=== PATIENT | male | born 1955 | race Caucasian/White ===

== ENCOUNTER → 2016-07-08 | Outpatient (CLI) | payer MEDICARE ==
[~2016-07-08] MED LIST: AMIO200T50 PO; AMIT25TA9 PO; ASP81TEC PO; ATRV10T PO; BUDE6HFA IH; CLPD75T PO; CRV25T PO; DIGO250T PO; DILT240C PO; DLT240CCR PO; ENLP2.5T PO; FLUT16SP22 NS; IPRA4AER INH; MAGN400C PO; MELO-198 PO; NAPR220C PO; NAPR220T76 PO; OXYGEN NSEACH; PNT40TEC PO; RT-COMBINH IH; TIOT18CA IH; TRAM50TA2 PO; WARF4TAB7 PO; WRF2.5T PO; WRF5T PO
[2016-07-08 08:59] LABS: ALANINE AMINOTRANSFERASE 25 U/L (0-55); ALBUMIN 4.2 G/DL (3.2-4.5); ANION GAP 8 MMOL/L (5-14); ASPARTATE AMINO TRANSFERASE 29 U/L (5-34); BILIRUBIN,TOTAL 0.7 MG/DL (0.1-1.0); BLOOD UREA NITROGEN 7 MG/DL (7-18); BUN/CREATININE RATIO 8; CALCIUM 9.3 MG/DL (8.5-10.1); CARBON DIOXIDE 31 MMOL/L (21-32); CHLORIDE 103 MMOL/L (98-107); CHOLESTEROL 147 MG/DL (< 200); CREATININE SERUM 0.83 MG/DL (0.60-1.30); DIRECT LDL 82 MG/DL (1-129); GFR ESTIMATED > 60; GLUCOSE 100 MG/DL (70-105); POTASSIUM 4.4 MMOL/L (3.6-5.0); SODIUM 142 MMOL/L (135-145); TOTAL PROTEIN 7.2 G/DL (6.4-8.2); TRIGLYCERIDES 84 MG/DL (<150); VLDL CHOLESTEROL 17 MG/DL (5-40)
== END ==
LOC: LAB 08:24
PROVIDERS: ATTEND Physician Assistant
DX: I25.10 Atherosclerotic heart disease of native coronary artery without angina pectoris (principal); I10 Essential (primary) hypertension; E78.2 Mixed hyperlipidemia
CPT/HCPCS: 36415; 80053; 80061

== ENCOUNTER → 2017-05-10 | Outpatient (CLI) | payer MEDICARE, MEDICAID | LOC: CARD 11:40 | PROVIDERS: ATTEND Internal Medicine Cardiovascular Disease | DX: I25.10 Atherosclerotic heart disease of native coronary artery without angina pectoris (principal); I11.0 Hypertensive heart disease with heart failure; I50.9 Heart failure, unspecified; R07.89 Other chest pain; E78.2 Mixed hyperlipidemia; R06.02 Shortness of breath; I08.1 Rheumatic disorders of both mitral and tricuspid valves | CPT/HCPCS: 93306 ==

== ENCOUNTER → 2017-09-17 | Outpatient (CLI) | payer MEDICARE, MEDICAID ==
[2017-09-17 11:44] LABS: ALANINE AMINOTRANSFERASE 42 U/L (0-55); ALBUMIN 4.3 GM/DL (3.2-4.5); ALKALINE PHOSPHATASE 68 U/L (40-136); BILIRUBIN,TOTAL 0.7 MG/DL (0.1-1.0); BUN/CREATININE RATIO 9; CALCIUM 9.7 MG/DL (8.5-10.1); CARBON DIOXIDE 27 MMOL/L (21-32); CHLORIDE 102 MMOL/L (98-107); CHOLESTEROL 152 MG/DL (< 200); CREATININE SERUM 0.78 MG/DL (0.60-1.30); GFR ESTIMATED > 60; GLUCOSE 116 MG/DL (70-105); HDL CHOLESTEROL 57 MG/DL (40-60); POTASSIUM 4.4 MMOL/L (3.6-5.0); SODIUM 138 MMOL/L (135-145); TOTAL PROTEIN 7.6 GM/DL (6.4-8.2); TRIGLYCERIDES 57 MG/DL (<150); VLDL CHOLESTEROL 11 MG/DL (5-40)
== END ==
LOC: LAB 11:07
PROVIDERS: ATTEND Physician Assistant
DX: I25.10 Atherosclerotic heart disease of native coronary artery without angina pectoris (principal); I11.0 Hypertensive heart disease with heart failure; I50.9 Heart failure, unspecified; R06.02 Shortness of breath; E78.2 Mixed hyperlipidemia
CPT/HCPCS: 36415; 80053; 80061

== ENCOUNTER → 2017-09-29 | Outpatient (CLI) | payer MEDICAID, MEDICARE ==
[~2017-09-29] VITALS: Ht 182.9 cm; Wt 79.4 kg
[~2017-09-29] MED LIST changes: +CATHETER FLUSH 10 ML SYR IV PRN; +REGADENOSON 0.4 MG/5 ML SYR (LEXISCAN) IV ONE
[2017-09-29 09:05] VITALS: BP 151/97
[2017-09-29 09:07] VITALS: BP 140/90
--- NOTE | 2017-09-29 16:20 | STRESS TEST ---
DATE OF SERVICE: 09/29/2017 LEXISCAN MYOVIEW STRESS TEST REPORT REFERRING PHYSICIAN: Dr. Jackson, [facility]. Baseline heart rate is 84, baseline blood pressure 140/96. Baseline EKG is 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 with no ischemic changes. In summary, the patient received 10.55 mCi of technetium-99 Myoview and the resting images were obtained. Then, the patient received 0.4 mg of Lexiscan followed by 29.3 mCi of technetium-99 Myoview. Throughout the test, there were no EKG changes. The resting and stress images were reviewed and compared in the short axis, horizontal long axis, and vertical long axis views. Review of the images showed good radiotracer uptake with small left ventricle. Mild decreased uptake at the apical region with no significant reversibility. SSS is 2, SDS 1, TID value is 1.11. On the gated images, the left ventricle is normal in size with normal contractility. Calculated ejection fraction 61%. CONCLUSION: 1. The patient tolerated Lexiscan well. 2. Baseline 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 persisted throughout test. 3. Mild decreased uptake at the apical region with no significant reversibility. No significant ischemia or infarction was noted. 4. Normal left ventricular size with normal contractility. Calculated ejection fraction 61%. Gated images are unreliable due to underlying 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. Job ID: [id number] DocumentID: [id number] Dictated Date: 09/29/2017 13:52:09 [employer] Date: 09/29/2017 16:19:15 Dictated By: AIDAN PASTOR MD
== END ==
LOC: CARD 07:04
PROVIDERS: ATTEND Physician Assistant
DX: I25.10 Atherosclerotic heart disease of native coronary artery without angina pectoris (principal); I11.0 Hypertensive heart disease with heart failure; I50.9 Heart failure, unspecified; E78.2 Mixed hyperlipidemia; R06.02 Shortness of breath
CPT/HCPCS: 78452; 93017

== ENCOUNTER 2018-03-30 12:54 | Emergency (ER) | payer MEDICARE ==
[~2018-03-30] VITALS: Ht 193 cm; Wt 69.9 kg
[~2018-03-30 12:54] MED LIST changes: +AMLO10TA7 PO; +ATOR10TA66 PO; +BUDE10.2 INH; +CARV12.53 PO; -CATHETER FLUSH 10 ML SYR IV PRN; +ENAL20TA PO; +FLUT9.9S NS; +LORA10TA76 PO; +NAPR220T66 PO; -REGADENOSON 0.4 MG/5 ML SYR (LEXISCAN) IV ONE; +RIVA20TA PO; +RT-ALBUINH INH; +TIOT18CA2 INH
--- NOTE | 2018-03-30 13:00 | NUR ---
PT AND REPORT PT HAD SPENT 133 AT [facility] AND WAS DISCHARGED ON FEBRUARY 21, 2018. PT REPORTS HE HAD A VATS, PEG TUBE, AND SENT HOME WITH CHEST TUBES. PT REPORTS COUGH THAT STARTED A WEEK AFTER DISCHARGE BUT STARTED COUGHING UP BLOOD THIS AM. PT ALSO REPORTS HE HAS A "SPOT" ON RIGHT LUNG DOCTORS ARE MONITORING.
--- OUTSIDE RECORDS SUMMARY | 2018-03-30 13:57 | XMS REPORT | Clinical Summary ---
Author Author [facility] Organization [facility] Address Unknown Phone Unavailable Care Team Providers Care Circular Sawyer Helper Name Role Phone SebMai Unavailable Unavailable Samir Lopez MD Unavailable Unavailable Samara Lugo RN Unavailable Unavailable Flavio Jackson MD PCP Source Comments Some departments are not documenting in the electronic medical record. If you do not see the information that you expected, contact Release of Information in the Health Information Management department at [phone] for further assistance in locating additional records.[facility] Allergies No Known Allergies Medications End Date Status Medication Sig Dispensed Refills Start Date Active acetaminophen (TYLENOL) Take two 0 500 mg tablet tablets by 9 mouth three times daily as needed. Max of 4,000 mg of acetaminophen in 24 hours. Active ondansetron (ZOFRAN) 4 mg Take one 90 tablet 1 tablet tablet by 9 mouth every 8 hours as needed for Nausea or Vomiting. Active albuterol (PROAIR HFA, Inhale two 6.7 g 0 VENTOLIN HFA, OR puffs by 9 PROVENTIL HFA) 90 mouth into mcg/actuation inhaler the lungs twice daily. Shake well before use. Active umeclidinium-vilanterol Inhale one 60 each 2 (ANORO ELLIPTA) 62.5-25 puff by mouth 9 mcg/actuation inhaler into the lungs daily. Active metoprolol tartrate Take one-half 90 tablet 0 (LOPRESSOR) 25 mg tablet tablet by 9 mouth twice daily. Active digoxin (LANOXIN) 125 mcg Take one 90 tablet 0 tablet tablet by 9 mouth daily. Active vitamin A & D oint Apply 113 g 0 topically to 9 affected area daily. Active guaiFENesin LA (MUCINEX) Take one 180 tablet 0 600 mg tablet tablet by 9 mouth twice daily. Active furosemide (LASIX) 20 mg Take one 90 tablet 1 tablet tablet by 9 mouth twice daily. Active magnesium chloride (MAG Take one 90 each 1 DELAY) 535 mg (64mg tablet by 9 elemental) tablet mouth twice daily. Active vitamins, multi Take one 30 tablet 2 w/minerals 9 mg iron-400 tablet by 9 mcg tab mouth daily. Active fluticasone (FLONASE) 50 Apply two 48 g 3 mcg/actuation nasal spray sprays to 9 each nostril as directed daily. Shake bottle gently before using. Active amoxicillin/K clavulanate Take one 28 tablet 0 (AUGMENTIN) 875/125 mg tablet by 9 tablet mouth twice daily with meals. Take with food. Active melatonin 3 mg tab Take one 0 tablet by 9 mouth at bedtime daily. Active pantoprazole DR Take one 60 tablet 0 (PROTONIX) 40 mg tablet tablet by 9 mouth twice daily. Active bacitracin 500 unit/g apply to ear 28 g 0 topical ointment wounds twice 9 per day Active potassium chloride 20 Take 15 mL by 473 mL 1 mEq/15 mL oral solution mouth daily. 9 Active isavuconazonium sulfate Take two 60 capsule 1 (CRESEMBA) 186 mg capsules by 9 capsuleIndications: mouth daily. aspergillosis 03/04/2018 Discontinued isavuconazonium sulfate Take two 14 capsule 0 (CRESEMBA) 186 mg capsule capsules by 9 mouth daily until gone. 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 Godfrey. CHF (congestive heart failure) 08/15/2012 CAD (coronary artery disease) 08/15/2012 Overview: 03/18/2012 - Cardiac Catheterization: PTCA and PCI using 3.0 x 20mm Promus to the midRCA. ([facility]). Paroxysmal 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 08/15/2012 Overview: 03/17/2012 - ECHO: LVEF ~ 25%. LA size=4.1 cm. Four chamber dilatation with diffuse LV hypokinesia more pronounced at the anterior wall, anteroseptum systolic function is reduced. Moderate MR. Moderate TR. Estimated PAP ~ 35 mmHg. (Dr. Douglass). 12/01/2012 - KHLOE + DCCV: Successful DC cardioversion of 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 to sinus rhythm. 05/04/13 - EPS + RFA: PVAI AFIB Ablation: RFA PV isolation for Paroxysmal Atrial fibrillation The left atrium was mildly enlarged. The PV anatomy was normal with 4 independent veins. . The LSPV had robust and resistant connections requiring prolonged ablation. LA mildly dilated only. Normal AV node function, no evidence of accessory pathway. AFL at 260ms was induced with burst pacing , confirmed to be typical AFL by entrainment from CTI - then CTI ablation was done. CTI ablation with bi-directional isthmus block 05/17/2013 - ECHO: LVEF ~ 50%. LA size=4.8cm. Normal LV size and function. Mild MR and TR. PAP ~ 40 mmHg. (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 Xarelto initiated LA thrombus 08/15/2012 Overview: 06/01/2012 - KHLOE: Dilated LV with EF ~ 30%. Echogenic density in the MARISELA probably representing thrombose persisted compared to the previous study. Mild MR. ([facility]) 07/27/2012 - KHLOE: Persistence of echogenic density in the MARISELA probably representing thrombus in the proximal portion of the LAAA. Dilated LV with EF ~ 25%. ([facility]). 12/01/2012 - KHLOE: Normal left ventricular systolic function with an EF of 50-55%. No regional wall motion abnormalities. Normal right ventricular size and function. Left atrial appendage was free of thrombus. No evidence of PFO. Trace MR. Trace TR. Mildly dilated aortic root measuring 4.0 cm at the Sinus of Valsalva. 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 (current) use of antibiotics 03/04/2018 Orders Only Infectious Diseases Mohan Ayala MD 03/03/2018 Hospital Radiology Encounter Mohan Ayala MD 03/03/2018 Hospital Radiology Encounter Mohan Ayala MD Empyema of right pleural space (HCC) (Primary Dx); Secondary spontaneous pneumothorax; Pneumonia of lower lobe due to infectious organism, unspecified laterality (HCC) ; Surgery follow-up; Chest tube in place 03/03/2018 Office Visit Cardiothoracic Surgery Mohan Ayala MD 03/03/2018 Hospital Radiology Encounter Dalia Ojeda RN Hydropneumothorax (Primary Dx) 02/22/2018 Orders Only Cardiothoracic Surgery Beatriz Pablo MD Critical illness myopathy 02/02/2018 Hospital Rehabilitation - Encounter 02/21/2018 Caity Britton MD 01/28/2018 Anesthesia Event Mohan Ayala MD THORACOSCOPY, DEBRIDEMENT AND DECORTICATION OF RIGHT LUNG 01/28/2018 Surgery Nettie Smith MD Zelalem, Peniel, MD Amos, Luke, MD Latham, MD Denton Fleming Matthew, MD Veeramachaneni, MD Mohan Pneumonia 01/21/2018 Hospital - Encounter 02/02/2018 Briana Alamo DO 01/05/2018 Anesthesia Rehabilitation Event Deandre Dover MD 01/05/2018 Anesthesia Event Deandre Dover MD 01/05/2018 Hospital Radiology Encounter Beatriz Pablo MD Debility 12/31/2017 Hospital Rehabilitation - Encounter 01/21/2018 Caity Laguna MD Hensley, Ramon, Kierra Kerr MD Spikes, MD Myron Howell, MD Jolene Cox, MD Edvin Simeon, MD Yousuf Zelaya, MD Mayela Hogan, MD Edgard Rizo, MD Lluvia Pollard, MD Cristian Pneumonia 11/13/2017 Hospital - Encounter 12/31/2017 from Last 3 Months Immunizations Name Dates Previously Given Next Due Flu Vaccine=>6 Months 12/28/2017 Quadrivalent PF Pneumococcal Vaccine 12/31/2017 (23-Janett Adult) Social History Date Tobacco Use Types Packs/Day Years Used Quit: 11/30/2017 Former Smoker Cigarettes 2 30 Smokeless Tobacco: Former Chew User Comments: down to 1/4 pack /day or less Alcohol Use Drinks/Week oz/Week Comments Yes 6 per week; prior reported as 6-pack per day Sex Assigned at Date Recorded Not on file Industry Job Start Date Occupation Not on file Not on file Not on file Travel End Travel History Travel Start No recent travel history available. Last Filed Vital Signs Time Taken Vital Sign Reading 03/03/2018 10:26 AM DUST COLLECTOR OPERATOR Blood Pressure 110/78 03/03/2018 10:26 AM DUST COLLECTOR OPERATOR Pulse 93 03/03/2018 10:26 AM DUST COLLECTOR OPERATOR Temperature 36.5 C (97.7 F) - Respiratory Rate - 03/03/2018 10:26 AM DUST COLLECTOR OPERATOR Oxygen Saturation 96% - Inhaled Oxygen - Concentration 03/03/2018 10:26 AM DUST COLLECTOR OPERATOR Weight 66.9 kg (147 lb 6.4 oz) 03/03/2018 10:26 AM DUST COLLECTOR OPERATOR Height 182.9 cm (6') 03/03/2018 10:26 AM DUST COLLECTOR OPERATOR Body Mass Index 19.99 Plan of Treatment Health Maintenance Due Date Last Done Comments PHYSICAL (COMPREHENSIVE) 09/08/1962 EXAM DTAP/TDAP VACCINES (1 - 09/08/1973 Tdap) COLORECTAL CANCER 09/08/2005 SCREENING SHINGLES RECOMBINANT 09/08/2005 VACCINE (1 of 2) HIV SCREENING Completed 11/27/2017, 11/16/2017 HEPATITIS C SCREENING Completed 12/27/2017, 12/21/2017, 12/21/2017 INFLUENZA VACCINE Completed 12/28/2017 Procedures Comments Procedure Name Priority Date/Time Associated Diagnosis CHEST 2 VIEWS Routine 03/03/2018 Empyema of right pleural 12:46 PM DUST COLLECTOR OPERATOR space (HCC) Secondary spontaneous pneumothorax Pneumonia of lower lobe due to infectious organism, unspecified laterality (HCC) Surgery follow-up Chest tube in place CT CHEST WO CONTRAST Routine 03/03/2018 Empyema of right pleural 11:30 AM DUST COLLECTOR OPERATOR space (HCC) Secondary spontaneous pneumothorax Pneumonia of lower lobe due to infectious organism, unspecified laterality (HCC) Surgery follow-up Chest tube in place CHEST 2 VIEWS Routine 03/03/2018 Hydropneumothorax 10:10 AM DUST COLLECTOR OPERATOR BASIC METABOLIC PANEL Routine 02/21/2018 CELLULAR THERAPEUTICS 5:55 AM DUST COLLECTOR OPERATOR CBC CELLULAR THERAPEUTICS Routine 02/21/2018 5:55 AM DUST COLLECTOR OPERATOR BASIC METABOLIC PANEL Routine 02/18/2018 CELLULAR THERAPEUTICS 7:27 AM DUST COLLECTOR OPERATOR CBC CELLULAR THERAPEUTICS Routine 02/18/2018 7:27 AM DUST COLLECTOR OPERATOR BASIC METABOLIC PANEL Routine 02/16/2018 CELLULAR THERAPEUTICS 5:57 AM DUST COLLECTOR OPERATOR CBC CELLULAR THERAPEUTICS Routine 02/16/2018 5:57 AM DUST COLLECTOR OPERATOR BASIC METABOLIC PANEL Routine 02/15/2018 6:09 AM DUST COLLECTOR OPERATOR CBC Routine 02/15/2018 6:09 AM DUST COLLECTOR OPERATOR BASIC METABOLIC PANEL Routine 02/14/2018 CELLULAR THERAPEUTICS 5:39 AM DUST COLLECTOR OPERATOR CBC CELLULAR THERAPEUTICS Routine 02/14/2018 5:39 AM DUST COLLECTOR OPERATOR CBC Routine 02/13/2018 6:09 AM DUST COLLECTOR OPERATOR BASIC METABOLIC PANEL Routine 02/13/2018 6:09 AM DUST COLLECTOR OPERATOR CBC Routine 02/12/2018 5:26 AM DUST COLLECTOR OPERATOR BASIC METABOLIC PANEL Routine 02/12/2018 5:26 AM DUST COLLECTOR OPERATOR BASIC METABOLIC PANEL Routine 02/11/2018 CELLULAR THERAPEUTICS 5:50 AM DUST COLLECTOR OPERATOR CBC CELLULAR THERAPEUTICS Routine 02/11/2018 5:50 AM DUST COLLECTOR OPERATOR COMPREHENSIVE METABOLIC Routine 02/10/2018 PANEL 3:35 PM DUST COLLECTOR OPERATOR CBC AND DIFF Routine 02/10/2018 3:35 PM DUST COLLECTOR OPERATOR TRANSFUSE RBC'S Routine 02/09/2018 NON-BLEEDING PT 6:42 PM DUST COLLECTOR OPERATOR GRAM STAIN 02/09/2018 2:30 PM DUST COLLECTOR OPERATOR CULTURE-RESP,LOWER Routine 02/09/2018 W/SENSITIVITY 2:30 PM DUST COLLECTOR OPERATOR UA REFLEX CULTURE LABEL Routine 02/09/2018 2:15 PM DUST COLLECTOR OPERATOR URINALYSIS MICROSCOPIC Routine 02/09/2018 REFLEX TO CULTURE 2:15 PM DUST COLLECTOR OPERATOR URINALYSIS DIPSTICK Routine 02/09/2018 REFLEX TO CULTURE 2:15 PM DUST COLLECTOR OPERATOR CULTURE-BLOOD Routine 02/09/2018 W/SENSITIVITY 10:30 AM DUST COLLECTOR OPERATOR TYPE & CROSSMATCH Routine 02/09/2018 10:00 AM DUST COLLECTOR OPERATOR CULTURE-BLOOD Routine 02/09/2018 W/SENSITIVITY 10:00 AM DUST COLLECTOR OPERATOR BASIC METABOLIC PANEL Routine 02/09/2018 CELLULAR THERAPEUTICS 5:40 AM DUST COLLECTOR OPERATOR CBC CELLULAR THERAPEUTICS Routine 02/09/2018 5:40 AM DUST COLLECTOR OPERATOR BASIC METABOLIC PANEL Routine 02/08/2018 11:21 AM DUST COLLECTOR OPERATOR DIGOXIN LEVEL Routine 02/07/2018 6:03 AM DUST COLLECTOR OPERATOR MAGNESIUM Routine 02/07/2018 6:03 AM DUST COLLECTOR OPERATOR BASIC METABOLIC PANEL Routine 02/07/2018 CELLULAR THERAPEUTICS 6:03 AM DUST COLLECTOR OPERATOR CBC CELLULAR THERAPEUTICS Routine 02/07/2018 6:03 AM DUST COLLECTOR OPERATOR POC GLUCOSE 02/06/2018 11:57 AM DUST COLLECTOR OPERATOR MAGNESIUM Routine 02/06/2018 6:05 AM DUST COLLECTOR OPERATOR BASIC METABOLIC PANEL Routine 02/06/2018 CELLULAR THERAPEUTICS 6:05 AM DUST COLLECTOR OPERATOR CBC CELLULAR THERAPEUTICS Routine 02/06/2018 6:05 AM DUST COLLECTOR OPERATOR BASIC METABOLIC PANEL Routine 02/05/2018 CELLULAR THERAPEUTICS 6:00 AM DUST COLLECTOR OPERATOR CBC CELLULAR THERAPEUTICS Routine 02/05/2018 6:00 AM DUST COLLECTOR OPERATOR BASIC METABOLIC PANEL Routine 02/04/2018 CELLULAR THERAPEUTICS 5:54 AM DUST COLLECTOR OPERATOR CBC CELLULAR THERAPEUTICS Routine 02/04/2018 5:54 AM DUST COLLECTOR OPERATOR ECG 12-LEAD Routine 02/03/2018 12:48 PM DUST COLLECTOR OPERATOR BASIC METABOLIC PANEL Routine 02/03/2018 CELLULAR THERAPEUTICS 5:43 AM DUST COLLECTOR OPERATOR CBC CELLULAR THERAPEUTICS Routine 02/03/2018 5:43 AM DUST COLLECTOR OPERATOR CHEST SINGLE VIEW Routine 02/02/2018 6:24 AM DUST COLLECTOR OPERATOR PHOSPHORUS Routine 02/02/2018 4:39 AM DUST COLLECTOR OPERATOR MAGNESIUM Routine 02/02/2018 4:39 AM DUST COLLECTOR OPERATOR CBC AND DIFF Routine 02/02/2018 4:39 AM DUST COLLECTOR OPERATOR BASIC METABOLIC PANEL Routine 02/02/2018 4:39 AM DUST COLLECTOR OPERATOR EXERCISE OXIMETRY-SCAN 02/02/2018 12:00 AM DUST COLLECTOR OPERATOR SLEEP STUDY-SCAN 02/02/2018 12:00 AM DUST COLLECTOR OPERATOR CHEST SINGLE VIEW Routine 02/01/2018 6:08 AM DUST COLLECTOR OPERATOR PHOSPHORUS Routine 02/01/2018 5:18 AM DUST COLLECTOR OPERATOR MAGNESIUM Routine 02/01/2018 5:18 AM DUST COLLECTOR OPERATOR COMPREHENSIVE METABOLIC Routine 02/01/2018 PANEL 5:18 AM DUST COLLECTOR OPERATOR CBC AND DIFF Routine 02/01/2018 5:18 AM DUST COLLECTOR OPERATOR CT CHEST WO CONTRAST Routine 01/31/2018 5:58 PM DUST COLLECTOR OPERATOR CHEST SINGLE VIEW Routine 01/31/2018 6:13 AM DUST COLLECTOR OPERATOR PHOSPHORUS Routine 01/31/2018 3:30 AM DUST COLLECTOR OPERATOR MAGNESIUM Routine 01/31/2018 3:30 AM DUST COLLECTOR OPERATOR CBC AND DIFF Routine 01/31/2018 3:30 AM DUST COLLECTOR OPERATOR BASIC METABOLIC PANEL Routine 01/31/2018 3:30 AM DUST COLLECTOR OPERATOR CHEST SINGLE VIEW Routine 01/30/2018 6:09 AM DUST COLLECTOR OPERATOR DIGOXIN LEVEL Routine 01/30/2018 3:00 AM DUST COLLECTOR OPERATOR PHOSPHORUS Routine 01/30/2018 3:00 AM DUST COLLECTOR OPERATOR MAGNESIUM Routine 01/30/2018 3:00 AM DUST COLLECTOR OPERATOR COMPREHENSIVE METABOLIC Routine 01/30/2018 PANEL 3:00 AM DUST COLLECTOR OPERATOR CBC AND DIFF Routine 01/30/2018 3:00 AM DUST COLLECTOR OPERATOR CBC AND DIFF STAT 01/29/2018 7:30 AM DUST COLLECTOR OPERATOR PHOSPHORUS Routine 01/29/2018 4:51 AM DUST COLLECTOR OPERATOR MAGNESIUM Routine 01/29/2018 4:51 AM DUST COLLECTOR OPERATOR BASIC METABOLIC PANEL Routine 01/29/2018 4:51 AM DUST COLLECTOR OPERATOR CHEST SINGLE VIEW Routine 01/29/2018 4:26 AM DUST COLLECTOR OPERATOR CHEST SINGLE VIEW ASHIA 01/28/2018 2:05 PM DUST COLLECTOR OPERATOR CULTURE-FUNGAL,OTHER STAT 01/28/2018 Loculated pleural 12:07 PM DUST COLLECTOR OPERATOR effusion GRAM STAIN STAT 01/28/2018 Loculated pleural 12:07 PM DUST COLLECTOR OPERATOR effusion CULTURE-TB (AFB) STAT 01/28/2018 Loculated pleural 12:07 PM DUST COLLECTOR OPERATOR effusion CULTURE-WOUND/TISSUE/FLUI STAT 01/28/2018 Loculated pleural D(AEROBIC 12:07 PM DUST COLLECTOR OPERATOR effusion ONLY)W/SENSITIVITY CULTURE-ANAEROBIC STAT 01/28/2018 Loculated pleural 12:07 PM DUST COLLECTOR OPERATOR effusion CHEST SINGLE VIEW Routine 01/28/2018 4:17 AM DUST COLLECTOR OPERATOR TYPE & CROSSMATCH Routine 01/28/2018 3:10 AM DUST COLLECTOR OPERATOR PHOSPHORUS Routine 01/28/2018 3:10 AM DUST COLLECTOR OPERATOR MAGNESIUM Routine 01/28/2018 3:10 AM DUST COLLECTOR OPERATOR COMPREHENSIVE METABOLIC Routine 01/28/2018 PANEL 3:10 AM DUST COLLECTOR OPERATOR CBC AND DIFF Routine 01/28/2018 3:10 AM DUST COLLECTOR OPERATOR DIGOXIN LEVEL Routine 01/28/2018 3:10 AM DUST COLLECTOR OPERATOR CHEST SINGLE VIEW ASHIA 01/27/2018 9:18 AM DUST COLLECTOR OPERATOR DIGOXIN LEVEL Routine 01/27/2018 3:52 AM DUST COLLECTOR OPERATOR PHOSPHORUS Routine 01/27/2018 3:52 AM DUST COLLECTOR OPERATOR MAGNESIUM Routine 01/27/2018 3:52 AM DUST COLLECTOR OPERATOR CBC AND DIFF Routine 01/27/2018 3:52 AM DUST COLLECTOR OPERATOR BASIC METABOLIC PANEL Routine 01/27/2018 3:52 AM DUST COLLECTOR OPERATOR BASIC METABOLIC PANEL Routine 01/26/2018 2:20 PM DUST COLLECTOR OPERATOR URINALYSIS, MICROSCOPIC STAT 01/26/2018 8:05 AM DUST COLLECTOR OPERATOR URINALYSIS DIPSTICK STAT 01/26/2018 8:05 AM DUST COLLECTOR OPERATOR UREA NITROGEN-URINE STAT 01/26/2018 RANDOM 8:05 AM DUST COLLECTOR OPERATOR CREATININE-URINE RANDOM STAT 01/26/2018 8:05 AM DUST COLLECTOR OPERATOR SODIUM-URINE RANDOM STAT 01/26/2018 8:05 AM DUST COLLECTOR OPERATOR EOSINOPHIL STAIN Specimen 01/26/2018 in Lab 8:05 AM DUST COLLECTOR OPERATOR PHOSPHORUS Routine 01/26/2018 4:30 AM DUST COLLECTOR OPERATOR MAGNESIUM Routine 01/26/2018 4:30 AM DUST COLLECTOR OPERATOR COMPREHENSIVE METABOLIC Routine 01/26/2018 PANEL 4:30 AM DUST COLLECTOR OPERATOR CBC AND DIFF Routine 01/26/2018 4:30 AM DUST COLLECTOR OPERATOR CHEST SINGLE VIEW Routine 01/26/2018 4:18 AM DUST COLLECTOR OPERATOR CT CHEST WO CONTRAST Routine 01/25/2018 12:18 PM DUST COLLECTOR OPERATOR CHEST SINGLE VIEW Routine 01/25/2018 6:14 AM DUST COLLECTOR OPERATOR PHOSPHORUS Routine 01/25/2018 3:38 AM DUST COLLECTOR OPERATOR MAGNESIUM Routine 01/25/2018 3:38 AM DUST COLLECTOR OPERATOR BASIC METABOLIC PANEL Routine 01/25/2018 3:38 AM DUST COLLECTOR OPERATOR CBC AND DIFF Routine 01/25/2018 3:38 AM DUST COLLECTOR OPERATOR PHOSPHORUS Routine 01/24/2018 3:15 AM DUST COLLECTOR OPERATOR MAGNESIUM Routine 01/24/2018 3:15 AM DUST COLLECTOR OPERATOR COMPREHENSIVE METABOLIC Routine 01/24/2018 PANEL 3:15 AM DUST COLLECTOR OPERATOR CBC AND DIFF Routine 01/24/2018 3:15 AM DUST COLLECTOR OPERATOR CHEST SINGLE VIEW Routine 01/24/2018 2:10 AM DUST COLLECTOR OPERATOR VANCOMYCIN TROUGH Routine 01/23/2018 9:19 PM DUST COLLECTOR OPERATOR POTASSIUM Routine 01/23/2018 6:10 PM DUST COLLECTOR OPERATOR MAGNESIUM Routine 01/23/2018 6:10 PM DUST COLLECTOR OPERATOR POTASSIUM Routine 01/23/2018 11:30 AM DUST COLLECTOR OPERATOR MAGNESIUM Routine 01/23/2018 11:30 AM DUST COLLECTOR OPERATOR ECG 12-LEAD Routine 01/23/2018 10:35 AM DUST COLLECTOR OPERATOR PHOSPHORUS Routine 01/23/2018 3:40 AM DUST COLLECTOR OPERATOR MAGNESIUM Routine 01/23/2018 3:40 AM DUST COLLECTOR OPERATOR COMPREHENSIVE METABOLIC Routine 01/23/2018 PANEL 3:40 AM DUST COLLECTOR OPERATOR CBC AND DIFF Routine 01/23/2018 3:40 AM DUST COLLECTOR OPERATOR CHEST SINGLE VIEW ASHIA 01/23/2018 12:36 AM DUST COLLECTOR OPERATOR LDH-LACTATE DEHYDROGENASE Routine 01/23/2018 12:30 AM DUST COLLECTOR OPERATOR PLEURAL FLUID Routine 01/22/2018 TRIGLYCERIDES 7:35 PM DUST COLLECTOR OPERATOR PLEURAL FLUID TOTAL Routine 01/22/2018 PROTEIN 7:35 PM DUST COLLECTOR OPERATOR PLEURAL FLUID PH Routine 01/22/2018 7:35 PM DUST COLLECTOR OPERATOR PLEURAL FLUID LIPASE Routine 01/22/2018 7:35 PM DUST COLLECTOR OPERATOR PLEURAL FLUID GLUCOSE Routine 01/22/2018 7:35 PM DUST COLLECTOR OPERATOR PLEURAL FLUID LACTATE Routine 01/22/2018 DEHYDROGENASE 7:35 PM DUST COLLECTOR OPERATOR PLEURAL FLUID CHOLESTEROL Routine 01/22/2018 7:35 PM DUST COLLECTOR OPERATOR PLEURAL FLUID TOTAL Routine 01/22/2018 BILIRUBIN 7:35 PM DUST COLLECTOR OPERATOR PLEURAL FLUID AMYLASE Routine 01/22/2018 7:35 PM DUST COLLECTOR OPERATOR PLEURAL FLUID ALBUMIN Routine 01/22/2018 7:35 PM DUST COLLECTOR OPERATOR CELL COUNT W/DIFF-FLUIDS Routine 01/22/2018 7:35 PM DUST COLLECTOR OPERATOR CULTURE-TB (AFB) Routine 01/22/2018 7:35 PM DUST COLLECTOR OPERATOR CULTURE-FUNGAL,OTHER Routine 01/22/2018 7:35 PM DUST COLLECTOR OPERATOR GRAM STAIN Routine 01/22/2018 7:35 PM DUST COLLECTOR OPERATOR CULTURE-WOUND/TISSUE/FLUI Routine 01/22/2018 D(AEROBIC 7:35 PM DUST COLLECTOR OPERATOR ONLY)W/SENSITIVITY LACTIC ACID (BG - RAPID 01/22/2018 LACTATE) 7:15 PM DUST COLLECTOR OPERATOR O2 SATURATION, CENTRAL Routine 01/22/2018 VENOUS 7:15 PM DUST COLLECTOR OPERATOR CHEST SINGLE VIEW Routine 01/22/2018 6:57 PM DUST COLLECTOR OPERATOR LINE PLCMT 1V CXR STAT 01/22/2018 6:20 PM DUST COLLECTOR OPERATOR CHEST TUBE INSERTION Routine 01/22/2018 6:14 PM DUST COLLECTOR OPERATOR CHEST SINGLE VIEW STAT 01/22/2018 5:06 PM DUST COLLECTOR OPERATOR CHEST TUBE INSERTION Routine 01/22/2018 5:02 PM DUST COLLECTOR OPERATOR GRAM STAIN 01/22/2018 9:34 AM DUST COLLECTOR OPERATOR PHOSPHORUS Routine 01/22/2018 4:56 AM DUST COLLECTOR OPERATOR MAGNESIUM Routine 01/22/2018 4:56 AM DUST COLLECTOR OPERATOR COMPREHENSIVE METABOLIC Routine 01/22/2018 PANEL 4:56 AM DUST COLLECTOR OPERATOR CBC AND DIFF Routine 01/22/2018 4:56 AM DUST COLLECTOR OPERATOR BASIC METABOLIC PANEL Routine 01/21/2018 10:56 PM DUST COLLECTOR OPERATOR CULTURE-FUNGAL,BLOOD 01/21/2018 W/SENSITIVITY 10:56 PM DUST COLLECTOR OPERATOR CULTURE-BLOOD Routine 01/21/2018 W/SENSITIVITY 10:56 PM DUST COLLECTOR OPERATOR CT CHEST WO CONTRAST Routine 01/21/2018 3:08 PM DUST COLLECTOR OPERATOR CULTURE-BLOOD Routine 01/21/2018 W/SENSITIVITY 2:01 PM DUST COLLECTOR OPERATOR BASIC METABOLIC PANEL Routine 01/21/2018 CELLULAR THERAPEUTICS 5:35 AM DUST COLLECTOR OPERATOR CBC CELLULAR THERAPEUTICS Routine 01/21/2018 5:35 AM DUST COLLECTOR OPERATOR TELEMETRY STRIPS-SCAN 01/21/2018 12:00 AM DUST COLLECTOR OPERATOR BASIC METABOLIC PANEL Routine 01/20/2018 5:08 AM DUST COLLECTOR OPERATOR CULTURE-BLOOD Routine 01/19/2018 W/SENSITIVITY 3:50 PM DUST COLLECTOR OPERATOR CULTURE-BLOOD Routine 01/19/2018 W/SENSITIVITY 3:47 PM DUST COLLECTOR OPERATOR MAGNESIUM Add on 01/19/2018 6:15 AM DUST COLLECTOR OPERATOR BASIC METABOLIC PANEL Routine 01/19/2018 CELLULAR THERAPEUTICS 6:15 AM DUST COLLECTOR OPERATOR CBC CELLULAR THERAPEUTICS Routine 01/19/2018 6:15 AM DUST COLLECTOR OPERATOR CBC Routine 01/18/2018 10:35 AM DUST COLLECTOR OPERATOR BASIC METABOLIC PANEL Routine 01/18/2018 10:35 AM DUST COLLECTOR OPERATOR BASIC METABOLIC PANEL Routine 01/17/2018 CELLULAR THERAPEUTICS 6:05 AM DUST COLLECTOR OPERATOR CBC CELLULAR THERAPEUTICS Routine 01/17/2018 6:05 AM DUST COLLECTOR OPERATOR CMV QUANT PCR-BLOOD Routine 01/17/2018 6:05 AM DUST COLLECTOR OPERATOR CULTURE-BLOOD STAT 01/16/2018 W/SENSITIVITY 3:35 PM DUST COLLECTOR OPERATOR CULTURE-BLOOD STAT 01/16/2018 W/SENSITIVITY 3:30 PM DUST COLLECTOR OPERATOR CHEST SINGLE VIEW Routine 01/16/2018 11:22 AM DUST COLLECTOR OPERATOR UA REFLEX CULTURE LABEL Routine 01/16/2018 11:00 AM DUST COLLECTOR OPERATOR URINALYSIS MICROSCOPIC Routine 01/16/2018 REFLEX TO CULTURE 11:00 AM DUST COLLECTOR OPERATOR URINALYSIS DIPSTICK Routine 01/16/2018 REFLEX TO CULTURE 11:00 AM DUST COLLECTOR OPERATOR COMPREHENSIVE METABOLIC Routine 01/16/2018 PANEL 10:51 AM DUST COLLECTOR OPERATOR CBC AND DIFF Routine 01/16/2018 10:51 AM DUST COLLECTOR OPERATOR GRAM STAIN 01/16/2018 10:33 AM DUST COLLECTOR OPERATOR CULTURE-RESP,LOWER Routine 01/16/2018 W/SENSITIVITY 10:33 AM DUST COLLECTOR OPERATOR BASIC METABOLIC PANEL Routine 01/14/2018 CELLULAR THERAPEUTICS 6:15 AM DUST COLLECTOR OPERATOR CBC CELLULAR THERAPEUTICS Routine 01/14/2018 6:15 AM DUST COLLECTOR OPERATOR BASIC METABOLIC PANEL Routine 01/12/2018 CELLULAR THERAPEUTICS 6:10 AM DUST COLLECTOR OPERATOR CBC CELLULAR THERAPEUTICS Routine 01/12/2018 6:10 AM DUST COLLECTOR OPERATOR CBC AND DIFF Routine 01/10/2018 6:05 AM DUST COLLECTOR OPERATOR COMPREHENSIVE METABOLIC Routine 01/10/2018 PANEL 6:05 AM DUST COLLECTOR OPERATOR CMV QUANT PCR-BLOOD Routine 01/10/2018 6:05 AM DUST COLLECTOR OPERATOR TELEMETRY STRIPS-SCAN 01/08/2018 1:28 PM DUST COLLECTOR OPERATOR TELEMETRY STRIPS-SCAN 01/08/2018 7:26 AM DUST COLLECTOR OPERATOR BASIC METABOLIC PANEL Routine 01/07/2018 CELLULAR THERAPEUTICS 5:50 AM DUST COLLECTOR OPERATOR CBC CELLULAR THERAPEUTICS Routine 01/07/2018 5:50 AM DUST COLLECTOR OPERATOR ANESTHESIA PERIPHERAL Routine 01/05/2018 NERVE BLOCK 12:34 PM DUST COLLECTOR OPERATOR ECG-SCAN 01/05/2018 10:10 AM DUST COLLECTOR OPERATOR BASIC METABOLIC PANEL Routine 01/05/2018 CELLULAR THERAPEUTICS 5:45 AM DUST COLLECTOR OPERATOR CBC CELLULAR THERAPEUTICS Routine 01/05/2018 5:45 AM DUST COLLECTOR OPERATOR BASIC METABOLIC PANEL Routine 01/04/2018 CELLULAR THERAPEUTICS 5:45 AM DUST COLLECTOR OPERATOR CBC CELLULAR THERAPEUTICS Routine 01/04/2018 5:45 AM DUST COLLECTOR OPERATOR COMPREHENSIVE METABOLIC Routine 01/03/2018 PANEL 6:11 AM DUST COLLECTOR OPERATOR CMV QUANT PCR-BLOOD Routine 01/03/2018 6:11 AM DUST COLLECTOR OPERATOR CBC CELLULAR THERAPEUTICS Routine 01/03/2018 6:11 AM DUST COLLECTOR OPERATOR ECG-SCAN 01/02/2018 2:34 PM DUST COLLECTOR OPERATOR BASIC METABOLIC PANEL Routine 01/02/2018 CELLULAR THERAPEUTICS 6:10 AM DUST COLLECTOR OPERATOR CBC CELLULAR THERAPEUTICS Routine 01/02/2018 6:10 AM DUST COLLECTOR OPERATOR CHEST SINGLE VIEW STAT 01/02/2018 1:15 AM DUST COLLECTOR OPERATOR POC IONIZED CALCIUM 01/02/2018 12:57 AM DUST COLLECTOR OPERATOR POC SODIUM 01/02/2018 12:57 AM DUST COLLECTOR OPERATOR POC POTASSIUM 01/02/2018 12:57 AM DUST COLLECTOR OPERATOR POC HEMATOCRIT 01/02/2018 12:57 AM DUST COLLECTOR OPERATOR POC BLOOD GAS ARTERIAL 01/02/2018 12:57 AM DUST COLLECTOR OPERATOR LACTIC ACID (BG - RAPID Routine 01/02/2018 LACTATE) 12:40 AM DUST COLLECTOR OPERATOR PHOSPHORUS Code 01/02/2018 12:40 AM DUST COLLECTOR OPERATOR MAGNESIUM Code 01/02/2018 12:40 AM DUST COLLECTOR OPERATOR TROPONIN-I Code 01/02/2018 12:40 AM DUST COLLECTOR OPERATOR COMPREHENSIVE METABOLIC Code 01/02/2018 PANEL 12:40 AM DUST COLLECTOR OPERATOR PTT (APTT) Code 01/02/2018 12:40 AM DUST COLLECTOR OPERATOR PROTIME INR (PT) Code 01/02/2018 12:40 AM DUST COLLECTOR OPERATOR CBC Code 01/02/2018 12:40 AM DUST COLLECTOR OPERATOR BASIC METABOLIC PANEL Routine 01/01/2018 CELLULAR THERAPEUTICS 6:14 AM DUST COLLECTOR OPERATOR CBC CELLULAR THERAPEUTICS Routine 01/01/2018 6:14 AM DUST COLLECTOR OPERATOR CHEST SINGLE VIEW Routine 12/31/2017 6:31 AM DUST COLLECTOR OPERATOR MAGNESIUM Routine 12/31/2017 5:00 AM DUST COLLECTOR OPERATOR COMPREHENSIVE METABOLIC Routine 12/31/2017 PANEL 5:00 AM DUST COLLECTOR OPERATOR CBC Routine 12/31/2017 5:00 AM DUST COLLECTOR OPERATOR MAGNESIUM Routine 12/30/2017 4:00 AM DUST COLLECTOR OPERATOR COMPREHENSIVE METABOLIC Routine 12/30/2017 PANEL 4:00 AM DUST COLLECTOR OPERATOR CBC Routine 12/30/2017 4:00 AM DUST COLLECTOR OPERATOR CHEST SINGLE VIEW Routine 12/29/2017 3:18 PM DUST COLLECTOR OPERATOR CHEST SINGLE VIEW Routine 12/29/2017 6:57 AM DUST COLLECTOR OPERATOR MAGNESIUM Routine 12/29/2017 3:50 AM DUST COLLECTOR OPERATOR COMPREHENSIVE METABOLIC Routine 12/29/2017 PANEL 3:50 AM DUST COLLECTOR OPERATOR CBC Routine 12/29/2017 3:50 AM DUST COLLECTOR OPERATOR CHEST SINGLE VIEW Routine 12/28/2017 6:50 AM DUST COLLECTOR OPERATOR BONE ALKALINE PHOSPHATASE Routine 12/28/2017 3:50 AM DUST COLLECTOR OPERATOR PHOSPHORUS STAT 12/28/2017 3:50 AM DUST COLLECTOR OPERATOR MAGNESIUM STAT 12/28/2017 3:50 AM DUST COLLECTOR OPERATOR COMPREHENSIVE METABOLIC STAT 12/28/2017 PANEL 3:50 AM DUST COLLECTOR OPERATOR CBC AND DIFF STAT 12/28/2017 3:50 AM DUST COLLECTOR OPERATOR from Last 3 Months Results * CHEST 2 VIEWS (03/03/2018 12:46 PM DUST COLLECTOR OPERATOR) Only the most recent of 2 results within the time period is included. Impressions Performed At 1.Removal of 2 right-sided chest tubes without significant change in small [facility] right hydropneumothorax. 2.Stable patchy consolidation in both lungs. Approved by Ramon Baird M.D. on 03/03/2018 3:08 PM By my electronic signature, I attest that I have personally reviewed the images for this examination and formulated the interpretations and opinions expressed in this report Finalized by GABRIELA WALLIS M.D. on 03/03/2018 4:26 PM. Dictated by Ramon Baird M.D. on 03/03/2018 1:03 PM. Narrative Performed At CHEST 2 VIEWS [facility] Clinical Indication: Male, 62 years old. Empyema right pleural space. Secondary spontaneous pneumothorax. Pneumonia of lower lobe due to infectious organism. Surgery follow-up. Comparison: Chest x-ray March 03, 2017 Findings: Interval removal of 2 right-sided chest tubes. The cardiomediastinal silhouette is within normal limits. No pulmonary vascular congestion. No significant change in small loculated right hydropneumothorax. No significant change in patchy consolidation in bilateral lungs, greatest in the right upper lobe. Procedure Note Interface, Radiant Results - 03/03/2018 4:29 PM DUST COLLECTOR OPERATOR CHEST 2 VIEWS Clinical Indication: Male, 62 years old. Empyema right pleural space. Secondary spontaneous pneumothorax. Pneumonia of lower lobe due to infectious organism. Surgery follow-up. Comparison: Chest x-ray March 03, 2017 Findings: Interval removal of 2 right-sided chest tubes. The cardiomediastinal silhouette is within normal limits. No pulmonary vascular congestion. No significant change in small loculated right hydropneumothorax. No significant change in patchy consolidation in bilateral lungs, greatest in the right upper lobe. IMPRESSION 1. Removal of 2 right-sided chest tubes without significant change in small right hydropneumothorax. 2. Stable patchy consolidation in both lungs. Approved by Ramon Baird M.D. on 03/03/2018 3:08 PM By my electronic signature, I attest that I have personally reviewed the images for this examination and formulated the interpretations and opinions expressed in this report Finalized by GABRIELA WALLIS M.D. on 03/03/2018 4:26 PM. Dictated by Ramon Baird M.D. on 03/03/2018 1:03 PM. Performing Organization Address City/State/Zipcode Phone Number [facility] * CT CHEST WO CONTRAST (03/03/2018 11:30 AM DUST COLLECTOR OPERATOR) Only the most recent of 4 results within the time period is included. Impressions Performed At 1. Slight decrease in size of a small, loculated right hydropneumothorax. [facility] 2. Further decrease in patchy areas of consolidation and groundglass opacity within both lungs, likely improving pneumonia. 3. Persistent small nodular areas of consolidation the left lower lobe, which is slightly decreased in size since December 2017 and are likely infectious. Follow-up CT chest within approximately 3 months is recommended for reevaluation. 4. Resolution of a left pleural effusion. 5. Marked emphysema. Finalized by GABRIELA WALLIS M.D. on 03/03/2018 12:12 PM. Dictated by GABRIELA WALLIS M.D. on 03/03/2018 11:47 AM. Narrative Performed At CT Chest [facility] . Clinical Indication:Male, 62 years old. Empyema right pleural space. Pneumonia lower lobe due to infectious organism, unspecified laterality. Technique: Multiple contiguous axial CT images were obtained through the chest without IV contrast. Post processing coronal and sagittal reconstruction images were made from the axial images. IV contrast: None. Comparison: CT chest 01/31/2018 . Findings: Evaluation of the mediastinum and linn, including the vasculature and for lymphadenopathy, is limited without the use of IV contrast. Axilla, Mediastinum and Linn: There is no axillary adenopathy. Few prominent mediastinal nodes appear unchanged and are likely reactive. Heart and Great Vessels: The heart size is within normal limits without significant pericardial effusion. At least moderate coronary artery calcification is present. A right PICC has been removed. Airway, Lungs and Pleura: There is marked emphysema. Two right thoracostomy tubes remain in place. There has been slight decrease in size of a small, complex right hydropneumothorax. There has been decrease in size of a focal area of cavitary consolidation within the right upper lobe. Additional patchy areas of consolidation and groundglass opacity within the right lung and left upper lobe have also improved. Few small areas of nodular consolidation are again seen within the left lower lobe (for example images 35 and 38 series 3), which have not significantly changed since the prior exam, however have slightly decreased in size since December 20, 2017. A left pleural effusion has resolved. Upper Abdomen: Unremarkable. Chest Wall and Osseous Structures: Healing sternal and bilateral rib fractures are again noted. . Procedure Note Interface, Radiant Results - 03/03/2018 12:15 PM DUST COLLECTOR OPERATOR CT Chest . Clinical Indication: Male, 62 years old. Empyema right pleural space. Pneumonia lower lobe due to infectious organism, unspecified laterality. Technique: Multiple contiguous axial CT images were obtained through the chest without IV contrast. Post processing coronal and sagittal reconstruction images were made from the axial images. IV contrast: None. Comparison: CT chest 01/31/2018 . Findings: Evaluation of the mediastinum and linn, including the vasculature and for lymphadenopathy, is limited without the use of IV contrast. Axilla, Mediastinum and Linn: There is no axillary adenopathy. Few prominent mediastinal nodes appear unchanged and are likely reactive. Heart and Great Vessels: The heart size is within normal limits without significant pericardial effusion. At least moderate coronary artery calcification is present. A right PICC has been removed. Airway, Lungs and Pleura: There is marked emphysema. Two right thoracostomy tubes remain in place. There has been slight decrease in size of a small, complex right hydropneumothorax. There has been decrease in size of a focal area of cavitary consolidation within the right upper lobe. Additional patchy areas of consolidation and groundglass opacity within the right lung and left upper lobe have also improved. Few small areas of nodular consolidation are again seen within the left lower lobe (for example images 35 and 38 series 3), which have not significantly changed since the prior exam, however have slightly decreased in size since December 20, 2017. A left pleural effusion has resolved. Upper Abdomen: Unremarkable. Chest Wall and Osseous Structures: Healing sternal and bilateral rib fractures are again noted. . IMPRESSION 1. Slight decrease in size of a small, loculated right hydropneumothorax. 2. Further decrease in patchy areas of consolidation and groundglass opacity within both lungs, likely improving pneumonia. 3. Persistent small nodular areas of consolidation the left lower lobe, which is slightly decreased in size since December 2017 and are likely infectious. Follow-up CT chest within approximately 3 months is recommended for reevaluation. 4. Resolution of a left pleural effusion. 5. Marked emphysema. Finalized by GABRIELA WALLIS M.D. on 03/03/2018 12:12 PM. Dictated by GABRIELA WALLIS M.D. on 03/03/2018 11:47 AM. Performing Organization Address City/[facility]/Zipcode Phone Number RAD RESULTS * BASIC METABOLIC PANEL [employer] (02/21/2018 5:55 AM DUST COLLECTOR OPERATOR) Only the most recent of 21 results within the time period is included. Sodium 137 137 - 147 MMOL/L [facility] Potassium 3.1 (L) 3.5 - 5.1 MMOL/L [facility] Chloride 104 98 - 110 MMOL/L [facility] CO2 29 21 - 30 MMOL/L [facility] Anion Gap 4 3 - 12 [facility] Glucose 94 70 - 100 MG/DL [facility] Blood Urea Nitrogen 6 (L) 7 - 25 MG/DL [facility] Creatinine 0.74 0.4 - 1.24 MG/DL [facility] Calcium 8.4 (L) 8.5 - 10.6 MG/DL [facility] eGFR Non >60 >60 mL/min [facility] Comment: The eGFR is not validated for use in drug dosing adjustments.Continue to use estimated creatinine clearance per dosing reference text.Please contact the Clinical Pharmacist for questions. eGFR >60 >60 mL/min [facility] Comment: The eGFR is not validated for use in drug dosing adjustments.Continue to use estimated creatinine clearance per dosing reference text.Please contact the Clinical Pharmacist for questions. Specimen Blood Performing Organization Address City/[facility]/Zipcode Phone Number MAIN LAB [address] [place] [address] * CBC CELLULAR THERAPEUTICS (02/21/2018 5:55 AM DUST COLLECTOR OPERATOR) Only the most recent of 22 results within the time period is included. White Blood Cells 9.1 4.5 - 11.0 K/UL [facility] RBC 2.48 (L) 4.4 - 5.5 M/UL [facility] Hemoglobin 8.0 (L) 13.5 - 16.5 GM/DL [facility] Hematocrit 24.0 (L) 40 - 50 % [facility] MCV 96.6 80 - 100 FL [facility] MCH 32.1 26 - 34 PG [facility] MCHC 33.2 32.0 - 36.0 G/DL [facility] RDW 19.8 (H) 11 - 15 % [facility] Platelet Count 398 150 - 400 K/UL [facility] MPV 6.7 (L) 7 - 11 FL [facility] Specimen Blood Performing Organization Address [facility] Phone Number [facility] [address] [place] [address] * CBC (02/15/2018 6:09 AM DUST COLLECTOR OPERATOR) Only the most recent of 8 results within the time period is included. White Blood Cells 6.9 4.5 - 11.0 K/UL [facility] RBC 2.47 (L) 4.4 - 5.5 M/UL [facility] Hemoglobin 8.0 (L) 13.5 - 16.5 GM/DL [facility] Hematocrit 24.2 (L) 40 - 50 % [facility] MCV 98.1 80 - 100 FL [facility] MCH 32.2 26 - 34 PG [facility] MCHC 32.8 32.0 - 36.0 G/DL MAIN LAB RDW 20.2 (H) 11 - 15 % [facility] Platelet Count 453 (H) 150 - 400 K/UL [facility] MPV 7.1 7 - 11 FL [facility] Specimen Blood Performing Organization Address City/[facility]/Zipcode Phone Number [facility] [address] [place] [address] * BASIC METABOLIC PANEL (02/15/2018 6:09 AM DUST COLLECTOR OPERATOR) Only the most recent of 13 results within the time period is included. Sodium 137 137 - 147 MMOL/L [facility]IN LAB Potassium 3.3 (L) 3.5 - 5.1 MMOL/L [facility] Chloride 106 98 - 110 MMOL/L [facility] CO2 27 21 - 30 MMOL/L [facility] Anion Gap 4 3 - 12 [facility] Glucose 80 70 - 100 MG/DL [facility] Blood Urea Nitrogen 8 7 - 25 MG/DL [facility] Creatinine 0.86 0.4 - 1.24 MG/DL [facility] Calcium 7.8 (L) 8.5 - 10.6 MG/DL [facility] eGFR Non >60 >60 mL/min [facility] Comment: The eGFR is not validated for use in drug dosing adjustments.Continue to use estimated creatinine clearance per dosing reference text.Please contact the Clinical Pharmacist for questions. eGFR >60 >60 mL/min [facility] Comment: The eGFR is not validated for use in drug dosing adjustments.Continue to use estimated creatinine clearance per dosing reference text.Please contact the Clinical Pharmacist for questions. Specimen Blood Performing Organization Address City/State/Zipcode Phone Number [facility] [address] [place] [address] * CBC AND DIFF (02/10/2018 3:35 PM DUST COLLECTOR OPERATOR) Only the most recent of 16 results within the time period is included. White Blood Cells 9.3 4.5 - 11.0 K/UL [facility] RBC 2.38 (L) 4.4 - 5.5 M/UL [facility] Hemoglobin 7.8 (L) 13.5 - 16.5 GM/DL [facility] Hematocrit 23.3 (L) 40 - 50 % [facility] MCV 97.9 80 - 100 FL [facility] MCH 32.7 26 - 34 PG [facility] MCHC 33.4 32.0 - 36.0 G/DL [facility] RDW 21.6 (H) 11 - 15 % [facility] Platelet Count 358 150 - 400 K/UL [facility] MPV 7.2 7 - 11 FL [facility] Neutrophils 79 (H) 41 - 77 % [facility] Lymphocytes 7 (L) 24 - 44 % [facility] Monocytes 13 (H) 4 - 12 % [facility] Eosinophils 0 0 - 5 % [facility] Basophils 1 0 - 2 % [facility] Absolute Neutrophil Count 7.30 (H) 1.8 - 7.0 K/UL [facility] Absolute Lymph Count 0.70 (L) 1.0 - 4.8 K/UL [facility] Absolute Monocyte Count 1.20 (H) 0 - 0.80 K/UL [facility] Absolute Eosinophil Count 0.00 0 - 0.45 K/UL [facility] Absolute Basophil Count 0.10 0 - 0.20 K/UL [facility] Specimen Blood Performing Organization Address City/[facility] Phone Number [facility] [address] [place] [address] * COMPREHENSIVE METABOLIC PANEL (02/10/2018 3:35 PM DUST COLLECTOR OPERATOR) Only the most recent of 16 results within the time period is included. Sodium 133 (L) 137 - 147 MMOL/L [facility] Potassium 3.6 3.5 - 5.1 MMOL/L [facility] Chloride 100 98 - 110 MMOL/L [facility] Glucose 142 (H) 70 - 100 MG/DL [facility] Blood Urea Nitrogen 10 7 - 25 MG/DL [facility] Creatinine 0.97 0.4 - 1.24 MG/DL [facility] Calcium 7.9 (L) 8.5 - 10.6 MG/DL [facility] Total Protein 6.2 6.0 - 8.0 G/DL [facility] Total Bilirubin 0.2 (L) 0.3 - 1.2 MG/DL [facility] Albumin 2.0 (L) 3.5 - 5.0 G/DL [facility] Alk Phosphatase 125 (H) 25 - 110 U/L [facility] AST (SGOT) 15 7 - 40 U/L [facility] CO2 29 21 - 30 MMOL/L [facility] ALT (SGPT) 6 (L) 7 - 56 U/L [facility] Anion Gap 4 3 - 12 [facility] eGFR Non >60 >60 mL/min [facility] Comment: The eGFR is not validated for use in drug dosing adjustments.Continue to use estimated creatinine clearance per dosing reference text.Please contact the Clinical Pharmacist for questions. eGFR >60 >60 mL/min [facility] Comment: The eGFR is not validated for use in drug dosing adjustments.Continue to use estimated creatinine clearance per dosing reference text.Please contact the Clinical Pharmacist for questions. Specimen Blood Performing Organization Address [facility] Cent[facility]ode Phone Number MAIN LAB [address] [place] [address] * TRANSFUSE RBC'S NON-BLEEDING PT (02/09/2018 6:42 PM DUST COLLECTOR OPERATOR) Only the most recent of 2 results within the time period is included. * GRAM STAIN (02/09/2018 2:30 PM DUST COLLECTOR OPERATOR) Only the most recent of 5 results within the time period is included. Battery Name GRAM STAIN [facility] Specimen Description SPUTUM MAIN LAB Special Requests NONE [facility] Gram Stain LESS THAN 10/LPF [facility] NEUTROPHILS LESS THAN 10/LPF SQUAMOUS EPITHELIAL CELLS MODERATE MIXED BACTERIA Report Status FINAL [facility]IN LAB 02/09/2018 Specimen Sputum Performing Organization Address [facility] [place] Phone Number [facility] [address] [place] [address] * CULTURE-RESP,LOWER W/SENSITIVITY (02/09/2018 2:30 PM DUST COLLECTOR OPERATOR) Only the most recent of 2 results within the time period is included. Battery Name LOWER RESP CULTURE MAIN LAB Specimen Description SPUTUM MAIN LAB Special Requests NONE MAIN LAB Direct Gram Stain LESS THAN 10/LPF MAIN LAB NEUTROPHILS LESS THAN 10/LPF SQUAMOUS EPITHELIAL CELLS MODERATE MIXED BACTERIA Culture Moderate growth MAIN LAB NORMAL OROPHARYNGEAL ALVARO Report Status FINAL [facility] 02/11/2018 Specimen Sputum Performing Organization Address [facility] [place] Phone Number [facility] LAB [address] [place] [address] * UA REFLEX CULTURE LABEL (02/09/2018 2:15 PM DUST COLLECTOR OPERATOR) Only the most recent of 2 results within the time period is included. UA Reflex Culture LAB LABEL MAIN LAB Specimen Urine Performing Organization Address [facility] [place] Phone Number [facility] [address] [place] [address] * URINALYSIS MICROSCOPIC REFLEX TO CULTURE (02/09/2018 2:15 PM DUST COLLECTOR OPERATOR) Only the most recent of 2 results within the time period is included. WBCs,UA 2-10 0 - 2 /HPF MAIN LAB RBCs,UA 0-2 0 - 3 /HPF MAIN LAB Comment,UA Urine submitted for reflex MAIN LAB culture if criteria are met:WBC>10, positive nitrite and/or >=1+ leukocyte esterase. If quantity is not sufficient, an addendum will follow. Squamous Epithelial Cells 0-2 0 - 5 MAIN LAB Specimen Urine Performing Organization Address [facility]/Zipcode Phone Number MAIN LAB [address] [place] [address] * URINALYSIS DIPSTICK REFLEX TO CULTURE (02/09/2018 2:15 PM DUST COLLECTOR OPERATOR) Only the most recent of 2 results within the time period is included. Color,UA YELLOW MAIN LAB Turbidity,UA CLEAR CLEAR-CLEAR MAIN LAB Specific [place]-Urine 1.014 1.003 - 1.035 MAIN LAB pH,UA 7.0 5.0 - 8.0 MAIN LAB Protein,UA NEG NEG-NEG MAIN LAB Glucose,UA NEG NEG-NEG MAIN LAB Ketones,UA NEG NEG-NEG MAIN LAB Bilirubin,UA NEG NEG-NEG MAIN LAB Blood,UA NEG NEG-NEG MAIN LAB Urobilinogen,UA NORMAL NORM-NORMAL MAIN LAB Nitrite,UA NEG NEG-NEG MAIN LAB Leukocytes,UA NEG NEG-NEG MAIN LAB Urine Ascorbic Acid, UA POS (A) NEG-NEG MAIN LAB Comment: Ascorbic acid is found in various food supplies and dietary supplements, and is reported to cause strong interference with Macroscopic Urinalysis testing for glucose, blood and nitrite, and can result in a false negative result. Specimen Urine Performing Organization Address [facility]/Zipcode Phone Number [facility] [address] [place] [address] * CULTURE-BLOOD W/SENSITIVITY (02/09/2018 10:30 AM DUST COLLECTOR OPERATOR) Only the most recent of 8 results within the time period is included. Battery Name BLOOD CULTURE MAIN LAB Specimen Description BLOOD MAIN LAB LEFT HAND Special Requests NONE MAIN LAB Culture NO GROWTH 5 DAYS MAIN LAB Report Status FINAL MAIN LAB 02/15/2018 Specimen Blood Performing Organization Address City/[facility]/Zipcode Phone Number MAIN LAB [address] [place] [phone] * TYPE & CROSSMATCH (02/09/2018 10:00 AM DUST COLLECTOR OPERATOR) Only the most recent of 2 results within the time period is included. Units Ordered 1 MAIN LAB Crossmatch Expires 02/12/2018 MAIN LAB Record Check FOUND [facility] ABO/RH(D) O POS MAIN LAB Antibody Screen NEG MAIN LAB Electronic Crossmatch YES MAIN LAB Unit Number [id number] [facility] Blood Component Type RBC,ADSOL,LEUKO REDUCED,1ST [facility] CONT. Unit Division 0 [facility] Status OF Unit TRANSFUSED [facility] Transfusion Status OK TO TRANSFUSE [facility] Crossmatch Result COMPATIBLE,ELECTRONIC [facility] Specimen Blood Performing Organization Address [facility] [place] Phone Number [facility] [address] [place] [address] * MAGNESIUM (02/07/2018 6:03 AM DUST COLLECTOR OPERATOR) Only the most recent of 22 results within the time period is included. Magnesium 2.0 1.6 - 2.6 mg/dL [facility] Specimen Blood Performing Organization Address [facility] Phone Number MAIN LAB [address] [place] [address] * DIGOXIN LEVEL (02/07/2018 6:03 AM DUST COLLECTOR OPERATOR) Only the most recent of 4 results within the time period is included. Digoxin 1.0 0.5 - 1.0 NG/ML [facility] Specimen Blood Performing Organization Address [facility] [place] Phone Number [facility] [address] [place] [address] * POC GLUCOSE (02/06/2018 11:57 AM DUST COLLECTOR OPERATOR) Glucose, POC 122 (H) 70 - 100 MG/DL [facility] Performing Organization Address [facility] [place] Phone Number [facility] [address] [place] [address] * CHEST SINGLE VIEW (02/02/2018 6:24 AM DUST COLLECTOR OPERATOR) Only the most recent of 20 results within the time period is included. Impressions Performed At 1. Similar diffuse right lung and patchy left lung opacities likely multifocal [facility] RES[facility] infection. 2. Stable right pleural effusion without definite pneumothorax. Previously visualized air-fluid levels not well seen. Finalized by Jony Salas M.D. on 02/02/2018 9:53 AM. Dictated by Jony Salas M.D. on 02/02/2018 9:52 AM. Narrative Performed At CHEST SINGLE VIEW [facility] RESULTS INDICATION: chest tube COMPARISON STUDY: February 01, 2018. FINDINGS: Life Support Devices: The life support devices are stable. Lungs: The lung volume is normal. Similar diffuse right lung and patchy left lung opacities. Pleura: Stable pleural spaces. Heart and Mediastinum: The cardiomediastinal silhouette and great vessels are stable. Procedure Note Interface, Radiant Results - 02/02/2018 9:57 AM DUST COLLECTOR OPERATOR CHEST SINGLE VIEW INDICATION: chest tube COMPARISON STUDY: February 01, 2018. FINDINGS: Life Support Devices: The life support devices are stable. Lungs: The lung volume is normal. Similar diffuse right lung and patchy left lung opacities. Pleura: Stable pleural spaces. Heart and Mediastinum: The cardiomediastinal silhouette and great vessels are stable. IMPRESSION 1. Similar diffuse right lung and patchy left lung opacities likely multifocal infection. 2. Stable right pleural effusion without definite pneumothorax. Previously visualized air-fluid levels not well seen. Finalized by Jony Salas M.D. on 02/02/2018 9:53 AM. Dictated by Jony Salas M.D. on 02/02/2018 9:52 AM. Performing Organization Address City/[facility]/Zipcode Phone Number RAD RESULTS * PHOSPHORUS (02/02/2018 4:39 AM DUST COLLECTOR OPERATOR) Only the most recent of 14 results within the time period is included. Phosphorus 3.9Comment: NOTE NEW REFERENCE 2.0 - 4.5 MG/DL [facility] MAIN LAB RANGES Specimen Blood Performing Organization Address [facility] Phone Number MAIN LAB [address] [place] [address] * SLEEP STUDY-SCAN (02/02/2018 12:00 AM DUST COLLECTOR OPERATOR) Narrative Performed At Ordered by an unspecified provider. * EXERCISE OXIMETRY-SCAN (02/02/2018 12:00 AM DUST COLLECTOR OPERATOR) Narrative Performed At Ordered by an unspecified provider. * CULTURE-FUNGAL,OTHER (01/28/2018 12:07 PM DUST COLLECTOR OPERATOR) Only the most recent of 2 results within the time period is included. Battery Name FUNGUS CULTURE MAIN LAB Specimen Description TISSUE MAIN LAB RIGHT LOWER LOBE PLEURAL RIND Special Requests NONE [facility] MAIN LAB Culture NO GROWTH OF FUNGUS AT 4 WEEKS [facility] MAIN LAB Report Status FINAL [facility] MAIN LAB 02/28/2018 Specimen Tissue - Tissue Performing Organization Address [facility] Phone Number MAIN LAB [address] [place] [address] * CULTURE-TB (AFB) (01/28/2018 12:07 PM DUST COLLECTOR OPERATOR) Only the most recent of 2 results within the time period is included. Battery Name AFB CULTURE MAIN LAB Specimen Description TISSUE MAIN LAB RIGHT LOWER LOBE PLEURAL RIND Special Requests NONE MAIN LAB Culture NO GROWTH OF MYCOBACTERIA AT 6 MAIN LAB WEEKS Report Status FINAL MAIN LAB 03/21/2018 Specimen Tissue - Tissue Performing Organization Address [facility] Phone Number MAIN LAB [address] [place] [address] * CULTURE-WOUND/TISSUE/FLUID(AEROBIC ONLY)W/SENSITIVITY (01/28/2018 12:07 PM DUST COLLECTOR OPERATOR ) Only the most recent of 2 results within the time period is included. Battery Name ROUTINE CULTURE MAIN LAB Specimen Description TISSUE MAIN LAB RIGHT LOWER LOBE PLEURAL RIND Special Requests NONE MAIN LAB Direct Gram Stain FEW MAIN LAB NEUTROPHILS NO ORGANISMS SEEN Culture NO GROWTH 5 DAYS MAIN LAB Report Status FINAL MAIN LAB 02/02/2018 Specimen Tissue - Tissue Performing Organization Address [facility] [place] Phone Number MAIN LAB [address] [place] [address] * CULTURE-ANAEROBIC (01/28/2018 12:07 PM DUST COLLECTOR OPERATOR) Battery Name ANAEROBE CULTURE MAIN LAB Specimen Description TISSUE MAIN LAB RIGHT LOWER LOBE PLEURAL RIND Special Requests NONE MAIN LAB Culture NO ANAEROBES ISOLATED MAIN LAB Report Status FINAL MAIN LAB 02/02/2018 Specimen Tissue - Tissue Performing Organization Address [facility] [place] Phone Number MAIN LAB [address] [place] [address] * URINALYSIS, MICROSCOPIC (01/26/2018 8:05 AM DUST COLLECTOR OPERATOR) WBCs,UA 0-2 0 - 2 /HPF MAIN LAB RBCs,UA 0-2 0 - 3 /HPF MAIN LAB Specimen Urine - Urine Performing Organization Address [facility] [place] Phone [place] MAIN LAB [address] [place] [address] * URINALYSIS DIPSTICK (01/26/2018 8:05 AM DUST COLLECTOR OPERATOR) Color,UA YELLOW [facility] MAIN LAB Turbidity,UA CLEAR CLEAR-CLEAR [facility] MAIN LAB Specific [place]-Urine 1.011 1.003 - 1.035 MAIN LAB pH,UA 5.0 5.0 - 8.0 [facility] MAIN LAB Protein,UA 1+ (A) NEG-NEG MAIN LAB Glucose,UA NEG NEG-NEG [facility] MAIN LAB Ketones,UA NEG NEG-NEG [facility] MAIN LAB Bilirubin,UA NEG NEG-NEG [facility] MAIN LAB Blood,UA NEG NEG-NEG MAIN LAB Urobilinogen,UA NORMAL NORM-NORMAL MAIN LAB Nitrite,UA NEG NEG-NEG MAIN LAB Leukocytes,UA NEG NEG-NEG [facility] MAIN LAB Urine Ascorbic Acid, UA NEG NEG-NEG [facility] MAIN LAB Specimen Urine - Urine Performing Organization Address [facility] Phone Number MAIN LAB [address] [place] [address] * UREA NITROGEN-URINE RANDOM (01/26/2018 8:05 AM DUST COLLECTOR OPERATOR) Urea Nitrogen 155 MG/DL MAIN LAB Specimen Urine - Urine Performing Organization Address [facility] [place] Phone Number MAIN LAB [address] [place] [address] * SODIUM-URINE RANDOM (01/26/2018 8:05 AM DUST COLLECTOR OPERATOR) Sodium, Random 31 MMOL/L MAIN LAB Specimen Urine - Urine Performing Organization Address [facility] [place] Phone Number MAIN LAB [address] [place] [address] * CREATININE-URINE RANDOM (01/26/2018 8:05 AM DUST COLLECTOR OPERATOR) Creatinine, Random 32 MG/DL MAIN LAB Specimen Urine - Urine Performing Organization Address [facility] [place] Phone Number MAIN LAB [address] [place] [address] * EOSINOPHIL STAIN (01/26/2018 8:05 AM DUST COLLECTOR OPERATOR) Battery Name EOSINOPHIL STAIN MAIN LAB Specimen Description URINE MAIN LAB Special Requests NONE MAIN LAB Morrison's Stain NO EOSINOPHILS SEEN [facility] MAIN LAB Report Status FINAL MAIN LAB 01/26/2018 Specimen Urine Performing Organization Address [facility] [place] Phone Number MAIN LAB [address] [place] [address] * VANCOMYCIN TROUGH (01/23/2018 9:19 PM DUST COLLECTOR OPERATOR) Vancomycin Trough 16.2 10.0 - 20.0 MCG/ML MAIN LAB Specimen Blood, venous - Blood Performing Organization Address [facility] [place] Phone Number MAIN LAB [address] [place] [address] * POTASSIUM (01/23/2018 6:10 PM DUST COLLECTOR OPERATOR) Only the most recent of 2 results within the time period is included. Potassium 4.2 3.5 - 5.1 MMOL/L [facility] MAIN LAB Specimen Blood Performing Organization Address City/[facility] Phone Number [facility] MAIN LAB [address] [place] [address] * LDH-LACTATE DEHYDROGENASE (01/23/2018 12:30 AM DUST COLLECTOR OPERATOR) Lactate Dehydrogenase 168 100 - 210 U/L [facility] MAIN LAB Specimen Blood Performing Organization Address [facility] Phone Number [facility] MAIN LAB [address] [place] [address] * PLEURAL FLUID LIPASE (01/22/2018 7:35 PM DUST COLLECTOR OPERATOR) Pleural Fluid Lipase <3 U/L [facility] MAIN LAB Comment: Ascites due to pancreatitis is associated with lipase >3 times higher than plasma. Specimen Pleural Fluid Performing Organization Address [facility] [place] Phone Number [facility] MAIN [facility] [address] [place] [address] * PLEURAL FLUID TRIGLYCERIDES (01/22/2018 7:35 PM DUST COLLECTOR OPERATOR) Pleural Fluid 42 mg/dL [facility] MAIN LAB Triglycerides Comment: Triglycerides >110 mg/dL is suggestive of a chylothorax.Triglycerides <50 mg/dL is suggestive of pseudochylothorax. Specimen Pleural Fluid Performing Organization Address [facility] Phone Number [facility] MAIN LAB [address] [place] [address] * PLEURAL FLUID TOTAL PROTEIN (01/22/2018 7:35 PM DUST COLLECTOR OPERATOR) Pleural Fluid Total 4.0 (H)Comment: Serum to <1.1 g/dL [facility] MAIN LAB Protein pleural fluid protein gradient >3.1 g/dL is suggestive of an exudate Specimen Pleural Fluid Performing Organization Address [facility] Phone Number [facility] MAIN LAB [address] [place] [address] * PLEURAL FLUID PH (01/22/2018 7:35 PM DUST COLLECTOR OPERATOR) Pleural Fluid Ph 7.64 7.60 - 7.66 [facility] MAIN LAB Specimen Pleural Fluid Performing Organization Address [facility] Phone Number [facility] MAIN LAB [address] [place] [address] * PLEURAL FLUID LACTATE DEHYDROGENASE (01/22/2018 7:35 PM DUST COLLECTOR OPERATOR) Pleural Fluid Lactate 2,376 (H)Comment: Higher 67 - 140 U/L [facility] MAIN LAB Dehydrogenase levels suggestive of exudate Specimen Pleural Fluid Performing Organization Address [facility] [place] Phone Number [facility] MAIN LAB [address] [place] [address] * PLEURAL FLUID GLUCOSE (01/22/2018 7:35 PM DUST COLLECTOR OPERATOR) Pleural Fluid Glucose <10 (L) 70 - 100 mg/dL [facility] MAIN LAB Comment: Glucose <60 mg/dL associated withparapneumonic effusion, tuberculosis, malignancy, empyema, and rheumatoid disease Specimen Pleural Fluid Performing Organization Address [facility] [place] Phone Number [facility]IN [facility] [address] [place] [address] * PLEURAL FLUID CHOLESTEROL (01/22/2018 7:35 PM DUST COLLECTOR OPERATOR) Pleural Fluid Cholesterol 62 (H) <45 mg/dL [facility] MAIN LAB Comment: Pleural fluid cholesterol reference range is <45 mg/dL. Elevated level is suggestive of an exudate Specimen Pleural Fluid Performing Organization [facility] [place] Phone Number [facility] MAIN LAB [address] [place] [address] * PLEURAL FLUID TOTAL BILIRUBIN (01/22/2018 7:35 PM DUST COLLECTOR OPERATOR) Pleural Fluid Total 0.4 mg/dL [facility] MAIN LAB Bilirubin Comment: Pleural fluid to serum bilirubin ratio of 0.6 suggests the presence of an exudate Specimen Pleural Fluid Performing Organization Address [facility] [place] Phone Number [facility]IN [facility] [address] [place] [address] * PLEURAL FLUID AMYLASE (01/22/2018 7:35 PM DUST COLLECTOR OPERATOR) Pleural Fluid Amylase 15 U/L [facility] MAIN LAB Comment: Elevated pleural fluid value is a level higher than the upper limit of normal for plasma. Specimen Pleural Fluid Performing Organization Address [facility] [place] Phone Number [facility] MAIN [facility] [address] [place] [address] * PLEURAL FLUID ALBUMIN (01/22/2018 7:35 PM DUST COLLECTOR OPERATOR) Pleural Fluid Albumin 1.6Comment: Pleural fluid g/dL [facility] MAIN LAB albumin gradient >1.2 g/dL is suggestive of an exudate Specimen Pleural Fluid Performing Organization Address [facility] Phone Number [facility] [address] [place] [address] * CELL COUNT W/DIFF-FLUIDS (01/22/2018 7:35 PM DUST COLLECTOR OPERATOR) White Blood Cells,Fluid 12,995 /UL [facility] Red Blood Cells,Fluid 8,265 /UL [facility] Segmented Neutrophils, 91 % [facility] Fluid Lymphocytes,Fluid 2 % [facility] Monocyte/Histo,Fluid 7 % [facility] Fluid Source PLEURAL FLUID [facility] MAIN LAB Pathology ACUTE INFLAMMATION MAIN LAB Interpretation,Fluid HEMORRHAGIC FLUID Pathologist Signature INTERPRETED BY MANDA BLACK M.D. [facility] By the PATH SIGNATURE ABOVE, I attest that I have personally formulated the final interpretation expressed in this report and that the above diagnosis is based upon my examination of the slides and/or other material indicated in this report. Specimen Fluid - Pleural Fluid Performing Organization Address [facility] Phone Number [facility] [address] [place] [address] * O2 SATURATION, CENTRAL VENOUS (01/22/2018 7:15 PM DUST COLLECTOR OPERATOR) O2 Sat, Central Venous 55.5 % [facility] Specimen Blood Performing Organization Address [facility] Phone Number [facility] [address] [place] [address] * LACTIC ACID (BG - RAPID LACTATE) (01/22/2018 7:15 PM DUST COLLECTOR OPERATOR) Only the most recent of 2 results within the time period is included. Lactic Acid,BG 1.1 0.5 - 2.0 MMOL/L [facility] Performing Organization Address [facility] Phone Number [facility] [address] [place] [address] * LINE PLCMT 1V CXR (01/22/2018 6:20 PM DUST COLLECTOR OPERATOR) Impressions Performed At Placement of an additional right pleural drain with decrease in fluid component [facility] RAD RESULTS of the loculated right hydropneumothorax. Approved by Osvaldo Pineda M.D. on 01/23/2018 10:24 AM By my electronic signature, I attest that I have personally reviewed the images for this examination and formulated the interpretations and opinions expressed in this report Finalized by Manjinder Porras M.D. on 01/23/2018 12:52 PM. Dictated by Osvaldo Pineda M.D. on 01/23/2018 9:18 AM. Narrative Performed At [facility] 1V CXR [facility] RAD RESULTS Clinical Indication: Male, 62 years old. Thoracostomy tube placement Comparison: Chest radiograph from earlier the same day Findings: Right PICC and pigtail pleural drainage catheter in similar position. Placement of an additional right-sided pleural drain. Decrease in fluid component of the loculated hydropneumothorax. Persistent mixed opacities throughout the right lung and left lung emphysema and scarring. Cardiac silhouette is within normal limits. No pulmonary vascular congestion. Procedure Note Interface, Radiant Results - 01/23/2018 12:55 PM DUST COLLECTOR OPERATOR [facility] 1V CXR Clinical Indication: Male, 62 years old. Thoracostomy tube placement Comparison: Chest radiograph from earlier the same day Findings: Right PICC and pigtail pleural drainage catheter in similar position. Placement of an additional right-sided pleural drain. Decrease in fluid component of the loculated hydropneumothorax. Persistent mixed opacities throughout the right lung and left lung emphysema and scarring. Cardiac silhouette is within normal limits. No pulmonary vascular congestion. IMPRESSION Placement of an additional right pleural drain with decrease in fluid component of the loculated right hydropneumothorax. Approved by Osvaldo Pineda M.D. on 01/23/2018 10:24 AM By my electronic signature, I attest that I have personally reviewed the images for this examination and formulated the interpretations and opinions expressed in this report Finalized by Manjinder Porras M.D. on 01/23/2018 12:52 PM. Dictated by Osvaldo Pineda M.D. on 01/23/2018 9:18 AM. Performing Organization Address City/State/Zipcode Phone Number [facility] RAD RESULTS * CHEST TUBE INSERTION (01/22/2018 6:14 PM DUST COLLECTOR OPERATOR) Only the most recent of 2 results within the time period is included. Narrative Performed At Cici Jenkins 01/22/20186:28 PM Chest Tube Date/Time: 01/22/2018 6:14 PM Performed by: Cici Jenkins Authorized by: Henry Flores MD Consent: Verbal consent obtained. Written consent obtained. Risks and benefits: risks, benefits and alternatives were discussed Consent given by: patient and spouse Patient understanding: patient states understanding of the procedure being performed Patient consent: the patient's understanding of the procedure matches consent given Procedure consent: procedure consent matches procedure scheduled Relevant documents: relevant documents present and verified Site marked: the operative site was marked Imaging studies: imaging studies available Patient identity confirmed: verbally with patient, arm band, provided demographic data and hospital-assigned identification number Time out: Immediately prior to procedure a "time out" was called to verify the correct patient, procedure, equipment, physician support coordinator and site/side marked as required. Indications: pleural effusion Indications comments: hydropneumothorax Sedation: Patient sedated: no Anesthesia: local infiltration Anesthesia: Local Anesthetic: lidocaine 1% with epinephrine Preparation: skin prepped with Chloraprep Placement location: right lateral Scalpel size: 10 Tube size: 8 Indonesian Ultrasound guidance: yes Tension pneumothorax heard: no Tube connected to: suction Drainage characteristics: cloudy and serosanguinous Suture material: 2-0 silk Dressinx4 sterile gauze and Xeroform gauze Post-insertion x-ray findings: tube in good position Patient tolerance: Patient tolerated the procedure well with no immediate complications * CULTURE-FUNGAL,BLOOD W/SENSITIVITY (01/21/2018 10:56 PM DUST COLLECTOR OPERATOR) Battery Name FUNGUS BLOOD CULTURE MAIN LAB Specimen Description BLOOD MAIN LAB RIGHT PICC LINE RED LUMEN Special Requests NONE MAIN LAB Culture NO GROWTH OF FUNGUS AT 4 WEEKS MAIN LAB Report Status FINAL MAIN LAB 02/21/2018 Specimen Blood Performing Organization Address City/State/Zipcode Phone Number [facility] [address] [place] [address] * TELEMETRY STRIPS-SCAN (01/21/2018 12:00 AM DUST COLLECTOR OPERATOR) Narrative Performed At Ordered by an unspecified provider. * CMV QUANT PCR-BLOOD (01/17/2018 6:05 AM DUST COLLECTOR OPERATOR) Only the most recent of 3 results within the time period is included. IU/mL CMV Blood <50 IU/mL [facility] The test method detects and quantitates CMV DNA using the Rogers RealTime assay, and is approved by the FDA for monitoring hematopoietic stem cell transplant patients who are undergoing anti-CMV therapy.Please correlate results with the clinical status of the patient. LOG10 CMV <1.7 MAIN LAB CMV DNA Quant PCR CMV DNA NOT DETECTED CMVND-CMV DNA NOT [facility] DETECTED [IU]/mL Specimen Blood Performing Organization Address City/State/Zipcode Phone Number MAIN LAB [address] [place] [address] * TELEMETRY STRIPS-SCAN (01/08/2018 1:28 PM DUST COLLECTOR OPERATOR) Narrative Performed At Ordered by an unspecified provider. * TELEMETRY STRIPS-SCAN (01/08/2018 7:26 AM DUST COLLECTOR OPERATOR) Narrative Performed At Ordered by an unspecified provider. * ANESTHESIA PERIPHERAL NERVE BLOCK (01/05/2018 12:34 PM DUST COLLECTOR OPERATOR) Narrative Performed At Briana Alamo DO 01/05/2018 12:35 PM Anesthesia Procedure: Peripheral Nerve Block PERIPHERAL NERVE BLOCK Date/Time: 01/05/2018 12:25 PM Patient location: pre-op Reason for block: procedure for pain Preprocedure checklist performed: 2 patient identifiers, risks & benefits discussed, patient evaluated, timeout performed, consent obtained, patient being monitored and sterile drape Sterile technique: - Proper hand washing - Cap, mask - Sterile gloves - Skin prep for antisepsis Peripheral Nerve Block Procedure Patient position: supine Prep: ChloraPrep Monitoring: BP, EKG and continuous pulse ox Anesthesia block type: Pecs 1 and anterior scalene. Laterality: bilateral Injection technique: single-shot Procedures: ultrasound guided Ultrasound image captured Local infiltration: lidocaine Needle/cathether: Needle type: Tuohy Needle gauge: 18 G; Needle length: 4 in Needle location: anatomical landmarks and ultrasound guidance Procedure Outcome Injection assessment: negative aspiration for heme, no paresthesia on injection, incremental injection and local visualized surrounding nerve on ultrasound Observations: adequate block, patient sedated but conversant throughout block, patient tolerated the procedure well with no immediate complications and comfortable throughout block Refer to nursing documentation for vitals and monitoring data during procedure. Performed by: BRIANA ALAMO Authorized by: DEANDRE DOVER * ECG-SCAN (01/05/2018 10:10 AM DUST COLLECTOR OPERATOR) Narrative Performed At Ordered by an unspecified provider. * ECG-SCAN (01/02/2018 2:34 PM DUST COLLECTOR OPERATOR) Narrative Performed At Ordered by an unspecified provider. * POC BLOOD GAS ARTERIAL (01/02/2018 12:57 AM DUST COLLECTOR OPERATOR) PH-ART-POC 7.50 (H) 7.35 - 7.45 [facility] MAIN LAB [id number] 48 (H) 35 - 45 MMHG [facility] MAIN LAB PO2-ART-POC 69 (L) 80 - 100 MMHG [facility] MAIN LAB Base Ex-ART-POC 14.0 MMOL/L [facility] MAIN LAB O2 Sat-ART-POC 95.0 95 - 99 % [facility] MAIN LAB [id number] 36.8 (H) 21 - 28 MMOL/L [facility] MAIN LAB Performing Organization Address City/[facility] Phone Number MAIN LAB [address] [place] [phone] * POC SODIUM (01/02/2018 12:57 AM DUST COLLECTOR OPERATOR) Sodium-POC 137 137 - 147 MMOL/L [facility] MAIN LAB Performing Organization Address City/[facility] Phone Number MAIN LAB [address] [place] [phone] * POC POTASSIUM (01/02/2018 12:57 AM DUST COLLECTOR OPERATOR) Potassium-POC 3.6 3.5 - 5.1 MMOL/L [facility] MAIN LAB Performing Organization Address City/[facility] Phone Number MAIN LAB [address] [place] [phone] * POC IONIZED CALCIUM (01/02/2018 12:57 AM DUST COLLECTOR OPERATOR) Ionized Calcium-POC 1.18 1.0 - 1.3 MMOL/L [facility] MAIN LAB Performing Organization Address City/[facility] Phone Number MAIN LAB [address] [place] [address] * POC HEMATOCRIT (01/02/2018 12:57 AM DUST COLLECTOR OPERATOR) Hemoglobin POC 12.6 (L) 13.5 - 16.5 GM/DL [facility] MAIN LAB Hematocrit POC 37.0 (L) 40 - 50 % [facility] MAIN LAB Performing Organization Address City/[facility] Phone Number MAIN LAB [address] [place] [phone] * TROPONIN-I (01/02/2018 12:40 AM DUST COLLECTOR OPERATOR) Troponin-I 0.02 0.0 - 0.05 NG/ML MAIN LAB Specimen Blood Performing Organization Address City/[facility] Phone Number MAIN LAB [address] [place] [phone] * PTT (APTT) (01/02/2018 12:40 AM DUST COLLECTOR OPERATOR) APTT 34.7Comment: NOTE NEW 20.0 - 36.0 SEC [facility] MAIN LAB REFERENCE RANGES Specimen Blood Performing Organization Address City/[facility] Phone Number MAIN LAB [address] [place] [address] * PROTIME INR (PT) (01/02/2018 12:40 AM DUST COLLECTOR OPERATOR) INR 1.3 (H) 0.8 - 1.2 [facility] MAIN LAB Specimen Blood Performing Organization Address [facility] Phone Number MAIN LAB [address] [place] [address] * BONE ALKALINE PHOSPHATASE (12/28/2017 3:50 AM DUST COLLECTOR OPERATOR) Bone Specific AlkPhos 171 (H) REFERENCE LAB Comment: Reference range: 0 to 20 Unit: mcg/L [facility], [address] [place] [address] Specimen Blood Performing Organization Address [facility] Phone Number REFERENCE LAB REFERENCE LAB See results for address. from Last 3 Months Insurance Payer Benefit Subscriber ID Type Phone Address Plan / Group MEDICARE MEDICARE xxxxxxxxxxx Medicare PART A AND B Advance Directives Patient has advance care planning documents, and code status on file. For more information, please contact: [facility] [address] [facility] [address] [place] [address] Date Inactivated Comments Code Status Date Activated 02/21/2018 1:41 PM Full Code 02/02/2018 4:58 PM Provider has discussed Code Status Yes w/Patient or Family? 02/02/2018 4:43 PM Full Code 01/24/2018 11:58 AM Provider has discussed Code Status Yes w/Patient or Family? 01/24/2018 11:58 AM Full Code 01/22/2018 5:13 PM Provider has discussed Code Status No, more discussion w/Patient or Family? needed 01/22/2018 5:13 PM DNAR-Full 01/22/2018 9:06 AM Intervention Provider has discussed Code Status No, more discussion w/Patient or Family? needed Does the patient want any intervention Yes for a pre-arrest emergency which would necessitate transfer to an ICU setting? Respiratory emergency: does the patient Yes want to have intubation with mechanical ventilation? Symptomatic/hypotensive dysrhythmia with No a pulse: does the patient want cardioversion? Hypotension: does the patient want the No use of vasopressors if needed for blood pressure? Respiratory emergency: does the patient Yes want to have a trial of non-invasive positive pressure ventilation (NIPPV/BiPAP)? 01/22/2018 9:06 AM Full Code 01/21/2018 7:32 PM Provider has discussed Code Status No, more discussion w/Patient or Family? needed
--- OUTSIDE RECORDS SUMMARY | 2018-03-30 13:58 | XMS REPORT | Encounter Summary ---
Author Author [facility] Address Unknown Phone Unavailable Care Team Providers Care Brand Sales Consultant Name Role Phone Seb Mai Unavailable Unavailable Samir Lopez MD Unavailable Unavailable Samara Lugo RN Unavailable Unavailable Flavio Jackson MD PCP Reason for Referral * Radiology Services (Routine) Referred By Contact Referred To Contact Status Reason Specialty Diagnoses / Procedures Mohan Ayala MD [address] [place] [address] [facility] OFF[facility] [place] [phone] No Auth Needed Radiology Diagnoses Empyema of right pleural space (HCC) Secondary spontaneous pneumothorax Pneumonia of lower lobe due to infectious organism, unspecified laterality (HCC) Surgery follow-up Chest tube in place P rocedures CT CHEST WO CONTRAST * Radiology Services (Routine) Referred By Contact Referred To Contact Status Reason Specialty Diagnoses / Procedures Mohan Ayala MD [address] [place] [phone] [facility] [address] [address] No Auth Needed Radiology Diagnoses Empyema of right pleural space (HCC) Secondary spontaneous pneumothorax Pneumonia of lower lobe due to infectious organism, unspecified laterality (HCC) Surgery follow-up Chest tube in place P rocedures CT CHEST WO CONTRAST Reason for Visit * Radiology Services (Routine) Referred By Contact Referred To Contact Status Reason Specialty Diagnoses / Procedures Mohan Ayala MD [address] [facility] [address] [place] [address] [place] [facility] OFF[facility] [address] [place] [address] No Auth Needed Radiology Diagnoses Empyema of right pleural space (HCC) Secondary spontaneous pneumothorax Pneumonia of lower lobe due to infectious organism, unspecified laterality (HCC) Surgery follow-up Chest tube in place P rocedures CT CHEST WO CONTRAST Encounter Details Care Team Description Date Type Department Mohan Ayala MD [address] [facility] [address] [place] [address] [phone] 03/03/2018 Hospital [facility] Radiology Main Hospital 2nd ia [address] [place] [address] Social History Date Tobacco Use Types Packs/Day [...] Travel Start No recent travel history available. as of this encounter Functional Status Date of Assessment Functional Status Response 02/03/2018 Does the patient have a hearing impairment: No 01/21/2018 Does the patient have a visual impairment: Yes 01/21/2018 Does the patient have impaired ambulation: Yes 01/21/2018 Does the patient have an activity of daily living Yes (ADL) impairment: 01/21/2018 Does the patient have an instrumental activity of No daily living (IADL) impairment: Date of Assessment Cognitive Status Response 01/21/2018 Does the patient have a cognitive impairment: No as of this encounter Medications at Time of Discharge Start Date End Date Medication Sig Dispensed Refills 02/21/2018 acetaminophen (TYLENOL) Take two 0 500 mg tablet tablets by mouth three times daily as needed. Max of 4,000 mg of acetaminophen in 24 hours. 02/21/2018 albuterol (PROAIR HFA, Inhale two 6.7 g 0 VENTOLIN HFA, OR puffs by PROVENTIL HFA) 90 mouth into mcg/actuation inhaler the lungs twice daily. Shake well before use. 02/21/2018 amoxicillin/K clavulanate Take one 28 tablet 0 (AUGMENTIN) 875/125 mg tablet by tablet mouth twice daily with meals. Take with food. 02/21/2018 bacitracin 500 unit/g apply to ear 28 g 0 topical ointment wounds twice per day 02/21/2018 digoxin (LANOXIN) 125 mcg Take one 90 tablet 0 tablet tablet by mouth daily. 02/21/2018 fluticasone (FLONASE) 50 Apply two 48 g 3 mcg/actuation nasal spray sprays to each nostril as directed daily. Shake bottle gently before using. 02/21/2018 furosemide (LASIX) 20 mg Take one 90 tablet 1 tablet tablet by mouth twice daily. 02/21/2018 guaiFENesin LA (MUCINEX) Take one 180 tablet 0 600 mg tablet tablet by mouth twice daily. 02/21/2018 magnesium chloride (MAG Take one 90 each 1 DELAY) 535 mg (64mg tablet by elemental) tablet mouth twice daily. 02/21/2018 melatonin 3 mg tab Take one 0 tablet by mouth at bedtime daily. 02/21/2018 metoprolol tartrate Take one-half 90 tablet 0 (LOPRESSOR) 25 mg tablet tablet by mouth twice daily. 02/21/2018 ondansetron (ZOFRAN) 4 mg Take one 90 tablet 1 tablet tablet by mouth every 8 hours as needed for Nausea or Vomiting. 02/21/[address] Take one 60 tablet 0 (PROTONIX) 40 mg tablet tablet by mouth twice daily. 02/21/2018 potassium chloride 20 Take 15 mL by 473 mL 1 mEq/15 mL oral solution mouth daily. 02/21/2018 umeclidinium-vilanterol Inhale one 60 each 2 (ANORO ELLIPTA) 62.5-25 puff by mouth mcg/actuation inhaler into the lungs daily. 02/21/2018 vitamin A & D oint Apply 113 g 0 topically to affected area daily. 02/21/2018 vitamins, multi Take one 30 tablet 2 w/minerals 9 mg iron-400 tablet by mcg tab mouth daily. 02/21/2018 03/04/2018 isavuconazonium sulfate Take two 14 capsule 0 (CRESEMBA) 186 mg capsule capsules by mouth daily until gone. as of this encounter Plan of Treatment Not on fileas of this encounter Procedures Comments Procedure Name Priority Date/Time Associated Diagnosis CT CHEST WO CONTRAST Routine 03/03/2018 Empyema of right pleural 11:30 AM DIRECTOR PEOPLESOFT space (HCC) Secondary spontaneous pneumothorax Pneumonia of lower lobe due to infectious organism, unspecified laterality (HCC) Surgery follow-up Chest tube in place in this encounter Results * CT CHEST WO CONTRAST (03/03/2018 11:30 AM DIRECTOR PEOPLESOFT) Impressions Performed At 1. Slight decrease in [...] . Findings: Evaluation of the mediastinum and gloria, including the vasculature and for lymphadenopathy, is limited without the use of IV contrast. Axilla, Mediastinum and Gloria: There is no axillary adenopathy. Few prominent [...] Interface, Radiant Results - 03/03/2018 12:[address] Chest . Clinical Indication: Male, 62 years old. Empyema right pleural space. Pneumonia lower lobe due to infectious organism, unspecified laterality. Technique: Multiple contiguous axial CT images were obtained through the chest without IV contrast. Post processing coronal and sagittal reconstruction images were made from the axial images. IV contrast: None. Comparison: CT chest 01/31/2018 . Findings: Evaluation of the mediastinum and gloria, including the vasculature and for lymphadenopathy, is limited without the use of IV contrast. Axilla, Mediastinum and Gloria: There is no axillary adenopathy. Few prominent [...] on 03/03/2018 11:47 AM. Performing Organization Address City/State/Zipcode Phone Number [facility] RESULTS in this encounter Visit Diagnoses Diagnosis Empyema of right pleural space (HCC) Empyema without mention of fistula Secondary spontaneous pneumothorax Pneumonia of lower lobe due to infectious organism, unspecified laterality ( HCC) Surgery follow-up Follow-up examination, following unspecified surgery Chest tube in place in this encounter
--- OUTSIDE RECORDS SUMMARY | 2018-03-30 13:58 | XMS REPORT | Encounter Summary ---
Author Author [facility] Organization [facility] Address Unknown Phone Unavailable Care Team Providers Care Ticket Collector Name Role Phone SebMai Unavailable Unavailable Samir Lopez MD Unavailable Unavailable Samara Lugo RN Unavailable Unavailable Flavio Jackson MD PCP Encounter Details Care Team Description Date Type Department Mohan Ayala MD [address] [facility] [address] [place] [address] 03/03/2018 Hospital [facility] Radiology Main Hospital 2nd fl [address] [place], [place] [id number] Social History Date Tobacco Use Types Packs/Day [...] 03/03/2018 Empyema of right pleural 12:46 PM FRUIT 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
--- OUTSIDE RECORDS SUMMARY | 2018-03-30 13:58 | XMS REPORT | Encounter Summary ---
Author Author [facility] Organization [facility] Address Unknown Phone Unavailable Care Team Providers Care Aeronautical Drafter Name Role Phone SebMai Unavailable Unavailable Samir Lopez MD Unavailable Unavailable Samara Lugo RN Unavailable Unavailable Flavio Jackson MD PCP Reason for Visit * Reason Comments Outpatient Antibiotic Therapy (Opat) Encounter Details Care Team Description Date Type Department Fco Messina MD [address] [facility] [address] [place] [address] Outpatient Antibiotic Therapy (Opat) 03/11/2018 Telephone [facility] - Internal Medicine [address] [facility] [place] [address] Social History Date Tobacco Use Types Packs/Day [...] cognitive impairment: No as of this encounter Miscellaneous Notes * Telephone Encounter - Lisa Valdes RN - 03/11/2018 1:10 PM SEARCH MARKETING COORDINATOR Pt scheduled for CT 04/19/18 at 9:30am, Dr. Messina will see him after ~11AM. Pt needs monthly labs starting early March. Discussed with patient and his , both agreeable. Pt requested lab orders to be sent to [facility]. Orders faxed. CH MARKETING COORDINATOR in this encounter Plan of Treatment Not on fileas of this encounter Visit Diagnoses Not on filein this encounter
--- OUTSIDE RECORDS SUMMARY | 2018-03-30 13:58 | XMS REPORT | Encounter Summary ---
Author Author [facility] Organization [facility] Address Unknown Phone Unavailable Care Team Providers Care Pharmaceutical Representative Name Role Phone Seb Mai Unavailable Unavailable Samir Lopez MD Unavailable Unavailable Samara Lugo RN Unavailable Unavailable Flavio Jackson MD PCP Reason for Referral * Radiology Services (Routine) Referred By Contact Referred To Contact Status Reason Specialty Diagnoses / Procedures Fco Messina MD [address] [facility] [address] [place] [address] [employer] 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 Will arrange ID f/u with Dr. Messina. Will discuss blood draw with patient to send orders to his preferred lab. ORATE RELATIONS MANAGER * Fco Messina MD - 03/04/2018 12:40 PM CORPORATE RELATIONS MANAGER I discussed the CT scan with Mohan Oneal Reviewed CT, still has significant cavity, nodular infiltrate upper lobe Discussed with patient, will restart cresemba for at least another 6-8 weeks, will get blood work monthly cbc, cmp, will get a CT and schedule followup in about 6-8 weeks, called patient, he is agreeable. ORATE RELATIONS MANAGER in this encounter Miscellaneous Notes * Addendum Note - Lisa Kothari RN - 03/04/2018 12:40 PM CORPORATE RELATIONS MANAGER Addended by: LISA KOTHARI on: 03/04/2018 04:50 PM Modules accepted: Orders ORATE RELATIONS MANAGER in this encounter Plan of Treatment Order Schedule Name Priority Associated Diagnoses Expected: 04/19/2018 (Approximate), Expires: 03/04/2019 CT CHEST WO CONTRAST Routine Pulmonary aspergillosis invasive type (HCC) half-way (current) use of antibiotics Expected: 04/04/2018 (Approximate), Expires: 07/02/2018 COMPREHENSIVE METABOLIC PANEL Routine Pulmonary aspergillosis invasive type (HCC) half-way (current) use of antibiotics Expected: 04/04/2018 (Approximate), Expires: 07/02/2018 CBC AND DIFF Routine Pulmonary aspergillosis invasive 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
--- OUTSIDE RECORDS SUMMARY | 2018-03-30 13:59 | XMS REPORT | Encounter Summary ---
Author Author [facility] Organization [facility] Address Unknown Phone Unavailable Care Team Providers Care Gas Distribution And Emergency Clerk Name Role Phone SebMai Unavailable Unavailable Samir Lopez MD Unavailable Unavailable Samara Lugo RN Unavailable Unavailable Flavio Jackson MD PCP Encounter Details Care Team Description Date Type Department Mohan Ayala MD [address] [facility] [address] [place] [address] 03/03/2018 Hospital [facility] Radiology Main Hospital 2nd fl [address] [place], [place] [id number] Social History Date Tobacco Use Types Packs/Day [...] Associated Diagnosis CHEST 2 VIEWS Routine 03/03/2018 Hydropneumothorax 10:10 AM 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 Slight inferior migration of lateral right basal chest tube. [facility] RESULTS 2. Improved multifocal right greater than left lung consolidation suggesting improving infection. Given persistent right upper lobe nodularity and left midlung zone nodule, advise continued radiographic follow-up to complete resolution. 3. Tiny locule of air at the right lung apex compatible with pneumothorax. Finalized by Jony Salas M.D. on 03/03/2018 11:56 AM. Dictated by Jony Salas M.D. on 03/03/2018 11:52 AM. Narrative Performed At CHEST 2 VIEWS [facility] INDICATION: hydropneumothorax COMPARISON STUDY: February 02, 2018 FINDINGS: Life support devices: Slight retraction inferiorly of the more lateral right-sided chest tube. Other right-sided chest tube is stable. Removal of right PICC. Lungs: Improving multifocal right greater than left lung consolidation with persistent nodular opacities in the right upper lobe. Left midlung zone nodule. Pleura: Small right apical loculated pneumothorax. Heart and Mediastinum: Decreased cardiac silhouette size. Improved mediastinal widening. Bones: Stable regional skeleton. Procedure Note Interface, Radiant Results - 03/03/2018 12:00 PM AIRPLANE GAS TANK LINER ASSEMBLER CHEST 2 VIEWS INDICATION: hydropneumothorax COMPARISON STUDY: February 02, 2018 FINDINGS: Life support devices: Slight retraction inferiorly of the more lateral right- sided chest tube. Other right-sided chest tube is stable. Removal of right PICC. Lungs: Improving multifocal right greater than left lung consolidation with persistent nodular opacities in the right upper lobe. Left midlung zone nodule. Pleura: Small right apical loculated pneumothorax. Heart and Mediastinum: Decreased cardiac silhouette size. Improved mediastinal widening. Bones: Stable regional skeleton. IMPRESSION 1. Slight inferior migration of lateral right basal chest tube. 2. Improved multifocal right greater than left lung consolidation suggesting improving infection. Given persistent right upper lobe nodularity and left midlung zone nodule, advise continued radiographic follow-up to complete resolution. 3. Tiny locule of air at the right lung apex compatible with pneumothorax. Finalized by Jony Salas M.D. on 03/03/2018 11:56 AM. Dictated by Jony Salas M.D. on 03/03/2018 11:52 AM. Performing Organization Address City/State/Zipcode Phone Number [facility] RESULTS in this encounter Visit Diagnoses Diagnosis Hydropneumothorax Other specified forms of effusion, except tuberculous in this encounter
--- OUTSIDE RECORDS SUMMARY | 2018-03-30 13:59 | XMS REPORT | Encounter Summary ---
Author Author [facility] Organization [facility] Address Unknown Phone Unavailable Care Team Providers Care Lpn Per Diem Name Role Phone SebMai Unavailable Unavailable Samir Lopez MD Unavailable Unavailable Samara Lugo RN Unavailable Unavailable Flavio Jackson MD PCP Encounter Details Care Team Description Date Type Department Dalia Ojeda RN Hydropneumothorax (Primary Dx) 02/22/2018 Orders Only [facility] [place] [address] [address] [place] [address] Social History Date Tobacco Use Types Packs/Day [...] cognitive impairment: No as of this encounter Plan of Treatment Not on fileas of this encounter Results * CHEST 2 VIEWS (03/03/2018 10:10 AM SUPERVISOR SHIP MAINTENANCE SERVICES) Impressions Performed At 1. Slight inferior migration [...] Interface, Radiant Results - 03/03/2018 12:00 PM SUPERVISOR SHIP MAINTENANCE SERVICES CHEST 2 VIEWS INDICATION: hydropneumothorax COMPARISON STUDY: [...] in this encounter Visit Diagnoses Diagnosis Hydropneumothorax - Primary Other specified forms of effusion, except tuberculous in this encounter
--- OUTSIDE RECORDS SUMMARY | 2018-03-30 13:59 | XMS REPORT | Encounter Summary ---
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 Name Role Phone Seb Mai Unavailable Unavailable Samir Lopez MD Unavailable Unavailable Samara Lugo RN Unavailable Unavailable Flavio Jackson MD PCP Reason for Referral * Radiology Services (Routine) Referred By Contact Referred To Contact Status Reason Specialty Diagnoses / Procedures Mohan Ayala MD [address] [facility] MED OFFICE [address] [place] [address] No Auth Needed Radiology Diagnoses Empyema of right pleural space (HCC) Secondary spontaneous pneumothorax Pneumonia of lower lobe due to infectious organism, unspecified laterality (HCC) Surgery follow-up Chest tube in place P rocedures CT CHEST WO CONTRAST Reason for Visit * Reason Comments Post Operative Visit Post Op - Chest Tube Encounter Details Care Team Description Date Type Department Mohan Ayala MD [address] [facility] [address] [place] [address] [phone] Empyema of right pleural space (HCC) (Primary Dx); Secondary spontaneous pneumothorax; Pneumonia of lower lobe due to infectious organism, unspecified laterality (HCC) ; Surgery follow-up; Chest tube in place 03/03/2018 [facility] [place] [address] [address] [place], [place] [id number] Social History Date Tobacco Use Types Packs/Day [...] travel history available. as of this encounter Last Filed Vital Signs Time Taken Vital Sign Reading 03/03/2018 10:26 AM DAIRY GRAZER Blood Pressure 110/78 03/03/2018 10:26 AM DAIRY GRAZER Pulse 93 03/03/2018 10:26 AM DAIRY GRAZER Temperature 36.5 C (97.7 F) - Respiratory Rate - 03/03/2018 10:26 AM DAIRY GRAZER Oxygen Saturation 96% - Inhaled Oxygen - Concentration 03/03/2018 10:26 AM DAIRY GRAZER Weight 66.9 kg (147 lb 6.4 oz) 03/03/2018 10:26 AM DAIRY GRAZER Height 182.9 cm (6') 03/03/2018 10:26 AM DAIRY GRAZER Body Mass Index 19.99 in this encounter Functional Status Date of Assessment [...] as of this encounter Progress Notes * Mohan Ayala MD - 03/03/2018 10:45 AM DAIRY GRAZER Date of Service: 03/03/2018 Subjective: Darrius Salas is a 62 y.o. male. History of Present IllnessDarrius Salas, a 62 y.o. was admitted 01/21/2018 from inpatient rehab facility for loculated pneumothorax, in the setting of pneumonia and empyema. 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 On 01/28/2018 the patient went for staged surgery for right lung decortication with Dr. Ayala for partially loculated right hydropneumothorax and extensive right lung consolidation. Two separate chest tubes were placed and the patient was sent to the ICU in stable condition. Postop CT on 01/31/2018 showed a significant decrease in size of a now small, loculated right hydropneumothorax and marked emphysema. The chest tubes continued to drain minimal amounts of serous drainage , so the tubes were Y'd together to a Mini [facility] on 02/01/2018 with the plan to keep the tubes at discharge. Daily chest xrays showed slow improvements with diffuse right lung and patchy left lung opacities likely multifocal infection and stable right pleural effusion. He was discharged back to inpatient rehab 02/02/2018 and will be followed up with in rehab by infectious disease and in the thoracic surgery clinic after discharged from rehab to address the chest tube duration. He was discharged from rehab on room air and po Augmentin and Cresemba. CXR today demonstrates: 1. Slight inferior migration of lateral right basal chest tube. 2. Improved multifocal right greater than left lung consolidation suggesting improving infection. Given persistent right upper lobe nodularity and left midlung zone nodule, advise continued radiographic follow-up to complete resolution. 3. Tiny locule of air at the right lung apex compatible with pneumothorax. CT chest today: 1. Slight decrease in size of a [...] a left pleural effusion. 5. Marked emphysema. Today he states that he is doing much better. He has been released from rehab and currently staying at home. Using a cane to get around He reports about 30 cc of output from Chest tube every 2 days. He denies increased cough, hemoptysis , increased shortness of air, chest pain, dysphagia, dyspepsia, abdominal pain, change in bowel habits, fevers, chills, night sweats, unintentional weight loss , new headaches, and bone pain. ROS Constitution: Positive for weakness, malaise/fatigue and weight loss. HENT: Positive for congestion. Eyes: Negative. Cardiovascular: Positive for chest pain and dyspnea on exertion. Respiratory: Positive for cough, shortness of breath, sputum production and wheezing. Endocrine: Negative. Hematologic/Lymphatic: Negative. Skin: Negative. Musculoskeletal: Positive for muscle weakness. Gastrointestinal: Negative. Genitourinary: Negative. Psychiatric/Behavioral: Positive for depression. The patient has insomnia. Objective: acetaminophen (TYLENOL) 500 mg tablet Take two tablets by mouth three times daily as needed. Max of 4,000 mg of acetaminophen in 24 hours. albuterol (PROAIR HFA, VENTOLIN HFA, OR PROVENTIL HFA) 90 mcg/actuation inhaler Inhale two puffs by mouth into the lungs twice daily. Shake well before use. amoxicillin/K clavulanate (AUGMENTIN) 875/125 mg tablet Take one tablet by mouth twice daily with meals. Take with food. bacitracin 500 unit/g topical ointment apply to ear wounds twice per day digoxin (LANOXIN) 125 mcg tablet Take one tablet by mouth daily. fluticasone (FLONASE) 50 mcg/actuation nasal spray Apply two sprays to each nostril as directed daily. Shake bottle gently before using. furosemide (LASIX) 20 mg tablet Take one tablet by mouth twice daily. guaiFENesin LA (MUCINEX) 600 mg tablet Take one tablet by mouth twice daily. isavuconazonium sulfate (CRESEMBA) 186 mg capsule Take two capsules by mouth daily until gone. magnesium chloride (MAG DELAY) 535 mg (64mg elemental) tablet Take one tablet by mouth twice daily. melatonin 3 mg tab Take one tablet by mouth at bedtime daily. metoprolol tartrate (LOPRESSOR) 25 mg tablet Take one-half tablet by mouth twice daily. ondansetron (ZOFRAN) 4 mg tablet Take one tablet by mouth every 8 hours as needed for Nausea or Vomiting. pantoprazole DR (PROTONIX) 40 mg tablet Take one tablet by mouth twice daily. potassium chloride 20 mEq/15 mL oral solution Take 15 mL by mouth daily. umeclidinium-vilanterol (ANORO ELLIPTA) 62.5-25 mcg/actuation inhaler Inhale one puff by mouth into the lungs daily. vitamin A & D oint Apply topically to affected area daily. vitamins, multi w/minerals 9 mg iron-400 mcg tab Take one tablet by mouth daily. Vitals: 03/03/18 1026 BP: 110/78 Pulse: 93 Temp: 36.5 C (97.7 F) SpO2: 96% Weight: 66.9 kg (147 lb 6.4 oz) Height: 1.829 m (6') Body mass index is 19.99 kg/m. Physical Exam Constitutional: He is oriented to person, place, and time. He appears well- developed and well-nourished. HENT: Head: Normocephalic and atraumatic. Eyes: EOM are normal. Pupils are equal, round, and reactive to light. Neck: Neck supple. No JVD present. Cardiovascular: Normal rate and regular rhythm. Pulmonary/Chest: Effort normal and breath sounds normal. No stridor. Abdominal: Soft. Bowel sounds are normal. Musculoskeletal: Normal range of motion. He exhibits no edema. Neurological: He is alert and oriented to person, place, and time. Skin: Skin is warm. No rash noted. Psychiatric: He has a normal mood and affect. His behavior is normal. Assessment and Plan: 1. Empyema of right pleural space (HCC) 2. Secondary spontaneous pneumothorax 3. Pneumonia of lower lobe due to infectious organism, unspecified laterality ( HCC) 4. Surgery follow-up 5. Chest tube in place Overall, we are very pleased with Darrius Salas postoperative progress. See plan detailed below. 1. CT scan reviewed. Decrease in loculated hydropneumothorax. Chest tubes output has been minimal, without airleak. Both chest tubes were removed. Post removal CXR pending 2. Silk stay sutures will need to be removed in 14 days. Advised patient to follow up with his PCP for suture removal 3- Continue to follow up with ID. Please do not hesitate to contact us with any questions or concerns. 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 He is currently in a rehab facility. He has 2 chest tubes connected to a mini 500. CT scan of the chest was obtained today which demonstrates marked improvement in the lung parenchyma as well as pleura. 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 The patient's chest drains were removed in clinic today after physical examination concluded there was no air leak. A post chest drain removal x-ray is pending. Will coordinate care with his other physicians regarding long-term infectious disease follow-up. I spoke with Dr. Messina who will f/u with patient in the next 1-2 months. Mohan Ayala MD Thoracic Surgery [facility] G[facility]ER in this encounter Plan of Treatment Not on fileas of this encounter Results * CHEST 2 VIEWS (03/03/2018 12:46 PM DAIRY GRAZER) Impressions Performed At 1.Removal of 2 right-sided [...] Interface, Radiant Results - 03/03/2018 4:29 PM DAIRY GRAZER CHEST 2 VIEWS Clinical Indication: Male, 62 [...] CT CHEST WO CONTRAST (03/03/2018 11:30 AM DAIRY GRAZER) Impressions Performed At 1. Slight decrease in [...] Interface, Radiant Results - 03/03/2018 12:[address] Chest . Clinical Indication: Male, 62 [...] pleural effusion. 5. Marked emphysema. Finalized by GABREILA WALLIS M.D. on 03/03/2018 12:12 PM. Dictated by GABRIELA WALLIS M.D. on 03/03/2018 11:47 AM. Performing Organization Address City/State/Zipcode Phone Number [facility] RESULTS in this encounter Visit Diagnoses Diagnosis Empyema of right pleural space (HCC) - Primary Empyema without mention of fistula Secondary spontaneous pneumothorax Pneumonia of lower lobe due to infectious organism, unspecified laterality ( HCC) Surgery follow-up Follow-up examination, following unspecified surgery Chest tube in place in this encounter
--- OUTSIDE RECORDS SUMMARY | 2018-03-30 14:02 | XMS REPORT | Encounter Summary ---
Author Author [facility] Organization [facility] Address Unknown Phone Unavailable Care Team Providers Care Solid Waste Engineer Name Role Phone SebMai Unavailable Unavailable Samir Lopez MD Unavailable Unavailable Samara Lugo RN Unavailable Unavailable Flavio Jackson MD PCP Reason for Visit * Auth/Cert Referred By Contact Referred To Contact Status Reason Specialty Diagnoses / Procedures Diagnoses Critical illness myopathy DEBILITY Encounter Details Care Team Description Date Type Department Beatriz Ortiz MD [address] [facility] [address] [place] [address] Critical illness myopathy 02/02/2018 Hospital R ACUTE REHAB UNIT - Encounter [id number] [facility] 02/21/2018 [place] [address] Social History Date Tobacco Use Types Packs/Day [...] Vital Signs Time Taken Vital Sign Reading 02/21/2018 8:06 AM AIR PRESS OPERATOR Blood Pressure 132/85 02/21/2018 8:06 AM AIR PRESS OPERATOR Pulse 104 02/21/2018 8:06 AM AIR PRESS OPERATOR Temperature 36.7 C (98 F) - Respiratory Rate - 02/21/2018 8:06 AM AIR PRESS OPERATOR Oxygen Saturation 96% - Inhaled Oxygen - Concentration 02/21/2018 4:30 AM AIR PRESS OPERATOR Weight 67.6 kg (149 lb) 02/02/2018 4:48 PM AIR PRESS OPERATOR Height 182.9 cm (6') 02/21/2018 4:30 AM AIR PRESS OPERATOR Body Mass Index 20.21 in this encounter Functional Status Date of [...] cognitive impairment: No as of this encounter Discharge Summaries * Beatriz Ortiz MD - 02/21/2018 11:30 AM AIR PRESS OPERATOR ATTESTATION: I have reviewed the discharge summary and agree with the resident's documentation. The patient was seen today and remained stable for discharge. The patient discharged home with assistance from family. Follow up instructions including appointments were provided and prescriptions were provided. Patient understands signs to look out for that would require to call a doctor(s) and/or call 911. Critical Illness Myopathy, Acute on chronic hypoxic respiratory failure, Legionella pneumonia (PNA), invasive necrotizing aspergillosis PNA, HSV & CMV PNA, Proteus Mirabilis PNA with residual Decreased pulmonary reserve, Generalized weakness, Decreased endurance resulting in impaired mobility/ADLs, gait abnormality and cognition/communication deficit. Patient met overall goal of mod I with 4 wheeled walker, TB, commode at household level by time of rehab discharge. Discharge home today with HH PT/OT/RN. Patient knows to follow up with PCP, CTS (not scheduled, but given clinic info). Patient knows not to return to work or driving until cleared by outpatient physicians. Family training was completed for mobility, ADLs. Staff name: Beatriz Ortiz MD Physician Discharge Summary Name: Darrius Salas Date Of : 1955 Age: 62 years Admit date: 02/02/2018 Discharge date: 02/21/2018 Attending Physician: Dr. 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 Godfrey. Allergies: Patient has no known allergies. Admission Physical Exam notable for: Gen: Alert & Oriented X 3, No Acute Distress HEENT: NCAT, PERRL, EOMI, MMM Neck: Supple, no elevated JVP Heart: Regular Rate & Rhythm, no m/g/r Lungs: Clear to auscultation bilaterally, upper airway sounds, right chest tube in place, serous drainage, on 2L NC Abdomen: Soft, non-tender, non-distended, +BS Skin: Bruising in multiple stages of healing throughout Ext: 1+ pitting edema in b/l LE MS: Root Right Left Shoulder Abduction C5 4 4 Elbow Flexion C5 4 4 Elbow Extension C7 4 4 Wrist Extension C6 5 5 Finger Flexion C8 5 5 Finger Abduction T1 5 5 Hip Flexion L2 3 3 Knee Flexion L5/S1 4 4 Knee Extension L3 4 4 Dorsiflexion L4 4 4 Plantarflexion S1 4 4 EHL Extension L5 4 4 Neuro: Cranial Nerves Cranial Nerves 2-12 are grossly intact DTR's No hyperreflexia noted Rapid Alternating Movements Normal Upper Extremity Tone Normal Lower Extremity Tone Normal Upper Extremity Sensation Intact to light touch bilaterally Lower Extremity Sensation Intact to light touch bilaterally Clonus Negative Bilaterally Proprioception Intact Bilaterally Memory/Cognition/Speech Memory intact, speech fluent, non-apshasic Admission Lab/Radiology studies notable for: Cr 1.4, WBC 11.1, Hgb 7.7, MCV 102.5 Brief Hospital Course: The patient was admitted and the following issues were addressed during this hospitalization: (with pertinent details). Mr. Salas is a 62-year-old male with a past medical history of COPD, tobacco use, A. fib on Xarelto, CAD status post PCI who was originally admitted to the hospital with multi-organism pneumonia after multiple intubations and PEA arrest. He was discharged from rehab back to the acute hospital for worsening respiratory failure and found to have a loculated hydropneumothorax. He was readmitted to rehab after chest tube placement and decortication improved his respiratory status. 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 Infectious disease was on board throughout his rehab stay and he was discharged on January and p.o. Augmentin for 1 week in 2 weeks respectively. He was discharged with mini atrium chest tube in place. He will follow-up with cardiothoracic surgery as an outpatient for removal. Oxygen studies were done prior to discharge and the patient was discharged without any oxygen needs. Rehab stay was complicated by intermittent hematochezia which improved with PPI twice daily. Patient will follow up with his PCP for this. For his A. fib, the patient was discharged on metoprolol and digoxin. Patient met his goal of modified with 4 old walker, TV , commode at household level by the time of rehab discharge. He was discharged home with home health PT/OT/RN. Evaluation FIMS Current FIMS Eating FIM: 6 - Modified independence - Extra Time (3 times normal) Grooming FIM: 4 - Contact guard assistance Bathing FIM: 3 - Moderate assistance, patient performs 50-74% or more of grooming/bathing/dressing/toileting tasks Dressing - Upper Body FIM: 5 - Set up Dressing - Lower Body FIM: 3 - Moderate assistance, patient performs 50-74% or more of grooming/bathing/dressing/toileting tasks Toileting FIM: 4 - Minimal contact assistance, patient performs 75% or more of grooming/bathing/dressing/toileting tasks Bladder FIM: 5 - Emptying device by staff Bowel FIM: 7 - No bowel movement, no medication Transfers FIM: 3 - Moderate assistance, patient performs 50-74% of transferring tasks (lifting required) Toilet Transfers FIM: 3 - Moderate assistance, patient performs 50-74% of transferring tasks (lifting required) Shower Transfers FIM: 3 - Moderate assistance, patient performs 50-74% of transferring tasks (lifting required) Gait: 1 - Toal assistance, two or more people, < 50 feet Stairs FIM: 0 - Activity did not occur - Unable due to motor control Comprehension FIM: 7 - Complete independence Expression FIM: 7 - Complete independence - Able to express complex/abstract ideas clearly and fluently Social Interaction FIM: 6 - Modified independence - Able to interact in most situations and no prompting required Problem Solving FIM: 6 - Modified independence - Able to recognize problems with only mild difficulty, makes appropriate decisions, initiates and carries out a sequence of steps to solve complex problems, no prompting Memory FIM: 7 - Complete independence - Recognizes people frequently encountered , remembers daily routines, executes requests of other without need for repetition Eating FIM: 7 - Complete independence Grooming FIM: 6 - Modified independence - Safety Concern Bathing FIM: 6 - Modified independence - Safety Concern Dressing - Upper Body FIM: 6 - Modified independence - Extra Time (3 times normal) Dressing - Lower Body FIM: 6 - Modified independence - Safety Concern Toileting FIM: 5 - Set up Bladder FIM: 5 - Emptying device by staff Bowel FIM: 6 - No bowel movement, medication Transfers FIM: 5 - Cues Toilet Transfers FIM: 6 - Modified independence - Safety Shower Transfers FIM: 0 - Activity did not occur - Other (comments)(sponge bath) Gait: 2 - Maximal assistance, patient expends 25-49% effort, requires one person assist, greater than or equal to 50-149 feet Stairs FIM: 2 - Maximal assistance, patient expends 25-49% effort, greater than or equal to 4-6 stairs Comprehension FIM: 5 - Standby prompting. Understands abstract and/or basic information greater than 90% of the time, prompting less than 10% Expression FIM: 5 - Standy prompting - Able to express abstract and/or basic information >90% of the time, prompting <10% Social Interaction FIM: 6 - Modified independence - Able to interact and may require medication for control Problem Solving FIM: 4 - Minimal prompting - Able to solve routine problems 75- 90% Memory FIM: 3 - Moderate promting - Able to recognize people frequently encountered, remembers daily routines, responds to requests of others 50-74% of the time, needs prompting less than half of the time Physical Therapy Current Recommendations/Plan/Goals Plan Comments: increase ambulation distance and endurance; increase upright tolerance ; nustep; step/stair training when tolerated Recommendations PT Discharge Recommendations: Home with Assistance, Home Health Setting Equipment Recommendations: Walker - Roller(4-wheeled walker) Expected Discharge Date: 02/21/18 Weekly Goals Weekly Bed Mobility Goals: Patient will perform sit to supine with, Patient will perform supine to sit with Patient will perform sit to supine with: Modified independent, Achieved Patient will perform supine to sit with: Modified independent, Achieved Weekly Transfer Goals: Patient will complete sit to stand transfer with, Patient will complete stand to sit transfer with, Patient will complete stand pivot transfer with Patient will complete sit to stand transfer with: Modified independent, Adequate for discharge Patient will complete stand to sit transfer with: Modified independent, Adequate for discharge Patient will complete stand pivot transfer with: Modified independent, Adequate for discharge Weekly Ambulation/Stairs Goals: Patient will ambulate, Patient will ascend/ descend Patient will ambulate: 50 feet, Minimum assistance, Achieved Patient will ascend/descend: 2 stairs, Minimum assistance, Progressing, Achieved Goal(s) for the Stay Patient will perform: at ambulation level, household mobility, Least assistive device, Modified independent, Adequate for discharge Occupational Therapy Current Recommendations/Plan/Goals Recommendations OT Discharge Recommendations: Home with Home Health, Home with family assist, Available help at home OT Equipment Recommendations: Bath tub bench, Grab bar(s), Shower hose Additional Information: Pt reports he will have consistent support/supervision upon d/c to home. Expected Discharge Date: 02/21/18 Recommendations OT Discharge Recommendations: Home with Home Health, Home with family assist, Available help at home OT Equipment Recommendations: Bath tub bench, Grab bar(s), Shower hose Additional Information: Pt reports he will have consistent support/supervision upon d/c to home. Expected Discharge Date: 02/21/18 Goals for the stay Pt will perform basic care and transfer with: Supervision, Roller walker level( support for higher level homemaking tasks.) Condition at Discharge: Stable Discharge Diagnoses: Hospital Problems Active Problems * (Principal) Critical illness myopathy CHF (congestive heart failure) ([facility]) CAD (coronary artery disease) Paroxysmal 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 ([facility]) longterm current use of anticoagulant COPD (chronic obstructive pulmonary disease) ([facility]) HTN (hypertension) HLD (hyperlipidemia) S/P ablation of 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 Pneumonia Cytomegalovirus (CMV) viremia ([facility]) Impaired mobility and activities of daily living Loculated pleural effusion Acute on chronic respiratory failure with hypoxia and hypercapnia ([facility]) 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 Moving around can help prevent blood clots, lung infection (pneumonia ) and other problems. Gradually increasing the number of times you are up moving around will help you return to your normal activity level more quickly. Continue to increase the number of times you are up to the chair and walking daily to return to your normal activity level. Begin to work toward your normal activity level at discharge Report These Signs and Symptoms Please contact your doctor if you have any of the following symptoms: temperature higher than 100 degrees F, uncontrolled pain, persistent nausea and/ or vomiting, difficulty breathing, chest pain, severe abdominal pain, headache, unable to urinate, unable to have bowel movement or drainage with a foul odor Questions About Your Stay For questions or concerns regarding your hospital stay. Call [phone] Esquivel to schedule a follow-up appointment to get chest tube removed. His office can be contacted at [phone], ask to make an outpatient appointment with the cardiothoracic surgery team, and they should transfer you to the correct team. Discharging attending physician: BEATRIZ ORTIZ [[id number]] Regular Diet You have no dietary restriction. Please continue with a healthy balanced diet. Wound Care Grdinovac, gauze 4x4, primapore cover dressing every other day around chest tube site. Criticaid barrier cream to wound on buttocks twice per day. Ears (daily) - Contact RT for foam offloading devices for oxygen tubing. - Assess fit of tubing and adjust accordingly to prevent tension on ears. - Bacitracin ointment to wound BID. This will require order from primary team. Current Discharge Medication List START taking these medications Details amoxicillin/K clavulanate (AUGMENTIN) 875/125 mg tablet Take one tablet by mouth twice daily with meals. Take with food. Qty: 28 tablet, Refills: 0 PRESCRIPTION TYPE: Normal bacitracin 500 unit/g topical ointment apply to ear wounds twice per day Qty: 28 g, Refills: 0 PRESCRIPTION TYPE: Normal magnesium chloride (MAG DELAY) 535 mg (64mg elemental) tablet Take one tablet by mouth twice daily. Qty: 90 each, Refills: 1 PRESCRIPTION TYPE: Normal potassium chloride 20 mEq/15 mL oral solution Take 15 mL by mouth daily. Qty: 473 mL, Refills: 1 PRESCRIPTION TYPE: Normal CONTINUE these medications which have been CHANGED or REFILLED Details acetaminophen (TYLENOL) 500 mg tablet Take two tablets by mouth three times daily as needed. Max of 4,000 mg of acetaminophen in 24 hours. Refills: 0 PRESCRIPTION TYPE: OTC albuterol (PROAIR HFA, VENTOLIN HFA, OR PROVENTIL HFA) 90 mcg/actuation inhaler Inhale two puffs by mouth into the lungs twice daily. Shake well before use. Qty: 6.7 g, Refills: 0 PRESCRIPTION TYPE: Normal digoxin (LANOXIN) 125 mcg tablet Take one tablet by mouth daily. Qty: 90 tablet, Refills: 0 PRESCRIPTION TYPE: Normal fluticasone (FLONASE) 50 mcg/actuation nasal spray Apply two sprays to each nostril as directed daily. Shake bottle gently before using. Qty: 48 g, Refills: 3 PRESCRIPTION TYPE: Normal furosemide (LASIX) 20 mg tablet Take one tablet by mouth twice daily. Qty: 90 tablet, Refills: 1 PRESCRIPTION TYPE: Normal guaiFENesin LA (MUCINEX) 600 mg tablet Take one tablet by mouth twice daily. Qty: 180 tablet, Refills: 0 PRESCRIPTION TYPE: Normal isavuconazonium sulfate (CRESEMBA) 186 mg capsule Take two capsules by mouth daily until gone. Qty: 14 capsule, Refills: 0 PRESCRIPTION TYPE: Normal melatonin 3 mg tab Take one tablet by mouth at bedtime daily. PRESCRIPTION TYPE: OTC metoprolol tartrate (LOPRESSOR) 25 mg tablet Take one-half tablet by mouth twice daily. Qty: 90 tablet, Refills: 0 PRESCRIPTION TYPE: Normal ondansetron (ZOFRAN) 4 mg tablet Take one tablet by mouth every 8 hours as needed for Nausea or Vomiting. Qty: 90 tablet, Refills: 1 PRESCRIPTION TYPE: Normal pantoprazole DR (PROTONIX) 40 mg tablet Take one tablet by mouth twice daily. Qty: 60 tablet, Refills: 0 PRESCRIPTION TYPE: Normal umeclidinium-vilanterol (ANORO ELLIPTA) 62.5-25 mcg/actuation inhaler Inhale one puff by mouth into the lungs daily. Qty: 60 each, Refills: 2 PRESCRIPTION TYPE: Normal vitamin A & D oint Apply topically to affected area daily. Qty: 113 g, Refills: 0 PRESCRIPTION TYPE: Normal vitamins, multi w/minerals 9 mg iron-400 mcg tab Take one tablet by mouth daily. Qty: 30 tablet, Refills: 2 PRESCRIPTION TYPE: Normal The following medications were removed from your list. This list includes medications discontinued this stay and those removed from your prior med list in our system acetylcysteine (MUCOMYST) 200 mg/mL (20 %) solution ascorbic acid (VITAMIN C) 500 mg tablet cholecalciferol (VITAMIN D-3) 400 unit tab tablet dextran 70/hypromellose (GENTEAL TEARS; BION TEARS) 0.1/0.3 % dpet ophthalmic solution enoxaparin (LOVENOX) 40 mg injection syringe lidocaine (LIDODERM) 5 % topical patch magnesium oxide (MAG-OX) 400 mg (241.3 mg magnesium) tablet oxyCODONE (ROXICODONE, OXY-IR) 5 mg tablet phenol (CLORASEPTIC; PHENASEPTIC) 1.4 % spra piperacillin/tazobactam (ZOSYN) 3.375 g/15 mL 3.375 g in sodium chloride 0.9% ( NS) 0.9 % 100 mL IVPB (MB+) senna (SENOKOT) 8.6 mg tablet thiamine mononitrate 100 mg tablet Scheduled appointments: Mar 10, 2018 9:00 AM AIR PRESS OPERATOR Return Patient with Melinda Escobar MD [facility] ([facility]) [facility] [address] [facility] [id number] Pending items needing follow up: - f/u /CTS after discharge for chest tube - will put his number in discharge instructions - PCP: f/u hematochezia and titrate off PPI as appropriate Signed: Michael Vegas MD 02/21/2018 cc: Primary Care Physician: Flavio Jackson Referring physicians: Flavio Jackson MD Additional provider(s): PRESS OPERATOR in this encounter Discharge Instructions * Discharge Instr - Diet* Patrica Zapien - 02/17/2018 4:33 PM AIR PRESS OPERATOR Dietitian Discharge Recommendations: 1) As your intake improves, increase prebiotics and probiotics into your diet. Long-term use of antibiotics can deplete the good bacteria in your gi ( gastrointestinal tract). Pre and pro-biotics are good for managing good balance in your gi, keeping you healthier. 2) If unable to meet needs through diet, ask your doctor about a probiotic supplement. 3) Continue use of protein supplements as needed until intake has resumed to normal. a. Any protein supplement will do; choose what you like. b. Note, there are many options on the market. A plus version will provide you with more of a meal replacement. Anything under 200 calories with little carbohydrates, is considered a snack. A complete meal has a good carb to protein ratio (i.e. Boost Plus contains 45g carbs:14g protein). About 20-30g protein per meal is adequate for you. c. You can always try a smoothie: serving of protein powder or Malaysian Yogurt, 1 cup frozen fruit, some frozen spinach, milk to preferred consistency, added flavor such as cocoa or honey 4) Choose adequate protein sources per meal a. Animal protein provides the best sources: dairy, meat, fish, eggs. b. Vegetable sources require larger servings to meet same protein goals, but are encouraged: beans, nuts, seeds, legumes, quinoa, soy/tempeh 5) As able, resume a balanced, healthy diet full of all food groups (fruits, vegetables, lean dairy and meat, whole grains, nuts, seeds, legumes, healthy fats -olive and canola oil, avocado, nuts/seeds) a. It is okay if comfort foods are best tolerated at first; calories and protein are 1st priority while getting back to your baseline appetite. 6) Would continue multi-vitamin until intake has resumed to normal Good sources of Prebiotics (fruits, vegetables, whole grains): Bananas Asparagus Onion, garlic, leeks Artichokes Good sources of Probiotics (foods with live cultures): Yogurt (suggest Malaysian Yogurt for increased protein needed for recent weight loss and loss of muscle mass) Kefir Aleksandra Stallworth Patrica Zapien, CRISTINO, LD [facility] Dietitian * [phone] Prebiotics and Probiotics: Creating a Healthier You Reviewed by Radha Noonan, MS, RDN, LDN Published April 13, 2017 [email or web address] You've probably heard of prebiotics and probiotics, but do you know what they are? Nutrition research has pinpointed specific functional components of foods that may improve health, and prebiotics and probiotics are two such substances. Although they are available as dietary supplements, it is not necessary to use special pills, potions, cleanses or other concoctions to incorporate prebiotics and probiotics into your diet. These "nutrition boosters" are natural ingredients in everyday food While research continues in this area of nutrition investigating how effective and safe these substances are and how much we need to obtain health benefits here's what we know now. What Are Prebiotics and What Do They Do? Prebiotics are natural, non-digestible food components that are linked to promoting the growth of helpful bacteria in your gut. Simply said, they're "good " bacteria promoters. That's right, not all bacteria are bad! Prebiotics may improve gastrointestinal health as well as potentially enhance calcium absorption. Prebiotics in Your Diet Prebiotics include fructooligosaccharides, such as inulin and galactooligosaccharides. But rather than focusing on these lengthy words, include more prebiotics in your diet by eating more fruits, vegetables and whole grains such as bananas, onions, garlic, leeks, asparagus, artichokes, soybeans and whole-wheat foods. What Are Probiotics and What Do They Do? Probiotics are the "good" bacteria or live cultures just like those naturally found in your gut. These active cultures help change or repopulate intestinal bacteria to balance gut alvaro. This functional component may boost immunity and overall health, especially GI health. For instance, probiotics have been used for management of irritable bowel syndrome symptoms. Probiotics in Your Diet To obtain more probiotics, look to fermented dairy foods including yogurt, kefir products and aged cheeses, which contain live cultures (for example, bifidobacteria and lactobacilli). Be sure include plenty of non-dairy foods which also have beneficial cultures, including kimchi, sauerkraut, miso, tempeh and cultured non-dairy yogurts. What Makes Prebiotics and Probiotics the "Dynamic Duo?" Ultimately, prebiotics, or "good" bacteria promoters, and probiotics, or "good" bacteria, work together synergistically. In other words, prebiotics are breakfast, lunch and dinner for probiotics, which restores and can improve GI health. Products that combine these together are called synbiotics. On the menu , that means enjoying bananas atop yogurt or stir-frying asparagus with tempeh is a win-win. The bottom line: At a minimum, prebiotics and probiotics are keys for good gut health, which affects many other areas of the body. Incorporating health-promoting functional foods, such as foods containing prebiotics and probiotics, into the diet aids in creating a healthier you. For specific advice on obtaining prebiotics and probiotics for your own specific health needs, especially if you have GI issues or a weakened immune system, contact a registered dietitian vegetable washer. PRESS OPERATOR * Rehab Team Physician* Nela Santoro MD - 02/08/2018 5:36 PM AIR PRESS OPERATOR Patient remains on IV zosyn at this time per ID. He has had some bloody BM this week, but vitals and hemoglobin stable. May require transfer to acute care if worsens. However, oxygen requirement continues to improve. No other changes. PRESS OPERATOR * Rehab Team PT Barriers and Concerns* Ld Cunningham OT - 02/07/2018 1:18 PM AIR PRESS OPERATOR Ongoing nausea around pills/meals impacting participation Weakness and fatigue fatigues quickly with ADLs Slow progress due to limited participation in therapy Stomach/GI impacting progress. (every time IV antibiotics run) 3 lpm with activity. PRESS OPERATOR * Rehab Team PT Progression* Ld Cunningham OT - 02/07/2018 1:19 PM AIR PRESS OPERATOR Improved sit to stands; minimal assist from higher surfaces Contact guard assist with 4-wheel walker when ambulating Stand by assist with most ADls in seated position PRESS OPERATOR * Rehab Team DC Planning* Ld Cunningham OT - 02/07/2018 1:20 PM AIR PRESS OPERATOR Plan Home with Home health PT/OT DME Tub transfer bench; 4-wheel walker PRESS OPERATOR * Rehab Team Weekly Goals* Ld Cunningham OT - 02/07/2018 1:20 PM AIR PRESS OPERATOR Up to chair 3 hours/day Ambulate to bathroom with staff Meals/snack before medication PRESS OPERATOR in this encounter Medications at Time of Discharge [...] daily until gone. as of this encounter Progress Notes * Osvaldo Lim RN - 02/21/2018 11:13 AM AIR PRESS OPERATOR Darrius Salas discharged on 02/21/2018.Pt was given discharge instructions and follow up appointments, pt verbalized understanding. PICC line was discontinued. Son went to RX and picked up one medication. . Discharge instructions reviewed with patient. Valuables returned: Personal Items / Valuables: Cell Phone, Clothing, Eyeglasses/Contacts. Home medications: . Functional assessment at discharge complete: Yes . PRESS OPERATOR * Beatriz Ortiz MD - 02/21/2018 10:31 AM AIR PRESS OPERATOR ATTESTATION I personally performed the gaytan portions of the E/M visit, discussed case with resident and concur with resident documentation of history, physical exam, assessment, and treatment plan unless otherwise noted. Pt feels ready for home. Labs and VS reviewed and replace K+ today, will start daily KCl for home. O2 studies reviewed and patient now on room air. CTS aware of d/c date and will give pt clinic number to schedule f/u. The patient was seen today and remained stable for discharge. The patient discharged home with assistance from family. Follow up instructions including appointments were provided and prescriptions were provided. Patient understands signs to look out for that would require to call a doctor(s) and/or call 911. Critical Illness Myopathy, Acute on chronic hypoxic respiratory failure, Legionella pneumonia (PNA), invasive necrotizing aspergillosis PNA, HSV & CMV PNA, Proteus Mirabilis PNA with residual Decreased pulmonary reserve, Generalized weakness, Decreased endurance resulting in impaired mobility/ADLs, gait abnormality and cognition/communication deficit. Patient met overall goal of mod I with 4 wheeled walker, TB, commode at household level by time of rehab discharge. Discharge home today with HH PT/OT/RN. Patient knows to follow up with PCP, CTS (not scheduled, but given clinic info). Patient knows not to return to work or driving until cleared by outpatient physicians. Family training was completed for mobility, ADLs. Staff name: Beatriz Ortiz MD Date: 02/21/2018 Physical Medicine & Rehabilitation Progress Note Today's Date: 02/21/2018 Admission Date: 02/02/2018 LOS: 19 days Insurance: Medicare Principal Problem: Critical illness myopathy Active Problems: CHF (congestive heart failure) (HCC) CAD (coronary artery disease) Paroxysmal 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 (HCC) longterm current use of anticoagulant COPD (chronic obstructive pulmonary disease) (HCC) HTN (hypertension) HLD (hyperlipidemia) S/P ablation of 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 Pneumonia Cytomegalovirus (CMV) viremia (HCC) Impaired mobility and activities of daily living Loculated pleural effusion Acute on chronic respiratory failure with hypoxia and hypercapnia (HCC) Pulmonary aspergillosis invasive type (HCC) COPD, severe (HCC) Secondary spontaneous pneumothorax Legionella pneumonia (HCC) Atrial fibrillation with RVR (HCC) Empyema of right pleural space (HCC) Moderate malnutrition (HCC) Assessment/Plan: Mr. Darrius Salas is a 62 yo M with PMH of COPD on 2-3L QHS, tobacco use, Afib on Xarelto, CAD s/p PCI (2012) who was originally admitted to rehab with multi- organism PNA after multiple intubations and PEA arrest. He was re-admitted to [facility] for loculated hydropneumothorax and is now s/p chest tube placement and decortication. Patient presents to IRF with critical illness myopathy, generalized weakness, decreased endurance, and impaired mobility and ADLs warranting PT/OT therapies. Rehabilitation Plan Rehabilitation: Patient will continue with comprehensive therapies including physical therapy, occupational therapy, speech & language pathology, specialized rehab nursing, neuropsychology and physiatry oversight. Goals: Mod I to SBA Tentative discharge date: 02/21/18 Recommended therapy after discharge: Home health with PT/OT Recommended equipment: Tub transfer bench; 4-wheel walker; elevated toilet seat/ commode over the toilet Daily Functional Update: Transfers Device Sit to Stand Transfer: Assistive Device: 4-Wheeled Walker (02/20/2018 1:00 PM) No Data Recorded Gait Device Assist Required Distance Gait: Assistive Device: 4-Wheeled Walker (02/20/2018 1:00 PM) No Data Recorded Gait Distance: 150 feet (75 feet x2) (02/18/2018 3:00 PM) Toileting Assist Required Equipment Toilet Transfer Toileting Assist: Modified Independent (02/20/2018 10:00 AM) Toileting Equipment: Grab bar - left (02/20/2018 10:00 AM) No Data Recorded Dressing Lower Body LE Dressing Assist: Modified Independent (02/20/2018 10:00 AM) Critical Illness Myopathy Acute on chronic hypoxic respiratory failure Legionella pneumonia (PNA), invasive necrotizing aspergillosis PNA, HSV & CMV PNA, Proteus Mirabilis PNA Decreased pulmonary reserve Generalized weakness Decreased endurance Impaired mobility and ADLs - s/p x3 intubation/extubations - s/p PEA arrest (extubated 11/24) - s/p treatment with vancomyin, linezolid, zosyn, valacyclovir, micafungin , valcyte - blood culture NGTD, UA neg, sputum culture normal alvaro >ID following, continue antibiotics Cresemba 372mg QD. Zosyn switched to PO augmentin, likely with only 2 weeks more after discharge >Continue aggressive pulmonary hygiene with Aerobika and IS >Consult PT/OT Right sided pleural effusion and empyema Loculated hydropneumothorax s/p chest tube x 2 01/22, positive for empyema S/p decortication of pleural effusion 01/[address] Xiao COPD, emphysema Acute on chronic hypoxic respiratory failure - on 2-3L QHS at baseline, currently requiring 1L at rest and 2-3L with exercise - chest tube changed by CTS CUSTOMER SALES SERVICE MANAGER on 02/16 - empty mini atrium PRN, no showering while chest tubes in place, call CTS CUSTOMER SALES SERVICE MANAGER/ PA if issues > Continue albuterol nebs BID and PRN >Continue SENIOR NET SOFTWARE ENGINEER Symbicort BID, flonase BID, and anoro ellipta 1 puff QD > Continue guaifenesin LA 600mg BID > f/u Dr. Altamirano/CTS after discharge for chest tube - will put his number in discharge instructions > no O2 needed per oxygen studies over the weekend Intermittent Hematochezia - resolved - No external hemorrhoids identified on rectal exam, trace blood (bilious) with ROYER on 02/13 - Hgb stable, VS stable - started on pantoprazole BID > Continue to monitor, If becomes unstable transfer for further workup Paroxysmal Atrial Fibrillation with RVR CAD s/p PCI 03/2012 Chronic HFpEF HTN HLD - s/p ablation 2013 - Failed cardioversion at OSH - Previously on amiodarone, d/c'd due to LFTs - 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 xarelto due to chest tube > Continue metoprolol 12.5mg BID > Continue decreased lasix dose today, 20mg BID, titrate up PRN >On digoxin 125mcg daily (level therapeutic), 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 Vasotect, Lipitor >Continue daily weights, CTM Adjustment disorder with depressed and anxious mood: neuropsych following Nausea/vomiting: zofran scheduled with meals, EKG ok, compazine PRN --> nausea improved with switching off zosyn Risk of opioid induced constipation: continue docusate and senna prn Macrocytic anemia, stable, CTM with CBC, transfusion 1U pRBCs 02/09 GERD: PPI Hypomagnesia: continue magnesium replacement Hypokalemia: continue K replacement - will put on scheduled 20mg daily on discharge Malnutrition: continue boost supplements, vit c, vit D, thiamine Pain Management: tylenol 1G TID prn, lidoderm patches Pressure injury left ear stage 3, present on admission: Foam offloading device, assess fit of tubing and adjust accordingly to prevent tension on ears. Apply Bacitracin ointment to wound BID. Pressure injury coccyx/buttocks, stage 1, present on admission: - Apply Criticaid barrier cream BID and PRN to protect skin from moisture related to urine/stool. Bowel: continent of bowel Bladder: continent of bladder, BVIs x3 neg Nutrition: Current diet: regular with boost plus TID Mental Health: consult neuropsychology to provide support / counseling DVT Prophylaxis: Uyen Vegas M.D. Physical Medicine and Rehabilitation, PGY-3 Subjective NEON. Patient resting comfortably in bed this morning. No acute complaints. Feels he's ready for discharge. Objective Vital Signs: Last Filed Vital Signs: 24 Hour Range BP: 132/85 (02/21 805) Temp: 36.7 C (98 F) (02/21 805) Pulse: 104 (02/21 805) Respirations: 18 PER MINUTE (02/21 805) SpO2: 96 % (02/21 805) O2 Delivery: None (Room Air) (02/21 805) BP: (103-132)/(69-85) Temp: [36.5 C (97.7 F)-36.7 C (98.1 F)] Pulse: [65-110] Respirations: [17 PER MINUTE-20 PER MINUTE] SpO2: [91 %-97 %] O2 Delivery: None (Room Air) Vitals: 02/19/18 0600 02/20/18 0455 02/21/18 0430 Weight: 69.4 kg (153 lb 1.6 oz) 68.5 kg (151 lb 0.2 oz) 67.6 kg (149 lb) Intake/Output Summary: (Last 24 hours) Intake/Output Summary (Last 24 hours) at 02/21/2018 1031 Last data filed at 02/21/2018 1000 Gross per 24 hour Intake 240 ml Output 480 ml Net -240 ml Stool Occurrence: 1 Oral Diet Order: Regular Last Bowel Movement Date: 02/20/17 Lab: Results for orders placed or performed during the hospital encounter of (from the past 24 hour(s)) CBC CELLULAR THERAPEUTICS Collection Time: 02/21/18 5:55 AM # # Low-High White Blood Cells 9.1 4.5 - 11.0 K/UL RBC 2.48 (L) 4.4 - 5.5 M/UL Hemoglobin 8.0 (L) 13.5 - 16.5 GM/DL Hematocrit 24.0 (L) 40 - 50 % MCV 96.6 80 - 100 FL MCH 32.1 26 - 34 PG MCHC 33.2 32.0 - 36.0 G/DL RDW 19.8 (H) 11 - 15 % Platelet Count 398 150 - 400 K/UL MPV 6.7 (L) 7 - 11 FL BASIC METABOLIC PANEL CELLULAR THERAPEUTICS Collection Time: 02/21/18 5:55 AM # # Low-High Sodium 137 137 - 147 MMOL/L Potassium 3.1 (L) 3.5 - 5.1 MMOL/L Chloride 104 98 - 110 MMOL/L CO2 29 21 - 30 MMOL/L Anion Gap 4 3 - 12 Glucose 94 70 - 100 MG/DL Blood Urea Nitrogen 6 (L) 7 - 25 MG/DL Creatinine 0.74 0.4 - 1.24 MG/DL Calcium 8.4 (L) 8.5 - 10.6 MG/DL eGFR Non >60 >60 mL/min eGFR >60 >60 mL/min Physical Exam VS: BP 132/85 (BP Source: Arm, Left Upper) | Pulse 104 | Temp 36.7 C (98 F ) | Ht 182.9 cm (72") | Wt 67.6 kg (149 lb) | SpO2 96% | BMI 20.21 kg/m gen - awake, alert, nad heent - nc/at cv - rrr, no murmur pulm - ctab, no w/r, no O2 needed abd - nt, nd, +BS ext - no c/e skin - warm, dry neuro - oriented, speech fluent and clear, appropriate responses to questions, strength 4+/5 BLE Therapy Notes & Labs Reviewed. Michael Vegas M.D. Physical Medicine and Rehabilitation, PGY-3 PRESS OPERATOR * Lamar Rodríguez - 02/21/2018 6:13 AM AIR PRESS OPERATOR Heart Failure Nursing Progress Note Admission Date: 02/02/2018 LOS: 19 days Admission Weight: 75.7 kg (166 lb 12.8 oz) Most recent weights (inpatient): Vitals: 02/19/18 0600 02/20/18 0455 02/21/18 0430 Weight: 69.4 kg (153 lb 1.6 oz) 68.5 kg (151 lb 0.2 oz) 67.6 kg (149 lb) Weight change from previous day: -0.9 kg Fluid restriction ordered: none Intake/Output Summary: (Last 24 hours) Intake/Output Summary (Last 24 hours) at 02/21/2018 0613 Last data filed at 02/20/2018 2101 Gross per 24 hour Intake 240 ml Output 820 ml Net -580 ml Is patient incontinent No Anticipated discharge date: 02-21-18 Discharge goals: ambulate safely Daily Assessment of Patient Stated Goals: Short Term Goal Identified by patient (Short Term=during hospitalization): Complete ADL's independently PRESS OPERATOR * Katheryn Keene RN - 02/20/2018 6:04 PM AIR PRESS OPERATOR Heart Failure Nursing Progress Note Admission Date: 02/02/2018 LOS: 18 days Admission Weight: 75.7 kg (166 lb 12.8 oz) Most recent weights (inpatient): Vitals: 02/18/18 0640 02/19/18 0600 02/20/18 0455 Weight: 67.7 kg (149 lb 3.2 oz) 69.4 kg (153 lb 1.6 oz) 68.5 kg (151 lb 0.2 oz) Weight change from previous day:-0.9 kg Fluid restriction ordered: No Intake/Output Summary: (Last 24 hours) Intake/Output Summary (Last 24 hours) at 02/20/2018 1804 Last data filed at 02/20/2018 1612 Gross per 24 hour Intake 290 ml Output 1530 ml Net -1240 ml Is patient incontinent No Anticipated discharge date: 02/21/2018 Discharge goals: strength Daily Assessment of Patient Stated Goals: Short Term Goal Identified by patient (Short Term=during hospitalization): strength PRESS OPERATOR * Nupur Retana RT - 02/20/2018 1:10 PM AIR PRESS OPERATOR RT Exercise Oximetry Note NAME:Darrius Salas :1955 AGE: 62 y.o. ADMISSION DATE: 02/02/2018 DAYS ADMITTED: LOS: 18 days Date performed: 02/20/2018 Time performed: 1300 Time walked: 6 minutes At Rest While Awake Results Room air at rest while awake: SpO2=96% Room air SpO2 with exercise, if needed: 95% Therapist: RT Paulo PRESS OPERATOR * Merari Fowler MD - 02/20/2018 7:52 AM AIR PRESS OPERATOR Physical Medicine & Rehabilitation Progress Note Today's Date: 02/20/2018 Admission Date: 02/02/2018 LOS: 18 days Insurance: Medicare Principal Problem: Critical illness myopathy Active Problems: CHF (congestive heart failure) (HCC) CAD (coronary artery disease) Paroxysmal 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 (HCC) longterm current use of anticoagulant COPD (chronic obstructive pulmonary disease) (HCC) HTN (hypertension) HLD (hyperlipidemia) S/P ablation of 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 Pneumonia Cytomegalovirus (CMV) viremia (HCC) Impaired mobility and activities of daily living Loculated pleural effusion Acute on chronic respiratory failure with hypoxia and hypercapnia (HCC) Pulmonary aspergillosis invasive type (HCC) COPD, severe (HCC) Secondary spontaneous pneumothorax Legionella pneumonia (HCC) Atrial fibrillation with RVR (HCC) Empyema of right pleural space (HCC) Moderate malnutrition (HCC) Assessment/Plan: Mr. Darrius Salas is a 62 yo M with PMH of COPD on 2-3L QHS, tobacco use, Afib on Xarelto, CAD s/p PCI (2012) who was originally admitted to rehab with multi- organism PNA after multiple intubations and PEA arrest. He was re-admitted to [facility] for loculated hydropneumothorax and is now s/p chest tube placement and decortication. Patient presents to IRF with critical illness myopathy, generalized weakness, decreased endurance, and impaired mobility and ADLs warranting PT/OT therapies. Rehabilitation Plan Rehabilitation: Patient will continue with comprehensive therapies including physical therapy, occupational therapy, speech & language pathology, specialized rehab nursing, neuropsychology and physiatry oversight. Goals: Mod I to SBA Tentative discharge date: 02/21/18 Recommended therapy after discharge: Home health with PT/OT Recommended equipment: Tub transfer bench; 4-wheel walker; elevated toilet seat/ commode over the toilet Daily Functional Update: Transfers Device Sit to Stand Transfer: Assistive Device: 4-Wheeled Walker;None (02/18/2018 3:00 PM) No Data Recorded Gait Device Assist Required Distance Gait: Assistive Device: 4-Wheeled Walker (02/18/2018 3:00 PM) No Data Recorded Gait Distance: 150 feet (75 feet x2) (02/18/2018 3:00 PM) Toileting Assist Required Equipment Toilet Transfer Toileting Assist: Stand By Assist (02/18/2018 9:30 AM) Toileting Equipment: Commode - 3 in 1 padded (02/18/2018 9:30 AM) No Data Recorded Dressing Lower Body LE Dressing Assist: Stand By Assist (02/18/2018 9:30 AM) Critical Illness Myopathy Acute on chronic hypoxic respiratory failure Legionella pneumonia (PNA), invasive necrotizing aspergillosis PNA, HSV & CMV PNA, Proteus Mirabilis PNA Decreased pulmonary reserve Generalized weakness Decreased endurance Impaired mobility and ADLs - s/p x3 intubation/extubations - s/p PEA arrest (extubated 11/24) - s/p treatment with vancomyin, linezolid, zosyn, valacyclovir, micafungin , valcyte - blood culture NGTD, UA neg, sputum culture normal alvaro >ID following, continue antibiotics Cresemba 372mg QD. Zosyn switched to PO augmentin, likely with only 2 weeks more after discharge >Continue aggressive pulmonary hygiene with Aerobika and IS >Consult PT/OT Right sided pleural effusion and empyema Loculated hydropneumothorax s/p chest tube x 2 01/22, positive for empyema S/p decortication of pleural effusion 01/[address] Xiao COPD, emphysema Acute on chronic hypoxic respiratory failure - on 2-3L QHS at baseline, currently requiring 1L at rest and 2-3L with exercise - chest tube changed by CTS CUSTOMER SALES SERVICE MANAGER on 02/16 - empty mini atrium PRN, no showering while chest tubes in place, call CTS CUSTOMER SALES SERVICE MANAGER/ PA if issues > Continue albuterol nebs BID and PRN >Continue SENIOR NET SOFTWARE ENGINEER Symbicort BID, flonase BID, and anoro ellipta 1 puff QD > Continue guaifenesin LA 600mg BID >Patient will need exercise ox and overnight ox prior to discharge if still requiring o2 (Wednesday night, Wednesday during the day (ordered) > f/u Dr. 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 > Continue metoprolol 12.5mg BID > Continue decreased lasix dose today, 20mg BID, titrate up PRN >On digoxin 125mcg daily (level therapeutic), 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 Vasotect, Lipitor >Continue daily weights, CTM Adjustment disorder with depressed and anxious mood: neuropsych following Nausea/vomiting: zofran scheduled with meals, EKG ok, compazine PRN --> nausea improved with switching off zosyn Risk of opioid induced constipation: continue docusate and senna prn Macrocytic anemia, stable, CTM with CBC, transfusion 1U pRBCs 02/09 GERD: PPI Hypomagnesia: continue magnesium replacement Hypokalemia: continue K replacement Malnutrition: continue boost supplements, vit c, vit D, thiamine Pain Management: tylenol 1G TID prn, lidoderm patches Pressure injury left ear stage 3, present on admission: Foam offloading device, assess fit of tubing and adjust accordingly to prevent tension on ears. Apply Bacitracin ointment to wound BID. Pressure injury coccyx/buttocks, stage 1, present on admission: - Apply Criticaid barrier cream BID and PRN to protect skin from moisture related to urine/stool. Bowel: continent of bowel Bladder: continent of bladder, BVIs x3 neg Nutrition: Current diet: regular with boost plus TID Mental Health: consult neuropsychology to provide support / counseling DVT Prophylaxis: Lovenox Wednesday: no changes Wednesday: no changes Subjective Patient seen lying in bed. Denies SOB. Reports loose stools and nausea. He was able to eat breakfast this morning. RT is here for exercise pulse oximetry. No acute overnight events. Objective Vital Signs: Last Filed Vital Signs: 24 Hour Range BP: 116/82 (02/20 435) Temp: 36.6 C (97.8 F) (02/20 435) Pulse: 95 (02/20 435) Respirations: 15 PER MINUTE (02/20 435) SpO2: 97 % (02/20 435) O2 Delivery: None (Room Air) (02/20 435) BP: (112-127)/(72-82) Temp: [36.3 C (97.3 F)-36.9 C (98.5 F)] Pulse: [90-100] Respirations: [14 PER MINUTE-18 PER MINUTE] SpO2: [92 %-100 %] O2 Delivery: None (Room Air) Vitals: 02/18/18 0640 02/19/18 0600 02/20/18 0455 Weight: 67.7 kg (149 lb 3.2 oz) 69.4 kg (153 lb 1.6 oz) 68.5 kg (151 lb 0.2 oz) Intake/Output Summary: (Last 24 hours) Intake/Output Summary (Last 24 hours) at 02/20/2018 0752 Last data filed at 02/20/2018 0700 Gross per 24 hour Intake 690 ml Output 1475 ml Net -785 ml Stool Occurrence: 1 Oral Diet Order: Regular Last Bowel Movement Date: 02/19/18 Lab: No results found for this visit on 02/02/18 (from the past 24 hour(s)). Physical Exam VS: BP 116/82 (BP Source: Arm, Left Upper) | Pulse 95 | Temp 36.6 C (97.8 F) | Ht 182.9 cm (72") | Wt 68.5 kg (151 lb 0.2 oz) | SpO2 97% | BMI 20.48 kg/m gen - awake, alert, nad heent - nc/at cv - extremities well perfused pulm - no increased work of breathing. abd - nt, nd, ext - no peripheral edema. skin - warm, dry neuro - oriented, speech fluent and clear, appropriate responses to questions Therapy Notes & Labs Reviewed. PRESS OPERATOR Associated attestation - Sonido Tong MD - 02/20/2018 1:28 PM AIR PRESS OPERATOR ATTESTATION I personally observed the resident performing the E/M, discussed case with resident, and concur with resident documentation of history, physical assessment and treatment plan unless otherwise noted. Staff name: Sonido Tong MD Date: 02/20/2018 * Dianne Merlos RN - 02/20/2018 7:15 AM AIR PRESS OPERATOR Heart Failure Nursing Progress Note Admission Date: 02/02/2018 LOS: 18 days Admission Weight: 75.7 kg (166 lb 12.8 oz) Most recent weights (inpatient): Vitals: 02/18/18 0640 02/19/18 0600 02/20/18 0455 Weight: 67.7 kg (149 lb 3.2 oz) 69.4 kg (153 lb 1.6 oz) 68.5 kg (151 lb 0.2 oz) Weight change from previous day:- 0.9 Kg Fluid restriction ordered: No Intake/Output Summary: (Last 24 hours) Intake/Output Summary (Last 24 hours) at 02/20/2018 0716 Last data filed at 02/20/2018 0436 Gross per 24 hour Intake 690 ml Output 1395 ml Net -705 ml Is patient incontinent: No Anticipated discharge date: 02/21/18 Discharge goals: Regain Strenght Daily Assessment of Patient Stated Goals: Short Term Goal Identified by patient:ADL's independently. PRESS OPERATOR * Isidro Villafana RT - 02/20/2018 5:53 AM AIR PRESS OPERATOR Patient Name: Darrius Salas Date of : 1955 Overnight Oximetry Note Date test was started: 02/19/18 Time test was started: 2134 Date test was completed: 02/20/18 Time test was completed: 05:22 Comments: No oxygen was used and patient remained on room air for the duration of the test PRESS OPERATOR * Isidro Villafana RT - 02/19/2018 9:37 PM AIR PRESS OPERATOR PULSE OXIMETRY OVERNIGHT Pt started@ 2134 on RA SpO2 93% HR 100 PRESS OPERATOR * Katheryn Keene RN - 02/19/2018 6:00 PM AIR PRESS OPERATOR Heart Failure Nursing Progress Note Admission Date: 02/02/2018 LOS: 18 days Admission Weight: 75.7 kg (166 lb 12.8 oz) Most recent weights (inpatient): Vitals: 02/18/18 0640 02/19/18 0600 02/20/18 0455 Weight: 67.7 kg (149 lb 3.2 oz) 69.4 kg (153 lb 1.6 oz) 68.5 kg (151 lb 0.2 oz) Weight change from previous day:=1.7 kg Fluid restriction ordered:No Intake/Output Summary: (Last 24 hours) Intake/Output Summary (Last 24 hours) at 02/20/2018 1104 Last data filed at 02/20/2018 0959 Gross per 24 hour Intake 440 ml Output 1335 ml Net -895 ml Is patient incontinent No Anticipated discharge date: 02/21/2018 Discharge goals: strength Daily Assessment of Patient Stated Goals: Short Term Goal Identified by patient (Short Term=during hospitalization): strength PRESS OPERATOR * Fco Messina MD - 02/19/2018 12:11 PM AIR PRESS OPERATOR Infectious disease Progress note Admission Date: 02/02/2018 LOS: 17 days Reason for Consult: Invasive aspergillosis Consult type: Opinion with orders Active Hospital Problems Diagnosis Critical illness myopathy Moderate malnutrition (HCC) Continued PO intake inadequate not meeting needs, resulting in new wt loss Atrial fibrillation with RVR (HCC) Empyema of right pleural space (HCC) Acute on chronic respiratory failure with hypoxia and hypercapnia (HCC) Pulmonary aspergillosis invasive type (HCC) COPD, severe (HCC) Secondary spontaneous pneumothorax Legionella pneumonia (HCC) Loculated pleural effusion Cytomegalovirus (CMV) viremia (HCC) Impaired mobility and activities of daily living Pneumonia S/P ablation of 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 05/04/13 A fib ablation by Dr. Godfrey. CHF (congestive heart failure) (HCC) CAD (coronary artery disease) 03/18/2012 - Cardiac Catheterization: PTCA and PCI using 3.0 x 20mm Promus to the midRCA. ([facility]). Paroxysmal 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 (HCC) 03/17/2012 - ECHO: LVEF ~ 25%. LA [...] MR and TR. PAP ~ 40 mmHg. 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 Persistent extensive right lung consolidation compatible with pneumonia.Slight improvement in mild patchy and nodular left lung opacities compatible with resolving pneumonia and scarring. Left pleural effusion has resolved. A follow-up chest CT in 6 months is recommended to assess for stability or improvement of nodular components. Marked emphysema - S/P chest tube x 2 on 01/22/2018, fluid analysis consistent wit empyema - CT chest 01/25/2018: Significant overall improvement in the moderate loculated hydropneumothorax after placement of 2 pleural drains. Persistent extensive right lung consolidation compatible with pneumonia and/or atelectasis. - S/P thoracoscopy and I&D 01/28/2018, cultures negative, mucopurulent fluid drained Legionella pneumonia, also possible aspiration - At OSH started on Zosyn 10/31, escalated to vancomycin, anidulafungin ( unsure what dates added); zosyn switched to meropenem , vanc stopped at some point - negative blood cultures; bronch with MARIALUISA BAL on 11/08 with negative bacterial culture, unsure of fungal culture result -positive legionella urine antigen at CT 11/14: Multifocal right upper lobe consolidation with several air-fluid levels within bullae suggestive of multifocal necrotizing pneumonia. Air-fluid levels may represent infected or hemorrhagic bullae which often requires prolonged antibiotic therapy, similar to treating a pulmonary abscess. - Fungitell 38, Galactomannan 0.052. - [facility] (11/04)- peripheral blood cultures -no growth, Sputum/ endotracheal- mixed bacterial alvaro, few yeast (11/08) BAL/left upper lobe >1, 000 CFU/ML- C. 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 Not detected on first BAL, virus detected on 12/21/17 BAL. Treated. Significant debility P. mirabilispneumonia 01/16/18 DEONTE 01/26 REC: He is tolerating the oral Augmentin well. Recommend continuing the Augmentin for another 2 weeks from this coming Wednesday Continue Cresemba until february then stop Patient will follow with CT surgery, no need for a scheduled ID follow-up. I discussed my recommendations with the rehab team Abx Zosyn 02/09 to 02/16 Augmentin 02/16 History of Present Illness: Darrius Salas is a 62 y.o. male Mostly off O2 some time he is on 1 L Cough is minimal, this is better Loose stools improved but this morning he did have one loose stool Nausea and upset stomach is better after switching the Zosyn to Augmentin No rash still with chest tube No rash no abd pain no dysuria labs wbc normal Creat stable Abx Augmentin Scheduled Meds: albuterol (PROAIR HFA, VENTOLIN HFA, or PROVENTIL HFA) inhaler 2 puff 2 puff Inhalation BID & PRN amoxicillin/K clavulanate (AUGMENTIN) tablet 875 mg 875 mg Oral BID w/meals bacitracin topical ointment Topical BID digoxin (LANOXIN) tablet 125 mcg 125 mcg Oral QDAY enoxaparin (LOVENOX) syringe 40 mg 40 mg Subcutaneous QDAY fluticasone (FLONASE) nasal spray 2 spray 2 spray Each Nostril QDAY furosemide (LASIX) tablet 20 mg 20 mg Oral BID(9-17) guaiFENesin LA (MUCINEX) tablet 600 mg 600 mg Oral BID isavuconazonium sulfate (CRESEMBA) capsule 372 mg 372 mg Oral QDAY(21) lidocaine (LIDODERM) 5 % topical patch 1-2 patch 1-2 patch Topical QDAY magnesium chloride (MAG DELAY) tablet 535 mg 535 mg Oral BID melatonin tablet 3 mg 3 mg Oral QHS metoprolol tartrate (LOPRESSOR) tablet 12.5 mg 12.5 mg Oral BID ondansetron (ZOFRAN) tablet 4 mg 4 mg Oral TID w/ meals pantoprazole DR (PROTONIX) tablet 40 mg 40 mg Oral BID(-) sodium chloride PF 0.9% flush 30 mL 30 mL Intravenous FLUSH TID umeclidinium-vilanterol (ANORO ELLIPTA) 62.5-25 mcg/actuation inhaler 1 puff 1 puff Inhalation QDAY vitamin A & D topical ointment Topical QDAY vitamins, multi w/minerals tablet 1 tablet 1 tablet Oral QDAY Continuous Infusions: PRN and Respiratory Meds:acetaminophen TID PRN, alteplase BID PRN, aluminum/ magnesium hydroxide Q4H PRN, bisacodyl QDAY PRN, docusate BID PRN, milk of magnesia (CONC) Q4H PRN, prochlorperazine Q6H PRN, senna QHS PRN Review of Systems: +SOB, nausea, cough. No f/c/ns, FERGUSON, abd pain, myalgias, arthralgias. +weakness. Rest of 14-point ROS negative. Vital Signs: Last Filed in 24 hours Vital Signs: 24 hour Range BP: 126/78 (02/20 828) Temp: 36.4 C (97.6 F) (02/19 799) Pulse: 9 (02/20 828) Respirations: 18 PER MINUTE (02/19 799) SpO2: 93 % (02/19 799) O2 Delivery: Nasal Cannula (02/19 799) BP: (114-129)/(66-80) Temp: [36.4 C (97.5 F)-37.1 C (98.7 F)] Pulse: [9-98] Respirations: [18 PER MINUTE] SpO2: [93 %-100 %] O2 Delivery: Nasal Cannula Physical Exam: General: Alert, cooperative, no distress, 1 L of oxygen Head: Normocephalic, without obvious abnormality, atraumatic Throat: Lips, mucosa and tongue normal. No thrush Lungs: Poor air exchange bilaterally , improving Heart: Regular rate and rhythm Abdomen: Soft, nontender. Bowel sounds normal. Extremities: Extremities normal, atraumatic, no cyanosis or edema Lab/Radiology/Other Diagnostic Tests: Full labs and radiology viewed and reports reviewed. Reviewed Microbiology data from past and present. PRESS OPERATOR * Claudia De La Paz, RT - 02/19/2018 10:01 AM AIR PRESS OPERATOR RT Adult Assessment Note NAME:Darrius Salas :1955 AGE: 62 y.o. ADMISSION DATE: 02/02/2018 DAYS ADMITTED: LOS: 17 days RT Treatment Plan: Protocol Plan: Medications Albuterol: MDI BID;MDI PRN Protocol Plan: Procedures Vibrating PEP Therapy: Discontinued(performs on own) NTS: Discontinued Oxygen/Humidity: O2 to keep SpO2 > 92% Monitoring: Pulse oximetry BID & PRN Additional Comments: Impressions of the patient: Intervention(s)/outcome(s): Patient education that was completed: Recommendations to the care team: Vital Signs: Pulse: 94 RR: SpO2: O2 Device: $$ O2 Device: Cannula Liter Flow: O2 Liter Flow: 1 lpm O2%: Breath Sounds: Respiratory Effort: PRESS OPERATOR * Merari Fowler MD - 02/19/2018 8:31 AM AIR PRESS OPERATOR Physical Medicine & Rehabilitation Progress Note Today's Date: 02/19/2018 Admission Date: 02/02/2018 LOS: 17 days Insurance: Medicare Principal Problem: Critical illness myopathy Active Problems: CHF (congestive heart failure) (HCC) CAD (coronary artery disease) Paroxysmal 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 (HCC) 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 Darrius Salas is a 62 yo M with PMH of COPD on 2-3L QHS, tobacco use, Afib on Xarelto, CAD s/p PCI (2012) who was originally admitted to rehab with multi- organism PNA after multiple intubations and PEA arrest. He was re-admitted to [facility] for loculated hydropneumothorax and is now s/p chest tube placement and decortication. Patient presents to IRF with critical illness myopathy, generalized weakness, decreased endurance, and impaired mobility and ADLs warranting PT/OT therapies. Rehabilitation Plan Rehabilitation: Patient will continue with comprehensive therapies including physical therapy, occupational therapy, speech & language pathology, specialized rehab nursing, neuropsychology and physiatry oversight. Goals: Mod I to SBA Tentative discharge date: 02/21/18 Recommended therapy after discharge: Home health with PT/OT Recommended equipment: Tub transfer bench; 4-wheel walker; elevated toilet seat/ commode over the toilet Daily Functional Update: Transfers Device Sit to Stand Transfer: Assistive Device: 4-Wheeled Walker;None (02/18/2018 3:00 PM) No Data Recorded Gait Device Assist Required Distance Gait: Assistive Device: 4-Wheeled Walker (02/18/2018 3:00 PM) No Data Recorded Gait Distance: 150 feet (75 feet x2) (02/18/2018 3:00 PM) Toileting Assist Required Equipment Toilet Transfer Toileting Assist: Stand By Assist (02/18/2018 9:30 AM) Toileting Equipment: Commode - 3 in 1 padded (02/18/2018 9:30 AM) No Data Recorded Dressing Lower Body LE Dressing Assist: Stand By Assist (02/18/2018 9:30 AM) Critical Illness Myopathy Acute on chronic hypoxic respiratory failure Legionella pneumonia (PNA), invasive necrotizing aspergillosis PNA, HSV & CMV PNA, Proteus Mirabilis PNA Decreased pulmonary reserve Generalized weakness Decreased endurance Impaired mobility and ADLs - s/p x3 intubation/extubations - s/p PEA arrest (extubated 11/24) - s/p treatment with vancomyin, linezolid, zosyn, valacyclovir, micafungin , valcyte - blood culture NGTD, UA neg, sputum culture normal alvaro >ID following, continue antibiotics Cresemba 372mg QD. Zosyn switched to PO augmentin, likely with only 2 weeks more after discharge >Continue aggressive pulmonary hygiene with Aerobika and IS >Consult PT/OT Right sided pleural effusion and empyema Loculated hydropneumothorax s/p chest tube x 2 01/22, positive for empyema S/p decortication of pleural effusion 01/[address] Xiao COPD, emphysema Acute on chronic hypoxic respiratory failure - on 2-3L QHS at baseline, currently requiring 1L at rest and 2-3L with exercise - chest tube changed by CTS CUSTOMER SALES SERVICE MANAGER on 02/16 - empty mini atrium PRN, no showering while chest tubes in place, call CTS CUSTOMER SALES SERVICE MANAGER/ PA if issues > Continue albuterol nebs BID and PRN >Continue SENIOR NET SOFTWARE ENGINEER Symbicort BID, flonase BID, and anoro ellipta 1 puff QD > Continue guaifenesin LA 600mg BID >Patient will need exercise ox and overnight ox prior to discharge if still requiring o2 (Wednesday night, Wednesday during the day (ordered) > f/u Dr. 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 > Continue metoprolol 12.5mg BID > Continue decreased lasix dose today, 20mg BID, titrate up PRN >On digoxin 125mcg daily (level therapeutic), 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 Vasotect, Lipitor >Continue daily weights, CTM Adjustment disorder with depressed and anxious mood: neuropsych following Nausea/vomiting: zofran scheduled with meals, EKG ok, compazine PRN --> nausea improved with switching off zosyn Risk of opioid induced constipation: continue docusate and senna prn Macrocytic anemia, stable, CTM with CBC, transfusion 1U pRBCs 02/09 GERD: PPI Hypomagnesia: continue magnesium replacement Hypokalemia: continue K replacement Malnutrition: continue boost supplements, vit c, vit D, thiamine Pain Management: tylenol 1G TID prn, lidoderm patches Pressure injury left ear stage 3, present on admission: Foam offloading device, assess fit of tubing and adjust accordingly to prevent tension on ears. Apply Bacitracin ointment to wound BID. Pressure injury coccyx/buttocks, stage 1, present on admission: - Apply Criticaid barrier cream BID and PRN to protect skin from moisture related to urine/stool. Bowel: continent of bowel Bladder: continent of bladder, BVIs x3 neg Nutrition: Current diet: regular with boost plus TID Mental Health: consult neuropsychology to provide support / counseling DVT Prophylaxis: Lovenox Wednesday: no changes Subjective Patient seen lying in bed. Denies nausea, SOB, or constipation. Had one loose stool this morning. No peripheral edema No acute overnight events. Plans to rest today since he doesn't have therapy. Objective Vital Signs: Last Filed Vital Signs: 24 Hour Range BP: 126/78 (02/20 828) Temp: 36.4 C (97.6 F) (02/19 0800) Pulse: 9 (02/20 828) Respirations: 18 PER MINUTE (02/19 799) SpO2: 93 % (02/19 799) O2 Delivery: Nasal Cannula (02/19 799) BP: (104-129)/(66-80) Temp: [36.2 C (97.2 F)-37.1 C (98.7 F)] Pulse: [9-98] Respirations: [18 PER MINUTE-20 PER MINUTE] SpO2: [93 %-100 %] O2 Delivery: Nasal Cannula Vitals: 02/17/18 0558 02/18/18 0640 02/19/18 0600 Weight: 68.5 kg (151 lb 1.6 oz) 67.7 kg (149 lb 3.2 oz) 69.4 kg (153 lb 1.6 oz) Intake/Output Summary: (Last 24 hours) Intake/Output Summary (Last 24 hours) at 02/19/2018 0831 Last data filed at 02/19/2018 0800 Gross per 24 hour Intake 490 ml Output 1260 ml Net -770 ml Stool Occurrence: 1 Oral Diet Order: Regular Last Bowel Movement Date: 02/19/18 Lab: No results found for this visit on 02/02/18 (from the past 24 hour(s)). Physical Exam VS: BP 126/78 | Pulse (!) 9 | Temp 36.4 C (97.6 F) | Ht 182.9 cm (72") | Wt 69.4 kg (153 lb 1.6 oz) | SpO2 93% | BMI 20.76 kg/m gen - awake, alert, nad heent - nc/at cv - extremities well perfused pulm - no increased work of breathing. abd - nt, nd, ext - no peripheral edema. skin - warm, dry neuro - oriented, speech fluent and clear, appropriate responses to questions Therapy Notes & Labs Reviewed. PRESS OPERATOR Associated attestation - Sonido Tong MD - 02/19/2018 1:30 PM AIR PRESS OPERATOR ATTESTATION I personally observed the resident performing the E/M, discussed case with resident, and concur with resident documentation of history, physical assessment and treatment plan unless otherwise noted. Staff name: Sonido Tong MD Date: 02/19/2018 * Lamar Rodríguez - 02/19/2018 6:21 AM AIR PRESS OPERATOR Heart Failure Nursing Progress Note Admission Date: 02/02/2018 LOS: 17 days Admission Weight: 75.7 kg (166 lb 12.8 oz) Most recent weights (inpatient): Vitals: 02/17/18 0558 02/18/18 0640 02/19/18 0600 Weight: 68.5 kg (151 lb 1.6 oz) 67.7 kg (149 lb 3.2 oz) 69.4 kg (153 lb 1.6 oz) Weight change from previous day: +1.7kg Fluid restriction ordered: no Intake/Output Summary: (Last 24 hours) Intake/Output Summary (Last 24 hours) at 02/19/2018 0621 Last data filed at 02/19/2018 0430 Gross per 24 hour Intake 240 ml Output 1250 ml Net -1010 ml Is patient incontinent No Anticipated discharge date: 02-21-18 Discharge goals: ambulate independently Daily Assessment of Patient Stated Goals: Short Term Goal Identified by patient (Short Term=during hospitalization): Get stronger PRESS OPERATOR * Patrica Zapien - 02/18/2018 2:21 PM AIR PRESS OPERATOR CLINICAL NUTRITION Clinical Nutrition Education Summary NAME:Darrius Salas :1955 AGE: 62 y.o. ADMISSION DATE: 02/02/2018 DAYS ADMITTED: LOS: 16 days Nutrition Assessment of Patient: BMI Categories Adult: Acceptable: 18.5-24.9 Unintentional Weight Loss: > 5% in 1 month (severe)(6%) Malnutrition Assessment: Malnutrition present Current Oral Intake: Marginally Adequate, Improving Estimated Calorie Needs: 3816-9838(25-30kcal/kg of 74kg ) Estimated Protein Needs: 89-104(1.2-1.4g/kg of 74kg) Oral Diet Order: Regular Oral Supplement: Boost Plus, TID ICD-10 code E44: Acute illness/Moderate non-severe malnutrition Energy Intake: < 75% of est. energy requirement for > 7days, Weight loss: 5% x 1 month, Mild loss of body fat, Mild loss of muscle mass Loss of Subcutaneous Fat: Yes Mild Triceps Muscle Wasting: Yes Mild(to moderate) Deltoid, Interosseous, Christian, Calf, Quadriceps Edema: Yes Mild(1+) Lower Extremeties(1+) Malnutrition Interventions: Continued encouragement of PO intake, adequate protein Comments: Pt re-admitted to rehab 02/02 following acute admit for loculated hydropneumothorax s/p chest tube and decortication 01/28. PMH of COPD, HTN, HLD , CAF, CHF and afib. Met with pt today to drop off handouts on pre- and pro- biotics per discussion on 02/17. Pt with halfway use of abx and prolonged poor appetite with nausea, maintaining marginal nutrition status with use of protein drinks/shakes. Malnutrition was diagnosed due to wt loss and muscle wasting noted. Encouraged pt to continue kcal/protein efforts with no diet restrictions at this time, to allow for return of adequate PO intake. Encouraged intake of yogurt several days/week if not daily. Pt reported never really caring for yogurt. Offered recommendation to add whole grain cereal and fresh fruit to make a parfait. Pt was receptive to idea and already ordered yogurt and Raisin Bran today. Provided typed handout on foods with prebiotics and probiotics; resources placed in dc orders. Pt was receptive. RD contact info provided. Pt not appropriate for further heart healthy/CHF diet education until PO intake and malnutrition are resolved. Recommendation: Continue current diet order with protein drinks PRN. Pt would benefit from outpatient RD diet education when PO intake resumes to normal. Intervention / Plan: Provided handouts on pre/pro-biotics f/u handout on probiotics Patrica Zapien RD, LD *[id number] PRESS OPERATOR * Beatriz Ortiz MD - 02/18/2018 8:03 AM AIR PRESS OPERATOR ATTESTATION I personally performed the gaytan portions of the E/M visit, discussed case with resident and concur with resident documentation of history, physical exam, assessment, and treatment plan unless otherwise noted. Doing well, pain controlled, no further blood BMs, last BM yesterday. Labs and VS reviewed and stable. Hgb stable/improved. Exam stable, breathing well on 1L NC O2. Chest tubes with clear drainage. D/w patient rehab progress to date, plan for home 02/21 if remains stable. O2 studies this weeknd. Needs CTS f/u. F/u ID final abx plan. D/c PICC prior to discharge. Patient remains medically stable to participate in IRF program. Staff name: Beatriz Ortiz MD Date: 02/18/2018 Physical Medicine & Rehabilitation Progress Note Today's Date: 02/18/2018 Admission Date: 02/02/2018 LOS: 16 days Insurance: Medicare Principal Problem: Critical illness myopathy Active Problems: CHF (congestive heart failure) (HCC) CAD (coronary artery disease) Paroxysmal 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 (HCC) longterm current use of anticoagulant COPD (chronic obstructive pulmonary disease) (HCC) HTN (hypertension) HLD (hyperlipidemia) S/P ablation of 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 Pneumonia Cytomegalovirus (CMV) viremia (HCC) Impaired mobility and activities of daily living Loculated pleural effusion Acute on chronic respiratory failure with hypoxia and hypercapnia (HCC) Pulmonary aspergillosis invasive type (HCC) COPD, severe (HCC) Secondary spontaneous pneumothorax Legionella pneumonia (HCC) Atrial fibrillation with RVR (HCC) Empyema of right pleural space (HCC) Moderate malnutrition (HCC) Assessment/Plan: Mr. Darrius Salas is a 62 yo M with PMH of COPD on 2-3L QHS, tobacco use, Afib on Xarelto, CAD s/p PCI (2012) who was originally admitted to rehab with multi- organism PNA after multiple intubations and PEA arrest. He was re-admitted to [facility] for loculated hydropneumothorax and is now s/p chest tube placement and decortication. Patient presents to IRF with critical illness myopathy, generalized weakness, decreased endurance, and impaired mobility and ADLs warranting PT/OT therapies. Rehabilitation Plan Rehabilitation: Patient will continue with comprehensive therapies including physical therapy, occupational therapy, speech & language pathology, specialized rehab nursing, neuropsychology and physiatry oversight. Goals: Mod I to SBA Tentative discharge date: 02/21/18 Recommended therapy after discharge: Home health with PT/OT Recommended equipment: Tub transfer bench; 4-wheel walker; elevated toilet seat/ commode over the toilet Daily Functional Update: Transfers Device Sit to Stand Transfer: Assistive Device: 4-Wheeled Walker (02/17/2018 3:00 PM) No Data Recorded Gait Device Assist Required Distance Gait: Assistive Device: 4-Wheeled Walker (02/17/2018 3:00 PM) No Data Recorded Gait Distance: 50 feet (02/17/2018 3:00 PM) Toileting Assist Required Equipment Toilet Transfer Toileting Assist: Stand By Assist (02/17/2018 9:00 AM) Toileting Equipment: Commode - 3 in 1 padded (02/17/2018 9:00 AM) No Data Recorded Dressing Lower Body LE Dressing Assist: Minimal Assist (02/17/2018 9:00 AM) Critical Illness Myopathy Acute on chronic hypoxic respiratory failure Legionella pneumonia (PNA), invasive necrotizing aspergillosis PNA, HSV & CMV PNA, Proteus Mirabilis PNA Decreased pulmonary reserve Generalized weakness Decreased endurance Impaired mobility and ADLs - s/p x3 intubation/extubations - s/p PEA arrest (extubated 11/24) - s/p treatment with vancomyin, linezolid, zosyn, valacyclovir, micafungin , valcyte - blood culture NGTD, UA neg, sputum culture normal avlaro >ID following, continue antibiotics Cresemba 372mg QD. Zosyn switched to PO augmentin, likely with only 2 weeks more after discharge >Continue aggressive pulmonary hygiene with Aerobika and IS >Consult PT/OT Right sided pleural effusion and empyema Loculated hydropneumothorax s/p chest tube x 2 01/22, positive for empyema S/p decortication of pleural effusion 01/[address] Xiao COPD, emphysema Acute on chronic hypoxic respiratory failure - on 2-3L QHS at baseline, currently requiring 1L at rest and 2-3L with exercise - chest tube changed by CTS CUSTOMER SALES SERVICE MANAGER on 02/16 - empty mini atrium PRN, no showering while chest tubes in place, call CTS CUSTOMER SALES SERVICE MANAGER/ PA if issues > Continue albuterol nebs BID and PRN >Continue SENIOR NET SOFTWARE ENGINEER Symbicort BID, flonase BID, and anoro ellipta 1 puff QD > Continue guaifenesin LA 600mg BID >Patient will need exercise ox and overnight ox prior to discharge if still requiring o2 (Wednesday night, Wednesday during the day (ordered) > f/u Dr. 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 > Continue metoprolol 12.5mg BID > Continue decreased lasix dose today, 20mg BID, titrate up PRN >On digoxin 125mcg daily (level therapeutic), 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 Vasotect, Lipitor >Continue daily weights, CTM Adjustment disorder with depressed and anxious mood: neuropsych following Nausea/vomiting: zofran scheduled with meals, EKG ok, compazine PRN --> nausea improved with switching off zosyn Risk of opioid induced constipation: continue docusate and senna prn Macrocytic anemia, stable, CTM with CBC, transfusion 1U pRBCs 02/09 GERD: PPI Hypomagnesia: continue magnesium replacement Hypokalemia: continue K replacement Malnutrition: continue boost supplements, vit c, vit D, thiamine Pain Management: tylenol 1G TID prn, lidoderm patches Pressure injury left ear stage 3, present on admission: Foam offloading device, assess fit of tubing and adjust accordingly to prevent tension on ears. Apply Bacitracin ointment to wound BID. Pressure injury coccyx/buttocks, stage 1, present on admission: - Apply Criticaid barrier cream BID and PRN to protect skin from moisture related to urine/stool. Bowel: continent of bowel Bladder: continent of bladder, BVIs x3 neg Nutrition: Current diet: regular with boost plus TID Mental Health: consult neuropsychology to provide support / counseling DVT Prophylaxis: Uyen Vegas M.D. Physical Medicine and Rehabilitation, PGY-3 Subjective NEON. Pt resting comfortably in bed. He feels he is continuing to improve and is hopeful he will be ready to leave next week. His pain is improved and he is ok with switching tylenol to PRN. No other acute complaints. Objective Vital Signs: Last Filed Vital Signs: 24 Hour Range BP: 133/84 (02/18 743) Temp: 36.4 C (97.6 F) (02/18 743) Pulse: 88 (02/18 743) Respirations: 19 PER MINUTE (02/18 743) SpO2: 98 % (02/18 743) O2 Delivery: Nasal Cannula (02/18 743) BP: (87-133)/(58-84) Temp: [36.3 C (97.3 F)-36.6 C (97.9 F)] Pulse: [85-120] Respirations: [18 PER MINUTE-21 PER MINUTE] SpO2: [95 %-100 %] O2 Delivery: Nasal Cannula Vitals: 02/16/18 0600 02/17/18 0558 02/18/18 0640 Weight: 68.3 kg (150 lb 9.6 oz) 68.5 kg (151 lb 1.6 oz) 67.7 kg (149 lb 3.2 oz) Intake/Output Summary: (Last 24 hours) Intake/Output Summary (Last 24 hours) at 02/18/2018 0803 Last data filed at 02/18/2018 0700 Gross per 24 hour Intake 910 ml Output 500 ml Net 410 ml Stool Occurrence: 1 Oral Diet Order: Regular Last Bowel Movement Date: 02/17/18 Lab: Results for orders placed or performed during the hospital encounter of (from the past 24 hour(s)) CBC CELLULAR THERAPEUTICS Collection Time: 02/18/18 7:27 AM # # Low-High White Blood Cells 7.2 4.5 - 11.0 K/UL RBC 2.61 (L) 4.4 - 5.5 M/UL Hemoglobin 8.4 (L) 13.5 - 16.5 GM/DL Hematocrit 25.6 (L) 40 - 50 % MCV 97.9 80 - 100 FL MCH 32.2 26 - 34 PG MCHC 32.9 32.0 - 36.0 G/DL RDW 20.2 (H) 11 - 15 % Platelet Count 520 (H) 150 - 400 K/UL MPV 6.8 (L) 7 - 11 FL BASIC METABOLIC PANEL CELLULAR THERAPEUTICS Collection Time: 02/18/18 7:27 AM # # Low-High Sodium 133 (L) 137 - 147 MMOL/L Potassium 3.7 3.5 - 5.1 MMOL/L Chloride 104 98 - 110 MMOL/L CO2 25 21 - 30 MMOL/L Anion Gap 4 3 - 12 Glucose 112 (H) 70 - 100 MG/DL Blood Urea Nitrogen 8 7 - 25 MG/DL Creatinine 0.79 0.4 - 1.24 MG/DL Calcium 8.2 (L) 8.5 - 10.6 MG/DL eGFR Non >60 >60 mL/min eGFR >60 >60 mL/min Physical Exam VS: BP 133/84 (BP Source: Arm, Left Upper) | Pulse 88 | Temp 36.4 C (97.6 F) | Ht 182.9 cm (72") | Wt 67.7 kg (149 lb 3.2 oz) | SpO2 98% | BMI 20.24 kg/m gen - awake, alert, nad heent - nc/at cv - rrr, no murmur pulm - no w/r, on 1L NC abd - nt, nd, +BS ext - no c/e skin - warm, dry neuro - oriented, speech fluent and clear, appropriate responses to questions Therapy Notes & Labs Reviewed. Michael Vegas M.D. Physical Medicine and Rehabilitation, PGY-3 PRESS OPERATOR * Jovanna Bedolla, CONSTANTIN - 02/18/2018 7:10 AM AIR PRESS OPERATOR Heart Failure Nursing Progress Note Admission Date: 02/02/2018 LOS: 16 days Admission Weight: 75.7 kg (166 lb 12.8 oz) Most recent weights (inpatient): Vitals: 02/16/18 0600 02/17/18 0558 02/18/18 0640 Weight: 68.3 kg (150 lb 9.6 oz) 68.5 kg (151 lb 1.6 oz) 67.7 kg (149 lb 3.2 oz) Weight change from previous day:loss of 1.2kg Fluid restriction ordered: 2L Intake/Output Summary: (Last 24 hours) Intake/Output Summary (Last 24 hours) at 02/18/2018 0710 Last data filed at 02/17/2018 2200 Gross per 24 hour Intake 910 ml Output 490 ml Net 420 ml Is patient incontinent No Anticipated discharge date: 02/21/18 Discharge goals: Be independent Daily Assessment of Patient Stated Goals: Short Term Goal Identified by patient (Short Term=during hospitalization): Gain strength PRESS OPERATOR * Osvaldo Lim RN - 02/17/2018 5:11 PM AIR PRESS OPERATOR Heart Failure Nursing Progress Note Admission Date: 02/02/2018 LOS: 15 days Admission Weight: 75.7 kg (166 lb 12.8 oz) Most recent weights (inpatient): Vitals: 02/15/18 0600 02/16/18 0600 02/17/18 0558 Weight: 68.9 kg (152 lb) 68.3 kg (150 lb 9.6 oz) 68.5 kg (151 lb 1.6 oz) Weight change from previous day:+0.2KG Fluid restriction ordered: 2L Intake/Output Summary: (Last 24 hours) Intake/Output Summary (Last 24 hours) at 02/17/2018 1711 Last data filed at 02/17/2018 0900 Gross per 24 hour Intake 790 ml Output 1275 ml Net -485 ml Is patient incontinent No Anticipated discharge date: 02/21 Discharge goals: Be Independent Daily Assessment of Patient Stated Goals: Short Term Goal Identified by patient (Short Term=during hospitalization): PRESS OPERATOR * Patrica Zapien - 02/17/2018 3:16 PM AIR PRESS OPERATOR CLINICAL NUTRITION Clinical Nutrition Follow-Up Summary NAME:Darrius Salas :1955 AGE: 62 y.o. ADMISSION DATE: 02/02/2018 DAYS ADMITTED: LOS: 15 days Nutrition Assessment of Patient: Malnutrition Assessment: Malnutrition present Current Oral Intake: Marginally Adequate, Improving Estimated Calorie Needs: 9269-0626(25-30kcal/kg of 74kg ) Estimated Protein Needs: 89-104(1.2-1.4g/kg of 74kg) Oral Diet Order: Regular Oral Supplement: Boost Plus, TID ICD-10 code E44: Acute illness/Moderate non-severe malnutrition Energy Intake: < 75% of est. energy requirement for > 7days, Weight loss: 5% x 1 month, Mild loss of body fat, Mild loss of muscle mass Loss of Subcutaneous Fat: Yes Mild Triceps Muscle Wasting: Yes Mild(to moderate) Deltoid, Interosseous, Christian, Calf, Quadriceps Edema: Yes Mild(1+) Lower Extremeties(1+) Malnutrition Interventions: Continued encouragement of PO intake, adequate protein Comments: Pt re-admitted to rehab 02/02 following acute admit for loculated hydropneumothorax s/p chest tube and decortication 01/28. PMH of COPD, HTN, HLD , CAF, CHF and afib. Pt has had difficulties with nausea, poor appetite, and altered taste which have impacted his oral intake. Many vit/min were removed recently to alleviate nausea. Today, pt reports improvement in symptoms. Antibiotics were changed today in an effort to help with nausea. Marginal intakes noted x last 2 meals, still inadequate overall. Pt continues to supplement Boost products, changing it up today with Boost Breeze. He is skipping lunch due to being asleep when delivered and upcoming rehab therapy. Pt would like to wait until after therapy is complete due to risk of nausea. He agreed to drink a Boost during visit. Pt is excited to go home 02/21. Abx discussed in team conference as possibly needed rodent exterminator. Pt with new development of bloody diarrhea in recent days. BM x 2 on 02/16 more formed, and again more formed today. Scheduled bowel meds on baord. zofran continues. PPI increased. Weight is stable at 151# x 12 days. Pitting 1+ edema noted is unchanged; lasix continues. Multiple stage 1 pressure injuries; on MVI. Encouraged pt to eat yogurt regularly as a good source of probiotic. Explained affect of rodent exterminator abx on gi, reviewing good sources of probiotics. Encouraged gradual increase in intake as PO intake improves, with continued use of protein shakes. Encouraged all around healthy diet as pt returns home and intakes resume as normal. Pt requested handout on items discussed today; will write up and drop off tomorrow. Pt is improving. Recommendation: Continue current diet order. Offer protein supplements per pt preference. As PO intake improves, encourage yogurt for good probiotic source. Pt would benefit from probiotic given rodent exterminator abx need. Continue MVI on discharge. Intervention / Plan: Monitor PO intake, wt, labs, skin, gi, meds, fluids f/u handout on probiotics Nutrition Diagnosis: Inadequate oral intake Etiology: nausea, altered taste Signs & Symptoms: pt report of meds affecting his intake. Goals: Patient to consume >75% of meals Time Frame: Within 72 Hours Status: Partially met;Ongoing Patrica Zapien, RD, LD *[id number] PRESS OPERATOR * Beatriz Ortiz MD - 02/17/2018 1:03 PM AIR PRESS OPERATOR ATTESTATION I personally performed the gaytan portions of the E/M visit, discussed case with resident and concur with resident documentation of history, physical exam, assessment, and treatment plan unless otherwise noted. Pt feeling better today, only 1 BM today and no blood. Labs and VS reviewed and stable. On exam, lungs stable. Chest tubes with clear drainage today. RUE PICC in place. 1L O2 documented consistently, will repeat O2 studies prior to discharge. If does well on PO abx can remove PICC prior to discharge. F/u Hgb tomorrow, monitor BMs. Cont PPI. Pain much better controlled, can likely reduce the tylenol. Functionally, he is min A LE dressing, SBA toileting, min A toilet transfers. D/w patient progress to date, on track for potential discharge home 02/21/18 but given previous h/o decompensation and medical complexity we are cautiously optimistic about this date. Patient remains medically stable to participate in IRF program. 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 Darrius Salas is a 62 yo M with PMH of COPD on 2-3L QHS, tobacco use, Afib on Xarelto, CAD s/p PCI (2012) who was originally admitted to rehab with multi- organism PNA after multiple intubations and PEA arrest. He was re-admitted to [facility] for loculated hydropneumothorax and is now s/p chest tube placement and decortication. Patient presents to IRF with critical illness myopathy, generalized weakness, decreased endurance, and impaired mobility and ADLs warranting PT/OT therapies. Rehabilitation Plan Rehabilitation: Patient will continue with comprehensive therapies including physical therapy, occupational therapy, speech & language pathology, specialized rehab nursing, neuropsychology and physiatry oversight. Goals: Mod I to SBA Tentative discharge date: 02/21/18 Recommended therapy after discharge: Home health with PT/OT Recommended equipment: Tub transfer bench; 4-wheel walker; elevated toilet seat/ commode over the toilet Daily Functional Update: Transfers Device Sit to Stand Transfer: Assistive Device: 4-Wheeled Walker (02/17/2018 9:00 AM) No Data Recorded Gait Device Assist Required Distance Gait: Assistive Device: 4-Wheeled Walker (02/16/2018 4:00 PM) No Data Recorded Gait Distance: 175 feet (150 ' x2 bouts) (02/16/2018 4:00 PM) Toileting Assist Required Equipment Toilet Transfer Toileting Assist: Stand By Assist (02/17/2018 9:00 AM) Toileting Equipment: Commode - 3 in 1 padded (02/17/2018 9:00 AM) No Data Recorded Dressing Lower Body LE Dressing Assist: Minimal Assist (02/17/2018 9:00 AM) Critical Illness Myopathy Acute on chronic hypoxic respiratory failure Legionella pneumonia (PNA), invasive necrotizing aspergillosis PNA, HSV & CMV PNA, Proteus Mirabilis PNA Decreased pulmonary reserve Generalized weakness Decreased endurance Impaired mobility and ADLs - s/p x3 intubation/extubations - s/p PEA arrest (extubated 11/24) - s/p treatment with vancomyin, linezolid, zosyn, valacyclovir, micafungin , valcyte - blood culture NGTD, UA neg, sputum culture normal alvaro >ID following, continue antibiotics Cresemba 372mg QD. Zosyn switched to PO augmentin, likely with only 2 weeks more after discharge >Continue aggressive pulmonary hygiene with Aerobika and IS >Consult PT/OT Right sided pleural effusion and empyema Loculated hydropneumothorax s/p chest tube x 2 01/22, positive for empyema S/p decortication of pleural effusion 01/[address] Xiao COPD, emphysema Acute on chronic hypoxic respiratory failure - on 2-3L QHS at baseline, currently requiring 1L at rest and 2-3L with exercise - chest tube changed by CTS CUSTOMER SALES SERVICE MANAGER on 02/16 - empty mini atrium PRN, no showering while chest tubes in place, call CTS CUSTOMER SALES SERVICE MANAGER/ PA if issues > Continue albuterol nebs BID and PRN >Continue SENIOR NET SOFTWARE ENGINEER Symbicort BID, flonase BID, and anoro ellipta 1 puff QD > Continue guaifenesin LA 600mg BID >Patient will need exercise ox and overnight ox prior to discharge if still requiring o2 (Wednesday night, Wednesday during the day (not ordered yet) > f/u Dr. 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 xarelto due to chest tube > Continue metoprolol 12.5mg BID > Continue decreased lasix dose today, 20mg BID, titrate up PRN >On digoxin 125mcg daily (level therapeutic), 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 Vasotect, Lipitor >Continue daily weights, CTM Adjustment disorder with depressed and anxious mood: neuropsych following Nausea/vomiting: zofran scheduled with meals, EKG ok, compazine PRN --> nausea improved with switching off zosyn Risk of opioid induced constipation: continue docusate and senna prn Macrocytic anemia, stable, CTM with CBC, transfusion 1U pRBCs 02/09 GERD: PPI Hypomagnesia: continue magnesium replacement Hypokalemia: continue K replacement Malnutrition: continue boost supplements, vit c, vit D, thiamine Pain Management: oxycodone 5mg Q6H PRN (not taking) and tylenol 1G TID, lidoderm patches Pressure injury left ear stage 3, present on admission: Foam offloading device, assess fit of tubing and adjust accordingly to prevent tension on ears. Apply Bacitracin ointment to wound BID. Pressure injury coccyx/buttocks, stage 1, present on admission: - Apply Criticaid barrier cream BID and PRN to protect skin from moisture related to urine/stool. Bowel: continent of bowel Bladder: continent of bladder, BVIs x3 until <125ml and ISC for >300ml Nutrition: Current diet: regular with boost plus TID Mental Health: consult neuropsychology to provide support / counseling DVT Prophylaxis: Uyen Vegas M.D. Physical Medicine and Rehabilitation, PGY-3 Subjective NEON. Pt resting comfortably in bed this morning. Reports no more bloody bowel movements yesterday evening or this morning. No other acute complaints. Objective Vital Signs: Last Filed Vital Signs: 24 Hour Range BP: 121/73 (02/17 1154) Temp: 36.5 C (97.7 F) (02/17 1154) Pulse: 85 (02/17 1154) Respirations: 19 PER MINUTE (02/17 1154) SpO2: 99 % (02/17 1155) O2 Delivery: Nasal Cannula (02/17 1155) BP: (121-129)/(73-78) Temp: [36.5 C (97.7 F)-36.7 C (98 F)] Pulse: [80-98] Respirations: [16 PER MINUTE-20 PER MINUTE] SpO2: [92 %-100 %] O2 Delivery: Nasal Cannula Intensity Pain Scale (Self Report): Asleep (02/17/18 0400) Vitals: 02/15/18 0600 02/16/18 0600 02/17/18 0558 Weight: 68.9 kg (152 lb) 68.3 kg (150 lb 9.6 oz) 68.5 kg (151 lb 1.6 oz) Intake/Output Summary: (Last 24 hours) Intake/Output Summary (Last 24 hours) at 02/17/2018 1306 Last data filed at 02/17/2018 0900 Gross per 24 hour Intake 790 ml Output 1275 ml Net -485 ml Stool Occurrence: 1 Oral Diet Order: Regular Last Bowel Movement Date: 02/17/18 Lab: No results found for this visit on 02/02/18 (from the past 24 hour(s)). Physical Exam VS: BP 121/73 (BP Source: Arm, Left Upper) | Pulse 85 | Temp 36.5 C (97.7 F) | Ht 182.9 cm (72") | Wt 68.5 kg (151 lb 1.6 oz) | SpO2 99% | BMI 20.49 kg/m gen - awake, alert, nad heent - nc/at cv - well perfused pulm - good inspiratory effort, on 1L abd - nt, nd, +BS ext - no c/e skin - warm, dry neuro - oriented, speech fluent and clear, appropriate responses to questions Therapy Notes & Labs Reviewed. Michael Vegas M.D. Physical Medicine and Rehabilitation, PGY-3 PRESS OPERATOR * Jovanna Bedolla RN - 02/17/2018 5:58 AM AIR PRESS OPERATOR Heart Failure Nursing Progress Note Admission Date: 02/02/2018 LOS: 15 days Admission Weight: 75.7 kg (166 lb 12.8 oz) Most recent weights (inpatient): Vitals: 02/15/18 0600 02/16/18 0600 02/17/18 0558 Weight: 68.9 kg (152 lb) 68.3 kg (150 lb 9.6 oz) 68.5 kg (151 lb 1.6 oz) Weight change from previous day: gain of 0.2kg Fluid restriction ordered: 2L Intake/Output Summary: (Last 24 hours) Intake/Output Summary (Last 24 hours) at 02/17/2018 0558 Last data filed at 02/17/2018 0520 Gross per 24 hour Intake 1670 ml Output 1205 ml Net 465 ml Is patient incontinent No Anticipated discharge date: 02-21-17 Discharge goals: Be independent Daily Assessment of Patient Stated Goals: Short Term Goal Identified by patient (Short Term=during hospitalization): Gain Strength PRESS OPERATOR * Osvadlo Lim RN - 02/16/2018 6:14 PM AIR PRESS OPERATOR Heart Failure Nursing Progress Note Admission Date: 02/02/2018 LOS: 14 days Admission Weight: 75.7 kg (166 lb 12.8 oz) Most recent weights (inpatient): Vitals: 02/14/18 0600 02/15/18 0600 02/16/18 0600 Weight: 68.7 kg (151 lb 6.4 oz) 68.9 kg (152 lb) 68.3 kg (150 lb 9.6 oz) Weight change from previous day:-0.6KG Fluid restriction ordered: 2L Intake/Output Summary: (Last 24 hours) Intake/Output Summary (Last 24 hours) at 02/16/2018 1814 Last data filed at 02/16/2018 1000 Gross per 24 hour Intake 2475 ml Output 1205 ml Net 1270 ml Is patient incontinent No Anticipated discharge date: 02/18 Discharge goals: Be be Independant Daily Assessment of Patient Stated Goals: Short Term Goal Identified by patient (Short Term=during hospitalization): Gain strength PRESS OPERATOR * Fco Messina MD - 02/16/2018 12:48 PM AIR PRESS OPERATOR Infectious disease Progress note Admission Date: 02/02/2018 LOS: 14 days Reason for Consult: Invasive aspergillosis Consult type: Opinion with orders Active Hospital Problems Diagnosis Critical illness myopathy Moderate malnutrition (HCC) Continued PO intake inadequate not meeting needs, resulting in new wt loss Atrial fibrillation with RVR (HCC) Empyema of right pleural space (HCC) Acute on chronic respiratory failure with hypoxia and hypercapnia (HCC) Pulmonary aspergillosis invasive type (HCC) COPD, severe (HCC) Secondary spontaneous pneumothorax Legionella pneumonia (HCC) Loculated pleural effusion Cytomegalovirus (CMV) viremia (HCC) Impaired mobility and activities of daily living Pneumonia S/P ablation of 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 3/20/[address] ablation [address]. Godfrey. CHF (congestive heart failure) ([facility]) CAD (coronary artery disease) 03/18/2012 - Cardiac Catheterization: PTCA and PCI using 3.0 x 20mm Promus to the midRCA. ([facility]). Paroxysmal 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 ([facility]) 03/17/2012 - ECHO: LVEF ~ 25%. LA [...] MR and TR. PAP ~ 40 mmHg. 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 Xarelto initiated COPD (chronic obstructive pulmonary disease) ([facility]) HTN (hypertension) HLD (hyperlipidemia) IMP: Invasive pulmonary aspergillosis in COPD patient with right-sided extensive disease s/p right decoritcation 01/29/18 -Ct chest 01/21/2018: Development of a moderate loculated right pneumothorax with anterior and apical components. Persistent extensive right lung consolidation compatible with pneumonia.Slight improvement in mild patchy and nodular left lung opacities compatible with resolving pneumonia and scarring. Left pleural effusion has resolved. A follow-up chest CT in 6 months is recommended to assess for stability or improvement of nodular components. Marked emphysema - S/P chest tube x 2 on 01/22/2018, fluid analysis consistent wit empyema - CT chest 01/25/2018: Significant overall improvement in the moderate loculated hydropneumothorax after placement of 2 pleural drains. Persistent extensive right lung consolidation compatible with pneumonia and/or atelectasis. - S/P thoracoscopy and I&D 01/28/2018, cultures negative, mucopurulent fluid drained Legionella pneumonia, also possible aspiration - At OSH started on Zosyn 10/31, escalated to vancomycin, anidulafungin ( unsure what dates added); zosyn switched to meropenem , vanc stopped at some point - negative blood cultures; bronch with MARIALUISA BAL on 11/08 with negative bacterial culture, unsure of fungal culture result -positive legionella urine antigen at CT 11/14: Multifocal right upper lobe consolidation with several air-fluid levels within bullae suggestive of multifocal necrotizing pneumonia. Air-fluid levels may represent infected or hemorrhagic bullae which often requires prolonged antibiotic therapy, similar to treating a pulmonary abscess. - Fungitell 38, Galactomannan 0.052. - [facility] (11/04)- peripheral blood cultures -no growth, Sputum/ endotracheal- mixed bacterial alvaro, few yeast (11/08) BAL/left upper lobe >1, 000 CFU/ML- C. 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 Not detected on first BAL, virus detected on 12/21/17 BAL. Treated. Significant debility P. mirabilispneumonia 01/16/18 DEONTE 01/26 REC: Having loose stools and upset stomach, will switch the Zosyn to po Augmentin, noted plan to discharge possibly Wednesday, If discharge on Wednesday amd tolerating Augmentin then would do augmentin for 2 more weeks from Wednesday and stop Continue Cresemba until february then stop If diarrhea is worse check c diff Monitor labs for toxicity Will follow. Mr. Salas has complex disease requiring complex medical decision making for pneumonia, aspergillosis, therapeutic drug monitoring, resp failure. I reviewed the chart and interviewed and examined the patient and formulated the plan as above.new leukocytosis Discussed with rehab resident I think he can follow with CT surgery after discharge, no need for a scheduled ID followup, will follow as needed Abx Zosyn 02/09 to 02/16 Augmentin 02/16 History of Present Illness: Darrius Salas is a 62 y.o. male Mostly off O2 Cough mild with sputum, cloudy Had loose stool X 4 yesterday and twice today, a bit better today Has nausea ++, appetite is poor, food tastes bad, nothing tastes good to him No rash still with chest tube No rash no abd pain no dysuria labs wbc 15 Creat stable Sputum with 10-25 PMN Abx Zosyn 02/09 Scheduled Meds: acetaminophen (TYLENOL) tablet 1,000 mg 1,000 mg Oral TID albuterol (PROAIR HFA, VENTOLIN HFA, or PROVENTIL HFA) inhaler 2 puff 2 puff Inhalation BID & PRN bacitracin topical ointment Topical BID digoxin (LANOXIN) tablet 125 mcg 125 mcg Oral QDAY enoxaparin (LOVENOX) syringe 40 mg 40 mg Subcutaneous QDAY fluticasone (FLONASE) nasal spray 2 spray 2 spray Each Nostril QDAY furosemide (LASIX) tablet 20 mg 20 mg Oral BID(-17) guaiFENesin LA (MUCINEX) tablet 600 mg 600 mg Oral BID isavuconazonium sulfate (CRESEMBA) capsule 372 mg 372 mg Oral QDAY(21) lidocaine (LIDODERM) 5 % topical patch 1-2 patch 1-2 patch Topical QDAY magnesium chloride (MAG DELAY) tablet 535 mg 535 mg Oral BID metoprolol tartrate (LOPRESSOR) tablet 12.5 mg 12.5 mg Oral BID ondansetron (ZOFRAN) tablet 4 mg 4 mg Oral TID w/ meals pantoprazole DR (PROTONIX) tablet 40 mg 40 mg Oral BID(-21) piperacillin/tazobactam (ZOSYN) 3.375 g in sodium chloride 0.9% (NS) 100 mL IVPB (MB+) 3.375 g Intravenous Q6H* polyethylene glycol 3350 (MIRALAX) packet 17 g 1 packet Oral BID sodium chloride PF 0.9% flush 30 mL 30 mL Intravenous FLUSH TID umeclidinium-vilanterol (ANORO ELLIPTA) 62.5-25 mcg/actuation inhaler 1 puff 1 puff Inhalation QDAY valGANciclovir (VALCYTE) tablet 900 mg 900 mg Oral BID w/meals vitamin A & D topical ointment Topical QDAY vitamins, multi w/minerals tablet 1 tablet 1 tablet Oral QDAY Continuous Infusions: PRN and Respiratory Meds:alteplase BID PRN, aluminum/magnesium hydroxide Q4H PRN , bisacodyl QDAY PRN, docusate BID PRN, milk of magnesia (CONC) Q4H PRN, oxyCODONE Q6H PRN, potassium chloride SR PRN OR potassium chloride PRN, prochlorperazine Q6H PRN, senna QHS PRN Review of Systems: +SOB, nausea, cough. No f/c/ns, FERGUSON, abd pain, myalgias, arthralgias. +weakness. Rest of 14-point ROS negative. Vital Signs: Last Filed in 24 hours Vital Signs: 24 hour Range BP: 111/83 (02/16 1236) Temp: 36.3 C (97.4 F) (02/16 1236) Pulse: 70 (02/16 1236) Respirations: 16 PER MINUTE (02/16 1236) SpO2: 99 % (02/16 1236) O2 Delivery: Nasal Cannula (02/16 123) BP: (111-141)/(64-90) Temp: [36.3 C (97.4 F)-36.6 C (97.9 F)] Pulse: [70-107] Respirations: [16 PER MINUTE-19 PER MINUTE] SpO2: [99 %-100 %] O2 Delivery: Nasal Cannula Physical Exam: General: Alert, cooperative, no distress, Head: Normocephalic, without obvious abnormality, atraumatic Throat: Lips, mucosa and tongue normal. No thrush Lungs: Poor air exchange bilaterally , improved Heart: Regular rate and rhythm Abdomen: Soft, mild epigastric ttp. Bowel sounds normal. Extremities: Extremities normal, atraumatic, no cyanosis or edema Lab/Radiology/Other Diagnostic Tests: Full labs and radiology viewed and reports reviewed. Reviewed Microbiology data from past and present. PRESS OPERATOR * Beatriz Ortiz MD - 02/16/2018 12:33 PM AIR PRESS OPERATOR ATTESTATION I personally performed the gaytan portions of the E/M visit, discussed case with resident and concur with resident documentation of history, physical exam, assessment, and treatment plan unless otherwise noted. Pt reports nausea a little better this week. C/o diarrhea, some red streaks again. Labs and VS reviewed and stable. Hgb has been stable, VSS without new tachycardia or tachynpnea. Last 2 BMs documented as formed/soft and loose, but with some blood. Will increase PPI BID, monitor VS and Hgb closely for possible GIB. Low threshold to transfer and GI consult if decompensates. Per ID, can change to Augmentin from Zosyn. No true diarrhea to check for c.diff at this time. Appreciate CTS CUSTOMER SALES SERVICE MANAGER f/u today for chest tubes, will have f/u in CTS clinic after discharge. Weaning O2 to 1/2 L at rest, 2-3L with activity, 1l overnight. Repeat O2 studies prior to discharge. Per d/w rehab team at conference, patient making progress towards goal of mod I with 4 wheeled walker, tub bench, commode. Tentative discharge date 02/21/18 pending medical stability, but may need to extend course. Progress this week, CGA gait, tolerating 1 hour in the chair at a time. Recommending HH therapies at time of discharge from rehab. Time spent with patient, majority spent on counseling patient/family and rest on coordination of rehab plan of care: 25 minutes Time spent coordination care/discharge in team huddle/conference: 10 minutes Total time: 35 minutes Staff name: Beatriz Ortiz MD Date: 02/16/2018 Physical Medicine & Rehabilitation Progress Note Today's Date: 02/16/2018 Admission Date: 02/02/2018 LOS: 14 days Insurance: Medicare Principal Problem: Critical illness myopathy Active Problems: CHF (congestive heart failure) (HCC) CAD (coronary artery disease) Paroxysmal 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 (HCC) longterm current use of anticoagulant COPD (chronic obstructive pulmonary disease) (HCC) HTN (hypertension) HLD (hyperlipidemia) S/P ablation of 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 Pneumonia Cytomegalovirus (CMV) viremia (HCC) Impaired mobility and activities of daily living Loculated pleural effusion Acute on chronic respiratory failure with hypoxia and hypercapnia (HCC) Pulmonary aspergillosis invasive type (HCC) COPD, severe (HCC) Secondary spontaneous pneumothorax Legionella pneumonia (HCC) Atrial fibrillation with RVR (HCC) Empyema of right pleural space (HCC) Moderate malnutrition (HCC) Assessment/Plan: Mr. Darrius Salas is a 62 yo M with PMH of COPD on 2-3L QHS, tobacco use, Afib on Xarelto, CAD s/p PCI (2012) who was originally admitted to rehab with multi- organism PNA after multiple intubations and PEA arrest. He was re-admitted to [facility] for loculated hydropneumothorax and is now s/p chest tube placement and decortication. Patient presents to IRF with critical illness myopathy, generalized weakness, decreased endurance, and impaired mobility and ADLs warranting PT/OT therapies. Rehabilitation Plan Rehabilitation: Patient will continue with comprehensive therapies including physical therapy, occupational therapy, speech & language pathology, specialized rehab nursing, neuropsychology and physiatry oversight. Goals: Mod I to SBA Tentative discharge date: 02/21/18 Recommended therapy after discharge: Home health with PT/OT Recommended equipment: Tub transfer bench; 4-wheel walker; elevated toilet seat/ commode over the toilet Daily Functional Update: Transfers Device Sit to Stand Transfer: Assistive Device: 4-Wheeled Walker (02/15/2018 1:00 PM) No Data Recorded Gait Device Assist Required Distance Gait: Assistive Device: 4-Wheeled Walker (02/15/2018 12:47 PM) No Data Recorded Gait Distance: 96 feet (175, 25, 120) (02/15/2018 12:47 PM) Standing Balance Static Dynamic No Data Recorded No Data Recorded Toileting Assist Required Equipment Toilet Transfer Toileting Assist: Stand By Assist (02/15/2018 1:00 PM) Toileting Equipment: Commode - 3 in 1 (02/15/2018 1:00 PM) No Data Recorded Dressing Lower Body LE Dressing Assist: Stand By Assist (02/15/2018 8:30 AM) Critical Illness Myopathy Acute on chronic hypoxic respiratory failure Legionella pneumonia (PNA), invasive necrotizing aspergillosis PNA, HSV & CMV PNA, Proteus Mirabilis PNA Decreased pulmonary reserve Generalized weakness Decreased endurance Impaired mobility and ADLs - Baseline O2 2-3 L QHS, currently tolerating 2L NC - s/p x3 intubation/extubations - s/p PEA arrest (extubated 11/24) - s/p treatment with vancomyin, linezolid, zosyn, valacyclovir, micafungin , valcyte - Stopped zosyn 02/04 and re-started 02/09 - blood culture NGTD, UA neg, sputum culture normal alvaro >ID following, continue antibiotics Cresemba 372mg QD and Zosyn >Continue aggressive pulmonary hygiene with Aerobika and IS >Consult PT/OT Right sided pleural effusion and empyema Loculated hydropneumothorax s/p chest tube x 2 01/22, positive for empyema S/p decortication of pleural effusion 01/[address] Xiao COPD, emphysema Acute on chronic hypoxic respiratory failure - on 2-3L QHS at baseline, currently requiring 1L at rest and 2-3L with exercise - chest tube changed by CTS CUSTOMER SALES SERVICE MANAGER on 02/16 - empty mini atrium PRN, no showering while chest tubes in place, call CTS CUSTOMER SALES SERVICE MANAGER/ PA if issues > Continue albuterol nebs BID and PRN >Continue SENIOR NET SOFTWARE ENGINEER Symbicort BID, flonase BID, and anoro ellipta 1 puff QD > Continue guaifenesin LA 600mg BID >Patient will need exercise ox and overnight ox prior to discharge if still requiring o2 (Wednesday night, Wednesday during the day (not ordered yet) > f/u Dr. Altamirano/CTS after discharge for chest tube Intermittent Hematochezia - No external hemorrhoids identified on rectal exam, trace blood (bilious) with ROYER on 02/13 - Hgb stable, VS stable - started on pantoprazole > Continue to monitor, If becomes unstable transfer for further workup Paroxysmal Atrial Fibrillation with RVR CAD s/p PCI 03/2012 Chronic HFpEF HTN HLD - s/p ablation 2013 - Failed cardioversion at OSH - Previously on amiodarone, d/c'd due to LFTs - 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 xarelto due to chest tube > Continue metoprolol 12.5mg BID > Continue decreased lasix dose today, 20mg BID, titrate up PRN >On digoxin 125mcg daily (level therapeutic), 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 Vasotect, Lipitor >Continue daily weights, CTM Adjustment disorder with depressed and anxious mood: neuropsych following Nausea/vomiting: zofran scheduled with meals, EKG ok, compazine PRN Risk of opioid induced constipation: continue docusate and senna prn Macrocytic anemia, stable, CTM with CBC, transfusion 1U pRBCs 02/09 GERD: PPI Hypomagnesia: continue magnesium replacement Hypokalemia: continue K replacement Malnutrition: continue boost supplements, vit c, vit D, thiamine Pain Management: oxycodone 5mg Q6H PRN and tylenol 1G TID, lidoderm patches Pressure injury left ear stage 3, present on admission: Foam offloading device, assess fit of tubing and adjust accordingly to prevent tension on ears. Apply Bacitracin ointment to wound BID. Pressure injury coccyx/buttocks, stage 1, present on admission: - Apply Criticaid barrier cream BID and PRN to protect skin from moisture related to urine/stool. - Avoid briefs if possible and use only one disposable pad at at time underneath pt to prevent heat and moisture trapping against skin. - Implement q2 hr turning schedule using foam wedge for support. Encourage and assist pt to shift weight on hips q15-30 minutes when out of bed to chair. - HOB less than or equal to 30 degrees, unless contraindicated, to prevent shearing at coccyx/sacrum. Assess Stage 1 pressure injuries for intact skin and blanchable redness. This would indicate damage has resolved and wound can be completed. Bowel: continent of bowel Bladder: continent of bladder, BVIs x3 until <125ml and ISC for >300ml Nutrition: Current diet: regular with boost plus TID Mental Health: consult neuropsychology to provide support / counseling DVT Prophylaxis: Uyen Vegas M.D. Physical Medicine and Rehabilitation, PGY-3 Subjective Patient seen working with OT at sink today without any signs of acute distress. No significant events noted overnight by nursing staff. Patient denies any acute complaints today. Objective Vital Signs: Last Filed Vital Signs: 24 Hour Range BP: 118/90 (02/16 922) Temp: 36.3 C (97.4 F) (02/17 748) Pulse: 107 (02/16 922) Respirations: 18 PER MINUTE (02/17 748) SpO2: 99 % (02/17 748) O2 Delivery: Nasal Cannula (02/17 748) BP: (114-141)/(64-90) Temp: [36.3 C (97.4 F)-36.6 C (97.9 F)] Pulse: [79-107] Respirations: [18 PER MINUTE-19 PER MINUTE] SpO2: [99 %-100 %] O2 Delivery: Nasal Cannula Vitals: 02/14/18 0600 02/15/18 0600 02/16/18 0600 Weight: 68.7 kg (151 lb 6.4 oz) 68.9 kg (152 lb) 68.3 kg (150 lb 9.6 oz) Intake/Output Summary: (Last 24 hours) Intake/Output Summary (Last 24 hours) at 02/16/2018 1233 Last data filed at 02/16/2018 1000 Gross per 24 hour Intake 2955 ml Output 1025 ml Net 1930 ml Stool Occurrence: 1 Oral Diet Order: Regular Last Bowel Movement Date: 02/16/18 Lab: Results for orders placed or performed during the hospital encounter of (from the past 24 hour(s)) CBC CELLULAR THERAPEUTICS Collection Time: 02/16/18 5:57 AM # # Low-High White Blood Cells 7.2 4.5 - 11.0 K/UL RBC 2.46 (L) 4.4 - 5.5 M/UL Hemoglobin 7.9 (L) 13.5 - 16.5 GM/DL Hematocrit 24.3 (L) 40 - 50 % MCV 98.4 80 - 100 FL MCH 32.3 26 - 34 PG MCHC 32.8 32.0 - 36.0 G/DL RDW 20.0 (H) 11 - 15 % Platelet Count 526 (H) 150 - 400 K/UL MPV 7.1 7 - 11 FL BASIC METABOLIC PANEL CELLULAR THERAPEUTICS Collection Time: 02/16/18 5:57 AM # # Low-High Sodium 138 137 - 147 MMOL/L Potassium 3.8 3.5 - 5.1 MMOL/L Chloride 108 98 - 110 MMOL/L CO2 25 21 - 30 MMOL/L Anion Gap 5 3 - 12 Glucose 77 70 - 100 MG/DL Blood Urea Nitrogen 9 7 - 25 MG/DL Creatinine 0.75 0.4 - 1.24 MG/DL Calcium 8.1 (L) 8.5 - 10.6 MG/DL eGFR Non >60 >60 mL/min eGFR >60 >60 mL/min Physical Exam VS: BP 118/90 | Pulse 107 | Temp 36.3 C (97.4 F) | Ht 182.9 cm (72") | Wt 68.3 kg (150 lb 9.6 oz) | SpO2 99% | BMI 20.43 kg/m Gen: Alert & Conversant, No Acute Distress, laying in bed HEENT: Normocephalic, atraumatic, sclera anicteric, conjunctiva not injected Neck: Supple, no elevated JVP Heart: Regular Rate & Rhythm, No Murmur Lungs: Good inspiratory effort , right chest tube in place Abdomen: Soft, non-distended, chest tube site c/d/i Skin: Warm, dry Psych: Pleasant mood Therapy Notes & Labs Reviewed. Michael Vegas M.D. Physical Medicine and Rehabilitation, PGY-3 PRESS OPERATOR * Shelly Corea, RT - 02/16/2018 10:43 AM AIR PRESS OPERATOR RT Adult Assessment Note NAME:Darrius Salas :1955 AGE: 62 y.o. ADMISSION DATE: 02/02/2018 DAYS ADMITTED: LOS: 14 days RT Treatment Plan: Protocol Plan: Medications Albuterol: MDI BID;MDI PRN Protocol Plan: Procedures Vibrating PEP Therapy: BID PAP: Place a nursing order for "IS Q1h While Awake" for any of Lung Expansion indicators Oxygen/Humidity: O2 to keep SpO2 > 92% Monitoring: Pulse oximetry BID & PRN Comment: Home O2 Additional Comments: Impressions of the patient: alert Intervention(s)/outcome(s): pt very compliant with medications and breathing exercises Patient education that was completed: none Recommendations to the care team: none Vital Signs: Pulse: Pulse: 107 O2 Device: $$ O2 Device: Standby Breath Sounds: All Breath Sounds: Clear (implies normal);Decreased(lungs cleared after coughing ) Respiratory Effort: nonlabored PRESS OPERATOR * Blanca Light APRN-NP - 02/16/2018 10:27 AM AIR PRESS OPERATOR Visited patient per concerns from nursing about chest tube drainage. Chest tube appeared to have some buildup of mucus, the tube was stripped, and a new Mini 500 Atrium was attached. The tube appears to be draining appropriately now. Patient was pleasant, and reported he is planning to be discharged February 21. Due to the amount of drainage seen today (100 mL thin serous) it would be appropriate to drain the atrium every other day and/or as needed. I did speak with the nurse on duty today of the above changes. I will report to the CTS office staff of the patient's discharge plan so they can facilitate appropriate follow up. Thank you, CHATO Rios *[id number] 10: 27 AM AIR PRESS OPERATOR * Garo Dumont RN - 02/16/2018 7:27 AM AIR PRESS OPERATOR Heart Failure Nursing Progress Note Admission Date: 02/02/2018 LOS: 14 days Admission Weight: 75.7 kg (166 lb 12.8 oz) Most recent weights (inpatient): Vitals: 02/14/18 0600 02/15/18 0600 02/16/18 0600 Weight: 68.7 kg (151 lb 6.4 oz) 68.9 kg (152 lb) 68.3 kg (150 lb 9.6 oz) Weight change from previous day:-0.6kg Fluid restriction ordered: n/a Intake/Output Summary: (Last 24 hours) Intake/Output Summary (Last 24 hours) at 02/16/2018 0701 Last data filed at 02/16/2018 0558 Gross per 24 hour Intake 2385 ml Output 1025 ml Net 1360 ml Is patient incontinent No Anticipated discharge date: 02/21/18 Discharge goals: gain strength Daily Assessment of Patient Stated Goals: Short Term Goal Identified by patient (Short Term=during hospitalization): No nausea/upset stomach PRESS OPERATOR * Tim Joiner MD - 02/15/2018 9:27 AM AIR PRESS OPERATOR Physical Medicine & Rehabilitation Progress Note Today's Date: 02/15/2018 Admission Date: 02/02/2018 LOS: 13 days Insurance: Medicare Principal Problem: Critical illness myopathy Active Problems: CHF (congestive heart failure) (HCC) CAD (coronary artery disease) Paroxysmal 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 (HCC) longterm current use of anticoagulant COPD (chronic obstructive pulmonary disease) (HCC) HTN (hypertension) HLD (hyperlipidemia) S/P ablation of 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 Pneumonia Cytomegalovirus (CMV) viremia (HCC) Impaired mobility and activities of daily living Loculated pleural effusion Acute on chronic respiratory failure with hypoxia and hypercapnia (HCC) Pulmonary aspergillosis invasive type (HCC) COPD, severe (HCC) Secondary spontaneous pneumothorax Legionella pneumonia (HCC) Atrial fibrillation with RVR (HCC) Empyema of right pleural space (HCC) Moderate malnutrition (HCC) Assessment/Plan: Mr. Darrius Salas is a 62 yo M with PMH of COPD on 2-3L QHS, tobacco use, Afib on Xarelto, CAD s/p PCI (2012) who was originally admitted to rehab with multi- organism PNA after multiple intubations and PEA arrest. He was re-admitted to [facility] for loculated hydropneumothorax and is now s/p chest tube placement and decortication. Patient presents to IRF with critical illness myopathy, generalized weakness, decreased endurance, and impaired mobility and ADLs warranting PT/OT therapies. Rehabilitation Plan Rehabilitation: Patient will continue with comprehensive therapies including physical therapy, occupational therapy, speech & language pathology, specialized rehab nursing, neuropsychology and physiatry oversight. Goals: Mod I to SBA Tentative discharge date: 02/21/18 Recommended therapy after discharge: Home health with PT/OT Recommended equipment: Tub transfer bench, 4 wheel RW Daily Functional Update: Transfers Device Sit to Stand Transfer: Assistive Device: 4-Wheeled Walker (02/14/2018 3:00 PM) No Data Recorded Gait Device Assist Required Distance Gait: Assistive Device: 4-Wheeled Walker (02/14/2018 3:00 PM) No Data Recorded Gait Distance: 30 feet (02/14/2018 3:00 PM) Standing Balance Static Dynamic No Data Recorded No Data Recorded Toileting Assist Required Equipment Toilet Transfer Toileting Assist: Stand By Assist (02/14/2018 9:00 AM) Toileting Equipment: Commode - 3 in 1 (02/10/2018 10:30 AM) No Data Recorded Dressing Lower Body LE Dressing Assist: Stand By Assist (02/14/2018 9:00 AM) Critical Illness Myopathy Acute on chronic hypoxic respiratory failure Legionella pneumonia (PNA), invasive necrotizing aspergillosis PNA, HSV & CMV PNA, Proteus Mirabilis PNA Decreased pulmonary reserve Generalized weakness Decreased endurance Impaired mobility and ADLs - Baseline O2 2-3 L QHS, currently tolerating 2L NC - s/p x3 intubation/extubations - s/p PEA arrest (extubated 11/24) - s/p treatment with vancomyin, linezolid, zosyn, valacyclovir, micafungin , valcyte - Stopped zosyn 02/04 and re-started 02/09 - blood culture NGTD, UA neg, sputum culture normal alvaro >ID following, continue antibiotics Cresemba 372mg QD and Zosyn >Continue aggressive pulmonary hygiene with Aerobika and IS >Consult PT/OT Right sided pleural effusion and empyema Loculated hydropneumothorax s/p chest tube x 2 01/22, positive for empyema S/p decortication of pleural effusion 01/[address] Xiao COPD, emphysema Acute on chronic hypoxic respiratory failure - on 2-3L QHS at baseline, currently requiring 2L > Continue maintenance of mini atrium, empty PRN, no showering while chest tubes in place, call CTS CUSTOMER SALES SERVICE MANAGER/PA if issues > Continue albuterol nebs BID and PRN >Continue SENIOR NET SOFTWARE ENGINEER Symbicort BID, flonase BID, and anoro ellipta 1 puff QD > Continue guaifenesin LA 600mg BID >Patient will need exercise ox and overnight ox prior to discharge if still requiring o2 > f/u Dr. Altamirano/CTS after discharge for chest tubes Intermittent Hematochezia: - No external hemorrhoids identified on rectal exam, trace blood (bilious) with ROYER on 02/13 - Hgb stable, VS stable > Continue to monitor, If becomes unstable transfer for further workup 02/15/2018: Denies recent bloody BMs, reports nausea has improved, Hb stable, will continue to monitor. Paroxysmal Atrial Fibrillation with RVR CAD s/p PCI 03/2012 Chronic HFpEF HTN HLD - s/p ablation 2013 - Failed cardioversion at OSH - Previously on amiodarone, d/c'd due to LFTs - 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 xarelto due to chest tube > Continue metoprolol 12.5mg BID > Continue decreased lasix dose today, 20mg BID, titrate up PRN >On digoxin 125mcg daily (level therapeutic), 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 Vasotect, Lipitor >Continue daily weights, CTM Adjustment disorder with depressed and anxious mood: neuropsych following Nausea/vomiting: zofran scheduled with meals, EKG ok, compazine PRN Risk of opioid induced constipation: continue docusate 100mg BID, senna 2 tab QHS Macrocytic anemia, stable, CTM with CBC, transfusion 1U pRBCs 02/09 GERD: PPI Hypomagnesia: continue magnesium replacement Hypokalemia: continue K replacement Malnutrition: continue boost supplements, vit c, vit D, thiamine Pain Management: oxycodone 5mg Q6H PRN and tylenol 1G TID, lidoderm patches Pressure injury left ear stage 3, present on admission: Foam offloading device, assess fit of tubing and adjust accordingly to prevent tension on ears. Apply Bacitracin ointment to wound BID. Pressure injury coccyx/buttocks, stage 1, present on admission: - Apply Criticaid barrier cream BID and PRN to protect skin from moisture related to urine/stool. - Avoid briefs if possible and use only one disposable pad at at time underneath pt to prevent heat and moisture trapping against skin. - Implement q2 hr turning schedule using foam wedge for support. Encourage and assist pt to shift weight on hips q15-30 minutes when out of bed to chair. - HOB less than or equal to 30 degrees, unless contraindicated, to prevent shearing at coccyx/sacrum. Assess Stage 1 pressure injuries for intact skin and blanchable redness. This would indicate damage has resolved and wound can be completed. Bowel: continent of bowel Bladder: continent of bladder, BVIs x3 until <125ml and ISC for >300ml Nutrition: Current diet: regular with boost plus TID Mental Health: consult neuropsychology to provide support / counseling DVT Prophylaxis: Lovenox} Subjective Darrius Salas is a 62 y.o. seen in his room this morning in bedside chair. He denies any new bloody BM and reports his Nausea has improved. He denies SOB, abd pain, N&V, CP. Objective Vital Signs: Last Filed Vital Signs: 24 Hour Range BP: 125/81 (02/15 831) Temp: 36.4 C (97.6 F) (02/15 831) Pulse: 107 (02/15 831) Respirations: 19 PER MINUTE (02/15 831) SpO2: 98 % (02/15 831) O2 Delivery: Nasal Cannula (02/15 831) BP: (117-129)/(62-83) Temp: [36.4 C (97.5 F)-37.3 C (99.2 F)] Pulse: [87-107] Respirations: [18 PER MINUTE-19 PER MINUTE] SpO2: [96 %-100 %] O2 Delivery: Nasal Cannula Intensity Pain Scale (Self Report): 4 (02/14/18 210) Vitals: 02/13/18 0640 02/14/18 0600 02/15/18 0600 Weight: 68.7 kg (151 lb 6.4 oz) 68.7 kg (151 lb 6.4 oz) 68.9 kg (152 lb) Intake/Output Summary: (Last 24 hours) Intake/Output Summary (Last 24 hours) at 02/15/2018 09 Last data filed at 02/15/2018 0424 Gross per 24 hour Intake 222 ml Output 1400 ml Net -1178 ml Stool Occurrence: 1 Oral Diet Order: Regular Last Bowel Movement Date: 02/15/18 Lab: Results for orders placed or performed during the hospital encounter of (from the past 24 hour(s)) CBC Collection Time: 02/15/18 6:09 AM # # Low-High White Blood Cells 6.9 4.5 - 11.0 K/UL RBC 2.47 (L) 4.4 - 5.5 M/UL Hemoglobin 8.0 (L) 13.5 - 16.5 GM/DL Hematocrit 24.2 (L) 40 - 50 % MCV 98.1 80 - 100 FL MCH 32.2 26 - 34 PG MCHC 32.8 32.0 - 36.0 G/DL RDW 20.2 (H) 11 - 15 % Platelet Count 453 (H) 150 - 400 K/UL MPV 7.1 7 - 11 FL BASIC METABOLIC PANEL Collection Time: 02/15/18 6:09 AM # # Low-High Sodium 137 137 - 147 MMOL/L Potassium 3.3 (L) 3.5 - 5.1 MMOL/L Chloride 106 98 - 110 MMOL/L CO2 27 21 - 30 MMOL/L Anion Gap 4 3 - 12 Glucose 80 70 - 100 MG/DL Blood Urea Nitrogen 8 7 - 25 MG/DL Creatinine 0.86 0.4 - 1.24 MG/DL Calcium 7.8 (L) 8.5 - 10.6 MG/DL eGFR Non >60 >60 mL/min eGFR >60 >60 mL/min Physical Exam VS: BP 125/81 (BP Source: Arm, Left Upper) | Pulse 107 | Temp 36.4 C (97.6 F) | Ht 182.9 cm (72") | Wt 68.9 kg (152 lb) | SpO2 98% | BMI 20.61 kg/m Gen: Alert & Conversant, No Acute Distress, laying in bed HEENT: Normocephalic, atraumatic, sclera anicteric, conjunctiva not injected Neck: Supple, no elevated JVP Heart: Regular Rate & Rhythm, No Murmur Lungs: Good inspiratory effort , CTAB, right chest tube in place, Mild Rt sided crackles on auscultation lung base Abdomen: Soft, non-distended, chest tube site c/d/i Skin: Warm, dry Psych: Pleasant mood Therapy Notes & Labs Reviewed. PRESS OPERATOR * Garo Dumont RN - 02/15/2018 6:57 AM AIR PRESS OPERATOR Heart Failure Nursing Progress Note Admission Date: 02/02/2018 LOS: 13 days Admission Weight: 75.7 kg (166 lb 12.8 oz) Most recent weights (inpatient): Vitals: 02/13/18 0640 02/14/18 0600 02/15/18 0600 Weight: 68.7 kg (151 lb 6.4 oz) 68.7 kg (151 lb 6.4 oz) 68.9 kg (152 lb) Weight change from previous day: +0.2kg Fluid restriction ordered: n/a Intake/Output Summary: (Last 24 hours) Intake/Output Summary (Last 24 hours) at 02/15/2018 0657 Last data filed at 02/15/2018 0424 Gross per 24 hour Intake 222 ml Output 1545 ml Net -1323 ml Is patient incontinent No Anticipated discharge date: 02/21/18 Discharge goals: gain strength; no nausea/upset stomach Daily Assessment of Patient Stated Goals: Short Term Goal Identified by patient (Short Term=during hospitalization): Tolerate several hours a day up in the chair PRESS OPERATOR * Nela Santoro MD - 02/14/2018 10:08 AM AIR PRESS OPERATOR Physical Medicine & Rehabilitation Progress Note Today's Date: 02/14/2018 Admission Date: 02/02/2018 LOS: 12 days Insurance: Medicare Principal Problem: Critical illness myopathy Active Problems: CHF (congestive heart failure) (HCC) CAD (coronary artery disease) Paroxysmal 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 (HCC) [employer]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 Darrius Salas is a 62 yo M with PMH of COPD on 2-3L QHS, tobacco use, Afib on Xarelto, CAD s/p PCI (2012) who was originally admitted to rehab with multi- organism PNA after multiple intubations and PEA arrest. He was re-admitted to [facility] for loculated hydropneumothorax and is now s/p chest tube placement and decortication. Patient presents to IRF with critical illness myopathy, generalized weakness, decreased endurance, and impaired mobility and ADLs warranting PT/OT therapies. Rehabilitation Plan Rehabilitation: Patient will continue with comprehensive therapies including physical therapy, occupational therapy, speech & language pathology, specialized rehab nursing, neuropsychology and physiatry oversight. Goals: Mod I to SBA Tentative discharge date: 02/21/18 Recommended therapy after discharge: Home health with PT/OT Recommended equipment: Tub transfer bench, 4 wheel RW Daily Functional Update: Transfers Device Sit to Stand Transfer: Assistive Device: 4-Wheeled Walker (02/12/2018 4:00 PM) No Data Recorded Gait Device Assist Required Distance Gait: Assistive Device: 4-Wheeled Walker (02/12/2018 4:00 PM) No Data Recorded Gait Distance: 90 feet (+20) (02/12/2018 4:00 PM) Standing Balance Static Dynamic No Data Recorded No Data Recorded Toileting Assist Required Equipment Toilet Transfer Toileting Assist: Stand By Assist (02/14/2018 9:00 AM) Toileting Equipment: Commode - 3 in 1 (02/10/2018 10:30 AM) No Data Recorded Dressing Lower Body LE Dressing Assist: Minimal Assist (02/05/2018 8:30 AM) Critical Illness Myopathy Acute on chronic hypoxic respiratory failure Legionella pneumonia (PNA), invasive necrotizing aspergillosis PNA, HSV & CMV PNA, Proteus Mirabilis PNA Decreased pulmonary reserve Generalized weakness Decreased endurance Impaired mobility and ADLs - Baseline O2 2-3 L QHS, currently tolerating 2L NC - s/p x3 intubation/extubations - s/p PEA arrest (extubated 11/24) - s/p treatment with vancomyin, linezolid, zosyn, valacyclovir, micafungin , valcyte - Stopped zosyn 02/04 and re-started 02/09 - blood culture NGTD, UA neg, sputum culture normal alvaro >ID following, continue antibiotics Cresemba 372mg QD and Zosyn >Continue aggressive pulmonary hygiene with Aerobika and IS >Consult PT/OT Right sided pleural effusion and empyema Loculated hydropneumothorax s/p chest tube x 2 01/22, positive for empyema S/p decortication of pleural effusion 01/[address] Xiao COPD, emphysema Acute on chronic hypoxic respiratory failure - on 2-3L QHS at baseline, currently requiring 2L > Continue maintenance of mini atrium, empty PRN, no showering while chest tubes in place, call CTS CUSTOMER SALES SERVICE MANAGER/PA if issues > Continue albuterol nebs BID and PRN >Continue SENIOR NET SOFTWARE ENGINEER Symbicort BID, flonase BID, and anoro ellipta 1 puff QD > Continue guaifenesin LA 600mg BID >Patient will need exercise ox and overnight ox prior to discharge if still requiring o2 > f/u Dr. Altmairano/CTS after discharge for chest tubes Intermittent Hematochezia: - No external hemorrhoids identified on rectal exam, trace blood (bilious) with ROYER on 02/13 - Hgb stable, VS stable > Continue to monitor, If becomes unstable transfer for further workup Paroxysmal Atrial Fibrillation with RVR CAD s/p PCI 03/2012 Chronic HFpEF HTN HLD - s/p ablation 2013 - Failed cardioversion at OSH - Previously on amiodarone, d/c'd due to LFTs - 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 xarelto due to chest tube > Continue metoprolol 12.5mg BID > Continue decreased lasix dose today, 20mg BID, titrate up PRN >On digoxin 125mcg daily (level therapeutic), 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 Vasotect, Lipitor >Continue daily weights, CTM Adjustment disorder with depressed and anxious mood: neuropsych following Nausea/vomiting: zofran scheduled with meals, EKG ok, compazine PRN Risk of opioid induced constipation: continue docusate 100mg BID, senna 2 tab QHS Macrocytic anemia, stable, CTM with CBC, transfusion 1U pRBCs 02/09 GERD: PPI Hypomagnesia: continue magnesium replacement Hypokalemia: continue K replacement Malnutrition: continue boost supplements, vit c, vit D, thiamine Pain Management: oxycodone 5mg Q6H PRN and tylenol 1G TID, lidoderm patches Pressure injury left ear stage 3, present on admission: Foam offloading device, assess fit of tubing and adjust accordingly to prevent tension on ears. Apply Bacitracin ointment to wound BID. Pressure injury coccyx/buttocks, stage 1, present on admission: - Apply Criticaid barrier cream BID and PRN to protect skin from moisture related to urine/stool. - Avoid briefs if possible and use only one disposable pad at at time underneath pt to prevent heat and moisture trapping against skin. - Implement q2 hr turning schedule using foam wedge for support. Encourage and assist pt to shift weight on hips q15-30 minutes when out of bed to chair. - HOB less than or equal to 30 degrees, unless contraindicated, to prevent shearing at coccyx/sacrum. Assess Stage 1 pressure injuries for intact skin and blanchable redness. This would indicate damage has resolved and wound can be completed. Bowel: continent of bowel Bladder: continent of bladder, BVIs x3 until <125ml and ISC for >300ml Nutrition: Current diet: regular with boost plus TID Mental Health: consult neuropsychology to provide support / counseling DVT Prophylaxis: Lovenox} Nela Santoro D.O., M.B.A. Physical Medicine and Rehabilitation, PGY-2 Pager [phone] Subjective Darrius Salas is a 62 y.o. seen in his room this morning in bed. Reports some blood in his BM today. Reports this has been going on at home on and off as well. He denies any abdominal pain. Reports he feels ok today. VS and Hgb stable. Will CTM. Objective Vital Signs: Last Filed Vital Signs: 24 Hour Range BP: 144/86 (02/14 0910) Temp: 36.7 C (98.1 F) (02/14 0910) Pulse: 97 (02/14 0950) Respirations: 18 PER MINUTE (02/14 0950) SpO2: 98 % (02/14 0950) O2 Delivery: Nasal Cannula (02/14 0910) BP: (118-144)/(69-86) Temp: [36.6 C (97.8 F)-36.8 C (98.2 F)] Pulse: [83-98] Respirations: [17 PER MINUTE-19 PER MINUTE] SpO2: [97 %-100 %] O2 Delivery: Nasal Cannula Vitals: 02/12/18 0644 02/13/18 0640 02/14/18 0600 Weight: 70.2 kg (154 lb 12.8 oz) 68.7 kg (151 lb 6.4 oz) 68.7 kg (151 lb 6.4 oz ) Intake/Output Summary: (Last 24 hours) Intake/Output Summary (Last 24 hours) at 02/14/2018 1008 Last data filed at 02/14/2018 0700 Gross per 24 hour Intake 640 ml Output 1165 ml Net -525 ml Stool Occurrence: 1 Oral Diet Order: Regular Last Bowel Movement Date: 02/14/18 Lab: Results for orders placed or performed during the hospital encounter of (from the past 24 hour(s)) CBC CELLULAR THERAPEUTICS Collection Time: 02/14/18 5:39 AM # # Low-High White Blood Cells 7.1 4.5 - 11.0 K/UL RBC 2.46 (L) 4.4 - 5.5 M/UL Hemoglobin 8.0 (L) 13.5 - 16.5 GM/DL Hematocrit 24.0 (L) 40 - 50 % MCV 97.8 80 - 100 FL MCH 32.5 26 - 34 PG MCHC 33.3 32.0 - 36.0 G/DL RDW 20.6 (H) 11 - 15 % Platelet Count 536 (H) 150 - 400 K/UL MPV 6.9 (L) 7 - 11 FL BASIC METABOLIC PANEL CELLULAR THERAPEUTICS Collection Time: 02/14/18 5:39 AM # # Low-High Sodium 139 137 - 147 MMOL/L Potassium 3.3 (L) 3.5 - 5.1 MMOL/L Chloride 106 98 - 110 MMOL/L CO2 29 21 - 30 MMOL/L Anion Gap 4 3 - 12 Glucose 79 70 - 100 MG/DL Blood Urea Nitrogen 10 7 - 25 MG/DL Creatinine 0.81 0.4 - 1.24 MG/DL Calcium 8.0 (L) 8.5 - 10.6 MG/DL eGFR Non >60 >60 mL/min eGFR >60 >60 mL/min Physical Exam VS: BP 144/86 (BP Source: Arm, Left Upper) | Pulse 97 | Temp 36.7 C (98.1 F) | Ht 182.9 cm (72") | Wt 68.7 kg (151 lb 6.4 oz) | SpO2 98% | BMI 20.53 kg/m Gen: Alert & Conversant, No Acute Distress, laying in bed HEENT: Normocephalic, atraumatic, sclera anicteric, conjunctiva not injected Neck: Supple, no elevated JVP Heart: Regular Rate & Rhythm, No Murmur Lungs: Good inspiratory effort , CTAB, right chest tube in place, draining serous fluid well, 1 L o2 Abdomen: Soft, non-distended, chest tube site c/d/i Skin: Warm, dry Therapy Notes & Labs Reviewed. PRESS OPERATOR Associated attestation - Tim Joiner MD - 02/14/2018 10:24 AM AIR PRESS OPERATOR Rehabilitation Medicine Attending Physician Attestation: I personally performed gaytan portions of the history and exam. I discussed the case with the resident and agree with the resident's documentation of history, physical assessment and treatment plan unless otherwise noted. Thank you for allowing us to participate in the care of this patient. Tim Joiner MD 02/14/2018 10:24 AM Attending physician * Kaylen Lynch, CONSTANTIN - 02/14/2018 9:40 AM AIR PRESS OPERATOR 0910 Loose brown stool no blood PRESS OPERATOR * Kacie Evans - 02/14/2018 7:44 AM AIR PRESS OPERATOR On 02/13 at 2140 pt had a loose brown bowel movement. At 0649 pt had a loose medium bright red stool. Vital signs remained within defined limits on this shift. Pt resting comfortably in bed. MD notified of red stool. PRESS OPERATOR * Kacie Evans - 02/14/2018 6:54 AM AIR PRESS OPERATOR Heart Failure Nursing Progress Note Admission Date: 02/02/2018 LOS: 12 days Admission Weight: 75.7 kg (166 lb 12.8 oz) Most recent weights (inpatient): Vitals: 02/12/18 0644 02/13/18 0640 02/14/18 0600 Weight: 70.2 kg (154 lb 12.8 oz) 68.7 kg (151 lb 6.4 oz) 68.7 kg (151 lb 6.4 oz ) Weight change from previous day:0 Fluid restriction ordered: none Intake/Output Summary: (Last 24 hours) Intake/Output Summary (Last 24 hours) at 02/14/2018 0654 Last data filed at 02/14/2018 0418 Gross per 24 hour Intake 1190 ml Output 1185 ml Net 5 ml Is patient incontinent No Anticipated discharge date: TBD Discharge goals: To feel strong again Daily Assessment of Patient Stated Goals: Short Term Goal Identified by patient (Short Term=during hospitalization): To "have stomach settled" PRESS OPERATOR * Katheryn Keene RN - 02/13/2018 7:08 PM AIR PRESS OPERATOR Heart Failure Nursing Progress Note Admission Date: 02/02/2018 LOS: 11 days Admission Weight: 75.7 kg (166 lb 12.8 oz) Most recent weights (inpatient): Vitals: 02/11/18 0616 02/12/18 0644 02/13/18 0640 Weight: 70.4 kg (155 lb 3.2 oz) 70.2 kg (154 lb 12.8 oz) 68.7 kg (151 lb 6.4 oz ) Weight change from previous day:-1.542 kg Fluid restriction ordered: No Intake/Output Summary: (Last 24 hours) Intake/Output Summary (Last 24 hours) at 02/13/2018 1908 Last data filed at 02/13/2018 1733 Gross per 24 hour Intake 1190 ml Output 1670 ml Net -480 ml Is patient incontinent No Anticipated discharge date: 02/21/2018 Discharge goals: strength Daily Assessment of Patient Stated Goals: Short Term Goal Identified by patient (Short Term=during hospitalization): strength PRESS OPERATOR * Beatriz Henderson - 02/13/2018 6:59 PM AIR PRESS OPERATOR ACTIVITY THERAPY PROGRESS NOTE Therapist and patient completed a 1:1 wellness session for in-room resources. PRESS OPERATOR * Ramon Martinez MD - 02/13/2018 11:40 AM AIR PRESS OPERATOR Examined patient after rounds to discuss potential transfer back to acute care for further work up of GI bleed given his bright red blood per rectum. Patient notes last BM did not have blood in it and he is overall feeling somewhat better than when we first saw him on rounds. Discussed with GI who recommended transfer for workup if bleeding persists. For now, it seems reasonable for watchful waiting with strict q4 vitals to monitor for volume status changes given that overall he seems to be improving and Hemoglobin is stable if not slightly improving. Discussed with staff. Ramon Martinez MD 02/13/2018 11:46 AM PRESS OPERATOR * Gene Wang RT - 02/13/2018 11:05 AM AIR PRESS OPERATOR RT Adult Assessment Note NAME:Darrius Salas :1955 AGE: 62 y.o. ADMISSION DATE: 02/02/2018 DAYS ADMITTED: LOS: 11 days RT Treatment Plan: Protocol Plan: Medications Albuterol: MDI BID Tiotropium: MDI Q Day Protocol Plan: Procedures Vibrating PEP Therapy: BID PAP: Place a nursing order for "IS Q1h While Awake" for any of Lung Expansion indicators Oxygen/Humidity: O2 to keep SpO2 > 92% Monitoring: Pulse oximetry BID & PRN Additional Comments: Impressions of the patient: pt is lying in bed, he says he isn't feeling the best. He has some Ronchi, but is able to clear them with a cough Intervention(s)/outcome(s): Re evaluated no changes Patient education that was completed: None Recommendations to the care team: Continue treatments as planned. Vital Signs: Pulse: Pulse: 102 RR: 16 SpO2: 97 O2 Device: Nasal Cannula Liter Flow: O2%: 97 Breath Sounds: All Breath Sounds: Decreased;Rhonchi(Ronchi upper lobes and decreased bilaterally in lower lobes) Respiratory Effort: Unlabored PRESS OPERATOR * Tim Joiner MD - 02/13/2018 8:36 AM AIR PRESS OPERATOR Physical Medicine & Rehabilitation Progress Note Today's Date: 02/13/2018 Admission Date: 02/02/2018 LOS: 11 days Insurance: Medicare Principal Problem: Critical illness myopathy Active Problems: CHF (congestive heart failure) (HCC) CAD (coronary artery disease) Paroxysmal 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 (HCC) 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 Darrius Salas is a 62 yo M with PMH of COPD on 2-3L QHS, tobacco use, Afib on Xarelto, CAD s/p PCI (2012) who was originally admitted to rehab with multi- organism PNA after multiple intubations and PEA arrest. He was re-admitted to [facility] for loculated hydropneumothorax and is now s/p chest tube placement and decortication. Patient presents to IRF with critical illness myopathy, generalized weakness, decreased endurance, and impaired mobility and ADLs warranting PT/OT therapies. Rehabilitation Plan Rehabilitation: Patient will continue with comprehensive therapies including physical therapy, occupational therapy, speech & language pathology, specialized rehab nursing, neuropsychology and physiatry oversight. Goals: Mod I to SBA Tentative discharge date: 02/21/18 Recommended therapy after discharge: Home health with PT/OT Recommended equipment: Tub transfer bench, 4 wheel RW Daily Functional Update: Transfers Device Sit to Stand Transfer: Assistive Device: 4-Wheeled Walker (02/12/2018 4:00 PM) No Data Recorded Gait Device Assist Required Distance Gait: Assistive Device: 4-Wheeled Walker (02/12/2018 4:00 PM) No Data Recorded Gait Distance: 90 feet (+20) (02/12/2018 4:00 PM) Standing Balance Static Dynamic No Data Recorded No Data Recorded Toileting Assist Required Equipment Toilet Transfer Toileting Assist: Stand By Assist (02/10/2018 10:30 AM) Toileting Equipment: Commode - 3 in 1 (02/10/2018 10:30 AM) No Data Recorded Dressing Lower Body LE Dressing Assist: Minimal Assist (02/05/2018 8:30 AM) Critical Illness Myopathy Acute on chronic hypoxic respiratory failure Legionella pneumonia (PNA), invasive necrotizing aspergillosis PNA, HSV & CMV PNA, Proteus Mirabilis PNA Decreased pulmonary reserve Generalized weakness Decreased endurance Impaired mobility and ADLs - Baseline O2 2-3 L QHS, currently tolerating 2L NC - s/p x3 intubation/extubations - s/p PEA arrest (extubated 11/24) - s/p treatment with vancomyin, linezolid, zosyn, valacyclovir, micafungin , valcyte - Stopped zosyn 02/04 and re-started 02/09 >ID following, blood culture NGTD, UA neg, sputum culture pending, continue zosyn for now >Continue antibiotics Cresemba 372mg QD and Zosyn; per ID note >Continue aggressive pulmonary hygiene with Aerobika and IS >Consult PT/OT Right sided pleural effusion and empyema Loculated hydropneumothorax s/p chest tube x 2 01/22, positive for empyema S/p decortication of pleural effusion 01/[address] Xiao COPD, emphysema Acute on chronic hypoxic respiratory failure - on 2-3L QHS at baseline, currently requiring 2L > Continue maintenance of mini atrium, empty PRN, no showering while chest tubes in place, call CTS CUSTOMER SALES SERVICE MANAGER/PA if issues > Continue albuterol nebs BID and PRN >Continue SENIOR NET SOFTWARE ENGINEER Symbicort BID, flonase BID, and anoro ellipta 1 puff QD > Continue guaifenesin LA 600mg BID >Patient will need exercise ox and overnight ox prior to discharge if still requiring o2 > f/u Dr. 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 tube > Continue metoprolol 12.5mg BID > restart lasix at lower dose today, 20mg BID >On digoxin 125mcg daily (level therapeutic), 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 Vasotect, Lipitor >Continue daily weights, CTM Adjustment disorder with depressed and anxious mood: neuropsych following Nausea/vomiting: zofran scheduled with meals, EKG ok Risk of opioid induced constipation: continue docusate 100mg BID, senna 2 tab QHS Macrocytic anemia, stable, CTM with CBC, transfusion 1U pRBCs 02/09 GERD: PPI Hypomagnesia: continue magnesium replacement Hypokalemia: continue K replacement Malnutrition: continue boost supplements, vit c, vit D, thiamine Pain Management: oxycodone 5mg Q3H PRN and tylenol 1G TID, lidoderm patches Pressure injury left ear stage 3, present on admission: Foam offloading device, assess fit of tubing and adjust accordingly to prevent tension on ears. Apply Bacitracin ointment to wound BID. Pressure injury coccyx/buttocks, stage 1, present on admission: - Apply Criticaid barrier cream BID and PRN to protect skin from moisture related to urine/stool. - Avoid briefs if possible and use only one disposable pad at at time underneath pt to prevent heat and moisture trapping against skin. - Implement q2 hr turning schedule using foam wedge for support. Encourage and assist pt to shift weight on hips q15-30 minutes when out of bed to chair. - HOB less than or equal to 30 degrees, unless contraindicated, to prevent shearing at coccyx/sacrum. Assess Stage 1 pressure injuries for intact skin and blanchable redness. This would indicate damage has resolved and wound can be completed. Bowel: continent of bowel 02/13: RN reports blood in his stool last night ands this AM (Hb stable this AM) . He reports diarrhrea this AM as well. Will consult GI for new bleed with associated decreased appetite. Bladder: continent of bladder, BVIs x3 until <125ml and ISC for >300ml Nutrition: Current diet: regular with boost plus TID Mental Health: consult neuropsychology to provide support / counseling DVT Prophylaxis: Lovenox} Subjective Darrius Salas is a 62 y.o. seen in his room this morning in bed. He reports diarrhea this AM with blood in it. He reports decreased appetite as well. He denies abd pain, acid reflux, N&V, CP, SOB. Objective Vital Signs: Last Filed Vital Signs: 24 Hour Range BP: 134/74 (02/14 640) Temp: 36.6 C (97.9 F) (02/14 640) Pulse: 101 (02/14 640) Respirations: 22 PER MINUTE (02/14 640) SpO2: 95 % (02/14 640) O2 Delivery: Nasal Cannula (02/14 640) BP: (118-134)/(64-79) Temp: [36.5 C (97.7 F)-36.6 C (97.9 F)] Pulse: [92-104] Respirations: [18 PER MINUTE-22 PER MINUTE] SpO2: [95 %-100 %] O2 Delivery: Nasal Cannula Intensity Pain Scale (Self Report): 5 (02/12/182122) Vitals: 02/11/18 0616 02/12/18 0644 12/30/18 0640 Weight: 70.4 kg (155 lb 3.2 oz) 70.2 kg (154 lb 12.8 oz) 68.7 kg (151 lb 6.4 oz ) Intake/Output Summary: (Last 24 hours) Intake/Output Summary (Last 24 hours) at 02/13/2018 0836 Last data filed at 02/13/2018 0720 Gross per 24 hour Intake 280 ml Output 1600 ml Net -1320 ml Stool Occurrence: 1 Oral Diet Order: Regular Last Bowel Movement Date: 02/13/18 Lab: Results for orders placed or performed during the hospital encounter of (from the past 24 hour(s)) BASIC METABOLIC PANEL Collection Time: 02/13/18 6:09 AM # # Low-High Sodium 139 137 - 147 MMOL/L Potassium 3.3 (L) 3.5 - 5.1 MMOL/L Chloride 106 98 - 110 MMOL/L CO2 29 21 - 30 MMOL/L Anion Gap 4 3 - 12 Glucose 89 70 - 100 MG/DL Blood Urea Nitrogen 11 7 - 25 MG/DL Creatinine 0.80 0.4 - 1.24 MG/DL Calcium 8.0 (L) 8.5 - 10.6 MG/DL eGFR Non >60 >60 mL/min eGFR >60 >60 mL/min CBC Collection Time: 02/13/18 6:09 AM # # Low-High White Blood Cells 7.4 4.5 - 11.0 K/UL RBC 2.44 (L) 4.4 - 5.5 M/UL Hemoglobin 7.9 (L) 13.5 - 16.5 GM/DL Hematocrit 24.0 (L) 40 - 50 % MCV 98.3 80 - 100 FL MCH 32.5 26 - 34 PG MCHC 33.1 32.0 - 36.0 G/DL RDW 20.4 (H) 11 - 15 % Platelet Count 408 (H) 150 - 400 K/UL MPV 7.1 7 - 11 FL Physical Exam VS: BP 134/74 (BP Source: Arm, Left Upper) | Pulse 101 | Temp 36.6 C (97.9 F) | Ht 182.9 cm (72") | Wt 68.7 kg (151 lb 6.4 oz) | SpO2 95% | BMI 20.53 kg/m Gen: Alert & Conversant, No Acute Distress, sitting up on edge of bed HEENT: Normocephalic, atraumatic, sclera anicteric, conjunctiva not injected Neck: Supple, no elevated JVP Heart: Regular Rate & Rhythm, No Murmur Lungs: Good inspiratory effort , CTAB, right chest tube in place, draining serous fluid well, 3 L o2 (No change from prev eval) Abdomen: Soft, non-tender, non-distended, chest tube site c/d/i, +BS Skin: Warm, dry GI: No external hemorrhoids identified on rectal exam, trace blood (bilious) with ROYER. Therapy Notes & Labs Reviewed. PRESS OPERATOR * Garo Dumont RN - 02/13/2018 7:30 AM AIR PRESS OPERATOR Heart Failure Nursing Progress Note Admission Date: 02/02/2018 LOS: 11 days Admission Weight: 75.7 kg (166 lb 12.8 oz) Most recent weights (inpatient): Vitals: 02/11/18 0616 02/12/18 0644 02/13/18 0640 Weight: 70.4 kg (155 lb 3.2 oz) 70.2 kg (154 lb 12.8 oz) 68.7 kg (151 lb 6.4 oz ) Weight change from previous day: -1.5kg Fluid restriction ordered: n/a Intake/Output Summary: (Last 24 hours) Intake/Output Summary (Last 24 hours) at 02/13/2018 0730 Last data filed at 02/13/2018 0720 Gross per 24 hour Intake 830 ml Output 2000 ml Net -1170 ml Is patient incontinent No Anticipated discharge date: 02/21/18 Discharge goals: mod I and gain independence w/ ADLs Daily Assessment of Patient Stated Goals: Short Term Goal Identified by patient (Short Term=during hospitalization): Tolerate several hours a day up in the chair PRESS OPERATOR * Garo Dumont RN - 02/13/2018 1:40 AM AIR PRESS OPERATOR Pt noted to have blood in stool (seen both in brief and in toilet). VSS. Pt denies hx of hemorrhoids or having had blood in stool before. manager call center physician aware. No new orders. Will CTM. PRESS OPERATOR * Beatriz Henderson - 02/12/2018 6:38 PM AIR PRESS OPERATOR ACTIVITY THERAPY PROGRESS NOTE Patient attended a musical performance provided by members of the [employer] between 1500 and 1600. PRESS OPERATOR * Katheryn Keene RN - 02/12/2018 6:33 PM AIR PRESS OPERATOR Heart Failure Nursing Progress Note Admission Date: 02/02/2018 LOS: 10 days Admission Weight: 75.7 kg (166 lb 12.8 oz) Most recent weights (inpatient): Vitals: 02/10/18 0649 02/11/18 0616 02/12/18 0644 Weight: 69.7 kg (153 lb 9.6 oz) 70.4 kg (155 lb 3.2 oz) 70.2 kg (154 lb 12.8 oz ) Weight change from previous day:0.181 kg Fluid restriction ordered: No Intake/Output Summary: (Last 24 hours) Intake/Output Summary (Last 24 hours) at 02/12/2018 1834 Last data filed at 02/12/2018 1637 Gross per 24 hour Intake 1220 ml Output 1900 ml Net -680 ml Is patient incontinent No Anticipated discharge date: 02-21-2018 Discharge goals: strength Daily Assessment of Patient Stated Goals: Short Term Goal Identified by patient (Short Term=during hospitalization): strength PRESS OPERATOR * Tim Joiner MD - 02/12/2018 8:36 AM AIR PRESS OPERATOR Physical Medicine & Rehabilitation Progress Note Today's Date: 02/12/2018 Admission Date: 02/02/2018 LOS: 10 days Insurance: Medicare Principal Problem: Critical illness myopathy Active Problems: CHF (congestive heart failure) (HCC) CAD (coronary artery disease) Paroxysmal 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 (HCC) longterm current use of anticoagulant COPD (chronic obstructive pulmonary disease) (HCC) HTN (hypertension) HLD (hyperlipidemia) S/P ablation of 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 Pneumonia Cytomegalovirus (CMV) viremia ([facility]) Impaired mobility and activities of daily living Loculated pleural effusion Acute on chronic respiratory failure with hypoxia and hypercapnia (HCC) Pulmonary aspergillosis invasive type (HCC) COPD, severe (HCC) Secondary spontaneous pneumothorax Legionella pneumonia (HCC) Atrial fibrillation with RVR (HCC) Empyema of right pleural space (HCC) Moderate malnutrition (HCC) Assessment/Plan: Mr. Darrius Salas is a 62 yo M with PMH of COPD on 2-3L QHS, tobacco use, Afib on Xarelto, CAD s/p PCI (2012) who was originally admitted to rehab with multi- organism PNA after multiple intubations and PEA arrest. He was re-admitted to [facility] for loculated hydropneumothorax and is now s/p chest tube placement and decortication. Patient presents to IRF with critical illness myopathy, generalized weakness, decreased endurance, and impaired mobility and ADLs warranting PT/OT therapies. Rehabilitation Plan Rehabilitation: Patient will continue with comprehensive therapies including physical therapy, occupational therapy, speech & language pathology, specialized rehab nursing, neuropsychology and physiatry oversight. Goals: Mod I to SBA Tentative discharge date: 02/21/18 Recommended therapy after discharge: Home health with PT/OT Recommended equipment: Tub transfer bench, 4 wheel RW Daily Functional Update: Transfers Device Sit to Stand Transfer: Assistive Device: 4-Wheeled Walker (02/11/2018 3:00 PM) No Data Recorded Gait Device Assist Required Distance Gait: Assistive Device: 4-Wheeled Walker (02/11/2018 3:00 PM) No Data Recorded Gait Distance: 30 feet (02/11/2018 3:00 PM) Standing Balance Static Dynamic No Data Recorded No Data Recorded Toileting Assist Required Equipment Toilet Transfer Toileting Assist: Stand By Assist (02/10/2018 10:30 AM) Toileting Equipment: Commode - 3 in 1 (02/10/2018 10:30 AM) No Data Recorded Dressing Lower Body LE Dressing Assist: Minimal Assist (02/05/2018 8:30 AM) Critical Illness Myopathy Acute on chronic hypoxic respiratory failure Legionella pneumonia (PNA), invasive necrotizing aspergillosis PNA, HSV & CMV PNA, Proteus Mirabilis PNA Decreased pulmonary reserve Generalized weakness Decreased endurance Impaired mobility and ADLs - Baseline O2 2-3 L QHS, currently tolerating 2L NC - s/p x3 intubation/extubations - s/p PEA arrest (extubated 11/24) - s/p treatment with vancomyin, linezolid, zosyn, valacyclovir, micafungin , valcyte - Stopped zosyn 02/04 and re-started 02/09 >ID following, blood culture NGTD, UA neg, sputum culture pending, continue zosyn for now >Continue antibiotics Cresemba 372mg QD and Zosyn; per ID note >Continue aggressive pulmonary hygiene with Aerobika and IS >Consult PT/OT Right sided pleural effusion and empyema Loculated hydropneumothorax s/p chest tube x 2 01/22, positive for empyema S/p decortication of pleural effusion 01/[address] Xiao COPD, emphysema Acute on chronic hypoxic respiratory failure - on 2-3L QHS at baseline, currently requiring 2L > Continue maintenance of mini atrium, empty PRN, no showering while chest tubes in place, call CTS CUSTOMER SALES SERVICE MANAGER/PA if issues > Continue albuterol nebs BID and PRN >Continue SENIOR NET SOFTWARE ENGINEER Symbicort BID, flonase BID, and anoro ellipta 1 puff QD > Continue guaifenesin LA 600mg BID >Patient will need exercise ox and overnight ox prior to discharge if still requiring o2 > f/u Dr. 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 tube > Continue metoprolol 12.5mg BID > restart lasix at lower dose today, 20mg BID >On digoxin 125mcg daily (level therapeutic), 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 Vasotect, Lipitor >Continue daily weights, CTM Adjustment disorder with depressed and anxious mood: neuropsych following Nausea/vomiting: zofran scheduled with meals, EKG ok Risk of opioid induced constipation: continue docusate 100mg BID, senna 2 tab QHS Macrocytic anemia, stable, CTM with CBC, transfusion 1U pRBCs 02/09 GERD: PPI Hypomagnesia: continue magnesium replacement Hypokalemia: continue K replacement Malnutrition: continue boost supplements, vit c, vit D, thiamine Pain Management: oxycodone 5mg Q3H PRN and tylenol 1G TID, lidoderm patches Pressure injury left ear stage 3, present on admission: Foam offloading device, assess fit of tubing and adjust accordingly to prevent tension on ears. Apply Bacitracin ointment to wound BID. Pressure injury coccyx/buttocks, stage 1, present on admission: - Apply Criticaid barrier cream BID and PRN to protect skin from moisture related to urine/stool. - Avoid briefs if possible and use only one disposable pad at at time underneath pt to prevent heat and moisture trapping against skin. - Implement q2 hr turning schedule using foam wedge for support. Encourage and assist pt to shift weight on hips q15-30 minutes when out of bed to chair. - HOB less than or equal to 30 degrees, unless contraindicated, to prevent shearing at coccyx/sacrum. Assess Stage 1 pressure injuries for intact skin and blanchable redness. This would indicate damage has resolved and wound can be completed. Bowel: continent of bowel Bladder: continent of bladder, BVIs x3 until <125ml and ISC for >300ml Nutrition: Current diet: regular with boost plus TID Mental Health: consult neuropsychology to provide support / counseling DVT Prophylaxis: Lovenox} Nela Santoro D.O.,M.B.A. Physical Medicine and Rehabilitation, PGY-2 Pager [phone] Subjective Darrius Salas is a 62 y.o. seen in his room this morning in bed. He is sleeping well and denies N&V, CP, SOB. Objective Vital Signs: Last Filed Vital Signs: 24 Hour Range BP: 130/77 (02/12 451) Temp: 36.4 C (97.5 F) (02/12 451) Pulse: 98 (02/12 451) Respirations: 18 PER MINUTE (02/12 451) SpO2: 98 % (02/12 451) O2 Delivery: Nasal Cannula (02/12 451) BP: (104-130)/(67-77) Temp: [36.3 C (97.3 F)-36.7 C (98.1 F)] Pulse: [87-98] Respirations: [18 PER MINUTE] SpO2: [98 %-100 %] O2 Delivery: Nasal Cannula Intensity Pain Scale (Self Report): 4 (02/11/18 0844) Vitals: 02/10/18 0649 02/11/18 0616 02/12/18 0644 Weight: 69.7 kg (153 lb 9.6 oz) 70.4 kg (155 lb 3.2 oz) 70.2 kg (154 lb 12.8 oz ) Intake/Output Summary: (Last 24 hours) Intake/Output Summary (Last 24 hours) at 02/12/2018 0836 Last data filed at 02/12/2018 0730 Gross per 24 hour Intake 870 ml Output 1085 ml Net -215 ml Stool Occurrence: 1 Oral Diet Order: Regular Last Bowel Movement Date: 02/12/18 Lab: Results for orders placed or performed during the hospital encounter of (from the past 24 hour(s)) BASIC METABOLIC PANEL Collection Time: 02/12/18 5:26 AM # # Low-High Sodium 138 137 - 147 MMOL/L Potassium 3.7 3.5 - 5.1 MMOL/L Chloride 105 98 - 110 MMOL/L CO2 30 21 - 30 MMOL/L Anion Gap 3 3 - 12 Glucose 98 70 - 100 MG/DL Blood Urea Nitrogen 10 7 - 25 MG/DL Creatinine 0.88 0.4 - 1.24 MG/DL Calcium 7.8 (L) 8.5 - 10.6 MG/DL eGFR Non >60 >60 mL/min eGFR >60 >60 mL/min CBC Collection Time: 02/12/18 5:26 AM # # Low-High White Blood Cells 8.0 4.5 - 11.0 K/UL RBC 2.34 (L) 4.4 - 5.5 M/UL Hemoglobin 7.6 (L) 13.5 - 16.5 GM/DL Hematocrit 23.3 (L) 40 - 50 % MCV 99.6 80 - 100 FL MCH 32.5 26 - 34 PG MCHC 32.6 32.0 - 36.0 G/DL RDW 20.9 (H) 11 - 15 % Platelet Count 419 (H) 150 - 400 K/UL MPV 7.3 7 - 11 FL Physical Exam VS: BP 130/77 (BP Source: Arm, Left Upper) | Pulse 98 | Temp 36.4 C (97.5 F) | Ht 182.9 cm (72") | Wt 70.2 kg (154 lb 12.8 oz) | SpO2 98% | BMI 20.99 kg/m Gen: Alert & Conversant, No Acute Distress, sitting up on edge of bed HEENT: Normocephalic, atraumatic, sclera anicteric, conjunctiva not injected Neck: Supple, no elevated JVP Heart: Regular Rate & Rhythm, No Murmur Lungs: Good inspiratory effort , CTAB, right chest tube in place, draining serous fluid well, 3 L o2 (No change from prev eval) Abdomen: Soft, non-tender, non-distended, chest tube site c/d/i, +BS Skin: Warm, dry Psych: Pleasant mood Therapy Notes & Labs Reviewed. PRESS OPERATOR * Garo Dumont RN - 02/12/2018 6:45 AM AIR PRESS OPERATOR Heart Failure Nursing Progress Note Admission Date: 02/02/2018 LOS: 10 days Admission Weight: 75.7 kg (166 lb 12.8 oz) Most recent weights (inpatient): Vitals: 02/10/18 0649 02/11/18 0616 02/12/18 0644 Weight: 69.7 kg (153 lb 9.6 oz) 70.4 kg (155 lb 3.2 oz) 70.2 kg (154 lb 12.8 oz ) Weight change from previous day: -0.2kg Fluid restriction ordered: n/a Intake/Output Summary: (Last 24 hours) Intake/Output Summary (Last 24 hours) at 02/12/2018 0645 Last data filed at 02/12/2018 0502 Gross per 24 hour Intake 870 ml Output 1045 ml Net -175 ml Is patient incontinent No Anticipated discharge date: 02/21/18 Discharge goals: mod I and gain independence w/ ADLs Daily Assessment of Patient Stated Goals: Short Term Goal Identified by patient (Short Term=during hospitalization): Tolerate several hours a day up in the chair PRESS OPERATOR * Beatriz Henderson - 02/11/2018 7:36 PM AIR PRESS OPERATOR ACTIVITY THERAPY PROGRESS NOTE Therapist provided patient with headphone to use with iPad, and assisted him with navigating to YouTube. PRESS OPERATOR * Patrica Zapien - 02/11/2018 4:49 PM AIR PRESS OPERATOR CLINICAL NUTRITION Clinical Nutrition Follow-Up Summary NAME:Darrius Salas :1955 AGE: 62 y.o. ADMISSION DATE: 02/02/2018 DAYS ADMITTED: LOS: 9 days Nutrition Assessment of Patient: Malnutrition Assessment: Malnutrition present Current Oral Intake: Inadequate Estimated Calorie Needs: 5471-3298(25-30kcal/kg of 74kg ) Estimated Protein Needs: 89-104(1.2-1.4g/kg of 74kg) Oral Diet Order: Regular Oral Supplement: Boost Plus, TID ICD-10 code E44: Acute illness/Moderate non-severe malnutrition Energy Intake: < 75% of est. energy requirement for > 7days, Weight loss: 5% x 1 month, Mild loss of body fat, Mild loss of muscle mass Loss of Subcutaneous Fat: Yes Mild Triceps Muscle Wasting: Yes Mild Deltoid, Interosseous, Christian, calf, quad Edema: Yes Mild Lower Extremeties(1+) Malnutrition Interventions: Encouraged continued use of shakes Comments: Pt readmitted to rehab 02/02 following acute admit for loculated hydropneumothorax s/p chest tube and decortication 01/28. PMH of COPD, HTN, HLD , CAF, CHF and afib. Pt has had difficulties with nausea, poor appetite, and altered taste which have impacted his oral intake. Many vit/min were removed recently to alleviate nausea. Pt continues to have same issue, but remains motivated to continue protein drinks when unable to eat meal intake adequately. Weight had been stable from recent admit to current, until noted drop on 02/06 of 10#. New weights solidify current wt of 155# to be accurate. Previously, noted to have wasting and now with 6% wt loss x 1 month based on recent admit, pt meets malnutrition criteria. Intakes are not meeting needs. Pt with chest tube likely impairing taste and impacting stomach. Pressure injury to ear resolved. Remaining stage 1's to L/R buttocks and coccyx. Pitting 1+ edema noted. Anti-emetics on board. Last BM 02/11; on bowel program. Pt remains positive to meet goals. Continued encouragement. Recommendation: continue current diet order. Offer protein drink or smoothie 3-4 per day. Intervention / Plan: Monitor PO intake, wt, labs, skin, gi, meds, fluids Nutrition Diagnosis: Inadequate oral intake Etiology: nausea, altered taste Signs & Symptoms: pt report of meds affecting his intake. Goals: Patient to consume >75% of meals Time Frame: Within 72 Hours Status: Partially met;Ongoing Patrica Zapien, RD, LD *[id number] PRESS OPERATOR * Beatriz Ortiz MD - 02/11/2018 10:24 AM AIR PRESS OPERATOR ATTESTATION I personally performed the gaytan portions of the E/M visit, discussed case with resident and concur with resident documentation of history, physical exam, assessment, and treatment plan unless otherwise noted. Pt c/o nausea today, frustrated. Labs and VS reviewed and stable. Cultures from 02/09 NGTD. Wt stable, trace edema BLE returned. Back down to 2L NC O2, cough stable. Will resume low dose Lasix and monitor volume. Can use compazine prn nausea, already on schedule zofran before meals. Cont Zosyn per ID, clinically improving. Working with OT on bed bath today, patient remains motivated to improve. Patient remains medically stable to participate in IRF program. Staff name: Beatriz Ortiz MD Date: 02/11/2018 Physical Medicine & Rehabilitation Progress Note Today's Date: 02/11/2018 Admission Date: 02/02/2018 LOS: 9 days Insurance: Medicare Principal Problem: Critical illness myopathy Active Problems: CHF (congestive heart failure) (HCC) CAD (coronary artery disease) Paroxysmal 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 (HCC) longterm current use of anticoagulant COPD (chronic obstructive pulmonary disease) (HCC) HTN (hypertension) HLD (hyperlipidemia) S/P ablation of 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 Pneumonia Cytomegalovirus (CMV) viremia (HCC) Impaired mobility and activities of daily living Loculated pleural effusion Acute on chronic respiratory failure with hypoxia and hypercapnia (HCC) Pulmonary aspergillosis invasive type (HCC) COPD, severe (HCC) Secondary spontaneous pneumothorax Legionella pneumonia (HCC) Atrial fibrillation with RVR (HCC) Empyema of right pleural space (HCC) Assessment/Plan: Mr. Darrius Salas is a 62 yo M with PMH of COPD on 2-3L QHS, tobacco use, Afib on Xarelto, CAD s/p PCI (2012) who was originally admitted to rehab with multi- organism PNA after multiple intubations and PEA arrest. He was re-admitted to [facility] for loculated hydropneumothorax and is now s/p chest tube placement and decortication. Patient presents to IRF with critical illness myopathy, generalized weakness, decreased endurance, and impaired mobility and ADLs warranting PT/OT therapies. Rehabilitation Plan Rehabilitation: Patient will continue with comprehensive therapies including physical therapy, occupational therapy, speech & language pathology, specialized rehab nursing, neuropsychology and physiatry oversight. Goals: Mod I to SBA Tentative discharge date: 02/21/18 Recommended therapy after discharge: Home health with PT/OT Recommended equipment: Tub transfer bench, 4 wheel RW Daily Functional Update: Transfers Device Sit to Stand Transfer: Assistive Device: 4-Wheeled Walker (02/10/2018 11:00 AM) No Data Recorded Gait Device Assist Required Distance Gait: Assistive Device: 4-Wheeled Walker (02/10/2018 11:00 AM) No Data Recorded Gait Distance: 150 feet (x2; to/from gym/room) (02/10/2018 11:00 AM) Standing Balance Static Dynamic No Data Recorded No Data Recorded Toileting Assist Required Equipment Toilet Transfer Toileting Assist: Stand By Assist (02/10/2018 10:30 AM) Toileting Equipment: Commode - 3 in 1 (02/10/2018 10:30 AM) No Data Recorded Dressing Lower Body LE Dressing Assist: Minimal Assist (02/05/2018 8:30 AM) Critical Illness Myopathy Acute on chronic hypoxic respiratory failure Legionella pneumonia (PNA), invasive necrotizing aspergillosis PNA, HSV & CMV PNA, Proteus Mirabilis PNA Decreased pulmonary reserve Generalized weakness Decreased endurance Impaired mobility and ADLs - Baseline O2 2-3 L QHS, currently tolerating 2L NC - s/p x3 intubation/extubations - s/p PEA arrest (extubated 11/24) - s/p treatment with vancomyin, linezolid, zosyn, valacyclovir, micafungin , valcyte - Stopped zosyn 02/04 and re-started 02/09 >ID following, blood culture NGTD, UA neg, sputum culture pending, continue zosyn for now >Continue antibiotics Cresemba 372mg QD and Zosyn; per ID note >Continue aggressive pulmonary hygiene with Aerobika and IS >Consult PT/OT Right sided pleural effusion and empyema Loculated hydropneumothorax s/p chest tube x 2 01/22, positive for empyema S/p decortication of pleural effusion 01/[address] Xiao COPD, emphysema Acute on chronic hypoxic respiratory failure - on 2-3L QHS at baseline, currently requiring 2L > Continue maintenance of mini atrium, empty PRN, no showering while chest tubes in place, call CTS CUSTOMER SALES SERVICE MANAGER/PA if issues > Continue albuterol nebs BID and PRN >Continue SENIOR NET SOFTWARE ENGINEER Symbicort BID, flonase BID, and anoro ellipta 1 puff QD > Continue guaifenesin LA 600mg BID >Patient will need exercise ox and overnight ox prior to discharge if still requiring o2 > f/u Dr. 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 tube > Continue metoprolol 12.5mg BID > restart lasix at lower dose today, 20mg BID >On digoxin 125mcg daily (level therapeutic), 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 Vasotect, Lipitor >Continue daily weights, CTM Adjustment disorder with depressed and anxious mood: neuropsych following Nausea/vomiting: zofran scheduled with meals, EKG ok Risk of opioid induced constipation: continue docusate 100mg BID, senna 2 tab QHS Macrocytic anemia, stable, CTM with CBC, transfusion 1U pRBCs 02/09 GERD: PPI Hypomagnesia: continue magnesium replacement Hypokalemia: continue K replacement Malnutrition: continue boost supplements, vit c, vit D, thiamine Pain Management: oxycodone 5mg Q3H PRN and tylenol 1G TID, lidoderm patches Pressure injury left ear stage 3, present on admission: Foam offloading device, assess fit of tubing and adjust accordingly to prevent tension on ears. Apply Bacitracin ointment to wound BID. Pressure injury coccyx/buttocks, stage 1, present on admission: - Apply Criticaid barrier cream BID and PRN to protect skin from moisture related to urine/stool. - Avoid briefs if possible and use only one disposable pad at at time underneath pt to prevent heat and moisture trapping against skin. - Implement q2 hr turning schedule using foam wedge for support. Encourage and assist pt to shift weight on hips q15-30 minutes when out of bed to chair. - HOB less than or equal to 30 degrees, unless contraindicated, to prevent shearing at coccyx/sacrum. Assess Stage 1 pressure injuries for intact skin and blanchable redness. This would indicate damage has resolved and wound can be completed. Bowel: continent of bowel Bladder: continent of bladder, BVIs x3 until <125ml and ISC for >300ml Nutrition: Current diet: regular with boost plus TID Mental Health: consult neuropsychology to provide support / counseling DVT Prophylaxis: Lovenox} Nela Santoro D.O.,M.B.A. Physical Medicine and Rehabilitation, PGY-2 Pager [phone] Subjective Darrius Montero Josue is a 62 y.o. seen in his room this morning. He reports that he feels much better today. F/u labs are pending. Denies SOB or nausea so far. No other changes today. Continue IV zosyn. Objective Vital Signs: Last Filed Vital Signs: 24 Hour Range BP: 107/81 (02/11 821) Temp: 36.6 C (97.8 F) (02/11 0800) Pulse: 95 (02/12 800) Respirations: 19 PER MINUTE (02/11 0403) SpO2: 99 % (02/12 800) O2 Delivery: Nasal Cannula (02/12 800) BP: (107-139)/(56-81) Temp: [36.2 C (97.2 F)-36.6 C (97.8 F)] Pulse: [91-96] Respirations: [19 PER MINUTE-20 PER MINUTE] SpO2: [97 %-99 %] O2 Delivery: Nasal Cannula Intensity Pain Scale (Self Report): 4 (02/11/18 0844) Vitals: 02/09/18 0545 02/10/18 0649 02/11/18 0616 Weight: 71.2 kg (157 lb) 69.7 kg (153 lb 9.6 oz) 70.4 kg (155 lb 3.2 oz) Intake/Output Summary: (Last 24 hours) Intake/Output Summary (Last 24 hours) at 02/11/2018 1024 Last data filed at 02/11/2018 0900 Gross per 24 hour Intake 720 ml Output 950 ml Net -230 ml Stool Occurrence: 1 Oral Diet Order: Regular Last Bowel Movement Date: 02/11/18 Lab: Results for orders placed or performed during the hospital encounter of (from the past 24 hour(s)) CBC AND DIFF Collection Time: 02/10/18 3:35 PM # # Low-High White Blood Cells 9.3 4.5 - 11.0 K/UL RBC 2.38 (L) 4.4 - 5.5 M/UL Hemoglobin 7.8 (L) 13.5 - 16.5 GM/DL Hematocrit 23.3 (L) 40 - 50 % MCV 97.9 80 - 100 FL MCH 32.7 26 - 34 PG MCHC 33.4 32.0 - 36.0 G/DL RDW 21.6 (H) 11 - 15 % Platelet Count 358 150 - 400 K/UL MPV 7.2 7 - 11 FL Neutrophils 79 (H) 41 - 77 % Lymphocytes 7 (L) 24 - 44 % Monocytes 13 (H) 4 - 12 % Eosinophils 0 0 - 5 % Basophils 1 0 - 2 % Absolute Neutrophil Count 7.30 (H) 1.8 - 7.0 K/UL Absolute Lymph Count 0.70 (L) 1.0 - 4.8 K/UL Absolute Monocyte Count 1.20 (H) 0 - 0.80 K/UL Absolute Eosinophil Count 0.00 0 - 0.45 K/UL Absolute Basophil Count 0.10 0 - 0.20 K/UL COMPREHENSIVE METABOLIC PANEL Collection Time: 02/10/18 3:35 PM # # Low-High Sodium 133 (L) 137 - 147 MMOL/L Potassium 3.6 3.5 - 5.1 MMOL/L Chloride 100 98 - 110 MMOL/L Glucose 142 (H) 70 - 100 MG/DL Blood Urea Nitrogen 10 7 - 25 MG/DL Creatinine 0.97 0.4 - 1.24 MG/DL Calcium 7.9 (L) 8.5 - 10.6 MG/DL Total Protein 6.2 6.0 - 8.0 G/DL Total Bilirubin 0.2 (L) 0.3 - 1.2 MG/DL Albumin 2.0 (L) 3.5 - 5.0 G/DL Alk Phosphatase 125 (H) 25 - 110 U/L AST (SGOT) 15 7 - 40 U/L CO2 29 21 - 30 MMOL/L ALT (SGPT) 6 (L) 7 - 56 U/L Anion Gap 4 3 - 12 eGFR Non >60 >60 mL/min eGFR >60 >60 mL/min CBC CELLULAR THERAPEUTICS Collection Time: 02/11/18 5:50 AM # # Low-High White Blood Cells 8.4 4.5 - 11.0 K/UL RBC 2.35 (L) 4.4 - 5.5 M/UL Hemoglobin 7.8 (L) 13.5 - 16.5 GM/DL Hematocrit 23.2 (L) 40 - 50 % MCV 98.7 80 - 100 FL MCH 33.0 26 - 34 PG MCHC 33.4 32.0 - 36.0 G/DL RDW 21.4 (H) 11 - 15 % Platelet Count 329 150 - 400 K/UL MPV 8.0 7 - 11 FL BASIC METABOLIC PANEL CELLULAR THERAPEUTICS Collection Time: 02/11/18 5:50 AM # # Low-High Sodium 137 137 - 147 MMOL/L Potassium 3.8 3.5 - 5.1 MMOL/L Chloride 104 98 - 110 MMOL/L CO2 30 21 - 30 MMOL/L Anion Gap 3 3 - 12 Glucose 76 70 - 100 MG/DL Blood Urea Nitrogen 10 7 - 25 MG/DL Creatinine 0.88 0.4 - 1.24 MG/DL Calcium 7.9 (L) 8.5 - 10.6 MG/DL eGFR Non >60 >60 mL/min eGFR >60 >60 mL/min Physical Exam VS: BP 107/81 (BP Source: Arm, Left Upper) | Pulse 95 | Temp 36.6 C (97.8 F) | Ht 182.9 cm (72") | Wt 70.4 kg (155 lb 3.2 oz) | SpO2 99% | BMI 21.05 kg/m Gen: Alert & Conversant, No Acute Distress, sitting up on edge of bed HEENT: Normocephalic, atraumatic, sclera anicteric, conjunctiva not injected Neck: Supple, no elevated JVP Heart: Regular Rate & Rhythm, No Murmur Lungs: Good inspiratory effort , CTAB, right chest tube in place, draining serous fluid well, 3 L o2 Abdomen: Soft, non-tender, non-distended, chest tube site c/d/i, +BS Skin: Warm, dry Ext: Minimal edema noted in b/l lower limbs MS: Moves b/l upper and lower extremities against gravity spontaneously Therapy Notes & Labs Reviewed. PRESS OPERATOR * Lamar Rodríguez - 02/11/2018 6:30 AM AIR PRESS OPERATOR Heart Failure Nursing Progress Note Admission Date: 02/02/2018 LOS: 9 days Admission Weight: 75.7 kg (166 lb 12.8 oz) Most recent weights (inpatient): Vitals: 02/09/18 0545 02/10/18 0649 02/11/18 0616 Weight: 71.2 kg (157 lb) 69.7 kg (153 lb 9.6 oz) 70.4 kg (155 lb 3.2 oz) Weight change from previous day: +0.7kg Fluid restriction ordered: none Intake/Output Summary: (Last 24 hours) Intake/Output Summary (Last 24 hours) at 02/11/2018 0631 Last data filed at 02/11/2018 0510 Gross per 24 hour Intake 480 ml Output 950 ml Net -470 ml Is patient incontinent Yes. Is brief scale being used? Yes Anticipated discharge date: 02-21-17 Discharge goals: up to chair three hours a day Daily Assessment of Patient Stated Goals: Short Term Goal Identified by patient (Short Term=during hospitalization): Ambulate to bathroom with staff PRESS OPERATOR * Beatriz Henderson - 02/10/2018 7:36 PM AIR PRESS OPERATOR ACTIVITY THERAPY EVALUATION NOTE Therapist reviewed pts chart for demographics, current care, discharge plan, social and medical history, and any other relevant notes. Then met with pt to discuss leisure and community resource interests. Patient does want to get his rest before going home, but said if he is awake he would like to participate in groups. As patient's schedule allows this therapist will meet with him for music therapy to help process emotions associated with stress and pain. During previous rehab stay patient started making up lyrics to a song about staying in the hospital. He would like to continue this as scheduling and fatigue levels permit. PRESS OPERATOR * Estephanie Tapia MD - 02/10/2018 1:35 PM AIR PRESS OPERATOR ATTESTATION I personally performed the gaytan portions of the E/M visit, discussed case with resident and concur with resident documentation of history, physical exam, assessment, and treatment plan unless otherwise noted. Vitals reviewed and stable. Labs pending - will follow-up. BCx no growth x 1 day. UA unremarkable. Patient reports feeling much better today after transfusion and re-start anti- biotics yesterday. Better able to participate in endurance activities with therapy today Appreciate ongoing ID follow-up, recs reviewed, continuing Zosyn and Cresemba Chest tube in place, O2 needs stable Normovolemic on exam and weight stable. Continue to hold Lasix at this time. Follow-up creatinine. 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 Darrius Salas is a 62 yo M with PMH of COPD on 2-3L QHS, tobacco use, Afib on Xarelto, CAD s/p PCI (2012) who was originally admitted to rehab with multi- organism PNA after multiple intubations and PEA arrest. He was re-admitted to [facility] for loculated hydropneumothorax and is now s/p chest tube placement and decortication. Patient presents to IRF with critical illness myopathy, generalized weakness, decreased endurance, and impaired mobility and ADLs warranting PT/OT therapies. Rehabilitation Plan Rehabilitation: Patient will continue with comprehensive therapies including physical therapy, occupational therapy, speech & language pathology, specialized rehab nursing, neuropsychology and physiatry oversight. Goals: Mod I to SBA Tentative discharge date: 02/21/18 Recommended therapy after discharge: Home health with PT/OT Recommended equipment: Tub transfer bench, 4 wheel RW Daily Functional Update: Transfers Device Sit to Stand Transfer: Assistive Device: 4-Wheeled Walker (02/10/2018 11:00 AM) No Data Recorded Gait Device Assist Required Distance Gait: Assistive Device: 4-Wheeled Walker (02/10/2018 11:00 AM) No Data Recorded Gait Distance: 150 feet (x2) (02/10/2018 11:00 AM) Standing Balance Static Dynamic No Data Recorded No Data Recorded Toileting Assist Required Equipment Toilet Transfer Toileting Assist: Stand By Assist (02/10/2018 10:30 AM) Toileting Equipment: Commode - 3 in 1 (02/10/2018 10:30 AM) No Data Recorded Dressing Lower Body LE Dressing Assist: Minimal Assist (02/05/2018 8:30 AM) Critical Illness Myopathy Acute on chronic hypoxic respiratory failure Legionella pneumonia (PNA), invasive necrotizing aspergillosis PNA, HSV & CMV PNA, Proteus Mirabilis PNA Decreased pulmonary reserve Generalized weakness Decreased endurance Impaired mobility and ADLs - Baseline O2 2-3 L QHS, currently tolerating 2L NC - s/p x3 intubation/extubations - s/p PEA arrest (extubated 11/24) - s/p treatment with vancomyin, linezolid, zosyn, valacyclovir, micafungin , valcyte - Stopped zosyn 02/04 and re-started 02/09 >ID following, blood culture NGTD, UA neg, sputum culture pending, continue zosyn for now >Continue antibiotics Cresemba 372mg QD and Zosyn; per ID note >Continue aggressive pulmonary hygiene with Aerobika and IS >Consult PT/OT Right sided pleural effusion and empyema Loculated hydropneumothorax s/p chest tube x 2 01/22, positive for empyema S/p decortication of pleural effusion 01/[address] Xiao COPD, emphysema Acute on chronic hypoxic respiratory failure - on 2-3L QHS at baseline, currently requiring 3L > Continue maintenance of mini atrium, empty PRN, no showering while chest tubes in place, call CTS CUSTOMER SALES SERVICE MANAGER/PA if issues > Continue albuterol nebs BID and PRN >Continue SENIOR NET SOFTWARE ENGINEER Symbicort BID, flonase BID, and anoro ellipta 1 puff QD > Continue guaifenesin LA 600mg BID >Patient will need exercise ox and overnight ox prior to discharge if still requiring o2 > f/u Dr. 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 tube > Continue metoprolol 12.5mg BID > Continue lasix at 60mg BID, held 02/07 due to low BP, s/p IVF 500cc, hold another day and re-evaluate tomorrow >On digoxin 125mcg daily (level therapeutic), 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 Vasotect, Lipitor >Continue daily weights, CTM Adjustment disorder with depressed and anxious mood: neuropsych following Nausea/vomiting: zofran scheduled with meals, EKG ok Risk of opioid induced constipation: continue docusate 100mg BID, senna 2 tab QHS Macrocytic anemia, stable, CTM with CBC, transfusion 1U pRBCs 02/09 GERD: PPI Hypomagnesia: continue magnesium replacement Hypokalemia: continue K replacement Malnutrition: continue boost supplements, vit c, vit D, thiamine Pain Management: oxycodone 5mg Q3H PRN and tylenol 1G TID, lidoderm patches Pressure injury left ear stage 3, present on admission: Foam offloading device, assess fit of tubing and adjust accordingly to prevent tension on ears. Apply Bacitracin ointment to wound BID. Pressure injury coccyx/buttocks, stage 1, present on admission: - Apply Criticaid barrier cream BID and PRN to protect skin from moisture related to urine/stool. - Avoid briefs if possible and use only one disposable pad at at time underneath pt to prevent heat and moisture trapping against skin. - Implement q2 hr turning schedule using foam wedge for support. Encourage and assist pt to shift weight on hips q15-30 minutes when out of bed to chair. - HOB less than or equal to 30 degrees, unless contraindicated, to prevent shearing at coccyx/sacrum. Assess Stage 1 pressure injuries for intact skin and blanchable redness. This would indicate damage has resolved and wound can be completed. Bowel: continent of bowel Bladder: continent of bladder, BVIs x3 until <125ml and ISC for >300ml Nutrition: Current diet: regular with boost plus TID Mental Health: consult neuropsychology to provide support / counseling DVT Prophylaxis: Lovenox} Nela Santoro D.O.,M.B.A. Physical Medicine and Rehabilitation, PGY-2 Pager [phone] Subjective Darrius Salas is a 62 y.o. seen in his room this morning. He reports that he feels much better today. F/u labs are pending. Denies SOB or nausea so far. No other changes today. Continue IV zosyn. Objective Vital Signs: Last Filed Vital Signs: 24 Hour Range BP: 127/67 (02/10 0806) Temp: 36.3 C (97.4 F) (02/10 0356) Pulse: 80 (02/10 0953) Respirations: 20 PER MINUTE (02/10 0953) SpO2: 98 % (02/10 0953) O2 Delivery: Nasal Cannula (02/10 035) BP: (97-127)/(58-76) Temp: [36.3 C (97.4 F)-37.1 C (98.7 F)] Pulse: [80-97] Respirations: [20 PER MINUTE-22 PER MINUTE] SpO2: [95 %-98 %] O2 Delivery: Nasal Cannula Intensity Pain Scale (Self Report): 4 (02/10/18 1245) Vitals: 02/08/18 0648 02/09/18 0545 02/10/18 0649 Weight: 69.4 kg (153 lb) 71.2 kg (157 lb) 69.7 kg (153 lb 9.6 oz) Intake/Output Summary: (Last 24 hours) Intake/Output Summary (Last 24 hours) at 02/10/2018 1335 Last data filed at 02/10/2018 1300 Gross per 24 hour Intake 2793 ml Output 1618 ml Net 1175 ml Stool Occurrence: 1 Oral Diet Order: Regular Last Bowel Movement Date: 02/10/18 Lab: Results for orders placed or performed during the hospital encounter of (from the past 24 hour(s)) URINALYSIS DIPSTICK REFLEX TO CULTURE Collection Time: 02/09/18 2:15 PM # # Low-High Color,UA YELLOW Turbidity,UA CLEAR CLEAR-CLEAR Specific [place]-Urine 1.014 1.003 - 1.035 pH,UA 7.0 5.0 - 8.0 Protein,UA NEG NEG-NEG Glucose,UA NEG NEG-NEG Ketones,UA NEG NEG-NEG Bilirubin,UA NEG NEG-NEG Blood,UA NEG NEG-NEG Urobilinogen,UA NORMAL NORM-NORMAL Nitrite,UA NEG NEG-NEG Leukocytes,UA NEG NEG-NEG Urine Ascorbic Acid, UA POS (A) NEG-NEG URINALYSIS MICROSCOPIC REFLEX TO CULTURE Collection Time: 02/09/18 2:15 PM # # Low-High WBCs,UA 2-10 0 - 2 /HPF RBCs,UA 0-2 0 - 3 /HPF Comment,UA Urine submitted for reflex culture if criteria are met:WBC>10, positive nitrite and/or >=1+ leukocyte esterase. If quantity is not sufficient, an addendum will follow. Squamous Epithelial Cells 0-2 0 - 5 CULTURE-RESP,LOWER W/SENSITIVITY Collection Time: 02/09/18 2:30 PM # # Low-High Battery Name LOWER RESP CULTURE Specimen Description SPUTUM Special Requests NONE Direct Gram Stain LESS THAN 10/LPF NEUTROPHILS LESS THAN 10/LPF SQUAMOUS EPITHELIAL CELLS MODERATE MIXED BACTERIA Culture Culture in progress Report Status GRAM STAIN Collection Time: 02/09/18 2:30 PM # # Low-High Battery Name GRAM STAIN Specimen Description SPUTUM Special Requests NONE Gram Stain LESS THAN 10/LPF NEUTROPHILS LESS THAN 10/LPF SQUAMOUS EPITHELIAL CELLS MODERATE MIXED BACTERIA Report Status FINAL 02/09/2018 Physical Exam VS: BP 127/67 | Pulse 80 | Temp 36.3 C (97.4 F) | Ht 182.9 cm (72") | Wt 69.7 kg (153 lb 9.6 oz) | SpO2 98% | BMI 20.83 kg/m Gen: Alert & Conversant, No Acute Distress, sitting up on edge of bed HEENT: Normocephalic, atraumatic, sclera anicteric, conjunctiva not injected Neck: Supple, no elevated JVP Heart: Regular Rate & Rhythm, No Murmur Lungs: Good inspiratory effort , CTAB, right chest tube in place, draining serous fluid well, 3 L o2 Abdomen: Soft, non-tender, non-distended, chest tube site c/d/i, +BS Skin: Warm, dry Ext: Minimal edema noted in b/l lower limbs MS: Moves b/l upper and lower extremities against gravity spontaneously Therapy Notes & Labs Reviewed. PRESS OPERATOR * Beck Ervin - 02/10/2018 12:59 PM AIR PRESS OPERATOR Neurorehabilitation Psychology [phone] Pt was seen for follow-up with with no family or significant others present. Pt was alert, oriented, and open/responsive to inquiry. The utility of testing was discussed and pt agreed to participate. Pt was cooperative and appeared to put forth adequate effort. Speech was soft, and thought processes were connected and logical to content of conversation. Eye contact was within social norms and non-verbal behaviors were within social norms. Mood and affect were congruent and euthymic. Pt reported mood as "good." Pt reported that he has been troubled by his stomach issues and there have been days where he was having difficulty with staying positive. However, he reported that he looks forward to recovery and being discharged from hospital. Supportive and processing therapy was provided. Pt's coping strategies were reinforced and reviewed and I encouraged pt to practice coping skills such as relaxed breathing as needed and to engage in pleasant, relaxing activities as able. Pts progress, utilization of coping skills, and goals for rehab therapies were supported. Will continue to follow and assess cognition, mood, pain management, and coping. Diagnosis: F43.23 Adjustment disorder with depressed and anxious mood Recommendations: Pt may benefit from reminders or cues to utilize coping strategies such as relaxed breathing, watching television, spending time with social support. Beck Gutierrez Psy.D. Neurorehabilitation Psychology Postdoctoral Fellow Pager #: [phone] PRESS OPERATOR * Fco Messina MD - 02/10/2018 12:34 PM AIR PRESS OPERATOR Infectious disease Progress note Admission Date: 02/02/2018 LOS: 8 days Reason for Consult: Invasive aspergillosis Consult type: Opinion with orders Active Hospital Problems Diagnosis Critical illness myopathy Atrial fibrillation with RVR (HCC) Empyema of right pleural space (HCC) Acute on chronic respiratory failure with hypoxia and hypercapnia (HCC) Pulmonary aspergillosis invasive type (HCC) COPD, severe (HCC) Secondary spontaneous pneumothorax Legionella pneumonia (HCC) Loculated pleural effusion Cytomegalovirus (CMV) viremia (HCC) Impaired mobility and activities of daily living Pneumonia S/P ablation of 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 05/04/[address] ablation [address] Dr. Godfrey. CHF (congestive heart failure) ([facility]) CAD (coronary artery disease) 03/18/2012 - Cardiac Catheterization: PTCA and PCI using 3.0 x 20mm Promus to the midRCA. ([facility]). Paroxysmal 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 ([facility]) 03/17/2012 - ECHO: LVEF ~ 25%. LA [...] MR and TR. PAP ~ 40 mmHg. 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 Persistent extensive right lung consolidation compatible with pneumonia.Slight improvement in mild patchy and nodular left lung opacities compatible with resolving pneumonia and scarring. Left pleural effusion has resolved. A follow-up chest CT in 6 months is recommended to assess for stability or improvement of nodular components. Marked emphysema - S/P chest tube x 2 on 01/22/2018, fluid analysis consistent wit empyema - CT chest 01/25/2018: Significant overall improvement in the moderate loculated hydropneumothorax after placement of 2 pleural drains. Persistent extensive right lung consolidation compatible with pneumonia and/or atelectasis. - S/P thoracoscopy and I&D 01/28/2018, cultures negative, mucopurulent fluid drained Legionella pneumonia, also possible aspiration - At OSH started on Zosyn 10/31, escalated to vancomycin, anidulafungin ( unsure what dates added); zosyn switched to meropenem , vanc stopped at some point - negative blood cultures; bronch with MARIALUISA BAL on 11/08 with negative bacterial culture, unsure of fungal culture result -positive legionella urine antigen at CT 11/14: Multifocal right upper lobe consolidation with several air-fluid levels within bullae suggestive of multifocal necrotizing pneumonia. Air-fluid levels may represent infected or hemorrhagic bullae which often requires prolonged antibiotic therapy, similar to treating a pulmonary abscess. - Fungitell 38, Galactomannan 0.052. - [facility] (11/04)- peripheral blood cultures -no growth, Sputum/ endotracheal- mixed bacterial alvaro, few yeast (11/08) BAL/left upper lobe >1, 000 CFU/ML- C. 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 Not detected on first BAL, virus detected on 12/21/17 BAL. Treated. Significant debility P. mirabilispneumonia 01/16/18 DEONTE 01/26 REC: Continue Zosyn, duration unknown at this point, follow repeat cultures Continue Cresemba, likely at least until mid February Monitor labs for toxicity Will follow. Mr. Salas has complex disease requiring complex medical decision making for pneumonia, aspergillosis, therapeutic drug monitoring, resp failure. I reviewed the chart and interviewed and examined the patient and formulated the plan as above.new leukocytosis Discussed with rehab resident History of Present Illness: Darrius Salas is a 62 y.o. male resp status about the same on 3 L of O2 Cough moderate with sputum, cloudy Had loose stool x 1 today has nausea ++, appetite is poor, food tastes bad, nothing tastes good to him No rash still with chest tube Feels a bit better today No rash no abd pain no dysuria labs wbc 15 Creat stable Sputum with 10-25 PMN Abx Zosyn 02/09 Scheduled Meds: acetaminophen (TYLENOL) tablet 1,000 mg 1,000 mg Oral TID albuterol (PROAIR HFA, VENTOLIN HFA, or PROVENTIL HFA) inhaler 2 puff 2 puff Inhalation BID & PRN bacitracin topical ointment Topical BID digoxin (LANOXIN) tablet 125 mcg 125 mcg Oral QDAY docusate (COLACE) capsule 100 mg 100 mg Oral BID enoxaparin (LOVENOX) syringe 40 mg 40 mg Subcutaneous QDAY fluticasone (FLONASE) nasal spray 2 spray 2 spray Each Nostril QDAY guaiFENesin LA (MUCINEX) tablet 600 mg 600 mg Oral BID isavuconazonium sulfate (CRESEMBA) capsule 372 mg 372 mg Oral QDAY(21) lidocaine (LIDODERM) 5 % topical patch 1-2 patch 1-2 patch Topical QDAY magnesium oxide (MAG-OX) tablet 400 mg 400 mg Oral BID metoprolol tartrate (LOPRESSOR) tablet 12.5 mg 12.5 mg Oral BID ondansetron (ZOFRAN) tablet 4 mg 4 mg Oral TID w/ meals pantoprazole DR (PROTONIX) tablet 40 mg 40 mg Oral QDAY(21) piperacillin/tazobactam (ZOSYN) 3.375 g in sodium chloride 0.9% (NS) 100 mL IVPB (MB+) 3.375 g Intravenous Q6H* polyethylene glycol 3350 (MIRALAX) packet 17 g 1 packet Oral BID senna (SENOKOT) tablet 2 tablet 2 tablet Oral QHS sodium chloride PF 0.9% flush 30 mL 30 mL Intravenous FLUSH TID umeclidinium-vilanterol (ANORO ELLIPTA) 62.5-25 mcg/actuation inhaler 1 puff 1 puff Inhalation QDAY vitamin A & D topical ointment Topical QDAY vitamins, multi w/minerals tablet 1 tablet 1 tablet Oral QDAY Continuous Infusions: PRN and Respiratory Meds:alteplase BID PRN, aluminum/magnesium hydroxide Q4H PRN , bisacodyl QDAY PRN, milk of magnesia (CONC) Q4H PRN, ondansetron Q6H PRN, oxyCODONE Q3H PRN Review of Systems: +SOB, nausea, cough. No f/c/ns, FERGUSON, abd pain, myalgias, arthralgias. +weakness. Rest of 14-point ROS negative. Vital Signs: Last Filed in 24 hours Vital Signs: 24 hour Range BP: 127/67 (02/10 0806) Temp: 36.3 C (97.4 F) (02/10 035) Pulse: 80 (02/10 0953) Respirations: 20 PER MINUTE (02/10 0953) SpO2: 98 % (02/10 0953) O2 Delivery: Nasal Cannula (02/11 356) BP: (97-127)/(58-76) Temp: [36.1 C (97 F)-37.1 C (98.7 F)] Pulse: [80-97] Respirations: [20 PER MINUTE-22 PER MINUTE] SpO2: [94 %-98 %] O2 Delivery: Nasal Cannula Physical Exam: General: Alert, cooperative, no distress, chronically ill appearing Head: Normocephalic, without obvious abnormality, atraumatic Throat: Lips, mucosa and tongue normal. No thrush Lungs: Poor air exchange bilaterally R>L Heart: Regular rate and rhythm Abdomen: Soft, mild epigastric ttp. Bowel sounds normal. Extremities: Extremities normal, atraumatic, no cyanosis or edema No change on exam today Lab/Radiology/Other Diagnostic Tests: Full labs and radiology viewed and reports reviewed. Reviewed Microbiology data from past and present. PRESS OPERATOR * Minna Harris RN - 02/10/2018 7:03 AM AIR PRESS OPERATOR Heart Failure Nursing Progress Note Admission Date: 02/02/2018 LOS: 8 days Admission Weight: 75.7 kg (166 lb 12.8 oz) Most recent weights (inpatient): Vitals: 02/08/18 0648 02/09/18 0545 02/10/18 0649 Weight: 69.4 kg (153 lb) 71.2 kg (157 lb) 69.7 kg (153 lb 9.6 oz) Weight change from previous day:-1.5kg Fluid restriction ordered: NA Intake/Output Summary: (Last 24 hours) Intake/Output Summary (Last 24 hours) at 02/10/2018 0703 Last data filed at 02/10/2018 0400 Gross per 24 hour Intake 2673 ml Output 1518 ml Net 1155 ml Is patient incontinent No Anticipated discharge date: 02/21/2017 Discharge goals: Gain independence w/ADLs Daily Assessment of Patient Stated Goals: Short Term Goal Identified by patient (Short Term=during hospitalization): Tolerate getting OOB PRESS OPERATOR * Brianda Choudhury RN - 02/09/2018 2:59 PM AIR PRESS OPERATOR Blood started per PICC line. Pt's vital signs stable. Pt did walk to the bathroom with min assist plus one to take the oxygen tank. Pt on 3 L per NC. Pt c/o upset stomach. PRESS OPERATOR * Brianda Choudhury RN - 02/09/2018 2:56 PM AIR PRESS OPERATOR Heart Failure Nursing Progress Note Admission Date: 02/02/2018 LOS: 7 days Admission Weight: 75.7 kg (166 lb 12.8 oz) Most recent weights (inpatient): Vitals: 02/07/18 0500 02/08/18 0648 02/09/18 0545 Weight: 70.4 kg (155 lb 1.6 oz) 69.4 kg (153 lb) 71.2 kg (157 lb) Weight change from previous day:+1.8 kg Fluid restriction ordered: no Intake/Output Summary: (Last 24 hours) Intake/Output Summary (Last 24 hours) at 02/09/2018 1456 Last data filed at 02/09/2018 0920 Gross per 24 hour Intake 880 ml Output 270 ml Net 610 ml Is patient incontinent no Anticipated discharge date: 02/21/17 Discharge goals: mod I Daily Assessment of Patient Stated Goals: Short Term Goal Identified by patient (Short Term=during hospitalization): Tolerate up in the chair most the day PRESS OPERATOR * Fco Messina MD - 02/09/2018 12:48 PM AIR PRESS OPERATOR Infectious disease Progress note Admission Date: 02/02/2018 LOS: 7 days Reason for Consult: Invasive aspergillosis Consult type: Opinion with orders Active Hospital Problems Diagnosis Critical illness myopathy Atrial fibrillation with RVR (HCC) Empyema of right pleural space (HCC) Acute on chronic respiratory failure with hypoxia and hypercapnia (HCC) Pulmonary aspergillosis invasive type (HCC) COPD, severe (HCC) Secondary spontaneous pneumothorax Legionella pneumonia (HCC) Loculated pleural effusion Cytomegalovirus (CMV) viremia ([facility]) Impaired mobility and activities of daily living Pneumonia S/P ablation of 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 05/04/[address] A fib ablation by Dr. Godfrey. CHF (congestive heart failure) (HCC) CAD (coronary artery disease) 03/18/2012 - Cardiac Catheterization: PTCA and PCI using 3.0 x 20mm Promus to the midRCA. ([facility]). Paroxysmal 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 (HCC) 03/17/2012 - ECHO: LVEF ~ 25%. LA [...] MR and TR. PAP ~ 40 mmHg. 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 Persistent extensive right lung consolidation compatible with pneumonia.Slight improvement in mild patchy and nodular left lung opacities compatible with resolving pneumonia and scarring. Left pleural effusion has resolved. A follow-up chest CT in 6 months is recommended to assess for stability or improvement of nodular components. Marked emphysema - S/P chest tube x 2 on 01/22/2018, fluid analysis consistent wit empyema - CT chest 01/25/2018: Significant overall improvement in the moderate loculated hydropneumothorax after placement of 2 pleural drains. Persistent extensive right lung consolidation compatible with pneumonia and/or atelectasis. - S/P thoracoscopy and I&D 01/28/2018, cultures negative, mucopurulent fluid drained Legionella pneumonia, also possible aspiration - At OSH started on Zosyn 10/31, escalated to vancomycin, anidulafungin ( unsure what dates added); zosyn switched to meropenem , vanc stopped at some point - negative blood cultures; bronch with MARIALUISA BAL on 11/08 with negative bacterial culture, unsure of fungal culture result -positive legionella urine antigen at CT 11/14: Multifocal right upper lobe consolidation with several air-fluid levels within bullae suggestive of multifocal necrotizing pneumonia. Air-fluid levels may represent infected or hemorrhagic bullae which often requires prolonged antibiotic therapy, similar to treating a pulmonary abscess. - Fungitell 38, Galactomannan 0.052. - [facility] (11/04)- peripheral blood cultures -no growth, Sputum/ endotracheal- mixed bacterial alvaro, few yeast (11/08) BAL/left upper lobe >1, 000 CFU/ML- C. 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 Not detected on first BAL, virus detected on 12/21/17 BAL. Treated. Significant debility P. mirabilispneumonia 01/16/18 DEONTE 01/26 REC: Patient with fluctuating leukocytosis and tenuous resp status Discussed with rehab resident Would restart Zosyn, duration unknown at this point, follow repeat cultures Continue Cresemba, likely at least until mid February Monitor labs for toxicity Will follow. Mr. Salas has complex disease requiring complex medical decision making for pneumonia, aspergillosis, therapeutic drug monitoring, resp failure. I reviewed the chart and interviewed and examined the patient and formulated the plan as above.new leukocytosis Discussed with rehab resident History of Present Illness: Darrius Salas is a 62 y.o. male resp status about the same Cough moderate with sputum, cloudy No diarrhea has nausea ++, appetite is poor, food tastes bad, nothing tastes good to him No rash still with chest tube 70 cc output No rash no abd pain no dysuria labs wbc 15 Creat stable Abx Zosyn 02/09 Scheduled Meds: acetaminophen (TYLENOL) tablet 1,000 mg 1,000 mg Oral TID albuterol (PROAIR HFA, VENTOLIN HFA, or PROVENTIL HFA) inhaler 2 puff 2 puff Inhalation BID & PRN bacitracin topical ointment Topical BID digoxin (LANOXIN) tablet 125 mcg 125 mcg Oral QDAY docusate (COLACE) capsule 100 mg 100 mg Oral BID enoxaparin (LOVENOX) syringe 40 mg 40 mg Subcutaneous QDAY fluticasone (FLONASE) nasal spray 2 spray 2 spray Each Nostril QDAY guaiFENesin LA (MUCINEX) tablet 600 mg 600 mg Oral BID isavuconazonium sulfate (CRESEMBA) capsule 372 mg 372 mg Oral QDAY(21) lidocaine (LIDODERM) 5 % topical patch 1-2 patch 1-2 patch Topical QDAY magnesium oxide (MAG-OX) tablet 400 mg 400 mg Oral BID metoprolol tartrate (LOPRESSOR) tablet 12.5 mg 12.5 mg Oral BID ondansetron (ZOFRAN) tablet 4 mg 4 mg Oral TID w/ meals pantoprazole DR (PROTONIX) tablet 40 mg 40 mg Oral QDAY(21) piperacillin/tazobactam (ZOSYN) 3.375 g in sodium chloride 0.9% (NS) 100 mL IVPB (MB+) 3.375 g Intravenous Q6H* polyethylene glycol 3350 (MIRALAX) packet 17 g 1 packet Oral BID potassium chloride SR (K-DUR) tablet 40 mEq 40 mEq Oral ONCE senna (SENOKOT) tablet 2 tablet 2 tablet Oral QHS sodium chloride PF 0.9% flush 30 mL 30 mL Intravenous FLUSH TID umeclidinium-vilanterol (ANORO ELLIPTA) 62.5-25 mcg/actuation inhaler 1 puff 1 puff Inhalation QDAY vitamin A & D topical ointment Topical QDAY vitamins, multi w/minerals tablet 1 tablet 1 tablet Oral QDAY Continuous Infusions: PRN and Respiratory Meds:alteplase BID PRN, aluminum/magnesium hydroxide Q4H PRN , bisacodyl QDAY PRN, milk of magnesia (CONC) Q4H PRN, ondansetron Q6H PRN, oxyCODONE Q3H PRN Review of Systems: +SOB, nausea, cough. No f/c/ns, FERGUSON, abd pain, myalgias, arthralgias. +weakness. Rest of 14-point ROS negative. Vital Signs: Last Filed in 24 hours Vital Signs: 24 hour Range BP: 108/74 (02/09 0920) Temp: 36.4 C (97.5 F) (02/09 05) Pulse: 93 (02/09 1036) Respirations: 16 PER MINUTE (02/09 543) SpO2: 98 % (02/09 543) O2 Delivery: Nasal Cannula (02/09 543) BP: (97-127)/(63-102) Temp: [36.4 C (97.5 F)-36.8 C (98.3 F)] Pulse: [85-109] Respirations: [16 PER MINUTE-18 PER MINUTE] SpO2: [95 %-98 %] O2 Delivery: Nasal Cannula Physical Exam: General: Alert, cooperative, no distress, chronically ill appearing Head: Normocephalic, without obvious abnormality, atraumatic Throat: Lips, mucosa and tongue normal. No thrush Lungs: Poor air exchange bilaterally R>L Heart: Regular rate and rhythm Abdomen: Soft, mild epigastric ttp. Bowel sounds normal. Extremities: Extremities normal, atraumatic, no cyanosis or edema Lab/Radiology/Other Diagnostic Tests: Full labs and radiology viewed and reports reviewed. Reviewed Microbiology data from past and present. PRESS OPERATOR * Estephanie Tapia MD - 02/09/2018 6:48 AM AIR PRESS OPERATOR ATTESTATION I personally observed the resident performing the E/M, discussed case with resident, and concur with resident documentation of history, physical assessment and treatment plan unless otherwise noted. Labs and vitals reviewed. O2 requirements stable. Hgb <7, will transfuse PRBCs Leukocytosis, ID re-consulted; re-start anti-biotics (zosyn) Recheck UA, BCx, SputumCx Replace potassium DEONTE resolved with IVF, holding Lasix Re-evaluate volume status tomorrow Total time spent on inpatient clinical care 35 minutes. Estimated patient counseling and coordination of care time is 20 minutes including leading a multi -disciplinary discussion of care (team conference/ huddle) with SW, CM, therapy , nursing, neuropsychology, pharmacy, and dietary (approximately 10 minutes) and counseling patient (approximately 10 min). 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 Darrius Salas is a 62 yo M with PMH of COPD on 2-3L QHS, tobacco use, Afib on Xarelto, CAD s/p PCI (2012) who was originally admitted to rehab with multi- organism PNA after multiple intubations and PEA arrest. He was re-admitted to [facility] for loculated hydropneumothorax and is now s/p chest tube placement and decortication. Patient presents to IRF with critical illness myopathy, generalized weakness, decreased endurance, and impaired mobility and ADLs warranting PT/OT therapies. Rehabilitation Plan Rehabilitation: Patient will continue with comprehensive therapies including physical therapy, occupational therapy, speech & language pathology, specialized rehab nursing, neuropsychology and physiatry oversight. Goals: Mod I to SBA Tentative discharge date: 02/21/18 Recommended therapy after discharge: Home health with PT/OT Recommended equipment: Tub transfer bench, 4 wheel RW Daily Functional Update: Transfers Device Sit to Stand Transfer: Assistive Device: 4-Wheeled Walker (02/07/2018 1:00 PM) No Data Recorded Gait Device Assist Required Distance Gait: Assistive Device: 4-Wheeled Walker (02/07/2018 1:00 PM) No Data Recorded Gait Distance: 20 feet (02/07/2018 1:00 PM) Standing Balance Static Dynamic No Data Recorded No Data Recorded Toileting Assist Required Equipment Toilet Transfer Toileting Assist: Stand By Assist (02/05/2018 1:30 PM) Toileting Equipment: Commode - 3 in 1 padded (02/05/2018 1:30 PM) No Data Recorded Dressing Lower Body LE Dressing Assist: Minimal Assist (02/05/2018 8:30 AM) Critical Illness Myopathy Acute on chronic hypoxic respiratory failure Legionella pneumonia (PNA), invasive necrotizing aspergillosis PNA, HSV & CMV PNA, Proteus Mirabilis PNA Decreased pulmonary reserve Generalized weakness Decreased endurance Impaired mobility and ADLs - Baseline O2 2-3 L QHS, currently tolerating 2L NC - s/p x3 intubation/extubations - s/p PEA arrest (extubated 11/24) - s/p treatment with vancomyin, linezolid, zosyn, valacyclovir, micafungin , valcyte - Stopped zosyn 02/04, IM signed off >Consult ID for continuation of care, WBC up today (blood culture, UA, sputum culture, restart zosyn) >Continue antibiotics Cresemba 372mg QD; per ID note >Continue aggressive pulmonary hygiene with Aerobika and IS >Consult PT/OT Right sided pleural effusion and empyema Loculated hydropneumothorax s/p chest tube x 2 01/22, positive for empyema S/p decortication of pleural effusion 01/[address] Xiao COPD, emphysema Acute on chronic hypoxic respiratory failure - on 2-3L QHS at baseline, currently requiring 3L > Continue maintenance of mini atrium, empty PRN, no showering while chest tubes in place, call CTS CUSTOMER SALES SERVICE MANAGER/PA if issues > Continue albuterol nebs BID and PRN >Continue S[employer]IOR [employer] SOFTWARE ENGINEER Symbicort BID, flonase BID, and anoro ellipta 1 puff QD > Continue guaifenesin LA 600mg BID >Patient will need exercise ox and overnight ox prior to discharge if still requiring o2 > f/u Dr. 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 tube > Continue metoprolol 12.5mg BID > Continue lasix at 60mg BID, held 02/07 due to low BP, s/p IVF 500cc, hold another day and re-evaluate tomorrow >On digoxin 125mcg daily (level therapeutic), 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 Vasotect, Lipitor >Continue daily weights, CTM Adjustment disorder with depressed and anxious mood: neuropsych following Nausea/vomiting: zofran scheduled with meals, EKG ok Risk of opioid induced constipation: continue docusate 100mg BID, senna 2 tab QHS Macrocytic anemia, stable, CTM with CBC, transfusion 1U pRBCs 02/09 GERD: PPI Hypomagnesia: continue magnesium replacement Hypokalemia: continue K replacement Malnutrition: continue boost supplements, vit c, vit D, thiamine Pain Management: oxycodone 5mg Q3H PRN and tylenol 1G TID, lidoderm patches Pressure injury left ear stage 3, present on admission: Foam offloading device, assess fit of tubing and adjust accordingly to prevent tension on ears. Apply Bacitracin ointment to wound BID. Pressure injury coccyx/buttocks, stage 1, present on admission: - Apply [employer] barrier cream BID and PRN to protect skin from moisture related to urine/stool. - Avoid briefs if possible and use only one disposable pad at at time underneath pt to prevent heat and moisture trapping against skin. - Implement q2 hr turning schedule using foam wedge for support. Encourage and assist pt to shift weight on hips q15-30 minutes when out of bed to chair. - HOB less than or equal to 30 degrees, unless contraindicated, to prevent shearing at coccyx/sacrum. Assess Stage 1 pressure injuries for intact skin and blanchable redness. This would indicate damage has resolved and wound can be completed. Bowel: continent of bowel Bladder: continent of bladder, BVIs x3 until <125ml and ISC for >300ml Nutrition: Current diet: regular with boost plus TID Mental Health: consult neuropsychology to provide support / counseling DVT Prophylaxis: Lovenox} Nela Santoro D.O.,M.B.A. Physical Medicine and Rehabilitation, PGY-2 Pager [phone] Subjective Darrius Salas is a 62 y.o. seen in his room this morning. No acute events overnight. Patient reports trouble sleeping overnight. Denies SOB or pain. However, on re-visiting room to review lab work, patient significantly SOB and nauseas while up in therapy. ID to see patient today. Restart zosyn. Culture sputum, blood, urine. Objective Vital Signs: Last Filed Vital Signs: 24 Hour Range BP: 123/74 (02/09 543) Temp: 36.4 C (97.5 F) (02/09 543) Pulse: 85 (02/09 543) Respirations: 16 PER MINUTE (02/09 543) SpO2: 98 % (02/09 543) O2 Delivery: Nasal Cannula (02/09 543) BP: (103-127)/(63-77) Temp: [36.4 C (97.5 F)-36.8 C (98.3 F)] Pulse: [85-109] Respirations: [16 PER MINUTE-18 PER MINUTE] SpO2: [95 %-98 %] O2 Delivery: Nasal Cannula Intensity Pain Scale (Self Report): 3 (02/08/18 2030) Vitals: 02/07/18 0500 02/08/18 0648 02/09/18 0545 Weight: 70.4 kg (155 lb 1.6 oz) 69.4 kg (153 lb) 71.2 kg (157 lb) Intake/Output Summary: (Last 24 hours) Intake/Output Summary (Last 24 hours) at 02/09/2018 0648 Last data filed at 02/09/2018 0600 Gross per 24 hour Intake 1070 ml Output 470 ml Net 600 ml Stool Occurrence: 1 Oral Diet Order: Regular Last Bowel Movement Date: 02/08/18 Lab: Results for orders placed or performed during the hospital encounter of (from the past 24 hour(s)) BASIC METABOLIC PANEL Collection Time: 02/08/18 11:21 AM # # Low-High Sodium 133 (L) 137 - 147 MMOL/L Potassium 3.8 3.5 - 5.1 MMOL/L Chloride 95 (L) 98 - 110 MMOL/L CO2 34 (H) 21 - 30 MMOL/L Anion Gap 4 3 - 12 Glucose 87 70 - 100 MG/DL Blood Urea Nitrogen 10 7 - 25 MG/DL Creatinine 1.00 0.4 - 1.24 MG/DL Calcium 8.4 (L) 8.5 - 10.6 MG/DL eGFR Non >60 >60 mL/min eGFR >60 >60 mL/min Physical Exam VS: BP 123/74 (BP Source: Arm, Left Upper) | Pulse 85 | Temp 36.4 C (97.5 F) | Ht 182.9 cm (72") | Wt 71.2 kg (157 lb) | SpO2 98% | BMI 21.29 kg/m Gen: Alert & Conversant, No Acute Distress, laying in bed HEENT: Normocephalic, atraumatic, sclera anicteric, conjunctiva not injected Neck: Supple, no elevated JVP Heart: Regular Rate & Rhythm, No Murmur Lungs: Good inspiratory effort , CTAB, right chest tube in place, draining serous fluid well, 3 L o2 Abdomen: Soft, non-tender, non-distended, chest tube site c/d/i, +BS Skin: Warm, dry Ext: Minimal edema noted in b/l lower limbs MS: Moves b/l upper and lower extremities against gravity spontaneously Therapy Notes & Labs Reviewed. PRESS OPERATOR * Kacie Evans - 02/09/2018 6:12 AM AIR PRESS OPERATOR Heart Failure Nursing Progress Note Admission Date: 02/02/2018 LOS: 7 days Admission Weight: 75.7 kg (166 lb 12.8 oz) Most recent weights (inpatient): Vitals: 02/07/18 0500 02/08/18 0648 02/09/18 0545 Weight: 70.4 kg (155 lb 1.6 oz) 69.4 kg (153 lb) 71.2 kg (157 lb) Weight change from previous day: +1.8kg Fluid restriction ordered: none Intake/Output Summary: (Last 24 hours) Intake/Output Summary (Last 24 hours) at 02/09/2018 0612 Last data filed at 02/09/2018 0600 Gross per 24 hour Intake 1250 ml Output 470 ml Net 780 ml Is patient incontinent No Anticipated discharge date: TBD Discharge goals: Gain independence Daily Assessment of Patient Stated Goals: Short Term Goal Identified by patient (Short Term=during hospitalization): To feel better PRESS OPERATOR * Zelda Almanza RN - 02/08/2018 6:38 PM AIR PRESS OPERATOR Heart Failure Nursing Progress Note Admission Date: 02/02/2018 LOS: 6 days Admission Weight: 75.7 kg (166 lb 12.8 oz) Most recent weights (inpatient): Vitals: 02/06/18 0555 02/07/18 0500 02/08/18 0648 Weight: 70.6 kg (155 lb 9.6 oz) 70.4 kg (155 lb 1.6 oz) 69.4 kg (153 lb) Weight change from previous day: -1kg Fluid restriction ordered: no Intake/Output Summary: (Last 24 hours) Intake/Output Summary (Last 24 hours) at 02/08/2018 1839 Last data filed at 02/08/2018 1800 Gross per 24 hour Intake 970 ml Output 905 ml Net 65 ml Is patient incontinent No Anticipated discharge date: TBD Discharge goals: More independance Daily Assessment of Patient Stated Goals: Short Term Goal Identified by patient (Short Term=during hospitalization): Feel stronger PRESS OPERATOR * Kacie Evans - 02/08/2018 6:49 AM AIR PRESS OPERATOR Heart Failure Nursing Progress Note Admission Date: 02/02/2018 LOS: 6 days Admission Weight: 75.7 kg (166 lb 12.8 oz) Most recent weights (inpatient): Vitals: 02/06/18 0555 02/07/18 0500 02/08/18 0648 Weight: 70.6 kg (155 lb 9.6 oz) 70.4 kg (155 lb 1.6 oz) 69.4 kg (153 lb) Weight change from previous day: - 1kg Fluid restriction ordered: no Intake/Output Summary: (Last 24 hours) Intake/Output Summary (Last 24 hours) at 02/08/2018 0649 Last data filed at 02/08/2018 0648 Gross per 24 hour Intake 900 ml Output 1195 ml Net -295 ml Is patient incontinent No Anticipated discharge date: TBD Discharge goals: To be more independent Daily Assessment of Patient Stated Goals: Short Term Goal Identified by patient (Short Term=during hospitalization): To feel stronger PRESS OPERATOR * Nela Santoro MD - 02/08/2018 6:34 AM AIR PRESS OPERATOR Physical Medicine & Rehabilitation Progress Note Today's Date: 02/08/2018 Admission Date: 02/02/2018 LOS: 6 days Insurance: Medicare Principal Problem: Critical illness myopathy Active Problems: CHF (congestive heart failure) (HCC) CAD (coronary artery disease) Paroxysmal 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 (HCC) [employer]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 Darrius Salas is a 62 yo M with PMH of COPD on 2-3L QHS, tobacco use, Afib on Xarelto, CAD s/p PCI (2012) who was originally admitted to rehab with multi- organism PNA after multiple intubations and PEA arrest. He was re-admitted to [facility] for loculated hydropneumothorax and is now s/p chest tube placement and decortication. Patient presents to IRF with critical illness myopathy, generalized weakness, decreased endurance, and impaired mobility and ADLs warranting PT/OT therapies. Rehabilitation Plan Rehabilitation: Patient will continue with comprehensive therapies including physical therapy, occupational therapy, speech & language pathology, specialized rehab nursing, neuropsychology and physiatry oversight. Goals: Mod I to SBA Tentative discharge date: 02/19/18 Recommended therapy after discharge: TBD Recommended equipment: TBD Daily Functional Update: Transfers Device Sit to Stand Transfer: Assistive Device: 4-Wheeled Walker (02/07/2018 1:00 PM) No Data Recorded Gait Device Assist Required Distance Gait: Assistive Device: 4-Wheeled Walker (02/07/2018 1:00 PM) No Data Recorded Gait Distance: 20 feet (02/07/2018 1:00 PM) Standing Balance Static Dynamic No Data Recorded No Data Recorded Toileting Assist Required Equipment Toilet Transfer Toileting Assist: Stand By Assist (02/05/2018 1:30 PM) Toileting Equipment: Commode - 3 in 1 padded (02/05/2018 1:30 PM) No Data Recorded Dressing Lower Body LE Dressing Assist: Minimal Assist (02/05/2018 8:30 AM) Critical Illness Myopathy Acute on chronic hypoxic respiratory failure Legionella pneumonia (PNA), invasive necrotizing aspergillosis PNA, HSV & CMV PNA, Proteus Mirabilis PNA Decreased pulmonary reserve Generalized weakness Decreased endurance Impaired mobility and ADLs - Baseline O2 2-3 L QHS, currently tolerating 2L NC - s/p x3 intubation/extubations - s/p PEA arrest (extubated 11/24) - s/p treatment with vancomyin, linezolid, zosyn, valacyclovir, micafungin , valcyte - Stopped zosyn 02/04, IM signed off >Consult ID for continuation of care >Continue antibiotics Cresemba 372mg QD; per ID note >Continue aggressive pulmonary hygiene with Aerobika and IS >Consult PT/OT Right sided pleural effusion and empyema Loculated hydropneumothorax s/p chest tube x 2 01/22, positive for empyema S/p decortication of pleural effusion 01/[address] Xiao COPD, emphysema Acute on chronic hypoxic respiratory failure - on 2-3L QHS at baseline, currently requiring 3L > Continue maintenance of mini atrium, empty PRN, no showering while chest tubes in place, call CTS CUSTOMER SALES SERVICE MANAGER/PA if issues > Continue albuterol nebs BID and PRN >Continue SENIOR NET SOFTWARE ENGINEER Symbicort BID, flonase BID, and anoro ellipta 1 puff QD > Continue guaifenesin LA 600mg BID >Patient will need exercise ox and overnight ox prior to discharge if still requiring o2 > f/u Dr. 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 tube > Continue metoprolol 12.5mg BID > Continue lasix at 60mg BID, held 02/07 due to low BP, s/p IVF 500cc, hold another day and re-evaluate tomorrow >On digoxin 125mcg daily (level therapeutic), 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 Vasotect, Lipitor >Continue daily weights, CTM Adjustment disorder with depressed and anxious mood: neuropsych following Nausea/vomiting: zofran scheduled with meals, EKG ok DEONTE: continue to encourage oral intake, monitor Cr Risk of opioid induced constipation: continue docusate 100mg BID, senna 2 tab QHS Macrocytic anemia, stable, CTM with CBC GERD: PPI Hypomagnesia: continue magnesium replacement Malnutrition: continue boost supplements, vit c, vit D, thiamine Pain Management: oxycodone 5mg Q3H PRN and tylenol 1G TID, lidoderm patches Pressure injury left ear stage 3, present on admission: Foam offloading device, assess fit of tubing and adjust accordingly to prevent tension on ears. Apply Bacitracin ointment to wound BID. Pressure injury coccyx/buttocks, stage 1, present on admission: - Apply Criticaid barrier cream BID and PRN to protect skin from moisture related to urine/stool. - Avoid briefs if possible and use only one disposable pad at at time underneath pt to prevent heat and moisture trapping against skin. - Implement q2 hr turning schedule using foam wedge for support. Encourage and assist pt to shift weight on hips q15-30 minutes when out of bed to chair. - HOB less than or equal to 30 degrees, unless contraindicated, to prevent shearing at coccyx/sacrum. Assess Stage 1 pressure injuries for intact skin and blanchable redness. This would indicate damage has resolved and wound can be completed. Bowel: continent of bowel Bladder: continent of bladder, BVIs x3 until <125ml and ISC for >300ml Nutrition: Current diet: regular with boost plus TID Mental Health: consult neuropsychology to provide support / counseling DVT Prophylaxis: Lovenox} Nela Santoro D.O.,M.B.A. Physical Medicine and Rehabilitation, PGY-2 Pager [phone] Subjective Darrius Winston Salas is a 62 y.o. seen in his room this morning. Held lasix last night and completed 500 cc bolus. BP improved this morning. Denies SOB. Will continue to hold lasix one more day and re-evaluate tomorrow. Improved nausea with d/c of inhaler. Appetite not improved yet. Monitor for improvement. will come by with home food. Objective Vital Signs: Last Filed Vital Signs: 24 Hour Range BP: 122/74 (02/08 549) Temp: 36.6 C (97.8 F) (02/08 549) Pulse: 92 (02/08 549) Respirations: 18 PER MINUTE (02/08 549) SpO2: 98 % (02/08 549) O2 Delivery: Nasal Cannula (02/08 549) BP: (85-132)/(64-80) Temp: [36.3 C (97.4 F)-36.6 C (97.8 F)] Pulse: [90-98] Respirations: [16 PER MINUTE-18 PER MINUTE] SpO2: [96 %-98 %] O2 Delivery: Nasal Cannula Intensity Pain Scale (Self Report): 4 (02/07/18 2110) Vitals: 02/05/18 0615 02/06/18 0555 02/07/18 0500 Weight: 75.9 kg (167 lb 5.3 oz) 70.6 kg (155 lb 9.6 oz) 70.4 kg (155 lb 1.6 oz) Intake/Output Summary: (Last 24 hours) Intake/Output Summary (Last 24 hours) at 02/08/2018 0634 Last data filed at 02/08/2018 0600 Gross per 24 hour Intake 720 ml Output 1195 ml Net -475 ml Stool Occurrence: 1 Oral Diet Order: Regular Last Bowel Movement Date: 02/05/18 Lab: No results found for this visit on 02/02/18 (from the past 24 hour(s)). Physical Exam VS: BP 122/74 (BP Source: Arm, Left Upper) | Pulse 92 | Temp 36.6 C (97.8 F) | Ht 182.9 cm (72") | Wt 70.4 kg (155 lb 1.6 oz) | SpO2 98% | BMI 21.04 kg/m Gen: Alert & Conversant, No Acute Distress, laying in bed HEENT: Normocephalic, atraumatic, sclera anicteric, conjunctiva not injected Neck: Supple, no elevated JVP Heart: Regular Rate & Rhythm, No Murmur Lungs: Good inspiratory effort , CTAB, right chest tube in place, draining well , 3 L o2 Abdomen: Soft, non-tender, non-distended, chest tube site c/d/i, +BS Skin: Warm, dry Ext: Minimal edema noted in b/l lower limbs MS: Moves b/l upper and lower extremities against gravity spontaneously Therapy Notes & Labs Reviewed. PRESS OPERATOR Associated attestation - Estephanie Tapia MD - 02/08/2018 10:40 AM AIR PRESS OPERATOR ATTESTATION I personally performed the gaytan portions of the E/M visit, discussed case with resident and concur with resident documentation of history, physical exam, assessment, and treatment plan unless otherwise noted. Patient is much happier now that his nebulizers do not smell/ taste as bad since adjustments to his regimen. This has helped his nausea. He is hopeful for a return in his appetite with some [place] food his will be bringing later. He reports stable respiratory status. -Exam: resting comfortably in bed, O2 3L via nasal cannula, breath sounds symmetric, chest tube site stable, no LE edema at present. -Vitals reviewed and stable. BP improved with IVF yesterday. Repeat BMP from today pending - will follow-up -Encourage PO intake -Continue to hold Lasix given DEONTE, follow-up BMP today for creatinine and potassium -Patient remains medically and functionally stable for continued rehabilitation participation. Staff name: Estephanie Tapia MD Date: 02/08/2018 * Kaitlin Resendiz - 02/07/2018 7:32 PM AIR PRESS OPERATOR Facility Environmental Technician Note: Admit Date: 02/02/2018 Patient states he is feeling sick tonight. He had wanted to come to the [facility] service. We talked about fred and the importance of resting when he felt ill. He is invited to next sundays service and was glad to see the hydraulic blocker tonight. Kimberley brought him a present and we chatted briefly about his gratefulness to know the meaning of [place]. Patient was smiling when I left the room. Date/Time: User: Pager: 02/07/2018 7:32 PM Kaitlin Resendiz PCU 2 PCU PRESS OPERATOR * Reina Saxena - 02/07/2018 5:15 PM AIR PRESS OPERATOR Heart Failure Nursing Progress Note Admission Date: 02/02/2018 LOS: 5 days Admission Weight: 75.7 kg (166 lb 12.8 oz) Most recent weights (inpatient): Vitals: 02/05/18 0615 02/06/18 0555 02/07/18 0500 Weight: 75.9 kg (167 lb 5.3 oz) 70.6 kg (155 lb 9.6 oz) 70.4 kg (155 lb 1.6 oz) Weight change from previous day:-0.2kg Fluid restriction ordered: no Intake/Output Summary: (Last 24 hours) Intake/Output Summary (Last 24 hours) at 02/07/2018 1715 Last data filed at 02/07/2018 1500 Gross per 24 hour Intake 1217 ml Output 1635 ml Net -418 ml Is patient incontinent No Anticipated discharge date: TBD Discharge goals: be more independent Daily Assessment of Patient Stated Goals: Short Term Goal Identified by patient (Short Term=during hospitalization): Get stronger PRESS OPERATOR * Debbie Seo RD - 02/07/2018 10:40 AM AIR PRESS OPERATOR CLINICAL NUTRITION Clinical Nutrition Follow-Up Summary NAME:Darrius Salas :1955 AGE: 62 y.o. ADMISSION DATE: 02/02/2018 DAYS ADMITTED: LOS: 5 days Nutrition Assessment of Patient: Malnutrition Assessment: Does not meet criteria Current Oral Intake: Inadequate Estimated Calorie Needs: 8664-4451(25-30kcal/kg of 74kg ) Estimated Protein Needs: 89-104(1.2-1.4g/kg of 74kg) Oral Diet Order: Regular Oral Supplement: Boost Plus, BID Comments: Pt readmitted to rehab 02/02 following acute admit for loculated hydropneumothorax s/p chest tube and decortication 01/28. PMH of COPD, HTN, HLD , CAF, CHF and afib. Pt has had difficulties with nausea, poor appetite, and altered taste which have impacted his oral intake. Today, pt states he has started to eat better lately, but he then developed acute nausea this am. Pt mostly complains of the large number of pills he takes each morning, including several vitamins. He also states one of his inhalers tastes like rotten eggs and often makes him feel sick to his stomach for extended periods of time. Pt is having difficulties balancing the therapy schedule with his RT meds and meds given in am which make him feel sick. He's worried these difficulties are delaying his discharge plans. Recommendation: Continue to encourage po intake on Regular diet. Offer protein sources with all meals. Per discussion with Dr. Santoro, REC discontinue the individual Vitamin C, Zinc, thiamine, and Vitamin D, and continue the daily multivitamin +minerals. Vit C: pt received 11 day course on acute side, plus 4 additional days on Rehab. Thiamine: the MV+minerals is adequate to provide the Daily Recommended Intake for this vitamin. Vitamin D: the MV+minerals provides the prescribed 400 IU of Vitamin D. Zinc: is added to aid in wound healing, but benefits do not currently outweigh the side-effects with pt's nausea. Intervention / Plan: RD spoke with primary team re: vitamins to consolidate COntinue to encourage po intake at meals Monitor weight trends with current bedscale/fluid status Nutrition Diagnosis: Inadequate oral intake Etiology: nausea, altered taste Signs & Symptoms: pt report of meds affecting his intake. Goals: Patient to consume >75% of meals Time Frame: Within 72 Hours Debbie Seo MS, RD, [facility] *[id number] PRESS OPERATOR * Estephanie Tapia MD - 02/07/2018 10:07 AM AIR PRESS OPERATOR ATTESTATION I personally observed the resident performing the E/M, discussed case with resident, and concur with resident documentation of history, physical assessment and treatment plan unless otherwise noted. Labs and vitals reviewed. Hypotensive today with new DEONTE. Will give 500 mL NS bolus (EF 70%) and HOLD Lasix for now. Re-eval volume status in the a.m. Encourage PO intake. Replace K orally. Changing inhalers with pulmonology assistance to help with nausea from acetylcysteine. O2 needs and chest tube output stable. 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 Darrius Salas is a 62 yo M with PMH of COPD on 2-3L QHS, tobacco use, Afib on Xarelto, CAD s/p PCI (2012) who was originally admitted to rehab with multi- organism PNA after multiple intubations and PEA arrest. He was re-admitted to [facility] for loculated hydropneumothorax and is now s/p chest tube placement and decortication. Patient presents to IRF with critical illness myopathy, generalized weakness, decreased endurance, and impaired mobility and ADLs warranting PT/OT therapies. Rehabilitation Plan Rehabilitation: Patient will continue with comprehensive therapies including physical therapy, occupational therapy, speech & language pathology, specialized rehab nursing, neuropsychology and physiatry oversight. Goals: Mod I to SBA Tentative discharge date: 02/19/18 Recommended therapy after discharge: TBD Recommended equipment: TBD Daily Functional Update: Transfers Device Sit to Stand Transfer: Assistive Device: 4-Wheeled Walker (02/06/2018 7:00 PM) No Data Recorded Gait Device Assist Required Distance Gait: Assistive Device: 4-Wheeled Walker (02/06/2018 7:00 PM) No Data Recorded Gait Distance: 100 feet (+20) (02/06/2018 7:00 PM) Standing Balance Static Dynamic No Data Recorded No Data Recorded Toileting Assist Required Equipment Toilet Transfer Toileting Assist: Stand By Assist (02/05/2018 1:30 PM) Toileting Equipment: Commode - 3 in 1 padded (02/05/2018 1:30 PM) No Data Recorded Dressing Lower Body LE Dressing Assist: Minimal Assist (02/05/2018 8:30 AM) Critical Illness Myopathy Acute on chronic hypoxic respiratory failure Legionella pneumonia (PNA), invasive necrotizing aspergillosis PNA, HSV & CMV PNA, Proteus Mirabilis PNA Decreased pulmonary reserve Generalized weakness Decreased endurance Impaired mobility and ADLs - Baseline O2 2-3 L QHS, currently tolerating 2L NC - s/p x3 intubation/extubations - s/p PEA arrest (extubated 11/24) - s/p treatment with vancomyin, linezolid, zosyn, valacyclovir, micafungin , valcyte - Stopped zosyn 02/04, IM signed off >Consult ID for continuation of care >Continue antibiotics Cresemba 372mg QD; per ID note >Continue aggressive pulmonary hygiene with Aerobika and IS >Consult PT/OT Right sided pleural effusion and empyema Loculated hydropneumothorax s/p chest tube x 2 01/22, positive for empyema S/p decortication of pleural effusion 01/[address] Xiao COPD, emphysema Acute on chronic hypoxic respiratory failure - on 2-3L QHS at baseline, currently requiring 3L > Continue maintenance of mini atrium, empty PRN, no showering while chest tubes in place, call CTS CUSTOMER SALES SERVICE MANAGER/PA if issues > Discontinue Mucomyst nebulizes Q12H as patient having nausea from it > Continue albuterol nebs BID and PRN >Continue SENIOR NET SOFTWARE ENGINEER Symbicort BID, flonase BID, and anoro ellipta 1 puff QD > Continue guaifenesin LA 600mg BID >Patient will need exercise ox and overnight ox prior to discharge if still requiring o2 > f/u Dr. 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 tube > Continue metoprolol 12.5mg BID > Continue lasix at 60mg BID >On digoxin 125mcg daily (level therapeutic), 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 Vasotect, Lipitor >Continue daily weights, CTM Adjustment disorder with depressed and anxious mood: neuropsych following Nausea/vomiting: zofran scheduled with meals, EKG ok DEONTE: continue to encourage oral intake, monitor Cr Risk of opioid induced constipation: continue docusate 100mg BID, senna 2 tab QHS Macrocytic anemia, stable, CTM with CBC GERD: PPI Hypomagnesia: continue magnesium replacement Malnutrition: continue boost supplements, vit c, vit D, thiamine Pain Management: oxycodone 5mg Q3H PRN and tylenol 1G TID, lidoderm patches Pressure injury left ear stage 3, present on admission: Foam offloading device, assess fit of tubing and adjust accordingly to prevent tension on ears. Apply Bacitracin ointment to wound BID. Pressure injury coccyx/buttocks, stage 1, present on admission: - Apply Criticaid barrier cream BID and PRN to protect skin from moisture related to urine/stool. - Avoid briefs if possible and use only one disposable pad at at time underneath pt to prevent heat and moisture trapping against skin. - Implement q2 hr turning schedule using foam wedge for support. Encourage and assist pt to shift weight on hips q15-30 minutes when out of bed to chair. - HOB less than or equal to 30 degrees, unless contraindicated, to prevent shearing at coccyx/sacrum. Assess Stage 1 pressure injuries for intact skin and blanchable redness. This would indicate damage has resolved and wound can be completed. Bowel: continent of bowel Bladder: continent of bladder, BVIs x3 until <125ml and ISC for >300ml Nutrition: Current diet: regular with boost plus TID Mental Health: consult neuropsychology to provide support / counseling DVT Prophylaxis: Lovenox} Nela Santoro D.O.,M.B.A. Physical Medicine and Rehabilitation, PGY-2 Pager [phone] Subjective Darrius Winston Salas is a 62 y.o. seen in his room this morning. No acute events overnight. Patient reports ongoing nausea from inhaler. Discussed with pulmonary and she will get back to team regarding alternatives. No other issues today. Still on 3L. LE edema improved. Objective Vital Signs: Last Filed Vital Signs: 24 Hour Range BP: 132/80 (02/07 0851) Temp: 36.2 C (97.2 F) (02/07 0500) Pulse: 95 (02/07 0850) Respirations: 18 PER MINUTE (02/07 0500) SpO2: 99 % (02/07 0500) O2 Delivery: Nasal Cannula (02/07 500) BP: (114-132)/(64-80) Temp: [36.2 C (97.2 F)-36.6 C (97.8 F)] Pulse: [91-95] Respirations: [17 PER MINUTE-18 PER MINUTE] SpO2: [97 %-99 %] O2 Delivery: Nasal Cannula Intensity Pain Scale (Self Report): 6 (02/07/18 0554) Vitals: 02/05/18 0615 02/06/18 0555 02/07/18 0500 Weight: 75.9 kg (167 lb 5.3 oz) 70.6 kg (155 lb 9.6 oz) 70.4 kg (155 lb 1.6 oz) Intake/Output Summary: (Last 24 hours) Intake/Output Summary (Last 24 hours) at 02/07/2018 1007 Last data filed at 02/07/2018 0900 Gross per 24 hour Intake 977 ml Output 1145 ml Net -168 ml Stool Occurrence: 1 Oral Diet Order: Regular Last Bowel Movement Date: 02/05/18 Lab: Results for orders placed or performed during the hospital encounter of (from the past 24 hour(s)) POC GLUCOSE Collection Time: 02/06/18 11:57 AM # # Low-High Glucose, POC 122 (H) 70 - 100 MG/DL CBC CELLULAR THERAPEUTICS Collection Time: 02/07/18 6:03 AM # # Low-High White Blood Cells 10.8 4.5 - 11.0 K/UL RBC 2.30 (L) 4.4 - 5.5 M/UL Hemoglobin 7.8 (L) 13.5 - 16.5 GM/DL Hematocrit 23.8 (L) 40 - 50 % MCV 103.6 (H) 80 - 100 FL MCH 33.8 26 - 34 PG MCHC 32.7 32.0 - 36.0 G/DL RDW 17.6 (H) 11 - 15 % Platelet Count 256 150 - 400 K/UL MPV 7.6 7 - 11 FL BASIC METABOLIC PANEL CELLULAR THERAPEUTICS Collection Time: 02/07/18 6:03 AM # # Low-High Sodium 137 137 - 147 MMOL/L Potassium 3.4 (L) 3.5 - 5.1 MMOL/L Chloride 95 (L) 98 - 110 MMOL/L CO2 39 (H) 21 - 30 MMOL/L Anion Gap 3 3 - 12 Glucose 99 70 - 100 MG/DL Blood Urea Nitrogen 9 7 - 25 MG/DL Creatinine 1.29 (H) 0.4 - 1.24 MG/DL Calcium 8.3 (L) 8.5 - 10.6 MG/DL eGFR Non 56 (L) >60 mL/min eGFR >60 >60 mL/min MAGNESIUM Collection Time: 02/07/18 6:03 AM # # Low-High Magnesium 2.0 1.6 - 2.6 mg/dL DIGOXIN LEVEL Collection Time: 02/07/18 6:03 AM # # Low-High Digoxin 1.0 0.5 - 1.0 NG/ML Physical Exam VS: BP 132/80 | Pulse 95 | Temp 36.2 C (97.2 F) | Ht 182.9 cm (72") | Wt 70.4 kg (155 lb 1.6 oz) | SpO2 99% | BMI 21.04 kg/m Gen: Alert & Conversant, No Acute Distress, laying in bed HEENT: Normocephalic, atraumatic, sclera anicteric, conjunctiva not injected Neck: Supple, no elevated JVP Heart: Regular Rate & Rhythm, No Murmur Lungs: Good inspiratory effort , CTAB, right chest tube in place, draining well , 3 L o2 Abdomen: Soft, non-tender, non-distended, chest tube site c/d/i Skin: Warm, dry Ext: Minimal edema noted in b/l lower limbs, much improved MS: Moves b/l upper and lower extremities against gravity spontaneously Therapy Notes & Labs Reviewed. PRESS OPERATOR * Dianne Merlos RN - 02/07/2018 6:24 AM AIR PRESS OPERATOR Heart Failure Nursing Progress Note Admission Date: 02/02/2018 LOS: 5 days Admission Weight: 75.7 kg (166 lb 12.8 oz) Most recent weights (inpatient): Vitals: 02/05/18 0615 02/06/18 0555 02/07/18 0500 Weight: 75.9 kg (167 lb 5.3 oz) 70.6 kg (155 lb 9.6 oz) 70.4 kg (155 lb 1.6 oz) Weight change from previous day:-0.2 kg Fluid restriction ordered: No Intake/Output Summary: (Last 24 hours) Intake/Output Summary (Last 24 hours) at 02/07/2018 0625 Last data filed at 02/07/2018 0619 Gross per 24 hour Intake 377 ml Output 1145 ml Net -768 ml Is patient incontinent: No Anticipated discharge date: TBD Discharge goals: Regain Strenght Daily Assessment of Patient Stated Goals: Short Term Goal Identified by patient: Perform ADL's independently PRESS OPERATOR * Kaitlin Resendiz - 02/06/2018 4:09 PM AIR PRESS OPERATOR Facility Environmental Technician Note: Admit Date: 02/02/2018 Patient says he is feeling nauseous today. He explained his medical journey. Patient says he has coded a couple of times and saw a "great, bright light." Patients is at bedside. We talked about her journey here as well. Patient requested prayer so we prayed together. I had to leave for service at . Patient states he wants to attend [facility] service on Wednesday. Date/Time: User: Pager 02/06/2018 4:09 PM Kaitlin Resendiz PCU 3 PCU The spiritual care team is available as needed, 07/09, through the [place] switchboard ([phone]). For immediate response, please page [phone]. For a response within 24 hours, please submit an order in O2 for a hydraulic blocker consult or call the administrative voicemail at [phone]. PRESS OPERATOR * Ailyn Felder RT - 02/06/2018 10:56 AM AIR PRESS OPERATOR RT Adult Assessment Note NAME:Darrius Salas :1955 AGE: 62 y.o. ADMISSION DATE: 02/02/2018 DAYS ADMITTED: LOS: 4 days RT Treatment Plan: Protocol Plan: Medications Albuterol: Neb BID Acetylcysteine: Neb BID Protocol Plan: Procedures Vibrating PEP Therapy: BID(pt using on own) Oxygen/Humidity: O2 to keep SpO2 > 92% Monitoring: Pulse oximetry BID & PRN Vital Signs: Pulse: RR: SpO2: O2 Device: $$ O2 Device: Cannula Liter Flow: O2 Liter Flow: 3 lpm O2%: Breath Sounds: Respiratory Effort: PRESS OPERATOR * Gabriella Stevenson RN - 02/06/2018 6:42 AM AIR PRESS OPERATOR Heart Failure Nursing Progress Note Admission Date: 02/02/2018 LOS: 4 days Admission Weight: 75.7 kg (166 lb 12.8 oz) Most recent weights (inpatient): Vitals: 02/04/18 0732 02/05/18 0615 02/06/18 0555 Weight: 78.3 kg (172 lb 9.9 oz) 75.9 kg (167 lb 5.3 oz) 70.6 kg (155 lb 9.6 oz) Weight change from previous day:unknown d/t patient used standing scale this AM and states prior bed scale Fluid restriction ordered: N/A Intake/Output Summary: (Last 24 hours) Intake/Output Summary (Last 24 hours) at 02/06/2018 0642 Last data filed at 02/06/2018 0400 Gross per 24 hour Intake 240 ml Output 1345 ml Net -1105 ml Is patient incontinent: No Anticipated discharge date: 02/19/18 per doctor notes Discharge goals: to gain more strength Daily Assessment of Patient Stated Goals: Short Term Goal Identified by patient (Short Term=during hospitalization): To gain more strength PRESS OPERATOR * Nela Santoro MD - 02/06/2018 6:37 AM AIR PRESS OPERATOR Physical Medicine & Rehabilitation Progress Note Today's Date: 02/06/2018 Admission Date: 02/02/2018 LOS: 4 days Insurance: Medicare Principal Problem: Critical illness myopathy Active Problems: CHF (congestive heart failure) (HCC) CAD (coronary artery disease) Paroxysmal 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 (HCC) longterm current use of anticoagulant COPD (chronic obstructive pulmonary disease) (HCC) HTN (hypertension) HLD (hyperlipidemia) S/P ablation of 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 Pneumonia Cytomegalovirus (CMV) viremia (HCC) Impaired mobility and activities of daily living Loculated pleural effusion Acute on chronic respiratory failure with hypoxia and hypercapnia (HCC) Pulmonary aspergillosis invasive type (HCC) COPD, severe (HCC) Secondary spontaneous pneumothorax Legionella pneumonia (HCC) Atrial fibrillation with RVR (HCC) Empyema of right pleural space (HCC) Assessment/Plan: Mr. Darrius Salas is a 62 yo M with PMH of COPD on 2-3L QHS, tobacco use, Afib on Xarelto, CAD s/p PCI (2012) who was originally admitted to rehab with multi- organism PNA after multiple intubations and PEA arrest. He was re-admitted to [facility] for loculated hydropneumothorax and is now s/p chest tube placement and decortication. Patient presents to IRF with critical illness myopathy, generalized weakness, decreased endurance, and impaired mobility and ADLs warranting PT/OT therapies. Rehabilitation Plan Rehabilitation: Patient will continue with comprehensive therapies including physical therapy, occupational therapy, speech & language pathology, specialized rehab nursing, neuropsychology and physiatry oversight. Goals: Mod I to SBA Tentative discharge date: 02/19/18 Recommended therapy after discharge: TBD Recommended equipment: TBD Daily Functional Update: Transfers Device Sit to Stand Transfer: Assistive Device: 4-Wheeled Walker (02/05/2018 12:43 PM) No Data Recorded Gait Device Assist Required Distance Gait: Assistive Device: 4-Wheeled Walker (02/05/2018 12:43 PM) No Data Recorded Gait Distance: 100 feet (with multiple standing rest breaks; 61 feet, 30 feet) ( 02/05/2018 12:43 PM) Standing Balance Static Dynamic No Data Recorded No Data Recorded Toileting Assist Required Equipment Toilet Transfer Toileting Assist: Stand By Assist (02/05/2018 1:30 PM) Toileting Equipment: Commode - 3 in 1 padded (02/05/2018 1:30 PM) No Data Recorded Dressing Lower Body LE Dressing Assist: Minimal Assist (02/05/2018 8:30 AM) Critical Illness Myopathy Acute on chronic hypoxic respiratory failure Legionella pneumonia (PNA), invasive necrotizing aspergillosis PNA, HSV & CMV PNA, Proteus Mirabilis PNA Decreased pulmonary reserve Generalized weakness Decreased endurance Impaired mobility and ADLs - Baseline O2 2-3 L QHS, currently tolerating 2L NC - s/p x3 intubation/extubations - s/p PEA arrest (extubated 11/24) - s/p treatment with vancomyin, linezolid, zosyn, valacyclovir, micafungin , valcyte - Stopped zosyn 02/04, IM signed off >Consult ID for continuation of care >Continue antibiotics Cresemba 372mg QD; per ID note >Continue aggressive pulmonary hygiene with Aerobika and IS >Consult PT/OT Right sided pleural effusion and empyema Loculated hydropneumothorax s/p chest tube x 2 01/22, positive for empyema S/p decortication of pleural effusion 01/[address] Xiao COPD, emphysema Acute on chronic hypoxic respiratory failure - on 2-3L QHS at baseline, currently requiring 3L > Continue maintenance of mini atrium, empty PRN, no showering while chest tubes in place, call CTS CUSTOMER SALES SERVICE MANAGER/PA if issues > Continue Mucomyst nebulizes Q12H, albuterol nebs BID and PRN >Continue SENIOR NET SOFTWARE ENGINEER Symbicort BID, flonase BID, and anoro ellipta 1 puff QD > Continue guaifenesin LA 600mg BID >Patient will need exercise ox and overnight ox prior to discharge if still requiring o2 > f/u Dr. 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 tube > Continue metoprolol 12.5mg BID > Increased lasix at 60mg BID- Weights improved and o2 improved >On digoxin 125mcg daily (level 02/04 therapeutic), 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 Vasotect, Lipitor >Continue daily weights, CTM Adjustment disorder with depressed and anxious mood: neuropsych following Nausea/vomiting: zofran scheduled with meals, EKG ok DEONTE: continue to encourage oral intake, monitor Cr Risk of opioid induced constipation: continue docusate 100mg BID, senna 2 tab QHS Macrocytic anemia, stable, CTM with CBC GERD: PPI Hypomagnesia: continue magnesium replacement Malnutrition: continue boost supplements, vit c, vit D, thiamine Pain Management: oxycodone 5mg Q3H PRN and tylenol 1G TID, lidoderm patches Pressure injury left ear stage 3, present on admission: Foam offloading device, assess fit of tubing and adjust accordingly to prevent tension on ears. Apply Bacitracin ointment to wound BID. Pressure injury coccyx/buttocks, stage 1, present on admission: - Apply Criticaid barrier cream BID and PRN to protect skin from moisture related to urine/stool. - Avoid briefs if possible and use only one disposable pad at at time underneath pt to prevent heat and moisture trapping against skin. - Implement q2 hr turning schedule using foam wedge for support. Encourage and assist pt to shift weight on hips q15-30 minutes when out of bed to chair. - HOB less than or equal to 30 degrees, unless contraindicated, to prevent shearing at coccyx/sacrum. Assess Stage 1 pressure injuries for intact skin and blanchable redness. This would indicate damage has resolved and wound can be completed. Bowel: continent of bowel Bladder: continent of bladder, BVIs x3 until <125ml and ISC for >300ml Nutrition: Current diet: regular with boost plus TID Mental Health: consult neuropsychology to provide support / counseling DVT Prophylaxis: Lovenox} Nela Santoro D.O.,M.B.A. Physical Medicine and Rehabilitation, PGY-2 Pager [phone] Subjective Darrius Salas is a 62 y.o. seen in his room this morning. No acute events overnight. On 3L 02 this morning, improved. Reports SOB with exertion. Pain is slightly better today than yesterday. Appetite remains a challenge. Encourage protein shakes. No other complaints at this time. Objective Vital Signs: Last Filed Vital Signs: 24 Hour Range BP: 131/76 (02/06 555) Temp: 36.9 C (98.4 F) (02/06 555) Pulse: 95 (02/06 555) Respirations: 18 PER MINUTE (02/06 555) SpO2: 97 % (02/06 555) O2 Delivery: Nasal Cannula (02/06 555) BP: (109-131)/(62-76) Temp: [36.5 C (97.7 F)-36.9 C (98.4 F)] Pulse: [95-100] Respirations: [16 PER MINUTE-18 PER MINUTE] SpO2: [97 %-98 %] O2 Delivery: Nasal Cannula Intensity Pain Scale (Self Report): 3 (02/05/18 2137) Vitals: 02/04/18 0732 02/05/18 0615 02/06/18 0555 Weight: 78.3 kg (172 lb 9.9 oz) 75.9 kg (167 lb 5.3 oz) 70.6 kg (155 lb 9.6 oz) Intake/Output Summary: (Last 24 hours) Intake/Output Summary (Last 24 hours) at 02/06/2018 0637 Last data filed at 02/06/2018 0400 Gross per 24 hour Intake 240 ml Output 1345 ml Net -1105 ml Stool Occurrence: 1 Oral Diet Order: Regular Last Bowel Movement Date: 02/05/18 Lab: No results found for this visit on 02/02/18 (from the past 24 hour(s)). Physical Exam VS: BP 131/76 (BP Source: Arm, Left Upper) | Pulse 95 | Temp 36.9 C (98.4 F) | Ht 182.9 cm (72") | Wt 70.6 kg (155 lb 9.6 oz) | SpO2 97% | BMI 21.10 kg/m Gen: Alert & Conversant, No Acute Distress, laying in bed HEENT: Normocephalic, atraumatic, sclera anicteric, conjunctiva not injected Neck: Supple, no elevated JVP Heart: Regular Rate & Rhythm, No Murmur Lungs: Good inspiratory effort , CTAB, right chest tube in place, draining well , 3 L o2 Abdomen: Soft, non-tender, non-distended, chest tube site c/d/i Skin: Warm, dry Ext: 1+ edema noted in b/l lower limbs, much improved MS: Moves b/l upper and lower extremities against gravity spontaneously Therapy Notes & Labs Reviewed. PRESS OPERATOR Associated attestation - Estephanie Tapia MD - 02/06/2018 8:59 PM AIR PRESS OPERATOR ATTESTATION I personally performed the gaytan portions of the E/M visit, discussed case with resident and concur with resident documentation of history, physical exam, assessment, and treatment plan unless otherwise noted. Some mild improvement in pain around left chest tube site after application of lidocaine patches. Shortness of breath persistent but improving. -Exam: breath sounds symmetric without wheezes, moves all limbs symmetrically -Lab and vitals reviewed and stable. O2 requirements improving. Afebrile. -Hypokalemia, will replace -Leukocytosis stable. -Patient remains medically and functionally stable for continued rehabilitation participation. Staff name: Estephanie Tapia MD Date: 02/06/2018 * Kaylen Lynch RN - 02/05/2018 6:14 PM AIR PRESS OPERATOR Heart Failure Nursing Progress Note Admission Date: 02/02/2018 LOS: 3 days Admission Weight: 75.7 kg (166 lb 12.8 oz) Most recent weights (inpatient): Vitals: 02/03/18 0453 02/04/18 0732 02/05/1815 Weight: 77.6 kg (171 lb 1.6 oz) 78.3 kg (172 lb 9.9 oz) 75.9 kg (167 lb 5.3 oz) Weight change from previous day:2.4 Kg Fluid restriction ordered: No Intake/Output Summary: (Last 24 hours) Intake/Output Summary (Last 24 hours) at 02/05/2018 1815 Last data filed at 02/05/2018 1720 Gross per 24 hour Intake 240 ml Output 2985 ml Net -2745 ml Is patient incontinent : No Anticipated discharge date: TBA Discharge goals: To gain strength Daily Assessment of Patient Stated Goals: Short Term Goal Identified by patient (Short Term=during hospitalization): PRESS OPERATOR * Minna Harris RN - 02/05/2018 6:41 AM AIR PRESS OPERATOR Heart Failure Nursing Progress Note Admission Date: 02/02/2018 LOS: 3 days Admission Weight: 75.7 kg (166 lb 12.8 oz) Most recent weights (inpatient): Vitals: 02/03/18 0453 02/04/18 0732 02/05/1815 Weight: 77.6 kg (171 lb 1.6 oz) 78.3 kg (172 lb 9.9 oz) 75.9 kg (167 lb 5.3 oz) Weight change from previous day:-2.4kg Fluid restriction ordered: NA Intake/Output Summary: (Last 24 hours) Intake/Output Summary (Last 24 hours) at 02/05/2018 0641 Last data filed at 02/05/2018 0615 Gross per 24 hour Intake Output 2640 ml Net -2640 ml Is patient incontinent No Anticipated discharge date: TBD Discharge goals: Regain strength Daily Assessment of Patient Stated Goals: Short Term Goal Identified by patient (Short Term=during hospitalization): Get ADL's done with more independence. PRESS OPERATOR * Estephanie Tapia MD - 02/05/2018 6:34 AM AIR PRESS OPERATOR ATTESTATION I personally performed the gaytan portions of the E/M visit, discussed case with resident and concur with resident documentation of history, physical exam, assessment, and treatment plan unless otherwise noted. Patient reports some pain around his chest tube site. Breathing/ shortness of breath/ O2 requirements all stable. -Exam: chest tube in place, dressing C/D/I, BLE pitting edema noted, heart rate irregularly irregular -Lab and vitals reviewed. O2 requirements 3-4 L. -Mild leukocytosis stable. Anemia stable. -Increase Lasix dosing -Continue lidocaine patches for chest tube site pain -Patient remains medically and functionally stable for continued rehabilitation participation. Staff name: Estephanie Tapia MD Date: 02/05/2018 Physical Medicine & Rehabilitation Progress Note Today's Date: 02/05/2018 Admission Date: 02/02/2018 LOS: 3 days Insurance: Medicare Principal Problem: Critical illness myopathy Active Problems: CHF (congestive heart failure) ([facility]) CAD (coronary artery disease) Paroxysmal 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 (HCC) longterm current use of anticoagulant COPD (chronic obstructive pulmonary disease) ([facility]) HTN (hypertension) HLD (hyperlipidemia) S/P ablation of 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 Pneumonia Cytomegalovirus (CMV) viremia ([facility]) Impaired mobility and activities of daily living Loculated pleural effusion Acute on chronic respiratory failure with hypoxia and hypercapnia ([facility]) Pulmonary aspergillosis invasive type (HCC) COPD, severe (HCC) Secondary spontaneous pneumothorax Legionella pneumonia (HCC) Atrial fibrillation with RVR (HCC) Empyema of right pleural space (HCC) Assessment/Plan: Mr. Darrius Salas is a 62 yo M with PMH of COPD on 2-3L QHS, tobacco use, Afib on Xarelto, CAD s/p PCI (2012) who was originally admitted to rehab with multi- organism PNA after multiple intubations and PEA arrest. He was re-admitted to [facility] for loculated hydropneumothorax and is now s/p chest tube placement and decortication. Patient presents to IRF with critical illness myopathy, generalized weakness, decreased endurance, and impaired mobility and ADLs warranting PT/OT therapies. Rehabilitation Plan Rehabilitation: Patient will continue with comprehensive therapies including physical therapy, occupational therapy, speech & language pathology, specialized rehab nursing, neuropsychology and physiatry oversight. Goals: Mod I to SBA Tentative discharge date: 02/19/18 Recommended therapy after discharge: TBD Recommended equipment: TBD Daily Functional Update: Transfers Device Sit to Stand Transfer: Assistive Device: 4-Wheeled Walker (02/04/2018 3:00 PM) No Data Recorded Gait Device Assist Required Distance Gait: Assistive Device: 4-Wheeled Walker (02/04/2018 3:00 PM) No Data Recorded Gait Distance: 50 feet (02/04/2018 3:00 PM) Standing Balance Static Dynamic No Data Recorded No Data Recorded Toileting Assist Required Equipment Toilet Transfer Toileting Assist: Moderate Assist (02/03/2018 8:00 AM) Toileting Equipment: Commode - 3 in 1 (02/03/2018 8:00 AM) No Data Recorded Dressing Lower Body LE Dressing Assist: Maximum Assist (02/04/2018 8:48 AM) Critical Illness Myopathy Acute on chronic hypoxic respiratory failure Legionella pneumonia (PNA), invasive necrotizing aspergillosis PNA, HSV & CMV PNA, Proteus Mirabilis PNA Decreased pulmonary reserve Generalized weakness Decreased endurance Impaired mobility and ADLs - Baseline O2 2-3 L QHS, currently tolerating 2L NC - s/p x3 intubation/extubations - s/p PEA arrest (extubated 11/24) - s/p treatment with vancomyin, linezolid, zosyn, valacyclovir, micafungin , valcyte - Stopped zosyn 02/04, IM signed off >Consult ID for continuation of care >Continue antibiotics Cresemba 372mg QD; per ID note >Continue aggressive pulmonary hygiene with Aerobika and IS >Consult PT/OT Right sided pleural effusion and empyema Loculated hydropneumothorax s/p chest tube x 2 01/22, positive for empyema S/p decortication of pleural effusion 01/[address] Xiao COPD, emphysema Acute on chronic hypoxic respiratory failure - on 2-3L QHS at baseline, currently requiring 2L > Continue maintenance of mini atrium, empty PRN, no showering while chest tubes in place, call CTS CUSTOMER SALES SERVICE MANAGER/PA if issues > Continue Mucomyst nebulizes Q12H, albuterol nebs BID and PRN >Continue SENIOR NET SOFTWARE ENGINEER Symbicort BID, flonase BID, and anoro ellipta 1 puff QD > Continue guaifenesin LA 600mg BID >Patient will need exercise ox and overnight ox prior to discharge if still requiring o2 > f/u Dr. 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 tube > Continue metoprolol 12.5mg BID > Restart lasix at 40mg BID today, will likely titrate to 60mg BID if needed - monitor volume status and daily wts, up since rehab admission >On digoxin 125mcg daily (level 02/04 therapeutic), 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 Vasotect, Lipitor >Continue daily weights, CTM Adjustment disorder with depressed and anxious mood: neuropsych following Nausea/vomiting: zofran scheduled with meals, EKG ok DEONTE: continue to encourage oral intake, monitor Cr Risk of opioid induced constipation: continue docusate 100mg BID, senna 2 tab QHS Macrocytic anemia, stable, CTM with CBC GERD: PPI Hypomagnesia: continue magnesium replacement Malnutrition: continue boost supplements, vit c, vit D, thiamine Pain Management: oxycodone 5mg Q3H PRN and tylenol 1G TID, lidoderm patches Pressure injury left ear stage 3, present on admission: Foam offloading device, assess fit of tubing and adjust accordingly to prevent tension on ears. Apply Bacitracin ointment to wound BID. Pressure injury coccyx/buttocks, stage 1, present on admission: - Apply Criticaid barrier cream BID and PRN to protect skin from moisture related to urine/stool. - Avoid briefs if possible and use only one disposable pad at at time underneath pt to prevent heat and moisture trapping against skin. - Implement q2 hr turning schedule using foam wedge for support. Encourage and assist pt to shift weight on hips q15-30 minutes when out of bed to chair. - HOB less than or equal to 30 degrees, unless contraindicated, to prevent shearing at coccyx/sacrum. Assess Stage 1 pressure injuries for intact skin and blanchable redness. This would indicate damage has resolved and wound can be completed. Bowel: continent of bowel Bladder: continent of bladder, BVIs x3 until <125ml and ISC for >300ml Nutrition: Current diet: regular with boost plus TID Mental Health: consult neuropsychology to provide support / counseling DVT Prophylaxis: Lovenox} Nela Santoro D.O.,M.B.A. Physical Medicine and Rehabilitation, PGY-2 Pager [phone] Subjective Darrius Salas is a 62 y.o. seen in his room this morning. No acute events overnight. Patient doing well this morning. He was not able to eat much this morning. Reports pain around chest tube , some relief provided by lidoderm patches. Denies SOB/CP, N/V. Denies pain. No other complaints at this time. Objective Vital Signs: Last Filed Vital Signs: 24 Hour Range BP: 125/74 (02/05 615) Temp: 36.6 C (97.9 F) (02/05 615) Pulse: 71 (02/05 615) Respirations: 18 PER MINUTE (02/05 615) SpO2: 99 % (02/05 615) O2 Delivery: Nasal Cannula (02/05 615) BP: (125-142)/(68-80) Temp: [36.5 C (97.7 F)-36.6 C (97.9 F)] Pulse: [71-98] Respirations: [18 PER MINUTE] SpO2: [94 %-100 %] O2 Delivery: Nasal Cannula Intensity Pain Scale (Self Report): 6 (12/21/18 2153) Vitals: 02/03/18 0453 02/04/18 0732 02/05/18 0615 Weight: 77.6 kg (171 lb 1.6 oz) 78.3 kg (172 lb 9.9 oz) 75.9 kg (167 lb 5.3 oz) Intake/Output Summary: (Last 24 hours) Intake/Output Summary (Last 24 hours) at 02/05/2018 0634 Last data filed at 02/05/2018 0600 Gross per 24 hour Intake Output 1865 ml Net -1865 ml Stool Occurrence: 1 Oral Diet Order: Regular Last Bowel Movement Date: 02/03/18 Lab: No results found for this visit on 02/02/18 (from the past 24 hour(s)). Physical Exam VS: BP 125/74 (BP Source: Arm, Left Upper) | Pulse 71 | Temp 36.6 C (97.9 F) | Ht 182.9 cm (72") | Wt 75.9 kg (167 lb 5.3 oz) | SpO2 99% | BMI 22.69 kg/m Gen: Alert & Conversant, No Acute Distress, laying in bed HEENT: Normocephalic, atraumatic, sclera anicteric, conjunctiva not injected Neck: Supple, no elevated JVP Heart: Regular Rate & Rhythm, No Murmur Lungs: Good inspiratory effort , CTAB, right chest tube in place, draining well , 4 L o2 Abdomen: Soft, non-tender, non-distended, chest tube site c/d/i Skin: Warm, dry Ext: 1+ edema noted in b/l lower limbs MS: Moves b/l upper and lower extremities against gravity spontaneously Therapy Notes & Labs Reviewed. PRESS OPERATOR * Beatriz Ortiz MD - 02/04/2018 11:36 AM AIR PRESS OPERATOR ATTESTATION I personally performed the gaytan portions of the E/M visit, discussed case with resident and concur with resident documentation of history, physical exam, assessment, and treatment plan unless otherwise noted. Nausea improved this morning, c/o pain at chest tube sites. Labs and VS reviewed and wts up since rehab admission, o/w stable. Digoxin level therapeutic today. On exam, 4L NC O2. 2+ pitting edema to thighs. Resume Lasix 40mg BID today, may increase to 60mg BID pending volume status. Continue current dose digoxin. Holding vasotec and lipitor for now. Reviewed MAR, patient not taking Tylenol or Lidoderm patch. Changed orders to schedule these. Cont scheduled Zofran with meals, improved nausea today. Encourage diet supplements. Monitor chest tube output, stable. Patient remains medically stable to participate in IRF program. Additions/addendums to resident's note highlighted in blue. Staff name: Beatriz Ortiz MD Date: 02/04/2018 Physical Medicine & Rehabilitation Progress Note Today's Date: 02/04/2018 Admission Date: 02/02/2018 LOS: 2 days Insurance: Medicare Principal Problem: Critical illness myopathy Active Problems: CHF (congestive heart failure) (HCC) CAD (coronary artery disease) Paroxysmal 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 (HCC) longterm current use of anticoagulant COPD (chronic obstructive pulmonary disease) (HCC) HTN (hypertension) HLD (hyperlipidemia) S/P ablation of 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 Pneumonia Cytomegalovirus (CMV) viremia (HCC) Impaired mobility and activities of daily living Loculated pleural effusion Acute on chronic respiratory failure with hypoxia and hypercapnia ([facility]) Pulmonary aspergillosis invasive type (HCC) COPD, severe (HCC) Secondary spontaneous pneumothorax Legionella pneumonia ([facility]) Atrial fibrillation with RVR ([facility]) Empyema of right pleural space ([facility]) Assessment/Plan: Mr. Darrius Salas is a 62 yo M with PMH of COPD on 2-3L QHS, tobacco use, Afib on Xarelto, CAD s/p PCI (2012) who was originally admitted to rehab with multi- organism PNA after multiple intubations and PEA arrest. He was re-admitted to [facility] for loculated hydropneumothorax and is now s/p chest tube placement and decortication. Patient presents to IRF with critical illness myopathy, generalized weakness, decreased endurance, and impaired mobility and ADLs warranting PT/OT therapies. Rehabilitation Plan Rehabilitation: Patient will continue with comprehensive therapies including physical therapy, occupational therapy, speech & language pathology, specialized rehab nursing, neuropsychology and physiatry oversight. Goals: Mod I to SBA Tentative discharge date: TBD Recommended therapy after discharge: TBD Recommended equipment: TBD Daily Functional Update: Transfers Device Sit to Stand Transfer: Assistive Device: 4-Wheeled Walker (02/04/2018 8:48 AM) No Data Recorded Gait Device Assist Required Distance Gait: Assistive Device: 4-Wheeled Walker (02/03/2018 2:00 PM) No Data Recorded Gait Distance: 40 feet (total) (02/03/2018 2:00 PM) Standing Balance Static Dynamic No Data Recorded No Data Recorded Toileting Assist Required Equipment Toilet Transfer Toileting Assist: Moderate Assist (02/03/2018 8:00 AM) Toileting Equipment: Commode - 3 in 1 (02/03/2018 8:00 AM) No Data Recorded Dressing Lower Body LE Dressing Assist: Maximum Assist (02/04/2018 8:48 AM) Critical Illness Myopathy Acute on chronic hypoxic respiratory failure Legionella pneumonia (PNA), invasive necrotizing aspergillosis PNA, HSV & CMV PNA, Proteus Mirabilis PNA Decreased pulmonary reserve Generalized weakness Decreased endurance Impaired mobility and ADLs - Baseline O2 2-3 L QHS, currently tolerating 2L NC - s/p x3 intubation/extubations - s/p PEA arrest (extubated 11/24) - s/p treatment with vancomyin, linezolid, zosyn, valacyclovir, micafungin , valcyte >Consult ID for continuation of care, also consult internal medicine for multisystem disease >Continue antibiotics including IV zosyn, Cresemba 372mg QD; per ID note stopped zosyn >Continue aggressive pulmonary hygiene with Aerobika and IS >Consult PT/OT Right sided pleural effusion and empyema Loculated hydropneumothorax s/p chest tube x 2 01/22, positive for empyema S/p decortication of pleural effusion 01/[address] Xiao COPD, emphysema Acute on chronic hypoxic respiratory failure - on 2-3L QHS at baseline, currently requiring 2L > Continue maintenance of mini atrium, empty PRN, no showering while chest tubes in place, call CTS CUSTOMER SALES SERVICE MANAGER/PA if issues > Continue Mucomyst nebulizes Q12H, albuterol nebs BID and PRN >Continue SENIOR NET SOFTWARE ENGINEER Symbicort BID, flonase BID, and anoro ellipta 1 puff QD > Continue guaifenesin LA 600mg BID >Patient will need exercise ox and overnight ox prior to discharge if still requiring o2 > f/u Dr. 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 tube > Continue metoprolol 12.5mg BID > Restart lasix at 40mg BID today, titrate to 60mg BID if needed - monitor volume status and daily wts, up since rehab admission >On digoxin 125mcg daily (level 02/04 therapeutic), 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 Vasotect, Lipitor >Continue daily weights, CTM Adjustment disorder with depressed and anxious mood: neuropsych following Nausea/vomiting: zofran scheduled with meals, EKG ok DEONTE: continue to encourage oral intake, monitor Cr Risk of opioid induced constipation: continue docusate 100mg BID, senna 2 tab QHS Macrocytic anemia, stable, CTM with CBC GERD: PPI Hypomagnesia: continue magnesium replacement Malnutrition: continue boost supplements, vit c, vit D, thiamine Pain Management: oxycodone 5mg Q3H PRN and tylenol 1G TID, lidoderm patches Pressure injury left ear stage 3, present on admission: Foam offloading device, assess fit of tubing and adjust accordingly to prevent tension on ears. Apply Bacitracin ointment to wound BID. Pressure injury coccyx/buttocks, stage 1, present on admission: - Apply Criticaid barrier cream BID and PRN to protect skin from moisture related to urine/stool. - Avoid briefs if possible and use only one disposable pad at at time underneath pt to prevent heat and moisture trapping against skin. - Implement q2 hr turning schedule using foam wedge for support. Encourage and assist pt to shift weight on hips q15-30 minutes when out of bed to chair. - HOB less than or equal to 30 degrees, unless contraindicated, to prevent shearing at coccyx/sacrum. Assess Stage 1 pressure injuries for intact skin and blanchable redness. This would indicate damage has resolved and wound can be completed. Bowel: continent of bowel Bladder: continent of bladder, BVIs x3 until <125ml and ISC for >300ml Nutrition: Current diet: regular with boost plus TID Mental Health: consult neuropsychology to provide support / counseling DVT Prophylaxis: Lovenox} Nela Santoro D.O.,M.B.A. Physical Medicine and Rehabilitation, PGY-2 Pager [phone] Subjective Darrius Salas is a 62 y.o. seen in his room this morning. He reports increase in pain today, will adjust tylenol to scheduled. Encouraged lidoderm patches around tube site. Otherwise, patient still has edema in LE. Will add lasix today with room to increase. He was able to eat his breakfast with the scheduled zofran today. Will continue for now. Objective Vital Signs: Last Filed Vital Signs: 24 Hour Range BP: 153/87 (02/05 356) Temp: 36.3 C (97.4 F) (02/05 356) Pulse: 93 (02/05 356) Respirations: 18 PER MINUTE (02/05 356) SpO2: 99 % (02/05 356) O2 Delivery: Nasal Cannula (02/05 356) BP: (118-153)/(70-87) Temp: [36.3 C (97.4 F)-37 C (98.6 F)] Pulse: [88-102] Respirations: [17 PER MINUTE-18 PER MINUTE] SpO2: [92 %-99 %] O2 Delivery: Nasal Cannula Intensity Pain Scale (Self Report): 4 (02/04/18 0945) Vitals: 02/02/18 1648 02/03/18 0453 02/04/18 0732 Weight: 75.7 kg (166 lb 12.8 oz) 77.6 kg (171 lb 1.6 oz) 78.3 kg (172 lb 9.9 oz ) Intake/Output Summary: (Last 24 hours) Intake/Output Summary (Last 24 hours) at 02/04/2018 1136 Last data filed at 02/04/2018 0624 Gross per 24 hour Intake Output 985 ml Net -985 ml Stool Occurrence: 1 Oral Diet Order: Regular Last Bowel Movement Date: 02/03/18 Lab: Results for orders placed or performed during the hospital encounter of (from the past 24 hour(s)) CBC CELLULAR THERAPEUTICS Collection Time: 02/04/18 5:54 AM # # Low-High White Blood Cells 12.3 (H) 4.5 - 11.0 K/UL RBC 2.36 (L) 4.4 - 5.5 M/UL Hemoglobin 8.0 (L) 13.5 - 16.5 GM/DL Hematocrit 24.3 (L) 40 - 50 % MCV 103.0 (H) 80 - 100 FL MCH 33.8 26 - 34 PG MCHC 32.8 32.0 - 36.0 G/DL RDW 17.9 (H) 11 - 15 % Platelet Count 221 150 - 400 K/UL MPV 7.5 7 - 11 FL BASIC METABOLIC PANEL CELLULAR THERAPEUTICS Collection Time: 02/04/18 5:54 AM # # Low-High Sodium 139 137 - 147 MMOL/L Potassium 3.6 3.5 - 5.1 MMOL/L Chloride 105 98 - 110 MMOL/L CO2 31 (H) 21 - 30 MMOL/L Anion Gap 3 3 - 12 Glucose 112 (H) 70 - 100 MG/DL Blood Urea Nitrogen 5 (L) 7 - 25 MG/DL Creatinine 1.35 (H) 0.4 - 1.24 MG/DL Calcium 8.4 (L) 8.5 - 10.6 MG/DL eGFR Non 54 (L) >60 mL/min eGFR >60 >60 mL/min DIGOXIN LEVEL Collection Time: 02/04/18 5:54 AM # # Low-High Digoxin 1.0 0.5 - 1.0 NG/ML Physical Exam VS: BP 153/87 (BP Source: Arm, Left Upper) | Pulse 93 | Temp 36.3 C (97.4 F) | Ht 182.9 cm (72") | Wt 78.3 kg (172 lb 9.9 oz) | SpO2 99% | BMI 23.41 kg/m Gen: Alert & Conversant, No Acute Distress, laying in bed HEENT: Normocephalic, atraumatic, sclera anicteric, conjunctiva not injected Neck: Supple, no elevated JVP Heart: Regular Rate & Rhythm, No Murmur Lungs: Good inspiratory effort , CTAB, right chest tube in place, 4 L o2 Abdomen: Soft, non-tender, non-distended Skin: Warm, dry Ext: 1+ edema noted in b/l lower limbs MS: Moves b/l upper extremities against gravity spontaneously Therapy Notes & Labs Reviewed. Nela Santoro D.O.,M.B.A. 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 COPD (chronic obstructive pulmonary disease) (HCC) HTN (hypertension) HLD (hyperlipidemia) S/P ablation of 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 Pneumonia Cytomegalovirus (CMV) viremia (HCC) Impaired mobility and activities of daily living Loculated pleural effusion Acute on chronic respiratory failure with hypoxia and hypercapnia (HCC) Pulmonary aspergillosis invasive type (HCC) COPD, severe (HCC) Secondary spontaneous pneumothorax Legionella pneumonia (HCC) Atrial fibrillation with RVR (HCC) Empyema of right pleural space (HCC) Reason for consult: Medical management of multisystem disease 62-year-old with complicated past medical history of 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 fib on Xarelto, CAD status post PCI in 2012, congestive heart failure. Initially admitted to as a transfer from outside hospital for Legionella and aspergillosis pneumonia 11/13/2017. Hospital stay complicated by PEA 10/4 due to mucous plugging. Discharged to rehab on 12/31. Readmitted to for recurrent fevers, dypsnea, and oxygen desaturations. Found to have loculated hydropneumothorax now status post repeat chest tube placement and decortication. 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 mirabilispneumonia 01/16/18 #PEA 10/4 due to mucus plugging #Loculated hydropneumothorax -BAL at the time positive for Tamar Glabrata, HSV and CMV. -CT chest was preformed that showed multifocal PNA with air-fluid levels, fungitell 38, features concerning for necrotizing aspergillosis PNA.Bronch preformed 11/19 later confirmed this suspected diagnosis. -Currently on Zosyn and Cresemba 372 daily -Chest tube in place, thoracic surgery will follow up in clinic after discharge from rehab facility to address chest tube duration -ID following COPD Chronic respiratory failure Baseline oxygen 2-3 L at night Follows with pulmonology in [place] [employer] NET SOFTWARE ENGINEER Mucomyst BID, albuterol twice daily as needed, Flonase daily, Mucinex 600 mg twice daily, and Anoro Ellipta daily DEONTE (improving) Baseline cr normal ~0.6, reached max of 2.36 this admission, now down-trending Likely due to cardiogenic shock CAD A. Fib with RVR, now in sinus tachycardia [employer] SOFTWARE ENG[employer] Xarelto Digoxin started this admission for Afib with RVR Status post PCI in 2012 [employer]IOR NET SOFTWARE ENGINEER Lopressor 12.5 twice daily Patient reports he was previously on Lasix at home for lower extremity edema Echo 11/22/2017 with EF 70% EKG 02/03 with sinus rhythm Recommendations -Can consider adding second antiemetic agent to control nausea like compazine, no QTc prolongation on EKG 02/03 -Digoxin level normal at 1.0, okay to continue current dose for rhythm control -Agree with high protein shakes given hypoalbuminemia. Encourage increased oral intake -Defer antibiotic management to ID -Defer chest tube management to CTS -Continue current [employer] SOFTWARE ENG[employer]ER inhaler regimen for COPD, not in acute exacerbation Thank you for the consult, we will sign off. Please page the consult team pager [phone] for any questions or concerns Patient seen and discussed with Dr. Aly Rashid MD PGY1 Team pager [phone] Subjective Darrius Salas is a 62 y.o. male. Patient doing better today. Up in chair. States nausea is improving. Diarrhea unchanged. Denies fevers, chills, emesis, left sided chest pain, difficulty breathing, pain with breathing, abdominal pain. Medications Scheduled Meds: acetaminophen (TYLENOL) tablet 1,000 mg 1,000 mg Oral TID acetylcysteine (MUCOMYST) 200 mg/mL (20 %) nebulizer solution 3 mL 3 mL Inhalation Q12H albuterol 0.5% (PROVENTIL; VENTOLIN) nebulizer solution 2.5 mg 2.5 mg Inhalation BID & PRN ascorbic acid (VITAMIN C) tablet 500 mg 500 mg Oral QDAY bacitracin topical ointment Topical BID cholecalciferol (VITAMIN D-3) tablet 400 Units 400 Units Oral QDAY digoxin (LANOXIN) tablet 125 mcg 125 mcg Oral QDAY docusate (COLACE) capsule 100 mg 100 mg Oral BID enoxaparin (LOVENOX) syringe 40 mg 40 mg Subcutaneous QDAY fluticasone (FLONASE) nasal spray 2 spray 2 spray Each Nostril QDAY furosemide (LASIX) tablet 40 mg 40 mg Oral BID(9-17) guaiFENesin LA (MUCINEX) tablet 600 mg 600 mg Oral BID isavuconazonium sulfate (CRESEMBA) capsule 372 mg 372 mg Oral QDAY(21) lidocaine (LIDODERM) 5 % topical patch 1-2 patch 1-2 patch Topical QDAY magnesium oxide (MAG-OX) tablet 400 mg 400 mg Oral BID metoprolol tartrate (LOPRESSOR) tablet 12.5 mg 12.5 mg Oral BID ondansetron (ZOFRAN) tablet 4 mg 4 mg Oral TID w/ meals pantoprazole DR (PROTONIX) tablet 40 mg 40 mg Oral QDAY(21) polyethylene glycol 3350 (MIRALAX) packet 17 g 1 packet Oral BID senna (SENOKOT) tablet 2 tablet 2 tablet Oral QHS sodium chloride PF 0.9% flush 30 mL 30 mL Intravenous FLUSH TID thiamine mononitrate tablet 100 mg 100 mg Oral QDAY umeclidinium-vilanterol (ANORO ELLIPTA) 62.5-25 mcg/actuation inhaler 1 puff 1 puff Inhalation QDAY vitamin A & D topical ointment Topical QDAY vitamins, multi w/minerals tablet 1 tablet 1 tablet Oral QDAY zinc sulfate capsule 220 mg 220 mg Oral QDAY Continuous Infusions: PRN and Respiratory Meds:alteplase BID PRN, aluminum/magnesium hydroxide Q4H PRN , bisacodyl QDAY PRN, milk of magnesia (CONC) Q4H PRN, ondansetron Q6H PRN, oxyCODONE Q3H PRN Review of Systems: All other systems reviewed and are negative. Objective: Vital Signs: Last Filed Vital Signs: 24 Hour Range BP: 153/87 (02/05 356) Temp: 36.3 C (97.4 F) (02/05 356) Pulse: 93 (02/05 356) Respirations: 18 PER MINUTE (02/05 356) SpO2: 99 % (02/05 356) O2 Delivery: Nasal Cannula (02/05 356) BP: (118-153)/(66-87) Temp: [36.3 C (97.4 F)-37 C (98.6 F)] Pulse: [88-102] Respirations: [17 PER MINUTE-18 PER MINUTE] SpO2: [92 %-99 %] O2 Delivery: Nasal Cannula Intensity Pain Scale (Self Report): 5 (02/04/18 0542) Verbal Pain Description: No Pain (02/03/18 1315) Vitals: 02/02/18 1648 02/03/18 0453 02/04/18 0732 Weight: 75.7 kg (166 lb 12.8 oz) 77.6 kg (171 lb 1.6 oz) 78.3 kg (172 lb 9.9 oz ) Intake/Output Summary: (Last 24 hours) Intake/Output Summary (Last 24 hours) at 02/04/2018 0934 Last data filed at 02/04/2018 0624 Gross per 24 hour Intake 100 ml Output 1265 ml Net -1165 ml Stool Occurrence: 1 Physical Exam General: Alert, cooperative, no distress, appears stated age Head: Normocephalic, without obvious abnormality, atraumatic Eyes: Conjunctivae/corneas clear. PERRL, EOMs intact. Neck: Supple, symmetrical, trachea midline, no carotid bruit and no JVD Lungs: Bilateral wheezes, crackles in lung bases bilaterally. Chest tube in place Heart: Tachycardic, regular rhythm, S1, S2 normal, no murmur, click rub or gallop Abdomen: Soft, non-tender. Bowel sounds normal. No masses. No organomegaly. Extremities: Extremities normal, atraumatic, no cyanosis. 3+ pitting edema to mid calf bilaterally Peripheral pulses: 2+ and symmetric, all extremities Skin: Skin color, texture, turgor normal. No rashes or lesions Lab Review 24-hour labs: Results for orders placed or performed during the hospital encounter of (from the past 24 hour(s)) CBC CELLULAR THERAPEUTICS Collection Time: 02/04/18 5:54 AM Result Value Ref Range White Blood Cells 12.3 (H) 4.5 - 11.0 K/UL RBC 2.36 (L) 4.4 - 5.5 M/UL Hemoglobin 8.0 (L) 13.5 - 16.5 GM/DL Hematocrit 24.3 (L) 40 - 50 % MCV 103.0 (H) 80 - 100 FL MCH 33.8 26 - 34 PG MCHC 32.8 32.0 - 36.0 G/DL RDW 17.9 (H) 11 - 15 % Platelet Count 221 150 - 400 K/UL MPV 7.5 7 - 11 FL BASIC METABOLIC PANEL CELLULAR THERAPEUTICS Collection Time: 02/04/18 5:54 AM Result Value Ref Range Sodium 139 137 - 147 MMOL/L Potassium 3.6 3.5 - 5.1 MMOL/L Chloride 105 98 - 110 MMOL/L CO2 31 (H) 21 - 30 MMOL/L Anion Gap 3 3 - 12 Glucose 112 (H) 70 - 100 MG/DL Blood Urea Nitrogen 5 (L) 7 - 25 MG/DL Creatinine 1.35 (H) 0.4 - 1.24 MG/DL Calcium 8.4 (L) 8.5 - 10.6 MG/DL eGFR Non 54 (L) >60 mL/min eGFR >60 >60 mL/min DIGOXIN LEVEL Collection Time: 02/04/18 5:54 AM Result Value Ref Range Digoxin 1.0 0.5 - 1.0 NG/ML Point of Care Testing (Last 24 hours) Glucose: (!) 112 (02/04/18 0554) Radiology and other Diagnostics Review: Pertinent radiology reviewed. Ortiz Rashid MD PRESS OPERATOR Associated attestation - Prashanth Lu DO - 02/04/2018 5:13 PM AIR PRESS OPERATOR ATTESTATION I personally performed the gaytan portions of the E/M visit, discussed case with resident and concur with resident documentation of history, physical exam, assessment, and treatment plan unless otherwise noted. Staff name: Prashanth Lu DO Date: 02/04/2018 * Dianne Merlos, CONSTANTIN - 02/04/2018 7:33 AM AIR PRESS OPERATOR Heart Failure Nursing Progress Note Admission Date: 02/02/2018 LOS: 2 days Admission Weight: 75.7 kg (166 lb 12.8 oz) Most recent weights (inpatient): Vitals: 02/02/18 1648 02/03/18 0453 02/04/18 0732 Weight: 75.7 kg (166 lb 12.8 oz) 77.6 kg (171 lb 1.6 oz) 78.3 kg (172 lb 9.9 oz ) Weight change from previous day:+ 0.7 kg Fluid restriction ordered: No Intake/Output Summary: (Last 24 hours) Intake/Output Summary (Last 24 hours) at 02/04/2018 0733 Last data filed at 02/04/2018 0624 Gross per 24 hour Intake 100 ml Output 1265 ml Net -1165 ml Is patient incontinent: No Anticipated discharge date: TBD Discharge goals: Regain strength Daily Assessment of Patient Stated Goals: Short Term Goal Identified by patient: Perform ADL's with less assistance. PRESS OPERATOR * Deepti Camp RN - 02/03/2018 6:45 PM AIR PRESS OPERATOR Heart Failure Nursing Progress Note Admission Date: 02/02/2018 LOS: 1 day Admission Weight: 75.7 kg (166 lb 12.8 oz) Most recent weights (inpatient): Vitals: 02/02/18 1648 02/03/18 0453 Weight: 75.7 kg (166 lb 12.8 oz) 77.6 kg (171 lb 1.6 oz) Weight change from previous day: -1.9 kg Fluid restriction ordered: NA Intake/Output Summary: (Last 24 hours) Intake/Output Summary (Last 24 hours) at 02/03/2018 1846 Last data filed at 02/03/2018 1600 Gross per 24 hour Intake 220 ml Output 1800 ml Net -1580 ml Is patient incontinent: No Anticipated discharge date: TBD Discharge goals: Get stronger Daily Assessment of Patient Stated Goals: Short Term Goal Identified by patient (Short Term=during hospitalization): Get stronger; breathe better. PRESS OPERATOR * Beatriz Ortiz MD - 02/03/2018 12:44 PM AIR PRESS OPERATOR ATTESTATION I personally performed the gaytan portions of the E/M visit, discussed case with resident and concur with resident documentation of history, physical exam, assessment, and treatment plan unless otherwise noted. Please see my H&P for details. Additions/addendums to resident's note highlighted in blue. 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 Darrius Salas is a 62 yo M with PMH of COPD on 2-3L QHS, tobacco use, Afib on Xarelto, CAD s/p PCI (2012) who was originally admitted to rehab with multi- organism PNA after multiple intubations and PEA arrest. He was re-admitted to [facility] for loculated hydropneumothorax and is now s/p chest tube placement and decortication. Patient presents to IRF with critical illness myopathy, generalized weakness, decreased endurance, and impaired mobility and ADLs warranting PT/OT therapies. Rehabilitation Plan Rehabilitation: Patient will continue with comprehensive therapies including physical therapy, occupational therapy, speech & language pathology, specialized rehab nursing, neuropsychology and physiatry oversight. Goals: Mod I to SBA Tentative discharge date: TBD Recommended therapy after discharge: TBD Recommended equipment: TBD Daily Functional Update: Transfers Device Sit to Stand Transfer: Assistive Device: 4-Wheeled Walker (02/03/2018 8:00 AM) No Data Recorded Gait Device Assist Required Distance Gait: Assistive Device: Roller Walker (02/02/2018 11:00 AM) No Data Recorded Gait Distance: 25 feet (+40) (02/02/2018 11:00 AM) Standing Balance Static Dynamic No Data Recorded No Data Recorded Toileting Assist Required Equipment Toilet Transfer Toileting Assist: Moderate Assist (02/03/2018 8:00 AM) Toileting Equipment: Commode - 3 in 1 (02/03/2018 8:00 AM) No Data Recorded Dressing Lower Body LE Dressing Assist: Moderate Assist (02/03/2018 8:00 AM) Critical Illness Myopathy Acute on chronic hypoxic respiratory failure Legionella pneumonia (PNA), invasive necrotizing aspergillosis PNA, HSV & CMV PNA, Proteus Mirabilis PNA Decreased pulmonary reserve Generalized weakness Decreased endurance Impaired mobility and ADLs - Baseline O2 2-3 L QHS, currently tolerating 2L NC - s/p x3 intubation/extubations - s/p PEA arrest (extubated 11/24) - s/p treatment with vancomyin, linezolid, zosyn, valacyclovir, micafungin , valcyte >Consult ID for continuation of care, also consult internal medicine for multisystem disease >Continue antibiotics including IV zosyn, Cresemba 372mg QD; per ID note, will likely be on zosyn for short period of time >Continue aggressive pulmonary hygiene with Aerobika and IS, cough assist >Consult PT/OT Right sided pleural effusion and empyema Loculated hydropneumothorax s/p chest tube x 2 01/22, positive for empyema S/p decortication of pleural effusion 01/[address] Xiao COPD, emphysema Acute on chronic hypoxic respiratory failure - on 2-3L QHS at baseline, currently requiring 2L > Continue maintenance of mini atrium , empty PRN, , no showering while chest tubes in place, call CTS CUSTOMER SALES SERVICE MANAGER/PA if issues > Continue Mucomyst nebulizes Q12H, albuterol nebs BID and PRN >Continue [employer] SOFTWARE ENGINEER Symbicort BID, flonase BID, and anoro ellipta 1 puff QD > Continue guaifenesin LA 600mg BID >Patient will need exercise ox and overnight ox prior to discharge if still requiring o2 > f/u Dr. 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 lasix 60mg BID, digoxin 250mcg QD, Vasotect, Lipitor, will clarify with CTS reasoning) >Continue daily weights, CTM Nausea/vomiting: zofran scheduled with meals, check EKG DEONTE: continue to encourage oral intake, monitor Cr Risk of opioid induced constipation: continue docusate 100mg BID, senna 2 tab QHS Macrocytic anemia, stable, CTM with CBC GERD: PPI Hypomagnesia: continue magnesium replacement Malnutrition: continue boost supplements, vit c, vit D, thiamine Pain Management: oxycodone 5mg Q3H PRN and tylenol 650mg Q4H PRN, can add lidoderm patches Skin: There are no pressure sores currently. Bowel: continent of bowel Bladder: continent of bladder, BVIs x3 until <125ml and ISC for >300ml Nutrition: Current diet: regular with boost plus TID Mental Health: consult neuropsychology to provide support / counseling DVT Prophylaxis: Lovenox} Nela Santoro D.O.,M.B.A. Physical Medicine and Rehabilitation, PGY-2 Pager [phone] Subjective Darrius Salas is a 62 y.o. seen in his room this afternoon. He denies any complaints other than some nausea with eating. Will start scheduling his zofran with meals and monitor for improvement. No other changes today. Tolerating therapy well. Objective Vital Signs: Last Filed Vital Signs: 24 Hour Range BP: 118/70 (02/03 1224) Temp: 36.8 C (98.3 F) (02/03 122) Pulse: 88 (02/03 1224) Respirations: 17 PER MINUTE (02/03 122) SpO2: 95 % (02/03 122) O2 Delivery: Nasal Cannula (02/03 122) Height: 182.9 cm (72") (02/02 1648) BP: (110-142)/(63-83) Temp: [36.7 C (98 F)-37.2 C (98.9 F)] Pulse: [88-112] Respirations: [17 PER MINUTE-18 PER MINUTE] SpO2: [85 %-100 %] O2 Delivery: Nasal Cannula Intensity Pain Scale (Self Report): 5 (02/03/18 8163) Vitals: 02/02/18 1648 02/03/18 0453 Weight: 75.7 kg (166 lb 12.8 oz) 77.6 kg (171 lb 1.6 oz) Intake/Output Summary: (Last 24 hours) Intake/Output Summary (Last 24 hours) at 02/03/2018 1245 Last data filed at 02/03/2018 1023 Gross per 24 hour Intake 220 ml Output 1400 ml Net -1180 ml Stool Occurrence: 1 Last Bowel Movement Date: 02/01/18 Lab: Results for orders placed or performed during the hospital encounter of (from the past 24 hour(s)) CBC CELLULAR THERAPEUTICS Collection Time: 02/03/18 5:43 AM # # Low-High White Blood Cells 10.0 4.5 - 11.0 K/UL RBC 2.16 (L) 4.4 - 5.5 M/UL Hemoglobin 7.3 (L) 13.5 - 16.5 GM/DL Hematocrit 22.2 (L) 40 - 50 % MCV 102.6 (H) 80 - 100 FL MCH 34.0 26 - 34 PG MCHC 33.1 32.0 - 36.0 G/DL RDW 17.4 (H) 11 - 15 % Platelet Count 204 150 - 400 K/UL MPV 7.3 7 - 11 FL BASIC METABOLIC PANEL CELLULAR THERAPEUTICS Collection Time: 02/03/18 5:43 AM # # Low-High Sodium 138 137 - 147 MMOL/L Potassium 3.4 (L) 3.5 - 5.1 MMOL/L Chloride 103 98 - 110 MMOL/L CO2 31 (H) 21 - 30 MMOL/L Anion Gap 4 3 - 12 Glucose 94 70 - 100 MG/DL Blood Urea Nitrogen 6 (L) 7 - 25 MG/DL Creatinine 1.41 (H) 0.4 - 1.24 MG/DL Calcium 8.0 (L) 8.5 - 10.6 MG/DL eGFR Non 51 (L) >60 mL/min eGFR >60 >60 mL/min Physical Exam VS: BP 118/70 (BP Source: Arm, Left Upper) | Pulse 88 | Temp 36.8 C (98.3 F) | Ht 182.9 cm (72") | Wt 77.6 kg (171 lb 1.6 oz) | SpO2 95% | BMI 23.21 kg/m Gen: Alert & Conversant, No Acute Distress, sitting up in chair HEENT: Normocephalic, atraumatic, sclera anicteric, conjunctiva not injected Neck: Supple, no elevated JVP Heart: Regular Rate & Rhythm, No Murmur Lungs: Good inspiratory effort , CTAB, right chest tube in place, 2 L o2 Abdomen: Soft, non-tender, non-distended Skin: Warm, dry Ext: No edema or erythema noted in b/l lower limbs MS: Moves b/l upper extremities against gravity spontaneously Therapy Notes & Labs Reviewed. Nela Santoro D.O.,M.B.A. Physical Medicine and Rehabilitation, PGY-2 Pager [phone] PRESS OPERATOR * Dianne Merlos RN - 02/03/2018 6:17 AM AIR PRESS OPERATOR Heart Failure Nursing Progress Note Admission Date: 02/02/2018 LOS: 1 day Admission Weight: 75.7 kg (166 lb 12.8 oz) Most recent weights (inpatient): Vitals: 02/02/18 1648 02/03/18 0453 Weight: 75.7 kg (166 lb 12.8 oz) 77.6 kg (171 lb 1.6 oz) Weight change from previous day: - 1.9 Kg Fluid restriction ordered: No Intake/Output Summary: (Last 24 hours) Intake/Output Summary (Last 24 hours) at 02/03/2018 0618 Last data filed at 02/03/2018 0549 Gross per 24 hour Intake 120 ml Output 1400 ml Net -1280 ml Is patient incontinent; No Anticipated discharge date: TBD Discharge goals: regain strength Daily Assessment of Patient Stated Goals: Short Term Goal Identified by patient: Perform ADL's independently. PRESS OPERATOR * Flavio Lutz, RT - 02/02/2018 10:01 PM AIR PRESS OPERATOR RT Adult Assessment Note NAME:Darrius Salas :1955 AGE: 62 y.o. ADMISSION DATE: 02/02/2018 DAYS ADMITTED: LOS: 0 days RT Treatment Plan: Protocol Plan: Medications Albuterol: Neb BID Acetylcysteine: Neb BID Protocol Plan: Procedures Vibrating PEP Therapy: BID Oxygen/Humidity: O2 to keep SpO2 > 92% Monitoring: Pulse oximetry BID & PRN Additional Comments: Impressions of the patient: non labored but productive cough Intervention(s)/outcome(s): Patient education that was completed: Recommendations to the care team: monitory secretions consistently Vital Signs: Pulse: Pulse: 112 RR: SpO2: O2 Device: $$ O2 Device: Cannula Liter Flow: O2 Liter Flow: 3 lpm O2%: Breath Sounds: Respiratory Effort: Respiratory Effort: Non-Labored PRESS OPERATOR * Rafa Higgins RN - 02/02/2018 5:42 PM AIR PRESS OPERATOR Patient arrived to room # (6511) via cart accompanied by transport. Patient transferred to the bed with assistance. Bedside safety checks completed. Initial patient assessment completed, refer to flowsheet for details. Admission skin assessment completed by: CONSTANTIN Craig & CONSTANTIN Huang Pressure Injury Present on Hospital Admission (within 24 hours): Yes 1. Occiput: No 2. Ear: Yes; Left; present on admission 3. Scapula: No 4. Spinous Process: No 5. Shoulder: No 6. Elbow: No 7. Iliac Crest: No 8. Sacrum/Coccyx: Yes; present on admission 9. Ischial Tuberosity: No 10. Trochanter: No 11. Knee: No 12. Malleolus: No 13. Heel: No 14. Toes: No 15. Assessed for device associated injury Yes 16. Nursing Nutrition Assessment Completed Yes See Doc Flowsheet for additional wound details. INTERVENTIONS: Ear foam piece placed on nasal cannula to prevent further breakdown of stage II on Left ear. Consult placed for wound team. Pressure relief and criticaid to bottom. PRESS OPERATOR in this encounter H&P Notes * Beatriz Ortiz MD - 02/02/2018 4:30 PM AIR PRESS OPERATOR Physical Medicine & Rehabilitation Post-Admission Physician Evaluation Date of Service: 02/03/2018 Darrius Salas is a 62 y.o. male. : 1955 Insurance: Medicare Date of Admission: 02/02/2018 Rehabilitation Medicine Attending Physician Attestation: I personally performed gaytan portions of the history and exam. I discussed the case with the resident and concur with the resident's documentation of history, physical assessment and treatment plan unless otherwise noted. Additions/ addendums to resident's note highlighted in blue. Current Level of Function: The most recent therapy notes dated 02/02/18 are outlined in the residents H& P. Per rehab nursing, the patient required moderate assist to transfer into bed upon arrival to the rehabilitation unit. Upon my exam, the patient required moderate assist for bed mobility, communication was intact, and ability to follow commands was intact, patient is on 3L NC O2 with audible wheeze, strong cough, chest tubes in place, 2+ pitting edema BLE. Neurologic exam is notable for the following: diffusely weak but more notable proximally, CN intact, sensation intact light touch. Relevant change since pre-admission screening: I have compared this to the Pre-admission Screen, and a summary of my additional findings is above. 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 The patient can participate in and can fully benefit from the services offered in the inpatient rehabilitation facility setting including 24 hour rehabilitation nursing, daily oversight from the Threading Machine Tender, and complex interdisciplinary rehab as noted below. This patients acute medical issues including the following list of active comorbidities and risk of medical complications put them at higher risk for recurrence or hospital readmission without daily physician medical management, which requires an IRF level of care and cannot be met at a lower level of care. Active Comorbidities/Risk of Medical Complications: 1. Acute on Chronic Respiratory Failure: Patient has required a new onset use of oxygen supplementation secondary to acute illness. Patient is at risk for acute respiratory failure, intubation, hypoxemia, and need for supplemental oxygen at home. Continue to monitor and manage. Patient encouraged to ambulate frequently and utilize incentive spirometer every hour while awake. 2. Legionella Pneumonia: Will have infectious Disease continue to manage while on rehab unit. 3. Anemia: Will need to monitor and manage, as this may negatively impact patient's endurance with therapy. 4. Leukocytosis: Patient is at risk for SIRS, sepsis and needs daily physician monitoring and management of acute illness. Will continue to monitor and manage. 5. Pain: There is a risk of uncontrolled pain, risk of failure to participate in therapies, and risk of sedation due to pain medications. This will require daily medication adjustments to find the balance between meaningful participation in therapies and pain control, avoid the potential for addiction, while facilitating the rehabilitation for their condition. Will continue to monitor and adjust medication regimen in order to maximize pain relief. 6. CKD: Patient is at risk for worsening of renal disease, acute renal failure, electrolyte and metabolic derangement, and needs daily physician monitoring of labs and volume status. Will continue to monitor and manage, as this may affect patient's ability to tolerate therapies. 7. Atrial fibrillation: Patient is at risk for recurrent 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 with RVR, other tachyarrhythmias, embolism, and stroke. Will continue to monitor and manage. 8. CHF: Patient is at risk for volume overload, acute respiratory failure, over diuresis, and other cardiac events. Ongoing assessment of patient's respiratory and volume status, especially during therapies. Check daily weights while in rehab. 9. COPD: Patient is at risk for dyspnea, increased work of breathing, increased oxygen needs, and acute respiratory failure. Ongoing assessment of patient's respiratory status, especially during therapies and use supplemental O2 as needed. Continue inhalers/nebulizer treatments per RT. 10. Hypertension: Patient is at risk for hyper/hypotension during aggressive mobilization program with therapies, and requires daily physician monitoring and adjustment of medications. Will continue to monitor and manage for optimal blood pressure control and resume home medications as able. 11. Hyperlipidemia: Will continue to monitor and manage, and adjust medications as needed. Please see resident's note below for detailed management of medical comorbidities. Prior Level of Function Self-Care/ADLs:Independent with homemaking w/ ambulation;Independent with ADLs and functional transfers Mobility: Independent Mobility in Community without Device Work/Personal Responsibilities/Hobbies: On disability Home Environment: Home Situation: Lives with Family (12/30/2017 10:00 AM) Patient Owned Equipment: None (12/30/2017 10:00 AM) Type of Home: House (12/30/2017 10:00 AM) Entry Stairs: 3-5 Stairs;Rail on 1 Side (12/30/2017 10:00 AM) In-Home Stairs: Able to Live on One Level (12/30/2017 10:00 AM) Comments: Family is planning to build a bathroom on main level of home. (2017 10:00 AM) Support System: Spouse, Rachel (retired); sons and [id number] Other DME: CPAP Rehabilitation Plan Patient will receive Physical therapy and Occupational therapy each 90 minutes a day , 5 days a week for a total of 3 hours daily (minimum) for the duration of the rehabilitation stay within an interdisciplinary rehabilitation program with case consultant/pediatric social worker, senior sales operations manager, neuropsychologist, rehab nursing and PM&R oversight. Rehabilitation Prognosis: Fair to Good Medical Prognosis: The patient is deemed medically stable to tolerate, benefit from, and participate in [facility] level services. Tolerance for three hours of therapy a day: Good Patient has participated well with therapies which started on 01/26/2018 in the acute care setting and is anticipated to tolerate 3 hours of therapy per day, as required. Goals/Barriers/Facilitators Family / Patient Goals: return home with family assistance Mobility Goals: Overall goal is Modified independent and Physical Therapy will evaluate and treat ambulation/wheelchair use and bed transfers Activities of Daily Living (ADLs) Goals: Overall goal is Stand by assistance to Modified Independent and Occupational therapy will evaluate and treat basic Activities of Daily Living Cognition / Communication Goals: Cognition grossly intact and Speech intact Barriers &Interventions: Caregiver Apprehension: Arrange caregiver support and discuss barriers and patient progress with caregivers when appropriate. Functioning at Wheelchair Level: Adaptive equipment, create wide,/clear paths, home modifications, alternative transportation arrangements, vehicle modifications, pursue home ramp access, and remove home obstacles. [place] of Care: Initiate interdisciplinary rehabilitation to improve functional independence and reduce burden of care. Home Accessibility: Work with family to obtain home measurements of doorways, bathroom access, and stair set-up to plan for appropriate adaptive equipment and home modifications as necessary. Inaccessible Transportation: Alternative transportation arrangements and/or vehicle modifications. MedicationEducation: Pharmacist and nursing staff to provide education to patient and family regarding medication side effects, special precautions, and safe administration. Poor Strength / Endurance: Patient will continue to work with intense physical and occupational therapy to gain strength and endurance for a safe discharge to home. Facilitators: good family / social support, patient motivation and improving medical condition Discharge Planning Expected Length of Stay:14-21days, longer anticipate length of stay based on severe weakness, reduce pulmonary reserve, reduced endurance, prolonged and complicated hospitalization Expected Discharge Disposition:Home Expected Discharge Needs:PT and OT at the outpatient level of care. Patient will likely benefit from a shower chair/tub transfer bench, handheld shower head to improve patient safety and decrease risk for falls. Patient will be evaluated by physical and occupational therapy for most appropriate equipment recommendations. The patient should reach their current goals by projected discharge date. Additional therapeutic disciplines may be included during this stay if indicated during interdisciplinary communication and will be noted in the daily progress notes when relevant. Social Work will address discharge planning needs. The patient was seen within 24 hours of admission to the inpatient rehabilitation unit. The patient was seen on 02/03/2018 at 10:00 AM/PM. Beatriz Ortiz MD Physical Medicine & Rehabilitation History & Physical Note Date of Service: 02/02/2018 Darrius Salas is a 62 y.o. male. : 1955 Primary Insurance: MEDICARE Secondary Insurance: [place] Tertiary Insurance: Financial Class: Medicare Date of Admission: 02/02/2018 Precautions: Fall, . Weight bearing Precautions: None Active Problems Principal Problem: Critical illness myopathy Active Problems: CHF (congestive heart failure) ([facility]) CAD (coronary artery disease) Paroxysmal 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 ([facility]) longterm current use of anticoagulant COPD (chronic obstructive pulmonary disease) ([facility]) HTN (hypertension) HLD (hyperlipidemia) S/P ablation of 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 Pneumonia Cytomegalovirus (CMV) viremia ([facility]) Impaired mobility and activities of daily living Loculated pleural effusion Acute on chronic respiratory failure with hypoxia and hypercapnia ([facility]) 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 male admitted to [facility] on 02/02/2018 with the following issues: Critical Illness Myopathy Impairments: pain, poor activity tolerance and weakness Activity Limitations: bathing, dressing - upper, dressing - lower, transfers, ambulation and stairs Participation Restrictions: unable to return home safely Rehabilitation Plan Patient will be admitted to inpatient rehabilitation for comprehensive therapies to include Physical therapy and Occupational therapy Rehabilitation Prognosis: Good . Tolerance for three hours of therapy a day: Good Goals/Barriers/Facilitators Family / Patient Goals: return home with family assistance Mobility Goals: Overall goal is Stand by assistance and Physical Therapy will evaluate and treat ambulation/wheelchair use and bed transfers Activities of Daily Living (ADLs) Goals: Overall goal is Stand by assistance and Occupational therapy will evaluate and treat basic Activities of Daily Living Cognition / Communication Goals: Cognition grossly intact and Speech intact Barriers & Interventions: [place] of Care: Initiate interdisciplinary rehabilitation to improve functional independence and reduce burden of care. Poor Strength / Endurance: Patient will continue to work with intense physical and occupational therapy to gain strength and endurance for a safe discharge to home. Facilitators: good family / social support, patient motivation, improving strength / endurance and improving medical condition Current Medical Problems/Risks of Medical Complications/Management Hospital problems and plan: Mr. Darrius Salas is a 62 yo M with PMH of COPD on 2-3L QHS, tobacco use, Afib on Xarelto, CAD s/p PCI (2012) who was originally admitted to rehab with multi- organism PNA after multiple intubations and PEA arrest. He was re-admitted to [facility] for loculated hydropneumothorax and is now s/p chest tube placement and decortication. Patient presents to IRF with critical illness myopathy, generalized weakness, decreased endurance, and impaired mobility and ADLs warranting PT/OT therapies. Critical Illness Myopathy Acute on chronic hypoxic respiratory failure Legionella pneumonia (PNA), invasive necrotizing aspergillosis PNA, HSV & CMV PNA, Proteus Mirabilis PNA Decreased pulmonary reserve Generalized weakness Decreased endurance Impaired mobility and ADLs - Baseline O2 2-3 L QHS, currently tolerating 2L NC - s/p x3 intubation/extubations - s/p PEA arrest (extubated 11/24) - s/p treatment with vancomyin, linezolid, zosyn, valacyclovir, micafungin , valcyte >Consult ID for continuation of care, also consult internal medicine for multisystem disease >Continue antibiotics including IV zosyn, Cresemba 372mg QD; per ID note, will likely be on zosyn for short period of time >Continue aggressive pulmonary hygiene with Aerobika and IS, cough assist >Consult PT/OT Right sided pleural effusion and empyema Loculated hydropneumothorax s/p chest tube x 2 01/22, positive for empyema S/p decortication of pleural effusion 01/[address] Xiao COPD, emphysema Acute on chronic hypoxic respiratory failure - on 2-3L QHS at baseline, currently requiring 2L > Continue maintenance of mini atrium , empty PRN, no showering while chest tubes in place, call CTS CUSTOMER SALES SERVICE MANAGER/PA if issues > Continue Mucomyst nebulizes Q12H, albuterol nebs BID and PRN > Continue SENIOR NET SOFTWARE ENGINEER Symbicort BID, flonase BID, and anoro ellipta 1 puff QD > Continue guaifenesin LA 600mg BID >Patient will need exercise ox and overnight ox prior to discharge if still requiring o2 > f/u Dr. 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 tube > Continue metoprolol 12.5mg BID > 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 lasix 60mg BID, digoxin 250mcg QD, Vasotect, Lipitor, (will clarify with CTS reasoning) >Continue daily weights, CTM Nausea/vomiting: zofran PRN for now, may schedule with meals if no better DEONTE: continue to encourage oral intake, monitor Cr Risk of opioid induced constipation: continue docusate 100mg BID, senna 2 tab QHS Macrocytic anemia, stable, CTM with CBC GERD: PPI Hypomagnesia: continue magnesium replacement Malnutrition: continue boost supplements, vit c, vit D, thiamine Pain Management: oxycodone 5mg Q3H PRN and tylenol 650mg Q4H PRN, can add lidoderm patches Skin: There are no pressure sores currently. Bladder: continent of bladder, BVIs x3 until <125ml and ISC for >300ml Nutrition: Current diet: regular with boost plus TID Mental Health: consult neuropsychology to provide support / counseling DVT Prophylaxis: Uyen Santoro D.O., M.B.A. Physical Medicine and Rehabilitation, PGY-2 Pager [phone] History of Present Illness Hospital Course: Mr. Darrius Salas is a 62 yo M with PMH COPD on 2-3L QHS, tobacco use, afib on xarelto, CAD s/p PCI (2012) who presented from OSH 11/13/17 in acute on chronic respiratory failure 2/2 legionella PNA with inability to wean off vent. OSH course complicated by septic shock, acute on chronic respiratory failure requiring intubation x2, afib with RVR s/p failed cardioversion. While at , with assistance from ID and pulmonary teams, patient was treated for Legionella , Tamar Glabrata, necrotizing aspergillosis PNA. His hospital course was complicated by PEA arrest with resulting broken sternum, repeated intubation, volume overload, dysphagia requiring PEG placement, thoracentesis s/p chest tube placement. He presented to rehab 12/31-01/21 but was discharged back to hospital for decompensating condition and new findings on CT. At that time, patient wastransferred to the MICU with 3/4 SIRs criteria. CTS consulted for CT placement in setting of Rt loculated pneumothorax with effusion at base and Lt sided emphysema w/ bullae on CT chest. ID continued to follow with abx therapy management. Rt CT X2 placed on 01/22. On 01/28, the patient underwent a decortication of the right lung in the setting of loculated pleural effusion ( persistent). He now has an atrium express mini 500 which is arightpleural drain to water seal. His hospital course was complicated by pain, anemia, impaired mobility and activities of daily living. Today patient feels much better, still has pain with coughing but improved. He denies F/C. Reports exertional CP. Also reports ongoing nausea without diarrhea or constipation. Food just does not taste good and once he eats he immediately feels sick. Discussed ongoing treatment of this when comes to rehabilitation. Continent of urine and bowel. He is very motivated to be back at rehab and is looking forward to gaining back his strength. Past Medical History Past Medical History: Diagnosis Date AF (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) ([facility]) 08/15/2012 CAD (coronary artery disease) 08/15/2012 CHF (congestive heart failure) ([facility]) 08/15/2012 COPD (chronic obstructive pulmonary disease) ([facility]) 08/15/2012 HLD (hyperlipidemia) 08/15/2012 HTN (hypertension) 08/15/2012 LA thrombus 08/15/2012 intermodal customer service current use of anticoagulant 08/15/2012 S/P ablation of 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 05/04/2013 05/04/13 A fib ablation by Dr. Godfrey. Past Surgical History Past Surgical History: Procedure Laterality Date CARDIOVERSION CORONARY STENT PLACEMENT Family\\Social History Social History Socioeconomic History Marital status: Spouse name: Not on file Number of children: Not on file Years of education: Not on file Highest education level: Not on file Occupational History Not on file Tobacco Use Smoking status: Former Smoker Packs/day: 2.00 Years: 30.00 Pack years: 60.00 Types: Cigarettes Last attempt to quit: 11/30/2017 Years since quittin.1 Smokeless tobacco: Former User Types: Chew Tobacco comment: down to 1/4 pack /day or less Substance and Sexual Activity Alcohol use: Yes Comment: 6 per week; prior reported as 6-pack per day Drug use: No Sexual activity: Not on file Other Topics Concern Not on file Social History Narrative Not on file Family history reviewed; non-contributory Medications: Current Facility-Administered Medications: acetaminophen (TYLENOL) tablet 650 mg, 650 mg, Oral, Q4H PRN, Nela Santoro MD acetylcysteine (MUCOMYST) 200 mg/mL (20 %) nebulizer solution 3 mL, 3 mL, Inhalation, Q12H, Nela Santoro MD albuterol 0.5% (PROVENTIL; VENTOLIN) nebulizer solution 2.5 mg, 2.5 mg, Inhalation, BID & PRN, Nela Santoro MD alteplase (CATHFLO ACTIVASE) injection 2 mg, 2 mg, Intra-catheter, BID PRN , Nela Santoro MD aluminum/magnesium hydroxide (MAALOX) oral suspension 30 mL, 30 mL, Oral, Q4H PRN, Nela Santoro MD [START ON 02/03/2018] ascorbic acid (VITAMIN C) tablet 500 mg, 500 mg, Oral , QDAY, Nela Santoro MD bisacodyl (DULCOLAX) rectal suppository 10 mg, 10 mg, Rectal, QDAY PRN, Nela Santoro MD [START ON 02/03/2018] cholecalciferol (VITAMIN D-3) tablet 400 Units, 400 Units, Oral, QDAY, Nela Santoro MD [START ON 02/03/2018] digoxin (LANOXIN) tablet 125 mcg, 125 mcg, Oral, QDAY , Nela Santoro MD docusate (COLACE) capsule 100 mg, 100 mg, Oral, BID, Nela Santoro MD [START ON 02/03/2018] enoxaparin (LOVENOX) syringe 40 mg, 40 mg, Subcutaneous, QDAY, Nela Santoro MD [START ON 02/03/2018] fluticasone (FLONASE) nasal spray 2 spray, 2 spray, Each Nostril, QDAY, Nela Santoro MD guaiFENesin LA (MUCINEX) tablet 600 mg, 600 mg, Oral, BID, Nela Santoro MD isavuconazonium sulfate (CRESEMBA) capsule 372 mg, 372 mg, Oral, QDAY(21), Nela Santoro MD [START ON 02/03/2018] lidocaine (LIDODERM) 5 % topical patch 1-2 patch, 1- 2 patch, Topical, QDAY, Nela Santoro MD magnesium oxide (MAG-OX) tablet 400 mg, 400 mg, Oral, BID, Nela Santoro MD metoprolol tartrate (LOPRESSOR) tablet 12.5 mg, 12.5 mg, Oral, BID, Nela Santoro MD milk of magnesia (CONC) oral suspension 10 mL, 10 mL, Oral, Q4H PRN, Nela Santoro MD ondansetron (ZOFRAN) tablet 4 mg, 4 mg, Oral, Q6H PRN, Nela Santoro MD oxyCODONE (ROXICODONE, OXY-IR) tablet 5 mg, 5 mg, Oral, Q3H PRN, Nela Santoro MD [START ON 02/03/2018] pantoprazole DR (PROTONIX) tablet 40 mg, 40 mg, Oral , QDAY(21), Nela Santoro MD piperacillin/tazobactam (ZOSYN) 3.375 g in sodium chloride 0.9% (NS) 100 mL IVPB (MB+), 3.375 g, Intravenous, Q6H*, Nela Santoro MD polyethylene glycol 3350 (MIRALAX) packet 17 g, 1 packet, Oral, BID, Nela Santoro MD senna (SENOKOT) tablet 2 tablet, 2 tablet, Oral, QHS, Nela Santoro MD [START ON 02/03/2018] sodium chloride PF 0.9% flush 30 mL, 30 mL, Intravenous, FLUSH TID, Nela Santoro MD [START ON 02/03/2018] thiamine mononitrate tablet 100 mg, 100 mg, Oral, QDAY, Nela Santoro MD umeclidinium-vilanterol (ANORO ELLIPTA) 62.5-25 mcg/actuation inhaler 1 puff, 1 puff, Inhalation, Maude JEREZ Lauren, MD [START ON 02/03/2018] vitamin A & D topical ointment, , Topical, Maude JEREZ Lauren, MD [START ON 02/03/2018] vitamins, multi w/minerals tablet 1 tablet, 1 tablet , Oral, JOLLYAYMaude Lauren, MD Allergies: No Known Allergies Prior Level of Function Self-Care/ADLs: Independent at home and independent with ADLs Mobility: Independent w/o device Work/Personal Responsibilities/Hobbies: On disability Home Environment Home Situation: Lives with Family (01/27/2018 10:00 AM) Patient Owned Equipment: None (12/30/2017 10:00 AM) Type of Home: House (02/02/2018 3:00 PM) Entry Stairs: 3-5 Stairs (5, family arranging for handrail to be added this week ) (01/27/2018 10:00 AM) In-Home Stairs: Able to Live on One Level (family arranging for addition of shower to main level bathro) (01/27/2018 10:00 AM) Comments: Patient reports he was able to ambulate from his room on rehab to the gym with 4 wheeled walker. He reports he was also working on stairs. (2017 1:00 PM) No Data Recorded Other DME: CPAP at home Support System: Spouse Jojo is retired, sons and daughter in laws Current Level of Function Physical Therapy: 02/02/18 "Bed Mobility/Transfers Bed Mobility: Supine to Sit: Standby Assist;Use of Rail;Requires Extra Time; Safety Considerations Transfer Type: Sit to/from Stand Transfer: Assistance Level: From;Bed;To;Bed Side Chair;Minimal Assist Transfer: Assistive Device: Roller Walker Transfers: Type Of Assistance: Elevated Bed;For Strength Deficit;For Safety Considerations Other Transfer Type: Sit to/from Stand Other Transfer: Assistance Level: Moderate Assist(to/from low couch) Other Transfer: Assistive Device: Roller Walker Other Transfer: Type Of Assistance: For Strength Deficit;For Safety Considerations End Of Activity Status: Up in Chair;Instructed Patient to Request Assist with Mobility Gait Gait Distance: 25 feet(+40) Gait: Assistance Level: Minimal Assist;Management of Lines;Safety Considerations Gait: Assistive Device: Roller Walker Gait: Descriptors: Pace: Slow;Decreased step length Activity Limited By: Complaint of Fatigue;Weakness" Occupational Therapy: 02/02/18 "ADL's Where Assessed: Edge of Bed;Chair LE Dressing Assist: Stand By Assist LE Dressing Deficits: Don/Doff R Sock;Don/Doff L Sock;Increased Time To Complete (crossover technique in chair) Functional Transfer Assist: Moderate Assist(sit <> stands, contact guard with roller walker) Functional Transfer Deficits: Steadying;Verbal Cueing;Supervision/Safety; Increased Time to Complete Activity Tolerance Endurance: 3/5 Tolerates 25-30 Minutes Exercise w/Multiple Rests Sitting Balance: 4/5 Moves/Returns Trunkal Midpoint 1-2 Inches in Multiple Planes Cognition Overall Cognitive Status: WFL to Adequately Complete Self Care Tasks Safely" Speech Therapy: n/a Review of Systems A 14 point review of systems was negative except for: pertinent positives listed in HPI Physical Exam BP: 142/83 (02/03 1648) Temp: 36.7 C (98 F) (02/03 1648) Pulse: 102 (02/03 1648) Respirations: 18 PER MINUTE (02/03 1648) SpO2: 93 % (02/03 1648) O2 Delivery: Nasal Cannula (02/03 1648) Height: 182.9 cm (72") (02/03 1648) Body mass index is 22.62 kg/m. Gen: Alert & Oriented X 3, No Acute Distress HEENT: NCAT, PERRL, EOMI, MMM Neck: Supple, no elevated JVP Heart: Regular Rate & Rhythm, no m/g/r Lungs: Clear to auscultation bilaterally, upper airway sounds, right chest tube in place, serous drainage, on 2L NC Abdomen: Soft, non-tender, non-distended, +BS Skin: Bruising in multiple stages of healing throughout Ext: 1+ pitting edema in b/l LE MS: Root Right Left Shoulder Abduction C5 4 4 Elbow Flexion C5 4 4 Elbow Extension C7 4 4 Wrist Extension C6 5 5 Finger Flexion C8 5 5 Finger Abduction T1 5 5 Hip Flexion L2 3 3 Knee Flexion L5/S1 4 4 Knee Extension L3 4 4 Dorsiflexion L4 4 4 Plantarflexion S1 4 4 EHL Extension L5 4 4 Neuro: Cranial Nerves Cranial Nerves 2-12 are grossly intact DTR's No hyperreflexia noted Rapid Alternating Movements Normal Upper Extremity Tone Normal Lower Extremity Tone Normal Upper Extremity Sensation Intact to light touch bilaterally Lower Extremity Sensation Intact to light touch bilaterally Clonus Negative Bilaterally Proprioception Intact Bilaterally Memory/Cognition/Speech Memory intact, speech fluent, non-apshasic Intake/Output Summary: No intake or output data in the 24 hours ending 02/02/18 1720 Stool Occurrence: 1 (02/01/2018 12:00 PM) Last Bowel Movement Date: 02/01/18 (02/02/2018 8:00 AM) Bladder Scan (mL): 245 milliliters (11/22/2017 4:30 PM) No Data Recorded No Data Recorded No Data Recorded Oral Diet Order: Regular (02/02/2018 2:00 PM) Basic Metabolic Profile Lab Results Component Value Date/Time NA 140 02/02/2018 04:39 AM K 3.9 02/02/2018 04:39 AM CA 8.2 (L) 02/02/2018 04:39 AM CL 108 02/02/2018 04:39 AM CO2 28 02/02/2018 04:39 AM Lab Results Component Value Date/Time BUN 7 02/02/2018 04:39 AM CR 1.40 (H) 02/02/2018 04:39 AM GLU 103 (H) 02/02/2018 04:39 AM CBC w diff Lab Results Component Value Date/Time WBC 11.1 (H) 02/02/2018 04:39 AM RBC 2.26 (L) 02/02/2018 04:39 AM HGB 7.7 (L) 02/02/2018 04:39 AM HCT 23.2 (L) 02/02/2018 04:39 AM MCV 102.5 (H) 02/02/2018 04:39 AM MCH 33.9 02/02/2018 04:39 AM RDW 18.0 (H) 02/02/2018 04:39 AM PLTCT 218 02/02/2018 04:39 AM MPV 7.4 02/02/2018 04:39 AM Lab Results Component Value Date/Time NEUT 87 (H) 02/02/2018 04:39 AM ANC 9.70 (H) 02/02/2018 04:39 AM LYMA 9 (L) 02/02/2018 04:39 AM ALC 1.00 02/02/2018 04:39 AM YOGI 3 (L) 02/02/2018 04:39 AM AMC 0.30 02/02/2018 04:39 AM EOSA 0 02/02/2018 04:39 AM AEC 0.00 02/02/2018 04:39 AM BASA 1 02/02/2018 04:39 AM ABC 0.10 02/02/2018 04:39 AM Radiology: - CT chest 01/25/2018: Significant overall improvement in the moderate loculated hydropneumothorax after placement of 2 pleural drains. Persistent extensive right lung consolidation compatible with pneumonia and/or atelectasis. - 02/02/18 CXR: 1. Similar diffuse right lung and patchy left lung opacities likely multifocal infection. 2. Stable right pleural effusion without definite pneumothorax. Previously visualized air-fluid levels not well seen. PRESS OPERATOR in this encounter Consult Notes * India Santillan, PhD - 02/03/2018 8:12 PM AIR PRESS OPERATOR Associated Order(s): CONSULT NEUROREHABILITATION PSYCHOLOGY Neurorehabilitation Psychology [id number] Pt was seen b/s for initial eval with no family or significant others present. 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 Diagnosis: F43.23 Adjustment disorder with depressed and anxious mood Requesting Physician: Ginger Reason for Request: Coping with 90 days in hospital Relevant History: The following history was taken from available medical records unless otherwise indicated. Pt is a 62 y.o., , male, RH transferred from OSH 11/13/17 in acute on chronic respiratory failure 2/2 legionella PNA with inability to wean off vent. OSH course complicated by septic shock, acute on chronic respiratory failure requiring intubation x2, afib with RVR s/p failed cardioversion. While at , with assistance from ID and pulmonary teams, patient was treated for Legionella, Tamar Glabrata, necrotizing aspergillosis PNA. His hospital course was complicated by PEA arrest with resulting broken sternum, repeated intubation, volume overload, dysphagia requiring PEG placement, thoracentesis s/p chest tube placement. He presented to IR[facility] 12/31/17-01/21/18 but was discharged back to hospital for decompensating condition and new findings on CT. At that time, patient was transferred to the MICU with 3/4 SIRs criteria. CTS consulted for CT placement in setting of Rt loculated pneumothorax with effusion at base and L sided emphysema w/ bullae on CT chest. ID continued to follow with abx therapy management. Rt CT X2 placed on 01/22/18. On 01/28/18, the patient underwent a decortication of the right lung in the setting of loculated pleural effusion ( persistent). He now has an atrium express mini 500 which is arightpleural drain to water seal. His hospital course was complicated by pain, anemia, impaired mobility and activities of daily living. On 02/02/2018, pt was transferred to inpatient rehab for continued acute medical management, nursing cares, and comprehensive therapies. Medical/Surgical History/Family History/Social/Vocational History: Please refer to prior report dated 01/03/18. Findings: Pt was alert, oriented, and open/responsive to inquiry. Pt appeared to appropriately provide details regarding personal history, and no significant others were present to provide collateral information. Pt appeared to put forth adequate effort and was cooperative. Speech was soft, and thought processes were connected and logical to content of conversation. Eye contact was within social norms and non-verbal behaviors were appropriate to context. Mood and affect were congruent and euthymic. Pts reported mood was okay and pt did not endorse pervasive negative mood, suicidal ideation, or thoughts of harm toward self or others. Sleep was rated as fair with no reported history of sleep difficulty. Appetite was rated as fair and pt did not report nausea or vomiting, although he reported significant stomach pain. Pt did not report changes in cognition since the last admission. Pt reported using naps as coping or relaxation strategies and has hobbies of golfing and reading. Pt cited goals of wanting to be discharged. Screening for anxiety symptomology was mild (MIRANDA-7=5), and pt endorsed symptoms over the last 2 weeks including difficulty relaxing, restlessness, and irritability or becoming easily annoyed for several days or nearly every day. Compared to 01/03/18, pts endorsement of anxiety symptoms has increased (MIRANDA- 7=2). Mood screening for depressive symptomology was mild (PHQ-9=5) with pt endorsing symptoms over the last 2 weeks including of fatigue, poor appetite, and feelings of low self worth for several days or nearly every day. Compared to , pts endorsement of depressive symptoms has increased (PHQ-9=3). He attributed the increase in symptoms on both screens to be due to his hospitalization for the past 95 days. Pt was provided with eval results and psychoeducation regarding cognition, pain , stress management, the cognitive-behavioral model, mood, and coping; and he was open/receptive to feedback. Supportive and processing therapy was provided. Pt's coping skills, personal strengths, and goals/motivators were reviewed and reinforced. Coping/relaxation skills of relaxed breathing were introduced and practiced with the pt. Pt was encouraged to use these as needed, as well as to engage in pleasant and relaxing activities as able for stress management. Pt acknowledged information and willingness to try skills as needed or as prompted by staff. The intent and utility of testing was relayed, and pt agreed to participate as needed. The purpose and method of the neurorehabilitation psychology service, as well as the limits of confidentiality, were described to the pt. The pt verbalized understanding and agreement to participate in the evaluation. Rehabilitation Recommendations: 1. Pt's cognition, mood, coping, and pain management will be monitored with treatment initiated as indicated. 2. Pt and family will be provided with feedback and education as appropriate. 3. Pt may benefit from reminders or cues to use coping strategies such as relaxed breathing or visualization. Expected Outcomes: 1. Pt will participate appropriately in rehabilitation therapy services. 2. Pt will likely require assistance at home to be provided by family. Thank you for asking our advice and opinion regarding the care of this pleasant pt. Beck Gutierrez Psy.D.. Neurorehabilitation Psychology Postdoctoral Fellow Pager #: [phone] ATTESTATION: I discussed this session and pt's care with the fellow and agree with his report and POC as amended (in blue) above. Thank you for asking our assistance. We will continue to follow. Winston Santillan, PhD, ABPP PRESS OPERATOR * Patrica Zapien - 02/03/2018 3:29 PM AIR PRESS OPERATOR Associated Order(s): CONSULT DIETITIAN CLINICAL NUTRITION Clinical Nutrition Assessment Summary NAME:Darrius Salas :1955 AGE: 62 y.o. ADMISSION DATE: 02/02/2018 DAYS ADMITTED: LOS: 1 day Nutrition Assessment of Patient: BMI Categories Adult: Acceptable: 18.5-24.9 Malnutrition Assessment: Does not meet criteria(at risk for if intakes remain poor) Current Oral Intake: Inadequate Estimated Calorie Needs: 5855-0224(25-30kcal/kg of 74kg ) Estimated Protein Needs: 89-104(1.2-1.4g/kg of 74kg) Oral Diet Order: Regular Oral Supplement: Boost Plus, TID, With Meals Comments: Pt readmitted to rehab following acute admit for loculated hydropneumothorax s/ p chest tube and decortication 01/28. PMH of COPD, HTN, HLD, CAF, CHF and afib. Pt reports continued nausea over the past 4-5 days, continued altered taste, and poor appetite; zofran with meals. Pt is only eating 20-25% of meals, but is supplementing with Boost drinks and other liquids (jello, austrian ice). He has been able to maintain his weight x 1 month (mid-160s). Current wt of 171# and noted pitting 2+ edema. Original report in December of UBW of 175#. New stage 3 pressure injury to ear. Additional stage 1 pressure injuries to coccyx and BLT buttocks; MVI, Vit C ordered. Last BM 02/03; bowel meds noted. Revisited smoothie options in rehab. Pt would like to continue only liquids for awhile until nausea settles down and is interested in smoothies. He remains motivated to eat something and is always receptive to recommendations. Encouraged continued use of other liquids as needed (i.e. Cartons of Boost, jello, austrian ice). Recommendation: Continue current diet order. Offer protein smoothies for meals, additional supplements PRN. RD ordered Zn x 14 days for wound healing. Intervention / Plan: Discussed supplement options; modified order Monitor PO intake, wt, labs, skin, gi, meds, fluids Nutrition Diagnosis: Inadequate oral intake Etiology: nausea, poor appetite, altered taste Signs & Symptoms: pt report, food recall Goals: Patient to consume >50% of meals/supplements Time Frame: Within [address], LD *[id number] PRESS OPERATOR * Mallory Diane RN - 02/03/2018 12:45 PM AIR PRESS OPERATOR Associated Order(s): CONSULT WOUND/OSTOMY TEAM NURSE Wound Ostomy Nursing Consult Service NAME:Darrius Salas :1955 AGE: 62 y.o. 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 COPD (chronic obstructive pulmonary disease) ([facility]) HTN (hypertension) HLD (hyperlipidemia) S/P ablation of 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 Pneumonia Cytomegalovirus (CMV) viremia ([facility]) Impaired mobility and activities of daily living Loculated pleural effusion Acute on chronic respiratory failure with hypoxia and hypercapnia ([facility]) Pulmonary aspergillosis invasive type (HCC) COPD, severe (HCC) Secondary spontaneous pneumothorax Legionella pneumonia (HCC) Atrial fibrillation with RVR ([facility]) Empyema of right pleural space ([facility]) Pressure Injury 02/02/18 173 Yes Left Ear Stage 3 (Active) 02/02/18 173 Pressure Injury Present On Inpatient Admission: Y Pressure Injury Orientation: Left Wound Location: Ear Pressure Injury Stages: Stage 3 If this pressure injury is suspected to be device related, please select the device:: Wound Dressing Status None 02/03/2018 12:45 PM Wound Dressing and / or Treatment See Recs Below 02/03/2018 12:45 PM Wound Drainage Description Serous 02/02/2018 5:34 PM Wound Drainage Amount None 02/03/2018 12:45 PM Wound Base Assessment Moist;Pale;[place] 02/03/2018 12:45 PM Surrounding Skin Assessment Dry;Intact;Red 02/03/2018 12:45 PM Wound Status (Wound Team Only) Being Treated 02/03/2018 12:45 PM Wound Length (cm) 0.4 cm 02/03/2018 12:45 PM Wound Width (cm) 0.3 cm 02/03/2018 12:45 PM Wound Depth (cm) 0.1 cm 02/03/2018 12:45 PM Wound Surface Area (cm^2) 0.12 cm^2 02/03/2018 12:45 PM Wound Volume (cm^3) 0.01 cm^3 02/03/2018 12:45 PM Pt with Stage 3 pressure injury on left ear r/t oxygen tubing. Pt reports burning pain at site. Skin around wound is intact and blanchable. RECOMMEND: Ears - - Contact RT for foam offloading devices for oxygen tubing. - Assess fit of tubing and adjust accordingly to prevent tension on ears. - Consider application of Bacitracin ointment to wound BID. This will require order from primary team. Coccyx/Buttocks - Our consult service addresses Stage 2 and greater pressure injuries as this indicates tissue loss and/or tissue has occurred. These pressure injuries were not assessed at this time. Please implement recommendations listed below and place new consult if pressure injury progresses to Stage 2 or greater despite consistent implementation of recs. - Apply [employer] barrier cream BID and PRN to protect skin from moisture related to urine/stool. - Avoid briefs if possible and use only one disposable pad at at time underneath pt to prevent heat and moisture trapping against skin. - Implement q2 hr turning schedule using foam wedge for support. Encourage and assist pt to shift weight on hips q15-30 minutes when out of bed to chair. - HOB less than or equal to 30 degrees, unless contraindicated, to prevent shearing at coccyx/sacrum. Assess Stage 1 pressure injuries for intact skin and blanchable redness. This would indicate damage has resolved and wound can be completed. Our service will sign off at this time. Thank you. Mallory Diane RN, BSN, [facility] Wound/Ostomy Nursing Consult Service Office: [phone] Pager: [phone] Wound/Ostomy Team Pager (After Hours/Weekends): [phone] PRESS OPERATOR * Caryn Farah MD - 02/03/2018 11:15 AM AIR PRESS OPERATOR Associated Order(s): CONSULT INFECTIOUS DISEASES PHYSICIAN Infectious disease initial consult Note Admission Date: 02/02/2018 LOS: 1 day Reason for Consult: Invasive aspergillosis Consult type: Opinion with orders Active Hospital Problems Diagnosis Critical illness myopathy Atrial fibrillation with RVR (HCC) Empyema of right pleural space (HCC) Acute on chronic respiratory failure with hypoxia and hypercapnia (HCC) Pulmonary aspergillosis invasive type (HCC) COPD, severe (HCC) Secondary spontaneous pneumothorax Legionella pneumonia (HCC) Loculated pleural effusion Cytomegalovirus (CMV) viremia (HCC) Impaired mobility and activities of daily living Pneumonia S/P ablation of 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 05/04/[address] ablation [address] Godfrey. CHF (congestive heart failure) (HCC) CAD (coronary artery disease) 03/18/2012 - Cardiac Catheterization: PTCA and PCI using 3.0 x 20mm Promus to the midRCA. ([facility]). Paroxysmal 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 (HCC) 03/17/2012 - ECHO: LVEF ~ 25%. LA [...] MR and TR. PAP ~ 40 mmHg. 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 This was discussed with Dr. Santoro by telephone at 4:14 PM on 01/21/2018. Persistent extensive right lung consolidation compatible with pneumonia. Slight improvement in mild patchy and nodular left lung opacities compatible with resolving pneumonia and scarring. Left pleural effusion has resolved. A follow-up chest CT in 6 months is recommended to assess for stability or improvement of nodular components. Marked emphysema - S/P chest tube x 2 on 01/22/2018, fluid analysis consistent wit empyema - CT chest 01/25/2018: Significant overall improvement in the moderate loculated hydropneumothorax after placement of 2 pleural drains. Persistent extensive right lung consolidation compatible with pneumonia and/or atelectasis. Legionella pneumonia, also possible aspiration - At OSH started on Zosyn 10/31, escalated to vancomycin, anidulafungin ( unsure what dates added); zosyn switched to meropenem , vanc stopped at some point - negative blood cultures; bronch with MARIALUISA BAL on 11/08 with negative bacterial culture, unsure of fungal culture result -positive legionella urine antigen at CT 11/14: Multifocal right upper lobe consolidation with several air-fluid levels within bullae suggestive of multifocal necrotizing pneumonia. Air-fluid levels may represent infected or hemorrhagic bullae which often requires prolonged antibiotic therapy, similar to treating a pulmonary abscess. - Fungitell 38, Galactomannan 0.052. - [facility] (11/04)- peripheral blood cultures -no growth, Sputum/ endotracheal- mixed bacterial alvaro, few yeast (11/08) BAL/left upper lobe >1, 000 CFU/ML- C. 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 Not detected on first BAL, virus detected on 12/21/17 BAL. Treated. Significant debility P. mirabilispneumonia 01/16/18 DEONTE 01/26 REC: 1. He has had nearly 3 weeks of proteus treatment, nearly 1 week post-op and operative cultures are negative. His nausea started prior to zosyn, but it may be contributing now. Will stop zosyn and monitor off. 2. Continue cresemba 3. Monitor labs for toxicity 4. Will follow. Mr. Salas has complex disease requiring complex medical decision making for pneumonia, aspergillosis, therapeutic drug monitoring, resp failure. I reviewed the chart and interviewed and examined the patient and formulated the plan as above. Discussed with Dr. Altamirano. History of Present Illness: Darrius Salas is a 62 y.o. male With significant right lung pathology and invasive aspergillosis readmitted to rehab hospital. Darrius is well-known to me. He has Invasive aspergillosis and significant right lung pathology s/p decortication 01/29/18. He was admitted to acute hospital 11/13-12/31/17 for pneumonia with legionella, CMV, aspergillus. He went to rehab hospital 12/31-01/21/18, but was transferred back to acute hospital 01/21 -02/02/18 for sepsis and worsening right-sided effusion,empyema and respiratory status. He underwnet decortication on the right on 01/29/18. Cultures were negative. He continues to have 1 chest tube. He completed treatment for CMV pneumonitis. He remians on antibacterial and antifungal treatment and has now been transferred back to rehab hospital. ID has been consulted for assistance in management. He feels good. He has been working with therapy He remains on 2-4L NC. His main complaint besides weakness is significant nausea which started at rehab hospital last time. Past Medical History: Diagnosis Date AF (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) ([facility]) 08/15/2012 CAD (coronary artery disease) 08/15/2012 CHF (congestive heart failure) ([facility]) 08/15/2012 COPD (chronic obstructive pulmonary disease) ([facility]) 08/15/2012 HLD (hyperlipidemia) 08/15/2012 HTN (hypertension) 08/15/2012 LA thrombus 08/15/2012 longterm current use of anticoagulant 08/15/2012 S/P ablation of 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 05/04/2013 05/04/[address] ablation [address] Dr[address] Godfrey. Past Surgical History: Procedure Laterality Date CARDIOVERSION CORONARY STENT PLACEMENT Social History Tobacco Use Smoking status: Former Smoker Packs/day: 2.00 Years: 30.00 Pack years: 60.00 Types: Cigarettes Last attempt to quit: 11/30/2017 Years since quittin.1 Smokeless tobacco: Former User Types: Chew Tobacco comment: down to 1/4 pack /day or less Substance Use Topics Alcohol use: Yes Comment: 6 per week; prior reported as 6-pack per day Drug use: No No family history on file. Allergies: Patient has no known allergies. Scheduled Meds: acetylcysteine (MUCOMYST) 200 mg/mL (20 %) nebulizer solution 3 mL 3 mL Inhalation Q12H albuterol 0.5% (PROVENTIL; VENTOLIN) nebulizer solution 2.5 mg 2.5 mg Inhalation BID & PRN ascorbic acid (VITAMIN C) tablet 500 mg 500 mg Oral QDAY cholecalciferol (VITAMIN D-3) tablet 400 Units 400 Units Oral QDAY digoxin (LANOXIN) tablet 125 mcg 125 mcg Oral QDAY docusate (COLACE) capsule 100 mg 100 mg Oral BID enoxaparin (LOVENOX) syringe 40 mg 40 mg Subcutaneous QDAY fluticasone (FLONASE) nasal spray 2 spray 2 spray Each Nostril QDAY guaiFENesin LA (MUCINEX) tablet 600 mg 600 mg Oral BID isavuconazonium sulfate (CRESEMBA) capsule 372 mg 372 mg Oral QDAY(21) lidocaine (LIDODERM) 5 % topical patch 1-2 patch 1-2 patch Topical QDAY magnesium oxide (MAG-OX) tablet 400 mg 400 mg Oral BID metoprolol tartrate (LOPRESSOR) tablet 12.5 mg 12.5 mg Oral BID pantoprazole DR (PROTONIX) tablet 40 mg 40 mg Oral QDAY(21) piperacillin/tazobactam (ZOSYN) 3.375 g in sodium chloride 0.9% (NS) 100 mL IVPB (MB+) 3.375 g Intravenous Q6H* polyethylene glycol 3350 (MIRALAX) packet 17 g 1 packet Oral BID senna (SENOKOT) tablet 2 tablet 2 tablet Oral QHS sodium chloride PF 0.9% flush 30 mL 30 mL Intravenous FLUSH TID thiamine mononitrate tablet 100 mg 100 mg Oral QDAY umeclidinium-vilanterol (ANORO ELLIPTA) 62.5-25 mcg/actuation inhaler 1 puff 1 puff Inhalation QDAY vitamin A & D topical ointment Topical QDAY vitamins, multi w/minerals tablet 1 tablet 1 tablet Oral QDAY Continuous Infusions: PRN and Respiratory Meds:acetaminophen Q4H PRN, alteplase BID PRN, aluminum/ magnesium hydroxide Q4H PRN, bisacodyl QDAY PRN, milk of magnesia (CONC) Q4H PRN , ondansetron Q6H PRN, oxyCODONE Q3H PRN Review of Systems: +SOB, nausea, cough. No f/c/ns, FERGUSON, abd pain, myalgias, arthralgias. +weakness. Rest of 14-point ROS negative. Vital Signs: Last Filed in 24 hours Vital Signs: 24 hour Range BP: 124/66 (02/03 1019) Temp: 36.9 C (98.4 F) (02/03 045) Pulse: 98 (02/03 1019) Respirations: 18 PER MINUTE (02/03 0753) SpO2: 95 % (02/03 0907) O2 Delivery: Nasal Cannula (02/03 453) Height: 182.9 cm (72") (02/02 1648) BP: (110-142)/(63-83) Temp: [36.4 C (97.5 F)-37.2 C (98.9 F)] Pulse: [92-112] Respirations: [17 PER MINUTE-18 PER MINUTE] SpO2: [85 %-100 %] O2 Delivery: Nasal Cannula Physical Exam: General: Alert, cooperative, no distress Head: Normocephalic, without obvious abnormality, atraumatic Eyes: Conjunctivae/corneas clear. PERRL, EOMs intact. No subconjuntival hemorrhages. Throat: Lips, mucosa and tongue normal. Neck: Supple, symmetrical, trachea midline, no rigidity Lungs: Poor air exchange bilaterally R>L Chest wall: No tenderness or deformity. Heart: Regular rate and rhythm Abdomen: Soft, mild epigastric ttp. Bowel sounds normal. Extremities: Extremities normal, atraumatic, no cyanosis or edema Skin: Skin color, texture, turgor normal. No rashes or lesions Lymph nodes: Cervical, supraclavicular and axillary nodes normal Neurologic: CNII - XII intact. No focal deficits Spine: No ttp throughout spine Lab/Radiology/Other Diagnostic Tests: Full labs and radiology viewed and reports reviewed. Reviewed Microbiology data from past and present. Caryn Farah MD Infectious Diseases faculty Pager: [phone] PRESS OPERATOR * Ortiz Rashid MD - 02/03/2018 10:00 AM AIR PRESS OPERATOR Associated Order(s): CONSULT INTERNAL MEDICINE PHYSICIAN Name: Darrius Salas Admission Date: 02/02/2018 Assessment/Plan: Principal Problem: Critical illness myopathy Active Problems: CHF (congestive heart failure) (HCC) CAD (coronary artery disease) Paroxysmal 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 (HCC) longterm current use of anticoagulant COPD (chronic obstructive pulmonary disease) (HCC) HTN (hypertension) HLD (hyperlipidemia) S/P ablation of 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 Pneumonia Cytomegalovirus (CMV) viremia ([facility]) Impaired mobility and activities of daily living Loculated pleural effusion Acute on chronic respiratory failure with hypoxia and hypercapnia (HCC) Pulmonary aspergillosis invasive type (HCC) COPD, severe (HCC) Secondary spontaneous pneumothorax Legionella pneumonia (HCC) Atrial fibrillation with RVR ([facility]) Empyema of right pleural space ([facility]) Reason for consult: Medical management of multisystem disease 62-year-old with complicated past medical history of 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 fib on Xarelto, CAD status post PCI in 2012, congestive heart failure. Initially admitted to as a transfer from outside hospital for Legionella and aspergillosis pneumonia 11/13/2017. Hospital stay complicated by PEA 11/18 due to mucous plugging. Discharged to rehab on 12/31. Readmitted to for recurrent fevers, dypsnea, and oxygen desaturations. Found to have loculated hydropneumothorax now status post repeat chest tube placement and decortication. 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 mirabilispneumonia 01/16/18 #PEA 10/ due to mucus plugging #Loculated hydropneumothorax -BAL at the time positive for Tamar Glabrata, HSV and CMV. -CT chest was preformed that showed multifocal PNA with air-fluid levels, fungitell 38, features concerning for necrotizing aspergillosis PNA.Bronch preformed 11/19 later confirmed this suspected diagnosis. -Currently on Zosyn and Cresemba 372 daily -Chest tube in place, thoracic surgery will follow up in clinic after discharge from rehab facility to address chest tube duration -ID following COPD Chronic respiratory failure Baseline oxygen 2-3 L at night Follows with pulmonology in [place] SENIOR NET SOFTWARE ENGINEER Mucomyst BID, albuterol twice daily as needed, Flonase daily, Mucinex 600 mg twice daily, and Anoro Ellipta daily DEONTE (improving) Baseline cr normal ~0.6, reached max of 2.36 this admission, now generally down- trending Likely due to cardiogenic shock CAD A. Fib with RVR SENIOR NET SOFTWARE ENGINEER Xarelto Digoxin started this admission for Afib with RVR Status post PCI in 2012 SENIOR NET SOFTWARE ENGINEER Lopressor 12.5 twice daily Patient reports he was previously on Lasix at home Echo 11/22/2017 with EF 70% EKG 02/03 with sinus rhythm Recommendations -Can consider adding second antiemetic agent to control nausea like compazine -Please obtain AM digoxin level tomorrow to check for digoxin toxicity given nausea, diarrhea and recent high levels -Agree with high protein shakes given hypoalbuminemia. Encourage increased oral intake -Defer antibiotic management to ID -Defer chest tube management to CTS Thank you for the consult, we will follow Patient seen and discussed with Dr. Aly Rashid MD PGY1 Team pager [phone] __ Primary Care Physician: Flavio Jackson Chief Complaint: Medical management of multisystem disease History of Present Illness: Darrius Salas is a 62 y.o. male With complicated PMH and hospital course as noted above. Patient is doing okay this morning. He continues to have pain at the site of chest tube insertion. He denies left sided anginal pain. He complains of loose stools x4 daily. He states he does not have much of an apatite, and cannot eat because of the nausea. Zofran helps a little but still unable to eat much due to loss of apetite. Trying to drink more shakes to regain strength. He feels extreme fatigue and becomes breathless after taking just a few steps. He admits to having orthopnea and states his breathing is worse with laying flat. He complains of leg swelling but states this has been a chronic issue for him. Patient states he feels really unwell and has never in his life felt this way before all of this happened. For this reason he has not been able to participate fully in therapy because he becomes tired easily. He has not had a cigarette since he was initially admitted to the hospital. He lives in [facility] where he regularly follows with PCP, senior technical project manager for his COPD and editorial clerk who manages his heart problems. 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 Godfrey. Past Surgical History: Procedure Laterality Date CARDIOVERSION CORONARY STENT PLACEMENT No family history on file. Social History Socioeconomic History Marital status: Spouse name: Not on file Number of children: Not on file Years of education: Not on file Highest education level: Not on file Social Needs Financial resource strain: Not on file Food insecurity - worry: Not on file Food insecurity - inability: Not on file Transportation needs - medical: Not on file Transportation needs - non-medical: Not on file Occupational History Not on file Tobacco Use Smoking status: Former Smoker Packs/day: 2.00 Years: 30.00 Pack years: 60.00 Types: Cigarettes Last attempt to quit: 11/30/2017 Years since quittin.1 Smokeless tobacco: Former User Types: Chew Tobacco comment: down to 1/4 pack /day or less Substance and Sexual Activity Alcohol use: Yes Comment: 6 per week; prior reported as 6-pack per day Drug use: No Sexual activity: Not on file Other Topics Concern Not on file Social History Narrative Not on file Immunizations (includes history and patient reported): Immunization History Administered Date(s) Administered Flu Vaccine=>6 Months Quadrivalent PF 12/28/2017 Pneumococcal Vaccine (23-Janett Adult) 12/31/2017 Allergies: Patient has no known allergies. Medications: Medications Prior to Admission Medication Sig acetaminophen (TYLENOL) 500 mg tablet Take two tablets by mouth every 6 hours as needed. Max of 4,000 mg of acetaminophen in 24 hours. acetylcysteine (MUCOMYST) 200 mg/mL (20 %) solution Inhale 3 mL by mouth into the lungs every 12 hours. albuterol (PROAIR HFA, VENTOLIN HFA, OR PROVENTIL HFA) 90 mcg/actuation inhaler Inhale two puffs by mouth into the lungs four times daily as needed for Wheezing or Shortness of Breath. Shake well before use. ascorbic acid (VITAMIN C) 500 mg tablet one tablet by Per NG tube route daily. cholecalciferol (VITAMIN D-3) 400 unit tab tablet Take one tablet by mouth daily. dextran 70/hypromellose (GENTEAL TEARS; BION TEARS) 0.1/0.3 % dpet ophthalmic solution Apply one drop to both eyes every 6 hours as needed for Dry Eyes. digoxin (LANOXIN) 125 mcg tablet Take one tablet by mouth daily. enoxaparin (LOVENOX) 40 mg injection syringe Inject 0.4 mL under the skin daily. fluticasone (FLONASE) 50 mcg/actuation nasal spray Apply two sprays to each nostril as directed daily. Shake bottle gently before using. furosemide (LASIX) 20 mg tablet Take three tablets by mouth twice daily. guaiFENesin LA (MUCINEX) 600 mg tablet Take one tablet by mouth twice daily. isavuconazonium sulfate (CRESEMBA) 186 mg capsule Take two capsules by mouth daily. For at least 3 months lidocaine (LIDODERM) 5 % topical patch Apply one patch to two patches topically to affected area every 24 hours. Apply patch for 12 hours, then remove for 12 hours before repeating. magnesium oxide (MAG-OX) 400 mg (241.3 mg magnesium) tablet Take one tablet by mouth twice daily. melatonin 5 mg tab one tablet by Per NG tube route at bedtime as needed. metoprolol tartrate (LOPRESSOR) 25 mg tablet Take one-half tablet by mouth twice daily. ondansetron (ZOFRAN) 4 mg tablet Take one tablet by mouth three times daily with meals. oxyCODONE (ROXICODONE, OXY-IR) 5 mg tablet Take one tablet to two tablets by mouth every 3 hours as needed Earliest Fill Date: 02/02/[address] (PROTONIX) 40 mg tablet Take one tablet by mouth daily. phenol (CLORASEPTIC; PHENASEPTIC) 1.4 % spra Take two sprays by mouth or throat as directed as Needed. piperacillin/tazobactam (ZOSYN) 3.375 g/15 mL 3.375 g in sodium chloride 0.9 % (NS) 0.9 % 100 mL IVPB (MB+) Administer 3.375 g through vein every 6 hours. senna (SENOKOT) 8.6 mg tablet Take two tablets by mouth twice daily. thiamine mononitrate 100 mg tablet one tablet by Per NG tube route daily. umeclidinium-vilanterol (ANORO ELLIPTA) 62.5-25 mcg/actuation inhaler Inhale one puff by mouth into the lungs daily. vitamin A & D oint Apply topically to affected area daily. Apply A&D ointment to wounds and cover with a Biatain foam. Dressing changes daily and PRN for soiling. vitamins, multi w/minerals 9 mg iron-400 mcg tab Take one tablet by mouth daily. Review of Systems: All other systems reviewed and are negative. Physical Exam: Vital Signs: Last Filed In 24 Hours Vital Signs: 24 Hour Range BP: 121/71 (02/03 453) Temp: 36.9 C (98.4 F) (02/03 453) Pulse: 101 (02/03 0753) Respirations: 18 PER MINUTE (02/03 075) SpO2: 95 % (02/03 0907) O2 Delivery: Nasal Cannula (02/03 453) Height: 182.9 cm (72") (02/02 1648) BP: (110-142)/(63-83) Temp: [36.4 C (97.5 F)-37.2 C (98.9 F)] Pulse: [92-112] Respirations: [17 PER MINUTE-18 PER MINUTE] SpO2: [85 %-100 %] O2 Delivery: Nasal Cannula Intensity Pain Scale (Self Report): 5 (02/02/182020) General: Alert, cooperative, no distress, appears stated age Head: Normocephalic, without obvious abnormality, atraumatic Eyes: Conjunctivae/corneas clear. PERRL, EOMs intact. Neck: Supple, symmetrical, trachea midline, no carotid bruit and no JVD Lungs: Bilateral wheezes, crackles in lung bases bilaterally. Chest tube in place Heart: Tachycardic, regular rhythm, S1, S2 normal, no murmur, click rub or gallop Abdomen: Soft, non-tender. Bowel sounds normal. No masses. No organomegaly. Extremities: Extremities normal, atraumatic, no cyanosis. 3+ pitting edema to mid calf bilaterally Peripheral pulses: 2+ and symmetric, all extremities Skin: Skin color, texture, turgor normal. No rashes or lesions Lab/Radiology/Other Diagnostic Tests: 24-hour labs: Results for orders placed or performed during the hospital encounter of (from the past 24 hour(s)) CBC CELLULAR THERAPEUTICS Collection Time: 02/03/18 5:43 AM Result Value Ref Range White Blood Cells 10.0 4.5 - 11.0 K/UL RBC 2.16 (L) 4.4 - 5.5 M/UL Hemoglobin 7.3 (L) 13.5 - 16.5 GM/DL Hematocrit 22.2 (L) 40 - 50 % MCV 102.6 (H) 80 - 100 FL MCH 34.0 26 - 34 PG MCHC 33.1 32.0 - 36.0 G/DL RDW 17.4 (H) 11 - 15 % Platelet Count 204 150 - 400 K/UL MPV 7.3 7 - 11 FL BASIC METABOLIC PANEL CELLULAR THERAPEUTICS Collection Time: 02/03/18 5:43 AM Result Value Ref Range Sodium 138 137 - 147 MMOL/L Potassium 3.4 (L) 3.5 - 5.1 MMOL/L Chloride 103 98 - 110 MMOL/L CO2 31 (H) 21 - 30 MMOL/L Anion Gap 4 3 - 12 Glucose 94 70 - 100 MG/DL Blood Urea Nitrogen 6 (L) 7 - 25 MG/DL Creatinine 1.41 (H) 0.4 - 1.24 MG/DL Calcium 8.0 (L) 8.5 - 10.6 MG/DL eGFR Non 51 (L) >60 mL/min eGFR >60 >60 mL/min Glucose: 94 (02/03/18 0543) Pertinent radiology reviewed. Ortiz Rashid MD PRESS OPERATOR Associated attestation - Prashanth Lu DO - 02/03/2018 5:04 PM AIR PRESS OPERATOR ATTESTATION I personally performed the gaytan portions of the E/M visit, discussed case with resident and concur with resident documentation of history, physical exam, assessment, and treatment plan unless otherwise noted. Staff name: Prashanth Lu DO Date: 02/03/2018 in this encounter Miscellaneous Notes * Case Mgmt DC Plan - NhungAdair obrien - 02/21/2018 11:30 AM AIR PRESS OPERATOR Social Work Note- SW notified by pt's Rachel that they had filled a Lovenox prescription, which was not a prescription rehab physician had sent. RANDY clarified with rehab pharmacist, that pt's prescriptions when he discharged from acute to rehab had been sent to the home pharmacy, which the family filled in addition to the correct prescriptions. RANDY reviewed the correct medications with Rachel, who was going to contact the home pharmacy. dAair Coburn LMSW Phone: [phone] Pager: [phone] PRESS OPERATOR * Case Mgmt DC Plan - Adair Coburn - 02/21/2018 11:30 AM AIR PRESS OPERATOR Case Management Progress NoteNAME:Darrius Salas :1955 AGE: 62 y.o. ADMISSION DATE: 02/02/2018 DAYS ADMITTED: LOS: 19 days Todays Date: 02/21/2018 Plan Pt to d/c today 02/21/[address] [facility]. Pt's son Kalyan to transport around noon. Interventions ? Support Support: Pt/Family Updates re:POC or DC Plan RANDY met with pt and pt's son Kalyan to review DCP. Pt understanding of [facility] and [facility] Pt providing his oxygen and rollator. Therapy staff was present and reviewed recommendations for tub bench when pt is able to bath and bed rail. Pt also understanding of medications and filling Cresemba at [facility] and other scripts at home pharmacy. ? Info or Referral Information or Referral to Community Resources: No Needs Identified ? Discharge Planning Discharge Planning: Durable Medical Equipment and Supplies, Home Infusion- Enteral-TPN, Home Health RANDY faxed HH orders and AVS to [facility] via [facility] [employer]. RANDY faxed updated rollator form to [facility] Pt at fax: [phone]. RANDY spoke with Liz at [facility] and she confirmed they would deliver pt's rollator and new oxygen tubing to the home today. They will also coordinate servicing pt's home oxygen equipment. ? Medication Needs Medication Needs: Co-Pay Check ? Financial Financial: No Needs Identified ? Legal Legal: No Needs Identified ? Other Other/None: No needs identified Disposition ? Expected Discharge Date Expected Discharge Date: 02/21/18 ? Transportation Does the patient need discharge transport arranged?: No Transportation Name, Phone and Availability #1: Pt's Rachel [phone] Transportation Name, Phone and Availability #2: Son Jeovany [phone] Does the patient use Medicaid Transportation?: No ? Next Level of Care (Acute Psych discharges only) ? Discharge Disposition Durable Medical Equipment No service has been selected for the patient. [facility] No service has been selected for the patient. Home Care - Selection Complete Service Provider Request Status Selected Services Address Phone Number Fax Number [facility] Selected Home Health Services [address] [facility] [address] [facility] [id number] [phone] Dialysis/Infusion No service has been selected for the patient. Adair Coburn LMSW Phone: [phone] Pager: [phone] PRESS OPERATOR * Case Mgmt DC Plan - Adair Coburn - 02/18/2018 10:49 AM AIR PRESS OPERATOR Case Management Progress NoteNAME:Darrius Salas :1955 AGE: 62 y.o. ADMISSION DATE: 02/02/2018 DAYS ADMITTED: LOS: 16 days Todays Date: 02/18/2018 Plan Anticipate d/c 02/21 to home with , pending pt stability. Interventions ? Support Support: Pt/Family Updates re:POC or DC Plan RANDY reviewed DCP with pt and pt's Rachel, including d/c on 02/21 with [facility] . Pt's son Kalyan to arrive on Wednesday for nursing training and therapy training on Wednesday, with d/c Wednesday afternoon. RANDY reviewed oxygen studies planned for this weekend and hat [facility] Patient will deliver rollator and osygen to pt's home on Wednesday. RANDY also reviewed recommendations for tub bench and bed rail with Rachel, who will purchase. RANDY reviewed that pt's Cresemba will cost about $360, but RANDY is working on finding an assistance program. Pt hopeful for assistance, as he does not feel he could pay that. ? Info or Referral Information or Referral to Community Resources: No Needs Identified ? Discharge Planning Discharge Planning: Durable Medical Equipment and Supplies, Home Infusion- Enteral-TPN, Home Health RANDY spoke with Greg with [facility] , who reports they can accept and start care on Wednesday 02/22. They understand that pt has a chest tube. [phone] RANDY spoke with Emily with [facility]. They will provide pt's roller walker and updated oxygen. They can deliver to pt's home on Wednesday. They will also replace all tubing. [phone] ? Medication Needs Medication Needs: Co-Pay Check SW contacted pt's [employer] prescription insurance plan to inquire about copay or prior auth for Renetta. Prior auth approved, but pt has a co pay of $366 for 8 day supply. RANDY spoke with Angy with prescription assistance and she may have a co pay card option, but needs the prescription to be sent to the pharmacy today. SW requested physician send script, appreciate assistance! ? Financial Financial: No Needs Identified ? Legal Legal: No Needs Identified ? Other Other/None: No needs identified Disposition ? Expected Discharge Date Expected Discharge Date: 02/21/18 ? Transportation Does the patient need discharge transport arranged?: No Transportation Name, Phone and Availability #1: Pt's Rachel [phone] Transportation Name, Phone and Availability #2: Son Jeovany [phone] Does the patient use Medicaid Transportation?: No ? Next Level of Care (Acute Psych discharges only) ? Discharge Disposition Durable Medical Equipment No service has been selected for the patient. [facility] No service has been selected for the patient. Home Care No service has been selected for the patient. Dialysis/Infusion No service has been selected for the patient. Adair Coburn LMSW Phone: [phone] Pager: [phone] PRESS OPERATOR * Case Mgmt DC Plan - Adair Coburn - 02/17/2018 3:59 PM AIR PRESS OPERATOR Case Management Progress NoteNAME:Darrius Salas :1955 AGE: 62 y.o. ADMISSION DATE: 02/02/2018 DAYS ADMITTED: LOS: 15 days Todays Date: 02/17/2018 Plan Anticipate d/c 02/21 to home with HH, pending medical stability. Interventions ? Support Support: Pt/Family Updates re:POC or DC Plan RANDY attempted to meet with pt to provide update, but he was sleeping and requested to meet later. RANDY contacted pt's Rachel to discuss DCP. RANDY advised that d/c is tentatively set for 02/21, but cautioned it depends on medical stability. RANDY reviewed that HH is still recommended and Rachel reports they prefer [facility]. RANDY reviewed that rollator and oxygen will be ordered from [facility]. Rachel reports that family is working to install a hand rail at the home entry. Rachel wondering about what type of tub bench she should purchase. RANDY discussed need for family training and Rachel reports that pt's son Kalyan will likely be up on Wednesday for training with nursing and can assist with d/c on Wednesday. SW advised that if pt is stable for d/c on Wednesday, it would likely be later in the day. Rachel agreeable to plan. ? Info or Referral Information or Referral to Community Resources: No Needs Identified ? Discharge Planning Discharge Planning: Durable Medical Equipment and Supplies, Home Infusion- Enteral-TPN, Home Health SW sent referral to [facility] via [facility] [employer]. ? Medication Needs Medication Needs: Co-Pay Check ? Financial Financial: No Needs Identified RANDY spoke with [employer] who reports pt does have active Medicaid, but it does not cover prescriptions. RANDY spoke with Angy with Prescription Assistance and she confirmed pt has [employer] prescription coverage. ? Legal Legal: No Needs Identified ? Other Other/None: No needs identified Disposition ? Expected Discharge Date Expected Discharge Date: 02/21/18 ? Transportation Does the patient need discharge transport arranged?: No Transportation Name, Phone and Availability #1: Pt's Rachel [phone] Transportation Name, Phone and Availability #2: Son Jeovany [phone] Does the patient use Medicaid Transportation?: No ? Next Level of Care (Acute Psych discharges only) ? Discharge Disposition Durable Medical Equipment No service has been selected for the patient. [facility] No service has been selected for the patient. [facility] No service has been selected for the patient. [facility] No service has been selected for the patient. Adair Coburn LMSW Phone: [phone] Pager: *[phone] PRESS OPERATOR * Rehab Team Conference - Honey Whitehead RN - 02/16/2018 10:44 AM AIR PRESS OPERATOR Team Conference Note Date of Admission: 02/02/2018 Date of Team Conference: 02/16/2018 Darrius Salas is a 62 y.o. male. : 1955 Team Conference Attendees: Beatriz Ortiz MD, Attending Physician; Michael Vegas MD, Resident Physician; Adair Coburn SUPERVISORY IT SPECIALIST, Social Work; Marcelino Fam PharmD, Pharmacy; India Santillan PhD, ABPP, Neuropsychology; Sabina Siddiqi PsyD, Neuropsychology Fellow; Kierra Higgins DPT, Physical Therapy; Ld Cunningham OTR, Occupational Therapy; Nela Barragan RADAR TESTER, Speech Therapy; Honey Whitehead RN, Environmental Sciences Professor; Patrica Zapien RD LD, Clinical Nutrition; Katheryn Keene RN, Nursing Medical Update: Patient remains on IV zosyn at this time per ID. He has had some bloody BM this week, but vitals and hemoglobin stable. May require transfer to acute care if worsens. However, oxygen requirement continues to improve. No other changes. Team Goal: Patient will perform: at ambulation level, household mobility, Least assistive device, Modified independent, Progressing Pt will perform basic care and transfer with: Modified independence, Roller walker level Discharge Planning Discharge Date: 02/21/18 Self-Care/ADLs:Independent with homemaking w/ ambulation;Independent with ADLs and functional transfers Mobility: Independent Mobility in Community without Device Work/Personal Responsibilities/Hobbies: On disability Home Environment: Home Situation: Lives with Family Patient Owned Equipment: None Type of Home: House Entry Stairs: 3-5 Stairs;Rail on 1 Side In-Home Stairs: Able to Live on One Level Comments: Family is planning to build a bathroom on main level of home. Support System: Spouse, Rachel (retired); sons and [id number] Other DME: CPAP Plan Home with Home health PT/OT/RN DME Tub transfer bench; 4-wheel walker; elevated toilet seat/commode over the toilet Rehabilitation Plan Progress Improved sit to stands; minimal assist from higher surfaces Contact guard assist with 4-wheel walker when ambulating Stand by assist with most ADls in seated position Barriers/Concerns Ongoing nausea around pills/meals impacting participation Weakness and fatigue fatigues quickly with ADLs Slow progress due to limited participation in therapy Stomach/GI impacting progress. (every time IV antibiotics run) 3 lpm with activity. shortness of breath with exertion at times, however pt having fewer oxygen demands and has been weaned to 1L O2 NC. occasional blood in stool noted since this past weekend. pt with consistent loose stools and intermittent nausea. pt still with chest tube in place, small amt of drainage. Plan increase ambulation distance and endurance; increase upright tolerance; nustep; step/stair training when tolerated pt has occasional aching pain in chest that is resolved with scheduled tylenol. healing pressure ulcer on L ear, bacitracin to site, skin pink. criticaid to coccyx, skin red/pink. dressing change q48h to chest tube exit site. pt turns self in bed with staff prompting. Likely IV abx at discharge Repeat oxygenation studies prior to discharge Up to chair 3 hours/day Ambulate to bathroom with staff Meals/snack before giving medications Teach patient to empty the chest tube Encourage Boost shakes Relaxation strategies Performance Day Monday 02/20 Goals Weekly Goals Weekly Bed Mobility Goals: Patient will perform sit to supine with, Patient will perform supine to sit with Patient will perform sit to supine with: Modified independent, Progressing Patient will perform supine to sit with: Modified independent, Progressing Weekly Transfer Goals: Patient will complete sit to stand transfer with, Patient will complete stand to sit transfer with, Patient will complete stand pivot transfer with Patient will complete sit to stand transfer with: Minimum assistance, Achieved( new goal; mod I) Patient will complete stand to sit transfer with: Minimum assistance, Achieved( new goal; mod I) Patient will complete stand pivot transfer with: Minimum assistance, Achieved( new goal; mod I) Weekly Ambulation/Stairs Goals: Patient will ambulate, Patient will ascend/ descend Patient will ambulate: 50 feet, Minimum assistance, Progressing Patient will ascend/descend: 2 stairs, Minimum assistance, Progressing Weekly Goals Patient Will Perform Bathing: w/ Minimum Assist Patient Will Perform UE Dressing: Modified Independent Patient Will Perform LE Dressing: w/ Minimum Assist Patient Will Perform Grooming: w/ Minimum Assist Patient Will Perform Toileting: w/Setup Pt Will Perform All Functional Transfers: Minimum Assist Nursing Short Term Goals Bladder Management: Yes Patient / Caregiver will verbalize signs & symptoms of urinary tract infection and what action to do with: Minimum verbal cues, Progressing Bowel Management: Yes Will be able to verbalize dietary regimen that will regulate bowel function with : Minimum verbal cues, Progressing Will verbalize need to have a bowel movement daily/every other day (for constipation) with: No verbal cues, Progressing Patient / Caregiver will verbalize knowledge of activity in relation to constipation with: No verbal cues, Progressing Medication Management: Yes Will verbalize reason for medication with: Minimum verbal / written cues, Progressing Will verbalize dose and time for medication with: Minimum verbal / written cues , Progressing Will verbalize side effects of medication with: Minimum verbal / written cues, Progressing Skin Integrity: Yes Will be free of Stage 1 Pressure Ulcers by performing positioning techniques with: Minimum verbal cues, Progressing Will verbalize optimal skin care routine with: Minimum verbal cues, Progressing Will verbalize 2-3 risk factors for pressure ulcers with: Minimum verbal / written cues, Progressing Pain Management: Yes Will verbalize pain level at or between ____ at rest: Progressing Will verbalize pain level at or between ____ with activity: Progressing Safety: Yes Will verbalize 2-3 Fall risk factors with: Minimum verbal cues, Progressing Will demonstrate understanding of mobility precautions with: No verbal cues, Progressing Will demonstrate understanding of own limitations with: Minimum verbal cues, Progressing Will verbalize the importance of using call light with: Achieved Disease Knowledge: Yes Will verbalize risk factors of disease process with: Minimum verbal cues, Progressing Will verbalize secondary prevention modifiers related to disease with: Minimum verbal cues, Progressing Patient will be able to verbalize decrease in fatigue by: Progressing Nutrition: Yes Will demonstrate appropriate nutritional intake with: Minimum verbal cues, Progressing Patient / Caregiver will be able to verbalize knowledge of proper nutrition to prevent fluid overload with: Minimum verbal cues, Progressing Will verbalize knowledge of signs / symptoms of aspiration with: Achieved Will be able to verbalize swallowing precautions / techniques with: Achieved Functional Lawson Measures Eating FIM: 7 - Complete independence Grooming FIM: 4 - Contact guard assistance Bathing FIM: 3 - Moderate assistance, patient performs 50-74% or more of grooming/bathing/dressing/toileting tasks Dressing - Upper Body FIM: 5 - Set up Dressing - Lower Body FIM: 3 - Moderate assistance, patient performs 50-74% or more of grooming/bathing/dressing/toileting tasks Toileting FIM: 6 - Modified independence - Safety Concern Bladder FIM: 5 - Emptying device by staff Bowel FIM: 1 - Total assistance, patient expends less than 25% effort (complete % of assist, if change diapers, total assist) Transfers FIM: 5 - Set up, positioning of assistive device-i.e. slide board, moving leg rests etc Toilet Transfers FIM: 3 - Moderate assistance, patient performs 50-74% of transferring tasks (lifting required) Shower Transfers FIM: 3 - Moderate assistance, patient performs 50-74% of transferring tasks (lifting required) Gait: 2 - Maximal assistance, patient expends 25-49% effort, requires one person assist, greater than or equal to 50-149 feet Stairs FIM: 0 - Activity did not occur - Safety Comprehension FIM: 7 - Complete independence Expression FIM: 7 - Complete independence - Able to express complex/abstract ideas clearly and fluently Social Interaction FIM: 6 - Modified independence - Able to interact in most situations and no prompting required Problem Solving FIM: 6 - Modified independence - Able to recognize problems with only mild difficulty, makes appropriate decisions, initiates and carries out a sequence of steps to solve complex problems, no prompting Memory FIM: 7 - Complete independence - Recognizes people frequently encountered , remembers daily routines, executes requests of other without need for repetition PRESS OPERATOR Associated attestation - Beatriz Ortiz MD - 02/16/2018 2:19 PM AIR PRESS OPERATOR I personally led the interdisciplinary team meeting and concur with all decisions made by the interdisciplinary team. Beatriz Ortiz MD * Case Mgmt DC Plan - Adair Coburn - 02/10/2018 4:58 PM AIR PRESS OPERATOR Case Management Progress NoteNAME:Darrius Salas :1955 AGE: 62 y.o. ADMISSION DATE: 02/02/2018 DAYS ADMITTED: LOS: 8 days Todays Date: 02/10/2018 Plan Anticipate d/c 02/21 to home with HH, pending pt stability. Interventions ? Support Support: Pt/Family Updates re:POC or DC Plan RANDY reviewed EMR and obtained updates from rehab team conference. RANDY met with pt to provide update on DCP, including tentative d/c date of 02/21 with recommendations for HH. Pt is pleased with this plan and hopeful he will stay on track. Pt reports feeling much better today. SW explained need for HH, especially if pt d/c's with chest tube and IV antibiotics. Pt agreeable to reviewing HH list. Pt inquired about DME and home oxygen. SW reviewed current recommendations for rollator and tub bench. SW also explained oxygen studies and how this will indicate what pt's home oxygen needs with be. Pt understanding. SW contacted pt's Rachel and provided same update. Rachel agreeable to plan, but had further medical questions. Rehab resident agreeable to contacting with medical update. ? Info or Referral Information or Referral to Community Resources: No Needs Identified ? Discharge Planning Discharge Planning: Durable Medical Equipment and Supplies, Home Infusion- Enteral-TPN, Home Health ? Medication Needs Medication Needs: Co-Pay Check ? Financial Financial: No Needs Identified ? Legal Legal: No Needs Identified ? Other Other/None: No needs identified Disposition ? Expected Discharge Date Expected Discharge Date: 02/21/18 ? Transportation Does the patient need discharge transport arranged?: No Transportation Name, Phone and Availability #1: Pt's Rachel [phone] Transportation Name, Phone and Availability #2: Son Jeovany [phone] Does the patient use Medicaid Transportation?: No ? Next Level of Care (Acute Psych discharges only) ? Discharge Disposition Durable Medical Equipment No service has been selected for the patient. [facility] Destination No service has been selected for the patient. Home Care No service has been selected for the patient. [facility] Dialysis/Infusion No service has been selected for the patient. Adair Coburn LMSW Phone: [phone] Pager: [phone] PRESS OPERATOR * Rehab Team Conference - Beatriz Elias - 02/09/2018 10:35 AM AIR PRESS OPERATOR Team Conference Note Date of Admission: 02/02/2018 Date of Team Conference: 02/09/2018 Darrius Salas is a 62 y.o. male. : 1955 Team Conference Attendees:Estephanie Tapia MD, Attending Physician; Nela Santoro MD, Resident Physician; Adair Coburn LMSW, Social Work; Delta Gutierrez PhD; Nueropsychology Fellow;Patrica MAYORGA, Clinical Nutrition; Beatriz SILVERIO, Potline Monitor; Nela Barragan RADAR TESTER, Speech Therapy; Ld Cunningham, OTR Occupational Therapy; BART RobinsT Physical Therapy; Zelda Almanza RN, Nrusing Medical Update: 62 yo M with PMH of COPD on 2-3L QHS, tobacco use, Afib on Xarelto, CAD s/p PCI (2012) who was originally admitted to rehab with multi- organism PNA after multiple intubations and PEA arrest. He was re-admitted to [facility] for loculated hydropneumothorax and is now s/p chest tube placement and decortication. Presents with critical Illness myopathy. ID is following, continue cresemba 372mg QD for PNA. Monitoring respiratory status with frequent inhalers and pulmonary hygiene. Mini atrium continues to drain well, empty as needed. His volume status was up on admission, increased lasix to 60mg BID. Next day patient had DEONTE, resolved with small fluid resuscitation and holding of lasix. WBC count today with low hgb, giving blood and ID to see patient. Start IV zosyn pending cultures. Team Goal: Patient will perform: at ambulation level, household mobility, Least assistive device, Modified independent, Progressing Pt will perform basic care and transfer with: Modified independence Discharge Planning Discharge Date: 02/21/18 Prior Level of Function Self-Care/ADLs:Independent with homemaking w/ ambulation;Independent with ADLs and functional transfers Mobility: Independent Mobility in Community without Device Work/Personal Responsibilities/Hobbies: On disability Home Environment: Home Situation: Lives with Family Patient Owned Equipment: None Type of Home: House Entry Stairs: 3-5 Stairs;Rail on 1 Side In-Home Stairs: Able to Live on One Level Comments: Family is planning to build a bathroom on main level of home. Support System: Spouse, Rachel (retired); sons and [id number] Other DME: CPAP Plan Home with Home health PT/OT vs. Outpatient DME Tub transfer bench; 4-wheel walker Rehabilitation Plan Progress Improved activity tolerance and time out of bed Improved sit to stands; minimal assist from higher surfaces Minimal assist with 4-wheel walker when ambulating Barriers/Concerns Nausea and low BP impacting participation in therapy Significant weakness and decreased endurance impacting safety with ADLs and mobility Moderate lift assist from lower surfaces Moderate assist with bathing and LB dressing Easily fatigued, lacks motivation for some cares due to exhaustion. Occasional depressed mood related to extended hospital stay. Plan increase ambulation distance and endurance; increase upright tolerance; nustep; step/stair training when tolerated Has occasional pain and aches in chest- oxy prn avalible but reccently pain resovled with Tylenol. RUE Triple lumen PICC with dressing intact. CRight sided chest tube in tact and draining. Pt uses call light apropriately. Mod assist w/ walker with 2 person assist. at night and driller's offsider- very weak. Up to chair 3 hours/day Ambulate to bathroom with staff Encourage relaxation techniques Goals Weekly Goals Weekly Bed Mobility Goals: Patient will perform sit to supine with, Patient will perform supine to sit with Patient will perform sit to supine with: Minimum assistance, Achieved(new goal; mod I) Patient will perform supine to sit with: Minimum assistance, Achieved(new goal; mod I) Weekly Transfer Goals: Patient will complete sit to stand transfer with, Patient will complete stand to sit transfer with, Patient will complete stand pivot transfer with Patient will complete sit to stand transfer with: Minimum assistance, Progressing Patient will complete stand to sit transfer with: Minimum assistance, Progressing Patient will complete stand pivot transfer with: Minimum assistance, Progressing Weekly Ambulation/Stairs Goals: Patient will ambulate, Patient will ascend/ descend Patient will ambulate: 50 feet, Minimum assistance, Least assistive device, Progressing Patient will ascend/descend: 2 stairs, Minimum assistance, Progressing Weekly Goals Patient Will Perform Bathing: w/ Minimum Assist Patient Will Perform UE Dressing: Modified Independent Patient Will Perform LE Dressing: w/ Minimum Assist Patient Will Perform Grooming: w/ Minimum Assist Patient Will Perform Toileting: w/Setup Pt Will Perform All Functional Transfers: Minimum Assist Nursing Short Term Goals Bladder Management: Yes Patient / Caregiver will verbalize signs & symptoms of urinary tract infection and what action to do with: Progressing Bowel Management: Yes Will be able to verbalize dietary regimen that will regulate bowel function with : Progressing Will verbalize need to have a bowel movement daily/every other day (for constipation) with: Progressing Patient / Caregiver will verbalize knowledge of activity in relation to constipation with: Progressing Medication Management: No Will verbalize reason for medication with: Progressing Will verbalize dose and time for medication with: Progressing Will verbalize side effects of medication with: Progressing Skin Integrity: Yes Will be free of Stage 1 Pressure Ulcers by performing positioning techniques with: Progressing Will verbalize optimal skin care routine with: Progressing Will verbalize 2-3 risk factors for pressure ulcers with: Progressing Pain Management: Yes Will verbalize pain level at or between ____ at rest: Progressing Will verbalize pain level at or between ____ with activity: Progressing Safety: Yes Will verbalize 2-3 Fall risk factors with: Progressing Will demonstrate understanding of mobility precautions with: Progressing Will demonstrate understanding of own limitations with: Progressing Will verbalize the importance of using call light with: Progressing Disease Knowledge: Yes Will verbalize risk factors of disease process with: Minimum verbal cues Will verbalize secondary prevention modifiers related to disease with: Minimum verbal cues Patient will be able to verbalize decrease in fatigue by: Progressing Nutrition: Yes Will demonstrate appropriate nutritional intake with: Minimum verbal cues Patient / Caregiver will be able to verbalize knowledge of proper nutrition to prevent fluid overload with: Minimum verbal cues Will verbalize knowledge of signs / symptoms of aspiration with: Minimum verbal cues Will be able to verbalize swallowing precautions / techniques with: Progressing Functional Lawson Measures Eating FIM: 7 - Complete independence Grooming FIM: 4 - Contact guard assistance Bathing FIM: 3 - Moderate assistance, patient performs 50-74% or more of grooming/bathing/dressing/toileting tasks Dressing - Upper Body FIM: 5 - Set up Dressing - Lower Body FIM: 3 - Moderate assistance, patient performs 50-74% or more of grooming/bathing/dressing/toileting tasks Toileting FIM: 5 - Set up Bladder FIM: 5 - Emptying device by staff Bowel FIM: 7 - No bowel movement, no medication Transfers FIM: 4 - Minimal assistance, patient performs 75% or more of transferring tasks Toilet Transfers FIM: 3 - Moderate assistance, patient performs 50-74% of transferring tasks (lifting required) Shower Transfers FIM: 3 - Moderate assistance, patient performs 50-74% of transferring tasks (lifting required) Gait: 1 - Total assistance, patient expends less than 25% effort (comment % of effort), <50 feet Stairs FIM: 0 - Activity did not occur - Other (comment) Comprehension FIM: 7 - Complete independence Expression FIM: 7 - Complete independence - Able to express complex/abstract ideas clearly and fluently Social Interaction FIM: 6 - Modified independence - Able to interact in most situations and no prompting required Problem Solving FIM: 6 - Modified independence - Able to recognize problems with only mild difficulty, makes appropriate decisions, initiates and carries out a sequence of steps to solve complex problems, no prompting Memory FIM: 7 - Complete independence - Recognizes people frequently encountered , remembers daily routines, executes requests of other without need for repetition PRESS OPERATOR Associated attestation - Estephanie Tapia MD - 02/09/2018 10:39 AM AIR PRESS OPERATOR I personally led the interdisciplinary team meeting and concur with all decisions made by the interdisciplinary team. Estephanie Tapia MD * Rehab Care Plan - Beatriz Ortiz MD - 02/04/2018 12:32 PM AIR PRESS OPERATOR Physical Medicine & Rehabilitation Individualized Overall Plan of Care Date of Service: 02/04/2018 Darrius Salas is a 62 y.o. male. : 1955 Insurance: Medicare Date of Admission: 02/02/2018 Hospital Course: Mr. Darrius Salas is a 62-year-old male who transferred to [facility] on 11/13/2017 after initially presenting to an outside hospital on 10/31/2017 for pneumonia. Patient's hospital course was complicated by septic shock, acute on chronic hypoxic respiratory failure requiring intubation twice and 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 with RVR s/p failed cardioversion. Patient was transferred to [facility] as the patient was failing at the outside hospital despite aggressive treatment. Patient was initially intubated on 11/06/2017, extubated on 11/10/2017 and then re-intubated on 11/13/2017 as he went into respiratory failure again. He was then extubated on 11/14/2017 Patient underwent a bronchoscopy with bronchoalveolar lavage on 11/08/2017 which was negative for bacterial growth. He did have a positive fungal blood culture and was placed on anidulafungin in addition to broad spectrum antibiotics. Patient did show positive legionella urine antigen and started on levofloxacin. Chest x-ray on 11/16/2017 revealed stable appearance of the chest with marked right upper lobe consolidation with several air-fluid levels within bullae suggestive of multifocal necrotizing pneumonia, patchy GGO in Left upper lobe, right lower lobe and right middle lobe likely multifocal infection. Also of note found to havebibasilar atelectasis, small effusions and marked emphysema. On 11/17/2017 patient had a corpak placed for supplemental PO intake. Due to worsening respiratory status, patient was once again intubated on 11/18/2017. Later that same day (11/18/2017) patient was rapid responded for 02 sats in the 60s and HR in the 40s. Chest x- ray performed that day which showed progression of the right upper lung consolidation and persistent bibasilar opacities, compatible with progressing pneumonia. Persistent bilateral pleural effusions. On 11/19/2017 patient had a bronchoscopy with findings of excessive mucropurulent secretions and started on solumedrol taper. Patient was successfully extubated on 11/24/2017. PEA required chest compressions and CT on 12/06/2017 revealed multiple nondisplaced and mildly displaced bilateral anterior rib fractures.PEG tube was placed in IR on 12/15/2017. On 12/16/2017 was rapid responded for increased oxygen requirements and was then transferred to the medical ICU. He then had a thoracentesis with 1800cc exudative fluid. Gastroenterology consulted for elevated alkaline phosphatase and an abdominal ultrasound was performed with noted right upper quadrant mass. 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 Patient required CT placement from 12/22/2017-12/29/2017. Patient was admitted to the inpatient rehab unit on 12/31/2017 and was making functional progress towards goal of discharge to home; however discharged back to acute care on 01/21/2018 due to recurrent fevers, dypsnea, and oxygen desaturations. Patient was transferred to the MICU with 3/4 SIRs criteria. CTS consulted for CT placement in setting of Rt loculated pneumothorax with effusion at base and Lt sided emphysema w/ bullae on CT chest. ID continued to follow with abx therapy management. Rt CT X2 placed on 01/22. On 01/28, the patient underwent a decortication of the right lung in the setting of loculated pleural effusion ( persistent). he is currently with a right pleural drain to water seal and tolerating 2L NC. Patient's hospital course has been complicated by pain, anemia , impaired mobility and activities of daily living. Patient has been working with physical and occupational therapy since rehab admission and has been making functional progress. Patient is anticipated to return to home at the standby to modified independent level of care. Rehab Diagnosis: debility due to respiratory failure Pain and Weakness Medical Course since IRF Admission: The patients clinical course since admission has been complicated. The patient has been able to participate fully in the rehabilitation program due to stable medical condition, but very medically complex due to complex pulmonary disease and we have addressed in the following ways: Nausea improved this morning, c/o pain at chest tube sites. Labs and VS reviewed and wts up since rehab admission, o/w stable. Digoxin level therapeutic today. On exam, 4L NC O2. 2+ pitting edema to thighs. Resume Lasix 40mg BID today, may increase to 60mg BID pending volume status. Continue current dose digoxin. Holding vasotec and lipitor for now. Reviewed MAR, patient not taking Tylenol or Lidoderm patch. Changed orders to schedule these. Cont scheduled Zofran with meals, improved nausea today. Encourage diet supplements. Monitor chest tube output, stable. Patient remains medically stable to participate in IRF program. Medical Prognosis: Fair The patient has a reasonable likelihood of fully participating in and completing the IRF stay based on ability to manage medical issues including critical illness myopathy, acute on chronic respiratory failure, complicated PNA , hydropneumothorax s/p chest tube in place, afib, CAD, CHF, HTN, HLD. There is a reasonable expectation of several years of productive life in a community setting in which they will benefit from this stay. This patient meets medical necessity requiring the intensity of therapy available at the [facility]. The patient can participate in and can fully benefit from the services offered in the IRF setting including 24 hour rehabilitation nursing, daily oversight from the Threading Machine Tender, and complex interdisciplinary rehab as noted below. Functional Lawson Measures (FIMS) Current Level of Function Evaluation FIMS Current FIMS Eating FIM: 6 - Modified independence - Extra Time (3 times normal) Grooming FIM: 4 - Contact guard assistance Bathing FIM: 3 - Moderate assistance, patient performs 50-74% or more of grooming/bathing/dressing/toileting tasks Dressing - Upper Body FIM: 5 - Set up Dressing - Lower Body FIM: 3 - Moderate assistance, patient performs 50-74% or more of grooming/bathing/dressing/toileting tasks Toileting FIM: 4 - Minimal contact assistance, patient performs 75% or more of grooming/bathing/dressing/toileting tasks Bladder FIM: 5 - Emptying device by staff Bowel FIM: 7 - No bowel movement, no medication Transfers FIM: 3 - Moderate assistance, patient performs 50-74% of transferring tasks (lifting required) Toilet Transfers FIM: 3 - Moderate assistance, patient performs 50-74% of transferring tasks (lifting required) Shower Transfers FIM: 3 - Moderate assistance, patient performs 50-74% of transferring tasks (lifting required) Gait: 1 - Toal assistance, two or more people, < 50 feet Stairs FIM: 0 - Activity did not occur - Unable due to motor control Comprehension FIM: 7 - Complete independence Expression FIM: 7 - Complete independence - Able to express complex/abstract ideas clearly and fluently Social Interaction FIM: 6 - Modified independence - Able to interact in most situations and no prompting required Problem Solving FIM: 6 - Modified independence - Able to recognize problems with only mild difficulty, makes appropriate decisions, initiates and carries out a sequence of steps to solve complex problems, no prompting Memory FIM: 7 - Complete independence - Recognizes people frequently encountered , remembers daily routines, executes requests of other without need for repetition Eating FIM: 7 - Complete independence Grooming FIM: 4 - Contact guard assistance Bathing FIM: 3 - Moderate assistance, patient performs 50-74% or more of grooming/bathing/dressing/toileting tasks Dressing - Upper Body FIM: 5 - Set up Dressing - Lower Body FIM: 3 - Moderate assistance, patient performs 50-74% or more of grooming/bathing/dressing/toileting tasks Toileting FIM: 3 - Moderate assistance, patient performs 50-74% or more of grooming/bathing/dressing/toileting tasks Bladder FIM: 5 - Emptying device by staff Bowel FIM: 6 - No bowel movement, medication Transfers FIM: 3 - Moderate assistance, patient performs 50-74% of transferring tasks (lifting required) Toilet Transfers FIM: 3 - Moderate assistance, patient performs 50-74% of transferring tasks (lifting required) Shower Transfers FIM: 3 - Moderate assistance, patient performs 50-74% of transferring tasks (lifting required) Gait: 1 - Toal assistance, two or more people, < 50 feet Stairs FIM: 0 - Activity did not occur - Unable due to motor control Comprehension FIM: 7 - Complete independence Expression FIM: 7 - Complete independence - Able to express complex/abstract ideas clearly and fluently Social Interaction FIM: 6 - Modified independence - Able to interact in most situations and no prompting required Problem Solving FIM: 6 - Modified independence - Able to recognize problems with only mild difficulty, makes appropriate decisions, initiates and carries out a sequence of steps to solve complex problems, no prompting Memory FIM: 7 - Complete independence - Recognizes people frequently encountered , remembers daily routines, executes requests of other without need for repetition Physical Therapy Goals Patient will perform: at ambulation level, household mobility, Least assistive device, Modified independent Occupational Therapy Goals Pt will perform basic care and transfer with: Modified independence(least assistive device) Speech Therapy Goals NA Nursing Goals Patient / Caregiver will verbalize signs & symptoms of urinary tract infection and what action to do with: Progressing Bowel Management: Yes Will be able to verbalize dietary regimen that will regulate bowel function with : Progressing Will verbalize need to have a bowel movement daily/every other day (for constipation) with: Progressing Patient / Caregiver will verbalize knowledge of activity in relation to constipation with: Progressing Medication Management: Yes Will verbalize reason for medication with: Progressing Will verbalize dose and time for medication with: Progressing Will verbalize side effects of medication with: Progressing Skin Integrity: Yes Will be free of Stage 1 Pressure Ulcers by performing positioning techniques with: Progressing Will verbalize optimal skin care routine with: Progressing Will verbalize 2-3 risk factors for pressure ulcers with: Progressing Pain Management: Yes Will verbalize pain level at or between ____ at rest: Progressing Will verbalize pain level at or between ____ with activity: Progressing Safety: Yes Will verbalize 2-3 Fall risk factors with: Progressing Will demonstrate understanding of mobility precautions with: Progressing Will demonstrate understanding of own limitations with: Progressing Will verbalize the importance of using call light with: Progressing Disease Knowledge: Yes Will verbalize risk factors of disease process with: Progressing Will verbalize secondary prevention modifiers related to disease with: Progressing Patient will be able to verbalize decrease in fatigue by: Progressing Nutrition: Yes Will demonstrate appropriate nutritional intake with: Progressing Patient / Caregiver will be able to verbalize knowledge of proper nutrition to prevent fluid overload with: Progressing Will verbalize knowledge of signs / symptoms of aspiration with: Progressing Will be able to verbalize swallowing precautions / techniques with: Progressing Additional therapeutic disciplines may be included during this stay if indicated during interdisciplinary communication and will be noted in the daily progress notes when relevant. Social Work will address discharge planning needs. Rehabilitation Plan Patient will receive Physical therapy and Occupational therapy each 90 minutes a day , 5 days a week for a total of 3 hours daily (minimum) for the duration of the rehabilitation stay within an interdisciplinary rehabilitation program with case consultant/pediatric social worker, senior sales operations manager, neuropsychologist, rehab nursing and PM&R oversight. Rehabilitation Prognosis: Good, anticipate steady functional gains with PT, OT, and RADAR TESTER to return home with family support. Tolerance for three hours of therapy a day: Good, patient is tolerating 3 hours of therapy per day, as required. Goals/Barriers/Facilitators Family / Patient Goals: Patient would like to regain strength and endurance to safely return home. Mobility Goals: Updated per therapy evaluation as above Activities of Daily Living (ADLs) Goals: Updated per therapy evaluation as above. Cognition / Communication Goals: Updated per therapy evaluation as above. Barriers &Interventions: Caregiver Apprehension: Arrange caregiver support and discuss barriers and patient progress with caregivers when appropriate. Functioning at Wheelchair Level: Adaptive equipment, create wide,/clear paths, home modifications, alternative transportation arrangements, vehicle modifications, pursue home ramp access, and remove home obstacles. High [place] of Care: Initiate interdisciplinary rehabilitation to improve functional independence and reduce burden of care. Home Accessibility: Work with family to obtain home measurements of doorways, bathroom access, and stair set-up to plan for appropriate adaptive equipment and home modifications as necessary. Inaccessible Transportation: Alternative transportation arrangements and/or vehicle modifications. MedicationEducation: Pharmacist and nursing staff to provide education to patient and family regarding medication side effects, special precautions, and safe administration. Poor Strength / Endurance: Patient will continue to work with intense physical and occupational therapy to gain strength and endurance for a safe discharge to home. Facilitators: good family / social support, patient motivation and improving medical condition Discharge Planning Expected Length of Stay:14-21days, longer than anticipated in [facility] due to severity of medical condition, reduced cardiopulmonary reserve and endurance, severe weakness from prolonged medical illness Expected Discharge Disposition:Home Expected Discharge Needs:PT and OT at the outpatient level of care. Patient will likely benefit from a shower chair/tub transfer bench, handheld shower head to improve patient safety and decrease risk for falls. Patient will be evaluated by physical and occupational therapy for most appropriate equipment recommendations. The patient should reach their current goals by noted projected discharge date. This plan of care was formulated based upon a review of the progress this patient made with therapies during the acute hospital stay, the goals set by the inpatient rehabilitation therapists at the time of their initial assessment , and my expertise in caring for patients with this rehabilitation diagnosis and accompanying comorbidities. Beatriz Ortiz MD 02/04/18 12:32 PM PRESS OPERATOR * Case Mgmt DC Plan - Adair Coburn - 02/04/2018 8:51 AM AIR PRESS OPERATOR Case Management Admission AssessmentNAME:Darrius Salas :1955 AGE: 62 y.o. ADMISSION DATE: 02/02/2018 DAYS ADMITTED: LOS: 2 days Todays Date: 02/04/2018 Source of Information: Pt and previous assessment from 01/04/18 Plan Plan: Psychosocial Assessment, Assist PRN with /NCM Services, Discharge Planning for Home Anticipated Patient Address/Phone [address] [place] [phone] (home) Emergency Contact Extended Emergency Contact Information Primary Emergency Contact: Rachel Salas [facility] Mobile Relation: Spouse Secondary Emergency Contact: Jeovany Salas [facility] Mobile Relation: Son Healthcare Directive Healthcare Directive: No, patient does not have a healthcare directive Would patient like to fill out a (a new) Healthcare Directive?: No, patient declined Psych Advance Directive (Psych unit only): No, patient does not have a Psych Advance Directive Transportation Does the patient need discharge transport arranged?: No Transportation Name, Phone and Availability #1: Pt's Rachel [phone] Transportation Name, Phone and Availability #2: Son Jeovany [phone] Does the patient use Medicaid Transportation?: No Expected Discharge Date Expected Discharge Date: 02/19/18 Living Situation Prior to Admission ? Living Arrangements Type of Residence: Home, independent Living Arrangements: Spouse/significant other Bathroom Shower / Tub: Tub Only How many levels in the residence?: 1 Can patient live on one level if needed?: Yes Does residence have entry and/or side stairs?: Yes(5 entry steps with hand rail) Assistance needed prior to admit or anticipated on discharge: No Who provides assistance or could if needed?: Pt's Rachel, adult children Kalyan Thayer, Viridiana. Are they in good health?: Yes Can support system provide 24/7 care if needed?: Maybe Pt lives with his Rachel in a single level home with a basement, with 5 entry steps with a hand rail. Pt's bathroom is accessible by walker, with tub only, but pt reports his family is likely going to remodel to build a walk in shower. Pt does have a "make shift" walk in shower in the basement. Pt was independent with ADL's, including driving, without device, prior to admission. Pt reports he managed all self care, but struggled with housework due to COPD. Pt's Rachel is his main support and she cares for her grandchildren treating machine operator during the day. Rachel may start providing daycare at her and pt's home, so that she is able to assist pt as needed. Pt's adult children Jeovany, Kalyan, and Viridiana all live in [place] (about 2 hours from pt) and work treating machine operator, but pt's son's have flexible schedules and can assist intermittently. Pt also has two sisters in [place], Irlanda and Michelle, who can assist intermittently. Pt feels his family can provide consistent and physical assistance, as needed. Pt was on 2-3 liters of nocturnal oxygen prior to admission, provided by [facility]. Pt also owns a standard walker. ? Level of Function Prior level of function: Independent ? Cognitive Abilities Cognitive Abilities: Alert and Oriented Financial Resources ? Coverage Primary Insurance: Medicare Secondary Insurance: Medicaid Additional Coverage: RX ? Source of Income Source Of Income: SSDI ? Financial Assistance Needed? None Psychosocial Needs ? Mental Health Mental Health History: No ? Substance Use History Substance Use History Screen: No ? Other None Current/Previous Services ? PCP Flavio Jackson, , Pt reports seeing his PCP about 9 months ago. PCP is at [facility] in [place]. Pt also follows with [facility] Jacinto for Cardiology: Dr. Nolen, and pulmonary: Dr. Gunter. ? Pharmacy [place], [place] - [address] [facility] [address] ? Durable Medical Equipment Durable Medical Equipment at home: Oxygen, Walker ? Home Health Receiving home health: No ? Hemodialysis or Peritoneal Dialysis Undergoing hemodialysis or peritoneal dialysis: No ? Tube/Enteral Feeds Receive tube/enteral feeds: No ? Infusion Receive infusions: No ? Private Duty Private duty help used: No ? Home and Community Based Services Home and community based services: No ? Elmer White Elmer White: No ? Hospice Hospice: No ? Outpatient Therapy PT: In the past Name of rehab location/group: [facility] Would patient return for future services?: Yes OT: No RADAR TESTER: No ? Prison Facility/Halfway SNF: No NH: No ? Inpatient Rehab IPR: No ? [facility] LTACH: No ? Acute Hospital Stay Adair oCburn LMSW Phone: [phone] Pager: [phone] PRESS OPERATOR * Rehab Pre-Admission Screening - Tim Joiner MD - 02/02/2018 4:15 PM AIR PRESS OPERATOR Physical Medicine & Rehabilitation Pre-Admission Screening Darrius Salas is a 62 y.o. male. : 1955 Primary Insurance: MEDICARE Secondary Insurance: [place] Financial Class: Medicare Date of Hospital Admission: 01/21/2018 Date of Expected Rehab Admission: 02/02/2018 Precautions: Fall Weight bearing Precautions: No Restrictions Medical Course Hospital Course: Mr. Darrius Salas is a 62-year-old male who transferred to [facility] on 11/13/2017 after initially presenting to an outside hospital on 10/31/2017 for pneumonia. Patient's hospital course was complicated by septic shock, acute on chronic hypoxic respiratory failure requiring intubation twice and 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 with RVR s/p failed cardioversion. Patient was transferred to [facility] as the patient was failing at the outside hospital despite aggressive treatment. Patient was initially intubated on 11/06/2017, extubated on 11/10/2017 and then re-intubated on 11/13/2017 as he went into respiratory failure again. He was then extubated on 11/14/2017 Patient underwent a bronchoscopy with bronchoalveolar lavage on 11/08/2017 which was negative for bacterial growth. He did have a positive fungal blood culture and was placed on anidulafungin in addition to broad spectrum antibiotics. Patient did show positive legionella urine antigen and started on levofloxacin. Chest x-ray on 11/16/2017 revealed stable appearance of the chest with marked right upper lobe consolidation with several air-fluid levels within bullae suggestive of multifocal necrotizing pneumonia, patchy GGO in Left upper lobe, right lower lobe and right middle lobe likely multifocal infection. Also of note found to havebibasilar atelectasis, small effusions and marked emphysema. On 11/17/2017 patient had a corpak placed for supplemental PO intake. Due to worsening respiratory status, patient was once again intubated on 11/18/2017. Later that same day (11/18/2017) patient was rapid responded for 02 sats in the 60s and HR in the 40s. Chest x- ray performed that day which showed progression of the right upper lung consolidation and persistent bibasilar opacities, compatible with progressing pneumonia. Persistent bilateral pleural effusions. On 11/19/2017 patient had a bronchoscopy with findings of excessive mucropurulent secretions and started on solumedrol taper. Patient was successfully extubated on 11/24/2017. PEA required chest compressions and CT on 12/06/2017 revealed multiple nondisplaced and mildly displaced bilateral anterior rib fractures.PEG tube was placed in IR on 12/15/2017. On 12/16/2017 was rapid responded for increased oxygen requirements and was then transferred to the medical ICU. He then had a thoracentesis with 1800cc exudative fluid. Gastroenterology consulted for elevated alkaline phosphatase and an abdominal ultrasound was performed with noted right upper quadrant mass. 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 Patient required CT placement from 12/22/2017-12/29/2017. Patient was admitted to the inpatient rehab unit on 12/31/2017 and was making functional progress towards goal of discharge to home; however discharged back to acute care on 01/21/2018 due to recurrent fevers, dypsnea, and oxygen desaturations. Patient was transferred to the MICU with 3/4 SIRs criteria. CTS consulted for CT placement in setting of Rt loculated pneumothorax with effusion at base and Lt sided emphysema w/ bullae on CT chest. ID continued to follow with abx therapy management. Rt CT X2 placed on 01/22. On 01/28, the patient underwent a decortication of the right lung in the setting of loculated pleural effusion ( persistent). he is currently with a right pleural drain to water seal and tolerating 2L NC. Patient's hospital course has been complicated by pain, anemia , impaired mobility and activities of daily living. Patient has been working with physical and occupational therapy since 2017 and has been making functional progress . Patient is anticipated to return to home at the [facility] to modified independent level of care. Prior Level of Function Self-Care/ADLs:Independent with homemaking w/ ambulation;Independent with ADLs and functional transfers Mobility: Independent Mobility in Community without Device Work/Personal Responsibilities/Hobbies: On disability Home Environment: Home Situation: Lives with Family (12/30/2017 10:00 AM) Patient Owned Equipment: None (12/30/2017 10:00 AM) Type of Home: House (12/30/2017 10:00 AM) Entry Stairs: 3-5 Stairs;Rail on 1 Side (12/30/2017 10:00 AM) In-Home Stairs: Able to Live on One Level (12/30/2017 10:00 AM) Comments: Family is planning to build a bathroom on main level of home. (2017 10:00 AM) Support System: Spouse, Rachel (retired); sons and [id number] Other DME: CPAP Current Level of Function Physical Therapy: (02/02/2018) Bed Mobility/Transfers Bed Mobility: Supine to Sit: Standby Assist;Use of Rail;Requires Extra Time; Safety Considerations Transfer Type: Sit to/from Stand Transfer: Assistance Level: From;Bed;To;Bed Side Chair;Minimal Assist Transfer: Assistive Device: Roller Walker Transfers: Type Of Assistance: Elevated Bed;For Strength Deficit;For Safety Considerations Other Transfer Type: Sit to/from Stand Other Transfer: Assistance Level: Moderate Assist(to/from low couch) Other Transfer: Assistive Device: Roller Walker Other Transfer: Type Of Assistance: For Strength Deficit;For Safety Considerations End Of Activity Status: Up in Chair;Instructed Patient to Request Assist with Mobility Gait Gait Distance: 25 feet(+40) Gait: Assistance Level: Minimal Assist;Management of Lines;Safety Considerations Gait: Assistive Device: Roller Walker Gait: Descriptors: Pace: Slow;Decreased step length Activity Limited By: Complaint of Fatigue;Weakness Occupational Therapy: (02/01/2018) ADL's Where Assessed: In Bathroom Eating Assist: Independent Eating Deficits: No Assist Needed Toileting Assist: Moderate Assist Toileting Deficits: Steadying;Perineal Hygiene Functional Transfer Assist: Moderate Assist(sit <> stands; Minimal assist ( Contact Guard) with walker) Functional Transfer Deficits: Steadying;Verbal Cueing;Supervision/Safety; Increased Time to Complete Comment: ADLs per above. Moderate assist for functional sit to stands from low recliner and low toilet seat. Minimal assist for controlled descent onto toilet. Pt SOA during toileting; O2 titrated to 3L for remainder of OOB activity. Pt required assist for posterior suzie care while he maintained balance with walker in standing. Stand by assist for sit to supine. Activity Tolerance Endurance: 3/5 Tolerates 25-30 Minutes Exercise w/Multiple Rests Sitting Balance: 4/5 Moves/Returns Trunkal Midpoint 1-2 Inches in Multiple Planes Cognition Overall Cognitive Status: WFL to Adequately Complete Self Care Tasks Safely Rehabilitation Plan Rehab Diagnosis and conditions that require Rehabilitation: debility due to respiratory failure Pain and Weakness Active Comorbidities/Risk of Medical Complications: 1. Acute on Chronic Respiratory Failure: Patient has required a new onset use of oxygen supplementation secondary to acute illness. Patient is at risk for acute respiratory failure, intubation, hypoxemia, and need for supplemental oxygen at home. Continue to monitor and manage. Patient encouraged to ambulate frequently and utilize incentive spirometer every hour while awake. 2. Legionella Pneumonia: Will have infectious Disease continue to manage while on rehab unit. 3. Anemia: Will need to monitor and manage, as this may negatively impact patient's endurance with therapy. 4. Leukocytosis: Patient is at risk for SIRS, sepsis and needs daily physician monitoring and management of acute illness. Will continue to monitor and manage. 5. Pain: There is a risk of uncontrolled pain, risk of failure to participate in therapies, and risk of sedation due to pain medications. This will require daily medication adjustments to find the balance between meaningful participation in therapies and pain control, avoid the potential for addiction, while facilitating the rehabilitation for their condition. Will continue to monitor and adjust medication regimen in order to maximize pain relief. 6. CKD: Patient is at risk for worsening of renal disease, acute renal failure, electrolyte and metabolic derangement, and needs daily physician monitoring of labs and volume status. Will continue to monitor and manage, as this may affect patient's ability to tolerate therapies. 7. Atrial fibrillation: Patient is at risk for recurrent 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 with RVR, other tachyarrhythmias, embolism, and stroke. Will continue to monitor and manage. 8. CHF: Patient is at risk for volume overload, acute respiratory failure, over diuresis, and other cardiac events. Ongoing assessment of patient's respiratory and volume status, especially during therapies. Check daily weights while in rehab. 9. COPD: Patient is at risk for dyspnea, increased work of breathing, increased oxygen needs, and acute respiratory failure. Ongoing assessment of patient's respiratory status, especially during therapies and use supplemental O2 as needed. Continue inhalers/nebulizer treatments per RT. 10. Hypertension: Patient is at risk for hyper/hypotension during aggressive mobilization program with therapies, and requires daily physician monitoring and adjustment of medications. Will continue to monitor and manage for optimal blood pressure control and resume home medications as able. 11. Hyperlipidemia: Will continue to monitor and manage, and adjust medications as needed. Patient will receive Physical therapy and Occupational therapy each 90 minutes a day , 5 days a week for a total of 3 hours daily (minimum) for the duration of the rehabilitation stay within an interdisciplinary rehabilitation program with case consultant/pediatric social worker, senior sales operations manager, neuropsychologist, rehab nursing and PM&R oversight. Rehabilitation Prognosis: Fair to Good Medical Prognosis: The patient is deemed medically stable to tolerate, benefit from, and participate in [facility] level services. Tolerance for three hours of therapy a day: Good Patient has participated well with therapies which started on 01/26/2018 in the acute care setting and is anticipated to tolerate 3 hours of therapy per day, as required. Goals/Barriers/Facilitators Family / Patient Goals: return home with family assistance Mobility Goals: Overall goal is Modified independent and Physical Therapy will evaluate and treat ambulation/wheelchair use and bed transfers Activities of Daily Living (ADLs) Goals: Overall goal is Stand by assistance to Modified Independent and Occupational therapy will evaluate and treat basic Activities of Daily Living Cognition / Communication Goals: Cognition grossly intact and Speech intact Barriers &Interventions: Caregiver Apprehension: Arrange caregiver support and discuss barriers and patient progress with caregivers when appropriate. Functioning at Wheelchair Level: Adaptive equipment, create wide,/clear paths, home modifications, alternative transportation arrangements, vehicle modifications, pursue home ramp access, and remove home obstacles. High [place] of Care: Initiate interdisciplinary rehabilitation to improve functional independence and reduce burden of care. Home Accessibility: Work with family to obtain home measurements of doorways, bathroom access, and stair set-up to plan for appropriate adaptive equipment and home modifications as necessary. Inaccessible Transportation: Alternative transportation arrangements and/or vehicle modifications. MedicationEducation: Pharmacist and nursing staff to provide education to patient and family regarding medication side effects, special precautions, and safe administration. Poor Strength / Endurance: Patient will continue to work with intense physical and occupational therapy to gain strength and endurance for a safe discharge to home. Facilitators: good family / social support, patient motivation and improving medical condition Discharge Planning Expected Length of Stay:10days Expected Discharge Disposition:Home Expected Discharge Needs:PT and OT at the outpatient level of care. Patient will likely benefit from a shower chair/tub transfer bench, handheld shower head to improve patient safety and decrease risk for falls. Patient will be evaluated by physical and occupational therapy for most appropriate equipment recommendations. LIANET Acevedo RN I have reviewed this pre-admission screen and approve the recommendations and plans for admission. Darrius Salas is a 62 y.o. 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 Additionally, the patient will likely benefit from aggressive clinical education including management of respiratory hygiene, post operative wound care, pain mangement, to improve compliance and reduce likelihood of complication or readmission to acute care. All of these clinical issues require daily physician oversight to reach target clinical and functional goals prior to discharge home. The patient is clinically/medically stable for admission to acute inpatient rehabilitation at this time. Treatment Plan (including disciplines, frequency and duration) We will initiate a comprehensive rehab program working on strengthening, endurance and safety with regard to transfer training, ambulation, dressing, bathing and grooming. Rehab nursing will be involved to monitor bowel and bladder function, skin integrity, administration of medications and family and patient education and therapy carryover. The patient will have intensive therapies with physical therapy 1.5 hour(s), occupational therapy 1.5 hour(s), for a minimum of 3 hours a day 5 days a week for the duration of the acute inpatient rehabilitation stay. Tim Joiner MD PRESS OPERATOR in this encounter Plan of Treatment Not on fileas of this encounter Procedures Comments Procedure Name Priority Date/Time Associated Diagnosis BASIC METABOLIC PANEL Routine 02/21/2018 CELLULAR THERAPEUTICS 5:55 AM AIR PRESS OPERATOR CBC CELLULAR THERAPEUTICS Routine 02/21/2018 5:55 AM AIR PRESS OPERATOR BASIC METABOLIC PANEL Routine 02/18/2018 CELLULAR THERAPEUTICS 7:27 AM AIR PRESS OPERATOR CBC CELLULAR THERAPEUTICS Routine 02/18/2018 7:27 AM AIR PRESS OPERATOR BASIC METABOLIC PANEL Routine 02/16/2018 CELLULAR THERAPEUTICS 5:57 AM AIR PRESS OPERATOR CBC CELLULAR THERAPEUTICS Routine 02/16/2018 5:57 AM AIR PRESS OPERATOR CBC Routine 02/15/2018 6:09 AM AIR PRESS OPERATOR BASIC METABOLIC PANEL Routine 02/15/2018 6:09 AM AIR PRESS OPERATOR BASIC METABOLIC PANEL Routine 02/14/2018 CELLULAR THERAPEUTICS 5:39 AM AIR PRESS OPERATOR CBC CELLULAR THERAPEUTICS Routine 02/14/2018 5:39 AM AIR PRESS OPERATOR CBC Routine 02/13/2018 6:09 AM AIR PRESS OPERATOR BASIC METABOLIC PANEL Routine 02/13/2018 6:09 AM AIR PRESS OPERATOR CBC Routine 02/12/2018 5:26 AM AIR PRESS OPERATOR BASIC METABOLIC PANEL Routine 02/12/2018 5:26 AM AIR PRESS OPERATOR BASIC METABOLIC PANEL Routine 02/11/2018 CELLULAR THERAPEUTICS 5:50 AM AIR PRESS OPERATOR CBC CELLULAR THERAPEUTICS Routine 02/11/2018 5:50 AM AIR PRESS OPERATOR CBC AND DIFF Routine 02/10/2018 3:35 PM AIR PRESS OPERATOR COMPREHENSIVE METABOLIC Routine 02/10/2018 PANEL 3:35 PM AIR PRESS OPERATOR TRANSFUSE RBC'S Routine 02/09/2018 NON-BLEEDING PT 6:42 PM AIR PRESS OPERATOR GRAM STAIN 02/09/2018 2:30 PM AIR PRESS OPERATOR CULTURE-RESP,LOWER Routine 02/09/2018 W/SENSITIVITY 2:30 PM AIR PRESS OPERATOR UA REFLEX CULTURE LABEL Routine 02/09/2018 2:15 PM AIR PRESS OPERATOR URINALYSIS MICROSCOPIC Routine 02/09/2018 REFLEX TO CULTURE 2:15 PM AIR PRESS OPERATOR URINALYSIS DIPSTICK Routine 02/09/2018 REFLEX TO CULTURE 2:15 PM AIR PRESS OPERATOR CULTURE-BLOOD Routine 02/09/2018 W/SENSITIVITY 10:30 AM AIR PRESS OPERATOR CULTURE-BLOOD Routine 02/09/2018 W/SENSITIVITY 10:00 AM AIR PRESS OPERATOR TYPE & CROSSMATCH Routine 02/09/2018 10:00 AM AIR PRESS OPERATOR BASIC METABOLIC PANEL Routine 02/09/2018 CELLULAR THERAPEUTICS 5:40 AM AIR PRESS OPERATOR CBC CELLULAR THERAPEUTICS Routine 02/09/2018 5:40 AM AIR PRESS OPERATOR BASIC METABOLIC PANEL Routine 02/08/2018 11:21 AM AIR PRESS OPERATOR BASIC METABOLIC PANEL Routine 02/07/2018 CELLULAR THERAPEUTICS 6:03 AM AIR PRESS OPERATOR CBC CELLULAR THERAPEUTICS Routine 02/07/2018 6:03 AM AIR PRESS OPERATOR MAGNESIUM Routine 02/07/2018 6:03 AM AIR PRESS OPERATOR DIGOXIN LEVEL Routine 02/07/2018 6:03 AM AIR PRESS OPERATOR POC GLUCOSE 02/06/2018 11:57 AM AIR PRESS OPERATOR BASIC METABOLIC PANEL Routine 02/06/2018 CELLULAR THERAPEUTICS 6:05 AM AIR PRESS OPERATOR CBC CELLULAR THERAPEUTICS Routine 02/06/2018 6:05 AM AIR PRESS OPERATOR MAGNESIUM Routine 02/06/2018 6:05 AM AIR PRESS OPERATOR BASIC METABOLIC PANEL Routine 02/05/2018 CELLULAR THERAPEUTICS 6:00 AM AIR PRESS OPERATOR CBC CELLULAR THERAPEUTICS Routine 02/05/2018 6:00 AM AIR PRESS OPERATOR BASIC METABOLIC PANEL Routine 02/04/2018 CELLULAR THERAPEUTICS 5:54 AM AIR PRESS OPERATOR CBC CELLULAR THERAPEUTICS Routine 02/04/2018 5:54 AM AIR PRESS OPERATOR ECG 12-LEAD Routine 02/03/2018 12:48 PM AIR PRESS OPERATOR BASIC METABOLIC PANEL Routine 02/03/2018 CELLULAR THERAPEUTICS 5:43 AM AIR PRESS OPERATOR CBC CELLULAR THERAPEUTICS Routine 02/03/2018 5:43 AM AIR PRESS OPERATOR SLEEP STUDY-SCAN 02/02/2018 12:00 AM AIR PRESS OPERATOR EXERCISE OXIMETRY-SCAN 02/02/2018 12:00 AM AIR PRESS OPERATOR in this encounter Results * BASIC METABOLIC PANEL CELLULAR THERAPEUTICS (02/21/2018 5:55 AM AIR PRESS OPERATOR) Sodium 137 137 - 147 MMOL/L [facility] [...] for questions. Specimen Blood Performing Organization Address City/[facility]/Zipcode Phone Number MAIN LAB [address] [place] [address] * CBC CELLULAR THERAPEUTICS (02/21/2018 5:55 AM AIR PRESS OPERATOR) White Blood Cells 9.1 4.5 - 11.0 [...] MAIN LAB Specimen Blood Performing Organization Address City/[facility] Number [facility] [address] [place] [address] * BASIC METABOLIC PANEL CELLULAR THERAPEUTICS (02/18/2018 7:27 AM AIR PRESS OPERATOR) Sodium 133 (L) 137 - 147 MMOL/L [facility] Potassium 3.7 3.5 - 5.1 MMOL/L [facility] Chloride 104 98 - 110 MMOL/L [facility] CO2 25 21 - 30 MMOL/L [facility] Anion Gap 4 3 - 12 [facility] Glucose 112 (H) 70 - 100 MG/DL [facility] Blood Urea Nitrogen 8 7 - 25 MG/DL [facility] Creatinine 0.79 0.4 - 1.24 MG/DL [facility] Calcium 8.2 (L) 8.5 - 10.6 MG/DL [facility] MAIN [...] for questions. Specimen Blood Performing Organization Address City/[facility]/Zipcode Phone Number MAIN LAB [address] [place] [address] * CBC CELLULAR THERAPEUTICS (02/18/2018 7:27 AM AIR PRESS OPERATOR) White Blood Cells 7.2 4.5 - 11.0 K/UL [facility] RBC 2.61 (L) 4.4 - 5.5 M/UL [facility] Hemoglobin 8.4 (L) 13.5 - 16.5 GM/DL [facility] Hematocrit 25.6 (L) 40 - 50 % [facility] MCV 97.9 80 - 100 FL [facility]IN [facility] MCH 32.2 26 - 34 PG [facility] MAIN [facility] MCHC 32.9 32.0 - 36.0 G/DL [facility] RDW 20.2 (H) 11 - 15 % [facility] Platelet Count 520 (H) 150 - 400 K/UL [facility] MPV 6.8 (L) 7 - 11 FL [facility]IN [facility] Specimen Blood Performing Organization Address City/[facility]/Zipcode Phone Number MAIN LAB [address] [place] [address] * BASIC METABOLIC PANEL CELLULAR THERAPEUTICS (02/16/2018 5:57 AM AIR PRESS OPERATOR) Sodium 138 137 - 147 MMOL/L [facility] Potassium 3.8 3.5 - 5.1 MMOL/L [facility] Chloride 108 98 - 110 MMOL/L [facility] CO2 25 21 - 30 MMOL/L [facility] Anion Gap 5 3 - 12 [facility] Glucose 77 70 - 100 MG/DL [facility] Blood Urea Nitrogen 9 7 - 25 MG/DL [facility] Creatinine 0.75 0.4 - 1.24 MG/DL [facility] Calcium 8.1 (L) 8.5 - 10.6 MG/DL [facility] MAIN [...] for questions. Specimen Blood Performing Organization Address City/[facility]/Zipcode Phone Number MAIN LAB [address] [place] [phone] * CBC CELLULAR THERAPEUTICS (02/16/2018 5:57 AM AIR PRESS OPERATOR) White Blood Cells 7.2 4.5 - 11.0 K/UL [facility]IN [facility] RBC 2.46 (L) 4.4 - 5.5 M/UL [facility]IN [facility] Hemoglobin 7.9 (L) 13.5 - 16.5 GM/DL [facility] MAIN [facility] Hematocrit 24.3 (L) 40 - 50 % [facility]IN [facility] MCV 98.4 80 - 100 FL [facility] MAIN [facility] MCH 32.3 26 - 34 PG [facility] MAIN [facility] MCHC 32.8 32.0 - 36.0 G/DL [facility]IN [facility] RDW 20.0 (H) 11 - 15 % [facility]IN [facility] Platelet Count 526 (H) 150 - 400 K/UL [facility] MPV 7.1 7 - 11 FL [facility] MAIN [facility] Specimen Blood Performing Organization Address City/[facility]/Zipcode Phone Number MAIN LAB [address] [place] [phone] * BASIC METABOLIC PANEL (02/15/2018 6:09 AM AIR PRESS OPERATOR) Sodium 137 137 - 147 MMOL/L [facility] MAIN [facility] Potassium 3.3 (L) 3.5 - [...] for questions. Specimen Blood Performing Organization Address City/[facility]/Zipcode Phone Number MAIN LAB [address] [place] [address] * CBC (02/15/2018 6:09 AM AIR PRESS OPERATOR) White Blood Cells 6.9 4.5 - 11.0 [...] LAB MCHC 32.8 32.0 - 36.0 G/DL [facility] MAIN [facility] RDW 20.2 (H) 11 - 15 % [facility] MAIN [facility] Platelet Count 453 (H) 150 - 400 K/UL [facility]IN [facility] MPV 7.1 7 - 11 FL [facility] MAIN [facility] Specimen Blood Performing Organization Address City/[facility]/Zipcode Phone Number [facility]IN [facility] [address] [place] [address] * BASIC METABOLIC PANEL CELLULAR THERAPEUTICS (02/14/2018 5:39 AM AIR PRESS OPERATOR) Sodium 139 137 - 147 MMOL/L [facility]IN [facility] Potassium 3.3 (L) 3.5 - 5.1 MMOL/L [facility] Chloride 106 98 - 110 MMOL/L [facility] CO2 29 21 - 30 MMOL/L [facility]IN [facility] Anion Gap 4 3 - 12 [facility]IN [facility] Glucose 79 70 - 100 MG/DL [facility]IN [facility] Blood Urea Nitrogen 10 7 - 25 MG/DL [facility]IN [facility] Creatinine 0.81 0.4 - 1.24 MG/DL [facility]IN [facility] Calcium 8.0 (L) 8.5 - 10.6 MG/DL [facility] MAIN [...] Blood Performing Organization Address City/State/Zipcode Phone Number [facility] [address] [place] [address] * CBC CELLULAR THERAPEUTICS (02/14/2018 5:39 AM AIR PRESS OPERATOR) White Blood Cells 7.1 4.5 - 11.0 K/UL [facility] RBC 2.46 (L) 4.4 - 5.5 M/UL [facility] Hemoglobin 8.0 (L) 13.5 - 16.5 GM/DL [facility] MAIN [facility] Hematocrit 24.0 (L) 40 - 50 % [facility]IN [facility] MCV 97.8 80 - 100 FL [facility]IN [facility] MCH 32.5 26 - 34 PG [facility] MCHC 33.3 32.0 - 36.0 G/DL [facility]IN [facility] RDW 20.6 (H) 11 - 15 % [facility] Platelet Count 536 (H) 150 - 400 K/UL [facility] MPV 6.9 (L) 7 - 11 FL [facility] MAIN [facility] Specimen Blood Performing Organization Address City/[facility]/Zipcode Phone Number [facility]IN [facility] [address] [place] [address] * CBC (02/13/2018 6:09 AM AIR PRESS OPERATOR) White Blood Cells 7.4 4.5 - 11.0 K/UL [facility]IN [facility] RBC 2.44 (L) 4.4 - 5.5 M/UL [facility] Hemoglobin 7.9 (L) 13.5 - 16.5 GM/DL [facility] MAIN [facility] Hematocrit 24.0 (L) 40 - 50 % [facility]IN [facility] MCV 98.3 80 - 100 FL [facility]IN [facility] MCH 32.5 26 - 34 PG [facility] MCHC 33.1 32.0 - 36.0 G/DL [facility]IN [facility] RDW 20.4 (H) 11 - 15 % [facility]IN [facility] Platelet Count 408 (H) 150 - 400 K/UL [facility] MPV 7.1 7 - 11 FL [facility] MAIN [facility] Specimen Blood Performing Organization Address City/[facility]/Zipcode Phone Number [facility] MAIN [facility] [address] [place] [address] * BASIC METABOLIC PANEL (02/13/2018 6:09 AM AIR PRESS OPERATOR) Sodium 139 137 - 147 MMOL/L MAIN LAB Potassium 3.3 (L) 3.5 - 5.1 MMOL/L MAIN LAB Chloride 106 98 - 110 MMOL/L MAIN LAB CO2 29 21 - 30 MMOL/L MAIN LAB Anion Gap 4 3 - 12 [facility] MAIN [facility] Glucose 89 70 - 100 MG/DL MAIN LAB Blood Urea Nitrogen 11 7 - 25 MG/DL MAIN LAB Creatinine 0.80 0.4 - 1.24 MG/DL [facility] Calcium 8.0 (L) 8.5 - 10.6 MG/DL MAIN LAB eGFR Non >60 >60 mL/min MAIN LAB Comment: The eGFR is not validated for use in drug dosing adjustments.Continue to use estimated creatinine clearance per dosing reference text.Please contact the Clinical Pharmacist for questions. eGFR >60 >60 mL/min [facility] Comment: The eGFR is not validated for use in drug dosing adjustments.Continue to use estimated creatinine clearance per dosing reference text.Please contact the Clinical Pharmacist for questions. Specimen Blood Performing Organization Address City/[facility]/Zipcode Phone Number [facility] [address] [place] [address] * CBC (02/12/2018 5:26 AM AIR PRESS OPERATOR) White Blood Cells 8.0 4.5 - 11.0 K/UL [facility] RBC 2.34 (L) 4.4 - 5.5 M/UL [facility] Hemoglobin 7.6 (L) 13.5 - 16.5 GM/DL [facility] Hematocrit 23.3 (L) 40 - 50 % [facility] MCV 99.6 80 - 100 FL [facility] MCH 32.5 26 - 34 PG [facility] MCHC 32.6 32.0 - 36.0 G/DL [facility] RDW 20.9 (H) 11 - 15 % [facility] Platelet Count 419 (H) 150 - 400 K/UL [facility] MPV 7.3 7 - 11 FL [facility] Specimen Blood Performing Organization Address City/[facility]/Zipcode Phone Number [facility] [address] [place] [address] * BASIC METABOLIC PANEL (02/12/2018 5:26 AM AIR PRESS OPERATOR) Sodium 138 137 - 147 MMOL/L [facility] Potassium 3.7 3.5 - 5.1 MMOL/L [facility] MAIN [facility] Chloride 105 98 - 110 MMOL/L [facility]IN [facility] CO2 30 21 - 30 MMOL/L [facility]IN [facility] Anion Gap 3 3 - 12 [facility]IN [facility] Glucose 98 70 - 100 MG/DL [facility] Blood Urea Nitrogen 10 7 - 25 MG/DL [facility] Creatinine 0.88 0.4 - 1.24 MG/DL [facility] MAIN LAB [...] for questions. Specimen Blood Performing Organization Address City/[facility] Phone Number MAIN LAB [address] [place] [address] * BASIC METABOLIC PANEL [email or web address] (02/11/2018 5:50 AM AIR PRESS OPERATOR) Sodium 137 137 - 147 MMOL/L [facility]IN [facility] Potassium 3.8 3.5 - 5.1 MMOL/L [facility] Chloride 104 98 - 110 MMOL/L [facility] CO2 30 21 - 30 MMOL/L [facility] Anion Gap 3 3 - 12 [facility] Glucose 76 70 - 100 MG/DL [facility] Blood Urea Nitrogen 10 7 - 25 MG/DL [facility] Creatinine 0.88 0.4 - 1.24 MG/DL [facility]IN [facility] [...] for questions. Specimen Blood Performing Organization Address City/[facility]/Zipcode Phone Number MAIN LAB [address] [place] [address] * CBC CELLULAR THERAPEUTICS (02/11/2018 5:50 AM AIR PRESS OPERATOR) White Blood Cells 8.4 4.5 - 11.0 K/UL [facility] RBC 2.35 (L) 4.4 - 5.5 M/UL [facility] Hemoglobin 7.8 (L) 13.5 - 16.5 GM/DL [facility]IN [facility] Hematocrit 23.2 (L) 40 - 50 % [facility] MCV 98.7 80 - 100 FL [facility] MCH 33.0 26 - 34 PG [facility] MCHC 33.4 32.0 - 36.0 G/DL [facility] RDW 21.4 (H) 11 - 15 % [facility] Platelet Count 329 150 - 400 K/UL [facility] MPV 8.0 7 - 11 FL [facility] Specimen Blood Performing Organization Address City/State/Zipcode Phone Number MAIN LAB [address] [place] [address] * COMPREHENSIVE METABOLIC PANEL (02/10/2018 3:35 PM AIR PRESS OPERATOR) Sodium 133 (L) 137 - 147 MMOL/L [...] for questions. Specimen Blood Performing Organization Address City/[facility]/Zipcode Phone Number [facility] [address] [place] [address] * CBC AND DIFF (02/10/2018 3:35 PM AIR PRESS OPERATOR) White Blood Cells 9.3 4.5 - 11.0 [...] MAIN LAB Specimen Blood Performing Organization Address City/[facility]/Zipcode Phone Number [facility] [address] [place] [address] * TRANSFUSE RBC'S NON-BLEEDING PT (02/09/2018 6:42 PM AIR PRESS OPERATOR) * TRANSFUSE RBC'S NON-BLEEDING PT (02/09/2018 6:42 PM AIR PRESS OPERATOR) * GRAM STAIN (02/09/2018 2:30 PM AIR PRESS OPERATOR) Battery Name GRAM STAIN [facility] MAIN [facility] Specimen Description SPUTUM MAIN LAB Special Requests NONE [facility] MAIN LAB Gram Stain LESS THAN 10/LPF [facility] MAIN LAB NEUTROPHILS LESS THAN 10/LPF SQUAMOUS EPITHELIAL CELLS MODERATE MIXED BACTERIA Report Status FINAL [facility]IN [facility] 02/09/2018 Specimen Sputum Performing Organization Address [facility]ode Phone Number [facility] [address] [place] [address] * CULTURE-RESP,LOWER W/SENSITIVITY (02/09/2018 2:30 PM AIR PRESS OPERATOR) Battery Name LOWER RESP CULTURE MAIN LAB Specimen Description SPUTUM [facility] MAIN LAB Special Requests NONE MAIN LAB Direct Gram Stain LESS THAN 10/LPF MAIN LAB NEUTROPHILS LESS THAN 10/LPF SQUAMOUS EPITHELIAL CELLS MODERATE MIXED BACTERIA Culture Moderate growth MAIN LAB NORMAL OROPHARYNGEAL ALVARO Report Status FINAL MAIN LAB 02/11/2018 Specimen Sputum Performing Organization Address [facility] Cent[facility]ode Phone Number MAIN LAB [address] [place] [address] * UA REFLEX CULTURE LABEL (02/09/2018 2:15 PM AIR PRESS OPERATOR) UA Reflex Culture LAB LABEL [facility] MAIN [facility] Specimen Urine Performing Organization Address [facility] Phone Number MAIN LAB [address] [place] [address] * URINALYSIS MICROSCOPIC REFLEX TO CULTURE (02/09/2018 2:15 PM AIR PRESS OPERATOR) WBCs,UA 2-10 0 - 2 /HPF [facility] MAIN [facility] RBCs,UA 0-2 0 - 3 /HPF [facility]IN [facility] Comment,UA Urine submitted for reflex [facility] MAIN LAB culture if criteria are met:WBC>10, positive nitrite and/or >=1+ leukocyte esterase. If quantity is not sufficient, an addendum will follow. Squamous Epithelial Cells 0-2 0 - 5 MAIN LAB Specimen Urine Performing Organization Address [facility]ode Phone Number MAIN LAB [address] [place] [address] * URINALYSIS DIPSTICK REFLEX TO CULTURE (02/09/2018 2:15 PM AIR PRESS OPERATOR) Color,UA YELLOW [facility] MAIN [facility] Turbidity,UA CLEAR CLEAR-CLEAR [facility]IN [facility] Specific [place]-Urine 1.014 1.003 - 1.035 [facility] MAIN [facility] pH,UA 7.0 5.0 - 8.0 [facility]IN [facility] Protein,UA NEG NEG-NEG [facility] Glucose,UA NEG NEG-NEG MAIN LAB [...] negative result. Specimen Urine Performing Organization Address City/[facility]/Zipcode Phone Number MAIN LAB [address] [place] [address] * CULTURE-BLOOD W/SENSITIVITY (02/09/2018 10:30 AM AIR PRESS OPERATOR) Battery Name BLOOD CULTURE MAIN LAB Specimen Description BLOOD MAIN LAB LEFT HAND Special Requests NONE MAIN LAB Culture NO GROWTH 5 DAYS MAIN LAB Report Status FINAL MAIN LAB 02/15/2018 Specimen Blood Performing Organization Address City/[facility] Phone Number MAIN LAB [address] [place] [address] * CULTURE-BLOOD W/SENSITIVITY (02/09/2018 10:00 AM AIR PRESS OPERATOR) Battery Name BLOOD CULTURE MAIN LAB Specimen Description BLOOD MAIN LAB PICC LINE RIGHT ANTECUBITAL Special Requests NONE MAIN LAB Culture NO GROWTH 5 DAYS MAIN LAB Report Status FINAL MAIN LAB 02/15/2018 Specimen Blood Performing Organization Address [facility]ode Phone Number MAIN LAB [address] [place] [address] * TYPE & CROSSMATCH (02/09/2018 10:00 AM AIR PRESS OPERATOR) Units Ordered 1 MAIN LAB Crossmatch Expires 02/12/2018 MAIN LAB Record Check FOUND MAIN LAB ABO/RH(D) O POS [facility] MAIN [facility] Antibody Screen NEG MAIN LAB Electronic Crossmatch YES [facility]IN [facility] Unit Number [id number] [facility] Blood Component Type RBC,ADSOL,LEUKO REDUCED,1ST [facility] MAIN [facility] CONT. Unit Division 0 [facility] MAIN LAB Status OF Unit TRANSFUSED MAIN LAB Transfusion Status OK TO TRANSFUSE MAIN LAB Crossmatch Result COMPATIBLE,ELECTRONIC MAIN LAB Specimen Blood Performing Organization Address City/[facility]/Zipcode Phone Number [facility] [address] [place] [address] * BASIC METABOLIC PANEL CELLULAR THERAPEUTICS (02/09/2018 5:40 AM AIR PRESS OPERATOR) Sodium 133 (L) 137 - 147 MMOL/L [facility] Potassium 3.4 (L) 3.5 - 5.1 MMOL/L [facility] Chloride 96 (L) 98 - 110 MMOL/L [facility] CO2 35 (H) 21 - 30 MMOL/L [facility] Anion Gap 2 (L) 3 - 12 [facility] Glucose 91 70 - 100 MG/DL [facility] Blood Urea Nitrogen 9 7 - 25 MG/DL [facility] Creatinine 0.90 0.4 - 1.24 MG/DL [facility] Calcium 8.2 (L) 8.5 - 10.6 MG/DL [facility] MAIN [...] for questions. Specimen Blood Performing Organization Address City/[facility]/Zipcode Phone Number [facility] [address] [place] [address] * CBC CELLULAR THERAPEUTICS (02/09/2018 5:40 AM AIR PRESS OPERATOR) White Blood Cells 15.7 (H) 4.5 - 11.0 K/UL [facility] RBC 1.96 (L) 4.4 - 5.5 M/UL [facility] Hemoglobin 6.7 (L) 13.5 - 16.5 GM/DL [facility] Hematocrit 19.8 (L) 40 - 50 % [facility] MCV 101.2 (H) 80 - 100 FL [facility] MCH 34.3 (H) 26 - 34 PG [facility] MCHC 33.8 32.0 - 36.0 G/DL [facility] RDW 18.1 (H) 11 - 15 % [facility] Platelet Count 337 150 - 400 K/UL [facility] MPV 7.5 7 - 11 FL [facility] Specimen Blood Performing Organization Address City/[facility]ode Phone Number MA[facility] LAB [address] [place] [address] * BASIC METABOLIC PANEL (02/08/2018 11:21 AM AIR PRESS OPERATOR) Sodium 133 (L) 137 - 147 MMOL/L [facility] Potassium 3.8 3.5 - 5.1 MMOL/L [facility] Chloride 95 (L) 98 - 110 MMOL/L [facility] CO2 34 (H) 21 - 30 MMOL/L [facility] Anion Gap 4 3 - 12 [facility] Glucose 87 70 - 100 MG/DL [facility] Blood Urea Nitrogen 10 7 - 25 MG/DL [facility] Creatinine 1.00 0.4 - 1.24 MG/DL MAIN LAB Calcium 8.4 (L) 8.5 - 10.6 MG/DL MAIN LAB eGFR Non >60 >60 mL/min [facility] Comment: The eGFR is not validated for use in drug dosing adjustments.Continue to use estimated creatinine clearance per dosing reference text.Please contact the Clinical Pharmacist for questions. eGFR >60 >60 mL/min MAIN LAB Comment: The eGFR is not validated for use in drug dosing adjustments.Continue to use estimated creatinine clearance per dosing reference text.Please contact the Clinical Pharmacist for questions. Specimen Blood Performing Organization Address City/[facility]/Zipcode Phone Number MAIN LAB [address] [place] [address] * DIGOXIN LEVEL (02/07/2018 6:03 AM AIR PRESS OPERATOR) Digoxin 1.0 0.5 - 1.0 NG/ML MAIN LAB Specimen Blood Performing Organization Address City/[facility]/Zipcode Phone Number MAIN LAB [address] [place] [address] * MAGNESIUM (02/07/2018 6:03 AM AIR PRESS OPERATOR) Magnesium 2.0 1.6 - 2.6 mg/dL MAIN LAB Specimen Blood Performing Organization Address City/[facility]/Zipcode Phone Number MAIN LAB [address] [place] [address] * BASIC METABOLIC PANEL CELLULAR THERAPEUTICS (02/07/2018 6:03 AM AIR PRESS OPERATOR) Sodium 137 137 - 147 MMOL/L MAIN LAB Potassium 3.4 (L) 3.5 - 5.1 MMOL/L MAIN LAB Chloride 95 (L) 98 - 110 MMOL/L [facility] CO2 39 (H) 21 - 30 MMOL/L [facility] Anion Gap 3 3 - 12 [facility] Glucose 99 70 - 100 MG/DL [facility] Blood Urea Nitrogen 9 7 - 25 MG/DL [facility] Creatinine 1.29 (H) 0.4 - 1.24 MG/DL [facility] Calcium 8.3 (L) 8.5 - 10.6 MG/DL [facility] eGFR Non 56 (L) >60 mL/min [facility] Comment: The eGFR is not validated for use in drug dosing adjustments.Continue to use estimated creatinine clearance per dosing reference text.Please contact the Clinical Pharmacist for questions. eGFR >60 >60 mL/min [facility]IN [facility] Comment: The eGFR is not validated for use in drug dosing adjustments.Continue to use estimated creatinine clearance per dosing reference text.Please contact the Clinical Pharmacist for questions. Specimen Blood Performing Organization Address City/[facility] Phone Number [facility] [address] [place] [address] * CBC CELLULAR THERAPEUTICS (02/07/2018 6:03 AM AIR PRESS OPERATOR) White Blood Cells 10.8 4.5 - 11.0 K/UL [facility] RBC 2.30 (L) 4.4 - 5.5 M/UL [facility] Hemoglobin 7.8 (L) 13.5 - 16.5 GM/DL [facility] Hematocrit 23.8 (L) 40 - 50 % MAIN LAB MCV 103.6 (H) 80 - 100 FL [facility]IN [facility] MCH 33.8 26 - 34 PG [facility] MCHC 32.7 32.0 - 36.0 G/DL [facility] RDW 17.6 (H) 11 - 15 % MAIN LAB Platelet Count 256 150 - 400 K/UL [facility] MPV 7.6 7 - 11 FL [facility] Specimen Blood Performing Organization Address City/[facility]/Zipcode Phone Number [facility] [address] [place] [address] * POC GLUCOSE (02/06/2018 11:57 AM AIR PRESS OPERATOR) Glucose, POC 122 (H) 70 - 100 MG/DL MAIN LAB Performing Organization Address City/[facility]ode Phone Number [facility] [address] [place] [address] * MAGNESIUM (02/06/2018 6:05 AM AIR PRESS OPERATOR) Magnesium 1.4 (L) 1.6 - 2.6 mg/dL [facility] Specimen Blood Performing Organization Address City/[facility] Phone Number [facility] [address] [place] [address] * BASIC METABOLIC PANEL CELLULAR THERAPEUTICS (02/06/2018 6:05 AM AIR PRESS OPERATOR) Sodium 137 137 - 147 MMOL/L [facility] Potassium 3.1 (L) 3.5 - 5.1 MMOL/L [facility] Chloride 95 (L) 98 - 110 MMOL/L [facility] CO2 37 (H) 21 - 30 MMOL/L [facility] Anion Gap 5 3 - 12 [facility] Glucose 92 70 - 100 MG/DL [facility] Blood Urea Nitrogen 8 7 - 25 MG/DL [facility] Creatinine 1.12 0.4 - 1.24 MG/DL [facility] Calcium 8.3 (L) 8.5 - 10.6 MG/DL [facility] [...] for questions. Specimen Blood Performing Organization Address City/[facility]/Zipcode Phone Number [facility] [address] [place] [address] * CBC CELLULAR THERAPEUTICS (02/06/2018 6:05 AM AIR PRESS OPERATOR) White Blood Cells 11.9 (H) 4.5 - 11.0 K/UL [facility] RBC 2.34 (L) 4.4 - 5.5 M/UL [facility] Hemoglobin 7.9 (L) 13.5 - 16.5 GM/DL [facility] Hematocrit 23.8 (L) 40 - 50 % [facility] MCV 101.7 (H) 80 - 100 FL [facility] MCH 34.0 26 - 34 PG [facility] MCHC 33.4 32.0 - 36.0 G/DL [facility] RDW 18.2 (H) 11 - 15 % [facility] Platelet Count 259 150 - 400 K/UL [facility] MPV 7.6 7 - 11 FL [facility] Specimen Blood Performing Organization Address City/[facility]/Zipcode Phone Number [facility] [address] [place] [address] * BASIC METABOLIC PANEL CELLULAR THERAPEUTICS (02/05/2018 6:00 AM AIR PRESS OPERATOR) Sodium 139 137 - 147 MMOL/L [facility] Potassium 3.5 3.5 - 5.1 MMOL/L [facility] Chloride 101 98 - 110 MMOL/L [facility] CO2 33 (H) 21 - 30 MMOL/L [facility] Anion Gap 5 3 - 12 [facility] Glucose 88 70 - 100 MG/DL [facility] Blood Urea Nitrogen 8 7 - 25 MG/DL [facility] Creatinine 1.10 0.4 - 1.24 MG/DL [facility] Calcium 8.3 (L) 8.5 - 10.6 MG/DL [facility] [...] for questions. Specimen Blood Performing Organization Address City/[facility]/Zipcode Phone Number [facility] [address] [place] [address] * CBC CELLULAR THERAPEUTICS (02/05/2018 6:00 AM AIR PRESS OPERATOR) White Blood Cells 12.1 (H) 4.5 - 11.0 K/UL [facility] RBC 2.27 (L) 4.4 - 5.5 M/UL [facility] Hemoglobin 7.8 (L) 13.5 - 16.5 GM/DL [facility] Hematocrit 23.1 (L) 40 - 50 % [facility] MCV 102.0 (H) 80 - 100 FL [facility] MCH 34.4 (H) 26 - 34 PG [facility] MCHC 33.7 32.0 - 36.0 G/DL [facility] RDW 17.8 (H) 11 - 15 % [facility] Platelet Count 217 150 - 400 K/UL [facility] MPV 7.4 7 - 11 FL [facility] Specimen Blood Performing Organization Address City/[facility]/Zipcode Phone Number [facility] [address] [place] [address] * BASIC METABOLIC PANEL CELLULAR THERAPEUTICS (02/04/2018 5:54 AM AIR PRESS OPERATOR) Sodium 139 137 - 147 MMOL/L [facility] Potassium 3.6 3.5 - 5.1 MMOL/L [facility] Chloride 105 98 - 110 MMOL/L [facility] CO2 31 (H) 21 - 30 MMOL/L [facility] Anion Gap 3 3 - 12 [facility] Glucose 112 (H) 70 - 100 MG/DL [facility] Blood Urea Nitrogen 5 (L) 7 - 25 MG/DL [facility] Creatinine 1.35 (H) 0.4 - 1.24 MG/DL [facility] Calcium 8.4 (L) 8.5 - 10.6 MG/DL [facility] eGFR Non 54 (L) >60 mL/min [facility] Comment: The [...] for questions. Specimen Blood Performing Organization Address City/[facility]/Zipcode Phone Number MA[facility] [address] [place] [address] * CBC CELLULAR THERAPEUTICS (02/04/2018 5:54 AM AIR PRESS OPERATOR) White Blood Cells 12.3 (H) 4.5 - 11.0 K/UL [facility] RBC 2.36 (L) 4.4 - 5.5 M/UL [facility] Hemoglobin 8.0 (L) 13.5 - 16.5 GM/DL [facility] Hematocrit 24.3 (L) 40 - 50 % [facility] MCV 103.0 (H) 80 - 100 FL [facility] MCH 33.8 26 - 34 PG [facility] MCHC 32.8 32.0 - 36.0 G/DL [facility] RDW 17.9 (H) 11 - 15 % [facility] Platelet Count 221 150 - 400 K/UL [facility] MPV 7.5 7 - 11 FL [facility] Specimen Blood Narrative Performed At Performing Organization Address City/[facility]/Zipcode Phone Number [facility] [address] [place] [phone] * BASIC METABOLIC PANEL CELLULAR THERAPEUTICS (02/03/2018 5:43 AM AIR PRESS OPERATOR) Sodium 138 137 - 147 MMOL/L [facility] Potassium 3.4 (L) 3.5 - 5.1 MMOL/L [facility] Chloride 103 98 - 110 MMOL/L [facility] CO2 31 (H) 21 - 30 MMOL/L [facility] Anion Gap 4 3 - 12 [facility] Glucose 94 70 - 100 MG/DL [facility] Blood Urea Nitrogen 6 (L) 7 - 25 MG/DL [facility] Creatinine 1.41 (H) 0.4 - 1.24 MG/DL [facility] Calcium 8.0 (L) 8.5 - 10.6 MG/DL [facility] eGFR Non 51 (L) >60 mL/min [facility] Comment: The [...] for questions. Specimen Blood Performing Organization Address City/[facility]/Zipcode Phone Number [facility] [address] [place] [address] * CBC CELLULAR THERAPEUTICS (02/03/2018 5:43 AM AIR PRESS OPERATOR) White Blood Cells 10.0 4.5 - 11.0 K/UL [facility] RBC 2.16 (L) 4.4 - 5.5 M/UL [facility] Hemoglobin 7.3 (L) 13.5 - 16.5 GM/DL [facility] Hematocrit 22.2 (L) 40 - 50 % [facility] MCV 102.6 (H) 80 - 100 FL [facility] MCH 34.0 26 - 34 PG [facility] MCHC 33.1 32.0 - 36.0 G/DL [facility] RDW 17.4 (H) 11 - 15 % [facility] Platelet Count 204 150 - 400 K/UL [facility] MPV 7.3 7 - 11 FL [facility] Specimen Blood Performing Organization Address City/State/Zipcode Phone Number [facility] [address] [place] [address] * EXERCISE OXIMETRY-SCAN (02/02/2018 12:00 AM AIR PRESS OPERATOR) Narrative Performed At Ordered by an unspecified provider. * SLEEP STUDY-SCAN (02/02/2018 12:00 AM AIR PRESS OPERATOR) Narrative Performed At Ordered by an unspecified provider. in this encounter Visit Diagnoses Diagnosis Critical illness myopathy - Primary CHF (congestive heart failure) (HCC) Congestive heart failure, unspecified CAD (coronary artery disease) Coronary atherosclerosis of unspecified type of vessel, [place] or graft Paroxysmal 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 (HCC) Atrial fibrillation longterm current use of anticoagulant Long-term (current) use of anticoagulants COPD (chronic obstructive pulmonary disease) (HCC) Chronic airway obstruction, not elsewhere classified HTN (hypertension) Unspecified essential hypertension HLD (hyperlipidemia) Other and unspecified hyperlipidemia S/P ablation of 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 Other postprocedural status Pneumonia Pneumonia, organism unspecified Cytomegalovirus (CMV) viremia (HCC) Cytomegaloviral disease Impaired mobility and activities of daily living Mechanical problems with limbs Loculated pleural effusion Unspecified pleural effusion Acute on chronic respiratory failure with hypoxia and hypercapnia (HCC) 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 COPD, severe (HCC) Chronic airway obstruction, not elsewhere classified Secondary spontaneous pneumothorax Legionella pneumonia (HCC) Legionnaires' disease Atrial fibrillation with RVR (HCC) Atrial fibrillation Empyema of right pleural space (HCC) Empyema without mention of fistula Moderate malnutrition (HCC) Malnutrition of moderate degree in this encounter Admitting Diagnoses Diagnosis Critical illness myopathy in this encounter Administered Medications Action Date Dose Rate Site Medication Order MAR Action 02/18/2018 8:04 AM AIR PRESS OPERATOR 1,000 mg acetaminophen (TYLENOL) tablet 1,000 mg Given 1,000 mg, Oral, THREE TIMES DAILY, First dose on Wed02/04/18 at 0900, Until Discontinued, TOTAL ACETAMINOPHEN DOSE NOT TO EXCEED 4GM DAILY, Rehab Admission 1,000 mg Given 02/17/2018 8:45 PM AIR PRESS OPERATOR 1,000 mg Given 02/17/2018 4:38 PM AIR PRESS OPERATOR acetaminophen (TYLENOL) tablet 1,000 mg 1,000 mg, Oral, THREE TIMES DAILY PRN, Starting Wed02/18/18 at 1145, Until Wed02/21/18 at 1341, Pain non-opioid: may be used alone or in combination with opioid analgesia, TOTAL ACETAMINOPHEN DOSE NOT TO EXCEED 4GM DAILY, Rehab Admission 02/04/2018 5:42 AM AIR PRESS OPERATOR 650 mg acetaminophen (TYLENOL) tablet 650 mg Given 650 mg, Oral, EVERY 4 HOURS PRN, Starting Wed02/02/18 at 1658, Until Wed02/04/18 at 0848, Pain non-opioid: may be used alone or in combination with opioid analgesia, Temp > 38.5 C, TOTAL ACETAMINOPHEN DOSE NOT TO EXCEED 4GM DAILY, Rehab Admission 650 mg Given 02/02/2018 6:18 PM AIR PRESS OPERATOR 02/06/2018 9:37 PM AIR PRESS OPERATOR 3 mL acetylcysteine (MUCOMYST) 200 mg/mL (20 Given %) nebulizer solution 3 mL 3 mL, Inhalation, RT EVERY 12 HOURS, First dose on Wed02/02/18 at 1800, Until Discontinued, When administered by RT, will be per RT policy. Jblt=625fs/ml, 3 mL Given 02/06/2018 9:20 AM AIR PRESS OPERATOR 3 mL Given 02/05/2018 8:35 PM AIR PRESS OPERATOR 02/08/2018 10:19 AM AIR PRESS OPERATOR 2 puffs albuterol (PROAIR HFA, VENTOLIN HFA, or Given PROVENTIL HFA) inhaler 2 puff 2 puff, Inhalation, RT EVERY 4 HOURS PRN, Starting Wed02/08/18 at 1014, Until Wed02/08/18 at 1024, RT PROTOCOL, When administered by RT, will be per RT policy., 02/20/2018 9:28 PM AIR PRESS OPERATOR 2 puffs albuterol (PROAIR HFA, VENTOLIN HFA, or Given PROVENTIL HFA) inhaler 2 puff 2 puff, Inhalation, RT TWICE DAILY AND PRN, First dose on Wed02/08/18 at 1800, Until Discontinued, When administered by RT, will be per RT policy., 2 puffs Given 02/20/2018 9:30 AM AIR PRESS OPERATOR 2 puffs Given 02/19/2018 9:34 PM AIR PRESS OPERATOR 02/07/2018 9:18 PM AIR PRESS OPERATOR 2.5 mg albuterol 0.5% (PROVENTIL; VENTOLIN) Given nebulizer solution 2.5 mg 2.5 mg, Inhalation, RT TWICE DAILY AND PRN, First dose on Wed02/02/18 at 1800, Until Discontinued, When administered by RT, will be per RT policy., 2.5 mg Given 02/07/2018 9:50 AM AIR PRESS OPERATOR 2.5 mg Given 02/06/2018 9:37 PM AIR PRESS OPERATOR ALBUTEROL SULFATE 90 MCG/ACTUATION IN HFAA (Cabinet Override) NOW, 1 dose, Wed02/08/18 at 1030, Created by cabinet override, Created by cabinet override, 02/21/2018 8:35 AM AIR PRESS OPERATOR 875 mg amoxicillin/K clavulanate (AUGMENTIN) Given tablet 875 mg 875 mg, Oral, TWICE DAILY WITH MEALS, First dose on Wed02/16/18 at 1700, Until Discontinued, NURSING: Please educate patient and document: Give with food., 875 mg Given 02/20/2018 4:56 PM AIR PRESS OPERATOR 875 mg Given 02/20/2018 9:35 AM AIR PRESS OPERATOR 02/07/2018 8:51 AM AIR PRESS OPERATOR 500 mg ascorbic acid (VITAMIN C) tablet 500 mg Given 500 mg, Oral, DAILY, First dose on Wed02/03/18 at 0900, Until Discontinued 500 mg Given 02/06/2018 8:20 AM AIR PRESS OPERATOR 500 mg Given 02/05/2018 9:15 AM AIR PRESS OPERATOR 02/20/2018 9:38 AM AIR PRESS OPERATOR 1 g bacitracin topical ointment Given Topical, TWICE DAILY, First dose on Wed02/03/18 at 2100, Until Discontinued, Apply to ears, Given 02/19/2018 9:22 PM AIR PRESS OPERATOR Given 02/19/2018 8:26 AM AIR PRESS OPERATOR 02/07/2018 8:51 AM AIR PRESS OPERATOR 400 Units cholecalciferol (VITAMIN D-3) tablet 400 Given Units 400 Units, Oral, DAILY, First dose on Wed02/03/18 at 0900, Until Discontinued 400 Units Given 02/06/2018 8:19 AM AIR PRESS OPERATOR 400 Units Given 02/05/2018 9:11 AM AIR PRESS OPERATOR 02/21/2018 8:35 AM AIR PRESS OPERATOR 125 mcg digoxin (LANOXIN) tablet 125 mcg Given 125 mcg, Oral, DAILY, First dose on Brenda 02/03/18 at 0900, Until Discontinued, Hold for heart rate < 60 bpm. NOTE: PHARMACOKINETIC MONITORING, 125 mcg Given 02/20/2018 9:38 AM AIR PRESS OPERATOR 125 mcg Given 02/19/2018 8:27 AM AIR PRESS OPERATOR 02/05/2018 9:40 PM AIR PRESS OPERATOR 100 mg docusate (COLACE) capsule 100 mg Given 100 mg, Oral, TWICE DAILY, First dose on Wed02/02/18 at 2100, Until Discontinued, Hold for loose stools, Rehab Admission 100 mg Given 02/02/2018 8:20 PM AIR PRESS OPERATOR docusate (COLACE) capsule 100 mg 100 mg, Oral, TWICE DAILY PRN, Starting Wed02/16/18 at 1230, Until Wed02/21/18 at 1341, Constipation PO, Hold for loose stools, Rehab Admission 02/21/2018 8:37 AM AIR PRESS OPERATOR 40 mg Abdominal Tissue enoxaparin (LOVENOX) syringe 40 mg Given 40 mg, Subcutaneous, DAILY, First dose on Brenda 02/03/18 at 0900, Until Discontinued, For patients undergoing surgery: Consult physician in advance -- enoxaparin is an anticoagulant and may need to be held for 12hr prior to surgery or invasive procedures. NOTE: This is a HIGH ALERT Medication., 40 mg Abdomen:LLQ Given 02/20/2018 9:33 AM AIR PRESS OPERATOR 40 mg Abdomen:LLQ Given 02/19/2018 8:27 AM AIR PRESS OPERATOR 02/13/2018 8:47 PM AIR PRESS OPERATOR 20 mg famotidine (PEPCID) oral suspension 20 Given mg 20 mg, Oral, TWICE DAILY, First dose on Wed02/13/18 at 1245, Until Discontinued 20 mg Given 02/13/2018 1:14 PM AIR PRESS OPERATOR 02/16/2018 9:20 AM AIR PRESS OPERATOR 20 mg famotidine (PEPCID) tablet 20 mg Given 20 mg, Oral, TWICE DAILY, First dose on Wed02/14/18 at 2100, Until Discontinued 20 mg Given 02/15/2018 8:12 PM AIR PRESS OPERATOR 20 mg Given 02/15/2018 8:42 AM AIR PRESS OPERATOR 02/18/2018 8:09 AM AIR PRESS OPERATOR 2 sprays fluticasone (FLONASE) nasal spray 2 Given spray 2 spray, Each Nostril, DAILY, First dose on Brenda 02/03/18 at 0900, Until Discontinued 2 sprays Given 02/17/2018 8:47 AM AIR PRESS OPERATOR 2 sprays Given 02/09/2018 10:38 AM AIR PRESS OPERATOR 02/21/2018 8:36 AM AIR PRESS OPERATOR 20 mg furosemide (LASIX) tablet 20 mg Given 20 mg, Oral, TWICE DAILY, First dose on Wed02/11/18 at 1215, Until Discontinued 20 mg Given 02/20/2018 4:56 PM AIR PRESS OPERATOR 20 mg Given 02/20/2018 9:37 AM AIR PRESS OPERATOR 02/04/2018 5:15 PM AIR PRESS OPERATOR 40 mg furosemide (LASIX) tablet 40 mg Given 40 mg, Oral, TWICE DAILY, First dose on Wed02/04/18 at 0915, Until Discontinued 40 mg Given 02/04/2018 9:59 AM AIR PRESS OPERATOR 02/07/2018 8:51 AM AIR PRESS OPERATOR 60 mg furosemide (LASIX) tablet 60 mg Given 60 mg, Oral, TWICE DAILY, First dose on Wed02/05/18 at 0900, Until Discontinued 60 mg Given 02/06/2018 5:23 PM AIR PRESS OPERATOR 60 mg Given 02/06/2018 8:19 AM AIR PRESS OPERATOR 02/21/2018 8:36 AM AIR PRESS OPERATOR 600 mg guaiFENesin LA (MUCINEX) tablet 600 mg Given 600 mg, Oral, TWICE DAILY, First dose on Wed02/02/18 at 2100, Until Discontinued 600 mg Given 02/20/2018 8:57 PM AIR PRESS OPERATOR 600 mg Given 02/20/2018 9:37 AM AIR PRESS OPERATOR 02/21/2018 5:45 AM AIR PRESS OPERATOR 372 mg isavuconazonium sulfate (CRESEMBA) Given capsule 372 mg 372 mg, Oral, DAILY, First dose on Wed02/03/18 at 0500, Until Discontinued 372 mg Given 02/20/2018 4:51 AM AIR PRESS OPERATOR 372 mg Given 02/19/2018 4:30 AM AIR PRESS OPERATOR 02/20/2018 9:39 AM AIR PRESS OPERATOR 1 patch Neck lidocaine (LIDODERM) 5 % topical patch Patch/Topica 1-2 patch l Applied 1-2 patch, Topical, Administer over 12 Hours, DAILY, First dose on Wed02/03/18 at 0900, Until Discontinued, NURSING PLEASE NOTE: Apply patch ONCE DAILY to chest and REMOVE after designated duration. Apply only to intact skin. Patch may be cut to fit affected area., 1 patch Abdominal Tissue Patch/Topical Applied 02/08/2018 9:01 AM AIR PRESS OPERATOR 2 patches Chest, Left Patch/Topical Applied 02/07/2018 9:00 AM AIR PRESS OPERATOR 02/14/2018 12:31 PM AIR PRESS OPERATOR 0.5 mg LORazepam (ATIVAN) tablet 0.5 mg Given 0.5 mg, Oral, ONCE, 1 dose, 02/14/18 at 1230 02/21/2018 8:38 AM AIR PRESS OPERATOR 535 mg magnesium chloride (MAG DELAY) tablet Given 535 mg 535 mg, Oral, TWICE DAILY, First dose on Wed02/16/18 at 2100, Until Discontinued, Each 535mg delivers 64mg elemental magnesium., 535 mg Given 02/20/2018 9:00 PM AIR PRESS OPERATOR 535 mg Given 02/20/2018 9:34 AM AIR PRESS OPERATOR 02/16/2018 9:22 AM AIR PRESS OPERATOR 400 mg magnesium oxide (MAG-OX) tablet 400 mg Given 400 mg, Oral, TWICE DAILY, First dose on Wed02/02/18 at 2100, Until Discontinued, Delivers 241.3mg elemental magnesium per tab, 400 mg Given 02/15/2018 8:12 PM AIR PRESS OPERATOR 400 mg Given 02/15/2018 8:42 AM AIR PRESS OPERATOR 02/06/2018 5:07 PM AIR PRESS OPERATOR 4 g magnesium sulfate 4 g/50 mL IVPB Given - New 4 g, Intravenous, 50 mL, Administer over Bag 4 Hours, ONCE, 1 dose, Liscomb 02/06/18 at 1600, Each 1gm delivers 8.1 mEq Magnesium, 02/20/2018 8:57 PM AIR PRESS OPERATOR 3 mg melatonin tablet 3 mg Given 3 mg, Oral, AT BEDTIME DAILY, First dose on Wed02/17/18 at 2100, Until Discontinued 3 mg Given 02/19/2018 9:21 PM AIR PRESS OPERATOR 3 mg Given 02/18/2018 8:37 PM AIR PRESS OPERATOR 02/21/2018 8:36 AM AIR PRESS OPERATOR 12.5 mg metoprolol tartrate (LOPRESSOR) tablet Given 12.5 mg 12.5 mg, Oral, TWICE DAILY, First dose on Wed02/02/18 at 2100, Until Discontinued, Hold for heart rate < 60 bpm or systolic BP < 100, 12.5 mg Given 02/20/2018 8:57 PM AIR PRESS OPERATOR 12.5 mg Given 02/20/2018 9:36 AM AIR PRESS OPERATOR 02/21/2018 8:35 AM AIR PRESS OPERATOR 4 mg ondansetron (ZOFRAN) tablet 4 mg Given 4 mg, Oral, THREE TIMES DAILY WITH MEALS, First dose on Brenda 02/03/18 at 1400, Until Discontinued 4 mg Given 02/20/2018 6:15 PM AIR PRESS OPERATOR 4 mg Given 02/20/2018 12:02 PM AIR PRESS OPERATOR 02/11/2018 9:11 AM AIR PRESS OPERATOR 5 mg oxyCODONE (ROXICODONE, OXY-IR) tablet 5 Given mg 5 mg, Oral, EVERY 3 HOURS PRN, Starting Wed02/02/18 at 1658, Until Wed02/14/18 at 1010, Pain PO 5 mg Given 02/10/2018 12:45 PM AIR PRESS OPERATOR 5 mg Given 02/10/2018 5:20 AM AIR PRESS OPERATOR 02/13/2018 9:57 AM AIR PRESS OPERATOR [address] (PROTONIX) tablet 40 mg Given 40 mg, Oral, DAILY, First dose on Wed02/03/18 at 0900, Until Discontinued, Do not crush or chew tablet., 40 mg Given 02/12/2018 10:01 AM AIR PRESS OPERATOR 40 mg Given 02/11/2018 8:44 AM AIR PRESS OPERATOR 02/20/2018 8:58 PM AIR PRESS OPERATOR [address] (PROTONIX) tablet 40 mg Given 40 mg, Oral, TWICE DAILY, First dose on Wed02/16/18 at 1345, Until Discontinued, Do not crush or chew tablet., 40 mg Given 02/20/2018 12:02 PM AIR PRESS OPERATOR 40 mg Given 02/19/2018 9:21 PM AIR PRESS OPERATOR 02/03/2018 10:23 AM AIR PRESS OPERATOR 3.375 g 200 mL/hr piperacillin/tazobactam (ZOSYN) 3.375 g Given in sodium chloride 0.9% (NS) 100 mL IVPB (MB+) 3.375 g, Intravenous, at 200 mL/hr, EVERY 6 HOURS, First dose on Wed02/02/18 at 2030, Until Discontinued 3.375 g 200 mL/hr Given 02/03/2018 2:23 AM AIR PRESS OPERATOR 3.375 g 200 mL/hr Given 02/02/2018 9:07 PM AIR PRESS OPERATOR 02/16/2018 12:40 PM AIR PRESS OPERATOR 3.375 g 200 mL/hr piperacillin/tazobactam (ZOSYN) 3.375 g Given in sodium chloride 0.9% (NS) 100 mL IVPB (MB+) 3.375 g, Intravenous, at 200 mL/hr, EVERY 6 HOURS, First dose on Wed02/09/18 at 1030, Until Discontinued 3.375 g 200 mL/hr Given 02/16/2018 6:14 AM AIR PRESS OPERATOR 3.375 g 200 mL/hr Given 02/16/2018 12:13 AM AIR PRESS OPERATOR 02/03/2018 10:23 AM AIR PRESS OPERATOR 17 g polyethylene glycol 3350 (MIRALAX) Given packet 17 g 17 g (1 packet), Oral, TWICE DAILY, First dose on Wed02/02/18 at 2100, Until Discontinued, 8.5 GRAMS=0.5 PACKET 17 GRAMS=1 PACKET 34 GRAMS=2 PACKETS, 02/07/2018 1:02 PM AIR PRESS OPERATOR 40 mEq potassium chloride oral solution 40 mEq Given 40 mEq, Oral, ONCE, 1 dose, Wed02/07/18 at 1230 02/09/2018 5:49 PM AIR PRESS OPERATOR 40 mEq potassium chloride oral solution 40 mEq Given 40 mEq, Oral, ONCE, 1 dose, Wed02/09/18 at 1330 02/15/2018 8:39 PM AIR PRESS OPERATOR 40 mEq potassium chloride oral solution 40-60 Given mEq 40-60 mEq, Per NG tube, NEEDED, Starting Wed02/15/18 at 2106, Until Wed02/18/18 at 1313, Other..., For potassium replacement, See admin instructions, If urine output < 30 mL/hr or SCr >2 mg/dL, check with physician prior to giving K+ replacement. - K 3-4 mmol/L, administer KCl 40 mEq PO/NG x1 dose - K 2.5-2.9 mmol/L, administer KCl 60 mEq PO/NG x1 dose AND notify physician for additional dosing - K < 2.5 mmol/L notify physician for dosing Recheck serum potassium two hours after completion of appropriate replacement dose for K<3. Repeat this standing order x 2. Notify physician if serum potassium < 3.3 mmol/L after three replacements. Do NOT break or crush tablet, 02/03/2018 2:40 PM AIR PRESS OPERATOR 60 mEq potassium chloride oral solution 60 mEq Given 60 mEq, Oral, ONCE, 1 dose, Brenda 02/03/18 at 1315 02/21/2018 11:07 AM AIR PRESS OPERATOR 60 mEq potassium chloride oral solution 60 mEq Given 60 mEq, Oral, ONCE, 1 dose, 02/21/18 at 1115 02/06/2018 10:03 AM AIR PRESS OPERATOR 40 mEq potassium chloride SR (K-DUR) tablet 40 Given mEq 40 mEq, Oral, ONCE, 1 dose, 02/06/18 at 0830, - Tablet may be dispersed in water. Place tab in 30 mL of water for 40-60 seconds. - Gently swirl until fully dispersed. If particles remain after admin, add small amount of water and admin remaining content. - DO NOT CRUSH. Tablet may be split in half. , 02/06/2018 5:23 PM AIR PRESS OPERATOR 40 mEq potassium chloride SR (K-DUR) tablet 40 Given mEq 40 mEq, Oral, ONCE, 1 dose, Liscomb 02/06/18 at 1700, - Tablet may be dispersed in water. Place tab in 30 mL of water for 40-60 seconds. - Gently swirl until fully dispersed. If particles remain after admin, add small amount of water and admin remaining content. - DO NOT CRUSH. Tablet may be split in half. , 02/14/2018 8:07 AM AIR PRESS OPERATOR 40 mEq potassium chloride SR (K-DUR) tablet 40 Given mEq 40 mEq, Oral, ONCE, 1 dose, 02/14/18 at 0800, - Tablet may be dispersed in water. Place tab in 30 mL of water for 40-60 seconds. - Gently swirl until fully dispersed. If particles remain after admin, add small amount of water and admin remaining content. - DO NOT CRUSH. Tablet may be split in half. , 02/20/2018 2:45 PM AIR PRESS OPERATOR 10 mg prochlorperazine maleate (COMPAZINE) Given tablet 10 mg 10 mg, Oral, EVERY 6 HOURS PRN, Starting Wed02/11/18 at 0836, Until Wed02/21/18 at 1341, Nausea/Vomiting PO 10 mg Given 02/14/2018 8:18 AM AIR PRESS OPERATOR 10 mg Given 02/12/2018 9:29 PM AIR PRESS OPERATOR 02/05/2018 9:40 PM AIR PRESS OPERATOR 2 tablets senna (SENOKOT) tablet 2 tablet Given 2 tablet, Oral, AT BEDTIME DAILY, First dose on Wed02/02/18 at 2100, Until Discontinued, Hold for loose stools, Rehab Admission 2 tablets Given 02/02/2018 8:20 PM AIR PRESS OPERATOR senna (SENOKOT) tablet 2 tablet 2 tablet, Oral, AT BEDTIME PRN, Starting Wed02/16/18 at 1230, Until Wed02/21/18 at 1341, Constipation PO, Hold for loose stools, Rehab Admission 02/07/2018 3:00 PM AIR PRESS OPERATOR 500 mL 125 mL/hr sodium chloride 0.9 % infusion Given - New 500 mL, 500 mL, Intravenous, at 125 Bag mL/hr, CONTINUOUS, Starting Wed02/07/18 at 1445, Until Wed02/07/18 at 2001 02/02/2018 9:08 PM AIR PRESS OPERATOR 250 mL SODIUM CHLORIDE 0.9 % IV SOLP (Cabinet Given - New Override) Bag NOW, 1 dose, Wed02/02/18 at 2030, Created by cabinet override, Created by cabinet override, 02/03/2018 10:25 AM AIR PRESS OPERATOR 250 mL SODIUM CHLORIDE 0.9 % IV SOLP (Cabinet Given - New Override) Bag NOW, 1 dose, Wed02/03/18 at 1015, Created by cabinet override, Created by cabinet override, 02/09/2018 10:36 PM AIR PRESS OPERATOR 100 mL SODIUM CHLORIDE 0.9 % IV SOLP (Cabinet Given - New Override) Bag NOW, 1 dose, Wed02/09/18 at 2230, Minna Harris.: ralphinet burke, Minna Harris.: ralphinet override, 02/10/2018 4:30 AM AIR PRESS OPERATOR 100 mL SODIUM CHLORIDE 0.9 % IV SOLP (Cabinet Given - New Override) Bag NOW, 1 dose, Brenda 02/10/18 at 0430, Minna Harris.: ralphinet burke, Minna Harris: cabinet override, 02/21/2018 8:38 AM AIR PRESS OPERATOR 30 mL sodium chloride PF 0.9% flush 30 mL Given 30 mL, Intravenous, FLUSH THREE TIMES DAILY, First dose on Brenda 02/03/18 at 0000, Until Discontinued, Flush central, Midline or PICC line, with 5-10 mL every 8 hours using the push-pause (turbulent) method. Flush all lumens that do not have a continuous infusion. After obtaining blood specimen, flush catheter with 20 mL., 30 mL Given 02/20/2018 8:58 PM AIR PRESS OPERATOR 30 mL Given 02/20/2018 4:57 PM AIR PRESS OPERATOR 02/07/2018 8:51 AM AIR PRESS OPERATOR 100 mg thiamine mononitrate tablet 100 mg Given 100 mg, Oral, DAILY, First dose on Brenda 02/03/18 at 0900, Until Discontinued 100 mg Given 02/06/2018 8:19 AM AIR PRESS OPERATOR 100 mg Given 02/05/2018 9:15 AM AIR PRESS OPERATOR 02/19/2018 9:23 AM AIR PRESS OPERATOR 1 puff umeclidinium-vilanterol (ANORO ELLIPTA) Given 62.5-25 mcg/actuation inhaler 1 puff 1 puff, Inhalation, RT DAILY, First dose on Brenda 02/03/18 at 0600, Until Discontinued, When administered by RT, will be per RT policy., 1 puff Given 02/18/2018 9:34 AM AIR PRESS OPERATOR 1 puff Given 02/16/2018 10:31 AM AIR PRESS OPERATOR 02/18/2018 8:04 AM AIR PRESS OPERATOR 900 mg valGANciclovir (VALCYTE) tablet 900 mg Given 900 mg, Oral, TWICE DAILY WITH MEALS, First dose on 02/12/18 at 1700, Until Discontinued, NURSING: Please educate patient and document: Give with food. Do NOT break or crush tablets (order suspension to give via tube) NOTE: If or wanting to become , do not touch broken tablets without gloves due to risk of defects., 900 mg Given 02/17/2018 4:38 PM AIR PRESS OPERATOR 900 mg Given 02/17/2018 8:45 AM AIR PRESS OPERATOR 02/20/2018 9:40 AM AIR PRESS OPERATOR vitamin A & D topical ointment Given Topical, DAILY, First dose on Brenda 02/03/18 at 0900, Until Discontinued, Apply A&D ointment to wounds and cover with a Biatain foam. 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
--- OUTSIDE RECORDS SUMMARY | 2018-03-30 14:06 | XMS REPORT | Encounter Summary ---
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 Name Role Phone SebMai Unavailable Unavailable Samir Lopez MD Unavailable Unavailable Samara Lugo RN Unavailable Unavailable Flavio Jackson MD PCP Reason for Visit * Auth/Cert Referred By Contact Referred To Contact Status Reason Specialty Diagnoses / Procedures Diagnoses Pneumonia Loculated pleural effusion PNEUMONIA Encounter Details Care Team Description Date Type Department Nettie Smith MD [address] [place] [address] [phone] Shirin Wallace MD [address] [place] [address] David River MD [address] [place] [address] [phone] Henry Flores MD [address] [place] [address] [phone] Prashanth Chawla MD [address] [place] [address] [phone] Mohan Johnson MD [address] [facility] [address] [place] [address] [phone] Pneumonia 01/21/2018 [facility] Cardiothor Prgrsv cr - Encounter [address] 02/02/2018 [place] [address] Social History Date Tobacco Use Types Packs/Day [...] Vital Signs Time Taken Vital Sign Reading 02/02/2018 11:30 AM BUSINESS TRANSFORMATION CONSULTANT Blood Pressure 122/74 02/02/2018 11:30 AM BUSINESS TRANSFORMATION CONSULTANT Pulse 94 02/02/2018 11:30 AM BUSINESS TRANSFORMATION CONSULTANT Temperature 36.4 C (97.5 F) - Respiratory Rate - 02/02/2018 11:30 AM BUSINESS TRANSFORMATION CONSULTANT Oxygen Saturation 97% - Inhaled Oxygen - Concentration 02/01/2018 7:00 AM BUSINESS TRANSFORMATION CONSULTANT Weight 74.5 kg (164 lb 3.2 oz) 02/01/2018 7:00 AM BUSINESS TRANSFORMATION CONSULTANT Height 182.9 cm (6' 0.01") 02/01/2018 7:00 AM BUSINESS TRANSFORMATION CONSULTANT Body Mass Index 22.26 in this encounter Functional Status Date of Assessment Functional Status Response 01/25/2018 Does the patient have a hearing impairment: No as of this encounter Discharge Summaries * Blanca Light APRN-NP - 02/02/2018 12:35 PM BUSINESS TRANSFORMATION CONSULTANT Physician Discharge Summary Name: Nancy Trujillo Date Of : 1955 Age: 62 years Admit date: 01/21/2018 Discharge date: 02/02/2018 Attending Physician: Mohan Johnson Service: Cardiothor Surg Physician Summary completed by: AKHIL Marmolejo Reason for hospitalization: right hydropneumothorax Significant PMH: Past Medical History: Diagnosis Date AF (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) ([facility]) 08/15/2012 CAD (coronary artery disease) 08/15/2012 CHF (congestive heart failure) ([facility]) 08/15/2012 COPD (chronic obstructive pulmonary disease) ([facility]) 08/15/2012 HLD (hyperlipidemia) 08/15/2012 HTN (hypertension) 08/15/2012 LA thrombus 08/15/2012 care home current use of anticoagulant 08/15/2012 S/P ablation of 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 05/04/2013 05/04/13 A fib ablation by Dr. Godfrey. Allergies: Patient has no known allergies. Admission Physical Exam notable for: See admission notes Admission Lab/Radiology studies notable for: See admission notes Brief Hospital Course: Nancy Trujillo, a 62 y.o. was admitted 01/21/2018 to [facility] from the inpatient rehab facility for tachycardia, leukocytosis, fever and loculated pneumothorax and was placed into the ICU for chest tube placement and increased oxygen requirements. Infectious disease was consulted to evaluate current treatment for aspergillus pneumonia and the patient was put on a broadened treatment of antibiotics. A CT scan of the chest on 01/25/[address] Johnson with thoracic surgery and due to the patient's frail state, he determined a thoracoscopic approach with debridement and placement of long-term chest tubes was warranted. On 01/28/2018 the patient went for staged surgery for right lung decortication with Dr. Johnson on due to diagnosis of partially loculated right hydropneumothorax and extensive right lung consolidation. Two separate chest tubes were placed and the patient was sent to the ICU in stable condition. A non-contrast CT of the chest was completed on 01/31/2018 that showed a significant decrease in size of a now small, loculated right hydropneumothorax and marked emphysema. The chest tube continued to drain minimal amounts of serous drainage, so the tubes were Y'd together and put to a Mini [address] on 02/01/2018 with the plan to keep the tubes at discharge. Daily chest xray's showed slow improvements with diffuse right lung and patchy left lung opacities likely multifocal infection and stable right pleural effusion. The patient participated in PT/OT, respiratory treatment protocols, was advanced to a regular diet and had normal bowel and bladder function. The patient was discharged to inpatient rehab 02/02/2018 and will be followed up with in rehab by infectious disease and in the thoracic surgery clinic after discharged from rehab facility to address the chest tube duration. Condition at Discharge: Stable Discharge Diagnoses: Hospital Problems Active Problems CAD (coronary artery disease) Paroxysmal 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 (HCC) S/P ablation of 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 Pneumonia Cytomegalovirus (CMV) viremia (HCC) Loculated pleural effusion Acute on chronic respiratory failure with hypoxia and hypercapnia (HCC) Sepsis (HCC) Pulmonary aspergillosis invasive type (HCC) COPD, severe (HCC) Secondary spontaneous pneumothorax Legionella pneumonia (HCC) Shock (HCC) Atrial fibrillation with RVR (HCC) Empyema of right pleural space (HCC) Surgical Procedures: 01/28/2018 - Left thoracoscopic decortication of the lung. Significant Diagnostic Studies and Procedures: noted in brief hospital course Consults: Anesthesiology and ID Patient Disposition: Inpatient Rehabilitation Patient instructions/medications: DIGOXIN LEVEL Standing Status: Future Standing Exp. Date: 02/02/19 Other Activity Restrictions -You should and need to walk daily. Your goal is to walk 30 minutes at at time without stopping for breaks. This is a daily exercise routine that you should start as soon as you arrive home. Your basic daily activities do not count toward your 30 minute minimum, e.g. housework, toileting, fixing meals. Do not exercise outside in extremely hot or cold temperatures. -Bathing: No showering while chest tubes are in place. You may sponge bathe and work around the chest tube sites, do not soak the tubes. -Driving: NO driving for 2 weeks or while taking narcotics -Lifting: NO lifting more than 10 pounds (gallon of milk) for 6 weeks from the date of your surgery. Activity as Tolerated It is important to [...] to return to your normal activity level. You should resume your normal activity in 6 week(s). Bathing Restrictions NO tub baths, hot tubs, or swimming for 6 weeks. No showers while chest tubes in place. Report These Signs and Symptoms temperature higher than 100 degrees F, uncontrolled pain, difficulty breathing , chest pain or drainage with a foul odor, if your chest tube come detached or the drainage from tube becomes foul odor, bright red, or changes in consistency. Questions About Your Stay For questions or concerns regarding your hospital stay. Call [phone] Discharging attending physician: MOHAN JOHNSON [[id number]] Cardiac Diet Limiting unhealthy fats and cholesterol is the most important step you can take in reducing your risk for cardiovascular disease. Unhealthy fats include saturated and trans fats. Monitor your sodium and cholesterol intake. Restrict your sodium to 2g (grams) or 2000mg (milligrams) daily, and your cholesterol to 200mg daily. If you have questions regarding your diet at home, you may contact a dietitian at . PICC Line Residential Care Instructions: *Catheter must be covered with plastic wrap before showering. Never submerge the catheter in a bathtub, hot tub, or swimming pool. *The dressing and biopatch must be changed every 7 days or as needed if it becomes wet or soiled. The injection caps should be changed every 7 days. Please refer to your physician, clinic, or home health nurse for dressing or cap change instructions. Chest Tube Residential care instructions: FOR ELECTRON BEAM OPERATOR ONLY: *If you have a chest tube, do not change the tube, or change the drainage canister in any way. You should have a medical professional or trained person change your chest tube dressing daily with vaseline gauze, dry gauze and tape. *The tube must be attached to drainage system at all times. Empty drainage container as instructed by healthcare staff. *If you start to have trouble breathing, report to your local emergency department as this could be a serious medical problem. *If chest tube is pulled out, DO NOT PUSH BACK IN. Go to the nearest emergency room. You will follow up with Dr. Johnson regarding your chest tube and when it will be discontinued. Return Appointment Their office will contact you for follow up while you are in the rehab facility. Provider MOHAN JOHNSON [[id number]] Location [facility] [place] Clinic Return Appointment Infectious disease will be following up with you while you are in inpatient rehab regarding your antibiotic treatment. Provider RAH CAMPUZANO [[id number]] Current Discharge Medication List START taking these medications Details acetaminophen (TYLENOL) 500 mg tablet Take two tablets by mouth every 6 hours as needed. Max of 4,000 mg of acetaminophen in 24 hours. Refills: 0 PRESCRIPTION TYPE: OTC acetylcysteine (MUCOMYST) 200 mg/mL (20 %) solution Inhale 3 mL by mouth into the lungs every 12 hours. Qty: 30 mL, Refills: 12 PRESCRIPTION TYPE: Fax This prescription was faxed to the pharmacy Pharmacy: [address] (Ph #: [phone]) enoxaparin (LOVENOX) 40 mg injection syringe Inject 0.4 mL under the skin daily. Qty: 10 Syringe, Refills: 3 PRESCRIPTION TYPE: Fax This prescription was faxed to the pharmacy Pharmacy: [address] (Ph #: [phone]) guaiFENesin LA (MUCINEX) 600 mg tablet Take one tablet by mouth twice daily. Qty: 180 tablet, Refills: 0 PRESCRIPTION TYPE: Fax This prescription was faxed to the pharmacy Pharmacy: [address] (Ph #: [phone]) ondansetron (ZOFRAN) 4 mg tablet Take one tablet by mouth three times daily with meals. Qty: 60 tablet, Refills: 0 PRESCRIPTION TYPE: Fax This prescription was faxed to the pharmacy Pharmacy: [address] (Ph #: [phone]) oxyCODONE (ROXICODONE, OXY-IR) 5 mg tablet Take one tablet to two tablets by mouth every 3 hours as needed Earliest Fill Date: 02/02/18 Qty: 60 tablet, Refills: 0 PRESCRIPTION TYPE: Print piperacillin/tazobactam (ZOSYN) 3.375 g/15 mL 3.375 g in sodium chloride 0.9% ( NS) 0.9 % 100 mL IVPB (MB+) Administer 3.375 g through vein every 6 hours. Qty: 7 ampule, Refills: 1 PRESCRIPTION TYPE: Fax This prescription was faxed to the pharmacy Pharmacy: [address] (Ph #: [phone]) senna (SENOKOT) 8.6 mg tablet Take two tablets by mouth twice daily. Qty: 90 tablet, Refills: 3 PRESCRIPTION TYPE: Fax This prescription was faxed to the pharmacy Pharmacy: [facility] (Ph #: [phone]) umeclidinium-vilanterol (ANORO ELLIPTA) 62.5-25 mcg/actuation inhaler Inhale one puff by mouth into the lungs daily. Qty: 60 each, Refills: 11 PRESCRIPTION TYPE: Fax This prescription was faxed to the pharmacy Pharmacy: [address] (Ph #: [phone]) CONTINUE these medications which have been CHANGED or REFILLED Details digoxin (LANOXIN) 125 mcg tablet Take one tablet by mouth daily. Qty: 90 tablet, Refills: 3 PRESCRIPTION TYPE: Fax This prescription was faxed to the pharmacy Pharmacy: [address] (Ph #: [phone]) CONTINUE these medications which have NOT CHANGED Details albuterol (PROAIR HFA, VENTOLIN HFA, OR PROVENTIL HFA) 90 mcg/actuation inhaler Inhale two puffs by mouth into the lungs four times daily as needed for Wheezing or Shortness of Breath. Shake well before use. PRESCRIPTION TYPE: No Print ascorbic acid (VITAMIN C) 500 mg tablet one tablet by Per NG tube route daily. Qty: 90 tablet, Refills: 3 PRESCRIPTION TYPE: No Print cholecalciferol (VITAMIN D-3) 400 unit tab tablet Take one tablet by mouth daily. PRESCRIPTION TYPE: No Print dextran 70/hypromellose (GENTEAL TEARS; BION TEARS) 0.1/0.3 % dpet ophthalmic solution Apply one drop to both eyes every 6 hours as needed for Dry Eyes. PRESCRIPTION TYPE: No Print fluticasone (FLONASE) 50 mcg/actuation nasal spray Apply two sprays to each nostril as directed daily. Shake bottle gently before using. Qty: 48 g, Refills: 3 PRESCRIPTION TYPE: Normal furosemide (LASIX) 20 mg tablet Take three tablets by mouth twice daily. Qty: 90 tablet, Refills: 3 PRESCRIPTION TYPE: No Print isavuconazonium sulfate (CRESEMBA) 186 mg capsule Take two capsules by mouth daily. For at least 3 months PRESCRIPTION TYPE: No Print lidocaine (LIDODERM) 5 % topical patch Apply one patch to two patches topically to affected area every 24 hours. Apply patch for 12 hours, then remove for 12 hours before repeating. Qty: 30 patch PRESCRIPTION TYPE: No Print magnesium oxide (MAG-OX) 400 mg (241.3 mg magnesium) tablet Take one tablet by mouth twice daily. Qty: 180 tablet, Refills: 3 PRESCRIPTION TYPE: Normal melatonin 5 mg tab one tablet by Per NG tube route at bedtime as needed. PRESCRIPTION TYPE: No Print metoprolol tartrate (LOPRESSOR) 25 mg tablet Take one-half tablet by mouth twice daily. Qty: 180 tablet, Refills: 3 PRESCRIPTION TYPE: Normal pantoprazole DR (PROTONIX) 40 mg tablet Take one tablet by mouth daily. Qty: 90 tablet, Refills: 3 PRESCRIPTION TYPE: No Print phenol (CLORASEPTIC; PHENASEPTIC) 1.4 % spra Take two sprays by mouth or throat as directed as Needed. Refills: 0 PRESCRIPTION TYPE: No Print thiamine mononitrate 100 mg tablet one tablet by Per NG tube route daily. PRESCRIPTION TYPE: No Print vitamin A & D oint Apply topically to affected area daily. Apply A&D ointment to wounds and cover with a Biatain foam. Dressing changes daily and PRN for soiling. PRESCRIPTION TYPE: No Print vitamins, multi w/minerals 9 mg iron-400 mcg tab Take one tablet by mouth daily. PRESCRIPTION TYPE: No Print The following medications were removed from your list. This list includes medications discontinued this stay and those removed from your prior med list in our system acetaminophen (TYLENOL) 160 mg/5 mL oral solution budesonide/formoterol (SYMBICORT) 160/4.5 mcg HFAA inhalation cefepime (MAXIPIME) 1 g/10 mL 1 g in dextrose 5% (D5W) 5 % 100 mL IVPB (MB+) guaiFENesin (ROBITUSSIN) 100 mg/5 mL oral solution HYDROcodone/acetaminophen (NORCO) 5/325 mg tablet micafungin (MYCAMINE) 100 mg/5 mL 100 mg, micafungin (MYCAMINE) 50 mg/5 mL 50 mg in sodium chloride 0.9% (NS) 0.9 % 110 mL IVPB rivaroxaban (XARELTO) 20 mg tab tablet tiotropium (SPIRIVA) 18 mcg capsule for inhaler valGANciclovir (VALCYTE) 450 mg tablet vitamins, multi w/iron (CERTAVITE) oral solution Scheduled appointments: Mar 10, 2018 9:00 AM BUSINESS TRANSFORMATION CONSULTANT Return Patient with Melinda Escobar MD [facility] ([facility]) [facility] Level [address] [facility] [phone] Pending items needing follow up: Chest tubes Signed: AKHIL Marmolejo-C 02/02/2018 cc: Primary Care Physician: Flavio Jackson Verified Referring physicians: Shirin Walalce MD Additional provider(s): 12: 35 PM BUSINESS TRANSFORMATION CONSULTANT in this encounter Medications at Time of [...] iron-400 tablet by mcg tab mouth daily. 02/02/2018 02/21/2018 acetaminophen (TYLENOL) Take two 0 500 mg tablet tablets by mouth every 6 hours as needed. Max of 4,000 mg of acetaminophen in 24 hours. 02/02/2018 02/21/2018 acetylcysteine (MUCOMYST) Inhale 3 mL 30 mL 12 200 mg/mL (20 %) solution by mouth into the lungs every 12 hours. 01/21/2018 02/21/2018 albuterol (PROAIR HFA, Inhale two 0 VENTOLIN HFA, OR puffs by PROVENTIL HFA) 90 mouth into mcg/actuation inhaler the lungs four times daily as needed for Wheezing or Shortness of Breath. Shake well before use. 01/01/2018 02/21/2018 ascorbic acid (VITAMIN C) one tablet by 90 tablet 3 500 mg tablet Per NG tube route daily. 01/01/2018 02/21/2018 cholecalciferol (VITAMIN Take one 0 D-3) 400 unit tab tablet tablet by mouth daily. 01/21/2018 02/21/2018 dextran 70/hypromellose Apply one 0 (GENTEAL TEARS; BION drop to both TEARS) 0.1/0.3 % dpet eyes every 6 ophthalmic solution hours as needed for Dry Eyes. 02/02/2018 02/21/2018 digoxin (LANOXIN) 125 mcg Take one 90 tablet 3 tablet tablet by mouth daily. 02/03/2018 02/21/2018 enoxaparin (LOVENOX) 40 Inject 0.4 mL 10 Syringe 3 mg injection syringe under the skin daily. 01/22/2018 02/21/2018 fluticasone (FLONASE) 50 Apply two 48 g 3 mcg/actuation nasal spray sprays to each nostril as directed daily. Shake bottle gently before using. 12/31/2017 02/21/2018 furosemide (LASIX) 20 mg Take three 90 tablet 3 tablet tablets by mouth twice daily. 02/02/2018 02/21/2018 guaiFENesin LA (MUCINEX) Take one 180 tablet 0 600 mg tablet tablet by mouth twice daily. 02/21/2018 03/04/2018 isavuconazonium sulfate Take two 14 capsule 0 (CRESEMBA) 186 mg capsule capsules by mouth daily until gone. 12/31/2017 02/21/2018 isavuconazonium sulfate Take two 0 (CRESEMBA) 186 mg capsule capsules by mouth daily. For at least 3 months 01/01/2018 02/21/2018 lidocaine (LIDODERM) 5 % Apply one 30 patch 0 topical patch patch to two patches topically to affected area every 24 hours. Apply patch for 12 hours, then remove for 12 hours before repeating. 01/21/2018 02/21/2018 magnesium oxide (MAG-OX) Take one 180 tablet 3 400 mg (241.3 mg tablet by magnesium) tablet mouth twice daily. 12/31/2017 02/21/2018 melatonin 5 mg tab one tablet by 0 Per NG tube route at bedtime as needed. 01/21/2018 02/21/2018 metoprolol tartrate Take one-half 180 tablet 3 (LOPRESSOR) 25 mg tablet tablet by mouth twice daily. 02/02/2018 02/21/2018 ondansetron (ZOFRAN) 4 mg Take one 60 tablet 0 tablet tablet by mouth three times daily with meals. 02/02/2018 02/21/2018 oxyCODONE (ROXICODONE, Take one 60 tablet 0 OXY-IR) 5 mg tablet tablet to two tablets by mouth every 3 hours as needed Earliest Fill Date: 02/02/18 01/21/2018 02/21/[address] Take one 90 tablet 3 (PROTONIX) 40 mg tablet tablet by mouth daily. 12/31/2017 02/21/2018 phenol (CLORASEPTIC; Take two 0 PHENASEPTIC) 1.4 % spra sprays by mouth or throat as directed as Needed. 02/02/2018 02/21/2018 piperacillin/tazobactam Administer 7 ampule 1 (ZOSYN) 3.375 g/15 mL 3.375 g 3.375 g in sodium through vein chloride 0.9% (NS) 0.9 % every 6 100 mL IVPB (MB+) hours. 02/21/2018 02/21/2018 potassium chloride SR Take one 30 tablet 2 (K-DUR) 20 mEq tablet tablet by mouth daily. Take with a meal and a full glass of water. 02/02/2018 02/21/2018 senna (SENOKOT) 8.6 mg Take two 90 tablet 3 tablet tablets by mouth twice daily. 01/01/2018 02/21/2018 thiamine mononitrate 100 one tablet by 0 mg tablet Per NG tube route daily. 02/02/2018 02/21/2018 umeclidinium-vilanterol Inhale one 60 each 11 (ANORO ELLIPTA) 62.5-25 puff by mouth mcg/actuation inhaler into the lungs daily. 01/01/2018 02/21/2018 vitamin A & D oint Apply 0 topically to affected area daily. Apply A&D ointment to wounds and cover with a Biatain foam. Dressing changes daily and PRN for soiling. 01/22/2018 02/21/2018 vitamins, multi Take one 0 w/minerals 9 mg iron-400 tablet by mcg tab mouth daily. as of this encounter Progress Notes * Yanira Gutierrez RN - 02/02/2018 4:15 PM BUSINESS TRANSFORMATION CONSULTANT Assumed pt care at 0700. VSS per trend, A&Ox4, tolerating 2L NC, SR c PVCs, PACs on tele. Pain well controlled with current regimen. Denies n/v, SOA. CT to water seal with mini atrium, with serous output. UOP adequate. No BM during shift. High fall risk bundle in place, call light within reach, will cont to monitor. 1630-Pt transported off unit via EMS to [facility]. Report given to RN. NESS TRANSFORMATION CONSULTANT * Mallory Pimentel RN - 02/02/2018 3:49 PM BUSINESS TRANSFORMATION CONSULTANT 1545 - AVS printed out and given to pt - pt does not want to review at this time - pt going to [facility]. PICC line left in place. Tele dc'd. Interfacility transfer packet not needed at this time - Ticket to Ride printed and outside of room. Pt scheduled to be transported to facility at 1645. Pt's RNYanira, updated. NESS TRANSFORMATION CONSULTANT * Nela Shields - 02/02/2018 3:06 PM BUSINESS TRANSFORMATION CONSULTANT OCCUPATIONAL THERAPY PROGRESS NOTE Patient Name: Nancy Trujillo Room/Bed: [place] [address] Admitting Diagnosis: PNEUMONIA Mobility Progressive Mobility Level: Walk in room Distance Walked (feet): 25 ft Level of Assistance: Assist X1 Assistive Device: Walker Time Tolerated: 11-30 minutes Activity Limited By: Fatigue;Weakness Subjective Pertinent Dx per Physician: Nancy Trujillo is a 62 y.o. Male with history of COPD, HTN, HLD, CAF, CHF and afib who presented from rehab with leukocytosis with CT scan showing worsening empyema now s/p chest tube placement now s/p decortication of pleural effusion on 01/28. Precautions: Falls;O2 Requirement(2-3L O2 NC) Pain / Complaints: Patient agrees to participate in therapy Pain Location: (chest tube site) Objective Psychosocial Status: Willing and Cooperative to Participate Home Living Type of Home: House Home Layout: One Level(Unfinished basement with makeshift shower) Bathroom Shower / Tub: Tub Only(Pt reports he currently has a tub only, but family may remodel to add a walk in shower) Bathroom Toilet: Standard Bathroom Accessibility: Accessible via Walker(and believes via wheelchair but "may be close") Comment: Denies fall history. Although as interview proceeded, patient admits to L leg intermittently giving way at baseline, resulting in "falling into" people and needing help to recover balance. (Information per EMR. Prior Function Level Of [facility]: Independent with homemaking w/ ambulation;Independent with ADLs and functional transfers Lives With: Significant Other Receives Help From: None Needed Vocational: On Disability Other Function Comments: Rachel will be available to assist patient at discharge with intermittent bouts of being home alone. Goals: "getting up and walking" and "being able to go to the bathroom at home." (Information per EMR. ADL's Where Assessed: Edge of Bed;Chair LE Dressing [...] to Adequately Complete Self Care Tasks Safely Assessment Assessment: Decreased ADL Status;Decreased UE Strength;Decreased Endurance; Decreased Self-Care Trans;Decreased High-Level ADLs Prognosis: Good;w/Cont OT s/p Acute Discharge Goal Formulation: Patient Plan OT Frequency: 5x/week OT Plan for Next Visit: Lower body dressing; Grooming at sink for increased standing tolerance with self-initiated rest breaks Functional Transfer Goals Pt Will Perform All Functional Transfers: w/ Stand By Assist OT Discharge Recommendations OT Discharge Recommendations: Inpatient Rehab Equipment Recommendations: Too early to be determined Recommend ongoing assistance for: Transfers, Bed mobility, Ambulation, Stairs Therapist: LUIS CARLOS [place] [id number] Date: 02/02/2018 NESS TRANSFORMATION CONSULTANT * Marva Lu - 02/02/2018 2:58 PM BUSINESS TRANSFORMATION CONSULTANT CLINICAL NUTRITION Clinical Nutrition Assessment Summary NAME:Nancy Trujillo :1955 AGE: 62 y.o. ADMISSION DATE: 01/21/2018 DAYS ADMITTED: LOS: 12 days Nutrition Assessment of Patient: BMI Categories Adult: Acceptable: 18.5-24.9 Malnutrition Assessment: Does not meet criteria Current Oral Intake: Inadequate Oral Diet Order: Regular Comments: Nancy Trujillo is a 62 y.o. Male with history of COPD, HTN, HLD, CAF, CHF and afib who presented from rehab with leukocytosis with CT scan showing worsening empyema now s/p chest tube placement now s/p decortication of pleural effusion on 01/28. Patient reports continued nausea over past 3-4 days. Possibly medication related, zosyn onboard. Eating 20-25% meals. Reports he is tolerating Boost supplements and other liquids better than solids. Notes he will order foods that sound appetizing but will get nauseated after tasting one bite. Encouraged boost TID and ordering of all meals. Soft stools, last 02/01. Potential d/c to rehab soon. Recommendation: Regular diet + Boost Plus TID Encourage adequate PO intake efforts. Intervention / Plan: Boost supplements TID Monitor weight trends, labs, meds, GI function Monitor PO intake tolerance, adequacy Nutrition Diagnosis: Inadequate oral intake Etiology: nausea, poor appetite Signs & Symptoms: patient report Goals: Patient to consume >50% of meals/supplements Time Frame: Within [address], LD Pager: [phone] NESS TRANSFORMATION CONSULTANT * Rah Campzuano MD - 02/02/2018 12:57 PM BUSINESS TRANSFORMATION CONSULTANT Infectious Diseases Progress note Today's Date: 02/02/2018 Admission Date: 01/21/2018 Reason for this consultation: I was asked to provide my opinion and recommendations regarding this 62-year-old man with worsening vascular status extensive emphysema and new pneumothorax on the right side I reviewed the patient record there were extensive and summarized them, I personally viewed the CT scan of the chest from 01/21/2018 showed extensive infiltrate in the right lung and loculated pneumothorax possible necrosis of the lung. 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 Not detected on first BAL, virus detected on 12/21/17 BAL. Treated. Significant debility P. mirabilis pneumonia 01/16/18 DEONTE 01/26 Recommendations: 1. Continue Zosyn. He has been on proteus treatment since 01/16/18. No growth from recent surgical cultures. Continue for a short period of time more. 2. Continue cresemba 3. Monitor labs for toxicity 4. Will follow. Mr. Trujillo has complex disease requiring complex medical decision making for pneumonia, aspergillosis, therapeutic drug monitoring, resp failure. I reviewed the chart and interviewed and examined the patient and formulated the plan as above. Discussed with Dr. Altamirano. History of Present Illness Nancy Trujillo is a 62 y.o. Man Afebrile. Hypertensive. On 2L NC. WBC, Cr increased slightly. Up in chair. Still cough. No f/c/ns, abd pain, FERGUSON, neck pain. Still with significant nausea. Ambulates in room. Abx Zosyn 01/22/18 cresemba Extensive history vanc 01/22 to 05/01 micafungin stopped 01/23 valcyte stopped 01/26 Estimated Creatinine Clearance: 57.6 mL/min (A) (based on SCr of 1.4 mg/dL (H)). Medications Scheduled Meds: acetylcysteine (MUCOMYST) 200 mg/mL (20 %) nebulizer solution 3 mL 3 mL Inhalation Q12H albuterol 0.5% (PROVENTIL; VENTOLIN) nebulizer solution 2.5 mg 2.5 mg Inhalation BID & PRN ascorbic acid (VITAMIN C) tablet 500 mg 500 mg Oral QDAY cholecalciferol (VITAMIN D-3) tablet 400 Units 400 Units Oral QDAY docusate (COLACE) capsule 200 mg 200 mg Oral BID enoxaparin (LOVENOX) syringe 40 [...] (SENOKOT) tablet 2 tablet 2 tablet Oral BID sodium chloride PF 0.9% flush 30 mL 30 mL Intravenous FLUSH TID thiamine mononitrate tablet 100 mg 100 mg Oral QDAY umeclidinium-vilanterol (ANORO ELLIPTA) 62.5-25 mcg/actuation inhaler 1 puff 1 puff Inhalation QDAY vitamin A & D topical ointment Topical QDAY vitamins, multi w/minerals tablet 1 tablet 1 tablet Oral QDAY Continuous Infusions: PRN and Respiratory Meds:acetaminophen Q6H PRN, alteplase BID PRN, magnesium sulfate PRN AND [] Magnesium PRN AND Notify Physician Ongoing, naloxone PRN, oxyCODONE Q3H PRN, potassium chloride SR PRN OR potassium chloride PRN Physical Examination Vital Signs: Last Vital Signs: 24 Hour Range BP: 122/74 (02/02 1130) Temp: 36.4 C (97.5 F) (02/02 113) Pulse: 94 (02/020) Respirations: 18 PER MINUTE (02/02 1130) SpO2: 97 % (02/020) O2 Delivery: Nasal Cannula (02/02 1130) BP: (110-147)/(71-82) Temp: [36.3 C (97.3 F)-36.9 C (98.4 F)] Pulse: [79-101] Respirations: [16 PER MINUTE-18 PER MINUTE] SpO2: [92 %-97 %] O2 Delivery: Nasal Cannula General: Alert, cooperative, in mild distress Head: Normocephalic, without obvious abnormality, atraumatic Throat: Lips, mucosa and tongue normal. no thrush Lungs: improved BS on R, extensive ronchi, chest tube with cloudy fluid, decrease output Heart: Regular rate and rhythm Abdomen: Soft, slightly tender in the right upper quadrant Extremities: Extremities normal, atraumatic, no rash, no erythema, there is a minimal superficial ulcer on the medial left thigh, not infected some bruises Skin: Skin color, texture, turgor normal. Neurologic: Diffuse weakness Lab Review Hematology Recent Labs 01/31/18 0330 02/01/18 0518 02/02/18 0439 WBC 9.7 10.1 11.1* HGB 8.2* 8.3* 7.7* HCT 25.1* 24.5* 23.2* PLTCT 308 255 218 Chemistry Recent Labs 01/31/18 0330 02/01/18 0518 02/02/18 0439 NA 135* 138 140 K 3.8 3.9 3.9 CL 104 106 108 CO2 27 29 28 BUN 13 9 7 CR 1.36* 1.30* 1.40* GFR 53* 56* 51* GLU 111* 116* 103* CA 8.0* 8.2* 8.2* PO4 4.2 4.1 3.9 ALBUMIN -- 1.9* -- ALKPHOS -- 89 -- AST -- 14 -- ALT -- 8 -- TOTBILI -- 0.3 -- Microbiology, Radiology and other Diagnostics Review Microbiology data reviewed. Pertinent radiology images viewed. Impression: 02/02/18 CXR: IMPRESSION 1. Similar diffuse right lung and patchy left lung opacities likely multifocal infection. 2. Stable right pleural effusion without definite pneumothorax. Previously visualized air-fluid levels not well seen. Rah Campuzano MD Pager [phone] Infectious Diseases Faculty NESS TRANSFORMATION CONSULTANT * Osei Mccord, PT - 02/02/2018 9:38 AM BUSINESS TRANSFORMATION CONSULTANT PHYSICAL THERAPY PROGRESS NOTE MOBILITY: Mobility Progressive Mobility Level: Walk in room Distance Walked (feet): 65 ft Level of Assistance: Assist X1 Assistive Device: Walker Time Tolerated: 11-30 minutes Activity Limited By: Fatigue;Weakness SUBJECTIVE: Subjective Significant hospital events: Nancy Trujillo is a 62 y.o. Male with history of COPD, HTN, HLD, CAF, CHF and afib who presented from rehab with leukocytosis with CT scan showing worsening empyema now s/p chest tube placement now s/p decortication of pleural effusion on 01/28. Mental / Cognitive Status: Alert;Cooperative;Follows Commands Pain: Patient has no complaint of pain Comments: CTX1, 2LO2NC Comments: Pt reports his told him his walker was located. BED MOBILITY/TRANSFERS: Bed Mobility/Transfers Bed Mobility: Supine to Sit: [...] Chair;Instructed Patient to Request Assist with Mobility GAIT: Gait Gait Distance: 25 feet(+40) Gait: Assistance Level: Minimal Assist;Management of Lines;Safety Considerations Gait: Assistive Device: Roller Walker Gait: Descriptors: Pace: Slow;Decreased step length Activity Limited By: Complaint of Fatigue;Weakness EDUCATION: Education Persons Educated: Patient Patient Barriers To Learning: None Noted Teaching Methods: Verbal Instruction Patient Response: Verbalized Understanding Topics: Plan/Goals of PT Interventions ASSESSMENT/PROGRESS: Assessment/Progress Impaired Mobility Due To: Decreased Strength;Decreased Activity Tolerance; Deconditioning Assessment/Progress: Should Improve w/ Continued PT AM-PAC 6 Clicks Basic Mobility Inpatient Turning from your back to your side while in a flat bed without using bed rails : None Moving from lying on your back to sitting on the side of a flatbed without using bedrails : A Little Moving to and from a bed to a chair (including a wheelchair): A Little Standing up from a chair using your arms (e.g. wheelchair, or bedside chair): A Little To walk in hospital room: A Little Climbing 3-5 steps with a railing: A Lot Raw Score: 18 Standardized (T-scale) Score: 41.05 Basic Mobility CMS 0-100%: 40.47 CMS G Code Modifier for Basic Mobility: CK GOALS: Goals Goal Formulation: With Patient Time For Goal Achievement: 7 days Pt Will Go Supine To/From Sit: w/ Stand By Assist Pt Will Transfer Bed/Chair: w/ Stand By Assist Pt Will Transfer Sit to Stand: w/ Stand By Assist Pt Will Ambulate: 31-50 Feet, w/ Walker, w/ Stand By Assist Pt Will Go Up / Down Stairs: (will establish at later date as appropriate) PLAN: Plan Treatment Interventions: Mobility Training;Strengthening;Balance Activities; Endurance Training Plan Frequency: 5-7 Days per Week PT Plan for Next Visit: increase ambulation, transfers at various heights, standing endurance RECOMMENDATIONS: PT Discharge Recommendations PT Discharge Recommendations: Inpatient Setting;Recommend Physical Medicine and Rehabilitation Consult to address most appropriate level of rehabilitation placement Therapist: Osei Mccord, PT Date: 02/02/2018 NESS TRANSFORMATION CONSULTANT * Blanca Light, FIELD RADIO TECHNICIAN-TOOTH CUTTER SPUR - 02/02/2018 7:59 AM BUSINESS TRANSFORMATION CONSULTANT CARDIOTHORACIC SURGERY DAILY PROGRESS NOTE PROCEDURE: 10/29/2017- left thoracoscopic decortication of the right lung POD #: 5 LOS: 11 SUBJECTIVE: Overnight events: None. ASSESSMENT: Nancy Trujillo is a 62 y.o. Male with history of COPD, HTN, HLD, CAF, CHF and afib who presented from rehab with leukocytosis with CT scan showing worsening empyema now s/p chest tube placement now s/p decortication of pleural effusion on 01/28. Active Problems: CAD (coronary artery disease) Paroxysmal 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 (HCC) S/P ablation of 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 Pneumonia Cytomegalovirus (CMV) viremia (HCC) Loculated pleural effusion Acute on chronic respiratory failure with hypoxia and hypercapnia (HCC) Sepsis (HCC) Pulmonary aspergillosis invasive type (HCC) COPD, severe (HCC) Secondary spontaneous pneumothorax Legionella pneumonia (HCC) Shock (HCC) Atrial fibrillation with RVR (HCC) Empyema of right pleural space (HCC) PLAN: Neuro: A/Ox4. Pain controlled with PO pain medication oxycodone and tylenol. 1. CV - Sinus Rhythm/Sinus Tach 80-100. SBP 120-140's, stable. Hx of CAD, PAF - on BB metoprolol. Pt was on Xarelto, being held while chest tubes in place, on Lovenox 40mg and remains in NSR. 2. Resp - CXR reviewed, persistent right loculated hydropneumothorax and thoracostomy tubes x2 visualized, today radiology official read pending. Cont IS , wean O2, aggressive pulm toilet. y'd chest tubes to mini 500 [facility] chest tube 70ml serous drainage. 3. Renal - 1.40 creatinine. UOP 2.85L/24hours, adequate. 4. GI - + BM 01/31, cont bowel regimen especially while on opioids. PRN zofran for nausea. Boost TID with meals to supplement. 5. ID - WBC 10.1-->11.1, ID following. Afebrile. On zosyn through PICC and PO isavuconazonium sulfate managed by ID, recommends to continue no end date documented. 6. Endo - serum glucose 103 stable, no hx of DM or thyroid disease. 7. Activity - Ambulate TID and up to chair for meals. Pt participating in PT. Encourage to continue ambulating. 8. Disposition - D/c patient to [facility] when accepted. Continue two chest tubes connected to mini 500 [facility] at discharge with follow up to see Dr. Johnson in clinic outpatient. Patient seen and discussed with Dr. Johnson. OBJECTIVE: Vitals: 02/01/18 2044 02/02/18 0000 02/02/18 0400 02/02/18 0543 BP: 139/74 147/82 128/74 Pulse: 101 100 79 Temp: 36.3 C (97.4 F) 36.9 C (98.4 F) 36.7 C (98.1 F) SpO2: 95% 94% 92% 93% Weight: Height: Physical Exam: General: A&O x 3 Cardiovascular: RRR no rub or murmur Respiratory: bilateral lung sounds diminished, O2 RA-2L per nasal canula, CT's to -20 suction and +air leak on #2. GI: soft, NT, +BS Extremities: No Edema. Incisions: right chest tube dressings clean/dry/intact. Prophylaxis Review: Lines: No Antibiotic Usage: Yes; Infection present or suspected: Lung; Other lung infection VTE: Pharmacological prophylaxis; Enoxaparin and Mechanical prophylaxis; Sequential compression device Urinary Catheter: No Chest Tubes OUTPUT/24 HOURSAIR LEAK PRESENT Mini [id number] no LABS: Lab Results Component Value Date/Time WBC 11.1 (H) 02/02/2018 04:39 AM HGB 7.7 (L) 02/02/2018 04:39 AM HCT 23.2 (L) 02/02/2018 04:39 AM PLTCT 218 02/02/2018 04:39 AM Lab Results Component Value Date/Time NA 140 02/02/2018 04:39 AM K 3.9 02/02/2018 04:39 AM CL 108 02/02/2018 04:39 AM CO2 28 02/02/2018 04:39 AM BUN 7 02/02/2018 04:39 AM CR 1.40 (H) 02/02/2018 04:39 AM GLU 103 (H) 02/02/2018 04:39 AM Lab Results Component Value Date MG 1.7 02/02/2018 Lab Results Component Value Date PO4 3.9 02/02/2018 Lab Results Component Value Date GLUPOC 141 (H) 12/17/2017 GLUPOC 76 12/16/2017 GLUPOC 116 (H) 11/23/2017 GLUPOC 109 (H) 11/22/2017 GLUPOC 134 (H) 11/22/2017 GLUPOC 112 (H) 11/22/2017 GLUPOC 134 (H) 11/22/2017 GLUPOC 137 (H) 11/21/2017 Blanca Light APRN-NPC [id number] 7: 59 AM BUSINESS TRANSFORMATION CONSULTANT * Bertha Mcclure RN - 02/02/2018 4:57 AM BUSINESS TRANSFORMATION CONSULTANT VSS, SR/ST on tele. C/o pain at CT, oxycodone given for pain control. CT to mini atrium, small amt of serous drainage present. Adequate UOP. Will continue to monitor. NESS TRANSFORMATION CONSULTANT * Armando Guaman RN - 02/01/2018 5:23 PM BUSINESS TRANSFORMATION CONSULTANT Assessments complete and documented per flowsheet, no acute changes noted. A/Ox4. VSS. Tolerating 2L. SR/ST on tele. Moderate pain adequately managed with PRN oxycodone, VISUAL EFFECTS ARTIST d/c'd. Surgical incisions C/D/I. Chest tubes y'd together into mini 500 [facility]. 20 mL output since. Ambulating with PT/OT and to bathroom/chair. UOA, BM 02/01 Call light within reach, will continue to monitor until transferring care to shift superintendent caustic cresylate RN. NESS TRANSFORMATION CONSULTANT * Nela Shields - 02/01/2018 2:32 PM BUSINESS TRANSFORMATION CONSULTANT OCCUPATIONAL THERAPY PROGRESS NOTE Patient Name: Nancy Trujillo Room/Bed: 408/ Admitting Diagnosis: PNEUMONIA Mobility Progressive Mobility Level: Walk in room Distance Walked (feet): 30 ft Level of Assistance: Assist X1 Assistive Device: Walker Time Tolerated: 11-30 minutes Activity Limited By: Shortness of air;Fatigue Subjective Pertinent Dx per Physician: Nancy Trujillo is a 62 y.o. Male with history of COPD, HTN, HLD, CAF, CHF and afib who presented from rehab with leukocytosis with CT scan showing worsening empyema now s/p chest tube placement now s/p decortication of pleural effusion on 01/28. Precautions: Falls;O2 Requirement(2-3L O2 NC) Pain / Complaints: Patient agrees to participate in therapy Pain Location: (chest tube site) Comments: Pt in recliner upon therapist arrival and positioned for comfort in bed with needs met and precautions in place upon OT exit. Objective Psychosocial Status: Willing and Cooperative to Participate Home Living Type of Home: House Home Layout: One Level(Unfinished basement with makeshift shower) Bathroom Shower / Tub: Tub Only(Pt reports he currently has a tub only, but family may remodel to add a walk in shower) Bathroom Toilet: Standard Bathroom Accessibility: Accessible via Walker(and believes via wheelchair but "may be close") Comment: Denies fall history. Although as interview proceeded, patient admits to L leg intermittently giving way at baseline, resulting in "falling into" people and needing help to recover balance. (Information per EMR. Prior Function Level Of [facility]: Independent with homemaking w/ ambulation;Independent with ADLs and functional transfers Lives With: Significant Other Receives Help From: None Needed Vocational: On Disability Other Function Comments: Rachel will be available to assist patient at discharge with intermittent bouts of being home alone. Goals: "getting up and walking" and "being able to go to the bathroom at home." (Information per EMR. ADL's Where Assessed: In Bathroom Eating Assist: [...] to Adequately Complete Self Care Tasks Safely Assessment Assessment: Decreased ADL Status;Decreased UE Strength;Decreased Endurance; Decreased Self-Care Trans;Decreased High-Level ADLs Prognosis: Good;w/Cont OT s/p Acute Discharge Goal Formulation: Patient AM-PAC 6 Clicks Daily Activity Inpatient Putting on and taking off regular lower body clothes?: A Little Bathing (Including washing, rinsing, drying): A Lot Toileting, which includes using toilet, bedpan, or urinal: A Lot Putting on and taking off regular upper body clothing: A Little Taking care of personal grooming such as brushing teeth: None Eating meals?: None Daily Activity Raw Score: 18 Standardized (t-scale) score: 38.66 CMS 0-100% Score: 46.65 CMS G Code Modifier: CK Plan OT Frequency: 5x/week OT Plan for Next Visit: Lower body dressing; Grooming at sink for increased standing tolerance with self-initiated rest breaks Functional Transfer Goals Pt Will Perform All Functional Transfers: w/ Stand By Assist OT Discharge Recommendations OT Discharge Recommendations: Inpatient Setting(IPR) Equipment Recommendations: Too early to be determined Recommend ongoing assistance for: Transfers, Bed mobility, Ambulation, Stairs Therapist: GULSHAN Guadarrama/oJyce [id number] Date: 02/01/2018 NESS TRANSFORMATION CONSULTANT * Blanca Light APRN-NP - 02/01/2018 11:07 AM BUSINESS TRANSFORMATION CONSULTANT Patient's chest tubes Y'd together and placed to Mini 500 [facility]. Pt tolerated it well. He will go to rehab with the atrium. Currently sitting in chair. 11: 07 AM BUSINESS TRANSFORMATION CONSULTANT * Rah Campuzano MD - 02/01/2018 10:36 AM BUSINESS TRANSFORMATION CONSULTANT Infectious Diseases Progress note Today's Date: 02/01/2018 Admission Date: 01/21/2018 Reason for this consultation: I was asked to provide my opinion and recommendations regarding this 62-year-old man with worsening vascular status extensive emphysema and new pneumothorax on the right side I reviewed the patient record there were extensive and summarized them, I personally viewed the CT scan of the chest from 01/21/2018 showed extensive infiltrate in the right lung and loculated pneumothorax possible necrosis of the lung. 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 Not detected on first BAL, virus detected on 12/21/17 BAL. Treated. Significant debility P. mirabilis pneumonia 01/16/18 DEONTE 01/26 Recommendations: 1. Continue Zosyn. He has been on proteus treatment since 01/16/18. No growth from recent surgical cultures. Continue for a short period of time more. 2. Continue cresemba 3. Monitor labs for toxicity 4. Will follow. Mr. Trujillo has complex disease requiring complex medical decision making for pneumonia, aspergillosis, therapeutic drug monitoring, resp failure. I reviewed the chart and interviewed and examined the patient and formulated the plan as above. Discussed with Dr. Altamirano. History of Present Illness Nancy Trujillo is a 62 y.o. Man Afebrile. Hypertensive. On 2L NC. WBC remains normalized. Cr improving. Up in chair. 1 chest tube removed. Still cough. No f/c/ns, abd pain, FERGUSON, neck pain. Still with significant nausea. Abx Zosyn 01/22/18 cresemba Extensive history vanc 01/22 to 05/01 micafungin stopped 01/23 valcyte stopped 01/26 Estimated Creatinine Clearance: 62.1 mL/min (A) (based on SCr of 1.3 mg/dL (H)). Medications Scheduled Meds: acetylcysteine (MUCOMYST) 200 mg/mL (20 %) nebulizer solution 3 mL 3 mL Inhalation Q12H albuterol 0.5% (PROVENTIL; VENTOLIN) nebulizer solution 2.5 mg 2.5 mg Inhalation BID & PRN ascorbic acid (VITAMIN C) tablet 500 mg 500 mg Oral QDAY cholecalciferol (VITAMIN D-3) tablet 400 Units 400 Units Oral QDAY docusate (COLACE) capsule 200 mg 200 mg Oral BID enoxaparin (LOVENOX) syringe 40 [...] (SENOKOT) tablet 2 tablet 2 tablet Oral BID sodium chloride PF 0.9% flush 30 mL 30 mL Intravenous FLUSH TID thiamine mononitrate tablet 100 mg 100 mg Oral QDAY umeclidinium-vilanterol (ANORO ELLIPTA) 62.5-25 mcg/actuation inhaler 1 puff 1 puff Inhalation QDAY vitamin A & D topical ointment Topical QDAY vitamins, multi w/minerals tablet 1 tablet 1 tablet Oral QDAY Continuous Infusions: PRN and Respiratory Meds:acetaminophen Q6H PRN, alteplase BID PRN, magnesium sulfate PRN AND [] Magnesium PRN AND Notify Physician Ongoing, naloxone PRN, oxyCODONE Q3H PRN, potassium chloride SR PRN OR potassium chloride PRN Physical Examination Vital Signs: Last Vital Signs: 24 Hour Range BP: 122/69 (02/01 735) Temp: 36.8 C (98.2 F) (02/01 735) Pulse: 113 (02/01 735) Respirations: 18 PER MINUTE (02/01 735) SpO2: 96 % (02/01 735) O2 Delivery: Nasal Cannula (02/01 735) BP: (122-148)/(69-94) Temp: [36.4 C (97.5 F)-36.9 C (98.4 F)] Pulse: [73-113] Respirations: [16 PER MINUTE-20 PER MINUTE] SpO2: [95 %-99 %] O2 Delivery: Nasal Cannula General: Alert, cooperative, in mild distress Head: Normocephalic, without obvious abnormality, atraumatic Throat: Lips, mucosa and tongue normal. no thrush Lungs: improved BS on R, extensive ronchi, chest tube with cloudy fluid, decrease output Heart: Regular rate and rhythm Abdomen: Soft, slightly tender in the right upper quadrant Extremities: Extremities normal, atraumatic, no rash, no erythema, there is a minimal superficial ulcer on the medial left thigh, not infected some bruises Skin: Skin color, texture, turgor normal. Neurologic: Diffuse weakness Lab Review Hematology Recent Labs 01/30/18 0300 01/31/18 0330 02/01/18 0518 WBC 12.8* 9.7 10.1 HGB 9.6* 8.2* 8.3* HCT 29.2* 25.1* 24.5* PLTCT 404* 308 255 Chemistry Recent Labs 01/30/18 0300 01/31/18 0330 02/01/18 0518 NA 138 135* 138 K 3.6 3.8 3.9 CL 105 104 106 CO2 26 27 29 BUN 16 13 9 CR 1.61* 1.36* 1.30* GFR 44* 53* 56* GLU 94 111* 116* CA 8.2* 8.0* 8.2* PO4 3.8 4.2 4.1 ALBUMIN 2.1* -- 1.9* ALKPHOS 95 -- 89 AST 17 -- 14 ALT 8 -- 8 TOTBILI 0.2* -- 0.3 Microbiology, Radiology and other Diagnostics Review Microbiology data reviewed. Pertinent radiology images viewed. Impression: 01/31/18 CT: IMPRESSION 1. Significant decrease in size of a now small, loculated right hydropneumothorax, with [address] 2. Improved aeration of the right lung, with persistent patchy areas of consolidation, greatest in the right upper lobe, compatible with pneumonia. 3. Increase in size of a small left pleural effusion, with persistent patchy areas of nodularity, which are nonspecific though also likely infectious. Follow-up CT chest in approximately 3 months is recommended for reevaluation. 4. Marked emphysema. 5. At least moderate coronary artery calcification. Rah Campuzano MD Pager [phone] Infectious Diseases Faculty NESS TRANSFORMATION CONSULTANT * Osei Mccodr, PT - 02/01/2018 9:46 AM BUSINESS TRANSFORMATION CONSULTANT PHYSICAL THERAPY RE-ASSESSMENT MOBILITY: Mobility Progressive Mobility Level: Active transfer to chair Distance Walked (feet): 7 ft Level of Assistance: Assist X1 Assistive Device: Walker Time Tolerated: 0-10 minutes Activity Limited By: Lines / Medical Devices;Fatigue SUBJECTIVE: Subjective Significant hospital events: Nancy Trujillo is a 62 y.o. Male with history of COPD, HTN, HLD, CAF, CHF and afib who presented from rehab with leukocytosis with CT scan showing worsening empyema now s/p chest tube placement now s/p decortication of pleural effusion on 01/28. Mental / Cognitive Status: Alert;Cooperative;Follows Commands Persons Present: Nursing Staff Pain: Patient has no complaint of pain Comments: 2LO2NC, CTx2 to cont. suction ROM: ROM LE ROM WFL: Yes STRENGTH: Strength Overall Strength: Generalized Weakness Gross Strength Grade: 3+/5 Strength Comment: weakness greatest proximally at hips and core BED MOBILITY/TRANSFERS: Bed Mobility/Transfers Bed Mobility: Rolling: Standby Assist;Verbal Cues;Use of Rail Bed Mobility: Supine to Sit: Minimal Assist;Head of Bed Elevated;Use of Rail; Requires Extra Time(requires multiple attempts) Transfer Type: Sit to Stand Transfer: Assistance Level: From;Bed;Minimal Assist Transfer: Assistive Device: Roller Walker Transfers: Type Of Assistance: Elevated Bed;For Strength Deficit;For Safety Considerations Other Transfer Type: Stand to Sit Other Transfer: Assistance Level: To;Bed Side Chair;Minimal Assist Other Transfer: Assistive Device: Roller Walker Other Transfer: Type Of Assistance: For Safety Considerations End Of Activity Status: Up in Chair;Nursing Notified;Instructed Patient to Request Assist with Mobility;Instructed Patient to Use Call Light GAIT: Gait Gait Distance: 7 feet Gait: Assistance Level: Minimal Assist;Management of Lines;Safety Considerations Gait: Assistive Device: Roller Walker Gait: Descriptors: Pace: Slow Activity Limited By: Lines/Leads;Complaint of Fatigue Comments: After setting up to ambulate, portable suction unit battery so returned to wall suction. Ambulated within confines of lines. Pt did report fatigue with short distance ambulation at bedside. ACTIVITY/EXERCISE: Activity / Exercise Sit Edge Of Bed: 7 minutes Sit Edge Of Bed Assist: Stand By Assist EDUCATION: Education Persons Educated: Patient Patient Barriers To Learning: None Noted Teaching Methods: Verbal Instruction Patient Response: Verbalized Understanding Topics: Plan/Goals of PT Interventions ASSESSMENT/PROGRESS: Assessment/Progress Impaired Mobility Due To: Decreased Strength;Decreased Activity Tolerance; Deconditioning Assessment/Progress: Should Improve w/ Continued PT AM-PAC 6 Clicks Basic Mobility Inpatient Turning from your back to your side while in a flat bed without using bed rails : None Moving from lying on your back to sitting on the side of a flatbed without using bedrails : A Little Moving to and from a bed to a chair (including a wheelchair): A Little Standing up from a chair using your arms (e.g. wheelchair, or bedside chair): A Little To walk in hospital room: A Little Climbing 3-5 steps with a railing: A Lot Raw Score: 18 Standardized (T-scale) Score: 41.05 Basic Mobility CMS 0-100%: 40.47 CMS G Code Modifier for Basic Mobility: CK G-Codes: Mobility G8978 Current Status: 60-79% Impairment G8979 Goal Status: 20-39% Impairment Based on above evaluation and clinical judgment. GOALS: Goals Goal Formulation: With Patient Time For Goal Achievement: 7 days Pt Will Go Supine To/From Sit: w/ Stand By Assist Pt Will Transfer Bed/Chair: w/ Stand By Assist Pt Will Transfer Sit to Stand: w/ Stand By Assist Pt Will Ambulate: 31-50 Feet, w/ Walker, w/ Stand By Assist Pt Will Go Up / Down Stairs: (will establish at later date as appropriate) PLAN: Plan Treatment Interventions: Mobility Training;Strengthening;Balance Activities; Endurance Training Plan Frequency: 5-7 Days per Week PT Plan for Next Visit: increase ambulation, transfers at various heights, standing endurance RECOMMENDATIONS: PT Discharge Recommendations PT Discharge Recommendations: Inpatient Setting;Recommend Physical Medicine and Rehabilitation Consult to address most appropriate level of rehabilitation placement Therapist: Osei Mccord, PT Date: 02/01/2018 NESS TRANSFORMATION CONSULTANT * Mohan Johnson MD - 02/01/2018 8:34 AM BUSINESS TRANSFORMATION CONSULTANT Doing well this am cavitary lesion in RLL persists. Overall the CT scan is vastly improved. plan to keep the chest tubes in place for the prolonged period. ID following. Hopefully the RLL issue will resolve. transfer to rehab when available. NESS TRANSFORMATION CONSULTANT * Blanca Light, MICHELINE-TOOTH CUTTER SPUR - 02/01/2018 8:22 AM BUSINESS TRANSFORMATION CONSULTANT CARDIOTHORACIC SURGERY DAILY PROGRESS NOTE PROCEDURE: 10/29/2017- left thoracoscopic decortication of the right lung POD #: 4 LOS: 10 SUBJECTIVE: Overnight events: None. Rested well. ASSESSMENT: Nancy Trujillo is a 62 y.o. Male with history of COPD, HTN, HLD, CAF, CHF and afib who presented from rehab with leukocytosis with CT scan showing worsening empyema now s/p chest tube placement now s/p decortication of pleural effusion on 01/28. Active Problems: CAD (coronary artery disease) Paroxysmal 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 (HCC) S/P ablation of 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 Pneumonia Cytomegalovirus (CMV) viremia (HCC) Loculated pleural effusion Acute on chronic respiratory failure with hypoxia and hypercapnia (HCC) Sepsis (HCC) Pulmonary aspergillosis invasive type (HCC) COPD, severe (HCC) Secondary spontaneous pneumothorax Legionella pneumonia ([facility]) Shock ([facility]) Atrial fibrillation with RVR ([facility]) Empyema of right pleural space ([facility]) PLAN: 1. CV - Episode of bradycardia 30's 01/30 resolved, lytes replaced. Currently rhythm sinus 70-80s. SBP 140's, stable. Hx of CAD, PAF - on BB metoprolol. Pt was on Xarelto, being held while chest tubes in place, on Lovenox 40mg and remains in NSR. Continue to monitor closely on tele for further episodes of bradycardia or any rhythm changes. 2. Resp - CXR reviewed, continued improvement of pleural effusion with thoracostomy tubes x2 visualized, radiology read pending. Cont IS, wean O2, aggressive pulm toilet. Chest tubes with 50 an 90 ml out . Continue chest tubes until no further drainage, will Y tubes and switch to Mini 500 today to prepare for rehab transition. 3. Renal - 1.30 creatinine. UOP 3.9L/24hours, adequate. 4. GI - + BM 01/31, cont bowel regimen especially while on opioids. PRN zofran for nausea. Boost TID with meals to supplement. 5. ID - WBC 10.1, stable. Afebrile. On zosyn through PICC and PO isavuconazonium sulfate (per ID), recommend to continue no end date documented. 6. Endo - serum glucose 116 stable, no hx of DM or thyroid disease. 7. Activity - Ambulate TID and up to chair for meals. Strongly advised patient to work with PT/OT so he can go to rehab. 8. Disposition - Work on getting patient placed at [facility]. Place tubes to mini atrium. Continue aggressive pulm toilet, and wean O2 as able. OBJECTIVE: Vitals: 02/01/18 0400 02/01/18 0533 02/01/18 0700 02/01/18 0735 BP: 133/84 122/69 Pulse: 102 102 113 Temp: 36.9 C (98.4 F) 36.8 C (98.2 F) SpO2: 98% 96% Weight: 74.5 kg (164 lb 3.2 oz) Height: Physical Exam: General: A&O x 3 Cardiovascular: RRR no rub or murmur Respiratory: bilateral lung sounds diminished, O2 RA-2L per nasal canula, CT's to -20 suction and +air leak on #2. GI: soft, NT, +BS Extremities: No Edema Incisions: right chest tube dressings clean/dry/intact. Prophylaxis Review: Lines: No Antibiotic Usage: Yes; Infection present or suspected: Lung; Other lung infection VTE: Pharmacological prophylaxis; Enoxaparin and Mechanical prophylaxis; Sequential compression device Urinary Catheter: No Chest Tubes OUTPUT/24 HOURSAIR LEAK PRESENT Pleural #1 50 no Pleural # 2 90 Yes LABS: Lab Results Component Value Date/Time WBC 10.1 02/01/2018 05:18 AM HGB 8.3 (L) 02/01/2018 05:18 AM HCT 24.5 (L) 02/01/2018 05:18 AM PLTCT 255 02/01/2018 05:18 AM Lab Results Component Value Date/Time NA 138 02/01/2018 05:18 AM K 3.9 02/01/2018 05:18 AM CL 106 02/01/2018 05:18 AM CO2 29 02/01/2018 05:18 AM BUN 9 02/01/2018 05:18 AM CR 1.30 (H) 02/01/2018 05:18 AM GLU 116 (H) 02/01/2018 05:18 AM Lab Results Component Value Date MG 1.9 02/01/2018 Lab Results Component Value Date PO4 4.1 02/01/2018 Lab Results Component Value Date GLUPOC 141 (H) 12/17/2017 GLUPOC 76 12/16/2017 GLUPOC 116 (H) 11/23/2017 GLUPOC 109 (H) 11/22/2017 GLUPOC 134 (H) 11/22/2017 GLUPOC 112 (H) 11/22/2017 GLUPOC 134 (H) 11/22/2017 GLUPOC 137 (H) 11/21/2017 QUE Marmolejo [id number] 8: 22 AM BUSINESS TRANSFORMATION CONSULTANT * Bertha Mcclure RN - 02/01/2018 6:21 AM BUSINESS TRANSFORMATION CONSULTANT VSS, SR/ST on tele. C/o pain, VISUAL EFFECTS ARTIST and prn oxycodone given for pain control. CT 1 with [address]ml out overnight. CT 2 with 20ml out overnight. Adequate UOP. Will continue to monitor. NESS TRANSFORMATION CONSULTANT * Ayo Eisenberg, RT - 02/01/2018 5:46 AM BUSINESS TRANSFORMATION CONSULTANT RT Adult Assessment Note NAME:Nancy Trujillo :1955 AGE: 62 y.o. ADMISSION DATE: 01/21/2018 DAYS ADMITTED: LOS: 11 days RT Treatment Plan: Protocol Plan: Medications Albuterol: Neb BID Acetylcysteine: Neb BID Protocol Plan: Procedures Vibrating PEP Therapy: BID IPPB: Place a nursing order for "IS Q1h While Awake" for any of Lung Expansion indicators Oxygen/Humidity: O2 to keep SpO2 > 92% Monitoring: Pulse oximetry BID & PRN Additional Comments: Impressions of the patient: no distress. Intervention(s)/outcome(s): Cont on current regs. Alb&Mm BID. Anoro Qday. Vib PEP therapy for airway clearance BID. IS with RN. Patient education that was completed: none Recommendations to the care team: none Vital Signs: Pulse: Pulse: 102 RR: Respirations: 18 PER MINUTE SpO2: SpO2: 98 % O2 Device: $$ O2 Device: Cannula Liter Flow: O2 Liter Flow: 2.5 lpm(SpO2 90% on 1L) O2%: Breath Sounds: All Breath Sounds: Rhonchi;Coarse crackles Respiratory Effort: Respiratory Effort: Non-Labored NESS TRANSFORMATION CONSULTANT * Armando Guaman RN - 01/31/2018 5:18 PM BUSINESS TRANSFORMATION CONSULTANT Assessments complete and documented per flowsheet, no acute changes noted. A/Ox4. VSS. Tolerating 2L. SR on tele. Moderate pain adequately managed with fentanyl VISUAL EFFECTS ARTIST and PRN oxycodone. Surgical incisions C/D/I. Pt nauseous this afternoon, did not want to ambulate, up to bathroom and chair with 2, fall bundle in place. UOA, BM 01/31 CT x2 to -20 suction, 0 mL and 70 mL output. Call light within reach, will continue to monitor until transferring care to shift superintendent caustic cresylate RN. NESS TRANSFORMATION CONSULTANT * Mohan Johnson MD - 01/31/2018 4:00 PM BUSINESS TRANSFORMATION CONSULTANT The patient is doing remarkably well. He has decreasing drainage out of both chest tubes. We will obtain his repeat CT scan of the chest to evaluate his current anatomy. Hopefully we will be able to remove 1 of the 2 chest tubes. My plan is to send the patient home with a Heimlich valve in place. NESS TRANSFORMATION CONSULTANT * Nela Shields - 01/31/2018 2:28 PM BUSINESS TRANSFORMATION CONSULTANT OCCUPATIONAL THERAPY NOTE Attempted to see patient for skilled OT tx session at this time. Pt c/o nausea with gagging during bedside visit; RN notified. Assisted pt to boost up in bed and positioned for comfort in chair mode. Pt verbalized motivation to progress mobility with therapies as nausea is controlled, but he declined attempt to mobilize further at this time as he was not feeling well. RN aware. Will continue to follow and provide intervention as able and indicated. Therapist: GULSHAN Guadarrama/Joyce [id number] Date: 01/31/2018 NESS TRANSFORMATION CONSULTANT * Rah Campuzano MD - 01/31/2018 1:49 PM BUSINESS TRANSFORMATION CONSULTANT Infectious Diseases Progress note Today's Date: 01/31/2018 Admission Date: 01/21/2018 Reason for this consultation: I was asked to provide my opinion and recommendations regarding this 62-year-old man with worsening vascular status extensive emphysema and new pneumothorax on the right side I reviewed the patient record there were extensive and summarized them, I personally viewed the CT scan of the chest from 01/21/2018 showed extensive infiltrate in the right lung and loculated pneumothorax possible necrosis of the lung. Assessment: Invasive pulmonary aspergillosis in COPD patient with right-sided extensive disease s/p right decoritcation 01/29/18 -Worsening resp failure -Fever/leukocytosis 01/21 -Ct chest 01/21/2018: Development of a moderate [...] - Fungitell 38, Galactomannan 0.052. 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 Not detected on first BAL, virus detected on 12/21/17 BAL. Treated. Significant debility P. mirabilis pneumonia 01/16/18 DEONTE 01/26 Recommendations: 1. Continue Zosyn, 2. Continue cresemba 3. Follow on CT surgery recs , noted plan for thoracoscopy and debridement today 4. Monitor labs for toxicity 5. Will follow. Mr. Trujillo has complex disease requiring complex medical decision making for pneumonia, aspergillosis, therapeutic drug monitoring, resp failure. I reviewed the chart and interviewed and examined the patient and formulated the plan as above. History of Present Illness Nancy Trujillo is a 62 y.o. Man Afebrile. On 2L NC. WBC normalized. Cr improved. Had bradycardic episode recently. Up in bed. Still cough. No f/c/ns, abd pain, FERGUSON, neck pain. Still with nausea. Abx Zosyn 01/22/18 cresemba Extensive history vanc 01/22 to 05/01 micafungin stopped 01/23 valcyte stopped 01/26 Estimated Creatinine Clearance: 60.2 mL/min (A) (based on SCr of 1.36 mg/dL (H)) . Medications Scheduled Meds: acetylcysteine (MUCOMYST) 200 mg/mL (20 %) nebulizer solution 3 mL 3 mL Inhalation Q12H albuterol 0.5% (PROVENTIL; VENTOLIN) nebulizer solution 2.5 mg 2.5 mg Inhalation BID & PRN ascorbic acid (VITAMIN C) tablet 500 mg 500 mg Oral QDAY cholecalciferol (VITAMIN D-3) tablet 400 Units 400 Units Oral QDAY docusate (COLACE) capsule 200 mg 200 mg Oral BID enoxaparin (LOVENOX) syringe 40 [...] (SENOKOT) tablet 2 tablet 2 tablet Oral BID SODIUM CHLORIDE 0.9 % IV SOLP (Cabinet Override) NOW sodium chloride PF 0.9% flush 30 mL 30 mL Intravenous FLUSH TID thiamine mononitrate tablet 100 mg 100 mg Oral QDAY umeclidinium-vilanterol (ANORO ELLIPTA) 62.5-25 mcg/actuation inhaler 1 puff 1 puff Inhalation QDAY vitamin A & D topical ointment Topical QDAY vitamins, multi w/minerals tablet 1 tablet 1 tablet Oral QDAY Continuous Infusions: fentaNYL (SUBLIMAZE) VISUAL EFFECTS ARTIST 550 mcg/ NS 55 mL infusion syr (std conc)(premade ) PRN and Respiratory Meds:acetaminophen Q4H PRN, alteplase BID PRN, HYDROcodone/ acetaminophen Q6H PRN, magnesium sulfate PRN AND [] Magnesium PRN AND Notify Physician Ongoing, naloxone PRN, oxyCODONE Q3H PRN, potassium chloride SR PRN OR potassium chloride PRN Physical Examination Vital Signs: Last Vital Signs: 24 Hour Range BP: 148/94 (01/31 1200) Temp: 36.7 C (98 F) (12/17 1200) Pulse: 86 (01/31 1200) Respirations: 18 PER MINUTE (02/01 1200) SpO2: 96 % (01/31 1200) O2 Delivery: Nasal Cannula (02/01 1200) BP: (135-148)/(78-97) Temp: [36.4 C (97.6 F)-36.7 C (98 F)] Pulse: [79-97] Respirations: [16 PER MINUTE-18 PER MINUTE] SpO2: [93 %-100 %] O2 Delivery: Nasal Cannula General: Alert, cooperative, in mild distress Head: Normocephalic, without obvious abnormality, atraumatic Throat: Lips, mucosa and tongue normal. no thrush Lungs: improved BS on R, extensive ronchi, chest tube with cloudy fluid, decrease output Heart: Regular rate and rhythm Abdomen: Soft, slightly tender in the right upper quadrant Extremities: Extremities normal, atraumatic, no rash, no erythema, there is a minimal superficial ulcer on the medial left thigh, not infected some bruises Skin: Skin color, texture, turgor normal. Neurologic: Diffuse weakness Lab Review Hematology Recent Labs 01/29/18 0730 01/30/18 0300 01/31/18 0330 WBC 13.4* 12.8* 9.7 HGB 8.6* 9.6* 8.2* HCT 26.8* 29.2* 25.1* PLTCT 338 404* 308 Chemistry Recent Labs 01/29/18 0451 01/30/18 0300 01/31/18 0330 NA 139 138 135* K 3.4* 3.6 3.8 CL 107 105 104 CO2 26 26 27 BUN 21 16 13 CR 1.78* 1.61* 1.36* GFR 39* 44* 53* GLU 117* 94 111* CA 7.5* 8.2* 8.0* PO4 4.5 3.8 4.2 ALBUMIN -- 2.1* -- ALKPHOS -- 95 -- AST -- 17 -- ALT -- 8 -- TOTBILI -- 0.2* -- Microbiology, Radiology and other Diagnostics Review Microbiology data reviewed. Pertinent radiology images viewed. Impression: 01/31/18 CXR: IMPRESSION 1. Two right chest tubes remain in place with persistent small right pleural effusion. No pneumothorax identified. 2. Marked emphysematous changes. 3. Persistent patchy mixed bilateral opacities, greatest within the right lung base. Rah Campuzano MD Pager [phone] Infectious Diseases Faculty NESS TRANSFORMATION CONSULTANT * JonnyHamiltonAshely, Blanca Evans, FIELD RADIO TECHNICIAN-TOOTH CUTTER SPUR - 01/31/2018 10:15 AM BUSINESS TRANSFORMATION CONSULTANT CARDIOTHORACIC SURGERY DAILY PROGRESS NOTE PROCEDURE: 10/29/2017- left thoracoscopic decortication of the right lung POD #: 3 LOS: 9 SUBJECTIVE: Overnight events: Pt had episode of bradycardia over the weekend, lytes replaced , no events since. Reporting occasional nausea, no vomiting. Pain controlled with fentanyl VISUAL EFFECTS ARTIST. ASSESSMENT: Nancy Trujillo is a 62 y.o. Male with history of COPD, HTN, HLD, CAF, CHF and afib who presented from rehab with leukocytosis with CT scan showing worsening empyema now s/p chest tube placement now s/p decortication of pleural effusion on 01/28. Active Problems: CAD (coronary artery disease) Paroxysmal 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 (HCC) S/P ablation of 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 Pneumonia Cytomegalovirus (CMV) viremia (HCC) Loculated pleural effusion Acute on chronic respiratory failure with hypoxia and hypercapnia (HCC) Sepsis ([facility]) Pulmonary aspergillosis invasive type (HCC) COPD, severe (HCC) Secondary spontaneous pneumothorax Legionella pneumonia ([facility]) Shock ([facility]) Atrial fibrillation with RVR ([facility]) Empyema of right pleural space ([facility]) PLAN: 1. CV - Episode of bradycardia 30's 01/30 resolved, lytes replaced. Currently rhythm sinus 70-80s. SBP 140's, stable. Hx of CAD, PAF - on BB metoprolol. Pt was on Xarelto, being held while chest tubes in place, on Lovenox 40mg and remains in NSR. Continue to monitor closely on tele for further episodes of bradycardia or any rhythm changes. 2. Resp - CXR reviewed, slight improvement of right pleural effusion with thoracostomy tubes x2 visualized, radiology read pending. Cont IS, wean O2, aggressive pulm toilet. RT #1 chest tube w/o air leak, RT #2 with small air leak on continuous suction. 10ml/24 hours total. Continue chest tubes x2 days and will more than likely need home O2. 3. Renal - 1.36 creatinine. UOP 1550/24hours, adequate. 4. GI - + BM 01/29, cont bowel regimen especially while on opioids. Pt reports daily BM's, however documentation not reflective of this. Nausea reported yesterday with bradycardia episode. Zofran PRN, shopping inspector reviewing patient at bedside appreciate rec's. Will start boost TID with meals to supplement. 5. ID - WBC 9.7, stable. Afebrile. On zosyn through PICC and PO isavuconazonium sulfate (per ID). 6. Endo - serum glucose 111 stable, no hx of DM or thyroid disease. 7. Activity - Ambulate TID and up to chair for meals. 8. Disposition - Anticipate continuing inpatient stay x2 more days, then transition to [facility], will continue chest tubes to wall suction, aggressive pulm toilet, and wean O2 as able. OBJECTIVE: Vitals: 01/30/18 2245 01/31/18 0326 01/31/18 0543 01/31/18 0724 BP: (!) 145/93 (!) 142/93 143/78 Pulse: 84 83 79 82 Temp: 36.5 C (97.7 F) 36.7 C (98 F) 36.4 C (97.6 F) SpO2: 95% 93% 97% 100% Weight: Height: Physical Exam: General: A&O x 3 Cardiovascular: RRR no rub or murmur Respiratory: bilateral lung sounds diminished, O2 RA-2L per nasal canula, CT's to -20 suction and +air leak on #2. GI: soft, NT, +BS Extremities: No Edema Incisions: right chest tube dressings damp, skin surrounding dressing without redness and intact Prophylaxis Review: Lines: No Antibiotic Usage: Yes; Infection present or suspected: Lung; Other lung infection VTE: Pharmacological prophylaxis; Enoxaparin and Mechanical prophylaxis; Sequential compression device Urinary Catheter: No Chest Tubes OUTPUT/24 HOURSAIR LEAK PRESENT Pleural #1 0 no Pleural # 2 10 Yes LABS: Lab Results Component Value Date/Time WBC 9.7 01/31/2018 03:30 AM HGB 8.2 (L) 01/31/2018 03:30 AM HCT 25.1 (L) 01/31/2018 03:30 AM PLTCT 308 01/31/2018 03:30 AM Lab Results Component Value Date/Time NA 135 (L) 01/31/2018 03:30 AM K 3.8 01/31/2018 03:30 AM CL 104 01/31/2018 03:30 AM CO2 27 01/31/2018 03:30 AM BUN 13 01/31/2018 03:30 AM CR 1.36 (H) 01/31/2018 03:30 AM GLU 111 (H) 01/31/2018 03:30 AM Lab Results Component Value Date MG 2.2 01/31/2018 Lab Results Component Value Date PO4 4.2 01/31/2018 Lab Results Component Value Date GLUPOC 141 (H) 12/17/2017 GLUPOC 76 12/16/2017 GLUPOC 116 (H) 11/23/2017 GLUPOC 109 (H) 11/22/2017 GLUPOC 134 (H) 11/22/2017 GLUPOC 112 (H) 11/22/2017 GLUPOC 134 (H) 11/22/2017 GLUPOC 137 (H) 11/21/2017 Blanca Light APRN-NPC [id number] 10: 15 AM BUSINESS TRANSFORMATION CONSULTANT * Bertha Mcclure RN - 01/31/2018 5:22 AM BUSINESS TRANSFORMATION CONSULTANT No acute changes overnight. VSS, SR on tele. C/o pain on right side of chest, VISUAL EFFECTS ARTIST and prn oxycodone given for pain control. CT's remain to suction with 30ml output from CT [address] 2. Adequate UOP. Will continue to monitor. NESS TRANSFORMATION CONSULTANT * Zunilda Ortiz RN - 01/30/2018 5:31 PM BUSINESS TRANSFORMATION CONSULTANT Pt had quite a bit of pain this morning, but after adding 5mg oxy PRN, it is much improved, and he is able to cough up large amounts of thick sputum. He has been out of bed to the chair, and will need PT/OT if not already ordered. CTs to suctions with minimal output this shift. Urine output adequate/+BM this shift. Buttocks slightly reddened, but skin still blanchable. Appetite poor, but good liquid intake. Pt had a quick drop in HR down to the 30s for a couple of beats, but went right back up to the 80s. Mag and potassium both replaced today. PA notified, and atropine placed outside the room. Will cont to monitor closely NESS TRANSFORMATION CONSULTANT * Osvaldo Richardson PA-C - 01/30/2018 12:00 PM BUSINESS TRANSFORMATION CONSULTANT Thoracic Surgery Progress Note 01/30/2018 Patient: Nancy Trujillo Admission date 01/21/2018, LOS: 9 days ASSESSMENT: Nancy Trujillo is a 62 y.o. Male with history of COPD, HTN, HLD, CAF, CHF and afib who presented from rehab with leukocytosis with CT scan showing worsening empyema now s/p chest tube placement now s/p decortication of pleural effusion on 01/28. Pneumonia [J18.9] Loculated pleural effusion [J90] Active Problems: CAD (coronary artery disease) Paroxysmal 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 (HCC) S/P ablation of 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 Pneumonia Cytomegalovirus (CMV) viremia (HCC) Loculated pleural effusion Acute on chronic respiratory failure with hypoxia and hypercapnia (HCC) Sepsis (HCC) Pulmonary aspergillosis invasive type (HCC) COPD, severe (HCC) Secondary spontaneous pneumothorax Legionella pneumonia (HCC) Shock (HCC) Atrial fibrillation with RVR (HCC) Empyema of right pleural space (HCC) PLAN: - Maintain CT to wall suction, will continue to monitor output 420ml/24hrs - Regular diet - ID following: continue zosyn, cresemba - Encourage ambulation - Aggressive RT treatments Patient seen and discussed with Dr. Sweeney, who directed the plan of care SUBJECTIVE: No acute events overnight. Afebrile. Leukocytosis and Cr continue downtrending. Denies shortness of breath. Comfortable. OBJECTIVE: Vital Signs: Last Filed Vital Signs: 24 Hour Range BP: 121/83 (01/30 726) Temp: 36.7 C (98 F) (01/30 726) Pulse: 89 (01/30 0833) Respirations: 18 PER MINUTE (01/30 726) SpO2: 95 % (01/30 822) O2 Delivery: None (Room Air) (01/30 726) Weight: 75.6 kg (166 lb 10.7 oz) (01/30 040) BP: (97-137)/(71-93) Temp: [36.7 C (98 F)-36.8 C (98.3 F)] Pulse: [84-100] Respirations: [18 PER MINUTE-24 PER MINUTE] SpO2: [90 %-97 %] O2 Delivery: None (Room Air) Intensity Pain Scale (Self Report): (not recorded) Constitutional: A&O, NAD Pulm: Diminished breath sounds bilaterally, unlabored on RA-1L NC. CT to wall suction, airleak, serous drainage Cardio: RRR Abdomen: Soft, not tender, not distended Extremities: No C/C/E Recent Labs 01/28/18 0310 01/29/18 0451 01/29/18 0730 01/30/18 0300 HGB 8.9* -- 8.6* 9.6* HCT 26.7* -- 26.8* 29.2* WBC 15.7* -- 13.4* 12.8* PLTCT 395 -- 338 404* NA 137 139 -- 138 K 4.2 3.4* -- 3.6 CL 106 107 -- 105 CO2 26 26 -- 26 BUN 22 21 -- 16 CR 2.36* 1.78* -- 1.61* GLU 100 117* -- 94 CA 8.2* 7.5* -- 8.2* MG 2.3 2.1 -- 1.9 PO4 5.4* 4.5 -- 3.8 ALBUMIN 2.0* -- -- 2.1* TOTPROT 5.5* -- -- 6.0 TOTBILI 0.3 -- -- 0.2* AST 16 -- -- 17 ALT 12 -- -- 8 ALKPHOS 94 -- -- 95 Glucose: 94 (01/30/18 0300) Intake/Output Summary (Last 24 hours) at 01/30/2018 1200 Last data filed at 01/30/2018 1200 Gross per 24 hour Intake 767 ml Output 1780 ml Net -1013 ml Stool Occurrence: 1 NESS TRANSFORMATION CONSULTANT * Prashant Joseph, RN - 01/30/2018 5:18 AM BUSINESS TRANSFORMATION CONSULTANT VISUAL EFFECTS ARTIST infusing per orders, covering pain well; CT dressing c/d/i; CT output ~100ml out first CT, nothing out of second CT; slept well most of night otherwise; NESS TRANSFORMATION CONSULTANT * Ben Greene, RT - 01/29/2018 4:58 PM BUSINESS TRANSFORMATION CONSULTANT RT Adult Assessment Note NAME:Nancy Trujillo :1955 AGE: 62 y.o. ADMISSION DATE: 01/21/2018 DAYS ADMITTED: LOS: 8 days RT Treatment Plan: Protocol Plan: Medications Albuterol: Neb BID Acetylcysteine: Neb BID Protocol Plan: Procedures Vibrating PEP Therapy: Q4h While Awake PAP: Place a nursing order for "IS Q1h While Awake" for any of Lung Expansion indicators Oxygen/Humidity: O2 to keep SpO2 > 92% Monitoring: Pulse oximetry BID & PRN Additional Comments: Impressions of the patient:good spirits Intervention(s)/outcome(s): cont with current txs Patient education that was completed: Recommendations to the care team: Vital Signs: Pulse: Pulse: 91 RR: SpO2: SpO2: 95 % O2 Device: $$ O2 Device: Cannula Liter Flow: O2 Liter Flow: 1 lpm O2%: Breath Sounds: Respiratory Effort: NESS TRANSFORMATION CONSULTANT * Maria Draper RN - 01/29/2018 4:00 PM BUSINESS TRANSFORMATION CONSULTANT Patient arrived on unit via bed accompanied by Unit 61 staff. Patient transferred to the new bed with assistance. Assessment completed, refer to flowsheet for details. Orders released, reviewed, and implemented as appropriate. Oriented to surroundings, call light within reach. Plan of care reviewed. Will continue to monitor and assess. Vitals obtained and tele placed. Pt alert and oriented. Pt on room air. Pt with productive cough. CT x2 in place to CO wall suction. RN changed dressing. + bowel sounds BM 01/29. Pt voiding. PICC line in place. VISUAL EFFECTS ARTIST available for pain, RN reviewed settings with pt. Pt verbalized understanding and states VISUAL EFFECTS ARTIST assisting with pain. HFR in place. Will monitor. NESS TRANSFORMATION CONSULTANT * Nilsa Mallory RN ([place]) - 01/29/2018 3:30 PM BUSINESS TRANSFORMATION CONSULTANT [facility]. Pt tolerated move well. HC4 RN at bedside, safety check done, Fentanyl VISUAL EFFECTS ARTIST verified. NESS TRANSFORMATION CONSULTANT * Yuli Rankin MD - 01/29/2018 9:46 AM BUSINESS TRANSFORMATION CONSULTANT Thoracic Surgery Progress Note 01/29/2018 Patient: Nancy Trujillo Admission date 01/21/2018, LOS: 8 days ASSESSMENT: Nancy Trujillo is a 62 y.o. Male with history of COPD, HTN, HLD, CAF, CHF and afib who presented from rehab with leukocytosis with CT scan showing worsening empyema now s/p chest tube placement now s/p decortication of pleural effusion on 01/28. Pneumonia [J18.9] Loculated pleural effusion [J90] Active Problems: CAD (coronary artery disease) Paroxysmal 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 (HCC) S/P ablation of 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 Pneumonia Cytomegalovirus (CMV) viremia (HCC) Loculated pleural effusion Acute on chronic respiratory failure with hypoxia and hypercapnia (HCC) Sepsis (HCC) Pulmonary aspergillosis invasive type (HCC) COPD, severe (HCC) Secondary spontaneous pneumothorax Legionella pneumonia (HCC) Shock (HCC) Atrial fibrillation with RVR (HCC) Empyema of right pleural space (HCC) PLAN: - Transfer to thoracic service and HC4 - Maintain CT to wall suction, will continue to monitor output - Regular diet - ID following: continue zosyn, cresemba - Encourage ambulation - Aggressive RT treatments Patient seen and discussed with Dr. Sweeney, who directed the plan of care SUBJECTIVE: No acute events overnight. Afebrile. Leukocytosis downtrending. Denies shortness of breath. Comfortable. OBJECTIVE: Vital Signs: Last Filed Vital Signs: 24 Hour Range BP: 124/89 (01/30 800) Temp: 36.7 C (98.1 F) (01/30 800) Pulse: 87 (01/30 800) Respirations: 23 PER MINUTE (01/30 800) SpO2: 100 % (01/30 800) O2 Delivery: High Flow Nasal Cannula (01/30 800) Weight: 76.6 kg (168 lb 14 oz) (01/29 600) BP: (104-141)/(66-95) Temp: [36.5 C (97.7 F)-36.9 C (98.5 F)] Pulse: [87-99] Respirations: [13 PER MINUTE-26 PER MINUTE] SpO2: [95 %-100 %] O2 Delivery: High Flow Nasal Cannula Intensity Pain Scale (Self Report): 3 (01/29/18 08) Constitutional: A&O, NAD Pulm: Diminished breath sounds bilaterally, unlabored on 2L NC. CT to wall suction, on airleak, serous drainage Cardio: RRR Abdomen: Soft, not tender, not distended Extremities: No C/C/E Recent Labs 01/26/18 1420 01/27/18 0352 01/28/18 0310 01/29/18 0451 01/29/18 0730 HGB -- 8.8* 8.9* -- 8.6* HCT -- 27.0* 26.7* -- 26.8* WBC -- 16.6* 15.7* -- 13.4* PLTCT -- 408* 395 -- 338 NA 136* 138 137 139 -- K 4.8 4.5 4.2 3.4* -- CL 104 106 106 107 -- CO2 24 25 26 26 -- BUN 18 20 22 21 -- CR 2.08* 2.10* 2.36* 1.78* -- GLU 100 89 100 117* -- CA 8.0* 8.0* 8.2* 7.5* -- MG -- 2.3 2.3 2.1 -- PO4 -- 5.1* 5.4* 4.5 -- ALBUMIN -- -- 2.0* -- -- TOTPROT -- -- 5.5* -- -- TOTBILI -- -- 0.3 -- -- AST -- -- 16 -- -- ALT -- -- 12 -- -- ALKPHOS -- -- 94 -- -- Glucose: (!) 117 (01/29/18 0451) Intake/Output Summary (Last 24 hours) at 01/29/2018 0946 Last data filed at 01/29/2018 0900 Gross per 24 hour Intake 1900 ml Output 2120 ml Net -220 ml Stool Occurrence: 1 Yuli Rankin MD [id number] NESS TRANSFORMATION CONSULTANT * Prashanth Chawla MD - 01/29/2018 7:16 AM BUSINESS TRANSFORMATION CONSULTANT Nancy Trujillo Today's Date: 01/29/2018 Admission Date: 01/21/2018 LOS: 8 days Assessment/Plan: Active Problems: CAD (coronary artery disease) Paroxysmal 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 (HCC) S/P ablation of 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 Pneumonia Cytomegalovirus (CMV) viremia (HCC) Loculated pleural effusion Acute on chronic respiratory failure with hypoxia and hypercapnia (HCC) Sepsis (HCC) Pulmonary aspergillosis invasive type (HCC) COPD, severe (HCC) Secondary spontaneous pneumothorax Legionella pneumonia (HCC) Shock (HCC) Atrial fibrillation with RVR (HCC) Empyema of right pleural space (HCC) Hospital course: Nancy Trujillo is a 62 y/o male w/ PMH significant forHTN, HLD, CADs/p PCI 2012, CHF,tobacco use,COPD on 2-3 L/NC Q HS, afibw/ recent prolonged hospitalization for legionella &aspergillosis pneumonia as well as +CMV/HSV in BAL c/b inability to wean from the vent requiring trach/PEG (both tubes now removed) &R chest tube placement&PEA arrest from mucus plug. He was discharged to rehab 12/31. Admitted to the floor from rehab on 12/ 7w/worsening tachycardia, leukocytosis &fever. CT chest showed new loculated R hydropneumothorax &consolidation.Transferred to ICU for chest tube placement &increasing O2 requirements.Underwent pigtail placement x 2 to R anterior space &R posterior space, started TPA/dornase.Repeat CT chest 01/25 showedresolution of the anterior hydropneumothorax. There has been improvement in the posterior lateral pleural effusion but despite TPA and dornase the complex pleural space persists. Removed anterior CT 01/25.CTS following, to OR 01/28 for VATS, decortication.IDfollowing; abxw/ zosyn, cresemba. Stable for floor, will transfer to CTS service. NEURO - Alert and oriented PULM COPD Acute on Chronic Hypoxic Respiratory Failure InvasivePulmonaryAspergillosis LegionellaPneumonia P.MirabilisPneumonia R LoculatedHydropneumothorax - Baseline O2 2-3 L/NC Q HS - Had prolongedrecenthospitalization for legionella pneumonia, mirabilis pneumonia &necrotizing aspergillosis; also possible aspiration pneumonia -Had MAC in sputum cx + CMV & HSV in BAL -S/p chest tube 12/16 -12/29; fluid exudative, cultures negative - Had finished treatment w/zosyn,linezolid & micafungin; was receiving micafungin, cresemba,&valganciclovir -Developedfever&leukocytosis 01/21 - CT chest 01/21:development of moderate loculated right pneumothorax w/ anterior &apical component, persistent extensive right lung consolidation c/w pneumonia, slight improvement in mild patchy &nodular left lung opacities - Tx to ICU01/22for chest tube placement & increasing O2 requirements on the floor - PlacedR sided chest tube x 2 to anterior space & posterior space & started TPA/dornaseto posterior tube - Pleural fluid cell counts: WBC 12,995; neutrophil predominate, exudative fluid , cx NGTD - CT chest 01/25: significant overall improvement in the moderate loculated hydropneumothorax after placement of 2 pleural drains; persistent extensive right lung consolidation compatible with pneumonia and/or atelectasis; stable patchy and nodular left lung opacities with a small left pleural effusion - Anterior CT dc'd 01/25 - Posterior CT -- completed TPA/dornase on 01/25;640 mL output PLAN -Addedanoro,acapella, mucomyst nebs &albuterol prior to mucomyst -CTS following -->surgery 01/28 - continue CT x 2 to wall suction (one with intermittent air leak present since 01/28) -Continue zosyn, cresemba -Dc'd spiriva/symbicort w/ recurrent respiratory infections; continue mucinex , flonaseAKI CV Hx Paroxysmal Afib Shock(resolved) - S/p ablation 2013 - Had RVR103/25-01/23w/ associated hypotension --> started amiodarone gtt & phenyl gtt - Shock likely /2 RVR- phenyl weaned off 01/23 afternoon - Lactate negative - Dig level 1.0 (12/21) --> 2.1 (01/27) -> 1.6 (01/28) - HR 90s PLAN -ContinuePTA metoprolol 12.5 mg BID - Hold digoxin; repeat dig level Wednesday -Continue to hold xarelto w/ CT in place & possible procedures in near future , resumed ppx lovenox today CAD s/p PCIto RCA 2012 HTN/HLD - Echo 11/22: LVEF 70%, trace TR, RV normal, trace effusion - 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,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 PLAN -Continue qvwrgbwigr34.5 mg BID - HoldingPTAlasix (60 mg BID) AAA -CT abd/tyuhyo52/5/18: fusiform infrarenal abdominal aortic aneurysm measuring up to 4.9 cm in maximum diameter -Will need monitoringoutpatient GI - Regular diet - Colace/senna/miralax GERD -Continueprotonix - Zofran w/ meals RENAL DEONTE - Cr 0.41 on 01/25 --> 1.77 on 01/26 --> 2.36 01/28 AM -> 1.8 today - K+ 4.2, CO2 26, BUN 22 - FENa 1.27%, FEUrea 57.2% - Eosinophil stain negative - I/O:1.7/2.2 PLAN - Continue to monitor - Avoid nephrotoxins -- vancomycin dc'd 01/25, toradol and valganciclovir dc'd 01/26 ID InvasivePulmonaryAspergillosis LegionellaPneumonia Possible Aspiration Pneumonia P.MirabilisPneumonia CMV Viremia - Recent prolonged hospitalization for legionella & aspergillosis pneumonia as well as +CMV/HSV in BAL - Also w/ MAC in sputum 12/20/17& proteus in sputum 01/16/18 - WBC15.7,afebrile - CT chest as above w/ pneumonia - Blood cx 01/21: no growth - Fungal blood cx 01/21:NGTD - Sputum cx 01/22:contamination - does not meet criteria for culture - Pleural fluid 01/22: WBC 12,995 neutrophil predominate, cx no growth - Pleural fluidfungal cxNGTD, AFB pending PLAN -Continue zosyn and cresemba - ID following - follow cultures to final HEME Thrombocytosis - May be reactive 2/2 infection - Hgb8.6, [id number] - resume PPx lovenox Code Status: Full Dispo: transfer to floor, CTS service Jovanna Desouza APRN Pulmonary Critical Care Pager: [phone] M3 team pager [phone] ATTESTATION I personally interviewed and examined the patient. I have reviewed the history , physical, impression and plan outlined by the Nurse Practitioner. The patient presents with acute respiratory failure from necrotizing pneumonia of the right lung. Taken to OR yesterday for VATS decortication. Pt doing well post-operatively. Anterior chest tubes in place and functional. On examination pt is lying in bed alert and oriented in NAD. Right lung with chest tubes in place. Course breath sounds. CV regular without murmur. Abdomen soft/BS+. Extremities without cl/cy or edema. Neurologically intact. Reviewed labs and images with TOOTH CUTTER SPUR. My impression is improving necrotizing pneumonia s/p VATS decortication. My plan is to continue antibiotics with Zosyn and cresemba. Pt to transfer to CTS service on floor status. Staff name: Prashanth Chawla MD Date: 01/29/2018 Subjective: Nancy Trujillo is a 62 y.o. who is resting in bed this AM. He is feeling better. Pain is controlled well with VISUAL EFFECTS ARTIST and has only required intermittent doses through the night. He is breathing OK. ROS: Constitutional: negative for fevers Eyes: negative for visual disturbance Ears, nose, mouth, throat, and face: negative for nasal congestion and hoarseness Respiratory:+ for cough, R sided pain Cardiovascular: negative for chest pain, palpitations Gastrointestinal: negative for nausea, vomiting Genitourinary:negative for dysuria Hematologic/lymphatic: negative for bleeding Neurological: negative for headaches and dizziness Objective: Medications: Scheduled Meds: acetylcysteine (MUCOMYST) 200 mg/mL (20 %) nebulizer solution 3 mL 3 mL Inhalation Q12H albuterol 0.5% (PROVENTIL; VENTOLIN) nebulizer solution 2.5 mg 2.5 mg Inhalation BID & PRN ascorbic acid (VITAMIN C) tablet 500 mg 500 mg Oral QDAY cholecalciferol (VITAMIN D-3) tablet 400 Units 400 Units Oral QDAY docusate (COLACE) capsule 200 mg 200 mg Oral BID enoxaparin (LOVENOX) syringe 40 [...] (SENOKOT) tablet 2 tablet 2 tablet Oral BID sodium chloride PF 0.9% flush 30 mL 30 mL Intravenous FLUSH TID thiamine mononitrate tablet 100 mg 100 mg Oral QDAY umeclidinium-vilanterol (ANORO ELLIPTA) 62.5-25 mcg/actuation inhaler 1 puff 1 puff Inhalation QDAY vitamin A & D topical ointment Topical QDAY vitamins, multi w/minerals tablet 1 tablet 1 tablet Oral QDAY Continuous Infusions: fentaNYL (SUBLIMAZE) VISUAL EFFECTS ARTIST 550 mcg/ NS 55 mL infusion syr (std conc)(premade ) PRN and Respiratory Meds:acetaminophen Q4H PRN, alteplase BID PRN, HYDROcodone/ acetaminophen Q6H PRN, magnesium sulfate PRN AND [] Magnesium PRN AND Notify Physician Ongoing, naloxone PRN, potassium chloride SR PRN OR potassium chloride PRN Vital Signs: Last Filed Vital Signs: 24 Hour Range BP: 124/102 (01/29 1000) Temp: 36.7 C (98.1 F) (01/29 0800) Pulse: 88 (01/29 1000) Respirations: 24 PER MINUTE (01/29 1000) SpO2: 98 % (01/29 1000) O2 Delivery: High Flow Nasal Cannula (01/29 1000) SpO2 Pulse: 88 (01/29 1000) BP: (104-141)/(67-102) Temp: [36.5 C (97.7 F)-36.9 C (98.5 F)] Pulse: [87-99] Respirations: [13 PER MINUTE-26 PER MINUTE] SpO2: [95 %-100 %] O2 Delivery: High Flow Nasal Cannula Intensity Pain Scale (Self Report): 3 (01/29/18 0800) Vitals: 01/27/18 0700 01/28/18 0400 01/29/18 0600 Weight: 76.4 kg (168 lb 6.9 oz) 74.6 kg (164 lb 7.4 oz) 76.6 kg (168 lb 14 oz) Intake/Output Summary: (Last 24 hours) Intake/Output Summary (Last 24 hours) at 01/29/2018 1209 Last data filed at 01/29/2018 1000 Gross per 24 hour Intake 1700 ml Output 2270 ml Net -570 ml Physical Exam: Physical Exam General appearance: alert, no acute distress Head: Normocephalic, without obvious abnormality Eyes: conjunctivae/corneas clear. PERRL Mouth/throat: Moist mucous membranes, Neck: supple, symmetrical, trachea midline Lungs: clear to auscultation, diminished RL, non labored on 2L NC. R sided chest tube x [address], both with serous/serosang drainage in the chamber. One with intermittent air leak which has been present and stable since immediately post op Heart: regular rate and rhythm, S1, S2 normal Abdomen: soft, non-tender. Bowel sounds normal. Extremities: extremities normal, atraumatic Neurologic: Grossly normal Peripheral pulses: 2+ and symmetric Cap Refill: <3 sec Skin: Skin color, texture, turgor normal. No rashes or lesions LABS: Recent Labs 01/26/18 1420 01/27/18 0352 01/28/18 0310 01/29/18 0451 NA 136* 138 137 139 K 4.8 4.5 4.2 3.4* CL 104 106 106 107 CO2 24 25 26 26 GAP 8 7 5 6 BUN 18 20 22 21 CR 2.08* 2.10* 2.36* 1.78* GLU 100 89 100 117* CA 8.0* 8.0* 8.2* 7.5* ALBUMIN -- -- 2.0* -- MG -- 2.3 2.3 2.1 PO4 -- 5.1* 5.4* 4.5 Recent Labs 01/27/18 0352 01/28/18 0310 01/29/18 0730 WBC 16.6* 15.7* 13.4* HGB 8.8* 8.9* 8.6* HCT 27.0* 26.7* 26.8* PLTCT 408* 395 338 AST -- 16 -- ALT -- 12 -- ALKPHOS -- 94 -- Estimated Creatinine Clearance: 46.6 mL/min (A) (based on SCr of 1.78 mg/dL (H)) . Vitals: 01/27/18 0700 01/28/18 0400 01/29/18 0600 Weight: 76.4 kg (168 lb 6.9 oz) 74.6 kg (164 lb 7.4 oz) 76.6 kg (168 lb 14 oz) No results for input(s): PHART, PO2ART in the last 72 hours. Invalid input(s): PC02A 01/21 blood cx NGTD Radiology and Other Diagnostic Procedures Review: Reviewed NESS TRANSFORMATION CONSULTANT * India Johnson, OT - 01/28/2018 11:10 AM BUSINESS TRANSFORMATION CONSULTANT OCCUPATIONAL THERAPY NO TREATMENT NOTE The patient was not seen due to: Pt off unit to OR at this time. OT to follow up as able for therapy. Therapist: India Johnson OTR/L Date: 01/28/2018 NESS TRANSFORMATION CONSULTANT * Haeth Meadows, PT - 01/28/2018 10:00 AM BUSINESS TRANSFORMATION CONSULTANT PHYSICAL THERAPY NOTE Patient was unavailable for physical therapy. Patient off unit to OR with CTS. Physical therapy will continue to follow and provide intervention as indicated. Therapist: Heath Meadows PT Date: 01/28/2018 NESS TRANSFORMATION CONSULTANT * Fco Messina MD - 01/28/2018 8:18 AM BUSINESS TRANSFORMATION CONSULTANT Infectious Diseases Progress note Today's Date: 01/28/2018 Admission Date: 01/21/2018 Reason for this consultation: I was asked to provide my opinion and recommendations regarding this 62-year-old man with worsening vascular status extensive emphysema and new pneumothorax on the right side I reviewed the patient record there were extensive and summarized them, I personally viewed the CT scan of the chest from 01/21/2018 showed extensive infiltrate in the right lung and loculated pneumothorax possible necrosis of the lung. Assessment: Invasive pulmonary aspergillosis in COPD patient with right-sided extensive disease -Worsening resp failure -Fever/leukocytosis 01/21 -Ct chest 01/21/2018: Development of a moderate [...] - Fungitell 38, Galactomannan 0.052. 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 Not detected on first BAL, virus detected on 12/21/17 BAL. Significant debility P. mirabilis pneumonia 01/16/18 DEONTE 01/26 Recommendations: Continue Zosyn, Continue cresemba Monitor leukocytosis, creat, slightly up Follow on CT surgery recs , noted plan for thoracoscopy and debridement today Monitor labs for toxicity Patient is severely ill with resp failure, severe pneumonia, empyema Needing ICU monitoring Personally viewed CXR 01/28 about the same extensive infiltrates on R, prognosis remains very poor History of Present Illness Nancy Trujillo is a 62 y.o. Man Breathing is better 3 L of O2 Chest pain on R is fairly controlled with pain meds No diarrhea, no new rash Mild nausea intermittent, none today, ate ok yesterday cough about the same, slightly productive Abx Extensive history vanc 01/22 to 05/01 Zosyn 01/22 cresemba micafungin stop 01/23 valcyte stop 01/26 Estimated Creatinine Clearance: 34.2 mL/min (A) (based on SCr of 2.36 mg/dL (H)) . Medications Scheduled Meds: acetylcysteine (MUCOMYST) 200 mg/mL (20 %) nebulizer solution 3 mL 3 mL Inhalation Q12H albuterol 0.5% (PROVENTIL; VENTOLIN) nebulizer solution 2.5 mg 2.5 mg Inhalation BID & PRN ascorbic acid (VITAMIN C) tablet 500 mg 500 mg Oral QDAY cholecalciferol (VITAMIN D-3) tablet 400 Units 400 Units Oral QDAY docusate (COLACE) capsule 200 mg 200 mg Oral BID fluticasone (FLONASE) nasal spray 2 spray 2 [...] (SENOKOT) tablet 2 tablet 2 tablet Oral BID sodium chloride PF 0.9% flush [...] Respiratory Meds:acetaminophen Q4H PRN, alteplase BID PRN, HYDROcodone/ acetaminophen Q6H PRN, magnesium sulfate PRN AND [] Magnesium PRN AND Notify Physician Ongoing, potassium chloride SR PRN OR potassium chloride PRN Physical Examination Vital Signs: Last Vital Signs: 24 Hour Range BP: 113/64 (01/28 700) Temp: 36.9 C (98.5 F) (01/28 0400) Pulse: 94 (01/28 700) Respirations: 25 PER MINUTE (01/28 700) SpO2: 98 % (01/28 700) O2 Delivery: High Flow Nasal Cannula (01/28 700) SpO2 Pulse: 95 (01/28 700) BP: (107-139)/(64-109) Temp: [36.7 C (98 F)-36.9 C (98.5 F)] Pulse: [84-101] Respirations: [17 PER MINUTE-28 PER MINUTE] SpO2: [95 %-99 %] O2 Delivery: High Flow Nasal Cannula General: Alert, cooperative, in mild distress Head: Normocephalic, without obvious abnormality, atraumatic Throat: Lips, mucosa and tongue normal. no thrush Lungs: improved BS on R, extensive ronchi, chest tube with cloudy fluid, decrease output Heart: Regular rate and rhythm Abdomen: Soft, slightly tender in the right upper quadrant Extremities: Extremities normal, atraumatic, no rash, no erythema, there is a minimal superficial ulcer on the medial left thigh, not infected some bruises Skin: Skin color, texture, turgor normal. Neurologic: Diffuse weakness Lab Review Hematology Recent Labs 01/26/18 0430 01/27/18 0352 01/28/18 0310 WBC 17.0* 16.6* 15.7* HGB 9.4* 8.8* 8.9* HCT 29.2* 27.0* 26.7* PLTCT 422* 408* 395 Chemistry Recent Labs 01/26/18 0430 01/26/18 1420 01/27/18 0352 01/28/18 0310 NA 135* 136* 138 137 K 4.8 4.8 4.5 4.2 CL 103 104 106 106 CO2 26 24 25 26 BUN 15 18 20 22 CR 1.77* 2.08* 2.10* 2.36* GFR 39* 33* 32* 28* GLU 104* 100 89 100 CA 8.0* 8.0* 8.0* 8.2* PO4 4.2 -- 5.1* 5.4* ALBUMIN 2.1* -- -- 2.0* ALKPHOS 96 -- -- 94 AST 33 -- -- 16 ALT 22 -- -- 12 TOTBILI 0.2* -- -- 0.3 Microbiology, Radiology and other Diagnostics Review Microbiology data reviewed. Pertinent radiology images viewed. Impression: Fco Messina MD Pager [phone] Infectious Diseases Faculty NESS TRANSFORMATION CONSULTANT * Bee Nascimento RN - 01/28/2018 7:55 AM BUSINESS TRANSFORMATION CONSULTANT . Heart Failure Nursing Progress Note Admission Date: 01/21/2018 LOS: 7 days Admission Weight: 73.7 kg (162 lb 7.7 oz) Most recent weights (inpatient): Vitals: 01/26/18 0400 01/27/18 0700 01/28/18 0400 Weight: 75 kg (165 lb 5.5 oz) 76.4 kg (168 lb 6.9 oz) 74.6 kg (164 lb 7.4 oz) Weight change from previous day: -4 lbs Fluid restriction ordered: 1L Intake/Output Summary: (Last 24 hours) Intake/Output Summary (Last 24 hours) at 01/28/2018 0755 Last data filed at 01/28/2018 0600 Gross per 24 hour Intake 1391 ml Output 2075 ml Net -684 ml Is patient incontinent No Anticipated discharge date: [facility] Discharge goals: D/C on RA. Daily Assessment of Patient Stated Goals: Short Term Goal Identified by patient (Short Term=during hospitalization): No surgical complications today. NESS TRANSFORMATION CONSULTANT * Bee Nascimento RN - 01/28/2018 7:47 AM BUSINESS TRANSFORMATION CONSULTANT 0730: Assumed care of patient at this time, bedside safety check completed, pt A &O x4. 0800: Assessment completed per ICU flowsheet, VSS per pt trend, pt A&O x4, reporting pain at chest tube site. No gtts infusing. Pt updated on plan of care for this shift, no questions or concerns noted at this time. 0900: Pt to OR with AUTOMOTIVE BUYER x2 and attached to portable suction at -20. 1315: Pt returned from OR on 2L NC, VSS per pt trend, assessment completed per ICU Flowsheet, MD notified of pain. 1600: Assessment completed per ICU Flowsheet, VSS per pt trend, A&O x4, pt on VISUAL EFFECTS ARTIST for pain, no other gtts infusing. NESS TRANSFORMATION CONSULTANT * Henry Flores MD - 01/28/2018 6:51 AM BUSINESS TRANSFORMATION CONSULTANT Nancy Trujillo Today's Date: 01/28/2018 Admission Date: 01/21/2018 LOS: 7 days Assessment/Plan: Active Problems: CAD (coronary artery disease) Paroxysmal 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 (HCC) S/P ablation of 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 Pneumonia Cytomegalovirus (CMV) viremia (HCC) Loculated pleural effusion Acute on chronic respiratory failure with hypoxia and hypercapnia (HCC) Sepsis (HCC) Pulmonary aspergillosis invasive type (HCC) COPD, severe (HCC) Secondary spontaneous pneumothorax Legionella pneumonia (HCC) Shock (HCC) Atrial fibrillation with RVR (HCC) Empyema of right pleural space (HCC) Hospital course: Nancy Trujillo is a 62 y/o male w/ PMH significant forHTN, HLD, CADs/p PCI 2012, CHF,tobacco use,COPD on 2-3 L/NC Q HS, afibw/ recent prolonged hospitalization for legionella &aspergillosis pneumonia as well as +CMV/HSV in BAL c/b inability to wean from the vent requiring trach/PEG (both tubes now removed) &R chest tube placement&PEA arrest from mucus plug. He was discharged to rehab 12/31. Admitted to the floor from rehab on 01/21w/worsening tachycardia, leukocytosis &fever. CT chest showed new loculated R hydropneumothorax &consolidation.Transferred to ICU for chest tube placement &increasing O2 requirements.Underwent pigtail placement x 2 to R anterior space &R posterior space, started TPA/dornase.Repeat CT chest 01/25 showedresolution of the anterior hydropneumothorax. There has been improvement in the posterior lateral pleural effusion but despite TPA and dornase the complex pleural space persists. Removed anterior CT 01/25.CTS following, to OR 01/28 for VATS, decortication.IDfollowing; abxw/ zosyn, cresemba. NEURO - Alert and oriented PULM COPD Acute on Chronic Hypoxic Respiratory Failure InvasivePulmonaryAspergillosis LegionellaPneumonia P.MirabilisPneumonia R LoculatedHydropneumothorax - Baseline O2 2-3 L/NC Q HS - Had prolongedrecenthospitalization for legionella pneumonia, mirabilis pneumonia &necrotizing aspergillosis; also possible aspiration pneumonia -Had MAC in sputum cx + CMV & HSV in BAL -S/p chest tube 12/16 -12/29; fluid exudative, cultures negative - Had finished treatment w/zosyn,linezolid & micafungin; was receiving micafungin, cresemba,&valganciclovir -Developedfever&leukocytosis 01/21 - CT chest 01/21:development of moderate loculated right pneumothorax w/ anterior &apical component, persistent extensive right lung consolidation c/w pneumonia, slight improvement in mild patchy &nodular left lung opacities - Tx to ICU01/22for chest tube placement & increasing O2 requirements on the floor - PlacedR sided chest tube x 2 to anterior space & posterior space & started TPA/dornaseto posterior tube - Pleural fluid cell counts: WBC 12,995; neutrophil predominate, exudative fluid , cx NGTD - CT chest 01/25: significant overall improvement in the moderate loculated hydropneumothorax after placement of 2 pleural drains; persistent extensive right lung consolidation compatible with pneumonia and/or atelectasis; stable patchy and nodular left lung opacities with a small left pleural effusion - Anterior CT dc'd 01/25 - Posterior CT -- completed TPA/dornase on 01/25;640 mL output - Currently tolerating HFNC w/ SpO2 90s PLAN -Addedanoro,acapella, mucomyst nebs &albuterol prior to mucomyst -CTS following -->surgery 01/28; -Continue zosyn, cresemba -Dc'd spiriva/symbicort w/ recurrent respiratory infections; continue mucinex , flonase - Pain control r/t chest tubes w/ norco; toradol dc'd w/ new DEONTE CV Hx Paroxysmal Afib Shock(resolved) - S/p ablation 2013 - Had RVR103/25-01/23w/ associated hypotension --> started amiodarone gtt & phenyl gtt - Shock likely 2/2 RVR- phenyl weaned off 01/23 afternoon - Lactate negative - Dig level 1.0 (12/21) --> 2.1 (01/27) -> 1.6 (01/28) - HR 90s PLAN -ContinuePTA metoprolol 12.5 mg BID - Hold digoxin; repeat dig level Wednesday -Continue to hold xarelto w/ CT in place & possible procedures in near future CAD s/p PCIto RCA 2012 HTN/HLD - Echo 11/22: LVEF 70%, trace TR, RV normal, trace effusion - 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,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 PLAN -Continue .5 mg BID - HoldingPTAlasix (60 mg BID) AAA -CT abd/hicjcv55/5/18: fusiform infrarenal abdominal aortic aneurysm measuring up to 4.9 cm in maximum diameter -Will need monitoringoutpatient GI - BM 01/27 - Regular diet - Colace/senna/miralax GERD -Continueprotonix - Zofran w/ meals RENAL DEONTE - Cr 0.41 on 01/25 --> 1.77 on 01/26 --> 2.36 this AM - K+ 4.2, CO2 26, BUN 22 - FENa 1.27%, FEUrea 57.2% - Eosinophil stain negative - I/O:1.4/2.1 PLAN - Continue to monitor - Avoid nephrotoxins -- vancomycin dc'd 01/25, toradol and valganciclovir dc'd 01/26 ID InvasivePulmonaryAspergillosis LegionellaPneumonia Possible Aspiration Pneumonia P.MirabilisPneumonia CMV Viremia - Recent prolonged hospitalization for legionella & aspergillosis pneumonia as well as +CMV/HSV in BAL - Also w/ MAC in sputum 12/20/17& proteus in sputum 01/16/18 - WBC15.7,afebrile - CT chest as above w/ pneumonia - Blood cx 01/21: no growth - Fungal blood cx 01/21:NGTD - Sputum cx 01/22:contamination - does not meet criteria for culture - Pleural fluid 01/22: WBC 12,995 neutrophil predominate, cx no growth - Pleural fluidfungal cxNGTD, AFB pending PLAN -Continue zosyn and cresemba - ID following - follow cultures form OR today HEME Thrombocytosis - May be reactive 2/2 infection - Hgb8.9, [id number] - resume PPx lovenox Code Status: Full Dispo: Continue ICU care, monitor post OR Jovanna Emilijesse TOBIAS Pulmonary Critical Care Pager: [phone] team pager [phone] ATTESTATION I personally interviewed and examined the patient. I have reviewed the history , physical, impression and plan outlined by the Nurse Practitioner. The patient is resting in bed after he is thoracic surgery. Does have some postsurgical pain. Otherwise alert and oriented. Continue with cough productive of sputum but this is improving. No fevers or chills. On examination: Vitals and I/O's reviewed Neuro-alert and oriented Chest-bilateral breath sounds with 2 chest tubes on the right. CV-regular rhythm and rate Abd-flat soft nontender Ext- no cyanosis or clubbing Skin- no rashes I personally reviewed pertinent labs and images My impression/plan: 1Acute on chronic hypoxemic respiratory failure secondary to empyema on the right as well as hydropneumothorax anteriorly.Completed 6 doses of TPA and dornase. Repeat CT scan of the chest reveals resolution of the anterior hydropneumothorax. Continue posterior chest tube to drainage and discontinued anterior chest tube. Status post thoracic surgery and decortication today. Postop film reveals lung has reexpanded. Continue chest tubes to suction and will follow instructions from thoracic surgery. 2. Severe sepsis secondary to complicated right lower lobe pneumonia likely bacterial on fungal with empyema.Continue Zosyn and cresemba. 3. Severe obstructive lung disease with emphysema.Continue Anoro. Patient off inhaled corticosteroid so as not to complicate her increased risk of pneumonia. 4. A-fib with RVRcontinue beta-manjit, held dig with renal dysfunction 5. Acute renal insufficiency most likely ATN with minimal elevation in creatinine today versus yesterday. Avoid nephrotoxins. Staff name: Henry Flores MD Date: 01/28/2018 Subjective: Nancy Trujillo is a 62 y.o. who is resting in bed this AM. Talking about last [employer] game. No other specific complaints today. Is looking forward to OR today. ROS: Constitutional: negative for fevers Eyes: negative for visual disturbance Ears, nose, mouth, throat, and face: negative for nasal congestion and hoarseness Respiratory:+ for cough, R sided pleuritic pain Cardiovascular: negative for chest pain, palpitations Gastrointestinal: negative for nausea, vomiting Genitourinary:negative for dysuria Hematologic/lymphatic: negative for bleeding Neurological: negative for headaches and dizziness Objective: Medications: Scheduled Meds: acetylcysteine (MUCOMYST) 200 mg/mL (20 %) nebulizer solution 3 mL 3 mL Inhalation Q12H albuterol 0.5% (PROVENTIL; VENTOLIN) nebulizer solution 2.5 mg 2.5 mg Inhalation BID & PRN ascorbic acid (VITAMIN C) tablet 500 mg 500 mg Oral QDAY cholecalciferol (VITAMIN D-3) tablet 400 Units 400 Units Oral QDAY docusate (COLACE) capsule 200 mg 200 mg Oral BID fluticasone (FLONASE) nasal spray 2 spray 2 [...] (SENOKOT) tablet 2 tablet 2 tablet Oral BID sodium chloride PF 0.9% flush [...] Respiratory Meds:acetaminophen Q4H PRN, alteplase BID PRN, HYDROcodone/ acetaminophen Q6H PRN, magnesium sulfate PRN AND Magnesium PRN AND Notify Physician Ongoing, potassium chloride SR PRN OR potassium chloride PRN Vital Signs: Last Filed Vital Signs: 24 Hour Range BP: 107/65 (01/28 0500) Temp: 36.9 C (98.5 F) (01/28 0400) Pulse: 96 (01/28 0500) Respirations: 26 PER MINUTE (01/28 050) SpO2: 98 % (01/28 050) O2 Delivery: High Flow Nasal Cannula (01/28 050) SpO2 Pulse: 96 (01/28 0500) BP: (107-139)/(65-109) Temp: [36.7 C (98 F)-36.9 C (98.5 F)] Pulse: [84-101] Respirations: [17 PER MINUTE-28 PER MINUTE] SpO2: [95 %-99 %] O2 Delivery: High Flow Nasal Cannula Intensity Pain Scale (Self Report): 2 (01/27/181999) Vitals: 01/26/18 0400 01/27/18 0700 01/28/18 0400 Weight: 75 kg (165 lb 5.5 oz) 76.4 kg (168 lb 6.9 oz) 74.6 kg (164 lb 7.4 oz) Intake/Output Summary: (Last 24 hours) Intake/Output Summary (Last 24 hours) at 01/28/2018 0651 Last data filed at 01/28/2018 0400 Gross per 24 hour Intake 1391 ml Output 1775 ml Net -384 ml Physical Exam: Physical Exam General appearance: alert, no acute distress Head: Normocephalic, without obvious abnormality Eyes: conjunctivae/corneas clear. PERRL Mouth/throat: Moist mucous membranes, Neck: supple, symmetrical, trachea midline Lungs: clear to auscultation, diminished RL, non labored on 2L NC. R sided chest tube in place Heart: regular rate and rhythm, S1, S2 normal Abdomen: soft, non-tender. Bowel sounds normal. Extremities: extremities normal, atraumatic Neurologic: Grossly normal Peripheral pulses: 2+ and symmetric Cap Refill: <3 sec Skin: Skin color, texture, turgor normal. No rashes or lesions LABS: Recent Labs 01/26/18 0430 01/26/18 1420 01/27/18 0352 01/28/18 0310 NA 135* 136* 138 137 K 4.8 4.8 4.5 4.2 CL 103 104 106 106 CO2 26 24 25 26 GAP 6 8 7 5 BUN 15 18 20 22 CR 1.77* 2.08* 2.10* 2.36* GLU 104* 100 89 100 CA 8.0* 8.0* 8.0* 8.2* ALBUMIN 2.1* -- -- 2.0* MG 2.4 -- 2.3 2.3 PO4 4.2 -- 5.1* 5.4* Recent Labs 01/26/18 0430 01/27/18 0352 01/28/18 0310 WBC 17.0* 16.6* 15.7* HGB 9.4* 8.8* 8.9* HCT 29.2* 27.0* 26.7* PLTCT 422* 408* 395 AST 33 -- 16 ALT 22 -- 12 ALKPHOS 96 -- 94 Estimated Creatinine Clearance: 34.2 mL/min (A) (based on SCr of 2.36 mg/dL (H)) . Vitals: 01/26/18 0400 01/27/18 0700 01/28/18 0400 Weight: 75 kg (165 lb 5.5 oz) 76.4 kg (168 lb 6.9 oz) 74.6 kg (164 lb 7.4 oz) No results for input(s): PHART, PO2ART in the last 72 hours. Invalid input(s): PC02A 01/21 blood cx NGTD Radiology and Other Diagnostic Procedures Review: Reviewed NESS TRANSFORMATION CONSULTANT * Sandra Frances RN - 01/28/2018 5:59 AM BUSINESS TRANSFORMATION CONSULTANT Heart Failure Nursing Progress Note Admission Date: 01/21/2018 LOS: 7 days Admission Weight: 73.7 kg (162 lb 7.7 oz) Most recent weights (inpatient): Vitals: 01/26/18 0400 01/27/18 0700 01/28/18 0400 Weight: 75 kg (165 lb 5.5 oz) 76.4 kg (168 lb 6.9 oz) 74.6 kg (164 lb 7.4 oz) Weight change from previous day:-1.8kg Fluid restriction ordered: 1L Intake/Output Summary: (Last 24 hours) Intake/Output Summary (Last 24 hours) at 01/28/2018 0600 Last data filed at 01/28/2018 0400 Gross per 24 hour Intake 1391 ml Output 1775 ml Net -384 ml Is patient incontinent No Anticipated discharge date: TBD Discharge goals: Improved respiratory status, able to care for chest tube, WBC returns to normal limits. Daily Assessment of Patient Stated Goals: Short Term Goal Identified by patient (Short Term=during hospitalization): Go to OR for debridement and CT placement. NESS TRANSFORMATION CONSULTANT * Sandra Frances RN - 01/28/2018 12:30 AM BUSINESS TRANSFORMATION CONSULTANT 1930 - Assumed care. VSS per pt trends. Complains of pain at chest tube site, does not any pain medication at this time. Family at bedside. Call light within reach. NESS TRANSFORMATION CONSULTANT * Nghia Porras RN - 01/27/2018 6:26 PM BUSINESS TRANSFORMATION CONSULTANT 1530 - Assumed pt. care at this time, bedside safety check performed, and plan of care reviewed. 1600 - Assessment complete, see ICU flowsheet for details. VS per pt. trends. Will continue to monitor. NESS TRANSFORMATION CONSULTANT * Ismael Mendez MD - 01/27/2018 3:40 PM BUSINESS TRANSFORMATION CONSULTANT CARDIOTHORACIC SURGERY DAILY PROGRESS NOTE SUBJECTIVE: Overnight events: no major events. Ready for surgery tomorrow. On 3L NC. ASSESSMENT: Active Problems: CAD (coronary artery disease) Paroxysmal 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 (HCC) S/P ablation of 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 Pneumonia Cytomegalovirus (CMV) viremia (HCC) Loculated pleural effusion Acute on chronic respiratory failure with hypoxia and hypercapnia (HCC) Sepsis (HCC) Pulmonary aspergillosis invasive type (HCC) COPD, severe (HCC) Secondary spontaneous pneumothorax Legionella pneumonia (HCC) Shock (HCC) Atrial fibrillation with RVR (HCC) Empyema of right pleural space (HCC) PLAN: -NPO at midnight -plan for R thoracoscopic surgery with debridement tomorrow -risks, benefits and alteratives were discussed with the patient and he agreed to proceed. Ismael Mendez MD [id number] OBJECTIVE: Vitals: 01/27/18 1200 01/27/18 1300 01/27/18 1400 01/27/18 1500 BP: 117/74 129/83 130/69 139/85 Pulse: 87 84 90 88 Temp: SpO2: 97% 98% 98% 97% Weight: Height: Physical Exam: General: A&O x 3 Cardiovascular: RRR no rub or murmur Respiratory: LS CTA jv GI: soft, NT, +BS Extremities: No Edema Incisions: clean, dry, intact Chest Tubes OUTPUT/24 HOURSAIR LEAK PRESENT Chest [id number] no LABS: Lab Results Component Value Date/Time WBC 16.6 (H) 01/27/2018 03:52 AM HGB 8.8 (L) 01/27/2018 03:52 AM HCT 27.0 (L) 01/27/2018 03:52 AM PLTCT 408 (H) 01/27/2018 03:52 AM Lab Results Component Value Date/Time NA 138 01/27/2018 03:52 AM K 4.5 01/27/2018 03:52 AM CL 106 01/27/2018 03:52 AM CO2 25 01/27/2018 03:52 AM BUN 20 01/27/2018 03:52 AM CR 2.10 (H) 01/27/2018 03:52 AM GLU 89 01/27/2018 03:52 AM Lab Results Component Value Date MG 2.3 01/27/2018 Lab Results Component Value Date PO4 5.1 (H) 01/27/2018 Lab Results Component Value Date GLUPOC 141 (H) 12/17/2017 GLUPOC 76 12/16/2017 GLUPOC 116 (H) 11/23/2017 GLUPOC 109 (H) 11/22/2017 GLUPOC 134 (H) 11/22/2017 GLUPOC 112 (H) 11/22/2017 GLUPOC 134 (H) 11/22/2017 GLUPOC 137 (H) 11/21/2017 Ismael Mendez MD [id number] NESS TRANSFORMATION CONSULTANT * Magalie Andino PHARMD - 01/27/2018 2:40 PM BUSINESS TRANSFORMATION CONSULTANT Nancy Trujillo's inpatient medication orders were reviewed on 01/27/2018 prior to his CTS procedure scheduled for 01/28/18. Medications that should not be given on the morning of surgery have been documented as "planned hold" on the APR. All other medications should be given prior to surgery as scheduled. Magalie Andino PHARMD NESS TRANSFORMATION CONSULTANT * Fco Messina MD - 01/27/2018 10:10 AM BUSINESS TRANSFORMATION CONSULTANT Infectious Diseases Progress note Today's Date: 01/27/2018 Admission Date: 01/21/2018 Reason for this consultation: I was asked to provide my opinion and recommendations regarding this 62-year-old man with worsening vascular status extensive emphysema and new pneumothorax on the right side I reviewed the patient record there were extensive and summarized them, I personally viewed the CT scan of the chest from 01/21/2018 showed extensive infiltrate in the right lung and loculated pneumothorax possible necrosis of the lung. Assessment: Invasive pulmonary aspergillosis in COPD patient with right-sided extensive disease -Worsening resp failure -Fever/leukocytosis 01/21 -Ct chest 01/21/2018: Development of a moderate [...] - Fungitell 38, Galactomannan 0.052. 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 Not detected on first BAL, virus detected on 12/21/17 BAL. Significant debility P. mirabilis pneumonia 01/16/18 DEONTE 01/26 Recommendations: Continue Zosyn, Continue cresemba Monitor leukocytosis, creat Follow on CT surgery recs , noted their plan Monitor labs for toxicity Patient is severely ill with resp failure, severe pneumonia, empyema Needing ICU monitoring Personally viewed CXR 01/27 about the same extensive infiltrates on R, prognosis remains very poor History of Present Illness Nancy Trujillo is a 62 y.o. Nancy Trujillo is a 62 y.o. male Breathing is better 3 L of O2 Chest pain on R is fairly controlled No diarrhea, no new rash Mild nausea intermittent cough about the same, slightly productive Abx Extensive history vanc 01/22 to 05/01 Zosyn 01/22 cresemba micafungin stop 01/23 valcyte stop 01/26 Estimated Creatinine Clearance: 39.4 mL/min (A) (based on SCr of 2.1 mg/dL (H)). Medications Scheduled Meds: acetylcysteine (MUCOMYST) 200 mg/mL (20 %) nebulizer solution 3 mL 3 mL Inhalation Q12H albuterol 0.5% (PROVENTIL; VENTOLIN) nebulizer solution 2.5 mg 2.5 mg Inhalation BID & PRN ascorbic acid (VITAMIN C) tablet 500 mg 500 mg Oral QDAY cholecalciferol (VITAMIN D-3) tablet 400 Units 400 Units Oral QDAY docusate (COLACE) capsule 200 mg 200 mg Oral BID fluticasone (FLONASE) nasal spray 2 spray 2 [...] (SENOKOT) tablet 2 tablet 2 tablet Oral BID sodium chloride PF 0.9% flush [...] Respiratory Meds:acetaminophen Q4H PRN, alteplase BID PRN, HYDROcodone/ acetaminophen Q6H PRN, magnesium sulfate PRN AND Magnesium PRN AND Notify Physician Ongoing, potassium chloride SR PRN OR potassium chloride PRN Physical Examination Vital Signs: Last Vital Signs: 24 Hour Range BP: 133/88 (01/27 0800) Temp: 36.7 C (98 F) (01/27 0800) Pulse: 90 (01/27 0000) Respirations: 18 PER MINUTE (01/26 2137) SpO2: 96 % (01/27 0800) O2 Delivery: High Flow Nasal Cannula (01/27 0400) SpO2 Pulse: 91 (01/27 08) BP: (112-133)/(80-88) Temp: [36.4 C (97.5 F)-36.7 C (98 F)] Pulse: [85-92] Respirations: [18 PER MINUTE-22 PER MINUTE] SpO2: [96 %-97 %] O2 Delivery: High Flow Nasal Cannula General: Alert, cooperative, in mild distress Head: Normocephalic, without obvious abnormality, atraumatic Throat: Lips, mucosa and tongue normal. no thrush Lungs: improved BS on R, chest tube with cloudy fluid, decrease output Heart: Regular rate and rhythm Abdomen: Soft, slightly tender in the right upper quadrant Extremities: Extremities normal, atraumatic, no rash, no erythema, there is a minimal superficial ulcer on the medial left thigh, not infected some bruises Skin: Skin color, texture, turgor normal. Neurologic: Diffuse weakness Lab Review Hematology Recent Labs 01/25/188 01/26/18 0430 01/27/18 0352 WBC 12.9* 17.0* 16.6* HGB 8.9* 9.4* 8.8* HCT 28.1* 29.2* 27.0* PLTCT 428* 422* 408* Chemistry Recent Labs 01/25/18 0338 01/26/18 0430 01/26/18 1420 01/27/18 0352 NA 134* 135* 136* 138 K 4.5 4.8 4.8 4.5 CL 103 103 104 106 CO2 29 26 24 25 BUN 6* 15 18 20 CR 0.41 1.77* 2.08* 2.10* GFR >60 39* 33* 32* GLU 106* 104* 100 89 CA 8.0* 8.0* 8.0* 8.0* PO4 3.2 4.2 -- 5.1* ALBUMIN -- 2.1* -- -- ALKPHOS -- 96 -- -- AST -- 33 -- -- ALT -- 22 -- -- TOTBILI -- 0.2* -- -- Microbiology, Radiology and other Diagnostics Review Microbiology data reviewed. Pertinent radiology images viewed. Impression: Fco Messina MD Pager [phone] Infectious Diseases Faculty NESS TRANSFORMATION CONSULTANT * Heath Meadows, PT - 01/27/2018 10:00 AM BUSINESS TRANSFORMATION CONSULTANT PHYSICAL THERAPY PROGRESS NOTE MOBILITY: Mobility Progressive Mobility Level: Walk in room Distance Walked (feet): 12 ft Level of Assistance: Assist X1 Assistive Device: Walker Time Tolerated: 0-10 minutes Activity Limited By: Shortness of air SUBJECTIVE: Subjective Significant hospital events: PMHx includes: HTN, HLD, CAD s/p PCI 2012, CHF, tobacco use, COPD on 2-3L qHS, Afib w/ recent prolonged hospitalization for legionella & aspergillosis pneumonia as well as +CMV/HSV in BAL c/b inability to wean from the vent requiring trach/PEG (both tubes now removed) & R chest tube placement & PEA arrest from mucus plug. Discharged to rehab 12/31. Admitted to the floor from rehab on 01/21 w/ worsening tachycardia, leukocytosis & fever. CT chest showed new loculated R hydropneumothorax & consolidation. Transferred to ICU for chest tube placement & increasing O2 requirements. Underwent pigtail placement x2 to R anterior space & R posterior space, started TPA/dornase. Anterior chest tube discontinued 01/25, posterior chest tube remains in place, CTS following. Mental / Cognitive Status: Alert;Oriented;Cooperative Persons Present: Son Pain: Patient complains of pain;Patient does not rate pain Pain Location: Right(posterior chest tube site) Pain Interventions: Patient agrees to participate in therapy Comments: 3L 02 NC at rest Ambulation Assist: Independent Mobility in Community without Device(prior to hospital admisison this fall, since required assist) Patient Owned Equipment: (will need to confirm has his own 4 wheeled walker) Home Situation: Lives with Family Type of Home: House Entry Stairs: 3-5 Stairs(5, family arranging for handrail to be added this week) In-Home Stairs: Able to Live on One Level(family arranging for addition of shower to main level bathroom) Patient states he feels more fatigued today. BED MOBILITY/TRANSFERS: Bed Mobility/Transfers Bed Mobility: Supine to Sit: Minimal Assist;Assist with Trunk;Head of Bed Elevated Transfer Type: Sit to Stand Transfer: Assistance Level: From;Bed;Minimal Assist Transfer: Assistive Device: Roller Walker Transfers: Type Of Assistance: Requires Extra Time End Of Activity Status: Up in Chair;Nursing Notified;Instructed Patient to Request Assist with Mobility;Instructed Patient to Use Call Light GAIT: Gait Gait Distance: 12 feet Gait: Assistance Level: Minimal Assist;Management of Lines Gait: Assistive Device: Roller Walker Gait: Descriptors: Pace: Slow Activity Limited By: Complaint of Fatigue;SOA;Lines/Leads ASSESSMENT/PROGRESS: Assessment/Progress Impaired Mobility Due To: Decreased Strength;Impaired Balance;Decreased Activity Tolerance;Deconditioning;Medical Status Limitation Assessment/Progress: Should Improve w/ Continued PT AM-PAC 6 Clicks Basic Mobility Inpatient Turning from your back to your side while in a flat bed without using bed rails : None Moving from lying on your back to sitting on the side of a flatbed without using bedrails : A Little Moving to and from a bed to a chair (including a wheelchair): A Little Standing up from a chair using your arms (e.g. wheelchair, or bedside chair): A Little To walk in hospital room: A Little Climbing 3-5 steps with a railing: A Lot Raw Score: 18 Standardized (T-scale) Score: 41.05 Basic Mobility CMS 0-100%: 40.47 CMS G Code Modifier for Basic Mobility: CK GOALS: Goals Goal Formulation: With Patient Pt Will Go Supine To/From Sit: w/ Stand By Assist Pt Will Transfer Sit to Stand: w/ Stand By Assist Pt Will Ambulate: 31-50 Feet, w/ Walker, w/ Minimal Assist Pt Will Go Up / Down Stairs: (will establish at later date as appropriate) PLAN: Plan Treatment Interventions: Mobility Training;Strengthening;Balance Activities; Endurance Training Plan Frequency: 5 Days per Week PT Plan for Next Visit: increase standing balance/strength exercises, progress gait as appropriate RECOMMENDATIONS: PT Discharge Recommendations PT Discharge Recommendations: Inpatient Setting(possible return to rehab) Recommend ongoing assistance for: Transfers;Bed mobility;Ambulation;Stairs Therapist: Heath Meadows, PT Date: 01/27/2018 NESS TRANSFORMATION CONSULTANT * Nataly Jordan RN - 01/27/2018 7:21 AM BUSINESS TRANSFORMATION CONSULTANT Heart Failure Nursing Progress Note Admission Date: 01/21/2018 LOS: 6 days Admission Weight: 73.7 kg (162 lb 7.7 oz) Most recent weights (inpatient): Vitals: 01/25/18 0600 01/26/18 0400 01/27/18 0700 Weight: 74.3 kg (163 lb 12.8 oz) 75 kg (165 lb 5.5 oz) 76.4 kg (168 lb 6.9 oz) Weight change from previous day: +1.4 kg Fluid restriction ordered: 1L Intake/Output Summary: (Last 24 hours) Intake/Output Summary (Last 24 hours) at 01/27/2018 0724 Last data filed at 01/27/2018 0500 Gross per 24 hour Intake 1616.67 ml Output 1985 ml Net -368.33 ml Is patient incontinent No Anticipated discharge date: TBD Discharge goals: Manage pain Daily Assessment of Patient Stated Goals: Short Term Goal Identified by patient (Short Term=during hospitalization): Get some sleep NESS TRANSFORMATION CONSULTANT * Henry Flores MD - 01/27/2018 6:06 AM BUSINESS TRANSFORMATION CONSULTANT Pulmonary / Critical Care Progress Note Nancy Trujillo Today's Date: 01/27/2018 Admission Date: 01/21/2018 LOS: 6 days Active Problems: CAD (coronary artery disease) Paroxysmal 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 (HCC) S/P ablation of 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 Pneumonia Cytomegalovirus (CMV) viremia (HCC) Loculated pleural effusion Acute on chronic respiratory failure with hypoxia and hypercapnia (HCC) Sepsis (HCC) Pulmonary aspergillosis invasive type (HCC) COPD, severe (HCC) Secondary spontaneous pneumothorax Legionella pneumonia (HCC) Shock (HCC) Atrial fibrillation with RVR (HCC) Empyema of right pleural space (HCC) Brief Hospital Course: Nancy Trujillo is a 62 y/o male w/ PMH significant forHTN, HLD, CADs/p PCI 2012, CHF,tobacco use,COPD on 2-3 L/NC Q HS, afibw/ recent prolonged hospitalization for legionella & aspergillosis pneumonia as well as +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 He was discharged to rehab 12/31. Admitted to the floor from rehab on 01/21w/ worsening tachycardia, leukocytosis &fever. CT chest showed new loculated R hydropneumothorax & consolidation.Transferred to ICU for chest tube placement &increasing O2 requirements.Underwent pigtail placement x 2 to R anterior space & R posterior space, started TPA/dornase.Repeat CT chest 01/25 showed resolution of the anterior hydropneumothorax. There has been improvement in the posterior lateral pleural effusion but despite TPA and dornase the complex pleural space persists. Removed anterior CT 01/25. CTS following, plan for OR . Currently tolerating3 L HFNC w/[id number].IDfollowing; abxw/ zosyn , cresemba. Assessment/Plan: NEURO - Alert and oriented PULM COPD Acute on Chronic Hypoxic Respiratory Failure InvasivePulmonaryAspergillosis LegionellaPneumonia P.MirabilisPneumonia R LoculatedHydropneumothorax - Baseline O2 2-3 L/NC Q HS - Had prolongedrecenthospitalization for legionella pneumonia, mirabilis pneumonia &necrotizing aspergillosis; also possible aspiration pneumonia -Had MAC in sputum cx + CMV & HSV in BAL -S/p chest tube 12/16 -12/29; fluid exudative, cultures negative - Had finished treatment w/zosyn,linezolid & micafungin; was receiving antibiotics micafungin, cresemba,&valganciclovir -Developedfever&leukocytosis 01/21 - CT chest 01/21:development of moderate loculated right pneumothorax w/ anterior &apical component, persistent extensive right lung consolidation c/w pneumonia, slight improvement in mild patchy &nodular left lung opacities - Tx to ICU01/22for chest tube placement & increasing O2 requirements on the floor - PlacedR sided chest tube x 2 to anterior space & posterior space & started TPA/dornase to posterior tube - Pleural fluid cell counts: WBC 12,995; neutrophil predominate, exudative fluid , cx NGTD - CT chest 01/25: significant overall improvement in the moderate loculated hydropneumothorax after placement of 2 pleural drains; persistent extensive right lung consolidation compatible with pneumonia and/or atelectasis; stable patchy and nodular left lung opacities with a small left pleural effusion - Anterior CT dc'd 01/25 - Posterior CT -- completed TPA/dornase on 01/25;640 mL output - Currently tolerating3 L HFNC w/ SpO2 90s PLAN -Added anoro, acapella, mucomyst nebs &albuterol prior to mucomyst -CTS following -->plan for surgery 01/28; thoracoscopic approach with debridement and placement of long-term chest tubes; once the pleural space has had an opportunity to form adhesions, CTS will address any remaining pleural spaces -Continue zosyn, cresemba - Dc'd spiriva/symbicort w/ recurrent respiratory infections; continue mucinex, flonase - Pain control r/t chest tubes w/ norco; toradol dc'd w/ new DEONTE CV Hx Paroxysmal Afib Shock(resolved) - S/p ablation 2013 - Had RVR103/25-01/23w/ associated hypotension --> started amiodarone gtt & phenyl gtt - Shock likely 2/2 RVR- phenyl weaned off 01/23 afternoon - Lactate negative - Dig level 1.0 (12/21) --> 2.1 (01/27) - HR 90s PLAN - 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 12.5 mg BID - Hold digoxin; repeat dig level on 01/28 -Continue to hold xarelto w/ CT in place & possible procedures in near future CAD s/p PCIto RCA 2012 HTN/HLD - Echo 11/22: LVEF 70%, trace TR, RV normal, trace effusion - 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,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 - SBP 110s-120s PLAN -Continue lnbrhscafb71.5 mg BID - Hold 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 lasix (60 mg BID) AAA -CT abd//5/18: fusiform infrarenal abdominal aortic aneurysm measuring up to 4.9 cm in maximum diameter -Will need monitoringoutpatient GI - BM 01/27 - Regular diet - Colace/senna/miralax GERD -Continueprotonix - Zofran w/ meals RENAL DEONTE - Cr 0.41 on 01/25 --> 1.77 on 01/26 --> 2.10 this AM - K+ 4.5, CO2 25, BUN 20, anion gap 7 - FENa 1.27%, FEUrea 57.2% - Eosinophil stain negative - UOP 1.2 L last 24 hrs - I/O:net - 570 mL last 24 hrs (net + 1.8 L for admit) - Gave 1 L IVF on 01/26 --> Cr did not improve, but UOP did PLAN - Continue to monitor - Avoid nephrotoxins -- vancomycin dc'd 01/25, toradol and valganciclovir dc'd 01/26 ID InvasivePulmonaryAspergillosis LegionellaPneumonia Possible Aspiration Pneumonia P.MirabilisPneumonia CMV Viremia - Recent prolonged hospitalization for legionella & aspergillosis pneumonia as well as +CMV/HSV in BAL - Also w/ MAC in sputum 12/20/17& proteus in sputum 01/16/18 - WBC16.6,afebrile - CT chest as above w/ pneumonia - Blood cx 01/21: no growth - Fungal blood cx 01/21: NGTD - Sputum cx 01/22:contamination - does not meet criteria for culture - Pleural fluid 01/22: WBC 12,995 neutrophil predominate, cx no growth - Pleural fluidfungal cx NGTD, AFB pending PLAN -Continue zosyn and cresemba - ID following HEME Thrombocytosis - May be reactive 2/2 infection - Hgb8.8, [id number] FEN - Regular diet; NPO at midnight tonight - IVF: none - review electrolytes and replace as needed PPX: Lines: R PICC Drains/Tubes: R Posterior chest tube Indwelling Urinary Catheter: No DVT: Lovenox (dc'd w/ plan for OR 01/28) GI: Protonix PT/OT: Yes Insulin: No Reviewed Quality Checklist with RN: Yes Code Status: Full Code Disposition/Family: Will keep in ICU with plan for OR tomorrow. Lisa Box APRN Pulm/Critical Care Pager [phone] (2nd call/night) Pager [phone] 01/27/2018 1123 ATTESTATION I personally interviewed and examined the patient. I have reviewed the history , physical, impression and plan outlined by the Nurse Practitioner. The patient resting comfortably. Had a good night. No fevers or chills. Pain is controlled the chest tube site. Appetite slowly improving. On examination: Vitals and I/O's reviewed Neuro-alert and oriented Chest-decreased breath sounds on right with pigtail in place CV-regular rhythm and rate Abd-flat soft nontender Ext- no cyanosis or clubbing Skin- no rashes I personally reviewed pertinent labs and images My impression/plan: 1Acute on chronic hypoxemic respiratory failure secondary to empyema on the right as well as hydropneumothorax anteriorly.Completed 6 doses of TPA and dornase. Repeat CT scan of the chest reveals resolution of the anterior hydropneumothorax. Continue posterior chest tube to drainage and discontinued anterior chest tube. Thoracic surgery plans for OR tomorrow. Held prophylactic anticoagulation. 2. Severe sepsis secondary to complicated right lower lobe pneumonia likely bacterial on fungal with empyema.Continue Zosyn and cresemba. 3. Severe obstructive lung disease with emphysema.Continue Anoro. Patient off inhaled corticosteroid so as not to complicate her increased risk of pneumonia. 4. A-fib with RVRcontinue beta-manjit, held dig with renal dysfunction 5. Acute renal insufficiency most likely ATN with minimal elevation in creatinine today versus yesterday. Avoid nephrotoxins. Staff name: Henry Folres MD Date: 01/27/2018 __ Subjective: Nancy Trujillo is a 62 y.o. male who is awake and alert, resting in bed. Coughing up good amount of sputum. Minimal SOB, and mild discomfort from R pleural chest tube. ROS: Denies FERGUSON, chest pain/pressure, abdominal pain, N/V/D/C, or rash. Objective: Medications: Scheduled Meds: acetylcysteine (MUCOMYST) 200 mg/mL (20 %) nebulizer solution 3 mL 3 mL Inhalation Q12H albuterol 0.5% (PROVENTIL; VENTOLIN) nebulizer solution 2.5 mg 2.5 mg Inhalation BID & PRN ascorbic acid (VITAMIN C) tablet 500 mg 500 mg Oral QDAY cholecalciferol (VITAMIN D-3) tablet 400 Units 400 Units Oral QDAY docusate (COLACE) capsule 200 mg 200 mg Oral BID enoxaparin (LOVENOX) syringe 40 mg 40 mg Subcutaneous QDAY(21) fluticasone (FLONASE) nasal spray 2 spray 2 [...] (SENOKOT) tablet 2 tablet 2 tablet Oral BID sodium chloride PF 0.9% flush [...] Respiratory Meds:acetaminophen Q4H PRN, alteplase BID PRN, HYDROcodone/ acetaminophen Q6H PRN, magnesium sulfate PRN AND Magnesium PRN AND Notify Physician Ongoing, potassium chloride SR PRN OR potassium chloride PRN Vital Signs: Last Filed Vital Signs: 24 Hour Range BP: 122/80 (01/27) Temp: 36.6 C (97.8 F) (01/27 2000) Pulse: 90 (01/27) Respirations: 18 PER MINUTE (01/26 2137) SpO2: 96 % (01/27) O2 Delivery: High Flow Nasal Cannula (01/27) SpO2 Pulse: 93 (01/27) BP: (122-128)/(80-82) Temp: [36.4 C (97.5 F)-36.6 C (97.8 F)] Pulse: [85-100] Respirations: [18 PER MINUTE-22 PER MINUTE] SpO2: [96 %-97 %] O2 Delivery: High Flow Nasal Cannula Intensity Pain Scale (Self Report): 5 (01/26/181999) Vitals: 01/24/18 0500 01/25/18 0600 01/26/18 0400 Weight: 74.9 kg (165 lb 2 oz) 74.3 kg (163 lb 12.8 oz) 75 kg (165 lb 5.5 oz) Intake/Output Summary: (Last 24 hours) Intake/Output Summary (Last 24 hours) at 01/27/2018 0606 Last data filed at 01/27/2018 0500 Gross per 24 hour Intake 1416.67 ml Output 1985 ml Net -568.33 ml Physical Exam: General: alert, cooperative, no distress Head: normocephalic, without obvious abnormality, atraumatic Eyes: conjunctivae/corneas clear, PERRL Lungs: quiet breath sounds in R lung, clear breath sounds in L lung, no wheezing ; R chest tube w/ no air leak, serosanguenous fluid Heart: regular rate and rhythm, no murmur appreciated Abdomen: soft, non-tender; bowel sounds active Extremities: normal, atraumatic, no cyanosis; trace LE edema Peripheral pulses: 2+ and symmetric, all extremities Skin: no rashes or lesions Neurologic: grossly normal Artificial airway: None Ventilator/ Respiratory Therapy: No Vent weaning trial: Not applicable Laboratory: LABS: Recent Labs 01/25/18 0338 01/26/18 0430 01/26/18 1420 01/27/18 0352 NA 134* 135* 136* 138 K 4.5 4.8 4.8 4.5 CL 103 103 104 106 CO2 29 26 24 25 GAP 2* 6 8 7 BUN 6* 15 18 20 CR 0.41 1.77* 2.08* 2.10* GLU 106* 104* 100 89 CA 8.0* 8.0* 8.0* 8.0* ALBUMIN -- 2.1* -- -- MG 2.2 2.4 -- 2.3 PO4 3.2 4.2 -- 5.1* Recent Labs 01/25/18 0338 01/26/18 0430 01/27/18 0352 WBC 12.9* 17.0* 16.6* HGB 8.9* 9.4* 8.8* HCT 28.1* 29.2* 27.0* PLTCT 428* 422* 408* AST -- 33 -- ALT -- 22 -- ALKPHOS -- 96 -- Estimated Creatinine Clearance: 38.7 mL/min (A) (based on SCr of 2.1 mg/dL (H)). Vitals: 01/24/18 0500 01/25/18 0600 01/26/18 0400 Weight: 74.9 kg (165 lb 2 oz) 74.3 kg (163 lb 12.8 oz) 75 kg (165 lb 5.5 oz) No results for input(s): PHART, PO2ART in the last 72 hours. Invalid input(s): PC02A 01/21 blood cx NGTD Radiology and Other Diagnostic Procedures Review: Reviewed pertinent studies. NESS TRANSFORMATION CONSULTANT * Beatriz Fonseca RN - 01/26/2018 7:18 PM BUSINESS TRANSFORMATION CONSULTANT Heart Failure Nursing Progress Note Admission Date: 01/21/2018 LOS: 5 days Admission Weight: 73.7 kg (162 lb 7.7 oz) Most recent weights (inpatient): Vitals: 01/24/18 0500 01/25/18 0600 01/26/18 0400 Weight: 74.9 kg (165 lb 2 oz) 74.3 kg (163 lb 12.8 oz) 75 kg (165 lb 5.5 oz) Weight change from previous day: +0.6kg Fluid restriction ordered: no Intake/Output Summary: (Last 24 hours) Intake/Output Summary (Last 24 hours) at 01/26/20181917 Last data filed at 01/26/2018 1752 Gross per 24 hour Intake 1738.67 ml Output 1390 ml Net 348.67 ml Is patient incontinent No Anticipated discharge date: n/a Discharge goals: Go home! Daily Assessment of Patient Stated Goals: Short Term Goal Identified by patient (Short Term=during hospitalization): Up to chair twice a day. NESS TRANSFORMATION CONSULTANT * Paola Mcgill, RT - 01/26/2018 6:45 PM BUSINESS TRANSFORMATION CONSULTANT RT Adult Assessment Note NAME:Nancy Trujillo :1955 AGE: 62 y.o. ADMISSION DATE: 01/21/2018 DAYS ADMITTED: LOS: 5 days RT Treatment Plan: Protocol Plan: Medications Albuterol: Neb BID Tiotropium: Discontinued Acetylcysteine: Neb BID Protocol Plan: Procedures Vibrating PEP Therapy: Q4h While Awake NTS: PRN PAP: Q4h PAP While Awake Oxygen/Humidity: O2 to keep SpO2 > 92% Monitoring: Pulse oximetry Q6h & PRN Comment: . Additional Comments: Impressions of the patient: alert Vital Signs: Pulse: RR: SpO2: O2 Device: $$ O2 Device: High Flow Nasal Cannula Liter Flow: O2 Liter Flow: 3 lpm O2%: Breath Sounds: All Breath Sounds: Rhonchi Respiratory Effort: NESS TRANSFORMATION CONSULTANT * Mohan Johnson MD - 01/26/2018 4:31 PM BUSINESS TRANSFORMATION CONSULTANT I reviewed the patient's most recent CT scan and examined the patient. The patient has marked improvement in his CT scan after placement of a drain however he has significant pleural contamination with entrapment of portions of his lung. Given the frail nature of his underlying lung, I would not offer the patient a major surgical resection or attempted decortication. Instead, I would offer the patient a thoracoscopic approach with debridement and placement of long-term chest tubes. Once the pleural space has had an opportunity to form adhesions, we will address any remaining pleural spaces. This is essentially a modification of the Eloesser technique used for tuberculous empyema in the 1920s. We will plan on doing this as a staged operation given his overall frail status. I outlined a plan for an operation on Wednesday with the patient. His other family members are expected to be present for continued discussion tomorrow. NESS TRANSFORMATION CONSULTANT * Beatriz Baker - 01/26/2018 1:46 PM BUSINESS TRANSFORMATION CONSULTANT OCCUPATIONAL THERAPY ASSESSMENT NOTE Patient Name: Nancy Trujillo Room/Bed: KG6581/ Admitting Diagnosis: PNEUMONIA Mobility Progressive Mobility Level: Stand(steps to HOB) Level of Assistance: Assist X1 Assistive Device: Hand Held Time Tolerated: 11-30 minutes Activity Limited By: Fatigue;Nausea;Shortness of air;Weakness Subjective Pertinent Dx per Physician: [facility] CAD s/p PCI 2012, CHF, COPD on 2-3L, Afib. 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 Discharged to rehab 12/31. Admitted to the floor from rehab on 01/21 w/ worsening tachycardia, leukocytosis & fever. Found new loculated R hydropneumothorax & consolidation. Transferred to ICU for chest tube placement x2 & increasing O2 requirements. Anterior chest tube discontinued 01/25, posterior chest tube remains in place. Precautions: Falls;O2 Requirement(3lpm via nasal canula) Pain / Complaints: Patient agrees to participate in therapy Pain Location: chest tube site Pain Level Current: Did not rate. Objective Psychosocial Status: Willing and Cooperative to Participate Persons Present: Son Home Living Type of Home: House Home Layout: One Level(Unfinished basement with makeshift shower) Bathroom Shower / Tub: Tub Only(Pt reports he currently has a tub only, but family may remodel to add a walk in shower) Bathroom Toilet: Standard Bathroom Accessibility: Accessible via Walker(and believes via wheelchair but "may be close") Comment: Denies fall history. Although as interview proceeded, patient admits to L leg intermittently giving way at baseline, resulting in "falling into" people and needing help to recover balance. (Information per EMR.) Prior Function Level Of [place]: Independent with homemaking w/ ambulation;Independent with ADLs and functional transfers Lives With: Significant Other Receives Help From: None Needed Vocational: On Disability Other Function Comments: Rachel will be available to assist patient at discharge with intermittent bouts of being home alone. Goals: "getting up and walking" and "being able to go to the bathroom at home." (Information per EMR.) ADL's Where Assessed: Edge of Bed LE Dressing Assist: Stand By Assist LE Dressing Deficits: Increased Time To Complete;Verbal Cueing;Setup Functional Transfer Assist: Moderate Assist Functional Transfer Deficits: Steadying;Verbal Cueing;Supervision/Safety; Increased Time to Complete Comment: Bed mobility supine <> EOB with SBA and extra time. Pt sits EOB independently for sitting balance. He required a rest break upon sitting EOB due to fatigue and nausea. He completed LB dressing, stood and took a few steps towards HOB, then returned to supine. Cognition Overall Cognitive Status: WFL to Adequately Complete Self Care Tasks Safely Education Persons Educated: Patient/Family Barriers To Learning: None Noted Teaching Methods: Verbal Instruction Patient Response: Verbalized Understanding Topics: Role of OT, Goals for Therapy;ADL Compensatory Techniques Goal Formulation: With Patient Assessment Assessment: Decreased ADL Status;Decreased UE Strength;Decreased Endurance; Decreased Self-Care Trans;Decreased High-Level ADLs Prognosis: Good;w/Cont OT s/p Acute Discharge AM-PAC 6 Clicks Daily Activity Inpatient Putting on and taking off regular lower body clothes?: A Lot Bathing (Including washing, rinsing, drying): A Lot Toileting, which includes using toilet, bedpan, or urinal: A Lot Putting on and taking off regular upper body clothing: A Little Taking care of personal grooming such as brushing teeth: None Eating meals?: None Daily Activity Raw Score: 17 Standardized (t-scale) score: 37.26 CMS 0-100% Score: 50.11 CMS G Code Modifier: CK Plan OT Frequency: 5x/week OT Plan for Next Visit: grooming at the sink ADL Goals Patient Will Perform Grooming: Standing at Sink;w/ Stand By Assist Patient Will Perform LE Dressing: w/ Stand By Assist Patient Will Perform Toileting: w/ Stand By Assist Functional Transfer Goals Pt Will Perform All Functional Transfers: w/ Stand By Assist OT Discharge Recommendations OT Discharge Recommendations: Inpatient Setting(return to [facility]) Equipment Recommendations: Too early to be determined G-Codes: Self-care G8987 Current Status: 40-59% Impairment G8988 Goal Status: 1-19% Impairment Based on above evaluation and clinical judgment. 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 Discharged to rehab 12/31. Admitted to the floor from rehab on 01/21 w/ worsening tachycardia, leukocytosis & fever. CT chest showed new loculated R hydropneumothorax & consolidation. Transferred to ICU for chest tube placement & increasing O2 requirements. Underwent pigtail placement x2 to R anterior space & R posterior space, started TPA/dornase. Anterior chest tube discontinued 01/25, posterior chest tube remains in place, CTS following. Mental / Cognitive Status: Alert;Oriented;Cooperative Persons Present: RehabTechnician;Son Pain: Patient complains of pain;Patient does not rate pain Pain Location: Right(posterior chest tube site) Pain Interventions: Patient agrees to participate in therapy Comments: 4L O2 NC at rest, did require brief titration to 6L O2 NC for ambulation only, returned to 4L O2 NC at end of session, discussed with RN Ambulation Assist: Independent Mobility in Community without Device(prior to hospital admission this fall, since required assist) Patient Owned Equipment: (will need to confirm has his own 4 wheeled walker) Home Situation: Lives with Family Type of Home: House Entry Stairs: 3-5 Stairs(5, family arranging for handrail to be added this week) In-Home Stairs: Able to Live on One Level(family arranging for addition of shower to main level bathroom) Comments: Patient reports he was able to ambulate from his room on rehab to the gym with 4 wheeled walker. He reports he was also working on stairs. BED MOBILITY/TRANSFERS: Bed Mobility/Transfers Bed Mobility: Supine to Sit: Minimal Assist;Head of Bed Elevated Transfer Type: Stand Pivot Transfer: Assistance Level: To;Bed Side Chair;Minimal Assist;x2 People Transfer: Assistive Device: Hand Hold Assist Transfers: Type Of Assistance: Requires Extra Time;Knees(s) Blocked Other Transfer Type: Sit to/from Stand Other Transfer: Assistance Level: To/From;Bed Side Chair;Minimal Assist;x2 People Other Transfer: Assistive Device: Hand Hold Assist End Of Activity Status: Up in Chair;Nursing Notified;Instructed Patient to Request Assist with Mobility;Instructed Patient to Use Call Light(alarm activated) Comments: VS stable with activity with O2 titration. SpO2 did drop to low 80s once up but improved >90% with increased O2. GAIT: Gait Gait Distance: 12 feet Gait: Assistance Level: Minimal Assist;x2 People Gait: Assistive Device: Hand Hold Assist Gait: Descriptors: Pace: Slow Comments: Knee blocked at all times. Activity Limited By: Complaint of Fatigue;SOA EDUCATION: Education Persons Educated: Patient Teaching Methods: Verbal Instruction;Demonstration Patient Response: Verbalized Understanding;Return Demonstration;More Instruction Required Topics: Plan/Goals of PT Interventions;Use of Assistive Device/Orthosis; Mobility Progression;Safety Awareness;Up with Assist Only;Importance of Increasing Activity ASSESSMENT/PROGRESS: Assessment/Progress Impaired Mobility Due To: Decreased Strength;Impaired Balance;Decreased Activity Tolerance;Deconditioning;Medical Status Limitation Assessment/Progress: Should Improve w/ Continued PT AM-PAC 6 Clicks Basic Mobility Inpatient Turning from your back to your side while in a flat bed without using bed rails : None Moving from lying on your back to sitting on the side of a flatbed without using bedrails : A Little Moving to and from a bed to a chair (including a wheelchair): A Little Standing up from a chair using your arms (e.g. wheelchair, or bedside chair): A Little To walk in hospital room: A Little Climbing 3-5 steps with a railing: A Lot Raw Score: 18 Standardized (T-scale) Score: 41.05 Basic Mobility CMS 0-100%: 40.47 CMS G Code Modifier for Basic Mobility: CK GOALS: Goals Goal Formulation: With Patient Pt Will Go Supine To/From Sit: w/ Stand By Assist Pt Will Transfer Sit to Stand: w/ Stand By Assist Pt Will Ambulate: 31-50 Feet, w/ Walker, w/ Minimal Assist Pt Will Go Up / Down Stairs: (will establish at later date as appropriate) PLAN: Plan Treatment Interventions: Mobility Training;Strengthening;Balance Activities; Endurance Training Plan Frequency: 5 Days per Week PT Plan for Next Visit: increase standing balance/strength exercises, progress gait as appropriate RECOMMENDATIONS: PT Discharge Recommendations PT Discharge Recommendations: Inpatient Setting (possible return to rehab) Recommend ongoing assistance for: Transfers;Bed mobility;Ambulation;Stairs Therapist: Abimbola Welsh, PT, DPT Date: 01/26/2018 NESS TRANSFORMATION CONSULTANT * Fco Messina MD - 01/26/2018 11:05 AM BUSINESS TRANSFORMATION CONSULTANT Infectious Diseases Progress note Today's Date: 01/26/2018 Admission Date: 01/21/2018 Reason for this consultation: I was asked to provide my opinion and recommendations regarding this 62-year-old man with worsening vascular status extensive emphysema and new pneumothorax on the right side I reviewed the patient record there were extensive and summarized them, I personally viewed the CT scan of the chest from 01/21/2018 showed extensive infiltrate in the right lung and loculated pneumothorax possible necrosis of the lung. Assessment: Invasive pulmonary aspergillosis in COPD patient with right-sided extensive disease -Worsening resp failure -Fever/leukocytosis 01/21 -Ct chest 01/21/2018: Development of a moderate [...] - Fungitell 38, Galactomannan 0.052. 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 Not detected on first BAL, virus detected on 12/21/17 BAL. Significant debility P. mirabilis pneumonia 01/16/18 DEONTE 01/26 Recommendations: Continue Zosyn, adjust abx with renal failure Continue cresemba Noted DEONTE I doubt active CMV disease, recommend stopping valcyte Monitor leukocytosis Follow on CT surgery recs Monitor labs for toxicity Patient is severely ill with resp failure, severe pneumonia, empyema Needing ICU monitoring Personally viewed CT chest on PACS 01/25 as above, overall improved, prognosis remains very poor History of Present Illness Nancy Trujillo is a 62 y.o. Nancy Trujillo is a 62 y.o. male Breathing is better Still on 4 L of O2 Chest pain on R is fairly controlled No diarrhea no N/V no new rash cough about the same, slightly productive Abx Extensive history vanc 01/22 to 05/01 Zosyn 01/22 cresemba micafungin valcyte Estimated Creatinine Clearance: 45.9 mL/min (A) (based on SCr of 1.77 mg/dL (H)) . Medications Scheduled Meds: acetylcysteine (MUCOMYST) 200 mg/mL (20 %) nebulizer solution 3 mL 3 mL Inhalation Q12H albuterol 0.083% (PROVENTIL; VENTOLIN) nebulizer solution 2.5 mg 2.5 mg Inhalation Q12H ascorbic acid (VITAMIN C) tablet 500 mg 500 mg Oral QDAY cholecalciferol (VITAMIN D-3) tablet 400 Units 400 Units Oral QDAY docusate (COLACE) capsule 200 mg 200 mg Oral BID enoxaparin (LOVENOX) syringe 40 mg 40 mg Subcutaneous QDAY(21) fluticasone (FLONASE) nasal spray 2 spray 2 [...] (SENOKOT) tablet 2 tablet 2 tablet Oral BID sodium chloride PF 0.9% flush 30 mL 30 mL Intravenous FLUSH TID thiamine mononitrate tablet 100 mg 100 mg Oral QDAY umeclidinium-vilanterol (ANORO ELLIPTA) 62.5-25 mcg/actuation inhaler 1 puff 1 puff Inhalation QDAY valGANciclovir (VALCYTE) tablet 450 mg 450 mg Oral BID w/meals vitamin A & D topical ointment Topical QDAY vitamins, multi w/minerals tablet 1 tablet 1 tablet Oral QDAY Continuous Infusions: PRN and Respiratory Meds:acetaminophen Q4H PRN, alteplase BID PRN, HYDROcodone/ acetaminophen Q6H PRN, magnesium sulfate PRN AND Magnesium PRN AND Notify Physician Ongoing, potassium chloride SR PRN OR potassium chloride PRN Physical Examination Vital Signs: Last Vital Signs: 24 Hour Range BP: 111/76 (01/27 400) Temp: 36.5 C (97.7 F) (01/27 800) Pulse: 100 (01/27 800) Respirations: 22 PER MINUTE (01/27 800) SpO2: 96 % (01/26 842) O2 Delivery: High Flow Nasal Cannula (01/27 800) SpO2 Pulse: 91 (01/27 400) BP: (103-125)/(60-88) Temp: [35.9 C (96.6 F)-36.9 C (98.4 F)] Pulse: [93-100] Respirations: [12 PER MINUTE-32 PER MINUTE] SpO2: [95 %-100 %] O2 Delivery: High Flow Nasal Cannula General: Alert, cooperative, in mild distress Head: Normocephalic, without obvious abnormality, atraumatic Throat: Lips, mucosa and tongue normal. no thrush Lungs: improved BS on R, chest tube with cloudy fluid, decrease output Heart: Regular rate and rhythm Abdomen: Soft, slightly tender in the right upper quadrant Extremities: Extremities normal, atraumatic, no rash, no erythema, there is a minimal superficial ulcer on the medial left thigh, not infected some bruises Skin: Skin color, texture, turgor normal. Neurologic: Diffuse weakness Lab Review Hematology Recent Labs 01/24/1831401/25/1833701/26/18 0430 WBC 14.4* 12.9* 17.0* HGB 9.3* 8.9* 9.4* HCT 28.9* 28.1* 29.2* PLTCT 403* 428* 422* Chemistry Recent Labs 01/24/1831401/25/1833701/26/18 0430 NA 133* 134* 135* K 4.4 4.5 4.8 CL 102 103 103 CO2 28 29 26 BUN 9 6* 15 CR 0.56 0.41 1.77* GFR >60 >60 39* GLU 121* 106* 104* CA 8.0* 8.0* 8.0* PO4 2.8 3.2 4.2 ALBUMIN 2.1* -- 2.1* ALKPHOS 93 -- 96 AST 31 -- 33 ALT 20 -- 22 TOTBILI 0.2* -- 0.2* Microbiology, Radiology and other Diagnostics Review Microbiology data reviewed. Pertinent radiology images viewed. Impression: Fco Messina MD Pager [phone] Infectious Diseases Faculty NESS TRANSFORMATION CONSULTANT * Henry Flores MD - 01/26/2018 6:13 AM BUSINESS TRANSFORMATION CONSULTANT Pulmonary / Critical Care Progress Note Nancy Trujillo Today's Date: 01/26/2018 Admission Date: 01/21/2018 LOS: 5 days Active Problems: CAD (coronary artery disease) Paroxysmal 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 (HCC) S/P ablation of 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 Pneumonia Cytomegalovirus (CMV) viremia (HCC) Loculated pleural effusion Acute on chronic respiratory failure with hypoxia and hypercapnia (HCC) Sepsis (HCC) Pulmonary aspergillosis invasive type (HCC) COPD, severe (HCC) Secondary spontaneous pneumothorax Legionella pneumonia (HCC) Shock (HCC) Atrial fibrillation with RVR (HCC) Empyema of right pleural space (HCC) Brief Hospital Course: Nancy Trujillo is a 62 y/o male w/ PMH significant forHTN, HLD, CADs/p PCI 2012, CHF,tobacco use,COPD on 2-3 L/NC Q HS, afibw/ recent prolonged hospitalization for legionella & aspergillosis pneumonia as well as +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 He was discharged to rehab 12/31. Admitted to the floor from rehab on 01/21w/ worsening tachycardia, leukocytosis &fever. CT chest showed new loculated R hydropneumothorax & consolidation.Transferred to ICU for chest tube placement &increasing O2 requirements.Underwent pigtail placement x 2 to R anterior space & R posterior space, started TPA/dornase.Repeat CT chest 01/25 showed resolution of the anterior hydropneumothorax. There has been improvement in the posterior lateral pleural effusion but despite TPA and dornase the complex pleural space persists. CTS following. Removed anterior CT 01/25. Currently tolerating4 L HFNC w/[id number].IDfollowing; abxw/ zosyn, cresemba. Will dc valgancyclovir. Assessment/Plan: NEURO - Alert and oriented PULM COPD Acute on Chronic Hypoxic Respiratory Failure InvasivePulmonaryAspergillosis LegionellaPneumonia P.MirabilisPneumonia R LoculatedHydropneumothorax - Baseline O2 2-3 L/NC Q HS - Had prolongedrecenthospitalization for legionella pneumonia, mirabilis pneumonia &necrotizing aspergillosis; also possible aspiration pneumonia -Had MAC in sputum cx + CMV & HSV in BAL -S/p chest tube 12/16 -12/29; fluid exudative, cultures negative - Had finished treatment w/zosyn,linezolid & micafungin; was receiving antibiotics micafungin, cresemba,&valganciclovir -Developedfever&leukocytosis 01/21 - CT chest 01/21:development of moderate loculated right pneumothorax w/ anterior &apical component, persistent extensive right lung consolidation c/w pneumonia, slight improvement in mild patchy &nodular left lung opacities - Tx to ICU01/22for chest tube placement & increasing O2 requirements on the floor - PlacedR sided chest tube x 2 to anterior space & posterior space & started TPA/dornase to posterior tube - Pleural fluid cell counts: WBC 12,995; neutrophil predominate, exudative fluid , cx NGTD - CT chest 01/25: significant overall improvement in the moderate loculated hydropneumothorax after placement of 2 pleural drains; persistent extensive right lung consolidation compatible with pneumonia and/or atelectasis; stable patchy and nodular left lung opacities with a small left pleural effusion - Anterior CT dc'd 01/25 - Posterior CT -- completed TPA/dornase on 01/25;425 mL output - Currently tolerating4 L HFNC w/ SpO2 90s PLAN -Added anoro, acapella, mucomyst nebs &albuterol prior to mucomyst -CTS following -->no acute surgical intervention indicated at this time given low volume of healthy lung visible on the right side; recommend IR drainage of inferior fluid collection to follow remaining healthy lung to expand ; will continue to follow along as patient will likely need a staged surgery -Continue zosyn, valganciclovir, cresemba - Dc'd spiriva/symbicort w/ recurrent respiratory infections; continue mucinex, flonase - Pain control r/t chest tubes w/ norco; toradol dc'd w/ new DEONTE CV Hx Paroxysmal Afib Shock(resolved) - S/p ablation 2013 - Had RVR103/25-01/23w/ associated hypotension --> started amiodarone gtt & phenyl gtt - Shock likely 2/2 RVR- phenyl weaned off 01/23 afternoon - Lactate negative - Given IVF - Last dig level 1.0 (12/21) - HR 90s PLAN - 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 12.5 mg BID - Hold digoxin; check dig level 01/27 -Continue to hold xarelto w/ CT in place & possible procedures in near future CAD s/p PCIto RCA 2012 HTN/HLD - Echo 11/22: LVEF 70%, trace TR, RV normal, trace effusion - 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,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 - SBP 100s-120s PLAN -Continue telxehlyxo42.5 mg BID, hold 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 lasix (60 mg BID) AAA -CT abd//5/18: fusiform infrarenal abdominal aortic aneurysm measuring up to 4.9 cm in maximum diameter -Will need monitoringoutpatient GI - Last BM 01/26 - Regular diet - Colace/senna/miralax GERD -Continueprotonix - Zofran w/ meals RENAL DEONTE - Cr 0.41 on 01/25 --> 1.77 this AM - K+ 4.8, CO2 26, BUN 15, anion gap 6 - UOP 330 mL last 24 hrs - I/O:net - 275 mL last 24 hrs (net + 2.4 L for admit) PLAN - Bladder scan now -- will straight cath if volume > 250 mL - Send UA and urine lytes - Send eosinophil stain - Give 1 L IVF at 125 mL/hr, then repeat labs this afternoon ID InvasivePulmonaryAspergillosis LegionellaPneumonia Possible Aspiration Pneumonia P.MirabilisPneumonia CMV Viremia - Recent prolonged hospitalization for legionella & aspergillosis pneumonia as well as +CMV/HSV in BAL - Also w/ MAC in sputum 12/20/17& proteus in sputum 01/16/18 - WBC17.0,afebrile - CT chest as above w/ pneumonia - Blood cx 01/21: NGTD - Fungal blood cx 01/21: NGTD - Sputum cx 01/22:contamination - does not meet criteria for culture - Pleural fluid 01/22: WBC 12,995 neutrophil predominate, cx NGTD - Pleural fluidfungal cx NGTD, AFB pending PLAN -Continue zosyn and cresemba - DC valgancyclovir - ID following HEME Thrombocytosis - May be reactive 2/2 infection - Hgb9.4, [id number] FEN - Regular diet - IVF: none - review electrolytes and replace as needed PPX: Lines: R PICC Drains/Tubes: R Posterior chest tube Indwelling Urinary Catheter: No DVT: Lovenox GI: Protonix PT/OT: Yes Insulin: No Reviewed Quality Checklist with RN: Yes Code Status: Full Code Disposition/Family: Remains stable for transfer to floor. Lisa Box APRN Pulm/Critical Care Pager [phone] (2nd call/night) Pager [phone] 01/26/2018 1140 ATTESTATION I personally interviewed and examined the patient. I have reviewed the history , physical, impression and plan outlined by the Nurse Practitioner. The patient is resting in bed. No fevers or chills. Cough is more productive and easy to expectorate sputum on Mucomyst and flutter valve. Pain is better controlled now that anterior chest tube is removed. On examination: Vitals and I/O's reviewed Neuro-alert and oriented Chest-decreased breath sounds on right with pigtail in place CV-regular rhythm and rate Abd-flat soft nontender Ext- no cyanosis or clubbing Skin- no rashes I personally reviewed pertinent labs and images My impression/plan: 1Acute on chronic hypoxemic respiratory failure secondary to empyema on the right as well as hydropneumothorax anteriorly. Completed 6 doses of TPA and dornase. Repeat CT scan of the chest reveals resolution of the anterior hydropneumothorax. Continue posterior chest tube to drainage and discontinue anterior chest tube. Awaiting recommendations from thoracic surgery 2. Severe sepsis secondary to complicated right lower lobe pneumonia likely bacterial on fungal with empyema. Continue Zosyn and cresemba. 3. Severe obstructive lung disease with emphysema. Continue Anoro. Patient off inhaled corticosteroid so as not to complicate her increased risk of pneumonia. 4. A-fib with RVR continue beta-manjit 5. Acute renal insufficiency most likely ATN related to NSAIDs may be complicated by volume. Will give IV fluids. Discontinue renal toxic meds. No evidence of urine eos on evaluation. Staff name: Henry Flores MD Date: 01/26/2018 __ Subjective: Nancy Trujillo is a 62 y.o. male who is awake and alert, resting in bed. Coughing up good amount of sputum this AM. Minimal SOB, and mild discomfort from R pleural chest tube. ROS: Denies FERGUSON, chest pain/pressure, abdominal pain, N/V/D/C, or rash. Objective: Medications: Scheduled Meds: acetylcysteine (MUCOMYST) 200 mg/mL (20 %) nebulizer solution 3 mL 3 mL Inhalation Q12H albuterol 0.083% (PROVENTIL; VENTOLIN) nebulizer solution 2.5 mg 2.5 mg Inhalation Q12H ascorbic acid (VITAMIN C) tablet 500 mg 500 mg Oral QDAY cholecalciferol (VITAMIN D-3) tablet 400 Units 400 Units Oral QDAY digoxin (LANOXIN) tablet 250 mcg 250 mcg Oral QDAY docusate (COLACE) capsule 200 mg 200 mg Oral BID enoxaparin (LOVENOX) syringe 40 mg 40 mg Subcutaneous QDAY(21) fluticasone (FLONASE) nasal spray 2 spray 2 [...] mg 40 mg Oral QDAY(21) piperacillin/tazobactam (ZOSYN) 4.5 g in sodium chloride 0.9% (NS) 100 mL IVPB ( MB+) 4.5 g Intravenous Q6H* polyethylene glycol 3350 (MIRALAX) packet 17 g 1 packet Oral BID senna (SENOKOT) tablet 2 tablet 2 tablet Oral BID sodium chloride PF 0.9% flush [...] Respiratory Meds:acetaminophen Q4H PRN, alteplase BID PRN, HYDROcodone/ acetaminophen Q6H PRN, ketorolac (TORADOL) 15-30 mg injection Q6H PRN, magnesium sulfate PRN AND Magnesium PRN AND Notify Physician Ongoing, potassium chloride SR PRN OR potassium chloride PRN Vital Signs: Last Filed Vital Signs: 24 Hour Range BP: 111/76 (01/27 400) Temp: 36.5 C (97.7 F) (01/27 400) Pulse: 93 (01/27 400) Respirations: 20 PER MINUTE (01/27 400) SpO2: 95 % (01/27 400) O2 Delivery: High Flow Nasal Cannula (01/27 400) SpO2 Pulse: 91 (01/27 400) BP: (97-151)/(60-140) Temp: [35.9 C (96.6 F)-36.9 C (98.4 F)] Pulse: [92-115] Respirations: [12 PER MINUTE-37 PER MINUTE] SpO2: [95 %-100 %] O2 Delivery: High Flow Nasal Cannula Intensity Pain Scale (Self Report): 4 (01/26/18 0100) Vitals: 01/24/18 0500 01/25/18 0600 01/26/18 0400 Weight: 74.9 kg (165 lb 2 oz) 74.3 kg (163 lb 12.8 oz) 75 kg (165 lb 5.5 oz) Intake/Output Summary: (Last 24 hours) Intake/Output Summary (Last 24 hours) at 01/26/2018 0613 Last data filed at 01/26/2018 0400 Gross per 24 hour Intake 482 ml Output 755 ml Net -273 ml Physical Exam: General: alert, cooperative, no distress Head: normocephalic, without obvious abnormality, atraumatic Eyes: conjunctivae/corneas clear, PERRL Lungs: quiet breath sounds in R lung, clear breath sounds in L lung, no wheezing ; R chest tube w/ no air leak, serous-serosanguenous fluid Heart: regular rate and rhythm, no murmur appreciated Abdomen: soft, non-tender; bowel sounds active Extremities: normal, atraumatic, no cyanosis; trace LE edema Peripheral pulses: 2+ and symmetric, all extremities Skin: no rashes or lesions Neurologic: grossly normal Artificial airway: None Ventilator/ Respiratory Therapy: No Vent weaning trial: Not applicable Laboratory: LABS: Recent Labs 01/23/18 1130 01/23/18 1810 01/24/1831401/25/1833701/26/18 0430 NA -- -- 133* 134* 135* K 3.1* 4.2 4.4 4.5 4.8 CL -- -- 102 103 103 CO2 -- -- 28 29 26 GAP -- -- 3 2* 6 BUN -- -- 9 6* 15 CR -- -- 0.56 0.41 1.77* GLU -- -- 121* 106* 104* CA -- -- 8.0* 8.0* 8.0* ALBUMIN -- -- 2.1* -- 2.1* MG 1.7 2.7* 2.4 2.2 2.4 PO4 -- -- 2.8 3.2 4.2 Recent Labs 01/24/18 03101/25/18 0338 01/26/18 0430 WBC 14.4* 12.9* 17.0* HGB 9.3* 8.9* 9.4* HCT 28.9* 28.1* 29.2* PLTCT 403* 428* 422* AST 31 -- 33 ALT 20 -- 22 ALKPHOS 93 -- 96 Estimated Creatinine Clearance: 45.9 mL/min (A) (based on SCr of 1.77 mg/dL (H)) . Vitals: 01/24/18 0500 01/25/18 0600 01/26/18 0400 Weight: 74.9 kg (165 lb 2 oz) 74.3 kg (163 lb 12.8 oz) 75 kg (165 lb 5.5 oz) No results for input(s): PHART, PO2ART in the last 72 hours. Invalid input(s): PC02A 01/21 blood cx NGTD Radiology and Other Diagnostic Procedures Review: Reviewed pertinent studies. NESS TRANSFORMATION CONSULTANT * Magalie Villagomez RN - 01/26/2018 5:03 AM BUSINESS TRANSFORMATION CONSULTANT Heart Failure Nursing Progress Note Admission Date: 01/21/2018 LOS: 5 days Admission Weight: 73.7 kg (162 lb 7.7 oz) Most recent weights (inpatient): Vitals: 01/24/18 0500 01/25/18 0600 01/26/18 0400 Weight: 74.9 kg (165 lb 2 oz) 74.3 kg (163 lb 12.8 oz) 75 kg (165 lb 5.5 oz) Weight change from previous day: -0.7 kg Fluid restriction ordered: N/A Intake/Output Summary: (Last 24 hours) Intake/Output Summary (Last 24 hours) at 01/26/2018 0504 Last data filed at 01/26/2018 0400 Gross per 24 hour Intake 482 ml Output 1030 ml Net -548 ml Is patient incontinent No Anticipated discharge date: TBD Discharge goals: TBD Daily Assessment of Patient Stated Goals: Short Term Goal Identified by patient (Short Term=during hospitalization): increase activity and improve respiratory status NESS TRANSFORMATION CONSULTANT * Laquita Head OT - 01/25/2018 2:00 PM BUSINESS TRANSFORMATION CONSULTANT OCCUPATIONAL THERAPY OT attempted to see pt x2 today. This am pt working with PT and up to chair eating when OT arrived. Attempted again this pm although pt in and talking with MD at bedside. OT will f/u on 01/26 and complete evaluation as available. Laquita Head OTR/L [id number] NESS TRANSFORMATION CONSULTANT * Fco Messina MD - 01/25/2018 11:49 AM BUSINESS TRANSFORMATION CONSULTANT Infectious Diseases Progress note Today's Date: 01/25/2018 Admission Date: 01/21/2018 Reason for this consultation: I was asked to provide my opinion and recommendations regarding this 62-year-old man with worsening vascular status extensive emphysema and new pneumothorax on the right side I reviewed the patient record there were extensive and summarized them, I personally viewed the CT scan of the chest from 01/21/2018 showed extensive infiltrate in the right lung and loculated pneumothorax possible necrosis of the lung. 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 Not detected on first BAL, virus detected on 12/21/17 BAL. Significant debility P. mirabilis pneumonia 01/16/18 Recommendations: Continue Zosyn , can DC vanc, follow on cultures Continue cresemba Continue valcyte for now Follow on CT surgery recs and repeat CT Monitor labs for toxicity Patient is critically ill with resp failure, severe pneumonia, empyema Needing ICU monitoring Reviewed CXR improved aeration R lung History of Present Illness Nancy Trujillo is a 62 y.o. Nancy Trujillo is a 62 y.o. male Breathing is better Chest pain on R is fairly controlled No diarrhea no N/V no new rash cough about the same, slightly productive Abx Extensive history vanc 01/22 Zosyn 01/22 cresemba micafungin valcyte Estimated Creatinine Clearance: 115 mL/min (based on SCr of 0.41 mg/dL). Medications Scheduled Meds: acetylcysteine (MUCOMYST) 200 mg/mL (20 %) nebulizer solution 3 mL 3 mL Inhalation Q12H albuterol 0.083% (PROVENTIL; VENTOLIN) nebulizer solution 2.5 mg 2.5 mg Inhalation Q12H ascorbic acid (VITAMIN C) tablet 500 mg 500 mg Oral QDAY cholecalciferol (VITAMIN D-3) tablet 400 Units 400 Units Oral QDAY digoxin (LANOXIN) tablet 250 mcg 250 mcg Oral QDAY docusate (COLACE) capsule 200 mg 200 mg Oral BID dornase merlyn (PULMOZYME) 5 mg in water (sterile) for injection 30 mL intrapleural syringe 5 mg Intrapleural BID fluticasone (FLONASE) nasal spray 2 spray 2 [...] mg 40 mg Oral QDAY(21) piperacillin/tazobactam (ZOSYN) 4.5 g in sodium chloride 0.9% (NS) 100 mL IVPB ( MB+) 4.5 g Intravenous Q6H* polyethylene glycol 3350 (MIRALAX) packet 17 g 1 packet Oral BID senna (SENOKOT) tablet 2 tablet 2 tablet Oral BID sodium chloride PF 0.9% flush 30 mL 30 mL Intravenous FLUSH TID thiamine mononitrate tablet 100 mg 100 mg Oral QDAY umeclidinium-vilanterol (ANORO ELLIPTA) 62.5-25 mcg/actuation inhaler 1 puff 1 puff Inhalation QDAY valGANciclovir (VALCYTE) tablet 900 mg 900 mg Oral BID w/meals vancomycin (VANCOCIN) 1,250 mg in dextrose 5% (D5W) IVPB 1,250 mg Intravenous Q12H* vitamin A & D topical ointment Topical QDAY vitamins, multi w/minerals tablet 1 tablet 1 tablet Oral QDAY Continuous Infusions: PRN and Respiratory Meds:acetaminophen Q4H PRN, alteplase BID PRN, HYDROcodone/ acetaminophen Q6H PRN, ketorolac (TORADOL) 15-30 mg injection Q6H PRN, magnesium sulfate PRN AND Magnesium PRN AND Notify Physician Ongoing, potassium chloride SR PRN OR potassium chloride PRN, vancomycin, pharmacy to manage Per Pharmacy Physical Examination Vital Signs: Last Vital Signs: 24 Hour Range BP: 97/69 (01/25 1100) Temp: 36.6 C (97.9 F) (01/25 0800) Pulse: 93 (01/25 1100) Respirations: 27 PER MINUTE (01/25 1100) SpO2: 100 % (01/25 1100) O2 Delivery: High Flow Nasal Cannula (01/25 1100) SpO2 Pulse: 55 (01/25 1100) BP: (91-151)/(58-140) Temp: [36.3 C (97.4 F)-36.6 C (97.9 F)] Pulse: [84-115] Respirations: [16 PER MINUTE-37 PER MINUTE] SpO2: [91 %-100 %] O2 Delivery: High Flow Nasal Cannula General: Alert, cooperative, in mild distress Head: Normocephalic, without obvious abnormality, atraumatic Throat: Lips, mucosa and tongue normal. no thrush Lungs: minimal BS on R, 2 chest tubes with cloudy fluid Heart: Regular rate and rhythm Abdomen: Soft, slightly tender in the right upper quadrant Extremities: Extremities normal, atraumatic, no rash, no erythema, there is a minimal superficial ulcer on the medial left thigh, not infected some bruises Skin: Skin color, texture, turgor normal. Neurologic: Diffuse weakness Lab Review Hematology Recent Labs 01/23/1833901/24/1831401/25/18 0338 WBC 28.8* 14.4* 12.9* HGB 10.1* 9.3* 8.9* HCT 31.5* 28.9* 28.1* PLTCT 572* 403* 428* Chemistry Recent Labs 01/23/18 0340 01/23/18 1810 01/24/18 0315 01/25/18 0338 NA 134* -- -- 133* 134* K 3.3* < > 4.2 4.4 4.5 CL 99 -- -- 102 103 CO2 27 -- -- 28 29 BUN 11 -- -- 9 6* CR 0.64 -- -- 0.56 0.41 GFR >60 -- -- >60 >60 GLU 152* -- -- 121* 106* CA 8.1* -- -- 8.0* 8.0* PO4 3.1 -- -- 2.8 3.2 ALBUMIN 2.2* -- -- 2.1* -- ALKPHOS 120* -- -- 93 -- AST 16 -- -- 31 -- ALT 17 -- -- 20 -- TOTBILI 0.3 -- -- 0.2* -- < >=values in this interval not displayed. Microbiology, Radiology and other Diagnostics Review Microbiology data reviewed. Pertinent radiology images viewed. Impression: Fco Messina MD Pager [phone] Infectious Diseases Faculty NESS TRANSFORMATION CONSULTANT * Abimbola Welsh, PT - 01/25/2018 9:31 AM BUSINESS TRANSFORMATION CONSULTANT PHYSICAL THERAPY PROGRESS NOTE SUBJECTIVE: Subjective Significant hospital events: PMHx includes: HTN, HLD, CAD s/p PCI 2012, CHF, tobacco use, COPD on 2-3L qHS, Afib w/ recent prolonged hospitalization for legionella & aspergillosis pneumonia as well as +CMV/HSV in BAL c/b inability to wean from the vent requiring trach/PEG (both tubes now removed) & R chest tube placement & PEA arrest from mucus plug. Discharged to rehab 12/31. Admitted to the floor from rehab on 01/21 w/ worsening tachycardia, leukocytosis & fever. CT chest showed new loculated R hydropneumothorax & consolidation. Transferred to ICU for chest tube placement & increasing O2 requirements. Underwent pigtail placement x2 to R anterior space & R posterior space, started TPA/dornase. Mental / Cognitive Status: Alert;Cooperative Persons Present: RehabTechnician(RN) Pain: Patient complains of pain;Patient does not rate pain Pain Location: Right;Chest(chest tube sites) Pain Interventions: Patient agrees to participate in therapy Comments: 3L O2 NC at rest, required titration to 4.5L O2 NC with activity and remained on this at end of session, RN at bedside Comments: RN reports patient was very fatigued yesterday after time up in chair , slept much of the day. Ambulation Assist: Independent Mobility in Community without Device(prior to hospital admission this fall, since required assist) Patient Owned Equipment: (will need to confirm has his own 4 wheeled walker) Home Situation: Lives with Family Type of Home: House Entry Stairs: 3-5 Stairs(5, family arranging for handrail to be added this week) In-Home Stairs: Able to Live on One Level(family arranging for addition of shower to main level bathroom) Comments: Patient reports he was able to ambulate from his room on rehab to the gym with 4 wheeled walker. He reports he was also working on stairs. BED MOBILITY/TRANSFERS: Bed Mobility/Transfers Bed Mobility: Supine to Sit: Minimal Assist;Head of Bed Elevated(HOB appx. 20 degrees, only CGA as a precaution) Transfer Type: Stand Pivot Transfer: Assistance Level: To;Bed Side Chair;Minimal Assist Transfer: Assistive Device: Hand Hold Assist Transfers: Type Of Assistance: Requires Extra Time Other Transfer Type: Sit to/from Stand Other Transfer: Assistance Level: To/From;Bed Side Chair;Minimal Assist;x2 People(likely could have been 1 but prep assist x2 for gait) Other Transfer: Assistive Device: Hand Hold Assist End Of Activity Status: Up in Chair;Nursing Notified;Instructed Patient to Request Assist with Mobility;Instructed Patient to Use Call Light(alarm activated) Comments: VS stable with activity GAIT: Gait Gait Distance: 7 feet Gait: Assistance Level: Minimal Assist;x2 People;Management of Lines Gait: Assistive Device: Hand Hold Assist Gait: Descriptors: Pace: Slow Comments: Patient reports feeling weak. EDUCATION: Education Persons Educated: Patient Teaching Methods: Verbal Instruction;Demonstration Patient Response: Verbalized Understanding;Return Demonstration;More Instruction Required Topics: Plan/Goals of PT Interventions;Use of Assistive Device/Orthosis; Mobility Progression;Safety Awareness;Up with Assist Only;Importance of Increasing Activity ASSESSMENT/PROGRESS: Assessment/Progress Impaired Mobility Due To: Decreased Strength;Impaired Balance;Decreased Activity Tolerance;Deconditioning;Medical Status Limitation Assessment/Progress: Should Improve w/ Continued PT Patient continues to demonstrate proximal weakness during functional activities but overall strength improved from previous ICU admission. AM-PAC 6 Clicks Basic Mobility Inpatient Turning from your back to your side while in a flat bed without using bed rails : None Moving from lying on your back to sitting on the side of a flatbed without using bedrails : A Little Moving to and from a bed to a chair (including a wheelchair): A Little Standing up from a chair using your arms (e.g. wheelchair, or bedside chair): A Little To walk in hospital room: A Little Climbing 3-5 steps with a railing: A Lot Raw Score: 18 Standardized (T-scale) Score: 41.05 Basic Mobility CMS 0-100%: 40.47 CMS G Code Modifier for Basic Mobility: CK GOALS: Goals Goal Formulation: With Patient Pt Will Go Supine To/From Sit: w/ Stand By Assist Pt Will Transfer Sit to Stand: w/ Stand By Assist Pt Will Ambulate: 31-50 Feet, w/ Walker, w/ Minimal Assist Pt Will Go Up / Down Stairs: (will establish at later date as appropriate) PLAN: Plan Treatment Interventions: Mobility Training;Strengthening;Balance Activities; Endurance Training Plan Frequency: 5 Days per Week PT Plan for Next Visit: increase standing balance/strength exercises, progress gait as appropriate RECOMMENDATIONS: PT Discharge Recommendations PT Discharge Recommendations: Inpatient Setting (possible return to rehab?) Recommend ongoing assistance for: Transfers;Bed mobility;Ambulation;Stairs Therapist: Abimbola Welsh, PT, DPT Date: 01/25/2018 NESS TRANSFORMATION CONSULTANT * Yuli Rankin MD - 01/25/2018 9:04 AM BUSINESS TRANSFORMATION CONSULTANT Thoracic Surgery Progress Note 01/25/2018 Patient: Nancy Trujillo Admission date 01/21/2018, LOS: 4 days ASSESSMENT: Nancy Trujillo is a 62 y.o. Male with history of COPD, HTN, HLD, CAF, CHF and afib who presented from rehab with leukocytosis with CT scan showing worsening empyema now s/p chest tube placement Active Problems: CAD (coronary artery disease) Paroxysmal 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 (HCC) S/P ablation of 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 Pneumonia Cytomegalovirus (CMV) viremia (HCC) Loculated pleural effusion Acute on chronic respiratory failure with hypoxia and hypercapnia (HCC) Sepsis (HCC) Pulmonary aspergillosis invasive type (HCC) COPD, severe (HCC) Secondary spontaneous pneumothorax Legionella pneumonia (HCC) Shock (HCC) Atrial fibrillation with RVR (HCC) Empyema of right pleural space (HCC) PLAN: - CXR this morning appears improved from yesterday. - Agree with plan to continue TPA/Donase via chest tube and repeat CT after treatments - Abx per ID recommendations - Rest of care per primary team - Will continue to follow Patient seen and discussed with Dr. Sweeney, who directed the plan of care SUBJECTIVE: No acute events overnight. CXR this morning appears improved. Afebrile overnight. Weaning oxygen requirements. OBJECTIVE: Vital Signs: Last Filed Vital Signs: 24 Hour Range BP: 146/81 (01/25 700) Temp: 36.5 C (97.7 F) (01/25 0400) Pulse: 97 (01/26 816) Respirations: 22 PER MINUTE (01/26 816) SpO2: 97 % (01/25 700) O2 Delivery: High Flow Nasal Cannula (01/25 700) Weight: 74.3 kg (163 lb 12.8 oz) (01/25 600) BP: (91-146)/(58-109) Temp: [36.3 C (97.4 F)-36.6 C (97.8 F)] Pulse: [84-109] Respirations: [16 PER MINUTE-30 PER MINUTE] SpO2: [91 %-100 %] O2 Delivery: High Flow Nasal Cannula Intensity Pain Scale (Self Report): (not recorded) Constitutional: A&O, NAD Pulm: CTAB, unlabored, NC in place. CT posterior with thin serous output. Anterior CT with no output. Cardio: RRR Abdomen: Soft, not tender, not distended Extremities: No C/C/E Recent Labs 01/23/18 0340 01/23/18 1130 01/23/18 1810 01/24/18 0315 01/25/18 0338 HGB 10.1* -- -- 9.3* 8.9* HCT 31.5* -- -- 28.9* 28.1* WBC 28.8* -- -- 14.4* 12.9* PLTCT 572* -- -- 403* 428* NA 134* -- -- 133* 134* K 3.3* 3.1* 4.2 4.4 4.5 CL 99 -- -- 102 103 CO2 27 -- -- 28 29 BUN 11 -- -- 9 6* CR 0.64 -- -- 0.56 0.41 GLU 152* -- -- 121* 106* CA 8.1* -- -- 8.0* 8.0* MG 1.8 1.7 2.7* 2.4 2.2 PO4 3.1 -- -- 2.8 3.2 ALBUMIN 2.2* -- -- 2.1* -- TOTPROT 5.7* -- -- 5.4* -- TOTBILI 0.3 -- -- 0.2* -- AST 16 -- -- 31 -- ALT 17 -- -- 20 -- ALKPHOS 120* -- -- 93 -- Glucose: (!) 106 (01/25/18 033) Intake/Output Summary (Last 24 hours) at 01/25/2018 0905 Last data filed at 01/25/2018 0600 Gross per 24 hour Intake 2213.83 ml Output 1105 ml Net 1108.83 ml Stool Occurrence: 1 Yuli Rankin MD [id number] NESS TRANSFORMATION CONSULTANT * Amy Romero, PHARMD - 01/25/2018 8:30 AM BUSINESS TRANSFORMATION CONSULTANT Pharmacy Vancomycin Note Subjective: Nancy Trujillo is a 62 y.o. male being treated for pneumonia. Objective: Current Vancomycin Orders Medication Dose Route Frequency vancomycin (VANCOCIN) 1,250 mg in dextrose 5% (D5W) IVPB 1,250 mg Intravenous Q12H* vancomycin, pharmacy to manage 1 each Service Per Pharmacy Start Date of Vancomycin therapy: 01/22/2018 Cultures: 01/21 blood cx NGTD, , , White Blood Cells Date/Time Value Ref Range Status 01/25/2018337 12.9 (H) 4.5 - 11.0 K/UL Final 01/24/2018314 14.4 (H) 4.5 - 11.0 K/UL Final 01/23/2018 0340 28.8 (H) 4.5 - 11.0 K/UL Final Creatinine Date/Time Value Ref Range Status 01/25/2018337 0.41 0.4 - 1.24 MG/DL Final 01/24/2018 0315 0.56 0.4 - 1.24 MG/DL Final 01/23/2018 0340 0.64 0.4 - 1.24 MG/DL Final Blood Urea Nitrogen Date/Time Value Ref Range Status 01/25/2018 0338 6 (L) 7 - 25 MG/DL Final Estimated CrCl: 115 Intake/Output Summary (Last 24 hours) at 01/25/2018 0830 Last data filed at 01/25/2018 0600 Gross per 24 hour Intake 2230.83 ml Output 1105 ml Net 1125.83 ml UOP: 975 ml since admission Actual Weight: 74.3 kg (163 lb 12.8 oz) Dosing BW: 71 kg Drug Levels: Vancomycin Trough Date/Time Value Ref Range Status 01/23/20189 16.2 10.0 - 20.0 MCG/ML Final Assessment: Target levels for this patient: 12-17 per ID recs. Plan: 1. Continue vancomycin 1250 mg IV q12h 2. Next scheduled level(s): To be determined 3. Pharmacy will continue to monitor and adjust therapy as needed. Amy Romero PHARMMelony 01/25/2018 NESS TRANSFORMATION CONSULTANT * Magalie Villagomez RN - 01/25/2018 6:39 AM BUSINESS TRANSFORMATION CONSULTANT I have reviewed the notes, assessment, and/or procedures performed by Kierra Montalvo RN and concur with her documentation unless otherwise noted. NESS TRANSFORMATION CONSULTANT * Kierra Montalvo RN - 01/25/2018 6:25 AM BUSINESS TRANSFORMATION CONSULTANT Heart Failure Nursing Progress Note Admission Date: 01/21/2018 LOS: 4 days Admission Weight: 73.7 kg (162 lb 7.7 oz) Most recent weights (inpatient): Vitals: 01/23/18 0600 01/24/18 0500 01/25/18 0600 Weight: 77.7 kg (171 lb 4.8 oz) 74.9 kg (165 lb 2 oz) 74.3 kg (163 lb 12.8 oz) Weight change from previous day: 0.6 kg Fluid restriction ordered: n/a Intake/Output Summary: (Last 24 hours) Intake/Output Summary (Last 24 hours) at 01/25/2018 0625 Last data filed at 01/25/2018 0600 Gross per 24 hour Intake 2264.83 ml Output 1675 ml Net 589.83 ml Is patient incontinent No Anticipated discharge date: TBD Discharge goals: Improve respiratory status. Daily Assessment of Patient Stated Goals: Short Term Goal Identified by patient (Short Term=during hospitalization): Wean O2 NESS TRANSFORMATION CONSULTANT * Henry Flores MD - 01/25/2018 5:58 AM BUSINESS TRANSFORMATION CONSULTANT Pulmonary / Critical Care Progress Note Nancy Trujillo Today's Date: 01/25/2018 Admission Date: 01/21/2018 LOS: 4 days Assessment/Plan: Active Problems: CAD (coronary artery disease) Paroxysmal 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 (HCC) S/P ablation of 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 Pneumonia Cytomegalovirus (CMV) viremia (HCC) Loculated pleural effusion Acute on chronic respiratory failure with hypoxia and hypercapnia (HCC) Sepsis (HCC) Pulmonary aspergillosis invasive type (HCC) COPD, severe (HCC) Secondary spontaneous pneumothorax Legionella pneumonia (HCC) Shock (HCC) Atrial fibrillation with RVR (HCC) Empyema of right pleural space (HCC) Hospital Course 62 y/o M w/ PMHHTN, HLD, CADs/p PCI 2012, CHF,tobacco use,COPD on 2-3L qHS, Afibw/ recent prolonged hospitalization for legionella & aspergillosis pneumonia as well as +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 He was discharged to rehab 12/31. Admitted to the floor from rehab on 01/21w/worsening tachycardia, leukocytosis &fever. CT chest showed new loculated R hydropneumothorax & consolidation.Transferred to ICU for chest tube placement &increasing O2 requirements.Underwent pigtail placement x2 to R anterior space & R posterior space, started TPA/dornase. Repeat CT chest today. Currently tolerating 3L HFNC w/ SpO2 90s. IDfollowing- ABx w/ vanc, zosyn + cresemba, valcyte. NEURO - No acute issues, a&o PULM COPD Acute on Chronic Hypoxic Respiratory Failure InvasivePulmonaryAspergillosis LegionellaPneumonia P.MirabilisPneumonia R sided LoculatedHydropneumothorax - Baseline O2 2-3L qHS - Had prolongedrecenthospitalization for legionella pneumonia, mirabilis pneumonia &necrotizing aspergillosis. Also possible aspiration pneumonia -Had MAC in sputum cx + CMV & HSV in BAL -S/p chest tube 12/16 -12/29. Fluid exudative. Cultures negative. - Had finished treatment w/zosyn,linezolid & micafungin.Was receiving antibiotics micafungin cresemba&valganciclovir -DevelopedFever&leukocytosis 01/21 - CT chest 01/21:development of moderate loculated right pneumothorax w/ anterior &apical component, persistent extensive right lung consolidation c/w pneumonia, slight improvement in mild patchy &nodular left lung opacities - Tx to ICU01/22for chest tube placement & increasing O2 requirements on the floor - PlacedR sided chest tube x2 to anterior space & posterior space & started TPA/dornase to posterior tube - Pleural fluid cell counts: WBC 12,995 neutrophil predominate, exudative fluid , cx ngtd - Anterior CT: 0ml; Posterior CT 480mL - Anterior CT to water seal; posterior tube to suction - Currently tolerating 4L HFNC w/ SpO2 90s Plan - Added anoro, acapella, mucomyst nebs & albuterol prior to mucomyst - CTS following -->no acute surgical intervention indicated at this time given low volume of healthy lung visible on the right side.Recommend IR drainage of inferior fluid collection to follow remaining healthy lung to expand.Will continue to follow along as patient will likely need a staged surgery. Will evaluate CT from today - TPA/dornase through today to posterior CT - repeat CT chest today - Vanc, zosyn, valganciclovir, cresemba - Dcd spiriva/symbicort w/ recurrent respiratory infections; continue mucinex, flonase - Pain control r/t chest tubes w/ toradol & norco CV Hx Paroxysmal Afib Shock (resolved) - S/p ablation 2013 - Had RVR 01/22-01/23 w/ associated hypotension -->started amio gtt & phenyl gtt - Shock likely 2/2 RVR - phenyl weaned off 01/23 afternoon - Lactate negative - Given IVF - Last dig level 1.0 (12/21) Plan - 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 12.5mg BID, digoxin 250mcg daily -Continue to hold xarelto w/ CT in place & possible procedures in near future CAD s/p PCIto RCA 2012 HTN/HLD - ECHO 11/22: LVEF 70%, trace TR, RV normal, trace effusion - 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,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 -Continue ikbmntmntq12.5mg BID, hold 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 lasix (60mg BID) for today AAA -CT a/p102/19/17 showingfusiform infrarenal abdominal aortic aneurysm measuring up to 4.9 cm in maximum diameter. -Will need monitoringoutpatient GI - Last BM 01/24 - Regular diet - Colace/senna/miralax GERD -Continueprotonix - Zofran w/ meals RENAL - No acute issues - Cr 0.41 - UOP: 550ml - I/O: +864mL/24h; +2.9L for admit - Supportive care ENDO - BG WNL ID InvasivePulmonaryAspergillosis LegionellaPneumonia Possible Aspiration Pneumonia P.MirabilisPneumonia CMV Viremia - Recent prolonged hospitalization for legionella & aspergillosis pneumonia as well as +CMV/HSV in BAL - Also w/ MAC in sputum 12/20/17& proteus in sputum 01/16/18 - WBC 12.9, afebrile - CT chest as above w/ pneumonia - Blood cx 01/21: ngtd - Fungal blood cx 01/21: ngtd - Sputum cx 01/21:contamination - does not meet criteria for culture - Pleural fluid 01/22: WBC 12,995 neutrophil predominate, cx ngtd - Pleural fluid fungal cx ngtd, AFB pending Plan - Vanc, zosyn, valganciclovir, cresemba - ID following HEME Thrombocytosis - May be reactive 2/2 infection - Hgb8.9, qic507 FEN -No IVF -Replace lytes PRN -Regular diet Prophylaxis Review: Lines:PICC (11/20) Tubes/Drains:R chest tube x2 VTE PPX:HoldPTA xarelto, SCDs GI ppx:Protonix Insulin:None PT/OT:Yes Code status:Full Code Dispo:ICU - maybe floor orders later today pending CT findings & CTS plan 55731 x 1 - pt critically ill withshock, empyema in addition to above diagnoses. I [id number] providing critical care services including: performing a physical examination serially reviewing laboratory, telemetry, hemodynamic, oximetry, and respiratory data reviewing radiographic images reviewing medications managing fluids/electrolytes, antibiotics, ICU prophylaxis, andoxygenation developing the overall plan of care. Pt seen & discussed w/ Dr.Latham Chen Kelly [facility] Pulmonary Critical Care Pager [phone] pager [phone] ATTESTATION I personally interviewed and examined the patient. I have reviewed the history , physical, impression and plan outlined by the Nurse Practitioner. The patient resting in bed. Continues to feel better. Pain is better controlled at chest tube sites. No fevers or chills. No nausea or vomiting. On examination: Vitals and I/O's reviewed Neuro-alert and oriented HEENT: OP clear and dry Neck: No lymphadenopathy Chest-clear on left, decreased throughout on right but does have breath sounds today with anterior and posterior CT in place CV-RRR Abd-flat, soft and non-tender Ext- no cyanosis or clubbing Skin- no rashes I personally reviewed pertinent labs and images My impression/plan: 1 Acute on chronic hypoxemic respiratory failure secondary to empyema on the right as well as hydropneumothorax anteriorly. Completed 6 doses of TPA and dornase. Repeat CT scan of the chest today reveals resolution of the anterior hydropneumothorax. There is been improvement in the posterior O lateral pleural effusion but despite TPA and dornase the complex pleural space persists. Called and discussed with thoracic surgery which they will review images further. Is certainly a complex case. Continue posterior chest tube to drainage and discontinue anterior chest tube. 2. Severe sepsis secondary to complicated right lower lobe pneumonia likely bacterial on fungal with empyema. Continue Zosyn and caspofungin. We will discontinue vancomycin and continue to follow cultures. 3. Severe obstructive lung disease with emphysema. Continue Anoro. Patient off inhaled corticosteroid so as not to complicate her increased risk of pneumonia. 4. A-fib with RVR continue beta-manjit Staff name: Henry Flores MD Date: 01/25/2018 Subjective: Pt feeling better this morning, up to a chair. No other subjective complaints. ROS: Minimal SOB, chest discomfort to R chest from tubes, no abdominal pain or nausea Objective: Medications: Scheduled Meds: acetylcysteine (MUCOMYST) 200 mg/mL (20 %) nebulizer solution 3 mL 3 mL Inhalation Q12H alteplase (ACTIVASE) 10 mg in sodium chloride 0.9% (NS) 30 mL intrapleural syringe 10 mg Intrapleural BID And dornase merlyn (PULMOZYME) 5 mg in water (sterile) for injection 30 mL intrapleural syringe 5 mg Intrapleural BID ascorbic acid (VITAMIN C) tablet 500 mg 500 mg Oral QDAY cholecalciferol (VITAMIN D-3) tablet 400 Units 400 Units Oral QDAY digoxin (LANOXIN) tablet 250 mcg 250 mcg Oral QDAY docusate (COLACE) capsule 200 mg 200 mg Oral BID fluticasone (FLONASE) nasal spray 2 spray 2 [...] mg 40 mg Oral QDAY(21) piperacillin/tazobactam (ZOSYN) 4.5 g in sodium chloride 0.9% (NS) 100 mL IVPB ( MB+) 4.5 g Intravenous Q6H* polyethylene glycol 3350 (MIRALAX) packet 17 g 1 packet Oral BID senna (SENOKOT) tablet 2 tablet 2 tablet Oral BID sodium chloride PF 0.9% flush 30 mL 30 mL Intravenous FLUSH TID thiamine mononitrate tablet 100 mg 100 mg Oral QDAY umeclidinium-vilanterol (ANORO ELLIPTA) 62.5-25 mcg/actuation inhaler 1 puff 1 puff Inhalation QDAY valGANciclovir (VALCYTE) tablet 900 mg 900 mg Oral BID w/meals vancomycin (VANCOCIN) 1,250 mg in dextrose 5% (D5W) IVPB 1,250 mg Intravenous Q12H* vitamin A & D topical ointment Topical QDAY vitamins, multi w/minerals tablet 1 tablet 1 tablet Oral QDAY Continuous Infusions: PRN and Respiratory Meds:acetaminophen Q4H PRN, albuterol 0.5% Q4H PRN, alteplase BID PRN, HYDROcodone/acetaminophen Q6H PRN, ketorolac (TORADOL) 15- 30 mg injection Q6H PRN, magnesium sulfate PRN AND Magnesium PRN AND Notify Physician Ongoing, potassium chloride SR PRN OR potassium chloride PRN, vancomycin, pharmacy to manage Per Pharmacy Vital Signs: Last Filed Vital Signs: 24 Hour Range BP: 130/81 (01/25 500) Temp: 36.5 C (97.7 F) (01/26 400) Pulse: 88 (01/25 500) Respirations: 23 PER MINUTE (01/25 500) SpO2: 91 % (01/25 500) O2 Delivery: High Flow Nasal Cannula (01/25 500) SpO2 Pulse: 88 (01/25 500) BP: (91-131)/(58-109) Temp: [36.3 C (97.4 F)-36.7 C (98 F)] Pulse: [84-109] Respirations: [15 PER MINUTE-30 PER MINUTE] SpO2: [91 %-100 %] O2 Delivery: High Flow Nasal Cannula Intensity Pain Scale (Self Report): 3 (01/25/18 040) Vitals: 01/22/18 1247 01/23/18 0600 01/24/18 0500 Weight: 73.7 kg (162 lb 7.7 oz) 77.7 kg (171 lb 4.8 oz) 74.9 kg (165 lb 2 oz) Intake/Output Summary: (Last 24 hours) Intake/Output Summary (Last 24 hours) at 01/25/2018 0558 Last data filed at 01/25/2018 0400 Gross per 24 hour Intake 2281.83 ml Output 1400 ml Net 881.83 ml Physical Exam: General Appearance: No apparent distress, sitting upright in bed Skin: no rashes HEENT:PERRL, MMM Chest and Lungs:Quiet breath sounds in R lung, clear breath sounds in L lung, no wheezing. R chest tubes no air leak, posterior tube w/ serous-serosanguenous fluid drainage Heart:RRR Abdomen:soft, non tender to palpation, +BS Genitourinary:voiding Extremities:warm, trace LEdema, palpable pulses Neurologic:alert &oriented x3, follows commands, able to move all extremities, non-focal LABS: Recent Labs 01/23/18 0340 01/23/18 1130 01/23/18 1810 01/24/18 0315 01/25/18 0338 NA 134* -- -- 133* 134* K 3.3* 3.1* 4.2 4.4 4.5 CL 99 -- -- 102 103 CO2 27 -- -- 28 29 GAP 8 -- -- 3 2* BUN 11 -- -- 9 6* CR 0.64 -- -- 0.56 0.41 GLU 152* -- -- 121* 106* CA 8.1* -- -- 8.0* 8.0* ALBUMIN 2.2* -- -- 2.1* -- MG 1.8 1.7 2.7* 2.4 2.2 PO4 3.1 -- -- 2.8 3.2 Recent Labs 01/23/18 0340 01/24/18 0315 01/25/18 0338 WBC 28.8* 14.4* 12.9* HGB 10.1* 9.3* 8.9* HCT 31.5* 28.9* 28.1* PLTCT 572* 403* 428* AST 16 31 -- ALT 17 20 -- ALKPHOS 120* 93 -- Estimated Creatinine Clearance: 115.9 mL/min (based on SCr of 0.41 mg/dL). Vitals: 01/22/18 1247 01/23/18 0600 01/24/18 0500 Weight: 73.7 kg (162 lb 7.7 oz) 77.7 kg (171 lb 4.8 oz) 74.9 kg (165 lb 2 oz) No results for input(s): PHART, PO2ART in the last 72 hours. Invalid input(s): PC02A 01/21 blood cx NGTD Radiology and Other Diagnostic Procedures Review: Reviewed pertinent studies. NESS TRANSFORMATION CONSULTANT * Beatriz Fonseca RN - 01/24/2018 5:42 PM BUSINESS TRANSFORMATION CONSULTANT Heart Failure Nursing Progress Note Admission Date: 01/21/2018 LOS: 3 days Admission Weight: 73.7 kg (162 lb 7.7 oz) Most recent weights (inpatient): Vitals: 01/22/18 1247 01/23/18 0600 01/24/18 0500 Weight: 73.7 kg (162 lb 7.7 oz) 77.7 kg (171 lb 4.8 oz) 74.9 kg (165 lb 2 oz) Weight change from previous day:-2.8kg Fluid restriction ordered: N Intake/Output Summary: (Last 24 hours) Intake/Output Summary (Last 24 hours) at 01/24/2018 1743 Last data filed at 01/24/2018 1700 Gross per 24 hour Intake 2565.83 ml Output 1465 ml Net 1100.83 ml Is patient incontinent No Anticipated discharge date: unknown Discharge goals: Get stronger, go home by gabe Daily Assessment of Patient Stated Goals: Short Term Goal Identified by patient (Short Term=during hospitalization): Get up to the chair TID NESS TRANSFORMATION CONSULTANT * Henry Flores MD - 01/24/2018 2:22 PM BUSINESS TRANSFORMATION CONSULTANT MICU Critical Care Progress Note Nancy Montero Josue Admission Date: 01/21/2018 LOS: 3 days Assessment/Plan: Active Problems: CAD (coronary artery disease) Paroxysmal 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 (HCC) S/P ablation of 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 Pneumonia Cytomegalovirus (CMV) viremia (HCC) Loculated pleural effusion Acute on chronic respiratory failure with hypoxia and hypercapnia (HCC) Sepsis (HCC) Pulmonary aspergillosis invasive type (HCC) COPD, severe (HCC) Secondary spontaneous pneumothorax Legionella pneumonia (HCC) Shock (HCC) Atrial fibrillation with RVR (HCC) Empyema of right pleural space (HCC) Patient is critically ill secondary to the above diagnoses, but primarily concerned for the followin Acute on chronic hypoxemic respiratory failure secondary to empyema on the right as well as hydropneumothorax anteriorly. 2. Severe sepsis secondary to complicated right lower lobe pneumonia likely bacterial on fungal with empyema. 3. Severe obstructive lung disease with emphysema 4. A-fib with RVR Exam: Vitals and I/O's reviewed Neuro-alert and oriented HEENT: OP clear and dry Neck: No lymphadenopathy Chest-clear on left, decreased throughout on right but does have breath sounds today with anterior and posterior CT in place CV-RRR Abd-flat, soft and non-tender Ext- no cyanosis or clubbing Skin- no rashes I spent 45 minutes evaluating the patient including personally reviewing images , labs, progress and consult notes, discussing with nursing, and examining patient. Plan of care includes the following: -titrate off amiodarone gtt and start beta manjit -holding anticoagulation in setting of TPA/dornase and possible additional procedures. -continue posterior chest tube to drainage with TPA dornase in posterior tube bid x 3 days. Will repeat imaging after completion -anterior chest tube to water seal. -continue broad antimicrobial and antifungal coverage. Will D/c micafungin per ID -appreciate CTS following. -atelectasis on CXR today of RUL. Increase pulm hygiene with flutter valve and mucomyst neb -d/c ICS in setting of recurrent and polymicrobial infection. Start anoro for COPD maintenance. -follow cultures. Henry Flores MD NESS TRANSFORMATION CONSULTANT * Fco Messina MD - 01/24/2018 11:13 AM BUSINESS TRANSFORMATION CONSULTANT Infectious Diseases Progress note Today's Date: 01/24/2018 Admission Date: 01/21/2018 Reason for this consultation: I was asked to provide my opinion and recommendations regarding this 62-year-old man with worsening vascular status extensive emphysema and new pneumothorax on the right side I reviewed the patient record there were extensive and summarized them, I personally viewed the CT scan of the chest from 01/21/2018 showed extensive infiltrate in the right lung and loculated pneumothorax possible necrosis of the lung. 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 Not detected on first BAL, virus detected on 12/21/17 BAL. Significant debility P. mirabilis pneumonia 01/16/18 Recommendations: Continue vanc/Zosyn, follow on pleural culture and sputum culture I think we can stop micafungin and continue cresemba Continue valcyte for now Follow on CT surgery recs Monitor labs for toxicity Patient is critically ill with resp failure, severe pneumonia, empyema Needing ICU monitoring I spent 35 Minutes On this case Providing and personally directing critical care services with diagnostic and antibiotics management. History of Present Illness Nancy Trujillo is a 62 y.o. Nancy Trujillo is a 62 y.o. male Breathing is better after placing chest tubes Chest pain on R is fairly controlled No diarrhea no N/V no new rash cough about the same, slightly productive Abx Extensive history vanc 01/22 Zosyn 12/8 cresemba micafungin valcyte Estimated Creatinine Clearance: 115.9 mL/min (based on SCr of 0.56 mg/dL). Medications Scheduled Meds: acetylcysteine (MUCOMYST) 200 mg/mL (20 %) nebulizer solution 3 mL 3 mL Inhalation Q12H albuterol 0.083% (PROVENTIL; VENTOLIN) nebulizer solution 2.5 mg 2.5 mg Inhalation Q12H alteplase (ACTIVASE) 10 mg in sodium chloride 0.9% (NS) 30 mL intrapleural syringe 10 mg Intrapleural BID And dornase merlyn (PULMOZYME) 5 mg in water (sterile) for injection 30 mL intrapleural syringe 5 mg Intrapleural BID ascorbic acid (VITAMIN C) tablet 500 mg 500 mg Oral QDAY cholecalciferol (VITAMIN D-3) tablet 400 Units 400 Units Oral QDAY digoxin (LANOXIN) tablet 250 mcg 250 mcg Oral QDAY docusate (COLACE) capsule 200 mg 200 mg Oral BID fluticasone (FLONASE) nasal spray 2 spray 2 spray Each Nostril QDAY guaiFENesin LA (MUCINEX) tablet 600 mg 600 mg Oral BID isavuconazonium sulfate (CRESEMBA) capsule 372 mg 372 mg Oral QDAY(21) lidocaine (LIDODERM) 5 % topical patch 1-2 patch 1-2 patch Topical QDAY magnesium oxide (MAG-OX) tablet 400 mg 400 mg Oral BID metoprolol tartrate (LOPRESSOR) tablet 12.5 mg 12.5 mg Oral BID micafungin (MYCAMINE) 150 mg in sodium chloride 0.9% (NS) 110 mL IVPB 150 mg Intravenous Q24H* ondansetron (ZOFRAN) tablet 4 mg 4 mg Oral TID w/ meals pantoprazole DR (PROTONIX) tablet 40 mg 40 mg Oral QDAY(21) piperacillin/tazobactam (ZOSYN) 4.5 g in sodium chloride 0.9% (NS) 100 mL IVPB ( MB+) 4.5 g Intravenous Q6H* polyethylene glycol 3350 (MIRALAX) packet 17 g 1 packet Oral BID senna (SENOKOT) tablet 2 tablet 2 tablet Oral BID sodium chloride PF 0.9% flush 30 mL 30 mL Intravenous FLUSH TID thiamine mononitrate tablet 100 mg 100 mg Oral QDAY [START ON 01/25/2018] umeclidinium-vilanterol (ANORO ELLIPTA) 62.5-25 mcg/ actuation inhaler 1 puff 1 puff Inhalation QDAY valGANciclovir (VALCYTE) tablet 900 mg 900 mg Oral BID w/meals vitamin A & D topical ointment Topical QDAY vitamins, multi w/minerals tablet 1 tablet 1 tablet Oral QDAY Continuous Infusions: PRN and Respiratory Meds:acetaminophen Q4H PRN, alteplase BID PRN, HYDROcodone/ acetaminophen Q6H PRN, ketorolac (TORADOL) 15-30 mg injection Q6H PRN, magnesium sulfate PRN AND Magnesium PRN AND Notify Physician Ongoing, potassium chloride SR PRN OR potassium chloride PRN Physical Examination Vital Signs: Last Vital Signs: 24 Hour Range BP: 108/71 (01/24 0500) Temp: 36.6 C (97.8 F) (01/24 0400) Pulse: 94 (01/24 0809) Respirations: 15 PER MINUTE (01/24 08) SpO2: 99 % (01/24 08) O2 Delivery: High Flow Nasal Cannula (01/24 050) SpO2 Pulse: 94 (01/24 0500) BP: (100-122)/(64-92) Temp: [36.5 C (97.7 F)-36.8 C (98.2 F)] Pulse: [85-107] Respirations: [15 PER MINUTE-33 PER MINUTE] SpO2: [88 %-100 %] O2 Delivery: High Flow Nasal Cannula General: Alert, cooperative, in mild distress from SOB Head: Normocephalic, without obvious abnormality, atraumatic Eyes: Conjunctivae/corneas clear. PERRL, EOMs intact. No subconjuntival hemorrhages. Throat: Lips, mucosa and tongue normal. no thrush Neck: Supple, symmetrical, trachea midline, no rigidity Lungs: minimal BS on R, 2 chest tubes with serosanguinolant fluid Heart: Regular rate and rhythm Abdomen: Soft, slightly tender in the right upper quadrant Extremities: Extremities normal, atraumatic, no rash, no erythema, there is a minimal superficial ulcer on the medial left thigh, not infected some bruises Skin: Skin color, texture, turgor normal. Lymph nodes: Cervical, supraclavicular and axillary nodes normal Neurologic: Diffuse weakness Lab Review Hematology Recent Labs 01/22/186 01/23/18 0340 01/24/18 0315 WBC 24.4* 28.8* 14.4* HGB 9.7* 10.1* 9.3* HCT 29.9* 31.5* 28.9* PLTCT 423* 572* 403* Chemistry Recent Labs 01/22/18 0456 01/23/18 0340 01/23/18 1130 01/23/18 1810 01/24/18 0315 NA 132* 134* -- -- 133* K 3.5 3.3* 3.1* 4.2 4.4 CL 95* 99 -- -- 102 CO2 31* 27 -- -- 28 BUN 8 11 -- -- 9 CR 0.47 0.64 -- -- 0.56 GFR >60 >60 -- -- >60 GLU 82 152* -- -- 121* CA 8.7 8.1* -- -- 8.0* PO4 3.4 3.1 -- -- 2.8 ALBUMIN 2.5* 2.2* -- -- 2.1* ALKPHOS 115* 120* -- -- 93 AST 16 16 -- -- 31 ALT 28 17 -- -- 20 TOTBILI 0.4 0.3 -- -- 0.2* Microbiology, Radiology and other Diagnostics Review Microbiology data reviewed. Pertinent radiology images viewed. Impression: Fco Messina MD Pager [phone] Infectious Diseases Faculty NESS TRANSFORMATION CONSULTANT * Abimbola Welsh, PT - 01/24/2018 11:10 AM BUSINESS TRANSFORMATION CONSULTANT PHYSICAL THERAPY ASSESSMENT SUBJECTIVE: Subjective Significant hospital events: PMHx includes: HTN, HLD, CAD s/p PCI 2012, CHF, tobacco use, COPD on 2-3L qHS, Afib w/ recent prolonged hospitalization for legionella & aspergillosis pneumonia as well as +CMV/HSV in BAL c/b inability to wean from the vent requiring trach/PEG (both tubes now removed) & R chest tube placement & PEA arrest from mucus plug. Discharged to rehab 12/31. Admitted to the floor from rehab on 01/21 w/ worsening tachycardia, leukocytosis & fever. CT chest showed new loculated R hydropneumothorax & consolidation. Transferred to ICU for chest tube placement & increasing O2 requirements. Underwent pigtail placement x2 to R anterior space & R posterior space, started TPA/dornase. Mental / Cognitive Status: Alert;Oriented;Cooperative Persons Present: (RN at end of session) Pain: Patient complains of pain;Patient does not rate pain Pain Location: Right;Ribs(during bed mobility moving from supine>sit) Pain Interventions: Patient agrees to participate in therapy with modifications to session Comments: 8L O2 HFNC Ambulation Assist: Independent Mobility in Community without Device(prior to hospital admission this fall) since has required assist for all ADLs and mobility Patient Owned Equipment: (will need to confirm has his own 4 wheeled walker) Home Situation: Lives with Family Type of Home: House Entry Stairs: 3-5 Stairs(5) family arranging for handrail to be added this week In-Home Stairs: Able to Live on One Level (family arranging for addition of shower to main level bathroom) Comments: Patient reports he was able to ambulate from his room on rehab to the gym with 4 wheeled walker. He reports he was also working on stairs. ROM: ROM ROM Position Assessed: Supine;Seated ROM Method: Active LE ROM: Bilateral;WFL STRENGTH: Strength Overall Strength: Generalized Weakness(for formal assessment of strength this visit) BED MOBILITY/TRANSFERS: Bed Mobility/Transfers Bed Mobility: Supine to Sit: Minimal Assist;Head of Bed Elevated(up to right side) Transfer Type: Stand Pivot Transfer: Assistance Level: To;Bed Side Chair;Minimal Assist Transfer: Assistive Device: Hand Hold Assist Transfers: Type Of Assistance: Requires Extra Time End Of Activity Status: Up in Chair;Nursing Notified;Instructed Patient to Request Assist with Mobility;Instructed Patient to Use Call Light(alarm activated) Comments: Patient agreeable to goal of remaining up in chair for 1 hour and to get up again later today with assist from nursing staff. ACTIVITY/EXERCISE: Activity / Exercise Sit Edge Of Bed: 8 minutes(approximate) Sit Edge Of Bed Assist: Stand By Assist Stand At Bedside : (30 seconds) Stand At Bedside Assist: Minimal Assist Comments: VS stable with activity. Patient did report some nausea initially upon sitting up, resolved with time prior to standing. EDUCATION: Education Persons Educated: Patient Teaching Methods: Verbal Instruction;Demonstration Patient Response: Verbalized Understanding;Return Demonstration;More Instruction Required Topics: Plan/Goals of PT Interventions;Use of Assistive Device/Orthosis; Mobility Progression;Safety Awareness;Up with Assist Only;Importance of Increasing Activity Comments: Patient agreeable to goal for gait assessment next visit. ASSESSMENT/PROGRESS: Assessment/Progress Impaired Mobility Due To: Decreased Strength;Impaired Balance;Decreased Activity Tolerance;Deconditioning;Medical Status Limitation Assessment/Progress: Should Improve w/ Continued PT AM-PAC 6 Clicks Basic Mobility Inpatient Turning from your back to your side while in a flat bed without using bed rails : None Moving from lying on your back to sitting on the side of a flatbed without using bedrails : A Little Moving to and from a bed to a chair (including a wheelchair): A Little Standing up from a chair using your arms (e.g. wheelchair, or bedside chair): A Little To walk in hospital room: A Little Climbing 3-5 steps with a railing: A Lot Raw Score: 18 Standardized (T-scale) Score: 41.05 Basic Mobility CMS 0-100%: 40.47 CMS G Code Modifier for Basic Mobility: CK GOALS: Goals Goal Formulation: With Patient Pt Will Go Supine To/From Sit: w/ Stand By Assist Pt Will Transfer Sit to Stand: w/ Stand By Assist Pt Will Ambulate: 31-50 Feet, w/ Walker, w/ Minimal Assist Pt Will Go Up / Down Stairs: (will establish at later date as appropriate) PLAN: Plan Treatment Interventions: Mobility Training;Strengthening;Balance Activities; Endurance Training Plan Frequency: 5 Days per Week PT Plan for Next Visit: Assess gait if appropriate, standing balance/strength exercises RECOMMENDATIONS: PT Discharge Recommendations PT Discharge Recommendations: Inpatient Setting (possible return to rehab?) Recommend ongoing assistance for: Transfers;Bed mobility;Ambulation;Stairs G-Codes: Mobility G8978 Current Status: 40-59% Impairment G8979 Goal Status: 20-39% Impairment Based on above evaluation and clinical judgment. Therapist: Abimbola Welsh PT, DPT Date: 01/24/2018 NESS TRANSFORMATION CONSULTANT * Samara Kelly APRN - 01/24/2018 10:57 AM BUSINESS TRANSFORMATION CONSULTANT Pulmonary / Critical Care Progress Note Nancy Trujillo Today's Date: 01/24/2018 Admission Date: 01/21/2018 LOS: 3 days Assessment/Plan: Active Problems: CAD (coronary artery disease) Paroxysmal 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 (HCC) S/P ablation of 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 Pneumonia Cytomegalovirus (CMV) viremia (HCC) Loculated pleural effusion Acute on chronic respiratory failure with hypoxia and hypercapnia (HCC) Sepsis (HCC) Pulmonary aspergillosis invasive type (HCC) COPD, severe (HCC) Secondary spontaneous pneumothorax Legionella pneumonia (HCC) Shock (HCC) Atrial fibrillation with RVR (HCC) Empyema of right pleural space (HCC) Hospital Course 62 y/o M w/ PMHHTN, HLD, CADs/p PCI 2012, CHF,tobacco use,COPD on 2-3L qHS, Afibw/ recent prolonged hospitalization for legionella & aspergillosis pneumonia as well as +CMV/HSV in BAL c/b inability to wean from the vent requiring trach/PEG (both tubes now removed) & R chest tube placement & PEA arrest from mucus plug. He was discharged to rehab 12/31. Admitted to the floor from rehab on 01/21w/worsening tachycardia, leukocytosis & fever. CT chest showed new loculated R hydropneumothorax & consolidation. Transferred to ICU for chest tube placement &increasing O2 requirements. Underwent pigtail placement x2 to R anterior space & R posterior space, started TPA/dornase. Plan to repeat CT chest tomorrow. Currently tolerating 6-9L HFNC w/ SpO2 90s. ID following - ABx broadened to zosyn + cresemba, micafungin, valcyte. NEURO - No acute issues, a&o PULM COPD Acute on Chronic Hypoxic Respiratory Failure InvasivePulmonaryAspergillosis LegionellaPneumonia P.MirabilisPneumonia R sided Loculated Hydropneumothorax - Baseline O2 2-3L qHS - Had prolongedrecenthospitalization for legionella pneumonia, mirabilis pneumonia &necrotizing aspergillosis. Also possible aspiration pneumonia -Had MAC in sputum cx + CMV & HSV in BAL -S/p chest tube 12/16 -12/29. Fluid exudative. Cultures negative. - Had finished treatment w/zosyn,linezolid & micafungin.Was receiving antibiotics micafungin cresemba&valganciclovir -DevelopedFever&leukocytosis 01/21 - CT chest 01/21:development of moderate loculated right pneumothorax w/ anterior &apical component, persistent extensive right lung consolidation c/w pneumonia, slight improvement in mild patchy &nodular left lung opacities - Tx to ICU 01/22 for chest tube placement & increasing O2 requirements on the floor - Placed R sided chest tube x2 to anterior space & posterior space & started TPA /dornase - Pleural fluid cell counts: WBC 12,995 neutrophil predominate, exudative fluid , cx ngtd - Anterior CT: 0ml; Posterior CT 590mL - Currently tolerating 9L HFNC w/ SpO2 90s Plan - CXR appears worse today ->added acapella, mucomyst nebs & albuterol prior to mucomyst - Added anoro - CTS following --> no acute surgical intervention indicated at this time given low volume of healthy lung visible on the right side.Recommend IR drainage of inferior fluid collection to follow remaining healthy lung to expand.Will continue to follow along as patient will likely need a staged surgery - Posterior tube to wall suction, anterior tube to water seal - TPA/dornase through Wednesday then will repeat CT tomorrow - Zosyn, valganciclovir, micafungin, cresemba - Repeat CXR in AM - Continue spiriva, mucinex, flonase, symbicort CV Hx Paroxysmal Afib Shock (resolved) - S/p ablation 2013 - Had RVR 01/22-01/23 w/ associated hypotension -->started amio gtt & phenyl gtt - Shock likely 2/2 RVR - phenyl weaned off 01/23 afternoon - Lactate negative - Given 1L IVF - Last dig level 1.0 (12/21) Plan - 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 -Will need monitoringoutpatient GI - Last BM 01/24 - Regular diet - Colace/senna/miralax (has been refusing miralax) GERD -Continueprotonix - Zofran w/ meals RENAL - No acute issues - Cr 0.56 - UOP: 575ml - I/O: +3.3L/24h; +2L for admit - Supportive care ENDO - BG WNL ID InvasivePulmonaryAspergillosis LegionellaPneumonia Possible Aspiration Pneumonia P.MirabilisPneumonia CMV Viremia - Recent prolonged hospitalization for legionella & aspergillosis pneumonia as well as +CMV/HSV in BAL - Also w/ MAC in sputum 12/20/17 & proteus in sputum 01/16/18 - WBC 14.4, afebrile - CT chest as above w/ pneumonia - Blood cx 01/21: ngtd - Fungal blood cx 01/21: pending - Sputum cx 01/21: contamination - does not meet criteria for culture - Pleural fluid 01/22: WBC 12,995 neutrophil predominate, cx ngtd - Pleural fluid fungal cx, AFB pending Plan - Zosyn, valganciclovir, micafungin, cresemba - ID following HEME Thrombocytosis - May be reactive 2/2 infection - Hgb 9.3, plt 403 FEN -No IVF -Replace lytes PRN -Regular diet Prophylaxis Review: Lines:PICC (11/20) Tubes/Drains:R chest tube x2 VTE PPX:Hold 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 I spent 40 minutes providing critical care services including: performing a physical examination serially reviewing laboratory, telemetry, hemodynamic, oximetry, and respiratory data reviewing radiographic images reviewing medications managing fluids/electrolytes, antibiotics, ICU prophylaxis, and oxygenation developing the overall plan of care. Pt seen & discussed w/ Dr. Mark Kelly [facility] Pulmonary Critical Care Pager [phone] pager [phone] Subjective: Pt doing well this morning, no overnight events. Has some pain to his R chest that improves w/ pain medication. ROS: minimal SOB, R chest discomfort r/t tube, no abdominal pain/nausea, tolerating diet, wants to get up to a chair today Objective: Medications: Scheduled Meds: alteplase (ACTIVASE) 10 mg in sodium chloride 0.9% (NS) 30 mL intrapleural syringe 10 mg Intrapleural BID And dornase merlyn (PULMOZYME) 5 mg in water (sterile) for injection 30 mL intrapleural syringe 5 mg Intrapleural BID ascorbic acid (VITAMIN C) tablet 500 mg 500 mg Oral QDAY budesonide/formoterol (SYMBICORT HFA) 160/4.5 mcg inhalation 2 puff 2 puff Inhalation BID cholecalciferol (VITAMIN D-3) tablet 400 Units 400 Units Oral QDAY digoxin (LANOXIN) tablet 250 mcg 250 mcg Oral QDAY docusate (COLACE) capsule 200 mg 200 mg Oral BID fluticasone (FLONASE) nasal spray 2 spray 2 spray Each Nostril QDAY guaiFENesin LA (MUCINEX) tablet 600 mg 600 mg Oral BID isavuconazonium sulfate (CRESEMBA) capsule 372 mg 372 mg Oral QDAY(21) lidocaine (LIDODERM) 5 % topical patch 1-2 patch 1-2 patch Topical QDAY magnesium oxide (MAG-OX) tablet 400 mg 400 mg Oral BID micafungin (MYCAMINE) 150 mg in sodium chloride 0.9% (NS) 110 mL IVPB 150 mg Intravenous Q24H* ondansetron (ZOFRAN) tablet 4 mg 4 mg Oral TID w/ meals pantoprazole DR (PROTONIX) tablet 40 mg 40 mg Oral QDAY(21) piperacillin/tazobactam (ZOSYN) 4.5 g in sodium chloride 0.9% (NS) 100 mL IVPB ( MB+) 4.5 g Intravenous Q6H* polyethylene glycol 3350 (MIRALAX) packet 17 g 1 packet Oral BID senna (SENOKOT) tablet 2 tablet 2 tablet Oral BID sodium chloride PF 0.9% flush 30 mL 30 mL Intravenous FLUSH TID thiamine mononitrate tablet 100 mg 100 mg Oral QDAY tiotropium (SPIRIVA) capsule for inhaler 1 capsule 1 capsule Inhalation QDAY valGANciclovir (VALCYTE) tablet 900 mg 900 mg Oral BID w/meals vancomycin (VANCOCIN) 1,250 mg in dextrose 5% (D5W) IVPB 1,250 mg Intravenous Q12H* vitamin A & D topical ointment Topical QDAY vitamins, multi w/minerals tablet 1 tablet 1 tablet Oral QDAY Continuous Infusions: amiodarone (CORDARONE) 360 mg in dextrose, iso-osm 200 mL infusion 0.5 mg/ min (01/23/18 1940) phenylephrine (BAKARI-SYNEPHRINE) 10 mg in sodium chloride 0.9% (NS) 250 mL IV drip (std conc) Stopped (01/23/18 1251) PRN and Respiratory Meds:acetaminophen Q4H PRN, albuterol Q4H PRN, alteplase BID PRN, aluminum/magnesium hydroxide Q4H PRN, HYDROcodone/acetaminophen Q6H PRN , HYDROmorphone (DILAUDID) injection Q4H PRN, ketorolac (TORADOL) 15-30 mg injection Q6H PRN, magnesium sulfate PRN AND Magnesium PRN AND Notify Physician Ongoing, melatonin QHS PRN, potassium chloride SR PRN OR potassium chloride PRN, [DISCONTINUED] vancomycin IVPB Q12H* AND vancomycin, pharmacy to manage Per Pharmacy Vital Signs: Last Filed Vital Signs: 24 Hour Range BP: 108/71 (01/24 500) Temp: 36.6 C (97.8 F) (01/24 0400) Pulse: 93 (01/24 0500) Respirations: 18 PER MINUTE (01/24 0500) SpO2: 93 % (01/24 500) O2 Delivery: High Flow Nasal Cannula (01/24 500) SpO2 Pulse: 94 (01/24 050) BP: (91-122)/(64-92) Temp: [36.5 C (97.7 F)-36.8 C (98.2 F)] Pulse: [79-107] Respirations: [18 PER MINUTE-33 PER MINUTE] SpO2: [88 %-100 %] O2 Delivery: High Flow Nasal Cannula Intensity Pain Scale (Self Report): 5 (01/24/18 0400) Vitals: 01/22/18 1247 01/23/18 0600 01/24/18 0500 Weight: 73.7 kg (162 lb 7.7 oz) 77.7 kg (171 lb 4.8 oz) 74.9 kg (165 lb 2 oz) Intake/Output Summary: (Last 24 hours) Intake/Output Summary (Last 24 hours) at 01/24/2018 0600 Last data filed at 01/24/2018 0500 Gross per 24 hour Intake 4554.35 ml Output 1165 ml Net 3389.35 ml Physical Exam: General Appearance: No apparent distress, laying in bed resting Skin: no rashes HEENT:PERRL, MMM Chest and Lungs:Quiet breath sounds in R lung, clear breath sounds in L lung, no wheezing. R chest tubes no air leak w/ serous-serosanguenous fluid drainage Heart:RRR Abdomen:soft, non tender to palpation, +BS Genitourinary:voiding Extremities:warm, trace LE jacqueline, palpable pulses Neurologic:alert &oriented x3, follows commands, able to move all extremities, non-focal LABS: Recent Labs 01/21/18 2256 01/22/18 0456 01/23/18 0340 01/23/18 1130 01/23/18 1810 01/24/18 0315 NA 130* 132* 134* -- -- 133* K 3.5 3.5 3.3* 3.1* 4.2 4.4 CL 94* 95* 99 -- -- 102 CO2 30 31* 27 -- -- 28 GAP 6 6 8 -- -- 3 BUN 7 8 11 -- -- 9 CR 0.49 0.47 0.64 -- -- 0.56 GLU 103* 82 152* -- -- 121* CA 8.5 8.7 8.1* -- -- 8.0* ALBUMIN -- 2.5* 2.2* -- -- 2.1* MG -- 1.7 1.8 1.7 2.7* 2.4 PO4 -- 3.4 3.1 -- -- 2.8 Recent Labs 01/22/18 0456 01/23/18 0340 01/24/18 0315 WBC 24.4* 28.8* 14.4* HGB 9.7* 10.1* 9.3* HCT 29.9* 31.5* 28.9* PLTCT 423* 572* 403* AST 16 16 31 ALT 28 17 20 ALKPHOS 115* 120* 93 Estimated Creatinine Clearance: 115.9 mL/min (based on SCr of 0.56 mg/dL). Vitals: 01/22/18 1247 01/23/18 0600 01/24/18 0500 Weight: 73.7 kg (162 lb 7.7 oz) 77.7 kg (171 lb 4.8 oz) 74.9 kg (165 lb 2 oz) No results for input(s): PHART, PO2ART in the last 72 hours. Invalid input(s): PC02A 01/21 blood cx NGTD Radiology and Other Diagnostic Procedures Review: Reviewed pertinent studies. NESS TRANSFORMATION CONSULTANT * Kierra Delvalle RN - 01/24/2018 7:31 AM BUSINESS TRANSFORMATION CONSULTANT I have reviewed the notes, assessment, and/or procedures performed by Kierra Montalvo and concur with her/his documentation unless otherwise noted. NESS TRANSFORMATION CONSULTANT * Kierra Montalvo RN - 01/24/2018 6:30 AM BUSINESS TRANSFORMATION CONSULTANT Heart Failure Nursing Progress Note Admission Date: 01/21/2018 LOS: 3 days Admission Weight: 73.7 kg (162 lb 7.7 oz) Most recent weights (inpatient): 74.9 kg Vitals: 01/22/18 1247 01/23/18 0600 01/24/18 0500 Weight: 73.7 kg (162 lb 7.7 oz) 77.7 kg (171 lb 4.8 oz) 74.9 kg (165 lb 2 oz) Weight change from previous day: 2.8 kg Fluid restriction ordered: n/a Intake/Output Summary: (Last 24 hours) Intake/Output Summary (Last 24 hours) at 01/24/2018 0631 Last data filed at 01/24/2018 0500 Gross per 24 hour Intake 4554.35 ml Output 1165 ml Net 3389.35 ml Is patient incontinent No Anticipated discharge date: TBD Discharge goals: improvement in respiratory status Daily Assessment of Patient Stated Goals: Short Term Goal Identified by patient (Short Term=during hospitalization): Get out of bed. Move around more. NESS TRANSFORMATION CONSULTANT * Henry Mendoza RN - 01/23/2018 6:40 PM BUSINESS TRANSFORMATION CONSULTANT Heart Failure Nursing Progress Note Admission Date: 01/21/2018 LOS: 2 days Admission Weight: 73.7 kg (162 lb 7.7 oz) Most recent weights (inpatient): Vitals: 01/22/18 1247 01/23/18 0600 Weight: 73.7 kg (162 lb 7.7 oz) 77.7 kg (171 lb 4.8 oz) Weight change from previous day:+4 Fluid restriction ordered: NA Intake/Output Summary: (Last 24 hours) Intake/Output Summary (Last 24 hours) at 01/23/2018 1840 Last data filed at 01/23/2018 1700 Gross per 24 hour Intake 5640.31 ml Output 3310 ml Net 2330.31 ml Is patient incontinent No Anticipated discharge date: TBD Discharge goals: monitor chest tube drainage, control pneumothorax Daily Assessment of Patient Stated Goals: Short Term Goal Identified by patient (Short Term=during hospitalization): Keep strength, increase nutrition, control pain NESS TRANSFORMATION CONSULTANT * Henry Mendoza RN - 01/23/2018 4:09 PM BUSINESS TRANSFORMATION CONSULTANT 0730 Assumed pt care at this time. Bedside safety check performed, plan of care reviewed. Physical assessment complete, please see ICU flowsheet for details. VSS. Will continue to monitor. 1200 Assessment complete per ICU flowsheet. VSS. No other changes from initial assessment. Will continue to monitor. 1251 Phenyl turned off. 1530 Pt wasn't ready to walk in room, but did perform some range of motion/ resistance with lower extremities. Pt desatted to the 70s with moderate effort and required 12L HFNC to recover. 1600 Assessment complete per ICU flowsheet. VSS. No other changes from initial assessment. Will continue to monitor. NESS TRANSFORMATION CONSULTANT * Henry Flores MD - 01/23/2018 11:52 AM BUSINESS TRANSFORMATION CONSULTANT MICU Critical Care Progress Note Nancy Trujillo Admission Date: 01/21/2018 LOS: 2 days Assessment/Plan: Active Problems: CAD (coronary artery disease) Paroxysmal 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 (HCC) S/P ablation of 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 Pneumonia Cytomegalovirus (CMV) viremia (HCC) Loculated pleural effusion Acute on chronic respiratory failure with hypoxia and hypercapnia (HCC) Sepsis (HCC) Pulmonary aspergillosis invasive type (HCC) COPD, severe (HCC) Secondary spontaneous pneumothorax Legionella pneumonia (HCC) Shock (HCC) Atrial fibrillation with RVR (HCC) Empyema of right pleural space (HCC) Patient is critically ill secondary to the above diagnoses, but primarily concerned for the followin acute on chronic hypoxemic respiratory failure secondary to empyema on the right as well as hydropneumothorax anteriorly. 2. Severe sepsis secondary to complicated right lower lobe pneumonia likely bacterial on fungal with empyema. 3. Severe obstructive lung disease with emphysema 4. A-fib with RVR Exam: Vitals and I/O's reviewed Neuro-alert and oriented HEENT: OP clear and dry Neck: No lymphadenopathy Chest-clear on left, decreased throughout on right but does have breath sounds today with anterior and posterior CT in place CV-RRR Abd-flat, soft and non-tender Ext- no cyanosis or clubbing Skin- no rashes I spent 45 minutes evaluating the patient including personally reviewing images , labs, progress and consult notes, discussing with nursing, and examining patient. Plan of care includes the following: -continue amiodarone gtt for rate control for 24 hours. -holding anticoagulation in setting of TPA/dornase and possible additional procedures. -continue chest tubes to drainage with TPA dornase in posterior tube bid x 3 days. Will repeat imaging after completion -continue broad antimicrobial and antifungal coverage. -appreciate CTS following. -volume resuscitated by NICOM -hold diuretics. -wean pressors as tolerated -follow cultures. Henry Flores MD NESS TRANSFORMATION CONSULTANT * Samara Kelly APRN - 01/23/2018 10:44 AM BUSINESS TRANSFORMATION CONSULTANT Pulmonary / Critical Care Progress Note Nancy Montero Josue Today's Date: 01/23/2018 Admission Date: 01/21/2018 LOS: 2 days Assessment/Plan: Active Problems: CAD (coronary artery disease) Paroxysmal 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 (HCC) S/P ablation of 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 Pneumonia Cytomegalovirus (CMV) viremia (HCC) Loculated pleural effusion Acute on chronic respiratory failure with hypoxia and hypercapnia (HCC) Sepsis (HCC) Pulmonary aspergillosis invasive type (HCC) COPD, severe (HCC) Secondary spontaneous pneumothorax Legionella pneumonia (HCC) Shock (HCC) Atrial fibrillation with RVR (HCC) Empyema of right pleural space (HCC) Hospital Course 62 y/o M w/ PMHHTN, HLD, CADs/p PCI 2012, CHF,tobacco use,COPD on 2-3L qHS, Afibw/ recent prolonged hospitalization for legionella & aspergillosis pneumonia as well as +CMV/HSV in BAL c/b inability to wean from the vent requiring trach/PEG (both tubes now removed) & R chest tube placement & PEA arrest from mucus plug. He was discharged to rehab 12/31. Admitted to the floor from rehab on 01/21w/worsening tachycardia, leukocytosis & fever. CT chest showed new loculated R hydropneumothorax & consolidation. Transferred to ICU for chest tube placement & increasing O2 requirements. Underwent pigtail placement x2 to R anterior space & R posterior space, started TPA/dornase. Currently tolerating 6L HFNC w/ Spo2 low 90s. ID following - ABx broadened to vanc/zosyn + cresemba, micafungin, valcyte. NEURO - No acute issues, a&o PULM COPD Acute on Chronic Hypoxic Respiratory Failure InvasivePulmonaryAspergillosis LegionellaPneumonia P.MirabilisPneumonia R sided Loculated Hydropneumothorax - Baseline O2 2-3L qHS - Had prolongedrecenthospitalization for legionella pneumonia, mirabilis pneumonia &necrotizing aspergillosis. Also possible aspiration pneumonia -Had MAC in sputum cx + CMV & HSV in BAL -S/p chest tube 12/16 -12/29. Fluid exudative. Cultures negative. - Had finished treatment w/zosyn,linezolid & micafungin.Was receiving antibiotics micafungin cresemba&valganciclovir -DevelopedFever&leukocytosis 01/21 - CT chest 01/21:development of moderate loculated right pneumothorax w/ anterior &apical component, persistent extensive right lung consolidation c/w pneumonia, slight improvement in mild patchy &nodular left lung opacities - Tx to ICU 01/22 for chest tube placement & increasing O2 requirements on the floor - Placed R sided chest tube x2 to anterior space & posterior space & started TPA /dornase - Pleural fluid cell counts: WBC 12,995 neutrophil predominate, exudative fluid - Anterior CT: 300ml; Posterior CT 1.9L - Currently tolerating 6L HFNC w/ Spo2 low 90s Plan - CTS following --> no acute surgical intervention indicated at this time given low volume of healthy lung visible on the right side.Recommend IR drainage of inferior fluid collection to follow remaining healthy lung to expand.Will continue to follow along as patient will likely need a staged surgery - TPA/dornase through Wednesday then will repeat CT - Vanc, zosyn, valganciclovir, micafungin, cresemba - Repeat CXR in AM - Continue spiriva, mucinex, flonase, symbicort CV Hx Paroxysmal Afib Shock - S/p ablation 2013 - Had RVR overnight w/ associated hypotension -->started amio gtt & phenyl gtt - Shock likely 2/2 RVR - Lactate negative - Given 1L IVF Plan - 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 -Will need monitoring outpatient GI - Last BM 01/21 - Regular diet - Colace/senna GERD -Continueprotonix - Zofran w/ meals RENAL - No acute issues - Cr 0.64 - UOP: 700ml - I/O: -273ml/24h; -1.2L for admit - Supportive care ENDO - BG WNL ID InvasivePulmonaryAspergillosis LegionellaPneumonia Possible Aspiration Pneumonia P.MirabilisPneumonia CMV Viremia - Recent prolonged hospitalization for legionella & aspergillosis pneumonia as well as +CMV/HSV in BAL - Also w/ MAC in sputum 12/20/17 & proteus in sputum 01/16/18 - WBC 28.8, fever in rehab - none here - CT chest as above w/ pneumonia - Blood cx 01/21: ngtd - Fungal blood cx 01/21: pending - Sputum cx 01/21: contamination - does not meet criteria for culture - Pleural fluid 01/22: cell count, cx, fungal cx, AFB pending Plan - Vanc, zosyn, valganciclovir, micafungin, cresemba - ID following HEME Thrombocytosis - May be reactive 2/2 infection - Hgb 10.1, plt 572 FEN -No IVF -Replace lytes PRN -Regular diet Prophylaxis Review: Lines:PICC (11/20) Tubes/Drains:R chest tube x2 VTE PPX:Hold 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 I spent 40 minutes providing critical care services including: performing a physical examination serially reviewing laboratory, telemetry, hemodynamic, oximetry, and respiratory data reviewing radiographic images reviewing medications managing fluids/electrolytes, antibiotics, ICU prophylaxis, and oxygenation developing the overall plan of care. Pt seen & discussed w/ Dr. Mark Kelly [facility] Pulmonary Critical Care Pager [phone] pager [phone] Subjective: Pt doing fairly well today, biggest complaint is he didn't sleep last night d/t pain & procedure. ROS: SOB is minimal, has R sided chest pain d/t tubes & broken ribs, no significant nausea, tolerating a diet, minimal cough Objective: Medications: Scheduled Meds: alteplase (ACTIVASE) 10 mg in sodium chloride 0.9% (NS) 30 mL intrapleural syringe 10 mg Intrapleural BID And dornase merlyn (PULMOZYME) 5 mg in water (sterile) for injection 30 mL intrapleural syringe 5 mg Intrapleural BID ascorbic acid (VITAMIN C) tablet 500 mg 500 mg Oral QDAY budesonide/formoterol (SYMBICORT HFA) 160/4.5 mcg inhalation 2 puff 2 puff Inhalation BID cholecalciferol (VITAMIN D-3) tablet 400 Units 400 Units Oral QDAY digoxin (LANOXIN) tablet 250 mcg 250 mcg Oral QDAY docusate (COLACE) capsule 200 mg 200 mg Oral BID fluticasone (FLONASE) nasal spray 2 spray 2 spray Each Nostril QDAY guaiFENesin LA (MUCINEX) tablet 600 mg 600 mg Oral BID isavuconazonium sulfate (CRESEMBA) capsule 372 mg 372 mg Oral QDAY(21) lidocaine (LIDODERM) 5 % topical patch 1-2 patch 1-2 patch Topical QDAY magnesium oxide (MAG-OX) tablet 400 mg 400 mg Oral BID micafungin (MYCAMINE) 150 mg in sodium chloride 0.9% (NS) 110 mL IVPB 150 mg Intravenous Q24H* ondansetron (ZOFRAN) tablet 4 mg 4 mg Oral TID w/ meals pantoprazole DR (PROTONIX) tablet 40 mg 40 mg Oral QDAY(21) piperacillin/tazobactam (ZOSYN) 4.5 g in sodium chloride 0.9% (NS) 100 mL IVPB ( MB+) 4.5 g Intravenous Q6H* polyethylene glycol 3350 (MIRALAX) packet 17 g 1 packet Oral BID senna (SENOKOT) tablet 2 tablet 2 tablet Oral BID sodium chloride PF 0.9% flush 30 mL 30 mL Intravenous FLUSH TID thiamine mononitrate tablet 100 mg 100 mg Oral QDAY tiotropium (SPIRIVA) capsule for inhaler 1 capsule 1 capsule Inhalation QDAY valGANciclovir (VALCYTE) tablet 900 mg 900 mg Oral BID w/meals vancomycin (VANCOCIN) 1,250 mg in dextrose 5% (D5W) IVPB 1,250 mg Intravenous Q12H* vitamin A & D topical ointment Topical QDAY vitamins, multi w/minerals tablet 1 tablet 1 tablet Oral QDAY Continuous Infusions: amiodarone (CORDARONE) 360 mg in dextrose, iso-osm 200 mL infusion 0.5 mg/ min (01/23/18900) phenylephrine (BAKARI-SYNEPHRINE) 10 mg in sodium chloride 0.9% (NS) 250 mL IV drip (std conc) 0.9 mcg/kg/min (01/23/18953) PRN and Respiratory Meds:acetaminophen Q4H PRN, albuterol Q4H PRN, alteplase BID PRN, aluminum/magnesium hydroxide Q4H PRN, HYDROcodone/acetaminophen Q6H PRN , HYDROmorphone (DILAUDID) injection Q4H PRN, ketorolac (TORADOL) 15-30 mg injection Q6H PRN, magnesium sulfate PRN AND Magnesium PRN AND Notify Physician Ongoing, melatonin QHS PRN, potassium chloride SR PRN OR potassium chloride PRN, [DISCONTINUED] vancomycin IVPB Q12H* AND vancomycin, pharmacy to manage Per Pharmacy Vital Signs: Last Filed Vital Signs: 24 Hour Range BP: 91/66 (01/23 900) Temp: 36.4 C (97.6 F) (01/23 0400) Pulse: 95 (01/23 900) Respirations: 20 PER MINUTE (01/23 900) SpO2: 92 % (01/23 950) O2 Delivery: High Flow Nasal Cannula (01/23 900) SpO2 Pulse: 93 (01/23 900) Height: 182.9 cm (72") (01/22 124) BP: (85-137)/(57-99) Temp: [36.4 C (97.6 F)-36.9 C (98.5 F)] Pulse: [79-142] Respirations: [16 PER MINUTE-33 PER MINUTE] SpO2: [87 %-100 %] O2 Delivery: High Flow Nasal Cannula Intensity Pain Scale (Self Report): 8 (01/23/1800) Vitals: 01/22/18 1247 01/23/18 0600 Weight: 73.7 kg (162 lb 7.7 oz) 77.7 kg (171 lb 4.8 oz) Intake/Output Summary: (Last 24 hours) Intake/Output Summary (Last 24 hours) at 01/23/2018 1046 Last data filed at 01/23/2018 0600 Gross per 24 hour Intake 2696.96 ml Output 3070 ml Net -373.04 ml Physical Exam: Physical Exam General Appearance: No apparent distress, sitting upright in bed interactive Skin: no rashes HEENT:PERRL, MMM Chest and Lungs:Quiet breath sounds in R lung, clear breath sounds in L lung, no wheezing Heart:afib rate controlled Abdomen:soft, non tender to palpation, +BS Genitourinary:voiding Extremities:warm, trace LE jacqueline, palpable pulses Neurologic:alert &oriented x3, follows commands, able to move all extremities, non-focal LABS: Recent Labs 01/21/18 0535 01/21/18 2256 01/22/18 0456 01/23/18 0340 NA 133* 130* 132* 134* K 3.2* 3.5 3.5 3.3* CL 96* 94* 95* 99 CO2 32* 30 31* 27 GAP 5 6 6 8 BUN 5* 7 8 11 CR 0.43 0.49 0.47 0.64 GLU 84 103* 82 152* CA 8.5 8.5 8.7 8.1* ALBUMIN -- -- 2.5* 2.2* MG -- -- 1.7 1.8 PO4 -- -- 3.4 3.1 Recent Labs 01/21/18 0535 01/22/18 0456 01/23/18 0340 WBC 19.4* 24.4* 28.8* HGB 10.2* 9.7* 10.1* HCT 31.0* 29.9* 31.5* PLTCT 412* 423* 572* AST -- 16 16 ALT -- 28 17 ALKPHOS -- 115* 120* Estimated Creatinine Clearance: 120.3 mL/min (based on SCr of 0.64 mg/dL). Vitals: 01/22/18 1247 01/23/18 0600 Weight: 73.7 kg (162 lb 7.7 oz) 77.7 kg (171 lb 4.8 oz) No results for input(s): PHART, PO2ART in the last 72 hours. Invalid input(s): PC02A 01/21 blood cx NGTD Radiology and Other Diagnostic Procedures Review: Reviewed pertinent studies. NESS TRANSFORMATION CONSULTANT * Mohan Johnson MD - 01/23/2018 8:05 AM BUSINESS TRANSFORMATION CONSULTANT The patient has significant purulent drainage from the right side. His overall hemodynamically stable. I spoke with the patient and his spouse today. Continue chest tube to suction and repeat TPA dornase is tolerated. Plan for repeat CT scan in the next several days to evaluate progress. NESS TRANSFORMATION CONSULTANT * Hany Mireles RN - 01/23/2018 1:45 AM BUSINESS TRANSFORMATION CONSULTANT @0100: pt hypotensive, notified Dr. Jenkins, phenyl started, NICOM showed delta SVI of 31% after 1st 500ml and after 500ml pt was no longer fluid responsive. Pt normotensive after bolus. NESS TRANSFORMATION CONSULTANT * Claudia De La Paz RT - 01/22/2018 11:06 AM BUSINESS TRANSFORMATION CONSULTANT RT Adult Assessment Note NAME:Nancy Trujillo :1955 AGE: 62 y.o. ADMISSION DATE: 01/21/2018 DAYS ADMITTED: LOS: 1 day RT Treatment Plan: Protocol Plan: Medications Albuterol: MDI PRN Tiotropium: MDI Q Day Protocol Plan: Procedures Cough Assist: Q4h While Awake PAP: Q4h PAP While Awake Oxygen/Humidity: O2 to keep SpO2 > 92% Monitoring: Pulse oximetry BID & PRN Additional Comments: Impressions of the patient: Intervention(s)/outcome(s): Patient education that was completed: Recommendations to the care team: Vital Signs: Pulse: Pulse: 120 RR: Respirations: 18 PER MINUTE SpO2: SpO2: 100 % O2 Device: $$ O2 Device: Cannula Liter Flow: O2 Liter Flow: (S) 3 lpm O2%: Breath Sounds: Respiratory Effort: NESS TRANSFORMATION CONSULTANT * David River MD - 01/22/2018 8:57 AM BUSINESS TRANSFORMATION CONSULTANT General Progress Note Name: Nancy Trujillo Today's Date: 01/22/2018 Admission Date: 01/21/2018 LOS: 1 day Assessment/Plan: Active Problems: CAD (coronary artery disease) Paroxysmal 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 (HCC) S/P ablation of 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 Pneumonia Cytomegalovirus (CMV) viremia (HCC) Loculated pleural effusion Acute on chronic respiratory failure with hypoxia and hypercapnia (HCC) Sepsis (HCC) Pulmonary aspergillosis invasive type (HCC) COPD, severe (HCC) Secondary spontaneous pneumothorax Legionella pneumonia (HCC) 62yoM w/ PMH of severe COPD, chronic hypoxia (2-3 L baseline), CAD s/p PCI, parox A fib previously on Xarelto recent prolonged hospitalization for Legionella and invasive Aspergillus pneumonia, CMV viremia, PEA arrest on 11/18, multiple intubation and extubation was transferred to inpt rehab on 12/31, re -admitted on 01/21 due to ongoing tachycardia, worsening leukocytosis, and recurrent pneumothorax Changes made to today's assessment and plan are indicated in bold. Pneumothorax, presumed loculated effusion - has grown MAC, legionella, and aspergillus from pulmonary sources - CT chest shows modecate loculated R pneumothorax, R lung consulted c/w pneumonia - there seems to be an effusion on the R base as well, but no in the radiology report; marked L sided emphysema w/ bullae - ID and pulmonary consulted - 04/18 SIRS w/ tachycardia, tachypnea, leukocytosis - cont on isavuconazonium, braden, vanc, zosyn - blood cx from 01/21 are NGTD - discussed w/ Dr. Flores, CTS consulted, will plan for chest tube placement, but will transfer to MICU given his current instability and high likelihood for decompensation - cont IS, acapella Parox A fib - s/p PEA arrest on 11/18, thought to be secondary to mucous plugging - cont on digoxin - not currently on AC in anticipation of chest tube - cont metoprolol CMV viremia - cont valcyte - most recent CMV level was undetectable on 01/17 Chronic HFpEF - most recnet Echo w/ EF of 70%, hyperdynamic LVH - cont on lasix Broken ribs - from CPR - cont lidocaine patches FEN: no IVF, replace lytes PRN, regular diet Ppx: lovenox Code: DNAR-FI, this will need further discussion as he remains unclear about this, declined palliative care consult today. Dispo: cont inpt admit, discussed w/ Dr. Flores and the Pulm/CC team, will transfer to MICU for chest tube placement. Discussed w/ Dr. Messina cont current abx, anti-fungal, anti-virals. Subjective Nancy Trujillo is a 62 y.o. male. Patient w/ ongoing dyspnea. He feels he is having much hard time breathing today than normal. Has some chest discomfort from deep breathing, but overall this is getting better since CPR was done on 11/18. He is admittedly anxious about what else we have to offer him as he has been hospitalized somewhere near 80 days now. We discussed code status, but this seems to make him more anxious. ROS: neg for fevers, chills, palpitations; + for dyspnea, chest pain Medications Scheduled Meds: ascorbic acid (VITAMIN C) tablet 500 mg 500 mg Oral QDAY budesonide/formoterol (SYMBICORT HFA) 160/4.5 mcg inhalation 2 puff 2 puff Inhalation BID cholecalciferol (VITAMIN D-3) tablet 400 Units 400 Units Oral QDAY digoxin (LANOXIN) tablet 250 mcg 250 mcg Oral QDAY docusate (COLACE) capsule 200 mg 200 mg Oral BID fluticasone (FLONASE) nasal spray 2 spray 2 spray Each Nostril QDAY furosemide (LASIX) tablet 60 mg 60 mg Oral BID(9-17) guaiFENesin LA (MUCINEX) tablet 600 mg 600 mg Oral BID INHALATIONAL SPACING DEVICE MISC SPCR (Cabinet Override) NOW isavuconazonium sulfate (CRESEMBA) capsule 372 mg 372 mg Oral QDAY(21) lidocaine (LIDODERM) 5 % topical patch 1-2 patch 1-2 patch Topical QDAY magnesium oxide (MAG-OX) tablet 400 mg 400 mg Oral BID metoprolol tartrate (LOPRESSOR) tablet 12.5 mg 12.5 mg Oral BID micafungin (MYCAMINE) 150 mg in sodium chloride 0.9% (NS) 110 mL IVPB 150 mg Intravenous Q24H* ondansetron (ZOFRAN) tablet 4 mg 4 mg Oral TID w/ meals pantoprazole DR (PROTONIX) tablet 40 mg 40 mg Oral QDAY(21) piperacillin/tazobactam (ZOSYN) 4.5 g in sodium chloride 0.9% (NS) 100 mL IVPB ( MB+) 4.5 g Intravenous Q6H* polyethylene glycol 3350 (MIRALAX) packet 17 g 1 packet Oral BID senna (SENOKOT) tablet 2 tablet 2 tablet Oral BID sodium chloride PF 0.9% flush 30 mL 30 mL Intravenous FLUSH TID thiamine mononitrate tablet 100 mg 100 mg Oral QDAY tiotropium (SPIRIVA) capsule for inhaler 1 capsule 1 capsule Inhalation QDAY valGANciclovir (VALCYTE) tablet 900 mg 900 mg Oral BID w/meals vancomycin (VANCOCIN) 1,250 mg in dextrose 5% (D5W) IVPB 1,250 mg Intravenous Q12H* vitamin A & D topical ointment Topical QDAY vitamins, multi w/minerals tablet 1 tablet 1 tablet Oral QDAY Continuous Infusions: PRN and Respiratory Meds:acetaminophen Q4H PRN, albuterol Q4H PRN, alteplase BID PRN, aluminum/magnesium hydroxide Q4H PRN, HYDROcodone/acetaminophen Q6H PRN , melatonin QHS PRN, [DISCONTINUED] vancomycin IVPB Q12H* AND vancomycin, pharmacy to manage Per Pharmacy Objective Vital Signs: Last Filed Vital Signs: 24 Hour Range BP: 118/77 (01/23 424) Temp: 36.5 C (97.7 F) (01/23 424) Pulse: 108 (01/23 424) Respirations: 18 PER MINUTE (01/22 531) SpO2: 100 % (01/22 531) O2 Delivery: Nasal Cannula (01/23 424) BP: (94-118)/(53-77) Temp: [36.5 C (97.7 F)-37 C (98.6 F)] Pulse: [60-124] Respirations: [17 PER MINUTE-18 PER MINUTE] SpO2: [90 %-100 %] O2 Delivery: Nasal Cannula Intensity Pain Scale (Self Report): 6 (01/21/18 6046) There were no vitals filed for this visit. Intake/Output Summary: (Last 24 hours) Intake/Output Summary (Last 24 hours) at 01/22/2018 0857 Last data filed at 01/22/2018 0425 Gross per 24 hour Intake 0 ml Output 975 ml Net -975 ml Stool Occurrence: 1 Physical Exam General: Alert, cooperative, in mild resp distress, but able to speak in full sentences. Anxious and chronically ill appearing. Head: Normocephalic, without obvious abnormality, atraumatic. Eyes: Conjunctivae/corneas clear. PERRL. Lungs: There are no breath sounds appreciated on the R, L is distorted by rhonci - does not clear w/ cough Heart: Tachy, regrhythm, no MRG. Abdomen: Soft, non-tender. Bowel sounds normal. Extremities: No cyanosis, clubbing, nor edema. Pulses: 2+ radial pulses b/l Skin: Skin color, texture, turgor normal. No rashes or lesions. Lab Review Hematology: Lab Results Component Value Date HGB 9.7 01/22/2018 HCT 29.9 01/22/2018 PLTCT 423 01/22/2018 WBC 24.4 01/22/2018 NEUT 93 01/22/2018 ANC 22.60 01/22/2018 LYMPH 3 12/19/2017 ALC 0.60 01/22/2018 YOGI 4 01/22/2018 AMC 1.00 01/22/2018 ABC 0.10 01/22/2018 MCV 104.9 01/22/2018 MCHC 32.6 01/22/2018 MPV 7.5 01/22/2018 RDW 18.0 01/22/2018 , Coagulation: Lab Results Component Value Date PTT 34.7 01/02/2018 INR 1.3 01/02/2018 , General Chemistry: Lab Results Component Value Date NA 132 01/22/2018 K 3.5 01/22/2018 CL 95 01/22/2018 GAP 6 01/22/2018 BUN 8 01/22/2018 CR 0.47 01/22/2018 GLU 82 01/22/2018 CA 8.7 01/22/2018 ALBUMIN 2.5 01/22/2018 OBSCA 1.00 12/02/2017 MG 1.7 01/22/2018 TOTBILI 0.4 01/22/2018 and Enzymes: Lab Results Component Value Date AST 16 01/22/2018 ALT 28 01/22/2018 ALKPHOS 115 01/22/2018 Point of Care Testing (Last 24 hours) Glucose: 82 (01/22/18 0456) Radiology and other Diagnostics Review: Pertinent radiology reviewed. David River MD Pager [phone] NESS TRANSFORMATION CONSULTANT * Kristy Stephenson PHARMD - 01/22/2018 8:38 AM BUSINESS TRANSFORMATION CONSULTANT Pharmacy to Manage Antibiotic Initiation Note Nancy Trujillo is a 62 y.o. male being started on Vancomycin for treatment of pneumonia. Creatinine Date/Time Value Ref Range Status 01/22/2018 0456 0.47 0.4 - 1.24 MG/DL Final Estimated CrCl: >100 ml/min Actual Weight: 71 kg (156 lb 8 oz) Plan: Start vancomycin 1250mg IV Q12 hours based on previous dosing regimens Goal trough 12-17 per ID recs, will be ordered with 4th or 5th dose Pharmacy will continue to monitor and adjust therapy as needed. Thank you, Kristy Stephenson, PHARMD, BCPS 01/22/2018 NESS TRANSFORMATION CONSULTANT * Althea Nielsen RN - 01/22/2018 3:32 AM BUSINESS TRANSFORMATION CONSULTANT Patient arrived to room # [facility] via cart accompanied by EMS. Patient transferred to the bed with assistance. Bedside safety checks completed. Initial patient assessment completed, refer to flowsheet for details. Admission skin assessment completed by: Pressure Injury Present on Hospital Admission (within 24 hours): No 1. Occiput: No 2. Ear: No 3. Scapula: No 4. Spinous Process: No 5. Shoulder: No 6. Elbow: No 7. Iliac Crest: No 8. Sacrum/Coccyx: No large blanchable purple area 9. Ischial Tuberosity: No 10. Trochanter: No 11. Knee: No 12. Malleolus: No 13. Heel: No 14. Toes: No 15. Assessed for device associated injury Yes 16. Nursing Nutrition Assessment Completed Yes See Doc Flowsheet for additional wound details. INTERVENTIONS: NESS TRANSFORMATION CONSULTANT * Chaparro Camacho RT - 01/21/2018 10:58 PM BUSINESS TRANSFORMATION CONSULTANT RT Adult Assessment Note NAME:Nancy Trujillo :1955 AGE: 62 y.o. ADMISSION DATE: 01/21/2018 DAYS ADMITTED: LOS: 0 days RT Treatment Plan: Protocol Plan: Medications Albuterol: MDI PRN Tiotropium: MDI Q Day Protocol Plan: Procedures Vibrating PEP Therapy: Discontinued(Pt can preform therapy PRN) IPPB: Place a nursing order for "IS Q1h While Awake" for any of Lung Expansion indicators Oxygen/Humidity: O2 to keep SpO2 > 92% Monitoring: Pulse oximetry BID & PRN Comment: Symbicort BID PAP Q4h while awake & PRN Additional Comments: Impressions of the patient: Pt awake and alert, experiencing dyspnea / SOA while ambulatory Intervention(s)/outcome(s): Patient education that was completed: Recommendations to the care team: Vital Signs: Pulse: Pulse: 120 RR: Respirations: 18 PER MINUTE SpO2: SpO2: 100 % O2 Device: $$ O2 Device: Cannula Liter Flow: O2 Liter Flow: 3 lpm O2%: Breath Sounds: Respiratory Effort: Respiratory Effort: Dyspnea NESS TRANSFORMATION CONSULTANT * Lavonne Ryan RN - 01/21/2018 6:43 PM BUSINESS TRANSFORMATION CONSULTANT Patient arrived on unit via cart accompanied by EMS. Patient transferred to the bed with assistance. Assessment to be completed, refer to flowsheet for details. Med team notified - to come to bedside and see patient. Oriented to surroundings, call light within reach. Plan of care reviewed. Will continue to monitor and assess. NESS TRANSFORMATION CONSULTANT in this encounter H&P Notes * Cheryl Patrick APRN - 01/28/2018 9:19 AM BUSINESS TRANSFORMATION CONSULTANT History and Physical Update Note Name: Nancy Trujillo Allergies: Patient has no known allergies. Primary Care Physician: Flavio aJckson Verified Lab/Radiology/Other Diagnostic Tests: 24-hour labs: Results for orders placed or performed during the hospital encounter of (from the past 24 hour(s)) DIGOXIN LEVEL Collection Time: 01/28/18 3:10 AM Result Value Ref Range Digoxin 1.6 (HH) 0.5 - 1.0 NG/ML CBC AND DIFF Collection Time: 01/28/18 3:10 AM Result Value Ref Range White Blood Cells 15.7 (H) 4.5 - 11.0 K/UL RBC 2.58 (L) 4.4 - 5.5 M/UL Hemoglobin 8.9 (L) 13.5 - 16.5 GM/DL Hematocrit 26.7 (L) 40 - 50 % MCV 103.7 (H) 80 - 100 FL MCH 34.4 (H) 26 - 34 PG MCHC 33.2 32.0 - 36.0 G/DL RDW 18.9 (H) 11 - 15 % Platelet Count 395 150 - 400 K/UL MPV 6.6 (L) 7 - 11 FL Neutrophils 87 (H) 41 - 77 % Lymphocytes 5 (L) 24 - 44 % Monocytes 5 4 - 12 % Eosinophils 0 0 - 5 % Basophils 3 (H) 0 - 2 % Absolute Neutrophil Count 13.70 (H) 1.8 - 7.0 K/UL Absolute Lymph Count 0.70 (L) 1.0 - 4.8 K/UL Absolute Monocyte Count 0.70 0 - 0.80 K/UL Absolute Eosinophil Count 0.10 0 - 0.45 K/UL Absolute Basophil Count 0.50 (H) 0 - 0.20 K/UL COMPREHENSIVE METABOLIC PANEL Collection Time: 01/28/18 3:10 AM Result Value Ref Range Sodium 137 137 - 147 MMOL/L Potassium 4.2 3.5 - 5.1 MMOL/L Chloride 106 98 - 110 MMOL/L Glucose 100 70 - 100 MG/DL Blood Urea Nitrogen 22 7 - 25 MG/DL Creatinine 2.36 (H) 0.4 - 1.24 MG/DL Calcium 8.2 (L) 8.5 - 10.6 MG/DL Total Protein 5.5 (L) 6.0 - 8.0 G/DL Total Bilirubin 0.3 0.3 - 1.2 MG/DL Albumin 2.0 (L) 3.5 - 5.0 G/DL Alk Phosphatase 94 25 - 110 U/L AST (SGOT) 16 7 - 40 U/L CO2 26 21 - 30 MMOL/L ALT (SGPT) 12 7 - 56 U/L Anion Gap 5 3 - 12 eGFR Non 28 (L) >60 mL/min eGFR 34 (L) >60 mL/min MAGNESIUM Collection Time: 01/28/18 3:10 AM Result Value Ref Range Magnesium 2.3 1.6 - 2.6 mg/dL PHOSPHORUS Collection Time: 01/28/18 3:10 AM Result Value Ref Range Phosphorus 5.4 (H) 2.0 - 4.5 MG/DL TYPE & CROSSMATCH Collection Time: 01/28/18 3:10 AM Result Value Ref Range Units Ordered 0 Crossmatch Expires 01/31/2018 Record Check FOUND ABO/RH(D) O POS Antibody Screen NEG Electronic Crossmatch YES 01/28/2018 CHEST SINGLE VIEW IMPRESSION: Stable appearance of the chest, with a partially loculated right hydropneumothorax and extensive right lung consolidation. 01/25/2018 CT CHEST WITHOUT CONTRAST IMPRESSION 1. Significant overall improvement in the moderate loculated hydropneumothorax after placement of 2 pleural drains. 2. Persistent extensive right lung consolidation compatible with pneumonia and/or atelectasis. 3. Stable patchy and nodular left lung opacities with a small left pleural effusion. Follow-up chest CT in 6 months is again recommended to assess for stability or improvement of nodular components. 4. Marked emphysema. 5. At least moderate coronary artery calcification. 6. Healing bilateral anterior rib and sternal fractures. Vitals: 01/28/18 0700 01/28/18 0800 01/28/18 0915 01/28/18 0920 BP: 113/64 114/67 120/79 120/79 Pulse: 94 93 96 93 Temp: 36.7 C (98 F) 36.8 C (98.2 F) SpO2: 98% 98% 97% Weight: Height: Last Dose Beta Blockers/Anticoagulants: Last dose of Beta Manjit: Date 01/28/2018 and Time 0811 Metoprolol 12.5 mg po Point of Care Testing: (Last 24 hours): Glucose: 100 (01/28/18 0310) Patients consent signed, the operative site marked, patient is NPO, and post operative plan of care discussed. Dr. Johnson has reviewed all of the patient's preop testing. He agrees that surgical intervention is the most appropriate course of action. The entire procedure, risks, benefits, alternatives, and complications have been discussed. Potential risks include but are not limited to infection, arrhythmias , bleeding requiring re-operation, prolonged intubation, ARF requiring hemodialysis, CVA, [place], and possibly even . The patient understands, accepts , and wishes to proceed. I have examined the patient, and the following changes are noted from the previous H&P performed on 01/22/2018. Partially loculated right hydropneumothorax and extensive right lung consolidation. Cheryl Patrick APRN-C Pager [phone] NESS TRANSFORMATION CONSULTANT * Henry Flores MD - 01/22/2018 1:32 PM BUSINESS TRANSFORMATION CONSULTANT Critical Care Admission History and Physical Assessment Name: Nancy Trujillo Admission Date: 01/21/2018 Active Problems: CAD (coronary artery disease) Paroxysmal 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 (HCC) S/P ablation of 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 Pneumonia Cytomegalovirus (CMV) viremia (HCC) Loculated pleural effusion Acute on chronic respiratory failure with hypoxia and hypercapnia (HCC) Sepsis (HCC) Pulmonary aspergillosis invasive type (HCC) COPD, severe (HCC) Secondary spontaneous pneumothorax Legionella pneumonia (HCC) Assessment and Plan 62 y/o M w/ PMH HTN, HLD, CAD s/p PCI 2012, CHF, tobacco use, COPD on 2-3L qHS, Afib w/ recent prolonged hospitalization for legionella & aspergillosis pneumonia as well as +CMV/HSV in BAL c/b inability to wean from the vent requiring trach/PEG (both tubes now removed) & R chest tube placement, PEA arrest from mucus plug. He was discharged to rehab 12/31. Admitted to the floor from rehab on 01/21 w/ worsening tachycardia, leukocytosi, fever & loculated pneumothorax. Transferred to ICU for chest tube placement & increasing O2 requirements. ID consulted - do not think presentation is c/w worsening aspergillus pneumonia. ABx broadened to vanc/zosyn + cresemba, micafungin, valcyte. NEURO - No acute issues, a&o PULM COPD Acute on Chronic Hypoxic Respiratory Failure Invasive Pulmonary Aspergillosis Legionella Pneumonia P. Mirabilis Pneumonia R sided Loculated Pneumothorax - Baseline O2 2-3L qHS - Had prolonged recent hospitalization for legionella pneumonia, mirabilis pneumonia & necrotizing aspergillosis. Also possible aspiration pneumonia - Had MAC in sputum cx + CMV & HSV in BAL - S/p chest tube 12/16 -12/29. Fluid exudative. Cultures negative. - Had finished treatment w/ zosyn, linezolid & micafungin. Was receiving antibiotics micafungin cresemba & valganciclovir - Developed Fever & leukocytosis 01/21 - CT chest 01/21: development of moderate loculated right pneumothorax w/ anterior & apical component, persistent extensive right lung consolidation c/w pneumonia, slight improvement in mild patchy & nodular left lung opacities - Has had increasing O2 requirements 3-->6L - Tx to ICU for chest tube placement Plan - Place R sided chest tube + TPA/dornase - CTS following --> no acute surgical intervention indicated at this time given low volume of healthy lung visible on the right side. Recommend IR drainage of inferior fluid collection to follow remaining healthy lung to expand. Will continue to follow along as patient will likely need a staged surgery - Vanc, zosyn, valganciclovir, micafungin, cresemba - Continue spiriva, mucinex, flonase, symbicort CV Hx Paroxysmal Afib - S/p ablation 2013 - 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 12.5mg BID, digoxin 250mcg daily - 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 xarelto held for chest tube placement - Last dig level 1.0 (12/21) CAD s/p PCI HTN/HLD - ECHO 11/22: LVEF 70%, trace TR, RV normal, trace effusion - 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, cardizem & lipitor being held at rehab - Continue lasix, metoprolol AAA - CT a/p 12/20/17 showing fusiform infrarenal abdominal aortic aneurysm measuring up to 4.9 cm in maximum diameter. - Will need monitoring outpatient GI - Last BM 01/21 - Regular diet - Colace/senna GERD - Continue protonix - Zofran w/ meals RENAL - No acute issues - Cr 0.47 - Voiding ENDO - BG WNL ID Invasive Pulmonary Aspergillosis Legionella Pneumonia P. Mirabilis Pneumonia CMV Viremia - Sputum BAL cxs previous w/ MAC/CMV/HSV - WBC 24.4, fever in rehab - none here - CT chest as above w/ pneumonia - Blood cx 01/21: ngtd - Fungal blood cx 01/21: pending - Sputum cx 01/21: pending Plan - Vanc, zosyn, valganciclovir, micafungin, cresemba - ID following HEME Thrombocytosis - May be reactive 2/2 infection - Hgb 9.7, plt 423 FEN - No IVF - Replace lytes PRN - Regular diet Prophylaxis Review: Lines: PICC (11/20) Tubes/Drains: None VTE PPX: 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 xarelto held for chest tube placement GI ppx: Protonix Insulin: None PT/OT: Yes Code status: DNAR-FI, lengthy discussion ongoing with patient, see advanced planning note for further details. Dispo: ICU Patient discussed with Dr. Mark Vanegas DO PGY-3 Internal Medicine M3 pager [phone] ATTESTATION I have seen, personally fully evaluated, and discussed patient with resident team. I agree with the physical exam findings and agree with the plan of care as documented by the resident with the exceptions noted. I have reviewed all pertinent labs, images, and diagnostic studies outlined above. The patient is critically ill with the followin acute on chronic hypoxemic respiratory failure secondary to progressive presumed empyema on the right as well as hydropneumothorax anteriorly. 2. Severe sepsis secondary to complicated right lower lobe pneumonia likely bacterial on fungal with probable empyema. 3. Severe obstructive lung disease with emphysema I spent 80 minutes (excluding time spent performing or supervising any procedures) providing and personally directing critical care services including directing the formulation of the plan outlined above. Transfer to ICU given severe sepsis and high risk of progressive decompensation. Discussed with hospitalist. Discussed and reviewed images with Dr. Johnson of thoracic surgery given very complicated pleural space. Given extensive pneumonia and necrosis no surgical intervention at this time. Multiple assessments with bedside ultrasound to assess right pleural space including anterior space which no lung sliding was noted in the third to fifth intercostal space. Able to identify safe access point in the right posterior lateral pleural space multiple loculations were noted on ultrasound. Transition to broaden antibiotic coverage with Zosyn and Vanco. Continue on Cresemba and micafungin. ID following and reviewed their recommendations. Will volume resuscitate guided by NICOM. Start TPA and dornase and right pleural space to help with complex effusion/ empyema Reviewed CODE STATUS with patient and and he is a full code for now. Transition from nasal cannula to comfort flow for hypoxemia. Staff name: Henry Flores MD Date: 01/22/2018 Primary Care Physician: Flavio Jackson CHIEF COMPLAINT: Admitted from rehab w/ worsening tachycardia, leukocytosis & loculated pneumothorax. SOURCE: EMR, patient RELIABILITY: Good HISTORY OF PRESENT ILLNESS: Nancy Trujillo is a 62 y.o. male w/ PMH HTN, HLD, CAD s/p PCI 2012, CHF, tobacco use, COPD on 2-3L qHS, Afib w/ recent prolonged hospitalization for legionella & aspergillosis pneumonia as well as +CMV/HSV in BAL c/b inability to wean from the vent requiring trach/PEG (both tubes now removed) & R chest tube placement, PEA arrest from mucus plug. He was discharged to rehab 12/31. Admitted to the floor from rehab on 01/21 w/ worsening tachycardia, leukocytosis, fever & loculated pneumothorax. Transferred to ICU for chest tube placement & increasing O2 requirements. ID consulted - do not think presentation is c/w worsening aspergillus pneumonia. ABx broadened to vanc/zosyn + cresemba, micafungin, valcyte. 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 Godfrey. PSH: Past Surgical History: Procedure Laterality Date CARDIOVERSION CORONARY STENT PLACEMENT SOCIAL HISTORY: Social History Socioeconomic History Marital status: Spouse [...] Activity Alcohol use: Yes Comment: 6 per week Drug use: No Sexual activity: Not on file Other Topics Concern Not on file Social History Narrative Not on file FAMILY HISTORY: No family history on file. IMMUNIZATIONS: Immunization History Administered Date(s) Administered Flu Vaccine=>6 Months Quadrivalent PF 12/28/2017 Pneumococcal Vaccine (23-Janett Adult) 12/31/2017 ALLERGIES: Patient has no known allergies. HOME MEDICATIONS: Medications Prior to Admission Medication Sig acetaminophen (TYLENOL) 160 mg/5 mL oral solution 20.3 mL by Per NG tube route every 4 hours as needed. Max of 4,000 mg of acetaminophen in 24 hours. albuterol (PROAIR HFA, VENTOLIN HFA, OR PROVENTIL HFA) 90 mcg/actuation inhaler Inhale two puffs by mouth into the lungs four times daily as needed for Wheezing or Shortness of Breath. Shake well before use. ascorbic acid (VITAMIN C) 500 mg tablet one tablet by Per NG tube route daily. budesonide/formoterol (SYMBICORT) 160/4.5 mcg HFAA inhalation Inhale 2 Puffs by mouth twice daily. cefepime (MAXIPIME) 1 g/10 mL 1 g in dextrose 5% (D5W) 5 % 100 mL IVPB (MB+ ) Administer one g through vein every 8 hours. cholecalciferol (VITAMIN D-3) 400 unit tab tablet Take one tablet by mouth daily. dextran 70/hypromellose (GENTEAL TEARS; BION TEARS) 0.1/0.3 % dpet ophthalmic solution Apply one drop to both eyes every 6 hours as needed for Dry Eyes. digoxin (LANOXIN) 250 mcg tablet one tablet by Per NG tube route daily. fluticasone (FLONASE) 50 mcg/actuation nasal spray Apply two sprays to each nostril as directed daily. Shake bottle gently before using. furosemide (LASIX) 20 mg tablet Take three tablets by mouth twice daily. guaiFENesin (ROBITUSSIN) 100 mg/5 mL oral solution 10 mL by Per NG tube route every 4 hours. HYDROcodone/acetaminophen (NORCO) 5/325 mg tablet Take one tablet by mouth every 6 hours as needed isavuconazonium sulfate (CRESEMBA) 186 mg capsule Take [...] Take one-half tablet by mouth twice daily. micafungin (MYCAMINE) 100 mg/5 mL 100 mg, micafungin (MYCAMINE) 50 mg/5 mL 50 mg in sodium chloride 0.9% (NS) 0.9 % 110 mL IVPB Administer 150 mg through vein every [address] (PROTONIX) 40 mg tablet Take one tablet by mouth daily. phenol (CLORASEPTIC; PHENASEPTIC) 1.4 % spra Take two sprays by mouth or throat as directed as Needed. rivaroxaban (XARELTO) 20 mg tab tablet Take 20 mg by mouth daily with dinner. thiamine mononitrate 100 mg tablet one tablet by Per NG tube route daily. tiotropium (SPIRIVA) 18 mcg capsule for inhaler Inhale 18 mcg by mouth daily. valGANciclovir (VALCYTE) 450 mg tablet Take two tablets by mouth twice daily with meals. For 4-6 more weeks. vitamin A & D oint Apply topically to affected area daily. Apply A&D ointment to wounds and cover with a Biatain foam. Dressing changes daily and PRN for soiling. vitamins, multi w/iron (CERTAVITE) oral solution 15 mL by Per NG tube route daily. vitamins, multi w/minerals 9 mg iron-400 mcg tab Take one tablet by mouth daily. Review of Systems General: +fevers, chills, weight changes, no change in appetite, +fatigue Skin: no rashes HEENT: no headache Respiratory: +shortness of breath, +wheeze, +cough, +sputum production Cardiac: no chest pain, dyspnea on exertion Gastrointestinal: no n/v, diarrhea, constipation, abdominal pain Urinary: no dysuria Musculoskeletal: no myalgias or arthralgias Extremities: no edema Neurologic: no weakness or numbness, dizziness Hematologic: no bleeding Physical Exam General Appearance: No apparent distress, sitting upright in bed interactive Skin: no rashes HEENT: PERRL, MMM Chest and Lungs: Absent breath sounds R lateral/inferior lung, slight wheezes R parasternal, diffuse wheezes L lung Heart: afib Abdomen: soft, nondistended, non tender to palpation, +BS Genitourinary: voiding Extremities: warm, no peripheral edema, palpable pulses Neurologic: alert & oriented x3, follows commands, able to move all extremities , non-focal Laboratory: Recent Labs 01/20/18 0508 01/21/18 0535 01/21/18 2256 01/22/18 0456 NA 134* 133* 130* 132* K 3.0* 3.2* 3.5 3.5 CL 97* 96* 94* 95* CO2 31* 32* 30 31* GAP 6 5 6 6 BUN 5* 5* 7 8 CR 0.47 0.43 0.49 0.47 GLU 100 84 103* 82 CA 8.3* 8.5 8.5 8.7 ALBUMIN -- -- -- 2.5* MG -- -- -- 1.7 PO4 -- -- -- 3.4 Recent Labs 01/21/18 0535 01/22/18 0456 WBC 19.4* 24.4* HGB 10.2* 9.7* HCT 31.0* 29.9* PLTCT 412* 423* AST -- 16 ALT -- 28 ALKPHOS -- 115* Estimated Creatinine Clearance: 114.1 mL/min (based on SCr of 0.47 mg/dL). Vitals: 01/22/18 1247 Weight: 73.7 kg (162 lb 7.7 oz) No results for input(s): PHART, PO2ART in the last 72 hours. Invalid input(s): PC02A Vital Signs: Last Filed Vital Signs: 24 Hour Range BP: 105/72 (01/22 1300) Temp: 36.6 C (97.9 F) (01/23 1248) Pulse: 115 (01/22 1300) Respirations: 24 PER MINUTE (01/22 1300) SpO2: 92 % (01/22 1300) O2 Delivery: Nasal Cannula (01/22 1300) SpO2 Pulse: 119 (01/22 1300) Height: 182.9 cm (72") (01/22 1247) BP: (94-137)/(53-79) Temp: [36.5 C (97.7 F)-37 C (98.6 F)] Pulse: [103-124] Respirations: [17 PER MINUTE-30 PER MINUTE] SpO2: [90 %-100 %] O2 Delivery: Nasal Cannula Intensity Pain Scale (Self Report): (P) 4 (01/22/181247) Vitals: 01/22/187 Weight: 73.7 kg (162 lb 7.7 oz) Radiology and Other Diagnostic Procedures Review: Reviewed NESS TRANSFORMATION CONSULTANT * Shirin Wallace MD - 01/21/2018 6:51 PM BUSINESS TRANSFORMATION CONSULTANT Admission History and Physical Examination Name: Nancy Trujillo Admission Date: 01/21/2018 Assessment/Plan: Active Problems: Pneumonia Loculated pleural effusion Nancy Trujillo is a 62 y.o. male with history of HTN, HLD, CAD, CHF, COPD on 2 -3L qhs, Afib, who is being admitted from rehab with worsening tachycardia, leukocytosis and loculated pneumothorax. Loculated pneumothorax Multifocal pneumonia - prolonged hospitalization for treatment of legionella pneumonia, mirabilis pneumonia, and necrotizing aspergillosis. Also possible aspiration pneumonia - had MAC in sputum culture as well - s/p chest tube 12/16 -12/29. Fluid exudative. Cultures negative. - Had finished treatment with zosyn and linezolid. was receiving antibiotics micafungin, cresemba and valganciclovir. - Fever and leukocytosis 01/21. - blood cultures collected at rehab 01/21 - CT chest 01/21 showing development of moderate loculated right pneumothorax with anterior and apical component, persistent extensive right lung consolidation compatible with pneumonia, slight improvement in mild patchy and nodular left lung opacities. - Cefepime was added per ID. - Continue cefepime, micafungin IV, Cresemba 372mg QD, valganciclovir 900mg BID - Per rehab discussion with pulmonary, hold on chest tube at the time. They plan to evaluate in am - pulmonary and ID consult CMV viremia - on valganciclovir 900mg BID Bilateral rib fractures - / cpr - continue pain medication. COPD - 2-3L oxygen requirement baseline - currently on 3L - continue 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 inhalers Paroxysmal Atrial Fibrillation - currently on digoxin, metoprolol and xarelto - hold xarelto in anticipation for pulm procedure CAD s/p PCI HTN/HLD - 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, Cardizem and Lipitor being held at rehab. Continue to hold and monitor hemodynamics - continue lasix, metoprolol AAA - 12/20/17 showing fusiform infrarenal abdominal aortic aneurysm measuring up to 4.9 cm in maximum diameter. - will need monitoring GERD - continue PPI Code status: Patient was previously DNAR-FI at rehab. Discussed code status. He states that he was only saying that because of what he went through last time and that he wants to leave. He will like all attempt at resuscitation. Disposition: Admit to medicine __ Primary Care Physician: Flavio Jackson Chief Complaint: History of Present Illness: Nancy Trujillo is a 62 y.o. male with history of HTN, HLD, CAD, CHF, COPD on 2-3L qhs, Afib, who is being admitted from rehab with worsening fever, tachycardia, leukocytosis and loculated hydropneumothorax. Patient had a prolonged hospital course after initial admission with legionella pneumonia complicated by septic shock and respiratory failure. He was being treated for multi focal pneumonia Hospital stay was also complicated by PEA arrest requiring reintubation. He had PEG and chest tube placement which have been since removed. He was transferred to rehab after prolonged hospitalization. Patient was doing well at rehab over the past week. Few days ago, he noticed nausea towards the end of his PT sessions. He also has noticed worsening shortness of breath. His breathing is ok at rest. He denies any chest pain. He had fever and chills this morning. He otherwise denies other concern or complaint. 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 Medications: Medications Prior to Admission Medication Sig acetaminophen (TYLENOL) 160 mg/5 mL oral solution 20.3 mL by Per NG tube route every 4 hours as needed. Max of 4,000 mg of acetaminophen in 24 hours. albuterol (PROAIR HFA, VENTOLIN HFA, OR PROVENTIL HFA) 90 mcg/actuation inhaler Inhale two puffs by mouth into the lungs four times daily as needed for Wheezing or Shortness of Breath. Shake well before use. ascorbic acid (VITAMIN C) 500 mg tablet one tablet by Per NG tube route daily. budesonide/formoterol (SYMBICORT) 160/4.5 mcg HFAA inhalation Inhale 2 Puffs by mouth twice daily. cefepime (MAXIPIME) 1 g/10 mL 1 g in dextrose 5% (D5W) 5 % 100 mL IVPB (MB+ ) Administer one g through vein every 8 hours. cholecalciferol (VITAMIN D-3) 400 unit tab tablet Take one tablet by mouth daily. dextran 70/hypromellose (GENTEAL TEARS; BION TEARS) 0.1/0.3 % dpet ophthalmic solution Apply one drop to both eyes every 6 hours as needed for Dry Eyes. digoxin (LANOXIN) 250 mcg tablet one tablet by Per NG tube route daily. [START ON 01/22/2018] fluticasone (FLONASE) 50 mcg/actuation nasal spray Apply two sprays to each nostril as directed daily. Shake bottle gently before using. furosemide (LASIX) 20 mg tablet Take three tablets by mouth twice daily. guaiFENesin (ROBITUSSIN) 100 mg/5 mL oral solution 10 mL by Per NG tube route every 4 hours. HYDROcodone/acetaminophen (NORCO) 5/325 mg tablet Take one tablet by mouth every 6 hours as needed isavuconazonium sulfate (CRESEMBA) 186 mg capsule Take [...] Take one-half tablet by mouth twice daily. [START ON 01/22/2018] micafungin (MYCAMINE) 100 mg/5 mL 100 mg, micafungin ( MYCAMINE) 50 mg/5 mL 50 mg in sodium chloride 0.9% (NS) 0.9 % 110 mL IVPB Administer 150 mg through vein every [address] (PROTONIX) 40 mg tablet Take one tablet by mouth daily. phenol (CLORASEPTIC; PHENASEPTIC) 1.4 % spra Take two sprays by mouth or throat as directed as Needed. rivaroxaban (XARELTO) 20 mg tab tablet Take 20 mg by mouth daily with dinner. thiamine mononitrate 100 mg tablet one tablet by Per NG tube route daily. tiotropium (SPIRIVA) 18 mcg capsule for inhaler Inhale 18 mcg by mouth daily. valGANciclovir (VALCYTE) 450 mg tablet Take two tablets by mouth twice daily with meals. For 4-6 more weeks. vitamin A & D oint Apply topically to affected area daily. Apply A&D ointment to wounds and cover with a Biatain foam. Dressing changes daily and PRN for soiling. vitamins, multi w/iron (CERTAVITE) oral solution 15 mL by Per NG tube route daily. [START ON 01/22/2018] vitamins, multi w/minerals 9 mg iron-400 mcg tab Take one tablet by mouth daily. Current Facility-Administered Medications Medication acetaminophen (TYLENOL) tablet 650 mg albuterol (PROAIR HFA, VENTOLIN HFA, or PROVENTIL HFA) inhaler 2 puff aluminum/magnesium hydroxide (MAALOX) oral suspension 30 mL [START ON 01/22/2018] ascorbic acid (VITAMIN C) tablet 500 mg budesonide/formoterol (SYMBICORT HFA) 160/4.5 mcg inhalation 2 puff cefepime (MAXIPIME) 1 g/50 ml iso-osmotic IVPB [START ON 01/22/2018] cholecalciferol (VITAMIN D-3) tablet 400 Units [START ON 01/22/2018] digoxin (LANOXIN) tablet 250 mcg docusate (COLACE) capsule 200 mg [START ON 01/22/2018] fluticasone (FLONASE) nasal spray 2 spray [START ON 01/22/2018] furosemide (LASIX) tablet 60 mg guaiFENesin LA (MUCINEX) tablet 600 mg HYDROcodone/acetaminophen (NORCO) 5/325 mg tablet 1 tablet isavuconazonium sulfate (CRESEMBA) capsule 372 mg lidocaine (LIDODERM) 5 % topical patch 1-2 patch magnesium oxide (MAG-OX) tablet 400 mg melatonin tablet 5 mg metoprolol tartrate (LOPRESSOR) tablet 12.5 mg [START ON 01/22/2018] micafungin (MYCAMINE) 150 mg in sodium chloride 0.9% ( NS) 110 mL IVPB [START ON 01/22/2018] ondansetron (ZOFRAN) tablet [address] (PROTONIX) tablet 40 mg polyethylene glycol 3350 (MIRALAX) packet 17 g senna (SENOKOT) tablet 2 tablet [START ON 01/22/2018] sodium chloride PF 0.9% flush 30 mL [START ON 01/22/2018] thiamine mononitrate tablet 100 mg [START ON 01/22/2018] tiotropium (SPIRIVA) capsule for inhaler 1 capsule [START ON 01/22/2018] valGANciclovir (VALCYTE) tablet 900 mg [START ON 01/22/2018] vitamin A & D topical ointment [START ON 01/22/2018] vitamins, multi w/minerals tablet 1 tablet Review of Systems: Constitutional: + fever, + chills, denies night sweats, weight loss Eyes: denies double vision, sudden vision loss ENT & mouth:denies ringing in the ears, sudden hearing loss Cardiovascular: denies chest pain, palpitations Respiratory:denies cough, + shortness of breath GI: + nausea, denies vomiting, diarrhea, constipation : denies increased urinary frequency, dysuria Musculoskeletal: denies joint pain, weakness Skin: denies new skin rash or skin lesions Neurological:denies dizziness, loss of consciousness Psychiatric: denies depression, suicidal ideation Endocrine: denies heat or cold intolerance Hematology/lymphatic: denies abnormal bleeding, bruising, new lymph nodes Physical Exam: Vital Signs: Last Filed In 24 Hours Vital Signs: 24 Hour Range BP: 107/67 (01/21 1846) Temp: 36.6 C (97.9 F) (01/21 1846) Pulse: 110 (01/21 1846) Respirations: 18 PER MINUTE (01/21 1846) SpO2: 92 % (01/21 1846) O2 Delivery: Nasal Cannula (01/21 1846) BP: (94-150)/(57-74) Temp: [36.3 C (97.4 F)-38.3 C (100.9 F)] Pulse: [59-129] Respirations: [18 PER MINUTE-22 PER MINUTE] SpO2: [83 %-99 %] O2 Delivery: Nasal Cannula Physical Exam : General: Alert & cooperative, NAD Head: Normocephalic, atraumatic Eyes: Conjunctiva clear. PERRL, EOMI. Neck: Supple, symmetrical, no adenopathy, no JVD Lungs: Clear to auscultation with coarse breath sound in right lung filed Heart: Tachycardic, irregular rhythm, no murmur, rub, click, or gallop Abdomen: Soft, non-tender. Bowel sounds normal. Old peg site Clean and dry. No masses. No organomegaly. Extremities: Extremities normal, atraumatic, no cyanosis, trace edema Pulses: 2+ and symmetric, all extremities Neuro: No focal deficits. Lab/Radiology/Other Diagnostic Tests: 24-hour labs: Labs from this morning reviewed Pertinent radiology reviewed. IMPRESSION 1. Development of a moderate loculated right pneumothorax with anterior and apical components. This was discussed with Dr. Santoro by telephone at 4:14 PM on 01/21/2018. 2. Persistent extensive right lung consolidation compatible with pneumonia. 3. Slight improvement in mild patchy and nodular left lung opacities compatible with resolving pneumonia and scarring. Left pleural effusion has resolved. A follow-up chest CT in 6 months is recommended to assess for stability or improvement of nodular components. 4. Marked emphysema. 5. At least moderate coronary artery calcification. 6. Healing bilateral anterior rib fractures. Shirin Wallace MD Pager [phone] NESS TRANSFORMATION CONSULTANT in this encounter Consult Notes * Tim Joiner MD - 02/02/2018 1:26 PM BUSINESS TRANSFORMATION CONSULTANT Associated Order(s): CONSULT REHABILITATION MEDICINE PHYSICIAN Physical Medicine & Rehabilitation Consult Note Date of Service: 02/02/2018 Nancy Trujillo is a 62 y.o. male. 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 male admitted to [facility] on 01/21/2018 with the following issues: Likely critical illness myopathy in setting of significant medical complications Impairments: weakness Activity Limitations: bathing, dressing - upper, dressing - lower, transfers and ambulation Participation Restrictions: unable to return home safely Post-acute care rehabilitation needs: acute inpatient rehabilitation Given the patient's high medical complexity and co morbidities including, but not limited to acute on chronic respiratory failure with underlying necrotizing PNA, complicating loculated pleural effusions requiring surgical clearance and drainage, likely critical illness myopathy, post operative pain requiring opiate medication management, increased caloric needs for healing, and in conjunction with significant functional goals with PT and OT, the patient will require daily physician oversight and intensive rehab therapies at an acute inpatient rehabilitation after acute inpatient hospitalization. Our service will continue to monitor functional progress with current barriers to acute inpatient rehab listed below. 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 Please call our consult pager with questions or concerns. Tim Joiner MD Rehab Consult Pager: [phone] History of Present Illness Hospital Course: Mr Trujillo is a 62 y/o M Pt is working with PT and OT to address functional and mobility deficits, rehab is now consulted for post-acute rehab/placement recommendations. Mr. Nancy Trujillo is a 62 yo M with PMH [...] PEG placement, thoracentesis s/p chest tube placement. Patient with multi-organism pneumoniaon IV cefepime, managed by ID,necrotizing aspergillosis. He was re-admitted on 01/21 due to ongoing tachycardia, worsening leukocytosis, and recurrent pneumothorax and transferred to the MICU with 3/4 SIRs [...] in the setting of loculated pleural effusion (persistent). he is currently with a Rt pleural drain to water seal and tolerating 2L NC. No fever recorded since readmission. He is working with rehab therapies, currently min assist for gait w/ RW (25ft) with PT, transferring form bed to chair w/ min assist and RW. 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 Godfrey. Past Surgical History: Procedure Laterality Date CARDIOVERSION CORONARY STENT PLACEMENT Social History Socioeconomic History Marital status: Spouse [...] file Social History Narrative Not on file History reviewed. No pertinent family history. Scheduled Meds: acetylcysteine (MUCOMYST) 200 mg/mL (20 %) nebulizer solution 3 mL 3 mL Inhalation Q12H albuterol 0.5% (PROVENTIL; VENTOLIN) nebulizer solution 2.5 mg 2.5 mg Inhalation BID & PRN ascorbic acid (VITAMIN C) tablet 500 mg 500 mg Oral QDAY cholecalciferol (VITAMIN D-3) tablet 400 Units 400 Units Oral QDAY docusate (COLACE) capsule 200 mg 200 mg Oral BID enoxaparin (LOVENOX) syringe 40 [...] (SENOKOT) tablet 2 tablet 2 tablet Oral BID sodium chloride PF 0.9% flush 30 mL 30 mL Intravenous FLUSH TID thiamine mononitrate tablet 100 mg 100 mg Oral QDAY umeclidinium-vilanterol (ANORO ELLIPTA) 62.5-25 mcg/actuation inhaler 1 puff 1 puff Inhalation QDAY vitamin A & D topical ointment Topical QDAY vitamins, multi w/minerals tablet 1 tablet 1 tablet Oral QDAY Continuous Infusions: PRN and Respiratory Meds:acetaminophen Q6H PRN, alteplase BID PRN, magnesium sulfate PRN AND [] Magnesium PRN AND Notify Physician Ongoing, naloxone PRN, oxyCODONE Q3H PRN, potassium chloride SR PRN OR potassium chloride PRN No Known Allergies Prior Level of Function Self-Care/ADLs: Independent Mobility: independent at community level w/o assistive device Home Environment: Home Situation: Lives with Family (01/27/2018 10:00 AM) Patient Owned Equipment: None (12/30/2017 10:00 AM) Type of Home: House (02/01/2018 2:00 PM) Entry Stairs: 3-5 Stairs (5, family [...] stairs. (2017 1:00 PM) No Data Recorded @ADDRESSFULL@ Current Level Of Function: PT Gait:Gait Distance: 25 feet(+40) Gait: Assistance Level: Minimal Assist, Management of Lines, Safety Considerations Gait: Assistive Device: Roller Walker Bed Mobility/Transfers Bed Mobility: Rolling: Standby Assist, Verbal Cues, Use of Rail Bed Mobility: Supine to Sit: Standby Assist, Use of Rail, Requires Extra Time, Safety Considerations Transfer Type: Sit to/from Stand Transfer: Assistance Level: From, Bed, To, Bed Side Chair, Minimal Assist Transfer: Assistive Device: Roller Walker Transfers: Type Of Assistance: Elevated Bed, For Strength Deficit, For Safety Considerations Other Transfer Type: Sit to/from Stand Other Transfer: Assistance Level: Moderate Assist(to/from low couch) Other Transfer: Assistive Device: Roller Walker Other Transfer: Type Of Assistance: For Strength Deficit, For Safety Considerations End Of Activity Status: Up in Chair, Instructed Patient to Request Assist with Mobility Comments: Vitals WNL with short distance transfer/steps OT ADL's Where Assessed: In Bathroom Eating Assist: Independent Eating Deficits: No Assist Needed LE Dressing Assist: Stand By Assist LE Dressing Deficits: Increased Time To Complete, Verbal Cueing, Setup Toileting Assist: Moderate Assist Toileting Deficits: Steadying, Perineal Hygiene Functional Transfer Assist: Moderate Assist(sit <> stands; Minimal assist ( Contact Guard) with walker) Functional Transfer Deficits: Steadying, Verbal Cueing, Supervision/Safety, Increased Time to Complete Comment: ADLs per [...] Stand by assist for sit to supine. 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 Gen: awake, alert, NAD HEENT: NCAT, EOMI, MMM Neck: Supple and symmetric Heart: Extremities are well perfused Lungs: respirations even and non-labored, Rt CT to water seal Abdomen: Soft, non-distended Psych: pleasant mood/appropriate affect Ext: No c/c/e MS: Root Right Left Elbow Flexion C5 5 5 Wrist Extension C6 5 5 Elbow Extension C7 4 4 Finger Flexion C8 5 5 Finger Abduction T1 5 5 Hip Flexion L2 3 3 Knee Extension L3 4 4 Dorsiflexion L4 4 4 EHL Extension L5 4 4 Plantarflexion S1 4 4 Neuro: Cranial Nerves Cranial Nerves 2-12 are grossly intact DTR's no hyperreflexia Upper Extremity Sensation Intact to light touch bilaterally Lower Extremity Sensation Intact to light touch bilaterally Clonus Negative Bilaterally Memory/Concentration grossly intact Intake/Output Summary (Last 24 hours) at 02/02/2018 1404 Last data filed at 02/02/2018 1200 Gross per 24 hour Intake 1425 ml Output 2850 ml Net -1425 ml Hematology: Lab Results Component Value Date HGB 7.7 02/02/2018 HCT 23.2 02/02/2018 PLTCT 218 02/02/2018 WBC 11.1 02/02/2018 NEUT 87 02/02/2018 ANC 9.70 02/02/2018 LYMPH 3 12/19/2017 ALC 1.00 02/02/2018 YOGI 3 02/02/2018 AMC 0.30 02/02/2018 ABC 0.10 02/02/2018 MCV 102.5 02/02/2018 MCHC 33.1 02/02/2018 MPV 7.4 02/02/2018 RDW 18.0 02/02/2018 , Coagulation: Lab Results Component Value Date PTT 34.7 01/02/2018 INR 1.3 01/02/2018 and General Chemistry: Lab Results Component Value Date NA 140 02/02/2018 K 3.9 02/02/2018 CL 108 02/02/2018 GAP 4 02/02/2018 BUN 7 02/02/2018 CR 1.40 02/02/2018 GLU 103 02/02/2018 CA 8.2 02/02/2018 ALBUMIN 1.9 02/01/2018 OBSCA 1.00 12/02/2017 MG 1.7 02/02/2018 TOTBILI 0.3 02/01/2018 Tim Joiner MD NESS TRANSFORMATION CONSULTANT * Cici Jenkins - 01/22/2018 5:07 PM BUSINESS TRANSFORMATION CONSULTANT Associated Order(s): CONSULT PULMONARY/CRITICAL CARE PHYSICIAN Pulmonary and Critical Care Medicine Consult Admission Date: 01/21/2018 LOS: 1 day Reason for Pulmonary Consult: "loculated pneumothorax" Active Problems: CAD (coronary artery disease) Paroxysmal 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 (HCC) S/P ablation of 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 Pneumonia Cytomegalovirus (CMV) viremia (HCC) Loculated pleural effusion Acute on chronic respiratory failure with hypoxia and hypercapnia (HCC) Sepsis (HCC) Pulmonary aspergillosis invasive type (HCC) COPD, severe (HCC) Secondary spontaneous pneumothorax Legionella pneumonia (HCC) Impression: Nancy Trujillo is a 62 y.o. male w/ h/o CAD s/p PCI in 2012, afib, HTN, COPD on 2-3L at baseline, HLD and recent prolonged hospitalization for respiratory infections c/b PEA arrest and multiple intubations and pulmonary procedures. He is now transferred back to [facility] from rehab for fevers, leukocytosis, shortness of breath, and tachycardia. CT chest shows new loculated R hydropneumothorax w/ minimal preserved lung parenchyma, most of which appears consolidated. During his previous admission, culture data and additional studies were positive for Legionella and Tamar glabrata, as well as Aspergillus. Later, BAL studies were also positive for HSV/CMV (reactivation?) and DAVID. More recently at rehab, his sputum culture from 01/16 grew Proteus. He was on cresemba , braden and valcyte at rehab w/ cefepime added 01/16. Today, his bacterial coverage was broadened to vanc/zosyn. # R hydropneumothorax # Sepsis secondary to pulmonary source # COPD Recommendation: - He clearly has had progression of infection in his R pleural space w/ development of an impressive hydropneumothorax. We will place chest tube and plan to start TPA/dornase tonight. - Continue NPO status and hold xarelto (last dose 12/7 a.m.). - Given his tenuous clinical status (already tachypneic to 30s and tachycardic in afib to 120s) and potential for SIRS response to chest tube placement, will move to MICU for closer monitoring. Discussed w/ primary team. Patient was seen and discussed w/ Dr. Flores. Please see his attestation for updates to recommendations. Cici Jenkins MD PGY-4, Pulmonary Disease & Critical Care Medicine Pager [phone] History of Present Illness: Nancy Trujillo is a 62 y.o. male with h/o CAD s/p PCI in 2012, afib, HTN, COPD on 2-3L at baseline, HLD and recent prolonged hospitalization for respiratory infections who is now transferred back to [facility] from rehab for fevers , leukocytosis, shortness of breath, and tachycardia. CT chest shows loculated R hydropneumothorax w/ minimal consolidated lung parenchyma visible. Patient reports that he was doing well at rehab until about two weeks ago when he had an episode of nausea and vomiting. About one week later, he had a similar episode, which is unusual for him. Over the past week, he has had fevers , chills, and has felt increasingly fatigued and weak. Then, for the past two days, he has had increased work of breathing and shortness of breath w/ some productive cough (clear phleghm). Regarding his recent prolonged hospitalization, please see discharge summary for details. Briefly, he was admitted to OSH 10/31 w/ septic shock from Legionella pneumonia. BAL also grew Tamar glabrata. He required intubation/ extubation x 3. He was then transferred to [facility] where he again tested positive for Legionella. He had a PEA arrest on 11/18 secondary to mucus plugging, resulting in broken ribs and sternum. Bronchoscopy w/ BAL on 11/19 revealed necrotizing Aspergillus w/ fungitell of 38. He continued to have intermittent episodes of worsening hypoxia requiring comfort flow or intubation. Thoracentesis from 12/16 was exudative. BAL from 12/20 grew DAVID (AFB from 12/21 is NGTD). BAL from 12/21 was positive for CMV and HSV, though cultures remained negative. A chest tube was in place from 12/22 to 12/29. He was finally stable enough for transfer to rehab on 12/31 on cresemba, micafungin, and valcyte. Unfortunately, he was febrile 01/16, so cefepime was added per ID. BCx from 01/16 are NGTD w/ sputum cx positive for mcintyre-sensitive Proteus. He was febrile again on 01/19, and BCx remain NG. Review of Systems: Constitutional: + fever or chills, + weight loss. HEENT: No sinus tenderness or drainage. No headaches. CV: No chest pain, palpitations, or LE swelling. RESP: As per HPI. ABD: No diarrhea, constipation or pain. + intermittent N/V. Skin: No rash or wounds. MSK: No joint arthralgias or joint swelling. Heme: No bleeding or unilateral leg or arm swelling. : No dysuria or hematuria. Neuro: No focal deficits, headache, or change in vision. + dizziness w/ standing on occasion. Lymph: No lymphadenopathy. Psych: Mood is stable. Past Medical History: Past Medical History: Diagnosis Date AF (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) ([facility]) 08/15/2012 CAD (coronary artery disease) 08/15/2012 CHF (congestive heart failure) ([facility]) 08/15/2012 COPD (chronic obstructive pulmonary disease) ([facility]) 08/15/2012 HLD (hyperlipidemia) 08/15/2012 HTN (hypertension) 08/15/2012 LA thrombus 08/15/2012 care home current use of anticoagulant 08/15/2012 S/P ablation of 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 05/04/2013 05/04/13 A fib ablation by Dr. Godfrey. Past Surgical History: Past Surgical History: Procedure Laterality Date CARDIOVERSION CORONARY STENT PLACEMENT Social History: Social History Socioeconomic History Marital status: Spouse [...] Activity Alcohol use: Yes Comment: 6 per week Drug use: No Sexual activity: Not on file Other Topics Concern Not on file Social History Narrative Not on file Family History: No family history on file. Allergies: Patient has no known allergies. Medications Prior to Admission Medication Sig Dispense Refill Last Dose acetaminophen (TYLENOL) 160 mg/5 mL oral solution 20.3 mL by Per NG tube route every 4 hours as needed. Max of 4,000 mg of acetaminophen in 24 hours. 240 mL 0 albuterol (PROAIR HFA, VENTOLIN HFA, OR PROVENTIL HFA) 90 mcg/actuation inhaler Inhale two puffs by mouth into the lungs four times daily as needed for Wheezing or Shortness of Breath. Shake well before use. ascorbic acid (VITAMIN C) 500 mg tablet one tablet by Per NG tube route daily. 90 tablet 3 budesonide/formoterol (SYMBICORT) 160/4.5 mcg HFAA inhalation Inhale 2 Puffs by mouth twice daily. Taking cefepime (MAXIPIME) 1 g/10 mL 1 g in dextrose 5% (D5W) 5 % 100 mL IVPB (MB+ ) Administer one g through vein every 8 hours. cholecalciferol (VITAMIN D-3) 400 unit tab tablet Take one tablet by mouth daily. dextran 70/hypromellose (GENTEAL TEARS; BION TEARS) 0.1/0.3 % dpet ophthalmic solution Apply one drop to both eyes every 6 hours as needed for Dry Eyes. digoxin (LANOXIN) 250 mcg tablet one tablet by Per NG tube route daily. 90 tablet 3 fluticasone (FLONASE) 50 mcg/actuation nasal spray Apply two sprays to each nostril as directed daily. Shake bottle gently before using. 48 g 3 furosemide (LASIX) 20 mg tablet Take three tablets by mouth twice daily. 90 tablet 3 guaiFENesin (ROBITUSSIN) 100 mg/5 mL oral solution 10 mL by Per NG tube route every 4 hours. 0 HYDROcodone/acetaminophen (NORCO) 5/325 mg tablet Take one tablet by mouth every 6 hours as needed 0 isavuconazonium sulfate (CRESEMBA) 186 mg capsule Take two capsules by mouth daily. For at least 3 months lidocaine (LIDODERM) 5 % topical patch Apply one patch to two patches topically to affected area every 24 hours. Apply patch for 12 hours, then remove for 12 hours before repeating. 30 patch magnesium oxide (MAG-OX) 400 mg (241.3 mg magnesium) tablet Take one tablet by mouth twice daily. 180 tablet 3 melatonin 5 mg tab one tablet by Per NG tube route at bedtime as needed. metoprolol tartrate (LOPRESSOR) 25 mg tablet Take one-half tablet by mouth twice daily. 180 tablet 3 micafungin (MYCAMINE) 100 mg/5 mL 100 mg, micafungin (MYCAMINE) 50 mg/5 mL 50 mg in sodium chloride 0.9% (NS) 0.9 % 110 mL IVPB Administer 150 mg through vein every [address] (PROTONIX) 40 mg tablet Take one tablet by mouth daily. 90 tablet 3 phenol (CLORASEPTIC; PHENASEPTIC) 1.4 % spra Take two sprays by mouth or throat as directed as Needed. 0 rivaroxaban (XARELTO) 20 mg tab tablet Take 20 mg by mouth daily with dinner. Taking thiamine mononitrate 100 mg tablet one tablet by Per NG tube route daily. tiotropium (SPIRIVA) 18 mcg capsule for inhaler Inhale 18 mcg by mouth daily. Taking valGANciclovir (VALCYTE) 450 mg tablet Take two tablets by mouth twice daily with meals. For 4-6 more weeks. 30 tablet 1 vitamin A & D oint Apply topically to affected area daily. Apply A&D ointment to wounds and cover with a Biatain foam. Dressing changes daily and PRN for soiling. vitamins, multi w/iron (CERTAVITE) oral solution 15 mL by Per NG tube route daily. 12 vitamins, multi w/minerals 9 mg iron-400 mcg tab Take one tablet by mouth daily. Medications: Scheduled Meds: ascorbic acid (VITAMIN C) tablet 500 mg 500 mg Oral QDAY budesonide/formoterol (SYMBICORT HFA) 160/4.5 mcg inhalation 2 puff 2 puff Inhalation BID cholecalciferol (VITAMIN D-3) tablet 400 Units 400 Units Oral QDAY digoxin (LANOXIN) tablet 250 mcg 250 mcg Oral QDAY docusate (COLACE) capsule 200 mg 200 mg Oral BID fluticasone (FLONASE) nasal spray 2 spray 2 spray Each Nostril QDAY furosemide (LASIX) tablet 60 mg 60 mg Oral BID(9-17) guaiFENesin LA (MUCINEX) tablet 600 mg 600 mg Oral BID isavuconazonium sulfate (CRESEMBA) capsule 372 mg 372 mg Oral QDAY(21) lidocaine (LIDODERM) 5 % topical patch 1-2 patch 1-2 patch Topical QDAY LIDOCAINE (PF) 10 MG/ML (1 %) IJ SOLN (Cabinet Override) NOW LIDOCAINE (PF) 10 MG/ML (1 %) IJ SOLN (Cabinet Override) NOW magnesium oxide (MAG-OX) tablet 400 mg 400 mg Oral BID metoprolol tartrate (LOPRESSOR) tablet 12.5 mg 12.5 mg Oral BID micafungin (MYCAMINE) 150 mg in sodium chloride 0.9% (NS) 110 mL IVPB 150 mg Intravenous Q24H* ondansetron (ZOFRAN) tablet 4 mg 4 mg Oral TID w/ meals pantoprazole DR (PROTONIX) tablet 40 mg 40 mg Oral QDAY(21) piperacillin/tazobactam (ZOSYN) 4.5 g in sodium chloride 0.9% (NS) 100 mL IVPB ( MB+) 4.5 g Intravenous Q6H* polyethylene glycol 3350 (MIRALAX) packet 17 g 1 packet Oral BID senna (SENOKOT) tablet 2 tablet 2 tablet Oral BID sodium chloride PF 0.9% flush 30 mL 30 mL Intravenous FLUSH TID thiamine mononitrate tablet 100 mg 100 mg Oral QDAY tiotropium (SPIRIVA) capsule for inhaler 1 capsule 1 capsule Inhalation QDAY valGANciclovir (VALCYTE) tablet 900 mg 900 mg Oral BID w/meals vancomycin (VANCOCIN) 1,250 mg in dextrose 5% (D5W) IVPB 1,250 mg Intravenous Q12H* vitamin A & D topical ointment Topical QDAY vitamins, multi w/minerals tablet 1 tablet 1 tablet Oral QDAY Continuous Infusions: PRN and Respiratory Meds:acetaminophen Q4H PRN, albuterol Q4H PRN, alteplase BID PRN, aluminum/magnesium hydroxide Q4H PRN, HYDROcodone/acetaminophen Q6H PRN , melatonin QHS PRN, [DISCONTINUED] vancomycin IVPB Q12H* AND vancomycin, pharmacy to manage Per Pharmacy Vital Signs: Last Filed in 24 hours Vital Signs: 24 hour Range BP: 114/84 (01/23 1600) Temp: 36.6 C (97.9 F) (01/22 1248) Pulse: 131 (01/22 1610) Respirations: 27 PER MINUTE (01/22 1610) SpO2: 94 % (01/22 1610) O2 Delivery: High Flow Nasal Cannula (01/23 1600) SpO2 Pulse: 134 (01/22 1600) Height: 182.9 cm (72") (01/22 124) BP: (96-137)/(53-84) Temp: [36.5 C (97.7 F)-36.9 C (98.5 F)] Pulse: [103-142] Respirations: [17 PER MINUTE-32 PER MINUTE] SpO2: [87 %-100 %] O2 Delivery: High Flow Nasal Cannula Physical Exam: Gen: AOx3, tachypneic, tachycardic, appears uncomfortable HEENT: Normocephalic, atraumatic. EOMI, PERRL, no oral lesions, MM dry. RESP: decreased breath sounds through R lung huang w/ few crackles, + accessory muscle use, increased WOB w/ paradoxical sternal motion. CVS: tachycardic, irregularly irregular rhythm, no murmurs, rubs or gallops. No JVD. ABD: Soft, non-tender, non-distended, BS+, no hepatosplenomegaly. Ext: No rashes, no edema, no joint swelling. Neuro: No gross deficits, strength 5/5, non-focal. Psych: Mood stable. Skin: No rashes on exposed skin. Warm and dry. Lab: Recent Labs 01/20/18 0508 01/21/18 0535 01/21/18 2256 01/22/18 0456 NA 134* 133* 130* 132* K 3.0* 3.2* 3.5 3.5 CL 97* 96* 94* 95* CO2 31* 32* 30 31* BUN 5* 5* 7 8 CR 0.47 0.43 0.49 0.47 GLU 100 84 103* 82 GAP 6 5 6 6 GFR >60 >60 >60 >60 MG -- -- -- 1.7 CA 8.3* 8.5 8.5 8.7 PO4 -- -- -- 3.4 Recent Labs 01/22/18 0456 ALKPHOS 115* AST 16 ALT 28 TOTPROT 6.2 TOTBILI 0.4 ALBUMIN 2.5* Recent Labs 01/21/18 0535 01/22/18 0456 HGB 10.2* 9.7* HCT 31.0* 29.9* WBC 19.4* 24.4* PLTCT 412* 423* No results for input(s): PHART, PCO2A, PO2ART, HCO3A, Z5VQFZCGB in the last 72 hours. Radiology and other diagnostic tests: I have personally reviewed all imaging and diagnostic tests. Cici Jenkins Pager [phone] NESS TRANSFORMATION CONSULTANT * Yuli Rankin MD - 01/22/2018 11:58 AM BUSINESS TRANSFORMATION CONSULTANT Thoracic Surgery Consult 01/22/2018 Patient: Nancy Trujillo Admission Date: 01/21/2018, LOS: 1 day Admission Diagnosis: Pneumonia [J18.9] Loculated pleural effusion [J90] Date of Service: January 22, 2018 Reason for Consult: empyema Referring Provider: David River MD Attending Surgeon: Dr. Mohan Do Consult Performed by: Yuli Rankin MD ASSESSMENT: 62 y.o. male with history of COPD, HTN, HLD, CAF, CHF and afib who presented from rehab with leukocytosis with CT scan showing worsening empyema. OR date: Active Problems: CAD (coronary artery disease) Paroxysmal 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 (HCC) S/P ablation of 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 Pneumonia Cytomegalovirus (CMV) viremia (HCC) Loculated pleural effusion Acute on chronic respiratory failure with hypoxia and hypercapnia (HCC) Sepsis (HCC) Pulmonary aspergillosis invasive type (HCC) COPD, severe (HCC) Secondary spontaneous pneumothorax Legionella pneumonia (HCC) PLAN: - No acute surgical intervention indicated at this time given low volume of healthy lung visible on the right side - Recommend IR drainage of inferior fluid collection to follow remaining healthy lung to expand - Continue abx therapy - Will continue to follow along as patient will likely need a staged surgery - Rest of care per primary team Discussed plan of care with staff surgeon, Dr. Johnson, who directed plan of care __ HPI: Nancy Trujillo is a 62 y.o. male with history of COPD, HTN, HLD, CAF, CHD and afib who was readmitted from rehab due to tachycardia, leukocytosis and fevers. CT scan was obtained which showed significant extensive right lung consolidation with bilateral effusions as well as significant emphysema throughout. Patient was initially admitted on 11/13 with respiratory failure and found to have legionella infection and invasive pulmonary aspergillosis. His hospitalization was complicated by septic shock, respiratory failure requiring multiple intubations and afib. He also went into PEA arrest. He was treated with an antibiotic course as well as a chest tube and discharged to rehab on 12/21. While at rehab, he was treated for proteus pneumonia starting in January and over the last couple days, his leukocytosis and fever have been worsening. He also started to experience frequent nausea and shortness of breath. CT scan was obtained with results summarized below. He has been afebrile since admission. He has required 3-5L NC. CT Chest: A right PICC remains in place. Axilla, Mediastinum and Linn: There is no axillary lymphadenopathy. A few mildly prominent mediastinal lymph nodes persist which are most likely reactive. No hilar lymphadenopathy is appreciated, no evaluation of the linn is limited without IV contrast. Heart and Great Vessels: The heart size is normal. There is a trace pericardial effusion. There is at least moderate coronary artery calcification. Lungs and Pleura: Moderate to severe emphysema is again seen throughout both lungs. Extensive right lung consolidation is again noted. A small loculated pneumothorax has developed anteriorly on the right with a small apical component. Patchy nodular opacities in the left lung have slightly improved. A moderate right pleural effusion has increased. Left pleural effusion has resolved.. Chest Wall and Osseous Structures: Bilateral healing anterior rib fractures are noted. Healing mid body sternal fracture is noted. Visualized Upper Abdomen: No significant upper abdominal abnormalities are identified. IMPRESSION 1. Development of a moderate loculated right pneumothorax with anterior and apical components. 2. Persistent extensive right lung consolidation compatible with pneumonia. 3. Slight improvement in mild patchy and nodular left lung opacities compatible with resolving pneumonia and scarring. Left pleural effusion has resolved. 4. Marked emphysema. 5. At least moderate coronary artery calcification. 6. Healing bilateral anterior rib fractures. Past Medical History: Diagnosis Date AF (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) ([facility]) 08/15/2012 CAD (coronary artery disease) 08/15/2012 CHF (congestive heart failure) ([facility]) 08/15/2012 COPD (chronic obstructive pulmonary disease) ([facility]) 08/15/2012 HLD (hyperlipidemia) 08/15/2012 HTN (hypertension) 08/15/2012 LA thrombus 08/15/2012 care home current use of anticoagulant 08/15/2012 S/P ablation of 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 05/04/2013 05/04/13 A fib ablation by Dr. Godfrey. No current facility-administered medications on file prior to encounter. Current Outpatient Medications on File Prior to Encounter Medication Sig Dispense Refill acetaminophen (TYLENOL) 160 mg/5 mL oral solution 20.3 mL by Per NG tube route every 4 hours as needed. Max of 4,000 mg of acetaminophen in 24 hours. 240 mL 0 albuterol (PROAIR HFA, VENTOLIN HFA, OR PROVENTIL HFA) 90 mcg/actuation inhaler Inhale two puffs by mouth into the lungs four times daily as needed for Wheezing or Shortness of Breath. Shake well before use. ascorbic acid (VITAMIN C) 500 mg tablet one tablet by Per NG tube route daily. 90 tablet 3 budesonide/formoterol (SYMBICORT) 160/4.5 mcg HFAA inhalation Inhale 2 Puffs by mouth twice daily. cefepime (MAXIPIME) 1 g/10 mL 1 g in dextrose 5% (D5W) 5 % 100 mL IVPB (MB+ ) Administer one g through vein every 8 hours. cholecalciferol (VITAMIN D-3) 400 unit tab tablet Take one tablet by mouth daily. dextran 70/hypromellose (GENTEAL TEARS; BION TEARS) 0.1/0.3 % dpet ophthalmic solution Apply one drop to both eyes every 6 hours as needed for Dry Eyes. digoxin (LANOXIN) 250 mcg tablet one tablet by Per NG tube route daily. 90 tablet 3 fluticasone (FLONASE) 50 mcg/actuation nasal spray Apply two sprays to each nostril as directed daily. Shake bottle gently before using. 48 g 3 furosemide (LASIX) 20 mg tablet Take three tablets by mouth twice daily. 90 tablet 3 guaiFENesin (ROBITUSSIN) 100 mg/5 mL oral solution 10 mL by Per NG tube route every 4 hours. 0 HYDROcodone/acetaminophen (NORCO) 5/325 mg tablet Take one tablet by mouth every 6 hours as needed 0 isavuconazonium sulfate (CRESEMBA) 186 mg capsule Take two capsules by mouth daily. For at least 3 months lidocaine (LIDODERM) 5 % topical patch Apply one patch to two patches topically to affected area every 24 hours. Apply patch for 12 hours, then remove for 12 hours before repeating. 30 patch magnesium oxide (MAG-OX) 400 mg (241.3 mg magnesium) tablet Take one tablet by mouth twice daily. 180 tablet 3 melatonin 5 mg tab one tablet by Per NG tube route at bedtime as needed. metoprolol tartrate (LOPRESSOR) 25 mg tablet Take one-half tablet by mouth twice daily. 180 tablet 3 micafungin (MYCAMINE) 100 mg/5 mL 100 mg, micafungin (MYCAMINE) 50 mg/5 mL 50 mg in sodium chloride 0.9% (NS) 0.9 % 110 mL IVPB Administer 150 mg through vein every [address] (PROTONIX) 40 mg tablet Take one tablet by mouth daily. 90 tablet 3 phenol (CLORASEPTIC; PHENASEPTIC) 1.4 % spra Take two sprays by mouth or throat as directed as Needed. 0 rivaroxaban (XARELTO) 20 mg tab tablet Take 20 mg by mouth daily with dinner. thiamine mononitrate 100 mg tablet one tablet by Per NG tube route daily. tiotropium (SPIRIVA) 18 mcg capsule for inhaler Inhale 18 mcg by mouth daily. valGANciclovir (VALCYTE) 450 mg tablet Take two tablets by mouth twice daily with meals. For 4-6 more weeks. 30 tablet 1 vitamin A & D oint Apply topically to affected area daily. Apply A&D ointment to wounds and cover with a Biatain foam. Dressing changes daily and PRN for soiling. vitamins, multi w/iron (CERTAVITE) oral solution 15 mL by Per NG tube route daily. 12 vitamins, multi w/minerals 9 mg iron-400 mcg tab Take one tablet by mouth daily. Past Surgical History: Procedure Laterality Date CARDIOVERSION [...] Activity Alcohol use: Yes Comment: 6 per week Drug use: No Sexual activity: Not on file Other Topics Concern Not on file Social History Narrative Not on file ROS: Review of Systems Constitutional: Positive for chills and malaise/fatigue. HENT: Negative. Eyes: Negative. Respiratory: Positive for cough and shortness of breath. Negative for hemoptysis. Cardiovascular: Negative for chest pain and leg swelling. Gastrointestinal: Positive for nausea. Negative for abdominal pain and vomiting. Genitourinary: Negative. Musculoskeletal: Negative. Skin: Negative. Neurological: Positive for weakness. Endo/Heme/Allergies: Negative. Psychiatric/Behavioral: Negative. Vitals: BP: (94-118)/(53-79) Temp: [36.5 C (97.7 F)-37 C (98.6 F)] Pulse: [103-124] Respirations: [17 PER MINUTE-18 PER MINUTE] SpO2: [91 %-100 %] O2 Delivery: Nasal Cannula Physical Exam: Physical Exam Constitutional: He is oriented to person, place, and time. He appears well- developed. No distress. HENT: Head: Normocephalic and atraumatic. Eyes: EOM are normal. Neck: Normal range of motion. Cardiovascular: Intact distal pulses. tachycardic Pulmonary/Chest: Effort normal. No respiratory distress. He exhibits no tenderness. Abdominal: Soft. He exhibits no distension. There is no tenderness. Musculoskeletal: Normal range of motion. Neurological: He is alert and oriented to person, place, and time. Skin: Skin is warm and dry. He is not diaphoretic. Psychiatric: He has a normal mood and affect. Nursing note and vitals reviewed. Lab/Radiology/Other Diagnostic Tests: Lab Results Component Value Date/Time HGB 9.7 (L) 01/22/2018455 WBC 24.4 (H) 01/22/2018455 Lab Results Component Value Date/Time NA 132 (L) 01/22/20186 K 3.5 01/22/20186 CL 95 (L) 01/22/20186 CO2 31 (H) 01/22/20186 BUN 8 01/22/20186 CR 0.47 01/22/2018 0456 Yuli Rankin MD Personal Pager: # [phone] NESS TRANSFORMATION CONSULTANT Associated attestation - Mohan Johnson MD - 01/22/2018 10:53 PM BUSINESS TRANSFORMATION CONSULTANT I personally performed the gaytan portions of the E/M visit, and the physical exam discussed case with the resident and concur with documentation of history, physical exam, assessment, and treatment plan unless otherwise noted. I reviewed the films, discussed the case with Dr. Flores, and counseled the patient at length. Given his underlying emphysema, and degree of destruction of the right lung, I recommended CT guided drainage as the first step. More complex open surgery will likely be required. * Fco Messina MD - 01/22/2018 8:07 AM BUSINESS TRANSFORMATION CONSULTANT Associated Order(s): CONSULT INFECTIOUS DISEASES PHYSICIAN Infectious Diseases Initial Consult Today's Date: 01/22/2018 Admission Date: 01/21/2018 Reason for this consultation: I was asked to provide my opinion and recommendations regarding this 62-year-old man with worsening vascular status extensive emphysema and new pneumothorax on the right side I reviewed the patient record there were extensive and summarized them, I personally viewed the CT scan of the chest from 01/21/2018 showed extensive infiltrate in the right lung and loculated pneumothorax possible necrosis of the lung. Assessment: Invasive pulmonary aspergillosis in COPD patient with right-sided extensive disease -Worsening resp failure -Fever/leukocytosis 01/21 -Ct chest 01/21/2018: Development of a moderate [...] or improvement of nodular components. Marked emphysema Legionella pneumonia, also possible aspiration - At [...] - Fungitell 38, Galactomannan 0.052. 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 Not detected on first BAL, virus detected on 12/21/17 BAL. Significant debility P. mirabilis pneumonia 01/16/18 Recommendations: I did review the CT scan of the chest essentially does not have any normal lung tissue on the right side. I am not sure if he has pleural effusion, will get pulmonary opinion about that he also has a new loculated pneumothorax. He has extensive emphysema. His prognosis is very guarded. I do not think this is worsening Aspergillus pneumonia we will broaden his antibiotic with vancomycin and Zosyn. Follow blood culture will get sputum culture. For this time continue Valcyte and micafungin and Cresemba Monitor labs for toxicity History of Present Illness Nancy Trujillo is a 62 y.o. Nancy Trujillo is a 62 y.o. male With invasive aspergillosis, respiratory failure,CMV/HSV pneumonia, trasferred to inpatient for fever/leukocytosis and worsening O2 need 01/21/2018 Nancy is well known to ID from an extend acute hospital stay 11/13-12/31/17. He had significant problems with respiratory failure. He had legionella infection and was then diagnosed with invasive pulmonary aspergillosis and was started on treatment on 11/23/17. He continued on that, however was changed to salvage regimen with cresemba+micafungin on 12/22/17. Due to worsening respiratory status. He is now on cresemba +micafungin still. In addition he had CMV viremia. His initial BAL was negative for CMV PCR, however a BAL CMV PCR on 12/21/17. He was started on ganciclovir. Upon transfer to rehab he was switched to PO valgancyclovir. His respiratory status has remained tenuous and he has changing O2 needs. He has severe debility. He has been evaluated by CTS for possible surgery, but none planned at this point. He remains on antifungal and antiviral treatment. He was recently treated for Proteus pneumonia on 01/2018 with cefepime and then switched to ceftriaxone around 01/20/2018 then switched back to cefepime on 2017 for worsening leukocytosis and fever His white count went up again on 7017 his oxygen need increased to 4 L. He has been feeling nauseated over the last several days and he vomited a few days ago but this morning he does not feel nauseated. He had some loose stools but not this morning. He continued to cough some sputum not bloody. He denies sore throat. He has not been eating well lately. He denies abdominal pain may be a little bit of right upper quadrant pain. Yesterday because of the worsening respiratory status and the leukocytosis he had a repeat CT scan of the chest and the CT scan showed moderate loculated pneumothorax on the right side. And essentially no functional lung on the right side and extensive emphysema so he was transferred back to inpatient. He denies major chest pain he has minimal chest pain on the right side with cough but this is not new. Pain is mild.He denies any headache. He denies any decub ulcer. Minimal ulcer on the left thigh which is healing He denies dysuria. He has a PICC line in the right upper extremity this is old. His white count is up to 24,000 today. His creatinine remained okay recent blood cultures negative Abx Extensive history vanc 01/22 Zosyn 01/22 cresemba micafungin valcyte Estimated Creatinine Clearance: 109.9 mL/min (based on SCr of 0.47 mg/dL). 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 Godfrey. Past Surgical History Past Surgical History: Procedure Laterality Date CARDIOVERSION CORONARY STENT PLACEMENT Social History Social History Tobacco Use Smoking status: Former Smoker Packs/day: 2.00 Years: 30.00 Pack years: 60.00 Types: Cigarettes Last attempt to quit: 11/30/2017 Years since quittin.1 Smokeless tobacco: Former User Types: Chew Tobacco comment: down to 1/4 pack /day or less Substance Use Topics Alcohol use: Yes Comment: 6 per week Family History No h/o recurrent infections Allergies No Known Allergies Review of Systems A comprehensive 14-point review of systems was negative with exception of: Nausea Decreased appetite Cough shortness of breath and chest pain Debility and severe weakness and muscle atrophy Loose stools and right upper quadrant pain Ulcer on the left thigh No sore throat or headache or new vision issue No dysuria No joint swelling Weight loss the last few months Medications Scheduled Meds: ascorbic acid (VITAMIN C) tablet 500 mg 500 mg Oral QDAY budesonide/formoterol (SYMBICORT HFA) 160/4.5 mcg inhalation 2 puff 2 puff Inhalation BID cholecalciferol (VITAMIN D-3) tablet 400 Units 400 Units Oral QDAY digoxin (LANOXIN) tablet 250 mcg 250 mcg Oral QDAY docusate (COLACE) capsule 200 mg 200 mg Oral BID fluticasone (FLONASE) nasal spray 2 spray 2 spray Each Nostril QDAY furosemide (LASIX) tablet 60 mg 60 mg Oral BID(9-17) guaiFENesin LA (MUCINEX) tablet 600 mg 600 mg Oral BID INHALATIONAL SPACING DEVICE [facility] (Cabinet Override) NOW isavuconazonium sulfate (CRESEMBA) capsule 372 mg 372 mg Oral QDAY(21) lidocaine (LIDODERM) 5 % topical patch 1-2 patch 1-2 patch Topical QDAY magnesium oxide (MAG-OX) tablet 400 mg 400 mg Oral BID metoprolol tartrate (LOPRESSOR) tablet 12.5 mg 12.5 mg Oral BID micafungin (MYCAMINE) 150 mg in sodium chloride 0.9% (NS) 110 mL IVPB 150 mg Intravenous Q24H* ondansetron (ZOFRAN) tablet 4 mg 4 mg Oral TID w/ meals pantoprazole DR (PROTONIX) tablet 40 mg 40 mg Oral QDAY(21) piperacillin/tazobactam (ZOSYN) 4.5 g in sodium chloride 0.9% (NS) 100 mL IVPB ( MB+) 4.5 g Intravenous Q6H* polyethylene glycol 3350 (MIRALAX) packet 17 g 1 packet Oral BID senna (SENOKOT) tablet 2 tablet 2 tablet Oral BID sodium chloride PF 0.9% flush 30 mL 30 mL Intravenous FLUSH TID thiamine mononitrate tablet 100 mg 100 mg Oral QDAY tiotropium (SPIRIVA) capsule for inhaler 1 capsule 1 capsule Inhalation QDAY valGANciclovir (VALCYTE) tablet 900 mg 900 mg Oral BID w/meals vitamin A & D topical ointment Topical QDAY vitamins, multi w/minerals tablet 1 tablet 1 tablet Oral QDAY Continuous Infusions: PRN and Respiratory Meds:acetaminophen Q4H PRN, albuterol Q4H PRN, alteplase BID PRN, aluminum/magnesium hydroxide Q4H PRN, HYDROcodone/acetaminophen Q6H PRN , melatonin QHS PRN Physical Examination Vital Signs: Last Vital Signs: 24 Hour Range BP: 118/77 (01/23 424) Temp: 36.5 C (97.7 F) (01/23 424) Pulse: 108 (01/23 424) Respirations: 18 PER MINUTE (01/22 531) SpO2: 100 % (01/22 531) O2 Delivery: Nasal Cannula (01/23 424) BP: (94-118)/(53-77) Temp: [36.3 C (97.4 F)-37 C (98.6 F)] Pulse: [60-124] Respirations: [17 PER MINUTE-18 PER MINUTE] SpO2: [83 %-100 %] O2 Delivery: Nasal Cannula General: Alert, cooperative, in mild distress from SOB Head: Normocephalic, without obvious abnormality, atraumatic Eyes: Conjunctivae/corneas clear. PERRL, EOMs intact. No subconjuntival hemorrhages. Throat: Lips, mucosa and tongue normal. no thrush Neck: Supple, symmetrical, trachea midline, no rigidity Lungs: Does have some rhonchi on the left side but he has essentially minimal or no breath sounds on the right side, +flail chest Heart: Regular rate and rhythm Abdomen: Soft, slightly tender in the right upper quadrant Extremities: Extremities normal, atraumatic, no rash, no erythema, there is a minimal superficial ulcer on the medial left thigh, not infected some bruises Skin: Skin color, texture, turgor normal. Lymph nodes: Cervical, supraclavicular and axillary nodes normal Neurologic: Diffuse weakness Lab Review Hematology Recent Labs 01/21/18 0535 01/22/18 0456 WBC 19.4* 24.4* HGB 10.2* 9.7* HCT 31.0* 29.9* PLTCT 412* 423* Chemistry Recent Labs 01/21/18 0535 01/21/18 2256 01/22/18 0456 NA 133* 130* 132* K 3.2* 3.5 3.5 CL 96* 94* 95* CO2 32* 30 31* BUN 5* 7 8 CR 0.43 0.49 0.47 GFR >60 >60 >60 GLU 84 103* 82 CA 8.5 8.5 8.7 PO4 -- -- 3.4 ALBUMIN -- -- 2.5* ALKPHOS -- -- 115* AST -- -- 16 ALT -- -- 28 TOTBILI -- -- 0.4 Microbiology, Radiology and other Diagnostics Review Microbiology data reviewed. Pertinent radiology images viewed. Impression: Fco Messina MD Pager [phone] Infectious Diseases Faculty NESS TRANSFORMATION CONSULTANT in this encounter Miscellaneous Notes * Care Plan - Yanira Gutierrez RN - 02/02/2018 12:10 PM BUSINESS TRANSFORMATION CONSULTANT Problem: Discharge Planning Goal: Participation in plan of care Outcome: Goal Ongoing Pt is an active participant in plan of care. Goal: Knowledge regarding plan of care Outcome: Goal Ongoing Pt verbalizes understanding in plan of care. Goal: Prepared for discharge Outcome: Goal Ongoing DC plan ongoing. Problem: Infection, Risk of, Central Venous Catheter-Associated Bloodstream Infection Goal: Absence of CVC Associated Bloodstream infection Outcome: Goal Ongoing Alcohol swabs to all ports and connectors and CHG bathing. Problem: Falls, High Risk of Goal: Absence of falls-Adult Patient Outcome: Goal Ongoing High fall risk bundle in place. Problem: Pain Goal: Management of pain Outcome: Goal Ongoing Pain well controlled with current pain regimen. Problem: Respiratory Impairment (Non-Ventilated Patient) Goal: Effective gas exchange Outcome: Goal Ongoing Tolerating 2L NC. Problem: Skin Integrity Goal: Healing of skin (Wound & Incision) Outcome: Goal Ongoing Incisions/dressings C/D/I. Problem: Mobility/Activity Intolerance Goal: Maximize functional ADL's and mobility outcomes Outcome: Goal Ongoing PT following. Problem: Self-Care Deficit Goal: Maximize ADL functioning Outcome: Goal Ongoing OT following. NESS TRANSFORMATION CONSULTANT * Case Mgmt DC Plan - Kristy Linder - 02/02/2018 11:35 AM BUSINESS TRANSFORMATION CONSULTANT Case Management Progress NoteNAME:Nancy Trujillo :1955 AGE: 62 y.o. ADMISSION DATE: 01/21/2018 DAYS ADMITTED: LOS: 12 days Todays Date: 02/02/2018 Plan Pt to dc today at 1645 to [facility] via facility arranged stretcher van to next level of care. [facility] following for admit. However, they cannot accept pt with mini 500 atrium and are requesting for pt to be switched to heimlich valve. SW also sent referral to [facility] in [place] for further review in the event [facility] cannot accept. Per CTS team huddle this am, pt is medically stable for dc today. Interventions ? Support Support: Pt/Family Updates re:POC or DC Plan, Patient Education RANDY contacted pt's to notify her of the barrier to dc as well as update her on the rachaeler walker situation. SW notified that [facility] cannot accept pt for admit today d/t his mini atrium. SW asked if she would be agreeable to pt possibly going to a rehab facility closer to their home. was agreeable to trying [facility] in [place]. SW told her the same barrier may occur but that it was worth trying in case [facility] cannot accept. RANDY also notified her that the RW that was taken from pt's room when he was in room 6114 was in fact [facility]'s RW and not theirs. SW assured her that once pt dc's from [facility] setting, he will receive a RW from his insurance. thanked RANDY for same. Update 3pm SW left a vm for pt's notifying her that pt has been accepted to [facility] and they will plan to transfer patient at 4:45pm. ? Info or Referral Information or Referral to Community Resources: No Needs Identified ? Discharge Planning Discharge Planning: Inpatient Rehabilitation RANDY contacted Ansley at [facility] this am to notify them of pt being ready for dc today. Ansley to review pt and then f/u with RANDY when she is able. Update 10:30am RANDY received f/u call from Ansley and she notified SW their team cannot accept patient with a mini 500 atrium d/t lack of competency. Ansley notified RANDY the team will need to switch pt to a heimlich valve in order to be admitted. Ansley also told RANDY she had notified [employer] C[employer]TER SPUR Jonny Lund of same. RANDY paged Rehab team pager to verify if pt would be seen today and Dr. Thao with Rehab assured SW pt would be seen. RANDY faxed referral to [facility] via [employer] fax and also called their admissions to notify them of incoming referral. Update 3pm SW notified by Ansley with [facility] they are willing to accept pt with mini 500 atrium and can do a 4:45pm p/u via stretcher van. RANDY notified team and bedside RN of timeline. ? Medication Needs Medication Needs: No Needs Identified ? Financial Financial: No Needs Identified ? Legal Legal: No Needs Identified ? Other Other/None: No needs identified Disposition ? Expected Discharge Date Expected Discharge Date: 02/02/18(Simultaneous filing. User may not have seen previous data.) ? Transportation ? Next Level of Care (Acute Psych discharges only) ? Discharge Disposition Durable Medical Equipment No service has been selected for the patient. Destination - Selection Complete Service Provider Request Status Selected Services Address Phone Number Fax Number [facility] Selected Inpatient Rehabilitation [address] [facility] [address] Home Care No service has been selected for the patient. Dialysis/Infusion No service has been selected for the patient. Kristy Linder LMSW Surgery - Cardiothoracic/Vascular Golf Course Keeper *[id number] NESS TRANSFORMATION CONSULTANT * Case Mgmt DC Plan - Casandra Roque, CONSTANTIN - 02/02/2018 9:31 AM BUSINESS TRANSFORMATION CONSULTANT Per Danya Fairbanks (RANDY), patient is medically ready for dc today. Per chart review, Hgb at 7.7 GN/DL, WBC up at 11.1 K/UL, patient with CT to water seal still in place of which would need to be removed prior to rehab admission or changed to a one way valve (hemlic) for admission to 's IP Rehab unit. 5640 - Per further discussion between [facility] surgeon, Rehab Copying Machine Repairer, and Rehab Nurse Baseball Player, patient has been okayed for rehab admission with mini atrium CT in place. 1455 - Notified Danya RUBIO) that rehab able to admit today. Transportation will be scheduled for 1644 via w/c van with [facility]. Danya to notify patient's primary RN of discharge time, rehab bed assignment of 2216 and unit phone# for report (). Please leave in any functioning IV access for transition to 's IP rehab unit. Laila, Inpatient Admissions Nurse/Rehab. (office# [phone] or voalte# [phone]). NESS TRANSFORMATION CONSULTANT * Case Mgmt DC Plan - Kristy Linder - 02/01/2018 11:46 AM BUSINESS TRANSFORMATION CONSULTANT Case Management Progress NoteNAME:Nancy Trujillo :1955 AGE: 62 y.o. ADMISSION DATE: 01/21/2018 DAYS ADMITTED: LOS: 11 days Todays Date: 02/01/2018 Plan Planning for pt to dc to [facility] when stable for same. Team stating pt will potentially be ready for dc on Wednesday. Per CTS team huddle this am, pt to have CT's placed to mini 500 atrium. Pt tolerated it well. Pt will go to rehab with the atrium. Interventions ? Support Support: Pt/Family Updates re:POC or DC Plan, Patient Education RANDY contacted pt's this am to further discuss pt's missing RW. She told SW she was unaware it was missing but was disappointed to hear this. She told SW on the day of his readmit, she drove up from [place] and went directly to [facility] to obtain pt's RW and then brought it directly to his bedside on room 6114. SW apologized to that the RW has been lost and she told her she would contact patient relations to request their assistance in finding it. thanked SW for same. ? Info or Referral Information or Referral to Community Resources: No Needs Identified ? Discharge Planning Discharge Planning: Inpatient Rehabilitation SW to continue to watch for PMR recommendations and assist with transfer to [facility] when appropriate. SW also contacted patient relations to notify them of pt's missing RW. SW was notified by PT of pt verbalizing he has lost his RW. SW requesting assistance with locating RW since pt will not be allowed to obtain an additional RW for up to 5 years per insurance guidelines. RANDY contacted the aquatics coordinator on unit 6114 where pt was originally placed to verify if they had seen the RW. The aquatics coordinator denied same. ? Medication Needs Medication Needs: No Needs Identified ? Financial Financial: No Needs Identified ? Legal Legal: No Needs Identified ? Other Other/None: No needs identified Disposition ? Expected Discharge Date Expected Discharge Date: 02/02/18 ? Transportation ? Next Level of Care (Acute Psych discharges only) ? Discharge Disposition Durable Medical Equipment No service has been selected for the patient. Destination No service has been selected for the patient. Home Care No service has been selected for the patient. Dialysis/Infusion No service has been selected for the patient. Kristy Linder LMSW Surgery - Cardiothoracic/Vascular Golf Course Keeper *[id number] NESS TRANSFORMATION CONSULTANT * Case Mgmt DC Plan - Kristy Linder - 01/31/2018 3:34 PM BUSINESS TRANSFORMATION CONSULTANT Case Management Progress NoteNAME:Nancy Trujillo :1955 AGE: 62 y.o. ADMISSION DATE: 01/21/2018 DAYS ADMITTED: LOS: 10 days Todays Date: 01/31/2018 Plan Pt to likely return to [facility] for next level of care when stable for same. Team reporting possible for Wednesday dc if pt remains stable. Per CTS team huddle this am, pt is LOS 9 and s/p 3 from decortication of pleural effusion. Pt with some episodes of bradycardia over the weekend, lytes replaced, no events since. Pt reporting occasional nausea. Currently requiring fentanyl VISUAL EFFECTS ARTIST. Interventions ? Support Support: Pt/Family Updates re:POC or DC Plan, Patient Education ? Info or Referral Information or Referral to Community Resources: No Needs Identified ? Discharge Planning Discharge Planning: Inpatient Rehabilitation SW contacted [facility] this afternoon to notify them of pt likely being ready for dc on Wednesday of this week. RANDY also notified them that pt will need updated PT/OT notes since they have been unable to work with pt since last week. [facility] to f/u with SW once they are able to review pt. ? Medication Needs Medication Needs: No Needs Identified ? Financial Financial: No Needs Identified ? Legal Legal: No Needs Identified ? Other Other/None: No needs identified Disposition ? Expected Discharge Date Expected Discharge Date: 02/02/18 ? Transportation ? Next Level of Care (Acute Psych discharges only) ? Discharge Disposition Durable Medical Equipment No service has been selected for the patient. Destination No service has been selected for the patient. Home Care No service has been selected for the patient. Dialysis/Infusion No service has been selected for the patient. Kristy Linder LMSW Surgery - Cardiothoracic/Vascular Golf Course Keeper *[id number] NESS TRANSFORMATION CONSULTANT * Case Mgmt DC Plan - Kierra Quintanilla - 01/31/2018 12:01 PM BUSINESS TRANSFORMATION CONSULTANT Case Management Progress NoteNAME:Nancy Trujillo :1955 AGE: 62 y.o. ADMISSION DATE: 01/21/2018 DAYS ADMITTED: LOS: 10 days Todays Date: 01/31/2018 Plan Continue inpt care-Anticipate continuing inpatient stay x2 more days, then transition to [facility], will continue chest tubes to wall suction, aggressive pulm toilet, and wean O2 as able. Interventions ? Support ? Info or Referral ? Discharge Planning EMR and POC reviewed Per [facility] CUTTER SPUR note, anticipate pt will dc back to [facility] on dc. NCM spoke with pt and spouse and confirmed they are agreeable to going back to [facility]. NCM confirmed that pt was on [employer] pilot boat captain CM team to continue to follow for dc planning. ? Medication Needs ? Financial ? Legal ? Other Disposition ? Expected Discharge Date Expected Discharge Date: 02/01/18 ? Transportation Rehab to provide ? Discharge Disposition DC back to [facility] Kierra MARTINI, internal communications intern Nurse Spiral Gear Generator Inpatient Cardiothoracic Surgery M-F [id number] O: [phone] NESS TRANSFORMATION CONSULTANT * Anesthesia Post Op Day 1 - Sonia Mcdermott SRNA - 01/29/2018 11:53 AM BUSINESS TRANSFORMATION CONSULTANT Anesthesia Follow-Up Evaluation: Post-Procedure Day One Name: Nancy Trujillo : 1955 Age: 62 y.o. Sex: male Procedure Date: 01/28/2018 Procedure: Procedure(s): THORACOSCOPY, DEBRIDEMENT AND DECORTICATION OF RIGHT LUNG Physical Assessment Height: 182.9 cm (72") Weight: 76.6 kg (168 lb 14 oz) Vital Signs (Last Filed in 24 hours) BP: 124/102 (01/29 1000) Temp: 36.7 C (98.1 F) (01/29 0800) Pulse: 88 (01/29 1000) Respirations: 24 PER MINUTE (01/29 1000) SpO2: 98 % (01/29 1000) O2 Delivery: High Flow Nasal Cannula (01/29 1000) SpO2 Pulse: 88 (01/29 1000) Patient History Allergies No Known Allergies Medications Scheduled Meds: acetylcysteine (MUCOMYST) 200 mg/mL (20 %) nebulizer solution 3 mL 3 mL Inhalation Q12H albuterol 0.5% (PROVENTIL; VENTOLIN) nebulizer solution 2.5 mg 2.5 mg Inhalation BID & PRN ascorbic acid (VITAMIN C) tablet 500 mg 500 mg Oral QDAY cholecalciferol (VITAMIN D-3) tablet 400 Units 400 Units Oral QDAY docusate (COLACE) capsule 200 mg 200 mg Oral BID enoxaparin (LOVENOX) syringe 40 [...] (SENOKOT) tablet 2 tablet 2 tablet Oral BID sodium chloride PF 0.9% flush 30 mL 30 mL Intravenous FLUSH TID thiamine mononitrate tablet 100 mg 100 mg Oral QDAY umeclidinium-vilanterol (ANORO ELLIPTA) 62.5-25 mcg/actuation inhaler 1 puff 1 puff Inhalation QDAY vitamin A & D topical ointment Topical QDAY vitamins, multi w/minerals tablet 1 tablet 1 tablet Oral QDAY Continuous Infusions: fentaNYL (SUBLIMAZE) VISUAL EFFECTS ARTIST 550 mcg/ NS 55 mL infusion syr (std conc)(premade ) PRN and Respiratory Meds:acetaminophen Q4H PRN, alteplase BID PRN, HYDROcodone/ acetaminophen Q6H PRN, magnesium sulfate PRN AND [] Magnesium PRN AND Notify Physician Ongoing, naloxone PRN, potassium chloride SR PRN OR potassium chloride PRN Diagnostic Tests Hematology: Lab Results Component Value Date HGB 8.6 01/29/2018 HCT 26.8 01/29/2018 PLTCT 338 01/29/2018 WBC 13.4 01/29/2018 NEUT 91 01/29/2018 ANC 12.20 01/29/2018 LYMPH 3 12/19/2017 ALC 0.80 01/29/2018 YOGI 3 01/29/2018 AMC 0.40 01/29/2018 EOSA 0 01/29/2018 ABC 0.00 01/29/2018 MCV 104.8 01/29/2018 MCH 33.7 01/29/2018 MCHC 32.1 01/29/2018 MPV 6.9 01/29/2018 RDW 18.7 01/29/2018 General Chemistry: Lab Results Component Value Date NA 139 01/29/2018 K 3.4 01/29/2018 CL 107 01/29/2018 CO2 26 01/29/2018 GAP 6 01/29/2018 BUN 21 01/29/2018 CR 1.78 01/29/2018 GLU 117 01/29/2018 CA 7.5 01/29/2018 ALBUMIN 2.0 01/28/2018 OBSCA 1.00 12/02/2017 MG 2.1 01/29/2018 TOTBILI 0.3 01/28/2018 PO4 4.5 01/29/2018 Coagulation: Lab Results Component Value Date PTT 34.7 01/02/2018 INR 1.3 01/02/2018 Follow-Up Assessment Patient location during evaluation: floor Anesthetic Complications: Anesthetic complications: The patient did not experience any anesthestic complications. Pain: Management:adequate Level of Consciousness: awake and alert Hydration:acceptable Airway Patency: patent Respiratory Status: nasal cannula (1L O2 via NC ) Cardiovascular Status:acceptable and stable Regional/Neuroaxial: Comments: Fentanyl VISUAL EFFECTS ARTIST in place w/ EtCO2 monitoring NESS TRANSFORMATION CONSULTANT * Operative Report (DICTATED ONLY) - Mohan Johnson MD - 01/29/2018 11: 17 AM BUSINESS TRANSFORMATION CONSULTANT [address] [address] PATIENT NAME: NANCY TRUJILLO MR#/PT#: [id number] OPERATIVE REPORT : 1955 DATE OF OPERATION: 01/28/2018 ROOM #: HC408 OPERATIVE REPORT SURGEON: Mohan Johnson MD PREOPERATIVE DIAGNOSIS: Empyema. POSTOPERATIVE DIAGNOSIS: Empyema. OPERATIVE PROCEDURE: Left thoracoscopic decortication of the lung. ANESTHESIA: general INDICATIONS FOR OPERATIVE PROCEDURE: This is a debilitated 62-year-old with multiple comorbidities. We have been managing the patient with a pigtail catheter and intrapleural lytic therapy. The patient now presents for decortication. DESCRIPTION AND FINDINGS OF OPERATIVE PROCEDURE: After informed consent was obtained, the patient was brought to the operating room. He underwent general endotracheal anesthesia by our anesthesia colleagues. He received a dose of preoperative antibiotics as well as 5000 units of subcutaneous heparin prior to induction of anesthesia. He was positioned in the lateral decubitus position with the right side up. He was prepped and draped in usual standard manner. I made a small incision in the 6th interspace between the anterior and mid-axillary line. Using this single incision, we explored the patient's right chest. There was significant mucopurulent material along the pleural lining. This was mechanically debrided at length, and the entire lung was decorticated. A portion of the middle and upper lobe had extensive adhesions to the chest wall, which were left in place. After thoroughly cleaning out the pleural space, 2 separate chest tubes were placed, 1 through our single incision and the other more anteriorly. Liposomal bupivacaine was infiltrated into the chest wall to create an intercostal block. The patient tolerated the procedure well. He was taken back to the ICU in stable condition. ESTIMATED BLOOD LOSS: Negligible. I was present for the entirety of this case. SPONGE/INSTRUMENT COUNTS: Correct. Mohan Johnson MD [place]/MedQ Mohan Johnson MD / [place] [id number]//[id number] P cc: - Mohan Johnson MD NESS TRANSFORMATION CONSULTANT * Procedures (Immed Post or Bedside) - Mohan Johnson MD - 01/28/2018 12:02 PM BUSINESS TRANSFORMATION CONSULTANT Brief Operative Note Name: Nacny Trujillo is a 62 y.o. male : 1955 DATE OF OPERATION: 01/28/2018 Date: 01/28/2018 Preoperative Dx: Loculated pleural effusion [J90] Post-op Diagnosis * Loculated pleural effusion [J90] procedure: decortication of the right lung Anesthesia Type: Defer to Anesthesia Surgeon(s) and Role: * Mohan Johnson MD - Primary * Ismael Mendez MD - Fellow Findings: pleural peel; we were able to decorticate the majority of the lung Estimated Blood Loss: No blood loss documented. Specimen(s) Removed/Disposition: ID Type Source Tests Collected by Time Destination A : Right Lower Lobe Pleural Rind; Culture Tissue Pleural,Right CULTURE- ANAEROBIC, CULTURE-WOUND/TISSUE/FLUID(AEROBIC ONLY)W/SENSITIVITY, CULTURE-TB ( AFB), GRAM STAIN, CULTURE-FUNGAL,OTHER Mohan Johnson MD 01/28/2018 1153 Complications: None Implants: None Drains: None; two 24 fr drains into the chest. Disposition: ICU - stable MOHAN JOHNSON MD Pager NESS TRANSFORMATION CONSULTANT * Critical Results - Sandra Frances RN - 01/28/2018 4:58 AM BUSINESS TRANSFORMATION CONSULTANT Critical result or procedure called (document test and value, and read back): Digoxin 1.6 Time MD/TOOTH CUTTER SPUR Notified: 0410 MD/TOOTH CUTTER SPUR Name: Dakota SANDRA/TOOTH CUTTER SPUR Response/Orders Given: No additional orders at this time. NESS TRANSFORMATION CONSULTANT * Critical Results - Ioana Moreno - 01/27/2018 5:52 AM BUSINESS TRANSFORMATION CONSULTANT Critical result or procedure called (document test and value, and read back): Digoxin Time MD/TOOTH CUTTER SPUR Notified: 0352 MD/TOOTH CUTTER SPUR Name: Heaven SANDRA/TOOTH CUTTER SPUR Response/Orders Given: No new orders at this time NESS TRANSFORMATION CONSULTANT * Case Mgmt DC Plan - Geronimo Waters - 01/26/2018 3:53 PM BUSINESS TRANSFORMATION CONSULTANT Case Management Progress NoteNAME:Nancy Trujillo :1955 AGE: 62 y.o. ADMISSION DATE: 01/21/2018 DAYS ADMITTED: LOS: 5 days Todays Date: 01/26/2018 Plan Discharge planning ongoing Transfer to floor ID and CTS following PT/OT/ [facility] following Patient readmitted from [facility]. Patient and are hopeful he can return, if needed, at discharge. -patient cannot discharge with chest tube in place per ICU team. Interventions ? Support ? Info or Referral ? Discharge Planning SW reviewed progress notes and discussed patient with ICU Team and RNCM. Transfer to floor. Patient will be inpatient until chest tube is removed. Anticipate need for CTS involvement. PT/OT following. SW and RNCM following. ? Medication Needs ? Financial Medicare and Medicaid ? Legal ? Other Patient lives with spouse, Rachel, in [place], [place]. Disposition ? Expected Discharge Date Expected Discharge Date: 02/01/18? Transportation ? Next Level of Care (Acute Psych discharges only) ? Discharge Disposition Geronimo Waters LMSW [phone] (phone) [phone] (pager) NESS TRANSFORMATION CONSULTANT * Transfer - Samara Kelly APRN - 01/25/2018 4:44 PM BUSINESS TRANSFORMATION CONSULTANT In-Hospital Transfer Note Admission Diagnosis: Empyema Admission Date: 01/21/2018 Active Hospital Problem List: Active Problems: CAD (coronary artery disease) Paroxysmal 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 (HCC) S/P ablation of 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 Pneumonia Cytomegalovirus (CMV) viremia (HCC) Loculated pleural effusion Acute on chronic respiratory failure with hypoxia and hypercapnia (HCC) Sepsis (HCC) Pulmonary aspergillosis invasive type (HCC) COPD, severe (HCC) Secondary spontaneous pneumothorax Legionella pneumonia (HCC) Shock (HCC) Atrial fibrillation with RVR (HCC) Empyema of right pleural space (HCC) Hospital Course: 62 y/o M w/ PMHHTN, HLD, CADs/p PCI 2012, CHF,tobacco use,COPD on 2-3L qHS, Afibw/ recent prolonged hospitalization for legionella & aspergillosis pneumonia as well as +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 He was discharged to rehab 12/31. Admitted to the floor from rehab on 01/21w/worsening tachycardia, leukocytosis &fever. CT chest showed new loculated R hydropneumothorax & consolidation.Transferred to ICU for chest tube placement &increasing O2 requirements.Underwent pigtail placement x2 to R anterior space & R posterior space, started TPA/dornase. Repeat chest CT today showed resolution of the anterior hydropneumothorax. There is been improvement in the posterior lateral pleural effusion but despite TPA and dornase the complex pleural space persists. CTS following. Removed anterior CT today. Currently tolerating 3L HFNC w/[id number].IDfollowing - ABx w/ zosyn + cresemba, valcyte. Significant Medication Information: - zosyn, cresemba, valcyte - holding xarelto while CT is in place - started ppx lovenox Procedures With Dates: - Chest tube x2 01/22, 1 chest tube removed 01/25 Consults: - ID, CTS Follow-Up Items: - CTS plan regarding pleural space - Micro data Activity/Weight bearing status: - No restrictions, up to a chair Nutrition: - Regular diet Discharge Plan: - Unsure at this time, came from rehab [facility]LEX[facility] Pulmonary Critical Care Pager [phone] pager [phone] NESS TRANSFORMATION CONSULTANT * Case Mgmt DC Plan - Geronimo Waters - 01/24/2018 10:53 AM BUSINESS TRANSFORMATION CONSULTANT Case Management Progress NoteNAME:Nancy Trujillo :1955 AGE: 62 y.o. ADMISSION DATE: 01/21/2018 DAYS ADMITTED: LOS: 3 days Todays Date: 01/24/2018 Plan Discharge planning ongoing Continue ICU Care CTS following Aggressive Pulmonary Hygiene PT/OT/ST [facility] following Patient readmitted from [facility]. Patient and are hopeful he can return, if needed, at discharge. Interventions ? Support ? Info or Referral ? Discharge Planning SW reviewed progress notes and discussed patient with ICU Team and RNCM. Continue ICU Care. Patient transferred back to ICU from [facility] due to pneumonia. CTS following. Patient with Legionella Pneumonia and Invasive Pulmonary Aspergillosis. Patient remains medically tenuous and needs to continue aggressive pulmonary hygiene. PT/OT/ST following closely. SW met with patient and spoke with -Rachel by phone. SW reintroduced self and role. SW provided contact information and encouraged patient/family to call with questions or concerns. reports patient received his walker for home use (rollator with four wheels). SW and RNCM following. ? Medication Needs ? Financial Medicare and Medicaid [employer] for prescription coverage ? Legal ? Other Patient lives with spouse, Rachel, in [facility]. He has good support from DILs and sons. Disposition ? Expected Discharge Date Expected Discharge Date: 01/28/18? Transportation ? Next Level of Care (Acute Psych discharges only) ? Discharge Disposition Geronimo Waters LMSW [phone] (phone) [phone] (pager) NESS TRANSFORMATION CONSULTANT * Procedures (Immed Post or Bedside) - Cici Jenkins - 01/22/2018 6:14 PM BUSINESS TRANSFORMATION CONSULTANT Associated Order(s): Chest Tube Procedure Note Nancy Trujillo is a 62 y.o. male. Chest Tube Date/Time: 01/22/2018 6:14 PM Performed [...] to verify the correct patient, procedure, equipment, manager sales support and site/side marked as required. Indications: pleural effusion Indications comments: hydropneumothorax Sedation: Patient sedated: no Anesthesia: local infiltration Anesthesia: Local Anesthetic: lidocaine 1% with epinephrine Preparation: skin prepped with Chloraprep Placement location: right lateral Scalpel size: 10 Tube size: 8 [place] Ultrasound guidance: yes Tension pneumothorax heard: no Tube connected to: suction Drainage characteristics: cloudy and serosanguinous Suture material: 2-0 silk Dressinx4 sterile gauze and Xeroform gauze Post-insertion x-ray findings: tube in good position Patient tolerance: Patient tolerated the procedure well with no immediate complications Cici Jenkins MD PGY-4, Pulmonary Disease & Critical Care Medicine Pager [phone] NESS TRANSFORMATION CONSULTANT Associated attestation - Henry Flores MD - 01/22/2018 8:32 PM BUSINESS TRANSFORMATION CONSULTANT ATTESTATION I was present during the entire procedure performed by a fellow. Staff name: Henry Flores MD Date: 01/22/2018 * Advanced Care Planning/Resuscitation Status - Cici Jenkins - 01/22/2018 5: 13 PM BUSINESS TRANSFORMATION CONSULTANT Advance Care Planning/Resuscitation Status Conversation Individuals present for advance care planning conversation: resident/fellow physician and attending physician Pertinent details of conversation (including direct quotes from patient or surrogate): After much discussion w/ resident and family members, patient indicated that he does want to be full code for time being. However, recommend that further discussion be had going forward. Outcome of conversation: Full Code Documents completed as a result of this conversation: None Other documents present, which outline patient/surrogate wishes: None NESS TRANSFORMATION CONSULTANT * Procedures (Immed Post or Bedside) - Henry Flores MD - 01/22/2018 5:02 PM BUSINESS TRANSFORMATION CONSULTANT Associated Order(s): Chest Tube Procedure Note Nancy Trujillo is a 62 y.o. male. Chest Tube Date/Time: 01/22/2018 5:02 PM Performed by: Cici Jenkins Authorized by: Henry Flores MD Consent: The procedure was performed in an emergent situation. Patient identity confirmed: verbally with patient, arm band, provided demographic data and hospital-assigned identification number Time out: Immediately prior to procedure a "time out" was called to verify the correct patient, procedure, equipment, manager sales support and site/side marked as required. Indications: pneumothorax Sedation: Patient sedated: no Anesthesia: local infiltration Anesthesia: Local Anesthetic: lidocaine 1% with epinephrine Preparation: skin prepped with Chloraprep Placement location: right anterior Scalpel size: 10 Tube size: 8 [place] Ultrasound guidance: yes Tension pneumothorax heard: no Tube connected to: suction Suture material: 2-0 silk Dressinx4 sterile gauze and Xeroform gauze Patient tolerance: Patient tolerated the procedure well with no immediate complications CXR pending. Cici Jenkins MD PGY-4, Pulmonary Disease & Critical Care Medicine Pager [phone] ATTESTATION I was present during the entire procedure performed by a fellow. Staff name: Henry Flores MD Date: 01/22/2018 NESS TRANSFORMATION CONSULTANT * Advanced Care Planning/Resuscitation Status - Artem Vanegas DO - 2017 1:37 PM BUSINESS TRANSFORMATION CONSULTANT Advance Care Planning/Resuscitation Status Conversation Individuals present for advance care planning conversation: resident/fellow physician, patient and patient surrogate decision maker Pertinent details of conversation (including direct quotes from patient or surrogate): Lengthy discussion with patient and spouse. Reiterated previous decision against coding, then changed mind several times. After further discussion patient and expressed confusion about code status and prognosis if he were to be coded again. Patient called and spoke with children, who said that they want him to keep fighting. Patient states that "If I can't get better I just want to go home and be comfortable before I ". Patient stated he was okay with being coded but did not want to be on a breathing machine. Explained to patient that were he to be resuscitated he would require at least short term mechanical ventillation. Patient amenable to DNAR-FI, However after phonecall with children who wanted him to "fight more" patient states "I guess do everything to me for now." Outcome of conversation: Full Code Documents completed as a result of this conversation: None Other documents present, which outline patient/surrogate wishes: None NESS TRANSFORMATION CONSULTANT * Response Teams - Tala Schmidt RN - 01/22/2018 12:40 PM BUSINESS TRANSFORMATION CONSULTANT Rapid Response Team Progress Note Date: 01/22/2018 Time: 1240 Patient: Nancy Trujillo Attending: Henry Flores MD Service: [facility] [id number] Admission Date: 01/21/2018 LOS: 1 day A Code/Rapid Response Timeline Event Report has been created for this patient on 01/22/2018 at 1227. PUBLIC SAFETY DISPATCHER called for stable transfer to ICU. VSS and consistent with patient trends. Patient transferred to [facility] via bed, escorted by PUBLIC SAFETY DISPATCHER RN x2 on portable hospital monitor, no complications during transfer. Tala Schmidt RN NESS TRANSFORMATION CONSULTANT * Advanced Care Planning/Resuscitation Status - David River MD - 01/22/2018 8: 58 AM BUSINESS TRANSFORMATION CONSULTANT Advance Care Planning/Resuscitation Status Conversation Individuals present for advance care planning conversation: attending physician and patient Pertinent details of conversation (including direct quotes from patient or surrogate): I discussed Mr. Trujillo's code status as he informed Dr. Wallace on admit that he would like to be full code, yet he still has a purple striped band on indicating DNAR-FI. He doesn't recall any prior discussions that led to the bad being placed. I informed him that his and sister had discussed w/ Dr. Walsh on 11/18 when he had a PEA arrest that they would continue current measures, but would not want further shocks, compressions or vasopressors. He agrees that this seems like a good course. He is unsure on whether he would want intubation again, he does not recall being placed on the ventilator previously. I discussed the option of a palliative care consult, but he reports that previously they made him "flustered" and caused him to go in to A fib w/ RVR. He wants to wait and discuss intubation with his when she visits later today. He does report "if you can't fix med medically I want to go home to ". I assured him that we still needed to get the impression from the pulmonary team before any further decisions will need to be considered. Outcome of conversation: DNAR - Full Intervention Documents completed as a result of this conversation: None Other documents present, which outline patient/surrogate wishes: None 17 minutes spent in advanced care planning today. NESS TRANSFORMATION CONSULTANT * Care Plan - Althea Nielsen RN - 01/22/2018 3:28 AM BUSINESS TRANSFORMATION CONSULTANT Problem: Falls, High Risk of Goal: Absence of falls-Adult Patient Outcome: Goal Ongoing All elements of the High Fall Bundle in place and patient educated to call for assistance prior to getting up. NESS TRANSFORMATION CONSULTANT in this encounter Plan of Treatment Order Schedule Name Priority Associated Diagnoses Expected: 02/09/2018 (Approximate), Expires: 02/02/2019 DIGOXIN LEVEL Routine Empyema of right pleural space (HCC) Loculated pleural effusion Pulmonary aspergillosis invasive type (HCC) as of this encounter Procedures Comments Procedure Name Priority Date/Time Associated Diagnosis CHEST SINGLE VIEW Routine 02/02/2018 6:24 AM BUSINESS TRANSFORMATION CONSULTANT CBC AND DIFF Routine 02/02/2018 4:39 AM BUSINESS TRANSFORMATION CONSULTANT PHOSPHORUS Routine 02/02/2018 4:39 AM BUSINESS TRANSFORMATION CONSULTANT MAGNESIUM Routine 02/02/2018 4:39 AM BUSINESS TRANSFORMATION CONSULTANT BASIC METABOLIC PANEL Routine 02/02/2018 4:39 AM BUSINESS TRANSFORMATION CONSULTANT CHEST SINGLE VIEW Routine 02/01/2018 6:08 AM BUSINESS TRANSFORMATION CONSULTANT CBC AND DIFF Routine 02/01/2018 5:18 AM BUSINESS TRANSFORMATION CONSULTANT PHOSPHORUS Routine 02/01/2018 5:18 AM BUSINESS TRANSFORMATION CONSULTANT MAGNESIUM Routine 02/01/2018 5:18 AM BUSINESS TRANSFORMATION CONSULTANT COMPREHENSIVE METABOLIC Routine 02/01/2018 PANEL 5:18 AM [address]FORMATION CON[address]ANT [address] CHEST WO CONTRAST Routine 01/31/2018 5:58 PM BUSINESS TRANSFORMATION CONSULTANT CHEST SINGLE VIEW Routine 01/31/2018 6:13 AM BUSINESS TRANSFORMATION CONSULTANT CBC AND DIFF Routine 01/31/2018 3:30 AM BUSINESS TRANSFORMATION CONSULTANT PHOSPHORUS Routine 01/31/2018 3:30 AM BUSINESS TRANSFORMATION CONSULTANT MAGNESIUM Routine 01/31/2018 3:30 AM BUSINESS TRANSFORMATION CONSULTANT BASIC METABOLIC PANEL Routine 01/31/2018 3:30 AM BUSINESS TRANSFORMATION CONSULTANT CHEST SINGLE VIEW Routine 01/30/2018 6:09 AM BUSINESS TRANSFORMATION CONSULTANT CBC AND DIFF Routine 01/30/2018 3:00 AM BUSINESS TRANSFORMATION CONSULTANT PHOSPHORUS Routine 01/30/2018 3:00 AM BUSINESS TRANSFORMATION CONSULTANT MAGNESIUM Routine 01/30/2018 3:00 AM BUSINESS TRANSFORMATION CONSULTANT DIGOXIN LEVEL Routine 01/30/2018 3:00 AM BUSINESS TRANSFORMATION CONSULTANT COMPREHENSIVE METABOLIC Routine 01/30/2018 PANEL 3:00 AM BUSINESS TRANSFORMATION CONSULTANT CBC AND DIFF STAT 01/29/2018 7:30 AM BUSINESS TRANSFORMATION CONSULTANT PHOSPHORUS Routine 01/29/2018 4:51 AM BUSINESS TRANSFORMATION CONSULTANT MAGNESIUM Routine 01/29/2018 4:51 AM BUSINESS TRANSFORMATION CONSULTANT BASIC METABOLIC PANEL Routine 01/29/2018 4:51 AM BUSINESS TRANSFORMATION CONSULTANT CHEST SINGLE VIEW Routine 01/29/2018 4:26 AM BUSINESS TRANSFORMATION CONSULTANT CHEST SINGLE VIEW ASHIA 01/28/2018 2:05 PM BUSINESS TRANSFORMATION CONSULTANT CULTURE-FUNGAL,OTHER STAT 01/28/2018 Loculated pleural 12:07 PM BUSINESS TRANSFORMATION CONSULTANT effusion GRAM STAIN STAT 01/28/2018 Loculated pleural 12:07 PM BUSINESS TRANSFORMATION CONSULTANT effusion CULTURE-TB (AFB) STAT 01/28/2018 Loculated pleural 12:07 PM BUSINESS TRANSFORMATION CONSULTANT effusion CULTURE-WOUND/TISSUE/FLUI STAT 01/28/2018 Loculated pleural D(AEROBIC 12:07 PM BUSINESS TRANSFORMATION CONSULTANT effusion ONLY)W/SENSITIVITY CULTURE-ANAEROBIC STAT 01/28/2018 Loculated pleural 12:07 PM BUSINESS TRANSFORMATION CONSULTANT effusion CHEST SINGLE VIEW Routine 01/28/2018 4:17 AM BUSINESS TRANSFORMATION CONSULTANT CBC AND DIFF Routine 01/28/2018 3:10 AM BUSINESS TRANSFORMATION CONSULTANT TYPE & CROSSMATCH Routine 01/28/2018 3:10 AM BUSINESS TRANSFORMATION CONSULTANT PHOSPHORUS Routine 01/28/2018 3:10 AM BUSINESS TRANSFORMATION CONSULTANT MAGNESIUM Routine 01/28/2018 3:10 AM BUSINESS TRANSFORMATION CONSULTANT DIGOXIN LEVEL Routine 01/28/2018 3:10 AM BUSINESS TRANSFORMATION CONSULTANT COMPREHENSIVE METABOLIC Routine 01/28/2018 PANEL 3:10 AM BUSINESS TRANSFORMATION CONSULTANT CHEST SINGLE VIEW ASHIA 01/27/2018 9:18 AM BUSINESS TRANSFORMATION CONSULTANT CBC AND DIFF Routine 01/27/2018 3:52 AM BUSINESS TRANSFORMATION CONSULTANT PHOSPHORUS Routine 01/27/2018 3:52 AM BUSINESS TRANSFORMATION CONSULTANT MAGNESIUM Routine 01/27/2018 3:52 AM BUSINESS TRANSFORMATION CONSULTANT DIGOXIN LEVEL Routine 01/27/2018 3:52 AM BUSINESS TRANSFORMATION CONSULTANT BASIC METABOLIC PANEL Routine 01/27/2018 3:52 AM BUSINESS TRANSFORMATION CONSULTANT BASIC METABOLIC PANEL Routine 01/26/2018 2:20 PM BUSINESS TRANSFORMATION CONSULTANT URINALYSIS, MICROSCOPIC STAT 01/26/2018 8:05 AM BUSINESS TRANSFORMATION CONSULTANT URINALYSIS DIPSTICK STAT 01/26/2018 8:05 AM BUSINESS TRANSFORMATION CONSULTANT UREA NITROGEN-URINE STAT 01/26/2018 RANDOM 8:05 AM BUSINESS TRANSFORMATION CONSULTANT SODIUM-URINE RANDOM STAT 01/26/2018 8:05 AM BUSINESS TRANSFORMATION CONSULTANT CREATININE-URINE RANDOM STAT 01/26/2018 8:05 AM BUSINESS TRANSFORMATION CONSULTANT EOSINOPHIL STAIN Specimen 01/26/2018 in Lab 8:05 AM BUSINESS TRANSFORMATION CONSULTANT CBC AND DIFF Routine 01/26/2018 4:30 AM BUSINESS TRANSFORMATION CONSULTANT PHOSPHORUS Routine 01/26/2018 4:30 AM BUSINESS TRANSFORMATION CONSULTANT MAGNESIUM Routine 01/26/2018 4:30 AM BUSINESS TRANSFORMATION CONSULTANT COMPREHENSIVE METABOLIC Routine 01/26/2018 PANEL 4:30 AM BUSINESS TRANSFORMATION CONSULTANT CHEST SINGLE VIEW Routine 01/26/2018 4:18 [address] CHEST WO CONTRAST Routine 01/25/2018 12:18 PM BUSINESS TRANSFORMATION CONSULTANT CHEST SINGLE VIEW Routine 01/25/2018 6:14 AM BUSINESS TRANSFORMATION CONSULTANT CBC AND DIFF Routine 01/25/2018 3:38 AM BUSINESS TRANSFORMATION CONSULTANT PHOSPHORUS Routine 01/25/2018 3:38 AM BUSINESS TRANSFORMATION CONSULTANT MAGNESIUM Routine 01/25/2018 3:38 AM BUSINESS TRANSFORMATION CONSULTANT BASIC METABOLIC PANEL Routine 01/25/2018 3:38 AM BUSINESS TRANSFORMATION CONSULTANT CBC AND DIFF Routine 01/24/2018 3:15 AM BUSINESS TRANSFORMATION CONSULTANT PHOSPHORUS Routine 01/24/2018 3:15 AM BUSINESS TRANSFORMATION CONSULTANT MAGNESIUM Routine 01/24/2018 3:15 AM BUSINESS TRANSFORMATION CONSULTANT COMPREHENSIVE METABOLIC Routine 01/24/2018 PANEL 3:15 AM BUSINESS TRANSFORMATION CONSULTANT CHEST SINGLE VIEW Routine 01/24/2018 2:10 AM BUSINESS TRANSFORMATION CONSULTANT VANCOMYCIN TROUGH Routine 01/23/2018 9:19 PM BUSINESS TRANSFORMATION CONSULTANT POTASSIUM Routine 01/23/2018 6:10 PM BUSINESS TRANSFORMATION CONSULTANT MAGNESIUM Routine 01/23/2018 6:10 PM BUSINESS TRANSFORMATION CONSULTANT POTASSIUM Routine 01/23/2018 11:30 AM BUSINESS TRANSFORMATION CONSULTANT MAGNESIUM Routine 01/23/2018 11:30 AM BUSINESS TRANSFORMATION CONSULTANT ECG 12-LEAD Routine 01/23/2018 10:35 AM BUSINESS TRANSFORMATION CONSULTANT CBC AND DIFF Routine 01/23/2018 3:40 AM BUSINESS TRANSFORMATION CONSULTANT PHOSPHORUS Routine 01/23/2018 3:40 AM BUSINESS TRANSFORMATION CONSULTANT MAGNESIUM Routine 01/23/2018 3:40 AM BUSINESS TRANSFORMATION CONSULTANT COMPREHENSIVE METABOLIC Routine 01/23/2018 PANEL 3:40 AM BUSINESS TRANSFORMATION CONSULTANT CHEST SINGLE VIEW ASHIA 01/23/2018 12:36 AM BUSINESS TRANSFORMATION CONSULTANT LDH-LACTATE DEHYDROGENASE Routine 01/23/2018 12:30 AM BUSINESS TRANSFORMATION CONSULTANT PLEURAL FLUID LIPASE Routine 01/22/2018 7:35 PM BUSINESS TRANSFORMATION CONSULTANT PLEURAL FLUID Routine 01/22/2018 TRIGLYCERIDES 7:35 PM BUSINESS TRANSFORMATION CONSULTANT PLEURAL FLUID TOTAL Routine 01/22/2018 PROTEIN 7:35 PM BUSINESS TRANSFORMATION CONSULTANT PLEURAL FLUID PH Routine 01/22/2018 7:35 PM BUSINESS TRANSFORMATION CONSULTANT PLEURAL FLUID LACTATE Routine 01/22/2018 DEHYDROGENASE 7:35 PM BUSINESS TRANSFORMATION CONSULTANT PLEURAL FLUID GLUCOSE Routine 01/22/2018 7:35 PM BUSINESS TRANSFORMATION CONSULTANT PLEURAL FLUID CHOLESTEROL Routine 01/22/2018 7:35 PM BUSINESS TRANSFORMATION CONSULTANT PLEURAL FLUID TOTAL Routine 01/22/2018 BILIRUBIN 7:35 PM BUSINESS TRANSFORMATION CONSULTANT PLEURAL FLUID AMYLASE Routine 01/22/2018 7:35 PM BUSINESS TRANSFORMATION CONSULTANT PLEURAL FLUID ALBUMIN Routine 01/22/2018 7:35 PM BUSINESS TRANSFORMATION CONSULTANT CULTURE-FUNGAL,OTHER Routine 01/22/2018 7:35 PM BUSINESS TRANSFORMATION CONSULTANT GRAM STAIN Routine 01/22/2018 7:35 PM BUSINESS TRANSFORMATION CONSULTANT CULTURE-TB (AFB) Routine 01/22/2018 7:35 PM BUSINESS TRANSFORMATION CONSULTANT CULTURE-WOUND/TISSUE/FLUI Routine 01/22/2018 D(AEROBIC 7:35 PM BUSINESS TRANSFORMATION CONSULTANT ONLY)W/SENSITIVITY CELL COUNT W/DIFF-FLUIDS Routine 01/22/2018 7:35 PM BUSINESS TRANSFORMATION CONSULTANT O2 SATURATION, CENTRAL Routine 01/22/2018 VENOUS 7:15 PM BUSINESS TRANSFORMATION CONSULTANT LACTIC ACID (BG - RAPID 01/22/2018 LACTATE) 7:15 PM BUSINESS TRANSFORMATION CONSULTANT CHEST SINGLE VIEW Routine 01/22/2018 6:57 PM BUSINESS TRANSFORMATION CONSULTANT LINE PLCMT 1V CXR STAT 01/22/2018 6:20 PM BUSINESS TRANSFORMATION CONSULTANT CHEST TUBE INSERTION Routine 01/22/2018 6:14 PM BUSINESS TRANSFORMATION CONSULTANT CHEST SINGLE VIEW STAT 01/22/2018 5:06 PM BUSINESS TRANSFORMATION CONSULTANT CHEST TUBE INSERTION Routine 01/22/2018 5:02 PM BUSINESS TRANSFORMATION CONSULTANT GRAM STAIN 01/22/2018 9:34 AM BUSINESS TRANSFORMATION CONSULTANT CBC AND DIFF Routine 01/22/2018 4:56 AM BUSINESS TRANSFORMATION CONSULTANT PHOSPHORUS Routine 01/22/2018 4:56 AM BUSINESS TRANSFORMATION CONSULTANT MAGNESIUM Routine 01/22/2018 4:56 AM BUSINESS TRANSFORMATION CONSULTANT COMPREHENSIVE METABOLIC Routine 01/22/2018 PANEL 4:56 AM BUSINESS TRANSFORMATION CONSULTANT BASIC METABOLIC PANEL Routine 01/21/2018 10:56 PM BUSINESS TRANSFORMATION CONSULTANT TELEMETRY STRIPS-SCAN 01/21/2018 12:00 AM BUSINESS TRANSFORMATION CONSULTANT in this encounter Results * CHEST SINGLE VIEW (02/02/2018 6:24 AM BUSINESS TRANSFORMATION CONSULTANT) Impressions Performed At 1. Similar diffuse right lung and patchy left lung opacities likely multifocal [facility] infection. 2. Stable right pleural effusion without definite pneumothorax. Previously visualized air-fluid levels not well seen. Finalized by Jony Trujillo M.D. on 02/02/2018 9:53 AM. Dictated by Jony Trujillo M.D. on 02/02/2018 9:52 AM. Narrative Performed [...] Interface, Radiant Results - 02/02/2018 9:57 AM BUSINESS TRANSFORMATION CONSULTANT CHEST SINGLE VIEW INDICATION: chest tube COMPARISON [...] levels not well seen. Finalized by Jony Trujillo M.D. on 02/02/2018 9:53 AM. Dictated by Jony Trujillo M.D. on 02/02/2018 9:52 AM. Performing Organization Address City/State/Zipcode Phone Number [facility] * PHOSPHORUS (02/02/2018 4:39 AM BUSINESS TRANSFORMATION CONSULTANT) Phosphorus 3.9Comment: NOTE NEW REFERENCE 2.0 - 4.5 MG/DL [facility] Specimen Blood Performing Organization Address City/State/Zipcode Phone Number [facility] [address] [place] [address] * MAGNESIUM (02/02/2018 4:39 AM BUSINESS TRANSFORMATION CONSULTANT) Magnesium 1.7 1.6 - 2.6 mg/dL [facility] Specimen Blood Performing Organization Address City/[facility] Phone Number [facility] [address] [place] [address] * CBC AND DIFF (02/02/2018 4:39 AM BUSINESS TRANSFORMATION CONSULTANT) White Blood Cells 11.1 (H) 4.5 - 11.0 K/UL [facility] RBC 2.26 (L) 4.4 - 5.5 M/UL [facility] Hemoglobin 7.7 (L) 13.5 - 16.5 GM/DL [facility] Hematocrit 23.2 (L) 40 - 50 % [facility] MCV 102.5 (H) 80 - 100 FL [facility] MCH 33.9 26 - 34 PG [facility] MCHC 33.1 32.0 - 36.0 G/DL [facility] RDW 18.0 (H) 11 - 15 % [facility] Platelet Count 218 150 - 400 K/UL [facility] MPV 7.4 7 - 11 FL [facility] Neutrophils 87 (H) 41 - 77 % [facility] Lymphocytes 9 (L) 24 - 44 % [facility] Monocytes 3 (L) 4 - 12 % [facility] Eosinophils 0 0 - 5 % [facility] Basophils 1 0 - 2 % [facility] Absolute Neutrophil Count 9.70 (H) 1.8 - 7.0 K/UL [facility] Absolute Lymph Count 1.00 1.0 - 4.8 K/UL [facility] Absolute Monocyte Count 0.30 0 - 0.80 K/UL [facility] Absolute Eosinophil Count 0.00 0 - 0.45 K/UL [facility] Absolute Basophil Count 0.10 0 - 0.20 K/UL [facility] Specimen Blood Performing Organization Address City/[facility]/Zipcode Phone Number [facility] [address] [place] [address] * BASIC METABOLIC PANEL (02/02/2018 4:39 AM BUSINESS TRANSFORMATION CONSULTANT) Sodium 140 137 - 147 MMOL/L [facility] Potassium 3.9 3.5 - 5.1 MMOL/L [facility] Chloride 108 98 - 110 MMOL/L [facility] CO2 28 21 - 30 MMOL/L [facility] Anion Gap 4 3 - 12 [facility] Glucose 103 (H) 70 - 100 MG/DL [facility] Blood Urea Nitrogen 7 7 - 25 MG/DL [facility] Creatinine 1.40 (H) 0.4 - 1.24 MG/DL [facility] [...] Address City/State/Zipcode Phone Number [facility] [address] [place] [address] * CHEST SINGLE VIEW (02/01/2018 6:08 AM BUSINESS TRANSFORMATION CONSULTANT) Impressions Performed At 1. Persistent small partially loculated right hydropneumothorax with stable [facility] RAD RESULTS position of 2 right-sided chest tubes. 2. No significant change in patchy opacities throughout both lungs, greater on the right. 3. Marked emphysema with scattered areas of scarring. Approved by David Alva M.D. on 02/01/2018 2:26 PM By my electronic signature, I attest that I have personally reviewed the images for this examination and formulated the interpretations and opinions expressed in this report Finalized by GABRIELA WALLIS M.D. on 02/01/2018 5:30 PM. Dictated by David Alva M.D. on 02/01/2018 11:01 AM. Narrative Performed At CHEST SINGLE VIEW [facility] RESULTS Clinical history: Chest tube Comparison: CT chest January 31, 2018 Findings: The 2 right chest tubes remain in place. Right upper extremity PICC line in stable position. The heart is upper limits of normal in size. Pulmonary vasculature is within normal limits. Redemonstration of marked emphysema with scattered areas of scarring. Persistent small partially loculated right hydropneumothorax. There are persistent patchy opacities scattered throughout both lungs, greater on the right. Trace left pleural effusion. Procedure Note Interface, Radiant Results - 02/01/2018 5:33 PM BUSINESS TRANSFORMATION CONSULTANT CHEST SINGLE VIEW Clinical history: Chest tube Comparison: CT chest January 31, 2018 Findings: The 2 right chest tubes remain in place. Right upper extremity PICC line in stable position. The heart is upper limits of normal in size. Pulmonary vasculature is within normal limits. Redemonstration of marked emphysema with scattered areas of scarring. Persistent small partially loculated right hydropneumothorax. There are persistent patchy opacities scattered throughout both lungs, greater on the right. Trace left pleural effusion. IMPRESSION 1. Persistent small partially loculated right hydropneumothorax with stable position of 2 right-sided chest tubes. 2. No significant change in patchy opacities throughout both lungs, greater on the right. 3. Marked emphysema with scattered areas of scarring. Approved by David Alva M.D. on 02/01/2018 2:26 PM By my electronic signature, I attest that I have personally reviewed the images for this examination and formulated the interpretations and opinions expressed in this report Finalized by GABRIELA WALLIS M.D. on 02/01/2018 5:30 PM. Dictated by David Alva M.D. on 02/01/2018 11:01 AM. Performing Organization Address [facility] Phone Number RAD RESULTS * PHOSPHORUS (02/01/2018 5:18 AM BUSINESS TRANSFORMATION CONSULTANT) Phosphorus 4.1Comment: NOTE NEW REFERENCE 2.0 - 4.5 MG/DL [facility] RANGES Specimen Blood Performing Organization Address [facility] Phone Number MA[facility] LAB [address] [place] [address] * MAGNESIUM (02/01/2018 5:18 AM BUSINESS TRANSFORMATION CONSULTANT) Magnesium 1.9 1.6 - 2.6 mg/dL [facility] Specimen Blood Performing Organization Address [facility] Phone Number MA[facility] LAB [address] [place] [address] * COMPREHENSIVE METABOLIC PANEL (02/01/2018 5:18 AM BUSINESS TRANSFORMATION CONSULTANT) Sodium 138 137 - 147 MMOL/L [facility] Potassium 3.9 3.5 - 5.1 MMOL/L [facility] Chloride 106 98 - 110 MMOL/L [facility] Glucose 116 (H) 70 - 100 MG/DL [facility] Blood Urea Nitrogen 9 7 - 25 MG/DL [facility] Creatinine 1.30 (H) 0.4 - 1.24 MG/DL [facility] Calcium 8.2 (L) 8.5 - 10.6 MG/DL [facility] Total Protein 5.5 (L) 6.0 - 8.0 G/DL [facility] Total Bilirubin 0.3 0.3 - 1.2 MG/DL [facility] Albumin 1.9 (L) 3.5 - 5.0 G/DL [facility] Alk Phosphatase 89 25 - 110 U/L [facility] AST (SGOT) 14 7 - 40 U/L [facility] CO2 29 21 - 30 MMOL/L [facility] ALT (SGPT) 8 7 - 56 U/L [facility] Anion Gap 3 3 - 12 [facility] eGFR Non 56 (L) >60 mL/min [facility] Comment: [...] Blood Performing Organization Address City/State/Zipcode Phone Number [facility] [address] [place] [address] * CBC AND DIFF (02/01/2018 5:18 AM BUSINESS TRANSFORMATION CONSULTANT) White Blood Cells 10.1 4.5 - 11.0 K/UL [facility] RBC 2.40 (L) 4.4 - 5.5 M/UL [facility] Hemoglobin 8.3 (L) 13.5 - 16.5 GM/DL [facility] Hematocrit 24.5 (L) 40 - 50 % [facility] MCV 102.0 (H) 80 - 100 FL [facility] MCH 34.6 (H) 26 - 34 PG [facility] MCHC 33.9 32.0 - 36.0 G/DL [facility] RDW 17.9 (H) 11 - 15 % [facility] Platelet Count 255 150 - 400 K/UL [facility] MPV 6.7 (L) 7 - 11 FL [facility] Neutrophils 87 (H) 41 - 77 % [facility] Lymphocytes 9 (L) 24 - 44 % [facility] Monocytes 3 (L) 4 - 12 % [facility] Eosinophils 0 0 - 5 % [facility] Basophils 1 0 - 2 % [facility] Absolute Neutrophil Count 8.70 (H) 1.8 - 7.0 K/UL [facility] Absolute Lymph Count 0.90 (L) 1.0 - 4.8 K/UL [facility] Absolute Monocyte Count 0.30 0 - 0.80 K/UL [facility] Absolute Eosinophil Count 0.00 0 - 0.45 K/UL [facility] Absolute Basophil Count 0.10 0 - 0.20 K/UL [facility] Specimen Blood Performing Organization Address City/State/Zipcode Phone Number [facility] [address] [place] [address] * CT CHEST WO CONTRAST (01/31/2018 5:58 PM BUSINESS TRANSFORMATION CONSULTANT) Impressions Performed At 1. Significant decrease in size of a now small, loculated right [facility] RESULTS hydropneumothorax, with [address]. 2. Improved aeration of the right lung, with persistent patchy areas of consolidation, greatest in the right upper lobe, compatible with pneumonia. 3. Increase in size of a small left pleural effusion, with persistent patchy areas of nodularity, which are nonspecific though also likely infectious. Follow-up CT chest in approximately 3 months is recommended for reevaluation. 4. Marked emphysema. 5. At least moderate coronary artery calcification. Finalized by GABRIELA WALLIS M.D. on 02/01/2018 8:15 AM. Dictated by GABRIELA WALLIS M.D. on 02/01/2018 8:01 AM. Narrative Performed At CT Chest [facility] RESULTS . Clinical Indication:Male, 62 years old. Pleural effusion. Technique: Multiple contiguous axial CT images were obtained through the chest without IV contrast. Post processing coronal and sagittal reconstruction images were made from the axial images. IV contrast: None. Comparison: Chest radiograph of the same day and CT chest 01/25/2018 . Findings: Evaluation of the mediastinum and linn, including the vasculature and for lymphadenopathy, is limited without the use of IV contrast. Axilla, Mediastinum and Linn: There is no axillary adenopathy. Few prominent mediastinal nodes are again seen, which are likely reactive. Heart and Great Vessels: The heart size is within normal limits with trace pericardial effusion. At least moderate coronary artery calcification is present. A right PICC remains in place. Airway, Lungs and Pleura: There is marked emphysema with scattered areas of scarring. Two right thoracostomy tubes are in place, which are new since the prior CT chest. Previously seen right pleural drains have been removed since the prior CT. There has been significant decrease in size of a now small loculated right pleural fluid and gas collection, the largest component of which is now in the right apex. Patchy consolidation is again seen throughout the right lung, with a large area of cavitary consolidation within the right upper lobe. There has been increase in size of a small left pleural effusion. Patchy irregular nodular opacities within the left lung have not significantly changed. Upper Abdomen: The stomach is distended with fluid and gas. Chest Wall and Osseous Structures: Healing sternal and bilateral rib fractures are again noted. . Procedure Note Interface, Radiant Results - 02/01/2018 8:18 AM BUSINESS TRANSFORMATION CONSULTANT CT Chest . Clinical Indication: Male, 62 years old. Pleural effusion. Technique: Multiple contiguous axial CT images were obtained through the chest without IV contrast. Post processing coronal and sagittal reconstruction images were made from the axial images. IV contrast: None. Comparison: Chest radiograph of the same day and CT chest 01/25/2018 . Findings: Evaluation of the mediastinum and linn, including the vasculature and for lymphadenopathy, is limited without the use of IV contrast. Axilla, Mediastinum and Linn: There is no axillary adenopathy. Few prominent mediastinal nodes are again seen, which are likely reactive. Heart and Great Vessels: The heart size is within normal limits with trace pericardial effusion. At least moderate coronary artery calcification is present. A right PICC remains in place. Airway, Lungs and Pleura: There is marked emphysema with scattered areas of scarring. Two right thoracostomy tubes are in place, which are new since the prior CT chest. Previously seen right pleural drains have been removed since the prior CT. There has been significant decrease in size of a now small loculated right pleural fluid and gas collection, the largest component of which is now in the right apex. Patchy consolidation is again seen throughout the right lung, with a large area of cavitary consolidation within the right upper lobe. There has been increase in size of a small left pleural effusion. Patchy irregular nodular opacities within the left lung have not significantly changed. Upper Abdomen: The stomach is distended with fluid and gas. Chest Wall and Osseous Structures: Healing sternal and bilateral rib fractures are again noted. . IMPRESSION 1. Significant decrease in size of a now small, loculated right hydropneumothorax, with [address] 2. Improved aeration of the right lung, with persistent patchy areas of consolidation, greatest in the right upper lobe, compatible with pneumonia. 3. Increase in size of a small left pleural effusion, with persistent patchy areas of nodularity, which are nonspecific though also likely infectious. Follow -up CT chest in approximately 3 months is recommended for reevaluation. 4. Marked emphysema. 5. At least moderate coronary artery calcification. Finalized by GABRIELA WALLIS M.D. on 02/01/2018 8:15 AM. Dictated by GABRIELA WALLIS M.D. on 02/01/2018 8:01 AM. Performing Organization Address City/State/Zipcode Phone Number [facility] RAD RESULTS * CHEST SINGLE VIEW (01/31/2018 6:13 AM BUSINESS TRANSFORMATION CONSULTANT) Impressions Performed At 1.Two right chest tubes remain in place with persistent small right pleural [facility] RESULTS effusion. No pneumothorax identified. 2.Marked emphysematous changes. 3.Persistent patchy mixed bilateral opacities, greatest within the right lung base. Approved by Miguel Angel Camp M.D. on 01/31/2018 11:09 AM By my electronic signature, I attest that I have personally reviewed the images for this examination and formulated the interpretations and opinions expressed in this report Finalized by Amish Will M.D. on 01/31/2018 11:15 AM. Dictated by Miguel Angel Camp M.D. on 01/31/2018 9:31 AM. Narrative Performed At Procedure: CHEST SINGLE VIEW [facility] RAD RESULTS Clinical Indication: Chest tube. Comparison: Chest radiograph from one day prior. Findings: Right PICC and two right thoracostomy tubes remain in place. The heart remains upper limits of normal in size. No pneumothorax identified. Marked emphysema with scattered areas of scarring throughout both lungs. There is a small right pleural effusion. Persistent patchy mixed bilateral opacities, greatest within the right lung base. Procedure Note Interface, Radiant Results - 01/31/2018 11:18 AM BUSINESS TRANSFORMATION CONSULTANT Procedure: CHEST SINGLE VIEW Clinical Indication: Chest tube. Comparison: Chest radiograph from one day prior. Findings: Right PICC and two right thoracostomy tubes remain in place. The heart remains upper limits of normal in size. No pneumothorax identified. Marked emphysema with scattered areas of scarring throughout both lungs. There is a small right pleural effusion. Persistent patchy mixed bilateral opacities, greatest within the right lung base. IMPRESSION 1. Two right chest tubes remain in place with persistent small right pleural effusion. No pneumothorax identified. 2. Marked emphysematous changes. 3. Persistent patchy mixed bilateral opacities, greatest within the right lung base. Approved by Miguel Angel Camp M.D. on 01/31/2018 11:09 AM By my electronic signature, I attest that I have personally reviewed the images for this examination and formulated the interpretations and opinions expressed in this report Finalized by Amish Will M.D. on 01/31/2018 11:15 AM. Dictated by Miguel Angel Camp M.D. on 01/31/2018 9:31 AM. Performing Organization Address City/[facility] Phone Number RAD RESULTS * PHOSPHORUS (01/31/2018 3:30 AM BUSINESS TRANSFORMATION CONSULTANT) Phosphorus 4.2Comment: NOTE NEW REFERENCE 2.0 - 4.5 MG/DL [facility] RANGES Specimen Blood Performing Organization Address [facility] Phone Number MAIN LAB [address] [phone] * MAGNESIUM (01/31/2018 3:30 AM BUSINESS TRANSFORMATION CONSULTANT) Magnesium 2.2 1.6 - 2.6 mg/dL [facility] Specimen Blood Performing Organization Address [facility] Phone Number [facility] [address] [phone] * CBC AND DIFF (01/31/2018 3:30 AM BUSINESS TRANSFORMATION CONSULTANT) White Blood Cells 9.7 4.5 - 11.0 K/UL [facility] RBC 2.43 (L) 4.4 - 5.5 M/UL [facility] Hemoglobin 8.2 (L) 13.5 - 16.5 GM/DL [facility] Hematocrit 25.1 (L) 40 - 50 % [facility] MCV 103.3 (H) 80 - 100 FL [facility] MCH 33.6 26 - 34 PG [facility] MCHC 32.5 32.0 - 36.0 G/DL [facility] RDW 18.2 (H) 11 - 15 % [facility] Platelet Count 308 150 - 400 K/UL [facility] MPV 6.6 (L) 7 - 11 FL [facility] Neutrophils 88 (H) 41 - 77 % [facility] Lymphocytes 10 (L) 24 - 44 % [facility] Monocytes 2 (L) 4 - 12 % [facility] Eosinophils 0 0 - 5 % [facility] Basophils 0 0 - 2 % [facility] Absolute Neutrophil Count 8.40 (H) 1.8 - 7.0 K/UL [facility] Absolute Lymph Count 1.00 1.0 - 4.8 K/UL [facility] Absolute Monocyte Count 0.20 0 - 0.80 K/UL [facility] Absolute Eosinophil Count 0.00 0 - 0.45 K/UL [facility] Absolute Basophil Count 0.00 0 - 0.20 K/UL [facility] Specimen Blood Performing Organization Address City/[facility] Phone Number [facility] [address] [place] [address] * BASIC METABOLIC PANEL (01/31/2018 3:30 AM BUSINESS TRANSFORMATION CONSULTANT) Sodium 135 (L) 137 - 147 MMOL/L [facility] Potassium 3.8 3.5 - 5.1 MMOL/L [facility] Chloride 104 98 - 110 MMOL/L [facility] CO2 27 21 - 30 MMOL/L [facility] Anion Gap 4 3 - 12 [facility] Glucose 111 (H) 70 - 100 MG/DL [facility] Blood Urea Nitrogen 13 7 - 25 MG/DL [facility] Creatinine 1.36 (H) 0.4 - 1.24 MG/DL [facility] Calcium 8.0 (L) 8.5 - 10.6 MG/DL [facility] eGFR Non 53 (L) >60 mL/min [facility] Comment: [...] for questions. Specimen Blood Performing Organization Address City/[facility] Phone Number [facility] [address] [place] [address] * CHEST SINGLE VIEW (01/30/2018 6:09 AM BUSINESS TRANSFORMATION CONSULTANT) Impressions Performed At Worsening pulmonary space opacities in the right lower lung, which may represent [facility] RESULTS asymmetric pulmonary edema. By my electronic signature, I attest that I have personally reviewed the images for this examination and formulated the interpretations and opinions expressed in this report Finalized by Tim Samaniego M.D. on 01/30/2018 8:30 AM. Dictated by Ben Christie M.D. on 01/30/2018 7:41 AM. Narrative Performed At Procedure: CHEST SINGLE VIEW [facility] RAD RESULTS Clinical Indication:Chest tube in place. Comparison:Chest radiograph one day prior. Findings: Right PICC and 2 right thoracostomy tubes remain in place. The heart remains upper limits of normal in size without bony venous congestion. The right costophrenic angle is not included on the [id number]. No pneumothorax. Marked emphysema and scattered areas of scarring. Worsening of pulmonary airspace opacities in the right lower lung. Procedure Note Interface, Radiant Results - 01/30/2018 8:33 AM BUSINESS TRANSFORMATION CONSULTANT Procedure: CHEST SINGLE VIEW Clinical Indication: Chest tube in place. Comparison: Chest radiograph one day prior. Findings: Right PICC and 2 right thoracostomy tubes remain in place. The heart remains upper limits of normal in size without bony venous congestion. The right costophrenic angle is not included on the [id number]. No pneumothorax. Marked emphysema and scattered areas of scarring. Worsening of pulmonary airspace opacities in the right lower lung. IMPRESSION Worsening pulmonary space opacities in the right lower lung, which may represent asymmetric pulmonary edema. By my electronic signature, I attest that I have personally reviewed the images for this examination and formulated the interpretations and opinions expressed in this report Finalized by Tim Samaniego M.D. on 01/30/2018 8:30 AM. Dictated by Ben Christie M.D. on 01/30/2018 7:41 AM. Performing Organization Address City/State/Zipcode Phone Number [facility] RAD RESULTS * PHOSPHORUS (01/30/2018 3:00 AM BUSINESS TRANSFORMATION CONSULTANT) Phosphorus 3.8Comment: NOTE NEW REFERENCE 2.0 - 4.5 MG/DL [facility] RANGES Specimen Blood Performing Organization Address City/[facility]/Zipcode Phone Number [facility] [address] [place] [address] * MAGNESIUM (01/30/2018 3:00 AM BUSINESS TRANSFORMATION CONSULTANT) Magnesium 1.9 1.6 - 2.6 mg/dL [facility] Specimen Blood Performing Organization Address City/State/Zipcode Phone Number MAIN LAB [address] [place] [address] * COMPREHENSIVE METABOLIC PANEL (01/30/2018 3:00 AM BUSINESS TRANSFORMATION CONSULTANT) Sodium 138 137 - 147 MMOL/L [facility] Potassium 3.6 3.5 - 5.1 MMOL/L [facility] Chloride 105 98 - 110 MMOL/L [facility] Glucose 94 70 - 100 MG/DL [facility] Blood Urea Nitrogen 16 7 - 25 MG/DL [facility] Creatinine 1.61 (H) 0.4 - 1.24 MG/DL [facility] Calcium 8.2 (L) 8.5 - 10.6 MG/DL [facility] Total Protein 6.0 6.0 - 8.0 G/DL [facility] Total Bilirubin 0.2 (L) 0.3 - 1.2 MG/DL [facility] Albumin 2.1 (L) 3.5 - 5.0 G/DL [facility] Alk Phosphatase 95 25 - 110 U/L [facility] AST (SGOT) 17 7 - 40 U/L [facility] CO2 26 21 - 30 MMOL/L [facility] ALT (SGPT) 8 7 - 56 U/L [facility] Anion Gap 7 3 - 12 [facility] eGFR Non 44 (L) >60 mL/min [facility] Comment: The eGFR is not validated for use in drug dosing adjustments.Continue to use estimated creatinine clearance per dosing reference text.Please contact the Clinical Pharmacist for questions. eGFR 53 (L) >60 mL/min [facility] Comment: The eGFR is not validated for use in drug dosing adjustments.Continue to use estimated creatinine clearance per dosing reference text.Please contact the Clinical Pharmacist for questions. Specimen Blood Performing Organization Address City/State/Zipcode Phone Number MAIN LAB [address] [place] [address] * CBC AND DIFF (01/30/2018 3:00 AM BUSINESS TRANSFORMATION CONSULTANT) White Blood Cells 12.8 (H) 4.5 - 11.0 K/UL [facility] RBC 2.82 (L) 4.4 - 5.5 M/UL [facility] Hemoglobin 9.6 (L) 13.5 - 16.5 GM/DL [facility] Hematocrit 29.2 (L) 40 - 50 % [facility] MCV 103.6 (H) 80 - 100 FL [facility] MCH 34.0 26 - 34 PG [facility] MCHC 32.8 32.0 - 36.0 G/DL [facility] RDW 18.1 (H) 11 - 15 % [facility] Platelet Count 404 (H) 150 - 400 K/UL [facility] MPV 7.0 7 - 11 FL [facility] Neutrophils 90 (H) 41 - 77 % [facility] Lymphocytes 8 (L) 24 - 44 % [facility] Monocytes 1 (L) 4 - 12 % [facility] Eosinophils 0 0 - 5 % [facility] Basophils 1 0 - 2 % [facility] Absolute Neutrophil Count 11.60 (H) 1.8 - 7.0 K/UL [facility] Absolute Lymph Count 1.00 1.0 - 4.8 K/UL [facility] Absolute Monocyte Count 0.10 0 - 0.80 K/UL [facility] Absolute Eosinophil Count 0.00 0 - 0.45 K/UL [facility] Absolute Basophil Count 0.10 0 - 0.20 K/UL [facility] Specimen Blood Performing Organization Address [facility] Phone Number MAIN LAB [address] [place] [address] * DIGOXIN LEVEL (01/30/2018 3:00 AM BUSINESS TRANSFORMATION CONSULTANT) Digoxin 0.9 0.5 - 1.0 NG/ML MAIN LAB Specimen Blood Performing Organization Address [facility]/Zipcode Phone Number [facility] [address] [place] [address] * CBC AND DIFF (01/29/2018 7:30 AM BUSINESS TRANSFORMATION CONSULTANT) White Blood Cells 13.4 (H) 4.5 - 11.0 K/UL MAIN LAB RBC 2.55 (L) 4.4 - 5.5 M/UL MAIN LAB Hemoglobin 8.6 (L) 13.5 - 16.5 GM/DL [facility] Hematocrit 26.8 (L) 40 - 50 % [facility] MCV 104.8 (H) 80 - 100 FL [facility] MCH 33.7 26 - 34 PG MAIN LAB MCHC 32.1 32.0 - 36.0 G/DL MAIN LAB RDW 18.7 (H) 11 - 15 % [facility] Platelet Count 338 150 - 400 K/UL [facility] MPV 6.9 (L) 7 - 11 FL [facility] Neutrophils 91 (H) 41 - 77 % [facility] Lymphocytes 6 (L) 24 - 44 % [facility] Monocytes 3 (L) 4 - 12 % [facility] Eosinophils 0 0 - 5 % [facility] Basophils 0 0 - 2 % [facility] Absolute Neutrophil Count 12.20 (H) 1.8 - 7.0 K/UL [facility] Absolute Lymph Count 0.80 (L) 1.0 - 4.8 K/UL [facility] Absolute Monocyte Count 0.40 0 - 0.80 K/UL [facility] Absolute Eosinophil Count 0.00 0 - 0.45 K/UL [facility] Absolute Basophil Count 0.00 0 - 0.20 K/UL [facility] Specimen Blood Performing Organization Address City/[facility] Phone Number [facility] [address] [place] [address] * PHOSPHORUS (01/29/2018 4:51 AM BUSINESS TRANSFORMATION CONSULTANT) Phosphorus 4.5Comment: NOTE NEW REFERENCE 2.0 - 4.5 MG/DL [facility] RANGES Specimen Blood Performing Organization Address City/[facility] Phone Number MA[facility] [address] [place] [address] * MAGNESIUM (01/29/2018 4:51 AM BUSINESS TRANSFORMATION CONSULTANT) Magnesium 2.1 1.6 - 2.6 mg/dL [facility] Specimen Blood Performing Organization Address City/[facility] Phone Number MA[facility] [address] [phone] * BASIC METABOLIC PANEL (01/29/2018 4:51 AM BUSINESS TRANSFORMATION CONSULTANT) Sodium 139 137 - 147 MMOL/L [facility] Potassium 3.4 (L) 3.5 - 5.1 MMOL/L [facility] Chloride 107 98 - 110 MMOL/L [facility] CO2 26 21 - 30 MMOL/L [facility] Anion Gap 6 3 - 12 [facility] Glucose 117 (H) 70 - 100 MG/DL [facility] Blood Urea Nitrogen 21 7 - 25 MG/DL [facility] Creatinine 1.78 (H) 0.4 - 1.24 MG/DL [facility] Calcium 7.5 (L) 8.5 - 10.6 MG/DL [facility] eGFR Non 39 (L) >60 mL/min [facility] Comment: The eGFR is not validated for use in drug dosing adjustments.Continue to use estimated creatinine clearance per dosing reference text.Please contact the Clinical Pharmacist for questions. eGFR 47 (L) >60 mL/min [facility] Comment: The eGFR is not validated for use in drug dosing adjustments.Continue to use estimated creatinine clearance per dosing reference text.Please contact the Clinical Pharmacist for questions. Specimen Blood Performing Organization Address City/State/Zipcode Phone Number [facility] [address] [place] [address] * CHEST SINGLE VIEW (01/29/2018 4:26 AM BUSINESS TRANSFORMATION CONSULTANT) Impressions Performed At 1.Persistent trace right pneumothorax with two right chest tubes in place. [facility] RAD RESULTS 2.Marked emphysematous changes throughout both lungs. 3.No significant change in the mid/upper right lung infiltrate. 4.Persistent trace right pleural effusion. Approved by Miguel Angel Camp M.D. on 01/31/2018 2:23 PM By my electronic signature, I attest that I have personally reviewed the images for this examination and formulated the interpretations and opinions expressed in this report Finalized by Hi Morgan M.D. on 01/31/2018 2:58 PM. Dictated by Miguel Angel Camp M.D. on 01/31/2018 1:06 PM. Narrative Performed At Procedure: CHEST SINGLE VIEW [facility] RAD RESULTS Clinical Indication: Chest tube placement. Comparison: Chest radiograph from one day prior. Findings: Right PICC remains in similar position. Two thoracostomy tubes remain in place. The heart size is upper limits of normal without pulmonary vascular congestion. There is a persistent trace right apical pneumothorax. There is marked diffuse edema scattered areas of scarring. Right mid and upper lung infiltrate persists. Procedure Note Interface, Radiant Results - 01/31/2018 3:01 PM BUSINESS TRANSFORMATION CONSULTANT Procedure: CHEST SINGLE VIEW Clinical Indication: Chest tube placement. Comparison: Chest radiograph from one day prior. Findings: Right PICC remains in similar position. Two thoracostomy tubes remain in place. The heart size is upper limits of normal without pulmonary vascular congestion. There is a persistent trace right apical pneumothorax. There is marked diffuse edema scattered areas of scarring. Right mid and upper lung infiltrate persists. IMPRESSION 1. Persistent trace right pneumothorax with two right chest tubes in place. 2. Marked emphysematous changes throughout both lungs. 3. No significant change in the mid/upper right lung infiltrate. 4. Persistent trace right pleural effusion. Approved by Miguel Angel Camp M.D. on 01/31/2018 2:23 PM By my electronic signature, I attest that I have personally reviewed the images for this examination and formulated the interpretations and opinions expressed in this report Finalized by Hi Morgan M.D. on 01/31/2018 2:58 PM. Dictated by Miguel Angel Camp M.D. on 01/31/2018 1:06 PM. Performing Organization Address City/State/Zipcode Phone Number [facility] RAD RESULTS * CHEST SINGLE VIEW (01/28/2018 2:05 PM BUSINESS TRANSFORMATION CONSULTANT) Impressions Performed At Interval removal of right pleural drain and placement of 2 right chest tubes [facility] RAD RESULTS with significant improvement in now tiny right apical pneumothorax and trace right pleural effusion. Marked emphysema. Finalized by Hi Morgan M.D. on 01/28/2018 2:30 PM. Dictated by Hi Morgan M.D. on 01/28/2018 2:28 PM. Narrative Performed At Single view of the chest [facility] RAD RESULTS Clinical history: Pleural effusion. Findings: Comparison chest film: 10 hours earlier. Right pleural drain has been removed. Right PICC remains in place. There has been placement of 2 right thoracostomy tubes. The heart remains upper limits of normal for size without pulmonary vascular congestion. There has been significant improvement in now tiny right apical pneumothorax and trace right pleural effusion. Marked emphysema and scattered areas of scarring are again seen in both lungs. Procedure Note Interface, Radiant Results - 01/28/2018 2:37 PM BUSINESS TRANSFORMATION CONSULTANT Single view of the chest Clinical history: Pleural effusion. Findings: Comparison chest film: 10 hours earlier. Right pleural drain has been removed. Right PICC remains in place. There has been placement of 2 right thoracostomy tubes. The heart remains upper limits of normal for size without pulmonary vascular congestion. There has been significant improvement in now tiny right apical pneumothorax and trace right pleural effusion. Marked emphysema and scattered areas of scarring are again seen in both lungs. IMPRESSION Interval removal of right pleural drain and placement of 2 right chest tubes with significant improvement in now tiny right apical pneumothorax and trace right pleural effusion. Marked emphysema. Finalized by Hi Morgan M.D. on 01/28/2018 2:30 PM. Dictated by Hi Morgan M.D. on 01/28/2018 2:28 PM. Performing Organization Address City/[facility] Phone Number RAD RESULTS * CULTURE-FUNGAL,OTHER (01/28/2018 12:07 PM BUSINESS TRANSFORMATION CONSULTANT) Battery Name FUNGUS CULTURE MAIN LAB Specimen Description TISSUE MAIN LAB RIGHT LOWER LOBE PLEURAL RIND Special Requests NONE MAIN LAB Culture NO GROWTH OF FUNGUS AT 4 WEEKS MAIN LAB Report Status FINAL MAIN LAB 02/28/2018 Specimen Tissue - Tissue Performing Organization Address [facility] Phone Number MAIN LAB [address] [place] [address] * GRAM STAIN (01/28/2018 12:07 PM BUSINESS TRANSFORMATION CONSULTANT) Battery Name GRAM STAIN MAIN LAB Specimen Description TISSUE MAIN LAB RIGHT LOWER LOBE PLEURAL RIND Special Requests NONE MAIN LAB Gram Stain FEW MAIN LAB NEUTROPHILS NO ORGANISMS SEEN Report Status FINAL MAIN LAB 01/28/2018 Specimen Tissue - Tissue Performing Organization Address [facility] Phone Number MAIN LAB [address] [place] [address] * CULTURE-TB (AFB) (01/28/2018 12:07 PM BUSINESS TRANSFORMATION CONSULTANT) Battery Name AFB CULTURE MAIN LAB Specimen Description TISSUE MAIN LAB RIGHT LOWER LOBE PLEURAL RIND Special Requests NONE MAIN LAB Culture NO GROWTH OF MYCOBACTERIA AT 6 MAIN LAB WEEKS Report Status FINAL MAIN LAB 03/21/2018 Specimen Tissue - Tissue Performing Organization Address [facility] Phone Number MAIN LAB [address] [place] [address] * CULTURE-WOUND/TISSUE/FLUID(AEROBIC ONLY)W/SENSITIVITY (01/28/2018 12:07 PM BUSINESS TRANSFORMATION CONSULTANT ) Battery Name ROUTINE CULTURE MAIN LAB Specimen Description TISSUE MAIN LAB RIGHT LOWER LOBE PLEURAL RIND Special Requests NONE MAIN LAB Direct Gram Stain FEW MAIN LAB NEUTROPHILS NO ORGANISMS SEEN Culture NO GROWTH 5 DAYS MAIN LAB Report Status FINAL MAIN LAB 02/02/2018 Specimen Tissue - Tissue Performing Organization Address [facility] Phone Number MAIN LAB [address] [place] [address] * CULTURE-ANAEROBIC (01/28/2018 12:07 PM BUSINESS TRANSFORMATION CONSULTANT) Battery Name ANAEROBE CULTURE [facility] MAIN LAB Specimen Description TISSUE [facility] MAIN LAB RIGHT LOWER LOBE PLEURAL RIND Special Requests NONE [facility] MAIN LAB Culture NO ANAEROBES ISOLATED [facility] MAIN LAB Report Status FINAL MAIN LAB 02/02/2018 Specimen Tissue - Tissue Performing Organization Address City/State/Zipcode Phone Number MAIN LAB [address] [place] [address] * CHEST SINGLE VIEW (01/28/2018 4:17 AM BUSINESS TRANSFORMATION CONSULTANT) Impressions Performed At Stable appearance of the chest, with a partially loculated right [facility] RAD RESULTS hydropneumothorax and extensive right lung consolidation. Finalized by GABRIELA WALLIS M.D. on 01/28/2018 8:37 AM. Dictated by GABRIELA WALLIS M.D. on 01/28/2018 8:34 AM. Narrative Performed At CHEST SINGLE VIEW [facility] RAD RESULTS Clinical history: chest tube. Comparison: Chest radiograph of one day earlier Findings: The heart size and pulmonary vascularity are within normal limits. A right PICC and right thoracostomy tube remain in place. A partially loculated right hydropneumothorax has not significantly changed. Extensive consolidation throughout the right lung also appears stable. There is a small left pleural effusion. The lungs are emphysematous. Procedure Note Interface, Radiant Results - 01/28/2018 8:40 AM BUSINESS TRANSFORMATION CONSULTANT CHEST SINGLE VIEW Clinical history: chest tube. Comparison: Chest radiograph of one day earlier Findings: The heart size and pulmonary vascularity are within normal limits. A right PICC and right thoracostomy tube remain in place. A partially loculated right hydropneumothorax has not significantly changed. Extensive consolidation throughout the right lung also appears stable. There is a small left pleural effusion. The lungs are emphysematous. IMPRESSION Stable appearance of the chest, with a partially loculated right hydropneumothorax and extensive right lung consolidation. Finalized by GABRIELA WALLIS M.D. on 01/28/2018 8:37 AM. Dictated by GABRIELA WALLIS M.D. on 01/28/2018 8:34 AM. Performing Organization Address City/State/Zipcode Phone Number [facility] RAD RESULTS * PHOSPHORUS (01/28/2018 3:10 AM BUSINESS TRANSFORMATION CONSULTANT) Phosphorus 5.4 (H)Comment: NOTE NEW 2.0 - 4.5 MG/DL [facility] MAIN LAB REFERENCE RANGES Specimen Blood Performing Organization Address [facility] Phone Number [facility] MAIN LAB [address] [place] [address] * MAGNESIUM (01/28/2018 3:10 AM BUSINESS TRANSFORMATION CONSULTANT) Magnesium 2.3 1.6 - 2.6 mg/dL [facility] MAIN LAB Specimen Blood Performing Organization Address [facility] Phone Number [facility] MAIN LAB [address] [place] [address] * COMPREHENSIVE METABOLIC PANEL (01/28/2018 3:10 AM BUSINESS TRANSFORMATION CONSULTANT) Sodium 137 137 - 147 MMOL/L [facility] MAIN LAB Potassium 4.2 3.5 - 5.1 MMOL/L [facility] MAIN LAB Chloride 106 98 - 110 MMOL/L [facility] MAIN LAB Glucose 100 70 - 100 MG/DL [facility] MAIN LAB Blood Urea Nitrogen 22 7 - 25 MG/DL [facility] MAIN LAB Creatinine 2.36 (H) 0.4 - 1.24 MG/DL [facility] MAIN LAB Calcium 8.2 (L) 8.5 - 10.6 MG/DL [facility] MAIN LAB Total Protein 5.5 (L) 6.0 - 8.0 G/DL [facility] MAIN LAB Total Bilirubin 0.3 0.3 - 1.2 MG/DL [facility] MAIN LAB Albumin 2.0 (L) 3.5 - 5.0 G/DL [facility] MAIN LAB Alk Phosphatase 94 25 - 110 U/L [facility] MAIN LAB AST (SGOT) 16 7 - 40 U/L [facility] MAIN LAB CO2 26 21 - 30 MMOL/L [facility] MAIN LAB ALT (SGPT) 12 7 - 56 U/L [facility] MAIN LAB Anion Gap 5 3 - 12 [facility] MAIN LAB eGFR Non 28 (L) >60 mL/min [facility] MAIN LAB Comment: The eGFR is not validated for use in drug dosing adjustments.Continue to use estimated creatinine clearance per dosing reference text.Please contact the Clinical Pharmacist for questions. eGFR 34 (L) >60 mL/min [facility] MAIN LAB Comment: The eGFR is not validated for use in drug dosing adjustments.Continue to use estimated creatinine clearance per dosing reference text.Please contact the Clinical Pharmacist for questions. Specimen Blood Performing Organization Address [facility] Phone Number [facility] MAIN LAB [address] [place] [address] * CBC AND DIFF (01/28/2018 3:10 AM BUSINESS TRANSFORMATION CONSULTANT) White Blood Cells 15.7 (H) 4.5 - 11.0 K/UL MAIN LAB RBC 2.58 (L) 4.4 - 5.5 M/UL MAIN LAB Hemoglobin 8.9 (L) 13.5 - 16.5 GM/DL MAIN LAB Hematocrit 26.7 (L) 40 - 50 % MAIN LAB MCV 103.7 (H) 80 - 100 FL MAIN LAB MCH 34.4 (H) 26 - 34 PG MAIN LAB MCHC 33.2 32.0 - 36.0 G/DL MAIN LAB RDW 18.9 (H) 11 - 15 % [facility] MAIN LAB Platelet Count 395 150 - 400 K/UL MAIN LAB MPV 6.6 (L) 7 - 11 FL MAIN LAB Neutrophils 87 (H) 41 - 77 % MAIN LAB Lymphocytes 5 (L) 24 - 44 % MAIN LAB Monocytes 5 4 - 12 % MAIN LAB Eosinophils 0 0 - 5 % [facility] Basophils 3 (H) 0 - 2 % [facility] Absolute Neutrophil Count 13.70 (H) 1.8 - 7.0 K/UL MAIN LAB Absolute Lymph Count 0.70 (L) 1.0 - 4.8 K/UL [facility] LAB Absolute Monocyte Count 0.70 0 - 0.80 K/UL [facility] Absolute Eosinophil Count 0.10 0 - 0.45 K/UL [facility] Absolute Basophil Count 0.50 (H) 0 - 0.20 K/UL MAIN LAB Specimen Blood Performing Organization Address City/[facility] Phone Number MAIN LAB [address] [place] [address] * TYPE & CROSSMATCH (01/28/2018 3:10 AM BUSINESS TRANSFORMATION CONSULTANT) Units Ordered 0 MAIN LAB Crossmatch Expires 01/31/2018 MAIN LAB Record Check FOUND MAIN LAB ABO/RH(D) O POS MAIN LAB Antibody Screen NEG MAIN LAB Electronic Crossmatch YES MAIN LAB Specimen Blood Performing Organization Address City/[facility] Phone [facility] MAIN LAB [address] [place] [address] * DIGOXIN LEVEL (01/28/2018 3:10 AM BUSINESS TRANSFORMATION CONSULTANT) Digoxin 1.6 (HH)Comment: Critical 0.5 - 1.0 NG/ML [facility] MAIN LAB Value DIG: Called To: IFTIKHAR Ty at: 03:58:23 by: KRYSTLE Read back by: IFTIKHAR Ty Specimen Blood Performing Organization Address City/State/Zipcode Phone Number MAIN LAB [address] [place] [address] * CHEST SINGLE VIEW (01/27/2018 9:18 AM BUSINESS TRANSFORMATION CONSULTANT) Narrative Performed At CHEST SINGLE VIEW [facility] RAD RESULTS Clinical Indication: Male, 62 years old. Chest tube Comparison: Chest x-ray 01/26/2018 Findings: A right PICC and right thoracostomy tube remain in similar positions. The cardiac silhouette is within normal limits. Stable appearance of the right loculated hydropneumothorax. There is slightly improved aeration throughout the right lung. Persistent emphysematous changes throughout both lungs. IMPRESSION 1. Stable appearance of the right loculated hydropneumothorax. 2. Slight decrease in the extensive consolidation in the right lung Approved by Samuel Worthington M.D. on 01/27/2018 10:46 AM By my electronic signature, I attest that I have personally reviewed the images for this examination and formulated the interpretations and opinions expressed in this report Finalized by Ancelmo Sheriff M.D. on 01/27/2018 4:34 PM. Dictated by Samuel Worthington M.D. on 01/27/2018 10:23 AM. Procedure Note Interface, Radiant Results - 01/27/2018 4:37 PM BUSINESS TRANSFORMATION CONSULTANT CHEST SINGLE VIEW Clinical Indication: Male, 62 years old. Chest tube Comparison: Chest x-ray 01/26/2018 Findings: A right PICC and right thoracostomy tube remain in similar positions. The cardiac silhouette is within normal limits. Stable appearance of the right loculated hydropneumothorax. There is slightly improved aeration throughout the right lung. Persistent emphysematous changes throughout both lungs. IMPRESSION 1. Stable appearance of the right loculated hydropneumothorax. 2. Slight decrease in the extensive consolidation in the right lung Approved by Samuel Worthington M.D. on 01/27/2018 10:46 AM By my electronic signature, I attest that I have personally reviewed the images for this examination and formulated the interpretations and opinions expressed in this report Finalized by Ancelmo Sheriff M.D. on 01/27/2018 4:34 PM. Dictated by Samuel Worthington M.D. on 01/27/2018 10:23 AM. Performing Organization Address City/[facility]/Zipcode Phone Number [facility] RAD RESULTS * PHOSPHORUS (01/27/2018 3:52 AM BUSINESS TRANSFORMATION CONSULTANT) Phosphorus 5.1 (H)Comment: NOTE NEW 2.0 - 4.5 MG/DL [facility] MAIN LAB REFERENCE RANGES Specimen Blood Performing Organization Address [facility] Phone Number MAIN LAB [address] [place] [address] * MAGNESIUM (01/27/2018 3:52 AM BUSINESS TRANSFORMATION CONSULTANT) Magnesium 2.3 1.6 - 2.6 mg/dL MAIN LAB Specimen Blood Performing Organization Address [facility] Phone Number MAIN LAB [address] [place] [address] * CBC AND DIFF (01/27/2018 3:52 AM BUSINESS TRANSFORMATION CONSULTANT) White Blood Cells 16.6 (H) 4.5 - 11.0 K/UL MAIN LAB RBC 2.58 (L) 4.4 - 5.5 M/UL [facility] Hemoglobin 8.8 (L) 13.5 - 16.5 GM/DL MAIN LAB Hematocrit 27.0 (L) 40 - 50 % MAIN LAB MCV 104.7 (H) 80 - 100 FL [facility] LAB MCH 34.1 (H) 26 - 34 PG MAIN LAB MCHC 32.6 32.0 - 36.0 G/DL [facility] RDW 18.7 (H) 11 - 15 % [facility] MAIN LAB Platelet Count 408 (H) 150 - 400 K/UL MAIN LAB MPV 6.6 (L) 7 - 11 FL MAIN LAB Neutrophils 86 (H) 41 - 77 % [facility] MAIN LAB Lymphocytes 5 (L) 24 - 44 % [facility] MAIN LAB Monocytes 7 4 - 12 % [facility] MAIN LAB Eosinophils 0 0 - 5 % [facility] MAIN LAB Basophils 2 0 - 2 % [facility] MAIN LAB Absolute Neutrophil Count 14.50 (H) 1.8 - 7.0 K/UL [facility] MAIN LAB Absolute Lymph Count 0.80 (L) 1.0 - 4.8 K/UL [facility] MAIN LAB Absolute Monocyte Count 1.10 (H) 0 - 0.80 K/UL [facility] MAIN LAB Absolute Eosinophil Count 0.00 0 - 0.45 K/UL [facility] MAIN LAB Absolute Basophil Count 0.30 (H) 0 - 0.20 K/UL MAIN LAB Specimen Blood Performing Organization Address City/[facility]/Zipcode Phone Number MAIN LAB [address] [place] [address] * BASIC METABOLIC PANEL (01/27/2018 3:52 AM BUSINESS TRANSFORMATION CONSULTANT) Sodium 138 137 - 147 MMOL/L [facility] MAIN LAB Potassium 4.5 3.5 - 5.1 MMOL/L [facility] MAIN LAB Chloride 106 98 - 110 MMOL/L [facility] MAIN LAB CO2 25 21 - 30 MMOL/L [facility] MAIN LAB Anion Gap 7 3 - 12 [facility] MAIN LAB Glucose 89 70 - 100 MG/DL [facility] MAIN LAB Blood Urea Nitrogen 20 7 - 25 MG/DL [facility] MAIN LAB Creatinine 2.10 (H) 0.4 - 1.24 MG/DL [facility] MAIN LAB Calcium 8.0 (L) 8.5 - 10.6 MG/DL [facility] MAIN LAB eGFR Non 32 (L) >60 mL/min [facility] MAIN LAB Comment: The eGFR is not validated for use in drug dosing adjustments.Continue to use estimated creatinine clearance per dosing reference text.Please contact the Clinical Pharmacist for questions. eGFR 39 (L) >60 mL/min [facility] MAIN LAB Comment: The eGFR is not validated for use in drug dosing adjustments.Continue to use estimated creatinine clearance per dosing reference text.Please contact the Clinical Pharmacist for questions. Specimen Blood Performing Organization Address City/[facility]/Zipcode Phone Number [facility] [address] [place] [address] * DIGOXIN LEVEL (01/27/2018 3:52 AM BUSINESS TRANSFORMATION CONSULTANT) Digoxin 2.1 (HH) 0.5 - 1.0 NG/ML [facility] Comment: Critical Value DIG: Called To: ANGUS Flores at: 04:52:37 by: GREG Read back by: ANGUS Flores Specimen Blood Performing Organization Address City/[facility]/Zipcode Phone Number [facility] [address] [place] [address] * BASIC METABOLIC PANEL (01/26/2018 2:20 PM BUSINESS TRANSFORMATION CONSULTANT) Sodium 136 (L) 137 - 147 MMOL/L [facility] MAIN LAB Potassium 4.8 3.5 - 5.1 MMOL/L [facility] MAIN LAB Chloride 104 98 - 110 MMOL/L MAIN LAB CO2 24 21 - 30 MMOL/L [facility] MAIN LAB Anion Gap 8 3 - 12 MAIN LAB Glucose 100 70 - 100 MG/DL MAIN LAB Blood Urea Nitrogen 18 7 - 25 MG/DL [facility] MAIN LAB Creatinine 2.08 (H) 0.4 - 1.24 MG/DL MAIN LAB Calcium 8.0 (L) 8.5 - 10.6 MG/DL [facility] MAIN LAB eGFR Non 33 (L) >60 mL/min [facility] MAIN LAB Comment: The eGFR is not validated for use in drug dosing adjustments.Continue to use estimated creatinine clearance per dosing reference text.Please contact the Clinical Pharmacist for questions. eGFR 39 (L) >60 mL/min [facility] MAIN LAB Comment: The eGFR is not validated for use in drug dosing adjustments.Continue to use estimated creatinine clearance per dosing reference text.Please contact the Clinical Pharmacist for questions. Specimen Blood Performing Organization Address City/[facility]/Zipcode Phone Number [facility] [address] [place] [address] * EOSINOPHIL STAIN (01/26/2018 8:05 AM BUSINESS TRANSFORMATION CONSULTANT) Battery Name EOSINOPHIL STAIN MAIN LAB Specimen Description URINE MAIN LAB Special Requests NONE MAIN LAB Morrison's Stain NO EOSINOPHILS SEEN MAIN LAB Report Status FINAL [facility] 01/26/2018 Specimen Urine Performing Organization Address City/[facility]/Zipcode Phone Number [facility] [address] [place] [address] * URINALYSIS, MICROSCOPIC (01/26/2018 8:05 AM BUSINESS TRANSFORMATION CONSULTANT) WBCs,UA 0-2 0 - 2 /HPF MAIN LAB RBCs,UA 0-2 0 - 3 /HPF MAIN LAB Specimen Urine - Urine Performing Organization Address City/[facility]/Zipcode Phone Number [facility] [address] [place] [address] * URINALYSIS DIPSTICK (01/26/2018 8:05 AM BUSINESS TRANSFORMATION CONSULTANT) Color,UA YELLOW MAIN LAB Turbidity,UA CLEAR CLEAR-CLEAR MAIN LAB Specific [place]-Urine 1.011 1.003 - 1.035 MAIN LAB pH,UA 5.0 5.0 - 8.0 MAIN LAB Protein,UA 1+ (A) NEG-NEG MAIN LAB Glucose,UA NEG NEG-NEG MAIN LAB Ketones,UA NEG NEG-NEG MAIN LAB Bilirubin,UA NEG NEG-NEG MAIN LAB Blood,UA NEG NEG-NEG [facility] MAIN LAB Urobilinogen,UA NORMAL NORM-NORMAL [facility] MAIN LAB Nitrite,UA NEG NEG-NEG [facility] MAIN LAB Leukocytes,UA NEG NEG-NEG [facility] MAIN LAB Urine Ascorbic Acid, UA NEG NEG-NEG [facility] MAIN LAB Specimen Urine - Urine Performing Organization Address [facility] Phone Number [facility] MAIN LAB [address] [place] [address] * UREA NITROGEN-URINE RANDOM (01/26/2018 8:05 AM BUSINESS TRANSFORMATION CONSULTANT) Urea Nitrogen 155 MG/DL [facility] MAIN LAB Specimen Urine - Urine Performing Organization Address [facility] [place] Phone Number [facility] MAIN LAB [address] [place] [address] * CREATININE-URINE RANDOM (01/26/2018 8:05 AM BUSINESS TRANSFORMATION CONSULTANT) Creatinine, Random 32 MG/DL MAIN LAB Specimen Urine - Urine Performing Organization Address [facility] [place] Phone Number MAIN LAB [address] [place] [address] * SODIUM-URINE RANDOM (01/26/2018 8:05 AM BUSINESS TRANSFORMATION CONSULTANT) Sodium, Random 31 MMOL/L MAIN LAB Specimen Urine - Urine Performing Organization Address [facility] [place] Phone Number MAIN LAB [address] [place] [address] * PHOSPHORUS (01/26/2018 4:30 AM BUSINESS TRANSFORMATION CONSULTANT) Phosphorus 4.2Comment: NOTE NEW REFERENCE 2.0 - 4.5 MG/DL [facility] MAIN LAB RANGES Specimen Blood Performing Organization Address [facility] [place] Phone Number [facility] MAIN LAB [address] [place] [address] * MAGNESIUM (01/26/2018 4:30 AM BUSINESS TRANSFORMATION CONSULTANT) Magnesium 2.4 1.6 - 2.6 mg/dL MAIN LAB Specimen Blood Performing Organization Address [facility] [place] Phone Number MAIN LAB [address] [place] [address] * COMPREHENSIVE METABOLIC PANEL (01/26/2018 4:30 AM BUSINESS TRANSFORMATION CONSULTANT) Sodium 135 (L) 137 - 147 MMOL/L [facility] MAIN LAB Potassium 4.8 3.5 - 5.1 MMOL/L [facility] MAIN LAB Chloride 103 98 - 110 MMOL/L [facility] MAIN LAB Glucose 104 (H) 70 - 100 MG/DL [facility] MAIN LAB Blood Urea Nitrogen 15 7 - 25 MG/DL [facility] MAIN LAB Creatinine 1.77 (H) 0.4 - 1.24 MG/DL [facility] MAIN LAB Calcium 8.0 (L) 8.5 - 10.6 MG/DL [facility] MAIN LAB Total Protein 5.5 (L) 6.0 - 8.0 G/DL [facility] MAIN LAB Total Bilirubin 0.2 (L) 0.3 - 1.2 MG/DL [facility] MAIN LAB Albumin 2.1 (L) 3.5 - 5.0 G/DL [facility] MAIN LAB Alk Phosphatase 96 25 - 110 U/L [facility] MAIN LAB AST (SGOT) 33 7 - 40 U/L [facility] MAIN LAB CO2 26 21 - 30 MMOL/L [facility] MAIN LAB ALT (SGPT) 22 7 - 56 U/L [facility] MAIN LAB Anion Gap 6 3 - 12 [facility] MAIN LAB eGFR Non 39 (L) >60 mL/min [facility] MAIN LAB Comment: The eGFR is not validated for use in drug dosing adjustments.Continue to use estimated creatinine clearance per dosing reference text.Please contact the Clinical Pharmacist for questions. eGFR 47 (L) >60 mL/min [facility] MAIN LAB Comment: The eGFR is not validated for use in drug dosing adjustments.Continue to use estimated creatinine clearance per dosing reference text.Please contact the Clinical Pharmacist for questions. Specimen Blood Performing Organization Address City/State/Zipcode Phone Number [facility] [address] [place] [address] * CBC AND DIFF (01/26/2018 4:30 AM BUSINESS TRANSFORMATION CONSULTANT) White Blood Cells 17.0 (H) 4.5 - 11.0 K/UL [facility] MAIN LAB RBC 2.78 (L) 4.4 - 5.5 M/UL [facility] MAIN LAB Hemoglobin 9.4 (L) 13.5 - 16.5 GM/DL [facility] MAIN LAB Hematocrit 29.2 (L) 40 - 50 % [facility] MAIN LAB MCV 105.1 (H) 80 - 100 FL [facility] MAIN LAB MCH 33.9 26 - 34 PG [facility] MAIN LAB MCHC 32.2 32.0 - 36.0 G/DL [facility] MAIN LAB RDW 18.8 (H) 11 - 15 % [facility] MAIN LAB Platelet Count 422 (H) 150 - 400 K/UL [facility] MAIN LAB MPV 6.5 (L) 7 - 11 FL [facility] MAIN LAB Neutrophils 86 (H) 41 - 77 % [facility] MAIN LAB Lymphocytes 5 (L) 24 - 44 % [facility] MAIN LAB Monocytes 8 4 - 12 % [facility] MAIN LAB Eosinophils 0 0 - 5 % [facility] MAIN LAB Basophils 1 0 - 2 % [facility] MAIN LAB Absolute Neutrophil Count 14.20 (H) 1.8 - 7.0 K/UL [facility] MAIN LAB Absolute Lymph Count 0.80 (L) 1.0 - 4.8 K/UL [facility] MAIN LAB Absolute Monocyte Count 1.40 (H) 0 - 0.80 K/UL [facility] MAIN LAB Absolute Eosinophil Count 0.00 0 - 0.45 K/UL [facility] MAIN LAB Absolute Basophil Count 0.10 0 - 0.20 K/UL [facility] MAIN LAB Specimen Blood Performing Organization Address City/State/Zipcode Phone Number [facility] MAIN LAB [address] [place] [address] * CHEST SINGLE VIEW (01/26/2018 4:18 AM BUSINESS TRANSFORMATION CONSULTANT) Impressions Performed At 1.Slight increase in the subpulmonic component of the loculated [facility] RAD RESULTS hydropneumothorax. 2.No significant change in the extensive consolidation in the right lung. Approved by Samuel Worthington M.D. on 01/26/2018 10:52 AM By my electronic signature, I attest that I have personally reviewed the images for this examination and formulated the interpretations and opinions expressed in this report Finalized by Amish Will M.D. on 01/26/2018 12:08 PM. Dictated by Samuel Worthington M.D. on 01/26/2018 8:37 AM. Narrative Performed At CHEST SINGLE VIEW [facility] RESULTS Clinical Indication: Male, 62 years old. Right lung consolidation, right chest tube Comparison: Chest x-ray 01/25/2018, CT chest 01/25/2018 Findings: A right PICC and right thoracostomy tube remain in similar positions. The cardiac silhouette is within normal limits. Slight increase in the subpulmonic component of the loculated hydropneumothorax. No significant change in the extensive consolidation throughout the right lung. Persistent emphysematous changes throughout both lungs. Procedure Note Interface, Radiant Results - 01/26/2018 12:11 PM BUSINESS TRANSFORMATION CONSULTANT CHEST SINGLE VIEW Clinical Indication: Male, 62 years old. Right lung consolidation, right chest tube Comparison: Chest x-ray 01/25/2018, CT chest 01/25/2018 Findings: A right PICC and right thoracostomy tube remain in similar positions. The cardiac silhouette is within normal limits. Slight increase in the subpulmonic component of the loculated hydropneumothorax. No significant change in the extensive consolidation throughout the right lung. Persistent emphysematous changes throughout both lungs. IMPRESSION 1. Slight increase in the subpulmonic component of the loculated hydropneumothorax. 2. No significant change in the extensive consolidation in the right lung. Approved by Samuel Worthington M.D. on 01/26/2018 10:52 AM By my electronic signature, I attest that I have personally reviewed the images for this examination and formulated the interpretations and opinions expressed in this report Finalized by Amish Will M.D. on 01/26/2018 12:08 PM. Dictated by Samuel Worthington M.D. on 01/26/2018 8:37 AM. Performing Organization Address City/State/Zipcode Phone Number [facility] RESULTS * CT CHEST WO CONTRAST (01/25/2018 12:18 PM BUSINESS TRANSFORMATION CONSULTANT) Impressions Performed At 1. Significant overall improvement in the moderate loculated hydropneumothorax [facility] RESULTS after placement of 2 pleural drains. 2. Persistent extensive right lung consolidation compatible with pneumonia and/or atelectasis. 3. Stable patchy and nodular left lung opacities with a small left pleural effusion. Follow-up chest CT in 6 months is again recommended to assess for stability or improvement of nodular components. 4. Marked emphysema. 5. At least moderate coronary artery calcification. 6. Healing bilateral anterior rib and sternal fractures. Approved by Samuel Worthington M.D. on 01/25/2018 2:15 PM By my electronic signature, I attest that I have personally reviewed the images for this examination and formulated the interpretations and opinions expressed in this report Finalized by Hi Morgan M.D. on 01/25/2018 2:19 PM. Dictated by Samuel Worthington M.D. on 01/25/2018 1:43 PM. Narrative Performed At CT Chest [facility] Clinical Indication: Right empyema Technique: Multiple contiguous axial CT images were obtained through the chest without IV contrast.Post processing coronal and sagittal reconstruction images were made from the axial images. Comparison: CT chest 01/21/2018 Findings: A right PICC remains in place. Axilla, Mediastinum and Linn: No axillary or hilar lymphadenopathy. Stable size of mildly prominent mediastinal lymph nodes which are likely reactive. Heart and Great Vessels: The heart size is normal. There is trace pericardial effusion. There is at least moderate coronary artery calcification. Lungs and Pleura: Marked emphysema bilaterally. Stable appearance of the extensive right lung consolidation. Resolution of the anterior component of the loculated pneumothorax after placement of an anterior pleural drain. There is been placement of a lower posterior right pleural drain with slight improvement in the lateral and lower loculated hydropneumothorax components. Stable appearance of the patchy nodular opacities in the left lung. Development of a small left pleural effusion with adjacent atelectasis. Chest Wall and Osseous Structures: Bilateral healing anterior rib fractures and healing sternal fracture again noted. Visualized Upper Abdomen: No significant upper abdominal abnormalities are identified. Procedure Note Interface, Radiant Results - 01/25/2018 2:22 PM BUSINESS TRANSFORMATION CONSULTANT CT Chest Clinical Indication: Right empyema Technique: Multiple contiguous axial CT images were obtained through the chest without IV contrast. Post processing coronal and sagittal reconstruction images were made from the axial images. Comparison: CT chest 01/21/2018 Findings: A right PICC remains in place. Axilla, Mediastinum and [place]: No axillary or hilar lymphadenopathy. Stable size of mildly prominent mediastinal lymph nodes which are likely reactive. Heart and Great Vessels: The heart size is normal. There is trace pericardial effusion. There is at least moderate coronary artery calcification. Lungs and Pleura: Marked emphysema bilaterally. Stable appearance of the extensive right lung consolidation. Resolution of the anterior component of the loculated pneumothorax after placement of an anterior pleural drain. There is been placement of a lower posterior right pleural drain with slight improvement in the lateral and lower loculated hydropneumothorax components. Stable appearance of the patchy nodular opacities in the left lung. Development of a small left pleural effusion with adjacent atelectasis. Chest Wall and Osseous Structures: Bilateral healing anterior rib fractures and healing sternal fracture again noted. Visualized Upper Abdomen: No significant upper abdominal abnormalities are identified. IMPRESSION 1. Significant overall improvement in the moderate loculated hydropneumothorax after placement of 2 pleural drains. 2. Persistent extensive right lung consolidation compatible with pneumonia and/ or atelectasis. 3. Stable patchy and nodular left lung opacities with a small left pleural effusion. Follow-up chest CT in 6 months is again recommended to assess for stability or improvement of nodular components. 4. Marked emphysema. 5. At least moderate coronary artery calcification. 6. Healing bilateral anterior rib and sternal fractures. Approved by Samuel Worthington M.D. on 01/25/2018 2:15 PM By my electronic signature, I attest that I have personally reviewed the images for this examination and formulated the interpretations and opinions expressed in this report Finalized by Hi Morgan M.D. on 01/25/2018 2:19 PM. Dictated by Samuel Worthington M.D. on 01/25/2018 1:43 PM. Performing Organization Address City/State/Zipcode Phone Number [facility] RESULTS * CHEST SINGLE VIEW (01/25/2018 6:14 AM BUSINESS TRANSFORMATION CONSULTANT) Impressions Performed At 1.Interval improvement in the partially loculated right hydropneumothorax [facility]ULTS with improved aeration of the right lung. 2.Stable appearance of bilateral emphysematous changes and spiculated opacity overlying the left lung. Approved by Samuel Worthington M.D. on 01/25/2018 10:36 AM By my electronic signature, I attest that I have personally reviewed the images for this examination and formulated the interpretations and opinions expressed in this report Finalized by Ancelmo Sheriff M.D. on 01/25/2018 10:54 AM. Dictated by Samuel Worthington M.D. on 01/25/2018 9:37 AM. Narrative Performed At CHEST SINGLE VIEW [facility] Clinical Indication: Male, 62 years old. Evaluating right lung, chest tubes Comparison: Chest x-ray 01/24/2018 Findings: A right PICC remains in place. The right-sided chest tubes remain in similar positions. The cardiac silhouette is within normal limits. Interval improvement in the partially loculated right hydropneumothorax with improved aeration of the right lung. Persistent changes of emphysema and parenchymal scarring throughout the lungs bilaterally. Stable appearance of a spiculated opacity of the left lung. Procedure Note Interface, Radiant Results - 01/25/2018 10:57 AM BUSINESS TRANSFORMATION CONSULTANT CHEST SINGLE VIEW Clinical Indication: Male, 62 years old. Evaluating right lung, chest tubes Comparison: Chest x-ray 01/24/2018 Findings: A right PICC remains in place. The right-sided chest tubes remain in similar positions. The cardiac silhouette is within normal limits. Interval improvement in the partially loculated right hydropneumothorax with improved aeration of the right lung. Persistent changes of emphysema and parenchymal scarring throughout the lungs bilaterally. Stable appearance of a spiculated opacity of the left lung. IMPRESSION 1. Interval improvement in the partially loculated right hydropneumothorax with improved aeration of the right lung. 2. Stable appearance of bilateral emphysematous changes and spiculated opacity overlying the left lung. Approved by Samuel Worthington M.D. on 01/25/2018 10:36 AM By my electronic signature, I attest that I have personally reviewed the images for this examination and formulated the interpretations and opinions expressed in this report Finalized by Ancelmo Sheriff M.D. on 01/25/2018 10:54 AM. Dictated by Samuel Worthington M.D. on 01/25/2018 9:37 AM. Performing Organization Address [facility] Phone Number [facility] RESULTS * PHOSPHORUS (01/25/2018 3:38 AM BUSINESS TRANSFORMATION CONSULTANT) Phosphorus 3.2Comment: NOTE NEW REFERENCE 2.0 - 4.5 MG/DL MAIN LAB RANGES Specimen Blood Performing Organization Address [facility] [place] Phone Number [facility] [address] [place] [address] * MAGNESIUM (01/25/2018 3:38 AM BUSINESS TRANSFORMATION CONSULTANT) Magnesium 2.2 1.6 - 2.6 mg/dL [facility] MAIN [facility] Specimen Blood Performing Organization Address [facility] [place] Phone Number MAIN LAB [address] [place] [address] * BASIC METABOLIC PANEL (01/25/2018 3:38 AM BUSINESS TRANSFORMATION CONSULTANT) Sodium 134 (L) 137 - 147 MMOL/L [facility] Potassium 4.5 3.5 - 5.1 MMOL/L [facility] Chloride 103 98 - 110 MMOL/L [facility] CO2 29 21 - 30 MMOL/L [facility] Anion Gap 2 (L) 3 - 12 [facility] Glucose 106 (H) 70 - 100 MG/DL [facility] Blood Urea Nitrogen 6 (L) 7 - 25 MG/DL [facility] Creatinine 0.41 0.4 - 1.24 MG/DL [facility] MAIN LAB [...] Address City/State/Zipcode Phone Number [facility] [address] [place] [address] * CBC AND DIFF (01/25/2018 3:38 AM BUSINESS TRANSFORMATION CONSULTANT) White Blood Cells 12.9 (H) 4.5 - 11.0 K/UL [facility] MAIN [facility] RBC 2.67 (L) 4.4 - 5.5 M/UL [facility] Hemoglobin 8.9 (L) 13.5 - 16.5 GM/DL [facility] MAIN LAB Hematocrit 28.1 (L) 40 - 50 % [facility] MCV 105.3 (H) 80 - 100 FL [facility]IN [facility] MCH 33.4 26 - 34 PG [facility] MCHC 31.7 (L) 32.0 - 36.0 G/DL [facility]IN [facility] RDW 18.6 (H) 11 - 15 % [facility] Platelet Count 428 (H) 150 - 400 K/UL [facility] MPV 6.4 (L) 7 - 11 FL [facility] MAIN [facility] Neutrophils 86 (H) 41 - 77 % [facility] Lymphocytes 7 (L) 24 - 44 % [facility] Monocytes 5 4 - 12 % [facility] Eosinophils 0 0 - 5 % [facility] Basophils 2 0 - 2 % [facility] Absolute Neutrophil Count 11.20 (H) 1.8 - 7.0 K/UL [facility] Absolute Lymph Count 0.90 (L) 1.0 - 4.8 K/UL [facility] Absolute Monocyte Count 0.60 0 - 0.80 K/UL [facility] Absolute Eosinophil Count 0.00 0 - 0.45 K/UL [facility] Absolute Basophil Count 0.20 0 - 0.20 K/UL [facility] Specimen Blood Performing Organization Address City/State/Zipcode Phone Number [facility] [address] [place] [address] * PHOSPHORUS (01/24/2018 3:15 AM BUSINESS TRANSFORMATION CONSULTANT) Phosphorus 2.8Comment: NOTE NEW REFERENCE 2.0 - 4.5 MG/DL [facility] MAIN LAB RANGES Specimen Blood Performing Organization Address [facility] Phone Number MAIN LAB [address] [place] [address] * MAGNESIUM (01/24/2018 3:15 AM BUSINESS TRANSFORMATION CONSULTANT) Magnesium 2.4 1.6 - 2.6 mg/dL [facility] MAIN [facility] Specimen Blood Performing Organization Address [facility] Phone Number MA[facility] LAB [address] [place] [address] * COMPREHENSIVE METABOLIC PANEL (01/24/2018 3:15 AM BUSINESS TRANSFORMATION CONSULTANT) Sodium 133 (L) 137 - 147 MMOL/L [facility] MAIN [facility] Potassium 4.4 3.5 - 5.1 MMOL/L [facility] Chloride 102 98 - 110 MMOL/L [facility] Glucose 121 (H) 70 - 100 MG/DL [facility] Blood Urea Nitrogen 9 7 - 25 MG/DL [facility] Creatinine 0.56 0.4 - 1.24 MG/DL [facility] Calcium 8.0 (L) 8.5 - 10.6 MG/DL [facility] Total Protein 5.4 (L) 6.0 - 8.0 G/DL [facility] Total Bilirubin 0.2 (L) 0.3 - 1.2 MG/DL [facility] Albumin 2.1 (L) 3.5 - 5.0 G/DL [facility] MAIN [facility] Alk Phosphatase 93 25 - 110 U/L [facility] MA[facility] AST (SGOT) 31 7 - 40 U/L [facility] CO2 28 21 - 30 MMOL/L [facility] ALT (SGPT) 20 7 - 56 U/L [facility] Anion Gap 3 3 - 12 [facility] MAIN LAB eGFR [...] for questions. Specimen Blood Performing Organization Address [facility] Phone Number MA[facility] LAB [address] [place] [address] * CBC AND DIFF (01/24/2018 3:15 AM BUSINESS TRANSFORMATION CONSULTANT) White Blood Cells 14.4 (H) 4.5 - 11.0 K/UL [facility] MAIN [facility] RBC 2.76 (L) 4.4 - 5.5 M/UL [facility] Hemoglobin 9.3 (L) 13.5 - 16.5 GM/DL [facility] MAIN LAB Hematocrit 28.9 (L) 40 - 50 % [facility] MCV 104.6 (H) 80 - 100 FL [facility]IN [facility] MCH 33.6 26 - 34 PG [facility] MCHC 32.1 32.0 - 36.0 G/DL [facility] RDW 18.4 (H) 11 - 15 % [facility] Platelet Count 403 (H) 150 - 400 K/UL [facility] MPV 7.0 7 - 11 FL [facility] Neutrophils 89 (H) 41 - 77 % [facility] Lymphocytes 5 (L) 24 - 44 % [facility] Monocytes 6 4 - 12 % [facility] Eosinophils 0 0 - 5 % [facility] Basophils 0 0 - 2 % [facility] Absolute Neutrophil Count 12.70 (H) 1.8 - 7.0 K/UL [facility] Absolute Lymph Count 0.80 (L) 1.0 - 4.8 K/UL [facility]IN [facility] Absolute Monocyte Count 0.90 (H) 0 - 0.80 K/UL [facility] Absolute Eosinophil Count 0.00 0 - 0.45 K/UL [facility] MAIN [facility] Absolute Basophil Count 0.00 0 - 0.20 K/UL [facility] MAIN LAB Specimen Blood Performing Organization Address [facility]/Zipcode Phone Number [facility] [address] [place] [address] * CHEST SINGLE VIEW (01/24/2018 2:10 AM BUSINESS TRANSFORMATION CONSULTANT) Impressions Performed At 1. Persistent loculated right hydropneumothorax with increased opacity [facility] RESULTS throughout the right hemithorax which may reflect increased consolidation or pleural fluid component. 2. Emphysema and scattered parenchymal scarring with spiculated opacity projecting over the left upper lung better evaluated on prior CT. Approved by Anup Henry M.D. on 01/24/2018 9:30 AM By my electronic signature, I attest that I have personally reviewed the images for this examination and formulated the interpretations and opinions expressed in this report Finalized by Amish Will M.D. on 01/24/2018 9:37 AM. Dictated by Anup Henry M.D. on 01/24/2018 7:43 AM. Narrative Performed At CHEST SINGLE VIEW [facility] RESULTS Indication: Male, 62 years old, R sided empyema s/p 2 chest tubes Comparison: January 23, 2018 FINDINGS: Right PICC and 2 right chest tubes remain in similar position. Normal size heart without pulmonary venous congestion.Increased opacity throughout the right hemithorax with persistent loculated right hydropneumothorax. Emphysema and parenchymal scarring redemonstrated throughout the left lung. Spiculated opacity projecting over the left upper lung, better evaluated on prior CT. Procedure Note Interface, Radiant Results - 01/24/2018 9:40 AM BUSINESS TRANSFORMATION CONSULTANT CHEST SINGLE VIEW Indication: Male, 62 years old, R sided empyema s/p 2 chest tubes Comparison: January 23, 2018 FINDINGS: Right PICC and 2 right chest tubes remain in similar position. Normal size heart without pulmonary venous congestion. Increased opacity throughout the right hemithorax with persistent loculated right hydropneumothorax. Emphysema and parenchymal scarring redemonstrated throughout the left lung. Spiculated opacity projecting over the left upper lung, better evaluated on prior CT. IMPRESSION 1. Persistent loculated right hydropneumothorax with increased opacity throughout the right hemithorax which may reflect increased consolidation or pleural fluid component. 2. Emphysema and scattered parenchymal scarring with spiculated opacity projecting over the left upper lung better evaluated on prior CT. Approved by Anup Henry M.D. on 01/24/2018 9:30 AM By my electronic signature, I attest that I have personally reviewed the images for this examination and formulated the interpretations and opinions expressed in this report Finalized by Amish iWll M.D. on 01/24/2018 9:37 AM. Dictated by Anup Henry M.D. on 01/24/2018 7:43 AM. Performing Organization Address City/State/Zipcode Phone Number [facility] RESULTS * VANCOMYCIN TROUGH (01/23/2018 9:19 PM BUSINESS TRANSFORMATION CONSULTANT) Vancomycin Trough 16.2 10.0 - 20.0 MCG/ML MAIN LAB Specimen Blood, venous - Blood Performing Organization Address [facility] [place] Phone Number MAIN LAB [address] [place] [address] * POTASSIUM (01/23/2018 6:10 PM BUSINESS TRANSFORMATION CONSULTANT) Potassium 4.2 3.5 - 5.1 MMOL/L MAIN LAB Specimen Blood Performing Organization Address [facility] Phone Number MA[facility] LAB [address] [place] [address] * MAGNESIUM (01/23/2018 6:10 PM BUSINESS TRANSFORMATION CONSULTANT) Magnesium 2.7 (H) 1.6 - 2.6 mg/dL MAIN LAB Specimen Blood Performing Organization Address [facility] [place] Phone Number MAIN LAB [address] [place] [address] * POTASSIUM (01/23/2018 11:30 AM BUSINESS TRANSFORMATION CONSULTANT) Potassium 3.1 (L) 3.5 - 5.1 MMOL/L MAIN LAB Specimen Blood Performing Organization Address [facility] Phone Number [facility] LAB [address] [place] [address] * MAGNESIUM (01/23/2018 11:30 AM BUSINESS TRANSFORMATION CONSULTANT) Magnesium 1.7 1.6 - 2.6 mg/dL MAIN LAB Specimen Blood Performing Organization Address [facility] Phone Number MA[facility] LAB [address] [place] [address] * PHOSPHORUS (01/23/2018 3:40 AM BUSINESS TRANSFORMATION CONSULTANT) Phosphorus 3.1Comment: NOTE NEW REFERENCE 2.0 - 4.5 MG/DL MAIN LAB RANGES Specimen Blood Performing Organization Address [facility] Phone Number MA[facility] LAB [address] [place] [address] * MAGNESIUM (01/23/2018 3:40 AM BUSINESS TRANSFORMATION CONSULTANT) Magnesium 1.8 1.6 - 2.6 mg/dL MAIN LAB Specimen Blood Performing Organization Address [facility] Phone Number MA[facility] LAB [address] [place] [address] * COMPREHENSIVE METABOLIC PANEL (01/23/2018 3:40 AM BUSINESS TRANSFORMATION CONSULTANT) Sodium 134 (L) 137 - 147 MMOL/L [facility] MAIN [facility] Potassium 3.3 (L) 3.5 - 5.1 MMOL/L [facility] MAIN [facility] Chloride 99 98 - 110 MMOL/L [facility] Glucose 152 (H) 70 - 100 MG/DL [facility]IN [facility] Blood Urea Nitrogen 11 7 - 25 MG/DL [facility] Creatinine 0.64 0.4 - 1.24 MG/DL [facility] Calcium 8.1 (L) 8.5 - 10.6 MG/DL [facility] Total Protein 5.7 (L) 6.0 - 8.0 G/DL [facility] Total Bilirubin 0.3 0.3 - 1.2 MG/DL [facility] MA[facility] Albumin 2.2 (L) 3.5 - 5.0 G/DL [facility] MAIN [facility] Alk Phosphatase 120 (H) 25 - 110 U/L [facility] MAIN [facility] AST (SGOT) 16 7 - 40 U/L [facility] MA[facility] CO2 27 21 - 30 MMOL/L [facility] ALT (SGPT) 17 7 - 56 U/L [facility] Anion Gap 8 3 - 12 [facility] MAIN [facility] eGFR [...] Organization Address City/State/Zipcode Phone Number MAIN LAB [address] [place] [address] * CBC AND DIFF (01/23/2018 3:40 AM BUSINESS TRANSFORMATION CONSULTANT) White Blood Cells 28.8 (H) 4.5 - 11.0 K/UL [facility] MAIN [facility] RBC 2.99 (L) 4.4 - 5.5 M/UL [facility] MAIN [facility] Hemoglobin 10.1 (L) 13.5 - 16.5 GM/DL [facility] MAIN [facility] Hematocrit 31.5 (L) 40 - 50 % [facility] MCV 105.2 (H) 80 - 100 FL [facility] MAIN [facility] MCH 33.8 26 - 34 PG [facility] MCHC 32.1 32.0 - 36.0 G/DL [facility]IN [facility] RDW 19.0 (H) 11 - 15 % [facility] Platelet Count 572 (H) 150 - 400 K/UL [facility] MPV 6.7 (L) 7 - 11 FL [facility] Neutrophils 91 (H) 41 - 77 % [facility] Lymphocytes 4 (L) 24 - 44 % [facility] Monocytes 2 (L) 4 - 12 % [facility] Eosinophils 0 0 - 5 % [facility] Basophils 3 (H) 0 - 2 % [facility] Absolute Neutrophil Count 26.20 (H) 1.8 - 7.0 K/UL [facility] Absolute Lymph Count 1.10 1.0 - 4.8 K/UL [facility] Absolute Monocyte Count 0.70 0 - 0.80 K/UL [facility] Absolute Eosinophil Count 0.00 0 - 0.45 K/UL [facility] Absolute Basophil Count 0.90 (H) 0 - 0.20 K/UL [facility] MAIN [facility] Specimen Blood Performing Organization Address City/State/Zipcode Phone Number [facility] [address] [place] [address] * CHEST SINGLE VIEW (01/23/2018 12:36 AM BUSINESS TRANSFORMATION CONSULTANT) Impressions Performed At 1.No significant change in right parenchymal opacities. No discretely [facility] RAD RESULTS visualized right pneumothorax. Decrease in right pleural fluid. Approved by Osvaldo Pineda M.D. on 01/23/2018 11:57 AM By my electronic signature, I attest that I have personally reviewed the images for this examination and formulated the interpretations and opinions expressed in this report Finalized by Manjinder Porras M.D. on 01/23/2018 1:05 PM. Dictated by Osvaldo Pineda M.D. on 01/23/2018 10:33 AM. Narrative Performed At CHEST SINGLE VIEW [facility] RAD RESULTS Clinical Indication: Male, 62 years old. Chest tube Comparison: Chest radiograph from previous day Findings: Right PICC in similar position. 2 chest tubes project over the right hemithorax. No significant change in right parenchymal opacities and pleural fluid. No discrete right pneumothorax is identified. Persistent mixed opacities throughout the right lung and emphysema in pleural-parenchymal scarring throughout the left lung. Procedure Note Interface, Radiant Results - 01/23/2018 1:08 PM BUSINESS TRANSFORMATION CONSULTANT CHEST SINGLE VIEW Clinical Indication: Male, 62 years old. Chest tube Comparison: Chest radiograph from previous day Findings: Right PICC in similar position. 2 chest tubes project over the right hemithorax. No significant change in right parenchymal opacities and pleural fluid. No discrete right pneumothorax is identified. Persistent mixed opacities throughout the right lung and emphysema in pleural-parenchymal scarring throughout the left lung. IMPRESSION 1. No significant change in right parenchymal opacities. No discretely visualized right pneumothorax. Decrease in right pleural fluid. Approved by Osvaldo Pineda M.D. on 01/23/2018 11:57 AM By my electronic signature, I attest that I have personally reviewed the images for this examination and formulated the interpretations and opinions expressed in this report Finalized by Manjinder Porras M.D. on 01/23/2018 1:05 PM. Dictated by Osvaldo Pineda M.D. on 01/23/2018 10:33 AM. Performing Organization Address [facility] [place] Phone Number RAD RESULTS * LDH-LACTATE DEHYDROGENASE (01/23/2018 12:30 AM BUSINESS TRANSFORMATION CONSULTANT) Lactate Dehydrogenase 168 100 - 210 U/L MAIN LAB Specimen Blood Performing Organization Address [facility] [place] Phone Number MAIN LAB [address] [place] [address] * CULTURE-TB (AFB) (01/22/2018 7:35 PM BUSINESS TRANSFORMATION CONSULTANT) Battery Name AFB CULTURE MAIN LAB Specimen Description PLEURAL FLUID MAIN LAB R hydropneumothorax tube 2 Special Requests NONE MAIN LAB Culture NO GROWTH OF MYCOBACTERIA AT 6 MAIN LAB WEEKS Report Status FINAL MAIN LAB 03/14/2018 Specimen Pleural Fluid Performing Organization Address [facility] [place] Phone Number MAIN LAB [address] [place] [address] * CULTURE-FUNGAL,OTHER (01/22/2018 7:35 PM BUSINESS TRANSFORMATION CONSULTANT) Battery Name FUNGUS CULTURE MAIN LAB Specimen Description PLEURAL FLUID MAIN LAB R hydropneumothorax tube 2 Special Requests NONE MAIN LAB Culture NO GROWTH OF FUNGUS AT 4 WEEKS MAIN LAB Report Status FINAL MAIN LAB 02/21/2018 Specimen Pleural Fluid Performing Organization Address [facility] [place] Phone Number MAIN LAB [address] [place] [address] * GRAM STAIN (01/22/2018 7:35 PM BUSINESS TRANSFORMATION CONSULTANT) Battery Name GRAM STAIN [facility] MAIN LAB Specimen Description PLEURAL FLUID [facility] MAIN LAB R hydropneumothorax tube 2 Special Requests NONE [facility] MAIN LAB Gram Stain MANY [facility] MAIN LAB NEUTROPHILS NO ORGANISMS SEEN Report Status FINAL [facility] MAIN LAB 01/23/2018 Specimen Pleural Fluid Performing Organization Address [facility] Phone Number [facility] [address] [place] [address] * CULTURE-WOUND/TISSUE/FLUID(AEROBIC ONLY)W/SENSITIVITY (01/22/2018 7:35 PM BUSINESS TRANSFORMATION CONSULTANT ) Battery Name ROUTINE CULTURE [facility] MAIN LAB Specimen Description PLEURAL FLUID [facility] MAIN LAB R hydropneumothorax tube 2 Special Requests NONE MAIN LAB Direct Gram Stain MANY MAIN LAB NEUTROPHILS NO ORGANISMS SEEN Culture NO GROWTH 5 DAYS KU MAIN LAB Report Status FINAL [facility] MAIN LAB 01/27/2018 Specimen Pleural Fluid Performing Organization Address [facility] Phone Number [facility] MAIN LAB [address] [place] [address] * PLEURAL FLUID TRIGLYCERIDES (01/22/2018 7:35 PM BUSINESS TRANSFORMATION CONSULTANT) Pleural Fluid 42 mg/dL [facility] MAIN LAB Triglycerides Comment: Triglycerides >110 mg/dL is suggestive of a chylothorax.Triglycerides <50 mg/dL is suggestive of pseudochylothorax. Specimen Pleural Fluid Performing Organization Address [facility] Phone Number MAIN LAB [address] [place] [address] * PLEURAL FLUID TOTAL PROTEIN (01/22/2018 7:35 PM BUSINESS TRANSFORMATION CONSULTANT) Pleural Fluid Total 4.0 (H)Comment: Serum to <1.1 g/dL [facility] MAIN LAB Protein pleural fluid protein gradient >3.1 g/dL is suggestive of an exudate Specimen Pleural Fluid Performing Organization Address [facility] Phone Number [facility] MA[facility] [address] [place] [address] * PLEURAL FLUID PH (01/22/2018 7:35 PM BUSINESS TRANSFORMATION CONSULTANT) Pleural Fluid Ph 7.64 7.60 - 7.66 [facility] MAIN LAB Specimen Pleural Fluid Performing Organization Address [facility] Phone Number [facility] MA[facility] [address] [place] [address] * PLEURAL FLUID LIPASE (01/22/2018 7:35 PM BUSINESS TRANSFORMATION CONSULTANT) Pleural Fluid Lipase <3 U/L [facility] MAIN LAB Comment: Ascites due to pancreatitis is associated with lipase >3 times higher than plasma. Specimen Pleural Fluid Performing Organization Address [facility] Phone Number [facility] MA[facility] [address] [place] [address] * PLEURAL FLUID GLUCOSE (01/22/2018 7:35 PM BUSINESS TRANSFORMATION CONSULTANT) Pleural Fluid Glucose <10 (L) 70 - 100 mg/dL [facility] MAIN LAB Comment: Glucose <60 mg/dL associated withparapneumonic effusion, tuberculosis, malignancy, empyema, and rheumatoid disease Specimen Pleural Fluid Performing Organization Address [facility] Phone Number [facility] MAIN [facility] [address] [place] [address] * PLEURAL FLUID LACTATE DEHYDROGENASE (01/22/2018 7:35 PM BUSINESS TRANSFORMATION CONSULTANT) Pleural Fluid Lactate 2,376 (H)Comment: Higher 67 - 140 U/L [facility] MAIN LAB Dehydrogenase levels suggestive of exudate Specimen Pleural Fluid Performing Organization [facility] [place] Phone Number [facility] MAIN LAB [address] [place] [address] * PLEURAL FLUID CHOLESTEROL (01/22/2018 7:35 PM BUSINESS TRANSFORMATION CONSULTANT) Pleural Fluid Cholesterol 62 (H) <45 mg/dL [facility] MAIN LAB Comment: Pleural fluid cholesterol reference range is <45 mg/dL. Elevated level is suggestive of an exudate Specimen Pleural Fluid Performing Organization Address [facility] [place] Phone Number [facility] MAIN LAB [address] [place] [address] * PLEURAL FLUID TOTAL BILIRUBIN (01/22/2018 7:35 PM BUSINESS TRANSFORMATION CONSULTANT) Pleural Fluid Total 0.4 mg/dL [facility] MAIN LAB Bilirubin Comment: Pleural fluid to serum bilirubin ratio of 0.6 suggests the presence of an exudate Specimen Pleural Fluid Performing Organization Address [facility] [place] Phone Number [facility] MAIN LAB [address] [place] [address] * PLEURAL FLUID AMYLASE (01/22/2018 7:35 PM BUSINESS TRANSFORMATION CONSULTANT) Pleural Fluid Amylase 15 U/L [facility] MAIN LAB Comment: Elevated pleural fluid value is a level higher than the upper limit of normal for plasma. Specimen Pleural Fluid Performing Organization Address [facility] [place] Phone Number [facility] MAIN LAB [address] [place] [address] * PLEURAL FLUID ALBUMIN (01/22/2018 7:35 PM BUSINESS TRANSFORMATION CONSULTANT) Pleural Fluid Albumin 1.6Comment: Pleural fluid g/dL MAIN LAB albumin gradient >1.2 g/dL is suggestive of an exudate Specimen Pleural Fluid Performing Organization Address [facility] Phone Number MAIN LAB [address] [place] [address] * CELL COUNT W/DIFF-FLUIDS (01/22/2018 7:35 PM BUSINESS TRANSFORMATION CONSULTANT) White Blood Cells,Fluid 12,995 /UL MAIN LAB Red Blood Cells,Fluid 8,265 /UL [facility] MAIN LAB Segmented Neutrophils, 91 % [facility] MAIN LAB Fluid Lymphocytes,Fluid 2 % [facility] MAIN LAB Monocyte/Histo,Fluid 7 % [facility] MAIN LAB Fluid Source PLEURAL FLUID [facility] MAIN LAB Pathology ACUTE INFLAMMATION MAIN LAB Interpretation,Fluid HEMORRHAGIC FLUID Pathologist Signature INTERPRETED BY MANDA BLACK M.D. [facility] By the PATH SIGNATURE ABOVE, I attest that I have personally formulated the final interpretation expressed in this report and that the above diagnosis is based upon my examination of the slides and/or other material indicated in this report. Specimen Fluid - Pleural Fluid Performing Organization Address [facility] Phone Number MAIN LAB [address] [place] [address] * LACTIC ACID (BG - RAPID LACTATE) (01/22/2018 7:15 PM BUSINESS TRANSFORMATION CONSULTANT) Lactic Acid,BG 1.1 0.5 - 2.0 MMOL/L MAIN LAB Performing Organization Address [facility] Phone Number [facility] [address] [place] [address] * O2 SATURATION, CENTRAL VENOUS (01/22/2018 7:15 PM BUSINESS TRANSFORMATION CONSULTANT) O2 Sat, Central Venous 55.5 % [facility] Specimen Blood Performing Organization Address [facility] Phone Number [facility] [address] [place] [address] * CHEST SINGLE VIEW (01/22/2018 6:57 PM BUSINESS TRANSFORMATION CONSULTANT) Impressions Performed At Slight improvement in fluid component of the loculated right hydropneumothorax [facility] with chest tubes in place. Approved by Osvaldo Pineda M.D. on 01/23/2018 10:16 AM By my electronic signature, I attest that I have personally reviewed the images for this examination and formulated the interpretations and opinions expressed in this report Finalized by Manjinder Porras M.D. on 01/23/2018 12:50 PM. Dictated by Osvaldo Pineda M.D. on 01/23/2018 9:12 AM. Narrative Performed At CHEST SINGLE VIEW [facility] Clinical Indication: Male, 62 years old. Status post chest tube Comparison: Chest radiograph from 01/22/2018, CT chest from 01/21/2018 Findings: Right PICC and right pleural drain in similar position. Placement of an additional pleural drain which projects over the lower right hemithorax. Slight improvement in opacification of the low right lung. No significant change in extensive mixed opacities throughout the right upper lung. Emphysema and pleural parenchymal scarring in the left lung are unchanged. Loculated right hydropneumothorax is similar in appearance. Cardiomediastinal configuration is unchanged. Procedure Note Interface, Radiant Results - 01/23/2018 12:53 PM BUSINESS TRANSFORMATION CONSULTANT CHEST SINGLE VIEW Clinical Indication: Male, 62 years old. Status post chest tube Comparison: Chest radiograph from 01/22/2018, CT chest from 01/21/2018 Findings: Right PICC and right pleural drain in similar position. Placement of an additional pleural drain which projects over the lower right hemithorax. Slight improvement in opacification of the low right lung. No significant change in extensive mixed opacities throughout the right upper lung. Emphysema and pleural parenchymal scarring in the left lung are unchanged. Loculated right hydropneumothorax is similar in appearance. Cardiomediastinal configuration is unchanged. IMPRESSION Slight improvement in fluid component of the loculated right hydropneumothorax with chest tubes in place. Approved by Osvaldo Pineda M.D. on 01/23/2018 10:16 AM By my electronic signature, I attest that I have personally reviewed the images for this examination and formulated the interpretations and opinions expressed in this report Finalized by Manjinder Porras M.D. on 01/23/2018 12:50 PM. Dictated by Osvaldo Pineda M.D. on 01/23/2018 9:12 AM. Performing Organization Address City/State/Zipcode Phone Number [facility] RAD RESULTS * LINE [facility]T 1V CXR (01/22/2018 6:20 PM BUSINESS TRANSFORMATION CONSULTANT) Impressions Performed At Placement of an additional [...] 01/23/2018 9:18 AM. Narrative Performed At LINE [facility] 1 CXR [facility] RAD RESULTS Clinical Indication: Male, [...] Interface, Radiant Results - 01/23/2018 12:55 PM BUSINESS TRANSFORMATION CONSULTANT [facility] 1V CXR Clinical Indication: Male, 62 years [...] * CHEST TUBE INSERTION (01/22/2018 6:14 PM BUSINESS TRANSFORMATION CONSULTANT) Narrative Performed At Cici Jenkins 01/22/20186:28 PM [...] to verify the correct patient, procedure, equipment, manager sales support and site/side marked as required. Indications: pleural effusion Indications comments: hydropneumothorax Sedation: Patient sedated: no Anesthesia: local infiltration Anesthesia: Local Anesthetic: lidocaine 1% with epinephrine Preparation: skin prepped with Chloraprep Placement location: right lateral Scalpel size: 10 Tube size: 8 [place] Ultrasound guidance: yes Tension pneumothorax heard: no Tube connected to: suction Drainage characteristics: cloudy and serosanguinous Suture material: 2-0 silk Dressinx4 sterile gauze and Xeroform gauze Post-insertion x-ray findings: tube in good position Patient tolerance: Patient tolerated the procedure well with no immediate complications * CHEST SINGLE VIEW (01/22/2018 5:06 PM BUSINESS TRANSFORMATION CONSULTANT) Impressions Performed At 1. Right PICC line is unchanged. The inferior right thoracostomy tube has been [facility] removed. The more superior thoracostomy tube is unchanged. Loculated right hydropneumothorax is unchanged from prior study. 2. Extensive severe mixed patchy opacities in the right lung is again noted similar to the previous exam. Emphysema and pleural parenchymal scarring left lung again noted. Finalized by Manjinder Porras M.D. on 01/23/2018 12:35 PM. Dictated by Manjinder Porras M.D. on 01/23/2018 12:29 PM. Narrative Performed At Chest single view [facility] RES[facility] INDICATION: 62-year-old male, status post chest tube COMPARISON: January 16, 2018 Procedure Note Interface, Radiant Results - 01/23/2018 12:38 PM BUSINESS TRANSFORMATION CONSULTANT Chest single view INDICATION: 62-year-old male, status post chest tube COMPARISON: January 16, 2018 IMPRESSION 1. Right PICC line is unchanged. The inferior right thoracostomy tube has been removed. The more superior thoracostomy tube is unchanged. Loculated right hydropneumothorax is unchanged from prior study. 2. Extensive severe mixed patchy opacities in the right lung is again noted similar to the previous exam. Emphysema and pleural parenchymal scarring left lung again noted. Finalized by Manjinder Porras M.D. on 01/23/2018 12:35 PM. Dictated by Manjinder Porras M.D. on 01/23/2018 12:29 PM. Performing Organization Address [facility] Phone Number RAD RESULTS * CHEST TUBE INSERTION (01/22/2018 5:02 PM BUSINESS TRANSFORMATION CONSULTANT) Narrative Performed At Henry Flores MD 01/22/20188:34 PM Chest Tube Date/Time: 01/22/2018 5:02 PM Performed by: Cici Jenkins Authorized by: Henry Flores MD Consent: The procedure was performed in an emergent situation. Patient identity confirmed: verbally with patient, arm band, provided demographic data and hospital-assigned identification number Time out: Immediately prior to procedure a "time out" was called to verify the correct patient, procedure, equipment, manager sales support and site/side marked as required. Indications: pneumothorax Sedation: Patient sedated: no Anesthesia: local infiltration Anesthesia: Local Anesthetic: lidocaine 1% with epinephrine Preparation: skin prepped with Chloraprep Placement location: right anterior Scalpel size: 10 Tube size: 8 [place] Ultrasound guidance: yes Tension pneumothorax heard: no Tube connected to: suction Suture material: 2-0 silk Dressinx4 sterile gauze and Xeroform gauze Patient tolerance: Patient tolerated the procedure well with no immediate complications * GRAM STAIN (01/22/2018 9:34 AM BUSINESS TRANSFORMATION CONSULTANT) Battery Name GRAM STAIN [facility]U MAIN LAB Specimen Description SPUTUM [facility] MAIN LAB Special Requests NONE [facility]U MAIN LAB Gram Stain SPECIMEN CONTAINS >25 SQUAMOUS [facility]U MAIN LAB EPITHELIAL CELLS INDICATING CONTAMINATION WITH SALIVA. GROWTH WILL REPRESENT NORMAL MOUTH ALVARO. SPECIMEN DOES NOT MEET CRITERIA FOR CULTURE. Notified Angus 12.8 at 1440 by nr Report Status FINAL MAIN LAB 01/22/2018 Specimen Sputum Performing Organization Address City/[facility]/Zipcode Phone Number MAIN LAB [address] [place] [address] * PHOSPHORUS (01/22/2018 4:56 AM BUSINESS TRANSFORMATION CONSULTANT) Phosphorus 3.4Comment: NOTE NEW REFERENCE 2.0 - 4.5 MG/DL KU MAIN LAB RANGES Specimen Blood Performing Organization Address [facility]/Zipcode Phone Number MAIN LAB [address] [place] [address] * MAGNESIUM (01/22/2018 4:56 AM BUSINESS TRANSFORMATION CONSULTANT) Magnesium 1.7 1.6 - 2.6 mg/dL [facility] MAIN LAB Specimen Blood Performing Organization Address [facility] Phone Number [facility] MAIN [facility] [address] [place] [address] * COMPREHENSIVE METABOLIC PANEL (01/22/2018 4:56 AM BUSINESS TRANSFORMATION CONSULTANT) Sodium 132 (L) 137 - 147 MMOL/L [facility] MAIN LAB Potassium 3.5 3.5 - 5.1 MMOL/L [facility] MAIN LAB Chloride 95 (L) 98 - 110 MMOL/L [facility] MAIN LAB Glucose 82 70 - 100 MG/DL [facility] MAIN LAB Blood Urea Nitrogen 8 7 - 25 MG/DL [facility] MAIN LAB Creatinine 0.47 0.4 - 1.24 MG/DL [facility] MAIN LAB Calcium 8.7 8.5 - 10.6 MG/DL [facility] MAIN LAB Total Protein 6.2 6.0 - 8.0 G/DL [facility] MAIN LAB Total Bilirubin 0.4 0.3 - 1.2 MG/DL [facility] MAIN LAB Albumin 2.5 (L) 3.5 - 5.0 G/DL [facility] MAIN LAB Alk Phosphatase 115 (H) 25 - 110 U/L [facility] MAIN LAB AST (SGOT) 16 7 - 40 U/L [facility] MAIN LAB CO2 31 (H) 21 - 30 MMOL/L [facility] MAIN LAB ALT (SGPT) 28 7 - 56 U/L [facility] MAIN LAB Anion Gap 6 3 - 12 [facility] MAIN LAB eGFR [...] for questions. Specimen Blood Performing Organization Address [facility]/Zipcode Phone Number MAIN LAB [address] [place] [address] * CBC AND DIFF (01/22/2018 4:56 AM BUSINESS TRANSFORMATION CONSULTANT) White Blood Cells 24.4 (H) 4.5 - 11.0 K/UL [facility] MAIN LAB RBC 2.85 (L) 4.4 - 5.5 M/UL [facility] MAIN LAB Hemoglobin 9.7 (L) 13.5 - 16.5 GM/DL [facility] MAIN LAB Hematocrit 29.9 (L) 40 - 50 % [facility] MAIN LAB MCV 104.9 (H) 80 - 100 FL [facility] MAIN LAB MCH 34.2 (H) 26 - 34 PG [facility] MAIN LAB MCHC 32.6 32.0 - 36.0 G/DL [facility] MAIN LAB RDW 18.0 (H) 11 - 15 % [facility] MAIN LAB Platelet Count 423 (H) 150 - 400 K/UL [facility] MAIN LAB MPV 7.5 7 - 11 FL [facility] MAIN LAB Neutrophils 93 (H) 41 - 77 % [facility] MAIN LAB Lymphocytes 3 (L) 24 - 44 % [facility] MAIN LAB Monocytes 4 4 - 12 % [facility] MAIN LAB Eosinophils 0 0 - 5 % [facility] MAIN LAB Basophils 0 0 - 2 % [facility] MAIN LAB Absolute Neutrophil Count 22.60 (H) 1.8 - 7.0 K/UL [facility] MAIN LAB Absolute Lymph Count 0.60 (L) 1.0 - 4.8 K/UL [facility] MAIN LAB Absolute Monocyte Count 1.00 (H) 0 - 0.80 K/UL [facility] MAIN LAB Absolute Eosinophil Count 0.00 0 - 0.45 K/UL [facility] MAIN LAB Absolute Basophil Count 0.10 0 - 0.20 K/UL [facility] MAIN LAB Specimen Blood Performing Organization Address City/State/Zipcode Phone Number [facility] MAIN LAB [address] [place] [address] * BASIC METABOLIC PANEL (01/21/2018 10:56 PM BUSINESS TRANSFORMATION CONSULTANT) Sodium 130 (L) 137 - 147 MMOL/L [facility] MAIN LAB Potassium 3.5 3.5 - 5.1 MMOL/L [facility] MAIN LAB Chloride 94 (L) 98 - 110 MMOL/L [facility] MAIN LAB CO2 30 21 - 30 MMOL/L [facility] MAIN LAB Anion Gap 6 3 - 12 [facility] MAIN LAB Glucose 103 (H) 70 - 100 MG/DL [facility] MAIN LAB Blood Urea Nitrogen 7 7 - 25 MG/DL [facility] MAIN LAB Creatinine 0.49 0.4 - 1.24 MG/DL [facility] MAIN LAB Calcium 8.5 8.5 - 10.6 MG/DL [facility] MAIN LAB [...] Address City/State/Zipcode Phone Number [facility] MAIN LAB [address] [place] [address] * TELEMETRY STRIPS-SCAN (01/21/2018 12:00 AM BUSINESS TRANSFORMATION CONSULTANT) Narrative Performed At Ordered by an unspecified provider. 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 Pneumonia Pneumonia, organism unspecified Paroxysmal 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 (HCC) Atrial fibrillation CAD (coronary artery disease) Coronary atherosclerosis of unspecified type of vessel, [place] or graft Cytomegalovirus (CMV) viremia (HCC) Cytomegaloviral disease S/P ablation of 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 Other postprocedural status Sepsis (HCC) Unspecified septicemia Secondary spontaneous pneumothorax Legionella pneumonia (HCC) Legionnaires' disease Shock (HCC) Shock, unspecified HTN (hypertension) Unspecified essential hypertension HLD (hyperlipidemia) Other and unspecified hyperlipidemia in this encounter Admitting Diagnoses Diagnosis Loculated pleural effusion Unspecified pleural effusion in this encounter Administered Medications Action Date Dose Rate Site Medication Order MAR Action acetaminophen (TYLENOL) tablet 1,000 mg 1,000 mg, Oral, EVERY 6 HOURS PRN, Starting Wed02/01/18 at 0845, Until Wed02/02/18 at 1643, Pain non-opioid: may be used alone or in combination with opioid analgesia, Temp > 38.5 C, TOTAL ACETAMINOPHEN DOSE NOT TO EXCEED 4GM DAILY, 01/26/2018 8:06 PM BUSINESS TRANSFORMATION CONSULTANT 650 mg acetaminophen (TYLENOL) tablet 650 mg Given 650 mg, Oral, EVERY 4 HOURS PRN, Starting Wed01/21/18 at 1932, Until Wed02/01/18 at 0835, Pain non-opioid: may be used alone or in combination with opioid analgesia, Temp > 38.5 C, TOTAL ACETAMINOPHEN DOSE NOT TO EXCEED 4GM DAILY, 650 mg Given 01/22/2018 6:59 PM BUSINESS TRANSFORMATION CONSULTANT 02/02/2018 5:41 AM BUSINESS TRANSFORMATION CONSULTANT 3 mL acetylcysteine (MUCOMYST) 200 mg/mL (20 Given %) nebulizer solution 3 mL 3 mL, Inhalation, RT EVERY 12 HOURS, First dose on Wed01/24/18 at 1200, Until Discontinued, When administered by RT, will be per RT policy. Vmil=[id number]/ml, 3 mL Given 02/01/2018 5:30 PM BUSINESS TRANSFORMATION CONSULTANT 3 mL Given 02/01/2018 5:33 AM BUSINESS TRANSFORMATION CONSULTANT 01/24/2018 12:50 PM BUSINESS TRANSFORMATION CONSULTANT 2.5 mg albuterol 0.083% (PROVENTIL; VENTOLIN) Given nebulizer solution 2.5 mg 2.5 mg, Inhalation, RT EVERY 12 HOURS, First dose on Wed01/24/18 at 1200, Until Discontinued, Administer 10-15 minutes prior to mucomyst inhalation When administered by RT, will be per RT policy., 01/26/2018 8:42 AM BUSINESS TRANSFORMATION CONSULTANT 2.5 mg albuterol 0.083% (PROVENTIL; VENTOLIN) Given nebulizer solution 2.5 mg 2.5 mg, Inhalation, RT EVERY 12 HOURS, First dose on Wed01/25/18 at 1950, Until Discontinued, Administer 10-15 minutes prior to mucomyst inhalation, 2.5 mg Given 01/25/2018 9:58 PM BUSINESS TRANSFORMATION CONSULTANT 01/24/2018 10:11 PM BUSINESS TRANSFORMATION CONSULTANT 2.5 mg albuterol 0.5% (PROVENTIL; VENTOLIN) Given nebulizer solution 2.5 mg 2.5 mg, Inhalation, RT EVERY 4 HOURS PRN, Starting Wed01/24/18 at 2210, Until Wed01/25/18 at 0831, RT PROTOCOL, When administered by RT, will be per RT policy., 02/02/2018 5:40 AM BUSINESS TRANSFORMATION CONSULTANT 2.5 mg albuterol 0.5% (PROVENTIL; VENTOLIN) Given nebulizer solution 2.5 mg 2.5 mg, Inhalation, RT TWICE DAILY AND PRN, First dose on Wed01/26/18 at 2245, Until Discontinued, When administered by RT, will be per RT policy., 2.5 mg Given 02/01/2018 5:29 PM BUSINESS TRANSFORMATION CONSULTANT 2.5 mg Given 02/01/2018 5:32 AM BUSINESS TRANSFORMATION CONSULTANT ALBUTEROL SULFATE 2.5 MG/0.5 ML IN NEBU (Cabinet Override) NOW, 1 dose, Wed01/26/18 at 2000, Created by cabinet override, Created by cabinet override, 01/25/2018 8:39 AM BUSINESS TRANSFORMATION CONSULTANT 10 mg alteplase (ACTIVASE) 10 mg in sodium Given chloride 0.9% (NS) 30 mL intrapleural syringe 10 mg, 30 mL, Intrapleural, TWICE DAILY, 6 doses, First dose on 01/22/18 at 2100, Last dose on Wed01/25/18 at 0900, Instill in posterior chest tube, , Cardiology specific: administration must be performed by authorized TOOTH C[employer]TER SPUR, fellow or attending, Pulmonary specific: administration must be performed by the ordering LIP or competency validated registered nurse (contact unit 61 charge nurse), Alteplase: Administer through pleural catheter and clamp x1 hour after administration then unclamp., Dornase: To be administered after Alteplase. Administer through pleural catheter and clamp x1 hour after administration then unclamp., Do not recommend administering both medications at the same time. , RN to send inbasket when ready for administration, --FOR INTRAPLEURAL ADMINISTRATION ONLY, 10 mg Given 01/24/2018 9:47 PM BUSINESS TRANSFORMATION CONSULTANT 10 mg Given 01/24/2018 10:30 AM BUSINESS TRANSFORMATION CONSULTANT 01/24/2018 11:49 AM BUSINESS TRANSFORMATION CONSULTANT 2 mg alteplase (CATHFLO ACTIVASE) injection 2 Given mg 2 mg, Intra-catheter, TWICE DAILY PRN, Starting 01/22/18 at 0326, Until Wed02/02/18 at 1643, Clotted vascular access 2 mg Given 01/22/2018 4:10 AM BUSINESS TRANSFORMATION CONSULTANT 2 mg Given 01/22/2018 4:09 AM BUSINESS TRANSFORMATION CONSULTANT 01/29/2018 6:12 PM BUSINESS TRANSFORMATION CONSULTANT 2 mg alteplase (CATHFLO ACTIVASE) injection 2 Given mg 2 mg, Injection, ONCE, 1 dose, 01/29/18 at 1800 01/23/2018 2:05 AM BUSINESS TRANSFORMATION CONSULTANT 150 mg 600 mL/hr amiodarone (CORDARONE) 150 mg in Given dextrose 5% (D5W) 100 mL IVPB (load) 150 mg, Intravenous, 100 mL, Administer over 10 Minutes, ONCE, 1 dose, [place] 01/23/18 at 0115, SPECIAL TUBING REQUIRED Bolus Dose, 01/24/2018 7:26 AM BUSINESS TRANSFORMATION CONSULTANT 0.5 mg/min 17 mL/hr amiodarone (CORDARONE) 360 mg in Given - New dextrose, iso-osm 200 mL infusion Bag 0.5-1 mg/min (16.6667-33.3333 mL/hr, rounded to 17-33 mL/hr) 200 mL, at 17-33 mL/hr, Intravenous, TITRATE DIRECTED , Starting [place] 01/23/18 at 0115, Until Wed01/24/18 at 1048, SPECIAL TUBING REQUIRED Std conc=1.8mg/mL. Initiate infusion at 1mg/min for the first 6 hours, followed by 0.5mg/min maint rate., 0.5 mg/min 17 mL/hr Given - New Bag 01/23/2018 7:40 PM BUSINESS TRANSFORMATION CONSULTANT 0.5 mg/min 17 mL/hr Given - New Bag 01/23/2018 9:01 AM BUSINESS TRANSFORMATION CONSULTANT 02/02/2018 8:29 AM BUSINESS TRANSFORMATION CONSULTANT 500 mg ascorbic acid (VITAMIN C) tablet 500 mg Given 500 mg, Oral, DAILY, First dose on Wed01/22/18 at 0900, Until Discontinued 500 mg Given 02/01/2018 8:51 AM BUSINESS TRANSFORMATION CONSULTANT 500 mg Given 01/31/2018 8:04 AM BUSINESS TRANSFORMATION CONSULTANT 01/24/2018 8:07 AM BUSINESS TRANSFORMATION CONSULTANT 2 puffs budesonide/formoterol (SYMBICORT HFA) Given 160/4.5 mcg inhalation 2 puff 2 puff, Inhalation, RT TWICE DAILY, First dose on Wed01/21/18 at 2030, Until Discontinued, When administered by RT, will be per RT policy., 2 puffs Given 01/23/2018 8:40 PM BUSINESS TRANSFORMATION CONSULTANT 2 puffs Given 01/23/2018 9:58 AM BUSINESS TRANSFORMATION CONSULTANT 01/28/2018 12:12 PM BUSINESS TRANSFORMATION CONSULTANT 266 mg Chest, Right bupivacaine liposome (PF) (EXPAREL) 266 Given mg/20 mL (13.3 mg/mL) injection 20 mL 20 mL (266 mg), SEE ADMIN INSTRUCTIONS, ONCE IN HEART OR, 1 dose, Wed01/28/18 at 1145, Inject slowly into tissues with trained technique. Note: Bupivacaine, ropivacaine, and lidocaine contraindicated within 96 hours of administration of this drug. Apply Exparel wristband to patient wrist with date and time of Exparel administration. DO NOT remove wristband for 96 hours from date and time administered. >>>>>>>>>>>>>>>EXPAREL WRISTBAND REQUIRED<<<<<<<<<<<<<<< NOTE: This is a HIGH ALERT Medication., 01/22/2018 5:52 AM BUSINESS TRANSFORMATION CONSULTANT 1 g 100 mL/hr cefepime (MAXIPIME) 1 g/50 ml Given iso-osmotic IVPB 1 g, Intravenous, 50 mL, Administer over 30 Minutes, EVERY 8 HOURS, First dose on Wed01/21/18 at 2030, Until Discontinued 1 g 100 mL/hr Given 01/21/2018 10:35 PM BUSINESS TRANSFORMATION CONSULTANT 02/02/2018 8:29 AM BUSINESS TRANSFORMATION CONSULTANT 400 Units cholecalciferol (VITAMIN D-3) tablet 400 Given Units 400 Units, Oral, DAILY, First dose on Wed01/22/18 at 0900, Until Discontinued 400 Units Given 02/01/2018 9:10 AM BUSINESS TRANSFORMATION CONSULTANT 400 Units Given 01/31/2018 9:20 AM BUSINESS TRANSFORMATION CONSULTANT 02/02/2018 3:52 PM BUSINESS TRANSFORMATION CONSULTANT 125 mcg digoxin (LANOXIN) tablet 125 mcg Given 125 mcg, Oral, DAILY, First dose on Wed02/02/18 at 1600, Until Discontinued, Hold for heart rate < 60 bpm. NOTE: PHARMACOKINETIC MONITORING, 01/26/2018 8:25 AM BUSINESS TRANSFORMATION CONSULTANT 250 mcg digoxin (LANOXIN) tablet 250 mcg Given 250 mcg, Oral, DAILY, First dose on Wed01/22/18 at 0900, Until Discontinued, Hold for heart rate < 60 bpm NOTE: PHARMACOKINETIC MONITORING, 250 mcg Given 01/25/2018 9:04 AM BUSINESS TRANSFORMATION CONSULTANT 250 mcg Given 01/24/2018 9:10 AM BUSINESS TRANSFORMATION CONSULTANT 01/23/2018 8:56 PM BUSINESS TRANSFORMATION CONSULTANT 200 mg docusate (COLACE) capsule 200 mg Given 200 mg, Oral, TWICE DAILY, First dose on Wed01/21/18 at 2100, Until Discontinued, Hold for loose stools, 200 mg Given 01/23/2018 8:59 AM BUSINESS TRANSFORMATION CONSULTANT 01/25/2018 9:51 AM BUSINESS TRANSFORMATION CONSULTANT 5 mg dornase merlyn (PULMOZYME) 5 mg in water Given (sterile) for injection 30 mL intrapleural syringe 5 mg, 30 mL, Intrapleural, TWICE DAILY, 6 doses, First dose on Wed01/22/18 at 2100, Last dose on Wed01/25/18 at 0900, Instill in posterior chest tube, , Cardiology specific: administration must be performed by authorized TOOTH CUTTER SPUR, fellow or attending, Pulmonary specific: administration must be performed by the ordering LIP or competency validated registered nurse (contact unit 61 charge nurse), Alteplase: Administer through pleural catheter and clamp x1 hour after administration then unclamp., Dornase: To be administered after Alteplase. Administer through pleural catheter and clamp x1 hour after administration then unclamp., Do not recommend administering both medications at the same time. , RN to send inbasket when ready for administration, --FOR INTRAPLEURAL ADMINISTRATION ONLY--, 5 mg Given 01/24/2018 10:53 PM BUSINESS TRANSFORMATION CONSULTANT 5 mg Given 01/24/2018 11:42 AM BUSINESS TRANSFORMATION CONSULTANT 01/26/2018 8:07 PM BUSINESS TRANSFORMATION CONSULTANT 40 mg Abdomen:RLQ enoxaparin (LOVENOX) syringe 40 mg Given 40 mg, Subcutaneous, DAILY, First dose on Wed01/25/18 at 2100, Until Discontinued, For patients undergoing surgery: Consult physician in advance -- enoxaparin is an anticoagulant and may need to be held for 12hr prior to surgery or invasive procedures. NOTE: This is a HIGH ALERT Medication., 40 mg Abdominal Tissue Given 01/25/2018 8:24 PM BUSINESS TRANSFORMATION CONSULTANT 02/02/2018 8:29 AM BUSINESS TRANSFORMATION CONSULTANT 40 mg Abdominal Tissue enoxaparin (LOVENOX) syringe 40 mg Given 40 mg, Subcutaneous, DAILY, First dose on Wed01/29/18 at 0900, Until Discontinued, For patients undergoing surgery: Consult physician in advance -- enoxaparin is an anticoagulant and may need to be held for 12hr prior to surgery or invasive procedures. NOTE: This is a HIGH ALERT Medication., 40 mg Abdominal Tissue Given 02/01/2018 8:50 AM BUSINESS TRANSFORMATION CONSULTANT 40 mg Abdominal Tissue Given 01/31/2018 8:03 AM BUSINESS TRANSFORMATION CONSULTANT 01/31/2018 12:51 PM BUSINESS TRANSFORMATION CONSULTANT fentaNYL (SUBLIMAZE) VISUAL EFFECTS ARTIST 550 mcg/ NS Given - New 55 mL infusion syr (std conc)(premade) Bag Intravenous, VISUAL EFFECTS ARTIST, Starting Wed01/28/18 at 1445, Until Wed02/01/18 at 0835, VISUAL EFFECTS ARTIST Additional Bolus (Pain >5): 25 mcg, Re-assess in 15 minutes, may repeat bolus ONE time if pain not adequately controlled (MAXIMUM of 2 bolus doses only). Check pump to ensure proper function and appropriate patient utilization. If pain is still not adequately controlled, contact physician. Stop VISUAL EFFECTS ARTIST if patient difficult to arouse, or systolic BP drops more than 20 mmHg from baseline. fentaNYL VISUAL EFFECTS ARTIST Conc=10 mcg/mL Administer only with VISUAL EFFECTS ARTIST Pump -- Only Patient may push VISUAL EFFECTS ARTIST button. NOTE: This is a HIGH ALERT Medication. MEDICATION DOUBLE CHECK Policy applies., Dose/Rate Verify 01/31/2018 7:30 AM BUSINESS TRANSFORMATION CONSULTANT Dose/Rate Verify 01/30/2018 7:17 PM BUSINESS TRANSFORMATION CONSULTANT 01/23/2018 12:11 AM BUSINESS TRANSFORMATION CONSULTANT 25 mcg fentaNYL citrate PF (SUBLIMAZE) Given injection 25 mcg 25 mcg, Intravenous, ONCE, 1 dose, 01/23/18 at 0000 01/28/2018 1:53 PM BUSINESS TRANSFORMATION CONSULTANT 50 mcg fentaNYL citrate PF (SUBLIMAZE) Given injection 25-100 mcg 25-100 mcg, Intravenous, ONCE, 1 dose, Wed01/28/18 at 1400 01/28/2018 8:12 AM BUSINESS TRANSFORMATION CONSULTANT 2 sprays fluticasone (FLONASE) nasal spray 2 Given spray 2 spray, Each Nostril, DAILY, First dose on Wed01/22/18 at 0900, Until Discontinued 2 sprays Given 01/27/2018 9:10 AM BUSINESS TRANSFORMATION CONSULTANT 2 sprays Given 01/26/2018 8:44 AM BUSINESS TRANSFORMATION CONSULTANT 01/22/2018 6:23 PM BUSINESS TRANSFORMATION CONSULTANT 60 mg furosemide (LASIX) tablet 60 mg Given 60 mg, Oral, TWICE DAILY, First dose on Wed01/22/18 at 0900, Until Discontinued 60 mg Given 01/22/2018 9:20 AM BUSINESS TRANSFORMATION CONSULTANT 02/02/2018 8:29 AM BUSINESS TRANSFORMATION CONSULTANT 600 mg guaiFENesin LA (MUCINEX) tablet 600 mg Given 600 mg, Oral, TWICE DAILY, First dose on Wed01/21/18 at 2100, Until Discontinued 600 mg Given 02/01/2018 8:32 PM BUSINESS TRANSFORMATION CONSULTANT 600 mg Given 02/01/2018 8:51 AM BUSINESS TRANSFORMATION CONSULTANT 01/28/2018 4:23 AM BUSINESS TRANSFORMATION CONSULTANT 1 tablet HYDROcodone/acetaminophen (NORCO) 5/325 Given mg tablet 1 tablet 1 tablet, Oral, EVERY 6 HOURS PRN, Starting Wed01/21/18 at 1932, Until Wed02/01/18 at 0835, Pain PO, TOTAL ACETAMINOPHEN DOSE NOT TO EXCEED 4GM DAILY NOTE: This is a HIGH ALERT Medication., 1 tablet Given 01/27/2018 3:40 PM BUSINESS TRANSFORMATION CONSULTANT 1 tablet Given 01/27/2018 5:43 AM BUSINESS TRANSFORMATION CONSULTANT 01/24/2018 3:16 AM BUSINESS TRANSFORMATION CONSULTANT 1 mg HYDROmorphone injection (DILAUDID) Given injection 1-2 mg 1-2 mg, Intravenous, EVERY 4 HOURS PRN, Starting 01/23/18 at 0006, Until Wed01/24/18 at 0939, Pain Injectable 1 mg Given 01/23/2018 8:52 PM BUSINESS TRANSFORMATION CONSULTANT 2 mg Given 01/23/2018 3:12 PM BUSINESS TRANSFORMATION CONSULTANT 02/02/2018 5:53 AM BUSINESS TRANSFORMATION CONSULTANT 372 mg isavuconazonium sulfate (CRESEMBA) Given capsule 372 mg 372 mg, Oral, DAILY, First dose on Wed01/21/18 at 2100, Until Discontinued 372 mg Given 02/01/2018 5:14 AM BUSINESS TRANSFORMATION CONSULTANT 372 mg Given 01/31/2018 5:59 AM BUSINESS TRANSFORMATION CONSULTANT 01/26/2018 1:46 AM BUSINESS TRANSFORMATION CONSULTANT 30 mg ketorolac (TORADOL) injection 30 mg Given 30 mg, Intravenous, EVERY 6 HOURS PRN, Starting Wed01/23/18 at 0005, Until Wed01/26/18 at 0648, Pain non-opioid: may be used alone or in combination with opioid analgesia, Please note: this medication will be automatically discontinued 5 days after ordered per hospital policy. Please obtain a new order if the medication needs to be continued., 30 mg Given 01/25/2018 4:15 PM BUSINESS TRANSFORMATION CONSULTANT 30 mg Given 01/25/2018 8:44 AM BUSINESS TRANSFORMATION CONSULTANT 01/22/2018 7:28 PM BUSINESS TRANSFORMATION CONSULTANT 500 mL lactated ringers infusion Given - New 1,000 mL, 500 mL, Intravenous, BOLUS, 1 Bag dose, 01/22/18 at 1845, With NICOM, 01/26/2018 8:04 AM BUSINESS TRANSFORMATION CONSULTANT 1,000 mL 125 mL/hr lactated ringers infusion Given - New 1,000 mL, 1,000 mL, Intravenous, at 125 Bag mL/hr, ONCE, 1 dose, 01/26/18 at 0730 01/27/2018 9:10 AM BUSINESS TRANSFORMATION CONSULTANT 1 patch Back, Lower Right lidocaine (LIDODERM) 5 % topical patch Patch/Topica 1-2 patch l Applied 1-2 patch, Topical, Administer over 12 Hours, DAILY, First dose on Wed01/21/18 at 1945, Until Discontinued, NURSING PLEASE NOTE: Apply patch ONCE DAILY to chest and REMOVE after designated duration. Apply only to intact skin. Patch may be cut to fit affected area., 2 patches Chest, Right Patch/Topical Applied 01/26/2018 8:43 AM BUSINESS TRANSFORMATION CONSULTANT 2 patches Chest, Right Patch/Topical Applied 01/25/2018 8:44 AM BUSINESS TRANSFORMATION CONSULTANT 02/02/2018 8:29 AM BUSINESS TRANSFORMATION CONSULTANT 400 mg magnesium oxide (MAG-OX) tablet 400 mg Given 400 mg, Oral, TWICE DAILY, First dose on Wed01/21/18 at 2100, Until Discontinued, Delivers 241.3mg elemental magnesium per tab, 400 mg Given 02/01/2018 8:32 PM BUSINESS TRANSFORMATION CONSULTANT 400 mg Given 02/01/2018 8:51 AM BUSINESS TRANSFORMATION CONSULTANT 02/02/2018 11:46 AM BUSINESS TRANSFORMATION CONSULTANT 1 g 100 mL/hr magnesium sulfate 1 g/D5W 100 mL IVPB Given - New 1 g, Intravenous, 100 mL, Administer Bag over 1 Hours, NEEDED, Starting 01/23/18 at 0752, Until Wed02/02/18 at 1643, Other..., magnesium replacement (see Admin Instructions), If urine output < 30 mL/hr or SCr >2 mg/dL, check with physician prior to giving magnesium replacement. - For Serum Magnesium > 2.1 mg/dL, No replacement necessary. - For Serum Magnesium 1.8 - 2.0 mg/dL, give Magnesium Sulfate 2 grams IV over 2 hours. - For Serum Magnesium 1.6 - 1.7 mg/dL, give Magnesium Sulfate 3 grams IV over 3 hours. - For Serum Magnesium 1.3 - 1.5 mg/dL, give Magnesium Sulfate 4 grams IV over 4 hours. - For Serum Magnesium <=1.2 mg/dL, give Magnesium Sulfate 6 grams IV over 6 hours AND notify physician. Recheck serum magnesium level 2 hours after completion of appropriate replacement dose. Repeat this standing order x 1. Notify physician if serum magnesium < 2.1 mg/dL after two replacements. Infuse each 1gm Magnesium sulfate over 1 hour. Each 1 gm delivers 8.1 mEq Magnesium., 1 g 100 mL/hr Given - New Bag 02/02/2018 9:40 AM BUSINESS TRANSFORMATION CONSULTANT 1 g 100 mL/hr Given - New Bag 02/02/2018 8:37 AM BUSINESS TRANSFORMATION CONSULTANT 01/22/2018 8:03 PM BUSINESS TRANSFORMATION CONSULTANT 12.5 mg metoprolol tartrate (LOPRESSOR) tablet Given 12.5 mg 12.5 mg, Oral, TWICE DAILY, First dose on Wed01/21/18 at 2100, Until Discontinued, Hold for heart rate < 60 bpm or systolic BP < 90, 12.5 mg Given 01/22/2018 9:21 AM BUSINESS TRANSFORMATION CONSULTANT 12.5 mg Given 01/21/2018 9:25 PM BUSINESS TRANSFORMATION CONSULTANT 02/02/2018 8:30 AM BUSINESS TRANSFORMATION CONSULTANT 12.5 mg metoprolol tartrate (LOPRESSOR) tablet Given 12.5 mg 12.5 mg, Oral, TWICE DAILY, First dose on Wed01/24/18 at 0900, Until Discontinued, Hold for heart rate < 60 bpm or systolic BP < 100, 12.5 mg Given 02/01/2018 8:32 PM BUSINESS TRANSFORMATION CONSULTANT 12.5 mg Given 02/01/2018 8:52 AM BUSINESS TRANSFORMATION CONSULTANT 01/23/2018 5:32 PM BUSINESS TRANSFORMATION CONSULTANT 150 mg 110 mL/hr micafungin (MYCAMINE) 150 mg in sodium Given - New chloride 0.9% (NS) 110 mL IVPB Bag 150 mg, Intravenous, 110 mL, Administer over 60 Minutes, at 110 mL/hr, EVERY 24 HOURS, First dose on 01/22/18 at 1630, Until Discontinued, PROTECT FROM LIGHT, 150 mg 110 mL/hr Given - New Bag 01/22/2018 6:23 PM BUSINESS TRANSFORMATION CONSULTANT naloxone (NARCAN) injection 0.08 mg 0.08 mg, Intravenous, NEEDED, Starting Wed01/28/18 at 1443, Until Wed02/02/18 at 1643, Respiratory Depression, -FOR RESPIRATORY RATE <7/MIN: Dilute one ampule naloxone 0.4 mg in 9 mL NS for injection (for a total of 10 mL of dilution). Inject 2 mL of diluted naloxone q 2 minutes until respiratory rate improves (RR >7/min) and/or drowsiness abates. Call physician. -IF PATIENT IS APNEIC: Give naloxone 0.4 mg q 2 minutes until respiratory rate improves (RR >7/min) and call Rapid Response Team. , PROTECT FROM LIGHT, 01/22/2018 5:00 PM BUSINESS TRANSFORMATION CONSULTANT 4 mg ondansetron (ZOFRAN) injection 4 mg Given 4 mg, Intravenous, ONCE, 1 dose, 01/22/18 at 1700 02/02/2018 12:00 PM BUSINESS TRANSFORMATION CONSULTANT 4 mg ondansetron (ZOFRAN) tablet 4 mg Given 4 mg, Oral, THREE TIMES DAILY WITH MEALS, First dose on Wed01/22/18 at 0800, Until Discontinued 4 mg Given 02/02/2018 8:29 AM BUSINESS TRANSFORMATION CONSULTANT 4 mg Given 02/01/2018 5:53 PM BUSINESS TRANSFORMATION CONSULTANT ONDANSETRON HCL (PF) 4 MG/2 ML IJ SOLN (Cabinet Override) NOW, 1 dose, 01/22/18 at 1700, Created by cabinet override, Created by cabinet override, 02/01/2018 5:14 AM BUSINESS TRANSFORMATION CONSULTANT 5 mg oxyCODONE (ROXICODONE, OXY-IR) tablet 5 Given mg 5 mg, Oral, EVERY 3 HOURS PRN, Starting Wed01/30/18 at 0948, Until Wed02/01/18 at 0835, Pain PO 5 mg Given 01/31/2018 6:13 PM BUSINESS TRANSFORMATION CONSULTANT 5 mg Given 01/31/2018 3:37 PM BUSINESS TRANSFORMATION CONSULTANT 02/02/2018 3:52 PM BUSINESS TRANSFORMATION CONSULTANT 5 mg oxyCODONE (ROXICODONE, OXY-IR) tablet Given 5-10 mg 5-10 mg, Oral, EVERY 3 HOURS PRN, Starting Wed02/01/18 at 0834, Until Wed02/02/18 at 1643, Pain PO 5 mg Given 02/02/2018 2:17 PM BUSINESS TRANSFORMATION CONSULTANT 5 mg Given 02/02/2018 12:00 PM BUSINESS TRANSFORMATION CONSULTANT 02/02/2018 8:28 AM BUSINESS TRANSFORMATION CONSULTANT [address] (PROTONIX) tablet 40 mg Given 40 mg, Oral, DAILY, First dose on Wed01/21/18 at 1945, Until Discontinued, Do not crush or chew tablet., 40 mg Given 02/01/2018 8:51 AM BUSINESS TRANSFORMATION CONSULTANT 40 mg Given 01/31/2018 8:05 AM BUSINESS TRANSFORMATION CONSULTANT 01/23/2018 12:16 PM BUSINESS TRANSFORMATION CONSULTANT 0.5 mcg/kg/min 55.3 mL/hr phenylephrine (BAKARI-SYNEPHRINE) 10 mg in Dose/Rate sodium chloride 0.9% (NS) 250 mL IV drip Change (std conc) 0.5-3 mcg/kg/min 73.7 kg (55.275-331.65 mL/hr, rounded to 55.3-331.7 mL/hr) 250 mL, at 55.3-331.7 mL/hr, Intravenous, TITRATE DIRECTED , Starting Wed01/23/18 at 0300, Until Wed01/24/18 at 0617, Initiate at 0.5 mcg/kg/min Titrate to keep: SBP > 90mmHg Std Conc=40 mcg/ml NOTE: For weight-based dosing, use patient dosing weight., 0.7 mcg/kg/min 77.4 mL/hr Dose/Rate Change 01/23/2018 12:03 PM BUSINESS TRANSFORMATION CONSULTANT 0.9 mcg/kg/min 99.5 mL/hr Given - New Bag 01/23/2018 9:54 AM BUSINESS TRANSFORMATION CONSULTANT 02/02/2018 2:11 PM BUSINESS TRANSFORMATION CONSULTANT 3.375 g 200 mL/hr piperacillin/tazobactam (ZOSYN) 3.375 g Given in sodium chloride 0.9% (NS) 100 mL IVPB (MB+) 3.375 g, Intravenous, at 200 mL/hr, EVERY 6 HOURS, First dose on Wed01/26/18 at 1400, Until Discontinued 3.375 g 200 mL/hr Given 02/02/2018 8:28 AM BUSINESS TRANSFORMATION CONSULTANT 3.375 g 200 mL/hr Given 02/02/2018 2:01 AM BUSINESS TRANSFORMATION CONSULTANT 01/26/2018 8:12 AM BUSINESS TRANSFORMATION CONSULTANT 4.5 g 200 mL/hr piperacillin/tazobactam (ZOSYN) 4.5 g in Given sodium chloride 0.9% (NS) 100 mL IVPB (MB+) 4.5 g, Intravenous, at 200 mL/hr, EVERY 6 HOURS, First dose on Wed01/22/18 at 1200, Until Discontinued 4.5 g 200 mL/hr Given 01/26/2018 1:40 AM BUSINESS TRANSFORMATION CONSULTANT 4.5 g 200 mL/hr Given 01/25/2018 8:19 PM BUSINESS TRANSFORMATION CONSULTANT 01/30/2018 7:23 AM BUSINESS TRANSFORMATION CONSULTANT 40 mEq potassium chloride oral solution 40-60 Given mEq 40-60 mEq, Per NG tube, NEEDED, Starting Wed01/23/18 at 0752, Until Wed02/02/18 at 1643, Other..., For potassium replacement, See admin instructions, [...] two hours after completion of appropriate replacement dose. Repeat this standing order x 2. Notify physician if serum potassium < 3.3 mmol/L after three replacements. Do NOT break or crush tablet, 40 mEq Given 01/23/2018 1:12 PM BUSINESS TRANSFORMATION CONSULTANT 01/22/2018 10:38 AM BUSINESS TRANSFORMATION CONSULTANT 40 mEq potassium chloride SR (K-DUR) tablet 40 Given mEq 40 mEq, Oral, ONCE, 1 dose, 01/22/18 at 0915, Do NOT break or crush tablet , 01/23/2018 7:29 AM BUSINESS TRANSFORMATION CONSULTANT 40 mEq potassium chloride SR (K-DUR) tablet 40 Given mEq 40 mEq, Oral, ONCE, 1 dose, 01/23/18 at 0645, Do NOT break or crush tablet , 02/01/2018 8:51 AM BUSINESS TRANSFORMATION CONSULTANT 40 mEq potassium chloride SR (K-DUR) tablet Given 40-60 mEq 40-60 mEq, Oral, NEEDED, Starting 01/23/18 at 0752, Until 02/02/18 at 1643, Other..., For potassium replacement, See admin instructions, [...] two hours after completion of appropriate replacement dose. Repeat this standing order x 2. Notify physician if serum potassium < 3.3 mmol/L after three replacements. Do NOT break or crush tablet, 40 mEq Given 01/31/2018 8:04 AM BUSINESS TRANSFORMATION CONSULTANT 40 mEq Given 01/29/2018 6:01 AM BUSINESS TRANSFORMATION CONSULTANT 01/23/2018 8:58 PM BUSINESS TRANSFORMATION CONSULTANT 2 tablets senna (SENOKOT) tablet 2 tablet Given 2 tablet, Oral, TWICE DAILY, First dose on Wed01/21/18 at 2100, Until Discontinued, Hold for loose stools, 2 tablets Given 01/23/2018 8:59 AM BUSINESS TRANSFORMATION CONSULTANT 2 tablets Given 01/22/2018 9:22 AM BUSINESS TRANSFORMATION CONSULTANT 01/23/2018 4:57 AM BUSINESS TRANSFORMATION CONSULTANT 500 mL 999 mL/hr sodium chloride 0.9 % infusion Given - New 500 mL, 500 mL, Intravenous, at 999 Bag mL/hr, BOLUS, 1 dose, 01/23/18 at 0415 01/28/2018 9:30 AM BUSINESS TRANSFORMATION CONSULTANT 20 mL/hr sodium chloride 0.9 % infusion Given - New 1,000 mL, Intravenous, at 20 mL/hr, Bag CONTINUOUS, Starting Wed01/28/18 at 0945, Until Wed01/28/18 at 1349, Pre-Op 01/26/2018 8:10 AM BUSINESS TRANSFORMATION CONSULTANT 1,000 mL SODIUM CHLORIDE 0.9 % IV SOLP (Cabinet Given - New Override) Bag NOW, 1 dose, 01/26/18 at 0800, Created by cabinet override, Created by cabinet override, 02/02/2018 3:54 PM BUSINESS TRANSFORMATION CONSULTANT 30 mL sodium chloride PF 0.9% flush 30 mL Given 30 mL, Intravenous, FLUSH THREE TIMES DAILY, First dose on 01/22/18 at 0000, Until Discontinued, Flush central, Midline or PICC line, with 5-10 mL every 8 hours using the push-pause (turbulent) method. Flush all lumens that do not have a continuous infusion. After obtaining blood specimen, flush catheter with 20 mL., 30 mL Given 02/02/2018 8:37 AM BUSINESS TRANSFORMATION CONSULTANT 30 mL Given 02/02/2018 12:41 AM BUSINESS TRANSFORMATION CONSULTANT 02/02/2018 8:29 AM BUSINESS TRANSFORMATION CONSULTANT 100 mg thiamine mononitrate tablet 100 mg Given 100 mg, Oral, DAILY, First dose on 01/22/18 at 0900, Until Discontinued 100 mg Given 02/01/2018 8:51 AM BUSINESS TRANSFORMATION CONSULTANT 100 mg Given 01/31/2018 8:05 AM BUSINESS TRANSFORMATION CONSULTANT 01/24/2018 8:09 AM BUSINESS TRANSFORMATION CONSULTANT 1 capsule tiotropium (SPIRIVA) capsule for inhaler Given 1 capsule 1 capsule, Inhalation, RT DAILY, First dose on 01/22/18 at 0600, Until Discontinued, When administered by RT, will be per RT policy. NOTES: Administer immediately after opening blister foil pouch. Each capsule is meant to deliver 2 inhalations (1 cap=2 inhalations)., 1 capsule Given 01/23/2018 9:58 AM BUSINESS TRANSFORMATION CONSULTANT 1 capsule Given 01/22/2018 5:33 AM BUSINESS TRANSFORMATION CONSULTANT 02/02/2018 5:44 AM BUSINESS TRANSFORMATION CONSULTANT 1 puff umeclidinium-vilanterol (ANORO ELLIPTA) Given 62.5-25 mcg/actuation inhaler 1 puff 1 puff, Inhalation, RT DAILY, First dose on Wed01/25/18 at 0600, Until Discontinued, When administered by RT, will be per RT policy., 1 puff Given 01/31/2018 5:43 AM BUSINESS TRANSFORMATION CONSULTANT 1 puff Given 01/30/2018 8:33 AM BUSINESS TRANSFORMATION CONSULTANT 01/26/2018 8:56 AM BUSINESS TRANSFORMATION CONSULTANT 900 mg valGANciclovir (VALCYTE) tablet 900 mg Given 900 mg, Oral, TWICE DAILY WITH MEALS, First dose on 01/22/18 at 0800, Until Discontinued, NURSING: Please educate patient and document: Give with food. Do NOT break or crush tablets (order suspension to give via tube) NOTE: If or wanting to become , do not touch broken tablets without gloves due to risk of defects., 900 mg Given 01/25/2018 4:15 PM BUSINESS TRANSFORMATION CONSULTANT 900 mg Given 01/25/2018 9:04 AM BUSINESS TRANSFORMATION CONSULTANT 01/23/2018 10:39 PM BUSINESS TRANSFORMATION CONSULTANT 1,250 mg 275 mL/hr vancomycin (VANCOCIN) 1,250 mg in Given - New dextrose 5% (D5W) IVPB Bag 1,250 mg, Intravenous, 275 mL, Administer over 60 Minutes, EVERY 12 HOURS, First dose on 01/22/18 at 0945, Until Discontinued, Note Pharmacokinetic Monitoring: Please record infusion start time (Action=Given) and stop time (Action=Completed) of dose when blood levels are drawn., 1,250 mg 275 mL/hr Given - New Bag 01/23/2018 10:15 AM BUSINESS TRANSFORMATION CONSULTANT 1,250 mg 275 mL/hr Given - New Bag 01/22/2018 9:45 PM BUSINESS TRANSFORMATION CONSULTANT 01/25/2018 3:28 AM BUSINESS TRANSFORMATION CONSULTANT 1,250 mg 275 mL/hr vancomycin (VANCOCIN) 1,250 mg in Given - New dextrose 5% (D5W) IVPB Bag 1,250 mg, Intravenous, 275 mL, Administer over 60 Minutes, EVERY 12 HOURS, First dose on Wed01/24/18 at 1600, Until Discontinued, Note Pharmacokinetic Monitoring: Please record infusion start time (Action=Given) and stop time (Action=Completed) of dose when blood levels are drawn., 1,250 mg 275 mL/hr Given - New Bag 01/24/2018 4:05 PM BUSINESS TRANSFORMATION CONSULTANT 02/02/2018 9:42 AM BUSINESS TRANSFORMATION CONSULTANT vitamin A & D topical ointment Given Topical, DAILY, First dose on 01/22/18 at 0900, Until Discontinued, Apply A&D ointment to wounds and cover with a Biatain foam. Dressing changes daily and PRN soiling per floor RN., Given 02/01/2018 8:55 AM BUSINESS TRANSFORMATION CONSULTANT Given 01/31/2018 8:22 AM BUSINESS TRANSFORMATION CONSULTANT 02/02/2018 8:29 AM BUSINESS TRANSFORMATION CONSULTANT 1 tablet vitamins, multi w/minerals tablet 1 Given tablet 1 tablet, Oral, DAILY, First dose on 01/22/18 at 0900, Until Discontinued 1 tablet Given 02/01/2018 8:51 AM BUSINESS TRANSFORMATION CONSULTANT 1 tablet Given 01/31/2018 8:05 AM BUSINESS TRANSFORMATION CONSULTANT in this encounter
--- NOTE | 2018-03-30 14:09 | ED Respiratory ---
General Chief Complaint: Coughing up blood Stated Complaint: COUGHING BLOOD Nursing Triage Note: pt reports coughing up blood this am. pt was released from med on feb 21 2018 Source: patient, family Exam Limitations: no limitations (MURIEL KELLEY STUDENT) History of Present Illness Date Seen by Provider: Mar 30, 2018 Time Seen by Provider: 13:43 Initial Comments 62 y/o M presented with his for evaluation due to coughing up blood that started this morning at about 8:30 and has continued when he has had deep coughs throughout the day today. He was recently discharged from following a 4 months stay for loculated emphyema. While there, he went into cardiac arrest twice and was placed on a ventilator. He was discharged on 02/21/18 and had his chest tube out on 03/03/18. He has had a persistent cough since getting his chest tube removed. He currently is taking cresemba for the fungal lung infection; is still watching a single spot on his right lung. His cough is worse upon waking in the mornings and is productive of green mucus. He stated that he thought he had a cold but was concerned since he coughed up blood today. This is the first time that he has coughed up blood. He restarted xarelto on Wednesday following about a month off of blood thinners. He also noted having a bloody nose this past weekend. He denies fever, chills, and sweats. He does have some nasal congestion, which is normal for him. Timing/Duration: this morning Severity: mild Prior Episodes/Possible Cause: no prior episodes Modifying Factors: Worse With Coughing Associated Symptoms: cough; No dizziness, No earache, No fever/chills, No lightheadedness, No muscle aches; nasal congestion, nasal drainage; No shortness of breath, No sinus infection, No sore throat, No wheezing; other ( hemoptysis) (MURIEL KELLEY STUDENT) Timing/Duration: this morning, intermittent Severity: mild Prior Episodes/Possible Cause: no prior episodes Modifying Factors: Worse With Coughing; Improves With Rest Associated Symptoms: cough, nasal congestion, nasal drainage; No shortness of breath (NANCY OLIVA MD) Allergies and Home Medications Allergies Coded Allergies: No Known Drug Allergies (Unverified , 03/17/12) Home Medications Albuterol Sulfate 1 Puff Puff, 2 PUFF INH Q4H PRN for SHORTNESS OF BREATH, ( Reported) Atorvastatin Calcium 10 Mg Tablet, 10 MG PO HS, (Reported) Budesonide/Formoterol Fumarate 10.2 Gm Hfa.aer.ad, 2 PUFF INH BID, (Reported) Carvedilol 12.5 Mg Tablet, 12.5 MG PO BID, (Reported) Diltiazem HCl 240 Mg Cap.er.24h, 240 MG PO DAILY, (Reported) Enalapril Maleate 20 Mg Tablet, 20 MG PO DAILY, (Reported) Fluticasone Propionate 9.9 Ml [place]el.susp, 2 SPRAY NS DAILY PRN for ALLERGIES, ( Reported) Loratadine 10 Mg Tablet, 10 MG PO DAILY PRN for ALLERGIES, (Reported) Naproxen Sodium 220 Mg Tablet, 220 MG PO Q8H PRN for PAIN-MILD, (Reported) Rivaroxaban 20 Mg Tablet, 20 MG PO HS, (Reported) Tiotropium Dickens 1 Inh Aerp, 1 CAP INH DAILY, (Reported) Patient Home Medication List Home Medication List Reviewed: Yes (MURIEL KELLEY STUDENT) Home Medication List Reviewed: Yes (NANCY OLIVA MD) Review of Systems Review of Systems Constitutional: No chills, No dizziness, No fever, No weakness EENTM: epistaxis (over the weekend), nose congestion; No ear pain, No hoarseness, No throat swelling Respiratory: cough (productive); No dyspnea on exertion; hemoptysis (small amounts with deep coughs since about 8:30 this morning); No orthopnea, No short of breath, No wheezing Cardiovascular: No chest pain, No edema, No palpitations Gastrointestinal: No abdominal pain, No constipation, No diarrhea, No melena, No nausea, No vomiting Genitourinary: No decreased output, No frequency, No incontinence Musculoskeletal: No joint pain, No muscle stiffness, No muscle weakness Skin: No change in color, No rash Psychiatric/Neurological: Denies Headache, Denies Weakness Hematologic/Lymphatic: Anemia (received transfusion when at [facility]) (MURIEL KELLEY STUDENT) All Other Systems Reviewed Negative Unless Noted: Yes (NANCY OLIVA MD) Past Ebzqyzv-Dxxyjr-Vjhmyz Hx Past Med/Social Hx: Reviewed Nursing Past Med/Soc Hx (NANCY OLIVA MD) Patient Social History Alcohol Use: Denies Use Recreational Drug Use: No Smoking Status: Former Smoker Type Used: Cigarettes Former Smoker, Quit: Nov 17, 2017 Recent Foreign Travel: No Contact w/Someone Who Travel: No Recent Infectious Disease Expo: No Recent Hopitalizations: Yes (D/[facility] from on 02/21/18) Physical Abuse: No Sexual Abuse: No (MURIEL KELLEY STUDENT) Immunizations Up To Date Tetanus Booster (TDap): Unknown PED Vaccines UTD: Yes Date of Pneumonia Vaccine: Oct 20, 2011 Date of Influenza Vaccine: Mar 20, 2012 (MURIEL KELLEY) Seasonal Allergies Seasonal Allergies: No (MURIEL KELLEY) Past Medical History Surgeries: Yes Lobectomy Respiratory: Yes (Tobaccoism) Pneumonia, COPD Cardiac: Yes (cardiac mass versus thrombus. STENTS, ABLATION) Atrial Fibrillation, Coronary Artery Disease, High Cholesterol, Hypertension Neurological: No Reproductive Disorders: No Genitourinary: No Gastrointestinal: No Musculoskeletal: Yes Arthritis Endocrine: No HEENT: No Cancer: No Psychosocial: No Integumentary: No Blood Disorders: No (MURIEL KELLEY STUDENT) Family Medical History Reviewed Nursing Family Hx (MURIEL KELLEY) Reviewed Nursing Family Hx (NANCY OLIVA MD) Asthma 19 MOTHER Cancer of extrahepatic bile ducts 19 FATHER Diabetes mellitus G8 SISTER FH: COPD (chronic obstructive pulmonary disease) 19 MOTHER Heart Disease, Cancer (MURIEL KELLEY) Physical Exam Vital Signs - First Documented 03/30/18 13:00 Temp 97.0 Pulse 99 Resp 20 B/P (MAP) 136/88 (104) Pulse Ox 96 (NANCY OLIVA MD) Capillary Refill : Less Than 3 Seconds (MURIEL KELLEY STUDENT) Height: 6'4.00" Weight: 154lbs. 2.0oz. 69.769941yh; 23.9 BMI Method:Stated General Appearance: WD/WN, no apparent distress Eyes: Bilateral Eye Normal Inspection, Bilateral Eye PERRL, Bilateral Eye EOMI HEENT: PERRL/EOMI, TMs normal, pharynx normal, other (dried blood in bilateral nares) Neck: non-tender, full range of motion, supple, normal inspection Respiratory: chest non-tender, lungs clear, normal breath sounds, no respiratory distress, no accessory muscle use Cardiovascular: regular rate, rhythm, no edema, no murmur Gastrointestinal: normal bowel sounds, non tender, soft Extremities: normal range of motion, non-tender, normal inspection, no pedal edema, no calf tenderness Neurologic/Psychiatric: no motor/sensory deficits, alert, normal mood/affect, oriented x 3 Skin: normal color, warm/dry (MURIEL KELLEY STUDENT) General Appearance: WD/WN, no apparent distress HEENT: PERRL/EOMI, pharynx normal, other (dried blood in bilateral nares with right greater than left) Neck: full range of motion, supple Respiratory: lungs clear, normal breath sounds Cardiovascular: regular rate, rhythm, no edema, no murmur Gastrointestinal: non tender, soft Extremities: non-tender, normal inspection, no pedal edema Neurologic/Psychiatric: no motor/sensory deficits, alert, normal mood/affect, oriented x 3 Skin: normal color, warm/dry (NANCY OLIVA MD) Procedures/Interventions Date of ETT Placement: Nov 13, 2017 Time of ETT Placement: 0810 (MURIEL KELLEY STUDENT) Progress/Results/Core Measures Suspected Sepsis Recent Fever Within 48 Hours: No Infection Criteria Present: None New/Unexplained Altered Menta: No Sepsis Screen: No Definite Risk SIRS Temperature:97.0 Pulse: 99 Respiratory Rate: 20 Laboratory Tests 03/30/18 13:27: White Blood Count 13.5H Blood Pressure 136 /88 Mean: 104 Laboratory Tests 03/30/18 13:27: Creatinine 0.49L, INR Comment 1.6H, Platelet Count 411H, Total Bilirubin 0.2 (MURIEL KELLEY STUDENT) Results/Orders Lab Results Laboratory Tests Test 03/30/18 13:27 03/30/18 16:01 Range/Units White Blood Count 13.5 H 4.3-11.0 10^3/uL Red Blood Count 3.28 L 4.35-5.85 10^6/uL Hemoglobin 10.6 L 13.3-17.7 G/DL Hematocrit 34 L 40-54 % Mean Corpuscular Volume 104 H 80-99 FL Mean Corpuscular Hemoglobin 32 25-34 PG Mean Corpuscular Hemoglobin Concent 31 L 32-36 G/DL Red Cell Distribution Width 18.2 H 10.0-14.5 % Platelet Count 411 H 130-400 10^3/uL Mean Platelet Volume 9.6 7.4-10.4 FL Neutrophils (%) (Auto) 80 H 42-75 % Lymphocytes (%) (Auto) 11 L 12-44 % Monocytes (%) (Auto) 8 0-12 % Eosinophils (%) (Auto) 1 0-10 % Basophils (%) (Auto) 0 0-10 % Neutrophils # (Auto) 10.9 H 1.8-7.8 X 10^3 Lymphocytes # (Auto) 1.5 1.0-4.0 X 10^3 Monocytes # (Auto) 1.0 0.0-1.0 X 10^3 Eosinophils # (Auto) 0.1 0.0-0.3 10^3/uL Basophils # (Auto) 0.0 0.0-0.1 10^3/uL Prothrombin Time 19.3 H 12.2-14.7 SEC INR Comment 1.6 H 0.8-1.4 Activated Partial Thromboplast Time 41 H 24-35 SEC Sodium Level 142 135-145 MMOL/L Potassium Level 2.7 L 3.6-5.0 MMOL/L Chloride Level 119 H 98-107 MMOL/L Carbon Dioxide Level 15 L 21-32 MMOL/L Anion Gap 8 5-14 MMOL/L Blood Urea Nitrogen 6 L 7-18 MG/DL Creatinine 0.49 L 0.60-1.30 MG/DL Estimat Glomerular Filtration Rate > 60 BUN/Creatinine Ratio 12 Glucose Level 64 L 70-105 MG/DL Calcium Level 5.9 *L 8.5-10.1 MG/DL Corrected Calcium 7.6 L 8.5-10.1 MG/DL Total Bilirubin 0.2 0.1-1.0 MG/DL Aspartate Amino Transf (AST/SGOT) 19 5-34 U/L Alanine Aminotransferase (ALT/SGPT) 7 0-55 U/L Alkaline Phosphatase 77 40-136 U/L C-Reactive Protein High Sensitivity 1.56 H 0.00-0.50 MG/DL Total Protein 4.5 L 6.4-8.2 GM/DL Albumin 1.9 L 3.2-4.5 GM/DL Digoxin Level 0.41 L 0.80-2.00 NG/ML (NANCY OLIAV MD) My Orders Orders - NANCY OLIVA MD Cbc With Automated Diff (03/30/18 14:01) Comprehensive Metabolic Panel (03/30/18 14:01) Hs C Reactive Protein (03/30/18 14:01) Protime With Inr (03/30/18 14:01) Partial Thromboplastin Time (03/30/18 14:01) Chest Pa/Lat (2 View) (03/30/18 14:01) Saline Lock/Iv-Start (03/30/18 14:01) Ekg Tracing (03/30/18 14:47) Calcium Gluconate 10% Inj (Calcium Glu (03/30/18 15:00) Potassium Chloride (Tablet) (Klor Con Ta (03/30/18 15:00) Para Thryoid Hormone Intact (03/30/18 15:36) Ionized Calcium (03/30/18 15:36) Digoxin (03/30/18 15:36) Calcium Gluconate 10% Inj (Calcium Glu (03/30/18 15:45) Calcium Gluconate 10% Inj (Calcium Glu (03/30/18 16:00) (NANCY OLIVA MD) Medications Given in ED Current Medications Medications Dose Ordered Sig/Lorna Route Start Time Stop Time Status Last Admin Dose Admin Calcium Gluconate 4.65 meq/Sodium Chloride 60 ml @ 240 mls/hr ONCE ONCE IV 03/30/18 15:00 03/30/18 15:58 DC 03/30/18 15:02 240 MLS/HR Calcium Gluconate 4.65 meq/Sodium Chloride 60 ml @ 240 mls/hr ONCE ONCE IV 03/30/18 16:00 03/30/18 16:14 DC 03/30/18 16:11 240 MLS/HR Potassium Chloride 40 meq ONCE ONCE PO 03/30/18 15:00 03/30/18 15:01 DC 03/30/18 15:02 40 MEQ (NANCY OLIVA MD) Vital Signs/I&O 03/30/18 13:00 Temp 97.0 Pulse 99 Resp 20 B/P (MAP) 136/88 (104) Pulse Ox 96 (NANCY OLIVA MD) Vital Signs/I&O Capillary Refill : Less Than 3 Seconds (MURIEL KELLEY STUDENT) Blood Pressure Mean: 104 Progress Note : Time: 13:45 Progress Note CBC, CMP, CXR. Monitor patient. 14:50 Labs revealed hypokalemia and hypocalcemia. EKG obtained showing sinus rhythm. (MURIEL KELLEY STUDENT) Progress Note : Progress Note I have seen and evaluated the patient and agree with above except as indicated. I have directed the plan of care. Patient is here with coughing up blood this morning. Apparently this happened twice. Small amount but mixed with mucus. Does admit to the nose bleeds recently and has started recently on Xarelto. Also has recent upper respiratory symptoms including sinus congestion and cough. Did have prolonged stay here and at [facility] for pneumonia and what sounds to be empyema. Recently had a chest tube removed. He is on antifungal for continued lung infection. 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 And his evaluation he was found to be hypokalemic and hypocalcemic. These were replaced. I discussed the case with Dr. Gunter. He recommends additional nutrition supplements which the patient is on but will continue. We did send parathyroid hormone labs as well as ionized calcium which Dr. Gunter will follow. Patient did have 40 Levaquin once of potassium given as well as 2 amp of calcium gluconate. Dr. Gunter will see him tomorrow at 10 a.m. Patient really wants to go home and does not want to stay at [facility] after his protracted previous hospitalizations. He agrees to see Dr. Gunter. Discharged home with return precautions. Patient verbalize understanding instructions and agreement with plan. (NANCY OLIVA MD) ECG Initial ECG Impression Date: Mar 30, 2018 Initial ECG Impression Time: 14:51 Initial ECG Rate: 94 Initial ECG Rhythm: Normal Sinus Initial ECG Intervals: Normal Comment Normal sinus rhythm. Normal axis. No evidence of STEMI. Comparable study to 02/2013. Interpreted by Dr. Oliva. (MURIEL KELLEY STUDENT) Diagnostic Imaging Diagonstic Imaging: Xray Plain Films/CT/US/NM/MRI: chest Comments [facility] [place] [place] NAME: NANCY TRUJILLO [facility] REC#: [id number] PT STATUS: REG ER : 1955 PHYSICIAN: NANCY OLIVA MD ADMIT DATE: 03/30/18/ER Draft Date of Exam:03/30/18 CHEST PA/LAT (2 VIEW) INDICATION: Coughing up blood. TIME OF EXAM: 2:23 PM CORRELATION is made with prior chest radiograph from 11/13/2017. FINDINGS: There continues to be some parenchymal airspace consolidation in the right upper lobe. The degree of involvement in the right upper lobe appears to be improved however when compared with prior exam. Lungs are hyperinflated consistent with COPD. No effusion is identified. There is no pneumothorax. There is minimal density in the left upper lobe indeterminate and followup would be recommended. IMPRESSION: Right upper lobe airspace consolidation shows mild improvement when compared with prior chest radiograph from 11/13/2017. Dictated on workstation # [id number] Dict: 03/30/18 1432 Trans: 03/30/18 1442 [facility] [id number] Interpreted by: DEMSOND ROBLES MD Electronically signed by: Time of Consult: 14:23 (MURIEL KELLEY STUDENT) Reviewed: Reviewed by Me (NANCY OLIVA MD) Departure Impression Primary Impression: Pneumonia of right lung due to infectious organism Qualified Codes: J18.1 - Lobar pneumonia, unspecified organism Additional Impressions: Hypocalcemia Hypokalemia Hemoptysis Disposition: 01 HOME, SELF-CARE Condition: Stable Departure-Patient Inst. Decision time for Depature: 16:30 (NANCY OLIVA MD) Referrals: OTHER,UNLISTED (PCP) Primary Care Physician FREDRICK GUNTER DO Patient Instructions: Hypocalcemia (DC), Hypokalemia (DC), Pneumonia, Adult (DC ) Add. Discharge Instructions: All discharge instructions reviewed with patient and/or family. Voiced understanding. You should humidify the air in your room especially at night to help prevent nosebleed. Return for increased coughing up blood or persistent bloody cough. Follow-up with Dr. Gunter tomorrow at 10 a.m. on the second floor of the hospital in the pulmonology clinic. Continue your potassium supplements as previously ordered. You should continue the protein supplements and consider supplement with calcium with vitamin D. Return for worse pain, fever, vomiting , weakness, breathing problems or other concerns as needed. MURIEL KELLEY Mar 30, 2018 14:09 NANCY OLIVA MD Mar 30, 2018 16:28
--- OUTSIDE RECORDS SUMMARY | 2018-03-30 14:10 | XMS REPORT | Encounter Summary ---
Author Author [facility] Organization [facility] Address Unknown Phone Unavailable Care Team Providers Care Sales Administration Manager Name Role Phone SebMai Unavailable Unavailable Samir Lopez MD Unavailable Unavailable Samara Lugo RN Unavailable Unavailable Flavio Jackson MD PCP Reason for Visit * Auth/Cert Referred By Contact Referred To Contact Status Reason Specialty Diagnoses / Procedures Diagnoses Pneumonia Loculated pleural effusion PNEUMONIA Encounter Details Care Team Description Date Type Department Mohan Ayala MD [address] [facility] [address] [place] [address] THORACOSCOPY, DEBRIDEMENT AND DECORTICATION OF RIGHT LUNG 01/28/2018 Surgery Cardiovascular Operating Room [address] [place] [id number] Social History Date Tobacco Use Types [...] Taken Vital Sign Reading 02/02/2018 11:30 AM NETWORK SECURITY ENGINEER Blood Pressure 122/74 02/02/2018 11:30 AM NETWORK SECURITY ENGINEER Pulse 94 02/02/2018 11:30 AM NETWORK SECURITY ENGINEER Temperature 36.4 C (97.5 F) - Respiratory Rate - 02/02/2018 11:30 AM NETWORK SECURITY ENGINEER Oxygen Saturation 97% - Inhaled Oxygen - Concentration 02/01/2018 7:00 AM NETWORK SECURITY ENGINEER Weight 74.5 kg (164 lb 3.2 oz) 02/01/2018 7:00 AM NETWORK SECURITY ENGINEER Height 182.9 cm (6' 0.01") 02/01/2018 7:00 AM NETWORK SECURITY ENGINEER Body Mass Index 22.26 in this encounter [...] tab mouth daily. 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 Procedures Comments Procedure Name Priority Date/Time Associated Diagnosis CHEST SINGLE VIEW Routine 02/02/2018 6:24 AM NETWORK SECURITY ENGINEER CBC AND DIFF Routine 02/02/2018 4:39 AM NETWORK SECURITY ENGINEER PHOSPHORUS Routine 02/02/2018 4:39 AM NETWORK SECURITY ENGINEER MAGNESIUM Routine 02/02/2018 4:39 AM NETWORK SECURITY ENGINEER BASIC METABOLIC PANEL Routine 02/02/2018 4:39 AM NETWORK SECURITY ENGINEER CHEST SINGLE VIEW Routine 02/01/2018 6:08 AM NETWORK SECURITY ENGINEER CBC AND DIFF Routine 02/01/2018 5:18 AM NETWORK SECURITY ENGINEER PHOSPHORUS Routine 02/01/2018 5:18 AM NETWORK SECURITY ENGINEER MAGNESIUM Routine 02/01/2018 5:18 AM NETWORK SECURITY ENGINEER COMPREHENSIVE METABOLIC Routine 02/01/2018 PANEL 5:18 AM NETWORK SECURITY ENGINEER CT CHEST WO CONTRAST Routine 01/31/2018 5:58 PM NETWORK SECURITY ENGINEER CHEST SINGLE VIEW Routine 01/31/2018 6:13 AM NETWORK SECURITY ENGINEER CBC AND DIFF Routine 01/31/2018 3:30 AM NETWORK SECURITY ENGINEER PHOSPHORUS Routine 01/31/2018 3:30 AM NETWORK SECURITY ENGINEER MAGNESIUM Routine 01/31/2018 3:30 AM NETWORK SECURITY ENGINEER BASIC METABOLIC PANEL Routine 01/31/2018 3:30 AM NETWORK SECURITY ENGINEER CHEST SINGLE VIEW Routine 01/30/2018 6:09 AM NETWORK SECURITY ENGINEER CBC AND DIFF Routine 01/30/2018 3:00 AM NETWORK SECURITY ENGINEER PHOSPHORUS Routine 01/30/2018 3:00 AM NETWORK SECURITY ENGINEER MAGNESIUM Routine 01/30/2018 3:00 AM NETWORK SECURITY ENGINEER DIGOXIN LEVEL Routine 01/30/2018 3:00 AM NETWORK SECURITY ENGINEER COMPREHENSIVE METABOLIC Routine 01/30/2018 PANEL 3:00 AM NETWORK SECURITY ENGINEER CBC AND DIFF STAT 01/29/2018 7:30 AM NETWORK SECURITY ENGINEER PHOSPHORUS Routine 01/29/2018 4:51 AM NETWORK SECURITY ENGINEER MAGNESIUM Routine 01/29/2018 4:51 AM NETWORK SECURITY ENGINEER BASIC METABOLIC PANEL Routine 01/29/2018 4:51 AM NETWORK SECURITY ENGINEER CHEST SINGLE VIEW Routine 01/29/2018 4:26 AM NETWORK SECURITY ENGINEER CHEST SINGLE VIEW ASHIA 01/28/2018 2:05 PM NETWORK SECURITY ENGINEER CULTURE-FUNGAL,OTHER STAT 01/28/2018 Loculated pleural 12:07 PM NETWORK SECURITY ENGINEER effusion GRAM STAIN STAT 01/28/2018 Loculated pleural 12:07 PM NETWORK SECURITY ENGINEER effusion CULTURE-TB (AFB) STAT 01/28/2018 Loculated pleural 12:07 PM NETWORK SECURITY ENGINEER effusion CULTURE-WOUND/TISSUE/FLUI STAT 01/28/2018 Loculated pleural D(AEROBIC 12:07 PM NETWORK SECURITY ENGINEER effusion ONLY)W/SENSITIVITY CULTURE-ANAEROBIC STAT 01/28/2018 Loculated pleural 12:07 PM NETWORK SECURITY ENGINEER effusion CHEST SINGLE VIEW Routine 01/28/2018 4:17 AM NETWORK SECURITY ENGINEER CBC AND DIFF Routine 01/28/2018 3:10 AM NETWORK SECURITY ENGINEER TYPE & CROSSMATCH Routine 01/28/2018 3:10 AM NETWORK SECURITY ENGINEER PHOSPHORUS Routine 01/28/2018 3:10 AM NETWORK SECURITY ENGINEER MAGNESIUM Routine 01/28/2018 3:10 AM NETWORK SECURITY ENGINEER DIGOXIN LEVEL Routine 01/28/2018 3:10 AM NETWORK SECURITY ENGINEER COMPREHENSIVE METABOLIC Routine 01/28/2018 PANEL 3:10 AM NETWORK SECURITY ENGINEER CHEST SINGLE VIEW ASHIA 01/27/2018 9:18 AM NETWORK SECURITY ENGINEER CBC AND DIFF Routine 01/27/2018 3:52 AM NETWORK SECURITY ENGINEER PHOSPHORUS Routine 01/27/2018 3:52 AM NETWORK SECURITY ENGINEER MAGNESIUM Routine 01/27/2018 3:52 AM NETWORK SECURITY ENGINEER DIGOXIN LEVEL Routine 01/27/2018 3:52 AM NETWORK SECURITY ENGINEER BASIC METABOLIC PANEL Routine 01/27/2018 3:52 AM NETWORK SECURITY ENGINEER BASIC METABOLIC PANEL Routine 01/26/2018 2:20 PM NETWORK SECURITY ENGINEER URINALYSIS, MICROSCOPIC STAT 01/26/2018 8:05 AM NETWORK SECURITY ENGINEER URINALYSIS DIPSTICK STAT 01/26/2018 8:05 AM NETWORK SECURITY ENGINEER UREA NITROGEN-URINE STAT 01/26/2018 RANDOM 8:05 AM NETWORK SECURITY ENGINEER SODIUM-URINE RANDOM STAT 01/26/2018 8:05 AM NETWORK SECURITY ENGINEER CREATININE-URINE RANDOM STAT 01/26/2018 8:05 AM NETWORK SECURITY ENGINEER EOSINOPHIL STAIN Specimen 01/26/2018 in Lab 8:05 AM NETWORK SECURITY ENGINEER CBC AND DIFF Routine 01/26/2018 4:30 AM NETWORK SECURITY ENGINEER PHOSPHORUS Routine 01/26/2018 4:30 AM NETWORK SECURITY ENGINEER MAGNESIUM Routine 01/26/2018 4:30 AM NETWORK SECURITY ENGINEER COMPREHENSIVE METABOLIC Routine 01/26/2018 PANEL 4:30 AM NETWORK SECURITY ENGINEER CHEST SINGLE VIEW Routine 01/26/2018 4:18 AM NETWORK SECURITY ENGINEER CT CHEST WO CONTRAST Routine 01/25/2018 12:18 PM NETWORK SECURITY ENGINEER CHEST SINGLE VIEW Routine 01/25/2018 6:14 AM NETWORK SECURITY ENGINEER CBC AND DIFF Routine 01/25/2018 3:38 AM NETWORK SECURITY ENGINEER PHOSPHORUS Routine 01/25/2018 3:38 AM NETWORK SECURITY ENGINEER MAGNESIUM Routine 01/25/2018 3:38 AM NETWORK SECURITY ENGINEER BASIC METABOLIC PANEL Routine 01/25/2018 3:38 AM NETWORK SECURITY ENGINEER CBC AND DIFF Routine 01/24/2018 3:15 AM NETWORK SECURITY ENGINEER PHOSPHORUS Routine 01/24/2018 3:15 AM NETWORK SECURITY ENGINEER MAGNESIUM Routine 01/24/2018 3:15 AM NETWORK SECURITY ENGINEER COMPREHENSIVE METABOLIC Routine 01/24/2018 PANEL 3:15 AM NETWORK SECURITY ENGINEER CHEST SINGLE VIEW Routine 01/24/2018 2:10 AM NETWORK SECURITY ENGINEER VANCOMYCIN TROUGH Routine 01/23/2018 9:19 PM NETWORK SECURITY ENGINEER POTASSIUM Routine 01/23/2018 6:10 PM NETWORK SECURITY ENGINEER MAGNESIUM Routine 01/23/2018 6:10 PM NETWORK SECURITY ENGINEER POTASSIUM Routine 01/23/2018 11:30 AM NETWORK SECURITY ENGINEER MAGNESIUM Routine 01/23/2018 11:30 AM NETWORK SECURITY ENGINEER ECG 12-LEAD Routine 01/23/2018 10:35 AM NETWORK SECURITY ENGINEER CBC AND DIFF Routine 01/23/2018 3:40 AM NETWORK SECURITY ENGINEER PHOSPHORUS Routine 01/23/2018 3:40 AM NETWORK SECURITY ENGINEER MAGNESIUM Routine 01/23/2018 3:40 AM NETWORK SECURITY ENGINEER COMPREHENSIVE METABOLIC Routine 01/23/2018 PANEL 3:40 AM NETWORK SECURITY ENGINEER CHEST SINGLE VIEW ASHIA 01/23/2018 12:36 AM NETWORK SECURITY ENGINEER LDH-LACTATE DEHYDROGENASE Routine 01/23/2018 12:30 AM NETWORK SECURITY ENGINEER PLEURAL FLUID LIPASE Routine 01/22/2018 7:35 PM NETWORK SECURITY ENGINEER PLEURAL FLUID Routine 01/22/2018 TRIGLYCERIDES 7:35 PM NETWORK SECURITY ENGINEER PLEURAL FLUID TOTAL Routine 01/22/2018 PROTEIN 7:35 PM NETWORK SECURITY ENGINEER PLEURAL FLUID PH Routine 01/22/2018 7:35 PM NETWORK SECURITY ENGINEER PLEURAL FLUID LACTATE Routine 01/22/2018 DEHYDROGENASE 7:35 PM NETWORK SECURITY ENGINEER PLEURAL FLUID GLUCOSE Routine 01/22/2018 7:35 PM NETWORK SECURITY ENGINEER PLEURAL FLUID CHOLESTEROL Routine 01/22/2018 7:35 PM NETWORK SECURITY ENGINEER PLEURAL FLUID TOTAL Routine 01/22/2018 BILIRUBIN 7:35 PM NETWORK SECURITY ENGINEER PLEURAL FLUID AMYLASE Routine 01/22/2018 7:35 PM NETWORK SECURITY ENGINEER PLEURAL FLUID ALBUMIN Routine 01/22/2018 7:35 PM NETWORK SECURITY ENGINEER CULTURE-FUNGAL,OTHER Routine 01/22/2018 7:35 PM NETWORK SECURITY ENGINEER GRAM STAIN Routine 01/22/2018 7:35 PM NETWORK SECURITY ENGINEER CULTURE-TB (AFB) Routine 01/22/2018 7:35 PM NETWORK SECURITY ENGINEER CULTURE-WOUND/TISSUE/FLUI Routine 01/22/2018 D(AEROBIC 7:35 PM NETWORK SECURITY ENGINEER ONLY)W/SENSITIVITY CELL COUNT W/DIFF-FLUIDS Routine 01/22/2018 7:35 PM NETWORK SECURITY ENGINEER O2 SATURATION, CENTRAL Routine 01/22/2018 VENOUS 7:15 PM NETWORK SECURITY ENGINEER LACTIC ACID (BG - RAPID 01/22/2018 LACTATE) 7:15 PM NETWORK SECURITY ENGINEER CHEST SINGLE VIEW Routine 01/22/2018 6:57 PM NETWORK SECURITY ENGINEER LINE PLCMT 1V CXR STAT 01/22/2018 6:20 PM NETWORK SECURITY ENGINEER CHEST TUBE INSERTION Routine 01/22/2018 6:14 PM NETWORK SECURITY ENGINEER CHEST SINGLE VIEW STAT 01/22/2018 5:06 PM NETWORK SECURITY ENGINEER CHEST TUBE INSERTION Routine 01/22/2018 5:02 PM NETWORK SECURITY ENGINEER GRAM STAIN 01/22/2018 9:34 AM NETWORK SECURITY ENGINEER CBC AND DIFF Routine 01/22/2018 4:56 AM NETWORK SECURITY ENGINEER PHOSPHORUS Routine 01/22/2018 4:56 AM NETWORK SECURITY ENGINEER MAGNESIUM Routine 01/22/2018 4:56 AM NETWORK SECURITY ENGINEER COMPREHENSIVE METABOLIC Routine 01/22/2018 PANEL 4:56 AM NETWORK SECURITY ENGINEER BASIC METABOLIC PANEL Routine 01/21/2018 10:56 PM NETWORK SECURITY ENGINEER TELEMETRY STRIPS-SCAN 01/21/2018 12:00 AM NETWORK SECURITY ENGINEER in this encounter Results * CHEST SINGLE VIEW (02/02/2018 6:24 AM NETWORK SECURITY ENGINEER) Impressions Performed At 1. Similar diffuse right [...] Interface, Radiant Results - 02/02/2018 9:57 AM NETWORK SECURITY ENGINEER CHEST SINGLE VIEW INDICATION: chest tube COMPARISON [...] RAD RESULTS * PHOSPHORUS (02/02/2018 4:39 AM NETWORK SECURITY ENGINEER) Phosphorus 3.9Comment: NOTE NEW REFERENCE 2.0 - 4.5 MG/DL [facility] RANGES Specimen Blood Performing Organization Address [facility] Phone Number [facility] [address] [place] [address] * MAGNESIUM (02/02/2018 4:39 AM NETWORK SECURITY ENGINEER) Magnesium 1.7 1.6 - 2.6 mg/dL [facility] Specimen Blood Performing Organization Address [facility] Phone Number [facility] [address] [place] [address] * CBC AND DIFF (02/02/2018 4:39 AM NETWORK SECURITY ENGINEER) White Blood Cells 11.1 (H) 4.5 - [...] MAIN LAB Specimen Blood Performing Organization Address [facility] Phone Number [facility] [address] [place] [address] * BASIC METABOLIC PANEL (02/02/2018 4:39 AM NETWORK SECURITY ENGINEER) Sodium 140 137 - 147 MMOL/L [facility] [...] Blood Performing Organization Address City/State/Zipcode Phone Number [facility] [address] [place] [address] * CHEST SINGLE VIEW (02/01/2018 6:08 AM NETWORK SECURITY ENGINEER) Impressions Performed At 1. Persistent small partially [...] Interface, Radiant Results - 02/01/2018 5:33 PM NETWORK SECURITY ENGINEER CHEST SINGLE VIEW Clinical history: Chest tube [...] on 02/01/2018 11:01 AM. Performing Organization Address [facility] Phone Number [facility] RESULTS * PHOSPHORUS (02/01/2018 5:18 AM NETWORK SECURITY ENGINEER) Phosphorus 4.1Comment: NOTE NEW REFERENCE 2.0 - 4.5 MG/DL MAIN LAB RANGES Specimen Blood Performing Organization Address [facility] Phone Number [facility] [address] [place] [address] * MAGNESIUM (02/01/2018 5:18 AM NETWORK SECURITY ENGINEER) Magnesium 1.9 1.6 - 2.6 mg/dL [facility] MAIN [facility] Specimen Blood Performing Organization Address [facility] Phone Number [facility] [address] [place] [address] * COMPREHENSIVE METABOLIC PANEL (02/01/2018 5:18 AM NETWORK SECURITY ENGINEER) Sodium 138 137 - 147 MMOL/L [facility] [...] Organization Address City/State/Zipcode Phone Number MAIN LAB [address] [address] * CBC AND DIFF (02/01/2018 5:18 AM NETWORK SECURITY ENGINEER) White Blood Cells 10.1 4.5 - 11.0 [...] City/State/Zipcode Phone Number [facility] [address] [place] [address] * CT CHEST WO CONTRAST (01/31/2018 5:58 PM NETWORK SECURITY ENGINEER) Impressions Performed At 1. Significant decrease in [...] Interface, Radiant Results - 02/01/2018 8:18 AM NETWORK SECURITY ENGINEER CT Chest . Clinical Indication: Male, 62 [...] * CHEST SINGLE VIEW (01/31/2018 6:13 AM NETWORK SECURITY ENGINEER) Impressions Performed At 1.Two right chest tubes [...] Interface, Radiant Results - 01/31/2018 11:18 AM NETWORK SECURITY ENGINEER Procedure: CHEST SINGLE VIEW Clinical Indication: Chest [...] on 01/31/2018 9:31 AM. Performing Organization Address [facility] Phone Number RAD RESULTS * PHOSPHORUS (01/31/2018 3:30 AM NETWORK SECURITY ENGINEER) Phosphorus 4.2Comment: NOTE NEW REFERENCE 2.0 - 4.5 MG/DL [facility] RANGES Specimen Blood Performing Organization Address [facility] Phone Number [facility] [address] [place] [address] * MAGNESIUM (01/31/2018 3:30 AM NETWORK SECURITY ENGINEER) Magnesium 2.2 1.6 - 2.6 mg/dL MAIN LAB Specimen Blood Performing Organization Address [facility] Phone Number [facility] [address] [place] [address] * CBC AND DIFF (01/31/2018 3:30 AM NETWORK SECURITY ENGINEER) White Blood Cells 9.7 4.5 - 11.0 K/UL MAIN LAB RBC 2.43 (L) 4.4 - 5.5 M/UL MAIN LAB Hemoglobin 8.2 (L) 13.5 - 16.5 GM/DL [facility] Hematocrit 25.1 (L) 40 - 50 % [facility] MCV 103.3 (H) 80 - 100 FL [facility] MCH 33.6 26 - 34 PG MAIN LAB MCHC 32.5 32.0 - 36.0 G/DL MAIN LAB RDW 18.2 (H) 11 - [...] Basophil Count 0.00 0 - 0.20 K/UL MAIN LAB Specimen Blood Performing Organization Address [facility]ode Phone Number [facility] [address] [place] [address] * BASIC METABOLIC PANEL (01/31/2018 3:30 AM NETWORK SECURITY ENGINEER) Sodium 135 (L) 137 - 147 MMOL/L [facility] Potassium 3.8 3.5 - 5.1 MMOL/L [facility] Chloride 104 98 - 110 MMOL/L MAIN LAB CO2 27 21 - 30 MMOL/L [facility] Anion Gap 4 3 - 12 [facility] Glucose 111 (H) 70 - 100 MG/DL [facility] Blood Urea Nitrogen 13 7 - 25 MG/DL MAIN LAB Creatinine 1.36 (H) 0.4 - 1.24 MG/DL [facility] Calcium 8.0 (L) 8.5 - 10.6 MG/DL MAIN LAB eGFR Non 53 (L) >60 mL/min MAIN LAB Comment: The eGFR is not validated for use in drug dosing adjustments.Continue to use estimated creatinine clearance per dosing reference text.Please contact the Clinical Pharmacist for questions. eGFR >60 >60 mL/min [facility] Comment: The eGFR is not validated for use in drug dosing adjustments.Continue to use estimated creatinine clearance per dosing reference text.Please contact the Clinical Pharmacist for questions. Specimen Blood Performing Organization Address [facility]t Phone Number [facility] [address] [place] [address] * CHEST SINGLE VIEW (01/30/2018 6:09 AM NETWORK SECURITY ENGINEER) Impressions Performed At Worsening pulmonary space opacities [...] costophrenic angle is not included on the [id number]. No pneumothorax. Marked emphysema and scattered areas of scarring. Worsening of pulmonary airspace opacities in the right lower lung. Procedure Note Interface, Radiant Results - 01/30/2018 8:33 AM NETWORK SECURITY ENGINEER Procedure: CHEST SINGLE VIEW Clinical Indication: Chest tube in place. Comparison: Chest radiograph one day prior. Findings: Right PICC and 2 right thoracostomy tubes remain in place. The heart remains upper limits of normal in size without bony venous congestion. The right costophrenic angle is not included on the [id number]. No pneumothorax. Marked emphysema and scattered areas [...] RAD RESULTS * PHOSPHORUS (01/30/2018 3:00 AM NETWORK SECURITY ENGINEER) Phosphorus 3.8Comment: NOTE NEW REFERENCE 2.0 - 4.5 MG/DL [facility] RANGES Specimen Blood Performing Organization Address City/State/Zipcode Phone Number [facility] [address] [place] [address] * MAGNESIUM (01/30/2018 3:00 AM NETWORK SECURITY ENGINEER) Magnesium 1.9 1.6 - 2.6 mg/dL [facility] Specimen Blood Performing Organization Address [facility]/Zipcode Phone Number MAIN LAB [address] [place] [address] * COMPREHENSIVE METABOLIC PANEL (01/30/2018 3:00 AM NETWORK SECURITY ENGINEER) Sodium 138 137 - 147 MMOL/L [facility] [...] for questions. Specimen Blood Performing Organization Address City/[facility]/Zipcode Phone Number MAIN LAB [address] [place] [address] * CBC AND DIFF (01/30/2018 3:00 AM NETWORK SECURITY ENGINEER) White Blood Cells 12.8 (H) 4.5 - 11.0 K/UL [facility] RBC 2.82 (L) 4.4 - 5.5 M/UL [facility] Hemoglobin 9.6 (L) 13.5 - 16.5 GM/DL [facility] Hematocrit 29.2 (L) 40 - 50 % [facility] MCV 103.6 (H) 80 - 100 FL [facility] MCH 34.0 26 - 34 PG [facility] MCHC 32.8 32.0 - 36.0 G/DL [facility] RDW 18.1 (H) 11 - 15 % MAIN LAB Platelet Count 404 (H) 150 - 400 K/UL [facility] MPV 7.0 7 - 11 FL [facility] Neutrophils 90 (H) 41 - 77 % MAIN LAB Lymphocytes 8 (L) 24 - 44 % [facility] Monocytes 1 (L) 4 - 12 % [facility] Eosinophils 0 0 - 5 % [facility] Basophils 1 0 - 2 % [facility] Absolute Neutrophil Count 11.60 (H) 1.8 - 7.0 K/UL [facility] Absolute Lymph Count 1.00 1.0 - 4.8 K/UL [facility] Absolute Monocyte Count 0.10 0 - 0.80 K/UL [facility] Absolute Eosinophil Count 0.00 0 - 0.45 K/UL [facility] Absolute Basophil Count 0.10 0 - 0.20 K/UL [facility] Specimen Blood Performing Organization Address [facility] Phone Number [facility] [address] [place] [address] * DIGOXIN LEVEL (01/30/2018 3:00 AM NETWORK SECURITY ENGINEER) Digoxin 0.9 0.5 - 1.0 NG/ML [facility] Specimen Blood Performing Organization Address [facility] Phone Number [facility] [address] [place] [address] * CBC AND DIFF (01/29/2018 7:30 AM NETWORK SECURITY ENGINEER) White Blood Cells 13.4 (H) 4.5 - 11.0 K/UL [facility] RBC 2.55 (L) 4.4 - 5.5 M/UL [facility] Hemoglobin 8.6 (L) 13.5 - 16.5 GM/DL [facility] Hematocrit 26.8 (L) 40 - 50 % [facility] MCV 104.8 (H) 80 - 100 FL [facility] MCH 33.7 26 - 34 PG [facility] MCHC 32.1 32.0 - 36.0 G/DL [facility] RDW 18.7 (H) 11 - [...] MAIN LAB Specimen Blood Performing Organization Address [facility] Phone Number MAIN LAB [address] [place] [address] * PHOSPHORUS (01/29/2018 4:51 AM NETWORK SECURITY ENGINEER) Phosphorus 4.5Comment: NOTE NEW REFERENCE 2.0 - 4.5 MG/DL [facility]IN [facility] RANGES Specimen Blood Performing Organization Address [facility] Phone Number MAIN LAB [address] [place] [address] * MAGNESIUM (01/29/2018 4:51 AM NETWORK SECURITY ENGINEER) Magnesium 2.1 1.6 - 2.6 mg/dL MAIN LAB Specimen Blood Performing Organization Address [facility] Phone Number MAIN LAB [address] [place] [address] * BASIC METABOLIC PANEL (01/29/2018 4:51 AM NETWORK SECURITY ENGINEER) Sodium 139 137 - 147 MMOL/L [facility] [...] Address City/State/Zipcode Phone Number [facility] [address] [place] [address] * CHEST SINGLE VIEW (01/29/2018 4:26 AM NETWORK SECURITY ENGINEER) Impressions Performed At 1.Persistent trace right pneumothorax [...] Interface, Radiant Results - 01/31/2018 3:01 PM NETWORK SECURITY ENGINEER Procedure: CHEST SINGLE VIEW Clinical Indication: Chest [...] * CHEST SINGLE VIEW (01/28/2018 2:05 PM NETWORK SECURITY ENGINEER) Impressions Performed At Interval removal of right [...] Interface, Radiant Results - 01/28/2018 2:37 PM NETWORK SECURITY ENGINEER Single view of the chest Clinical history: [...] on 01/28/2018 2:28 PM. Performing Organization Address [facility] Phone Number RAD RESULTS * CULTURE-FUNGAL,OTHER (01/28/2018 12:07 PM NETWORK SECURITY ENGINEER) Battery Name FUNGUS CULTURE MAIN LAB Specimen Description TISSUE MAIN LAB RIGHT LOWER LOBE PLEURAL RIND Special Requests NONE MAIN LAB Culture NO GROWTH OF FUNGUS AT 4 WEEKS MAIN LAB Report Status FINAL MAIN LAB 02/28/2018 Specimen Tissue - Tissue Performing Organization Address [facility] Phone Number MA[facility] [address] [place] [address] * GRAM STAIN (01/28/2018 12:07 PM NETWORK SECURITY ENGINEER) Battery Name GRAM STAIN MAIN LAB Specimen Description TISSUE MAIN LAB RIGHT LOWER LOBE PLEURAL RIND Special Requests NONE MAIN LAB Gram Stain FEW MAIN LAB NEUTROPHILS NO ORGANISMS SEEN Report Status FINAL MAIN LAB 01/28/2018 Specimen Tissue - Tissue Performing Organization Address [facility] Phone Number MA[facility] [address] [place] [address] * CULTURE-TB (AFB) (01/28/2018 12:07 PM NETWORK SECURITY ENGINEER) Battery Name AFB CULTURE MAIN LAB Specimen Description TISSUE MAIN LAB RIGHT LOWER LOBE PLEURAL RIND Special Requests NONE MAIN LAB Culture NO GROWTH OF MYCOBACTERIA AT 6 MAIN LAB WEEKS Report Status FINAL MAIN LAB 03/21/2018 Specimen Tissue - Tissue Performing Organization Address [facility] Phone Number MAIN LAB [address] [place] [address] * CULTURE-WOUND/TISSUE/FLUID(AEROBIC ONLY)W/SENSITIVITY (01/28/2018 12:07 PM NETWORK SECURITY ENGINEER ) Battery Name ROUTINE CULTURE MAIN LAB Specimen Description TISSUE MAIN LAB RIGHT LOWER LOBE PLEURAL RIND Special Requests NONE MAIN LAB Direct Gram Stain FEW MAIN LAB NEUTROPHILS NO ORGANISMS SEEN Culture NO GROWTH 5 DAYS [facility]IN [facility] Report Status FINAL MAIN LAB 02/02/2018 Specimen Tissue - Tissue Performing Organization Address [facility] Phone Number MAIN LAB [address] [place] [address] * CULTURE-ANAEROBIC (01/28/2018 12:07 PM NETWORK SECURITY ENGINEER) Battery Name ANAEROBE CULTURE MAIN LAB Specimen Description TISSUE MAIN LAB RIGHT LOWER LOBE PLEURAL RIND Special Requests NONE [facility] MAIN [facility] Culture NO ANAEROBES ISOLATED MAIN LAB Report Status FINAL MAIN LAB 02/02/2018 Specimen Tissue - Tissue Performing Organization Address [facility] Phone Number MAIN LAB [address] [place] [address] * CHEST SINGLE VIEW (01/28/2018 4:17 AM NETWORK SECURITY ENGINEER) Impressions Performed At Stable appearance of the [...] Interface, Radiant Results - 01/28/2018 8:40 AM NETWORK SECURITY ENGINEER CHEST SINGLE VIEW Clinical history: chest tube. [...] on 01/28/2018 8:34 AM. Performing Organization Address [facility] Phone Number [facility] RAD RESULTS * PHOSPHORUS (01/28/2018 3:10 AM NETWORK SECURITY ENGINEER) Phosphorus 5.4 (H)Comment: NOTE NEW 2.0 - 4.5 MG/DL [facility] REFERENCE RANGES Specimen Blood Performing Organization Address [facility] Phone Number MAIN LAB [address] [place] [address] * MAGNESIUM (01/28/2018 3:10 AM NETWORK SECURITY ENGINEER) Magnesium 2.3 1.6 - 2.6 mg/dL [facility] Specimen Blood Performing Organization Address [facility] Phone Number MAIN LAB [address] [place] [address] * COMPREHENSIVE METABOLIC PANEL (01/28/2018 3:10 AM NETWORK SECURITY ENGINEER) Sodium 137 137 - 147 MMOL/L KU [...] for questions. Specimen Blood Performing Organization Address [facility] Cent[facility]ode Phone Number [facility] MAIN [facility] [address] [place] [address] * CBC AND DIFF (01/28/2018 3:10 AM NETWORK SECURITY ENGINEER) White Blood Cells 15.7 (H) 4.5 - 11.0 K/UL [facility] RBC 2.58 (L) 4.4 - 5.5 M/UL [facility] Hemoglobin 8.9 (L) 13.5 - 16.5 GM/DL [facility] Hematocrit 26.7 (L) 40 - 50 % [facility] MCV 103.7 (H) 80 - 100 FL [facility] MCH 34.4 (H) 26 - 34 PG [facility] MCHC 33.2 32.0 - 36.0 G/DL [facility] RDW 18.9 (H) 11 - 15 % [facility] Platelet Count 395 150 - 400 K/UL [facility] MPV 6.6 (L) 7 - 11 FL [facility] Neutrophils 87 (H) 41 - 77 % [facility] Lymphocytes 5 (L) 24 - 44 % [facility] Monocytes 5 4 - 12 % [facility] Eosinophils 0 0 - 5 % [facility] Basophils 3 (H) 0 - 2 % [facility] Absolute Neutrophil Count 13.70 (H) 1.8 - 7.0 K/UL [facility] Absolute Lymph Count 0.70 (L) 1.0 - 4.8 K/UL [facility] Absolute Monocyte Count 0.70 0 - 0.80 K/UL [facility] Absolute Eosinophil Count 0.10 0 - 0.45 K/UL [facility] Absolute Basophil Count 0.50 (H) 0 - 0.20 K/UL [facility] Specimen Blood Performing Organization Address City/[facility] Centercode Phone Number [facility] [address] [place] [address] * TYPE & CROSSMATCH (01/28/2018 3:10 AM NETWORK SECURITY ENGINEER) Units Ordered 0 [facility] Crossmatch Expires 01/31/2018 MAIN LAB Record Check FOUND MAIN LAB ABO/RH(D) O POS MAIN LAB Antibody Screen NEG [facility] Electronic Crossmatch YES [facility] Specimen Blood Performing Organization Address City/[facility]/Zipcode Phone Number [facility] [address] [place] [address] * DIGOXIN LEVEL (01/28/2018 3:10 AM NETWORK SECURITY ENGINEER) Digoxin 1.6 (HH)Comment: Critical 0.5 - 1.0 NG/ML MAIN LAB Value DIG: Called To: IFTIKHAR Ty at: 03:58:23 by: KRYSTLE Read back by: IFTIKHAR Ty Specimen Blood Performing Organization Address City/State/Zipcode Phone Number MAIN LAB [address] [place] [address] * CHEST SINGLE VIEW (01/27/2018 9:18 AM NETWORK SECURITY ENGINEER) Narrative Performed At CHEST SINGLE VIEW KU [...] Interface, Radiant Results - 01/27/2018 4:37 PM NETWORK SECURITY ENGINEER CHEST SINGLE VIEW Clinical Indication: Male, 62 [...] on 01/27/2018 10:23 AM. Performing Organization Address City/[facility] Centercode Phone Number [facility] RAD RESULTS * PHOSPHORUS (01/27/2018 3:52 AM NETWORK SECURITY ENGINEER) Phosphorus 5.1 (H)Comment: NOTE NEW 2.0 - 4.5 MG/DL [facility] MAIN [facility] REFERENCE RANGES Specimen Blood Performing Organization Address [facility] Centercomt Phone Number MAIN LAB [address] [place] [address] * MAGNESIUM (01/27/2018 3:52 AM NETWORK SECURITY ENGINEER) Magnesium 2.3 1.6 - 2.6 mg/dL MAIN LAB Specimen Blood Performing Organization Address [facility] Phone Number MAIN [facility] [address] [place] [address] * CBC AND DIFF (01/27/2018 3:52 AM NETWORK SECURITY ENGINEER) White Blood Cells 16.6 (H) 4.5 - 11.0 K/UL MAIN LAB RBC 2.58 (L) 4.4 - 5.5 M/UL [facility] Hemoglobin 8.8 (L) 13.5 - 16.5 GM/DL [facility] Hematocrit 27.0 (L) 40 - 50 % [facility] MCV 104.7 (H) 80 - 100 FL [facility] MCH 34.1 (H) 26 - 34 PG MAIN LAB MCHC 32.6 32.0 - 36.0 G/DL MAIN LAB RDW [...] MAIN LAB Specimen Blood Performing Organization Address City/[facility]/Zipcode Phone Number MAIN LAB [address] [place] [address] * BASIC METABOLIC PANEL (01/27/2018 3:52 AM NETWORK SECURITY ENGINEER) Sodium 138 137 - 147 MMOL/L KU [...] - 10.6 MG/DL MAIN LAB eGFR Non 32 (L) >60 mL/min MAIN LAB Comment: The [...] for questions. Specimen Blood Performing Organization Address [facility] Centercode Phone Number [facility] [address] [place] [address] * DIGOXIN LEVEL (01/27/2018 3:52 AM NETWORK SECURITY ENGINEER) Digoxin 2.1 (HH) 0.5 - 1.0 NG/ML MAIN LAB Comment: Critical Value DIG: Called To: NELA Flores at: 04:52:37 by: GREG Read back by: NELA Flores Specimen Blood Performing Organization Address City/[facility]/Zipcode Phone Number [facility] [address] [place] [address] * BASIC METABOLIC PANEL (01/26/2018 2:20 PM NETWORK SECURITY ENGINEER) Sodium 136 (L) 137 - 147 MMOL/L MAIN LAB Potassium 4.8 3.5 - 5.1 MMOL/L MAIN LAB Chloride 104 98 - 110 MMOL/L [facility] MA[facility] CO2 24 21 - 30 MMOL/L MAIN LAB Anion Gap 8 3 - 12 MAIN LAB Glucose 100 70 - 100 MG/DL MAIN LAB Blood Urea Nitrogen 18 7 - 25 MG/DL MAIN LAB Creatinine 2.08 (H) 0.4 - 1.24 MG/DL MAIN LAB Calcium 8.0 (L) 8.5 - 10.6 MG/DL MAIN LAB eGFR Non 33 (L) >60 mL/min MAIN LAB Comment: The eGFR is not validated for use in drug dosing adjustments.Continue to use estimated creatinine clearance per dosing reference text.Please contact the Clinical Pharmacist for questions. eGFR 39 (L) >60 mL/min MAIN LAB Comment: The eGFR is not validated for use in drug dosing adjustments.Continue to use estimated creatinine clearance per dosing reference text.Please contact the Clinical Pharmacist for questions. Specimen Blood Performing Organization Address City/[facility]/Zipcode Phone Number [facility] [address] [place] [address] * EOSINOPHIL STAIN (01/26/2018 8:05 AM NETWORK SECURITY ENGINEER) Battery Name EOSINOPHIL STAIN MAIN LAB Specimen Description URINE MAIN LAB Special Requests NONE MAIN LAB Morrison's Stain NO EOSINOPHILS SEEN MAIN LAB Report Status FINAL [facility] 01/26/2018 Specimen Urine Performing Organization Address [facility]/Zipcode Phone Number [facility] [address] [place] [address] * URINALYSIS, MICROSCOPIC (01/26/2018 8:05 AM NETWORK SECURITY ENGINEER) WBCs,UA 0-2 0 - 2 /HPF MAIN LAB RBCs,UA 0-2 0 - 3 /HPF MAIN LAB Specimen Urine - Urine Performing Organization Address City/[facility]/Zipcode Phone Number MAIN LAB [address] [place] [address] * URINALYSIS DIPSTICK (01/26/2018 8:05 AM NETWORK SECURITY ENGINEER) Color,UA YELLOW MAIN LAB Turbidity,UA CLEAR CLEAR-CLEAR MAIN LAB Specific [place]-Urine 1.011 1.003 - 1.035 MAIN LAB pH,UA 5.0 5.0 - 8.0 MAIN LAB Protein,UA 1+ (A) NEG-NEG [facility] MAIN [facility] Glucose,UA NEG NEG-NEG [facility] MAIN [facility] Ketones,UA NEG NEG-NEG [facility] MAIN [facility] Bilirubin,UA NEG NEG-NEG [facility] MAIN [facility] Blood,UA NEG NEG-NEG [facility] MAIN LAB Urobilinogen,UA NORMAL NORM-NORMAL [facility] MAIN LAB Nitrite,UA NEG NEG-NEG [facility] MAIN LAB Leukocytes,UA NEG NEG-NEG [facility] MAIN [facility] Urine Ascorbic Acid, UA NEG NEG-NEG [facility] MAIN [facility] Specimen Urine - Urine Performing Organization Address [facility] Phone Number MAIN LAB [address] [place] [address] * UREA NITROGEN-URINE RANDOM (01/26/2018 8:05 AM NETWORK SECURITY ENGINEER) Urea Nitrogen 155 MG/DL MAIN LAB Specimen Urine - Urine Performing Organization Address [facility] Phone Number MAIN LAB [address] [place] [address] * CREATININE-URINE RANDOM (01/26/2018 8:05 AM NETWORK SECURITY ENGINEER) Creatinine, Random 32 MG/DL MAIN LAB Specimen Urine - Urine Performing Organization Address [facility] Phone Number MAIN LAB [address] [place] [address] * SODIUM-URINE RANDOM (01/26/2018 8:05 AM NETWORK SECURITY ENGINEER) Sodium, Random 31 MMOL/L MAIN LAB Specimen Urine - Urine Performing Organization Address [facility] Phone Number MAIN LAB [address] [place] [address] * PHOSPHORUS (01/26/2018 4:30 AM NETWORK SECURITY ENGINEER) Phosphorus 4.2Comment: NOTE NEW REFERENCE 2.0 - 4.5 MG/DL MAIN LAB RANGES Specimen Blood Performing Organization Address [facility] Centercomt Phone Number MAIN LAB [address] [place] [address] * MAGNESIUM (01/26/2018 4:30 AM NETWORK SECURITY ENGINEER) Magnesium 2.4 1.6 - 2.6 mg/dL MAIN LAB Specimen Blood Performing Organization Address [facility]comt Phone Number MAIN LAB [address] [place] [address] * COMPREHENSIVE METABOLIC PANEL (01/26/2018 4:30 AM NETWORK SECURITY ENGINEER) Sodium 135 (L) 137 - 147 MMOL/L [...] Organization Address City/State/Zipcode Phone Number MAIN LAB [address] [place] [address] * CBC AND DIFF (01/26/2018 4:30 AM NETWORK SECURITY ENGINEER) White Blood Cells 17.0 (H) 4.5 - [...] City/State/Zipcode Phone Number [facility] [address] [place] [address] * CHEST SINGLE VIEW (01/26/2018 4:18 AM NETWORK SECURITY ENGINEER) Impressions Performed At 1.Slight increase in the [...] Interface, Radiant Results - 01/26/2018 12:11 PM NETWORK SECURITY ENGINEER CHEST SINGLE VIEW Clinical Indication: Male, 62 [...] CT CHEST WO CONTRAST (01/25/2018 12:18 PM NETWORK SECURITY ENGINEER) Impressions Performed At 1. Significant overall improvement [...] Interface, Radiant Results - 01/25/2018 2:22 PM NETWORK SECURITY ENGINEER CT Chest Clinical Indication: Right empyema Technique: [...] * CHEST SINGLE VIEW (01/25/2018 6:14 AM NETWORK SECURITY ENGINEER) Impressions Performed At 1.Interval improvement in the [...] Interface, Radiant Results - 01/25/2018 10:57 AM NETWORK SECURITY ENGINEER CHEST SINGLE VIEW Clinical Indication: Male, 62 [...] on 01/25/2018 9:37 AM. Performing Organization Address [facility]comt Phone Number RAD RESULTS * PHOSPHORUS (01/25/2018 3:38 AM NETWORK SECURITY ENGINEER) Phosphorus 3.2Comment: NOTE NEW REFERENCE 2.0 - 4.5 MG/DL [facility] MAIN [facility] RANGES Specimen Blood Performing Organization Address [facility] Phone Number MAIN LAB [address] [place] [address] * MAGNESIUM (01/25/2018 3:38 AM NETWORK SECURITY ENGINEER) Magnesium 2.2 1.6 - 2.6 mg/dL [facility] MAIN [facility] Specimen Blood Performing Organization Address [facility]t Phone Number MAIN LAB [address] [place] [address] * BASIC METABOLIC PANEL (01/25/2018 3:38 AM NETWORK SECURITY ENGINEER) Sodium 134 (L) 137 - 147 MMOL/L [...] Organization Address City/State/Zipcode Phone Number MAIN LAB [address] [address] * CBC AND DIFF (01/25/2018 3:38 AM NETWORK SECURITY ENGINEER) White Blood Cells 12.9 (H) 4.5 - [...] MAIN LAB Specimen Blood Performing Organization Address City/[facility]/Zipcode Phone Number [facility] [address] [place] [address] * PHOSPHORUS (01/24/2018 3:15 AM NETWORK SECURITY ENGINEER) Phosphorus 2.8Comment: NOTE NEW REFERENCE 2.0 - 4.5 MG/DL [facility] MAIN LAB RANGES Specimen Blood Performing Organization Address City/[facility] Cent[facility]ode Phone Number [facility] MA[facility] [address] [place] [address] * MAGNESIUM (01/24/2018 3:15 AM NETWORK SECURITY ENGINEER) Magnesium 2.4 1.6 - 2.6 mg/dL [facility] MAIN [facility] Specimen Blood Performing Organization Address [facility]comt Phone Number [facility] [address] [place] [address] * COMPREHENSIVE METABOLIC PANEL (01/24/2018 3:15 AM NETWORK SECURITY ENGINEER) Sodium 133 (L) 137 - 147 MMOL/L [...] for questions. Specimen Blood Performing Organization Address City/[facility]/Zipcode Phone Number MAIN LAB [address] [place] [address] * CBC AND DIFF (01/24/2018 3:15 AM NETWORK SECURITY ENGINEER) White Blood Cells 14.4 (H) 4.5 - [...] MAIN LAB Specimen Blood Performing Organization Address City/[facility]/Zipcode Phone Number [facility]IN [facility] [address] [place] [address] * CHEST SINGLE VIEW (01/24/2018 2:10 AM NETWORK SECURITY ENGINEER) Impressions Performed At 1. Persistent loculated right [...] Interface, Radiant Results - 01/24/2018 9:40 AM NETWORK SECURITY ENGINEER CHEST SINGLE VIEW Indication: Male, 62 years [...] on 01/24/2018 7:43 AM. Performing Organization Address City/[facility] Centercode Phone Number RAD RESULTS * VANCOMYCIN TROUGH (01/23/2018 9:19 PM NETWORK SECURITY ENGINEER) Vancomycin Trough 16.2 10.0 - 20.0 MCG/ML MAIN LAB Specimen Blood, venous - Blood Performing Organization Address [facility]t Phone Number MAIN LAB [address] [place] [address] * POTASSIUM (01/23/2018 6:10 PM NETWORK SECURITY ENGINEER) Potassium 4.2 3.5 - 5.1 MMOL/L MAIN LAB Specimen Blood Performing Organization Address [facility] Cent[facility]ode Phone Number MAIN LAB [address] [place] [address] * MAGNESIUM (01/23/2018 6:10 PM NETWORK SECURITY ENGINEER) Magnesium 2.7 (H) 1.6 - 2.6 mg/dL MAIN LAB Specimen Blood Performing Organization Address [facility] Phone Number MAIN LAB [address] [place] [address] * POTASSIUM (01/23/2018 11:30 AM NETWORK SECURITY ENGINEER) Potassium 3.1 (L) 3.5 - 5.1 MMOL/L MAIN LAB Specimen Blood Performing Organization Address [facility] Phone Number MAIN LAB [address] [place] [address] * MAGNESIUM (01/23/2018 11:30 AM NETWORK SECURITY ENGINEER) Magnesium 1.7 1.6 - 2.6 mg/dL MAIN LAB Specimen Blood Performing Organization Address [facility] Phone Number MAIN LAB [address] [place] [address] * PHOSPHORUS (01/23/2018 3:40 AM NETWORK SECURITY ENGINEER) Phosphorus 3.1Comment: NOTE NEW REFERENCE 2.0 - 4.5 MG/DL MAIN LAB RANGES Specimen Blood Performing Organization Address [facility] Phone Number MAIN LAB [address] [place] [address] * MAGNESIUM (01/23/2018 3:40 AM NETWORK SECURITY ENGINEER) Magnesium 1.8 1.6 - 2.6 mg/dL MAIN LAB Specimen Blood Performing Organization Address City/[facility]/Zipcode Phone Number MAIN LAB [address] [place] [address] * COMPREHENSIVE METABOLIC PANEL (01/23/2018 3:40 AM NETWORK SECURITY ENGINEER) Sodium 134 (L) 137 - 147 MMOL/L [...] for questions. Specimen Blood Performing Organization Address [facility]/State/Zipcode Phone Number MAIN LAB [address] [place] [address] * CBC AND DIFF (01/23/2018 3:40 AM NETWORK SECURITY ENGINEER) White Blood Cells 28.8 (H) 4.5 - [...] City/State/Zipcode Phone Number [facility] MAIN [facility] [address] [place] [address] * CHEST SINGLE VIEW (01/23/2018 12:36 AM NETWORK SECURITY ENGINEER) Impressions Performed At 1.No significant change in [...] Interface, Radiant Results - 01/23/2018 1:08 PM NETWORK SECURITY ENGINEER CHEST SINGLE VIEW Clinical Indication: Male, 62 [...] on 01/23/2018 10:33 AM. Performing Organization Address [facility]t Phone Number RAD RESULTS * LDH-LACTATE DEHYDROGENASE (01/23/2018 12:30 AM NETWORK SECURITY ENGINEER) Lactate Dehydrogenase 168 100 - 210 U/L MAIN LAB Specimen Blood Performing Organization Address [facility] Phone Number MAIN LAB [address] [place] [address] * CULTURE-TB (AFB) (01/22/2018 7:35 PM NETWORK SECURITY ENGINEER) Battery Name AFB CULTURE MAIN LAB Specimen Description PLEURAL FLUID MAIN LAB R hydropneumothorax tube 2 Special Requests NONE MAIN LAB Culture NO GROWTH OF MYCOBACTERIA AT 6 MAIN LAB WEEKS Report Status FINAL MAIN LAB 03/14/2018 Specimen Pleural Fluid Performing Organization Address [facility] Phone Number MAIN LAB [address] [place] [address] * CULTURE-FUNGAL,OTHER (01/22/2018 7:35 PM NETWORK SECURITY ENGINEER) Battery Name FUNGUS CULTURE MAIN LAB Specimen Description PLEURAL FLUID MAIN LAB R hydropneumothorax tube 2 Special Requests NONE MAIN LAB Culture NO GROWTH OF FUNGUS AT 4 WEEKS KU MAIN LAB Report Status FINAL MAIN LAB 02/21/2018 Specimen Pleural Fluid Performing Organization Address [facility] Phone Number MAIN LAB [address] [place] [address] * GRAM STAIN (01/22/2018 7:35 PM NETWORK SECURITY ENGINEER) Battery Name GRAM STAIN [facility] MAIN LAB Specimen Description PLEURAL FLUID KU MAIN LAB R hydropneumothorax tube 2 Special Requests NONE KU MAIN LAB Gram Stain MANY KU MAIN LAB NEUTROPHILS NO ORGANISMS SEEN Report Status FINAL [facility] MAIN LAB 01/23/2018 Specimen Pleural Fluid Performing Organization Address City/[facility] Centercode Phone Number [facility] MAIN [facility] [address] [place] [address] * CULTURE-WOUND/TISSUE/FLUID(AEROBIC ONLY)W/SENSITIVITY (01/22/2018 7:35 PM NETWORK SECURITY ENGINEER ) Battery Name ROUTINE CULTURE [facility] MAIN LAB Specimen Description PLEURAL FLUID [facility] MAIN LAB R hydropneumothorax tube 2 Special Requests NONE MAIN LAB Direct Gram Stain MANY [facility]U MAIN LAB NEUTROPHILS NO ORGANISMS SEEN Culture NO GROWTH 5 DAYS KU MAIN LAB Report Status FINAL [facility] MAIN LAB 01/27/2018 Specimen Pleural Fluid Performing Organization Address [facility]ode Phone Number [facility] MAIN [facility] [address] [place] [address] * PLEURAL FLUID TRIGLYCERIDES (01/22/2018 7:35 PM NETWORK SECURITY ENGINEER) Pleural Fluid 42 mg/dL K[facility] MAIN LAB Triglycerides Comment: Triglycerides >110 mg/dL is suggestive of a chylothorax.Triglycerides <50 mg/dL is suggestive of pseudochylothorax. Specimen Pleural Fluid Performing Organization Address [facility] Centercode Phone Number [facility] MAIN [facility] [address] [place] [address] * PLEURAL FLUID TOTAL PROTEIN (01/22/2018 7:35 PM NETWORK SECURITY ENGINEER) Pleural Fluid Total 4.0 (H)Comment: Serum to <1.1 g/dL [facility] MAIN LAB Protein pleural fluid protein gradient >3.1 g/dL is suggestive of an exudate Specimen Pleural Fluid Performing Organization Address City/[facility] Centercode Phone Number [facility] MAIN [facility] [address] [place] [address] * PLEURAL FLUID PH (01/22/2018 7:35 PM NETWORK SECURITY ENGINEER) Pleural Fluid Ph 7.64 7.60 - 7.66 [facility] MAIN LAB Specimen Pleural Fluid Performing Organization Address City/[facility]ode Phone Number [facility] MAIN [facility] [address] [place] [address] * PLEURAL FLUID LIPASE (01/22/2018 7:35 PM NETWORK SECURITY ENGINEER) Pleural Fluid Lipase <3 U/L [facility] MAIN LAB Comment: Ascites due to pancreatitis is associated with lipase >3 times higher than plasma. Specimen Pleural Fluid Performing Organization Address [facility] Phone Number [facility] [address] [place] [address] * PLEURAL FLUID GLUCOSE (01/22/2018 7:35 PM NETWORK SECURITY ENGINEER) Pleural Fluid Glucose <10 (L) 70 - 100 mg/dL [facility] MAIN LAB Comment: Glucose <60 mg/dL associated withparapneumonic effusion, tuberculosis, malignancy, empyema, and rheumatoid disease Specimen Pleural Fluid Performing Organization [facility]t Phone Number [facility] MAIN [facility] [address] [place] [address] * PLEURAL FLUID LACTATE DEHYDROGENASE (01/22/2018 7:35 PM NETWORK SECURITY ENGINEER) Pleural Fluid Lactate 2,376 (H)Comment: Higher 67 - 140 U/L [facility] MAIN LAB Dehydrogenase levels suggestive of exudate Specimen Pleural Fluid Performing Organization [facility] Phone Number [facility] [address] [place] [address] * PLEURAL FLUID CHOLESTEROL (01/22/2018 7:35 PM NETWORK SECURITY ENGINEER) Pleural Fluid Cholesterol 62 (H) <45 mg/dL [facility] MAIN LAB Comment: Pleural fluid cholesterol reference range is <45 mg/dL. Elevated level is suggestive of an exudate Specimen Pleural Fluid Performing Organization [facility] Phone Number [facility] [address] [place] [address] * PLEURAL FLUID TOTAL BILIRUBIN (01/22/2018 7:35 PM NETWORK SECURITY ENGINEER) Pleural Fluid Total 0.4 mg/dL [facility] MAIN LAB Bilirubin Comment: Pleural fluid to serum bilirubin ratio of 0.6 suggests the presence of an exudate Specimen Pleural Fluid Performing Organization [facility] Phone Number [facility] [address] [place] [address] * PLEURAL FLUID AMYLASE (01/22/2018 7:35 PM NETWORK SECURITY ENGINEER) Pleural Fluid Amylase 15 U/L [facility] MAIN LAB Comment: Elevated pleural fluid value is a level higher than the upper limit of normal for plasma. Specimen Pleural Fluid Performing Organization [facility]ode Phone Number MAIN LAB [address] [place] [address] * PLEURAL FLUID ALBUMIN (01/22/2018 7:35 PM NETWORK SECURITY ENGINEER) Pleural Fluid Albumin 1.6Comment: Pleural fluid g/dL [facility] MAIN LAB albumin gradient >1.2 g/dL is suggestive of an exudate Specimen Pleural Fluid Performing Organization Address [facility] Phone Number MAIN LAB [address] [place] [address] * CELL COUNT W/DIFF-FLUIDS (01/22/2018 7:35 PM NETWORK SECURITY ENGINEER) White Blood Cells,Fluid 12,995 /UL MAIN LAB Red Blood Cells,Fluid 8,265 /UL [facility] MAIN LAB Segmented Neutrophils, 91 % [facility] MAIN LAB Fluid Lymphocytes,Fluid 2 % [facility] MAIN LAB Monocyte/Histo,Fluid 7 % [facility] MAIN LAB Fluid Source PLEURAL FLUID [facility] MAIN LAB Pathology ACUTE INFLAMMATION [facility] MAIN LAB Interpretation,Fluid HEMORRHAGIC FLUID Pathologist Signature INTERPRETED BY MANDA BLACK M.D. [facility] By the PATH SIGNATURE ABOVE, I attest that I have personally formulated the final interpretation expressed in this report and that the above diagnosis is based upon my examination of the slides and/or other material indicated in this report. Specimen Fluid - Pleural Fluid Performing Organization Address [facility]ode Phone Number MAIN LAB [address] [place] [address] * LACTIC ACID (BG - RAPID LACTATE) (01/22/2018 7:15 PM NETWORK SECURITY ENGINEER) Lactic Acid,BG 1.1 0.5 - 2.0 MMOL/L [facility] MAIN LAB Performing Organization Address [facility] Phone Number MAIN LAB [address] [place] [address] * O2 SATURATION, CENTRAL VENOUS (01/22/2018 7:15 PM NETWORK SECURITY ENGINEER) O2 Sat, Central Venous 55.5 % MAIN LAB Specimen Blood Performing Organization Address [facility] Phone Number MAIN LAB [address] [place] [address] * CHEST SINGLE VIEW (01/22/2018 6:57 PM NETWORK SECURITY ENGINEER) Impressions Performed At Slight improvement in fluid [...] Interface, Radiant Results - 01/23/2018 12:53 PM NETWORK SECURITY ENGINEER CHEST SINGLE VIEW Clinical Indication: Male, 62 [...] LINE PLCMT 1V CXR (01/22/2018 6:20 PM NETWORK SECURITY ENGINEER) Impressions Performed At Placement of an additional [...] on 01/23/2018 9:18 AM. Narrative Performed At [facility] 1 CXR KU RAD RESULTS Clinical [...] Interface, Radiant Results - 01/23/2018 12:55 PM NETWORK SECURITY ENGINEER LINE [facility] 1V CXR Clinical Indication: Male, 62 [...] * CHEST TUBE INSERTION (01/22/2018 6:14 PM NETWORK SECURITY ENGINEER) Narrative Performed At Cici Jenkins 01/22/20186:28 PM [...] to verify the correct patient, procedure, equipment, network support technician and site/side marked as required. Indications: pleural effusion Indications comments: hydropneumothorax Sedation: Patient sedated: no Anesthesia: local infiltration Anesthesia: Local Anesthetic: lidocaine 1% with epinephrine Preparation: skin prepped with Chloraprep Placement location: right lateral Scalpel size: 10 Tube size: 8 Estonian Ultrasound guidance: yes Tension pneumothorax heard: no Tube connected to: suction Drainage characteristics: cloudy and serosanguinous Suture material: 2-0 silk Dressinx4 sterile gauze and Xeroform gauze Post-insertion x-ray findings: tube in good position Patient tolerance: Patient tolerated the procedure well with no immediate complications * CHEST SINGLE VIEW (01/22/2018 5:06 PM NETWORK SECURITY ENGINEER) Impressions Performed At 1. Right PICC line [...] Interface, Radiant Results - 01/23/2018 12:38 PM NETWORK SECURITY ENGINEER Chest single view INDICATION: 62-year-old male, status [...] on 01/23/2018 12:29 PM. Performing Organization Address [facility] [place] Number RAD RESULTS * CHEST TUBE INSERTION (01/22/2018 5:02 PM NETWORK SECURITY ENGINEER) Narrative Performed At Henry Flores MD 01/22/20188:34 [...] to verify the correct patient, procedure, equipment, network support technician and site/side marked as required. Indications: pneumothorax Sedation: Patient sedated: no Anesthesia: local infiltration Anesthesia: Local Anesthetic: lidocaine 1% with epinephrine Preparation: skin prepped with Chloraprep Placement location: right anterior Scalpel size: 10 Tube size: 8 Estonian Ultrasound guidance: yes Tension pneumothorax heard: no Tube connected to: suction Suture material: 2-0 silk Dressinx4 sterile gauze and Xeroform gauze Patient tolerance: Patient tolerated the procedure well with no immediate complications * GRAM STAIN (01/22/2018 9:34 AM NETWORK SECURITY ENGINEER) Battery Name GRAM STAIN [facility] Specimen Description SPUTUM [facility] Special Requests NONE [facility] Gram Stain SPECIMEN CONTAINS >25 SQUAMOUS [facility] EPITHELIAL CELLS INDICATING CONTAMINATION WITH SALIVA. GROWTH WILL REPRESENT NORMAL MOUTH ALVARO. SPECIMEN DOES NOT MEET CRITERIA FOR CULTURE. Notified Nela 12.8 at 1440 by nr Report Status FINAL [facility] 01/22/2018 Specimen Sputum Performing Organization Address [facility] [address] [place] [address] * PHOSPHORUS (01/22/2018 4:56 AM NETWORK SECURITY ENGINEER) Phosphorus 3.4Comment: NOTE NEW REFERENCE 2.0 - 4.5 MG/DL [facility] RANGES Specimen Blood Performing Organization Address [facility] Phone Number [facility] [address] [place] [address] * MAGNESIUM (01/22/2018 4:56 AM NETWORK SECURITY ENGINEER) Magnesium 1.7 1.6 - 2.6 mg/dL [facility] Specimen Blood Performing Organization Address [facility] Phone Number [facility] [address] [place] [phone] * COMPREHENSIVE METABOLIC PANEL (01/22/2018 4:56 AM NETWORK SECURITY ENGINEER) Sodium 132 (L) 137 - 147 MMOL/L [...] for questions. Specimen Blood Performing Organization Address [facility] Phone Number MA[facility] LAB [address] [place] [phone] * CBC AND DIFF (01/22/2018 4:56 AM NETWORK SECURITY ENGINEER) White Blood Cells 24.4 (H) 4.5 - [...] MAIN LAB Specimen Blood Performing Organization Address [facility] Phone Number MAIN LAB [address] [place] [address] * BASIC METABOLIC PANEL (01/21/2018 10:56 PM NETWORK SECURITY ENGINEER) Sodium 130 (L) 137 - 147 MMOL/L [...] Organization Address City/State/Zipcode Phone Number MAIN LAB [address] [place] [address] * TELEMETRY STRIPS-SCAN (01/21/2018 12:00 AM NETWORK SECURITY ENGINEER) Narrative Performed At Ordered by an unspecified provider. in this encounter Visit Diagnoses Diagnosis Loculated pleural effusion Unspecified pleural effusion in this encounter Admitting Diagnoses Diagnosis Loculated [...] ACETAMINOPHEN DOSE NOT TO EXCEED 4GM DAILY, 02/02/2018 5:41 AM NETWORK SECURITY ENGINEER 3 mL acetylcysteine (MUCOMYST) 200 mg/mL (20 Given %) nebulizer solution 3 mL 3 mL, Inhalation, RT EVERY 12 HOURS, First dose on Wed01/24/18 at 1200, Until Discontinued, When administered by RT, will be per RT policy. [id number]/ml, 3 mL Given 02/01/2018 5:30 PM NETWORK SECURITY ENGINEER 3 mL Given 02/01/2018 5:33 AM NETWORK SECURITY ENGINEER 02/02/2018 5:40 AM NETWORK SECURITY ENGINEER 2.5 mg albuterol 0.5% (PROVENTIL; VENTOLIN) Given nebulizer solution 2.5 mg 2.5 mg, Inhalation, RT TWICE DAILY AND PRN, First dose on Wed01/26/18 at 2245, Until Discontinued, When administered by RT, will be per RT policy., 2.5 mg Given 02/01/2018 5:29 PM NETWORK SECURITY ENGINEER 2.5 mg Given 02/01/2018 5:32 AM NETWORK SECURITY ENGINEER 01/24/2018 11:49 AM NETWORK SECURITY ENGINEER 2 mg alteplase (CATHFLO ACTIVASE) injection 2 Given mg 2 mg, Intra-catheter, TWICE DAILY PRN, Starting Wed01/22/18 at 0326, Until Wed02/02/18 at 1643, Clotted vascular access 2 mg Given 01/22/2018 4:10 AM NETWORK SECURITY ENGINEER 2 mg Given 01/22/2018 4:09 AM NETWORK SECURITY ENGINEER 02/02/2018 8:29 AM NETWORK SECURITY ENGINEER 500 mg ascorbic acid (VITAMIN C) tablet 500 mg Given 500 mg, Oral, DAILY, First dose on Wed01/22/18 at 0900, Until Discontinued 500 mg Given 02/01/2018 8:51 AM NETWORK SECURITY ENGINEER 500 mg Given 01/31/2018 8:04 AM NETWORK SECURITY ENGINEER 02/02/2018 8:29 AM NETWORK SECURITY ENGINEER 400 Units cholecalciferol (VITAMIN D-3) tablet 400 Given Units 400 Units, Oral, DAILY, First dose on 01/22/18 at 0900, Until Discontinued 400 Units Given 02/01/2018 9:10 AM NETWORK SECURITY ENGINEER 400 Units Given 01/31/2018 9:20 AM NETWORK SECURITY ENGINEER 02/02/2018 3:52 PM NETWORK SECURITY ENGINEER 125 mcg digoxin (LANOXIN) tablet 125 mcg Given 125 mcg, Oral, DAILY, First dose on Wed02/02/18 at 1600, Until Discontinued, Hold for heart rate < 60 bpm. NOTE: PHARMACOKINETIC MONITORING, 01/23/2018 8:56 PM NETWORK SECURITY ENGINEER 200 mg docusate (COLACE) capsule 200 mg Given 200 mg, Oral, TWICE DAILY, First dose on Wed01/21/18 at 2100, Until Discontinued, Hold for loose stools, 200 mg Given 01/23/2018 8:59 AM NETWORK SECURITY ENGINEER 02/02/2018 8:29 AM NETWORK SECURITY ENGINEER 40 mg Abdominal Tissue enoxaparin (LOVENOX) syringe 40 mg Given 40 mg, Subcutaneous, DAILY, First dose on 01/29/18 at 0900, Until Discontinued, For patients undergoing surgery: Consult physician in advance -- enoxaparin is an anticoagulant and may need to be held for 12hr prior to surgery or invasive procedures. NOTE: This is a HIGH ALERT Medication., 40 mg Abdominal Tissue Given 02/01/2018 8:50 AM NETWORK SECURITY ENGINEER 40 mg Abdominal Tissue Given 01/31/2018 8:03 AM NETWORK SECURITY ENGINEER 01/28/2018 8:12 AM NETWORK SECURITY ENGINEER 2 sprays fluticasone (FLONASE) nasal spray 2 Given spray 2 spray, Each Nostril, DAILY, First dose on Wed01/22/18 at 0900, Until Discontinued 2 sprays Given 01/27/2018 9:10 AM NETWORK SECURITY ENGINEER 2 sprays Given 01/26/2018 8:44 AM NETWORK SECURITY ENGINEER 02/02/2018 8:29 AM NETWORK SECURITY ENGINEER 600 mg guaiFENesin LA (MUCINEX) tablet 600 mg Given 600 mg, Oral, TWICE DAILY, First dose on Wed01/21/18 at 2100, Until Discontinued 600 mg Given 02/01/2018 8:32 PM NETWORK SECURITY ENGINEER 600 mg Given 02/01/2018 8:51 AM NETWORK SECURITY ENGINEER 02/02/2018 5:53 AM NETWORK SECURITY ENGINEER 372 mg isavuconazonium sulfate (CRESEMBA) Given capsule 372 mg 372 mg, Oral, DAILY, First dose on Wed01/21/18 at 2100, Until Discontinued 372 mg Given 02/01/2018 5:14 AM NETWORK SECURITY ENGINEER 372 mg Given 01/31/2018 5:59 AM NETWORK SECURITY ENGINEER 01/27/2018 9:10 AM NETWORK SECURITY ENGINEER 1 patch Back, Lower Right lidocaine (LIDODERM) [...] Chest, Right Patch/Topical Applied 01/26/2018 8:43 AM NETWORK SECURITY ENGINEER 2 patches Chest, Right Patch/Topical Applied 01/25/2018 8:44 AM NETWORK SECURITY ENGINEER 02/02/2018 8:29 AM NETWORK SECURITY ENGINEER 400 mg magnesium oxide (MAG-OX) tablet 400 mg Given 400 mg, Oral, TWICE DAILY, First dose on Wed01/21/18 at 2100, Until Discontinued, Delivers 241.3mg elemental magnesium per tab, 400 mg Given 02/01/2018 8:32 PM NETWORK SECURITY ENGINEER 400 mg Given 02/01/2018 8:51 AM NETWORK SECURITY ENGINEER 02/02/2018 11:46 AM NETWORK SECURITY ENGINEER 1 g 100 mL/hr magnesium sulfate 1 g/D5W 100 mL IVPB Given - New 1 g, Intravenous, 100 mL, Administer Bag over 1 Hours, NEEDED, Starting Wed01/23/18 at 0752, Until Wed02/02/18 [...] Given - New Bag 02/02/2018 9:40 AM NETWORK SECURITY ENGINEER 1 g 100 mL/hr Given - New Bag 02/02/2018 8:37 AM NETWORK SECURITY ENGINEER 02/02/2018 8:30 AM NETWORK SECURITY ENGINEER 12.5 mg metoprolol tartrate (LOPRESSOR) tablet Given 12.5 mg 12.5 mg, Oral, TWICE DAILY, First dose on Wed01/24/18 at 0900, Until Discontinued, Hold for heart rate < 60 bpm or systolic BP < 100, 12.5 mg Given 02/01/2018 8:32 PM NETWORK SECURITY ENGINEER 12.5 mg Given 02/01/2018 8:52 AM NETWORK SECURITY ENGINEER 01/28/2018 11:45 AM NETWORK SECURITY ENGINEER 10 mL mineral oil (topical) Given INTRA-PROCEDURE MED, Starting Wed01/28/18 at 1145, Until Wed01/28/18 at 1304, Intra-op naloxone (NARCAN) injection 0.08 mg 0.08 mg, [...] Rapid Response Team. , PROTECT FROM LIGHT, 02/02/2018 12:00 PM NETWORK SECURITY ENGINEER 4 mg ondansetron (ZOFRAN) tablet 4 mg Given 4 mg, Oral, THREE TIMES DAILY WITH MEALS, First dose on Wed01/22/18 at 0800, Until Discontinued 4 mg Given 02/02/2018 8:29 AM NETWORK SECURITY ENGINEER 4 mg Given 02/01/2018 5:53 PM NETWORK SECURITY ENGINEER 02/02/2018 3:52 PM NETWORK SECURITY ENGINEER 5 mg oxyCODONE (ROXICODONE, OXY-IR) tablet Given 5-10 mg 5-10 mg, Oral, EVERY 3 HOURS PRN, Starting Wed02/01/18 at 0834, Until Wed02/02/18 at 1643, Pain PO 5 mg Given 02/02/2018 2:17 PM NETWORK SECURITY ENGINEER 5 mg Given 02/02/2018 12:00 PM NETWORK SECURITY ENGINEER 02/02/2018 8:28 AM NETWORK SECURITY ENGINEER [address] (PROTONIX) tablet 40 mg Given 40 mg, Oral, DAILY, First dose on Wed01/21/18 at 1945, Until Discontinued, Do not crush or chew tablet., 40 mg Given 02/01/2018 8:51 AM NETWORK SECURITY ENGINEER 40 mg Given 01/31/2018 8:05 AM NETWORK SECURITY ENGINEER 02/02/2018 2:11 PM NETWORK SECURITY ENGINEER 3.375 g 200 mL/hr piperacillin/tazobactam (ZOSYN) 3.375 g Given in sodium chloride 0.9% (NS) 100 mL IVPB (MB+) 3.375 g, Intravenous, at 200 mL/hr, EVERY 6 HOURS, First dose on Wed01/26/18 at 1400, Until Discontinued 3.375 g 200 mL/hr Given 02/02/2018 8:28 AM NETWORK SECURITY ENGINEER 3.375 g 200 mL/hr Given 02/02/2018 2:01 AM NETWORK SECURITY ENGINEER 01/30/2018 7:23 AM NETWORK SECURITY ENGINEER 40 mEq potassium chloride oral solution 40-60 Given mEq 40-60 mEq, Per NG tube, NEEDED, Starting 01/23/18 at 0752, Until Wed02/02/18 [...] tablet, 40 mEq Given 01/23/2018 1:12 PM NETWORK SECURITY ENGINEER 02/01/2018 8:51 AM NETWORK SECURITY ENGINEER 40 mEq potassium chloride SR (K-DUR) tablet Given 40-60 mEq 40-60 mEq, Oral, NEEDED, Starting [place] 01/23/18 at 0752, Until Wed02/02/18 at 1643, [...] tablet, 40 mEq Given 01/31/2018 8:04 AM NETWORK SECURITY ENGINEER 40 mEq Given 01/29/2018 6:01 AM NETWORK SECURITY ENGINEER 01/23/2018 8:58 PM NETWORK SECURITY ENGINEER 2 tablets senna (SENOKOT) tablet 2 tablet Given 2 tablet, Oral, TWICE DAILY, First dose on Wed01/21/18 at 2100, Until Discontinued, Hold for loose stools, 2 tablets Given 01/23/2018 8:59 AM NETWORK SECURITY ENGINEER 2 tablets Given 01/22/2018 9:22 AM NETWORK SECURITY ENGINEER 01/28/2018 11:45 AM NETWORK SECURITY ENGINEER 1,000 mL sodium chloride 0.9% irrigation bottle Given INTRA-PROCEDURE MED, Starting Wed01/28/18 at 1145, Until Wed01/28/18 at 1304, Intra-op 02/02/2018 3:54 PM NETWORK SECURITY ENGINEER 30 mL sodium chloride PF 0.9% flush 30 mL Given 30 mL, Intravenous, FLUSH THREE TIMES DAILY, First dose on Wed01/22/18 at 0000, Until Discontinued, Flush central, Midline or PICC line, with 5-10 mL every 8 hours using the push-pause (turbulent) method. Flush all lumens that do not have a continuous infusion. After obtaining blood specimen, flush catheter with 20 mL., 30 mL Given 02/02/2018 8:37 AM NETWORK SECURITY ENGINEER 30 mL Given 02/02/2018 12:41 AM NETWORK SECURITY ENGINEER 02/02/2018 8:29 AM NETWORK SECURITY ENGINEER 100 mg thiamine mononitrate tablet 100 mg Given 100 mg, Oral, DAILY, First dose on Wed01/22/18 at 0900, Until Discontinued 100 mg Given 02/01/2018 8:51 AM NETWORK SECURITY ENGINEER 100 mg Given 01/31/2018 8:05 AM NETWORK SECURITY ENGINEER 02/02/2018 5:44 AM NETWORK SECURITY ENGINEER 1 puff umeclidinium-vilanterol (ANORO ELLIPTA) Given 62.5-25 mcg/actuation inhaler 1 puff 1 puff, Inhalation, RT DAILY, First dose on Wed01/25/18 at 0600, Until Discontinued, When administered by RT, will be per RT policy., 1 puff Given 01/31/2018 5:43 AM NETWORK SECURITY ENGINEER 1 puff Given 01/30/2018 8:33 AM NETWORK SECURITY ENGINEER 02/02/2018 9:42 AM NETWORK SECURITY ENGINEER vitamin A & D topical ointment Given Topical, DAILY, First dose on Wed01/22/18 at 0900, Until Discontinued, Apply A&D ointment to wounds and cover with a Biatain foam. Dressing changes daily and PRN soiling per floor RN., Given 02/01/2018 8:55 AM NETWORK SECURITY ENGINEER Given 01/31/2018 8:22 AM NETWORK SECURITY ENGINEER 02/02/2018 8:29 AM NETWORK SECURITY ENGINEER 1 tablet vitamins, multi w/minerals tablet 1 Given tablet 1 tablet, Oral, DAILY, First dose on Wed01/22/18 at 0900, Until Discontinued 1 tablet Given 02/01/2018 8:51 AM NETWORK SECURITY ENGINEER 1 tablet Given 01/31/2018 8:05 AM NETWORK SECURITY ENGINEER in this encounter
--- OUTSIDE RECORDS SUMMARY | 2018-03-30 14:10 | XMS REPORT | Encounter Summary ---
Author Author [facility] Organization [facility] Address Unknown Phone Unavailable Care Team Providers Care Agricultural Service Technician Name Role Phone Seb Mai Unavailable Unavailable Samir Lopez MD Unavailable Unavailable Samara Lugo RN Unavailable Unavailable Flavio Jackson MD PCP Reason for Visit * Auth/Cert Referred By Contact Referred To Contact Status Reason Specialty Diagnoses / Procedures Diagnoses Pneumonia Loculated pleural effusion PNEUMONIA Encounter Details Care Team Description Date Type Department Caity Britton MD [address] [place], [place] [id number] 01/28/2018 Anesthesia Cardiovascular Operating Event Room [address] [place] [address] Anesthesia Record Responsible Anesthesiologist Anesthesia Start Time Anesthesia Stop Time Procedure Name Tim Rodriguez MD 01/28/18 1115 01/28/18 1240 THORACOSCOPY, DEBRIDEMENT AND DECORTICATION OF RIGHT LUNG (Right ) Date Time Event Comment 999 AN Equip Check 2018 1057 1112 Out of Pre Procedure 1114 In Room 1115 Anes Start 1115 An Start Data 1121 An Induction The patient was reevaluated immediately before moderate or deep sedation use and before anesthesia induction. 1125 An Intubation 1139 Anesthesia Ready 1139 An one lung vent 1209 An Two-Lung Vent 1225 An Extubation 1228 an stop data 1235 Handoff to RN I completed my SBAR handoff to the receiving nurse. 1240 An Stop Meds Name Total fentaNYL PF (SUBLIMAZE) injection 150 mcg propofol (DIPRIVAN) 200 mg/ 20 mL 100 mg injection (VIAL) rocuronium (ZEMURON) injection 50 mg ondansetron (ZOFRAN) injection 4 mg sugammadex (BRIDION) 100 mg/mL iv soln 150 mg dextran 70/hypromellose (GENTEAL TEARS; 2 drop BION TEARS) ophthalmic solution ketorolac (TORADOL) 30 mg injection IV 30 mg sodium chloride 0.9 % infusion 400 mL * Name O2 N2O Inspired N2O Sevoflurane Inspired Sevoflurane * No blood administrations on file. Removal Type Details Placement Chest Tube 01/28/18; 1158; Right; Pleural; 24 FR (2 01/28/[address]'s Y together) Britta Forbes RN Wounds 01/28/18; 1226; Chest; Surgical 01/28/18 1226 by Kanchan, (NOT for Incision; Dermabond CONSTANTIN Stone Pressure Injuries) 01/30/18 2300 by Bertha Mcclure RN Wounds 11/18/17; 1000; Anterior, Left; Leg; 11/18/17 1000 by Mario, (NOT for 01/30/18; 2300 CONSTANTIN Rousseau Pressure Injuries) 02/21/18 0939 by Osvaldo Lim RN PICC 11/20/17; 1025; Other (Comment) ( 11/20/17 1025 by Lester [id number]); Claudette KILLIAN timeout Diane Yang VAT; Correct Patient, Correct Procedure, Correct Patient Position, Correct Equipment / Implants Available, Correct Side / Site Marked "YES"; Hand Hygiene, Cap , Mask, Sterile Gloves, Sterile Gown, Eye Protection, Full Body Sterile Drape; Chlorhexadine (CHG); Brachial, Right; 5 FR; Microintroducer Technique, Ultrasound, Lidocaine Prep (trimmed and inserted @ 46cm, CIRC 28.5cm); Other (Comment) (4.6mm, 37%); 1; Securement device, Chlorhexadine (CHG) impregnated sponge, Sterile occlusive dressing; X-ray (CXR-and Dr. Christie confirms that tip of PICC is overlying the DSVC.); 02/21/18; 0939; Y 01/30/18 2300 by Bertha Mcclure RN Wounds 01/11/18; 1117; Left, Posterior; Wrist; 01/11/18 1117 by Benedicto, (NOT for Skin Tear; 01/30/18; 2300 CONSTANTIN Tejada Pressure Injuries) 02/04/18 1032 by Kaylen Lynch RN Wounds 01/19/18; 1530; Left; Abdomen; Surgical 01/19/18 1530 by Eric, (NOT for Incision; peg removal site; 02/04/18; CONSTANTIN Oh Pressure 1032; Healed Injuries) 01/30/18 2300 by Bertha Mcclure RN Wounds 01/21/18; 2000; Lateral, Right; Elbow; 01/21/18 2000 by Morales, (NOT for Skin Tear; 01/30/18; 2300 CONSTANTIN Oh Pressure Injuries) 01/28/18 1155 by Britta Forbes RN Chest Tube 01/22/18; 1745; Right, Posterior (Chest 01/22/18 1745 by Sen, tube #2); Pleural; 14 FR; Correct CONSTANTIN Gupta Patient, Correct Procedure, Correct Patient Position, Correct Equipment / Implants Available, Correct Side / Site Marked "YES"; 01/28/18; 1155 02/08/18 1514 by Reina Saxena Wounds 01/25/18; 1638; Anterior; Chest; 01/25/18 1638 by Raymundo, (NOT for Puncture Wound; 02/08/18; 1514; old CONSTANTIN Henderson Pressure chest tube site Injuries) 01/28/18 1231 by Tim Rodriguez MD ETT 01/28/18; 1125; Ventilated by mask (1); 01/28/18 1125 by Kit, Direct laryngoscopy; Double-Lumen LArvind MD Cuffed; 37 Fr; Mac; 3; Oral; 1-Full view of the glottis; 1 insertion attempt; Auscultation, ETCO2 Detector; 29 centimeters; 01/28/18; 1231 02/01/18 0000 by Bertha Mcclure, CONSTANTIN Chest Tube 01/28/18; 1159; Right; Pleural; 24 FR; 01/28/18 1159 by Kanchan , 02/01/18 CONSTANTIN Stone in this encounter Social History Date Tobacco Use Types Packs/Day [...] Visit Diagnoses Not on filein this encounter Administered Medications Action Date Dose Rate Site Medication Order MAR Action 01/28/2018 11:26 AM JANITOR HELPER 2 drops dextran 70/hypromellose (GENTEAL TEARS; Given BION TEARS) ophthalmic solution INTRA-PROCEDURE MED, Starting Wed01/28/18 at 1126, Until Wed01/28/18 at 1253, Anesthesia Intra-op 01/28/2018 12:28 PM JANITOR HELPER 50 mcg fentaNYL citrate PF (SUBLIMAZE) Given injection INTRA-PROCEDURE MED, Starting Wed01/28/18 at 1121, Until Wed01/28/18 at 1253, Anesthesia Intra-op 100 mcg Given 01/28/2018 11:21 AM JANITOR HELPER 01/28/2018 12:28 PM JANITOR HELPER 30 mg ketorolac (TORADOL) injection Given INTRA-PROCEDURE MED, Starting Wed01/28/18 at 1228, Until Wed01/28/18 at 1253, Anesthesia Intra-op 01/28/2018 11:56 AM JANITOR HELPER 4 mg ondansetron (ZOFRAN) injection Given Intravenous, INTRA-PROCEDURE MED, Starting Wed01/28/18 at 1156, Until Wed01/28/18 at 1253, Anesthesia Intra-op 01/28/2018 11:21 AM JANITOR HELPER 100 mg propofol (DIPRIVAN) injection Given INTRA-PROCEDURE MED, Starting Wed01/28/18 at 1121, Until Wed01/28/18 at 1253, Anesthesia Intra-op 01/28/2018 11:21 AM JANITOR HELPER 50 mg rocuronium (ZEMURON) injection Given Intravenous, INTRA-PROCEDURE MED, Starting Wed01/28/18 at 1121, Until Wed01/28/18 at 1253, Anesthesia Intra-op 01/28/2018 12:21 PM JANITOR HELPER 150 mg sugammadex (BRIDION) injection Given Intravenous, INTRA-PROCEDURE MED, Starting Wed01/28/18 at 1221, Until Wed01/28/18 at 1253, Anesthesia Intra-op in this encounter
--- OUTSIDE RECORDS SUMMARY | 2018-03-30 14:13 | XMS REPORT | Encounter Summary ---
Author Author [facility] Organization [facility] Address Unknown Phone Unavailable Care Team Providers Care Whizzer Hand Name Role Phone SebMai Unavailable Unavailable Samir Lopez MD Unavailable Unavailable Samara Lugo RN Unavailable Unavailable Flavio Jackson MD PCP Reason for Visit * Auth/Cert Referred By Contact Referred To Contact Status Reason Specialty Diagnoses / Procedures Diagnoses DEBILITY Encounter Details Care Team Description Date Type Department Beatriz Ortiz MD [address] [facility] [address] [place] [address] Debility 12/31/2017 Hospital R ACUTE REHAB UNIT - Encounter [id number] [facility] 01/21/2018 [place] [address] Social History Date Tobacco Use Types Packs/Day Years Used Quit: 11/30/2017 Former Smoker Cigarettes 2 30 Smokeless Tobacco: Former Chew User Comments: down to 1/4 pack /day or less Alcohol Use Drinks/Week oz/Week Comments Yes 6 per week Sex Assigned at Date Recorded Not on file Industry Job Start Date Occupation Not on file Not on file Not on file Travel End Travel History Travel Start No recent travel history available. as of this encounter Last Filed Vital Signs Time Taken Vital Sign Reading 01/21/2018 5:00 PM STOCK GRADER Blood Pressure 104/59 01/21/2018 5:00 PM STOCK GRADER Pulse 111 01/21/2018 5:00 PM STOCK GRADER Temperature 36.8 C (98.2 F) - Respiratory Rate - 01/21/2018 5:00 PM STOCK GRADER Oxygen Saturation 91% - Inhaled Oxygen - Concentration 01/21/2018 4:21 AM STOCK GRADER Weight 71 kg (156 lb 8 oz) 12/31/2017 1:20 PM STOCK GRADER Height 182.9 cm (6' 0.01") 01/21/2018 4:21 AM STOCK GRADER Body Mass Index 21.22 in this encounter Functional Status Date of Assessment Functional Status Response 01/21/2018 Does the patient have a hearing impairment: [...] Discharge Summaries * Beatriz Ortiz MD - 01/21/2018 6:16 PM STOCK GRADER ATTESTATION: I have reviewed the discharge summary and agree with the resident's documentation. The patient was transferred back to acute care hospital for further management of hydropneumothorax and loculated pneumonia found on CT chest. He had been progressing well towards a goal of home discharge, but had recurrent fevers, dypsnea, and oxygen desaturations over last few days. ID and Pulmonary were consulted and assisted in management. Once he is more medically stable, please have PT/OT work with him again and can reconsult PM&R if he still has functional goals necessitating return to acute rehab unit. Staff name: Beatriz rOtiz MD Physician Discharge Summary Name: Darrius Salas Date Of : 1955 Age: 62 years Admit date: 01/21/2018 Discharge date: 01/21/2018 Attending Physician: Dr. Beatriz Ortiz Service: Med ICU 3 - 0103 Physician Summary completed by: Nela Santoro MD Reason for hospitalization: Debility due to Pneumonia Significant PMH: Past Medical History: Diagnosis Date AF (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) ([facility]) 08/15/2012 CAD (coronary artery disease) 08/15/2012 CHF (congestive heart failure) ([facility]) 08/15/2012 COPD (chronic obstructive pulmonary disease) ([facility]) 08/15/2012 HLD (hyperlipidemia) 08/15/2012 HTN (hypertension) 08/15/2012 LA thrombus 08/15/2012 jail current use of anticoagulant 08/15/2012 S/P ablation of 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 05/04/2013 05/04/[address] fib ablation [address] Dr. Godfrey. Allergies: Patient has no known allergies. Admission Physical Exam notable for: MS: Root Right Left Shoulder Abduction C5 4 4 Elbow Flexion C5 4 4 Elbow Extension C7 4 4 Wrist Extension C6 5 5 Finger Flexion C8 5 5 Finger Abduction T1 5 5 Hip Flexion L2 2 2 Knee Flexion L5/S1 4 4 Knee Extension L3 4 4 Dorsiflexion L4 4 4 Plantarflexion S1 4 4 EHL Extension L5 4 4 Admission Lab/Radiology studies notable for: RBC 3.13 (L) 12/31/2017 05:00 AM HGB 11.0 (L) 12/31/2017 05:00 AM HCT 33.2 (L) 12/31/2017 05:00 AM MCV 106.2 (H) 12/31/2017 05:00 AM MCH 35.1 (H) 12/31/2017 05:00 AM RDW 24.1 (H) 12/31/2017 05:00 AM PLTCT 452 (H) 12/31/2017 05:00 AM Radiology: - 12/31/17 CXR shows no noticeable change in pleural effusion - 12/24/17 AP Abdomen: Continued moderate distention of the stomach. No radiographic evidence of small bowel obstruction. See same day chest radiograph for thoracic findings. Brief Hospital Course: The patient was admitted and the following issues were addressed during this hospitalization: (with pertinent details). Mr. Darrius Salas is a 62 yo [...] s/p chest tube placement. Patient with multi-organism pneumonia on IV cefepime, managed by ID, necrotizing aspergillosis, now with worsening tachycardia, leukocytosis, and loculated hydropneumothorax and was sent back to acute care. Evaluation FIMS Current FIMS Eating FIM: 1 - Total assistance, tube feeding for nutrition and/or hydration( tube feeds at night) Grooming FIM: 3 - Moderate assistance, patient performs 50-74% or more of grooming/bathing/dressing/toileting tasks Bathing FIM: 1 - Total assistance, requires 2 staff to assist Dressing - Upper Body FIM: 4 - Minimal contact assistance, patient performs 75% or more of grooming/bathing/dressing/toileting tasks Dressing - Lower Body FIM: 1 - Total assistance, requires 2 staff to assist Toileting FIM: 6 - Modified independence - Device Bladder FIM: 5 - Emptying device by staff Bowel FIM: 6 - No bowel movement, medication Transfers FIM: 1 - Total assistance, two or more people Toilet Transfers FIM: 1 - Total assistance, two or more people Tub Transfers FIM: 1 - Total assistance, two or more people Shower Transfers FIM: 1 - Total assistance, two or more people Gait: 0 - Activity did not occur - Unable due to motor control Wheelchair FIM: 0 - Acitivity did not occur - Unable due to motor control Stairs FIM: 0 - Activity did not occur - Safety Comprehension FIM: 5 - Standby prompting. Understands abstract and/or basic information greater than 90% of the time, prompting less than 10% Expression FIM: 5 - Standy prompting - Able to express abstract and/or basic information >90% of the time, prompting <10% Social Interaction FIM: 6 - Modified independence - Able to interact in most situations and no prompting required Problem Solving FIM: 4 - Minimal prompting - Able to solve routine problems 75- 90% Memory FIM: 5 - Supervision - Able to recognize people frequently encountered, remembers daily routines, responds to requests of others requiring prompting only under stressful or unfamiliar conditions, no more than 10% of time Eating FIM: 7 - Complete independence Grooming FIM: 5 - Supervision Bathing FIM: 5 - Supervision Dressing - Upper Body FIM: 5 - Supervision Dressing - Lower Body FIM: 3 - Moderate assistance, patient performs 50-74% or more of grooming/bathing/dressing/toileting tasks Toileting FIM: 5 - Supervision Bladder FIM: 5 - Emptying device by staff Bowel FIM: 6 - No bowel movement, medication Transfers FIM: 4 - Minimal assistance, patient performs 75% or more of transferring tasks Toilet Transfers FIM: 4 - Minimal assistance, patient performs 75% or more of transferring tasks Tub Transfers FIM: 1 - Total assistance, two or more people Shower Transfers FIM: 3 - Moderate assistance, patient performs 50-74% of transferring tasks (lifting required) Gait: 4 - Contact guard assistance, greater than or equal to 150 feet Wheelchair FIM: 2 - Maximal assistance, patient expends 25-49% effort, greater than or equal to 50-149 feet Stairs FIM: 2 - Maximal assistance, patient expends 25-49% effort, greater than or equal to 4-6 stairs Comprehension FIM: 7 - Complete independence Expression FIM: 7 - Complete independence - Able to express complex/abstract ideas clearly and fluently Social Interaction FIM: 7 - Complete independence Problem Solving FIM: 7 - Complete independence Memory FIM: 7 - Complete independence - Recognizes people frequently encountered , remembers daily routines, executes requests of other without need for repetition Physical Therapy Current Recommendations/Plan/Goals Plan Comments: step/stair training (4 inch and work up); nustep, transfer training, proximal strengthening, ambulation distance and endurance Recommendations PT Discharge Recommendations: Home with Assistance, Home Health Setting Equipment Recommendations: Walker - Roller Comments: Patient requires the use of a four wheeled walker with a seat to complete ADLs in the home including meal preparation, ambulation the bathroom for toileting, bathing and grooming, and safe home mobility. Patient is unable to complete these ADLs with a cane or crutch and can safely use the walker. He will require a 4 wheeled walker with a seat due to significant functional endurance issues Expected Discharge Date: 01/28/18 Weekly Goals Weekly Bed Mobility Goals: Patient will perform sit to supine with, Patient will perform supine to sit with Patient will perform sit to supine with: Minimum assistance, Achieved(new goal; modified independent) Patient will perform supine to sit with: Minimum assistance, Achieved(new goal; modified independent) Weekly Transfer Goals: Patient will complete sit to stand transfer with, Patient will complete stand to sit transfer with, Patient will complete stand pivot transfer with Patient will complete sit to stand transfer with: Moderate assistance, Progressing Patient will complete stand to sit transfer with: Moderate assistance, Progressing Patient will complete stand pivot transfer with: Moderate assistance, Progressing Weekly Ambulation/Stairs Goals: Patient will ambulate Patient will ambulate: 150 feet, Minimum assistance(new goal) Weekly Wheelchair Goals: Patient will propel manual wheelchair on level surfaces with Patient will propel manual wheelchair on level surfaces with: Minimum assistance , Achieved Goal(s) for the Stay Patient will perform: household mobility, at ambulation level, Minimum assistance, with device Occupational Therapy Current Recommendations/Plan/Goals Recommendations OT Discharge Recommendations: Home with Home Health OT Equipment Recommendations: Bath tub bench(Tub transfer bench) Expected Discharge Date: 01/28/18 Recommendations OT Discharge Recommendations: Home with Home Health OT Equipment Recommendations: Bath tub bench(Tub transfer bench) Expected Discharge Date: 01/28/18 Goals for the stay Pt will perform basic care and transfer with: Stand by assistance, Roller walker level Condition at Discharge: Serious Discharge Diagnoses: Hospital Problems Active Problems CAD [...] of right pleural space (HCC) Surgical Procedures: None Significant Diagnostic Studies and Procedures: noted in brief hospital course Consults: ID and Pulmonary Patient Disposition: [facility] Patient instructions/medications: Activity as Tolerated It is [...] or concerns regarding your hospital stay. Call [phone] Discharging attending physician: BEATRIZ ORTIZ [[id number]] Regular Diet You have no dietary restriction. Please continue with a healthy balanced diet. Current Discharge Medication List START taking these medications Details albuterol (PROAIR HFA, VENTOLIN HFA, OR PROVENTIL HFA) 90 mcg/actuation inhaler Inhale two puffs by mouth into the lungs four times daily as needed for Wheezing or Shortness of Breath. Shake well before use. PRESCRIPTION TYPE: No Print cefepime (MAXIPIME) 1 g/10 mL 1 g in dextrose 5% (D5W) 5 % 100 mL IVPB (MB+) Administer one g through vein every 8 hours. PRESCRIPTION TYPE: No Print dextran 70/hypromellose (GENTEAL TEARS; BION TEARS) 0.1/0.3 % dpet ophthalmic solution Apply one drop to both eyes every 6 hours as needed for Dry Eyes. PRESCRIPTION TYPE: No Print HYDROcodone/acetaminophen (NORCO) 5/325 mg tablet Take one tablet by mouth every 6 hours as needed Refills: 0 PRESCRIPTION TYPE: No Print magnesium oxide (MAG-OX) 400 mg (241.3 mg magnesium) tablet Take one tablet by mouth twice daily. Qty: 180 tablet, Refills: 3 PRESCRIPTION TYPE: Normal metoprolol tartrate (LOPRESSOR) 25 mg tablet Take one-half tablet by mouth twice daily. Qty: 180 tablet, Refills: 3 PRESCRIPTION TYPE: Normal micafungin (MYCAMINE) 100 mg/5 mL 100 mg, micafungin (MYCAMINE) 50 mg/5 mL 50 mg in sodium chloride 0.9% (NS) 0.9 % 110 mL IVPB Administer 150 mg through vein every 24 hours. PRESCRIPTION TYPE: No Print pantoprazole DR (PROTONIX) 40 mg tablet Take one tablet by mouth daily. Qty: 90 tablet, Refills: 3 PRESCRIPTION TYPE: No Print vitamins, multi w/minerals 9 mg iron-400 mcg tab Take one tablet by mouth daily. PRESCRIPTION TYPE: No Print CONTINUE these medications which have been CHANGED or REFILLED Details fluticasone (FLONASE) 50 mcg/actuation nasal spray Apply two sprays to each nostril as directed daily. Shake bottle gently before using. Qty: 48 g, Refills: 3 PRESCRIPTION TYPE: Normal CONTINUE these medications which have NOT CHANGED Details acetaminophen (TYLENOL) 160 mg/5 mL oral solution 20.3 mL by Per NG tube route every 4 hours as needed. Max of 4,000 mg of acetaminophen in 24 hours. Qty: 240 mL, Refills: 0 PRESCRIPTION TYPE: No Print ascorbic acid (VITAMIN C) 500 mg tablet one tablet by Per NG tube route daily. Qty: 90 tablet, Refills: 3 PRESCRIPTION TYPE: No Print budesonide/formoterol (SYMBICORT) 160/4.5 mcg HFAA inhalation Inhale 2 Puffs by mouth twice daily. PRESCRIPTION TYPE: Historical Med cholecalciferol (VITAMIN D-3) 400 unit tab tablet Take one tablet by mouth daily. PRESCRIPTION TYPE: No Print digoxin (LANOXIN) 250 mcg tablet one tablet by Per NG tube route daily. Qty: 90 tablet, Refills: 3 PRESCRIPTION TYPE: No Print furosemide (LASIX) 20 mg tablet Take three tablets by mouth twice daily. Qty: 90 tablet, Refills: 3 PRESCRIPTION TYPE: No Print guaiFENesin (ROBITUSSIN) 100 mg/5 mL oral solution 10 mL by Per NG tube route every 4 hours. Refills: 0 PRESCRIPTION TYPE: No Print isavuconazonium sulfate (CRESEMBA) 186 mg capsule Take two capsules by mouth daily. For at least 3 months PRESCRIPTION TYPE: No Print lidocaine (LIDODERM) 5 % topical patch Apply one patch to two patches topically to affected area every 24 hours. Apply patch for 12 hours, then remove for 12 hours before repeating. Qty: 30 patch PRESCRIPTION TYPE: No Print melatonin 5 mg tab one tablet by Per NG tube route at bedtime as needed. PRESCRIPTION TYPE: No Print phenol (CLORASEPTIC; PHENASEPTIC) 1.4 % spra Take two sprays by mouth or throat as directed as Needed. Refills: 0 PRESCRIPTION TYPE: No Print rivaroxaban (XARELTO) 20 mg tab tablet Take 20 mg by mouth daily with dinner. PRESCRIPTION TYPE: Historical Med thiamine mononitrate 100 mg tablet one tablet by Per NG tube route daily. PRESCRIPTION TYPE: No Print tiotropium (SPIRIVA) 18 mcg capsule for inhaler Inhale 18 mcg by mouth daily. PRESCRIPTION TYPE: Historical Med valGANciclovir (VALCYTE) 450 mg tablet Take two tablets by mouth twice daily with meals. For 4-6 more weeks. Qty: 30 tablet, Refills: 1 PRESCRIPTION TYPE: No Print vitamin A & D oint Apply topically to affected area daily. Apply A&D ointment to wounds and cover with a Biatain foam. Dressing changes daily and PRN for soiling. PRESCRIPTION TYPE: No Print vitamins, multi w/iron (CERTAVITE) oral solution 15 mL by Per NG tube route daily. Refills: 12 PRESCRIPTION TYPE: No Print The following medications were removed from your list. This list includes medications discontinued this stay and those removed from your prior med list in our system albuterol 0.5% (PROVENTIL; VENTOLIN) 2.5 mg/0.5 mL nebulizer solution hydrOXYzine (ATARAX) 25 mg tablet metoprolol(#) (LOPRESSOR) 10 mg/mL oxyCODONE (ROXICODONE) 1 mg/mL oral solution pancrelipase 20,000 Units/ sodium bicarbonate 650 mg(#) (KU CLOG DESTROYER) 20, 000 Unit/ 650 mg cap Scheduled appointments: Mar 10, 2018 9:00 AM STOCK GRADER Return Patient with Melinda Escobar MD [facility] ([facility]) [facility] Level [address] [place] [phone] Pending items needing follow up: chest tube Signed: Nela Santoro MD 01/24/2018 cc: Primary Care Physician: Flavio Jackson Verified Referring physicians: No ref. provider found Additional provider(s): K GRADER in this encounter Discharge Instructions * Rehab Team Physician* Nela Santoro MD - 01/05/2018 9:49 AM STOCK GRADER 62 yo M with PMH COPD on 2-3L QHS, tobacco use, afib on xarelto, CAD s/p PCI ( 2012) who presented from OSH 11/13/17 in acute on chronic respiratory failure 2/ 2 legionella PNA with inability to wean off vent. OSH course complicated by septic shock, acute on chronic respiratory failure requiring intubation x2, afib with RVR s/p failed cardioversion.Treated for Legionella, Tamar Glabrata , necrotizing aspergillosis PNA. On micafungin IV, Cresemba 372mg QD, valganciclovir 900mg BID. --Rehab dx: Debility - Continuing lasix 60mg BID, guaifenesin 600mg BID - Afib RVR, CAD s/p PCI 03/2012, HFpEF, on lasix 60mg BID, digoxin 250mcg QD, metoprolol 12.5mg BID, xarelto 20mg QD - Elevated Alk phos/LFTs are improving, will CTM - Encourage IS, flutter valve, and cough assist - received peripheral nerve block, ok to d/c cough assist now on 2-3L (baseline) . May be able to discharge with only cresemba PO per ID. New findings on CXR of worsening pneumonia. ID involved and on cefepime for now. K GRADER * Rehab Team PT Barriers and Concerns* Lake Flores, PT - 01/04/2018 12:51 PM STOCK GRADER Nausea and general malaise impacting participation (especially during AM session after meds and food) 2 lpm O2 with bathing up to 4lpm Continues to require moderate-minimal lift assist from lower surfaces ( toileting and shower) Does not tolerate much time up in chair K GRADER * Rehab Team PT Progression* Lake Flores PT - 01/04/2018 12:52 PM STOCK GRADER Nearing stand by assist with 4-wheel walker Improved activity tolerance, now tolerating 10 minutes of functional activity in standing 2 lpm at rest and with most activity (bathing) Improved pain management Nearing stand by assist with all ADLs (LB dressing) Performing 4 inch step up and downs; increasing ambulation distance K GRADER * Rehab Team Occupational Therapy Barriers and Concerns* Ld Cunningham OT - 01/18/2018 8:27 AM STOCK GRADER K GRADER * Rehab Team Speech Therapy Barriers and Concerns* Nela Barragan - 01/04/2018 7:59 AM STOCK GRADER Pt currently tolerating regular/thin diet with consistent use of strategies. Continuing EMST protocol to improve secretion management - requires minimal assist. Addressing respiratory support for speech. Pt may benefit from ST services at d/c. K GRADER * Rehab Team Occupational Therapy Progression* Ld Cunningham, OT - 01/18/2018 8:28 AM STOCK GRADER K GRADER * Rehab Team Speech Therapy Progression* Nela Barrgaan - 01/04/2018 8:00 AM STOCK GRADER Significant improvement in swallow function - minimal pharyngeal dysphagia per FEES last week. Improved secretion expectoration and cough strength. K GRADER * Rehab Team [employer] Worker/Case Management Support/Ongoing Services/DME* Adair Coburn - 01/05/2018 9:26 AM STOCK GRADER Living Situation Prior to Admission Living Arrangements Type of Residence: Home, independent Living Arrangements: Spouse/significant other Bathroom Shower / Tub: Tub Only (Pt reports he currently has a tub only, but family may remodel to add a walk in shower) How many levels in the residence?: 1 Can patient live on one level if needed?: Yes Does residence have entry and/or side stairs?: Yes (5 entry steps with hand rail ) Assistance needed prior to admit or anticipated on discharge: No Who provides assistance or could if needed?: Pt's Rachel, adult children Kalyan Thayer, Viridiana Are they in good health?: Yes Can support system provide 24/7 care if needed?: Maybe Pt lives with his Racehl in a single level home with a [...] support and she cares 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 Rachel may start providing daycare at her and pt's home, so that she is able to assist pt as needed. Pt's adult children JeovanyKalyan gan, and Viridiana all live in [place] (about 2 hours from pt) and work [employer] crm developer, but pt's son's have flexible schedules and can assist intermittently. Pt also has two sisters in [place], Irlanda and Michelle, who can assist intermittently. Pt feels his family can provide consistent and physical assistance, as needed. Pt was on 2-3 liters of nocturnal oxygen prior to admission, provided by [facility]. Pt also owns a standard walker. K GRADER * Rehab Team DC Planning* Ld Cunningham OT - 01/04/2018 8:00 AM STOCK GRADER Plan Home with family, outpatient PT/OT/ST DME 4-wheeled walker, tub transfer bench, Bed rail (if needed) K GRADER * Rehab Team Weekly Goals* Lake Flores, PT - 01/04/2018 12:53 PM STOCK GRADER Up to chair for all meals (and up for 1 hour around meal time) Ambulate to bathroom with all staff with 4-wheeled walker K GRADER in this encounter Medications at Time of Discharge Start Date End Date Medication Sig Dispensed Refills 12/31/2017 02/02/2018 acetaminophen (TYLENOL) 20.3 mL by 240 mL 0 160 mg/5 mL oral solution Per NG tube route every 4 hours as needed. Max of 4,000 mg of acetaminophen in 24 hours. 02/02/2018 02/21/2018 acetaminophen (TYLENOL) Take two 0 [...] tablet Per NG tube route daily. 02/02/2018 budesonide/formoterol Inhale 2 0 (SYMBICORT) 160/4.5 mcg Puffs by HFAA inhalation mouth twice daily. 01/21/2018 02/02/2018 cefepime (MAXIPIME) 1 Administer 0 g/10 mL 1 g in dextrose one g through 5% (D5W) 5 % 100 mL IVPB vein every 8 (MB+) hours. 01/01/2018 02/21/2018 cholecalciferol (VITAMIN Take one 0 D-3) 400 unit tab tablet tablet by mouth daily. 01/21/2018 02/21/2018 dextran 70/hypromellose Apply one 0 (GENTEAL TEARS; BION drop to both TEARS) 0.1/0.3 % dpet eyes every 6 ophthalmic solution hours as needed for Dry Eyes. 02/02/2018 02/21/2018 digoxin (LANOXIN) 125 mcg Take one 90 tablet 3 tablet tablet by mouth daily. 01/01/2018 02/02/2018 digoxin (LANOXIN) 250 mcg one tablet by 90 tablet 3 tablet Per NG tube route daily. 02/03/2018 02/21/2018 enoxaparin (LOVENOX) 40 Inject 0.4 mL 10 Syringe 3 mg injection syringe under the skin daily. 01/22/2018 02/21/2018 fluticasone (FLONASE) 50 Apply two 48 g 3 mcg/actuation nasal spray sprays to each nostril as directed daily. Shake bottle gently before using. 12/31/2017 02/21/2018 furosemide (LASIX) 20 mg Take three 90 tablet 3 tablet tablets by mouth twice daily. 12/31/2017 02/02/2018 guaiFENesin (ROBITUSSIN) 10 mL by Per 0 100 mg/5 mL oral solution NG tube route every 4 hours. 02/02/2018 02/21/2018 guaiFENesin LA (MUCINEX) Take one 180 tablet 0 600 mg tablet tablet by mouth twice daily. 01/21/2018 02/02/2018 HYDROcodone/acetaminophen Take one 0 (NORCO) 5/325 mg tablet tablet by mouth every 6 hours as needed 12/31/2017 02/21/2018 isavuconazonium sulfate Take two 0 [...] mg tablet tablet by mouth twice daily. 01/22/2018 02/02/2018 micafungin (MYCAMINE) 100 Administer 0 mg/5 mL 100 mg, 150 mg micafungin (MYCAMINE) 50 through vein mg/5 mL 50 mg in sodium every 24 chloride 0.9% (NS) 0.9 % hours. 110 mL IVPB 02/02/2018 02/21/2018 ondansetron (ZOFRAN) 4 mg Take [...] every 6 100 mL IVPB (MB+) hours. 02/02/2018 rivaroxaban (XARELTO) 20 Take 20 mg by 0 mg tab tablet mouth daily with dinner. 02/02/2018 02/21/2018 senna (SENOKOT) 8.6 mg Take two 90 tablet 3 tablet tablets by mouth twice daily. 01/01/2018 02/21/2018 thiamine mononitrate 100 one tablet by 0 mg tablet Per NG tube route daily. 02/02/2018 tiotropium (SPIRIVA) 18 Inhale 18 mcg 0 mcg capsule for inhaler by mouth daily. 02/02/2018 02/21/2018 umeclidinium-vilanterol Inhale one 60 each 11 (ANORO ELLIPTA) 62.5-25 puff by mouth mcg/actuation inhaler into the lungs daily. 12/31/2017 02/02/2018 valGANciclovir (VALCYTE) Take two 30 tablet 1 450 mg tablet tablets by mouth twice daily with meals. For 4-6 more weeks. 01/01/2018 02/21/2018 vitamin A & D oint Apply 0 topically to affected area daily. Apply A&D ointment to wounds and cover with a Biatain foam. Dressing changes daily and PRN for soiling. 12/31/2017 02/02/2018 vitamins, multi w/iron 15 mL by Per 12 (CERTAVITE) oral solution NG tube route daily. 01/22/2018 02/21/2018 vitamins, multi Take one 0 w/minerals 9 mg iron-400 tablet by mcg tab mouth daily. as of this encounter Progress Notes * Zelda Almanza, RN - 01/21/2018 6:16 PM STOCK GRADER Darrius Montero Josue discharged on 01/21/2018. . Discharge instructions reviewed with Patient Valuables returned: Clothing, blankets, phone, ipad Home medications: N/A . Functional assessment at discharge complete: yes Pt left via transport to [facility] K GRADER * Nela Barragan - 01/21/2018 10:15 AM STOCK GRADER SPEECH-LANGUAGE PATHOLOGY NO TREATMENT NOTE The patient was not seen due to: Patient ill. Nurse at bedside - pt reports inability to participate this morning secondary to feeling sick. See separate nurse and physician notes for details of recent hours. Reportedly requiring increased O2 this AM. Will make up time as able. Attempted to see patient 1 time. 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 Darrius Salas is a 62 [...] placement, thoracentesis s/p chest tube placement. He now presents to IRF with debility warranting PT/OT/STATE TROOPER therapies. Rehabilitation Plan Rehabilitation: Patient will continue with comprehensive therapies including physical therapy, occupational therapy, speech & language pathology, specialized rehab nursing, neuropsychology and physiatry oversight. Goals: SBA at household mobility Tentative discharge date: 01/28/18 Recommended therapy after discharge: Home health vs outpatient PT/OT/STATE TROOPER Recommended equipment: Most likely RW, tub transfer bench, bed rail Daily Functional Update: Transfers Device Sit to Stand Transfer: Assistive Device: 4-Wheeled Walker (01/20/2018 3:36 PM) No Data Recorded Gait Device Assist Required Distance Gait: Assistive Device: 4-Wheeled Walker (01/20/2018 3:36 PM) No Data Recorded Gait Distance: 300 feet (01/20/2018 3:36 PM) Standing Balance Static Dynamic No Data Recorded No Data Recorded Toileting Assist Required Equipment Toilet Transfer Toileting Assist: Stand By Assist (01/20/2018 8:00 AM) Toileting Equipment: Commode - 3 in 1 padded (01/20/2018 8:00 AM) No Data Recorded Dressing Lower Body LE Dressing Assist: Stand By Assist (01/21/2018 8:00 AM) Debility secondary to acute on chronic hypoxic respiratory failure Legionella pneumonia (PNA), invasive necrotizing aspergillosis PNA, BAL with positive HSV & CMV PNA Decreased pulmonary reserve Generalized weakness Decreased endurance Impaired mobility and ADLs - Baseline O2 2-3 L QHS, currently tolerating 2L NC - s/p x3 intubation/extubations - s/p PEA arrest (extubated 11/24) - s/p treatment with linezolid, zosyn - Immunology followed across street for multiple opportunistic infxs - 01/05: s/p pecs and anterior scalene peripheral nerve block by acute anesthesia pain service > 01/16 sputum pos for gram neg rods & gram pos cocci, light growth of proteus, currently on rocephin, Blood cultures NGTD > ID following for continuation of care, updated on WBC count of 19.4, Incr 02 requirement with drop in sat to 83% with exertion, BP 100/65, no further recommendations at this time. Will page RT for treatments > CMV quant-blood every Wednesday, CMP every Wednesday > Continue antibiotics including micafungin IV, Cresemba 372mg QD , valganciclovir 900mg BID > Can likely stop micafungin at discharge, will continue at least 3 months cresemba, 4-6wks valganciclovir. May be able to discharge with only cresemba PO per ID. > Continue aggressive pulmonary hygiene with Aerobika and IS, cough assist > Consult PT/OT Right sided pleural effusion COPD - on 2-3L QHS at baseline - s/p RR 12/16 for incr 02 requirement, thoracentesis 1800cc exudative fluid - s/p chest tube removal 12/29 - 01/05: s/p pecs and anterior scalene peripheral nerve block by acute anesthesia pain service > Continue albuterol nebs Q4H PRN, atrovent nebs Q4H PRN > Continue HEAD START COORDINATOR Symbicort BID, flonase BID, Spiriva daily > Continue lasix 60mg BID, guaifenesin LA 600mg BID > Patient will need exercise ox and overnight ox prior to discharge Paroxysmal Atrial Fibrillation with RVR CAD s/p PCI 03/2012 Chronic HFpEF HTN HLD - s/p ablation 2013 - Failed cardioversion at OSH - Previously on amiodarone, d/c'd due to LFTs > Continue lasix 60mg BID, digoxin 250mcg QD, metoprolol 12.5mg BID, and xarelto 20mg QD > Holding HEAD START COORDINATOR Coreg, Cardizem, Vasotect, Lipitor > Continue daily weights, CTM Nausea/vomiting: zofran scheduled TID, decrease pain meds as able Elevated Alk phos - LFTs WNL - GI consulted across street - 12/20/17: CT A/P w/ contrast without inflammatory mass, ascites, or bowel obstruction. However, fusiform infrarenal abdominal aortic aneurysm measuring up to 4.9 cm in maximum diameter. > Continue nutritional support with calorie count > Consult hepatology if any issues arise > CMP every Wednesday, alk phos continues to improve, AST/ALT WNL > F/u in hepatology clinic on discharge Minimal Pharyngeal Dysphagia - Markedly improved FEEs 01/13, off TF - PEG tube removed 01/19 > Continue regular solids/thin liquids > Consult dietitian and STATE TROOPER (STATE TROOPER also working on cough therapy) Opioid induced constipation: continue docusate 200mg BID, miralax BID, senna 2 tab BID Macrocytic anemia, stable, CTM with CBC Sleep disturbance: melatonin 5mg QHS PRN GERD: PPI Hypokalemia: continue potassium and magnesium replacement Pain Management: Tylenol PRN and lidocaine patches, oxycodone 5mg Q4Hr PRN Skin: There is / are 1 pressure sore(s) including coccyx/buttocks. Continue vit a & d ointment Bowel: continent of bowel Bladder: continent of bladder, passed BVIs x3 until <125ml and ISC for >300ml Nutrition: Current diet: regular Mental Health: consult neuropsychology to provide support / counseling DVT Prophylaxis: Xarelto Code status: DNAR-FI (no CPR or intubation) Nela Santoro D.O., M.B.A. Physical Medicine and Rehabilitation, PGY-2 Pager [phone] Subjective Darrius Salas is a 62 y.o. M seen in his room this morning. He continued to have chills throughout the day yesterday and overnight became diaphoretic. Camila WBC up to 19 BP 100/65 and oxygen saturations in the low 80s requiring increased o2. Paged ID. ID has no further recommendations at this time. Rt paged for treatments . Objective Vital Signs: Last Filed Vital Signs: 24 Hour Range BP: 100/65 (01/21 853) Temp: 36.3 C (97.4 F) (01/21 853) Pulse: 60 (01/21 913) Respirations: 18 PER MINUTE (01/21 913) SpO2: 90 % (01/21 913) O2 Delivery: Nasal Cannula (01/21 853) BP: (100-150)/(57-80) Temp: [36.3 C (97.4 F)-38.3 C (100.9 F)] Pulse: [59-129] Respirations: [18 PER MINUTE-22 PER MINUTE] SpO2: [83 %-99 %] O2 Delivery: Nasal Cannula Intensity Pain Scale (Self Report): 8 (01/21/18 0545) Vitals: 01/19/18 0600 01/20/18 0511 01/21/18 0421 Weight: 72.3 kg (159 lb 4.8 oz) 72.8 kg (160 lb 7.9 oz) 71 kg (156 lb 8 oz) Intake/Output Summary: (Last 24 hours) Intake/Output Summary (Last 24 hours) at 01/21/2018 0924 Last data filed at 01/21/2018 0725 Gross per 24 hour Intake Output 900 ml Net -900 ml Stool Occurrence: 1 Oral Diet Order: Renal-Dialysis Patient Last Bowel Movement Date: 01/20/18 Lab: Results for orders placed or performed during the hospital encounter of (from the past 24 hour(s)) CBC CELLULAR THERAPEUTICS Collection Time: 01/21/18 5:35 AM # # Low-High White Blood Cells 19.4 (H) 4.5 - 11.0 K/UL RBC 2.94 (L) 4.4 - 5.5 M/UL Hemoglobin 10.2 (L) 13.5 - 16.5 GM/DL Hematocrit 31.0 (L) 40 - 50 % MCV 105.3 (H) 80 - 100 FL MCH 34.7 (H) 26 - 34 PG MCHC 33.0 32.0 - 36.0 G/DL RDW 17.9 (H) 11 - 15 % Platelet Count 412 (H) 150 - 400 K/UL MPV 7.5 7 - 11 FL BASIC METABOLIC PANEL CELLULAR THERAPEUTICS Collection Time: 01/21/18 5:35 AM # # Low-High Sodium 133 (L) 137 - 147 MMOL/L Potassium 3.2 (L) 3.5 - 5.1 MMOL/L Chloride 96 (L) 98 - 110 MMOL/L CO2 32 (H) 21 - 30 MMOL/L Anion Gap 5 3 - 12 Glucose 84 70 - 100 MG/DL Blood Urea Nitrogen 5 (L) 7 - 25 MG/DL Creatinine 0.43 0.4 - 1.24 MG/DL Calcium 8.5 8.5 - 10.6 MG/DL eGFR Non >60 >60 mL/min eGFR >60 >60 mL/min Physical Exam VS: BP 100/65 (BP Source: Arm, Left Upper) | Pulse 60 | Temp 36.3 C (97.4 F) | Ht 182.9 cm (72.01") | Wt 71 kg (156 lb 8 oz) | SpO2 (!) 90% | BMI 21.22 kg/m Gen: Alert, No Acute Distress, diaphoretic HEENT: Normocephalic, atraumatic, sclera anicteric, conjunctiva not injected, congestion, NC in place 3L Neck: Supple, no elevated JVP Heart: Tachycardic & regular Rhythm, No Murmur Lungs: Good inspiratory effort , upper airway sounds clear with bases, rhonchi noted in b/l bases Abdomen: Soft, non-tender, non-distended Skin: Warm, dry Psych: Pleasant mood Therapy Notes & Labs Reviewed. K GRADER Associated attestation - Tim Joiner MD - 01/21/2018 2:14 PM STOCK GRADER Rehabilitation Medicine Attending Physician Attestation: The patient is with noted, worsening leukocytosis with fever this AM. BP is stable, though persistent tachycardia. Clinically, the patient was reporting chills this AM, resolved with Tylenol. Will monitor vitals more closely and consider broadening antibiotic coverage. I personally performed gaytan portions of the history and exam. I discussed the case with the resident and agree with the resident's documentation of history, physical assessment and treatment plan unless otherwise noted. Thank you for allowing us to participate in the care of this patient. Tim Joiner MD 01/21/2018 2:11 PM Attending physician * aCryn Farah MD - 01/21/2018 9:15 AM STOCK GRADER Infectious Diseases Progress Note 01/21/2018 Admission Date: 12/31/2017 LOS: 21 days ASSESSMENT 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 - Via [facility] (11/04)- peripheral blood cultures -no growth, Sputum/ endotracheal- mixed bacterial gavin, few yeast (11/08) BAL/left upper lobe >1, 000 CFU/ML- Tamar Glabrata long-standing 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, with recent RVR, CAD, CHF - s/p ablation in 2013 - HEAD START COORDINATOR xarelto, diltiazem - was cardioverted unsuccessfully at OSH, treated with amio, dig load (?) and diltiazem - history of PCI to RCA in March 2012 CMV viremia 11/29/17. Not detected on first BAL, virus detected on 12/21/17 BAL. Significant debility P. mirabilis pneumonia 01/16/18 PLAN: 1. Recent fever and leukocytosis which improved from 01/16/18. Now again with fever, leukocytosis, increased O2 demand and chills. Recent blood cultures have been negative. 2. Repeat chest CT 3. Will change back to cefepime 4. F/u blood cultures. Repeat blood cultures from line and peripheral; has had PICC since Ocotober. 5. Cont PO valgancyclovir. Will likely need at least several more weeks of antiviral therapy. Low level detection currently, 01/17/18 CMV PCR not detected. 6. Cont cresemba+braden. May be able to discharge with only cresemba PO. 7. monitor labs for toxicity. 8. Will follow. Mr. Salas has complex disease requiring complex medical decision making for pneumonia, aspergillosis, therapeutic drug monitoring, resp failure. I reviewed the chart and interviewed and examined the patient and formulated the plan as above. Interval history: Darrius Salas is a 62 y.o. male. Had fever overnight. Clinically not doing well. +chills now. Feels ill. Tachycardic. WBC increased to 19k. plt increased. 01/16, 01/19/18 blood cultrres neg to date. +malaise. Now on 3L NC. +2L fluid balance. Having soft stool, but is on stool regimen. ABX: Antimicrobial Start date End date levaquin 11/15 11/28 meropenem 11/19 11/22 vanc 11/20 11/22 vori 11/23-11/24 Restart 11/3012/22/17 isavuconazole 11/24 11/30 cefepime 11/2712/02/17 acyclovir 11/27-12/11/17, 12/22/17 12/24/17 Estimated Creatinine Clearance: 121.8 mL/min (A) (based on SCr of 0.39 mg/dL (L) ). Zosyn 12/10/17- 12/17/17 linezolid 12/10/17 - 12/17/17 Cresemba + braden 12/22/17 Ganciclovir 12/24/17 Cefepime 01/16/18 --> rocephin 01/19/18 Medications Scheduled Meds: ascorbic acid (VITAMIN C) tablet 500 mg 500 mg Oral QDAY budesonide/formoterol (SYMBICORT HFA) 160/4.5 mcg inhalation 2 puff 2 puff Inhalation BID cefTRIAXone (ROCEPHIN) IVP 2 g 2 g Intravenous Q24H* cholecalciferol (VITAMIN D-3) tablet 400 Units 400 Units Oral QDAY digoxin (LANOXIN) tablet 250 mcg 250 mcg Oral QDAY docusate (COLACE) capsule 200 mg 200 mg Oral BID fluticasone (FLONASE) nasal spray 2 spray 2 spray Each Nostril QDAY furosemide (LASIX) tablet 60 mg 60 mg Oral BID(-) guaiFENesin LA (MUCINEX) tablet 600 mg 600 mg Oral BID isavuconazonium sulfate (CRESEMBA) capsule 372 mg 372 mg Oral QDAY() lidocaine (LIDODERM) 5 % topical patch 1-2 patch 1-2 patch Topical QDAY metoprolol tartrate (LOPRESSOR) tablet 12.5 mg 12.5 mg Oral BID micafungin (MYCAMINE) 150 mg in sodium chloride 0.9% (NS) 110 mL IVPB 150 mg Intravenous Q24H* ondansetron (ZOFRAN) tablet 4 mg 4 mg Oral TID w/ meals pantoprazole DR (PROTONIX) tablet 40 mg 40 mg Oral QDAY(21) polyethylene glycol 3350 (MIRALAX) packet 17 g 1 packet Oral BID rivaroxaban (XARELTO) tablet 20 mg 20 mg Oral QDAY w/breakfast senna (SENOKOT) tablet 2 tablet 2 tablet [...] Respiratory Meds:acetaminophen Q4H PRN, albuterol Q4H PRN, aluminum/ magnesium hydroxide Q4H PRN, bisacodyl QDAY PRN, dextran 70/hypromellose Q6H PRN , HYDROcodone/acetaminophen Q6H PRN, melatonin QHS PRN, milk of magnesia (CONC) Q4H PRN, pancrelipase 20,000 Units/ sodium bicarbonate 650 mg(#) PRN ([employer]ad [employer] Clerk from Rx), phenol PRN Objective Vital Signs: Last Filed Vital Signs: 24 Hour Range BP: 100/65 (01/21 853) Temp: 36.3 C (97.4 F) (01/21 853) Pulse: 60 (01/21 853) Respirations: 18 PER MINUTE (01/21 853) SpO2: 90 % (01/21 853) O2 Delivery: Nasal Cannula (01/21 853) BP: (100-150)/(57-80) Temp: [36.3 C (97.4 F)-38.3 C (100.9 F)] Pulse: [59-129] Respirations: [18 PER MINUTE-22 PER MINUTE] SpO2: [83 %-99 %] O2 Delivery: Nasal Cannula Intensity Pain Scale (Self Report): 8 (01/21/18 0545) Vitals: 01/19/18 0600 01/20/18 0511 01/21/18 0421 Weight: 72.3 kg (159 lb 4.8 oz) 72.8 kg (160 lb 7.9 oz) 71 kg (156 lb 8 oz) Physical Exam Gen: Alert, oriented, +discomfort, appears ill HEENT: EOMI, no subconjunctival hemorrhages CV: RRR Resp: Clear bilat, air exchange poor bilaterally R worse than L, +crackles Abd, soft, non tender, +BS Extremity: mild LE edema Derm: no rash/lesions appreciated Lab Review Full labs reviewed. Recent Labs 01/21/18 0535 WBC 19.4* Radiology and other Diagnostics Review: Radiology viewed and reports reviewed I have interviewed and examined this patient today and viewed the vital signs, laboratory, microbiology and radiology. MD Caryn Marlow MD Infectious Diseases Faculty Pager: [phone] K GRADER * Armando Roca RN - 01/21/2018 7:44 AM STOCK GRADER 2024 Patient with complaints of not feeling well and pain in his right side. VS- temp-100 BP-150/74,HR-129, RR22. Patient complains of being cold. Displays trembling under the covers but diaphoretic. No complaints of nausea. Tylenol and [place] given and vital signs repeated at 2127. BP and pulse within normal limits. Respirations remained 22. Patient request his fan be turned on at this time for comfort. Patient with 1 bladder accident during this shift. Blood pressure, temp and respirations returned to normal values but HR remained tachy (104-110) throughout shift. Patient continues to remain in good spirits but not feeling well. Sat up on side of bed to eat breakfast but decided laying down felt better. K GRADER * Armando Roca RN - 01/21/2018 6:56 AM STOCK GRADER Heart Failure Nursing Progress Note Admission Date: 12/31/2017 LOS: 21 days Admission Weight: 74.3 kg (163 lb 12.8 oz) Most recent weights (inpatient): Vitals: 01/19/18 0600 01/20/18 0511 01/21/18 0421 Weight: 72.3 kg (159 lb 4.8 oz) 72.8 kg (160 lb 7.9 oz) 71 kg (156 lb 8 oz) Weight change from previous day: -1.8kg Fluid restriction ordered: No Intake/Output Summary: (Last 24 hours) Intake/Output Summary (Last 24 hours) at 01/21/2018 0656 Last data filed at 01/21/2018 0547 Gross per 24 hour Intake Output 650 ml Net -650 ml Is patient incontinent No Anticipated discharge date: 01/28/18 Discharge goals: Not discussed this shift Daily Assessment of Patient Stated Goals: Short Term Goal Identified by patient (Short Term=during hospitalization): K GRADER * Zelda Almanza RN - 01/20/2018 5:58 PM STOCK GRADER Heart Failure Nursing Progress Note Admission Date: 12/31/2017 LOS: 20 days Admission Weight: 74.3 kg (163 lb 12.8 oz) Most recent weights (inpatient): Vitals: 01/17/18 0600 01/19/18 0600 01/20/18 0511 Weight: 75.5 kg (166 lb 7.2 oz) 72.3 kg (159 lb 4.8 oz) 72.8 kg (160 lb 7.9 oz) Weight change from previous day: -0.5kg Fluid restriction ordered: No Intake/Output Summary: (Last 24 hours) Intake/Output Summary (Last 24 hours) at 01/20/2018 1759 Last data filed at 01/20/2018 1636 Gross per 24 hour Intake 200 ml Output 700 ml Net -500 ml Is patient incontinent No Anticipated discharge date: 01/18 Discharge goals: Sleep in own bed Daily Assessment of Patient Stated Goals: Short Term Goal Identified by patient (Short Term=during hospitalization): Gain strength K GRADER * Nela Santoro MD - 01/20/2018 3:52 PM STOCK GRADER At 1632, notified of patient complaining of subjective chills with BP 109/66, Temp 99.8 and tachycardic to 122. Repeat VS at 1700. Spoke with ID - if patient fevers, recommending blood cultures without additional antibiotics. K GRADER * Beatriz Ortiz MD - 01/20/2018 9:59 AM STOCK GRADER ATTESTATION I personally performed the gaytan portions of the E/M visit, discussed case with resident and concur with resident documentation of history, physical exam, assessment, and treatment plan unless otherwise noted. Pt doing well today, pleased with progress in function, pain and breathing. Labs and VS reviewed and stable. BCX NGTD. Replace K+ and Mg today. On exam, lungs stable. PEG site c/d/i after removal yesterday. Per ID, pt on ceftriazone now. Will f/u on duration early next week. O2 needs stable, plan for repeat studies prior to d/c. Patient remains medically stable to participate in IRF program. 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 Darrius Salas is a 62 [...] placement, thoracentesis s/p chest tube placement. He now presents to IRF with debility warranting PT/OT/STATE TROOPER therapies. Rehabilitation Plan Rehabilitation: Patient will continue with comprehensive therapies including physical therapy, occupational therapy, speech & language pathology, specialized rehab nursing, neuropsychology and physiatry oversight. Goals: SBA at household mobility Tentative discharge date: 01/28/18 Recommended therapy after discharge: Home health vs outpatient PT/OT/STATE TROOPER Recommended equipment: Most likely RW, tub transfer bench, bed rail Daily Functional Update: Transfers Device Sit to Stand Transfer: Assistive Device: 4-Wheeled Walker (01/20/2018 8:00 AM) No Data Recorded Gait Device Assist Required Distance Gait: Assistive Device: 4-Wheeled Walker (01/19/2018 12:00 PM) No Data Recorded Gait Distance: 350 feet (01/19/2018 12:00 PM) Standing Balance Static Dynamic No Data Recorded No Data Recorded Toileting Assist Required Equipment Toilet Transfer Toileting Assist: Stand By Assist (01/20/2018 8:00 AM) Toileting Equipment: Commode - 3 in 1 padded (01/20/2018 8:00 AM) No Data Recorded Dressing Lower Body LE Dressing Assist: Stand By Assist (01/20/2018 8:00 AM) Debility secondary to acute on chronic hypoxic respiratory failure Legionella pneumonia (PNA), invasive necrotizing aspergillosis PNA, BAL with positive HSV & CMV PNA Decreased pulmonary reserve Generalized weakness Decreased endurance Impaired mobility and ADLs - Baseline O2 2-3 L QHS, currently tolerating 2L NC - s/p x3 intubation/extubations - s/p PEA arrest (extubated 11/24) - s/p treatment with linezolid, zosyn - Immunology followed across street for multiple opportunistic infxs - 01/05: s/p pecs and anterior scalene peripheral nerve block by acute anesthesia pain service > CXR concerning for worsening PNA, sputum pos for gram neg rods & gram pos cocci, on cefepime IV, ID following for ongoing plan. Will get CT chest at later date, Blood cultures NGTD > ID following for continuation of care > CMV quant-blood every Wednesday, CMP every Wednesday > Continue antibiotics including micafungin IV, Cresemba 372mg QD , valganciclovir 900mg BID > Can likely stop micafungin at discharge, will continue at least 3 months cresemba, 4-6wks valganciclovir. May be able to discharge with only cresemba PO per ID. > Continue aggressive pulmonary hygiene with Aerobika and IS, cough assist > Consult PT/OT Right sided pleural effusion COPD - on 2-3L QHS at baseline - s/p RR 12/16 for incr 02 requirement, thoracentesis 1800cc exudative fluid - s/p chest tube removal 12/29 - 01/05: s/p pecs and anterior scalene peripheral nerve block by acute anesthesia pain service > Continue albuterol nebs Q4H PRN, atrovent nebs Q4H PRN > Continue HEAD START COORDINATOR Symbicort BID, flonase BID, Spiriva daily > Continue lasix 60mg BID, guaifenesin LA 600mg BID > Patient will need exercise ox and overnight ox prior to discharge Paroxysmal Atrial Fibrillation with RVR CAD s/p PCI 03/2012 Chronic HFpEF HTN HLD - s/p ablation 2013 - Failed cardioversion at OSH - Previously on amiodarone, d/c'd due to LFTs > Continue lasix 60mg BID, digoxin 250mcg QD, metoprolol 12.5mg BID, and xarelto 20mg QD > Holding HEAD START COORDINATOR Coreg, Cardizem, Vasotect, Lipitor > Continue daily weights, CTM Nausea/vomiting: zofran scheduled TID, decrease pain meds as able Elevated Alk phos - LFTs WNL - GI consulted across street - 12/20/17: CT A/P w/ contrast without inflammatory mass, ascites, or bowel obstruction. However, fusiform infrarenal abdominal aortic aneurysm measuring up to 4.9 cm in maximum diameter. > Continue nutritional support with calorie count > Consult hepatology if any issues arise > CMP every Wednesday, alk phos continues to improve, AST/ALT WNL > F/u in hepatology clinic on discharge Minimal Pharyngeal Dysphagia - Markedly improved FEEs 01/13, off TF - PEG tube removed 01/19 > Continue regular solids/thin liquids > Consult dietitian and STATE TROOPER (STATE TROOPER also working on cough therapy) Opioid induced constipation: continue docusate 200mg BID, miralax BID, senna 2 tab BID Macrocytic anemia, stable, CTM with CBC Sleep disturbance: melatonin 5mg QHS PRN GERD: PPI Hypokalemia: continue potassium and magnesium replacement Pain Management: Tylenol PRN and lidocaine patches, oxycodone 5mg Q4Hr PRN Skin: There is / are 1 pressure sore(s) including coccyx/buttocks. Continue vit a & d ointment Bowel: continent of bowel Bladder: continent of bladder, passed BVIs x3 until <125ml and ISC for >300ml Nutrition: Current diet: regular Mental Health: consult neuropsychology to provide support / counseling DVT Prophylaxis: Xarelto Code status: DNAR-FI (no CPR or intubation) Nela Santoro D.O., M.B.A. Physical Medicine and Rehabilitation, PGY-2 Pager [phone] Subjective Darrius Salas is a 62 y.o. M seen in his room this morning, asleep. He has no complaints. No changes today. Blood cultures remain negative. No fevers on 2 L overnight. Continue to replete electrolytes. Objective Vital Signs: Last Filed Vital Signs: 24 Hour Range BP: 100/59 (01/21 916) Temp: 36.9 C (98.5 F) (01/20 455) Pulse: 97 (01/21 916) Respirations: 18 PER MINUTE (01/20 455) SpO2: 94 % (01/20 455) O2 Delivery: Nasal Cannula (01/20 455) BP: (100-134)/(59-86) Temp: [36.1 C (97 F)-37 C (98.6 F)] Pulse: [73-108] Respirations: [16 PER MINUTE-18 PER MINUTE] SpO2: [93 %-98 %] O2 Delivery: Nasal Cannula Intensity Pain Scale (Self Report): 4 (01/20/18 0910) Vitals: 01/17/18 0600 01/19/18 0600 01/20/18 0511 Weight: 75.5 kg (166 lb 7.2 oz) 72.3 kg (159 lb 4.8 oz) 72.8 kg (160 lb 7.9 oz) Intake/Output Summary: (Last 24 hours) Intake/Output Summary (Last 24 hours) at 01/20/2018 0959 Last data filed at 01/20/2018 0250 Gross per 24 hour Intake 360 ml Output 450 ml Net -90 ml Stool Occurrence: 1 Oral Diet Order: Renal-Dialysis Patient Last Bowel Movement Date: 01/20/18 Lab: Results for orders placed or performed during the hospital encounter of (from the past 24 hour(s)) CULTURE-BLOOD W/SENSITIVITY Collection Time: 01/19/18 3:47 PM # # Low-High Battery Name BLOOD CULTURE Specimen Description BLOOD LEFT WRIST Special Requests NONE Culture NO GROWTH 1 DAY Report Status CULTURE-BLOOD W/SENSITIVITY Collection Time: 01/19/18 3:50 PM # # Low-High Battery Name BLOOD CULTURE Specimen Description BLOOD PICC LINE Special Requests NONE Culture NO GROWTH 1 DAY Report Status BASIC METABOLIC PANEL Collection Time: 01/20/18 5:08 AM # # Low-High Sodium 134 (L) 137 - 147 MMOL/L Potassium 3.0 (L) 3.5 - 5.1 MMOL/L Chloride 97 (L) 98 - 110 MMOL/L CO2 31 (H) 21 - 30 MMOL/L Anion Gap 6 3 - 12 Glucose 100 70 - 100 MG/DL Blood Urea Nitrogen 5 (L) 7 - 25 MG/DL Creatinine 0.47 0.4 - 1.24 MG/DL Calcium 8.3 (L) 8.5 - 10.6 MG/DL eGFR Non >60 >60 mL/min eGFR >60 >60 mL/min Physical Exam VS: BP 100/59 | Pulse 97 | Temp 36.9 C (98.5 F) | Ht 182.9 cm (72.01") | Wt 72.8 kg (160 lb 7.9 oz) | SpO2 94% | BMI 21.76 kg/m Gen: Alert, No Acute Distress HEENT: Normocephalic, atraumatic, sclera anicteric, conjunctiva not injected, congestion, NC in place 2L Neck: Supple, no elevated JVP Heart: Regular Rate & Rhythm, No Murmur Lungs: Good inspiratory effort , upper airway sounds clear with minimal secretions, clear bases today Abdomen: Soft, non-tender, non-distended Skin: Warm, dry Psych: Pleasant mood Therapy Notes & Labs Reviewed. K GRADER * Nela Barragan - 01/20/2018 7:51 AM STOCK GRADER SPEECH-LANGUAGE PATHOLOGY REHAB SPEECH DAILY NOTE SUMMARY: Pt seen by STATE TROOPER for 30 minutes of speech therapy targeting dysphagia. PLAN: Continue current therapy plan. FREQUENCY TODAY: 1x RECOMMENDATIONS: Regular/thin liquids with use of strategies. Medications whole with thin liquids. ACTIVITIES FOR THE DAY: Pt completed expiratory strengthening exercise with use of EMST device for 5 sets of x5 repetitions at 60 cmH2O (resisteance increased today). Pt required mild verbal cues for accuracy and management of time for rest breaks in between breaths and sets. Pt generated productive cough during exercises x2 with expectoration of minimal secretions using oral suctioning. Speech Shelter Goals STATE TROOPER [employer] [place] Goals: Yes Will maximize speech production for independent communication with: Minimal assist. Achieved. Patient will exhibit safe swallow for least restrictive consistency: Progressing Other Shelter Goals: Achieved Speech Short Term Goals Other (comment): Pt will demonstrate breath support sufficient to generate x10- 12 syllables per breath group given minimal cues. Not addressed - spontaneous improvement noted in breath support without need for further intervention. Dysphagia: Yes Will tolerate current diet without signs of aspiration: Progressing Will participate in repeat instrumental swallow evaluation when clinically indicated: Achieved. Therapist: Nela Barragan M.S., L/CCC-STATE TROOPER Date: 01/20/2018 K GRADER * Armando Roca, RN - 01/20/2018 5:16 AM STOCK GRADER Heart Failure Nursing Progress Note Admission Date: 12/31/2017 LOS: 20 days Admission Weight: 74.3 kg (163 lb 12.8 oz) Most recent weights (inpatient): Vitals: 01/17/18 0600 01/19/18 0600 01/20/18 0511 Weight: 75.5 kg (166 lb 7.2 oz) 72.3 kg (159 lb 4.8 oz) 72.8 kg (160 lb 7.9 oz) Weight change from previous day: -0.5kg Fluid restriction ordered: No Intake/Output Summary: (Last 24 hours) Intake/Output Summary (Last 24 hours) at 01/20/2018 0516 Last data filed at 01/20/2018 0250 Gross per 24 hour Intake 1020 ml Output 450 ml Net 570 ml Is patient incontinent No Anticipated discharge date: 01/28/18 Discharge goals: To sleep in my bed Daily Assessment of Patient Stated Goals: Short Term Goal Identified by patient (Short Term=during hospitalization): K GRADER * Kyler Jennings, RT - 01/19/2018 8:51 PM STOCK GRADER RT Adult Assessment Note NAME:Darrius Salas :1955 AGE: 62 y.o. ADMISSION DATE: 12/31/2017 DAYS ADMITTED: LOS: 19 days RT Treatment Plan: Protocol Plan: Medications Albuterol: MDI PRN Tiotropium: MDI Q Day Protocol Plan: Procedures PAP: Place a nursing order for "IS Q1h While Awake" for any of Lung Expansion indicators Oxygen/Humidity: O2 to keep SpO2 > 92% Monitoring: Pulse oximetry BID & PRN Additional Comments: Impressions of the patient: Pt resting comfortably in bed, effective cough, no indications of sob. Patient education that was completed: Importance of effective cough. Recommendations to the care team: None at this time. Vital Signs: Pulse: Pulse: 102 RR: Respirations: 16 PER MINUTE SpO2: SpO2: 98 % O2 Device: $$ O2 Device: Cannula Liter Flow: O2 Liter Flow: 2 lpm O2%: Breath Sounds: All Breath Sounds: Decreased Respiratory Effort: Respiratory Effort: Non-Labored K GRADER * Akiko Barnes RN - 01/19/2018 6:39 PM STOCK GRADER Heart Failure Nursing Progress Note Admission Date: 12/31/2017 LOS: 19 days Admission Weight: 74.3 kg (163 lb 12.8 oz) Most recent weights (inpatient): Vitals: 01/16/18 0551 01/17/18 0600 01/19/18 0600 Weight: 76.7 kg (169 lb 3.2 oz) 75.5 kg (166 lb 7.2 oz) 72.3 kg (159 lb 4.8 oz) Weight change from previous day:-3.2 Fluid restriction ordered: None Intake/Output Summary: (Last 24 hours) Intake/Output Summary (Last 24 hours) at 01/19/18 1839 Last data filed at 01/19/18 1000 Gross per 24 hour Intake 960 ml Output 500 ml Net 460 ml Is patient incontinent No Anticipated discharge date: 01/28 Discharge goals: Return home Daily Assessment of Patient Stated Goals: Short Term Goal Identified by patient (Short Term=during hospitalization): Maintain fluid balance K GRADER * Patrica Zapien - 01/19/2018 4:00 PM STOCK GRADER CLINICAL NUTRITION Clinical Nutrition Follow-Up Summary NAME:Darrius Salas :1955 AGE: 62 y.o. ADMISSION DATE: 12/31/2017 DAYS ADMITTED: LOS: 19 days Nutrition Assessment of Patient: Malnutrition Assessment: Does not meet criteria Current Oral Intake: Marginally Adequate Estimated Calorie Needs: 3826-9070 (25-30kcal/kg of 74kg) Estimated Protein Needs: 89-104 (1.2-1.4g/kg of 74kg) Oral Diet Order: Renal-Dialysis Patient Oral Supplement: (smoothies) Comments: Pt admitted to inpatient rehab on 12/31 for debility. PMH of COPD, tobacco/etoh use, CAD s/p PCI admitted as a transfer from an OSH for resp failure 2/2 PNA & inability to wean off vent s/p 3 intubations. Pt required EN feeds. He gradually returned to a regular textured diet on 12/30. Pt came to rehab on nocturnal feeds to allow for PO intake during the day. Hold placed 01/11 due to ongoing marginal intake. First full day s/p no EN, pt only consumed 925kcal and 43g protein. However, EN was d/c'd in anticipation appetite would improve. Pt is gradually improving, but reports not quite being to baseline appetite/PO intake due to recent nausea (now resolved) and lack of appetite. Intakes are marginal per documentation. Pt reports sometimes not liking food choice once arrives and forgets to ask for smoothie or PB& J as previously recommended. Lasix continues with +fluid status noted today. Weight is down ~4# since dc of EN; remains stable overall. Discussed with pt new wt and need to continue PO intake efforts, reminding him to request smoothies or sandwich. Today, pt's son has brought him outside food he is looking forward to consuming. Pt feels PO intake will improve once home and having foods prepped to his preference. He reports new intolerance to dairy with symptom of nausea with no diarrhea. He does not feel shakes are bothering him, however. Discussed options. Hyponatremia noted; Na+ 131 today. Pt is stabilizing nutritionally. DC pending 01/24. Recommendation: Continue current diet. Please encourage smoothies or PB& J if meal intake is poor. Intervention / Plan: Encouraged continued PO intake effort Monitor PO intake and weight Monitor skin, gi, meds, fluids Nutrition Diagnosis: Inadequate oral intake Etiology: decreased appetite, altered taste, recent modified food textured diet Signs & Symptoms: pt report, continued need for supplemental EN Goals: PO intake to meet >85% nutritional needs Time Frame: Within 72 Hours Status: Not met;Ongoing Patrica Zapien, CRISTINO, LD *9586 K GRADER * Beatriz Ortiz MD - 01/19/2018 1:18 PM STOCK GRADER ATTESTATION I personally performed the gaytan portions of the E/M visit, discussed case with resident and concur with resident documentation of history, physical exam, assessment, and treatment plan unless otherwise noted. Pt feeling better today, no nausea. Labs and VS reviewed and stable. Consistently needs ~2L NC O2, will plan to repeat O2 studies prior to d/c. Can d/c PEG today. Replace K+. Final sputum culture with Proteus, will f/u ID abx recs for acute PNA. D/w Dr. Farah today about plan for treatment and f/u. Per d/w rehab team at conference, patient making progress towards goal of SBA with 4WW, tub bench, bed rail. Tentative discharge date 01/28/18. Progress this week, min A transfers from low surfaces, assist for stairs, minimal dysphagia improving. Recommending HH vs OP therapies at time of discharge from rehab. 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 Darrius Salas is a 62 [...] placement, thoracentesis s/p chest tube placement. He now presents to IRF with debility warranting PT/OT/STATE TROOPER therapies. Rehabilitation Plan Rehabilitation: Patient will continue with comprehensive therapies including physical therapy, occupational therapy, speech & language pathology, specialized rehab nursing, neuropsychology and physiatry oversight. Goals: SBA at household mobility Tentative discharge date: 01/28/18 Recommended therapy after discharge: Home health vs outpatient PT/OT/STATE TROOPER Recommended equipment: Most likely RW, tub transfer bench, bed rail Daily Functional Update: Transfers Device Sit to Stand Transfer: Assistive Device: 4-Wheeled Walker (01/19/2018 12:00 PM) No Data Recorded Gait Device Assist Required Distance Gait: Assistive Device: 4-Wheeled Walker (01/19/2018 12:00 PM) No Data Recorded Gait Distance: 350 feet (01/19/2018 12:00 PM) Standing Balance Static Dynamic No Data Recorded No Data Recorded Toileting Assist Required Equipment Toilet Transfer Toileting Assist: Stand By Assist (01/18/2018 8:00 AM) Toileting Equipment: Commode - 3 in 1 padded (01/14/2018 8:00 AM) No Data Recorded Dressing Lower Body LE Dressing Assist: Moderate Assist (01/17/2018 8:00 AM) Debility secondary to acute on chronic hypoxic respiratory failure Legionella pneumonia (PNA), invasive necrotizing aspergillosis PNA, BAL with positive HSV & CMV PNA Decreased pulmonary reserve Generalized weakness Decreased endurance Impaired mobility and ADLs - Baseline O2 2-3 L QHS, currently tolerating 2L NC - s/p x3 intubation/extubations - s/p PEA arrest (extubated 11/24) - s/p treatment with linezolid, zosyn - Immunology followed across street for multiple opportunistic infxs - 01/05: s/p pecs and anterior scalene peripheral nerve block by acute anesthesia pain service > CXR concerning for worsening PNA, sputum pos for gram neg rods & gram pos cocci, on cefepime IV, ID following for ongoing plan. Will get CT chest at later date > ID following for continuation of care > CMV quant-blood every Wednesday, CMP every Wednesday > Continue antibiotics including micafungin IV, Cresemba 372mg QD , valganciclovir 900mg BID > Can likely stop micafungin at discharge, will continue at least 3 months cresemba, 4-6wks valganciclovir. May be able to discharge with only cresemba PO per ID. > Continue aggressive pulmonary hygiene with Aerobika and IS, cough assist > Consult PT/OT Right sided pleural effusion COPD - on 2-3L QHS at baseline - s/p RR 12/16 for incr 02 requirement, thoracentesis 1800cc exudative fluid - s/p chest tube removal 12/29 - 01/05: s/p pecs and anterior scalene peripheral nerve block by acute anesthesia pain service > Continue albuterol nebs Q4H PRN, atrovent nebs Q4H PRN > Continue HEAD START COORDINATOR Symbicort BID, flonase BID, Spiriva daily > Continue lasix 60mg BID, guaifenesin LA 600mg BID > Patient will need exercise ox and overnight ox prior to discharge Paroxysmal Atrial Fibrillation with RVR CAD s/p PCI 03/2012 Chronic HFpEF HTN HLD - s/p ablation 2013 - Failed cardioversion at OSH - Previously on amiodarone, d/c'd due to LFTs > Continue lasix 60mg BID, digoxin 250mcg QD, metoprolol 12.5mg BID, and xarelto 20mg QD > Holding HEAD START COORDINATOR Coreg, Cardizem, Vasotect, Lipitor > Continue daily weights, CTM Nausea/vomiting: zofran scheduled TID, decrease pain meds as able Elevated Alk phos - LFTs WNL - GI consulted across street - 12/20/17: CT A/P w/ contrast without inflammatory mass, ascites, or bowel obstruction. However, fusiform infrarenal abdominal aortic aneurysm measuring up to 4.9 cm in maximum diameter. > Continue nutritional support with calorie count > Consult hepatology if any issues arise > CMP every Wednesday, alk phos continues to improve, AST/ALT WNL > F/u in hepatology clinic on discharge Minimal Pharyngeal Dysphagia - Markedly improved FEEs 01/13, off TF > Continue regular solids/thin liquids > Consult dietitian and STATE TROOPER (STATE TROOPER also working on cough therapy) > PEG tube placed in IR 12/15; can pull today Opioid induced constipation: continue docusate 200mg BID, miralax BID, senna 2 tab BID Macrocytic anemia, stable, CTM with CBC Sleep disturbance: melatonin 5mg QHS PRN GERD: PPI Hypokalemia: follow up BMP tomorrow then MWF labs Pain Management: Tylenol PRN and lidocaine patches, oxycodone 5mg Q4Hr PRN Skin: There is / are 1 pressure sore(s) including coccyx/buttocks. Continue vit a & d ointment Bowel: continent of bowel Bladder: continent of bladder, passed BVIs x3 until <125ml and ISC for >300ml Nutrition: Current diet: regular Mental Health: consult neuropsychology to provide support / counseling DVT Prophylaxis: Xarelto Code status: DNAR-FI (no CPR or intubation) Nela Santoro D.O., M.B.A. Physical Medicine and Rehabilitation, PGY-2 Pager [phone] Subjective Darrius Salas is a 62 y.o. M seen in the gym this morning with his son at his side. After speaking with Dr. Andrew, antibiotics will continue and will narrow in future. Likely hold off on CT chest at this time. Otherwise patient reports that nausea is better. He continues to clinically improve. On track for discharge contact-guard assist with household mobility. He will likely need a roller walker, tub transfer bench, and bed rails at home. Will also need overnight oxygen as well as exercise oxygen test prior to leaving. Objective Vital Signs: Last Filed Vital Signs: 24 Hour Range BP: 110/65 (01/19 435) Temp: 36.5 C (97.7 F) (01/19 435) Pulse: 92 (01/19 435) Respirations: 18 PER MINUTE (01/19 435) SpO2: 97 % (01/19 435) O2 Delivery: Nasal Cannula (01/19 435) BP: (91-115)/(51-65) Temp: [36.3 C (97.4 F)-36.7 C (98.1 F)] Pulse: [61-114] Respirations: [18 PER MINUTE] SpO2: [92 %-100 %] O2 Delivery: Nasal Cannula Intensity Pain Scale (Self Report): 4 (01/19/18 1000) Vitals: 01/16/18 0551 01/17/18 0600 01/19/18 0600 Weight: 76.7 kg (169 lb 3.2 oz) 75.5 kg (166 lb 7.2 oz) 72.3 kg (159 lb 4.8 oz) Intake/Output Summary: (Last 24 hours) Intake/Output Summary (Last 24 hours) at 01/19/18 1318 Last data filed at 01/19/18 1000 Gross per 24 hour Intake 960 ml Output 500 ml Net 460 ml Stool Occurrence: 1 Oral Diet Order: Regular Last Bowel Movement Date: 01/19/18 Lab: Results for orders placed or performed during the hospital encounter of (from the past 24 hour(s)) CBC CELLULAR THERAPEUTICS Collection Time: 01/19/18 6:15 AM # # Low-High White Blood Cells 10.4 4.5 - 11.0 K/UL RBC 2.66 (L) 4.4 - 5.5 M/UL Hemoglobin 9.2 (L) 13.5 - 16.5 GM/DL Hematocrit 27.7 (L) 40 - 50 % MCV 103.9 (H) 80 - 100 FL MCH 34.6 (H) 26 - 34 PG MCHC 33.3 32.0 - 36.0 G/DL RDW 18.1 (H) 11 - 15 % Platelet Count 336 150 - 400 K/UL MPV 6.9 (L) 7 - 11 FL BASIC METABOLIC PANEL CELLULAR THERAPEUTICS Collection Time: 01/19/18 6:15 AM # # Low-High Sodium 131 (L) 137 - 147 MMOL/L Potassium 2.9 (L) 3.5 - 5.1 MMOL/L Chloride 93 (L) 98 - 110 MMOL/L CO2 33 (H) 21 - 30 MMOL/L Anion Gap 5 3 - 12 Glucose 106 (H) 70 - 100 MG/DL Blood Urea Nitrogen 6 (L) 7 - 25 MG/DL Creatinine 0.48 0.4 - 1.24 MG/DL Calcium 8.6 8.5 - 10.6 MG/DL eGFR Non >60 >60 mL/min eGFR >60 >60 mL/min Physical Exam VS: BP 110/65 (BP Source: Arm, Left Upper) | Pulse 92 | Temp 36.5 C (97.7 F) | Ht 182.9 cm (72.01") | Wt 72.3 kg (159 lb 4.8 oz) | SpO2 97% | BMI 21.60 kg/m Gen: Alert & Conversant, No Acute Distress HEENT: Normocephalic, atraumatic, sclera anicteric, conjunctiva not injected, congestion, NC in place 2L Neck: Supple, no elevated JVP Heart: Regular Rate & Rhythm, No Murmur Lungs: Good inspiratory effort , upper airway sounds clear with minimal secretions, clear bases today Abdomen: Soft, non-tender, non-distended, PEG in place Skin: Warm, dry Psych: Pleasant mood Therapy Notes & Labs Reviewed. K GRADER * Caryn Farah MD - 01/19/2018 8:39 AM STOCK GRADER Infectious Diseases Progress Note 01/19/2018 Admission Date: 12/31/2017 LOS: 19 days ASSESSMENT Invasive pulmonary aspergillosis in COPD patient with right-sided disease and persistent respiratory failure s/p thoracentesis 12/16/17 CMV pneumonitis 12/21/17 Legionella pneumonia, also possible aspiration - At [...] Fungitell 38, Galactomannan 0.052. - [employer] (11/04)- peripheral blood cultures -no growth, Sputum/ endotracheal- mixed bacterial gavin, few yeast (11/08) BAL/left upper lobe >1, 000 CFU/ML- Tamar Gl[place] long-standing 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, with recent RVR, CAD, CHF - s/p ablation in 2013 - HEAD START COORDINATOR xarelto, diltiazem - was cardioverted unsuccessfully at OSH, treated with amio, dig load (?) and diltiazem - history of PCI to RCA in March 2012 CMV viremia 11/29/17. Not detected on first BAL, virus detected on 12/21/17 BAL. Significant debility P. mirabilis pneumonia 01/16/18 PLAN: 1. Discussed with rehab resident. We have a new acute reason for possible change in his lung radiology. Plan to treat acute pneumonia, then repeat CT after that. 2. Will change cefepime to rocephin to complete treatment. 3. Cont PO valgancyclovir. Will likely need at least several more weeks of antiviral therapy. Low level detection currently, 01/17/18 CMV PCR not detected. 4. Cont cresemba+braden. May be able to discharge with only cresemba PO. 5. monitor labs for toxicity. 6. Will follow. Mr. Salas has complex disease requiring complex medical decision making for pneumonia, aspergillosis, therapeutic drug monitoring, resp failure. I reviewed the chart and interviewed and examined the patient and formulated the plan as above. Interval history: Darrius Salas is a 62 y.o. male. Patient afebrile. On 2L NC. Proetus grew from sputum. WBC normalized. ABX: Antimicrobial Start date End date levaquin 11/15 11/28 meropenem 11/19 11/22 vanc 11/20 11/22 vori 11/23-11/24 Restart 11/3012/22/17 isavuconazole 11/24 11/30 cefepime 11/2712/02/17 acyclovir 11/27-12/11/17, 12/22/17 12/24/17 Estimated Creatinine Clearance: 121.8 mL/min (A) (based on SCr of 0.39 mg/dL (L) ). Zosyn 12/10/17- 12/17/17 linezolid 12/10/17 - 12/17/17 Cresemba + braden 12/22/17 Ganciclovir 12/24/17 Cefepime 01/16/18 Medications Scheduled Meds: ascorbic acid (VITAMIN C) tablet 500 mg 500 mg Oral QDAY budesonide/formoterol (SYMBICORT HFA) 160/4.5 mcg inhalation 2 puff 2 puff Inhalation BID cefepime (MAXIPIME) 1 g in dextrose 5% (D5W) 100 mL IVPB (MB+) 1 g Intravenous Q8H* cholecalciferol (VITAMIN D-3) tablet 400 Units 400 Units Oral QDAY digoxin (LANOXIN) tablet 250 mcg 250 mcg Oral QDAY docusate (COLACE) capsule 200 mg 200 mg Oral BID fluticasone (FLONASE) nasal spray 2 spray 2 spray Each Nostril QDAY furosemide (LASIX) tablet 60 mg 60 mg Oral BID(-) guaiFENesin LA (MUCINEX) tablet 600 mg 600 mg Oral BID isavuconazonium sulfate (CRESEMBA) capsule 372 mg 372 mg Oral QDAY() lidocaine (LIDODERM) 5 % topical patch 1-2 patch 1-2 patch Topical QDAY metoprolol tartrate (LOPRESSOR) tablet 12.5 mg 12.5 mg Oral BID micafungin (MYCAMINE) 150 mg in sodium chloride 0.9% (NS) 110 mL IVPB 150 mg Intravenous Q24H* ondansetron (ZOFRAN) tablet 4 mg 4 mg Oral TID w/ meals pantoprazole DR (PROTONIX) tablet 40 mg 40 mg Oral QDAY(21) polyethylene glycol 3350 (MIRALAX) packet 17 g 1 packet Oral BID potassium chloride SR (K-DUR) tablet 60 mEq 60 mEq Oral ONCE rivaroxaban (XARELTO) tablet 20 mg 20 mg Oral QDAY w/breakfast senna (SENOKOT) tablet 2 tablet 2 tablet [...] Respiratory Meds:acetaminophen Q4H PRN, albuterol Q4H PRN, aluminum/ magnesium hydroxide Q4H PRN, bisacodyl QDAY PRN, dextran 70/hypromellose Q6H PRN , melatonin QHS PRN, milk of magnesia (CONC) Q4H PRN, oxyCODONE Q4H PRN, pancrelipase 20,000 Units/ sodium bicarbonate 650 mg(#) PRN ([employer] Clerk from Rx), phenol PRN Objective Vital Signs: Last Filed Vital Signs: 24 Hour Range BP: 110/65 (01/19 435) Temp: 36.5 C (97.7 F) (01/19 435) Pulse: 92 (01/19 435) Respirations: 18 PER MINUTE (01/19 435) SpO2: 97 % (01/19 435) O2 Delivery: Nasal Cannula (01/19 435) BP: (91-115)/(51-65) Temp: [36.3 C (97.4 F)-36.7 C (98.1 F)] Pulse: [61-114] Respirations: [18 PER MINUTE] SpO2: [92 %-100 %] O2 Delivery: Nasal Cannula Vitals: 01/16/18 0551 01/17/18 0600 01/19/18 0600 Weight: 76.7 kg (169 lb 3.2 oz) 75.5 kg (166 lb 7.2 oz) 72.3 kg (159 lb 4.8 oz) Physical Exam Gen: A&O X 3, no acute distress, appears ill HEENT: EOMI, no subconjunctival hemorrhages CV: RRR Resp: Clear bilat, air exchange poor bilaterally, +crackles Abd, soft, non tender, +BS Extremity: no edema Derm: no rash/lesions appreciated Lab Review Full labs reviewed. Recent Labs 01/19/18 0615 WBC 10.4 Radiology and other Diagnostics Review: Radiology viewed and reports reviewed I have interviewed and examined this patient today and viewed the vital signs, laboratory, microbiology and radiology. MD Caryn Marlow MD Infectious Diseases Faculty Pager: [phone] K GRADER * Yung Nela - 01/19/2018 8:21 AM STOCK GRADER SPEECH-LANGUAGE PATHOLOGY REHAB SPEECH DAILY NOTE SUMMARY: Pt seen by STATE TROOPER for 45 minutes targeting dysphagia. Pt's son was present. Reviewed details of EMST program - pt benefited from the repetition of education as he reported some misunderstanding about the device. PLAN: Continue current therapy plan. FREQUENCY TODAY: 1x RECOMMENDATIONS: Regular/thin liquids with use of strategies. Medications whole with thin liquids. ACTIVITIES FOR THE DAY: Pt completed expiratory strengthening exercise with use of EMST device for 5 sets of x5 repetitions at 45 cmH2O (resisteance increased today). Pt required mild verbal cues for accuracy and management of time for rest breaks in between breaths and sets. Pt generated productive cough during exercises x3 with expectoration of minimal secretions. Speech Freight [place] Goals STATE TROOPER Freight [place] Goals: Yes Will maximize speech production for independent communication with: Minimal assist. Achieved. Patient will exhibit safe swallow for least restrictive consistency: Progressing Other Freight [place] Goals: Achieved Speech Short Term Goals Other (comment): Pt will demonstrate breath support sufficient to generate x10- 12 syllables per breath group given minimal cues. Not addressed - spontaneous improvement noted in breath support without need for further intervention. Dysphagia: Yes Will tolerate current diet without signs of aspiration: Progressing Will participate in repeat instrumental swallow evaluation when clinically indicated: Achieved. Therapist: Nela Barragan M.S., Joyce/CCC-STATE TROOPER Date: 01/19/2018 K GRADER * Armando Roca, CONSTANTIN - 01/19/2018 6:40 AM STOCK GRADER Heart Failure Nursing Progress Note Admission Date: 12/31/2017 LOS: 19 days Admission Weight: 74.3 kg (163 lb 12.8 oz) Most recent weights (inpatient): Vitals: 01/16/18 0551 01/17/18 0600 01/19/18 0600 Weight: 76.7 kg (169 lb 3.2 oz) 75.5 kg (166 lb 7.2 oz) 72.3 kg (159 lb 4.8 oz) Weight change from previous day: <3.2 Fluid restriction ordered: No Intake/Output Summary: (Last 24 hours) Intake/Output Summary (Last 24 hours) at 01/19/18 0641 Last data filed at 01/19/18 0435 Gross per 24 hour Intake 870 ml Output 500 ml Net 370 ml Is patient incontinent No Anticipated discharge date: 01/28/18 Discharge goals: "Increased strength" Daily Assessment of Patient Stated Goals: Short Term Goal Identified by patient (Short Term=during hospitalization): K GRADER * Reina Saxena - 01/18/2018 6:04 PM STOCK GRADER Heart Failure Nursing Progress Note Admission Date: 12/31/2017 LOS: 18 days Admission Weight: 74.3 kg (163 lb 12.8 oz) Most recent weights (inpatient): Vitals: 01/15/18 0600 01/16/18 0551 01/17/18 0600 Weight: 76 kg (167 lb 8.8 oz) 76.7 kg (169 lb 3.2 oz) 75.5 kg (166 lb 7.2 oz) Weight change from previous day:-1.2kg Fluid restriction ordered: no Intake/Output Summary: (Last 24 hours) Intake/Output Summary (Last 24 hours) at 01/18/18 1804 Last data filed at 01/18/18 0833 Gross per 24 hour Intake 820 ml Output 600 ml Net 220 ml Is patient incontinent No Anticipated discharge date: 01/28 Discharge goals: be more independent Daily Assessment of Patient Stated Goals: Short Term Goal Identified by patient (Short Term=during hospitalization): Manage nausea K GRADER * Beatriz Ortiz MD - 01/18/2018 11:12 AM STOCK GRADER ATTESTATION I personally performed the gaytan portions of the E/M visit, discussed case with resident and concur with resident documentation of history, physical exam, assessment, and treatment plan unless otherwise noted. Pt still with some nausea after taking morning meds. Labs and VS reviewed and WBC a little improved today. BCx NGTD. Sputum culture pending. Will likely need CT chest this week. Will reduce oxycodone and add zofran with meals for nausea. Pt still able to work with OT this morning, 2L NC O2 during our exam. Patient remains medically stable to participate in IRF program. Staff name: Beatriz Ortiz MD Date: 01/18/2018 Physical Medicine & Rehabilitation Progress Note Today's Date: 01/18/2018 Admission Date: 12/31/2017 LOS: 18 days Insurance: Medicare Principal Problem: Debility Active Problems: CHF (congestive heart failure) ([facility]) CAD (coronary artery disease) AF (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) ([facility]) jail current use of anticoagulant COPD (chronic obstructive pulmonary disease) ([facility]) HTN (hypertension) HLD (hyperlipidemia) Alcohol abuse Tobacco abuse S/P ablation of 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 Pneumonia Respiratory failure, gqtzx-ou-scunyxf (HCC) Cytomegalovirus (CMV) viremia ([facility]) Impaired mobility and activities of daily living Assessment/Plan: Mr. Darrius Salas is a 62 [...] placement, thoracentesis s/p chest tube placement. He now presents to IRF with debility warranting PT/OT/STATE TROOPER therapies. Rehabilitation Plan Rehabilitation: Patient will continue with comprehensive therapies including physical therapy, occupational therapy, speech & language pathology, specialized rehab nursing, neuropsychology and physiatry oversight. Goals: Emily with least assisted device Tentative discharge date: 01/28/18 Recommended therapy after discharge: Home health vs outpatient PT/OT/STATE TROOPER Recommended equipment: Most likely RW, tub transfer bench Daily Functional Update: Transfers Device Sit to Stand Transfer: Assistive Device: 4-Wheeled Walker (01/18/2018 8:00 AM) No Data Recorded Gait Device Assist Required Distance Gait: Assistive Device: 4-Wheeled Walker (01/17/2018 12:36 PM) No Data Recorded Gait Distance: 200 feet (01/17/2018 12:36 PM) Standing Balance Static Dynamic No Data Recorded No Data Recorded Toileting Assist Required Equipment Toilet Transfer Toileting Assist: Stand By Assist (01/18/2018 8:00 AM) Toileting Equipment: Commode - 3 in 1 padded (01/14/2018 8:00 AM) No Data Recorded Dressing Lower Body LE Dressing Assist: Moderate Assist (01/17/2018 8:00 AM) Debility secondary to acute on chronic hypoxic respiratory failure Legionella pneumonia (PNA), invasive necrotizing aspergillosis PNA, BAL with positive HSV & CMV PNA Decreased pulmonary reserve Generalized weakness Decreased endurance Impaired mobility and ADLs - Baseline O2 2-3 L QHS, currently tolerating 2L NC - s/p x3 intubation/extubations - s/p PEA arrest (extubated 11/24) - s/p treatment with linezolid, zosyn - Immunology followed across street for multiple opportunistic infxs - 01/05: s/p pecs and anterior scalene peripheral nerve block by acute anesthesia pain service > Fever to 100.6 over weekend with nausea, CXR concerning for worsening PNA, sputum pos for gram neg rods & gram pos cocci, on cefepime IV, ID following for ongoing plan. Awaiting callback from pulmonary regarding repeat CT chest. > ID consulted for continuation of care > CMV quant-blood every Wednesday, CMP every Wednesday > Continue antibiotics including micafungin IV, Cresemba 372mg QD , valganciclovir 900mg BID > Can likely stop micafungin at discharge, will continue at least 3 months cresemba, 4-6wks valganciclovir. May be able to discharge with only cresemba PO per ID. > Repeat CT chest [address] or PRN (last CT 12/20) > Continue aggressive pulmonary hygiene with Aerobika and IS, cough assist > Consult PT/OT Right sided pleural effusion COPD - on 2-3L QHS at baseline - s/p RR 12/16 for incr 02 requirement, thoracentesis 1800cc exudative fluid - s/p chest tube removal 12/29 - 01/05: s/p pecs and anterior scalene peripheral nerve block by acute anesthesia pain service > Continue albuterol nebs Q4H PRN, atrovent nebs Q4H PRN > Continue HEAD START COORDINATOR Symbicort BID, flonase BID, Spiriva daily > Continue lasix 60mg BID, guaifenesin LA 600mg BID > Regular dressing over pleurX site and monitor for fluid output Paroxysmal Atrial Fibrillation with RVR CAD s/p PCI 03/2012 Chronic HFpEF HTN HLD - s/p ablation 2013 - Failed cardioversion at OSH - Previously on amiodarone, d/c'd due to LFTs > Continue lasix 60mg BID, digoxin 250mcg QD, metoprolol 12.5mg BID, and xarelto 20mg QD > Holding HEAD START COORDINATOR Coreg, Cardizem, Vasotect, Lipitor > Continue daily weights, CTM Nausea/vomiting: zofran scheduled TID, decrease pain meds as able Elevated Alk phos - LFTs WNL - GI consulted across street - 12/20/17: CT A/P w/ contrast without inflammatory mass, ascites, or bowel obstruction. However, fusiform infrarenal abdominal aortic aneurysm measuring up to 4.9 cm in maximum diameter. > Continue nutritional support with calorie count > Consult hepatology if any issues arise > CMP every Wednesday, alk phos continues to improve, AST/ALT WNL > F/u in hepatology clinic on discharge Minimal Pharyngeal Dysphagia - Markedly improved FEEs 01/13, off TF > Continue regular solids/thin liquids > Consult dietitian and STATE TROOPER (STATE TROOPER also working on cough therapy) > PEG tube placed in IR 12/15; can pull prior to discharge as it will have been 1 month Opioid induced constipation: continue docusate 200mg BID, miralax BID, senna 2 tab BID Macrocytic anemia, stable, CTM with CBC Sleep disturbance: melatonin 5mg QHS PRN GERD: PPI Pain Management: Tylenol PRN and lidocaine patches, oxycodone 5mg Q4Hr PRN Skin: There is / are 1 pressure sore(s) including coccyx/buttocks. Continue vit a & d ointment Bowel: continent of bowel Bladder: continent of bladder, passed BVIs x3 until <125ml and ISC for >300ml Nutrition: Current diet: regular as patient is on calorie count Feeding tube: Nocturnal compressed feeds of Nutren 2.0 at 80ml/hr x 8hrs, continue vit C, Vit D, thiamine, multiV Calorie count in place, holding TF for 2 nights Mental Health: consult neuropsychology to provide support / counseling DVT Prophylaxis: Xarelto Code status: DNAR-FI (no CPR or intubation) Nela Santoro D.O., M.B.A. Physical Medicine and Rehabilitation, PGY-2 Pager [phone] Subjective Darrius Salas is a 62 y.o. M seen in his room this morning. He still continues to have some nausea after taking his medication eating and then standing with therapy. We will schedule Zofran today and monitor for improvement. Also decreased oxycodone dosage may also be contributing. Reports that his sputum is in large amounts and thick, but able to get it up. Encouraged oral intake. Awaiting callback from pulmonary regarding repeat CT. Objective Vital Signs: Last Filed Vital Signs: 24 Hour Range BP: 103/62 (01/18 738) Temp: 37.2 C (99 F) (01/18 450) Pulse: 98 (01/18 738) Respirations: 18 PER MINUTE (01/18 450) SpO2: 96 % (01/18 450) O2 Delivery: None (Room Air) (01/18 450) BP: (103-107)/(59-67) Temp: [36.9 C (98.4 F)-37.2 C (99 F)] Pulse: [59-106] Respirations: [18 PER MINUTE] SpO2: [93 %-96 %] O2 Delivery: None (Room Air) Intensity Pain Scale (Self Report): 5 (01/18/18 0810) Vitals: 01/15/18 0600 01/16/18 0551 01/17/18 0600 Weight: 76 kg (167 lb 8.8 oz) 76.7 kg (169 lb 3.2 oz) 75.5 kg (166 lb 7.2 oz) Intake/Output Summary: (Last 24 hours) Intake/Output Summary (Last 24 hours) at 01/18/18 1112 Last data filed at 01/18/18 0833 Gross per 24 hour Intake 760 ml Output 850 ml Net -90 ml Stool Occurrence: 1 Oral Diet Order: Regular Last Bowel Movement Date: 01/16/18 Lab: No results found for this visit on 12/31/17 (from the past 24 hour(s)). Physical Exam VS: BP 103/62 (BP Source: Arm, Left Upper) | Pulse 98 | Temp 37.2 C (99 F ) | Ht 182.9 cm (72.01") | Wt 75.5 kg (166 lb 7.2 oz) | SpO2 96% | BMI 22.57 kg/m Gen: Alert & Conversant, No Acute Distress HEENT: Normocephalic, atraumatic, sclera anicteric, conjunctiva not injected, congestion, NC in place 2L Neck: Supple, no elevated JVP Heart: Regular Rate & Rhythm, No Murmur Lungs: Good inspiratory effort , upper airway sounds clear with minimal secretions, clear bases today Abdomen: Soft, non-tender, non-distended, PEG in place Skin: Warm, dry Psych: Pleasant mood Therapy Notes & Labs Reviewed. K GRADER * Nela Barragan - 01/18/2018 7:48 AM STOCK GRADER SPEECH-LANGUAGE PATHOLOGY REHAB SPEECH DAILY NOTE SUMMARY: Pt seen by STATE TROOPER for 45 minutes targeting dysphagia. PLAN: Continue current therapy plan. FREQUENCY TODAY: 1x RECOMMENDATIONS: Regular/thin liquids with use of strategies. Medications whole with thin liquids. ACTIVITIES FOR THE DAY: Pt completed expiratory strengthening exercise with use of EMST device for 5 sets of x5 repetitions at 35 cmH2O. Resistance not increased today d/t ongoing nausea impacting effort pt able to expend. Pt required mild verbal cues for accuracy and management of time for rest breaks in between breaths and sets. Pt generated productive cough following exercises x3 with expectoration of minimal , thick cloudy secretions. Pt utilized oral suction independently. Episode of emesis x1, though pt able to continue session. Discussed ongoing use of EMST at home. Speech Shelter Goals STATE TROOPER Shelter Goals: Yes Will maximize speech production for independent communication with: Minimal assist. Achieved. Patient will exhibit safe swallow for least restrictive consistency: Progressing Other Freight [place] Goals: Achieved Speech Short Term Goals Other (comment): Pt will demonstrate breath support sufficient to generate x10- 12 syllables per breath group given minimal cues. Not addressed - spontaneous improvement noted in breath support without need for further intervention. Dysphagia: Yes Will tolerate current diet without signs of aspiration: Progressing Will participate in repeat instrumental swallow evaluation when clinically indicated: Achieved. Therapist: Nela Barragan M.S., L/CCC-STATE TROOPER Date: 01/18/2018 K GRADER * Zelda Almanza RN - 01/17/2018 6:55 PM STOCK GRADER Heart Failure Nursing Progress Note Admission Date: 12/31/2017 LOS: 17 days Admission Weight: 74.3 kg (163 lb 12.8 oz) Most recent weights (inpatient): Vitals: 01/15/18 0600 01/16/18 0551 01/17/18 0600 Weight: 76 kg (167 lb 8.8 oz) 76.7 kg (169 lb 3.2 oz) 75.5 kg (166 lb 7.2 oz) Weight change from previous day:-1.2kg: Fluid restriction ordered: No Intake/Output Summary: (Last 24 hours) Intake/Output Summary (Last 24 hours) at 01/17/18 1855 Last data filed at 01/17/18 1450 Gross per 24 hour Intake 360 ml Output 650 ml Net -290 ml Is patient incontinent No Anticipated discharge date: 01/18 Discharge goals: [place] with ADLS Daily Assessment of Patient Stated Goals: Short Term Goal Identified by patient (Short Term=during hospitalization): Manage Pain K GRADER * Nela Barragan - 01/17/2018 3:16 PM STOCK GRADER SPEECH-LANGUAGE PATHOLOGY NO TREATMENT NOTE The patient was not seen due to: Pt c/o nausea and did not feel he could complete EMST exercises this date. Will make up missed time. Attempted to see patient 2 times Therapist: Nela Barragan M.S., L/CCC-STATE TROOPER Date: 01/17/2018 K GRADER * Caryn Farah MD - 01/17/2018 11:13 AM STOCK GRADER Infectious Diseases Progress Note 01/17/2018 Admission Date: 12/31/2017 LOS: 17 days ASSESSMENT Invasive pulmonary aspergillosis in COPD patient with right-sided disease and persistent respiratory failure s/p thoracentesis 12/16/17 CMV pneumonitis 12/21/17 Legionella pneumonia, also possible aspiration - At OSH started on Zosyn 10/31, escalated to vancomycin, anidulafungin ( unsure what dates added); zosyn switched to meropenem , vanc stopped at some point - negative blood cultures; bronch with MARIALUISA BAL on 9/24 with negative bacterial culture, unsure of fungal culture result -positive legionella urine antigen at CT 11/14: Multifocal right upper lobe consolidation with several air-fluid levels within bullae suggestive of multifocal necrotizing pneumonia. Air-fluid levels may represent infected or hemorrhagic bullae which often requires prolonged antibiotic therapy, similar to treating a pulmonary abscess. - Fungitell 38, Galactomannan 0.052. - Via [facility] (11/04)- peripheral blood cultures -no growth, Sputum/ endotracheal- mixed bacterial gavin, few yeast (11/08) BAL/left upper lobe >1, 000 CFU/ML- Tamar Glabrata long-standing 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, with recent RVR, CAD, CHF - s/p ablation in 2013 - HEAD START COORDINATOR xarelto, diltiazem - was cardioverted unsuccessfully at OSH, treated with amio, dig load (?) and diltiazem - history of PCI to RCA in March 2012 CMV viremia 11/29/17. Not detected on first BAL, virus detected on 12/21/17 BAL. Significant debility PLAN: 1. Cont cefepime for now. Needs repeat CT chest. Unclear if his episode was pulm vs GI source. Await sputum culture. 2. Cont PO valgancyclovir. Will likely need at least several more weeks of antiviral therapy. Low level detection currently, 01/17/18 CMV PCR pending. 3. Cont cresemba+braden. May be able to discharge with only cresemba PO. 4. monitor labs for toxicity. 5. Will follow. Mr. Salas has complex disease requiring complex medical decision making for pneumonia, aspergillosis, therapeutic drug monitoring, resp failure. I reviewed the chart and interviewed and examined the patient and formulated the plan as above. Interval history: Darrius Salas is a 62 y.o. male. Patient afebrile. Had temp elevation and leukocytosis to 13 on 01/16/18. CXR appeared to be progressed compared to CXR. Placed on cefepime. He states his main problems was not pulmonary related, but nausea, emesis, "feel like I have the flu" Improved today clinically; afebrile, HR improved. Feels better today. Also has recent diarrhea stool. ABX: Antimicrobial Start date End date levaquin 11/15 11/28 meropenem 11/19 11/22 vanc 11/20 11/22 vori 11/23-11/24 Restart 11/3012/22/17 isavuconazole 11/24 11/30 cefepime 11/2712/02/17 acyclovir 11/27-12/11/17, 12/22/17 12/24/17 Estimated Creatinine Clearance: 121.8 mL/min (A) (based on SCr of 0.39 mg/dL (L) ). Zosyn 12/10/17- 12/17/17 linezolid 12/10/17 - 12/17/17 Cresemba + braden 12/22/17 Ganciclovir 12/24/17 Medications Scheduled Meds: ascorbic acid (VITAMIN C) tablet 500 mg 500 mg Oral QDAY budesonide/formoterol (SYMBICORT HFA) 160/4.5 mcg inhalation 2 puff 2 puff Inhalation BID cefepime (MAXIPIME) 1 g in dextrose 5% (D5W) 100 mL IVPB (MB+) 1 g Intravenous Q8H* cholecalciferol (VITAMIN D-3) tablet 400 Units 400 Units Oral QDAY digoxin (LANOXIN) tablet 250 mcg 250 mcg Oral QDAY docusate (COLACE) capsule 200 mg 200 mg Oral BID fluticasone (FLONASE) nasal spray 2 spray 2 spray Each Nostril QDAY furosemide (LASIX) tablet 60 mg 60 mg Oral BID(-) guaiFENesin LA (MUCINEX) tablet 600 mg 600 mg Oral BID isavuconazonium sulfate (CRESEMBA) capsule 372 mg 372 mg Oral QDAY(21) lidocaine (LIDODERM) 5 % topical patch 1-2 patch 1-2 patch Topical QDAY metoprolol tartrate (LOPRESSOR) tablet 12.5 mg 12.5 mg Oral BID micafungin (MYCAMINE) 150 mg in sodium chloride 0.9% (NS) 110 mL IVPB 150 mg Intravenous Q24H* pantoprazole DR (PROTONIX) tablet 40 mg 40 mg Oral QDAY(21) polyethylene glycol 3350 (MIRALAX) packet 17 g 1 packet Oral BID potassium chloride SR (K-DUR) tablet 60 mEq 60 mEq Oral ONCE rivaroxaban (XARELTO) tablet 20 mg 20 mg Oral QDAY w/breakfast senna (SENOKOT) tablet 2 tablet 2 tablet [...] Respiratory Meds:acetaminophen Q4H PRN, albuterol Q4H PRN, aluminum/ magnesium hydroxide Q4H PRN, bisacodyl QDAY PRN, dextran 70/hypromellose Q6H PRN , melatonin QHS PRN, milk of magnesia (CONC) Q4H PRN, ondansetron Q6H PRN, oxyCODONE Q4H PRN, pancrelipase 20,000 Units/ sodium bicarbonate 650 mg(#) PRN ( Salad [employer] Clerk from Rx), phenol PRN Objective Vital Signs: Last Filed Vital Signs: 24 Hour Range BP: 107/69 (01/17 802) Temp: 37.2 C (98.9 F) (01/18 400) Pulse: 82 (01/17 802) Respirations: 20 PER MINUTE (01/18 400) SpO2: 96 % (01/18 400) O2 Delivery: Nasal Cannula (01/18 400) BP: (107-117)/(68-76) Temp: [37.2 C (98.9 F)-37.4 C (99.3 F)] Pulse: [82-99] Respirations: [18 PER MINUTE-20 PER MINUTE] SpO2: [93 %-97 %] O2 Delivery: Nasal Cannula Intensity Pain Scale (Self Report): 6 (01/17/18 0759) Vitals: 01/15/18 0600 01/16/18 0551 01/17/18 0600 Weight: 76 kg (167 lb 8.8 oz) 76.7 kg (169 lb 3.2 oz) 75.5 kg (166 lb 7.2 oz) Physical Exam Gen: A&O X 3, no acute distress, appears ill HEENT: EOMI, no subconjunctival hemorrhages CV: RRR Resp: Clear bilat, air exchange poor bilaterally, +crackles Abd, soft, non tender, +BS Extremity: no edema Derm: no rash/lesions appreciated Lab Review Full labs reviewed. Recent Labs 01/17/18 0605 WBC 13.7* Radiology and other Diagnostics Review: Radiology viewed and reports reviewed I have interviewed and examined this patient today and viewed the vital signs, laboratory, microbiology and radiology. MD Caryn Mralow MD Infectious Diseases Faculty Pager: [phone] K GRADER * Beatriz Ortiz MD - 01/17/2018 10:58 AM STOCK GRADER ATTESTATION I personally performed the gaytan portions of the E/M visit, discussed case with resident and concur with resident documentation of history, physical exam, assessment, and treatment plan unless otherwise noted. Pt reports he feels better today. Took a shower with OT on 4L NC, back to 2L at rest. Labs and VS reviewed and WBC remains elevated. CXR with worsening PNA. Bcx NGTD, UA neg. ID to see today for abx coverage, started on on cefepime over wknd. Due to repeat CT chest this week, june d/w Pulm. D/w patient continue IS and acapella, still has cough assist in room and can supplement with it. Patient remains medically stable to participate in IRF program. 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 Darrius Salas is a 62 [...] placement, thoracentesis s/p chest tube placement. He now presents to IRF with debility warranting PT/OT/STATE TROOPER therapies. Rehabilitation Plan Rehabilitation: Patient will continue with comprehensive therapies including physical therapy, occupational therapy, speech & language pathology, specialized rehab nursing, neuropsychology and physiatry oversight. Goals: Emily with least assisted device Tentative discharge date: 01/28/18 Recommended therapy after discharge: Home health vs outpatient PT/OT/STATE TROOPER Recommended equipment: Most likely RW, tub transfer bench Daily Functional Update: Transfers Device Sit to Stand Transfer: Assistive Device: 4-Wheeled Walker (01/17/2018 8:00 AM) No Data Recorded Gait Device Assist Required Distance Gait: Assistive Device: 4-Wheeled Walker (01/14/2018 1:00 PM) No Data Recorded Gait Distance: 300 feet (01/14/2018 1:00 PM) Standing Balance Static Dynamic No Data Recorded No Data Recorded Toileting Assist Required Equipment Toilet Transfer Toileting Assist: Minimal Assist (01/14/2018 8:00 AM) Toileting Equipment: Commode - 3 in 1 padded (01/14/2018 8:00 AM) No Data Recorded Dressing Lower Body LE Dressing Assist: Moderate Assist (01/17/2018 8:00 AM) Debility secondary to acute on chronic hypoxic respiratory failure Legionella pneumonia (PNA), invasive necrotizing aspergillosis PNA, BAL with positive HSV & CMV PNA Decreased pulmonary reserve Generalized weakness Decreased endurance Impaired mobility and ADLs - Baseline O2 2-3 L QHS, currently tolerating 2L NC - s/p x3 intubation/extubations - s/p PEA arrest (extubated 11/24) - s/p treatment with linezolid, zosyn - Immunology followed across street for multiple opportunistic infxs - 01/05: s/p pecs and anterior scalene peripheral nerve block by acute anesthesia pain service > Fever to 100.6 over weekend with nausea, CXR concerning for worsening PNA, sputum pos for gram neg rods & gram pos cocci, on cefepime IV, will touch base with ID regarding plan > ID consulted for continuation of care > CMV quant-blood every Wednesday, CMP every Wednesday > Continue antibiotics including micafungin IV, Cresemba 372mg QD , valganciclovir 900mg BID > Can likely stop micafungin at discharge, will continue at least 3 months cresemba, 4-6wks valganciclovir. May be able to discharge with only cresemba PO per ID. > Repeat CT chest [address] or PRN (last CT 12/20) > Continue aggressive pulmonary hygiene with Aerobika and IS, cough assist > Consult PT/OT Right sided pleural effusion COPD - on 2-3L QHS at baseline - s/p RR 12/16 for incr 02 requirement, thoracentesis 1800cc exudative fluid - s/p chest tube removal 12/29 - 01/05: s/p pecs and anterior scalene peripheral nerve block by acute anesthesia pain service > Continue albuterol nebs Q4H PRN, atrovent nebs Q4H PRN > Continue HEAD START COORDINATOR Symbicort BID, flonase BID, Spiriva daily > Continue lasix 60mg BID, guaifenesin LA 600mg BID > Regular dressing over pleurX site and monitor for fluid output Paroxysmal Atrial Fibrillation with RVR CAD s/p PCI 03/2012 Chronic HFpEF HTN HLD - s/p ablation 2013 - Failed cardioversion at OSH - Previously on amiodarone, d/c'd due to LFTs > Continue lasix 60mg BID, digoxin 250mcg QD, metoprolol 12.5mg BID, and xarelto 20mg QD > Holding HEAD START COORDINATOR Coreg, Cardizem, Vasotect, Lipitor > Continue daily weights, CTM Elevated Alk phos - LFTs WNL - GI consulted across street - 12/20/17: CT A/P w/ contrast without inflammatory mass, ascites, or bowel obstruction. However, fusiform infrarenal abdominal aortic aneurysm measuring up to 4.9 cm in maximum diameter. > Continue nutritional support with calorie count > Consult hepatology if any issues arise > CMP every Wednesday, alk phos continues to improve, AST/ALT WNL > F/u in hepatology clinic on discharge Minimal Pharyngeal Dysphagia - Markedly improved FEEs 01/13 > Stop TF > Continue regular solids/thin liquids > Consult dietitian and STATE TROOPER (STATE TROOPER also working on cough therapy) > PEG tube placed in IR 12/15; can pull prior to discharge as it will have been 1 month Opioid induced constipation: continue docusate 200mg BID, miralax BID, senna 2 tab BID Macrocytic anemia, stable, CTM with CBC Sleep disturbance: melatonin 5mg QHS PRN GERD: PPI Pain Management: Tylenol PRN and lidocaine patches, oxycodone 5mg Q3Hr Skin: There is / are 1 pressure sore(s) including coccyx/buttocks. Continue vit a & d ointment Bowel: continent of bowel Bladder: continent of bladder, passed BVIs x3 until <125ml and ISC for >300ml Nutrition: Current diet: regular as patient is on calorie count Feeding tube: Nocturnal compressed feeds of Nutren 2.0 at 80ml/hr x 8hrs, continue vit C, Vit D, thiamine, multiV Calorie count in place, holding TF for 2 nights Mental Health: consult neuropsychology to provide support / counseling DVT Prophylaxis: Xarelto Code status: DNAR-FI (no CPR or intubation) Nela Santoro D.O., M.B.A. Physical Medicine and Rehabilitation, PGY-2 Pager [phone] Subjective Darrius Salas is a 62 y.o. M seen in his room this morning after showering. He required 4L which soon went back to 2 L. He feels much better than he did over the weekend. Discussed with ID, will put in recommendations today. Objective Vital Signs: Last Filed Vital Signs: 24 Hour Range BP: 107/69 (01/17 802) Temp: 37.2 C (98.9 F) (01/17 0400) Pulse: 82 (12/03 0802) Respirations: 20 PER MINUTE (01/18 400) SpO2: 96 % (01/18 400) O2 Delivery: Nasal Cannula (01/18 400) BP: (107-117)/(68-76) Temp: [37.2 C (98.9 F)-37.4 C (99.3 F)] Pulse: [82-99] Respirations: [18 PER MINUTE-20 PER MINUTE] SpO2: [93 %-97 %] O2 Delivery: Nasal Cannula Intensity Pain Scale (Self Report): 6 (01/17/18 0759) Vitals: 01/15/18 0600 01/16/18 0551 01/17/18 0600 Weight: 76 kg (167 lb 8.8 oz) 76.7 kg (169 lb 3.2 oz) 75.5 kg (166 lb 7.2 oz) Intake/Output Summary: (Last 24 hours) Intake/Output Summary (Last 24 hours) at 01/17/18 1058 Last data filed at 01/17/18 1044 Gross per 24 hour Intake 570 ml Output 400 ml Net 170 ml Stool Occurrence: 1 Oral Diet Order: Regular Last Bowel Movement Date: 01/16/18 Lab: Results for orders placed or performed during the hospital encounter of (from the past 24 hour(s)) URINALYSIS DIPSTICK REFLEX TO CULTURE Collection Time: 01/16/18 11:00 AM # # Low-High Color,UA YELLOW Turbidity,UA CLEAR CLEAR-CLEAR Specific [place]-Urine 1.011 1.003 - 1.035 pH,UA 5.0 5.0 - 8.0 Protein,UA NEG NEG-NEG Glucose,UA NEG NEG-NEG Ketones,UA NEG NEG-NEG Bilirubin,UA NEG NEG-NEG Blood,UA NEG NEG-NEG Urobilinogen,UA NORMAL NORM-NORMAL Nitrite,UA NEG NEG-NEG Leukocytes,UA NEG NEG-NEG Urine Ascorbic Acid, UA NEG NEG-NEG URINALYSIS MICROSCOPIC REFLEX TO CULTURE Collection Time: 01/16/18 11:00 AM # # Low-High WBCs,UA 0-2 0 - 2 /HPF RBCs,UA 0-2 0 - 3 /HPF Comment,UA Urine submitted for reflex culture if criteria are met:WBC>10, positive nitrite and/or >=1+ leukocyte esterase. If quantity is not sufficient, an addendum will follow. MucousUA TRACE CULTURE-BLOOD W/SENSITIVITY Collection Time: 01/16/18 3:30 PM # # Low-High Battery Name BLOOD CULTURE Specimen Description BLOOD LEFT WRIST Special Requests NONE Culture NO GROWTH 1 DAY Report Status CULTURE-BLOOD W/SENSITIVITY Collection Time: 01/16/18 3:35 PM # # Low-High Battery Name BLOOD CULTURE Specimen Description BLOOD PICC LINE TL RED PORT Special Requests NONE Culture NO GROWTH 1 DAY Report Status CBC CELLULAR THERAPEUTICS Collection Time: 01/17/18 6:05 AM # # Low-High White Blood Cells 13.7 (H) 4.5 - 11.0 K/UL RBC 2.78 (L) 4.4 - 5.5 M/UL Hemoglobin 9.9 (L) 13.5 - 16.5 GM/DL Hematocrit 29.3 (L) 40 - 50 % MCV 105.7 (H) 80 - 100 FL MCH 35.7 (H) 26 - 34 PG MCHC 33.8 32.0 - 36.0 G/DL RDW 18.4 (H) 11 - 15 % Platelet Count 277 150 - 400 K/UL MPV 7.1 7 - 11 FL BASIC METABOLIC PANEL CELLULAR THERAPEUTICS Collection Time: 01/17/18 6:05 AM # # Low-High Sodium 132 (L) 137 - 147 MMOL/L Potassium 3.2 (L) 3.5 - 5.1 MMOL/L Chloride 94 (L) 98 - 110 MMOL/L CO2 33 (H) 21 - 30 MMOL/L Anion Gap 5 3 - 12 Glucose 100 70 - 100 MG/DL Blood Urea Nitrogen 8 7 - 25 MG/DL Creatinine 0.59 0.4 - 1.24 MG/DL Calcium 8.5 8.5 - 10.6 MG/DL eGFR Non >60 >60 mL/min eGFR >60 >60 mL/min Physical Exam VS: BP 107/69 | Pulse 82 | Temp 37.2 C (98.9 F) | Ht 182.9 cm (72.01") | Wt 75.5 kg (166 lb 7.2 oz) | SpO2 96% | BMI 22.57 kg/m Gen: Alert & Conversant, No Acute Distress HEENT: Normocephalic, atraumatic, sclera anicteric, conjunctiva not injected, congestion, NC in place 2L Neck: Supple, no elevated JVP Heart: Regular Rate & Rhythm, No Murmur Lungs: Good inspiratory effort , upper airway sounds clear with minimal secretions, left lower lung with some congestion Abdomen: Soft, non-tender, non-distended, PEG in place Skin: Warm, dry Psych: Pleasant mood Therapy Notes & Labs Reviewed. K GRADER * Miguel Angel Armenta RN - 01/17/2018 6:16 AM STOCK GRADER Heart Failure Nursing Progress Note Admission Date: 12/31/2017 LOS: 17 days Admission Weight: 74.3 kg (163 lb 12.8 oz) Most recent weights (inpatient): Vitals: 01/15/18 0600 01/16/18 0551 01/17/18 0600 Weight: 76 kg (167 lb 8.8 oz) 76.7 kg (169 lb 3.2 oz) 75.5 kg (166 lb 7.2 oz) Weight change from previous day:-1.2kg Fluid restriction ordered: No Intake/Output Summary: (Last 24 hours) Intake/Output Summary (Last 24 hours) at 01/17/18 0616 Last data filed at 01/17/18 0005 Gross per 24 hour Intake 420 ml Output 200 ml Net 220 ml Is patient incontinent No Anticipated discharge date: 01/28 Discharge goals: [place] with ADL's Daily Assessment of Patient Stated Goals: Short Term Goal Identified by patient (Short Term=during hospitalization): Manage pain K GRADER * Tim Joiner MD - 01/16/2018 10:05 AM STOCK GRADER Physical Medicine & Rehabilitation Progress Note Today's Date: 01/16/2018 Admission Date: 12/31/2017 LOS: 16 days Insurance: Medicare Principal Problem: Debility Active Problems: CHF (congestive heart failure) (HCC) CAD (coronary artery disease) AF (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) (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 Darrius Salas is a 62 [...] placement, thoracentesis s/p chest tube placement. He now presents to IRF with debility warranting PT/OT/STATE TROOPER therapies. Rehabilitation Plan Rehabilitation: Patient will continue with comprehensive therapies including physical therapy, occupational therapy, speech & language pathology, specialized rehab nursing, neuropsychology and physiatry oversight. Goals: Emily with least assisted device Tentative discharge date: 01/28/18 Recommended therapy after discharge: Home health vs outpatient PT/OT/STATE TROOPER Recommended equipment: Most likely RW, tub transfer bench Daily Functional Update: Transfers Device Sit to Stand Transfer: Assistive Device: 4-Wheeled Walker (01/14/2018 1:00 PM) No Data Recorded Gait Device Assist Required Distance Gait: Assistive Device: 4-Wheeled Walker (01/14/2018 1:00 PM) No Data Recorded Gait Distance: 300 feet (01/14/2018 1:00 PM) Standing Balance Static Dynamic No Data Recorded No Data Recorded Toileting Assist Required Equipment Toilet Transfer Toileting Assist: Minimal Assist (01/14/2018 8:00 AM) Toileting Equipment: Commode - 3 in 1 padded (01/14/2018 8:00 AM) No Data Recorded Dressing Lower Body LE Dressing Assist: Moderate Assist (01/14/2018 8:00 AM) Debility secondary to acute on chronic hypoxic respiratory failure Legionella pneumonia (PNA), invasive necrotizing aspergillosis PNA, BAL with positive HSV & CMV PNA Decreased pulmonary reserve Generalized weakness Decreased endurance Impaired mobility and ADLs - Baseline O2 2-3 L QHS, currently tolerating 2L NC - s/p x3 intubation/extubations - s/p PEA arrest (extubated 11/24) - s/p treatment with linezolid, zosyn - Immunology followed across [place] for multiple opportunistic infxs - 01/05: s/p pecs and anterior scalene peripheral nerve block by acute anesthesia pain service > ID consulted for continuation of care > CMV quant-blood every Wednesday, CMP every Wednesday > Continue antibiotics including micafungin IV, Cresemba 372mg QD , valganciclovir 900mg BID > Can likely stop micafungin at discharge, will continue at least 3 months cresemba, 4-6wks valganciclovir. May be able to discharge with only cresemba PO per ID. > Repeat CT chest 4 weeks [address] last CT or PRN (last CT 12/20) > Continue aggressive pulmonary hygiene with Aerobika and IS, cough assist > Consult PT/OT Right sided pleural effusion COPD - on 2-3L QHS at baseline - s/p RR 12/16 for incr 02 requirement, thoracentesis 1800cc exudative fluid - s/p chest tube removal 12/29 - 01/05: s/p pecs and anterior scalene peripheral nerve block by acute anesthesia pain service > Continue albuterol nebs Q4H PRN, atrovent nebs Q4H PRN > Continue HEAD START COORDINATOR Symbicort BID, flonase BID, Spiriva daily > Continue lasix 60mg BID, guaifenesin LA 600mg BID > Regular dressing over pleurX site and monitor for fluid output Paroxysmal Atrial Fibrillation with RVR CAD s/p PCI 03/2012 Chronic HFpEF HTN HLD - s/p ablation 2013 - Failed cardioversion at OSH - Previously on amiodarone, d/c'd due to LFTs > Continue lasix 60mg BID, digoxin 250mcg QD, metoprolol 12.5mg BID, and xarelto 20mg QD > Holding HEAD START COORDINATOR Coreg, Cardizem, Vasotect, Lipitor > Continue daily weights, weight down, CTM Elevated Alk phos - LFTs WNL - GI consulted across [place] - 12/20/17: CT A/P w/ contrast without inflammatory mass, ascites, or bowel obstruction. However, fusiform infrarenal abdominal aortic aneurysm measuring up to 4.9 cm in maximum diameter. > Continue nutritional support with calorie count > Consult hepatology if any issues arise > CMP every Wednesday, alk phos continues to improve, AST/ALT WNL > F/u in hepatology clinic on discharge Minimal Pharyngeal Dysphagia - Markedly improved FEEs 01/13 > Stop TF > Continue regular solids/thin liquids > Consult dietitian and STATE TROOPER (STATE TROOPER also working on cough therapy) > PEG tube placed in IR 12/15; can pull prior to discharge as it will have been 1 month Opioid induced constipation: continue docusate 200mg BID, miralax BID, senna 2 tab BID Macrocytic anemia, stable, CTM with CBC Sleep disturbance: melatonin 5mg QHS PRN GERD: PPI Fever: 100.6 12/2 AM with associated nausea, will let Pulmonology know, ordered CXR, CBC dif, UA w/ refex cx, sputum cx today, will monitor labs. Pain Management: Tylenol PRN and lidocaine patches, oxycodone 5mg Q3Hr Skin: There is / are 1 pressure sore(s) including coccyx/buttocks. Continue vit a & d ointment Bowel: continent of bowel Bladder: continent of bladder, passed BVIs x3 until <125ml and ISC for >300ml Nutrition: Current diet: regular as patient is on calorie count Feeding tube: Nocturnal compressed feeds of Nutren 2.0 at 80ml/hr x 8hrs, continue vit C, Vit D, thiamine, multiV Calorie count in place, holding TF for 2 nights Mental Health: consult neuropsychology to provide support / counseling DVT Prophylaxis: Xarelto Code status: DNAR-FI (no CPR or intubation) Subjective Darrius Salas is a 62 y.o. M seen in his bed this AM. He reports feeling nauseous last night and persistent this AM. He denies SOB, cough, diarrhea, chills, increased respiratory secretions, dysuria. Objective Vital Signs: Last Filed Vital Signs: 24 Hour Range BP: 112/73 (01/17 924) Temp: 38.1 C (100.6 F) (01/17 800) Pulse: 108 (01/17 924) Respirations: 18 PER MINUTE (01/16 0406) SpO2: 97 % (01/17 800) O2 Delivery: Nasal Cannula (01/17 800) BP: (106-124)/(72-82) Temp: [36.7 C (98 F)-38.1 C (100.6 F)] Pulse: [91-112] Respirations: [16 PER MINUTE-18 PER MINUTE] SpO2: [93 %-97 %] O2 Delivery: Nasal Cannula Intensity Pain Scale (Self Report): 5 (01/15/182010) Vitals: 01/14/18 0551 01/15/18 0600 01/16/18 0551 Weight: 75.6 kg (166 lb 10.7 oz) 76 kg (167 lb 8.8 oz) 76.7 kg (169 lb 3.2 oz) Intake/Output Summary: (Last 24 hours) Intake/Output Summary (Last 24 hours) at 01/16/18 1005 Last data filed at 01/16/18 0900 Gross per 24 hour Intake 940 ml Output 225 ml Net 715 ml Stool Occurrence: 1 Oral Diet Order: Regular Last Bowel Movement Date: 01/16/18 Lab: No results found for this visit on 12/31/17 (from the past 24 hour(s)). Physical Exam VS: BP 112/73 | Pulse 108 | Temp (!) 38.1 C (100.6 F) | Ht 182.9 cm ( 72.01") | Wt 76.7 kg (169 lb 3.2 oz) | SpO2 97% | BMI 22.94 kg/m Gen: Alert & Conversant, No Acute Distress HEENT: Normocephalic, atraumatic, sclera anicteric, conjunctiva not injected, congestion, NC in place 2L Neck: Supple, no elevated JVP Heart: Regular Rate & Rhythm, No Murmur Lungs: Good inspiratory effort , upper airway sounds clear with minimal secretions (no significant change from yest) Abdomen: Soft, non-tender, non-distended, PEG in place Skin: Warm, dry Psych: Pleasant mood Therapy Notes & Labs Reviewed. K GRADER * Zelda Almanza RN - 01/16/2018 6:03 AM STOCK GRADER Heart Failure Nursing Progress Note Admission Date: 12/31/2017 LOS: 16 days Admission Weight: 74.3 kg (163 lb 12.8 oz) Most recent weights (inpatient): Vitals: 01/14/18 0551 01/15/18 0600 01/16/18 0551 Weight: 75.6 kg (166 lb 10.7 oz) 76 kg (167 lb 8.8 oz) 76.7 kg (169 lb 3.2 oz) Weight change from previous day: +0.7kg Fluid restriction ordered: No Intake/Output Summary: (Last 24 hours) Intake/Output Summary (Last 24 hours) at 01/16/18 0603 Last data filed at 01/16/18 0551 Gross per 24 hour Intake 880 ml Output 225 ml Net 655 ml Is patient incontinent: No Anticipated discharge date: 01/18 Discharge goals: [place] with ADLs Daily Assessment of Patient Stated Goals: Short Term Goal Identified by patient (Short Term=during hospitalization): Decreased Pain K GRADER * Zelda Almanza RN - 01/16/2018 6:01 AM STOCK GRADER Pt complains of not feeling well. Reports nausea, emesis x3 this week, and general malaise. Low grade fever of 99.6F. Dr menendez. Will continue to monitor systems. K GRADER * Ijeoma Jaimes RN - 01/15/2018 7:57 PM STOCK GRADER Heart Failure Nursing Progress Note Admission Date: 12/31/2017 LOS: 15 days Admission Weight: 74.3 kg (163 lb 12.8 oz) Most recent weights (inpatient): Vitals: 01/13/18 0640 01/14/18 0551 01/15/18 0600 Weight: 75.4 kg (166 lb 3.6 oz) 75.6 kg (166 lb 10.7 oz) 76 kg (167 lb 8.8 oz) Weight change from previous day +0.4 kg Fluid restriction ordered:N/A Intake/Output Summary: (Last 24 hours) Intake/Output Summary (Last 24 hours) at 01/15/181956 Last data filed at 01/15/18 1630 Gross per 24 hour Intake 640 ml Output 400 ml Net 240 ml Is patient incontinent No Anticipated discharge date:01/18 Discharge goals: Be more independent w/ ADLs Daily Assessment of Patient Stated Goals: Short Term Goal Identified by patient (Short Term=during hospitalization): Have Decreased Pain K GRADER * Kobe Howe - 01/15/2018 10:03 AM STOCK GRADER RT Adult Assessment Note NAME:Darrius Salas :1955 AGE: 62 y.o. ADMISSION DATE: 12/31/2017 DAYS ADMITTED: LOS: 15 days RT Treatment Plan: Protocol Plan: Medications Albuterol: MDI PRN Tiotropium: MDI Q Day Protocol Plan: Procedures Oxygen/Humidity: O2 to keep SpO2 > 92% Monitoring: Pulse oximetry BID & PRN Comment: Symbicort BID Additional Comments: Impressions of the patient: patient is alert and oriented Intervention(s)/outcome(s): none Patient education that was completed: none Recommendations to the care team: none Vital Signs: Pulse: Pulse: 80 RR: Respirations: 18 PER MINUTE SpO2: SpO2: 95 % O2 Device: $$ O2 Device: Cannula Liter Flow: O2 Liter Flow: 3 lpm O2%: O2 Percent: 95 % Breath Sounds: Respiratory Effort: Respiratory Effort: Non-Labored K GRADER * Tim Joiner MD - 01/15/2018 8:40 AM STOCK GRADER Physical Medicine & Rehabilitation Progress Note Today's Date: 01/15/2018 Admission Date: 12/31/2017 LOS: 15 days Insurance: Medicare Principal Problem: Debility Active Problems: CHF (congestive heart failure) (HCC) CAD (coronary artery disease) AF (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) (HCC) 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 Darrius Salas is a 62 [...] placement, thoracentesis s/p chest tube placement. He now presents to IRF with debility warranting PT/OT/STATE TROOPER therapies. Rehabilitation Plan Rehabilitation: Patient will continue with comprehensive therapies including physical therapy, occupational therapy, speech & language pathology, specialized rehab nursing, neuropsychology and physiatry oversight. Goals: Emily with least assisted device Tentative discharge date: 01/28/18 Recommended therapy after discharge: Home health vs outpatient PT/OT/STATE TROOPER Recommended equipment: Most likely RW, tub transfer bench Daily Functional Update: Transfers Device Sit to Stand Transfer: Assistive Device: 4-Wheeled Walker (01/14/2018 1:00 PM) No Data Recorded Gait Device Assist Required Distance Gait: Assistive Device: 4-Wheeled Walker (01/14/2018 1:00 PM) No Data Recorded Gait Distance: 300 feet (01/14/2018 1:00 PM) Standing Balance Static Dynamic No Data Recorded No Data Recorded Toileting Assist Required Equipment Toilet Transfer Toileting Assist: Minimal Assist (01/14/2018 8:00 AM) Toileting Equipment: Commode - 3 in 1 padded (01/14/2018 8:00 AM) No Data Recorded Dressing Lower Body LE Dressing Assist: Moderate Assist (01/14/2018 8:00 AM) Debility secondary to acute on chronic hypoxic respiratory failure Legionella pneumonia (PNA), invasive necrotizing aspergillosis PNA, BAL with positive HSV & CMV PNA Decreased pulmonary reserve Generalized weakness Decreased endurance Impaired mobility and ADLs - Baseline O2 2-3 L QHS, currently tolerating 2L NC - s/p x3 intubation/extubations - s/p PEA arrest (extubated 11/24) - s/p treatment with linezolid, zosyn - Immunology followed across street for multiple opportunistic infxs - 01/05: s/p pecs and anterior scalene peripheral nerve block by acute anesthesia pain service > ID consulted for continuation of care > CMV quant-blood every Wednesday, CMP every Wednesday > Continue antibiotics including micafungin IV, Cresemba 372mg QD , valganciclovir 900mg BID > Can likely stop micafungin at discharge, will continue at least 3 months cresemba, 4-6wks valganciclovir. May be able to discharge with only cresemba PO per ID. > Repeat CT chest 4 weeks [address] or PRN (last CT 12/20) > Continue aggressive pulmonary hygiene with Aerobika and IS, cough assist > Consult PT/OT Right sided pleural effusion COPD - on 2-3L QHS at baseline - s/p RR 12/16 for incr 02 requirement, thoracentesis 1800cc exudative fluid - s/p chest tube removal 12/29 - 01/05: s/p pecs and anterior scalene peripheral nerve block by acute anesthesia pain service > Continue albuterol nebs Q4H PRN, atrovent nebs Q4H PRN > Continue HEAD START COORDINATOR Symbicort BID, flonase BID, Spiriva daily > Continue lasix 60mg BID, guaifenesin LA 600mg BID > Regular dressing over pleurX site and monitor for fluid output Paroxysmal Atrial Fibrillation with RVR CAD s/p PCI 03/2012 Chronic HFpEF HTN HLD - s/p ablation 2013 - Failed cardioversion at OSH - Previously on amiodarone, d/c'd due to LFTs > Continue lasix 60mg BID, digoxin 250mcg QD, metoprolol 12.5mg BID, and xarelto 20mg QD > Holding HEAD START COORDINATOR Coreg, Cardizem, Vasotect, Lipitor > Continue daily weights, weight down, CTM Elevated Alk phos - LFTs WNL - GI consulted across street - 12/20/17: CT A/P w/ contrast without inflammatory mass, ascites, or bowel obstruction. However, fusiform infrarenal abdominal aortic aneurysm measuring up to 4.9 cm in maximum diameter. > Continue nutritional support with calorie count > Consult hepatology if any issues arise > CMP every Wednesday, alk phos continues to improve, AST/ALT WNL > F/u in hepatology clinic on discharge Minimal Pharyngeal Dysphagia - Markedly improved FEEs 01/13 > Stop TF > Continue regular solids/thin liquids > Consult dietitian and STATE TROOPER (STATE TROOPER also working on cough therapy) > PEG tube placed in IR 12/15; can pull prior to discharge as it will have been 1 month Opioid induced constipation: continue docusate 200mg BID, miralax BID, senna 2 tab BID Macrocytic anemia, stable, CTM with CBC Sleep disturbance: melatonin 5mg QHS PRN GERD: PPI Pain Management: Tylenol PRN and lidocaine patches, oxycodone 5mg Q3Hr Skin: There is / are 1 pressure sore(s) including coccyx/buttocks. Continue vit a & d ointment Bowel: continent of bowel Bladder: continent of bladder, passed BVIs x3 until <125ml and ISC for >300ml Nutrition: Current diet: regular as patient is on calorie count Feeding tube: Nocturnal compressed feeds of Nutren 2.0 at 80ml/hr x 8hrs, continue vit C, Vit D, thiamine, multiV Calorie count in place, holding TF for 2 nights Mental Health: consult neuropsychology to provide support / counseling DVT Prophylaxis: Bkrelmadeleine Code status: DNAR-FI (no CPR or intubation) Subjective Darrius Salas is a 62 y.o. M seen in his room this morning sitting at bedside. He feels therapies are going well, endorses IS use he denies SOB, N&V, FERGUSON. He reports stable rib pain. Objective Vital Signs: Last Filed Vital Signs: 24 Hour Range BP: 113/72 (01/15 503) Temp: 36.7 C (98.1 F) (01/15 503) Pulse: 80 (01/15 822) Respirations: 18 PER MINUTE (01/15 822) SpO2: 95 % (01/15 822) O2 Delivery: Nasal Cannula (01/15 503) BP: (113-130)/(72) Temp: [36.4 C (97.6 F)-36.9 C (98.5 F)] Pulse: [68-92] Respirations: [18 PER MINUTE] SpO2: [95 %-100 %] O2 Delivery: Nasal Cannula Intensity Pain Scale (Self Report): 4 (01/14/18 2100) Vitals: 01/13/18 0640 01/14/18 0551 01/15/18 0600 Weight: 75.4 kg (166 lb 3.6 oz) 75.6 kg (166 lb 10.7 oz) 76 kg (167 lb 8.8 oz) Intake/Output Summary: (Last 24 hours) Intake/Output Summary (Last 24 hours) at 01/15/18 0841 Last data filed at 01/15/18 0503 Gross per 24 hour Intake 450 ml Output 1050 ml Net -600 ml Stool Occurrence: 1 Oral Diet Order: Regular Last Bowel Movement Date: 01/14/18 Lab: No results found for this visit on 12/31/17 (from the past 24 hour(s)). Physical Exam VS: BP 113/72 (BP Source: Arm, Left Upper) | Pulse 80 | Temp 36.7 C (98.1 F) | Ht 182.9 cm (72.01") | Wt 76 kg (167 lb 8.8 oz) | SpO2 95% | BMI 22.72 kg/m Gen: Alert & Conversant, No Acute Distress HEENT: Normocephalic, atraumatic, sclera anicteric, conjunctiva not injected, congestion, NC in place 2L Neck: Supple, no elevated JVP Heart: Regular Rate & Rhythm, No Murmur Lungs: Good inspiratory effort , upper airway sounds clear with minimal secretions Abdomen: Soft, non-tender, non-distended, PEG in place Skin: Warm, dry Ext: No edema or erythema noted in b/l lower limbs Therapy Notes & Labs Reviewed. K GRADER * Lorrie Ames RN - 01/15/2018 6:11 AM STOCK GRADER Heart Failure Nursing Progress Note Admission Date: 12/31/2017 LOS: 15 days Admission Weight: 74.3 kg (163 lb 12.8 oz) Most recent weights (inpatient): Vitals: 01/13/18 0640 01/14/18 0551 01/15/18 0600 Weight: 75.4 kg (166 lb 3.6 oz) 75.6 kg (166 lb 10.7 oz) 76 kg (167 lb 8.8 oz) Weight change from previous day: +0.4 Fluid restriction ordered: N/A Intake/Output Summary: (Last 24 hours) Intake/Output Summary (Last 24 hours) at 01/15/18 0612 Last data filed at 01/15/18 0503 Gross per 24 hour Intake 570 ml Output 1250 ml Net -680 ml Is patient incontinent No Anticipated discharge date: 01/18 Discharge goals: Be more independent with ADLs Daily Assessment of Patient Stated Goals: Short Term Goal Identified by patient (Short Term=during hospitalize Have decreased pain K GRADER * Ijeoma Jaimes RN - 01/14/2018 7:06 PM STOCK GRADER Heart Failure Nursing Progress Note Admission Date: 12/31/2017 LOS: 14 days Admission Weight: 74.3 kg (163 lb 12.8 oz) Most recent weights (inpatient): Vitals: 01/12/18 0558 01/13/18 0640 01/14/18 0551 Weight: 76.3 kg (168 lb 3.2 oz) 75.4 kg (166 lb 3.6 oz) 75.6 kg (166 lb 10.7 oz ) Weight change from previous day:+0.2kg Fluid restriction ordered: None Intake/Output Summary: (Last 24 hours) Intake/Output Summary (Last 24 hours) at 01/14/18 1906 Last data filed at 01/14/18 1800 Gross per 24 hour Intake 840 ml Output 1350 ml Net -510 ml Is patient incontinent No Anticipated discharge date:01/18 Discharge goals: Be more independent w/ ADLs Daily Assessment of Patient Stated Goals: Short Term Goal Identified by patient (Short Term=during hospitalization): Decrease pain K GRADER * Kierra Gallegos APRN-NP - 01/14/2018 1:00 PM STOCK GRADER Pulmonary Progress Note Name: Darrius Salas Today's Date: 01/14/2018 Admission Date: 12/31/2017 LOS: 14 days Impression: 1. COPD with emphysematous blebs -tobacco use 0.5 - 2.5 ppd x 40 years -> cessation since recent admission -on Symbicort, Spiriva, albuterol 2. Acute on chronic hypoxic respiratory failure -baseline O2=2-3 L at night -initially transferred to [facility] in late October for worsening acute on chronic respiratory failure and progression of infectious pneumonitis d/t Legionella -> required ventilatory support -BAL Cx (+) Aspergillus, Tamar Glabarta, HSV, CMV -s/p intubation x 3 3. Right Pleural Effusion, loculated (improved; drain removed 12/29/17) -thoracentesis 12/16 -> removed 1800 ml exudative fluid -Chest tube placement 12/22 -> 12/29 -on Lasix 60 mg BID 4. Recent Septic Shock with polymicrobial Pneumonia - Legionella, C. Glabrata, Necrotizing Aspergillus 5. s/p PEA Arrest -now with multiple anterior rib fractures, paradoxical movement of the anteior chest wall, and sternal chest pain -> limits airway clearance 6. Atrial Fibrillation - s/p ablation in 2013 - HEAD START COORDINATOR xarelto, diltiazem - was cardioverted unsuccessfully at OSH, treated with amio, dig load (?) and diltiazem - history of PCI to RCA in March 2012 7. Severe Musculoskeletal Disability and Deconditioning -Ongoing active participation in rehab Recommendations: - Continue inhaler regimen with Symbicort, Spiriva, and albuterol - Continue abx per ID - Continue aggressive pulmonary hygiene with OOB, IS, Acapella - Continue to wean O2 to keep SpO2 > 90%, though I suspect he will require oxygen on discharge given severity of his lung disease and evidence of hypercapnic failure with elevated serum bicarb - Continue tobacco cessation - History of nocturnal hypoxemia with elevated serum bicarb (though he is still considered in acute phase of illness and this may not represent his baseline) - recommend sleep study as an outpatient after discharge to assess for underlying DEYSI - Agree with plan for repeat CT in 4 week per ID - Given ongoing improvement in airway clearance without cough assist pulmonary will sign off at this time - if he were to develop issues could add cough assist back, though this seems unlikely given his ongoing clinical improvement and strength We will continue to follow. Above plan discussed with attending physician, Dr. Chawla. Kierra Gallegos, TIEDOWN OPERATOR-BALLISTICS TESTER Pager [phone] Subjective Resting comfortably in bed at time of visit. Reports sputum production has increased with increasing activity. Sputum remains clear/white. Denies any increase in shortness of breath. Some increase in chest discomfort today d/t missing AM pain medication. Review of Systems Constitutional: Positive for malaise/fatigue. Negative for chills and fever. Respiratory: Positive for cough, sputum production and shortness of breath. Negative for hemoptysis. Cardiovascular: Negative for chest pain and leg swelling. Gastrointestinal: Positive for constipation, heartburn and nausea. Negative for diarrhea and vomiting. Musculoskeletal: Negative for myalgias. Neurological: Negative for dizziness and headaches. All other systems reviewed and are negative. Objective Vital Signs: Last Filed Vital Signs: 24 Hour Range BP: 102/76 (01/14 0820) Temp: 36.8 C (98.3 F) (01/14 449) Pulse: 92 (01/14 0910) Respirations: 20 PER MINUTE (01/14 449) SpO2: 96 % (01/14 0910) O2 Delivery: Nasal Cannula (01/14 449) BP: (102-124)/(71-76) Temp: [36.4 C (97.6 F)-36.8 C (98.3 F)] Pulse: [85-107] Respirations: [20 PER MINUTE] SpO2: [96 %-98 %] O2 Delivery: Nasal Cannula Intake/Output Summary: (Last 24 hours) Intake/Output Summary (Last 24 hours) at 01/14/18 1300 Last data filed at 01/14/18 0940 Gross per 24 hour Intake 480 ml Output 600 ml Net -120 ml General: Awake, in no acute distress. HEENT: NC/AT, sclera non-icteric, moist mucus membranes. Neck: no JVD. CV: regular rhythm, normal rate, no murmurs. Lungs: CTA bilaterally, on 2 L O2 - paradoxical chest movement Abdomen: soft, non-tender, non-distended, normo-active bowel sounds Extremities: 1+ BLE edema, pedal pulses 2 (+) bilaterally Neuro: no focal deficits Skin: no rashes Lab Review Recent CBC Recent Labs 01/12/18 0610 01/14/18 0615 WBC 8.2 6.4 HGB 10.5* 10.2* HCT 32.3* 30.4* PLTCT 298 303 MCV 107.8* 105.3* Recent CMP Recent Labs 01/12/18 0610 01/14/18614 NA 134* 135* K 3.3* 3.6 CL 95* 97* CO2 34* 32* GAP 5 6 BUN 9 8 CR 0.46 0.56 GFR >60 >60 GLU 102* 104* CA 9.0 8.7 Other labs Pertinent labs reviewed Point of Care Testing (Last 24 hours) Glucose: (!) 104 (01/14/18614) Radiology and other Diagnostics Review: No new imaging to review Medications Scheduled IV PRN ascorbic acid (VITAMIN C) tablet 500 [...] patch 1-2 patch 1-2 patch Topical QDAY metoprolol tartrate (LOPRESSOR) tablet 12.5 mg 12.5 mg Oral BID micafungin (MYCAMINE) 150 mg in sodium chloride 0.9% (NS) 110 mL IVPB 150 mg Intravenous Q24H* pantoprazole DR (PROTONIX) tablet 40 mg 40 mg Oral QDAY(21) polyethylene glycol 3350 (MIRALAX) packet 17 g 1 packet Oral BID rivaroxaban (XARELTO) tablet 20 mg 20 mg Oral QDAY w/breakfast senna (SENOKOT) tablet 2 tablet 2 tablet [...] tablet 1 tablet 1 tablet Oral QDAY acetaminophen Q4H PRN, albuterol Q4H PRN, aluminum/magnesium hydroxide Q4H PRN , bisacodyl QDAY PRN, dextran 70/hypromellose Q6H PRN, melatonin QHS PRN, milk of magnesia (CONC) Q4H PRN, ondansetron Q6H PRN, oxyCODONE Q4H PRN, pancrelipase 20,000 Units/ sodium bicarbonate 650 mg(#) PRN (Salad Bar Clerk from Rx), phenol PRN K GRADER * Nela Barragan - 01/14/2018 9:57 AM STOCK GRADER SPEECH-LANGUAGE PATHOLOGY REHAB SPEECH DAILY NOTE SUMMARY: Pt seen by STATE TROOPER for 30 minutes targeting dysphagia and speech. PLAN: Continue current therapy plan. FREQUENCY TODAY: 1x RECOMMENDATIONS: Regular/thin liquids with use of strategies. Medications whole with thin liquids. Ongoing speech therapy targeting breath support for speech. ACTIVITIES FOR THE DAY: Pt completed expiratory strengthening exercise with use of EMST device for 5 sets of x5 repetitions at 35 cmH2O. Pt required mild verbal cues for accuracy and management of time for accurate rest breaks in between breaths and sets. Pt generated productive cough following exercises x3 with expectoration of minimal , thick cloudy secretions. Pt utilized oral suction independently. Prompted pt to complete exercises tomorrow for day 5, with plan to increase resistance next week. Speech Freight [place] Goals STATE TROOPER Shelter Goals: Yes Will maximize speech production for independent communication with: Minimal assist Patient will exhibit safe swallow for least restrictive consistency: Progressing Other Freight [place] Goals: Achieved Speech Short Term Goals Other (comment): Pt will demonstrate breath support sufficient to generate x10- 12 syllables per breath group given minimal cues. Dysphagia: Yes Will tolerate current diet without signs of aspiration: Progressing Will participate in repeat instrumental swallow evaluation when clinically indicated: Progressing Therapist: Nela Barragan M.S., L/CCC-STATE TROOPER Date: 01/14/2018 K GRADER * Nela Santoro MD - 01/14/2018 9:34 AM STOCK GRADER Physical Medicine & Rehabilitation Progress Note Today's Date: 01/14/2018 Admission Date: 12/31/2017 LOS: 14 days Insurance: Medicare Principal Problem: Debility Active Problems: CHF (congestive heart failure) (HCC) CAD (coronary artery disease) AF (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) (HCC) jail current use of anticoagulant COPD (chronic obstructive pulmonary disease) (HCC) HTN (hypertension) HLD (hyperlipidemia) Alcohol abuse Tobacco abuse S/P ablation of 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 Pneumonia Respiratory failure, [id number] (HCC) Cytomegalovirus (CMV) viremia (HCC) Impaired mobility and activities of daily living Assessment/Plan: Mr. Darrius Salas is a 62 [...] placement, thoracentesis s/p chest tube placement. He now presents to IRF with debility warranting PT/OT/STATE TROOPER therapies. Rehabilitation Plan Rehabilitation: Patient will continue with comprehensive therapies including physical therapy, occupational therapy, speech & language pathology, specialized rehab nursing, neuropsychology and physiatry oversight. Goals: Emily with least assisted device Tentative discharge date: 01/28/18 Recommended therapy after discharge: Home health vs outpatient PT/OT/STATE TROOPER Recommended equipment: Most likely RW, tub transfer bench Daily Functional Update: Transfers Device Sit to Stand Transfer: Assistive Device: Roller Walker (01/14/2018 8:00 AM) No Data Recorded Gait Device Assist Required Distance Gait: Assistive Device: Roller Walker (01/13/2018 12:00 PM) No Data Recorded Gait Distance: 300 feet (total) (01/13/2018 12:00 PM) Standing Balance Static Dynamic No Data Recorded No Data Recorded Toileting Assist Required Equipment Toilet Transfer Toileting Assist: Minimal Assist (01/14/2018 8:00 AM) Toileting Equipment: Commode - 3 in 1 padded (01/14/2018 8:00 AM) No Data Recorded Dressing Lower Body LE Dressing Assist: Moderate Assist (01/14/2018 8:00 AM) Debility secondary to acute on chronic hypoxic respiratory failure Legionella pneumonia (PNA), invasive necrotizing aspergillosis PNA, BAL with positive HSV & CMV PNA Decreased pulmonary reserve Generalized weakness Decreased endurance Impaired mobility and ADLs - Baseline O2 2-3 L QHS, currently tolerating 2L NC - s/p x3 intubation/extubations - s/p PEA arrest (extubated 11/24) - s/p treatment with linezolid, zosyn - Immunology followed across [place] for multiple opportunistic infxs - 01/05: s/p pecs and anterior scalene peripheral nerve block by acute anesthesia pain service > ID consulted for continuation of care > CMV quant-blood every Wednesday, CMP every Wednesday > Continue antibiotics including micafungin IV, Cresemba 372mg QD , valganciclovir 900mg BID > Can likely stop micafungin at discharge, will continue at least 3 months cresemba, 4-6wks valganciclovir. May be able to discharge with only cresemba PO per ID. > Repeat CT chest [address] or PRN (last CT 12/20) > Continue aggressive pulmonary hygiene with Aerobika and IS, cough assist > Consult PT/OT Right sided pleural effusion COPD - on 2-3L QHS at baseline - s/p RR 12/16 for incr 02 requirement, thoracentesis 1800cc exudative fluid - s/p chest tube removal 12/29 - 01/05: s/p pecs and anterior scalene peripheral nerve block by acute anesthesia pain service > Continue albuterol nebs Q4H PRN, atrovent nebs Q4H PRN > Continue HEAD START COORDINATOR Symbicort BID, flonase BID, Spiriva daily > Continue lasix 60mg BID, guaifenesin LA 600mg BID > Regular dressing over pleurX site and monitor for fluid output Paroxysmal Atrial Fibrillation with RVR CAD s/p PCI 03/2012 Chronic HFpEF HTN HLD - s/p ablation 2013 - Failed cardioversion at OSH - Previously on amiodarone, d/c'd due to LFTs > Continue lasix 60mg BID, digoxin 250mcg QD, metoprolol 12.5mg BID, and xarelto 20mg QD > Holding HEAD START COORDINATOR Coreg, Cardizem, Vasotect, Lipitor > Continue daily weights, weight down, CTM Elevated Alk phos - LFTs WNL - GI consulted across street - 12/20/17: CT A/P w/ contrast without inflammatory mass, ascites, or bowel obstruction. However, fusiform infrarenal abdominal aortic aneurysm measuring up to 4.9 cm in maximum diameter. > Continue nutritional support with calorie count > Consult hepatology if any issues arise > CMP every Wednesday, alk phos continues to improve, AST/ALT WNL > F/u in hepatology clinic on discharge Minimal Pharyngeal Dysphagia - Markedly improved FEEs 01/13 > Stop TF > Continue regular solids/thin liquids > Consult dietitian and STATE TROOPER (STATE TROOPER also working on cough therapy) > PEG tube placed in IR 12/15; can pull prior to discharge as it will have been 1 month Opioid induced constipation: continue docusate 200mg BID, miralax BID, senna 2 tab BID Macrocytic anemia, stable, CTM with CBC Sleep disturbance: melatonin 5mg QHS PRN GERD: PPI Pain Management: Tylenol PRN and lidocaine patches, oxycodone 5mg Q3Hr Skin: There is / are 1 pressure sore(s) including coccyx/buttocks. Continue vit a & d ointment Bowel: continent of bowel Bladder: continent of bladder, passed BVIs x3 until <125ml and ISC for >300ml Nutrition: Current diet: regular as patient is on calorie count Feeding tube: Nocturnal compressed feeds of Nutren 2.0 at 80ml/hr x 8hrs, continue vit C, Vit D, thiamine, multiV Calorie count in place, holding TF for 2 nights Mental Health: consult neuropsychology to provide support / counseling DVT Prophylaxis: Xarelto Code status: DNAR-FI (no CPR or intubation) Nela Santoro D.O.,M.B.A. Physical Medicine and Rehabilitation, PGY-2 Pager [phone] Subjective Darrius Salas is a 62 y.o. M seen in his room this morning, currently on 2L and feeling well. No acute events overnight. Did not need cough assist yesterday. No other complaints at this time. Encouraged oral intake, holding TF Likely need CT chest next week. Objective Vital Signs: Last Filed Vital Signs: 24 Hour Range BP: 102/76 (01/15 820) Temp: 36.8 C (98.3 F) (01/14 449) Pulse: 107 (01/15 820) Respirations: 20 PER MINUTE (01/14 449) SpO2: 96 % (01/14 449) O2 Delivery: Nasal Cannula (01/14 449) BP: (102-137)/(71-77) Temp: [36.3 C (97.4 F)-36.8 C (98.3 F)] Pulse: [85-107] Respirations: [20 PER MINUTE] SpO2: [96 %-98 %] O2 Delivery: Nasal Cannula Intensity Pain Scale (Self Report): 5 (01/13/18 2100) Vitals: 01/12/18 0558 01/13/18 0640 01/14/18 0551 Weight: 76.3 kg (168 lb 3.2 oz) 75.4 kg (166 lb 3.6 oz) 75.6 kg (166 lb 10.7 oz ) Intake/Output Summary: (Last 24 hours) Intake/Output Summary (Last 24 hours) at 01/14/18 0934 Last data filed at 01/14/18 0820 Gross per 24 hour Intake 420 ml Output 675 ml Net -255 ml Stool Occurrence: 1 Oral Diet Order: Regular Last Bowel Movement Date: 01/13/18 Lab: Results for orders placed or performed during the hospital encounter of (from the past 24 hour(s)) CBC CELLULAR THERAPEUTICS Collection Time: 01/14/18 6:15 AM # # Low-High White Blood Cells 6.4 4.5 - 11.0 K/UL RBC 2.89 (L) 4.4 - 5.5 M/UL Hemoglobin 10.2 (L) 13.5 - 16.5 GM/DL Hematocrit 30.4 (L) 40 - 50 % MCV 105.3 (H) 80 - 100 FL MCH 35.3 (H) 26 - 34 PG MCHC 33.5 32.0 - 36.0 G/DL RDW 19.4 (H) 11 - 15 % Platelet Count 303 150 - 400 K/UL MPV 7.0 7 - 11 FL BASIC METABOLIC PANEL CELLULAR THERAPEUTICS Collection Time: 01/14/18 6:15 AM # # Low-High Sodium 135 (L) 137 - 147 MMOL/L Potassium 3.6 3.5 - 5.1 MMOL/L Chloride 97 (L) 98 - 110 MMOL/L CO2 32 (H) 21 - 30 MMOL/L Anion Gap 6 3 - 12 Glucose 104 (H) 70 - 100 MG/DL Blood Urea Nitrogen 8 7 - 25 MG/DL Creatinine 0.56 0.4 - 1.24 MG/DL Calcium 8.7 8.5 - 10.6 MG/DL eGFR Non >60 >60 mL/min eGFR >60 >60 mL/min Physical Exam VS: BP 102/76 | Pulse 107 | Temp 36.8 C (98.3 F) | Ht 182.9 cm (72.01") | Wt 75.6 kg (166 lb 10.7 oz) | SpO2 96% | BMI 22.60 kg/m Gen: Alert & Conversant, No Acute Distress HEENT: Normocephalic, atraumatic, sclera anicteric, conjunctiva not injected, congestion, NC in place 2L Neck: Supple, no elevated JVP Heart: Regular Rate & Rhythm, No Murmur Lungs: Good inspiratory effort , upper airway sounds clear with minimal secretions Abdomen: Soft, non-tender, non-distended, PEG in place Skin: Warm, dry Ext: No edema or erythema noted in b/l lower limbs MS: Proximal muscle weakness stable Therapy Notes & Labs Reviewed. K GRADER Associated attestation - Tim Joiner MD - 01/14/2018 4:43 PM STOCK GRADER Rehabilitation Medicine Attending Physician Attestation: I personally performed gaytan portions of the history and exam. I discussed the case with the resident and agree with the resident's documentation of history, physical assessment and treatment plan unless otherwise noted. Thank you for allowing us to participate in the care of this patient. Tim Joiner MD 01/14/2018 4:43 PM Attending physician * Lorrie Ames RN - 01/14/2018 7:30 AM STOCK GRADER Heart Failure Nursing Progress Note Admission Date: 12/31/2017 LOS: 14 days Admission Weight: 74.3 kg (163 lb 12.8 oz) Most recent weights (inpatient): Vitals: 01/12/18 0558 01/13/18 0640 01/14/18 0551 Weight: 76.3 kg (168 lb 3.2 oz) 75.4 kg (166 lb 3.6 oz) 75.6 kg (166 lb 10.7 oz ) Weight change from previous day: +0.2 Fluid restriction ordered: None Intake/Output Summary: (Last 24 hours) Intake/Output Summary (Last 24 hours) at 01/14/18 0730 Last data filed at 01/13/18 2100 Gross per 24 hour Intake 620 ml Output 1025 ml Net -405 ml Is patient incontinent No Anticipated discharge date: 01/18 Discharge goals: Be more independent with ADLs Daily Assessment of Patient Stated Goals: Short Term Goal Identified by patient (Short Term=during hospitalization): Decreased pain K GRADER * Ijeoma Jaimes RN - 01/13/2018 7:01 PM STOCK GRADER Heart Failure Nursing Progress Note Admission Date: 12/31/2017 LOS: 13 days Admission Weight: 74.3 kg (163 lb 12.8 oz) Most recent weights (inpatient): Vitals: 01/11/18 0649 01/12/18 0558 01/13/18 0640 Weight: 75.1 kg (165 lb 8 oz) 76.3 kg (168 lb 3.2 oz) 75.4 kg (166 lb 3.6 oz) Weight change from previous day:-0.9kg Fluid restriction ordered: none Intake/Output Summary: (Last 24 hours) Intake/Output Summary (Last 24 hours) at 01/13/18 1901 Last data filed at 01/13/18 1150 Gross per 24 hour Intake 520 ml Output 1025 ml Net -505 ml Is patient incontinent No Anticipated discharge date: 01/18 Discharge goals: Go home Daily Assessment of Patient Stated Goals: Short Term Goal Identified by patient (Short Term=during hospitalization): Decrease pain K GRADER * Patrica Zapien - 01/13/2018 3:11 PM STOCK GRADER CLINICAL NUTRITION Clinical Nutrition Follow-Up Summary NAME:Darrius Salas :1955 AGE: 62 y.o. ADMISSION DATE: 12/31/2017 DAYS ADMITTED: LOS: 13 days Nutrition Assessment of Patient: Malnutrition Assessment: Does not meet criteria Current Oral Intake: Inadequate, Improving Estimated Calorie Needs: 7419-7751 (25-30kcal/kg of 74kg) Estimated Protein Needs: 89-104 (1.2-1.4g/kg of 74kg) Oral Diet Order: Regular Oral Supplement: Boost Plus, BID (with CIB mixed in; snacks) 2-day Calorie Count Avg: Intake (calories) Daily Average : 741 kilocalories (40%) Intake (protein) Daily Average : 26 grams (29%) Comments: Pt admitted to inpatient rehab on 12/31 for debility. PMH of COPD, tobacco/etoh use, CAD s/p PCI admitted as a transfer from an OSH for resp failure 2/2 PNA & inability to wean off vent s/p 3 intubations. Pt required EN feeds. He gradually returned to a regular textured diet on 12/30. Pt came to rehab on nocturnal feeds to allow for PO intake during the day. Hold placed 01/11 due to ongoing marginal intake. First full day s/p no EN, pt only consumed 925kcal and 43g protein. He reported today feeling full and states typical habit at home of eating small meals with large meal at dinner. Pt states often skipping breakfast and lunch in rehab due to increased fullness following meal close to rehab therapy. Worked with pt on simpler meal ideas to include smoothies and selection of nonperishable foods to keep by bedside during the day. Reiterated importance of meeting calorie/protein goals, reviewing yesterday's intake. Pt is motivated to meet goals to avoid continued EN. As of this afternoon, removed EN from order. Therefore, RD d/c'd calorie count and will continue weight monitoring to ensure adequacy of diet. Pt liked ideas of smoothies for first two meals and having fruit, nuts from home, and PB as snack options between meals. Helped pt go through snack bag brought by to select the most nutritious items. Noted beef jerky, nuts, and jam to add to requested PB sandwich if desired. Brought pt carton of Boost since he did not like lunch. Placed request for smoothie in morning with RD assistant golf coach. Roshan on board. No gi distress. No longer with pressure injuries per wound team 01/11. Weight is stable. Recommendation: Continue hold of EN to allow more time for appetite to return. Encourage smoothies or Cartons of Boost if skipping a meal (note, pt not wanting to eat too close to therapy and often skipping meals). RD to dc calorie count 2/2 EN being d/c'd. Intervention / Plan: Encouraged PO intake efforts, use of protein drinks; provided Boost at Lunch, placed smoothie order for breakfast Monitor PO intake, wt DC calorie count, modified supplement Monitor skin, gi, meds, fluids Nutrition Diagnosis: Inadequate oral intake Etiology: decreased appetite, altered taste, recent modified food textured diet Signs & Symptoms: pt report, continued need for supplemental EN Goals: Transition from enteral to oral Time Frame: Within 72 Hours Status: Met;no longer appropriate PO intake to meet >85% nutritional needs Time Frame: Within 72 Hours Status: Partially met;Ongoing Patrica Zapien RD, LD *[id number] K GRADER * Beatriz Ortiz MD - 01/13/2018 1:37 PM STOCK GRADER ATTESTATION I personally performed the gaytan portions of the E/M visit, discussed case with resident and concur with resident documentation of history, physical exam, assessment, and treatment plan unless otherwise noted. My additions to the resident's note are in the text and highlighted in blue. 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 Darrius Salas is a 62 [...] placement, thoracentesis s/p chest tube placement. He now presents to IRF with debility warranting PT/OT/STATE TROOPER therapies. Rehabilitation Plan Rehabilitation: Patient will continue with comprehensive therapies including physical therapy, occupational therapy, speech & language pathology, specialized rehab nursing, neuropsychology and physiatry oversight. Goals: Emily with least assisted device Tentative discharge date: 01/28/18 Recommended therapy after discharge: Home health vs outpatient PT/OT/STATE TROOPER Recommended equipment: Most likely RW, tub transfer bench Daily Functional Update: Transfers Device Sit to Stand Transfer: Assistive Device: Roller Walker (01/13/2018 12:00 PM) No Data Recorded Gait Device Assist Required Distance Gait: Assistive Device: Roller Walker (01/12/2018 12:00 PM) No Data Recorded Gait Distance: 200 feet (total) (01/12/2018 12:00 PM) Standing Balance Static Dynamic No Data Recorded No Data Recorded Toileting Assist Required Equipment Toilet Transfer Toileting Assist: Total Assist (01/08/2018 8:00 AM) Toileting Equipment: Commode - 3 in 1 padded (frame over toilet.) (01/08/2018 8 :00 AM) No Data Recorded Dressing Lower Body LE Dressing Assist: Moderate Assist (01/11/2018 8:00 AM) Debility secondary to acute on chronic hypoxic respiratory failure Legionella pneumonia (PNA), invasive necrotizing aspergillosis PNA, BAL with positive HSV & CMV PNA Decreased pulmonary reserve Generalized weakness Decreased endurance Impaired mobility and ADLs - Baseline O2 2-3 L QHS, currently tolerating 2L NC - s/p x3 intubation/extubations - s/p PEA arrest (extubated 11/24) - s/p treatment with linezolid, zosyn - Immunology followed across street for multiple opportunistic infxs - 01/05: s/p pecs and anterior scalene peripheral nerve block by acute anesthesia pain service > ID consulted for continuation of care > CMV quant-blood every Wednesday, CMP every Wednesday > Continue antibiotics including micafungin IV, Cresemba 372mg QD , valganciclovir 900mg BID > Can likely stop micafungin at discharge, will continue at least 3 months cresemba, 4-6wks valganciclovir. May be able to discharge with only cresemba PO per ID. > Repeat CT chest [address] or PRN (last CT 12/20) > Continue aggressive pulmonary hygiene with Aerobika and IS, cough assist > Consult PT/OT Right sided pleural effusion COPD - on 2-3L QHS at baseline - s/p RR 12/16 for incr 02 requirement, thoracentesis 1800cc exudative fluid - s/p chest tube removal 12/29 - 01/05: s/p pecs and anterior scalene peripheral nerve block by acute anesthesia pain service > Continue albuterol nebs Q4H PRN, atrovent nebs Q4H PRN > Continue HEAD START COORDINATOR Symbicort BID, flonase BID, Spiriva daily > Continue lasix 60mg BID, guaifenesin LA 600mg BID > Regular dressing over pleurX site and monitor for fluid output Paroxysmal Atrial Fibrillation with RVR CAD s/p PCI 03/2012 Chronic HFpEF HTN HLD - s/p ablation 2013 - Failed cardioversion at OSH - Previously on amiodarone, d/c'd due to LFTs > Continue lasix 60mg BID, digoxin 250mcg QD, metoprolol 12.5mg BID, and xarelto 20mg QD > Holding HEAD START COORDINATOR Coreg, Cardizem, Vasotect, Lipitor > Continue daily weights, weight down, CTM Elevated Alk phos - LFTs WNL - GI consulted across street - 12/20/17: CT A/P w/ contrast without inflammatory mass, ascites, or bowel obstruction. However, fusiform infrarenal abdominal aortic aneurysm measuring up to 4.9 cm in maximum diameter. > Continue nutritional support with calorie count > Consult hepatology if any issues arise > CMP every Wednesday, alk phos continues to improve, AST/ALT WNL > F/u in hepatology clinic on discharge Minimal Pharyngeal Dysphagia - Markedly improved FEEs 01/13 > Stop TF > Continue regular solids/thin liquids > Consult dietitian and STATE TROOPER (STATE TROOPER also working on cough therapy) > PEG tube placed in IR 12/15; can pull prior to discharge as it will have been 1 month Opioid induced constipation: continue docusate 200mg BID, miralax BID, senna 2 tab BID Macrocytic anemia, stable, CTM with CBC Sleep disturbance: melatonin 5mg QHS PRN GERD: PPI Pain Management: Tylenol PRN and lidocaine patches, oxycodone 5mg Q3Hr Skin: There is / are 1 pressure sore(s) including coccyx/buttocks. Continue vit a & d ointment Bowel: continent of bowel Bladder: continent of bladder, passed BVIs x3 until <125ml and ISC for >300ml Nutrition: Current diet: regular as patient is on calorie count Feeding tube: Nocturnal compressed feeds of Nutren 2.0 at 80ml/hr x 8hrs, continue vit C, Vit D, thiamine, multiV Calorie count in place, holding TF for 2 nights Mental Health: consult neuropsychology to provide support / counseling DVT Prophylaxis: Carmen Code status: DNAR-FI (no CPR or intubation) Nela Santoro D.O.,M.B.A. Physical Medicine and Rehabilitation, PGY-2 Pager [phone] Subjective Darrius Salas is a 62 y.o. M seen in his room this morning. He feels very well other than he would like a haircut. His daughter should be by this weekend to help. Encouraged cough assist in case he feels he needs it. Otherwise, he continues to clear secretions well. Also reports eating more, TF stopped. Objective Vital Signs: Last Filed Vital Signs: 24 Hour Range BP: 137/77 (01/13 1150) Temp: 36.3 C (97.4 F) (01/13 1150) Pulse: 92 (01/13 1150) Respirations: 20 PER MINUTE (01/13 1150) SpO2: 98 % (01/13 1150) O2 Delivery: Nasal Cannula (01/13 1150) BP: (110-137)/(76-86) Temp: [36.3 C (97.4 F)-36.6 C (97.9 F)] Pulse: [92-98] Respirations: [20 PER MINUTE] SpO2: [92 %-98 %] O2 Delivery: Nasal Cannula Intensity Pain Scale (Self Report): 7 (01/13/18 1000) Vitals: 01/11/18 0649 01/12/18 0558 01/13/18 0640 Weight: 75.1 kg (165 lb 8 oz) 76.3 kg (168 lb 3.2 oz) 75.4 kg (166 lb 3.6 oz) Intake/Output Summary: (Last 24 hours) Intake/Output Summary (Last 24 hours) at 01/13/18 1337 Last data filed at 01/13/18 1150 Gross per 24 hour Intake 520 ml Output 1025 ml Net -505 ml Stool Occurrence: 1 Oral Diet Order: Regular Last Bowel Movement Date: 01/12/18 Lab: No results found for this visit on 12/31/17 (from the past 24 hour(s)). Physical Exam VS: BP 137/77 (BP Source: Arm, Left Upper) | Pulse 92 | Temp 36.3 C (97.4 F) | Ht 182.9 cm (72.01") | Wt 75.4 kg (166 lb 3.6 oz) | SpO2 98% | BMI 22.54 kg/m Gen: Alert & Conversant, No Acute Distress HEENT: Normocephalic, atraumatic, sclera anicteric, conjunctiva not injected, congestion, NC in place 2L Neck: Supple, no elevated JVP Heart: Regular Rate & Rhythm, No Murmur Lungs: Good inspiratory effort , upper airway sounds clear with minimal secretions Abdomen: Soft, non-tender, non-distended, PEG in place Skin: Warm, dry Ext: No edema or erythema noted in b/l lower limbs MS: Proximal muscle weakness stable Therapy Notes & Labs Reviewed. K GRADER * Kierra Gallegos APRN-TINO - 01/13/2018 1:14 PM STOCK GRADER Pulmonary Progress Note Name: Drarius Salas Today's Date: 01/13/2018 Admission Date: 12/31/2017 LOS: 13 days Impression: 1. COPD with emphysematous blebs -tobacco use 0.5 - 2.5 ppd x 40 years -> cessation since recent admission -on Symbicort, Spiriva, albuterol 2. Acute on chronic hypoxic respiratory failure -baseline O2=2-3 L at night -initially transferred to [facility] in late October for worsening acute on chronic respiratory failure and progression of infectious pneumonitis d/t Legionella -> required ventilatory support -BAL Cx (+) Aspergillus, Tamar Glabarta, HSV, CMV -s/p intubation x 3 3. Right Pleural Effusion, loculated (improved; drain removed 12/29/17) -thoracentesis 12/16 -> removed 1800 ml exudative fluid -Chest tube placement 12/22 -> 12/29 -on Lasix 60 mg BID 4. Recent Septic Shock with polymicrobial Pneumonia - Legionella, C. Glabrata, Necrotizing Aspergillus 5. s/p PEA Arrest -now with multiple anterior rib fractures, paradoxical movement of the anteior chest wall, and sternal chest pain -> limits airway clearance 6. Atrial Fibrillation - s/p ablation in 2013 - HEAD START COORDINATOR xarelto, diltiazem - was cardioverted unsuccessfully at OSH, treated with amio, dig load (?) and diltiazem - history of PCI to RCA in March 2012 7. Severe Musculoskeletal Disability and Deconditioning -Ongoing active participation in rehab Recommendations: - Continue inhaler regimen with Symbicort, Spiriva, and albuterol - Continue abx per ID - Continue aggressive pulmonary hygiene with OOB, IS, Acapella - Given improvement in independent airway clearance ok to D/C cough assist - Continue tobacco cessation - History of nocturnal hypoxemia with elevated serum bicarb (though he is still considered in acute phase of illness and this may not represent his baseline) - recommend sleep study as an outpatient after discharge to assess for underlying DEYSI - Agree with plan for repeat CT in 4 week per ID - Encouraged pt to be out of bed and in chair when not in therapy to help with airway clearance and atelectasis We will continue to follow. Above plan discussed with attending physician, Dr. Chawla. Kierra Gallegos APRN-BALLISTICS TESTER Pager [phone] Subjective Resting comfortably in bed at time of visit. Continues to have a productive cough with clear - cloudy sputum. Short of breath with exertion - increasing activity with rehab therapy with goal to d/c next week. Using IS and Aerobika multiple times per day. Chest pain currently well controlled which has helped with effective coughing. Review of Systems Constitutional: Positive for malaise/fatigue. Negative for chills and fever. Respiratory: Positive for cough, sputum production and shortness of breath. Negative for hemoptysis. Cardiovascular: Negative for chest pain and leg swelling. Gastrointestinal: Positive for constipation, heartburn and nausea. Negative for diarrhea and vomiting. Musculoskeletal: Negative for myalgias. Neurological: Negative for dizziness and headaches. All other systems reviewed and are negative. Objective Vital Signs: Last Filed Vital Signs: 24 Hour Range BP: 137/77 (01/13 1150) Temp: 36.3 C (97.4 F) (01/13 1150) Pulse: 92 (01/13 1150) Respirations: 20 PER MINUTE (01/13 1150) SpO2: 98 % (01/13 1150) O2 Delivery: Nasal Cannula (01/13 115) BP: (110-137)/(76-86) Temp: [36.3 C (97.4 F)-36.6 C (97.9 F)] Pulse: [92-98] Respirations: [20 PER MINUTE] SpO2: [92 %-98 %] O2 Delivery: Nasal Cannula Intake/Output Summary: (Last 24 hours) Intake/Output Summary (Last 24 hours) at 01/13/18 1314 Last data filed at 01/13/18 1150 Gross per 24 hour Intake 520 ml Output 1025 ml Net -505 ml General: Awake, in no acute distress. HEENT: NC/AT, sclera non-icteric, moist mucus membranes. Neck: no JVD. CV: regular rhythm, normal rate, no murmurs. Lungs: rhonchi throughout on right, CTA on left, on 2 L O2 - paradoxical chest movement Abdomen: soft, non-tender, non-distended, normo-active bowel sounds Extremities: 1+ BLE edema, pedal pulses 2 (+) bilaterally Neuro: no focal deficits Skin: no rashes Lab Review Recent CBC Recent Labs 01/12/18 0610 WBC 8.2 HGB 10.5* HCT 32.3* PLTCT 298 MCV 107.8* Recent CMP Recent Labs 01/12/18 0610 NA 134* K 3.3* CL 95* CO2 34* GAP 5 BUN 9 CR 0.46 GFR >60 GLU 102* CA 9.0 Other labs Pertinent labs reviewed Point of Care Testing (Last 24 hours) Radiology and other Diagnostics Review: No new imaging to review Medications Scheduled IV PRN ascorbic acid (VITAMIN C) tablet 500 [...] patch 1-2 patch 1-2 patch Topical QDAY metoprolol tartrate (LOPRESSOR) tablet 12.5 mg 12.5 mg Oral BID micafungin (MYCAMINE) 150 mg in sodium chloride 0.9% (NS) 110 mL IVPB 150 mg Intravenous Q24H* pantoprazole DR (PROTONIX) tablet 40 mg 40 mg Oral QDAY(21) polyethylene glycol 3350 (MIRALAX) packet 17 g 1 packet Oral BID rivaroxaban (XARELTO) tablet 20 mg 20 mg Oral QDAY w/breakfast senna (SENOKOT) tablet 2 tablet 2 tablet [...] tablet 1 tablet 1 tablet Oral QDAY acetaminophen Q4H PRN, albuterol Q4H PRN, aluminum/magnesium hydroxide Q4H PRN , bisacodyl QDAY PRN, dextran 70/hypromellose Q6H PRN, melatonin QHS PRN, milk of magnesia (CONC) Q4H PRN, ondansetron Q6H PRN, oxyCODONE Q4H PRN, pancrelipase 20,000 Units/ sodium bicarbonate 650 mg(#) PRN (Salad Bar Clerk from Rx), phenol PRN K GRADER * Caryn aFrah MD - 01/13/2018 12:55 PM STOCK GRADER Infectious Diseases Progress Note 01/13/2018 Admission Date: 12/31/2017 LOS: 13 days ASSESSMENT 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 - Via [facility] (11/04)- peripheral blood cultures -no growth, Sputum/ endotracheal- mixed bacterial gavin, few yeast (11/08) BAL/left upper lobe >1, 000 CFU/ML- Tamar Glabrata long-standing 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, with recent RVR, CAD, CHF - s/p ablation in 2013 - HEAD START COORDINATOR xarelto, diltiazem - was cardioverted unsuccessfully at OSH, treated with amio, dig load (?) and diltiazem - history of PCI to RCA in March 2012 CMV viremia 11/29/17. Not detected on first BAL, virus detected on 12/21/17 BAL. Significant debility PLAN: 1. Overall strength improving, RAINES improving. 2. Cont PO valgancyclovir. 3. Will likely need at least several more weeks of antiviral therapy. Low level detection currently, Will recheck CMV in blood next week. 4. Cont cresemba+braden. May be able to discharge with only cresemba PO. 5. monitor labs for toxicity. 6. Will plan for repeat CT chest at least [address] (12/20/17) or PRN based on clinical progress. 7. Will follow. Mr. Salas has complex disease requiring complex medical decision making for pneumonia, aspergillosis, therapeutic drug monitoring, resp failure. I reviewed the chart and interviewed and examined the patient and formulated the plan as above. Interval history: Darrius Salas is a 62 y.o. male. Patient afebrile. On 2-4L NC, RR 18. No new chagnes. +cough, SOB, chest discomfort. No f/c/ns, FERGUSON, neck pain. Still working with therapy; ambulating with walker. 01/10/18 CMV in blood, <50IU/ml. ABX: Antimicrobial Start date End date levaquin 11/15 11/28 meropenem 11/19 11/22 vanc 11/20 11/22 vori 11/23-11/24 Restart 11/3012/22/17 isavuconazole 11/24 11/30 cefepime 11/2712/02/17 acyclovir 11/27-12/11/17, 12/22/17 12/24/17 Estimated Creatinine Clearance: 121.8 mL/min (A) (based on SCr of 0.39 mg/dL (L) ). Zosyn 12/10/17- 12/17/17 linezolid 12/10/17 - 12/17/17 Cresemba + braden 12/22/17 Ganciclovir 12/24/17 Medications Scheduled Meds: ascorbic acid (VITAMIN C) [...] patch 1-2 patch 1-2 patch Topical QDAY metoprolol tartrate (LOPRESSOR) tablet 12.5 mg 12.5 mg Oral BID micafungin (MYCAMINE) 150 mg in sodium chloride 0.9% (NS) 110 mL IVPB 150 mg Intravenous Q24H* pantoprazole DR (PROTONIX) tablet 40 mg 40 mg Oral QDAY(21) polyethylene glycol 3350 (MIRALAX) packet 17 g 1 packet Oral BID rivaroxaban (XARELTO) tablet 20 mg 20 mg Oral QDAY w/breakfast senna (SENOKOT) tablet 2 tablet 2 tablet [...] Respiratory Meds:acetaminophen Q4H PRN, albuterol Q4H PRN, aluminum/ magnesium hydroxide Q4H PRN, bisacodyl QDAY PRN, dextran 70/hypromellose Q6H PRN , melatonin QHS PRN, milk of magnesia (CONC) Q4H PRN, ondansetron Q6H PRN, oxyCODONE Q4H PRN, pancrelipase 20,000 Units/ sodium bicarbonate 650 mg(#) PRN ( Salad Bar Clerk from Rx), phenol PRN Objective Vital Signs: Last Filed Vital Signs: 24 Hour Range BP: 137/77 (01/13 1150) Temp: 36.3 C (97.4 F) (01/13 1150) Pulse: 92 (01/13 1150) Respirations: 20 PER MINUTE (01/13 1150) SpO2: 98 % (01/13 1150) O2 Delivery: Nasal Cannula (01/13 115) BP: (102-137)/(72-86) Temp: [36.3 C (97.4 F)-36.6 C (97.9 F)] Pulse: [92-106] Respirations: [20 PER MINUTE] SpO2: [92 %-98 %] O2 Delivery: Nasal Cannula Intensity Pain Scale (Self Report): 7 (01/13/18 1000) Vitals: 01/11/18 0649 01/12/18 0558 01/13/18 0640 Weight: 75.1 kg (165 lb 8 oz) 76.3 kg (168 lb 3.2 oz) 75.4 kg (166 lb 3.6 oz) Physical Exam Gen: A&O X 3, no acute distress, appears ill HEENT: EOMI, no subconjunctival hemorrhages CV: RRR Resp: Clear bilat, air exchange poor bilaterally, +crackles Abd, soft, non tender, +BS Extremity: no edema Derm: no rash/lesions appreciated Lab Review Full labs reviewed. Recent Labs 01/12/18 0610 WBC 8.2 Radiology and other Diagnostics Review: Radiology viewed and reports reviewed I have interviewed and examined this patient today and viewed the vital signs, laboratory, microbiology and radiology. MD Caryn Marlow MD Infectious Diseases Faculty Pager: [phone] K GRADER Leslie Voss - 01/13/2018 8:44 AM STOCK GRADER SPEECH-LANGUAGE PATHOLOGY FEES SWALLOW ASSESSMENT EVALUATION SUMMARY Fees Summary*: After a time out procedure was completed to verify name, and MR#, a Fiberoptic Endoscopic Evaluation of Swallowing was completed. Pt presents with minimal pharyngeal dysphagia. Trace penetration of thin liquid residue noted only to the level of the posterior laryngeal commissure after the swallow. Penetration was resolved with use of compensatory swallow strategies. No aspiration with any consistency; this is a marked improvement from videoswallow completed on 12/21 in which patient presented with silent aspiration. Sources of dysphagia include debility secondary to complex medical course. See below for further documentation. RECOMMENDATIONS: Regular/thin liquids with use of strategies. Medications whole with thin liquids. Ongoing speech therapy targeting breath support for speech. Swallow strategies: multiple swallows with thin liquids. Anatomy/Physiology: Unremarkable. Oral Stage Summary*: No anterior spillage or oral residue. Suspect impaired bolus control as early spillover into pharynx noted with thin liquids. No penetration/aspiration before the swalllow. Pharyngeal Stage Summary*: Pt presents with mildly delayed initiation of pharyngeal swallow as evidenced by premature spillage of thin liquids to level of pyriform sinuses. Mild residue noted in pyriform sinuses with thin liquids following the swallow resulting in trace penetration at level of posterior laryngeal commissure. No penetration/aspiration suspected during the swallow and no aspiration after the swallow. Plan*: Continue Treatment Daily. Prognosis*: Good NOMS Dysphagia Rating*: 6-Minimal Dysphagia -Swallow safe, pt eats/drinks indep , may require min cues. Usually self-cues when difficulty occurs. May need to avoid specific food items (e.g., popcorn & nuts) or need more time (due to dysphagia). Penetration Aspiration Scale*: 3 - Material enters laryngeal vestibule, remains above vocal folds & is not ejected Objective* Relevant Med Background: Pt is a 62 yo M with PMH COPD on 2-3L QHS, tobacco use , afib on xarelto, CAD s/p PCI (2012) [...] volume overload, dysphagia requiring PEG placement, thoracentesis s/ p chest tube placement. Handedness: Right Hearing: WFL Lives With: Significant Other Receives Help From: None Needed Vocational: On Disability Psychosocial Status: Willing and Cooperative to Participate Persons Present: None CXR 01/02 IMPRESSION No significant change in patchy predominately alveolar opacities within both lungs, greatest on the right, compatible with pneumonia. Subjective* Pain: Patient has no complaint of pain Pain Level Current*: No pain Trach Presence: No Feeding Tube Present During Eval: (PEG) Nutrition* Nutrition Prior To Hospitalization: Regular, Thin Liquids Current Form Of Nutrition: Regular, Thin Liquids, PEG Consistencies / Presentations* Presentations: Patient Fed Self Consistencies: Thin Liquid Cup, Thin Liquid Straw, Thin Liquid Consecutive Swallows, Regular Solids Secretion Management: Able To Manage Education* Persons Educated: Patient Barriers To Learning: None Noted Interventions: Staff Educated, Repetition of Instructions Teaching Methods: Verbal, Demonstration Topics: Dysphagia Patient Response: Verbalized Understanding Goal Formulation: With Patient Speech Freight [place]man Goals STATE TROOPER Freight [place]man Goals: Yes Will maximize speech production for independent communication with: Minimal assist Patient will exhibit safe swallow for least restrictive consistency: Progressing Other Freight [place]man Goals: Achieved Speech Short Term Goals Other (comment): Pt will demonstrate breath support sufficient to generate x10- 12 syllables per breath group given minimal cues. Dysphagia: Yes Will tolerate current diet without signs of aspiration: Progressing Will participate in repeat instrumental swallow evaluation when clinically indicated: Achieved Therapist: Leslie Flores MA, CCC-STATE TROOPER Voalte: [id number] Date: 01/13/2018 K GRADER * Kacie Evans - 01/13/2018 6:57 AM STOCK GRADER Heart Failure Nursing Progress Note Admission Date: 12/31/2017 LOS: 13 days Admission Weight: 74.3 kg (163 lb 12.8 oz) Most recent weights (inpatient): Vitals: 01/11/18 0649 01/12/18 0558 01/13/18 0640 Weight: 75.1 kg (165 lb 8 oz) 76.3 kg (168 lb 3.2 oz) 75.4 kg (166 lb 3.6 oz) Weight change from previous day:- 0.9KG Fluid restriction ordered: None Intake/Output Summary: (Last 24 hours) Intake/Output Summary (Last 24 hours) at 01/13/18 0657 Last data filed at 01/13/18 0300 Gross per 24 hour Intake 1520 ml Output 800 ml Net 720 ml Is patient incontinent No Anticipated discharge date: 01/28 Discharge goals: Go home Daily Assessment of Patient Stated Goals: Short Term Goal Identified by patient (Short Term=during hospitalization): Decrease pain K GRADER * Akiko Barnes, RN - 01/12/2018 5:39 PM STOCK GRADER Heart Failure Nursing Progress Note Admission Date: 12/31/2017 LOS: 12 days Admission Weight: 74.3 kg (163 lb 12.8 oz) Most recent weights (inpatient): Vitals: 01/10/18 0438 01/11/18 0649 01/12/18 0558 Weight: 75.3 kg (166 lb) 75.1 kg (165 lb 8 oz) 76.3 kg (168 lb 3.2 oz) Weight change from previous day:+1.2kg Fluid restriction ordered: N/a Intake/Output Summary: (Last 24 hours) Intake/Output Summary (Last 24 hours) at 01/12/18 1739 Last data filed at 01/12/18 1305 Gross per 24 hour Intake 2070 ml Output 1950 ml Net 120 ml Is patient incontinent No Anticipated discharge date: 01/28 Discharge goals: Return home Daily Assessment of Patient Stated Goals: Short Term Goal Identified by patient (Short Term=during hospitalization): Maintain fluid balance K GRADER * Kierra Gallegos APRN-NP - 01/12/2018 1:26 PM STOCK GRADER Pulmonary Progress Note Name: Darrius Montero Josue Today's Date: 01/12/2018 Admission Date: 12/31/2017 LOS: 12 days Impression: 1. COPD with emphysematous blebs -tobacco use 0.5 - 2.5 ppd x 40 years -> cessation since recent admission -on Symbicort, Spiriva, albuterol 2. Acute on chronic hypoxic respiratory failure -baseline O2=2-3 L at night -initially transferred to [facility] in late October for worsening acute on chronic respiratory failure and progression of infectious pneumonitis d/t Legionella -> required ventilatory support -BAL Cx (+) Aspergillus, Tamar Glabarta, HSV, CMV -s/p intubation x 3 3. Right Pleural Effusion, loculated (improved; drain removed 12/29/17) -thoracentesis 12/16 -> removed 1800 ml exudative fluid -on Lasix 60 mg BID 4. Recent Septic Shock with polymicrobial Pneumonia - Legionella, C. Glabrata, Necrotizing Aspergillus 5. s/p PEA Arrest -now with multiple anterior rib fractures, paradoxical movement of the anteior chest wall, and sternal chest pain -> limits airway clearance 6. Atrial Fibrillation - s/p ablation in 2013 - HEAD START COORDINATOR xarelto, diltiazem - was cardioverted unsuccessfully at OSH, treated with amio, dig load (?) and diltiazem - history of PCI to RCA in March 2012 7. Severe Musculoskeletal Disability and Deconditioning -Ongoing active participation in rehab Recommendations: - Continue inhaler regimen with Symbicort, Spiriva, and albuterol - Continue abx per ID - Continue aggressive pulmonary hygiene with OOB, IS, Acapella - Given improvement in independent airway clearance ok to D/C cough assist - Continue tobacco cessation - History of nocturnal hypoxemia with elevated serum bicarb (though he is still considered in acute phase of illness and this may not represent his baseline) - recommend sleep study as an outpatient after discharge to assess for underlying DEYSI - Agree with plan for repeat CT in 4 week per ID - Encouraged pt to be out of bed and in chair when not in therapy to help with airway clearance and atelectasis We will continue to follow. Above plan discussed with attending physician, Dr. Chawla. Kierra Gallegos APRN-BALLISTICS TESTER Pager [phone] Subjective Resting comfortably in bed at time of visit. Reports he continues to have a productive cough with clear - cloudy sputum. Continues to clear mucus independently with cough. Using IS and Aerobika multiple times per day. Chest pain currently well controlled which has helped with effective coughing. Review of Systems Constitutional: Positive for malaise/fatigue. Negative for chills and fever. Respiratory: Positive for cough, sputum production and shortness of breath. Negative for hemoptysis. Cardiovascular: Negative for chest pain and leg swelling. Gastrointestinal: Positive for constipation, heartburn and nausea. Negative for diarrhea and vomiting. Musculoskeletal: Negative for myalgias. Neurological: Negative for dizziness and headaches. All other systems reviewed and are negative. Objective Vital Signs: Last Filed Vital Signs: 24 Hour Range BP: 102/72 (01/12 1305) Temp: 36.3 C (97.4 F) (01/12 130) Pulse: 106 (01/12 130) Respirations: 20 PER MINUTE (01/12 130) SpO2: 94 % (01/12 130) O2 Delivery: Nasal Cannula (01/12 1305) BP: (102-118)/(69-83) Temp: [36.3 C (97.4 F)-36.8 C (98.2 F)] Pulse: [83-106] Respirations: [17 PER MINUTE-20 PER MINUTE] SpO2: [93 %-100 %] O2 Delivery: Nasal Cannula Intake/Output Summary: (Last 24 hours) Intake/Output Summary (Last 24 hours) at 01/12/18 1326 Last data filed at 01/12/18 1305 Gross per 24 hour Intake 1070 ml Output 2225 ml Net -1155 ml General: Awake, in no acute distress. HEENT: NC/AT, sclera non-icteric, moist mucus membranes. Neck: no JVD. CV: regular rhythm, normal rate, no murmurs. Lungs: rhonchi throughout on right, CTA on left, on 2 L O2 - paradoxical chest movement Abdomen: soft, non-tender, non-distended, normo-active bowel sounds Extremities: 1+ BLE edema, pedal pulses 2 (+) bilaterally Neuro: no focal deficits Skin: no rashes Lab Review Recent CBC Recent Labs 01/10/18 0605 01/12/18 0610 WBC 9.8 8.2 HGB 10.6* 10.5* HCT 32.6* 32.3* PLTCT 318 298 MCV 107.4* 107.8* Recent CMP Recent Labs 01/10/18 0605 01/12/18 0610 NA 134* 134* K 3.5 3.3* CL 96* 95* CO2 35* 34* GAP 3 5 BUN 13 9 CR 0.49 0.46 GFR >60 >60 GLU 107* 102* CA 8.6 9.0 ALBUMIN 2.5* -- ALKPHOS 197* -- AST 23 -- ALT 17 -- TOTBILI 0.4 -- Other labs Pertinent labs reviewed Point of Care Testing (Last 24 hours) Glucose: (!) 102 (01/12/18 0610) Radiology and other Diagnostics Review: No new imaging to review Medications Scheduled IV PRN ascorbic acid (VITAMIN C) tablet 500 mg 500 mg Oral QDAY budesonide/formoterol (SYMBICORT HFA) 160/4.5 mcg inhalation 2 puff 2 puff Inhalation BID cholecalciferol (VITAMIN D-3) tablet 400 Units 400 Units Oral QDAY digoxin (LANOXIN) tablet 250 mcg 250 mcg Oral QDAY docusate (COLACE) capsule 100 mg 100 mg Oral BID fluticasone (FLONASE) nasal spray 2 spray 2 spray Each Nostril QDAY furosemide (LASIX) tablet 60 mg 60 mg Oral BID(9-17) guaiFENesin LA (MUCINEX) tablet 600 mg 600 mg Oral BID isavuconazonium sulfate (CRESEMBA) capsule 372 mg 372 mg Oral QDAY(21) lidocaine (LIDODERM) 5 % topical patch 1-2 patch 1-2 patch Topical QDAY metoprolol tartrate (LOPRESSOR) tablet 12.5 mg 12.5 mg Oral BID micafungin (MYCAMINE) 150 mg in sodium chloride 0.9% (NS) 110 mL IVPB 150 mg Intravenous Q24H* pantoprazole DR (PROTONIX) tablet 40 mg 40 mg Oral QDAY(21) polyethylene glycol 3350 (MIRALAX) packet 17 g 1 packet Oral BID potassium chloride SR (K-DUR) tablet 60 mEq 60 mEq Oral ONCE rivaroxaban (XARELTO) tablet 20 mg 20 mg Oral QDAY w/breakfast senna (SENOKOT) tablet 2 tablet 2 tablet [...] tablet 1 tablet 1 tablet Oral QDAY acetaminophen Q4H PRN, albuterol Q4H PRN, aluminum/magnesium hydroxide Q4H PRN , bisacodyl QDAY PRN, dextran 70/hypromellose Q6H PRN, melatonin QHS PRN, milk of magnesia (CONC) Q4H PRN, ondansetron Q6H PRN, oxyCODONE Q4H PRN, pancrelipase 20,000 Units/ sodium bicarbonate 650 mg(#) PRN (Salad Bar Clerk from Rx), phenol PRN K GRADER * Leslie Flores - 01/12/2018 7:46 AM STOCK GRADER SPEECH-LANGUAGE PATHOLOGY REHAB SPEECH DAILY NOTE SUMMARY: Pt seen by STATE TROOPER for 30 minutes targeting dysphagia and speech. PLAN: Continue current therapy plan. FREQUENCY TODAY: 1x RECOMMENDATIONS 1. Continue regular solids and thin liquids with use of compensatory swallow strategies (small bites/sips, slow rate, head turn LEFT with solids/liquids w/ 2 effortful swallows per bolus). *If exhibiting negative pulmonary status changes, please cease PO intake. 2. Medications as tolerated by pt, likely tolerated with thin liquids. 3. Excellent oral care to reduce risk of aspirated bacteria from oral cavity(2 -3x/daily). 4. Fiberoptic endoscopic evaluation of swallowing planned for 01/13. ACTIVITIES FOR THE DAY: Pt completed expiratory strengthening exercise with use of EMST device for 5 sets of x5 repetitions at "35." STATE TROOPER provided minimal verbal cues and moderate use of application of diaphragmatic "scooping" technique in order to maximize diaphragmatic expansion. Pt generated productive cough following exercises x3 with expectoration of minimal, thick cloudy secretions. Pt with AM pills; initial cues required for use of head turn. Pt independently taking small sips and utilizing multiple swallows. Trials of pills x3 without head turn completed. Pt with timely initiation of pharyngeal swallow with mildly reduced hyolaryngeal excursion as perceived upon palpation. Throat clear x1 indicative of possible aspiration/penetration however pt generating spontaneous cough throughout session. Education completed re: plan of care with FEES to be completed on 01/13 for re-assessment of swallow. Speech Shelter Goals STATE TROOPER Shelter Goals: Yes Will maximize speech production for independent communication with: Minimal assist Patient will exhibit safe swallow for least restrictive consistency: Progressing Other [employer] Goals: Achieved Speech Short Term Goals Other (comment): Pt will demonstrate breath support sufficient to generate x10- 12 syllables per breath group given minimal cues. Dysphagia: Yes Will tolerate current diet without signs of aspiration: Progressing Will participate in repeat instrumental swallow evaluation when clinically indicated: Progressing Therapist: Leslie Flores MA, CCC-STATE TROOPER Voalte: [id number] Date: 01/12/2018 K GRADER * Kacie Evans - 01/12/2018 6:44 AM STOCK GRADER Heart Failure Nursing Progress Note Admission Date: 12/31/2017 LOS: 12 days Admission Weight: 74.3 kg (163 lb 12.8 oz) Most recent weights (inpatient): Vitals: 01/10/18 0438 01/11/18 0649 01/12/18 0558 Weight: 75.3 kg (166 lb) 75.1 kg (165 lb 8 oz) 76.3 kg (168 lb 3.2 oz) Weight change from previous day: +1.2kg Fluid restriction ordered: None Intake/Output Summary: (Last 24 hours) Intake/Output Summary (Last 24 hours) at 01/12/18 0645 Last data filed at 01/12/18 0600 Gross per 24 hour Intake 1070 ml Output 2225 ml Net -1155 ml Is patient incontinent No Anticipated discharge date: 01/28 Discharge goals: Feel stronger Daily Assessment of Patient Stated Goals: Short Term Goal Identified by patient (Short Term=during hospitalization): "Get up and walking" K GRADER * Beatriz Ortiz MD - 01/12/2018 6:42 AM STOCK GRADER ATTESTATION I personally performed the gaytan portions of the E/M visit, discussed case with resident and concur with resident documentation of history, physical exam, assessment, and treatment plan unless otherwise noted. Pt continues to improve daily with respiratory status and functional strength. Labs and VS reviewed and stable. Replace K+ today. FEES planned per STATE TROOPER. PEG placed 12/15, holding TF and monitor liam count today. D/w nursing, will work on BM today. Increase softeners. Per d/w rehab team at conference, patient making progress towards goal of min A with RW, TB. Tentative discharge date 01/28. Progress this week, mod A transfers, min A gait with increasing distance, using compensatory swallow strategies, managing secretions better. Recommending HH vs OP therapies at time of discharge from rehab. 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 Darrius Salas is a 62 [...] placement, thoracentesis s/p chest tube placement. He now presents to IRF with debility warranting PT/OT/STATE TROOPER therapies. Rehabilitation Plan Rehabilitation: Patient will continue with comprehensive therapies including physical therapy, occupational therapy, speech & language pathology, specialized rehab nursing, neuropsychology and physiatry oversight. Goals: Emily with least assisted device Tentative discharge date: 02/07/18 Recommended therapy after discharge: Home health vs outpatient PT/OT/STATE TROOPER Recommended equipment: TBD Most likely RW, tub transfer bench Daily Functional Update: Transfers Device Sit to Stand Transfer: Assistive Device: Roller Walker (01/11/2018 12:29 PM) No Data Recorded Gait Device Assist Required Distance Gait: Assistive Device: Roller Walker (01/11/2018 12:29 PM) No Data Recorded Gait Distance: 60 feet (total) (01/11/2018 12:29 PM) Standing Balance Static Dynamic No Data Recorded No Data Recorded Toileting Assist Required Equipment Toilet Transfer Toileting Assist: Total Assist (01/08/2018 8:00 AM) Toileting Equipment: Commode - 3 in 1 padded (frame over toilet.) (01/08/2018 8 :00 AM) No Data Recorded Dressing Lower Body LE Dressing Assist: Moderate Assist (01/11/2018 8:00 AM) Debility secondary to acute on chronic hypoxic respiratory failure Legionella pneumonia (PNA), invasive necrotizing aspergillosis PNA, BAL with positive HSV & CMV PNA Decreased pulmonary reserve Generalized weakness Decreased endurance Impaired mobility and ADLs - Baseline O2 2-3 L QHS, currently tolerating 2L NC - s/p x3 intubation/extubations - s/p PEA arrest (extubated 11/24) - s/p treatment with linezolid, zosyn - Immunology followed across [place] for multiple opportunistic infxs - 01/05: s/p pecs and anterior scalene peripheral nerve block by acute anesthesia pain service > ID consulted for continuation of care > CMV quant-blood every Wednesday, CMP every Wednesday > Continue antibiotics including micafungin IV, Cresemba 372mg QD , valganciclovir 900mg BID > Can likely stop micafungin at discharge, will continue at least 3 months cresemba, 4-6wks valganciclovir. May be able to discharge with only cresemba PO per ID. > Repeat CT chest [address] or PRN (last CT 12/20) > Continue aggressive pulmonary hygiene with Aerobika and IS, cough assist > Consult PT/OT Right sided pleural effusion COPD - on 2-3L QHS at baseline - s/p RR 12/16 for incr 02 requirement, thoracentesis 1800cc exudative fluid - s/p chest tube removal 12/29 - 01/05: s/p pecs and anterior scalene peripheral nerve block by acute anesthesia pain service > Continue albuterol nebs Q4H PRN, atrovent nebs Q4H PRN > Continue HEAD START COORDINATOR Symbicort BID, flonase BID, Spiriva daily > Continue lasix 60mg BID, guaifenesin LA 600mg BID > Regular dressing over pleurX site and monitor for fluid output Paroxysmal Atrial Fibrillation with RVR CAD s/p PCI 03/2012 Chronic HFpEF HTN HLD - s/p ablation 2013 - Failed cardioversion at OSH - Previously on amiodarone, d/c'd due to LFTs > Continue lasix 60mg BID, digoxin 250mcg QD, metoprolol 12.5mg BID, and xarelto 20mg QD > Holding HEAD START COORDINATOR Coreg, Cardizem, Vasotect, Lipitor > Continue daily weights, weight down today, CTM Elevated Alk phos - LFTs WNL - GI consulted across street - 12/20/17: CT A/P w/ contrast without inflammatory mass, ascites, or bowel obstruction. However, fusiform infrarenal abdominal aortic aneurysm measuring up to 4.9 cm in maximum diameter. > Continue nutritional support with calorie count > Consult hepatology if any issues arise > CMP every Wednesday, alk phos continues to improve, AST/ALT WNL > F/u in hepatology clinic on discharge Dysphagia- improved to resolved > FEEs today > Holding two nights of condensed TF per nutrition and see how patient tolerates > Continue regular solids/thin liquids > Consult dietitian and STATE TROOPER (STATE TROOPER also working on cough therapy) > PEG tube placed in IR 12/15; can pull prior to discharge as it will have been 1 month Opioid induced constipation: continue docusate 100mg BID, miralax BID, senna 2 tab BID Macrocytic anemia, stable, CTM with CBC Sleep disturbance: melatonin 5mg QHS PRN GERD: PPI Pain Management: Tylenol PRN and lidocaine patches, oxycodone 5mg Q3Hr Skin: There is / are 1 pressure sore(s) including coccyx/buttocks. Continue vit a & d ointment Bowel: continent of bowel Bladder: continent of bladder, passed BVIs x3 until <125ml and ISC for >300ml Nutrition: Current diet: regular as patient is on calorie count Feeding tube: Nocturnal compressed feeds of Nutren 2.0 at 80ml/hr x 8hrs, continue vit C, Vit D, thiamine, multiV Calorie count in place, holding TF for 2 nights Mental Health: consult neuropsychology to provide support / counseling DVT Prophylaxis: Xarelto Code status: DNAR-FI (no CPR or intubation) Nela Santoro D.O.,M.B.A. Physical Medicine and Rehabilitation, PGY-2 Pager [phone] Subjective Darrius Salas is a 62 y.o. M seen in therapy this morning on [facility]. Patient doing well on 2L. He has a goal to go home next Wednesday. He is doing very well in therapies and continues to make FIM gains. He reports that nothing tastes good. FEES to be repeated today. Encourage oral intake. Objective Vital Signs: Last Filed Vital Signs: 24 Hour Range BP: 118/72 (01/12 0500) Temp: 36.4 C (97.5 F) (01/12 050) Pulse: 91 (01/12 500) Respirations: 18 PER MINUTE (01/12 050) SpO2: 99 % (01/12 500) O2 Delivery: Nasal Cannula (01/12 500) BP: (115-122)/(69-79) Temp: [36.4 C (97.5 F)-36.5 C (97.7 F)] Pulse: [83-100] Respirations: [18 PER MINUTE-20 PER MINUTE] SpO2: [93 %-100 %] O2 Delivery: Nasal Cannula Intensity Pain Scale (Self Report): 6 (01/12/18 0220) Vitals: 01/10/18 0438 01/11/18 0649 01/12/18 0558 Weight: 75.3 kg (166 lb) 75.1 kg (165 lb 8 oz) 76.3 kg (168 lb 3.2 oz) Intake/Output Summary: (Last 24 hours) Intake/Output Summary (Last 24 hours) at 01/12/18 0642 Last data filed at 01/12/18 0200 Gross per 24 hour Intake 320 ml Output 2225 ml Net -1905 ml Stool Occurrence: 1 Oral Diet Order: Regular Last Bowel Movement Date: 01/10/18 Lab: No results found for this visit on 12/31/17 (from the past 24 hour(s)). Physical Exam VS: BP 118/72 (BP Source: Arm, Left Upper) | Pulse 91 | Temp 36.4 C (97.5 F) | Ht 182.9 cm (72.01") | Wt 76.3 kg (168 lb 3.2 oz) | SpO2 99% | BMI 22.81 kg/m Gen: Alert & Conversant, No Acute Distress HEENT: Normocephalic, atraumatic, sclera anicteric, conjunctiva not injected, congestion, NC in place 2L Neck: Supple, no elevated JVP Heart: Regular Rate & Rhythm, No Murmur Lungs: Good inspiratory effort , upper airway sounds clear with minimal secretions Abdomen: Soft, non-tender, non-distended, PEG in place Skin: Warm, dry Ext: No edema or erythema noted in b/l lower limbs MS: Proximal muscle weakness stable Therapy Notes & Labs Reviewed. K GRADER * Osvaldo Lim RN - 01/11/2018 6:18 PM STOCK GRADER Heart Failure Nursing Progress Note Admission Date: 12/31/2017 LOS: 11 days Admission Weight: 74.3 kg (163 lb 12.8 oz) Most recent weights (inpatient): Vitals: 01/09/18 0516 01/10/18 0438 01/11/18 0649 Weight: 74.4 kg (164 lb 0.4 oz) 75.3 kg (166 lb) 75.1 kg (165 lb 8 oz) Weight change from previous day:-0.2kg Fluid restriction ordered:None Intake/Output Summary: (Last 24 hours) Intake/Output Summary (Last 24 hours) at 01/11/18 1818 Last data filed at 01/11/18 1403 Gross per 24 hour Intake 1450 ml Output 1850 ml Net -400 ml Is patient incontinent No Anticipated discharge date: 01/28 Discharge goals: Gain streangth Daily Assessment of Patient Stated Goals: Short Term Goal Identified by patient (Short Term=during hospitalization): K GRADER * India Santillan, PhD - 01/11/2018 4:54 PM STOCK GRADER Neurorehabilitation Psychology [phone] Pt was seen for mood rescreening with no family or significant others present. [...] reported mood as "good." Pt reported that his appetite has remained poor, and sleep remains fair. He stated that he often feels fatigued from his therapies, as he has difficulty sleeping at night. Mood screening for depressive symptomology was readministered with results indicating no significant depressive symptomology (PHQ-9=3) with pt endorsing symptoms over the last 2 weeks including of loss of interest, fatigue and poor appetite for several days. Compared to 01/03/18, pts endorsement of depressive symptoms has decreased (PHQ-9=8). Supportive and processing therapy was provided. Pt's coping strategies were reinforced and reviewed and I encouraged pt to practice coping skills such as relaxed breathing as needed and to engage in pleasant, relaxing activities as able. Pts progress, utilization of coping skills, and goals for rehab therapies were supported. Will continue to follow and assess cognition, mood, pain management, and coping. Diagnosis: R53.81 Debility Recommendations: Pt may benefit from reminders or cues to utilize coping strategies such as relaxed breathing, watching television, spending time with social support. Beck Gutierrez Psy.D. Neurorehabilitation Psychology Postdoctoral Fellow Pager #: [phone] ATTESTATION: I discussed this session and pt's care with the fellow and agree with his note and rec above. We will continue to follow prn until [facility] IRF d/c. Winston Santillan, PhD, ABPP K GRADER * Caryn Farah MD - 01/11/2018 12:59 PM STOCK GRADER Infectious Diseases Progress Note 01/11/2018 Admission Date: 12/31/2017 LOS: 11 days ASSESSMENT Invasive pulmonary aspergillosis in COPD patient with right-sided disease and persistent respiratory failure s/p thoracentesis 12/16/17 CMV pneumonitis 12/21/17 Legionella pneumonia, also possible aspiration - At [...] Fungitell 38, Galactomannan 0.052. - [facility] [employer] (11/04)- peripheral blood cultures -no growth, Sputum/ endotracheal- mixed bacterial gavin, few yeast (11/08) BAL/left upper lobe >1, 000 CFU/ML- Tamar Glabrata long-standing 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, with recent RVR, CAD, CHF - s/p ablation in 2013 - HEAD START COORDINATOR xarelto, diltiazem - was cardioverted unsuccessfully at OSH, treated with amio, dig load (?) and diltiazem - history of PCI to RCA in March 2012 CMV viremia 11/29/17. Not detected on first BAL, virus detected on 12/21/17 BAL. Significant debility PLAN: 1. Overall strength improving, RAINES improving. 2. Cont PO valgancyclovir. 3. Will likely need at least several more weeks of antiviral therapy. Low level detection currently, Will recheck CMV in blood next week. 4. Cont cresemba+braden. May be able to discharge with only cresemba PO. 5. monitor labs for toxicity. 6. Will plan for repeat CT chest at least [address] (12/20/17) or PRN based on clinical progress. 7. Will follow. Mr. Salas has complex disease requiring complex medical decision making for pneumonia, aspergillosis, therapeutic drug monitoring, resp failure. I reviewed the chart and interviewed and examined the patient and formulated the plan as above. Interval history: Darrius Salas is a 62 y.o. male. Patient afebrile. On 2-4L NC, RR 18. No new chagnes. +cough, SOB, chest discomfort. No f/c/ns, FERGUSON, neck pain. Working with therapy; ambulating with walker. 01/10/18 CMV in blood, <50IU/ml. ABX: Antimicrobial Start date End date levaquin 11/15 11/28 meropenem 11/19 11/22 vanc 11/20 11/22 vori 11/23-11/24 Restart 11/3012/22/17 isavuconazole 11/24 11/30 cefepime 11/2712/02/17 acyclovir 11/27-12/11/17, 12/22/17 12/24/17 Estimated Creatinine Clearance: 121.8 mL/min (A) (based on SCr of 0.39 mg/dL (L) ). Zosyn 12/10/17- 12/17/17 linezolid 12/10/17 - 12/17/17 Cresemba + braden 12/22/17 Ganciclovir 12/24/17 Medications Scheduled Meds: albuterol 0.5% (PROVENTIL; VENTOLIN) nebulizer solution 2.5 mg 2.5 mg Inhalation QID & PRN ascorbic acid (VITAMIN C) tablet 500 mg 500 mg Oral QDAY budesonide/formoterol (SYMBICORT HFA) 160/4.5 mcg inhalation 2 puff 2 puff Inhalation BID cholecalciferol (VITAMIN D-3) tablet 400 Units 400 Units Oral QDAY digoxin (LANOXIN) tablet 250 mcg 250 mcg Oral QDAY docusate (COLACE) capsule 100 mg 100 mg Oral BID fluticasone (FLONASE) nasal spray 2 spray 2 spray Each Nostril QDAY furosemide (LASIX) tablet 60 mg 60 mg Oral BID(9-17) guaiFENesin LA (MUCINEX) tablet 600 mg 600 mg Oral BID isavuconazonium sulfate (CRESEMBA) capsule 372 mg 372 mg Oral QDAY(21) lidocaine (LIDODERM) 5 % topical patch 1-2 patch 1-2 patch Topical QDAY metoprolol tartrate (LOPRESSOR) tablet 12.5 mg 12.5 mg Oral BID micafungin (MYCAMINE) 150 mg in sodium chloride 0.9% (NS) 110 mL IVPB 150 mg Intravenous Q24H* pantoprazole DR (PROTONIX) tablet 40 mg 40 mg Oral QDAY(21) polyethylene glycol 3350 (MIRALAX) packet 17 g 1 packet Oral BID rivaroxaban (XARELTO) tablet 20 mg 20 mg Oral QDAY w/breakfast senna (SENOKOT) tablet 2 tablet 2 tablet [...] Infusions: PRN and Respiratory Meds:acetaminophen Q4H PRN, aluminum/magnesium hydroxide Q4H PRN, bisacodyl QDAY PRN, dextran 70/hypromellose Q6H PRN, melatonin QHS PRN , milk of magnesia (CONC) Q4H PRN, ondansetron Q6H PRN, oxyCODONE Q4H PRN, pancrelipase 20,000 Units/ sodium bicarbonate 650 mg(#) PRN (Salad Bar Clerk from Rx), phenol PRN Objective Vital Signs: Last Filed Vital Signs: 24 Hour Range BP: 122/79 (01/11 1251) Temp: 36.5 C (97.7 F) (01/11 1251) Pulse: 93 (01/11 1251) Respirations: 18 PER MINUTE (01/11 1251) SpO2: 95 % (01/11 1251) O2 Delivery: Nasal Cannula (01/11 125) BP: (114-129)/(67-89) Temp: [36.4 C (97.6 F)-36.6 C (97.8 F)] Pulse: [87-93] Respirations: [18 PER MINUTE-20 PER MINUTE] SpO2: [95 %-98 %] O2 Delivery: Nasal Cannula Intensity Pain Scale (Self Report): 6 (01/11/18 0800) Vitals: 01/09/18 0516 01/10/18 0438 01/11/18 0649 Weight: 74.4 kg (164 lb 0.4 oz) 75.3 kg (166 lb) 75.1 kg (165 lb 8 oz) Physical Exam Gen: A&O X 3, no acute distress, appears ill HEENT: EOMI, no subconjunctival hemorrhages CV: RRR Resp: Clear bilat, air exchange poor bilaterally, +crackles Abd, soft, non tender, +BS Extremity: no edema Derm: no rash/lesions appreciated Lab Review Full labs reviewed. Recent Labs 01/10/18 0605 WBC 9.8 Radiology and other Diagnostics Review: Radiology viewed and reports reviewed I have interviewed and examined this patient today and viewed the vital signs, laboratory, microbiology and radiology. MD Caryn Marlow MD Infectious Diseases Faculty Pager: [phone] K GRADER * Kierra Gallegos, MICHELINE-BALLISTICS TESTER - 01/11/2018 11:20 AM STOCK GRADER Pulmonary Progress Note Name: Darrius Montero Josue Today's Date: 01/11/2018 Admission Date: 12/31/2017 LOS: 11 days Impression: 1. COPD with emphysematous blebs -tobacco use 0.5 - 2.5 ppd x 40 years -> cessation since recent admission -on Symbicort, Spiriva, albuterol 2. Acute on chronic hypoxic respiratory failure -baseline O2=2-3 L at night -initially transferred to [facility] in late October for worsening acute on chronic respiratory failure and progression of infectious pneumonitis d/t Legionella -> required ventilatory support -BAL Cx (+) Aspergillus, Tamar Glabarta, HSV, CMV -s/p intubation x 3 3. Right Pleural Effusion, loculated (improved; drain removed 12/29/17) -thoracentesis 12/16 -> removed 1800 ml exudative fluid -on Lasix 60 mg BID 4. Recent Septic Shock with polymicrobial Pneumonia - Legionella, C. Glabrata, Necrotizing Aspergillus 5. s/p PEA Arrest -now with multiple anterior rib fractures, paradoxical movement of the anteior chest wall, and sternal chest pain -> limits airway clearance 6. Atrial Fibrillation - s/p ablation in 2013 - HEAD START COORDINATOR xarelto, diltiazem - was cardioverted unsuccessfully at OSH, treated with amio, dig load (?) and diltiazem - history of PCI to RCA in March 2012 7. Severe Musculoskeletal Disability and Deconditioning -Ongoing active participation in rehab Recommendations: - Continue inhaler regimen with Symbicort, Spiriva, and albuterol - Continue abx per ID - Continue aggressive pulmonary hygiene with OOB, IS, Acapella - Given improvement in independent airway clearance ok to D/C cough assist - Continue tobacco cessation - history of nocturnal hypoxemia with elevated serum bicarb (though he is still considered in acute phase of illness and this may not represent his baseline) - recommend sleep study as an outpatient after discharge to assess for underlying DEYSI We will continue to follow. Above plan discussed with attending physician, Dr. Chawla. Kierra Gallegos APRN-BALLISTICS TESTER Pager [phone] Subjective Resting comfortably in bed at time of visit. Reports he continues to have a productive cough with clear - cloudy sputum. States he is coughing up sputum independently and using his IS/Aerobika multiple times per day. Denies any increase in shortness of breath or cough symptoms. Using 2-3L O2 at night at home - no previous sleep study Review of Systems Constitutional: Positive for malaise/fatigue. Negative for chills and fever. Respiratory: Positive for cough, sputum production and shortness of breath. Negative for hemoptysis. Cardiovascular: Positive for chest pain and leg swelling. Gastrointestinal: Positive for constipation, heartburn and nausea. Negative for diarrhea and vomiting. Musculoskeletal: Negative for myalgias. Neurological: Negative for dizziness and headaches. All other systems reviewed and are negative. Objective Vital Signs: Last Filed Vital Signs: 24 Hour Range BP: 114/67 (01/11 342) Temp: 36.4 C (97.6 F) (01/11 342) Pulse: 91 (01/11 342) Respirations: 18 PER MINUTE (01/11 342) SpO2: 96 % (01/11 342) O2 Delivery: Nasal Cannula (01/11) BP: (114-129)/(67-89) Temp: [36.4 C (97.6 F)-36.6 C (97.8 F)] Pulse: [87-92] Respirations: [18 PER MINUTE-20 PER MINUTE] SpO2: [96 %-98 %] O2 Delivery: Nasal Cannula Intake/Output Summary: (Last 24 hours) Intake/Output Summary (Last 24 hours) at 01/11/18 1120 Last data filed at 01/11/18 0800 Gross per 24 hour Intake 1450 ml Output 1825 ml Net -375 ml General: Awake, in no acute distress. HEENT: NC/AT, sclera non-icteric, moist mucus membranes. Neck: no JVD. CV: regular rhythm, normal rate, no murmurs. Lungs: clear to ausculation bilaterally, rhonchi bilaterally, on 2 L O2 - paradoxical chest movement Abdomen: soft, non-tender, non-distended, normo-active bowel sounds Extremities: 1+ BLE edema, pedal pulses 2 (+) bilaterally Neuro: no focal deficits Skin: no rashes Lab Review Recent CBC Recent Labs 01/10/18 0605 WBC 9.8 HGB 10.6* HCT 32.6* PLTCT 318 MCV 107.4* Recent CMP Recent Labs 01/10/18 0605 NA 134* K 3.5 CL 96* CO2 35* GAP 3 BUN 13 CR 0.49 GFR >60 GLU 107* CA 8.6 ALBUMIN 2.5* ALKPHOS 197* AST 23 ALT 17 TOTBILI 0.4 Other labs Pertinent labs reviewed Point of Care Testing (Last 24 hours) Radiology and other Diagnostics Review: No new imaging to review Medications Scheduled IV PRN albuterol 0.5% (PROVENTIL; VENTOLIN) nebulizer solution 2.5 mg 2.5 mg Inhalation QID & PRN ascorbic acid (VITAMIN C) tablet 500 mg 500 mg Oral QDAY budesonide/formoterol (SYMBICORT HFA) 160/4.5 mcg inhalation 2 puff 2 puff Inhalation BID cholecalciferol (VITAMIN D-3) tablet 400 Units 400 Units Oral QDAY digoxin (LANOXIN) tablet 250 mcg 250 mcg Oral QDAY docusate (COLACE) capsule 100 mg 100 mg Oral BID fluticasone (FLONASE) nasal spray 2 spray 2 spray Each Nostril QDAY furosemide (LASIX) tablet 60 mg 60 mg Oral BID(9-17) guaiFENesin LA (MUCINEX) tablet 600 mg 600 mg Oral BID isavuconazonium sulfate (CRESEMBA) capsule 372 mg 372 mg Oral QDAY(21) lidocaine (LIDODERM) 5 % topical patch 1-2 patch 1-2 patch Topical QDAY metoprolol tartrate (LOPRESSOR) tablet 12.5 mg 12.5 mg Oral BID micafungin (MYCAMINE) 150 mg in sodium chloride 0.9% (NS) 110 mL IVPB 150 mg Intravenous Q24H* pantoprazole DR (PROTONIX) tablet 40 mg 40 mg Oral QDAY(21) polyethylene glycol 3350 (MIRALAX) packet 17 g 1 packet Oral BID rivaroxaban (XARELTO) tablet 20 mg 20 mg Oral QDAY w/breakfast senna (SENOKOT) tablet 2 tablet 2 tablet [...] tablet 1 tablet 1 tablet Oral QDAY acetaminophen Q4H PRN, aluminum/magnesium hydroxide Q4H PRN, bisacodyl QDAY PRN, dextran 70/hypromellose Q6H PRN, melatonin QHS PRN, milk of magnesia (CONC ) Q4H PRN, ondansetron Q6H PRN, oxyCODONE Q4H PRN, pancrelipase 20,000 Units/ sodium bicarbonate 650 mg(#) PRN (Salad Bar Clerk from Rx), phenol PRN K GRADER * Beatriz Ortiz MD - 01/11/2018 10:30 AM STOCK GRADER ATTESTATION I personally performed the gaytan portions of the E/M visit, discussed case with resident and concur with resident documentation of history, physical exam, assessment, and treatment plan unless otherwise noted. Pt doing well, took a shower this morning on 3L NC. 2L NC at rest. Labs and VS reviewed and stable. BM after enema yesterday, increased Miralax BID. Liam count still below needs, cont noct TF for now and f/u with Enologist. Patient remains medically stable to participate in IRF program. Staff name: Beatriz Ortiz MD Date: 01/11/2018 Physical Medicine & Rehabilitation Progress Note Today's Date: 01/11/2018 Admission Date: 12/31/2017 LOS: 11 days Insurance: Medicare Principal Problem: Debility Active Problems: CHF (congestive heart failure) (HCC) CAD (coronary artery disease) AF (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) (HCC) jail current use of anticoagulant COPD (chronic obstructive pulmonary disease) (HCC) HTN (hypertension) HLD (hyperlipidemia) Alcohol abuse Tobacco abuse S/P ablation of 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 Pneumonia Respiratory failure, aeykg-gt-jlfbeiv (HCC) Cytomegalovirus (CMV) viremia (HCC) Impaired mobility and activities of daily living Assessment/Plan: Mr. Darrius Salas is a 62 [...] placement, thoracentesis s/p chest tube placement. He now presents to IRF with debility warranting PT/OT/STATE TROOPER therapies. Rehabilitation Plan Rehabilitation: Patient will continue with comprehensive therapies including physical therapy, occupational therapy, speech & language pathology, specialized rehab nursing, neuropsychology and physiatry oversight. Goals: SBA RW , WC Tentative discharge date: 02/07/18 Recommended therapy after discharge: Home health PT/OT/STATE TROOPER Recommended equipment: TBD Most likely RW, tub transfer bench, possible manual wc Daily Functional Update: Transfers Device Sit to Stand Transfer: Assistive Device: Roller Walker (01/11/2018 8:00 AM) No Data Recorded Gait Device Assist Required Distance Gait: Assistive Device: Parallel Bars (01/08/2018 3:00 PM) No Data Recorded Gait Distance: 20 feet (total) (01/08/2018 3:00 PM) Standing Balance Static Dynamic No Data Recorded No Data Recorded Toileting Assist Required Equipment Toilet Transfer Toileting Assist: Total Assist (01/08/2018 8:00 AM) Toileting Equipment: Commode - 3 in 1 padded (frame over toilet.) (01/08/2018 8 :00 AM) No Data Recorded Dressing Lower Body LE Dressing Assist: Moderate Assist (01/11/2018 8:00 AM) Debility secondary to acute on chronic hypoxic respiratory failure Legionella pneumonia (PNA), invasive necrotizing aspergillosis PNA, BAL with positive HSV & CMV PNA Decreased pulmonary reserve Generalized weakness Decreased endurance Impaired mobility and ADLs - Baseline O2 2-3 L QHS, currently tolerating 2L NC - s/p x3 intubation/extubations - s/p PEA arrest (extubated 11/24) - s/p treatment with linezolid, zosyn - Immunology followed across street for multiple opportunistic infxs - 01/05: s/p pecs and anterior scalene peripheral nerve block by acute anesthesia pain service > ID consulted for continuation of care > CMV quant-blood every Wednesday, CMP every Wednesday > Continue antibiotics including micafungin IV, Cresemba 372mg QD , valganciclovir 900mg BID > Can likely stop micafungin at discharge, will continue at least 3 months cresemba, 4-6wks valganciclovir > Repeat CT chest [address] or PRN (last CT 12/20) > Continue aggressive pulmonary hygiene with Aerobika and IS, cough assist > Consult PT/OT Right sided pleural effusion COPD - on 2-3L QHS at baseline - s/p RR 12/16 for incr 02 requirement, thoracentesis 1800cc exudative fluid - s/p chest tube removal 12/29 - 01/05: s/p pecs and anterior scalene peripheral nerve block by acute anesthesia pain service > Continue albuterol nebs Q4H PRN, atrovent nebs Q4H PRN > Continue HEAD START COORDINATOR Symbicort BID, flonase BID, Spiriva daily > Continue lasix 60mg BID, guaifenesin LA 600mg BID > Regular dressing over pleurX site and monitor for fluid output Paroxysmal Atrial Fibrillation with RVR CAD s/p PCI 03/2012 Chronic HFpEF HTN HLD - s/p ablation 2013 - Failed cardioversion at OSH - Previously on amiodarone, d/c'd due to LFTs > Continue lasix 60mg BID, digoxin 250mcg QD, metoprolol 12.5mg BID, and xarelto 20mg QD > Holding HEAD START COORDINATOR Coreg, Cardizem, Vasotect, Lipitor > Continue daily weights, weight down today, CTM Elevated Alk phos - LFTs WNL - GI consulted across street - 12/20/17: CT A/P w/ contrast without inflammatory mass, ascites, or bowel obstruction. However, fusiform infrarenal abdominal aortic aneurysm measuring up to 4.9 cm in maximum diameter. > Continue nutritional support with calorie count > Consult hepatology if any issues arise > CMP every Wednesday, alk phos continues to improve, AST/ALT WNL > F/u in hepatology clinic on discharge Dysphagia- improved to resolved > Continue condensed nocturnal feeds and calorie count, resolution of N/V today, condense as able, will discuss with nutrition > Continue regular solids/thin liquids > Consult dietitian and STATE TROOPER (STATE TROOPER also working on cough therapy) Opioid induced constipation: continue docusate 100mg BID, miralax BID, senna 2 tab BID Macrocytic anemia, stable, CTM with CBC Sleep disturbance: melatonin 5mg QHS PRN GERD: PPI Pain Management: Tylenol PRN and lidocaine patches, oxycodone 5mg Q3Hr Skin: There is / are 1 pressure sore(s) including coccyx/buttocks. Continue vit a & d ointment Bowel: continent of bowel Bladder: continent of bladder, passed BVIs x3 until <125ml and ISC for >300ml Nutrition: Current diet: regular as patient is on calorie count Feeding tube: Nocturnal compressed feeds of Nutren 2.0 at 80ml/hr x 8hrs, continue vit C, Vit D, thiamine, multiV Calorie count in place Mental Health: consult neuropsychology to provide support / counseling DVT Prophylaxis: Xarelto Code status: DNAR-FI (no CPR or intubation) Nela Santoro D.O.,M.B.A. Physical Medicine and Rehabilitation, PGY-2 Pager [phone] Subjective Darrius Salas is a 62 y.o. M seen in his room this morning. He took a shower with max 3L on. He remains at 2L now. Patient subjectively feels well. He is working hard in therapy and is Emily currently. No BM yet today. Continues to make FIM gains. Objective Vital Signs: Last Filed Vital Signs: 24 Hour Range BP: 114/67 (01/11 342) Temp: 36.4 C (97.6 F) (01/11 342) Pulse: 91 (01/11 342) Respirations: 18 PER MINUTE (01/11 342) SpO2: 96 % (01/11 342) O2 Delivery: Nasal Cannula (01/11 342) BP: (114-129)/(67-89) Temp: [36.4 C (97.6 F)-36.6 C (97.8 F)] Pulse: [87-92] Respirations: [18 PER MINUTE-20 PER MINUTE] SpO2: [96 %-98 %] O2 Delivery: Nasal Cannula Intensity Pain Scale (Self Report): 6 (01/11/18 0800) Vitals: 01/09/18 0516 01/10/18 0438 01/11/18 0649 Weight: 74.4 kg (164 lb 0.4 oz) 75.3 kg (166 lb) 75.1 kg (165 lb 8 oz) Intake/Output Summary: (Last 24 hours) Intake/Output Summary (Last 24 hours) at 01/11/18 1030 Last data filed at 01/11/18 0800 Gross per 24 hour Intake 1450 ml Output 2000 ml Net -550 ml Stool Occurrence: 1 Oral Diet Order: Regular Last Bowel Movement Date: 01/10/18 Lab: No results found for this visit on 12/31/17 (from the past 24 hour(s)). Physical Exam VS: BP 114/67 (BP Source: Arm, Left Upper) | Pulse 91 | Temp 36.4 C (97.6 F) | Ht 182.9 cm (72.01") | Wt 75.1 kg (165 lb 8 oz) | SpO2 96% | BMI 22.44 kg/m Gen: Alert & Conversant, No Acute Distress HEENT: Normocephalic, atraumatic, sclera anicteric, conjunctiva not injected, congestion, NC in place 2L Neck: Supple, no elevated JVP Heart: Regular Rate & Rhythm, No Murmur Lungs: Good inspiratory effort , upper airway sounds consistent with secretions Abdomen: Soft, non-tender, non-distended, PEG in place Skin: Warm, dry Ext: No edema or erythema noted in b/l lower limbs MS: Proximal muscle weakness stable, 4+/5 b/l LE hip flexion, 5/5 b/l dorsiflexion Therapy Notes & Labs Reviewed. K GRADER * Leslie Flores - 01/11/2018 7:47 AM STOCK GRADER SPEECH-LANGUAGE PATHOLOGY REHAB SPEECH DAILY NOTE SUMMARY: Pt seen by STATE TROOPER for 30 minutes targeting dysphagia and speech. PLAN: Continue current therapy plan; new chcf goal developed targeting respiratory support for speech. FREQUENCY TODAY: 1x RECOMMENDATIONS 1. Continue regular solids and thin liquids with use of compensatory swallow strategies (small bites/sips, slow rate, head turn LEFT with solids/liquids w/ 2 effortful swallows per bolus). *If exhibiting negative pulmonary status changes, please cease PO intake. 2. Medications as tolerated by pt, likely tolerated with thin liquids. 3. Excellent oral care to reduce risk of aspirated bacteria from oral cavity(2 -3x/daily). 4. May benefit from repeat instrumental swallow evaluation before d/c. ACTIVITIES FOR THE DAY: Pt completed expiratory strengthening exercise with use of EMST device for 5 sets of x5 repetitions at "35." STATE TROOPER provided minimal verbal cues however constant application of diaphragmatic "scooping" technique in order to maximize diaphragmatic expansion. Pt generated productive cough following exercises x2 with expectoration of minimal, thick cloudy secretions. Marked improvement in frequency of cough and amount of secretions generated in last week. Pt completed inspiratory muscle strengthening exercises utilizing inspiratory spirometer of 4 sets of x5 repetitions at 1500mL. Pt participated in basic conversation generating an average of x7-9 syllables per breath group given moderate cues for deep breaths. Speech [employer] [place] Goals STATE TROOPER Shelter Goals: Yes Will maximize speech production for independent communication with: Minimal assist Patient will exhibit safe swallow for least restrictive consistency: Progressing Other [employer] [place] Goals: Achieved Speech Short Term Goals Other (comment): Pt will demonstrate breath support sufficient to generate x10- 12 syllables per breath group given minimal cues. Dysphagia: Yes Will tolerate current diet without signs of aspiration: Progressing Will participate in repeat instrumental swallow evaluation when clinically indicated: Progressing Therapist: Leslie Flores MA, CCC-STATE TROOPER Voalte: [id number] Date: 01/11/2018 K GRADER * Kacie Evans - 01/11/2018 6:49 AM STOCK GRADER Heart Failure Nursing Progress Note Admission Date: 12/31/2017 LOS: 11 days Admission Weight: 74.3 kg (163 lb 12.8 oz) Most recent weights (inpatient): Vitals: 01/09/18 0516 01/10/18 0438 01/11/18 0649 Weight: 74.4 kg (164 lb 0.4 oz) 75.3 kg (166 lb) 75.1 kg (165 lb 8 oz) Weight change from previous day: -0.2kg Fluid restriction ordered: none Intake/Output Summary: (Last 24 hours) Intake/Output Summary (Last 24 hours) at 01/11/18 0649 Last data filed at 01/11/18 0532 Gross per 24 hour Intake 1880 ml Output 1775 ml Net 105 ml Is patient incontinent No Anticipated discharge date: 01/28 Discharge goals: Return home Daily Assessment of Patient Stated Goals: Short Term Goal Identified by patient (Short Term=during hospitalization): Feel better K GRADER * Akiko Barnes RN - 01/10/2018 4:47 PM STOCK GRADER Heart Failure Nursing Progress Note Admission Date: 12/31/2017 LOS: 10 days Admission Weight: 74.3 kg (163 lb 12.8 oz) Most recent weights (inpatient): Vitals: 01/08/18 0636 01/09/18 0516 01/10/18 0438 Weight: 74.3 kg (163 lb 12.8 oz) 74.4 kg (164 lb 0.4 oz) 75.3 kg (166 lb) Weight change from previous day:+0.9kg Fluid restriction ordered: None Intake/Output Summary: (Last 24 hours) Intake/Output Summary (Last 24 hours) at 01/10/18 1648 Last data filed at 01/10/18 1621 Gross per 24 hour Intake 1933 ml Output 1500 ml Net 433 ml Is patient incontinent No Anticipated discharge date: 01/28 Discharge goals: Return home Daily Assessment of Patient Stated Goals: Short Term Goal Identified by patient (Short Term=during hospitalization): Maintain fluid balance K GRADER * Patrica Zapien - 01/10/2018 3:33 PM STOCK GRADER CLINICAL NUTRITION Clinical Nutrition Assessment Summary NAME:Darrius Salas :1955 AGE: 62 y.o. ADMISSION DATE: 12/31/2017 DAYS ADMITTED: LOS: 10 days Nutrition Assessment of Patient: BMI Categories Adult: Acceptable: 18.5-24.9 (BMI 22.18) Unintentional Weight Loss: (-5.1kg from reported UBW(6.5%) 2-3mo) Malnutrition Assessment: Does not meet criteria Current Oral Intake: Adequate Estimated Calorie Needs: 8931-1938 (25-30kcal/kg of 74kg) Estimated Protein Needs: 89-104 (1.2-1.4g/kg of 74kg) Oral Diet Order: Regular 3-day EN avg: Intake (calories) Daily Average : 1216 kilocalories (95% of goal) Intake (protein) Daily Average : 51 grams (96% of goal) Current EN Order: Nutren 2.0 @ 80ml/hr x 8 hrs nocturnal + 200ml water bolus Q6H. Provides 1280kcal, 53g protein. 3-day Calorie Count av kcal, 61g protein Total combined nutrition: meeting 100% of needs Comments: Pt admitted to inpatient rehab on 12/31 for debility. PMH of COPD, tobacco/etoh use, CAD s/p PCI admitted as a transfer from an OSH for resp failure 2/2 PNA & inability to wean off vent. Was extubated 11/14, then cleared for FLD by STATE TROOPER, but was taking minimal PO nutrition & team placed corpak & started EN 11/17 afternoon. Pt was re-intubated 11/18-11/24. Received EN during and following intubation. PEG placed 12/15. RR 12/16 d/t increased O2 requirements and transferred back to MICU. Pt received limited EN intake from 12/17-12/22 d/t significant TF holds and elevated GRVs and for procedures. STATE TROOPER following; pt advanced to pureed diet with nectar thick liquids 12/21, pureed diet with thin liquids on 12/27, advanced to mech soft with thin liquids on 12/29, and regular solids on 12/30. Pts enteral order switched from continuous to bolus feeds on and then to nocturnal compressed feeds on 12/30. Pt is tolerating TF well, meeting goal. Calorie count shows PO intake improvement. Pt is meeting needs via combined routes of nutrition. Today, pt had episode of n/v following bout of constipation and bowel meds. Pt reports some nausea still this afternoon, but is hoping event was singular. He is holding off on eating lunch today to allow stomach to settle. RN with report of pt doing very well nutritionally overall. Stage 2 to buttock remains, but is felt to be less on staging per leather repairer; wound team consulted (original date of wound in November). Pitting 1 + edema noted. Lasix on board. Thiamine, folic acid, MVI continue. Discussed with pt continuation of combined nutrition until n/v is verified to be a one time incident. Dimitri reassess in two days. Recommendation: Continue current EN/PO intake regimen until n/v verified to be resolved. Will f/ u in 48 hrs to assess readiness for dc of EN feeds. Intervention / Plan: Monitor calorie count, transition off of TF, EN rate/tolerance Monitor wt, labs, skin, gi, meds, fluids Nutrition Diagnosis: Inadequate oral intake Etiology: decreased appetite, altered taste, recent modified food textured diet Signs & Symptoms: pt report, continued need for supplemental EN Goals: Transition from enteral to oral Time Frame: Within 72 Hours PO intake to meet >85% nutritional needs Time Frame: Within [address], LD *[id number] K GRADER * Kierra Gallegos APRN-TINO - 01/10/2018 12:53 PM STOCK GRADER Pulmonary Progress Note Name: Darrius Montero Josue Today's Date: 01/10/2018 Admission Date: 12/31/2017 LOS: 10 days Impression: 1. COPD with emphysematous blebs -tobacco use 0.5 - 2.5 ppd x 40 years -> cessation since recent admission -on Symbicort, Spiriva, albuterol 2. Acute on chronic hypoxic respiratory failure -baseline O2=2-3 L at night -initially transferred to [facility] in late October for worsening acute on chronic respiratory failure and progression of infectious pneumonitis d/t Legionella -> required ventilatory support -BAL Cx (+) Aspergillus, Tamar Glabarta, HSV, CMV -s/p intubation x 3 3. Right Pleural Effusion, loculated (improved; drain removed 12/29/17) -thoracentesis 12/16 -> removed 1800 ml exudative fluid -on Lasix 60 mg BID 4. Recent Septic Shock with polymicrobial Pneumonia - Legionella, C. Glabrata, Necrotizing Aspergillus 5. s/p PEA Arrest -now with multiple anterior rib fractures, paradoxical movement of the anteior chest wall, and sternal chest pain -> limits airway clearance 6. Atrial Fibrillation - s/p ablation in 2013 - HEAD START COORDINATOR xarelto, diltiazem - was cardioverted unsuccessfully at OSH, treated with amio, dig load (?) and diltiazem - history of PCI to RCA in March 2012 7. Severe Musculoskeletal Disability and Deconditioning -Ongoing active participation in rehab Recommendations: - Continue inhaler regimen with Symbicort, Spiriva, and albuterol - Continue abx per ID - Continue aggressive pulmonary hygiene with OOB, IS, Acapella, cough assist - Continue tobacco cessation We will continue to follow. Above plan discussed with attending physician, Dr. Chawla. Kierra Gallegos APRN-BALLISTICS TESTER Pager [phone] Subjective Resting comfortably in bed at time of visit. Reports improvement in cough following modification to pain regimen - now producing increased volume of clear sputum. One episode of emesis this AM while working with PT. Increase in sputum production - clear. Pain better controlled. Ongong GI upset. Denies any fever, chill, or night sweats. Appetite improving. Review of Systems Constitutional: Positive for malaise/fatigue. Negative for chills and fever. Respiratory: Positive for cough, sputum production and shortness of breath. Negative for hemoptysis. Cardiovascular: Positive for chest pain and leg swelling. Gastrointestinal: Positive for constipation, heartburn and nausea. Negative for diarrhea and vomiting. Musculoskeletal: Negative for myalgias. Neurological: Negative for dizziness and headaches. All other systems reviewed and are negative. Objective Vital Signs: Last Filed Vital Signs: 24 Hour Range BP: 124/81 (01/10 438) Temp: 36.5 C (97.7 F) (01/10 438) Pulse: 89 (01/10 438) Respirations: 20 PER MINUTE (01/10 438) SpO2: 96 % (01/10 438) O2 Delivery: Nasal Cannula (01/10 438) BP: (124-141)/(81-93) Temp: [36.5 C (97.7 F)-36.6 C (97.9 F)] Pulse: [66-94] Respirations: [16 PER MINUTE-20 PER MINUTE] SpO2: [94 %-99 %] O2 Delivery: Nasal Cannula Intake/Output Summary: (Last 24 hours) Intake/Output Summary (Last 24 hours) at 01/10/18 1300 Last data filed at 01/10/18 1041 Gross per 24 hour Intake 2433 ml Output 1775 ml Net 658 ml General: Awake, in no acute distress. HEENT: NC/AT, sclera non-icteric, moist mucus membranes. Neck: no JVD. CV: regular rhythm, normal rate, no murmurs. Lungs: clear to ausculation bilaterally, decreased at bases, on 2 L O2 Abdomen: soft, non-tender, non-distended, normo-active bowel sounds Extremities: 1+ BLE edema, pedal pulses 2 (+) bilaterally Neuro: no focal deficits Skin: no rashes Lab Review Recent CBC Recent Labs 01/10/18 0605 WBC 9.8 HGB 10.6* HCT 32.6* PLTCT 318 MCV 107.4* Recent CMP Recent Labs 01/10/18 0605 NA 134* K 3.5 CL 96* CO2 35* GAP 3 BUN 13 CR 0.49 GFR >60 GLU 107* CA 8.6 ALBUMIN 2.5* ALKPHOS 197* AST 23 ALT 17 TOTBILI 0.4 Other labs Pertinent labs reviewed Point of Care Testing (Last 24 hours) Glucose: (!) 107 (01/10/18 0605) Radiology and other Diagnostics Review: No new imaging to review Medications Scheduled IV PRN albuterol 0.5% (PROVENTIL; VENTOLIN) nebulizer solution 2.5 mg 2.5 mg Inhalation QID & PRN ascorbic acid (VITAMIN C) tablet 500 mg 500 mg Oral QDAY budesonide/formoterol (SYMBICORT HFA) 160/4.5 mcg inhalation 2 puff 2 puff Inhalation BID cholecalciferol (VITAMIN D-3) tablet 400 Units 400 Units Oral QDAY digoxin (LANOXIN) tablet 250 mcg 250 mcg Oral QDAY docusate (COLACE) capsule 100 mg 100 mg Oral BID fluticasone (FLONASE) nasal spray 2 spray 2 spray Each Nostril QDAY furosemide (LASIX) tablet 60 mg 60 mg Oral BID(9-17) guaiFENesin LA (MUCINEX) tablet 600 mg 600 mg Oral BID isavuconazonium sulfate (CRESEMBA) capsule 372 mg 372 mg Oral QDAY(21) lidocaine (LIDODERM) 5 % topical patch 1-2 patch 1-2 patch Topical QDAY metoprolol tartrate (LOPRESSOR) tablet 12.5 mg 12.5 mg Oral BID micafungin (MYCAMINE) 150 mg in sodium chloride 0.9% (NS) 110 mL IVPB 150 mg Intravenous Q24H* pantoprazole DR (PROTONIX) tablet 40 mg 40 mg Oral QDAY(21) rivaroxaban (XARELTO) tablet 20 mg 20 mg Oral QDAY w/breakfast senna (SENOKOT) tablet 2 tablet 2 tablet [...] tablet 1 tablet 1 tablet Oral QDAY acetaminophen Q4H PRN, aluminum/magnesium hydroxide Q4H PRN, bisacodyl QDAY PRN, dextran 70/hypromellose Q6H PRN, melatonin QHS PRN, milk of magnesia (CONC ) Q4H PRN, ondansetron Q6H PRN, oxyCODONE Q4H PRN, pancrelipase 20,000 Units/ sodium bicarbonate 650 mg(#) PRN (Sal[employer] Bar Clerk from Rx), phenol PRN K GRADER * Akiko Barnes RN - 01/10/2018 12:08 PM STOCK GRADER Patient had medium emesis while working with PT this morning. Abdomen is distended/firm with hypoactive bowel sounds. Gave milk of magnesia with AM med pass. Gave Dulcolax suppository at 1045 with no results. Gave milk and molasses enema at 1130. Patient was then continent of a large bowel movement on the commode. K GRADER * Estephanie Tapia MD - 01/10/2018 9:06 AM STOCK GRADER ATTESTATION I personally observed the resident performing the E/M, discussed case with resident, and concur with resident documentation of history, physical assessment and treatment plan unless otherwise noted. Labs and vitals reviewed and stable. Adjusting bowel medications today due to opioid induced constipation. Patient remains medically and functionally stable for continued participation in acute inpatient rehabilitation. 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 Darrius Salas is a 62 [...] placement, thoracentesis s/p chest tube placement. He now presents to IRF with debility warranting PT/OT/STATE TROOPER therapies. Rehabilitation Plan Rehabilitation: Patient will continue with comprehensive therapies including physical therapy, occupational therapy, speech & language pathology, specialized rehab nursing, neuropsychology and physiatry oversight. Goals: SBA RW , WC Tentative discharge date: 02/07/18 Recommended therapy after discharge: Home health PT/OT/STATE TROOPER Recommended equipment: TBD Most likely RW, tub transfer bench, possible manual wc Daily Functional Update: Transfers Device Sit to Stand Transfer: Assistive Device: Hand Hold Assist (01/08/2018 3:00 PM) No Data Recorded Gait Device Assist Required Distance Gait: Assistive Device: Parallel Bars (01/08/2018 3:00 PM) No Data Recorded Gait Distance: 20 feet (total) (01/08/2018 3:00 PM) Standing Balance Static Dynamic No Data Recorded No Data Recorded Toileting Assist Required Equipment Toilet Transfer Toileting Assist: Total Assist (01/08/2018 8:00 AM) Toileting Equipment: Commode - 3 in 1 padded (frame over toilet.) (01/08/2018 8 :00 AM) No Data Recorded Dressing Lower Body LE Dressing Assist: Maximum Assist (01/07/2018 9:15 AM) Debility secondary to acute on chronic hypoxic respiratory failure Legionella pneumonia (PNA), invasive necrotizing aspergillosis PNA, BAL with positive HSV & CMV PNA Decreased pulmonary reserve Generalized weakness Decreased endurance Impaired mobility and ADLs - Baseline O2 2-3 L QHS, currently tolerating 2L NC - s/p x3 intubation/extubations - s/p PEA arrest (extubated 11/24) - s/p treatment with linezolid, zosyn - Immunology followed across [facility] for multiple opportunistic infxs - 01/05: s/p pecs and anterior scalene peripheral nerve block by acute anesthesia pain service > ID consulted for continuation of care > CMV quant-blood every Wednesday, CMP every Wednesday > Continue antibiotics including micafungin IV, Cresemba 372mg QD , valganciclovir 900mg BID > Can likely stop micafungin at discharge, will continue at least 3 months cresemba, 4-6wks valganciclovir > Repeat CT chest [address] or PRN > Continue aggressive pulmonary hygiene with Aerobika and IS, cough assist > Consult PT/OT Right sided pleural effusion COPD - on 2-3L QHS at baseline - s/p RR 12/16 for incr 02 requirement, thoracentesis 1800cc exudative fluid - s/p chest tube removal 12/29 > Continue albuterol nebs Q4H PRN, atrovent nebs Q4H PRN > Continue HEAD START COORDINATOR Symbicort BID, flonase BID, Spiriva daily > Continue lasix 60mg BID, guaifenesin LA 600mg BID > Regular dressing over pleurX site and monitor for fluid output Paroxysmal Atrial Fibrillation with RVR CAD s/p PCI 03/2012 Chronic HFpEF HTN HLD - s/p ablation 2013 - Failed cardioversion at OSH - Previously on amiodarone, d/c'd due to LFTs > Continue lasix 60mg BID, digoxin 250mcg QD, metoprolol 12.5mg BID, and xarelto 20mg QD > Holding HEAD START COORDINATOR Coreg, Cardizem, Vasotect, Lipitor > Continue daily weights, weight stable today Elevated Alk phos - LFTs WNL - GI consulted across [facility] - 12/20/17: CT A/P w/ contrast without inflammatory mass, ascites, or bowel obstruction. However, fusiform infrarenal abdominal aortic aneurysm measuring up to 4.9 cm in maximum diameter. > Continue nutritional support with calorie count > Consult hepatology if any issues arise > CMP every Wednesday, alk phos continues to improve, AST/ALT WNL > F/u in hepatology clinic on discharge Dysphagia- improved to resolved > Continue condensed nocturnal feeds and calorie count, still not eating enough to come off night TF, condense as able > Continue regular solids/thin liquids > Consult dietitian and STATE TROOPER (STATE TROOPER also working on cough therapy) Opioid induced constipation: emesis during therapy, suppository and milk of mag , enema resulted in large BM Macrocytic anemia, stable, CTM with CBC Sleep disturbance: melatonin 5mg QHS PRN GERD: PPI Pain Management: Tylenol PRN and lidocaine patches, oxycodone 5mg Q3Hr Skin: There is / are 1 pressure sore(s) including coccyx/buttocks. Continue vit a & d ointment Bowel: continent of bowel Bladder: continent of bladder, passed BVIs x3 until <125ml and ISC for >300ml Nutrition: Current diet: regular as patient is on calorie count Feeding tube: Nocturnal compressed feeds of Nutren 2.0 at 80ml/hr x 8hrs, continue vit C, Vit D, thiamine, multiV Calorie count in place Mental Health: consult neuropsychology to provide support / counseling DVT Prophylaxis: Xarelto Code status: DNAR-FI (no CPR or intubation) Nela Santoro D.O.,M.B.A. Physical Medicine and Rehabilitation, PGY-2 Pager [phone] Subjective Darrius Salas is a 62 y.o. M seen in his room this morning. He is having trouble with BM today. Encouraged enema to nursing. Successful BM noted later. Otherwise, breathing has improved. He still has pain after the peripheral nerve block but he has continued to improve with clearing secretions. Down to 2 L on NC. No other changes today. Objective Vital Signs: Last Filed Vital Signs: 24 Hour Range BP: 124/81 (01/10 438) Temp: 36.5 C (97.7 F) (01/10 438) Pulse: 89 (01/10 438) Respirations: 20 PER MINUTE (01/10 438) SpO2: 96 % (01/10 438) O2 Delivery: Nasal Cannula (01/10 438) BP: (124-141)/(81-93) Temp: [36.5 C (97.7 F)-36.6 C (97.9 F)] Pulse: [66-94] Respirations: [16 PER MINUTE-20 PER MINUTE] SpO2: [94 %-99 %] O2 Delivery: Nasal Cannula Intensity Pain Scale (Self Report): 4 (01/10/18437) Vitals: 11/24/18 0636 01/09/18 0516 01/10/18 0438 Weight: 74.3 kg (163 lb 12.8 oz) 74.4 kg (164 lb 0.4 oz) 75.3 kg (166 lb) Intake/Output Summary: (Last 24 hours) Intake/Output Summary (Last 24 hours) at 01/10/18 0906 Last data filed at 01/10/18 0444 Gross per 24 hour Intake 2823 ml Output 1900 ml Net 923 ml Stool Occurrence: 1 Oral Diet Order: Regular Last Bowel Movement Date: 01/08/18 Lab: Results for orders placed or performed during the hospital encounter of (from the past 24 hour(s)) COMPREHENSIVE METABOLIC PANEL Collection Time: 01/10/18 6:05 AM # # Low-High Sodium 134 (L) 137 - 147 MMOL/L Potassium 3.5 3.5 - 5.1 MMOL/L Chloride 96 (L) 98 - 110 MMOL/L Glucose 107 (H) 70 - 100 MG/DL Blood Urea Nitrogen 13 7 - 25 MG/DL Creatinine 0.49 0.4 - 1.24 MG/DL Calcium 8.6 8.5 - 10.6 MG/DL Total Protein 6.4 6.0 - 8.0 G/DL Total Bilirubin 0.4 0.3 - 1.2 MG/DL Albumin 2.5 (L) 3.5 - 5.0 G/DL Alk Phosphatase 197 (H) 25 - 110 U/L AST (SGOT) 23 7 - 40 U/L CO2 35 (H) 21 - 30 MMOL/L ALT (SGPT) 17 7 - 56 U/L Anion Gap 3 3 - 12 eGFR Non >60 >60 mL/min eGFR >60 >60 mL/min CBC AND DIFF Collection Time: 01/10/18 6:05 AM # # Low-High White Blood Cells 9.8 4.5 - 11.0 K/UL RBC 3.03 (L) 4.4 - 5.5 M/UL Hemoglobin 10.6 (L) 13.5 - 16.5 GM/DL Hematocrit 32.6 (L) 40 - 50 % MCV 107.4 (H) 80 - 100 FL MCH 35.1 (H) 26 - 34 PG MCHC 32.7 32.0 - 36.0 G/DL RDW 20.2 (H) 11 - 15 % Platelet Count 318 150 - 400 K/UL MPV 7.2 7 - 11 FL Neutrophils 90 (H) 41 - 77 % Lymphocytes 10 (L) 24 - 44 % Monocytes 0 (L) 4 - 12 % Eosinophils 0 0 - 5 % Basophils 0 0 - 2 % Absolute Neutrophil Count 8.70 (H) 1.8 - 7.0 K/UL Absolute Lymph Count 1.00 1.0 - 4.8 K/UL Absolute Monocyte Count 0.00 0 - 0.80 K/UL Absolute Eosinophil Count 0.00 0 - 0.45 K/UL Absolute Basophil Count 0.00 0 - 0.20 K/UL Physical Exam VS: BP 124/81 (BP Source: Arm, Left Upper) | Pulse 89 | Temp 36.5 C (97.7 F) | Ht 182.9 cm (72.01") | Wt 75.3 kg (166 lb) | SpO2 96% | BMI 22.51 kg/m Gen: Alert & Conversant, No Acute Distress HEENT: Normocephalic, atraumatic, sclera anicteric, conjunctiva not injected, congestion, NC in place 2L Neck: Supple, no elevated JVP, chest tube site covered with bandages, no drainage noted Heart: Regular Rate & Rhythm, No Murmur Lungs: Good inspiratory effort , upper airway sounds consistent with secretions Abdomen: Soft, non-tender, non-distended, PEG in place Skin: Warm, dry Ext: No edema or erythema noted in b/l lower limbs MS: Proximal muscle weakness stable. Therapy Notes & Labs Reviewed. K GRADER * Leslie Flores - 01/10/2018 7:45 AM STOCK GRADER SPEECH-LANGUAGE PATHOLOGY REHAB SPEECH DAILY NOTE SUMMARY: Pt seen by STATE TROOPER for 30 minutes targeting dysphagia. PLAN: Continue current therapy plan FREQUENCY TODAY: 1x RECOMMENDATIONS 1. Continue regular solids and thin liquids with use of compensatory swallow strategies (small bites/sips, slow rate, head turn LEFT with solids/liquids w/ 2 effortful swallows per bolus). *If exhibiting negative pulmonary status changes, please cease PO intake. 2. Medications as tolerated by pt, likely tolerated with thin liquids. 3. Excellent oral care to reduce risk of aspirated bacteria from oral cavity(2 -3x/daily). 4. May benefit from repeat instrumental swallow evaluation before d/c. ACTIVITIES FOR THE DAY: Per RN, pt with episode of emesis earlier this date. Pt politely refused all PO trials this date due to nausea. Pt able to independently recall x2/4 swallow strategies improving to 4/4 given initial cues. Exercise program targeting expiratory Muscle strength training reviewed with pt including frequency each day. External aid provided in room. Pt completed 5 sets of x5 breaths with EMST set to 60 provided 1 minute break at end of each trial. Due to nausea, pt refused STATE TROOPER providing diaphragmatic breath support throughout exercises. Speech Shelter Goals STATE TROOPER [employer] Goals: Yes Patient will exhibit safe swallow for least restrictive consistency: Progressing Other [employer] [place] Goals: Achieved Speech Short Term Goals Dysphagia: Yes Will tolerate current diet without signs of aspiration: Progressing Will participate in repeat instrumental swallow evaluation when clinically indicated: Progressing Therapist: Joyce Barron/VINH-STATE TROOPER (Pager [phone]; Voalte: [phone]) Date: 01/10/2018 K GRADER * Kary Hamm RN - 01/10/2018 4:55 AM STOCK GRADER Heart Failure Nursing Progress Note Admission Date: 12/31/2017 LOS: 10 days Admission Weight: 74.3 kg (163 lb 12.8 oz) Most recent weights (inpatient): Vitals: 01/08/18 0636 01/09/18 0516 01/10/18 0438 Weight: 74.3 kg (163 lb 12.8 oz) 74.4 kg (164 lb 0.4 oz) 75.3 kg (166 lb) Weight change from previous day: + 0.9 kg Fluid restriction ordered: no Intake/Output Summary: (Last 24 hours) Intake/Output Summary (Last 24 hours) at 01/10/18 1558 Last data filed at 01/10/18 0446 Gross per 24 hour Intake 3924 ml Output 2650 ml Net 1274 ml Is patient incontinent no Anticipated discharge date: 01/28 Discharge goals: Independent at home Daily Assessment of Patient Stated Goals: Short Term Goal Identified by patient (Short Term=during hospitalization): Pain management K GRADER * Nupur Retana RT - 01/09/2018 4:52 PM STOCK GRADER RT Adult Assessment Note NAME:Darrius Salas :1955 AGE: 62 y.o. ADMISSION DATE: 12/31/2017 DAYS ADMITTED: LOS: 9 days RT Treatment Plan: Protocol Plan: Medications Albuterol: Neb Q4h While Awake & PRN Protocol Plan: Procedures Vibrating PEP Therapy: Q4h While Awake Cough Assist: Q4h While Awake NTS: Discontinued Oxygen/Humidity: O2 to keep SpO2 > 92% Monitoring: Pulse oximetry BID & PRN Additional Comments: Impressions of the patient: Resting in bed. Feels like secretions are becoming more mobile. Intervention(s)/outcome(s): none Patient education that was completed: none Recommendations to the care team: none Vital Signs: Pulse: Pulse: 80 RR: Respirations: 16 PER MINUTE SpO2: SpO2: 96 % O2 Device: $$ O2 Device: Cannula Liter Flow: O2 Liter Flow: 2 lpm O2%: Breath Sounds: Respiratory Effort: Respiratory Effort: Non-Labored K GRADER * Akiko Barnes RN - 01/09/2018 4:37 PM STOCK GRADER Heart Failure Nursing Progress Note Admission Date: 12/31/2017 LOS: 9 days Admission Weight: 74.3 kg (163 lb 12.8 oz) Most recent weights (inpatient): Vitals: 01/07/18 0553 01/08/18 0636 01/09/18 0516 Weight: 74.1 kg (163 lb 5.8 oz) 74.3 kg (163 lb 12.8 oz) 74.4 kg (164 lb 0.4 oz ) Weight change from previous day:+0.1kg Fluid restriction ordered: None Intake/Output Summary: (Last 24 hours) Intake/Output Summary (Last 24 hours) at 01/09/18 1637 Last data filed at 01/09/18 1627 Gross per 24 hour Intake 1941 ml Output 2500 ml Net -559 ml Is patient incontinent No Anticipated discharge date: 01/28 Discharge goals: Return home Daily Assessment of Patient Stated Goals: Short Term Goal Identified by patient (Short Term=during hospitalization): Prevent fluid overload K GRADER * Marlys Marie MD - 01/09/2018 8:49 AM STOCK GRADER Physical Medicine & Rehabilitation Progress Note Today's Date: 01/09/2018 Admission Date: 12/31/2017 LOS: 9 days Insurance: Principal Problem: Debility Active Problems: CHF (congestive heart failure) (HCC) CAD (coronary artery disease) AF (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) (HCC) 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 Will continue on current medications. Maintained on 4 L by NC. Some symptomatic improvement with cough assist. Continued pain medications as PRN. Nursing has been writing down timing of pain medications. Does not feel that the nerve block was effective. Subjective Darrius Salas is a 62 y.o. male. Patient was seen in with resident physician in his room with his . No acute events reported overnight. Patient denies any current shortness of breath, nausea, vomiting, insomnia. Continued chest pain, and patient has difficulty remembering PRN medications, but the written reminders are helpful. Trying to increase cough assist and encouraged continued IS use Objective Vital Signs: Last Filed Vital Signs: 24 Hour Range BP: 127/83 (01/10 516) Temp: 36.4 C (97.5 F) (01/10 516) Pulse: 93 (01/10 516) Respirations: 20 PER MINUTE (01/10 516) SpO2: 99 % (01/10 516) O2 Delivery: Nasal Cannula (01/10 516) BP: (120-127)/(83-86) Temp: [36.2 C (97.1 F)-36.4 C (97.5 F)] Pulse: [86-97] Respirations: [18 PER MINUTE-20 PER MINUTE] SpO2: [97 %-100 %] O2 Delivery: Nasal Cannula Intensity Pain Scale (Self Report): 3 (01/09/18 0523) Vitals: 01/07/18 0553 01/08/18 0636 01/09/18 0516 Weight: 74.1 kg (163 lb 5.8 oz) 74.3 kg (163 lb 12.8 oz) 74.4 kg (164 lb 0.4 oz ) Intake/Output Summary: (Last 24 hours) Intake/Output Summary (Last 24 hours) at 01/09/18 0849 Last data filed at 01/09/18 0816 Gross per 24 hour Intake 2101 ml Output 1750 ml Net 351 ml Stool Occurrence: 1 Oral Diet Order: Regular Last Bowel Movement Date: 01/08/18 Physical Exam VS: BP 127/83 (BP Source: Arm, Left Upper) | Pulse 93 | Temp 36.4 C (97.5 F) | Ht 182.9 cm (72.01") | Wt 74.4 kg (164 lb 0.4 oz) | SpO2 99% | BMI 22.24 kg/m Gen: AOX3, NAD HEENT: NCAT Heart: RRR no MRG Lungs: diffuse wheezing (improved) and scattered rhonchi Abd: S/NT/ND/+BS Ext: No clubbing / No cyanosis / No edema / No calf pain MS: Moves extremities spontaneously Therapy Notes & Labs Reviewed. ATTESTATION I personally observed the resident performing the E/M, discussed case with resident, and concur with resident documentation of history, physical assessment and treatment plan unless otherwise noted. Staff name: Marlys Marie MD Date: 01/09/2018 K GRADER * Kary Hamm, CONSTANTIN - 01/09/2018 5:35 AM STOCK GRADER Heart Failure Nursing Progress Note Admission Date: 12/31/2017 LOS: 9 days Admission Weight: 74.3 kg (163 lb 12.8 oz) Most recent weights (inpatient): Vitals: 01/07/18 0553 01/08/18 0636 01/09/18 0516 Weight: 74.1 kg (163 lb 5.8 oz) 74.3 kg (163 lb 12.8 oz) 74.4 kg (164 lb 0.4 oz ) Weight change from previous day: + 0.1 kg Fluid restriction ordered: no Intake/Output Summary: (Last 24 hours) Intake/Output Summary (Last 24 hours) at 01/09/18 0535 Last data filed at 01/09/18 0516 Gross per 24 hour Intake 2101 ml Output 1500 ml Net 601 ml Is patient incontinent no Anticipated discharge date: 01/28 Discharge goals: Mod I Daily Assessment of Patient Stated Goals: Short Term Goal Identified by patient (Short Term=during hospitalization): Increase independence K GRADER * Akiko Barnes RN - 01/08/2018 4:16 PM STOCK GRADER Heart Failure Nursing Progress Note Admission Date: 12/31/2017 LOS: 8 days Admission Weight: 74.3 kg (163 lb 12.8 oz) Most recent weights (inpatient): Vitals: 01/06/18 0513 01/07/18 0553 01/08/18 0636 Weight: 74.5 kg (164 lb 3.9 oz) 74.1 kg (163 lb 5.8 oz) 74.3 kg (163 lb 12.8 oz ) Weight change from previous day:+0.2kg Fluid restriction ordered: N/a Intake/Output Summary: (Last 24 hours) Intake/Output Summary (Last 24 hours) at 01/08/18 1616 Last data filed at 01/08/18 0916 Gross per 24 hour Intake 1441 ml Output 675 ml Net 766 ml Is patient incontinent No Anticipated discharge date: 01/28 Discharge goals: Return home Daily Assessment of Patient Stated Goals: Short Term Goal Identified by patient (Short Term=during hospitalization): Maintain fluid balance K GRADER * Akiko Barnes, CONSTANTIN - 01/08/2018 12:04 PM STOCK GRADER Previous right chest tube site has been without drainage for several days. Will leave [facility] at this time. K GRADER * Merari Miranda - 01/08/2018 9:39 AM STOCK GRADER SPEECH-LANGUAGE PATHOLOGY REHAB SPEECH DAILY NOTE SUMMARY: Pt seen by STATE TROOPER for 30 minutes targeting dysphagia. PLAN: Continue current therapy plan FREQUENCY TODAY: 1x RECOMMENDATIONS 1. Continue regular solids and thin liquids with use of compensatory swallow strategies (small bites/sips, slow rate, head turn LEFT with solids/liquids w/ 2 effortful swallows per bolus). *If exhibiting negative pulmonary status changes, please cease PO intake. 2. Medications as tolerated by pt, likely tolerated with thin liquids. 3. Excellent oral care to reduce risk of aspirated bacteria from oral cavity(2 -3x/daily). 4. May benefit from repeat instrumental swallow evaluation before d/c. ACTIVITIES FOR THE DAY: Pt reporting significant chest pain today and attributes this to not getting each dose of his pain medications. As a result, pt laying in bed at time of visit. Only limited swallowing exercises completed as pain serving as barrier this AM; completed x10 repetitions of lingual protrusion. Observed pt swallow medications whole with thin liquids. Pt independently completing head turn left with each swallow and does not require cues from STATE TROOPER to recall this strategy. Pt exhibits intermittent cough after swallow, likely in relation to baseline cough/congestion. Pt was provided education regarding importance of ongoing pharyngeal strengthening exercises, even though he is on a regular diet. Pt verbalizes understanding. Speech [employer] [place] Goals STATE TROOPER [employer] Goals: Yes Patient will exhibit safe swallow for least restrictive consistency: Progressing Other Shelter Goals: Achieved Speech Short Term Goals Dysphagia: Yes Will tolerate current diet without signs of aspiration: Progressing Will participate in repeat instrumental swallow evaluation when clinically indicated: Progressing Therapist: Joyce Pink/VINH-STATE TROOPER (Pager [phone]; Voalte: [phone]) Date: 01/08/2018 K GRADER * Marlys Marie MD - 01/08/2018 8:40 AM STOCK GRADER Physical Medicine & Rehabilitation Progress Note Today's Date: 01/08/2018 Admission Date: 12/31/2017 LOS: 8 days Insurance: Principal Problem: Debility Active Problems: CHF (congestive heart failure) (HCC) CAD (coronary artery disease) AF (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) (HCC) jail current use of anticoagulant COPD (chronic obstructive pulmonary disease) (HCC) HTN (hypertension) HLD (hyperlipidemia) Alcohol abuse Tobacco abuse S/P ablation of 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 Pneumonia Respiratory failure, ikvxs-bq-hfvzwbo (HCC) Cytomegalovirus (CMV) viremia (HCC) Impaired mobility and activities of daily living Assessment/Plan: Current diagnoses and medications reviewed. Will continue on current medications. Maintained on 4 L by NC. Some symptomatic improvement with cough assist. Continued pain medications as PRN. Nursing has been writing down timing of pain medications. Does not feel that the nerve block was effective. There was a hold on lidoderm patches, but we can resume this q12h PRN Subjective Darrius Salas is a 62 y.o. male. Patient was seen in with resident physician in his room with his . No acute events reported overnight. Patient denies any current shortness of breath, nausea, vomiting, insomnia. Continued chest pain, and patient has difficulty remembering PRN medications. Trying to increase cough assist and encouraged continued IS use Objective Vital Signs: Last Filed Vital Signs: 24 Hour Range BP: 111/74 (01/08 326) Temp: 36.7 C (98 F) (01/08 326) Pulse: 103 (01/08 326) Respirations: 18 PER MINUTE (01/08 326) SpO2: 98 % (01/08 326) O2 Delivery: Nasal Cannula (01/08 326) BP: (111-117)/(64-75) Temp: [36.4 C (97.5 F)-36.9 C (98.5 F)] Pulse: [87-103] Respirations: [18 PER MINUTE] SpO2: [93 %-100 %] O2 Delivery: Nasal Cannula Intensity Pain Scale (Self Report): 6 (01/07/18 1931) Vitals: 01/06/18 0513 01/07/18 0553 01/08/18 0636 Weight: 74.5 kg (164 lb 3.9 oz) 74.1 kg (163 lb 5.8 oz) 74.3 kg (163 lb 12.8 oz ) Intake/Output Summary: (Last 24 hours) Intake/Output Summary (Last 24 hours) at 01/08/18 0840 Last data filed at 01/08/18 0502 Gross per 24 hour Intake 2191 ml Output 1475 ml Net 716 ml Stool Occurrence: 1 Oral Diet Order: Regular Last Bowel Movement Date: 01/07/18 Physical Exam VS: BP 111/74 (BP Source: Arm, Left Upper) | Pulse 103 | Temp 36.7 C (98 F ) | Ht 182.9 cm (72.01") | Wt 74.3 kg (163 lb 12.8 oz) | SpO2 98% | BMI 22.21 kg/m Gen: AOX3, NAD HEENT: NCAT Heart: RRR no MRG Lungs: diffuse wheezing (improved) and scattered rhonchi Abd: S/NT/ND/+BS Ext: No clubbing / No cyanosis / No edema / No calf pain MS: Moves extremities spontaneously Therapy Notes & Labs Reviewed. ATTESTATION I personally observed the resident performing the E/M, discussed case with resident, and concur with resident documentation of history, physical assessment and treatment plan unless otherwise noted. Staff name: Marlys Marie MD Date: 01/08/2018 K GRADER * Miguel Angel Armenta RN - 01/08/2018 6:37 AM STOCK GRADER Heart Failure Nursing Progress Note Admission Date: 12/31/2017 LOS: 8 days Admission Weight: 74.3 kg (163 lb 12.8 oz) Most recent weights (inpatient): Vitals: 01/06/18 0513 01/07/18 0553 01/08/18 0636 Weight: 74.5 kg (164 lb 3.9 oz) 74.1 kg (163 lb 5.8 oz) 74.3 kg (163 lb 12.8 oz ) Weight change from previous day:+0.2kg Fluid restriction ordered: NA Intake/Output Summary: (Last 24 hours) Intake/Output Summary (Last 24 hours) at 01/08/18 0637 Last data filed at 01/08/18 0502 Gross per 24 hour Intake 2191 ml Output 1475 ml Net 716 ml Is patient incontinent No Anticipated discharge date: 01/28 Discharge goals: Mod I Daily Assessment of Patient Stated Goals: Short Term Goal Identified by patient (Short Term=during hospitalization): Increase strength K GRADER * Caryn Farah MD - 01/07/2018 10:50 AM STOCK GRADER Infectious Diseases Progress Note 01/07/2018 Admission Date: 12/31/2017 LOS: 7 days ASSESSMENT 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 - Via [employer] (11/04)- peripheral blood cultures -no growth, Sputum/ endotracheal- mixed bacterial gavin, few yeast (11/08) BAL/left upper lobe >1, 000 CFU/ML- Tamar Glabrata long-standing 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, with recent RVR, CAD, CHF - s/p ablation in 2013 - HEAD START COORDINATOR xarelto, diltiazem - was cardioverted unsuccessfully at OSH, treated with amio, dig load (?) and diltiazem - history of PCI to RCA in March 2012 CMV viremia 11/29/17. Not detected on first BAL, virus detected on 12/21/17 BAL. Significant debility PLAN: 1. May not need daily phlebotomy 2. Cont PO valgancyclovir. 3. Will likely need at least 4 more weeks of antiviral therapy. Will recheck CMV in blood next week. 4. Cont cresemba+braden. 5. monitor labs for toxicity. 6. Will plan for repeat CT chest at least [address] or PRN 7. Will follow. Mr. Salas has complex disease requiring complex medical decision making for pneumonia, aspergillosis, therapeutic drug monitoring, resp failure. I reviewed the chart and interviewed and examined the patient and formulated the plan as above. Interval history: Darrius Salas is a 62 y.o. male. Patient afebrile. On 2-4L NC, RR 18. No new chagnes. +cough, SOB, chest discomfort. No f/c/ns, FERGUSON, neck pain. Working with therapy, transfers improving. ABX: Antimicrobial Start date End date levaquin 11/15 11/28 meropenem 11/19 11/22 vanc 11/20 11/22 vori 11/23-11/24 Restart 11/3012/22/17 isavuconazole 11/24 11/30 cefepime 11/2712/02/17 acyclovir 11/27-12/11/17, 12/22/17 12/24/17 Estimated Creatinine Clearance: 121.8 mL/min (A) (based on SCr of 0.39 mg/dL (L) ). Zosyn 12/10/17- 12/17/17 linezolid 12/10/17 - 12/17/17 Cresemba + braden 12/22/17 Ganciclovir 12/24/17 Medications Scheduled Meds: albuterol 0.5% (PROVENTIL; VENTOLIN) nebulizer solution 2.5 mg 2.5 mg Inhalation QID & PRN ascorbic acid (VITAMIN C) tablet 500 mg 500 mg Oral QDAY budesonide/formoterol (SYMBICORT HFA) 160/4.5 mcg inhalation 2 puff 2 puff Inhalation BID cholecalciferol (VITAMIN D-3) tablet 400 Units 400 Units Oral QDAY digoxin (LANOXIN) tablet 250 mcg 250 mcg Oral QDAY docusate (COLACE) capsule 100 mg 100 mg Oral BID fluticasone (FLONASE) nasal spray 2 spray 2 spray Each Nostril QDAY furosemide (LASIX) tablet 60 mg 60 mg Oral BID(-) guaiFENesin LA (MUCINEX) tablet 600 mg 600 mg Oral BID isavuconazonium sulfate (CRESEMBA) capsule 372 mg 372 mg Oral QDAY() [START ON 01/10/2018] lidocaine (LIDODERM) 5 % topical patch 1-2 patch 1-2 patch Topical Q24H* metoprolol tartrate (LOPRESSOR) tablet 12.5 mg 12.5 mg Oral BID micafungin (MYCAMINE) 150 mg in sodium chloride 0.9% (NS) 110 mL IVPB 150 mg Intravenous Q24H* pantoprazole DR (PROTONIX) tablet 40 mg 40 mg Oral QDAY(21) rivaroxaban (XARELTO) tablet 20 mg 20 mg Oral QDAY w/breakfast senna (SENOKOT) tablet 2 tablet 2 tablet [...] Infusions: PRN and Respiratory Meds:acetaminophen Q4H PRN, aluminum/magnesium hydroxide Q4H PRN, bisacodyl QDAY PRN, dextran 70/hypromellose Q6H PRN, melatonin QHS PRN , milk of magnesia (CONC) Q4H PRN, ondansetron Q6H PRN, oxyCODONE Q4H PRN, pancrelipase 20,000 Units/ sodium bicarbonate 650 mg(#) PRN ([employer] from Rx), phenol PRN Objective Vital Signs: Last Filed Vital Signs: 24 Hour Range BP: 114/72 (01/08 412) Temp: 36.4 C (97.6 F) (01/08 412) Pulse: 92 (01/07 913) Respirations: 18 PER MINUTE (01/07 907) SpO2: 93 % (01/07 907) O2 Delivery: Nasal Cannula (01/08 412) BP: (114-130)/(72-77) Temp: [36.4 C (97.6 F)-36.8 C (98.3 F)] Pulse: [84-98] Respirations: [17 PER MINUTE-18 PER MINUTE] SpO2: [93 %-99 %] O2 Delivery: Nasal Cannula Intensity Pain Scale (Self Report): 5 (01/07/18 09) Vitals: 01/05/18 0641 01/06/18 0513 01/07/18 0553 Weight: 74 kg (163 lb 2.3 oz) 74.5 kg (164 lb 3.9 oz) 74.1 kg (163 lb 5.8 oz) Physical Exam Gen: A&O X 3, no acute distress, appears ill HEENT: EOMI, no subconjunctival hemorrhages CV: RRR Resp: Clear bilat, air exchange poor bilaterally, +crackles Abd, soft, non tender, +BS Extremity: no edema Derm: no rash/lesions appreciated Lab Review Full labs reviewed. Recent Labs 01/07/18 0550 WBC 6.8 Radiology and other Diagnostics Review: Radiology viewed and reports reviewed I have interviewed and examined this patient today and viewed the vital signs, laboratory, microbiology and radiology. MD Caryn Marlow MD Infectious Diseases Faculty Pager: [phone] K GRADER * Marlys Marie MD - 01/07/2018 10:00 AM STOCK GRADER Physical Medicine & Rehabilitation Progress Note Today's Date: 01/07/2018 Admission Date: 12/31/2017 LOS: 7 days Insurance: Principal Problem: Debility Active Problems: CHF (congestive heart failure) (HCC) CAD (coronary artery disease) AF (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) (HCC) jail current use of anticoagulant COPD (chronic obstructive pulmonary disease) (HCC) HTN (hypertension) HLD (hyperlipidemia) Alcohol abuse Tobacco abuse S/P ablation of 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 Pneumonia Respiratory failure, xpkrt-[id number] (HCC) Cytomegalovirus (CMV) viremia (HCC) Impaired mobility and activities of daily living Assessment/Plan: Current diagnoses and medications reviewed. Will continue on current medications. Maintained on 4 L by NH. Some symptomatic improvement with cough assist. Continued pain medications as PRN. Nursing has been writing down timing of pain medications. Does not feel that the nerve block was effective. Subjective Darrius Salas is a 62 y.o. male. Patient was seen in with resident physician in his room with his . No acute events reported overnight. Patient denies any current shortness of breath, nausea, vomiting, insomnia. Continued chest pain, and patient has difficulty remembering PRN medications. Trying to increase cough assist and encouraged continued IS use Objective Vital Signs: Last Filed Vital Signs: 24 Hour Range BP: 114/72 (01/08 412) Temp: 36.4 C (97.6 F) (01/08 412) Pulse: 92 (01/07 913) Respirations: 18 PER MINUTE (01/07 907) SpO2: 93 % (01/07 907) O2 Delivery: Nasal Cannula (01/08 412) BP: (114-130)/(72-77) Temp: [36.4 C (97.6 F)-36.8 C (98.3 F)] Pulse: [84-98] Respirations: [17 PER MINUTE-18 PER MINUTE] SpO2: [93 %-99 %] O2 Delivery: Nasal Cannula Intensity Pain Scale (Self Report): 5 (01/07/18928) Vitals: 01/05/18 0641 01/06/18 0513 01/07/18 0553 Weight: 74 kg (163 lb 2.3 oz) 74.5 kg (164 lb 3.9 oz) 74.1 kg (163 lb 5.8 oz) Intake/Output Summary: (Last 24 hours) Intake/Output Summary (Last 24 hours) at 01/07/18 1000 Last data filed at 01/07/18 0900 Gross per 24 hour Intake 1443 ml Output 1375 ml Net 68 ml Stool Occurrence: 1 Oral Diet Order: Regular Last Bowel Movement Date: 01/07/18 Physical Exam VS: BP 114/72 (BP Source: Arm, Left Upper) | Pulse 92 | Temp 36.4 C (97.6 F) | Ht 182.9 cm (72.01") | Wt 74.1 kg (163 lb 5.8 oz) | SpO2 93% | BMI 22.15 kg/m Gen: AOX3, NAD HEENT: NCAT Heart: RRR no MRG Lungs: diffuse wheezing (improved) and scattered rhonchi Abd: S/NT/ND/+BS Ext: No clubbing / No cyanosis / No edema / No calf pain MS: Moves extremities spontaneously Therapy Notes & Labs Reviewed. ATTESTATION I personally observed the resident performing the E/M, discussed case with resident, and concur with resident documentation of history, physical assessment and treatment plan unless otherwise noted. Staff name: Marlys Marie MD Date: 01/07/2018 K GRADER * Lisa Davis - 01/07/2018 9:59 AM STOCK GRADER SPEECH-LANGUAGE PATHOLOGY REHAB SPEECH DAILY NOTE SUMMARY: Pt seen by STATE TROOPER for 30 minutes targeting dysphagia, pulmonary hygiene. PLAN: Continue current therapy plan FREQUENCY TODAY: 1x RECOMMENDATIONS 1. Continue regular solids and thin liquids with use of compensatory swallow strategies (small bites/sips, slow rate, head turn LEFT with solids/liquids w/ 2 effortful swallows per bolus). *If exhibiting negative pulmonary status changes, please cease PO intake. 2. Medications as tolerated by pt, likely tolerated with thin liquids. 3. Excellent oral care to reduce risk of aspirated bacteria from oral cavity(2 -3x/daily). ACTIVITIES FOR THE DAY: Reviewed diaphragmatic breathing implemented in previous STATE TROOPER sessions. Pt verbalized understanding. Pt reports he hasn't been completing swallow exercises in free time due to other rehab factors. Reviewed importance of exercises, pt verbalized understanding. Pt reports completing swallow strategies with PO intake. Pt then completed x10 repetitions of lingual protrusion, hue, and effortful swallows. Pt reports increase in productive coughing. No recent chest imaging. Speech [employer] [place] Goals STATE TROOPER Shelter Goals: Yes Patient will exhibit safe swallow for least restrictive consistency: Progressing Other [employer] [place] Goals: Achieved Speech Short Term Goals Dysphagia: Yes Will tolerate current diet without signs of aspiration: Progressing Will participate in repeat instrumental swallow evaluation when clinically indicated: Progressing Therapist: Lisa TREVIÑO/STATE TROOPER Voalte: [id number] Weekend [employer] Clerk Pager: [phone] Date: 01/07/2018 K GRADER * Miguel Angel Armenta RN - 01/07/2018 5:54 AM STOCK GRADER Heart Failure Nursing Progress Note Admission Date: 12/31/2017 LOS: 7 days Admission Weight: 74.3 kg (163 lb 12.8 oz) Most recent weights (inpatient): Vitals: 01/05/18 0641 01/06/18 0513 01/07/18 0553 Weight: 74 kg (163 lb 2.3 oz) 74.5 kg (164 lb 3.9 oz) 74.1 kg (163 lb 5.8 oz) Weight change from previous day:-0.4kg Fluid restriction ordered: NA Intake/Output Summary: (Last 24 hours) Intake/Output Summary (Last 24 hours) at 01/07/18 0554 Last data filed at 01/07/18 0500 Gross per 24 hour Intake 2563 ml Output 1275 ml Net 1288 ml Is patient incontinent No Anticipated discharge date: 01/28 Discharge goals: Mod I Daily Assessment of Patient Stated Goals: Short Term Goal Identified by patient (Short Term=during hospitalization): Increase independence with ADL's K GRADER * Pastora Romero - 01/06/2018 4:18 PM STOCK GRADER Heart Failure Nursing Progress Note Admission Date: 12/31/2017 LOS: 6 days Admission Weight: 74.3 kg (163 lb 12.8 oz) Most recent weights (inpatient): Vitals: 01/04/18 0554 01/05/18 0641 01/06/18 0513 Weight: 74.2 kg (163 lb 9.3 oz) 74 kg (163 lb 2.3 oz) 74.5 kg (164 lb 3.9 oz) Weight change from previous day:+0.5kg Fluid restriction ordered: N/A Intake/Output Summary: (Last 24 hours) Intake/Output Summary (Last 24 hours) at 01/06/18 1618 Last data filed at 01/06/18 0903 Gross per 24 hour Intake 2698 ml Output 1050 ml Net 1648 ml Is patient incontinent No Anticipated discharge date: 01/28 Discharge goals: Mod-I Daily Assessment of Patient Stated Goals: Short Term Goal Identified by patient (Short Term=during hospitalization): K GRADER * Claudia De La Paz, RT - 01/06/2018 9:45 AM STOCK GRADER RT Adult Assessment Note NAME:Darrius Salas :1955 AGE: 62 y.o. ADMISSION DATE: 12/31/2017 DAYS ADMITTED: LOS: 6 days RT Treatment Plan: Protocol Plan: Medications Albuterol: Neb Q4h While Awake & PRN Protocol Plan: Procedures Vibrating PEP Therapy: Q4h While Awake Cough Assist: Q4h While Awake NTS: PRN Oxygen/Humidity: O2 to keep SpO2 > 92% Monitoring: Pulse oximetry BID & PRN Additional Comments: Impressions of the patient: a/o Intervention(s)/outcome(s): none Patient education that was completed: none Recommendations to the care team: none Vital Signs: Pulse: Pulse: 94 RR: SpO2: O2 Device: $$ O2 Device: Cannula Liter Flow: O2 Liter Flow: 4 lpm O2%: Breath Sounds: Respiratory Effort: K GRADER * Marlys Marie MD - 01/06/2018 7:34 AM STOCK GRADER Physical Medicine & Rehabilitation Progress Note Today's Date: 01/06/2018 Admission Date: 12/31/2017 LOS: 6 days Insurance: Principal Problem: Debility Active Problems: CHF (congestive heart failure) (HCC) CAD (coronary artery disease) AF (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) (HCC) jail current use of anticoagulant COPD (chronic obstructive pulmonary disease) (HCC) HTN (hypertension) HLD (hyperlipidemia) Alcohol abuse Tobacco abuse S/P ablation of 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 Pneumonia Respiratory failure, axguq-qg-yhfakur (HCC) Cytomegalovirus (CMV) viremia (HCC) Impaired mobility and activities of daily living Assessment/Plan: Current diagnoses and medications reviewed. Will continue on current medications. Maintained on 4 L by NC. Some symptomatic improvement with cough assist. Continued pain medications as PRN. Nursing has been writing down timing of pain medications Subjective Darrius Salas is a 62 y.o. male. Patient was seen in with resident physician. No acute events reported overnight. Patient denies any current shortness of breath, nausea, vomiting, insomnia. Continued chest pain, and patient has difficulty remembering PRN medications Objective Vital Signs: Last Filed Vital Signs: 24 Hour Range BP: 119/76 (01/06 330) Temp: 36.3 C (97.4 F) (01/06 330) Pulse: 90 (01/06 330) Respirations: 18 PER MINUTE (01/06 330) SpO2: 95 % (01/06 330) O2 Delivery: Nasal Cannula (01/06 330) SpO2 Pulse: 107 (01/05 1300) BP: (116-144)/(65-88) Temp: [36.3 C (97.3 F)-36.3 C (97.4 F)] Pulse: [90-109] Respirations: [18 PER MINUTE-28 PER MINUTE] SpO2: [90 %-97 %] O2 Delivery: Nasal Cannula Intensity Pain Scale (Self Report): 6 (01/06/18 0331) Vitals: 01/04/18 0554 01/05/18 0641 01/06/18 0513 Weight: 74.2 kg (163 lb 9.3 oz) 74 kg (163 lb 2.3 oz) 74.5 kg (164 lb 3.9 oz) Intake/Output Summary: (Last 24 hours) Intake/Output Summary (Last 24 hours) at 01/06/18 0734 Last data filed at 01/06/18 0558 Gross per 24 hour Intake 2178 ml Output 1150 ml Net 1028 ml Stool Occurrence: 1 Oral Diet Order: Regular Last Bowel Movement Date: 01/05/18 Physical Exam VS: BP 119/76 (BP Source: Arm, Left Upper) | Pulse 90 | Temp 36.3 C (97.4 F) | Ht 182.9 cm (72.01") | Wt 74.5 kg (164 lb 3.9 oz) | SpO2 95% | BMI 22.27 kg/m Gen: AOX3, NAD HEENT: NCAT Heart: RRR no MRG Lungs: diffuse wheezing and scattered rhonchi Abd: S/NT/ND/+BS Ext: No clubbing / No cyanosis / No edema / No calf pain MS: Moves extremities spontaneously Therapy Notes & Labs Reviewed. ATTESTATION I personally observed the resident performing the E/M, discussed case with resident, and concur with resident documentation of history, physical assessment and treatment plan unless otherwise noted. Staff name: Marlys Marie MD Date: 01/06/2018 K GRADER * Oralia Barton - 01/06/2018 5:58 AM STOCK GRADER Heart Failure Nursing Progress Note Admission Date: 12/31/2017 LOS: 6 days Admission Weight: 74.3 kg (163 lb 12.8 oz) Most recent weights (inpatient): Vitals: 01/04/18 0554 01/05/18 0641 01/06/18 0513 Weight: 74.2 kg (163 lb 9.3 oz) 74 kg (163 lb 2.3 oz) 74.5 kg (164 lb 3.9 oz) Weight change from previous day: increase of 0.5 kg Fluid restriction ordered: none Intake/Output Summary: (Last 24 hours) Intake/Output Summary (Last 24 hours) at 01/06/18 0558 Last data filed at 01/06/18 0558 Gross per 24 hour Intake 2923 ml Output 1500 ml Net 1423 ml Is patient incontinent no Anticipated discharge date: 01/28 Discharge goals: go home mod I Daily Assessment of Patient Stated Goals: Short Term Goal Identified by patient (Short Term=during hospitalization): "eat more" K GRADER * Pastora Romero - 01/05/2018 6:22 PM STOCK GRADER Heart Failure Nursing Progress Note Admission Date: 12/31/2017 LOS: 5 days Admission Weight: 74.3 kg (163 lb 12.8 oz) Most recent weights (inpatient): Vitals: 01/03/18 0527 01/04/18 0554 01/05/18 0641 Weight: 74.9 kg (165 lb 3.2 oz) 74.2 kg (163 lb 9.3 oz) 74 kg (163 lb 2.3 oz) Weight change from previous day:-0.2kg Fluid restriction ordered: N/A Intake/Output Summary: (Last 24 hours) Intake/Output Summary (Last 24 hours) at 01/05/18 1823 Last data filed at 01/05/18 1430 Gross per 24 hour Intake 2010 ml Output 2475 ml Net -465 ml Is patient incontinent No Anticipated discharge date:TBD Discharge goals: Mod-I Daily Assessment of Patient Stated Goals: Short Term Goal Identified by patient (Short Term=during hospitalization): K GRADER * Caryn Farah MD - 01/05/2018 1:14 PM STOCK GRADER Infectious Diseases Progress Note 01/05/2018 Admission Date: 12/31/2017 LOS: 5 days ASSESSMENT 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 - Via [employer] (T/A) (11/04)- peripheral blood cultures -no growth, Sputum/ endotracheal- mixed bacterial gavin, few yeast (11/08) BAL/left upper lobe >1, 000 CFU/ML- Tamar Glabrata long-standing 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, with recent RVR, CAD, CHF - s/p ablation in 2013 - HEAD START COORDINATOR xarelto, diltiazem - was cardioverted unsuccessfully at OSH, treated with amio, dig load (?) and diltiazem - history of PCI to RCA in March 2012 CMV viremia 11/29/17. Not detected on first BAL, virus detected on 12/21/17 BAL. Significant debility PLAN: 1. May not need daily phlebotomy 2. Cont PO valgancyclovir. 3. Will likely need at least 4 more weeks of antiviral therapy. Will recheck CMV in blood next week. 4. Cont cresemba+braden. 5. monitor labs for toxicity. 6. Will plan for repeat CT chest at least [address] or PRN 7. Will follow. Mr. Salas has complex disease requiring complex medical decision making for pneumonia, aspergillosis, therapeutic drug monitoring, resp failure. I reviewed the chart and interviewed and examined the patient and formulated the plan as above. Interval history: Darrius Salas is a 62 y.o. male. Patient afebrile. Had peripheral nerve blocks in his chest today. On 2-4L NC. No new chagnes. +cough, SOB, chest discomfort. No f/c/ns, FERGUSON, neck pain. ABX: Antimicrobial Start date End date levaquin 11/15 11/28 meropenem 11/19 11/22 vanc 11/20 11/22 vori 11/23-11/24 Restart 11/3012/22/17 isavuconazole 11/24 11/30 cefepime 11/2712/02/17 acyclovir 11/27-12/11/17, 12/22/17 12/24/17 Estimated Creatinine Clearance: 121.8 mL/min (A) (based on SCr of 0.39 mg/dL (L) ). Zosyn 12/10/17- 12/17/17 linezolid 12/10/17 - 12/17/17 Cresemba + braden 12/22/17 Ganciclovir 12/24/17 Medications Scheduled Meds: albuterol 0.5% (PROVENTIL; VENTOLIN) nebulizer solution 2.5 mg 2.5 mg Inhalation QID & PRN ascorbic acid (VITAMIN C) tablet 500 mg 500 mg Oral QDAY budesonide/formoterol (SYMBICORT HFA) 160/4.5 mcg inhalation 2 puff 2 puff Inhalation BID cholecalciferol (VITAMIN D-3) tablet 400 Units 400 Units Oral QDAY digoxin (LANOXIN) tablet 250 mcg 250 mcg Oral QDAY docusate (COLACE) capsule 100 mg 100 mg Oral BID fluticasone (FLONASE) nasal spray 2 spray 2 spray Each Nostril QDAY furosemide (LASIX) tablet 60 mg 60 mg Oral BID(9-17) guaiFENesin LA (MUCINEX) tablet 600 mg 600 mg Oral BID isavuconazonium sulfate (CRESEMBA) capsule 372 mg 372 mg Oral QDAY(21) lidocaine (LIDODERM) 5 % topical patch 1-2 patch 1-2 patch Topical Q24H* metoprolol tartrate (LOPRESSOR) tablet 12.5 mg 12.5 mg Oral BID micafungin (MYCAMINE) 150 mg in sodium chloride 0.9% (NS) 110 mL IVPB 150 mg Intravenous Q24H* pantoprazole DR (PROTONIX) tablet 40 mg 40 mg Oral QDAY() rivaroxaban (XARELTO) tablet 20 mg 20 mg Oral QDAY w/breakfast senna (SENOKOT) tablet 2 tablet 2 tablet [...] tablet 1 tablet Oral QDAY Continuous Infusions: lactated ringers infusion PRN and Respiratory Meds:acetaminophen Q4H PRN, aluminum/magnesium hydroxide Q4H PRN, bisacodyl QDAY PRN, dextran 70/hypromellose Q6H PRN, melatonin QHS PRN , milk of magnesia (CONC) Q4H PRN, ondansetron Q6H PRN, oxyCODONE Q4H PRN, oxyCODONE QHS PRN, pancrelipase 20,000 Units/ sodium bicarbonate 650 mg(#) PRN ( [employer] Clerk from Rx), phenol PRN Objective Vital Signs: Last Filed Vital Signs: 24 Hour Range BP: 117/80 (01/05 1300) Temp: 36.4 C (97.5 F) (01/05 438) Pulse: 108 (01/05 1300) Respirations: 21 PER MINUTE (01/05 1300) SpO2: 90 % (01/05 1300) O2 Delivery: Nasal Cannula (01/05 438) SpO2 Pulse: 107 (01/05 1300) BP: (105-144)/(64-88) Temp: [36.4 C (97.5 F)-36.6 C (97.9 F)] Pulse: [90-109] Respirations: [18 PER MINUTE-28 PER MINUTE] SpO2: [90 %-100 %] O2 Delivery: Nasal Cannula Intensity Pain Scale (Self Report): 5 (01/05/18 0840) Vitals: 01/03/18 0527 01/04/18 0554 01/05/18 0641 Weight: 74.9 kg (165 lb 3.2 oz) 74.2 kg (163 lb 9.3 oz) 74 kg (163 lb 2.3 oz) Physical Exam Gen: A&O X 3, no acute distress HEENT: EOMI, no subconjunctival hemorrhages CV: RRR, no murmurs, no gallops Resp: Clear bilat, air exchange good, no wheeze Abd, soft, non tender, +BS Extremity: no edema Derm: no rash/lesions appreciated Lab Review Full labs reviewed. Recent Labs 01/05/18 0545 WBC 7.7 Radiology and other Diagnostics Review: Radiology viewed and reports reviewed I have interviewed and examined this patient today and viewed the vital signs, laboratory, microbiology and radiology. MD Caryn Marlow MD Infectious Diseases Faculty Pager: [phone] K GRADER * Beatriz Ortiz MD - 01/05/2018 12:02 PM STOCK GRADER ATTESTATION I personally performed the gaytan portions of the E/M visit, discussed case with resident and concur with resident documentation of history, physical exam, assessment, and treatment plan unless otherwise noted. Anesthesia for nerve block today. Per d/w rehab team at conference, patient making progress towards goal of min A. Tentative discharge date 01/28. Progress this week, total A LB dressing and toielting, assist x2 transfers but improving. Recommending HH therapies at time of discharge from rehab. Staff name: Beatriz Ortiz MD Date: 01/05/2018 Physical Medicine & Rehabilitation Progress Note Today's Date: 01/05/2018 Admission Date: 12/31/2017 LOS: 5 days Insurance: Medicare Principal Problem: Debility Active Problems: CHF (congestive heart failure) ([facility]) CAD (coronary artery disease) AF (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) ([facility]) jail current use of anticoagulant COPD (chronic obstructive pulmonary disease) (HCC) HTN (hypertension) HLD (hyperlipidemia) Alcohol abuse Tobacco abuse S/P ablation of 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 Pneumonia Respiratory failure, ddlkg-rk-pwgwgpl (HCC) Cytomegalovirus (CMV) viremia ([facility]) Impaired mobility and activities of daily living Assessment/Plan: Mr. Darrius Salas is a 62 [...] placement, thoracentesis s/p chest tube placement. He now presents to IRF with debility warranting PT/OT/STATE TROOPER therapies. Rehabilitation Plan Rehabilitation: Patient will continue with comprehensive therapies including physical therapy, occupational therapy, speech & language pathology, specialized rehab nursing, neuropsychology and physiatry oversight. Goals: SBA RW , WC Tentative discharge date: 02/07/18 Recommended therapy after discharge: Home health PT/OT/STATE TROOPER Recommended equipment: TBD Most likely RW, tub transfer bench, possible manual wc Daily Functional Update: Transfers Device Sit to Stand Transfer: Assistive Device: Hand Hold Assist (01/05/2018 8:45 AM) No Data Recorded Gait Device Assist Required Distance Gait: Assistive Device: Hand Hold Assist (12/30/2017 10:00 AM) No Data Recorded No Data Recorded Standing Balance Static Dynamic No Data Recorded No Data Recorded Toileting Assist Required Equipment Toilet Transfer Toileting Assist: Total Assist (01/05/2018 8:45 AM) Toileting Equipment: Commode - drop arm padded (01/05/2018 8:45 AM) No Data Recorded Dressing Lower Body LE Dressing Assist: Total Assist (01/04/2018 11:30 AM) Debility secondary to acute on chronic hypoxic respiratory failure Legionella pneumonia (PNA), invasive necrotizing aspergillosis PNA, BAL with positive HSV & CMV PNA Decreased pulmonary reserve Generalized weakness Decreased endurance Impaired mobility and ADLs - Baseline O2 2-3 L QHS, currently tolerating 2L NC - s/p x3 intubation/extubations - s/p PEA arrest (extubated 11/24) - s/p treatment with linezolid, zosyn - Immunology followed across [facility] for multiple opportunistic infxs > ID consulted for continuation of care > CMV quant-blood every Wednesday, CMP every Wednesday > Continue antibiotics including micafungin IV, Cresemba 372mg QD , valganciclovir 900mg BID > Can likely stop micafungin at discharge, will continue at least 3 months cresemba, 4-6wks valganciclovir > Repeat CT chest [address] or PRN > Continue aggressive pulmonary hygiene with Aerobika and IS, cough assist > Consult PT/OT > Anesthesia pain service for pain block to assist with costochondral / sternal pain Right sided pleural effusion COPD - on 2-3L QHS at baseline - s/p RR 12/16 for incr 02 requirement, thoracentesis 1800cc exudative fluid - s/p chest tube removal 12/29 > Continue albuterol nebs Q4H PRN, atrovent nebs Q4H PRN > Continue HEAD START COORDINATOR Symbicort BID, flonase BID, Spiriva daily > Continue lasix 60mg BID, guaifenesin LA 600mg BID > Regular dressing over pleurX site and monitor for fluid output Paroxysmal Atrial Fibrillation with RVR CAD s/p PCI 03/2012 Chronic HFpEF HTN HLD - s/p ablation 2013 - Failed cardioversion at OSH - Previously on amiodarone, d/c'd due to LFTs > Continue lasix 60mg BID, digoxin 250mcg QD, metoprolol 12.5mg BID, and xarelto 20mg QD > Holding HEAD START COORDINATOR Coreg, Cardizem, Vasotect, Lipitor > Continue daily weights, weight stable today Elevated Alk phos/LFTs, improving - GI consulted across [facility] - 12/20/17: CT A/P w/ contrast without inflammatory mass, ascites, or bowel obstruction. However, fusiform infrarenal abdominal aortic aneurysm measuring up to 4.9 cm in maximum diameter. > Continue nutritional support with calorie count > Consult hepatology if any issues arise > CMP every Wednesday, alk phos continues to improve, AST/ALT WNL > F/u in hepatology clinic on discharge Dysphagia- improved to resolved > Continue condensed nocturnal feeds and calorie count, still not eating enough to come off night TF, condense as able > Continue regular solids/thin liquids > Consult dietitian and STATE TROOPER (STATE TROOPER also working on cough therapy) Macrocytic anemia, stable, CTM with CBC Sleep disturbance: melatonin 5mg QHS PRN GERD: PPI Pain Management: Tylenol PRN and lidocaine patches, oxycodone 5mg Q3Hr Skin: There is / are 1 pressure sore(s) including coccyx/buttocks. Continue vit a & d ointment Bowel: continent of bowel Bladder: continent of bladder, passed BVIs x3 until <125ml and ISC for >300ml Nutrition: Current diet: regular as patient is on calorie count Feeding tube: Nocturnal compressed feeds of Nutren 2.0 at 80ml/hr x 8hrs, continue vit C, Vit D, thiamine, multiV Calorie count in place Mental Health: consult neuropsychology to provide support / counseling DVT Prophylaxis: Bkrelto Code status: DNAR-FI (no CPR or intubation) Nela Santoro D.O.,M.B.A. Physical Medicine and Rehabilitation, PGY-2 Pager [phone] Subjective Darrius Salas is a 62 y.o. M seen in his room this morning. Reports that he is breathing better but feels congested. Encouraged flonase. He is already on mucinex. Anesthesia pain agreeable to block today. Monitor for improvement in respiratory status over weekend. Objective Vital Signs: Last Filed Vital Signs: 24 Hour Range BP: 116/77 (01/05 845) Temp: 36.4 C (97.5 F) (01/05 438) Pulse: 95 (01/05 845) Respirations: 19 PER MINUTE (01/05 438) SpO2: 92 % (01/05 438) O2 Delivery: Nasal Cannula (01/05 438) BP: (105-116)/(64-77) Temp: [36.4 C (97.5 F)-36.6 C (97.9 F)] Pulse: [90-95] Respirations: [18 PER MINUTE-19 PER MINUTE] SpO2: [92 %-100 %] O2 Delivery: Nasal Cannula Intensity Pain Scale (Self Report): 5 (01/05/18 0840) Vitals: 01/03/18 0527 01/04/18 0554 01/05/18 0641 Weight: 74.9 kg (165 lb 3.2 oz) 74.2 kg (163 lb 9.3 oz) 74 kg (163 lb 2.3 oz) Intake/Output Summary: (Last 24 hours) Intake/Output Summary (Last 24 hours) at 01/05/18 1202 Last data filed at 01/05/18 0840 Gross per 24 hour Intake 2330 ml Output 2075 ml Net 255 ml Stool Occurrence: 1 Oral Diet Order: Regular Last Bowel Movement Date: 01/04/18 Lab: Results for orders placed or performed during the hospital encounter of (from the past 24 hour(s)) CBC CELLULAR THERAPEUTICS Collection Time: 01/05/18 5:45 AM # # Low-High White Blood Cells 7.7 4.5 - 11.0 K/UL RBC 2.93 (L) 4.4 - 5.5 M/UL Hemoglobin 10.3 (L) 13.5 - 16.5 GM/DL Hematocrit 31.4 (L) 40 - 50 % MCV 107.0 (H) 80 - 100 FL MCH 35.0 (H) 26 - 34 PG MCHC 32.7 32.0 - 36.0 G/DL RDW 21.2 (H) 11 - 15 % Platelet Count 394 150 - 400 K/UL MPV 7.8 7 - 11 FL BASIC METABOLIC PANEL CELLULAR THERAPEUTICS Collection Time: 01/05/18 5:45 AM # # Low-High Sodium 135 (L) 137 - 147 MMOL/L Potassium 3.8 3.5 - 5.1 MMOL/L Chloride 95 (L) 98 - 110 MMOL/L CO2 36 (H) 21 - 30 MMOL/L Anion Gap 4 3 - 12 Glucose 99 70 - 100 MG/DL Blood Urea Nitrogen 14 7 - 25 MG/DL Creatinine 0.46 0.4 - 1.24 MG/DL Calcium 8.8 8.5 - 10.6 MG/DL eGFR Non >60 >60 mL/min eGFR >60 >60 mL/min Physical Exam VS: BP 116/77 | Pulse 95 | Temp 36.4 C (97.5 F) | Ht 182.9 cm (72.01") | Wt 74 kg (163 lb 2.3 oz) Comment: wt with white blanket | SpO2 92% | BMI 22.12 kg/m Gen: Alert & Conversant, No Acute Distress HEENT: Normocephalic, atraumatic, sclera anicteric, conjunctiva not injected, congestion, NC in place 4L Neck: Supple, no elevated JVP, chest tube site covered with bandages, no drainage noted Heart: Regular Rate & Rhythm, No Murmur Lungs: Good inspiratory effort , upper airway sounds consistent with secretions , lower rhonchi b/l Abdomen: Soft, non-tender, non-distended, PEG in place Skin: Warm, dry Ext: No edema or erythema noted in b/l lower limbs MS: Proximal muscle weakness stable. Therapy Notes & Labs Reviewed. K GRADER * Patrica Zapien - 01/05/2018 10:53 AM STOCK GRADER CLINICAL NUTRITION Clinical Nutrition Note NAME:Darrius Salas :1955 AGE: 62 y.o. ADMISSION DATE: 12/31/2017 DAYS ADMITTED: LOS: 5 days Nutrition Assessment of Patient: BMI Categories Adult: Acceptable: 18.5-24.9 (BMI 22.18) Unintentional Weight Loss: (-5.1kg from reported UBW(6.5%) 2-3mo) Malnutrition Assessment: Does not meet criteria Estimated Calorie Needs: 5534-5752 (25-30 kcals/kg wt 74.3kg) Estimated Protein Needs: 89-104g (1.2-1.4g/kg wt 74.3kg) Oral Diet Order: Regular Current EN Order: Nutren 2.0 at 55ml/hr x 12hrs to provide pt with 1320 kcal, 55 gm protein, and 455 ml free fluid. Recommendation: REC further condensing TF in effort to further stimulate patient's appetite; Nutren 2.0 @80ml/hr x8hrs nocturnally (i.e. 2040-6744) to provide 1280 kcals (60 % est kcal needs) and 53g protein (~52% est protein needs). Offer/encourage Boost Plus with carnation instant breakfast pack mixed into it (pt likes all flavors) between meals to assist in increasing PO kcals/ protein in effort of weaning TF. Patrica Zapien RD, LD *[id number] K GRADER * Leslie Flores - 01/05/2018 7:34 AM STOCK GRADER SPEECH-LANGUAGE PATHOLOGY REHAB SPEECH DAILY NOTE SUMMARY: Pt seen by STATE TROOPER for 30 minutes targeting dysphagia, pulmonary hygiene. PLAN: Continue current therapy plan FREQUENCY TODAY: 1x RECOMMENDATIONS 1. Continue regular solids and thin liquids with use of compensatory swallow strategies (small bites/sips, slow rate, head turn LEFT with solids/liquids w/ 2 effortful swallows per bolus). *If exhibiting negative pulmonary status changes, please cease PO intake. 2. Medications as tolerated by pt, likely tolerated with thin liquids. 3. Excellent oral care to reduce risk of aspirated bacteria from oral cavity(2 -3x/daily). ACTIVITIES FOR THE DAY: Pt with AM meal of regular/thin textures. Pt demonstrated functional oral phase of swallow. Timely initiation of pharyngeal swallow with mild to moderately reduced hyolaryngeal excursion. No overt s/sx of aspiration/penetration noted directly in relation to PO however pt demonstrating spontaneous throat clear throughout session. Pt required minimal to moderate cues to consistently utilize multiple swallows and head turn to left. Expiratory muscle strength training exercises initiated with pt; pt completed x6 repetitions at [id number] given moderate verbal cues. Pt reporting pain at level of sternum with task terminated. Pt's oxygen variable throughout session between 76 and 88%; STATE TROOPER provided verbal cues for deep breaths in through nose and out through mouth as well as "breathe into my hands" to promote diaphragmatic breath. STATE TROOPER provided bilateral pressure to pt's diaphragm for cough assist x3 in which pt expectorated moderate, thick, green/yellow secretions Speech Shelter Goals STATE TROOPER [employer] [place] Goals: Yes Patient will exhibit safe swallow for least restrictive consistency: Progressing Other Shelter Goals: Achieved Speech Short Term Goals Dysphagia: Yes Will tolerate current diet without signs of aspiration: Progressing Will participate in repeat instrumental swallow evaluation when clinically indicated: Progressing Therapist: Leslie Flores MA, CCC-STATE TROOPER Voalte: [id number] Date: 01/05/2018 K GRADER * Oralia Barton - 01/05/2018 6:57 AM STOCK GRADER I have reviewed the notes, assessment, and/or procedures performed by Minna Harris RN and concur with her/his documentation unless otherwise noted. K GRADER * Minna Harris RN - 01/05/2018 6:54 AM STOCK GRADER Heart Failure Nursing Progress Note Admission Date: 12/31/2017 LOS: 5 days Admission Weight: 74.3 kg (163 lb 12.8 oz) Most recent weights (inpatient): Vitals: 01/03/18 0527 01/04/18 0554 01/05/18 0641 Weight: 74.9 kg (165 lb 3.2 oz) 74.2 kg (163 lb 9.3 oz) 74 kg (163 lb 2.3 oz) Weight change from previous day:-0.2kg Fluid restriction ordered: NA Intake/Output Summary: (Last 24 hours) Intake/Output Summary (Last 24 hours) at 01/05/18 0654 Last data filed at 01/05/18 0641 Gross per 24 hour Intake 2762 ml Output 2075 ml Net 687 ml Is patient incontinent No Anticipated discharge date: TBD Discharge goals: Mod-I Daily Assessment of Patient Stated Goals: Short Term Goal Identified by patient (Short Term=during hospitalization): Pain management K GRADER * Vanessa Camp APRN-TINO - 01/04/2018 9:05 PM STOCK GRADER Pulmonary Progress Note Name: Darrius Salas Today's Date: 01/04/2018 Admission Date: 12/31/2017 LOS: 4 days Impression: 1. COPD with emphysematous blebs -tobacco use 0.5 - 2.5 ppd x 40 years -> cessation since recent admission -on Symbicort, Spiriva, albuterol 2. Acute on chronic hypoxic respiratory failure -baseline O2=2-3 L at night -initially transferred to [facility] in late October for worsening acute on chronic respiratory failure and progression of infectious pneumonitis d/t Legionella -> required ventilatory support -BAL Cx (+) Aspergillus, Tamar Glabarta, HSV, CMV -s/p intubation x 3 3. Right Pleural Effusion, loculated (improved; drain removed) -thoracentesis 12/16 -> removed 1800 ml exudative fluid -on Lasix 60 mg BID 4. Recent Septic Shock with polymicrobial Pneumonia - Legionella, C. Glabrata, Necrotizing Aspergillus 5. s/p PEA Arrest -now with multiple anterior rib fractures, paradoxical movement of the anteior chest wall, and sternal chest pain -> limits airway clearance 6. Atrial Fibrillation - s/p ablation in 2013 - HEAD START COORDINATOR xarelto, diltiazem - was cardioverted unsuccessfully at OSH, treated with amio, dig load (?) and diltiazem - history of PCI to RCA in March 2012 7. Severe Musculoskeletal Disability and Deconditioning -Ongoing active participation in rehab Recommendations: - Continue inhaler regimen with Symbicort, Spiriva, and albuterol - Continue abx per ID - Recommend consulting Anesthesia pain service to determine whether they could do some sort of nerve block at site of costochondral pain - Aggressive pulmonary hygiene with OOB, IS, Acapella, cough assist - Encouraged pt to continue to participate in rehab - Continue tobacco cessation - Will add pantoprazole 40 mg QD (ordered) for GERD symptoms We will continue to follow. Above plan discussed with attending physician, Dr. Koehler. Vanessa Camp APRN-BALLISTICS TESTER Pager [phone] Subjective Patient reports continuing to have cough productive of clear sputum. When he has a coughing spell, he has intense pain at site of chest compressions, which induces nausea (no emesis). He has also noted increased belching symptoms. He has previously been treated for reflux. Review of Systems Constitutional: Positive for malaise/fatigue. Negative for chills and fever. Respiratory: Positive for cough, sputum production and shortness of breath. Negative for hemoptysis. Cardiovascular: Positive for chest pain and leg swelling. Gastrointestinal: Positive for constipation, heartburn and nausea. Negative for diarrhea and vomiting. Musculoskeletal: Negative for myalgias. Neurological: Negative for dizziness and headaches. All other systems reviewed and are negative. Objective Vital Signs: Last Filed Vital Signs: 24 Hour Range BP: 111/66 (01/04 1810) Temp: 36.6 C (97.9 F) (01/04 1810) Pulse: 90 (01/04 1810) Respirations: 18 PER MINUTE (01/04 1810) SpO2: 100 % (01/04 1810) O2 Delivery: Nasal Cannula (01/04 1810) BP: (102-129)/(66-76) Temp: [36.3 C (97.3 F)-36.7 C (98.1 F)] Pulse: [83-100] Respirations: [16 PER MINUTE-18 PER MINUTE] SpO2: [94 %-100 %] O2 Delivery: Nasal Cannula Intake/Output Summary: (Last 24 hours) Intake/Output Summary (Last 24 hours) at 01/04/182104 Last data filed at 01/04/18 192 Gross per 24 hour Intake 2169 ml Output 600 ml Net 1569 ml General: Awake, in no acute distress. HEENT: NC/AT, sclera non-icteric, moist mucus membranes. Neck: no JVD. CV: regular rhythm, normal rate, no murmurs. Lungs: clear to ausculation bilaterally, decreased at bases, on 4 L O2 Abdomen: soft, non-tender, non-distended, normo-active bowel sounds Extremities: 1+ BLE edema, pedal pulses 2 (+) bilaterally Neuro: no focal deficits Skin: no rashes Lab Review Recent CBC Recent Labs 01/02/18 0040 01/02/18 0610 01/03/18 0611 01/04/18 0545 WBC 14.4* 11.9* 9.8 9.1 HGB 12.2* 11.0* 10.4* 10.6* HCT 37.4* 33.9* 32.6* 32.1* PLTCT 507* 413* 417* 405* MCV 106.7* 107.8* 108.1* 105.8* INR 1.3* -- -- -- Recent CMP Recent Labs 01/02/18 0040 01/02/18 0610 01/03/18 0611 01/04/18 0545 NA 133* 135* 135* 135* K 4.0 3.5 3.9 4.0 CL 94* 95* 94* 94* CO2 32* 36* 37* 36* GAP 7 4 4 5 BUN 14 14 15 15 CR 0.43 0.44 0.44 0.47 GFR >60 >60 >60 >60 GLU 127* 138* 122* 88 CA 9.3 8.7 8.8 8.7 MG 1.8 -- -- -- PO4 3.9 -- -- -- ALBUMIN 2.7* -- 2.3* -- ALKPHOS 635* -- 456* -- AST 31 -- 23 -- ALT 18 -- 18 -- TOTBILI 0.4 -- 0.4 -- Other labs Pertinent labs reviewed Point of Care Testing (Last 24 hours) Glucose: 88 (01/04/18 0545) Radiology and other Diagnostics Review: No new imaging to review Medications Scheduled IV PRN albuterol 0.5% (PROVENTIL; VENTOLIN) nebulizer solution 2.5 mg 2.5 mg Inhalation QID & PRN ascorbic acid (VITAMIN C) tablet 500 mg 500 mg Oral QDAY budesonide/formoterol (SYMBICORT HFA) 160/4.5 mcg inhalation 2 puff 2 puff Inhalation BID cholecalciferol (VITAMIN D-3) tablet 400 Units 400 Units Oral QDAY digoxin (LANOXIN) tablet 250 mcg 250 mcg Oral QDAY docusate (COLACE) capsule 100 mg 100 mg Oral BID fluticasone (FLONASE) nasal spray 2 spray 2 spray Each Nostril QDAY furosemide (LASIX) tablet 60 mg 60 mg Oral BID(9-17) guaiFENesin LA (MUCINEX) tablet 600 mg 600 mg Oral BID isavuconazonium sulfate (CRESEMBA) capsule 372 mg 372 mg Oral QDAY(21) lidocaine (LIDODERM) 5 % topical patch 1-2 patch 1-2 patch Topical Q24H* metoprolol tartrate (LOPRESSOR) tablet 12.5 mg 12.5 mg Oral BID micafungin (MYCAMINE) 150 mg in sodium chloride 0.9% (NS) 110 mL IVPB 150 mg Intravenous Q24H* pantoprazole DR (PROTONIX) tablet 40 mg 40 mg Oral QDAY(21) rivaroxaban (XARELTO) tablet 20 mg 20 mg Oral QDAY w/breakfast senna (SENOKOT) tablet 2 tablet 2 tablet [...] tablet 1 tablet 1 tablet Oral QDAY acetaminophen Q4H PRN, aluminum/magnesium hydroxide Q4H PRN, bisacodyl QDAY PRN, dextran 70/hypromellose Q6H PRN, melatonin QHS PRN, milk of magnesia (CONC ) Q4H PRN, ondansetron Q6H PRN, oxyCODONE Q4H PRN, oxyCODONE QHS PRN, pancrelipase 20,000 Units/ sodium bicarbonate 650 mg(#) PRN (Salad Bar Clerk from Rx), phenol PRN K GRADER * Kaitlin Resendiz - 01/04/2018 7:55 PM STOCK GRADER Cabin Service Agent Note: Kaitlin Resendiz Admit Date: 12/31/2017 I greeted patient and gave him a thanksgiving note. He was in bed watching television but thanked me for the visit. I wished him a happy holiday. Date/Time: User: Pager: 01/04/2018 7:55 PM Kaitlin Resendiz PCU 2 PCU K GRADER * Erika Hummel RN - 01/04/2018 3:20 PM STOCK GRADER Report received from CONSTANTIN Guillory. Care for pt assumed. K GRADER * Pastora Romero - 01/04/2018 3:16 PM STOCK GRADER Heart Failure Nursing Progress Note Admission Date: 12/31/2017 LOS: 4 days Admission Weight: 74.3 kg (163 lb 12.8 oz) Most recent weights (inpatient): Vitals: 01/02/18 0600 01/03/18 0527 01/04/18 0554 Weight: 73.2 kg (161 lb 6.4 oz) 74.9 kg (165 lb 3.2 oz) 74.2 kg (163 lb 9.3 oz) Weight change from previous day: -0.7kg Fluid restriction ordered: N/A Intake/Output Summary: (Last 24 hours) Intake/Output Summary (Last 24 hours) at 01/04/18 1516 Last data filed at 01/04/18 1500 Gross per 24 hour Intake 2469 ml Output 700 ml Net 1769 ml Is patient incontinent No Anticipated discharge date: TBD Discharge goals: Mod-I Daily Assessment of Patient Stated Goals: Short Term Goal Identified by patient (Short Term=during hospitalization): K GRADER * Swathi Self, CRISTINO - 01/04/2018 2:01 PM STOCK GRADER CLINICAL NUTRITION Clinical Nutrition Assessment Summary NAME:Darrius Salas :1955 AGE: 62 y.o. ADMISSION DATE: 12/31/2017 DAYS ADMITTED: LOS: 4 days Nutrition Assessment of Patient: BMI Categories Adult: Acceptable: 18.5-24.9 (BMI 22.18) Unintentional Weight Loss: (-5.1kg from reported UBW(6.5%) 2-3mo) Malnutrition Assessment: Does not meet criteria Current Oral Intake: Improving, Inadequate Estimated Calorie Needs: 6414-3854 (25-30 kcals/kg wt 74.3kg) Estimated Protein Needs: 89-104g (1.2-1.4g/kg wt 74.3kg) Oral Diet Order: Regular EN + PO Intake (calories) Daily Average : 1788 kilocalories (~89% est kcal needs EN+PO) EN+PO Intake (protein) Daily Average : 65 grams (~73% est needs EN+PO) Just PO intake av kcals (~37% est kcals needs needs) & 22g protein PO avg (~24% est protein needs) Current EN Order: Nutren 2.0 at 55ml/hr x 12hrs to provide pt with 1320 kcal, 55 gm protein, and 455 ml free fluid. Comments: Pt is a 62 yo male admitted to inpatient rehab on 12/31 for debility. He is with a PMHx COPD, tobacco/etoh use, CAD s/p PCI admitted as a transfer from an OSH for resp failure 2/2 PNA & inability to wean off vent. Was extubated 11/14, then cleared for FLD by STATE TROOPER, but was taking minimal PO nutrition & team placed corpak & started EN 11/17 afternoon. Pt was re-intubated 11/18-11/24. Received EN during and following intubation. PEG placed 12/15. RR 12/16 d/t increased O2 requirements and transferred back to MICU. Pt received limited EN intake from -12/22 d/t significant TF holds and elevated GRVs and for procedures. STATE TROOPER following; pt advanced to pureed diet with nectar thick liquids 12/21, pureed diet with thin liquids on 12/27, advanced to mech soft with thin liquids on , and regular solids on 12/30. Pts enteral order switched from continuous to bolus feeds on 12/29 and then to nocturnal compressed feeds on 12/30. He denies N/V/D/C. He feels he is tolerating nocturnal EN well overall, but does feel as though he has a little after-taste from it in the morning. He also reported that when he was requiring thickener that it left a taste also, which feels has contributed to his appetite being down. He feels as though regular textures have helped some, but would like more food options/tastes. PO calorie count results showing pt only consuming 24-37% est kcal and protein needs over past 3- days, so feel regular vs cardiac diet most appropriate to encourage PO intake efforts. Pt reports to liking Boost and CIB, but hasn't been getting as they haven't been on his menu; he likes the CIB pack mixed into the boost. Encouraged that the more PO calories/protein he consumes the less TF he would needs. He verbalized understanding and will continue with PO intake efforts. He thinks having TF condensed further would be helpful in increasing desire to eat throughout day. Pt weight is down 5.1kg (6.5%) from his reported UBW last weighed ~2-3mos ago (not significant). Pt weight was 100.5kg on 11/13/17 during acute care admission, but he was noted to have severe edema in BLE and BUE at that time and now he is only with nonpitting edema in BLE & current rehab admit weight 74.3kg. Pt with noted stage 2 pressure ulcer on buttock; vitamin C and MV continue. Recommendations: Agree with liberalized Regular diet to encourage PO Intake efforts. Offer/encourage Boost Plus with carnation instant breakfast pack mixed into it ( pt likes all flavors) between meals to assist in increasing PO kcals/protein in effort of weaning TF. REC further condensing TF in effort to further stimulate patient's appetite; rec 'd Nutren 2.0 @80ml/hr x8hrs nocturnally (i.e. 4308-5372) to provide 1280 kcals (~65% est kcal needs) and 53g protein (~62% est protein needs). Intervention / Plan: Follow calorie count/PO intake and adjust TF recs prn. Monitor wt trends, labs, meds, GI symptoms. Encouraged increased PO Intake efforts at meals and discussed ideas of increasing intake and feeding regimen that would be best for him. Pt likes boost /CIB and willing to drink; would like CIB pack mixed into boost prn. Nutrition Diagnosis: Inadequate oral intake Etiology: decreased appetite, altered tastes, prior modified textures of food Signs & Symptoms: pt report, calorie count results, need for supplemental PEG tube feedings. Goals: Combined routes of nutrition meeting 100% of nutritional needs Time Frame: Throughout Stay Status: Partially met;Ongoing Transition from enteral to oral Time Frame: Prior to Discharge Swathi Self MA, RD, LD, CNSC *[id number] K GRADER * Beatriz Ortiz MD - 01/04/2018 11:27 AM STOCK GRADER ATTESTATION I personally performed the gaytan portions of the E/M visit, discussed case with resident and concur with resident documentation of history, physical exam, assessment, and treatment plan unless otherwise noted. Pt reports that manual cough assist hurts less than machine. Labs and VS reviewed and stable. O2 needs slightly increased to 3-4L NC. Cont aggressive pulm toilet. Will consult Anesthesia Pain to see if a nerve block could help with rib pain and breathing. Liam ct in place, still needs nocturnal TF for nutrition. Patient remains medically stable to participate in IRF program. Staff name: Beatriz Ortiz MD Date: 01/04/2018 Physical Medicine & Rehabilitation Progress Note Today's Date: 01/04/2018 Admission Date: 12/31/2017 LOS: 4 days Insurance: Medicare Principal Problem: Debility Active Problems: CHF (congestive heart failure) (HCC) CAD (coronary artery disease) AF (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) (HCC) jail current use of anticoagulant COPD (chronic obstructive pulmonary disease) (HCC) HTN (hypertension) HLD (hyperlipidemia) Alcohol abuse Tobacco abuse S/P ablation of 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 Pneumonia Respiratory failure, vemim-bo-uvizesf (HCC) Cytomegalovirus (CMV) viremia ([facility]) Impaired mobility and activities of daily living Assessment/Plan: Mr. Darrius Salas is a 62 [...] placement, thoracentesis s/p chest tube placement. He now presents to IRF with debility warranting PT/OT/STATE TROOPER therapies. Rehabilitation Plan Rehabilitation: Patient will continue with comprehensive therapies including physical therapy, occupational therapy, speech & language pathology, specialized rehab nursing, neuropsychology and physiatry oversight. Goals: Mod-i Tentative discharge date: 02/07/18 Recommended therapy after discharge: TBD Recommended equipment: TBD Daily Functional Update: Transfers Device Sit to Stand Transfer: Assistive Device: Hand Hold Assist (01/03/2018 12:49 PM) No Data Recorded Gait Device Assist Required Distance Gait: Assistive Device: Hand Hold Assist (12/30/2017 10:00 AM) No Data Recorded No Data Recorded Standing Balance Static Dynamic No Data Recorded No Data Recorded Toileting Assist Required Equipment Toilet Transfer Toileting Assist: Total Assist (01/03/2018 10:00 AM) Toileting Equipment: Commode - 3 in 1 padded (01/03/2018 10:00 AM) No Data Recorded Dressing Lower Body LE Dressing Assist: Total Assist (01/02/2018 2:00 PM) Debility secondary to acute on chronic hypoxic respiratory failure Legionella pneumonia (PNA), invasive necrotizing aspergillosis PNA, BAL with positive HSV & CMV PNA Decreased pulmonary reserve Generalized weakness Decreased endurance Impaired mobility and ADLs - Baseline O2 2-3 L QHS, currently tolerating 2L NC - s/p x3 intubation/extubations - s/p PEA arrest (extubated 11/24) - s/p treatment with linezolid, zosyn - Immunology followed across [place] for multiple opportunistic infxs > ID consulted for continuation of care > CMV quant-blood every Wednesday, CMP every Wednesday > Continue antibiotics including micafungin IV, Cresemba 372mg QD , valganciclovir 900mg BID > Can likely stop micafungin at discharge, will continue at least 3 months cresemba, 4-6wks valganciclovir > Repeat CT chest [address] or PRN > Continue aggressive pulmonary hygiene with Aerobika and IS, cough assist > Consult PT/OT > Consult anesthesia pain service for evaluation of potential costochondral block vs. Nerve block and or other modalities Right sided pleural effusion COPD - on 2-3L QHS at baseline - s/p RR 12/16 for incr 02 requirement, thoracentesis 1800cc exudative fluid - s/p chest tube removal 12/29 > Continue albuterol nebs Q4H PRN, atrovent nebs Q4H PRN > Continue HEAD START COORDINATOR Symbicort BID, flonase BID, Spiriva daily > Continue lasix 60mg BID, guaifenesin LA 600mg BID > Leave pressure bandage in place for 1-2 more days then replacing with regular dressing and monitor for fluid output - clarifying with pulmonary regarding regular dressing Paroxysmal Atrial Fibrillation with RVR CAD s/p PCI 03/2012 Chronic HFpEF HTN HLD - s/p ablation 2013 - Failed cardioversion at OSH - Previously on amiodarone, d/c'd due to LFTs > Continue lasix 60mg BID, digoxin 250mcg QD, metoprolol 12.5mg BID, and xarelto 20mg QD > Holding HEAD START COORDINATOR Coreg, Cardizem, Vasotect, Lipitor > Continue daily weights, weight stable today Elevated Alk phos/LFTs, improving - GI consulted across street - 12/20/17: CT A/P w/ contrast without inflammatory mass, ascites, or bowel obstruction. However, fusiform infrarenal abdominal aortic aneurysm measuring up to 4.9 cm in maximum diameter. > Continue nutritional support with calorie count > Consult hepatology if any issues arise > CMP every Wednesday, alk phos continues to improve, AST/ALT WNL > F/u in hepatology clinic on discharge Dysphagia- improved to resolved > Continue condensed nocturnal feeds and calorie count, still not eating enough to come off night TF > Continue regular solids/thin liquids > Consult dietitian and STATE TROOPER (STATE TROOPER also working on cough therapy) Macrocytic anemia, stable, CTM with CBC Sleep disturbance: melatonin 5mg QHS PRN Pain Management: Tylenol PRN and lidocaine patches, oxycodone 5mg Q3Hr Skin: There is / are 1 pressure sore(s) including coccyx/buttocks. Continue vit a & d ointment Bowel: continent of bowel Bladder: continent of bladder, passed BVIs x3 until <125ml and ISC for >300ml Nutrition: Current diet: regular as patient is on calorie count Feeding tube: Nocturnal compressed feeds of Nutren 2.0 at 55ml/hr x 12hrs, continue vit C, Vit D, thiamine, multi Calorie count in place Mental Health: consult neuropsychology to provide support / counseling DVT Prophylaxis: Xarelto Code status: DNAR-FI (no CPR or intubation) Nela Santoro D.O.,M.B.A. Physical Medicine and Rehabilitation, PGY-2 Pager [phone] Subjective Darrius Salas is a 62 y.o. M seen in his room this morning. He reports that he is doing well. Continues to work on cough assist, IS, and flutter valve. Pulmonary recommending anesthesia consult for intercostal block. Otherwise, he continues to have pain. Encouraged oral intake as his calorie count is still poor. No other changes at this time. Objective Vital Signs: Last Filed Vital Signs: 24 Hour Range BP: 102/72 (01/05 928) Temp: 36.3 C (97.3 F) (01/04 443) Pulse: 100 (01/05 928) Respirations: 16 PER MINUTE (01/04 443) SpO2: 98 % (01/04 443) O2 Delivery: Nasal Cannula (01/04 443) BP: (102-129)/(69-87) Temp: [36.3 C (97.3 F)-36.7 C (98.1 F)] Pulse: [83-100] Respirations: [16 PER MINUTE-18 PER MINUTE] SpO2: [93 %-98 %] O2 Delivery: Nasal Cannula Intensity Pain Scale (Self Report): 6 (01/04/18 0925) Vitals: 01/02/18 0600 01/03/18 0527 01/04/18 0554 Weight: 73.2 kg (161 lb 6.4 oz) 74.9 kg (165 lb 3.2 oz) 74.2 kg (163 lb 9.3 oz) Intake/Output Summary: (Last 24 hours) Intake/Output Summary (Last 24 hours) at 01/04/18 1127 Last data filed at 01/04/18 0659 Gross per 24 hour Intake 1749 ml Output 700 ml Net 1049 ml Stool Occurrence: 1 Last Bowel Movement Date: 01/04/18 Lab: Results for orders placed or performed during the hospital encounter of (from the past 24 hour(s)) CBC CELLULAR THERAPEUTICS Collection Time: 01/04/18 5:45 AM # # Low-High White Blood Cells 9.1 4.5 - 11.0 K/UL RBC 3.04 (L) 4.4 - 5.5 M/UL Hemoglobin 10.6 (L) 13.5 - 16.5 GM/DL Hematocrit 32.1 (L) 40 - 50 % MCV 105.8 (H) 80 - 100 FL MCH 34.9 (H) 26 - 34 PG MCHC 33.0 32.0 - 36.0 G/DL RDW 22.3 (H) 11 - 15 % Platelet Count 405 (H) 150 - 400 K/UL MPV 7.9 7 - 11 FL BASIC METABOLIC PANEL CELLULAR THERAPEUTICS Collection Time: 01/04/18 5:45 AM # # Low-High Sodium 135 (L) 137 - 147 MMOL/L Potassium 4.0 3.5 - 5.1 MMOL/L Chloride 94 (L) 98 - 110 MMOL/L CO2 36 (H) 21 - 30 MMOL/L Anion Gap 5 3 - 12 Glucose 88 70 - 100 MG/DL Blood Urea Nitrogen 15 7 - 25 MG/DL Creatinine 0.47 0.4 - 1.24 MG/DL Calcium 8.7 8.5 - 10.6 MG/DL eGFR Non >60 >60 mL/min eGFR >60 >60 mL/min Physical Exam VS: BP 102/72 | Pulse 100 | Temp 36.3 C (97.3 F) | Ht 182.9 cm (72.01") | Wt 74.2 kg (163 lb 9.3 oz) Comment: wt with white blanket, green blanket not available | SpO2 98% | BMI 22.18 kg/m Gen: Alert & Conversant, No Acute Distress HEENT: Normocephalic, atraumatic, sclera anicteric, conjunctiva not injected Neck: Supple, no elevated JVP, chest tube site covered with bandages, no drainage noted Heart: Regular Rate & Rhythm, No Murmur Lungs: Good inspiratory effort , upper airway sounds consistent with secretions , lower rhonchi b/l Abdomen: Soft, non-tender, non-distended, PEG in place Skin: Warm, dry Ext: No edema or erythema noted in b/l lower limbs MS: Proximal muscle weakness stable. Therapy Notes & Labs Reviewed. K GRADER * Oralia Barton - 01/04/2018 8:00 AM STOCK GRADER I have reviewed the notes, assessment, and/or procedures performed by Minna Harris RN and concur with her/his documentation unless otherwise noted. K GRADER * Leslie Flores - 01/04/2018 7:44 AM STOCK GRADER SPEECH-LANGUAGE PATHOLOGY REHAB SPEECH DAILY NOTE SUMMARY: Pt seen by STATE TROOPER for 45 minutes targeting dysphagia. PLAN: Continue current therapy plan FREQUENCY TODAY: 1x RECOMMENDATIONS 1. Continue regular solids and thin liquids with use of compensatory swallow strategies (small bites/sips, slow rate, head turn LEFT with solids/liquids w/ 2 effortful swallows per bolus). *If exhibiting negative pulmonary status changes, please cease PO intake. 2. Medications as tolerated by pt, likely tolerated with thin liquids. 3. Excellent oral care to reduce risk of aspirated bacteria from oral cavity(2 -3x/daily). ACTIVITIES FOR THE DAY: Pt with AM meal at time of session, however pt reporting nausea and refused all PO. Pt educated regarding expiratory muscle strength training program to be initiated on 01/05, importance of diaphragmatic breathing and cough assist techniques. Pt verbalized understanding. Pt cued to sit in bed with neck in flexion, "slouched" position to cue diaphragmatic breath. Pt completed Aerobika x10 for secretion management while STATE TROOPER simultaneously provided diaphragmatic expansion "scooping" technique. STATE TROOPER provided bilateral pressure to pt's diaphragm for cough assist x4 in which pt expectorated copious, thick, green/ yellow secretions. Speech Freight [place] Goals STATE TROOPER Fre[employer] Goals: Yes Patient will exhibit safe swallow for least restrictive consistency: Progressing Other Shelter Goals: Achieved Speech Short Term Goals Dysphagia: Yes Will tolerate current diet without signs of aspiration: Progressing Will participate in repeat instrumental swallow evaluation when clinically indicated: Progressing Therapist: Leslie Flores MA, CCC-STATE TROOPER Voalte: [id number] Date: 01/04/2018 K GRADER * Minna Harris RN - 01/04/2018 7:39 AM STOCK GRADER Heart Failure Nursing Progress Note Admission Date: 12/31/2017 LOS: 4 days Admission Weight: 74.3 kg (163 lb 12.8 oz) Most recent weights (inpatient): Vitals: 01/02/18 0600 01/03/18 0527 01/04/18 0554 Weight: 73.2 kg (161 lb 6.4 oz) 74.9 kg (165 lb 3.2 oz) 74.2 kg (163 lb 9.3 oz) Weight change from previous day:-0.7kg Fluid restriction ordered: NA Intake/Output Summary: (Last 24 hours) Intake/Output Summary (Last 24 hours) at 01/04/18 0739 Last data filed at 01/04/18 0659 Gross per 24 hour Intake 2139 ml Output 700 ml Net 1439 ml Is patient incontinent No Anticipated discharge date: TBD Discharge goals: more independence Daily Assessment of Patient Stated Goals: Short Term Goal Identified by patient (Short Term=during hospitalization): Pain management K GRADER * Paola Sommers RT - 01/03/2018 10:20 PM STOCK GRADER RT Adult Assessment Note NAME:Darrius Salas :1955 AGE: 62 y.o. ADMISSION DATE: 12/31/2017 DAYS ADMITTED: LOS: 3 days RT Treatment Plan: Protocol Plan: Medications Albuterol: Neb Q4h While Awake & PRN Albuterol/Ipratropium: Discontinued Protocol Plan: Procedures Vibrating PEP Therapy: Q4h While Awake Cough Assist: Q4h & PRN (per MD do not DC) PAP: Place a nursing order for "IS Q1h While Awake" for any of Lung Expansion indicators Oxygen/Humidity: O2 to keep SpO2 > 92% Monitoring: Pulse oximetry Q6h & PRN Additional Comments: Impressions of the patient: alert and stable Intervention(s)/outcome(s): Patient education that was completed: none Recommendations to the care team: Vital Signs: Pulse: Pulse: 94 RR: SpO2: SpO2: 97 % O2 Device: $$ O2 Device: Cannula Liter Flow: O2 Liter Flow: 3 lpm O2%: Breath Sounds: All Breath Sounds: Decreased Respiratory Effort: Respiratory Effort: Non-Labored K GRADER * Beatriz Ortiz MD - 01/03/2018 10:28 AM STOCK GRADER ATTESTATION I personally performed the gaytan portions of the E/M visit, discussed case with resident and concur with resident documentation of history, physical exam, assessment, and treatment plan unless otherwise noted. My additions to the resident's note are in the text and highlighted in blue. Staff name: Beatriz Ortiz MD Date: 01/03/2018 Physical Medicine & Rehabilitation Progress Note Today's Date: 01/03/2018 Admission Date: 12/31/2017 LOS: 3 days Insurance: Medicare Principal Problem: Debility Active Problems: CHF (congestive heart failure) (HCC) CAD (coronary artery disease) AF (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) (HCC) jail current use of anticoagulant COPD (chronic obstructive pulmonary disease) (HCC) HTN (hypertension) HLD (hyperlipidemia) Alcohol abuse Tobacco abuse S/P ablation of 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 Pneumonia Respiratory failure, [id number] (HCC) Cytomegalovirus (CMV) viremia (HCC) Impaired mobility and activities of daily living Assessment/Plan: Mr. Darrius Salas is a 62 [...] placement, thoracentesis s/p chest tube placement. He now presents to IRF with debility warranting PT/OT/STATE TROOPER therapies. Rehabilitation Plan Rehabilitation: Patient will continue with comprehensive therapies including physical therapy, occupational therapy, speech & language pathology, specialized rehab nursing, neuropsychology and physiatry oversight. Goals: Mod-i Tentative discharge date: 02/07/18 Recommended therapy after discharge: TBD Recommended equipment: TBD Daily Functional Update: Transfers Device Sit to Stand Transfer: Assistive Device: Roller Walker;Hand Hold Assist (01/02/2018 4:14 PM) No Data Recorded Gait Device Assist Required Distance Gait: Assistive Device: Hand Hold Assist (12/30/2017 10:00 AM) No Data Recorded No Data Recorded Standing Balance Static Dynamic No Data Recorded No Data Recorded Toileting Assist Required Equipment Toilet Transfer No Data Recorded No Data Recorded No Data Recorded Dressing Lower Body LE Dressing Assist: Total Assist (01/02/2018 2:00 PM) Debility secondary to acute on chronic hypoxic respiratory failure Legionella pneumonia (PNA), invasive necrotizing aspergillosis PNA, BAL with positive HSV & CMV PNA Generalized weakness Decreased endurance Impaired mobility and ADLs - Baseline O2 2-3 L QHS, currently tolerating 2L NC - s/p x3 intubation/extubations - s/p PEA arrest (extubated 11/24) - s/p treatment with linezolid, zosyn - Immunology followed across street for multiple opportunistic infxs > ID consulted for continuation of care > CMV quant-blood every Wednesday, CMP every Wednesday > Continue antibiotics including micafungin IV, Cresemba 372mg QD , valganciclovir 900mg BID > Can likely stop micafungin at discharge, will continue at least 3 months cresemba, 4-6wks valganciclovir > Continue pulmonary hygiene with Aerobika and IS, cough assist > Consult PT/OT Right sided pleural effusion COPD - on 2-3L QHS at baseline - s/p RR 12/16 for incr 02 requirement, thoracentesis 1800cc exudative fluid - s/p chest tube removal 12/29 > Continue albuterol nebs Q4H PRN, atrovent nebs Q4H PRN > Continue HEAD START COORDINATOR Symbicort BID, flonase BID, Spiriva daily > Continue lasix 60mg BID, guaifenesin LA 600mg BID > Leave pressure bandage in place for 1-2 more days then replacing with regular dressing and monitor for fluid output Paroxysmal Atrial Fibrillation with RVR CAD s/p PCI 03/2012 Chronic HFpEF HTN HLD - s/p ablation 2013 - Failed cardioversion at OSH - Previously on amiodarone, d/c'd due to LFTs > Continue lasix 60mg BID, digoxin 250mcg QD, metoprolol 12.5mg BID, and xarelto 20mg QD > holding HEAD START COORDINATOR Coreg, Cardizem, Vasotect, Lipitor > Continue daily weights, weight up today Elevated Alk phos/LFTs, improving - GI consulted across street - 12/20/17: CT A/P w/ contrast without inflammatory mass, ascites, or bowel obstruction. However, fusiform infrarenal abdominal aortic aneurysm measuring up to 4.9 cm in maximum diameter. > Continue nutritional support > Consult hepatology if any issues arise or Alk phos does not improve > CMP every Wednesday, alk phos continues to improve, AST/ALT WNL > F/u in hepatology clinic on discharge Dysphagia- improved to resolved > Continue condensed nocturnal feeds > Continue cardiac solids/thin liquids > Consult dietitian and STATE TROOPER Macrocytic anemia, stable, CTM with CBC Sleep disturbance: melatonin 5mg QHS PRN Pain Management: Tylenol PRN and lidocaine patches, oxycodone 5mg Q3Hr Skin: There is / are 1 pressure sore(s) including coccyx/buttocks. Continue vit a & d ointment Bowel: continent of bowel Bladder: continent of bladder, passed BVIs x3 until <125ml and ISC for >300ml Nutrition: Current diet: cardiac diet Feeding tube: Nocturnal compressed feeds of Nutren 2.0 at 55ml/hr x 12hrs, continue vit C, Vit D, thiamine, multi Calorie count in place Mental Health: consult neuropsychology to provide support / counseling DVT Prophylaxis: Xarelto Code status: DNAR-FI (no CPR or intubation) Nela Santoro D.O.,M.B.A. Physical Medicine and Rehabilitation, PGY-2 Pager [phone] Subjective Darrius Salas is a 62 y.o. seen in his room this morning. He feels much better. He has been using a cough assist. Spoke with STATE TROOPER about expiratory training. Continue to monitor for o2 and secretion management. Pulmonary to come by today. He has no other complaints. Objective Vital Signs: Last Filed Vital Signs: 24 Hour Range BP: 114/74 (01/03 1000) Temp: 36.6 C (97.8 F) (01/03 0848) Pulse: 108 (01/03 1000) Respirations: 20 PER MINUTE (01/03 0945) SpO2: 93 % (01/03 1000) O2 Delivery: Nasal Cannula (01/03 1000) BP: (114-131)/(74-82) Temp: [36.4 C (97.5 F)-36.7 C (98 F)] Pulse: [93-108] Respirations: [18 PER MINUTE-20 PER MINUTE] SpO2: [93 %-99 %] O2 Delivery: Nasal Cannula Intensity Pain Scale (Self Report): 6 (01/03/18 0830) Vitals: 01/01/18 0557 01/02/18 0600 01/03/18 0527 Weight: 74.1 kg (163 lb 4.8 oz) 73.2 kg (161 lb 6.4 oz) 74.9 kg (165 lb 3.2 oz) Intake/Output Summary: (Last 24 hours) Intake/Output Summary (Last 24 hours) at 01/03/18 1028 Last data filed at 01/03/18 0900 Gross per 24 hour Intake 1064 ml Output 530 ml Net 534 ml Last Bowel Movement Date: 12/29/17 Lab: Results for orders placed or performed during the hospital encounter of (from the past 24 hour(s)) CBC CELLULAR THERAPEUTICS Collection Time: 01/03/18 6:11 AM # # Low-High White Blood Cells 9.8 4.5 - 11.0 K/UL RBC 3.02 (L) 4.4 - 5.5 M/UL Hemoglobin 10.4 (L) 13.5 - 16.5 GM/DL Hematocrit 32.6 (L) 40 - 50 % MCV 108.1 (H) 80 - 100 FL MCH 34.4 (H) 26 - 34 PG MCHC 31.9 (L) 32.0 - 36.0 G/DL RDW 22.5 (H) 11 - 15 % Platelet Count 417 (H) 150 - 400 K/UL MPV 8.0 7 - 11 FL COMPREHENSIVE METABOLIC PANEL Collection Time: 01/03/18 6:11 AM # # Low-High Sodium 135 (L) 137 - 147 MMOL/L Potassium 3.9 3.5 - 5.1 MMOL/L Chloride 94 (L) 98 - 110 MMOL/L Glucose 122 (H) 70 - 100 MG/DL Blood Urea Nitrogen 15 7 - 25 MG/DL Creatinine 0.44 0.4 - 1.24 MG/DL Calcium 8.8 8.5 - 10.6 MG/DL Total Protein 6.5 6.0 - 8.0 G/DL Total Bilirubin 0.4 0.3 - 1.2 MG/DL Albumin 2.3 (L) 3.5 - 5.0 G/DL Alk Phosphatase 456 (H) 25 - 110 U/L AST (SGOT) 23 7 - 40 U/L CO2 37 (H) 21 - 30 MMOL/L ALT (SGPT) 18 7 - 56 U/L Anion Gap 4 3 - 12 eGFR Non >60 >60 mL/min eGFR >60 >60 mL/min Physical Exam VS: BP 114/74 | Pulse 108 | Temp 36.6 C (97.8 F) | Ht 182.9 cm (72.01") | Wt 74.9 kg (165 lb 3.2 oz) | SpO2 93% | BMI 22.40 kg/m Gen: Alert & Conversant, No Acute Distress HEENT: Normocephalic, atraumatic, sclera anicteric, conjunctiva not injected Neck: Supple, no elevated JVP, chest tube site covered with bandages, no drainage noted Heart: Regular Rate & Rhythm, No Murmur Lungs: Good inspiratory effort , upper airway sounds consistent with secretions Abdomen: Soft, non-tender, non-distended, PEG in place Skin: Warm, dry Ext: No edema or erythema noted in b/l lower limbs MS: Proximal muscle weakness stable. Therapy Notes & Labs Reviewed. K GRADER * Leslie Flores - 01/03/2018 7:37 AM STOCK GRADER SPEECH-LANGUAGE PATHOLOGY REHAB SPEECH DAILY NOTE SUMMARY: Pt seen by STATE TROOPER for 45 minutes targeting dysphagia. PLAN: Continue current therapy plan FREQUENCY TODAY: 1x RECOMMENDATIONS 1. Continue regular solids and thin liquids with use of compensatory swallow strategies (small bites/sips, slow rate, head turn LEFT with solids/liquids w/ 2 effortful swallows per bolus). *If exhibiting negative pulmonary status changes, please cease PO intake. 2. Medications as tolerated by pt, likely tolerated with thin liquids. 3. Excellent oral care to reduce risk of aspirated bacteria from oral cavity(2 -3x/daily). ACTIVITIES FOR THE DAY: Pt seen by STATE TROOPER for AM meal and medications; session focus on strategy training and diet tolerance. Pt demonstrating intermittent throat clearing throughout session both with and without PO intake; difficult to differentiate if s/sx of aspiration/penetration. Pt demonstrated functional oral phase of swallow; no anterior loss or oral residue. Variable swallow initiation from timely to mildly delayed observed with moderately reduced hyolaryngeal excursion as perceived upon palpation. Throat clear x2 believed to be s/sx of aspiration/ penetration noted. Pt required minimal cues throughout session for small bites/ sips, multiple swallows, and head turn to left with all textures. Exercise program verbally reviewed with pt verbalizing understanding. Speech Freight [place] Goals STATE TROOPER Fre[employer] [place] Goals: Yes Other Shelter Goals: Pt will participate in further assessment of higher level cognition. Speech Short Term Goals Dysphagia: Yes Will tolerate current diet without signs of aspiration: Minimal to Moderate cues , 100% accuracy Will participate in repeat instrumental swallow evaluation when clinically indicated: 100% accuracy, Minimal cues Therapist: Leslie Flores MA, CCC-STATE TROOPER Voalte: [id number] Date: 01/03/2018 K GRADER * Kary Hamm RN - 01/03/2018 6:21 AM STOCK GRADER Heart Failure Nursing Progress Note Admission Date: 12/31/2017 LOS: 3 days Admission Weight: 74.3 kg (163 lb 12.8 oz) Most recent weights (inpatient): Vitals: 01/01/18 0557 01/02/18 0600 01/03/18 0527 Weight: 74.1 kg (163 lb 4.8 oz) 73.2 kg (161 lb 6.4 oz) 74.9 kg (165 lb 3.2 oz) Weight change from previous day: + 1.6 Fluid restriction ordered: no Intake/Output Summary: (Last 24 hours) Intake/Output Summary (Last 24 hours) at 01/03/18 0622 Last data filed at 01/03/18 0425 Gross per 24 hour Intake 1224 ml Output 530 ml Net 694 ml Is patient incontinent no Anticipated discharge date: TBD Discharge goals: increase indepedence Daily Assessment of Patient Stated Goals: Short Term Goal Identified by patient (Short Term=during hospitalization): Pain management K GRADER * lAla Almonte RN - 01/02/2018 7:43 PM STOCK GRADER Heart Failure Nursing Progress Note Admission Date: 12/31/2017 LOS: 2 days Admission Weight: 74.3 kg (163 lb 12.8 oz) Most recent weights (inpatient): Vitals: 12/31/17 1320 01/01/18 0557 01/02/18 0600 Weight: 74.3 kg (163 lb 12.8 oz) 74.1 kg (163 lb 4.8 oz) 73.2 kg (161 lb 6.4 oz ) Weight change from previous day:-0.9 kg Fluid restriction ordered: no Intake/Output Summary: (Last 24 hours) Intake/Output Summary (Last 24 hours) at 01/02/18 194 Last data filed at 01/02/18 1940 Gross per 24 hour Intake 1465 ml Output 1280 ml Net 185 ml Is patient incontinent No Anticipated discharge date:TBD Discharge goals: Mod. I at home Daily Assessment of Patient Stated Goals: Short Term Goal Identified by patient (Short Term=during hospitalization): clear out my lungs K GRADER * Alla Almonte RN - 01/02/2018 6:45 PM STOCK GRADER Pts family emptied urinal and did not report to staff. Pt and pts family asked to please notify staff so it can be documented accurately. Pt reports that he has voided 6 times this shift and indicated on the urinal approx 300 ml for each void. K GRADER * Lisa Davis - 01/02/2018 12:29 PM STOCK GRADER SPEECH-LANGUAGE PATHOLOGY NO TREATMENT NOTE Attempted to see pt for noon lunch and observe use of strategies, however upon entry pt reporting feeling nauseated and with no appetite for lunch following previous therapy session. STATE TROOPER will make up 15 minute session tomorrow. Therapist: Lisa TREVIÑO/STATE TROOPER Voalte: [phone] Weekend Salad Bar Clerk Pager: [phone] Date: 01/02/2018 K GRADER * Nela Santoro MD - 01/02/2018 9:43 AM STOCK GRADER Physical Medicine & Rehabilitation Progress Note Today's Date: 01/02/2018 Admission Date: 12/31/2017 LOS: 2 days Insurance: Principal Problem: Debility Active Problems: CHF (congestive heart failure) (HCC) CAD (coronary artery disease) AF (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) (HCC) jail current use of anticoagulant COPD (chronic obstructive pulmonary disease) (HCC) HTN (hypertension) HLD (hyperlipidemia) Alcohol abuse Tobacco abuse S/P ablation of atrial fibrillation Pneumonia Respiratory failure, ezgba-qh-uvecefr (HCC) Cytomegalovirus (CMV) viremia (HCC) Impaired mobility and activities of daily living Assessment/Plan: Mr. Darrius Salas is a 62 [...] placement, thoracentesis s/p chest tube placement. He now presents to IRF with debility warranting PT/OT/STATE TROOPER therapies. Rehabilitation Plan Rehabilitation: Patient will continue with comprehensive therapies including physical therapy, occupational therapy, speech & language pathology, specialized rehab nursing, neuropsychology and physiatry oversight. Goals: Mod-i Tentative discharge date: TBD Recommended therapy after discharge: TBD Recommended equipment: TBD Daily Functional Update: Transfers Device Sit to Stand Transfer: Assistive Device: Roller Walker (01/01/2018 1:00 PM) No Data Recorded Gait Device Assist Required Distance Gait: Assistive Device: Hand Hold Assist (12/30/2017 10:00 AM) No Data Recorded No Data Recorded Standing Balance Static Dynamic No Data Recorded No Data Recorded Toileting Assist Required Equipment Toilet Transfer No Data Recorded No Data Recorded No Data Recorded Dressing Lower Body LE Dressing Assist: Total Assist (01/01/2018 8:00 AM) Debility secondary to acute on chronic hypoxic respiratory failure Legionella pneumonia (PNA), invasive necrotizing aspergillosis PNA, BAL with positive HSV & CMV PNA Generalized weakness Decreased endurance Impaired mobility and ADLs - Baseline O2 2-3 L QHS, currently tolerating 2L NC - s/p x3 intubation/extubations - s/p PEA arrest (extubated 11/24) - s/p treatment with linezolid, zosyn - Immunology followed across street for multiple opportunistic infxs > ID consulted for continuation of care > CMV quant-blood every Wednesday , CMP every Wednesday > Continue antibiotics including micafungin IV, Cresemba 372mg QD , valganciclovir 900mg BID > Can likely stop micafungin at discharge, will continue at least 3 months cresemba > Continue pulmonary hygiene with Aerobika and IS > Consult PT/OT Right sided pleural effusion COPD - on 2-3L QHS at baseline - s/p RR 12/16 for incr 02 requirement, thoracentesis 1800cc exudative fluid - s/p chest tube removal 12/29 > Continue albuterol nebs Q4H PRN, atrovent nebs Q4H PRN > Continue lasix 60mg BID, guaifenesin 100mg Q4H > Leave pressure bandage in place for 1-2 more days then replacing with regular dressing and monitor for fluid output Paroxysmal Atrial Fibrillation with RVR CAD s/p PCI 03/2012 Chronic HFpEF - s/p ablation 2013 - Failed cardioversion at OSH - Previously on amiodarone, d/c'd due to LFTs > Continue lasix 60mg BID, digoxin 250mcg QD, metoprolol 12.5mg BID, and xarelto 20mg QD > Continue daily weights Elevated Alk phos/LFTs, improving - GI consulted across street - 12/20/17: CT A/P w/ contrast without inflammatory mass, ascites, or bowel obstruction. However, fusiform infrarenal abdominal aortic aneurysm measuring up to 4.9 cm in maximum diameter. > Continue nutritional support > Consult hepatology if any issues arise or Alk phos does not improve > CMP every Wednesday > F/u in hepatology clinic on discharge Dysphagia- improved to resolved > Continue condensed nocturnal feeds > Continue cardiac solids/thin liquids > Consult dietitian and STATE TROOPER Macrocytic anemia, stable, CTM with CBC Sleep disturbance: melatonin 5mg QHS PRN Pain Management: Tylenol PRN and lidocaine patches, oxycodone 5mg Q3Hr Skin: There is / are 1 pressure sore(s) including coccyx/buttocks. Continue vit a & d ointment Bowel: continent of bowel Bladder: continent of bladder, BVIs x3 until <125ml and ISC for >300ml Nutrition: Current diet: cardiac diet Feeding tube: Nocturnal compressed feeds of Nutren 2.0 at 55ml/hr x 12hrs, continue vit C, Vit D, thiamine, multi Calorie count in place Mental Health: consult neuropsychology to provide support / counseling DVT Prophylaxis: Xarelto} Code status: DNAR-FI (no CPR or intubation) Nela Santoro D.O.,M.B.A. Physical Medicine and Rehabilitation, PGY-2 Pager [phone] Subjective Darrius Salas is a 62 y.o. seen in his room this morning. He was rapid responded last night. Please see my progress note from last night. Overall this morning, he is able to use cough assist and clear secretions. Will change to mucinex to help. Will continue to keep close eye on him. Paged pulmonary regarding increased oxygen sats. Objective Vital Signs: Last Filed Vital Signs: 24 Hour Range BP: 116/79 (01/02 829) Temp: 36.6 C (97.9 F) (01/03 400) Pulse: 97 (01/02 829) Respirations: 20 PER MINUTE (01/03 400) SpO2: 97 % (01/02 0424) O2 Delivery: Nasal Cannula (01/03 400) BP: (113-141)/(45-89) Temp: [36.4 C (97.6 F)-36.7 C (98 F)] Pulse: [81-109] Respirations: [18 PER MINUTE-28 PER MINUTE] SpO2: [71 %-98 %] O2 Delivery: Nasal Cannula Intensity Pain Scale (Self Report): 6 (01/02/18 0111) Vitals: 12/31/17 1320 01/01/18 0557 01/02/18 0600 Weight: 74.3 kg (163 lb 12.8 oz) 74.1 kg (163 lb 4.8 oz) 73.2 kg (161 lb 6.4 oz ) Intake/Output Summary: (Last 24 hours) Intake/Output Summary (Last 24 hours) at 01/02/18 0943 Last data filed at 01/02/18 0622 Gross per 24 hour Intake 795 ml Output 1850 ml Net -1055 ml Last Bowel Movement Date: 12/29/17 Lab: Results for orders placed or performed during the hospital encounter of (from the past 24 hour(s)) CBC Collection Time: 01/02/18 12:40 AM # # Low-High White Blood Cells 14.4 (H) 4.5 - 11.0 K/UL RBC 3.51 (L) 4.4 - 5.5 M/UL Hemoglobin 12.2 (L) 13.5 - 16.5 GM/DL Hematocrit 37.4 (L) 40 - 50 % MCV 106.7 (H) 80 - 100 FL MCH 34.9 (H) 26 - 34 PG MCHC 32.7 32.0 - 36.0 G/DL RDW 23.1 (H) 11 - 15 % Platelet Count 507 (H) 150 - 400 K/UL MPV 8.1 7 - 11 FL PROTIME INR (PT) Collection Time: 01/02/18 12:40 AM # # Low-High INR 1.3 (H) 0.8 - 1.2 PTT (APTT) Collection Time: 01/02/18 12:40 AM # # Low-High APTT 34.7 20.0 - 36.0 SEC COMPREHENSIVE METABOLIC PANEL Collection Time: 01/02/18 12:40 AM # # Low-High Sodium 133 (L) 137 - 147 MMOL/L Potassium 4.0 3.5 - 5.1 MMOL/L Chloride 94 (L) 98 - 110 MMOL/L Glucose 127 (H) 70 - 100 MG/DL Blood Urea Nitrogen 14 7 - 25 MG/DL Creatinine 0.43 0.4 - 1.24 MG/DL Calcium 9.3 8.5 - 10.6 MG/DL Total Protein 7.2 6.0 - 8.0 G/DL Total Bilirubin 0.4 0.3 - 1.2 MG/DL Albumin 2.7 (L) 3.5 - 5.0 G/DL Alk Phosphatase 635 (H) 25 - 110 U/L AST (SGOT) 31 7 - 40 U/L CO2 32 (H) 21 - 30 MMOL/L ALT (SGPT) 18 7 - 56 U/L Anion Gap 7 3 - 12 eGFR Non >60 >60 mL/min eGFR >60 >60 mL/min TROPONIN-I Collection Time: 01/02/18 12:40 AM # # Low-High Troponin-I 0.02 0.0 - 0.05 NG/ML MAGNESIUM Collection Time: 01/02/18 12:40 AM # # Low-High Magnesium 1.8 1.6 - 2.6 mg/dL PHOSPHORUS Collection Time: 01/02/18 12:40 AM # # Low-High Phosphorus 3.9 2.0 - 4.5 MG/DL LACTIC ACID (BG - RAPID LACTATE) Collection Time: 01/02/18 12:40 AM # # Low-High Lactic Acid,BG 2.4 (H) 0.5 - 2.0 MMOL/L POC BLOOD GAS ARTERIAL Collection Time: 01/02/18 12:57 AM # # Low-High PH-ART-POC 7.50 (H) 7.35 - 7.45 [id number] 48 (H) 35 - 45 MMHG PO2-ART-POC 69 (L) 80 - 100 MMHG Base Ex-ART-POC 14.0 MMOL/L O2 Sat-ART-POC 95.0 95 - 99 % Jnzypwswszc-YQF-DHR 36.8 (H) 21 - 28 MMOL/L POC HEMATOCRIT Collection Time: 01/02/18 12:57 AM # # Low-High Hemoglobin POC 12.6 (L) 13.5 - 16.5 GM/DL Hematocrit POC 37.0 (L) 40 - 50 % POC POTASSIUM Collection Time: 01/02/18 12:57 AM # # Low-High Potassium-POC 3.6 3.5 - 5.1 MMOL/L POC SODIUM Collection Time: 01/02/18 12:57 AM # # Low-High Sodium-POC 137 137 - 147 MMOL/L POC IONIZED CALCIUM Collection Time: 01/02/18 12:57 AM # # Low-High Ionized Calcium-POC 1.18 1.0 - 1.3 MMOL/L CBC CELLULAR THERAPEUTICS Collection Time: 01/02/18 6:10 AM # # Low-High White Blood Cells 11.9 (H) 4.5 - 11.0 K/UL RBC 3.15 (L) 4.4 - 5.5 M/UL Hemoglobin 11.0 (L) 13.5 - 16.5 GM/DL Hematocrit 33.9 (L) 40 - 50 % MCV 107.8 (H) 80 - 100 FL MCH 34.9 (H) 26 - 34 PG MCHC 32.4 32.0 - 36.0 G/DL RDW 22.7 (H) 11 - 15 % Platelet Count 413 (H) 150 - 400 K/UL MPV 8.0 7 - 11 FL BASIC METABOLIC PANEL CELLULAR THERAPEUTICS Collection Time: 01/02/18 6:10 AM # # Low-High Sodium 135 (L) 137 - 147 MMOL/L Potassium 3.5 3.5 - 5.1 MMOL/L Chloride 95 (L) 98 - 110 MMOL/L CO2 36 (H) 21 - 30 MMOL/L Anion Gap 4 3 - 12 Glucose 138 (H) 70 - 100 MG/DL Blood Urea Nitrogen 14 7 - 25 MG/DL Creatinine 0.44 0.4 - 1.24 MG/DL Calcium 8.7 8.5 - 10.6 MG/DL eGFR Non >60 >60 mL/min eGFR >60 >60 mL/min Physical Exam VS: BP 116/79 | Pulse 97 | Temp 36.6 C (97.9 F) | Ht 182.9 cm (72.01") | Wt 73.2 kg (161 lb 6.4 oz) | SpO2 97% | BMI 21.88 kg/m Gen: Alert & Conversant, No Acute Distress HEENT: Normocephalic, atraumatic, sclera anicteric, conjunctiva not injected Neck: Supple, no elevated JVP, chest tube site covered with bandages, no drainage noted Heart: Regular Rate & Rhythm, No Murmur Lungs: Good inspiratory effort , CTAB Abdomen: Soft, non-tender, non-distended, PEG in place Skin: Warm, dry Ext: No edema or erythema noted in b/l lower limbs MS: Proximal muscle weakness stable. Therapy Notes & Labs Reviewed. K GRADER Associated attestation - Sonido Tong MD - 01/02/2018 10:29 PM STOCK GRADER ATTESTATION I personally observed the resident performing the E/M, discussed case with resident, and concur with resident documentation of history, physical assessment and treatment plan unless otherwise noted. Staff name: Sonido Tong MD Date: 01/02/2018 * Lisa Davis - 01/02/2018 9:26 AM STOCK GRADER SPEECH-LANGUAGE PATHOLOGY REHAB SPEECH DAILY NOTE SUMMARY: Pt seen for 45 minutes this date, 15 minutes missed as pt receiving RT therapy during initial portion of session. STATE TROOPER will f/u later this date to make up remaining 20 minutes. PLAN: Decrease minutes to 30 minutes daily targeting dysphagia. FREQUENCY TODAY: 2x ACTIVITIES FOR THE DAY: Administered portions of the TORI for purpose of higher level cognitive assessment. Results are as follows: Counting money: 11/24 Solving daily math problems: 09/24 Understanding medicine labels: 11/24 Using a calendar: 11/24 Reading instructions: 11/24 Constant therapy: Clock reading level 2: 5/5, clock math level 1: /5, level three: /5 Provided pt with written education re: previously implemented swallow exercises. Encouraged pt to continue to attempt to complete 3-5x daily with x10 repetitions each. Pt verbalized understanding. Per chart review and RN, pt with rapid response overnight due to respiratory status. CXR: IMPRESSION: No significant change in patchy predominately alveolar opacities within both lungs, greatest on the right, compatible with pneumonia. Small bilateral pleural effusions. Pt observed to consistently utilize use of head turn left during pill administration this AM. Speech [employer] [place] Goals STATE TROOPER [employer] [place] Goals: Yes Other Shelter Goals: Pt will participate in further assessment of higher level cognition. Speech Short Term Goals Dysphagia: Yes Will tolerate current diet without signs of aspiration: Minimal to Moderate cues , 100% accuracy Will participate in repeat instrumental swallow evaluation when clinically indicated: 100% accuracy, Minimal cues Therapist: Lisa RICHARDSONL/STATE TROOPER Voalte: [phone] Weekend Salad Bar Clerk Pager: [phone] Date: 01/02/2018 K GRADER * Kary Hamm RN - 01/02/2018 6:50 AM STOCK GRADER Heart Failure Nursing Progress Note Admission Date: 12/31/2017 LOS: 2 days Admission Weight: 74.3 kg (163 lb 12.8 oz) Most recent weights (inpatient): Vitals: 12/31/17 1320 01/01/18 0557 01/02/18 0600 Weight: 74.3 kg (163 lb 12.8 oz) 74.1 kg (163 lb 4.8 oz) 73.2 kg (161 lb 6.4 oz ) Weight change from previous day:- 0.9 kg Fluid restriction ordered: no Intake/Output Summary: (Last 24 hours) Intake/Output Summary (Last 24 hours) at 01/02/18 0650 Last data filed at 01/02/18 0622 Gross per 24 hour Intake 929 ml Output 2150 ml Net -1221 ml Is patient incontinent no Anticipated discharge date: TBD Discharge goals: Back to indepedent Daily Assessment of Patient Stated Goals: Short Term Goal Identified by patient (Short Term=during hospitalization): Pain management K GRADER * Kary Hamm, RN - 01/02/2018 3:23 AM STOCK GRADER 0001-Pt rang. Said he was having trouble breathing. Vitals obtained(see flowsheet). Labored breathing noted, lung sounds coarse (as noted during pm assessment previously). O2 in low 70's on o23L. Increased o2 via nc with no results. NRB placed. RR activated at 0011. Pt sats increased on NRB to low 90's but pt remained tachypneic with labored breathing and coarse lung sounds. K GRADER * Edinson Garza RT - 01/02/2018 2:48 AM STOCK GRADER RT Adult Assessment Note NAME:Darrius Salas :1955 AGE: 62 y.o. ADMISSION DATE: 12/31/2017 DAYS ADMITTED: LOS: 2 days RT Treatment Plan: Protocol Plan: Medications Albuterol/Ipratropium: Neb Q4h While Awake & PRN Protocol Plan: Procedures Vibrating PEP Therapy: Q4h & PRN Cough Assist: Q4h & PRN (do not dc per MD) NTS: Q4h & PRN PAP: Place a nursing order for "IS Q1h While Awake" for any of Lung Expansion indicators Oxygen/Humidity: O2 to keep SpO2 > 92% Monitoring: Pulse oximetry Q6h & PRN Additional Comments: Impressions of the patient: Patirnt continues to have problems with airway clearencedue to chest wall movement. Intervention(s)/outcome(s):NTS Recommendations to the care team: patient may have need of adjunct faculty for medical terminology assistance of airway. Recomend continued use of cough assist. Vital Signs: Pulse: Pulse: 104 RR: Respirations: 24 PER MINUTE SpO2: SpO2: 98 % O2 Device: $$ O2 Device: Cannula Liter Flow: O2 Liter Flow: 4 lpm O2%: Breath Sounds: All Breath Sounds: Decreased;Coarse crackles Respiratory Effort: K GRADER * Nela Santoro MD - 01/02/2018 1:00 AM STOCK GRADER Patient was rapid responded around 0011 due to 02 Sat 72-74% and labored breathing. He was placed on a NRB at 10L. Suctioned with rapid improvement in his o2 sats. Stat CXR on quick view appears unchanged from previous CXR on . Bilateral pleural effusions still present, worse on the right. PH 7.497 / 47.5 / 69/ 36.8. Patient stable on arrival. Lung sounds clear at bases with upper airway secretions. Lactate pending. Currently 4L o2. Discussed with RT the need for cough assist. Dispo ongoing Update: Lactate slightly elevated. Pending CXR read. Upper airway sounds stable. Patient subjectively feels "much better." Will touch base with ID in the morning. Remains stable for inpatient rehabilitation at this time. K GRADER * Karen Summers RN - 01/01/2018 3:46 PM STOCK GRADER Heart Failure Progress Note Number of days admitted: 1 Admission weight: 74.3kg Current weight: 74.1kg Weight change from previous day: -.2kg Fluid restriction ordered: no Net I&O for hospital stay: Anticipated discharge date: on-going Discharge goals: pt would like to go back to being independent. Discharge needs (DME, HH, etc): TBD Social Work/Case Management on board: Yes K GRADER * Nela Santoro MD - 01/01/2018 3:41 PM STOCK GRADER Physical Medicine & Rehabilitation Progress Note Today's Date: 01/01/2018 Admission Date: 12/31/2017 LOS: 1 day Insurance: Principal Problem: Debility Active Problems: CHF (congestive heart failure) (HCC) CAD (coronary artery disease) AF (atrial fibrillation) (HCC) jail current use of anticoagulant COPD (chronic obstructive pulmonary disease) (HCC) HTN (hypertension) HLD (hyperlipidemia) Alcohol abuse Tobacco abuse S/P ablation of atrial fibrillation Pneumonia Respiratory failure, tdshl-ae-vsjwnsr (HCC) Cytomegalovirus (CMV) viremia (HCC) Impaired mobility and activities of daily living Assessment/Plan: Mr. Darrius Salas is a 62 [...] placement, thoracentesis s/p chest tube placement. He now presents to IRF with debility warranting PT/OT/STATE TROOPER therapies. Rehabilitation Plan Rehabilitation: Patient will continue with comprehensive therapies including physical therapy, occupational therapy, speech & language pathology, specialized rehab nursing, neuropsychology and physiatry oversight. Goals: Mod-i Tentative discharge date: TBD Recommended therapy after discharge: TBD Recommended equipment: TBD Daily Functional Update: Transfers Device Sit to Stand Transfer: Assistive Device: Hand Hold Assist (01/01/2018 8:00 AM) No Data Recorded Gait Device Assist Required Distance Gait: Assistive Device: Hand Hold Assist (12/30/2017 10:00 AM) No Data Recorded No Data Recorded Standing Balance Static Dynamic No Data Recorded No Data Recorded Toileting Assist Required Equipment Toilet Transfer No Data Recorded No Data Recorded No Data Recorded Dressing Lower Body LE Dressing Assist: Total Assist (01/01/2018 8:00 AM) Debility secondary to acute on chronic hypoxic respiratory failure Legionella pneumonia (PNA), invasive necrotizing aspergillosis PNA, BAL with positive HSV & CMV PNA Generalized weakness Decreased endurance Impaired mobility and ADLs - Baseline O2 2-3 L QHS, currently tolerating 2L NC - s/p x3 intubation/extubations - s/p PEA arrest (extubated 11/24) - s/p treatment with linezolid, zosyn - Immunology followed across [place] for multiple opportunistic infxs > ID consulted for continuation of care > CMV quant-blood every Wednesday , CMP every Wednesday > Continue antibiotics including micafungin IV, Cresemba 372mg QD , valganciclovir 900mg BID > Can likely stop micafungin at discharge, will continue at least 3 months cresemba > Continue pulmonary hygiene with Aerobika and IS > Consult PT/OT Right sided pleural effusion COPD - on 2-3L QHS at baseline - s/p RR 12/16 for incr 02 requirement, thoracentesis 1800cc exudative fluid - s/p chest tube removal 12/29 > Continue albuterol nebs Q4H PRN, atrovent nebs Q4H PRN > Continue lasix 60mg BID, guaifenesin 100mg Q4H > Leave pressure bandage in place for 1-2 more days then replacing with regular dressing and monitor for fluid output Paroxysmal Atrial Fibrillation with RVR CAD s/p PCI 03/2012 Chronic HFpEF - s/p ablation 2013 - Failed cardioversion at OSH - Previously on amiodarone, d/c'd due to LFTs > Continue lasix 60mg BID, digoxin 250mcg QD, metoprolol 12.5mg BID, and xarelto 20mg QD > Continue daily weights Elevated Alk phos/LFTs, improving - GI consulted across street - 12/20/17: CT A/P w/ contrast without inflammatory mass, ascites, or bowel obstruction. However, fusiform infrarenal abdominal aortic aneurysm measuring up to 4.9 cm in maximum diameter. > Continue nutritional support > Consult hepatology if any issues arise or Alk phos does not improve > CMP every Wednesday > F/u in hepatology clinic on discharge Dysphagia- improved to resolved > Continue condensed nocturnal feeds > Continue cardiac solids/thin liquids > Consult dietitian and STATE TROOPER Macrocytic anemia, stable, CTM with CBC Sleep disturbance: melatonin 5mg QHS PRN Pain Management: Tylenol PRN and lidocaine patches, oxycodone 5mg Q3Hr Skin: There is / are 1 pressure sore(s) including coccyx/buttocks. Continue vit a & d ointment Bowel: continent of bowel Bladder: continent of bladder, BVIs x3 until <125ml and ISC for >300ml Nutrition: Current diet: cardiac diet Feeding tube: Nocturnal compressed feeds of Nutren 2.0 at 55ml/hr x 12hrs, continue vit C, Vit D, thiamine, multi Calorie count in place Mental Health: consult neuropsychology to provide support / counseling DVT Prophylaxis: Xarelto} Code status: DNAR-FI (no CPR or intubation) Nela Santoro D.O.,M.B.A. Physical Medicine and Rehabilitation, PGY-2 Pager [phone] Subjective Darrius Salas is a 62 y.o. seen in his room this morning. He reports sternal chest pain from his fracture. Otherwise, had a good first night. No acute events overnight. No other complaints at this time. Objective Vital Signs: Last Filed Vital Signs: 24 Hour Range BP: (P) 125/89 (11/17 1357) Temp: 36.6 C (97.8 F) (01/01 0800) Pulse: (P) 104 (01/01 135) Respirations: 18 PER MINUTE (01/01 0954) SpO2: 98 % (01/01 954) O2 Delivery: (P) Nasal Cannula (01/01 1357) BP: (124-139)/(82-90) Temp: [36.3 C (97.4 F)-36.7 C (98.1 F)] Pulse: [81-104] Respirations: [18 PER MINUTE-20 PER MINUTE] SpO2: [94 %-98 %] O2 Delivery: (P) Nasal Cannula Intensity Pain Scale (Self Report): 6 (01/01/18 1300) Vitals: 12/31/17 1320 01/01/18 0557 Weight: 74.3 kg (163 lb 12.8 oz) 74.1 kg (163 lb 4.8 oz) Intake/Output Summary: (Last 24 hours) Intake/Output Summary (Last 24 hours) at 01/01/18 1541 Last data filed at 01/01/18 1319 Gross per 24 hour Intake 1298 ml Output 2000 ml Net -702 ml Last Bowel Movement Date: 12/29/17 Lab: Results for orders placed or performed during the hospital encounter of (from the past 24 hour(s)) CBC CELLULAR THERAPEUTICS Collection Time: 01/01/18 6:14 AM # # Low-High White Blood Cells 10.8 4.5 - 11.0 K/UL RBC 3.15 (L) 4.4 - 5.5 M/UL Hemoglobin 10.9 (L) 13.5 - 16.5 GM/DL Hematocrit 34.3 (L) 40 - 50 % MCV 108.8 (H) 80 - 100 FL MCH 34.8 (H) 26 - 34 PG MCHC 32.0 32.0 - 36.0 G/DL RDW 22.8 (H) 11 - 15 % Platelet Count 424 (H) 150 - 400 K/UL MPV 8.3 7 - 11 FL BASIC METABOLIC PANEL CELLULAR THERAPEUTICS Collection Time: 01/01/18 6:14 AM # # Low-High Sodium 136 (L) 137 - 147 MMOL/L Potassium 3.5 3.5 - 5.1 MMOL/L Chloride 97 (L) 98 - 110 MMOL/L CO2 36 (H) 21 - 30 MMOL/L Anion Gap 3 3 - 12 Glucose 110 (H) 70 - 100 MG/DL Blood Urea Nitrogen 14 7 - 25 MG/DL Creatinine 0.45 0.4 - 1.24 MG/DL Calcium 8.7 8.5 - 10.6 MG/DL eGFR Non >60 >60 mL/min eGFR >60 >60 mL/min Physical Exam VS: BP (P) 125/89 | Pulse (P) 104 | Temp 36.6 C (97.8 F) | Ht 182.9 cm ( 72.01") | Wt 74.1 kg (163 lb 4.8 oz) | SpO2 98% | BMI 22.14 kg/m Gen: Alert & Conversant, No Acute Distress HEENT: Normocephalic, atraumatic, sclera anicteric, conjunctiva not injected Neck: Supple, no elevated JVP, chest tube site covered with bandages, no drainage noted Heart: Regular Rate & Rhythm, No Murmur Lungs: Good inspiratory effort , CTAB Abdomen: Soft, non-tender, non-distended, PEG in place Skin: Warm, dry Ext: No edema or erythema noted in b/l lower limbs MS: Proximal muscle weakness stable. Therapy Notes & Labs Reviewed. K GRADER Associated attestation - Sonido Tong MD - 01/02/2018 9:57 PM STOCK GRADER ATTESTATION I personally observed the resident performing the E/M, discussed case with resident, and concur with resident documentation of history, physical assessment and treatment plan unless otherwise noted. On 2L NC and denies pain on medications. Staff name: Sonido Tong MD Date: 01/01/2018 * Lisa Davis - 01/01/2018 12:33 PM STOCK GRADER SPEECH-LANGUAGE PATHOLOGY CLINICAL SWALLOW ASSESSMENT EVALUATION SUMMARY Summary*: Clinical swallow/cognitive assessment completed this date. Results suggest mild oropharyngeal dysphagia. x1 instance of cough following PO trial of thin liquids, though pt noted to have baseline cough (question if cough due to aspiration events vs. Baseline cough). Pt able to independently state previously implemented swallow strategies and demonstrates good insight into purpose of strategies. Cognitive assessment indicates minimal cognitive impairment vs. Normal cognitive functioning; some areas of deficit include recall and reasoning. Pt reports he has not noticed any overt cognitive changes , though does feel as he is generally cognitively slowed due to overall medical course. Prior to admission pt lived with spouse and was independent. Will continue to follow for further assessment to determine if further STATE TROOPER services warranted. No family present at time of evaluation. Swallow guidelines posted in room. Please see details below. RECOMMENDATIONS 1. Continue regular solids and thin liquids with use of compensatory swallow strategies (small bites/sips, slow rate, head turn LEFT with solids/liquids w/ 2 effortful swallows per bolus). *If exhibiting negative pulmonary status changes, please cease PO intake. 2. Medications as tolerated by pt, likely tolerated with thin liquids. 3. Excellent oral care to reduce risk of aspirated bacteria from oral cavity (2- 3x/daily). Oral Stage Summary*: Oral stage appeared WNL. Trials of thin liquids and regular solids provided. Noram withdraw, formaton, mastication and transfer. Do no anticipate presence of premature spillage. Pharyngeal Stage Summary*: Suspect timely swallow initiation with adequate laryngeal elevation. Overt cough appreciated x1 following thin liquid trial, though question if due to aspiration event vs. baseline cough. Swallow Recommendations* PO: Regular, Thin Liquids Swallow Strategies: Small Bites/Sips, Slow Rate of Intake, Head Turn Left, Multiple Swallows Plan: Continue Treatment Daily. Prognosis: Fair, Good NOMS Dysphagia Ratin-Minimal Dysphagia -Swallow safe, pt eats/drinks indep, may require min cues. Usually self-cues when difficulty occurs. May need to avoid specific food items (e.g., popcorn & nuts) or need more time (due to dysphagia). Results Reported to Physician: Yes COGNITION Prognosis: Good Plan: Continue Treatment Daily. Results Reported to Physician: Yes PRAGMATICS Comments*: Pragmatics WNL. BEHAVIOR Comments*: Behavior WNL. AUDITORY COMPREHENSION Comments*: WNL. Y/N questions: ORIENTATION Comments*: Pt oriented to person, place, time sutiation, and insight into deficits. AUDITORY ATTENTION/WORKING MEMORY Comments*: Minimal deficits. Digits forward: up to 6, digits reversed: up t 5. Counting by intervals: . Immediate three word recall: 3/3 with no need for repetitions. Three word recall after 3 minute delay: 0/3 independently, 2/3 with category cue, 1/3 with multiple choice cue. Recall after 20 minutes: 3/3 independently PIPE: 08/21, counting backwards 20-1: 100%, TALITA reversed: 01/26, AUDITORY MEMORY/SUSTAINED ATTENTION Comments*: WFL. Paragraph 19 word: 2/2, 24 word: 3/3, 48 word: 4/4, 57 word: 4/5 NEW LEARNING: Comments*: Not assessed this date. SEQUENCING/ORGANIZATION Comments*: WNL. Word fluency concerete: 19 words (15=WNL), word fluency abstract : 19, total=38 (21-25=WNL). PROBLEM SOLVING Comments*: Pt demonstrates good verbal problem solving skills and thought flexibility REASONING Comments*: Minimal deficits. Divergent: concete 3/3, mid level: /3, abstract: /3. Inducative reasonin/ MATH/MONEY SKILLS Comments*: WNL. Math story problems: /, time concepts: /3 VISUAL PERCEPTUAL Comments*: Readin/10, no scanning deficits observed. Objective Mr. Darrius Salas is a 62 yo M with PMH COPD on 2-3L QHS, tobacco use , afib on xarelto, CAD s/p PCI (2012) [...] volume overload, dysphagia requiring PEG placement, thoracentesis s/ p chest tube placement. He now presents to IRF with debility warranting PT/OT/ STATE TROOPER therapies. Today he is in good spirits, states his pain is his biggest concern from his sternal fracture. Reports he has some SOB and believes its because he cannot clear his throat from the pain. Denies vomiting but did have some nausea yesterday. Reports history of shoulder injury bilaterally. Also reports arthritis that causes his legs to give out occasionally. Denies lightheadedness , numbness, tingling. Reports daily BM without incontinence. Reports urinary continence as well. He lives in a house with his in [place], [place]. He has 5 SOLA but no stairs inside (other than to basement which he doesn't go down to. ) No assisted devices used prior to hospital stay. CHEST SINGLE VIEW: IMPRESSION 1. Similar patchy bilateral opacities, greater on the right with intrinsic lucencies, possibly bullae or cavitation related to necrotizing pneumonia. 2. Trace bilateral pleural effusions, greater on the right. Lives With: Significant Other Receives Help From: None Needed Vocational: On Disability Psychosocial Status: Willing and Cooperative to Participate Persons Present: None Subjective* Pain: Patient complains of pain, 6/10 Trach Presence: No Feeding Tube Present During Eval: (PEG) Nutrition* Nutrition Prior To Hospitalization: Regular, Thin Liquids Current Form Of Nutrition: Regular, Thin Liquids, PEG Oral Mech Exam Oral Mech WFL*: Yes Oral Mech Exam Summary*: Strong throat clear, pt does report some difficulty coughing due to rib pain from CPR. Swallow Strategies Multiple Swallows: Effective Head Turn Left: Effective ORAL MECH EXAM Oral Mech WFL*: Yes Oral Mech Exam Summary*: Strong throat clear, pt does report some difficulty coughing due to rib pain from CPR. Education* Persons Educated: Pt/Family Barriers To Learning: None Noted Interventions: Staff Educated, Repetition of Instructions Teaching Methods: Verbal, Demonstration Topics: Dysphagia, Memory Patient Response: Verbalized Understanding Speech Shelter Goals STATE TROOPER Fre[employer] Goals: Yes Other Shelter Goals: Pt will participate in further assessment of higher level cognition. Speech Short Term Goals Dysphagia: Yes Will tolerate current diet without signs of aspiration: 100% accuracy, Minimal cues Therapist:Lisa RICHARDSONL/STATE TROOPER Voalte: [phone] Weekend Salad Bar Clerk Pager: [phone] Date:01/01/2018 K GRADER * Kary Hamm RN - 01/01/2018 6:58 AM STOCK GRADER Heart Failure Nursing Progress Note Admission Date: 12/31/2017 LOS: 1 day Admission Weight: 74.3 kg (163 lb 12.8 oz) Most recent weights (inpatient): Vitals: 12/31/17 1320 01/01/18 0557 Weight: 74.3 kg (163 lb 12.8 oz) 74.1 kg (163 lb 4.8 oz) Weight change from previous day: - 0.2 kg Fluid restriction ordered: no Intake/Output Summary: (Last 24 hours) Intake/Output Summary (Last 24 hours) at 01/01/18 0659 Last data filed at 01/01/18 0657 Gross per 24 hour Intake 1790 ml Output 1900 ml Net -110 ml Is patient incontinent no Anticipated discharge date: TBD Discharge goals: back to indepedent Daily Assessment of Patient Stated Goals: Short Term Goal Identified by patient (Short Term=during hospitalization): Pain management K GRADER * Prashanth Saxena RT - 12/31/2017 6:31 PM STOCK GRADER RT Adult Assessment Note NAME:Darrius Salas :1955 AGE: 62 y.o. ADMISSION DATE: 12/31/2017 DAYS ADMITTED: LOS: 0 days RT Treatment Plan: Protocol Plan: Medications Albuterol/Ipratropium: Neb PRN Protocol Plan: Procedures Oxygen/Humidity: O2 to keep SpO2 > 92% Monitoring: Pulse oximetry BID & PRN Vital Signs: Pulse: Pulse: 90 RR: Respirations: 18 PER MINUTE SpO2: SpO2: 96 % O2 Device: $$ O2 Device: Cannula Liter Flow: O2 Liter Flow: 2 lpm O2%: Breath Sounds: All Breath Sounds: Clear (implies normal);Decreased Respiratory Effort: Respiratory Effort: Non-Labored K GRADER * Jase Cardenas RN - 12/31/2017 3:50 PM STOCK GRADER Pt A&Ox4. Pt ID band verified with patient. Profile completed, Fall risk in place, care plan/education updated, call light within reach K GRADER * Jade Forbes RN - 12/31/2017 1:30 PM STOCK GRADER Patient arrived to Rehab 2216 @ this time via stretcher via [facility]. Patient on 2L NC. Patient moved from stretcher to bed x 4 assist pull transfer. Patient skin and full assessment complete and charted, see doc flow sheet for details. VSS. Patient oriented to room and POC. Fall risk precautions in place and call light within reach. Will cont to monitor. K GRADER in this encounter H&P Notes * Beatriz Ortiz MD - 12/31/2017 1:24 PM STOCK GRADER Physical Medicine & Rehabilitation Post-Admission Physician Evaluation Date of Service: 01/01/2018 Darrius Salas is a 62 y.o. male. : 1955 Insurance: Medicare Date of Admission: 12/31/2017 Rehabilitation Medicine Attending Physician Attestation: I personally performed gaytan portions of the history and exam. I discussed the case with the resident and concur with the resident's documentation of history, physical assessment and treatment plan unless otherwise noted. Current Level of Function: The most recent therapy notes dated 12/30/17 are outlined in the residents H& P. Per rehab nursing, the patient required mod assist to transfer into bed upon arrival to the rehabilitation unit. Upon my exam, the patient required mod assist for bed mobility, communication was intact, and ability to follow commands was intact. Neurologic exam is notable for the following: proximal weakness. Relevant change since pre-admission screening: I have compared this to the Pre-admission Screen, and a summary of my additional findings is above. This is not a relevant change in medical or functional status from the Pre-admission Screen, affecting the Rehab Plan of Care in the following ways: commence IRF program. This patient meets medical necessity requiring the intensity of therapy available at the [facility]. The patient can participate in and can fully benefit from the services offered in the inpatient rehabilitation facility setting including 24 hour rehabilitation nursing, daily oversight from the Surveyor Hydrographic, and complex interdisciplinary rehab as noted below. This patients acute medical issues including the following list of active comorbidities and risk of medical complications put them at higher risk for recurrence or hospital readmission without daily physician medical management, which requires an IRF level of care and cannot be met at a lower level of care. Active Comorbidities/Risk of Medical Complications: Respiratory distress: Secondary to pneumonia. Patient was ventilated multiple times during hospital stay. Patient has required the use of oxygen supplementation Patient current oxygen saturation is WNL with 2-3 liters of oxygen via nasal cannula. Continue to monitor and manage. Patient encouraged to mobilize as able and utilize incentive spirometer every hour while awake. Risk for Pneumonia: secondary to decreased mobility and pain- Staff will encourage patient to utilize their incentive spirometer every 1 hour while awake. Atrial fibrillation: Patient is at risk for recurrent atrial fibrillation with RVR, other tachyarrhythmias, embolism, and stroke. Will continue to monitor and manage. CHF: Patient is at risk for volume overload, acute respiratory failure, over diuresis, and other cardiac events. Ongoing assessment of patient's respiratory and volume status, especially during therapies. Check daily weights while in rehab. COPD: Patient is at risk for dyspnea, increased work of breathing, increased oxygen needs, and acute respiratory failure. Ongoing assessment of patient's respiratory status, especially during therapies and use supplemental O2 as needed. Continue inhalers/nebulizer treatments per RT. Hypertension: Patient is at risk for hyper/hypotension during aggressive mobilization program with therapies, and requires daily physician monitoring and adjustment of medications. Will continue to monitor and manage for optimal blood pressure control and resume home medications as able. Hyperlipidemia: Will continue to monitor and manage, and adjust medications as needed. Wound care: Patient is at risk for worsening wound, wound infection, osteomyelitis or cellulitis and needs ongoing rehabilitation nurse management and assessment. Nursing to assess each shift. Risk for skin breakdown: secondary to decreased movement - Encourage and assist patient with mobility every two hours. Thrombocytosis: Patient is at a greater risk for blood clots and needs daily physician monitoring of labs and DVT prevention. Will encourage patient to mobilize frequently with staff assistance. Hyponatremia: Patient is at risk for worsening electrolyte imbalance and will require physician monitoring of labs and adjustments to medications and fluid intake. Will continue to monitor and manage, as this may affect patient' s cognitive status. Decreased endurance: Patient is having concerns of decreased endurance which can affect their ability to actively participate in therapies. Patient will work with the Rehab team to establish a plan that best meets there tolerance for therapies while achieving the success of rehab recovery Dysphagia: Currently tolerating regular diet. Dysphagia puts him at risk for aspiration and pneumonia. Aspiration precautions in place. Muscle weakness: Patient has demonstrated muscle weakness in the UE/LE, based upon the rehab consult physical examination. Patient would continue to work with PT/OT to improve strength in order to prevent falls and other injuries. Please see resident's note below for detailed management of medical comorbidities. Prior Level of Function Self-Care/ADLs: Independent with homemaking w/ ambulation;Independent with ADLs [...] home. (2017 10:00 AM) Support System: Spouse, Rachle (retired); sons and [id number] Other DME: CPAP Rehabilitation Plan Patient will receive Physical therapy, Occupational therapy and Speech therapy each 60 minutes a day, 5 days a week for a total of 3 hours daily (minimum) for the duration of the rehabilitation stay within an interdisciplinary rehabilitation program with case picker/family welfare social work professor, therapeutic recreation specialist, neuropsychologist, rehab nursing and PM&R oversight. Rehabilitation Prognosis: Fair Medical Prognosis: The patient is deemed medically stable to tolerate, benefit from, and participate in [facility] level services. Tolerance for three hours of therapy a day: Fair- Patient has participated well with therapies and is anticipated to tolerate 3 hours of therapy per day, as required. Goals/Barriers/Facilitators Family / Patient Goals: return home with family assistance Mobility Goals: Overall goal is Minimum assistance and Physical Therapy will evaluate and treat ambulation/wheelchair use and bed transfers Activities of Daily Living (ADLs) Goals: Overall goal is Minimum assistance and Occupational therapy will evaluate and treat basic Activities of Daily Living Cognition / Communication Goals: Overall goal is Modified independent and Speech therapy will evaluate and treat cognition and communication deficits and assess for safe swallow Barriers & Interventions: Caregiver Apprehension: Arrange caregiver support and discuss barriers and patient progress with caregivers when appropriate. Functioning at Wheelchair Level: Adaptive equipment, create wide,/clear paths, home modifications, alternative transportation arrangements, vehicle modifications, pursue home ramp access, and remove home obstacles. High [place] of Care: Initiate interdisciplinary rehabilitation to improve functional independence and reduce burden of care. Home Accessibility: Work with family to obtain home measurements of doorways, bathroom access, and stair set-up to plan for appropriate adaptive equipment and home modifications as necessary. Inaccessible Transportation: Alternative transportation arrangements and/or vehicle modifications. Medication Education: Pharmacist and nursing staff to provide education to patient and family regarding medication side effects, special precautions, and safe administration. Poor Strength / Endurance: Patient will continue to work with intense physical and occupational therapy to gain strength and endurance for a safe discharge to home. Facilitators: good family / social support, patient motivation and improving medical condition Discharge Planning Expected Length of Stay: 21-24 days Expected Discharge Disposition: Home Expected Discharge Needs: PT, OT, STATE TROOPER and Nursing. Patient will likely benefit from a wheelchair, ramp, shower chair/tub transfer bench, handheld shower head [...] rehabilitation unit. The patient was seen on 12/31/17 at 3:40PM. This is a late entry for E/M services provided on 12/31/17. The note was delayed in entry due to a medical emergency. Beatriz Ortiz MD Physical Medicine & Rehabilitation History & Physical Note Date of Service: 12/31/2017 Darrius Salas is a 62 y.o. male. : 1955 Primary Insurance: MEDICARE Secondary Insurance: [place] MEDICAID Tertiary Insurance: Financial Class: Medicare Date of Admission: 12/31/2017 Precautions: Fall, . Weight bearing Precautions: None Active Problems Principal Problem: Debility Active Problems: CHF (congestive heart failure) (HCC) CAD (coronary artery disease) AF (atrial fibrillation) (HCC) jail current use of anticoagulant COPD (chronic obstructive pulmonary disease) (HCC) HTN (hypertension) HLD (hyperlipidemia) Alcohol abuse Tobacco abuse S/P ablation of atrial fibrillation Pneumonia Respiratory failure, [id number] (HCC) Cytomegalovirus (CMV) viremia (HCC) Impaired mobility and activities of daily living Assessment & Plan Darrius Salas is a 62 y.o. male admitted to [facility] on 12/31/2017 with the following issues: debility due to respiratory failure Dysphagia, pain, weakness, wounds Impairments: pain, poor activity tolerance and weakness Activity Limitations: eating, dressing - lower, toileting, transfers, ambulation and stairs Participation Restrictions: unable to return home safely Rehabilitation Plan Patient will be admitted to inpatient rehabilitation for comprehensive therapies to include Physical therapy, Occupational therapy and Speech therapy Rehabilitation Prognosis: Good . Tolerance for three hours of therapy a day: Good Goals/Barriers/Facilitators Family / Patient Goals: return home with family supervision Mobility Goals: Overall goal is Modified independent Activities of Daily Living (ADLs) Goals: Overall goal is Modified independent Cognition / Communication Goals: Overall goal is Modified independent and Speech therapy will evaluate and treat cognition and communication deficits and assess for safe swallow Barriers & Interventions: Caregiver Apprehension: Arrange caregiver support and discuss barriers and patient progress with caregivers when appropriate. High [place] of Care: Initiate interdisciplinary rehabilitation to improve functional independence and reduce burden of care. Medical Education: Pharmacist and nursing staff to provide education to patient and family regarding medication side effects, special precautions, and safe administration. Poor Strength / Endurance: Patient will continue to work with intense physical and occupational therapy to gain strength and endurance for a safe discharge to home. Uncontrolled Pain: Continue to address aggressive pain regimen in order to transition patient safely home. Facilitators: good home setup, good family / social support, patient motivation , improving strength / endurance and improving medical [...] placement, thoracentesis s/p chest tube placement. He now presents to IRF with debility warranting PT/OT/STATE TROOPER therapies. Debility secondary to acute on chronic hypoxic respiratory failure Legionella pneumonia (PNA), invasive necrotizing aspergillosis PNA, BAL with positive HSV & CMV PNA Generalized weakness Decreased endurance Impaired mobility and ADLs - Baseline O2 2-3 L QHS, currently tolerating 2L NC - s/p x3 intubation/extubations - s/p PEA arrest (extubated 11/24) - s/p treatment with linezolid, zosyn - Immunology followed across [facility] for multiple opportunistic infxs > ID consulted for continuation of care > CMV quant-blood every Wednesday , CMP every Wednesday > Continue antibiotics including micafungin IV, Cresemba 372mg QD, valganciclovir 900mg BID > Can likely stop micafungin at discharge, will continue at least 3 months cresemba > Continue pulmonary hygiene with Aerobika and IS > Consult PT/OT Right sided pleural effusion COPD - on 2-3L QHS at baseline - s/p RR 12/16 for incr 02 requirement, thoracentesis 1800cc exudative fluid - s/p chest tube removal 12/29 > Continue albuterol nebs Q4H PRN, atrovent nebs Q4H PRN > Continue lasix 60mg BID, guaifenesin 100mg Q4H > Leave pressure bandage in place for 1-2 more days then replacing with regular dressing and monitor for fluid output Paroxysmal Atrial Fibrillation with RVR CAD s/p PCI 03/2012 Chronic HFpEF - s/p ablation 2013 - Failed cardioversion at OSH - Previously on amiodarone, d/c'd due to LFTs > Continue lasix 60mg BID, digoxin 250mcg QD, metoprolol 12.5mg BID, and xarelto 20mg QD > Continue daily weights Elevated Alk phos/LFTs, improving - GI consulted across [facility] - 12/20/17: CT A/P w/ contrast without inflammatory mass, ascites, or bowel obstruction. However, fusiform infrarenal abdominal aortic aneurysm measuring up to 4.9 cm in maximum diameter. > Continue nutritional support > Consult hepatology if any issues arise or Alk phos does not improve > CMP every Wednesday > F/u in hepatology clinic on discharge Dysphagia- improved to resolved > Continue condensed nocturnal feeds > Continue cardiac solids/thin liquids > Consult dietitian and STATE TROOPER Macrocytic anemia, stable, CTM with CBC Sleep disturbance: melatonin 5mg QHS PRN Pain Management: Tylenol PRN and lidocaine patches, oxycodone 5mg Q3Hr Skin: There is / are 1 pressure sore(s) including coccyx/buttocks. Continue vit a & d ointment Bowel: continent of bowel Bladder: continent of bladder, BVIs x3 until <125ml and ISC for >300ml Nutrition: Current diet: cardiac diet Feeding tube: Nocturnal compressed feeds of Nutren 2.0 at 55ml/hr x 12hrs, continue vit C, Vit D, thiamine, multi Calorie count in place Mental Health: consult neuropsychology to provide support / counseling DVT Prophylaxis: Xarelto} Code status: DNAR-FI (no CPR or intubation) History of Present Illness Hospital Course: Mr. [...] placement, thoracentesis s/p chest tube placement. He now presents to IRF with debility warranting PT/OT/STATE TROOPER therapies. Today he is in good spirits, states his pain is his biggest concern from his sternal fracture. Reports he has some SOB and believes its because he cannot clear his throat from the pain. Denies vomiting but did have some nausea yesterday. Reports history of shoulder injury bilaterally. Also reports arthritis that causes his legs to give out occasionally. Denies lightheadedness , numbness, tingling. Reports daily BM without incontinence. Reports urinary continence as well. He lives in a house with his in [place], [place]. He has 5 SOLA but no stairs inside (other than to basement which he doesn't go down to. ) No assisted devices used prior to hospital stay. 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 Godfrey. Past Surgical History Past Surgical History: Procedure Laterality Date CARDIOVERSION CORONARY STENT PLACEMENT Family\\Social History Social History Social History Marital status: Spouse name: N/A Number of children: N/A Years of education: N/A Social History Main Topics Smoking status: Current Every Day Smoker Packs/day: 0.25 Years: 30.00 Types: Cigarettes Smokeless tobacco: Former User Types: Chew Alcohol use Yes Comment: 6 per week Drug use: No Sexual activity: Not on file Other Topics Concern Not on file Social History Narrative No narrative on file No family history on file. Medications: Current Facility-Administered Medications: acetaminophen (TYLENOL) tablet 650 mg, 650 mg, Oral, Q4H PRN, Nela Santoro MD albuterol 0.5% (PROVENTIL; VENTOLIN) nebulizer solution 2.5 mg, 2.5 mg, Inhalation, Q4H PRN, Nela Santoro MD [START ON 01/01/2018] ascorbic acid (VITAMIN C) tablet 500 mg, 500 mg, Oral , QDAY, Nela Santoro MD [START ON 01/01/2018] cholecalciferol (VITAMIN D-3) tablet 400 Units, 400 Units, Oral, QDAYMaude Lauren, MD dextran 70/hypromellose (GENTEAL TEARS; BION TEARS) ophthalmic solution 1 drop, 1 drop, Both Eyes, Q6H PRN, Nela Santoro MD [START ON 01/01/2018] digoxin (LANOXIN) tablet 250 mcg, 250 mcg, Oral, QDAY Maude Lauren, MD [START ON 01/01/2018] fluticasone (FLONASE) nasal spray 2 spray, 2 spray, Each Nostril, Maude JEREZ Lauren, MD furosemide (LASIX) tablet 60 mg, 60 mg, Oral, BID(-17), Nela Santoro MD guaiFENesin (ROBITUSSIN) oral solution 100 mg, 100 mg, Oral, Q4H, Nela Santoro MD ipratropium bromide (ATROVENT) 0.02 % nebulizer solution 0.5 mg, 0.5 mg, Inhalation, Q4H PRN, Nela Santoro MD isavuconazonium sulfate (CRESEMBA) capsule 372 mg, 372 mg, Oral, QDAY(21), Nela Santoro MD [START ON 01/01/2018] lidocaine (LIDODERM) 5 % topical patch 1-2 patch, 1- 2 patch, Topical, Q24H*, Nela Santoro MD melatonin tablet 5 mg, 5 mg, Oral, QHS PRN, Nela Santoro MD metoprolol tartrate (LOPRESSOR) tablet 12.5 mg, 12.5 mg, Oral, BID, Nela Santoro MD micafungin (MYCAMINE) 150 mg in sodium chloride 0.9% (NS) 110 mL IVPB, 150 mg, Intravenous, Q24H*, Nela Santoro MD oxyCODONE (ROXICODONE, OXY-IR) tablet 5 mg, 5 mg, Oral, Q3H PRN, Nela Santoro MD pancrelipase 20,000 Units/ sodium bicarbonate 650 mg(#) (KU CLOG DESTROYER ) for occluded feeding tube cap 1 capsule, 1 capsule, Feeding Tube, PRN (Salad Bar Clerk from Rx), Nela Santoro MD phenol (CLORASEPTIC; PHENASEPTIC) spray 2 spray, 2 spray, Mouth/Throat, PRN , Nela Santoro MD [START ON 01/01/2018] rivaroxaban (XARELTO) tablet 20 mg, 20 mg, Oral, QDAY w/breakfast, Nela Santoro MD [START ON 01/01/2018] thiamine mononitrate tablet 100 mg, 100 mg, Oral, QDAY, Nela Santoro MD [START ON 01/01/2018] valGANciclovir (VALCYTE) tablet 900 mg, 900 mg, Oral , BID w/meals, Nela Santoro MD [START ON 01/01/2018] vitamin A & D topical ointment, , Topical, Maude JEREZ Lauren, MD [START ON 01/01/2018] vitamins, multi w/minerals tablet 1 tablet, 1 tablet , Oral, Maude JEREZ Lauren, MD Allergies: No Known Allergies Prior Level of Function Self-Care/ADLs: Overall goal is Independent Mobility: Overall goal is Independent Work/Personal Responsibilities/Hobbies: Disability for COPD, playing golf, pretty sedentary Home EnvironmentHome Situation: Lives with Family (12/30/2017 10:00 AM) Patient Owned Equipment: None (12/30/2017 10:00 AM) Type of Home: House (12/30/2017 2:00 PM) Entry Stairs: 3-5 Stairs;Rail on 1 Side (12/30/2017 10:00 AM) In-Home Stairs: Able to Live on One Level (12/30/2017 10:00 AM) Comments: Family is planning to build a bathroom on main level of home. (2017 10:00 AM) No Data Recorded Other DME: None Support System: Family Current Level of Function Physical Therapy: 12/30/17 "GAIT: Gait Distance: (4-5 steps with transfer to wheelchair) Gait: Assistance Level: Moderate Assist;x2 People Gait: Assistive Device: Hand Hold Assist" Occupational Therapy: 12/30/17: "ADL's Where Assessed: Edge of Bed Equipment Provided: Post Manager;Sock Aid Grooming Assist: Stand By Assist Grooming Deficits: Setup;Wash/Dry Face;Teeth Care LE Dressing Assist: Maximum Assist LE Dressing Deficits: Don/Doff R Sock;Use of Adaptive Equipment Functional Transfer Assist: Moderate Assist Functional Transfer Deficits: Steadying;Increased Time to Complete Comment: Patient required min assist for supine to sit transfer. Able to sit on edge of bed with supervision to complete grooming tasks with setup. After skilled demonstration of use of AE for LE dressing, patient able to demonstrate understanding and doff and don R sock. Patient returned to supine with moderate assist for B LE management. " Speech Therapy: 12/31/17: "RECOMMENDATIONS 1. Continue regular solids and thin liquids with use of compensatory swallow strategies (small bites/sips, slow rate, head turn LEFT with solids/liquids w/ 2 effortful swallows per bolus). *If exhibiting negative pulmonary status changes, please cease PO intake. 2. Medications as tolerated by pt, likely tolerated with thin liquids. 3. Excellent oral care to reduce risk of aspirated bacteria from oral cavity (2- 3x/daily). 4. This department will continue to follow for ongoing diet check and to address cognitive goals. 5. Pt would benefit from ongoing speech services at the next level of care." Review of Systems A 14 point review of systems was negative except for: pertinent positives listed in HPI Physical Exam BP: 125/86 (12/31 1320) Temp: 36.9 C (98.4 F) (01/01 1320) Pulse: 99 (01/01 1320) Respirations: 20 PER MINUTE (01/01 1320) SpO2: 94 % (01/01 1320) O2 Delivery: Nasal Cannula (01/01 1320) Height: 182.9 cm (72.01") (01/01 1320) Body mass index is 22.21 kg/m. Gen: Alert & Oriented X 3, No Acute Distress HEENT: NCAT, PERRL, EOMI, MMM, chest tube site covered with bandages, no drainage noted Neck: Supple, no elevated JVP Heart: Regular Rate & Rhythm, no m/g/r Lungs: Clear to auscultation bilaterally, no w/r/r Abdomen: Soft, non-tender, non-distended, +BS, PEG in place Skin: no rashes or lesions noted Ext: no edema or erythema in b/l LE MS: Root Right Left Shoulder Abduction C5 4 4 Elbow Flexion C5 4 4 Elbow Extension C7 4 4 Wrist Extension C6 5 5 Finger Flexion C8 5 5 Finger Abduction T1 5 5 Hip Flexion L2 2 2 Knee Flexion L5/S1 4 4 Knee Extension L3 4 4 Dorsiflexion L4 4 4 Plantarflexion S1 4 4 EHL Extension L5 4 4 Neuro: Cranial Nerves Cranial Nerves 2-12 are grossly intact DTR's No hyperreflexia noted Babinski Plantar Reflex is Downgoing Bilaterally Upper Extremity Tone Normal Lower Extremity Tone Normal Upper Extremity Sensation Intact to light touch bilaterally Lower Extremity Sensation Intact to light touch bilaterally Clonus Negative Bilaterally Proprioception Intact Bilaterally Memory/Cognition/Speech Able to recall events, follow conversation, non-aphasic speech Intake/Output Summary: Intake/Output Summary (Last 24 hours) at 12/31/17 1538 Last data filed at 12/31/17 1400 Gross per 24 hour Intake 572 ml Output 450 ml Net 122 ml Stool Occurrence: 0 (12/30/2017 4:10 AM) Last Bowel Movement Date: 12/29/17 (12/31/2017 1:30 PM) Bladder Scan (mL): 245 milliliters (11/22/2017 4:30 PM) No Data Recorded No Data Recorded No Data Recorded Oral Diet Order: Cardiac (12/31/2017 10:00 AM) Basic Metabolic Profile Lab Results Component Value Date/Time NA 137 12/31/2017 05:00 AM K 3.6 12/31/2017 05:00 AM CA 8.4 (L) 12/31/2017 05:00 AM CL 98 12/31/2017 05:00 AM CO2 33 (H) 12/31/2017 05:00 AM Lab Results Component Value Date/Time BUN 13 12/31/2017 05:00 AM CR 0.39 (L) 12/31/2017 05:00 AM GLU 112 (H) 12/31/2017 05:00 AM CBC w/Diff Lab Results Component Value Date/Time WBC 10.5 12/31/2017 05:00 AM RBC 3.13 (L) 12/31/2017 05:00 AM HGB 11.0 (L) 12/31/2017 05:00 AM HCT 33.2 (L) 12/31/2017 05:00 AM MCV 106.2 (H) 12/31/2017 05:00 AM MCH 35.1 (H) 12/31/2017 05:00 AM RDW 24.1 (H) 12/31/2017 05:00 AM PLTCT 452 (H) 12/31/2017 05:00 AM MPV 8.3 12/31/2017 05:00 AM Lab Results Component Value Date/Time NEUT 72 12/28/2017 03:50 AM ANC 7.60 (H) 12/28/2017 03:50 AM LYMA 15 (L) 12/28/2017 03:50 AM ALC 1.60 12/28/2017 03:50 AM YOGI 9 12/28/2017 03:50 AM AMC 0.90 (H) 12/28/2017 03:50 AM EOSA 4 12/28/2017 03:50 AM AEC 0.40 12/28/2017 03:50 AM BASA 0 12/28/2017 03:50 AM ABC 0.00 12/28/2017 03:50 AM Radiology: - 12/31/17 CXR shows no noticeable change in pleural effusion - 12/24/17 AP Abdomen: Continued moderate distention of the stomach. No radiographic evidence of small bowel obstruction. See same day chest radiograph for thoracic findings. K GRADER in this encounter Consult Notes * Mallory Diane RN - 01/11/2018 11:22 AM STOCK GRADER Associated Order(s): CONSULT WOUND/OSTOMY TEAM NURSE; CONSULT WOUND/OSTOMY TEAM NURSE Wound Ostomy Nursing Consult Service NAME:Darrius Salas :1955 AGE: 62 y.o. 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 Yes 12/30/2017 4:15 PM Wound Base Assessment Dry;Red;[place] 01/11/2018 11:18 AM Surrounding Skin Assessment Dry;Intact 01/11/2018 11:18 AM Wound Site Closure None 01/11/2018 11:18 AM Wound Drainage Amount None 01/11/2018 11:18 AM Wound Drainage Description Serous 12/12/2017 8:00 PM Wound Dressing Status Changed 01/11/2018 11:18 AM Wound Dressing and / or Treatment Silver Gel;Foam (Biatain) 01/11/2018 11:18 AM Wound Length (cm) 1 cm 01/11/2018 11:18 AM Wound Width (cm) 2 cm 01/11/2018 11:18 AM Wound Depth (cm) 0.1 cm 01/11/2018 11:18 AM Wound Surface Area (cm^2) 2 cm^2 01/11/2018 11:18 AM Wound Volume (cm^3) 0.2 cm^3 01/11/2018 11:18 AM Wound Status (Wound Team Only) Being Treated 01/11/2018 11:18 AM Number of days: 54 Wounds (NOT for Pressure Injuries) 01/11/18 1116 Left;Posterior Hand Skin Tear ( Active) 01/11/18 1116 Hand Wound Orientation: Left;Posterior Wound Type: Skin Tear Wound Type:: Wound Description (Comments): Wound Base Assessment Moist;Red 01/11/2018 11:18 AM Surrounding Skin Assessment Dry;Intact;Purple 01/11/2018 11:18 AM Wound Site Closure None 01/11/2018 11:18 AM Wound Drainage Amount Small 01/11/2018 11:18 AM Wound Drainage Description Serosanguineous 01/11/2018 11:18 AM Wound Dressing Status Changed 01/11/2018 11:18 AM Wound Dressing and / or Treatment Restore Silver Contact Layer;Foam (Biatain) 11:18 AM Wound Length (cm) 1 cm 01/11/2018 11:18 AM Wound Width (cm) 1 cm 01/11/2018 11:18 AM Wound Depth (cm) 0.1 cm 01/11/2018 11:18 AM Wound Surface Area (cm^2) 1 cm^2 01/11/2018 11:18 AM Wound Volume (cm^3) 0.1 cm^3 01/11/2018 11:18 AM Number of days: 0 Wounds (NOT for Pressure Injuries) 01/11/18 1117 Left;Posterior Wrist Skin Tear (Active) 01/11/18 1117 Wrist Wound Orientation: Left;Posterior Wound Type: Skin Tear Wound Type:: Wound Description (Comments): Wound Base Assessment Moist;Red 01/11/2018 11:18 AM Surrounding Skin Assessment Dry;Intact;Purple 01/11/2018 11:18 AM Wound Site Closure None 01/11/2018 11:18 AM Wound Drainage Amount Scant 01/11/2018 11:18 AM Wound Drainage Description Serosanguineous 01/11/2018 11:18 AM Wound Dressing Status Changed 01/11/2018 11:18 AM Wound Dressing and / or Treatment Restore Silver Contact Layer;Foam (Biatain); Transparent (Tegaderm) 01/11/2018 11:18 AM Wound Length (cm) 1 cm 01/11/2018 11:18 AM Wound Width (cm) 1 cm 01/11/2018 11:18 AM Wound Depth (cm) 0.1 cm 01/11/2018 11:18 AM Wound Surface Area (cm^2) 1 cm^2 01/11/2018 11:18 AM Wound Volume (cm^3) 0.1 cm^3 01/11/2018 11:18 AM Number of days: 0 Buttocks with brawny, blanchable intact skin with dry flaking skin on surface. No signs of DTI identified at this time. Pt with nearly healed wound on left thigh where scab lifted off skin today. Left hand and wrist with new skin tears. RECOMMEND: Coccyx/Buttocks - - Vitamin A&D ointment over skin BID and PRN to donate moisture to skin. Left thigh - - Clean wound with saline and gauze. - Apply Silver Gel over wound base then cover with Biatain Silicone foam dressing. - Change q48 hrs by bedside RN. Left hand/wrist - - Clean with saline and gauze. - Place Soraida Restore Silver contact layer over each wound base then cover with 1/2 of small Biatain foam dressing. - Secure with tegaderm dressing. - Change q72 hrs until wound has healed, then dressings can be discontinued. Our service will sign off at this time. Thank you. Mallory Diane RN, BSN, ON Wound/Ostomy Nursing Consult Service Office: [phone] Pager: [phone] Wound/Ostomy Team Pager (After Hours/Weekends): [phone] K GRADER * Caryn Farah MD - 01/04/2018 7:49 AM STOCK GRADER Infectious disease initial consult Note Admission Date: 12/31/2017 LOS: 4 days Reason for Consult: aspergillosis Consult type: Opinion with orders Active Hospital Problems Diagnosis Debility Cytomegalovirus (CMV) viremia (HCC) Impaired mobility and activities of daily living Pneumonia Respiratory failure, vmkps-bx-hwgavrh (HCC) S/P ablation of atrial fibrillation 05/04/[address] ablation [address] Dr[address] Godfrey. CHF (congestive heart failure) ([facility]) CAD (coronary artery disease) 03/18/2012 - Cardiac Catheterization: PTCA and PCI using 3.0 x 20mm Promus to the midRCA. ([facility]). AF (atrial fibrillation) ([facility]) 03/17/2012 - ECHO: LVEF ~ 25%. LA [...] MR and TR. PAP ~ 40 mmHg. ([facility] jail current use of anticoagulant May 2013: admitted to [facility] for coumadin toxicity and GI bleed- coumadin stopped. 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 and persistent respiratory failure s/p thoracentesis 12/16/17 CMV pneumonitis 12/21/17 Legionella pneumonia, also possible aspiration - At OSH started on Zosyn 10/31, escalated to vancomycin, anidulafungin (unsure what dates added); zosyn switched to meropenem , vanc stopped at some point - negative blood cultures; bronch with MARIALUISA BAL on 11/08 with negative bacterial culture, unsure of fungal culture result - positive legionella urine antigen at CT 11/14: Multifocal right upper lobe consolidation with several air-fluid levels within bullae suggestive of multifocal necrotizing pneumonia. Air-fluid levels may represent infected or hemorrhagic bullae which often requires prolonged antibiotic therapy, similar to treating a pulmonary abscess. - Fungitell 38, Galactomannan 0.052. 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 Not detected on first BAL, virus detected on 12/21/17 BAL. Significant debility PLAN: 1. May not need daily phlebotomy 2. Cont PO valgancyclovir. 3. Will likely need at least 4 more weeks of antiviral therapy. Will recheck CMV in blood next week. 4. Due to transaminitis, and worsening lung disease, changed vori to cresemba+ braden. 5. monitor labs for toxicity. 6. Will plan for repeat CT chest at least [address] or PRN 7. Will follow. Mr. Salas has complex disease requiring complex medical decision making for pneumonia, aspergillosis, therapeutic drug monitoring, resp failure. I reviewed the chart and interviewed and examined the patient and formulated the plan as above. History of Present Illness: Darrius Salas is a 62 y.o. male With invasive aspergillosis, respiratory failure, suspected CMV pneumonitis transferred to inpatient rehab. Darrius is well known to ID from an [...] He remains on antifungal and antiviral treatment. Currently he is on 4L NC. He seems to go from 2-5L NC O2 needs. He is working with therapy. He has remained afebrile and with a RR of 16-20. Counts and Cr remain good. His CMV viremia is improved and only detected <50 IU/ml on . Past Medical History: Diagnosis Date AF (atrial fibrillation) ([facility]) 08/15/2012 CAD (coronary artery disease) 08/15/2012 CHF (congestive heart failure) ([facility]) 08/15/2012 COPD (chronic obstructive pulmonary disease) ([facility]) 08/15/2012 HLD (hyperlipidemia) 08/15/2012 HTN (hypertension) 08/15/2012 LA thrombus 08/15/2012 jail current use of anticoagulant 08/15/2012 S/P ablation of atrial fibrillation 05/04/2013 05/04/13 A fib ablation by Dr. Godfrey. Past Surgical History: Procedure Laterality Date CARDIOVERSION CORONARY STENT PLACEMENT Social History Substance Use Topics Smoking status: Former Smoker Packs/day: 2.00 Years: 30.00 Types: Cigarettes Quit date: 11/30/2017 Smokeless tobacco: Former User Types: Chew Comment: down to 1/4 pack /day or less Alcohol use Yes Comment: 6 per week Family history: Denies Allergies: Patient has no known allergies. Scheduled Meds: albuterol 0.5% (PROVENTIL; VENTOLIN) nebulizer solution 2.5 mg 2.5 mg Inhalation QID & PRN ascorbic acid (VITAMIN C) tablet 500 mg 500 mg Oral QDAY budesonide/formoterol (SYMBICORT HFA) 160/4.5 mcg inhalation 2 puff 2 puff Inhalation BID cholecalciferol (VITAMIN D-3) tablet 400 Units 400 Units Oral QDAY digoxin (LANOXIN) tablet 250 mcg 250 mcg Oral QDAY docusate (COLACE) capsule 100 mg 100 mg Oral BID fluticasone (FLONASE) nasal spray 2 spray 2 spray Each Nostril QDAY furosemide (LASIX) tablet 60 mg 60 mg Oral BID(9-17) guaiFENesin LA (MUCINEX) tablet 600 mg 600 mg Oral BID INHALATIONAL SPACING DEVICE MISC SPCR (Cabinet Override) NOW isavuconazonium sulfate (CRESEMBA) capsule 372 mg 372 mg Oral QDAY(21) lidocaine (LIDODERM) 5 % topical patch 1-2 patch 1-2 patch Topical Q24H* metoprolol tartrate (LOPRESSOR) tablet 12.5 mg 12.5 mg Oral BID micafungin (MYCAMINE) 150 mg in sodium chloride 0.9% (NS) 110 mL IVPB 150 mg Intravenous Q24H* rivaroxaban (XARELTO) tablet 20 mg 20 mg Oral QDAY w/breakfast senna (SENOKOT) tablet 2 tablet 2 tablet [...] Infusions: PRN and Respiratory Meds:acetaminophen Q4H PRN, aluminum/magnesium hydroxide Q4H PRN, bisacodyl QDAY PRN, dextran 70/hypromellose Q6H PRN, melatonin QHS PRN , milk of magnesia (CONC) Q4H PRN, ondansetron Q6H PRN, oxyCODONE Q4H PRN, oxyCODONE QHS PRN, pancrelipase 20,000 Units/ sodium bicarbonate 650 mg(#) PRN ( Salad Bar Clerk from Rx), phenol PRN Review of Systems: +SOB, cough, fatigue, chest pain with deep inspiration and cough. No f/c/ns, FERGUSON , neck pain, abd pain, myalgias, arthralgias. Rest of 14-point ROS negative. Vital Signs: Last Filed in 24 hours Vital Signs: 24 hour Range BP: 129/69 (01/04 443) Temp: 36.3 C (97.3 F) (01/04 443) Pulse: 93 (01/04 443) Respirations: 16 PER MINUTE (01/04 443) SpO2: 98 % (01/04 443) O2 Delivery: Nasal Cannula (01/04 443) BP: (110-129)/(69-87) Temp: [36.3 C (97.3 F)-36.7 C (98.1 F)] Pulse: [83-108] Respirations: [16 PER MINUTE-20 PER MINUTE] SpO2: [93 %-98 %] O2 Delivery: Nasal Cannula Physical Exam: General: Alert, cooperative, no distress Head: Normocephalic, without obvious abnormality, atraumatic Eyes: Conjunctivae/corneas clear. PERRL, EOMs intact. No subconjuntival hemorrhages. Throat: Lips, mucosa and tongue normal. Teeth and gums normal Neck: Supple, symmetrical, trachea midline, no rigidity Lungs: Diminished breath sounds bilaterally, +coarse, +flail chest Chest wall: No tenderness or deformity. Heart: Regular rate and rhythm Abdomen: Soft, non-tender. Bowel sounds normal. No masses. No organomegaly. Extremities: Extremities normal, atraumatic, no cyanosis or edema Skin: Skin color, texture, turgor normal. No rashes or lesions Lymph nodes: Cervical, supraclavicular and axillary nodes normal Neurologic: CNII - XII intact. Normal strength, sensation and reflexes throughout. Spine: No ttp throughout spine Lab/Radiology/Other Diagnostic Tests: Full labs and radiology viewed and reports reviewed. Reviewed Microbiology data from past and present. Caryn Farah MD Infectious Diseases faculty Pager: [phone] K GRADER * Ramon Sinclair MD - 01/03/2018 11:26 PM STOCK GRADER Associated Order(s): CONSULT PULMONARY/CRITICAL CARE PHYSICIAN Pulmonary Medicine Inpatient Consultation Admit Date: 12/31/2017 Date of Service: 01/03/2018 Consult Type: Opinion with orders Reason for Consult: Pulmonary Hygiene/ Secretion Management "multiple types of PNA, S/p intubation x3, PEA arrest multiple fx and pain" Clinical Impression: 1. Multiple Anterior Rib Fractures (non-displaced and mildly dispolaced 2. Sternal Chest Pain worsened with cough 3. . Paradoxical movement of the anteior chest wall 4. Acute on chronic hypoxic respiratory failure 5. Emphysema; Tobacco Dependence (no PFTs on file) 6. Right Pleural Effusion, loculated (improved; drain reported) 7. Recent Septic Shock with polymicrobial Pneumonia - Legionella, C. Glabrata, Necrotizing Aspergillus 8. s/p PEA Arrest 9. Atrial Fibrillation 10. Severe Musculoskeletal Disability and Deconditioning Recommendations: --- Patient's underlying structural lung abnormalities places him at increased risk for colonization of the lungs and subsequent infected bullae, etc, during times of relative immune dysfunction, as happened during his critical illness. --- Aggressive Pulmonary Hygiene to facilitate sufficient clearance of respiratory secretions is paramount for Mr. Salas to continue his recovery in the long-term. Insufficient clearance of his secretions could pose risk for recurrent chest infections, concerning with his low pulmonary reserve. >> Recommend aggressive pulmonary hygiene maneuvers, as ordered: IS, Flutter Valve, Cough-Assist >> Recommend pt sit upright as often as tolerated, ambulate when able, and continue stationary bike >> Encouraged pt to minimize narcotic pain relieves to a dose that allows his to engage in rehab sessions and tolerate Pulm Hygiene maneuvers. He expressed understanding of their cough suppressive effects to avoid. >> Recommend consulting Anesthesia Pain Service for evaluation of potential costochondral block vs. nerve blockade and/or other modalities to diminish Mr. Salas's pain-llmited expectoration. >> Will continue to follow along and assist as able. Ac page *[phone] with additional questions. Pt seen and discussed with Dr. Rodo Sinclair MD Fellow, Pulmonary & Critical Care Pager: [phone] History of Present Illness: Darrius Salas is a 62 y.o. male with a history of COPD with emphysematous blebs, tobacco dependence who was intitally transferred to [facility] in late October for worsening acute on chronic respiratory failure and progression of infectious pneumonitis. He was found to have Legionella and reventually ventilator support. His ICU hospital course was further complicated by the development of AFib w/ RVR, progression to septic shock, BAL Cx (+) Aspergillus , Tamar Glabarta, HSV, CMV in addition to Legionella, and suffered 3 failed extubations, each requiring re-intubation..Additionally, Mr. Salas suffered a PEA arrest thought related to mucus plugging --> hypoxemia. He was resuscitated , stabilized and steadily improved clinically thereafter, with his eventual transfer to Inpatient Rehab. Pulmonary was consulted earlier this month for management of chest drain placed after developing a partially loculated right. ID managing prolonged antimicrobials. Mr. Salas suffered multiple anterior rib fractures during ACLS resuscitative measures. Several of the rib fractures are mildly displaced, per CT chest. He expresses a great deal of anterior sternal pain when coughing up his secretions , limiting his airway clearance. His sputum is no longer green/brownish yellow and has returned to a more whitish yellow color. Is less tenacious and that several weeks ago. Patient utilizes a CoughAssist machine which does create a significant amount of discomfort, but he states he "longoria through it". Symptoms to take as little narcotic medications able, but enough to keep his chest pain from being prohibitive cough. Prior to his prolonged hospitalization , he typically expectorated half a cup of mucus each morning and then had minimal chronic cough thereafter. Pulmonary Medicine was consulted for further evaluation and management of pulmonary hygiene and airway clearance. Review of Systems: A comprehensive 12 point review of systems was negative except for: Significant chest pain with cough, sternal pain with additional change, little muscular skeletal weakness, fatigue, dyspnea on exertion Past Medical History: Diagnosis Date AF (atrial fibrillation) ([facility]) 08/15/2012 CAD (coronary artery disease) 08/15/2012 CHF (congestive heart failure) ([facility]) 08/15/2012 COPD (chronic obstructive pulmonary disease) ([facility]) 08/15/2012 HLD (hyperlipidemia) 08/15/2012 HTN (hypertension) 08/15/2012 [place] thrombus 08/15/2012 jail current use of anticoagulant 08/15/2012 S/P ablation of atrial fibrillation 05/04/2013 05/04/13 A fib ablation by Dr. Godfrey. Past Surgical History: Procedure Laterality Date CARDIOVERSION CORONARY STENT PLACEMENT No family history on file. Social History Social History Marital status: Spouse name: N/A Number of children: N/A Years of education: N/A Social History Main Topics Smoking status: Former Smoker Packs/day: 2.00 Years: 30.00 Types: Cigarettes Quit date: 11/30/2017 Smokeless tobacco: Former User Types: Chew Comment: down to 1/4 pack /day or less Alcohol use Yes Comment: 6 per week Drug use: No Sexual activity: Not on file Other Topics Concern Not on file Social History Narrative No narrative on file Objective: Vital Signs: Last Filed in 24 hours Vital Signs: 24 hour Range BP: 119/80 (01/03 1950) Temp: 36.6 C (97.9 F) (01/03 1950) Pulse: 94 (01/03 2130) Respirations: 16 PER MINUTE (01/03 1950) SpO2: 97 % (01/03 2130) O2 Delivery: Nasal Cannula (01/03 1950) BP: (114-129)/(74-87) Temp: [36.3 C (97.4 F)-36.7 C (98 F)] Pulse: [87-108] Respirations: [16 PER MINUTE-20 PER MINUTE] SpO2: [93 %-99 %] O2 Delivery: Nasal Cannula Body mass index is 22.4 kg/m. No Known Allergies Scheduled Medications: albuterol 0.5% (PROVENTIL; VENTOLIN) nebulizer solution 2.5 mg 2.5 mg Inhalation QID & PRN ascorbic acid (VITAMIN C) tablet 500 mg 500 mg Oral QDAY budesonide/formoterol (SYMBICORT HFA) 160/4.5 mcg inhalation 2 puff 2 puff Inhalation BID cholecalciferol (VITAMIN D-3) tablet 400 Units 400 Units Oral QDAY digoxin (LANOXIN) tablet 250 mcg 250 mcg Oral QDAY docusate (COLACE) capsule 100 mg 100 mg Oral BID fluticasone (FLONASE) nasal spray 2 spray 2 spray Each Nostril QDAY furosemide (LASIX) tablet 60 mg 60 mg Oral BID(9-17) guaiFENesin LA (MUCINEX) tablet 600 mg 600 mg Oral BID INHALATIONAL SPACING DEVICE [facility] [facility] (Cabinet Override) NOW isavuconazonium sulfate (CRESEMBA) capsule 372 mg 372 mg Oral QDAY(21) lidocaine (LIDODERM) 5 % topical patch 1-2 patch 1-2 patch Topical Q24H* metoprolol tartrate (LOPRESSOR) tablet 12.5 mg 12.5 mg Oral BID micafungin (MYCAMINE) 150 mg in sodium chloride 0.9% (NS) 110 mL IVPB 150 mg Intravenous Q24H* rivaroxaban (XARELTO) tablet 20 mg 20 mg Oral QDAY w/breakfast senna (SENOKOT) tablet 2 tablet 2 tablet [...] Oral QDAY Continuous Infusions: PRN and Respiratory Meds: acetaminophen Q4H PRN, aluminum/magnesium hydroxide Q4H PRN, bisacodyl QDAY PRN, dextran 70/hypromellose Q6H PRN, melatonin QHS PRN , milk of magnesia (CONC) Q4H PRN, ondansetron Q6H PRN, oxyCODONE Q4H PRN, oxyCODONE QHS PRN, pancrelipase 20,000 Units/ sodium bicarbonate 650 mg(#) PRN ( Salad Bar Clerk from Rx), phenol PRN Physical Exam: Gen: Appears fatigued alert, cooperative, no distress, appears stated age HENT: Normocephalic. Conjunctivae clear. EOMs intact. Supple neck. Lungs: Minimal air movement, no distinct crackles. C Heart: Regular rate and rhythm, S1, S2 normal, BLE without edema. Ext: No clubbing or cyanosis appreciated. Neuro: Grossly normal. Pulses: 2+ and symmetric Skin: No rashes appreciated Lab Review: Pertinent labs reviewed Radiology Review: Pertinent imaging studies reviewed Ramon Sinclair MD Pager [phone] K GRADER Associated attestation - Steven Koehler MD - 01/04/2018 10:20 AM STOCK GRADER ATTESTATION I personally performed the gaytan portions of the E/M visit, discussed case with resident and concur with resident documentation of history, physical exam, assessment, and treatment plan unless otherwise noted. Staff name: Steven Koehler MD Date: 01/04/2018 * India Santillan, PhD - 01/03/2018 10:39 PM STOCK GRADER Associated Order(s): CONSULT NEUROREHABILITATION PSYCHOLOGY Neurorehabilitation Psychology [id number] Pt was seen b/s for initial eval with no family or significant others present. Diagnosis: F43.21 Adjustment disorder w/ depressed mood Requesting Physician: Maude/Samy Reason for Request: Coping Relevant History: The following history was taken [...] PEG placement, thoracentesis s/p chest tube placement. On , pt was transferred to inpatient rehab for continued acute medical management, nursing cares, and comprehensive therapies. Medical/Surgical History: Past Medical History: Diagnosis Date AF (atrial fibrillation) (HCC) 08/15/2012 CAD (coronary artery disease) 08/15/2012 CHF (congestive heart failure) (HCC) 08/15/2012 COPD (chronic obstructive pulmonary disease) (HCC) 08/15/2012 HLD (hyperlipidemia) 08/15/2012 HTN (hypertension) 08/15/2012 LA thrombus 08/15/2012 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 08/15/2012 S/P ablation of atrial fibrillation 05/04/2013 05/04/13 A fib ablation by Dr. Godfrey. Past Surgical History: Procedure Laterality Date CARDIOVERSION CORONARY STENT PLACEMENT Family History: No family history on file. Social/Vocational History: Pt is and lives with his . Pt identified his and 3 children as members of his social support network. Pt has 14 years of education, is currently on disability, and hopes to return to work by finding a new job, and driving. Pt reported drinking alcohol socially, about 2- 3 beers infrequently. He stated that he used to drink a 6-pack of beer a day about 5-6 years ago. He reported that he also smokes 1.5-2 packs of cigarettes a week. He did not endorse any illicit drug use. Pt did not endorse history of psychotherapy, SPED, ADHD, LD, psychotropics, suicide attempts, or hospitalizations. Findings: Pt was alert, oriented, and open/responsive [...] congruent and euthymic. Pts reported mood was alight and pt did not endorse pervasive negative mood, suicidal ideation, or thoughts of harm toward self or others. Sleep was rated as good and no reported history of sleep difficulty. Appetite was rated as good for desire to eat but pt reported that due to his taste buds, food did not taste good. Pt did not report nausea or vomiting. Pain was reported as a 4/ 10 on eval, with an average of 5-6/10 in the last 24 hours, which pt indicated was manageable and to which he reported medications are effective. Pt did not report changes in cognition. Pt reported using naps as coping or relaxation strategies and has hobbies of golfing and reading. Pt cited goals of wanting to retain his health. Screening for anxiety symptomology was not significant (MIRANDA-7=2), and pt endorsed symptoms over the last 2 weeks including nervousness and difficulty relaxing for several days. Mood screening for depressive symptomology was mild ( PHQ-9=8) with pt endorsing symptoms over the last 2 weeks including of loss of interest, fatigue, poor appetite and difficulty concentrating for several days, more than half the days, or nearly every day. Supportive and processing therapy was provided. Pt's [...] Psy.D.. Neurorehabilitation Psychology Postdoctoral Fellow Pager #: [phone] ATTESTATION: I discussed this session and pt's care with the fellow and agree with his report and POC as amended (in blue) above. Thank you for asking our assistance. We will continue to follow. Winston Santillan, PhD, ABPP K GRADER * Jose Padilla MD - 01/01/2018 5:12 PM STOCK GRADER Associated Order(s): CONSULT INFECTIOUS DISEASES PHYSICIAN Administrative note. Dr Farah has been following the patient closely since late November. He saw the patient the morning he was transferred and placed a progress/ consultation note. His ID team will be following since he was transferred to rehab unit. MD Valerie [phone] K GRADER * Beatriz Falcon - 12/31/2017 4:48 PM STOCK GRADER Associated Order(s): CONSULT DIETITIAN; CONSULT DIETITIAN CLINICAL NUTRITION Clinical Nutrition Comment Summary NAME:Darrius Salas :1955 AGE: 62 y.o. ADMISSION DATE: 12/31/2017 DAYS ADMITTED: LOS: 0 days Comment: Noted auto consults placed for TF recommendations now that pt transferred to Rehab. RD completed full nutrition follow-up this morning when pt admitted on HC5. See note for details. Attached comment below. Current enteral order consistent with RD recommendations. RD will continue to monitor and f/u with patient per protocol. "62 yo/m with a PMHx COPD, tobacco/etoh use, CAD s/p PCI admitted as a transfer from an OSH for resp failure 2/2 PNA & inability to wean off vent. Was extubated 11/14, then cleared for FLD by STATE TROOPER, but was taking minimal PO nutrition & team placed corpak & started EN 11/17 afternoon. Pt was re-intubated 11/18-11/24. Received EN during and following intubation. PEG placed 12/15. RR d/t increased O2 requirements and transferred back to MICU. Pt received limited EN intake from 12/17-12/22 d/t significant TF holds and elevated GRVs and for procedures. STATE TROOPER following; pt advanced to pureed diet with nectar thick liquids 12/21, pureed diet with thin liquids on 12/27, [facility] thin liquids on 12/29, and regular solids on 12/30. Pts enteral order switched from continuous to bolus feeds on 12/29 and then to nocturnal compressed feeds on 12/30. 3-day EN average (12/28-12/29) provided 65-75% of estimated calorie needs and 55-65% of estimated protein needs. RN and Pt reported tolerance of nocturnal compressed feeds overnight. Pt reported sufficient appetite, but is having difficulty sitting up to eat this morning d/ t pain in chest. He denied N/V/D/C. Pt confirmed that his UBW prior to admit was about 175# with current body weight of 173#. Noted plan for patient to d/c today to [facility]. +BM 12/29, BLE pitting 2+ edema, stage 2 pressure ulcer to buttocks, and -4.8L net i/o since admit." Recommendation: Regular diet with consistency modifications per STATE TROOPER recommendations Continue nocturnal compressed feeds of Nutren 2.0 at 55ml/hr x 12hrs to provide ~65% of estimated nutrition needs 1320 kcal, 55 gm protein, and 455 ml free fluid. Flush with 30 ml H2O before and after feed. Additional fluid boluses per primary team. Beatriz Falcon RD, LD *[phone] K GRADER in this encounter Miscellaneous Notes * Transfer - Nela Santoro MD - 01/21/2018 4:44 PM STOCK GRADER In-Hospital Transfer Note Admission Diagnosis: Pneumonia Admission Date: 12/31/2017 Active Hospital Problem List: Principal Problem: Debility Active Problems: CHF (congestive heart failure) (HCC) CAD (coronary artery disease) AF (atrial fibrillation) (HCC) jail current use of anticoagulant COPD (chronic obstructive pulmonary disease) (HCC) HTN (hypertension) HLD (hyperlipidemia) Alcohol abuse Tobacco abuse S/P ablation of atrial fibrillation Pneumonia Cytomegalovirus (CMV) viremia ([facility]) Impaired mobility and activities of daily living Hospital Course: Mr. Darrius Salas is a [...] s/p chest tube placement. 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 PER PULMONARY NO CHEST TUBE INSERTION. CONSULT PULMONARY Significant Medication Information (to include antibiotic duration/indication, anticoagulation and steroids, etc.): Continue antibiotics including cefepime, micafungin IV, Cresemba 372mg QD, valganciclovir 900mg BID Do not place chest tube. Consults: Pulmonary, ID Follow-Up Items: Blood cultures Activity/Weight bearing status: None Nutrition: Reg Discharge Plan: Admit to medicine Nela Santoro D.O., M.B.A. Physical Medicine and Rehabilitation, PGY-2 Pager [phone] K GRADER * Care Coordination-Inpatient - Nettie Smith MD - 01/21/2018 4:38 PM STOCK GRADER Patient with multi-organism pneumonia, necrotizing aspergillosis, now with worsening tachycardia and leukocytosis. Dr. Vogel discussed case with rehab and requested direct admission to medicine. Pending bed assignment. Pulm consult team called regarding patient. They are recommending against chest tube placement tonight. Requesting pulm consult, will be seen in the morning. Complicated hydropneumothorax with limited medical options. Nettie Smith MD AOD K GRADER * Case Mgmt DC Plan - Ilan Coburni - 01/21/2018 4:05 PM STOCK GRADER Case Management Progress NoteNAME:Darrius Salas :1955 AGE: 62 y.o. ADMISSION DATE: 12/31/2017 DAYS ADMITTED: LOS: 21 days Todays Date: 01/21/2018 Plan Anticipate d/c 01/28 to home, likely with HH, pending pt stability. Interventions ? Support Support: Pt/Family Updates re:POC or DC Plan ? Info or Referral Information or Referral to Community Resources: No Needs Identified ? Discharge Planning Discharge Planning: Home Health, Durable Medical Equipment and Supplies, Home Qqaetzdg-Nedisxw-XRT SW faxed orders for rollator to [facility] at fax: ? Medication Needs Medication Needs: No Needs Identified, Prescription Assistance Program, Co-Pay Check ? Financial Financial: No Needs Identified ? Legal Legal: No Needs Identified ? Other Other/None: No needs identified Disposition ? Expected Discharge Date Expected Discharge Date: 01/28/18 ? Transportation Transportation Name, Phone and Availability #1: Pt' Rachel [phone] Transportation Name, Phone and Availability #2: Son Jeovany [phone] Does the patient use Medicaid Transportation?: No [...] for the patient. Adair Coburn LMSW Phone: [phone] Pager: *[phone] K GRADER * Advanced Care Planning/Resuscitation Status - Merari Fowler MD - 2017 2:58 PM STOCK GRADER Advance Care Planning/Resuscitation Status Conversation Individuals present for advance care planning conversation: resident/fellow physician, nurse and patient Pertinent details of conversation (including direct quotes from patient or surrogate): The patient declines chest compressions. He will accept all other care. He will accept cardioversion, intubation, and a feeding tube if necessary. Outcome of conversation: DNAR - Full Intervention Documents completed as a result of this conversation: None Other documents present, which outline patient/surrogate wishes: None Merari Fowler MD *[phone] K GRADER * Case Mgmt DC Plan - Adair Coburn - 01/20/2018 4:34 PM STOCK GRADER Case Management Progress NoteNAME:Darrius Salas :1955 AGE: 62 y.o. ADMISSION DATE: 12/31/2017 DAYS ADMITTED: LOS: 20 days Todays Date: 01/20/2018 Plan Anticipate d/c 01/28 to home, likely with HH, pending pt stability. Interventions ? Support Support: Pt/Family Updates re:POC or DC Plan RANDY contacted pt's Rachel to provide update on DCP. RANDY advised of anticipated d/c date of 01/28 with recommendations for HH vs OP rehab, pending pt's need for home infusion. Rachel agreeable to waiting on pt's medical progress to assist with determining HH vs OP. RANDY also reviewed DME, including rollator which SW will order, and tub bench and bed rail, which will be out of pocket purchases. Rachel understanding and will work with pt's son Jeovany to obtain DME. Rachel also understanding that pt's oxygen needs will be reassessed closer to d/c. RANDY emailed pt's son Jeovany with information on DME. ? Info or Referral Information or Referral to Community Resources: No Needs Identified ? Discharge Planning Discharge Planning: Home Health, Durable Medical Equipment and Supplies, Home Vzgdpaak-Ekiaspw-OQR SW contacted [facility] (owned by [facility]) to inquire about DME and oxygen. They report they can provide oxygen as needed and have a local branch deliver a tank to rehab for d/c, if needed. They also offer rollators, tub benches ($29) and bed rails ($68). [phone] fax: [phone], ? Medication Needs Medication Needs: No Needs Identified, Prescription Assistance Program, Co-Pay Check ? Financial Financial: No Needs Identified ? Legal Legal: No Needs Identified ? Other Other/None: No needs identified Disposition ? Expected Discharge Date Expected Discharge Date: 01/28/18 ? Transportation Transportation Name, Phone and Availability #1: Pt' Rachel [phone] Transportation Name, Phone and Availability #2: Son Jeovany [phone] Does the patient use Medicaid Transportation?: No ? Next Level of Care (Acute Psych discharges only) ? Discharge Disposition Durable Medical Equipment No service has been selected for the patient. Destination No service has been selected for the patient. Home Care No service has been selected for the patient. Dialysis/Infusion No service has been selected for the patient. Adair Coburn LMSW Phone: [phone] Pager: [phone] K GRADER * Case Mgmt DC Plan - Adair Coburn - 01/19/2018 4:25 PM STOCK GRADER Case Management Progress NoteNAME:Darrius Salas :1955 AGE: 62 y.o. ADMISSION DATE: 12/31/2017 DAYS ADMITTED: LOS: 19 days Todays Date: 01/19/2018 Plan Anticipate d/c 01/28 to home, with HH vs OP rehab, pending pt stability and progress. Interventions ? Support Support: Pt/Family Updates re:POC or DC Plan SW reviewed EMR and obtained updates from rehab team conference. SW met with pt and pt's son Jeovany to review DCP. SW advised that d/c is anticipated for 01/28, with recommendations for HH vs OP rehab. Pt disappointed that d/c is not earlier , but understands that physicians are monitoring for medical stability. SW advised that hopefully pt will not require home infusion, but in the case that he does, he will need HH. SW reviewed options for HH vs OP rehab, or starting with HH and transitioning to OP as able. Pt and Jeovany understanding that pt's continued progress and medical stability will likely guide choice between HH and OP rehab. SW also discussed DME. SW advised that rollator will be ordered through insurance, but bed rail and tub bench would be out of pocket items. Pt reports his oxygen supplier also provides DME. SW agreeable to looking into DME with [facility] and notifying pt of options. SW also reviewed oxygen studies that will be completed prior to d/c. Pt understands that he will likely need new tubing for his home oxygen concentrator and tanks. Pt hopeful for portable oxygen, if he d/c with daytime oxygen needs. ? Info or Referral Information or Referral to Community Resources: No Needs Identified ? Discharge Planning Discharge Planning: Home Health, Durable Medical Equipment and Supplies, Home Qdroqdmb-Dholwml-LOH ? Medication Needs Medication Needs: No Needs Identified, Prescription Assistance Program, Co-Pay Check ? Financial Financial: No Needs Identified ? Legal Legal: No Needs Identified ? Other Other/None: No needs identified Disposition ? Expected Discharge Date Expected Discharge Date: 01/28/18 ? Transportation Transportation Name, Phone and Availability #1: Pt' Rachel [phone] Transportation Name, Phone and Availability #2: Son Jeovany [phone] Does the patient use Medicaid Transportation?: No ? Next Level of Care (Acute Psych discharges only) ? Discharge Disposition Durable Medical Equipment No service has been selected for the patient. Destination No service has been selected for the patient. Home Care No service has been selected for the patient. Dialysis/Infusion No service has been selected for the patient. Adair Cobunr LMSW Phone: [phone] Pager: [phone] K GRADER * Rehab Team Conference - Honey Whitehead RN - 01/19/2018 9:20 AM STOCK GRADER Team Conference Note Date of Admission: 12/31/2017 Date of Team Conference: 01/19/2018 Darrius Salas is a 62 y.o. male. : 1955 Team Conference Attendees: Beatriz Ortiz MD, Attending Physician; Nela Santoro MD, Resident Physician; Merari Fowler MD, Resident Physician; Adair Coburn LMSW, Social Work; John Gresham PharmD, Pharmacy; India Santillan PhD, ABPP, Neuropsychology; Beck Gutierrez PsyD, Neuropsychology Fellow; Kyler Laird MA, Neuropsychology Accounts Receivable Manager; Liana Paitno RN, Nurse Lithographic Photographer Apprentice; Ld Cunningham OTR, Occupational Therapy; Lake Flores, DPT Physical Therapy; Nela Barragan STATE TROOPER, Speech Therapy; Honey Whitehead RN, Ham Marker; Patrica Zapien RD LD, Clinical Nutrition; Akiko Barnes RN, Nursing Medical Update: 62 yo M with PMH COPD on 2-3L QHS, tobacco use, afib on xarelto , CAD s/p PCI (2012) who presented from OSH 11/13/17 in acute on chronic respiratory failure 2/2 legionella PNA with inability to wean off vent. OSH course complicated by septic shock, acute on chronic respiratory failure requiring intubation x2, afib with RVR s/p failed cardioversion.Treated for Legionella, Tamar Glabrata, necrotizing aspergillosis PNA. On micafungin IV, Cresemba 372mg QD, valganciclovir 900mg BID. --Rehab dx: Debility - Continuing lasix 60mg BID, guaifenesin 600mg BID - Afib RVR, CAD s/p PCI 03/2012, HFpEF, on lasix 60mg BID, digoxin 250mcg QD, metoprolol 12.5mg BID, xarelto 20mg QD - Elevated Alk phos/LFTs are improving, will CTM - Encourage IS, flutter valve, and cough assist - received peripheral nerve block, ok to d/c cough assist now on 2-3L (baseline) . May be able to discharge with only cresemba PO per ID. New findings on CXR of worsening pneumonia. ID involved and on cefepime for now. NeuroPsych: Team Goal: Patient will perform: household mobility, at ambulation level, Minimum assistance, with device Pt will perform basic care and transfer with: Stand by assistance, Roller walker level, Progressing Discharge Planning Discharge Date: 01/28/18 Living Situation Prior to Admission Living Arrangements Type of Residence: Home, independent Living Arrangements: Spouse/significant other Bathroom Shower / Tub: Tub Only (Pt reports he currently has a tub only, but family may remodel to add a walk in shower) How many levels in the residence?: 1 Can patient live on one level if needed?: Yes Does residence have entry and/or side stairs?: Yes (5 entry steps with hand rail ) Assistance needed prior to admit or anticipated on discharge: No Who provides assistance or could if needed?: Pt's Rachel, adult children Kalyan Thayer, Viridiana Are they in good health?: Yes Can [...] support and she cares 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 Rachel may start providing daycare at her and pt's home, so that she is able to assist pt as needed. 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 Pt also has two sisters in [place], Irlanda and Michelle, who can assist intermittently. Pt feels his family can provide consistent and physical assistance, as needed. Pt was on 2-3 liters of nocturnal oxygen prior to admission, provided by [facility]. Pt also owns a standard walker. Plan Home with family, outpatient PT/OT/ST DME 4-wheeled walker, tub transfer bench, Bed rail (if needed) Rehabilitation Plan Progress Nearing stand by assist with 4-wheel walker Improved activity tolerance, now tolerating 10 minutes of functional activity in standing 2 lpm at rest and with most activity (bathing) Improved pain management Nearing stand by assist with all ADLs (LB dressing) Performing 4 inch step up and downs; increasing ambulation distance Significant improvement in swallow function - minimal pharyngeal dysphagia per FEES last week. Improved secretion expectoration and cough strength. Barriers/Concerns Nausea and general malaise impacting participation (especially during AM session after meds and food) 2 lpm O2 with bathing up to 4lpm Continues to require moderate-minimal lift assist from lower surfaces ( toileting and shower) Does not tolerate much time up in chair Pt currently tolerating regular/thin diet with consistent use of strategies. Continuing EMST protocol to improve secretion management - requires minimal assist. Addressing respiratory support for speech. Pt may benefit from ST services at d/c. Coughing with minimal exertion. Plan step/stair training (4 inch and work up); nustep, transfer training, proximal strengthening, ambulation distance and endurance Strength and ROM assessment, upright tolerance / endurance, functional transfers , dynamic sitting balance 30 minutes by STATE TROOPER for dysphagia and respiratory support/secretion management. A&O x4. Complaints of R shoulder pain x1. Tylenol 650mg given. L hand/wrist dressings c/d intact, RUE triple lumen picc intact. Patient call appropriately with call light. Oxygen studies for exercise and overnight prior to discharge Up to chair for all meals (and up for 1 hour around meal time) Ambulate to bathroom with all staff with 4-wheeled walker Encourage po intake Encourage relaxed strategies Encourage time out of bed, to chair or to wheelchair Goals Speech Shelter Goals STATE TROOPER Shelter Goals: Yes Will maximize speech production for independent communication with: Minimal assist Patient will exhibit safe swallow for least restrictive consistency: Progressing Other Shelter Goals: Achieved Weekly Goals Weekly Bed Mobility Goals: Patient will perform sit to supine with, Patient will perform supine to sit with Patient will perform sit to supine with: Minimum assistance, Achieved (new goal ; modified independent) Patient will perform supine to sit with: Minimum assistance, Achieved (new goal ; modified independent) Weekly Transfer Goals: Patient will complete sit to stand transfer with, Patient will complete stand to sit transfer with, Patient will complete stand pivot transfer with Patient will complete sit to stand transfer with: Moderate assistance, Progressing Patient will complete stand to sit transfer with: Moderate assistance, Progressing Patient will complete stand pivot transfer with: Moderate assistance, Progressing Weekly Ambulation/Stairs Goals: Patient will ambulate Patient will ambulate: 150 feet, Minimum assistance (new goal) Weekly Wheelchair Goals: Patient will propel manual wheelchair on level surfaces with Patient will propel manual wheelchair on level surfaces with: Minimum assistance , Achieved Weekly Goals Patient Will Perform Bathing: Partly Met, Stand By Assist Patient Will Perform UE Dressing: Partly Met Patient Will Perform LE Dressing: Not Met, w/ Minimum Assist Patient Will Perform Grooming: Met, Standing at Sink, w/ Stand By Assist Patient Will Perform Toileting: Met, w/ Stand By Assist Pt Will Perform All Functional Transfers: Minimum Assist, Not Met Pt Will Transfer To Bedside Commode: w/ Minimum Assist Speech Short Term Goals Other (comment): Pt will demonstrate breath support sufficient to generate x10- 12 syllables per breath group given minimal cues. Not addressed - spontaneous improvement noted in breath support without need for further intervention. Dysphagia: Yes Will tolerate current diet without signs of aspiration: Progressing Will participate in repeat instrumental swallow evaluation when clinically indicated: Achieved Nursing Short Term Goals Bladder Management: Yes [...] swallowing precautions / techniques with: Progressing Functional Bradford Measures Eating FIM: 7 - Complete independence Grooming FIM: 5 - Supervision Bathing FIM: 5 - Supervision Dressing - Upper Body FIM: 5 - Supervision Dressing - Lower Body FIM: 3 - Moderate assistance, patient performs 50-74% or more of grooming/bathing/dressing/toileting tasks Toileting FIM: 5 - Set up Bladder FIM: 5 - Emptying device by staff Bowel FIM: 6 - Modified independence - Medication Transfers FIM: 4 - Minimal assistance, patient performs 75% or more of transferring tasks Toilet Transfers FIM: 4 - Minimal assistance, patient performs 75% or more of transferring tasks Tub Transfers FIM: 1 - Total assistance, two or more people Shower Transfers FIM: 3 - Moderate assistance, patient performs 50-74% of transferring tasks (lifting required) Gait: 4 - Contact guard assistance, greater than or equal to 150 feet Wheelchair FIM: 2 - Maximal assistance, patient expends 25-49% effort, greater than or equal to 50-149 feet Stairs FIM: 2 - Maximal assistance, patient expends 25-49% effort, greater than or equal to 4-6 stairs Comprehension FIM: 7 - Complete independence Expression FIM: 7 - Complete independence - Able to express complex/abstract ideas clearly and fluently Social Interaction FIM: 7 - Complete independence Problem Solving FIM: 7 - Complete independence Memory FIM: 7 - Complete independence - Recognizes people frequently encountered , remembers daily routines, executes requests of other without need for repetition K GRADER Associated attestation - Beatriz Ortiz MD - 01/19/2018 2:00 PM STOCK GRADER I personally led the interdisciplinary team meeting and concur with all decisions made by the interdisciplinary team. Beatriz Ortiz MD * Case Mgmt DC Plan - Adair Coburn - 01/18/2018 4:06 PM STOCK GRADER Case Management Progress NoteNAME:Darrius Salas :1955 AGE: 62 y.o. ADMISSION DATE: 12/31/2017 DAYS ADMITTED: LOS: 18 days Todays Date: 01/18/2018 Plan Anticipate d/c 01/28 vs earlier date, pending pt stability and progress. Pt to have either HH vs OP rehab. Interventions ? Support Support: Pt/Family Updates re:POC or DC Plan SW met with pt to review DCP. SW advised that d/c is still anticipated for 01/28 , but per therapy, could be sooner, pending medical stability. Pt agreeable to this plan. Pt also agreeable to considering HH vs OP rehab. Pt inquired about DME and SW advised that current recommendations are for rollator, tub bench, and maybe bed rail. SW explained that the rollator can be ordered through insurance, but the other items would likely be out of pocket purchases. Pt also inquired about his home oxygen and SW explained process of oxygen studies. Pt understanding. ? Info or Referral Information or Referral to Community Resources: No Needs Identified ? Discharge Planning Discharge Planning: Home Health, Durable Medical Equipment and Supplies, Home [id number] ? Medication Needs Medication Needs: No Needs Identified, Prescription Assistance Program, Co-Pay Check ? Financial Financial: No Needs Identified ? Legal Legal: No Needs Identified ? Other Other/None: No needs identified Disposition ? Expected Discharge Date Expected Discharge Date: 01/24/18 ? Transportation Transportation Name, Phone and Availability #1: Pt' Rachel [phone] Transportation Name, Phone and Availability #2: Son Jeovany [phone] Does the patient use Medicaid Transportation?: No ? Next Level of Care (Acute Psych discharges only) ? Discharge Disposition Durable Medical Equipment No service has been selected for the patient. Destination No service has been selected for the patient. Home Care No service has been selected for the patient. [facility]/Infusion No service has been selected for the patient. Adair Coburn LMSW Phone: [phone] Pager: [phone] K GRADER * Case Mgmt DC Plan - Tanyabaldocamille Adair - 01/12/2018 4:18 PM STOCK GRADER Case Management Progress NoteNAME:Darrius Salas :1955 AGE: 62 y.o. ADMISSION DATE: 12/31/2017 DAYS ADMITTED: LOS: 12 days Todays Date: 01/12/2018 Plan Anticipate d/c 01/28 to home with OP rehab, pending pt stability. Interventions ? Support Support: Pt/Family Updates re:POC or DC Plan SW reviewed EMR and obtained updates from rehab team conference. SW met with pt , with pt's Rachel on speaker phone to provide update on DCP. Pt became engaged in nursing care as he wasn't feel well and was fine with SW providing update to Rachel alone. SW providing update to Rachel, including anticipated d/c date of 01/28 with recommendations for HH vs OP rehab. Rachel reports they prefer OP rehab, but is concerned about transportation. Rachel thinks that [facility] in [place] may offer transport to therapies, but she is also working on a plan to be able to transport pt herself. Rachel inquired about DME and SW advised that current recommendation are for roller walker and tub bench. Rachel inquired about needing a ramp and SW agreeable to discussing further with therapy. Rachel reports that pt currently received home oxygen from [facility], but voiced concerns that pt's tank is very old and they only clean and service it once a year. Rachel is wondering if this has anything to do with pt's health issues. SW agreeable to relaying to physicians and contacting [facility] with updated information. ? Info or Referral Information or Referral to Community Resources: No Needs Identified ? Discharge Planning Discharge Planning: Home Health, Durable Medical Equipment and Supplies, Home [id number] ? Medication Needs Medication Needs: No Needs Identified, Prescription Assistance Program, Co-Pay Check ? Financial Financial: No Needs Identified ? Legal Legal: No Needs Identified ? Other Other/None: No needs identified Disposition ? Expected Discharge Date Expected Discharge Date: 01/28/18 ? Transportation Transportation Name, Phone and Availability #1: Pt' Rachel [phone] Transportation Name, Phone and Availability #2: Son Jeovany [phone] Does the patient use Medicaid Transportation?: No ? Next Level of Care (Acute Psych discharges only) ? Discharge Disposition Durable Medical Equipment No service has been selected for the patient. [facility] Destination No service has been selected for the patient. Home Care No service has been selected for the patient. Dialysis/Infusion No service has been selected for the patient. Adair Coburn LMSW Phone: [phone] Pager: [phone] K GRADER * Rehab Team Conference - Honey Whitehead RN - 01/12/2018 10:42 AM STOCK GRADER Team Conference Note Date of Admission: 12/31/2017 Date of Team Conference: 01/12/2018 Darrius Salas is a 62 y.o. male. : 1955 Team Conference Attendees: Beatriz Ortiz MD, Attending Physician; Nela Santoro MD, Resident Physician; Merari Fowler MD, Resident Physician; Adair Coburn [facility], Social Work; John Gresham PharmD, Pharmacy; India Santillan PhD, ABPP, Neuropsychology; Beck Gutierrez PsyD, Neuropsychology Fellow; Kyler Laird MA, Neuropsychology Accounts Receivable Manager; Liana Patino RN, Nurse Lithographic Photographer Apprentice; Ld Cunningham OTR, Occupational Therapy; BART RobinsT Physical Therapy; Nela Barragan STATE TROOPER, Speech Therapy; Honey Whitehead RN, Ham Marker; Patrica MAYORGA, Clinical Nutrition; Akiko Barnes RN, Nursing Medical Update: 62 yo M with PMH COPD on 2-3L QHS, tobacco use, afib on xarelto , CAD s/p PCI (2012) who presented from OSH 11/13/17 in acute on chronic respiratory failure 2/2 legionella PNA with inability to wean off vent. OSH course complicated by septic shock, acute on chronic respiratory failure requiring intubation x2, afib with RVR s/p failed cardioversion.Treated for Legionella, Tamar Glabrata, necrotizing aspergillosis PNA. On micafungin IV, Cresemba 372mg QD, valganciclovir 900mg BID. Updates this week: received peripheral nerve block, ok to d/c cough assist now on 2-3L (baseline). May be able to discharge with only cresemba PO per ID. --Rehab dx: Debility - Continuing lasix 60mg BID, guaifenesin 600mg BID - Afib RVR, CAD s/p PCI 03/2012, HFpEF, on lasix 60mg BID, digoxin 250mcg QD, metoprolol 12.5mg BID, xarelto 20mg QD - Elevated Alk phos/LFTs are improving, will CTM - Encourage IS, flutter valve, and cough assist NeuroPsych: Depression has improved. Team Goal: Patient will perform: household mobility, at ambulation level, Minimum assistance, with device Pt will perform basic care and transfer with: Stand by assistance, Roller walker level Discharge Planning Discharge Date: 01/28/18 Living Situation Prior to Admission Living Arrangements Type of Residence: Home, independent Living Arrangements: Spouse/significant other Bathroom Shower / Tub: Tub Only (Pt reports he currently has a tub only, but family may remodel to add a walk in shower) How many levels in the residence?: 1 Can patient live on one level if needed?: Yes Does residence have entry and/or side stairs?: Yes (5 entry steps with hand rail ) Assistance needed prior to admit or anticipated on discharge: No Who provides assistance or could if needed?: Pt's Rachel, adult children Jeovany, Kalyan, Viridiana Are they in good health?: Yes Can [...] support and she cares 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 Rachel may start providing daycare at her and pt's home, so that she is able to assist pt as needed. 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 Pt also has two sisters in [place], Irlanda and Michelle, who can assist intermittently. Pt feels his family can provide consistent and physical assistance, as needed. Pt was on 2-3 liters of nocturnal oxygen prior to admission, provided by [facility]. Pt also owns a standard walker. Plan Outpatient PT/OT/ST, if available transportation DME To be determined most likely RW, tub transfer bench Rehabilitation Plan Progress Now one person transfers with RW Now tolerating 5 minutes of functional activity in standing with RW. Able to ambulate 86 feet with RW and minimal assist Improved activity tolerance Decreased O2 needs with activity (2L) Improved pain management Consistent use of compensatory swallow strategies. Decreased use of cough assist machine with improved secretion expectoration and cough strength. Barriers/Concerns Significant weakness/debility Moderate lift assist needed for sit to stand transfers Moderate assist for LB dressing and bathing Nausea, fatigue have been barriers to short term goals in last review cycle. Minimal assist with dysphagia adjunct faculty for medical terminology goals; pt currently tolerating regular/ thin diet with consistent use of strategies. EMST protocol initiated to improve secretion management. New chcf goal of respiratory support for speech developed. Pt may benefit from ST services at d/c. Easily fatigued and continued chest pain inhibits mobility. Trialing no TF at [facility]. Using 2L O2. Plan nustep, transfer training (sit to stands, pivots), short distance ambulation, proximal LE strengthening and core strengthening Strength and ROM assessment, upright tolerance / endurance, functional transfers , dynamic sitting balance 30 minutes by STATE TROOPER for dysphagia and respiratory support/secretion management. Pain in chest- worse when coughing, taking PRN oxycodone. New skin tear on L forearm covered with silver biotin foam. L Leg blister scab fell off, covered with silver and biotin. pt uses call light correctly and follows fall precautions. Up to chair for all meals and encourage oral intake at meals Ambulate to bathroom with all staff with roller walker PEG tube flush and wound dressing change education with , Rachel and/or sisters Goals Speech Shelter Goals STATE TROOPER Freight Flagman Goals: Yes Will maximize speech production for independent communication with: Minimal assist Patient will exhibit safe swallow for least restrictive consistency: Progressing Other Shelter Goals: Achieved Weekly Goals Weekly Bed Mobility Goals: Patient will perform sit to supine with, Patient will perform supine to sit with Patient will perform sit to supine with: Minimum assistance, Achieved (new goal ; modified independent) Patient will perform supine to sit with: Minimum assistance, Achieved (new goal ; modified independent) Weekly Transfer Goals: Patient will complete sit to stand transfer with, Patient will complete stand to sit transfer with, Patient will complete stand pivot transfer with Patient will complete sit to stand transfer with: Moderate assistance, Progressing Patient will complete stand to sit transfer with: Moderate assistance, Progressing Patient will complete stand pivot transfer with: Moderate assistance, Progressing Weekly Ambulation/Stairs Goals: Patient will ambulate Patient will ambulate: 150 feet, Minimum assistance (new goal) Weekly Wheelchair Goals: Patient will propel manual wheelchair on level surfaces with Patient will propel manual wheelchair on level surfaces with: Minimum assistance , Achieved Weekly Goals Patient Will Perform Bathing: w/ Maximum Assist, Met, w/ Minimum Assist Patient Will Perform UE Dressing: Modified Independent Patient Will Perform LE Dressing: w/ Maximum Assist, Met, w/ Minimum Assist Patient Will Perform Grooming: w/ Minimum Assist, Standing at Sink Patient Will Perform Toileting: w/ Moderate Assist, w/ Bedside Commode Pt Will Perform All Functional Transfers: Minimum Assist Pt Will Transfer To Bedside Commode: w/ Minimum Assist Speech Short Term Goals Other (comment): Pt will demonstrate breath support sufficient to generate x10- 12 syllables per breath group given minimal cues. Dysphagia: Yes Will tolerate current diet without signs of aspiration: Progressing Will participate in repeat instrumental swallow evaluation when clinically indicated: Progressing Nursing Short Term Goals Bladder Management: Yes [...] swallowing precautions / techniques with: Progressing Functional Bradford Measures Eating FIM: 6 - Modified independence - Safety concerns Grooming FIM: 5 - Set up Bathing FIM: 3 - Moderate assistance, patient performs 50-74% or more of grooming/bathing/dressing/toileting tasks Dressing - Upper Body FIM: 5 - Set up Dressing - Lower Body FIM: 3 - Moderate assistance, patient performs 50-74% or more of grooming/bathing/dressing/toileting tasks Toileting FIM: 1 - Total assistance, patient performs less than 25% of grooming/ bathing/dressing/toileting tasks Bladder FIM: 5 - Emptying device by staff Bowel FIM: 6 - No bowel movement, medication Transfers FIM: 3 - Moderate assistance, patient performs 50-74% of transferring tasks (lifting required) Toilet Transfers FIM: 1 - Total assistance, two or more people Tub Transfers FIM: 1 - Total assistance, two or more people Shower Transfers FIM: 3 - Moderate assistance, patient performs 50-74% of transferring tasks (lifting required) Gait: 2 - Maximal assistance, patient expends 25-49% effort, requires one person assist, greater than or equal to 50-149 feet Wheelchair FIM: 2 - Maximal assistance, patient expends 25-49% effort, greater than or equal to 50-149 feet Stairs FIM: 0 - Activity did not occur - Unable due to motor control Comprehension FIM: 6 - Modified independence - only mild difficulty understaing complex/abstract information, no prompting required Expression FIM: 6 - Modified independence - Able to express abstract information , mild difficulty but no prompting Social Interaction FIM: 6 - Modified independence - Able to interact in most situations and no prompting required Problem Solving FIM: 6 - Modified independence - Able to recognize problems with only mild difficulty, makes appropriate decisions, initiates and carries out a sequence of steps to solve complex problems, no prompting Memory FIM: 6 - Modified independence - Able to recognize people frequently encountered, remembers daily routines, responds to requests of others with only mild difficulty, no prompting K GRADER Associated attestation - Beatriz Ortiz MD - 01/12/2018 2:05 PM STOCK GRADER I personally led the interdisciplinary team meeting and concur with all decisions made by the interdisciplinary team. Beatriz Ortiz MD * Case Mgmt DC Plan - Adair Coburn - 01/05/2018 4:42 PM STOCK GRADER Case Management Progress NoteNAME:Darrius Salas :1955 AGE: 62 y.o. ADMISSION DATE: 12/31/2017 DAYS ADMITTED: LOS: 5 days Todays Date: 01/05/2018 Plan Anticipate d/c 01/28 to home with HH, pending pt stability. Interventions ? Support Support: Pt/Family Updates re:POC or DC Plan RANDY reviewed EMR and obtained updates from rehab team conference. RANDY met with pt and pt's sister Haley to provide update on DCP, including anticipate d/c date of 01/28. RANDY advised that ongoing therapies are recommended and that pt would likely benefit from HH care. SW also review tentative DME recommendations. Pt agreeable to plan so far. ? Info or Referral Information or Referral to Community Resources: No Needs Identified ? Discharge Planning Discharge Planning: Home Health, Durable Medical Equipment and Supplies, Home [id number] ? Medication Needs Medication Needs: No Needs Identified, Prescription Assistance Program, Co-Pay Check ? Financial Financial: No Needs Identified ? Legal Legal: No Needs Identified ? Other Other/None: No needs identified Disposition ? Expected Discharge Date Expected Discharge Date: 01/28/18 ? Transportation Transportation Name, Phone and Availability #1: Pt' Rachel [phone] Transportation Name, Phone and Availability #2: Son Jeovany [phone] Does the patient use Medicaid Transportation?: No ? Next Level of Care (Acute Psych discharges only) ? Discharge Disposition Durable Medical Equipment No service has been selected for the patient. [facility] Destination No service has been selected for the patient. Home Care No service has been selected for the patient. Dialysis/Infusion No service has been selected for the patient. Adair Coburn LMSW Phone: [phone] Pager: [phone] K GRADER * Rehab Team Conference - Honey Whitehead RN - 01/05/2018 10:48 AM STOCK GRADER Team Conference Note Date of Admission: 12/31/2017 Date of Team Conference: 01/05/2018 Darrius Salas is a 62 y.o. male. : 1955 Team Conference Attendees: Beatriz Ortiz MD, Attending Physician; Nela Santoro MD, Resident Physician; Merari Fowler MD, Resident Physician; Adair Coburn [facility], Social Work; Marcelino Fam PharmD, Pharmacy; India Santillan PhD, ABPP, Neuropsychology; Beck Gutierrez PsyD, Neuropsychology Fellow; Ld Cunningham OTR, Occupational Therapy; Kierra Higgins DPT, Physical Therapy; Nela Barragan STATE TROOPER, Speech Therapy; Beatriz CARMICHAEL/Joyce SILVERIO, Tunneling Machine Operator; Honey Whitehead RN, Ham Marker; Patrica Zapien RD LD, Clinical Nutrition ; Pastora Romero RN, Nursing Medical Update: 62 yo M with PMH COPD on 2-3L QHS, tobacco use, afib on xarelto , CAD s/p PCI (2012) who presented from OSH 11/13/17 in acute on chronic respiratory failure 2/2 legionella PNA with inability to wean off vent. OSH course complicated by septic shock, acute on chronic respiratory failure requiring intubation x2, afib with RVR s/p failed cardioversion.Treated for Legionella, Tamar Glabrata, necrotizing aspergillosis PNA. On micafungin IV, Cresemba 372mg QD, valganciclovir 900mg BID. --Rehab dx: Debility - Continuing lasix 60mg BID, guaifenesin 600mg BID - Afib RVR, CAD s/p PCI 03/2012, HFpEF, on lasix 60mg BID, digoxin 250mcg QD, metoprolol 12.5mg BID, xarelto 20mg QD - Elevated Alk phos/LFTs are improving, will CTM - Acute pain vs chronic pain service consulted for potential block to assist with pain - Encourage IS, flutter valve, and cough assist NeuroPsych: Hoping to return to a new job and driving. Active smoker. Desires to eat, but cannot taste the food well. No significant anxiety symptoms, but some mild depressive symptoms. Team Goal: Patient will perform: household mobility, at ambulation level, Minimum assistance, with device Pt will perform basic care and transfer with: Stand by assistance, Roller walker level, Wheelchair level Discharge Planning Discharge Date: 01/28/18 Living Situation Prior to Admission Living Arrangements Type of Residence: Home, independent Living Arrangements: Spouse/significant other Bathroom Shower / Tub: Tub Only (Pt reports he currently has a tub only, but family may remodel to add a walk in shower) How many levels in the residence?: 1 Can patient live on one level if needed?: Yes Does residence have entry and/or side stairs?: Yes (5 entry steps with hand rail ) Assistance needed prior to admit or anticipated on discharge: No Who provides assistance or could if needed?: Pt's Rachel, adult children Kalyan Thayer, Viridiana Are they in good health?: Yes Can [...] support and she cares 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 Rachel may start providing daycare at her and pt's home, so that she is able to assist pt as needed. 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 Pt also has two sisters in [place], Irlanda and Michelle, who can assist intermittently. Pt feels his family can provide consistent and physical assistance, as needed. Pt was on 2-3 liters of nocturnal oxygen prior to admission, provided by [facility]. Pt also owns a standard walker. Plan Home health PT/OT/ST DME To be determined most likely RW, tub transfer bench, and possible manual w/ c Rehabilitation Plan Progress Now maximal assist of one person and minimal assist of second person for transfers Improved bathing FIM score from total assist to moderate assist Tolerating out of bed for 2 hour sessions Improved use of compensatory strategies. STATE TROOPER initiating EMST program on 01/05 for improved respiratory drive and secretion management. Barriers/Concerns Significant weakness/debility Total assist for LB dressing, and toileting Continues to need two person for transfers Nausea and fatigue impacting ability to participate in therapy No barriers to short term goals. Minimal assist with dysphagia chcf goals; pt currently tolerating regular/ thin diet with consistent use of strategies. Pt may benefit from ST services at d/c. Continued chest pain & easily fatigued when OOB. Still requiring nocturnal tube feeds. Still requiring 4L O2 NC. Plan nustep, transfer training (sit to stands, pivots), short distance ambulation Strength and ROM assessment, upright tolerance / endurance, functional transfers , dynamic sitting balance Pt seen by STATE TROOPER for 30 minutes with focus on dysphagia and respiratory support. Mid level pain in chest aggravated by RT treatments. Some relief with q4 Oxycodone & Tylenol./R CT Site with gauze & tegaderm. L leg blister pink, RICARDO. Stage II on buttocks intact & pink with A&D. Pt receptive to turns but not q2 at night Encourage frequent use of IS and flutter valve devices to aid in clearing secretions Up to chair for all meals Limit interruptions at mealtimes to not moscoso patient through meals Transfer to bedside commode for toileting needs Monitor mood and encourage coping strategies Goals Speech Freight Flagman Goals STATE TROOPER Freight [place]man Goals: Yes Patient will exhibit safe swallow for least restrictive consistency: Progressing Other Freight [place]man Goals: Achieved Weekly Goals Weekly Bed Mobility Goals: Patient will perform sit to supine with, Patient will perform supine to sit with Patient will perform sit to supine with: Minimum assistance Patient will perform supine to sit with: Minimum assistance Weekly Transfer Goals: Patient will complete sit to stand transfer with, Patient will complete stand to sit transfer with, Patient will complete stand pivot transfer with Patient will complete sit to stand transfer with: Moderate assistance Patient will complete stand to sit transfer with: Moderate assistance Patient will complete stand pivot transfer with: Moderate assistance Weekly Ambulation/Stairs Goals: Patient will ambulate Patient will ambulate: (10' with two person assist, wheelchair follow) Weekly Wheelchair Goals: Patient will propel manual wheelchair on level surfaces with Patient will propel manual wheelchair on level surfaces with: Minimum assistance Weekly Goals Patient Will Perform Bathing: w/ Maximum Assist Patient Will Perform UE Dressing: w/ Setup Patient Will Perform LE Dressing: w/ Maximum Assist Patient Will Perform Grooming: w/ Stand By Assist, in Chair Patient Will Perform Toileting: w/ Maximum Assist Pt Will Perform All Functional Transfers: Maximum Assist Speech Short Term Goals Dysphagia: Yes Will tolerate current diet without signs of aspiration: Progressing Will participate in repeat instrumental swallow evaluation when clinically indicated: Progressing Nursing Short Term Goals Bladder Management: Yes [...] swallowing precautions / techniques with: Progressing Functional Bradford Measures Eating FIM: 5 - Verbal cues, coaxing Grooming FIM: 5 - Set up Bathing FIM: 3 - Moderate assistance, patient performs 50-74% or more of grooming/bathing/dressing/toileting tasks Dressing - Upper Body FIM: 5 - Set up Dressing - Lower Body FIM: 1 - Total assistance, requires 2 staff to assist Toileting FIM: 1 - Total assistance, requires 2 staff to assist Bladder FIM: 5 - Emptying device by staff Bowel FIM: 6 - No bowel movement, medication Transfers FIM: 1 - Total assistance, two or more people Toilet Transfers FIM: 1 - Total assistance, two or more people Tub Transfers FIM: 1 - Total assistance, two or more people Shower Transfers FIM: 1 - Total assistance, two or more people Gait: 0 - Activity did not occur - Unable due to motor control Wheelchair FIM: 0 - Acitivity did not occur - Unable due to motor control Stairs FIM: 0 - Activity did not occur - Unable due to motor control Comprehension FIM: 6 - Modified independence - only mild difficulty understaing complex/abstract information, no prompting required Expression FIM: 6 - Modified independence - Able to express abstract information , mild difficulty but no prompting Social Interaction FIM: 6 - Modified independence - Able to interact in most situations and no prompting required Problem Solving FIM: 6 - Modified independence - Able to recognize problems with only mild difficulty, makes appropriate decisions, initiates and carries out a sequence of steps to solve complex problems, no prompting Memory FIM: 6 - Modified independence - Able to recognize people frequently encountered, remembers daily routines, responds to requests of others with only mild difficulty, no prompting K GRADER Associated attestation - Beatriz Ortiz MD - 01/05/2018 3:57 PM STOCK GRADER I personally led the interdisciplinary team meeting and concur with all decisions made by the interdisciplinary team. Beatriz Ortiz MD * Case Mgmt DC Plan - Adair Coburn - 01/04/2018 1:13 PM STOCK GRADER Case Management Admission AssessmentNAME:Darrius Salas :1955 AGE: 62 y.o. ADMISSION DATE: 12/31/2017 DAYS ADMITTED: LOS: 4 days Todays Date: 01/04/2018 Source of Information: Pt Plan Plan: Psychosocial Assessment, Assist PRN with SW/NCM Services, Discharge Planning for Home Anticipated Patient Address/Phone [address] [phone] (home) Emergency Contact Extended Emergency Contact Information Primary Emergency Contact: Rachel Salas [facility] Relation: Spouse Secondary Emergency Contact: Jeovany Salas [facility] Relation: Son Healthcare Directive Healthcare Directive: No, patient does not have a healthcare directive Would patient like to fill out a (a new) Healthcare Directive?: No, patient declined Transportation Transportation Name, Phone and Availability #1: Pt' Rachel [phone] Transportation Name, Phone and Availability #2: Son Jeovany [phone] Does the patient use Medicaid Transportation?: No Expected Discharge Date Expected Discharge Date: 01/28/18 Living Situation Prior to Admission ? Living Arrangements Type of Residence: Home, independent Living Arrangements: Spouse/significant other Bathroom Shower / Tub: Tub Only (Pt reports he currently has a tub only, but family may remodel to add a walk in shower) How many levels in the residence?: 1 Can patient live on one level if needed?: Yes Does residence have entry and/or side stairs?: Yes (5 entry steps with hand rail ) Assistance needed prior to admit or anticipated on discharge: No Who provides assistance or could if needed?: Pt's Rachel, adult children Kalyan Thayer, Viridiana Are they in good health?: Yes Can [...] support and she cares 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 Rachel may start providing daycare at her and pt's home, so that she is able to assist pt as needed. 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 Pt also has two sisters in [place], Irlanda and Michelle, who can assist intermittently. Pt feels his family can provide consistent and physical assistance, as needed. Pt was on 2-3 liters of nocturnal oxygen prior to admission, provided by [facility] Patient. Pt also owns a standard [...] about 9 months ago. PCP is at [facility] in [place]. Pt also follows with [facility]into for Cardiology: Dr. Nolen, and pulmonary: Dr. Gunter. ? [facility] [place] [facility] [address] [id number] ? Durable Medical Equipment Durable Medical Equipment [...] In the past Name of rehab location/group: Cardiac Rehab [facility] Would patient return for future services?: Yes OT: No STATE TROOPER: No ? Alf Facility[facility] SNF: No NH: No ? Inpatient Rehab IPR: No ? [facility] Acute [facility] Hospital LTACH: No ? Acute Hospital Stay Acute Hospital Stay: Yes Was patient's stay within the last 30 days?: Yes When did patient receive care?: December 2017 Name of hospital: [facility] Adair Coburn LMSW Phone: [phone] Pager: [phone] K GRADER * Rehab Care Plan - Beatriz Ortiz MD - 01/03/2018 1:20 PM STOCK GRADER Physical Medicine & Rehabilitation Individualized Overall Plan of Care Date of Service: 01/03/2018 Darrius Salas is a 62 y.o. male. : 1955 Insurance: Medicare Date of Admission: 12/31/2017 Hospital Course: Mr. Darrius Salas is a 62-year-old male who transferred to [facility] on 11/13/2017 after initially presenting to an outside hospital on 10/31/2017 for pneumonia. Patient's hospital course was complicated by septic shock, acute on chronic hypoxic respiratory failure requiring intubation twice and atrial fibrillation with RVR s/p failed cardioversion. Patient was transferred to [facility] as the patient was failing at the [...] multifocal infection. Also of note found to have bibasilar atelectasis, small effusions and marked emphysema. On [...] noted right upper quadrant mass. 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 On 12/22/2017-12/29/2017 patient had a chest tube inserted. As noted, patient's hospital course was complicated by significant oxygen requirements over a long hospital stay. Patient is now tolerating 2- 3 liters with activity. However, patient does not require oxygen during the day at baseline. Patient's past medical history includes COPD, tobacco abuse, persistent atrial fibrillation on xarelto, coronary artery disease s/p PCI in 2012, heart failure with ejection fraction of 45-50%, anemia. Further, patient's hospital course was complicated by medical complexity as noted above and impaired mobility and activities of daily living. Patient has been working with physical and occupational therapies since 2017 and has been making functional progress. Patient has been working with speech language pathology since 11/14/2017 for swallow assessment. Rehab Diagnosis: debility due to respiratory failure Dysphagia, Pain, Weakness and Wounds Medical Course since IRF Admission: The patients clinical course since admission has been complicated. The patient has been able to participate fully in the rehabilitation program due to stable medication condition and we have addressed in the following ways: his respiratory status remains tenuous and there was a rapid response team event over the weekend with oxygen desaturations. We now have cough assist in place, STATE TROOPER will work on expiratory muscle training, and we have consulted Pulmonary to assist in his complicated respiratory failure management. Medical Prognosis: Good The patient has a reasonable likelihood of fully participating in and completing the IRF stay based on ability to manage medical issues including PNA with respiratory failure, septic shock, afib with RVR, PEA arrest with broken ribs, dysphagia, pleural effusion, COPD, CHF. There is a reasonable expectation of several years of productive life in a community setting in which they will benefit from this stay. This patient meets medical necessity requiring the intensity of therapy available at the [facility]. The patient can participate in and can fully benefit from the services offered in the IRF setting including 24 hour rehabilitation nursing, daily oversight from the Surveyor Hydrographic, and complex interdisciplinary rehab as noted below. Functional Bradford Measures (FIMS) Current Level of Function Evaluation FIMS Current FIMS Eating FIM: 1 - Total assistance, tube feeding for nutrition and/or hydration ( tube feeds at night) Grooming FIM: 3 - Moderate assistance, patient performs 50-74% or more of grooming/bathing/dressing/toileting tasks Bathing FIM: 1 - Total assistance, requires 2 staff to assist Dressing - Upper Body FIM: 4 - Minimal contact assistance, patient performs 75% or more of grooming/bathing/dressing/toileting tasks Dressing - Lower Body FIM: 1 - Total assistance, requires 2 staff to assist Toileting FIM: 6 - Modified independence - Device Bladder FIM: 5 - Emptying device by staff Bowel FIM: 6 - No bowel movement, medication Transfers FIM: 1 - Total assistance, two or more people Toilet Transfers FIM: 1 - Total assistance, two or more people Tub Transfers FIM: 1 - Total assistance, two or more people Gait: 0 - Activity did not occur - Unable due to motor control Wheelchair FIM: 0 - Acitivity did not occur - Unable due to motor control Stairs FIM: 0 - Activity did not occur - Safety Comprehension FIM: 5 - Standby prompting. Understands abstract and/or basic information greater than 90% of the time, prompting less than 10% Expression FIM: 5 - Standy prompting - Able to express abstract and/or basic information >90% of the time, prompting <10% Social Interaction FIM: 6 - Modified independence - Able to interact in most situations and no prompting required Problem Solving FIM: 4 - Minimal prompting - Able to solve routine problems 75- 90% Memory FIM: 5 - Supervision - Able to recognize people frequently encountered, remembers daily routines, responds to requests of others requiring prompting only under stressful or unfamiliar conditions, no more than 10% of time Eating FIM: 5 - Verbal cues, coaxing Grooming FIM: 3 - Moderate assistance, patient performs 50-74% or more of grooming/bathing/dressing/toileting tasks Bathing FIM: 1 - Total assistance, requires 2 staff to assist Dressing - Upper Body FIM: 4 - Minimal contact assistance, patient performs 75% or more of grooming/bathing/dressing/toileting tasks Dressing - Lower Body FIM: 1 - Total assistance, requires 2 staff to assist Toileting FIM: 1 - Total assistance, patient performs less than 25% of grooming/ bathing/dressing/toileting tasks Bladder FIM: 1 - Total assistance, patient expends less than 25% effort ( complete % of assist, if change diapers, total assist) Bowel FIM: 6 - No bowel movement, medication Transfers FIM: 1 - Total assistance, two or more people Toilet Transfers FIM: 1 - Total assistance, two or more people Tub Transfers FIM: 1 - Total assistance, two or more people Gait: 0 - Activity did not occur - Unable due to motor control Wheelchair FIM: 0 - Acitivity did not occur - Unable due to motor control Stairs FIM: 0 - Activity did not occur - Safety Comprehension FIM: 6 - Modified independence - only mild difficulty understaing complex/abstract information, no prompting required Expression FIM: 6 - Modified independence - Able to express abstract information , mild difficulty but no prompting Social Interaction FIM: 6 - Modified independence - Able to interact in most situations and no prompting required Problem Solving FIM: 5 - Standby prompting - Able to recognize problems, make appropriate decisions, initiates and carries out a sequence of steps to solve routine problems >90% of the time, prompting <10% Memory FIM: 5 - Supervision - Able to recognize people frequently encountered, remembers daily routines, responds to requests of others requiring prompting only under stressful or unfamiliar conditions, no more than 10% of time Physical Therapy Goals Patient will perform: household mobility, at ambulation level, Minimum assistance, with device Occupational Therapy Goals Pt will perform basic care and transfer with: Stand by assistance, Roller walker level, Wheelchair level (unsure roller walker vs wheelchair level at this time) Speech Therapy Goals STATE TROOPER Shelter Goals: Yes Other Freight [place]man Goals: Pt will participate in further assessment of higher level cognition. Nursing Goals patient will manage medications independently, monitor skin, have continent bowel and bladder programs Additional therapeutic disciplines may be included during this stay if indicated during interdisciplinary communication and will be noted in the daily progress notes when relevant. Social Work will address discharge planning needs. Rehabilitation Plan Patient will receive Physical therapy and Occupational therapy each 90 minutes a day , 5 days a week (STATE TROOPER may also see for cognition but not as frequently) for a total of 3 hours daily (minimum) for the duration of the rehabilitation stay within an interdisciplinary rehabilitation program with case picker/ family welfare social work professor, therapeutic recreation specialist, neuropsychologist, rehab nursing and PM&R oversight. Rehabilitation Prognosis: Good, anticipate steady functional gains with PT, OT, and STATE TROOPER to return home with family support. Tolerance [...] Updated per therapy evaluation as above. Barriers & Interventions: Caregiver Apprehension: Arrange caregiver support and discuss barriers and patient progress with caregivers when appropriate. Functioning at Wheelchair Level: Adaptive equipment, create wide,/clear paths, home modifications, alternative transportation arrangements, vehicle modifications, pursue home ramp access, and remove home obstacles. High [place] of Care: Initiate interdisciplinary rehabilitation to improve functional independence and reduce burden of care. Home Accessibility: Work with family to obtain home measurements of doorways, bathroom access, and stair set-up to plan for appropriate adaptive equipment and home modifications as necessary. Inaccessible Transportation: Alternative transportation arrangements and/or vehicle modifications. Medication Education: Pharmacist and nursing staff to provide education to patient and family regarding medication side effects, special precautions, and safe administration. Poor Strength / Endurance: Patient will continue to work with intense physical and occupational therapy to gain strength and endurance for a safe discharge to home. Facilitators: good family / social support, patient motivation and improving medical condition Discharge Planning Expected Length of Stay: 21-24 days Expected Discharge Disposition: Home Expected Discharge Needs: PT, OT, STATE TROOPER and Nursing. Patient will likely benefit from a wheelchair, ramp, shower chair/tub transfer bench, handheld shower head [...] this rehabilitation diagnosis and accompanying comorbidities. Beatriz Oritz MD 01/03/18 1:20 PM K GRADER * Response Teams - Elsa Vallecillo RN - 01/02/2018 12:55 AM STOCK GRADER Rapid Response Team Progress Note Date: 01/02/2018 Time: 12:55 AM Patient: Darrius Salas Attending: Beatriz Ortiz MD Service: Rehab Medicine Admission Date: 12/31/2017 LOS: 2 days A Code/Rapid Response Timeline Event Report has been created for this patient on 01/02/18 at 0011. TECHNICAL SERVICE SPECIALIST activated for increased WOB and O2 requirements. On arrival, pt sats 98% on 10L NRB. NRB removed and O2 titrated. Lungs are coarse on auscultation with upper airway noise. RT performed NTS, plan to bring cough assist device to bedside. Able to titrate to baseline 3L NC. Dr. Santoro notified, orders given for labs and chest x-ray; physician to come to bedside. PO2 69 on POC ABG, will leave pt on 4L NC overnight. Pt complaining of chest pain consistent with what he has been experiencing, primary RN to administer PRN pain medication. Pt's at bedside throughout response. TECHNICAL SERVICE SPECIALIST to follow up per standard. ~0335: Spoke with inpatient rehab UC regarding pt follow up. Pt breathing is back to baseline, tolerating 4LNC. HR remains low 100s. Pain is being controlled with available PRNs. No further support from TECHNICAL SERVICE SPECIALIST needed at this time. Elsa Vallecillo RN K GRADER * Advanced Care Planning/Resuscitation Status - Nela Santoro MD - 12/31/2017 4:55 PM STOCK GRADER Advance Care Planning/Resuscitation Status Conversation Individuals present for advance care planning conversation: resident/fellow physician and patient Pertinent details of conversation (including direct quotes from patient or surrogate): DNAR-FI (does not want CPR or intubation; ok with IV medications, other means of oxygenation not requiring intubation) Outcome of conversation: DNAR - Full Intervention Documents completed as a result of this conversation: None Other documents present, which outline patient/surrogate wishes: None K GRADER * Rehab Pre-Admission Screening - Tim Joiner MD - 12/31/2017 10:08 AM STOCK GRADER Physical Medicine & Rehabilitation Pre-Admission Screening Darrius Salas is a 62 y.o. male. : 1955 Primary Insurance: MEDICARE Secondary Insurance: [place] Financial Class: Medicare Date of Hospital Admission: 11/13/2017 Date of Expected Rehab Admission: 12/31/2017 Precautions: Fall Weight bearing Precautions: none Medical Course Hospital Course: Mr. Darrius Salas is a 62-year-old male who transferred to [facility] on 11/13/2017 after initially presenting to an outside hospital on 10/31/2017 for pneumonia. Patient's hospital course was complicated by septic shock, acute on chronic hypoxic respiratory failure requiring intubation twice and atrial fibrillation with RVR s/p failed cardioversion. Patient was transferred to [facility] as the patient was failing at the [...] multifocal infection. Also of note found to have bibasilar atelectasis, small effusions and marked emphysema. On [...] noted right upper quadrant mass. 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 On 12/22/2017-12/29/2017 patient had a chest tube inserted. As noted, patient's hospital course was complicated by significant oxygen requirements over a long hospital stay. Patient is now tolerating 2- 3 liters with activity. However, patient does not require oxygen during the day at baseline. Patient's past medical history includes COPD, tobacco abuse, persistent atrial fibrillation on xarelto, coronary artery disease s/p PCI in 2012, heart failure with ejection fraction of 45-50%, anemia. Further, patient's hospital course was complicated by medical complexity as noted above and impaired mobility and activities of daily living. Patient has been working with physical and occupational therapies since 2017 and has been making functional progress. Patient has been working with speech language pathology since 11/14/2017 for swallow assessment. Prior Level of Function Self-Care/ADLs: Independent with homemaking w/ ambulation;Independent with ADLs [...] Support System: Spouse, Rachel (retired); sons and [id number] Other DME: CPAP Current Level of Function Physical Therapy: (12/30/2017) BED MOBILITY/TRANSFERS: Bed Mobility: Supine to Sit: Minimal Assist;Assist with Trunk Transfer Type: Sit to Stand Transfer: Assistance Level: To/From;Bed;Minimal Assist;x2 People Transfer: Assistive Device: Hand Hold Assist Other Transfer Type: Sit to Stand Other Transfer: Assistance Level: To/From;Bed;Minimal Assist;x2 People GAIT: Gait Distance: (4-5 steps with transfer to wheelchair) Gait: Assistance Level: Moderate Assist;x2 People Gait: Assistive Device: Hand Hold Assist The patient demonstrates ability to appropriately weight shift with minimal cueing. Requires blocking of LE upon weight acceptance to prevent buckling. Cues for appropriate techniques with breathing. WHEELCHAIR MOBILITY: Once up in wheelchair patient able to advance legs while therapist pushing wheelchair for approximately 10 feet. ASSESSMENT/PROGRESS: Assessment/Progress: Progressing Toward Goals - The patient demonstrated improvement in ability to attempt steps today with transfer to chair - appropriately weight shifted. Was able to sit up in bedside chair yesterday for 50 minutes. The patient continues to make gains which would warrant an inpatient rehab stay at discharge from acute - as the patient is far from baseline. Occupational Therapy: (12/30/2017) ADL's Where Assessed: Edge of Bed Equipment Provided: Post Manager;Sock Aid Grooming Assist: Stand By Assist Grooming Deficits: Setup;Wash/Dry Face;Teeth Care LE Dressing Assist: Maximum Assist LE Dressing Deficits: Don/Doff R Sock;Use of Adaptive Equipment Functional Transfer Assist: Moderate Assist Functional Transfer Deficits: Steadying;Increased Time to Complete Comment: Patient required min assist for supine to sit transfer. Able to sit on edge of bed with supervision to complete grooming tasks with setup. After skilled demonstration of use of AE for LE dressing, patient able to demonstrate understanding and doff and don R sock. Patient returned to supine with moderate assist for B LE management. Activity Tolerance Endurance: 3/5 Tolerates 25-30 Minutes Exercise w/Multiple Rests Sitting Balance: 4/5 Moves/Returns Trunkal Midpoint 1-2 Inches in Multiple Planes Cognition Overall Cognitive Status: WFL to Adequately Complete Self Care Tasks Safely Assessment Assessment: Decreased ADL Status;Decreased UE Strength;Decreased Endurance; Decreased Self-Care Trans;Decreased High-Level ADLs Prognosis: Good;w/Cont OT s/p Acute Discharge Goal Formulation: Patient Comments: Patient with significant proximal weakness due to prolonged hospitalization and is currently requiring assist for all mobility and self care. Patient making progress with therapies and tolerating mobility out of bed throughout the day. Patient would benefit from ongoing therapy at discharge to continue to improve independence with ADLS and mobility. Speech Therapy: (12/30/2017) SUMMARY OF THERAPY SESSION: Follow up this date for ongoing dysphagia treatment completed.Overall, pt presents with mild oropharyngeal dysphagia; compensating well with consistent use of strategies. Pt continues to exhibit baseline cough. No overt s/s of aspiration with several trials of thin liquids and regular solids. Pt utilized independent production of compensatory swallow strategies with 100% accuracy. Discussed trialing PO meds (as outlined below) with patient before transition to rehab with RN /primary team. Per EMR, white blood count stable without worsening of chest xray. Plan for d/c to IPR tomorrow.Please see below for details/recommendations. RECOMMENDATIONS Regular Solids,thin liquids. Essential Strategies: Small bites/sips. Slow rate. Head turn LEFT with solids/liquids w/ 2 effortful swallows per bolus. *If exhibiting negative pulmonary status changes, please cease PO intake. Medications crushed/whole in puree Frequent oral care (2-3x/daily) Ongoing speech therapy warranted. Speech therapy to monitor toleration of dietwarranted at next level of care. Rehabilitation Plan Rehab Diagnosis and conditions that require Rehabilitation: debility due to respiratory failure Dysphagia, Pain, Weakness and Wounds Active Comorbidities/Risk of Medical Complications: Respiratory distress: Secondary to pneumonia. Patient was ventilated multiple times during hospital stay. Patient has required the use of oxygen supplementation Patient current oxygen saturation is WNL with 2-3 liters of oxygen via nasal cannula. Continue to monitor and manage. Patient encouraged to mobilize as able and utilize incentive spirometer every hour while awake. Risk for Pneumonia: secondary to decreased mobility and pain- Staff will encourage patient to utilize their incentive spirometer every 1 hour while awake. Atrial fibrillation: Patient is at risk for recurrent atrial fibrillation with RVR, other tachyarrhythmias, embolism, and stroke. Will continue to monitor and manage. CHF: Patient is at risk for volume overload, acute respiratory failure, over diuresis, and other cardiac events. Ongoing assessment of patient's respiratory and volume status, especially during therapies. Check daily weights while in rehab. COPD: Patient is at risk for dyspnea, increased work of breathing, increased oxygen needs, and acute respiratory failure. Ongoing assessment of patient's respiratory status, especially during therapies and use supplemental O2 as needed. Continue inhalers/nebulizer treatments per RT. Hypertension: Patient is at risk for hyper/hypotension during aggressive mobilization program with therapies, and requires daily physician monitoring and adjustment of medications. Will continue to monitor and manage for optimal blood pressure control and resume home medications as able. Hyperlipidemia: Will continue to monitor and manage, and adjust medications as needed. Wound care: Patient is at risk for worsening wound, wound infection, osteomyelitis or cellulitis and needs ongoing rehabilitation nurse management and assessment. Nursing to assess each shift. Risk for skin breakdown: secondary to decreased movement - Encourage and assist patient with mobility every two hours. Thrombocytosis: Patient is at a greater risk for blood clots and needs daily physician monitoring of labs and DVT prevention. Will encourage patient to mobilize frequently with staff assistance. Hyponatremia: Patient is at risk for worsening electrolyte imbalance and will require physician monitoring of labs and adjustments to medications and fluid intake. Will continue to monitor and manage, as this may affect patient' s cognitive status. Decreased endurance: Patient is having concerns of decreased endurance which can affect their ability to actively participate in therapies. Patient will work with the Rehab team to establish a plan that best meets there tolerance for therapies while achieving the success of rehab recovery Dysphagia: Currently tolerating regular diet. Dysphagia puts him at risk for aspiration and pneumonia. Aspiration precautions in place. Muscle weakness: Patient has demonstrated muscle weakness in the UE/LE, based upon the rehab consult physical examination. Patient would continue to work with PT/OT to improve strength in order to prevent falls and other injuries. Patient will receive Physical therapy, Occupational therapy and Speech therapy each 60 minutes a day, 5 days a week for a total of 3 hours daily (minimum) for the duration of the rehabilitation stay within an interdisciplinary rehabilitation program with case picker/family welfare social work professor, therapeutic recreation specialist, neuropsychologist, rehab nursing and PM&R oversight. Rehabilitation Prognosis: Fair Medical Prognosis: The patient is deemed medically stable to tolerate, benefit from, and participate in [facility] level services. Tolerance for three hours of therapy a day: Fair- Patient has participated well with therapies and is anticipated to tolerate 3 hours of therapy per day, as required. Goals/Barriers/Facilitators Family / Patient Goals: return home with family assistance Mobility Goals: Overall goal is Minimum assistance and Physical Therapy will evaluate and treat ambulation/wheelchair use and bed transfers Activities of Daily Living (ADLs) Goals: Overall goal is Minimum assistance and Occupational therapy will evaluate and treat basic Activities of Daily Living Cognition / Communication Goals: Overall goal is Modified independent and Speech therapy will evaluate and treat cognition and communication deficits and assess for safe swallow Barriers & Interventions: Caregiver Apprehension: Arrange caregiver support and discuss barriers and patient progress with caregivers when appropriate. Functioning at Wheelchair Level: Adaptive equipment, create wide,/clear paths, home modifications, alternative transportation arrangements, vehicle modifications, pursue home ramp access, and remove home obstacles. High [place] of Care: Initiate interdisciplinary rehabilitation to improve functional independence and reduce burden of care. Home Accessibility: Work with family to obtain home measurements of doorways, bathroom access, and stair set-up to plan for appropriate adaptive equipment and home modifications as necessary. Inaccessible Transportation: Alternative transportation arrangements and/or vehicle modifications. Medication Education: Pharmacist and nursing staff to provide education to patient and family regarding medication side effects, special precautions, and safe administration. Poor Strength / Endurance: Patient will continue to work with intense physical and occupational therapy to gain strength and endurance for a safe discharge to home. Facilitators: good family / social support, patient motivation and improving medical condition Discharge Planning Expected Length of Stay: 21-24 days Expected Discharge Disposition: Home Expected Discharge Needs: PT, OT, STATE TROOPER and Nursing. Patient will likely benefit from a wheelchair, ramp, shower chair/tub transfer bench, handheld shower head to improve patient safety and decrease risk for falls. Patient will be evaluated by physical and occupational therapy for most appropriate equipment recommendations. Kierra Higgins, PT, DPT I have reviewed this pre-admission screen and approve the recommendations and plans for admission. Darrius Salas is a 62 y.o. male who was admitted with complicated by septic shock, acute on chronic hypoxic respiratory failure requiring intubation, acute on chronic heart failure with resulting weakness, physical deconditioning and likely critical illness myopathy. The patent has persistent deficits and goals with PT, OT, and STATE TROOPER and complexity including risk for pneumonia, a fib, wound care, risk for skin breakdown, thrombocytosis, hyponatremia, now requiring closer monitoring as physical requirements in rehabilitation increase and potentially impacting functional recovery, which puts the patient at risk of falls, skin breakdown/DVT in the setting of decreased mobility, post procedural wound care with risk for infection. Additionally, the patient will likely benefit from aggressive clinical education including management of safe mobility , wound care, safe mobility, to improve compliance and reduce likelihood of [...] will have intensive therapies with physical therapy 1 hour(s), occupational therapy 1 hour(s), and speech language pathology 1 hour(s) for a minimum of 3 hours a day 5 days a week for the duration of the acute inpatient rehabilitation stay. Tim Joiner MD K GRADER in this encounter Plan of Treatment Date/Time Name Priority Associated Diagnoses 01/05/2018 11:57 AM STOCK GRADER POC ANES US GUIDED NERVE BLOCK Routine Order Schedule Name Priority Associated Diagnoses ONE TIME for 1 Occurrences starting 01/05/2018 until 01/05/2018 POC ANES US GUIDED NERVE BLOCK Routine as of this encounter Procedures Comments Procedure Name Priority Date/Time Associated Diagnosis CULTURE-FUNGAL,BLOOD 01/21/2018 W/SENSITIVITY 10:56 PM STOCK GRADER CULTURE-BLOOD Routine 01/21/2018 W/SENSITIVITY 10:[address] CHEST WO CONTRAST Routine 01/21/2018 3:08 PM STOCK GRADER CULTURE-BLOOD Routine 01/21/2018 W/SENSITIVITY 2:01 PM STOCK GRADER BASIC METABOLIC PANEL Routine 01/21/2018 CELLULAR THERAPEUTICS 5:35 AM STOCK GRADER CBC CELLULAR THERAPEUTICS Routine 01/21/2018 5:35 AM STOCK GRADER BASIC METABOLIC PANEL Routine 01/20/2018 5:08 AM STOCK GRADER CULTURE-BLOOD Routine 01/19/2018 W/SENSITIVITY 3:50 PM STOCK GRADER CULTURE-BLOOD Routine 01/19/2018 W/SENSITIVITY 3:47 PM STOCK GRADER BASIC METABOLIC PANEL Routine 01/19/2018 CELLULAR THERAPEUTICS 6:15 AM STOCK GRADER CBC CELLULAR THERAPEUTICS Routine 01/19/2018 6:15 AM STOCK GRADER MAGNESIUM Add on 01/19/2018 6:15 AM STOCK GRADER CBC Routine 01/18/2018 10:35 AM STOCK GRADER BASIC METABOLIC PANEL Routine 01/18/2018 10:35 AM STOCK GRADER BASIC METABOLIC PANEL Routine 01/17/2018 CELLULAR THERAPEUTICS 6:05 AM STOCK GRADER CBC CELLULAR THERAPEUTICS Routine 01/17/2018 6:05 AM STOCK GRADER CMV QUANT PCR-BLOOD Routine 01/17/2018 6:05 AM STOCK GRADER CULTURE-BLOOD STAT 01/16/2018 W/SENSITIVITY 3:35 PM STOCK GRADER CULTURE-BLOOD STAT 01/16/2018 W/SENSITIVITY 3:30 PM STOCK GRADER CHEST SINGLE VIEW Routine 01/16/2018 11:22 AM STOCK GRADER UA REFLEX CULTURE LABEL Routine 01/16/2018 11:00 AM STOCK GRADER URINALYSIS MICROSCOPIC Routine 01/16/2018 REFLEX TO CULTURE 11:00 AM STOCK GRADER URINALYSIS DIPSTICK Routine 01/16/2018 REFLEX TO CULTURE 11:00 AM STOCK GRADER CBC AND DIFF Routine 01/16/2018 10:51 AM STOCK GRADER COMPREHENSIVE METABOLIC Routine 01/16/2018 PANEL 10:51 AM STOCK GRADER GRAM STAIN 01/16/2018 10:33 AM STOCK GRADER CULTURE-RESP,LOWER Routine 01/16/2018 W/SENSITIVITY 10:33 AM STOCK GRADER BASIC METABOLIC PANEL Routine 01/14/2018 CELLULAR THERAPEUTICS 6:15 AM STOCK GRADER CBC CELLULAR THERAPEUTICS Routine 01/14/2018 6:15 AM STOCK GRADER BASIC METABOLIC PANEL Routine 01/12/2018 CELLULAR THERAPEUTICS 6:10 AM STOCK GRADER CBC CELLULAR THERAPEUTICS Routine 01/12/2018 6:10 AM STOCK GRADER CMV QUANT PCR-BLOOD Routine 01/10/2018 6:05 AM STOCK GRADER CBC AND DIFF Routine 01/10/2018 6:05 AM STOCK GRADER COMPREHENSIVE METABOLIC Routine 01/10/2018 PANEL 6:05 AM STOCK GRADER TELEMETRY STRIPS-SCAN 01/08/2018 1:28 PM STOCK GRADER BASIC METABOLIC PANEL Routine 01/07/2018 CELLULAR THERAPEUTICS 5:50 AM STOCK GRADER CBC CELLULAR THERAPEUTICS Routine 01/07/2018 5:50 AM STOCK GRADER BASIC METABOLIC PANEL Routine 01/05/2018 CELLULAR THERAPEUTICS 5:45 AM STOCK GRADER CBC CELLULAR THERAPEUTICS Routine 01/05/2018 5:45 AM STOCK GRADER BASIC METABOLIC PANEL Routine 01/04/2018 CELLULAR THERAPEUTICS 5:45 AM STOCK GRADER CBC CELLULAR THERAPEUTICS Routine 01/04/2018 5:45 AM STOCK GRADER CBC CELLULAR THERAPEUTICS Routine 01/03/2018 6:11 AM STOCK GRADER CMV QUANT PCR-BLOOD Routine 01/03/2018 6:11 AM STOCK GRADER COMPREHENSIVE METABOLIC Routine 01/03/2018 PANEL 6:11 AM STOCK GRADER BASIC METABOLIC PANEL Routine 01/02/2018 CELLULAR THERAPEUTICS 6:10 AM STOCK GRADER CBC CELLULAR THERAPEUTICS Routine 01/02/2018 6:10 AM STOCK GRADER CHEST SINGLE VIEW STAT 01/02/2018 1:15 AM STOCK GRADER POC BLOOD GAS ARTERIAL 01/02/2018 12:57 AM STOCK GRADER POC SODIUM 01/02/2018 12:57 AM STOCK GRADER POC POTASSIUM 01/02/2018 12:57 AM STOCK GRADER POC IONIZED CALCIUM 01/02/2018 12:57 AM STOCK GRADER POC HEMATOCRIT 01/02/2018 12:57 AM STOCK GRADER LACTIC ACID (BG - RAPID Routine 01/02/2018 LACTATE) 12:40 AM STOCK GRADER TROPONIN-I Code 01/02/2018 12:40 AM STOCK GRADER PTT (APTT) Code 01/02/2018 12:40 AM STOCK GRADER PROTIME INR (PT) Code 01/02/2018 12:40 AM STOCK GRADER CBC Code 01/02/2018 12:40 AM STOCK GRADER PHOSPHORUS Code 01/02/2018 12:40 AM STOCK GRADER MAGNESIUM Code 01/02/2018 12:40 AM STOCK GRADER COMPREHENSIVE METABOLIC Code 01/02/2018 PANEL 12:40 AM STOCK GRADER BASIC METABOLIC PANEL Routine 01/01/2018 CELLULAR THERAPEUTICS 6:14 AM STOCK GRADER CBC CELLULAR THERAPEUTICS Routine 01/01/2018 6:14 AM STOCK GRADER in this encounter Results * CULTURE-FUNGAL,BLOOD W/SENSITIVITY (01/21/2018 10:56 PM STOCK GRADER) Battery Name FUNGUS BLOOD CULTURE MAIN LAB Specimen Description BLOOD MAIN LAB RIGHT PICC LINE RED LUMEN Special Requests NONE MAIN LAB Culture NO GROWTH OF FUNGUS AT 4 WEEKS [facility] Report Status FINAL MAIN LAB 02/21/2018 Specimen Blood Performing Organization Address [facility] Phone Number [facility] LAB [address] [place] [address] * CULTURE-BLOOD W/SENSITIVITY (01/21/2018 10:56 PM STOCK GRADER) Battery Name BLOOD CULTURE [facility] Specimen Description BLOOD MAIN LAB RIGHT PICC LINE RED LUMEN Special Requests NONE MAIN LAB Culture NO GROWTH 5 DAYS [facility] Report Status FINAL MAIN LAB 01/27/2018 Specimen Blood Performing Organization Address [facility] Phone Number [facility] [address] [place] [address] * CT CHEST WO CONTRAST (01/21/2018 3:08 PM STOCK GRADER) Impressions Performed At 1. Development of a moderate loculated right pneumothorax with anterior and [facility] RESULTS apical components.This was discussed with Dr. Santoro by telephone [...] calcification. 6. Healing bilateral anterior rib fractures. Finalized by Hi Morgan M.D. on 01/21/2018 4:18 PM. Dictated by Hi Morgan M.D. on 01/21/2018 4:01 PM. Narrative Performed At CT Chest [facility] RES[facility] Clinical Indication: Suspected infection. Pneumonia. Technique: Multiple contiguous axial CT images were obtained through the chest without IV contrast.Post processing coronal and sagittal reconstruction images were made from the axial images. Comparison: December 20, [address] Findings: A right PICC remains in place. [...] identified. Procedure Note Interface, Radiant Results - 01/21/2018 4:[address] Chest Clinical Indication: Suspected infection. Pneumonia. Technique: Multiple contiguous axial CT images were obtained through the chest without IV contrast. Post processing coronal and sagittal reconstruction images were made from the axial images. Comparison: December 20, [address] Findings: A right PICC remains in place. [...] calcification. 6. Healing bilateral anterior rib fractures. Finalized by Hi Morgan M.D. on 01/21/2018 4:18 PM. Dictated by Hi Morgan M.D. on 01/21/2018 4:01 PM. Performing Organization Address City/State/Zipcode Phone Number RAD RESULTS * CULTURE-BLOOD W/SENSITIVITY (01/21/2018 2:01 PM STOCK GRADER) Battery Name BLOOD CULTURE MAIN LAB Specimen Description BLOOD MAIN LAB PICC LINE Special Requests NONE [facility] Culture NO GROWTH 5 DAYS [facility] Report Status FINAL MAIN LAB 01/27/2018 Specimen Blood Performing Organization Address City/State/Zipcode Phone Number [facility] [address] [place] [address] * BASIC METABOLIC PANEL CELLULAR THERAPEUTICS (01/21/2018 5:35 AM STOCK GRADER) Sodium 133 (L) 137 - 147 MMOL/L [facility] Potassium 3.2 (L) 3.5 - 5.1 MMOL/L [facility] Chloride 96 (L) 98 - 110 MMOL/L [facility] CO2 32 (H) 21 - 30 MMOL/L [facility] Anion Gap 5 3 - 12 [facility] Glucose 84 70 - 100 MG/DL [facility] Blood Urea Nitrogen 5 (L) 7 - 25 MG/DL [facility] Creatinine 0.43 0.4 - 1.24 MG/DL [facility] [...] for questions. Specimen Blood Performing Organization Address City/[facility]/Zipcode Phone Number MAIN LAB [address] [place] [phone] * CBC CELLULAR THERAPEUTICS (01/21/2018 5:35 AM STOCK GRADER) White Blood Cells 19.4 (H) 4.5 - 11.0 K/UL [facility] RBC 2.94 (L) 4.4 - 5.5 M/UL [facility] Hemoglobin 10.2 (L) 13.5 - 16.5 GM/DL [facility] Hematocrit 31.0 (L) 40 - 50 % [facility] MCV 105.3 (H) 80 - 100 FL [facility] MCH 34.7 (H) 26 - 34 PG [facility] MCHC 33.0 32.0 - 36.0 G/DL [facility] RDW 17.9 (H) 11 - 15 % [facility] Platelet Count 412 (H) 150 - 400 K/UL [facility] MPV 7.5 7 - 11 FL [facility] Specimen Blood Performing Organization Address City/[facility]/Zipcode Phone Number [facility] [address] [place] [address] * BASIC METABOLIC PANEL (01/20/2018 5:08 AM STOCK GRADER) Sodium 134 (L) 137 - 147 MMOL/L [facility] Potassium 3.0 (L) 3.5 - 5.1 MMOL/L [facility] Chloride 97 (L) 98 - 110 MMOL/L [facility] CO2 31 (H) 21 - 30 MMOL/L [facility] Anion Gap 6 3 - 12 [facility] Glucose 100 70 - [...] for questions. Specimen Blood Performing Organization Address City/[facility]/Zipcode Phone Number [facility] [address] [place] [address] * CULTURE-BLOOD W/SENSITIVITY (01/19/2018 3:50 PM STOCK GRADER) Battery Name BLOOD CULTURE [facility] Specimen Description BLOOD MAIN LAB PICC LINE Special Requests NONE MAIN LAB Culture NO GROWTH 5 DAYS [facility] Report Status FINAL MAIN LAB 01/25/2018 Specimen Blood Performing Organization Address City[facility] Phone Number [facility] [address] [place] [address] * CULTURE-BLOOD W/SENSITIVITY (01/19/2018 3:47 PM STOCK GRADER) Battery Name BLOOD CULTURE [facility] Specimen Description BLOOD [facility] LEFT WRIST Special Requests NONE [facility] Culture NO GROWTH 5 DAYS [facility] Report Status FINAL MAIN LAB 01/25/2018 Specimen Blood Performing Organization Address City[facility] Phone Number [facility] [address] [place] [address] * MAGNESIUM (01/19/2018 6:15 AM STOCK GRADER) Magnesium 1.6 1.6 - 2.6 mg/dL [facility] Performing Organization Address [facility] Phone Number [facility] [address] [place] [address] * BASIC METABOLIC PANEL CELLULAR THERAPEUTICS (01/19/2018 6:15 AM STOCK GRADER) Sodium 131 (L) 137 - 147 MMOL/L [facility] Potassium 2.9 (L) 3.5 - 5.1 MMOL/L [facility] Chloride 93 (L) 98 - 110 MMOL/L [facility] CO2 33 (H) 21 - 30 MMOL/L [facility] Anion Gap 5 3 - 12 [facility] Glucose 106 (H) 70 - 100 MG/DL [facility] Blood Urea Nitrogen 6 (L) 7 - 25 MG/DL [facility] Creatinine 0.48 0.4 - 1.24 MG/DL [facility] Calcium 8.6 8.5 - 10.6 MG/DL [facility] [...] for questions. Specimen Blood Performing Organization Address City/[facility]/Zipcode Phone Number MAIN LAB [address] [place] [phone] * CBC CELLULAR THERAPEUTICS (01/19/2018 6:15 AM STOCK GRADER) White Blood Cells 10.4 4.5 - 11.0 K/UL [facility] RBC 2.66 (L) 4.4 - 5.5 M/UL [facility] Hemoglobin 9.2 (L) 13.5 - 16.5 GM/DL [facility] Hematocrit 27.7 (L) 40 - 50 % [facility] MCV 103.9 (H) 80 - 100 FL [facility] MCH 34.6 (H) 26 - 34 PG [facility] MCHC 33.3 32.0 - 36.0 G/DL [facility] RDW 18.1 (H) 11 - 15 % [facility] Platelet Count 336 150 - 400 K/UL [facility] MPV 6.9 (L) 7 - 11 FL [facility] Specimen Blood Performing Organization Address City/[facility]/Zipcode Phone Number [facility] [address] [place] [phone] * CBC (01/18/2018 10:35 AM STOCK GRADER) White Blood Cells 11.8 (H) 4.5 - 11.0 K/UL [facility] RBC 3.10 (L) 4.4 - 5.5 M/UL [facility] Hemoglobin 10.9 (L) 13.5 - 16.5 GM/DL [facility] Hematocrit 32.2 (L) 40 - 50 % [facility] MCV 104.1 (H) 80 - 100 FL [facility] MCH 35.1 (H) 26 - 34 PG [facility] MCHC 33.7 32.0 - 36.0 G/DL [facility] RDW 17.8 (H) 11 - 15 % [facility] Platelet Count 299 150 - 400 K/UL [facility] MPV 6.8 (L) 7 - 11 FL [facility] Specimen Blood Performing Organization Address City/[facility]/Zipcode Phone Number [facility] [address] [place] [address] * BASIC METABOLIC PANEL (01/18/2018 10:35 AM STOCK GRADER) Sodium 131 (L) 137 - 147 MMOL/L [facility] Potassium 3.3 (L) 3.5 - 5.1 MMOL/L [facility] Chloride 92 (L) 98 - 110 MMOL/L [facility] CO2 32 (H) 21 - 30 MMOL/L [facility] Anion Gap 7 3 - 12 [facility] Glucose 110 (H) 70 - 100 MG/DL [facility] Blood Urea Nitrogen 8 7 - 25 MG/DL [facility] Creatinine 0.71 0.4 - 1.24 MG/DL [facility] [...] for questions. Specimen Blood Performing Organization Address City/[facility]/Zipcode Phone Number [facility] [address] [place] [address] * BASIC METABOLIC PANEL CELLULAR THERAPEUTICS (01/17/2018 6:05 AM STOCK GRADER) Sodium 132 (L) 137 - 147 MMOL/L [facility] Potassium 3.2 (L) 3.5 - 5.1 MMOL/L [facility] Chloride 94 (L) 98 - 110 MMOL/L [facility] CO2 33 (H) 21 - 30 MMOL/L [facility] Anion Gap 5 3 - 12 [facility] Glucose 100 70 - 100 MG/DL [facility] Blood Urea Nitrogen 8 7 - 25 MG/DL [facility] Creatinine 0.59 0.4 - 1.24 MG/DL [facility]IN [facility] [...] for questions. Specimen Blood Performing Organization Address City/[facility] Phone Number [facility] [address] [place] [phone] * CBC CELLULAR THERAPEUTICS (01/17/2018 6:05 AM STOCK GRADER) White Blood Cells 13.7 (H) 4.5 - 11.0 K/UL [facility] RBC 2.78 (L) 4.4 - 5.5 M/UL [facility] Hemoglobin 9.9 (L) 13.5 - 16.5 GM/DL [facility] Hematocrit 29.3 (L) 40 - 50 % [facility] MCV 105.7 (H) 80 - 100 FL [facility] MCH 35.7 (H) 26 - 34 PG [facility] MCHC 33.8 32.0 - 36.0 G/DL [facility] RDW 18.4 (H) 11 - 15 % [facility] Platelet Count 277 150 - 400 K/UL MAIN LAB MPV 7.1 7 - 11 FL MAIN LAB Specimen Blood Performing Organization Address [facility] [place] Number [facility] [address] [place] [address] * CMV QUANT PCR-BLOOD (01/17/2018 6:05 AM STOCK GRADER) IU/mL CMV Blood <50 IU/mL [facility] The test method detects and quantitates CMV DNA using the [employer] RealTime assay, and is approved by the FDA for monitoring hematopoietic stem cell transplant patients who are undergoing anti-CMV therapy.Please correlate results with the clinical status of the patient. LOG10 CMV <1.7 MAIN LAB CMV DNA Quant PCR CMV DNA NOT DETECTED CMVND-CMV DNA NOT [facility] MAIN [facility] DETECTED [IU]/mL Specimen Blood Performing Organization Address City/[facility] Phone Number MAIN LAB [address] [place] [address] * CULTURE-BLOOD W/SENSITIVITY (01/16/2018 3:35 PM STOCK GRADER) Battery Name BLOOD CULTURE MAIN LAB Specimen Description BLOOD MAIN LAB PICC LINE TL RED PORT Special Requests NONE [facility] MAIN LAB Culture NO GROWTH 5 DAYS [facility] MAIN [facility] Report Status FINAL [facility] MAIN LAB 01/22/2018 Specimen Blood Performing Organization Address [facility] Phone Number AUTUMN MAIN LAB [address] [place] [address] * CULTURE-BLOOD W/SENSITIVITY (01/16/2018 3:30 PM STOCK GRADER) Battery Name BLOOD CULTURE [facility] MAIN LAB Specimen Description BLOOD MAIN LAB LEFT WRIST Special Requests NONE [facility] MAIN LAB Culture NO GROWTH 5 DAYS MAIN LAB Report Status FINAL MAIN LAB 01/22/2018 Specimen Blood Performing Organization Address [facility] Phone Number [facility]N MAIN LAB [address] [place] [address] * CHEST SINGLE VIEW (01/16/2018 11:22 AM STOCK GRADER) Narrative Performed At CHEST SINGLE VIEW [facility] RAD RESULTS Clinical Indication: Male, 62 years old. Worsening cough, fever, history of pleural effusion Comparison: Chest x-ray 01/02/2018 Findings: A right PICC line remains in place. The cardiac silhouette and pulmonary vasculature are within normal limits. Progression of diffuse mixed opacities throughout the right lung. Small right pleural effusion. No pneumothorax identified. Impression Progression in diffuse mixed opacities throughout the right lung, concerning for worsening pneumonia. Approved by Samuel Worthington M.D. on 01/17/2018 9:51 AM By my electronic signature, I attest that I have personally reviewed the images for this examination and formulated the interpretations and opinions expressed in this report Finalized by Amish Will M.D. on 01/17/2018 11:43 AM. Dictated by Samuel Worthington M.D. on 01/17/2018 7:25 AM. Procedure Note Interface, Radiant Results - 01/17/2018 11:47 AM STOCK GRADER CHEST SINGLE VIEW Clinical Indication: Male, 62 years old. Worsening cough, fever, history of pleural effusion Comparison: Chest x-ray 01/02/2018 Findings: A right PICC line remains in place. The cardiac silhouette and pulmonary vasculature are within normal limits. Progression of diffuse mixed opacities throughout the right lung. Small right pleural effusion. No pneumothorax identified. Impression Progression in diffuse mixed opacities throughout the right lung, concerning for worsening pneumonia. Approved by Samuel Worthington M.D. on 01/17/2018 9:51 AM By my electronic signature, I attest that I have personally reviewed the images for this examination and formulated the interpretations and opinions expressed in this report Finalized by Amish Will M.D. on 01/17/2018 11:43 AM. Dictated by Samuel Worthington M.D. on 01/17/2018 7:25 AM. Performing Organization Address [facility] Phone Number [facility] RES[facility] * UA REFLEX CULTURE LABEL (01/16/2018 11:00 AM STOCK GRADER) UA Reflex Culture LAB LABEL [facility] MAIN LAB Specimen Urine Performing Organization Address [facility] [place] Phone Number MAIN LAB [address] [place] [address] * URINALYSIS MICROSCOPIC REFLEX TO CULTURE (01/16/2018 11:00 AM STOCK GRADER) WBCs,UA 0-2 0 - 2 /HPF [facility] MAIN LAB RBCs,UA 0-2 0 - 3 /HPF [facility] MAIN [facility] Comment,UA Urine submitted for reflex [facility] MAIN LAB culture if criteria are met:WBC>10, positive nitrite and/or >=1+ leukocyte esterase. If quantity is not sufficient, an addendum will follow. MucousUA TRACE [facility] MAIN LAB Specimen Urine Performing Organization Address [facility] [place] Phone Number [facility] [address] [place] [address] * URINALYSIS DIPSTICK REFLEX TO CULTURE (01/16/2018 11:00 AM STOCK GRADER) Color,UA YELLOW [facility] MAIN [facility] Turbidity,UA CLEAR CLEAR-CLEAR [facility] MAIN [facility] Specific [place]-Urine 1.011 1.003 - 1.035 [facility] MAIN LAB pH,UA 5.0 5.0 - 8.0 [...] NEG NEG-NEG [facility] MAIN LAB Specimen Urine Performing Organization Address City/[facility]/Zipcode Phone Number MAIN LAB [address] [place] [address] * COMPREHENSIVE METABOLIC PANEL (01/16/2018 10:51 AM STOCK GRADER) Sodium 132 (L) 137 - 147 MMOL/L [facility] MAIN LAB Potassium 2.9 (L) 3.5 - 5.1 MMOL/L [facility] MAIN [facility] Chloride 94 (L) 98 - 110 MMOL/L [facility] MAIN LAB Glucose 111 (H) 70 - 100 MG/DL [facility] MAIN LAB Blood Urea Nitrogen 7 7 - 25 MG/DL [facility] MAIN [facility] Creatinine 0.50 0.4 - 1.24 MG/DL [facility] MAIN [facility] Calcium 8.6 8.5 - 10.6 MG/DL [facility] MAIN LAB Total Protein 6.9 6.0 - 8.0 G/DL [facility] MAIN LAB Total Bilirubin 0.5 0.3 - 1.2 MG/DL [facility] MAIN [facility] Albumin 2.8 (L) 3.5 - 5.0 G/DL [facility] MAIN LAB Alk Phosphatase 137 (H) 25 - 110 U/L [facility] MAIN LAB AST (SGOT) 15 7 - 40 U/L [facility] MAIN LAB CO2 32 (H) 21 - 30 MMOL/L [facility] MAIN [facility] ALT (SGPT) 11 7 - 56 U/L [facility] MAIN LAB [...] Organization Address City/State/Zipcode Phone Number MAIN LAB [address] [place] [address] * CBC AND DIFF (01/16/2018 10:51 AM STOCK GRADER) White Blood Cells 13.4 (H) 4.5 - 11.0 K/UL [facility] MAIN LAB RBC 2.99 (L) 4.4 - 5.5 M/UL [facility] MAIN LAB Hemoglobin 10.7 (L) 13.5 - 16.5 GM/DL [facility] MAIN LAB Hematocrit 31.4 (L) 40 - 50 % [facility] MAIN LAB MCV 105.0 (H) 80 - 100 FL [facility] MAIN LAB MCH 35.7 (H) 26 - 34 PG MAIN LAB MCHC 34.0 32.0 - 36.0 G/DL MAIN LAB RDW 18.8 (H) 11 - 15 % [facility] MAIN LAB Platelet Count 300 150 - 400 K/UL [facility] MAIN LAB [...] % [facility] MAIN LAB Absolute Neutrophil Count 12.00 (H) 1.8 - 7.0 K/UL MAIN LAB Absolute Lymph Count 1.00 1.0 - 4.8 K/UL MAIN LAB Absolute Monocyte Count 0.30 0 - 0.80 K/UL MAIN LAB Absolute Eosinophil Count 0.00 0 - 0.45 K/UL [facility] MAIN LAB Absolute Basophil Count 0.00 0 - 0.20 K/UL MAIN LAB Specimen Blood Performing Organization Address City/[facility] Phone Number MAIN LAB [address] [place] [address] * GRAM STAIN (01/16/2018 10:33 AM STOCK GRADER) Battery Name GRAM STAIN MAIN LAB Specimen Description SPUTUM MAIN LAB Special Requests NONE MAIN LAB Gram Stain GREATER THAN 25/LPF MAIN LAB NEUTROPHILS LESS THAN 10/LPF SQUAMOUS EPITHELIAL CELLS MODERATE GRAM NEGATIVE RODS FEW GRAM POSITIVE COCCI Report Status FINAL [facility] 01/16/2018 Specimen Sputum Performing Organization Address City/[facility] Phone Number MAIN LAB [address] [place] [address] * CULTURE-RESP,LOWER W/SENSITIVITY (01/16/2018 10:33 AM STOCK GRADER) Battery Name LOWER RESP CULTURE MAIN LAB Specimen Description SPUTUM MAIN LAB Special Requests NONE MAIN LAB Direct Gram Stain GREATER THAN 25/LPF MAIN LAB NEUTROPHILS LESS THAN 10/LPF SQUAMOUS EPITHELIAL CELLS MODERATE GRAM NEGATIVE RODS FEW GRAM POSITIVE COCCI Culture Light growth MAIN LAB PROTEUS MIRABILIS (A) Report Status FINAL MAIN LAB 01/19/2018 Organism ID Light growth [facility] MAIN LAB PROTEUS MIRABILIS Specimen Sputum Antibiotic Method Susceptibility Organism Amikacin AURELIA (MCG/ML) INTERPRETATION <=8 SUSCEPTIBLE: Susceptible Light growth proteus mirabilis Cefazolin AURELIA (MCG/ML) INTERPRETATION 4 SUSCEPTIBLE: Susceptible Light growth proteus mirabilis Ceftriaxone AURELIA (MCG/ML) INTERPRETATION <=1 SUSCEPTIBLE: Susceptible Light growth proteus mirabilis Gentamicin AURELIA (MCG/ML) INTERPRETATION 4 SUSCEPTIBLE: Susceptible Light growth proteus mirabilis Ertapenem AURELIA (MCG/ML) INTERPRETATION <=0.25 SUSCEPTIBLE: Susceptible Light growth proteus mirabilis Levofloxacin AURELIA (MCG/ML) INTERPRETATION <=1 SUSCEPTIBLE: Susceptible Light growth proteus mirabilis Amoxicil/Clav Acid AURELIA (MCG/ML) INTERPRETATION <=4/2 SUSCEPTIBLE: Susceptible Light growth proteus mirabilis Piperacil/Tazobactam AURELIA (MCG/ML) INTERPRETATION <=2/4 SUSCEPTIBLE: Susceptible Light growth proteus mirabilis Trimethsulfa AURELIA (MCG/ML) INTERPRETATION <=0.5/9.5 SUSCEPTIBLE: Susceptible Light growth proteus mirabilis Method AURELIA (MCG/ML) INTERPRETATION AURELIA (MCG/ML) INTERPRETATION Light growth proteus mirabilis Performing Organization Address City/State/Zipcode Phone Number MAIN LAB [address] [place] [address] * BASIC METABOLIC PANEL CELLULAR THERAPEUTICS (01/14/2018 6:15 AM STOCK GRADER) Sodium 135 (L) 137 - 147 MMOL/L [facility] MAIN LAB Potassium 3.6 3.5 - 5.1 MMOL/L [facility] MAIN LAB Chloride 97 (L) 98 - 110 MMOL/L [facility] MAIN LAB CO2 32 (H) 21 - 30 MMOL/L [facility] MAIN LAB Anion Gap 6 3 - 12 [facility] MAIN LAB Glucose 104 (H) 70 [...] Organization Address City/State/Zipcode Phone Number MAIN LAB [address] [place] [phone] * CBC CELLULAR THERAPEUTICS (01/14/2018 6:15 AM STOCK GRADER) White Blood Cells 6.4 4.5 - 11.0 K/UL [facility] MAIN LAB RBC 2.89 (L) 4.4 - 5.5 M/UL [facility] MAIN LAB Hemoglobin 10.2 (L) 13.5 - 16.5 GM/DL [facility] MAIN LAB Hematocrit 30.4 (L) 40 - 50 % [facility] MAIN LAB MCV 105.3 (H) 80 - 100 FL [facility] MAIN LAB MCH 35.3 (H) 26 - 34 PG [facility] MAIN LAB MCHC 33.5 32.0 - 36.0 G/DL [facility] MAIN LAB RDW 19.4 (H) 11 - 15 % [facility] MAIN LAB Platelet Count 303 150 - 400 K/UL [facility] MAIN LAB MPV 7.0 7 - 11 FL [facility] MAIN LAB Specimen Blood Performing Organization Address City/[facility]/Zipcode Phone Number [facility]N MAIN LAB [address] [place] [address] * BASIC METABOLIC PANEL CELLULAR THERAPEUTICS (01/12/2018 6:10 AM STOCK GRADER) Sodium 134 (L) 137 - 147 MMOL/L [facility] MAIN LAB Potassium 3.3 (L) 3.5 - 5.1 MMOL/L [facility] MAIN LAB Chloride 95 (L) 98 - 110 MMOL/L [facility] MAIN [facility] CO2 34 (H) 21 - 30 MMOL/L [facility] MAIN LAB Anion Gap 5 3 - 12 [facility] MAIN LAB Glucose 102 (H) 70 - 100 MG/DL [facility] MAIN LAB Blood Urea Nitrogen 9 7 - 25 MG/DL [facility] MAIN LAB Creatinine 0.46 0.4 - 1.24 MG/DL [facility] MAIN [facility] Calcium 9.0 8.5 - 10.6 MG/DL [facility] MAIN LAB [...] for questions. Specimen Blood Performing Organization Address City/[facility]/Zipcode Phone Number [facility] [address] [place] [address] * CBC CELLULAR THERAPEUTICS (01/12/2018 6:10 AM STOCK GRADER) White Blood Cells 8.2 4.5 - 11.0 K/UL MAIN LAB RBC 2.99 (L) 4.4 - 5.5 M/UL [facility] Hemoglobin 10.5 (L) 13.5 - 16.5 GM/DL [facility] Hematocrit 32.3 (L) 40 - 50 % MAIN LAB MCV 107.8 (H) 80 - 100 FL [facility] MCH 34.9 (H) 26 - 34 PG [facility] MCHC 32.4 32.0 - 36.0 G/DL [facility] RDW 19.7 (H) 11 - 15 % MAIN LAB Platelet Count 298 150 - 400 K/UL [facility] MPV 7.5 7 - 11 FL [facility] Specimen Blood Performing Organization Address [facility] Phone Number [facility] [address] [place] [address] * CMV QUANT PCR-BLOOD (01/10/2018 6:05 AM STOCK GRADER) IU/mL CMV Blood <50 IU/mL [facility] The test method detects and quantitates CMV DNA using the Rogers RealTime assay, and is approved by the FDA for monitoring hematopoietic stem cell transplant patients who are undergoing anti-CMV therapy.Please correlate results with the clinical status of the patient. LOG10 CMV <1.7 [facility] CMV DNA Quant PCR CMV DNA DETECTED, BUT TOO LOW CMVND-CMV DNA NOT [facility] TO QUANTIFY (A) DETECTED [IU]/mL Specimen Blood Performing Organization Address [facility]/Zipcode Phone Number [facility] [address] [place] [address] * CBC AND DIFF (01/10/2018 6:05 AM STOCK GRADER) White Blood Cells 9.8 4.5 - 11.0 K/UL MAIN LAB RBC 3.03 (L) 4.4 - 5.5 M/UL MAIN LAB Hemoglobin 10.6 (L) 13.5 - 16.5 GM/DL [facility] MAIN LAB Hematocrit 32.6 (L) 40 - 50 % [facility] MAIN LAB MCV 107.4 (H) 80 - 100 FL [facility] MAIN LAB MCH 35.1 (H) 26 - 34 PG [facility] MAIN LAB MCHC 32.7 32.0 - 36.0 G/DL [facility] MAIN LAB RDW 20.2 (H) 11 - 15 % [facility] MAIN LAB Platelet Count 318 150 - 400 K/UL [facility] MAIN [facility] MPV 7.2 7 - 11 FL [facility] MAIN LAB Neutrophils 90 (H) 41 - 77 % [facility] MAIN [facility] Lymphocytes 10 (L) 24 - 44 % [facility] MAIN [facility] Monocytes 0 (L) 4 - 12 % [facility] MAIN [facility] Eosinophils 0 0 - 5 % [facility] MAIN [facility] Basophils 0 0 - 2 % [facility] MAIN [facility] Absolute Neutrophil Count 8.70 (H) 1.8 - 7.0 K/UL [facility] MAIN [facility] Absolute Lymph Count 1.00 1.0 - 4.8 K/UL [facility] MAIN [facility] Absolute Monocyte Count 0.00 0 - 0.80 K/UL [facility] MAIN [facility] Absolute Eosinophil Count 0.00 0 - 0.45 K/UL [facility] MAIN [facility] Absolute Basophil Count 0.00 0 - 0.20 K/UL [facility] MAIN [facility] Specimen Blood Performing Organization Address City/State/Zipcode Phone Number [facility] MAIN [facility] [address] [place] [address] * COMPREHENSIVE METABOLIC PANEL (01/10/2018 6:05 AM STOCK GRADER) Sodium 134 (L) 137 - 147 MMOL/L [facility] MAIN [facility] Potassium 3.5 3.5 - 5.1 MMOL/L [facility] MAIN [facility] Chloride 96 (L) 98 - 110 MMOL/L [facility] MAIN [facility] Glucose 107 (H) 70 - 100 MG/DL [facility] MAIN [facility] Blood Urea Nitrogen 13 7 - 25 MG/DL [facility] MAIN [facility] Creatinine 0.49 0.4 - 1.24 MG/DL [facility] MAIN [facility] Calcium 8.6 8.5 - 10.6 MG/DL [facility] MAIN [facility] Total Protein 6.4 6.0 - 8.0 G/DL [facility] MAIN [facility] Total Bilirubin 0.4 0.3 - 1.2 MG/DL [facility] MAIN [facility] Albumin 2.5 (L) 3.5 - 5.0 G/DL [facility] MAIN LAB Alk Phosphatase 197 (H) 25 - 110 U/L [facility] MAIN LAB AST (SGOT) 23 7 - 40 U/L [facility] MAIN [facility] CO2 35 (H) 21 [...] Address City/State/Zipcode Phone Number MAIN LAB [address] [place] [address] * TELEMETRY STRIPS-SCAN (01/08/2018 1:28 PM STOCK GRADER) Narrative Performed At Ordered by an unspecified provider. * BASIC METABOLIC PANEL CELLULAR Mosaic (01/07/2018 5:50 AM STOCK GRADER) Sodium 135 (L) 137 - 147 MMOL/L [facility] MAIN LAB Potassium 3.7 3.5 - 5.1 MMOL/L [facility] MAIN [facility] Chloride 97 (L) 98 - 110 MMOL/L [facility] MAIN [facility] CO2 34 (H) 21 - 30 MMOL/L [facility] MAIN [facility] Anion Gap 4 3 - 12 [facility] MAIN LAB Glucose 121 (H) 70 - 100 MG/DL [facility] MAIN [facility] Blood Urea Nitrogen 13 7 - 25 MG/DL [facility] MAIN [facility] Creatinine 0.44 0.4 - 1.24 MG/DL [facility] MAIN LAB [...] Address City/State/Zipcode Phone Number MAIN LAB [address] [place] [address] * CBC CELLULAR Mosaic (01/07/2018 5:50 AM STOCK GRADER) White Blood Cells 6.8 4.5 - 11.0 K/UL MAIN LAB RBC 2.83 (L) 4.4 - 5.5 M/UL [facility] MAIN LAB Hemoglobin 9.8 (L) 13.5 - 16.5 GM/DL [facility] MAIN LAB Hematocrit 30.3 (L) 40 - 50 % MAIN LAB MCV 107.2 (H) 80 - 100 FL MAIN LAB MCH 34.8 (H) 26 - 34 PG [facility] MAIN [facility] MCHC 32.5 32.0 - 36.0 G/DL [facility] RDW 20.7 (H) 11 - 15 % MAIN LAB Platelet Count 304 150 - 400 K/UL [facility] MPV 7.6 7 - 11 FL [facility] Specimen Blood Performing Organization Address City/[facility]/Zipcode Phone Number [facility] [address] [place] [address] * BASIC METABOLIC PANEL CELLULAR THERAPEUTICS (01/05/2018 5:45 AM STOCK GRADER) Sodium 135 (L) 137 - 147 MMOL/L [facility] Potassium 3.8 3.5 - 5.1 MMOL/L [facility] Chloride 95 (L) 98 - 110 MMOL/L [facility] CO2 36 (H) 21 - 30 MMOL/L [facility] MAIN LAB Anion Gap 4 3 - 12 MAIN LAB Glucose 99 70 - 100 MG/DL [facility] Blood Urea Nitrogen 14 7 - 25 MG/DL [facility] Creatinine 0.46 0.4 - 1.24 MG/DL [facility] Calcium 8.8 8.5 - 10.6 MG/DL MAIN LAB eGFR Non >60 >60 mL/min [facility] Comment: The eGFR is not validated for use in drug dosing adjustments.Continue to use estimated creatinine clearance per dosing reference text.Please contact the Clinical Pharmacist for questions. eGFR >60 >60 mL/min [facility] Comment: The eGFR is not validated for use in drug dosing adjustments.Continue to use estimated creatinine clearance per dosing reference text.Please contact the Clinical Pharmacist for questions. Specimen Blood Performing Organization Address City/[facility]/Zipcode Phone Number [facility] [address] [place] [address] * CBC CELLULAR THERAPEUTICS (01/05/2018 5:45 AM STOCK GRADER) White Blood Cells 7.7 4.5 - 11.0 K/UL [facility] MAIN [facility] RBC 2.93 (L) 4.4 - 5.5 M/UL [facility] Hemoglobin 10.3 (L) 13.5 - 16.5 GM/DL [facility] Hematocrit 31.4 (L) 40 - 50 % [facility] MCV 107.0 (H) 80 - 100 FL [facility] MCH 35.0 (H) 26 - 34 PG [facility] MCHC 32.7 32.0 - 36.0 G/DL [facility] RDW 21.2 (H) 11 - 15 % [facility] Platelet Count 394 150 - 400 K/UL [facility] MPV 7.8 7 - 11 FL [facility] Specimen Blood Performing Organization Address City/[facility]/Zipcode Phone Number [facility] [address] [place] [address] * BASIC METABOLIC PANEL CELLULAR THERAPEUTICS (01/04/2018 5:45 AM STOCK GRADER) Sodium 135 (L) 137 - 147 MMOL/L [facility] Potassium 4.0 3.5 - 5.1 MMOL/L [facility] Chloride 94 (L) 98 - 110 MMOL/L [facility] CO2 36 (H) 21 - 30 MMOL/L [facility] Anion Gap 5 3 - 12 [facility] Glucose 88 70 - 100 MG/DL [facility] Blood Urea Nitrogen 15 7 - 25 MG/DL [facility] Creatinine 0.47 0.4 - 1.24 MG/DL [facility] Calcium 8.7 8.5 - 10.6 MG/DL [facility] eGFR Non >60 >60 mL/min [facility] Comment: The eGFR is not validated for use in drug dosing adjustments.Continue to use estimated creatinine clearance per dosing reference text.Please contact the Clinical Pharmacist for questions. eGFR >60 >60 mL/min [facility] Comment: The eGFR is not validated for use in drug dosing adjustments.Continue to use estimated creatinine clearance per dosing reference text.Please contact the Clinical Pharmacist for questions. Specimen Blood Performing Organization Address City/[facility]/Zipcode Phone Number [facility] [address] [place] [address] * CBC CELLULAR THERAPEUTICS (01/04/2018 5:45 AM STOCK GRADER) White Blood Cells 9.1 4.5 - 11.0 K/UL [facility] RBC 3.04 (L) 4.4 - 5.5 M/UL [facility] MAIN LAB Hemoglobin 10.6 (L) 13.5 - 16.5 GM/DL [facility] Hematocrit 32.1 (L) 40 - 50 % [facility] MAIN LAB MCV 105.8 (H) 80 - 100 FL MAIN LAB MCH 34.9 (H) 26 - 34 PG [facility] MAIN LAB MCHC 33.0 32.0 - 36.0 G/DL [facility] RDW 22.3 (H) 11 - 15 % MAIN LAB Platelet Count 405 (H) 150 - 400 K/UL [facility] MPV 7.9 7 - 11 FL MAIN LAB Specimen Blood Performing Organization Address [facility] Phone Number [facility] [address] [place] [address] * CMV QUANT PCR-BLOOD (01/03/2018 6:11 AM STOCK GRADER) IU/mL CMV Blood <50 IU/mL [facility] The test method detects and quantitates CMV DNA using the Rogers RealTime assay, and is approved by the FDA for monitoring hematopoietic stem cell transplant patients who are undergoing anti-CMV therapy.Please correlate results with the clinical status of the patient. LOG10 CMV <1.7 [facility] CMV DNA Quant PCR CMV DNA DETECTED, BUT TOO LOW CMVND-CMV DNA NOT [facility] TO QUANTIFY (A) DETECTED [IU]/mL Specimen Blood Performing Organization Address [facility] Phone Number [facility] [address] [place] [phone] * COMPREHENSIVE METABOLIC PANEL (01/03/2018 6:11 AM STOCK GRADER) Sodium 135 (L) 137 - 147 MMOL/L [facility] Potassium 3.9 3.5 - 5.1 MMOL/L [facility] Chloride 94 (L) 98 - 110 MMOL/L [facility] Glucose 122 (H) 70 - 100 MG/DL [facility] Blood Urea Nitrogen 15 7 - 25 MG/DL MAIN LAB Creatinine 0.44 0.4 - 1.24 MG/DL MAIN LAB Calcium 8.8 8.5 - 10.6 MG/DL [facility] Total Protein 6.5 6.0 - 8.0 G/DL MAIN LAB Total Bilirubin 0.4 0.3 - 1.2 MG/DL [facility] MAIN LAB Albumin 2.3 (L) 3.5 - 5.0 G/DL [facility] MAIN LAB Alk Phosphatase 456 (H) 25 - 110 U/L [facility] MAIN LAB AST (SGOT) 23 7 - 40 U/L [facility] MAIN [facility] CO2 37 (H) 21 - 30 MMOL/L [facility] MAIN [facility] ALT (SGPT) 18 7 - 56 U/L [facility] MAIN LAB [...] for questions. Specimen Blood Performing Organization Address City/[facility]/Zipcode Phone Number [facility] [address] [place] [address] * CBC CELLULAR THERAPEUTICS (01/03/2018 6:11 AM STOCK GRADER) White Blood Cells 9.8 4.5 - 11.0 K/UL [facility] MAIN LAB RBC 3.02 (L) 4.4 - 5.5 M/UL [facility] MAIN LAB Hemoglobin 10.4 (L) 13.5 - 16.5 GM/DL [facility] MAIN LAB Hematocrit 32.6 (L) 40 - 50 % [facility] MAIN LAB MCV 108.1 (H) 80 - 100 FL MAIN LAB MCH 34.4 (H) 26 - 34 PG [facility] MAIN LAB MCHC 31.9 (L) 32.0 - 36.0 G/DL [facility] MAIN [facility] RDW 22.5 (H) 11 - 15 % [facility] MAIN LAB Platelet Count 417 (H) 150 - 400 K/UL MAIN LAB MPV 8.0 7 - 11 FL MAIN LAB Specimen Blood Performing Organization Address City/State/Zipcode Phone Number MAIN LAB [address] [place] [address] * BASIC METABOLIC PANEL CELLULAR THERAPEUTICS (01/02/2018 6:10 AM STOCK GRADER) Sodium 135 (L) 137 - 147 MMOL/L [facility] MAIN LAB Potassium 3.5 3.5 - 5.1 MMOL/L [facility] MAIN [facility] Chloride 95 (L) 98 - 110 MMOL/L [facility] MAIN [facility] CO2 36 (H) 21 - 30 MMOL/L [facility]IN [facility] Anion Gap 4 3 - 12 [facility] MAIN LAB Glucose 138 (H) 70 - 100 MG/DL [facility]IN [facility] Blood Urea Nitrogen 14 7 - 25 MG/DL [facility]IN [facility] Creatinine 0.44 0.4 - 1.24 MG/DL [facility] MAIN LAB [...] for questions. Specimen Blood Performing Organization Address City/[facility]/Zipcode Phone Number [facility] [address] [place] [phone] * CBC CELLULAR THERAPEUTICS (01/02/2018 6:10 AM STOCK GRADER) White Blood Cells 11.9 (H) 4.5 - 11.0 K/UL MAIN LAB RBC 3.15 (L) 4.4 - 5.5 M/UL [facility] MAIN LAB Hemoglobin 11.0 (L) 13.5 - 16.5 GM/DL MAIN LAB Hematocrit 33.9 (L) 40 - 50 % [facility] MAIN LAB MCV 107.8 (H) 80 - 100 FL [facility] MAIN LAB MCH 34.9 (H) 26 - 34 PG [facility] MAIN LAB MCHC 32.4 32.0 - 36.0 G/DL MAIN LAB RDW 22.7 (H) 11 - 15 % [facility] MAIN LAB Platelet Count 413 (H) 150 - 400 K/UL [facility] MAIN LAB MPV 8.0 7 - 11 FL MAIN LAB Specimen Blood Performing Organization Address City/[facility]/Zipcode Phone Number [facility] [address] [place] [phone] * CHEST SINGLE VIEW (01/02/2018 1:15 AM STOCK GRADER) Impressions Performed At No significant change in patchy predominately alveolar opacities within both [facility] RESULTS lungs, greatest on the right, compatible with pneumonia. Small bilateral pleural effusions. Approved by David Alva M.D. on 01/02/2018 9:20 AM By my electronic signature, I attest that I have personally reviewed the images for this examination and formulated the interpretations and opinions expressed in this report Finalized by Nikko Douglas M.D. on 01/02/2018 12:11 PM. Dictated by David Alva M.D. on 01/02/2018 8:22 AM. Narrative Performed At CHEST SINGLE VIEW [facility] RESULTS Clinical history: Increased work of breathing Comparison: Chest x-ray December 31, 2017 Findings: The right PICC line remains in place. The cardiac silhouette is normal in size and shape. Pulmonary vasculature is within normal limits. Redemonstration of patchy mixed, predominantly alveolar opacities in both lungs, greatest in the right upper lung. Persistent small bilateral pleural effusions. No pneumothorax. Procedure Note Interface, Radiant Results - 01/02/2018 12:14 PM STOCK GRADER CHEST SINGLE VIEW Clinical history: Increased work of breathing Comparison: Chest x-ray December 31, 2017 Findings: The right PICC line remains in place. The cardiac silhouette is normal in size and shape. Pulmonary vasculature is within normal limits. Redemonstration of patchy mixed, predominantly alveolar opacities in both lungs, greatest in the right upper lung. Persistent small bilateral pleural effusions. No pneumothorax. IMPRESSION No significant change in patchy predominately alveolar opacities within both lungs, greatest on the right, compatible with pneumonia. Small bilateral pleural effusions. Approved by David Alva M.D. on 01/02/2018 9:20 AM By my electronic signature, I attest that I have personally reviewed the images for this examination and formulated the interpretations and opinions expressed in this report Finalized by Nikko Douglas M.D. on 01/02/2018 12:11 PM. Dictated by David Alva M.D. on 01/02/2018 8:22 AM. Performing Organization Address City/State/Zipcode Phone Number [email or web address] RAD RESULTS * POC IONIZED CALCIUM (01/02/2018 12:57 AM STOCK GRADER) Ionized Calcium-POC 1.18 1.0 - 1.3 MMOL/L [email or web address] Performing Organization Address City/State/Zipcode Phone Number [email or web address]IN [facility] [address] [place] [address] * POC SODIUM (01/02/2018 12:57 AM STOCK GRADER) Sodium-POC 137 137 - 147 MMOL/L [facility]IN [facility] Performing Organization Address City/[facility]/Zipcode Phone Number MAIN LAB [address] [place] [address] * POC POTASSIUM (01/02/2018 12:57 AM STOCK GRADER) Potassium-POC 3.6 3.5 - 5.1 MMOL/L MAIN LAB Performing Organization Address [facility] Phone Number [facility] LAB [address] [place] [address] * POC HEMATOCRIT (01/02/2018 12:57 AM STOCK GRADER) Hemoglobin POC 12.6 (L) 13.5 - 16.5 GM/DL MAIN LAB Hematocrit POC 37.0 (L) 40 - 50 % MAIN LAB Performing Organization Address [facility] Phone Number MAIN LAB [address] [place] [address] * POC BLOOD GAS ARTERIAL (01/02/2018 12:57 AM STOCK GRADER) PH-ART-POC 7.50 (H) 7.35 - 7.45 MAIN LAB [id number] 48 (H) 35 - 45 [facility] MAIN LAB PO2-ART-POC 69 (L) 80 - 100 [facility] MAIN LAB Base Ex-ART-POC 14.0 MMOL/L MAIN LAB O2 Sat-ART-POC 95.0 95 - 99 % MAIN LAB [id number] 36.8 (H) 21 - 28 MMOL/L MAIN LAB Performing Organization Address [facility] Phone Number MAIN LAB [address] [place] [address] * LACTIC ACID (BG - RAPID LACTATE) (01/02/2018 12:40 AM STOCK GRADER) Lactic Acid,BG 2.4 (H) 0.5 - 2.0 MMOL/L MAIN LAB Specimen Blood Performing Organization Address City/[facility] Phone Number MAIN LAB [address] [place] [address] * PHOSPHORUS (01/02/2018 12:40 AM STOCK GRADER) Phosphorus 3.9Comment: NOTE NEW REFERENCE 2.0 - 4.5 MG/DL MAIN LAB RANGES Specimen Blood Performing Organization Address [facility]/Zipcode Phone Number MAIN LAB [address] [place] [address] * MAGNESIUM (01/02/2018 12:40 AM STOCK GRADER) Magnesium 1.8 1.6 - 2.6 mg/dL [facility] MAIN LAB Specimen Blood Performing Organization Address [facility] Phone Number [facility] MAIN LAB [address] [place] [address] * TROPONIN-I (01/02/2018 12:40 AM STOCK GRADER) Troponin-I 0.02 0.0 - 0.05 NG/ML [facility] MAIN LAB Specimen Blood Performing Organization Address [facility] Phone Number [facility] MAIN LAB [address] [place] [address] * COMPREHENSIVE METABOLIC PANEL (01/02/2018 12:40 AM STOCK GRADER) Sodium 133 (L) 137 - 147 MMOL/L [facility] MAIN LAB Potassium 4.0 3.5 - 5.1 MMOL/L [facility] MAIN LAB Chloride 94 (L) 98 - 110 MMOL/L [facility] MAIN LAB Glucose 127 (H) 70 - 100 MG/DL [facility] MAIN LAB Blood Urea Nitrogen 14 7 - 25 MG/DL [facility] MAIN LAB Creatinine 0.43 0.4 - 1.24 MG/DL [facility] MAIN LAB Calcium 9.3 8.5 - 10.6 MG/DL [facility] MAIN LAB Total Protein 7.2 6.0 - 8.0 G/DL [facility] MAIN LAB Total Bilirubin 0.4 0.3 - 1.2 MG/DL [facility] MAIN LAB Albumin 2.7 (L) 3.5 - 5.0 G/DL [facility] MAIN LAB Alk Phosphatase 635 (H) 25 - 110 U/L [facility] MAIN LAB AST (SGOT) 31 7 - 40 U/L [facility] MAIN LAB CO2 32 (H) 21 - 30 MMOL/L [facility] MAIN LAB ALT (SGPT) 18 7 - 56 U/L [facility] MAIN LAB [...] for questions. Specimen Blood Performing Organization Address [facility] Phone Number [facility] MAIN LAB [address] [place] [address] * PTT (APTT) (01/02/2018 12:40 AM STOCK GRADER) APTT 34.7Comment: NOTE NEW 20.0 - 36.0 SEC MAIN LAB REFERENCE RANGES Specimen Blood Performing Organization Address [facility] Phone Number [facility] MAIN LAB [address] [place] [address] * PROTIME INR (PT) (01/02/2018 12:40 AM STOCK GRADER) INR 1.3 (H) 0.8 - 1.2 [facility] MAIN LAB Specimen Blood Performing Organization Address [facility] Phone Number MAIN LAB [address] [place] [address] * CBC (01/02/2018 12:40 AM STOCK GRADER) White Blood Cells 14.4 (H) 4.5 - 11.0 K/UL [facility] MAIN LAB RBC 3.51 (L) 4.4 - 5.5 M/UL [facility] MAIN LAB Hemoglobin 12.2 (L) 13.5 - 16.5 GM/DL [facility] MAIN LAB Hematocrit 37.4 (L) 40 - 50 % [facility] MAIN LAB MCV 106.7 (H) 80 - 100 FL MAIN LAB MCH 34.9 (H) 26 - 34 PG MAIN LAB MCHC 32.7 32.0 - 36.0 G/DL MAIN LAB RDW 23.1 (H) 11 - 15 % [facility] MAIN LAB Platelet Count 507 (H) 150 - 400 K/UL [facility] MAIN LAB MPV 8.1 7 - 11 FL MAIN LAB Specimen Blood Performing Organization Address [facility] Phone Number MAIN LAB [address] [place] [address] * BASIC METABOLIC PANEL CELLULAR THERAPEUTICS (01/01/2018 6:14 AM STOCK GRADER) Sodium 136 (L) 137 - 147 MMOL/L [facility] MAIN LAB Potassium 3.5 3.5 - 5.1 MMOL/L MAIN LAB Chloride 97 (L) 98 - 110 MMOL/L [facility] MAIN LAB CO2 36 (H) 21 - 30 MMOL/L [facility] MAIN LAB Anion Gap 3 3 - 12 [facility] MAIN LAB Glucose 110 (H) 70 - 100 MG/DL [facility] MAIN LAB Blood Urea Nitrogen 14 7 - 25 MG/DL [facility] MAIN LAB Creatinine 0.45 0.4 - 1.24 MG/DL [facility] MAIN LAB [...] for questions. Specimen Blood Performing Organization Address City/[facility]/Zipcode Phone Number MAIN LAB [address] [place] [address] * CBC CELLULAR THERAPEUTICS (01/01/2018 6:14 AM STOCK GRADER) White Blood Cells 10.8 4.5 - 11.0 K/UL [facility] MAIN LAB RBC 3.15 (L) 4.4 - 5.5 M/UL [facility] MAIN LAB Hemoglobin 10.9 (L) 13.5 - 16.5 GM/DL [facility] MAIN LAB Hematocrit 34.3 (L) 40 - 50 % [facility] MAIN LAB MCV 108.8 (H) 80 - 100 FL [facility] MAIN LAB MCH 34.8 (H) 26 - 34 PG [facility] MAIN LAB MCHC 32.0 32.0 - 36.0 G/DL [facility] MAIN LAB RDW 22.8 (H) 11 - 15 % [facility] MAIN LAB Platelet Count 424 (H) 150 - 400 K/UL [facility] MAIN LAB MPV 8.3 7 - 11 FL [facility] MAIN LAB Specimen Blood Performing Organization Address City/[facility]/Zipcode Phone Number [facility] MAIN LAB [address] [place] [address] in this encounter Visit Diagnoses Diagnosis Debility - Primary Debility, unspecified Congestive heart failure, unspecified HF chronicity, unspecified heart failure type (HCC) 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 Long-term (current) use of anticoagulants S/P ablation of atrial fibrillation Other postprocedural status CAD (coronary artery disease) Coronary atherosclerosis of unspecified type of vessel, [place] or graft Paroxysmal atrial fibrillation (HCC) Atrial fibrillation COPD (chronic obstructive pulmonary disease) (HCC) Chronic airway obstruction, not elsewhere classified HTN (hypertension) Unspecified essential hypertension HLD (hyperlipidemia) Other and unspecified hyperlipidemia Alcohol abuse Alcohol abuse, unspecified Tobacco abuse Tobacco use disorder Pneumonia Pneumonia, organism unspecified Respiratory failure, bygix-[id number] (HCC) Acute and chronic respiratory failure Cytomegalovirus (CMV) viremia (HCC) Cytomegaloviral disease Impaired mobility and activities of daily living Mechanical problems with limbs in this encounter Administered Medications Action Date Dose Rate Site Medication Order MAR Action 01/21/2018 4:21 PM STOCK GRADER 650 mg acetaminophen (TYLENOL) tablet 650 mg Given 650 mg, Oral, EVERY 4 HOURS PRN, Starting Wed12/31/17 at 1406, Until Wed01/21/18 at 1837, Pain non-opioid: may be used alone or in combination with opioid analgesia, Temp > 38.5 C, TOTAL ACETAMINOPHEN DOSE NOT TO EXCEED 4GM DAILY, 650 mg Given 01/21/2018 10:15 AM STOCK GRADER 650 mg Given 01/21/2018 5:45 AM STOCK GRADER 01/21/2018 9:12 AM STOCK GRADER 2 puffs albuterol (PROAIR HFA, VENTOLIN HFA, or Given PROVENTIL HFA) inhaler 2 puff 2 puff, Inhalation, RT EVERY 4 HOURS PRN, Starting Wed01/12/18 at 0927, Until Wed01/21/18 at 1837, RT PROTOCOL, When administered by RT, will be per RT policy., 2 puffs Given 01/18/2018 10:06 AM STOCK GRADER 2 puffs Given 01/14/2018 9:32 AM STOCK GRADER 01/03/2018 9:20 PM STOCK GRADER 2.5 mg albuterol 0.5% (PROVENTIL; VENTOLIN) Given nebulizer solution 2.5 mg 2.5 mg, Inhalation, RT EVERY 4 HOURS AND PRN, First dose on Wed01/02/18 at 0400, Until Discontinued, ADMINISTERED BY RT, 2.5 mg Given 01/03/2018 5:10 PM STOCK GRADER 2.5 mg Given 01/03/2018 2:03 PM STOCK GRADER 01/11/2018 8:40 PM STOCK GRADER 2.5 mg albuterol 0.5% (PROVENTIL; VENTOLIN) Given nebulizer solution 2.5 mg 2.5 mg, Inhalation, RT FOUR TIMES DAILY AND PRN, First dose on Wed01/03/18 at 2145, Until Discontinued, ADMINISTERED BY RT, 2.5 mg Given 01/11/2018 4:30 PM STOCK GRADER 2.5 mg Given 01/11/2018 12:05 PM STOCK GRADER 01/10/2018 4:49 AM STOCK GRADER 30 mL aluminum/magnesium hydroxide (MAALOX) Given oral suspension 30 mL 30 mL, Oral, EVERY 4 HOURS PRN, Starting Wed12/31/17 at 1601, Until Wed01/21/18 at 1837, Indigestion/Heartburn, Rehab Admission 01/21/2018 8:53 AM STOCK GRADER 500 mg ascorbic acid (VITAMIN C) tablet 500 mg Given 500 mg, Oral, DAILY, First dose on Wed01/01/18 at 0900, Until Discontinued 500 mg Given 01/20/2018 9:14 AM STOCK GRADER 500 mg Given 01/19/2018 9:16 AM STOCK GRADER 01/10/2018 10:05 AM STOCK GRADER 10 mg bisacodyl (DULCOLAX) rectal suppository Given 10 mg 10 mg, Rectal, DAILY PRN, Starting Wed12/31/17 at 1601, Until Wed01/21/18 at 1837, Constipation ND, Do not order suppository for neutropenic and/or thrombocytopenic patients., Rehab Admission 10 mg Given 01/08/2018 10:44 AM STOCK GRADER 01/21/2018 9:12 AM STOCK GRADER 2 puffs budesonide/formoterol (SYMBICORT HFA) Given 160/4.5 mcg inhalation 2 puff 2 puff, Inhalation, RT TWICE DAILY, First dose on Wed01/03/18 at 1800, Until Discontinued, When administered by RT, will be per RT policy., 2 puffs Given 01/20/2018 9:25 PM STOCK GRADER 2 puffs Given 01/20/2018 10:24 AM STOCK GRADER 01/19/2018 6:13 AM STOCK GRADER 1 g 200 mL/hr cefepime (MAXIPIME) 1 g in dextrose 5% Given - New (D5W) 100 mL IVPB (MB+) Bag 1 g, Intravenous, 100 mL, Administer over 30 Minutes, EVERY 8 HOURS, First dose on Wed01/16/18 at 1500, Until Discontinued 1 g 200 mL/hr Given - New Bag 01/18/2018 10:41 PM STOCK GRADER 1 g 200 mL/hr Given - New Bag 01/18/2018 3:08 PM STOCK GRADER 01/21/2018 11:53 AM STOCK GRADER 1 g 200 mL/hr cefepime (MAXIPIME) 1 g in dextrose 5% Given - New (D5W) 100 mL IVPB (MB+) Bag 1 g, Intravenous, 100 mL, Administer over 30 Minutes, EVERY 8 HOURS, First dose on Wed01/21/18 at 1145, Until Discontinued 01/20/2018 3:18 PM STOCK GRADER 2 g cefTRIAXone (ROCEPHIN) IVP 2 g Given 2 g, Intravenous, EVERY 24 HOURS, First dose on Wed01/19/18 at 1515, Until Discontinued, INSTR: IV PUSH -- RECONSTITUTE EACH 1 GM WITH 10 MLS 0.9% NACL , 2 g Given 01/19/2018 3:22 PM STOCK GRADER 01/21/2018 8:53 AM STOCK GRADER 400 Units cholecalciferol (VITAMIN D-3) tablet 400 Given Units 400 Units, Oral, DAILY, First dose on Wed01/01/18 at 0900, Until Discontinued 400 Units Given 01/20/2018 9:14 AM STOCK GRADER 400 Units Given 01/19/2018 9:15 AM STOCK GRADER 01/21/2018 8:53 AM STOCK GRADER 250 mcg digoxin (LANOXIN) tablet 250 mcg Given 250 mcg, Oral, DAILY, First dose on Wed01/01/18 at 0900, Until Discontinued, Hold for heart rate < 60 bpm NOTE: PHARMACOKINETIC MONITORING, 250 mcg Given 01/20/2018 9:14 AM STOCK GRADER 250 mcg Given 01/19/2018 9:16 AM STOCK GRADER 01/12/2018 8:35 AM STOCK GRADER 100 mg docusate (COLACE) capsule 100 mg Given 100 mg, Oral, TWICE DAILY, First dose on Wed12/31/17 at 2100, Until Discontinued, Hold for loose stools, Rehab Admission 100 mg Given 01/11/2018 8:21 PM STOCK GRADER 100 mg Given 01/11/2018 8:02 AM STOCK GRADER 01/19/2018 9:15 AM STOCK GRADER 200 mg docusate (COLACE) capsule 200 mg Given 200 mg, Oral, TWICE DAILY, First dose on Wed01/12/18 at 2100, Until Discontinued, Hold for loose stools, Rehab Admission 200 mg Given 01/18/2018 10:29 PM STOCK GRADER 200 mg Given 01/18/2018 8:05 AM STOCK GRADER 01/18/2018 8:07 AM STOCK GRADER 2 sprays fluticasone (FLONASE) nasal spray 2 Given spray 2 spray, Each Nostril, DAILY, First dose on Wed01/01/18 at 0900, Until Discontinued 2 sprays Given 01/12/2018 8:43 AM STOCK GRADER 2 sprays Given 01/11/2018 8:06 AM STOCK GRADER 01/21/2018 4:21 PM STOCK GRADER 60 mg furosemide (LASIX) tablet 60 mg Given 60 mg, Oral, TWICE DAILY, First dose on Wed12/31/17 at 1700, Until Discontinued 60 mg Given 01/21/2018 8:52 AM STOCK GRADER 60 mg Given 01/20/2018 4:26 PM STOCK GRADER 01/02/2018 8:31 AM STOCK GRADER 100 mg guaiFENesin (ROBITUSSIN) oral solution Given 100 mg 100 mg, Oral, EVERY 4 HOURS, First dose on Wed12/31/17 at 1600, Until Discontinued 100 mg Given 01/02/2018 5:10 AM STOCK GRADER 100 mg Given 01/02/2018 1:11 AM STOCK GRADER 01/21/2018 8:53 AM STOCK GRADER 600 mg guaiFENesin LA (MUCINEX) tablet 600 mg Given 600 mg, Oral, TWICE DAILY, First dose on Wed01/02/18 at 1100, Until Discontinued 600 mg Given 01/20/2018 8:36 PM STOCK GRADER 600 mg Given 01/20/2018 9:14 AM STOCK GRADER 01/21/2018 4:21 PM STOCK GRADER 1 tablet HYDROcodone/acetaminophen (NORCO) 5/325 Given mg tablet 1 tablet 1 tablet, Oral, EVERY 6 HOURS PRN, Starting Brenda 01/20/18 at 0907, Until Wed01/21/18 at 1837, Pain PO, TOTAL ACETAMINOPHEN DOSE NOT TO EXCEED 4GM DAILY NOTE: This is a HIGH ALERT Medication., 1 tablet Given 01/21/2018 10:15 AM STOCK GRADER 1 tablet Given 01/21/2018 5:45 AM STOCK GRADER 01/03/2018 2:04 PM STOCK GRADER 0.5 mg ipratropium bromide (ATROVENT) 0.02 % Given nebulizer solution 0.5 mg 0.5 mg, Inhalation, RT EVERY 4 HOURS AND PRN, First dose on Wed01/02/18 at 0400, Until Discontinued, When administered by RT, will be per RT policy., 0.5 mg Given 01/03/2018 9:47 AM STOCK GRADER 0.5 mg Given 01/03/2018 4:06 AM STOCK GRADER 01/20/2018 8:36 PM STOCK GRADER 372 mg isavuconazonium sulfate (CRESEMBA) Given capsule 372 mg 372 mg, Oral, DAILY, First dose on Wed12/31/17 at 2100, Until Discontinued 372 mg Given 01/19/2018 8:54 PM STOCK GRADER 372 mg Given 01/19/2018 12:12 AM STOCK GRADER 01/05/2018 8:44 AM STOCK GRADER 1 patch Chest, Left lidocaine (LIDODERM) 5 % topical patch Patch/Topica 1-2 patch l Applied 1-2 patch, Topical, Administer over 12 Hours, EVERY 24 HOURS, First dose on 01/01/18 at 0815, Until Discontinued, NURSING PLEASE NOTE: Apply patch ONCE DAILY to chest and REMOVE after designated duration. Apply only to intact skin. Patch may be cut to fit affected area., 1 patch Chest, Left Patch/Topical Applied 01/04/2018 9:29 AM STOCK GRADER 1 patch Chest, Left Patch/Topical Applied 01/03/2018 8:34 AM STOCK GRADER 01/09/2018 9:15 AM STOCK GRADER 2 patches Chest, Left lidocaine (LIDODERM) 5 % topical patch Patch/Topica 1-2 patch l Applied 1-2 patch, Topical, Administer over 12 Hours, EVERY 24 HOURS, First dose on 01/08/18 at 0945, Until Discontinued, NURSING PLEASE NOTE: Apply patch ONCE DAILY to chest and REMOVE after designated duration. Apply only to intact skin. Patch may be cut to fit affected area., 2 patches Chest, Left Patch/Topical Applied 01/09/2018 8:08 AM STOCK GRADER 2 patches Chest, Left Patch/Topical Applied 01/08/2018 11:49 AM STOCK GRADER 01/21/2018 8:52 AM STOCK GRADER 1 patch Chest, Right lidocaine (LIDODERM) 5 % topical patch Patch/Topica 1-2 patch l Applied 1-2 patch, Topical, Administer over 12 Hours, DAILY, First dose on 01/10/18 at 0900, Until Discontinued, NURSING PLEASE NOTE: Apply patch ONCE DAILY to chest and REMOVE after designated duration. Apply only to intact skin. Patch may be cut to fit affected area., 1 patch Chest, Left Patch/Topical Applied 01/20/2018 9:18 AM STOCK GRADER 2 patches Chest, Left Patch/Topical Applied 01/19/2018 9:21 AM STOCK GRADER 01/20/2018 11:10 AM STOCK GRADER 400 mg magnesium oxide (MAG-OX) tablet 400 mg Given 400 mg, Oral, ONCE, 1 dose, [facility] 01/20/18 at 1000, Delivers 241.3mg elemental magnesium per tab, 01/21/2018 11:52 AM STOCK GRADER 400 mg magnesium oxide (MAG-OX) tablet 400 mg Given 400 mg, Oral, TWICE DAILY, First dose on Wed01/21/18 at 1030, Until Discontinued, Delivers 241.3mg elemental magnesium per tab, 01/09/2018 9:01 PM STOCK GRADER 5 mg melatonin tablet 5 mg Given 5 mg, Oral, AT BEDTIME PRN, Starting Wed12/31/17 at 1407, Until Wed01/21/18 at 1837, Insomnia 5 mg Given 01/02/2018 9:37 PM STOCK GRADER 5 mg Given 01/01/2018 8:18 PM STOCK GRADER 01/20/2018 8:36 PM STOCK GRADER 12.5 mg metoprolol tartrate (LOPRESSOR) tablet Given 12.5 mg 12.5 mg, Oral, TWICE DAILY, First dose on Wed12/31/17 at 2100, Until Discontinued, Hold for heart rate < 60 bpm or systolic BP < 90, 12.5 mg Given 01/20/2018 9:16 AM STOCK GRADER 12.5 mg Given 01/19/2018 8:51 PM STOCK GRADER 01/21/2018 4:39 PM STOCK GRADER 150 mg 110 mL/hr micafungin (MYCAMINE) 150 mg in sodium Given - New chloride 0.9% (NS) 110 mL IVPB Bag 150 mg, Intravenous, 110 mL, Administer over 60 Minutes, at 110 mL/hr, EVERY 24 HOURS, First dose on Wed12/31/17 at 1615, Until Discontinued, PROTECT FROM LIGHT, 150 mg 110 mL/hr Given - New Bag 01/20/2018 4:23 PM STOCK GRADER 150 mg 110 mL/hr Given - New Bag 01/19/2018 5:28 PM STOCK GRADER 01/16/2018 9:26 AM STOCK GRADER 10 mL milk of magnesia (CONC) oral suspension Given 10 mL 10 mL, Oral, EVERY 4 HOURS PRN, Starting Wed12/31/17 at 1601, Until Wed01/21/18 at 1837, Constipation PO, 10 mL CONC=30 mL MOM, Rehab Admission 10 mL Given 01/10/2018 8:08 AM STOCK GRADER 10 mL Given 01/03/2018 12:37 PM STOCK GRADER 01/10/2018 11:40 AM STOCK GRADER 200 mL milk/molasses(#) 1:1 rectal enema 200 mL Given 200 mL (1 each), Rectal, ONCE, 1 dose, 01/10/18 at 1130 01/18/2018 8:59 AM STOCK GRADER 4 mg ondansetron (ZOFRAN) tablet 4 mg Given 4 mg, Oral, EVERY 6 HOURS PRN, Starting Wed12/31/17 at 1602, Until Wed01/18/18 at 0913, Nausea/Vomiting PO 4 mg Given 01/17/2018 1:56 PM STOCK GRADER 4 mg Given 01/16/2018 8:50 PM STOCK GRADER 01/21/2018 5:48 PM STOCK GRADER 4 mg ondansetron (ZOFRAN) tablet 4 mg Given 4 mg, Oral, THREE TIMES DAILY WITH MEALS, First dose on Wed01/18/18 at 1200, Until Discontinued 4 mg Given 01/21/2018 11:52 AM STOCK GRADER 4 mg Given 01/21/2018 8:53 AM STOCK GRADER 01/18/2018 6:54 AM STOCK GRADER 10 mg oxyCODONE (ROXICODONE, OXY-IR) tablet 10 Given mg 10 mg, Oral, EVERY 4 HOURS PRN, Starting Wed12/31/17 at 2045, Until Wed01/18/18 at 0912, Pain PO 10 mg Given 01/17/2018 11:08 PM STOCK GRADER 10 mg Given 01/17/2018 5:34 PM STOCK GRADER 12/31/2017 8:15 PM STOCK GRADER 5 mg oxyCODONE (ROXICODONE, OXY-IR) tablet 5 Given mg 5 mg, Oral, EVERY 3 HOURS PRN, Starting Wed12/31/17 at 1407, Until Wed12/31/17 at 2033, Pain PO 5 mg Given 12/31/2017 4:30 PM STOCK GRADER 01/20/2018 5:06 AM STOCK GRADER 5 mg oxyCODONE (ROXICODONE, OXY-IR) tablet 5 Given mg 5 mg, Oral, EVERY 4 HOURS PRN, Starting Wed01/18/18 at 0912, Until Wed01/20/18 at 0907, Pain PO 5 mg Given 01/19/2018 6:12 AM STOCK GRADER 01/19/2018 10:29 AM STOCK GRADER 1 capsule pancrelipase 20,000 Units/ sodium Given bicarbonate 650 mg(#) ([facility] CLOG DESTROYER) for occluded feeding tube cap 1 capsule 1 capsule, 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 Open one [facility] CLOG DESTROYER CAPSULE (pancrelipase 20,000 units/ sodium bicarbonate 650 mg) and pour contents into mortar cup. 2. Dissolve in 5 - 10 ml sterile water. This will take ~ 1-2 minutes, with stirring required. Some sediment will be present (likely from capsule ingredients). 3. Once dissolved, let solution sit for 1-2 minutes, allowing sediment to fall to bottom of mortar cup. 4. Draw enzyme/bicarbonate solution into oral syringe (avoid sediment as best possible). 5. Instill enzyme solution under light pressure, and use a light "back and forth" motion with plunger to help dislodge the clog. 6. Clamp the tube for 5-15 minutes, and then try to aspirate or flush with warm sterile water. May repeat x 1. Notify physician if tube remains occluded following administration., 1 capsule Given 01/19/2018 10:11 AM STOCK GRADER 01/21/2018 8:52 AM STOCK GRADER [address] (PROTONIX) tablet 40 mg Given 40 mg, Oral, DAILY, First dose on Wed01/04/18 at 2100, Until Discontinued, Do not crush or chew tablet., 40 mg Given 01/20/2018 9:14 AM STOCK GRADER 40 mg Given 01/19/2018 9:16 AM STOCK GRADER 01/19/2018 9:15 AM STOCK GRADER 17 g polyethylene glycol 3350 (MIRALAX) Given packet 17 g 17 g (1 packet), Oral, TWICE DAILY, First dose on Wed01/11/18 at 0900, Until Discontinued, 8.5 GRAMS=0.5 PACKET 17 GRAMS=1 PACKET 34 GRAMS=2 PACKETS, 17 g Given 01/18/2018 10:26 PM STOCK GRADER 17 g Given 01/18/2018 8:06 AM STOCK GRADER 01/19/2018 2:36 PM STOCK GRADER 10 mEq 50 mL/hr potassium chloride in water IVPB 10 mEq Given - New 10 mEq, Intravenous, 50 mL, Administer Bag over 60 Minutes, EVERY 1 HOUR FOR 4 DOSES, 4 doses, First dose on Wed01/19/18 at 1100, Last dose on Wed01/19/18 at 1400, NOTE: This is a HIGH ALERT Medication., 10 mEq 50 mL/hr Given - New Bag 01/19/2018 1:25 PM STOCK GRADER 10 mEq 50 mL/hr Given - New Bag 01/19/2018 12:30 PM STOCK GRADER 01/20/2018 1:32 PM STOCK GRADER 10 mEq 50 mL/hr potassium chloride in water IVPB 10 mEq Given - New 10 mEq, Intravenous, 50 mL, Administer Bag over 60 Minutes, EVERY 1 HOUR FOR 4 DOSES, 4 doses, First dose on Brenda 01/20/18 at 1000, Last dose on Brenda 01/20/18 at 1300, NOTE: This is a HIGH ALERT Medication., 10 mEq 50 mL/hr Given - New Bag 01/20/2018 12:16 PM STOCK GRADER 10 mEq 50 mL/hr Given - New Bag 01/20/2018 11:13 AM STOCK GRADER 01/21/2018 4:17 PM STOCK GRADER 10 mEq 50 mL/hr potassium chloride in water IVPB 10 mEq Given - New 10 mEq, Intravenous, 50 mL, Administer Bag over 60 Minutes, EVERY 1 HOUR FOR 4 DOSES, 4 doses, First dose on Wed01/21/18 at 1000, Last dose on Wed01/21/18 at 1300, NOTE: This is a HIGH ALERT Medication., 10 mEq 50 mL/hr Given - New Bag 01/21/2018 1:17 PM STOCK GRADER 10 mEq 50 mL/hr Given - New Bag 01/21/2018 11:54 AM STOCK GRADER 01/16/2018 2:55 PM STOCK GRADER 40 mEq potassium chloride oral solution 40 mEq Given 40 mEq, Oral, ONCE, 1 dose, Arthur 01/16/18 at 1345 01/16/2018 3:02 PM STOCK GRADER 40 mEq potassium chloride SR (K-DUR) tablet 40 Given mEq 40 mEq, Oral, ONCE, 1 dose, Arthur 01/16/18 at 1315, Do NOT break or crush tablet , 01/12/2018 1:41 PM STOCK GRADER 60 mEq potassium chloride SR (K-DUR) tablet 60 Given mEq 60 mEq, Oral, ONCE, 1 dose, 01/12/18 at 1330, - Tablet may be dispersed in water. Place tab in 30 mL of water for 40-60 seconds. - Gently swirl until fully dispersed. If particles remain after admin, add small amount of water and admin remaining content. - DO NOT CRUSH. Tablet may be split in half. , 01/17/2018 11:23 AM STOCK GRADER 60 mEq potassium chloride SR (K-DUR) tablet 60 Given mEq 60 mEq, Oral, ONCE, 1 dose, 01/17/18 at 1100, - Tablet may be dispersed in water. Place tab in 30 mL of water for 40-60 seconds. - Gently swirl until fully dispersed. If particles remain after admin, add small amount of water and admin remaining content. - DO NOT CRUSH. Tablet may be split in half. , 01/19/2018 9:15 AM STOCK GRADER 60 mEq potassium chloride SR (K-DUR) tablet 60 Given mEq 60 mEq, Oral, ONCE, 1 dose, 01/19/18 at 0645, - Tablet may be dispersed in water. Place tab in 30 mL of water for 40-60 seconds. - Gently swirl until fully dispersed. If particles remain after admin, add small amount of water and admin remaining content. - DO NOT CRUSH. Tablet may be split in half. , 01/20/2018 3:39 PM STOCK GRADER 60 mEq potassium chloride SR (K-DUR) tablet 60 Given mEq 60 mEq, Oral, ONCE, 1 dose, Brenda 01/20/18 at 1000, - Tablet may be dispersed in water. Place tab in 30 mL of water for 40-60 seconds. - Gently swirl until fully dispersed. If particles remain after admin, add small amount of water and admin remaining content. - DO NOT CRUSH. Tablet may be split in half. , 60 mEq Given 01/20/2018 11:10 AM STOCK GRADER 01/21/2018 10:15 AM STOCK GRADER 60 mEq potassium chloride SR (K-DUR) tablet 60 Given mEq 60 mEq, Oral, ONCE, 1 dose, 01/21/18 at 0930, - Tablet may be dispersed in water. Place tab in 30 mL of water for 40-60 seconds. - Gently swirl until fully dispersed. If particles remain after admin, add small amount of water and admin remaining content. - DO NOT CRUSH. Tablet may be split in half. , 01/21/2018 8:53 AM STOCK GRADER 20 mg rivaroxaban (XARELTO) tablet 20 mg Given 20 mg, Oral, DAILY WITH BREAKFAST, First dose on 01/01/18 at 0800, Until Discontinued, Administer with food. NOTE: This is a HIGH ALERT Medication., 20 mg Given 01/20/2018 9:13 AM STOCK GRADER 20 mg Given 01/19/2018 9:16 AM STOCK GRADER 01/07/2018 9:10 PM STOCK GRADER 2 tablets senna (SENOKOT) tablet 2 tablet Given 2 tablet, Oral, AT BEDTIME DAILY, First dose on Wed12/31/17 at 2100, Until Discontinued, Hold for loose stools, Rehab Admission 2 tablets Given 01/06/2018 9:06 PM STOCK GRADER 2 tablets Given 01/05/2018 8:39 PM STOCK GRADER 01/21/2018 8:52 AM STOCK GRADER 2 tablets senna (SENOKOT) tablet 2 tablet Given 2 tablet, Oral, TWICE DAILY, First dose on 01/08/18 at 2100, Until Discontinued, Hold for loose stools, Rehab Admission 2 tablets Given 01/19/2018 9:16 AM STOCK GRADER 2 tablets Given 01/18/2018 10:27 PM STOCK GRADER 01/20/2018 3:18 PM STOCK GRADER 20 mL SODIUM CHLORIDE 0.9 % IJ SOLN (Cabinet Given Override) NOW, 1 dose, [facility] 01/20/18 at 1515, Created by cabinet override, Created by cabinet override, 01/13/2018 5:33 PM STOCK GRADER 100 mL SODIUM CHLORIDE 0.9 % IV SOLP (Cabinet Given - New Override) Bag NOW, 1 dose, Brenda 01/13/18 at 1745, Created by cabinet override, Created by cabinet override, 01/15/2018 6:34 PM STOCK GRADER 100 mL SODIUM CHLORIDE 0.9 % IV SOLP (Cabinet Given - New Override) Bag NOW, 1 dose, [facility] 01/15/18 at 1645, Created by cabinet override, Created by cabinet override, 01/16/2018 4:13 PM STOCK GRADER 250 mL Arm, Right SODIUM CHLORIDE 0.9 % IV SOLP (Cabinet Given - New Override) Bag NOW, 1 dose, Arthur 01/16/18 at 1500, Created by cabinet override, Created by cabinet override, 01/20/2018 12:17 PM STOCK GRADER 100 mL SODIUM CHLORIDE 0.9 % IV SOLP (Cabinet Given - New Override) Bag NOW, 1 dose, [facility] 01/20/18 at 1215, Created by cabinet override, Created by cabinet override, 01/20/2018 4:26 PM STOCK GRADER 100 mL SODIUM CHLORIDE 0.9 % IV SOLP (Cabinet Given - New Override) Bag NOW, 1 dose, [facility] 01/20/18 at 1515, Created by cabinet override, Created by cabinet override, 01/21/2018 10:17 AM STOCK GRADER 100 mL SODIUM CHLORIDE 0.9 % IV SOLP (Cabinet Given - New Override) Bag NOW, 1 dose, Wed01/21/18 at 1000, Created by cabinet override, Created by cabinet override, 01/21/2018 10:20 AM STOCK GRADER 30 mL sodium chloride PF 0.9% flush 30 mL Given 30 mL, Intravenous, FLUSH THREE TIMES DAILY, First dose on 01/01/18 at 0200, Until Discontinued, Flush central, Midline or PICC line, with 5-10 mL every 8 hours using the push-pause (turbulent) method. Flush all lumens that do not have a continuous infusion. After obtaining blood specimen, flush catheter with 20 mL., 30 mL Given 01/20/2018 4:28 PM STOCK GRADER 30 mL Given 01/20/2018 9:24 AM STOCK GRADER 01/21/2018 8:53 AM STOCK GRADER 100 mg thiamine mononitrate tablet 100 mg Given 100 mg, Oral, DAILY, First dose on 01/01/18 at 0900, Until Discontinued 100 mg Given 01/20/2018 9:14 AM STOCK GRADER 100 mg Given 01/19/2018 9:16 AM STOCK GRADER 01/21/2018 9:13 AM STOCK GRADER 1 capsule tiotropium (SPIRIVA) capsule for inhaler Given 1 capsule 1 capsule, Inhalation, RT DAILY, First dose on 01/03/18 at 1645, Until Discontinued, When administered by RT, will be per RT policy. NOTES: Administer immediately after opening blister foil pouch. Each capsule is meant to deliver 2 inhalations (1 cap=2 inhalations)., 1 capsule Given 01/20/2018 10:24 AM STOCK GRADER 1 capsule Given 01/19/2018 9:12 AM STOCK GRADER 01/21/2018 4:21 PM STOCK GRADER 900 mg valGANciclovir (VALCYTE) tablet 900 mg Given 900 mg, Oral, TWICE DAILY WITH MEALS, First dose on 01/01/18 at 0800, Until Discontinued, NURSING: Please educate patient and document: Give with food. Do NOT break or crush tablets (order suspension to give via tube) NOTE: If or wanting to become , do not touch broken tablets without gloves due to risk of defects., 900 mg Given 01/21/2018 8:53 AM STOCK GRADER 900 mg Given 01/20/2018 4:26 PM STOCK GRADER 01/19/2018 9:20 AM STOCK GRADER vitamin A & D topical ointment Given Topical, DAILY, First dose on 01/01/18 at 0900, Until Discontinued, Apply A&D ointment to wounds and cover with a Biatain foam. Dressing changes daily and PRN soiling per floor RN., 56 g Given 01/18/2018 8:07 AM STOCK GRADER Given 01/16/2018 9:31 AM STOCK GRADER 01/21/2018 8:53 AM STOCK GRADER 1 tablet vitamins, multi w/minerals tablet 1 Given tablet 1 tablet, Oral, DAILY, First dose on 01/01/18 at 0900, Until Discontinued 1 tablet Given 01/20/2018 9:14 AM STOCK GRADER 1 tablet Given 01/19/2018 9:16 AM STOCK GRADER in this encounter
--- OUTSIDE RECORDS SUMMARY | 2018-03-30 14:14 | XMS REPORT | Encounter Summary ---
Author Author [facility] Organization [facility] Address Unknown Phone Unavailable Care Team Providers Care Veneer Sample Maker Name Role Phone SebMai Unavailable Unavailable Samir Lopez MD Unavailable Unavailable Samara Lugo RN Unavailable Unavailable Flavio Jackson MD PCP Encounter Details Care Team Description Date Type Department Deandre Dover MD [address] [facility] 1st Flr [id number] [place], [place] [id number] 01/05/2018 Hospital [facility] Radiology [facility] 2nd fl [address] [place] [address] Social History Date Tobacco Use Types Packs/Day [...] Status Date of Assessment Functional Status Response 12/31/2017 Does the patient have a hearing impairment: No as of this encounter Medications at Time of Discharge Start Date End Date Medication Sig Dispensed Refills 12/31/2017 02/02/2018 acetaminophen (TYLENOL) 20.3 mL by 240 mL 0 160 mg/5 mL oral solution Per NG tube route every 4 hours as needed. Max of 4,000 mg of acetaminophen in 24 hours. 01/21/2018 02/21/2018 albuterol (PROAIR HFA, Inhale two 0 VENTOLIN HFA, OR puffs by PROVENTIL HFA) 90 mouth into mcg/actuation inhaler the lungs four times daily as needed for Wheezing or Shortness of Breath. Shake well before use. 12/31/2017 01/21/2018 albuterol 0.5% Inhale 0.5 mL 60 vial 0 (PROVENTIL; VENTOLIN) 2.5 solution by mg/0.5 mL nebulizer nebulizer as solution directed every 4 hours as needed for Shortness of Breath or Wheezing. 01/01/2018 02/21/2018 ascorbic acid (VITAMIN C) one [...] solution hours as needed for Dry Eyes. 01/01/2018 02/02/2018 digoxin (LANOXIN) 250 mcg one tablet by 90 tablet 3 tablet Per NG tube route daily. 01/22/2018 02/21/2018 fluticasone (FLONASE) 50 Apply two 48 g 3 mcg/actuation nasal spray sprays to each nostril as directed daily. Shake bottle gently before using. 01/21/2018 fluticasone (FLONASE) 50 Apply 1 [place] 0 mcg/actuation nasal spray to each nostril as directed twice daily. 12/31/2017 02/21/2018 furosemide (LASIX) 20 mg Take three 90 tablet 3 tablet tablets by mouth twice daily. 12/31/2017 02/02/2018 guaiFENesin (ROBITUSSIN) 10 mL by Per 0 100 mg/5 mL oral solution NG tube route every 4 hours. 01/21/2018 02/02/2018 HYDROcodone/acetaminophen Take one 0 (NORCO) 5/325 mg tablet tablet by mouth every 6 hours as needed 12/31/2017 01/21/2018 hydrOXYzine (ATARAX) 25 one tablet by 30 tablet 0 mg tablet Per NG tube route three times daily as needed. 12/31/2017 02/21/2018 isavuconazonium sulfate Take two 0 [...] mg tablet tablet by mouth twice daily. 12/31/2017 01/21/2018 metoprolol(#) (LOPRESSOR) 1.25 mL by 0 10 mg/mL Per NG tube route twice daily. 01/22/2018 02/02/2018 micafungin (MYCAMINE) 100 Administer 0 mg/5 mL 100 mg, 150 mg micafungin (MYCAMINE) 50 [address] vein mg/5 mL 50 mg in sodium every 24 chloride 0.9% (NS) 0.9 % hours. 110 mL IVPB 12/31/2017 01/21/2018 oxyCODONE (ROXICODONE) 1 5-15 mL by 0 mg/mL oral solution Per NG tube route every 3 hours as needed 12/31/2017 01/21/2018 pancrelipase 20,000 Take one 0 Units/ sodium bicarbonate capsule via 650 mg(#) (KU CLOG feeding tube DESTROYER) 20,000 Unit/ PRN (Optical Engineer 650 mg cap from Rx) (Occluded Feeding Tube). 01/21/2018 02/21/[address] Take one 90 tablet 3 (PROTONIX) 40 mg tablet tablet by mouth daily. 12/31/2017 02/21/2018 phenol (CLORASEPTIC; Take two 0 PHENASEPTIC) 1.4 % spra sprays by mouth or throat as directed as Needed. 02/02/2018 rivaroxaban (XARELTO) 20 Take 20 mg by 0 mg tab tablet mouth daily with dinner. 01/01/2018 02/21/2018 thiamine mononitrate 100 one tablet by 0 mg tablet Per NG tube route daily. 02/02/2018 tiotropium (SPIRIVA) 18 Inhale 18 mcg 0 mcg capsule for inhaler by mouth daily. 12/31/2017 02/02/2018 valGANciclovir (VALCYTE) Take two [...]
--- OUTSIDE RECORDS SUMMARY | 2018-03-30 14:14 | XMS REPORT | Encounter Summary ---
Author Author [facility] Organization [facility] Address Unknown Phone Unavailable Care Team Providers Care Engineering Group Leader Name Role Phone SebMai Unavailable Unavailable Samir Lopez MD Unavailable Unavailable Samara Lugo RN Unavailable Unavailable Flavio Jackson MD PCP Reason for Visit * Auth/Cert Referred By Contact Referred To Contact Status Reason Specialty Diagnoses / Procedures Diagnoses DEBILITY Encounter Details Care Team Description Date Type Department Kyler Jansen DO [address] [place] [address] 01/05/2018 Anesthesia R [facility] Event [address] [place] [address] Anesthesia Record Responsible Anesthesiologist Anesthesia Start Time Anesthesia Stop Time Procedure Name ANESTHESIA PERIPHERAL NERVE BLOCK No events on file. Meds * No agents on file. * No blood administrations on file. No LDAs on file. in this encounter Social History Date Tobacco [...] hearing impairment: No as of this encounter Plan of Treatment Not on fileas of this encounter Visit Diagnoses Not on filein this encounter
--- OUTSIDE RECORDS SUMMARY | 2018-03-30 14:14 | XMS REPORT | Encounter Summary ---
Author Author [facility] Organization [facility] Address Unknown Phone Unavailable Care Team Providers Care Kettle Cleaner Name Role Phone Seb Mai Unavailable Unavailable Samir Lopez MD Unavailable Unavailable Samara Lugo RN Unavailable Unavailable Flavio Jackson MD PCP Reason for Visit * Auth/Cert Referred By Contact Referred To Contact Status Reason Specialty Diagnoses / Procedures Diagnoses DEBILITY Encounter Details Care Team Description Date Type Department Deandre Dover MD [id number] [place], [place] [id number] 01/05/2018 Anesthesia Main Pre/Post Event [facility] 2nd va [address] [place], [place] [phone] Anesthesia Record Responsible Anesthesiologist Anesthesia Start Time Anesthesia Stop Time Procedure Name 01/05/18 1415 PRE/POST PROCEDURE Date Time Event Comment 1413 Out of Pre 2018 Procedure 1415 Anes Start Meds Name Total bupivacaine liposome (PF) (EXPAREL) 20 20 mL mL, bupivacaine (MARCAINE) 0.5 % 30 mL 50 mL syringe bupivacaine (MARCAINE) 0.5% block 40 mL midazolam (VERSED) 5 mg/mL injection 1 mg fentaNYL PF (SUBLIMAZE) injection 50 mcg * No agents on file. * No blood administrations on file. Removal Type Details Placement Chest Tube 01/28/18; 1158; Right; Pleural; 24 FR (2 01/28/[address] Y together) Britta Forbes RN Wounds 01/28/18; 1226; Chest; Surgical 01/28/18 1226 by Somodi, (NOT for Incision; Dermabond CONSTANTIN Stone Pressure Injuries) 01/30/18 2300 by Bertha Mcclure RN Wounds 11/18/17; 1000; Anterior, Left; Leg; 11/18/17 1000 by Mario, (NOT for 01/30/18; 2300 CONSTANTIN Rousseau Pressure Injuries) 02/21/18 0939 by Osvaldo Lim, CONSTANTIN PICC 11/20/17; 1025; Other (Comment) ( 11/20/17 1025 by Lester [id number]); Claudette KILLIAN timeout Diane Yang VAT; Correct [...] is overlying the DSVC.); 02/21/18; 0939; Y 01/11/18 0000 by Mallory Diane RN Pressure 12/03/17; 2132; Y; Right, Inner; 12/03/17 2132 by Borja, Injury Buttocks; Stage 2; 01/11/18 CONSTANTIN Howell 01/19/18 1530 by Althea Reyes RN Gastrostom 12/15/17; 1047; Left, Mid, Quadrant, 12/15/17 1047 by rodolfo Mckinney Tube Outer; Yes; 01/19/18; 1530 CONSTANTIN Christianson 01/10/18 1046 by Akiko Barnes RN Wounds 12/29/17; 1432; Right; chest tube exit; 12/29/17 1432 by (NOT for 01/10/18; 1046 Reva Woods Pressure Injuries) 01/19/18 1054 by Akiko Barnes, CONSTANTIN Wounds 01/11/18; 1116; Left, Posterior; Hand; 01/11/18 1116 by Benedicto, (NOT for Skin Tear; 01/19/18; 1054 CONSTANTIN Tejada Pressure Injuries) 01/30/18 2300 by Bertha Mcclure RN Wounds 01/11/18; 1117; Left, Posterior; Wrist; 01/11/18 1117 by eBnedicto, (NOT for Skin Tear; 01/30/18; 2300 CONSTANTIN [...] Tear; 01/30/18; 2300 CONSTANTIN Oh Pressure Injuries) 01/25/18 1636 by Beatriz Fonseca RN Chest Tube 01/22/18; 1630; Right, Anterior (Chest 01/22/18 1630 by Bakalar , tube #1); Pleural; 9 FR; Correct CONSTANTIN Gupta Patient, Correct Procedure, Correct Patient Position, Correct Equipment / Implants Available, Correct Side / Site Marked "YES"; 01/25/18; 1636 01/28/18 1155 by Britta Forbes RN Chest Tube 01/22/18; 1745; Right, Posterior (Chest 01/22/18 1745 by Bakdebor, tube #2); Pleural; 14 FR; Correct CONSTANTIN [...] Ventilated by mask (1); 01/28/18 1125 by Tregmontrell, Direct laryngoscopy; Double-Lumen LArvind MD Cuffed; 37 Fr; Mac; 3; Oral; 1-Full view of the glottis; 1 insertion attempt; Auscultation, ETCO2 Detector; 29 centimeters; 01/28/18; 1231 02/01/18 0000 by Bertha Mcclure RN Chest Tube 01/28/18; 1159; Right; Pleural; 24 FR; 01/28/18 1159 by Somodi , 02/01/18 CONSTANTIN Stone 02/21/18 1001 by Osvaldo Lim RN Pressure 02/02/18; 1733; Y; Left, Right; 02/02/18 1733 by Higgins, Injury Buttocks; Stage 1; 02/21/18; 1001 CONSTANTIN Craig 02/09/18 1757 by Brianda Choudhury RN Pressure 02/02/18; 1734; Y; Left; Ear; Stage 3; 02/02/18 1734 by Ronaldo, Injury 02/09/18; 1757 CONSTANTIN Craig 02/21/18 1002 by Osvaldo Lim RN Pressure 02/02/18; 1737; Y; Coccyx; Stage 1; 02/02/18 1737 by Higgins, Injury 02/21/18; 1002 CONSTANTIN Craig in this encounter Social History Date Tobacco [...] on fileas of this encounter Results * ANESTHESIA PERIPHERAL NERVE BLOCK (01/05/2018 12:34 PM GLASS EDGER) Narrative Performed At Briana Alamo DO 01/05/2018 [...] by: BRIANA ALAMO Authorized by: DEANDRE DOVER in this encounter Visit Diagnoses Not on filein this encounter Administered Medications Action Date Dose Rate Site Medication Order MAR Action 01/05/2018 12:25 PM GLASS EDGER 20 mL bupivacaine (MARCAINE) 0.5 % injection Given INTRA-PROCEDURE MED, Starting Wed01/05/18 at 1220, Until Wed01/21/18 at 2032, Anesthesia Intra-op 20 mL Given 01/05/2018 12:20 PM GLASS EDGER 01/05/2018 12:25 PM GLASS EDGER 10 mL bupivacaine liposome (PF) (EXPAREL) 20 Bolus mL, bupivacaine (MARCAINE) 0.5 % 30 mL 50 mL syringe Block, ONCE, 1 dose, Wed01/05/18 at 1200, Inject slowly into tissues with trained technique. Note: Bupivacaine, ropivacaine, and lidocaine contraindicated within 96 hours of administration of this drug. Apply Exparel wristband to patient wrist with date and time of Exparel administration. DO NOT remove wristband for 96 hours from date and time administered. >>>>>>>>>>>>>>>EXPAREL WRISTBAND REQUIRED<<<<<<<<<<<<<<< NOTE: This is a HIGH ALERT Medication., 10 mL Given - New Bag 01/05/2018 12:20 PM GLASS EDGER 01/05/2018 12:15 PM GLASS EDGER 50 mcg fentaNYL citrate PF (SUBLIMAZE) Given injection INTRA-PROCEDURE MED, Starting Wed01/05/18 at 1215, Until Wed01/21/18 at 2031, Pain Injectable, Anesthesia Intra-op 01/05/2018 12:15 PM GLASS EDGER 1 mg midazolam (VERSED) injection Given INTRA-PROCEDURE MED, Starting Wed01/05/18 at 1215, Until Wed01/21/18 at 2030, Agitation Injectable, Anxiety Injectable, Anesthesia Intra-op in this encounter
[2018-03-30 14:15] LABS: INR 1.6 (0.8-1.4); PROTHROMBIN TIME PATIENT 19.3 SEC (12.2-14.7)
--- OUTSIDE RECORDS SUMMARY | 2018-03-30 14:15 | XMS REPORT ---
Author Author SAGE AYALA Organization [facility] Address [address] [place] [address] Care Team Providers Care Dramatic Coach Name Role Phone SAGE AYALA Unavailable PROBLEMS Type Condition ICD9-CM Code WAT09-WK Code Onset Dates Condition Status SNOMED Code Problem Environmental allergies Z91.09 Active 343936707 Problem Atrial fibrillation I48.91 Active 29600778 Problem CAD (coronary artery disease) of artery bypass graft I25.810 Active 167425527 Problem Lumbar radiculopathy M54.16 Active 326764988 Problem Cigarette nicotine dependence without complication F17.210 Active 19048966 Problem COPD (chronic obstructive pulmonary disease) J44.9 Active 57840914 Problem Shoulder pain M25.519 Active 37176222 Problem Arthritis, lumbar spine M46.96 Active 405806314 Problem Nasal congestion R09.81 Active 82771049 ALLERGIES No Information ENCOUNTERS Encounter Location Date Diagnosis [place] [id number] [place] [address] Jan, [facility] [id number] [place] [address] 93032- 7652 Jan, [facility] [id number] [place] [address] 05235- 4852 Aug, Lumbar radiculopathy M54.16 ; COPD (chronic obstructive pulmonary disease) J44.9 ; Cigarette nicotine dependence without complication F17.210 ; Atrial fibrillation I48.91 and CAD (coronary artery disease) of artery bypass graft I25.810 [facility] [id number] [place] [address]- 7401 Apr, Encounter for immunization Z23 ; COPD (chronic obstructive pulmonary disease) J44.9 ; Atrial fibrillation I48.91 and Arthritis, lumbar spine M46.96 [facility] [address] [address] Feb, COPD (chronic obstructive pulmonary disease) J44.9 [facility] [address] [address] Feb, [facility] [address] [address] Feb, COPD (chronic obstructive pulmonary disease) J44.9 [facility] [address] [address] 25[address] Aug, COPD (chronic obstructive pulmonary disease) J44.9 ; Atrial fibrillation I48.91 and Environmental allergies Z91.09 [place] [address], [place] [address] Jul, COPD (chronic obstructive pulmonary disease) J44.9 [place] [address], [place] [address] June, [facility] [address] [address] Feb, COPD (chronic obstructive pulmonary disease) J44.9 ; CAD ( coronary artery disease) of artery bypass graft I25.810 ; Environmental allergies Z91.09 ; Nasal congestion R09.81 and Atrial fibrillation I48.91 [facility] [id number] [address] Nov, COPD (chronic obstructive pulmonary disease) J44.9 ; CAD ( coronary artery disease) of artery bypass graft I25.810 ; Atrial fibrillation I48.91 and Environmental allergies Z91.09 [facility] [address] [address] Oct, [facility] [address] [address] Oct, [facility] [address] [address] 0460 Sep, [facility] [id number] [place] [address] 33203- 7620 Sep, [facility] [id number] [place] [address] 74754- 1628 May, Nasal congestion R09.81 ; Environmental allergies Z91.09 ; COPD (chronic obstructive pulmonary disease) J44.9 ; Atrial fibrillation I48.91 ; CAD (coronary artery disease) of artery bypass graft I25.810 and HTN ( hypertension) I10 [place] [address] [address] May, [place] [address] [address]213- 5883 May, [place] [address] [address]- [address] Nov, COPD (chronic obstructive pulmonary disease) J44.9 ; Encounter for immunization Z23 ; Shoulder pain M25.519 ; Atrial fibrillation I48.91 ; CAD (coronary artery disease) of artery bypass graft I25.810 and Hypercholesterolemia E78.0 [place] [id number] [place] [address]26- 6450 Aug, COPD (chronic obstructive pulmonary disease) 496 ; Other nonspecific abnormal finding of lung field 793.19 ; Chronic airway obstruction, not elsewhere classified 496 ; Unspecified systolic heart failure 428.20 ; Atrial fibrillation 427.31 ; Coronary atherosclerosis of unspecified type of vessel, [place] or graft 414.00 and Essential hypertension, benign 401.1 [place] [id number] [place] [address] 31015- 4439 Jul, [place] [id number] [place] [address]21- 9971 June, [address] [address] May, [place] [id number] [place] [address] 97944- 4533 May, [place] [address] [place] [address] 16 Apr, 2014 [facility] [place] [facility] [address] [id number] [place] [address]- 1162 16 Apr, 2014 [facility] [place] [facility] [address] [id number] [place] [address]- 9481 Apr, [facility] [place] [facility] [address] [id number] [place] [address]- 0178 Apr, [facility] [place] [facility] [address] [id number] [place] [address]- 4497 Apr, [facility] [place] [facility] [address] [id number] [place] [address]- 7117 Apr, [facility] [place] [facility] [address] [id number] [place] [address]- 7715 Mar, [facility] [place] [facility] [address] [id number] [place] [address]- 9838 Mar, [facility] [place] [facility] [address] [id number] [place] [address]- 7980 Mar, [facility] [place] [facility] [address] [id number] [place] [address]- 4362 Mar, [facility] [place] [facility] [address] [facility] [id number] [place] [address]- 8002 Feb, [facility] [place] [facility] [address] [id number] [place] [address]- 9714 Feb, [facility] [place] [facility] [address] [id number] [place] [address]- 5579 Feb, [facility] [place] [facility] [address] [id number] [place] [address]- 1459 Feb, [facility] [place] [facility] [address] [id number] [place] [address] Jan, [facility] [place] [facility] [address] [id number] [place] [address]- 0223 Jan, [facility] [place] [facility] [address] [id number] [place] [address]- 9057 Dec, [facility] [place] [facility] [address] [id number] [place] [address]- 3292 Dec, [facility] [place] [facility] [address] [id number] [place] [address]- 5548 Dec, [facility] [place] [facility] [address] [id number] [place] [address]- 4679 Dec, [facility] [place] [facility] [address] [id number] [place] [address]- 9661 Nov, [facility] [place] [facility] [address] [id number] [place] [address]- 0597 Nov, [facility] [place] [facility] [address] [id number] [place] [address]- 6827 Nov, [facility] [place] [facility] [address] [id number] [place] [address]- 7300 Nov, [facility] [place] [facility] [address] [id number] [place] [address]- 1872 Oct, [facility] [place] [facility] [address] [id number] [place] [address]- 5317 Oct, [facility] [place] [facility] [address] [id number] [place] [address]- 4775 Sep, [facility] [place] [facility] [address] [id number] [place] [address]- 2641 Sep, [facility] [place] [facility] [address] [id number] [place] [address]- 7899 Aug, [facility] [place] [facility] [address] [id number] [place] [address]- 2028 Aug, [facility] [place] [facility] [address] [id number] [place] [address]- 2146 Aug, [facility] [place] [facility] [address] [id number] [place] [address]- 0281 Aug, [facility] [place] [facility] [address] [id number] [place] [address]- 5276 Aug, [facility] [place] [facility] [address] [id number] [place] [address]- 4337 Aug, [facility] [place] [facility] [address] [id number] [place] [address]- 1648 June, [facility] [place] [facility] [address] [id number] [place] [address]- 9759 June, [facility] [place] [facility] [address] [id number] [place] [address]- 7253 May, [facility] [place] [facility] [address] [id number] [place] [address]- 4935 May, [facility] [place] [facility] [address] [id number] [place] [address]- 4912 May, [facility] [place] [facility] [address] [id number] [place] [address]- 6798 May, [facility] [place] [facility] [address] [id number] [place] [address]- 7201 May, [facility] [place] [facility] [address] [id number] [place] [address]- 8229 Apr, [facility] [place] [facility] [address] [id number] [place] [address]- 6889 Apr, [facility] [place] [facility] [address] [id number] [place] [address]- 0800 Apr, [facility] [place] [facility] [address] [id number] [place] [address]- 3026 Apr, [facility] [place] [facility] [address] [id number] [place] [address]- 4812 Apr, [facility] [place] [facility] [address] [id number] [place] [address]- 9755 Apr, [facility] [place] [facility] [address] [id number] [place] [address]- 2604 Mar, [facility] [place] [facility] [address] [id number] [place] [address]- 1388 Mar, [facility] [place] [facility] [address] [id number] [place] [address]- 3374 Mar, [facility] [place] [facility] [address] [id number] [place] [address]- 5911 Mar, [facility] [place] [facility] [address] [id number] [place] [address]- 0208 Dec, [facility] [place] [facility] [address] [id number] [place] [address]- 7695 Dec, [facility] [place] [facility] [address] [id number] [place] [address]- 7900 Nov, [facility] [place] [facility] [address] [id number] [place] [address]- 7059 Oct, [facility] [place] [facility] [address] [id number] [place] [address]- 2970 Sep, [facility] [place] [facility] [address] [id number] [place] [address]- 2461 Sep, [facility] [place] [facility] [address] [id number] [place] [address]- 8108 Aug, [facility] [place] [facility] [address] [id number] [place] [address]- 3724 Aug, [facility] [place] [facility] [address] [id number] [place] [address]- 9275 Aug, [facility] [place] [facility] [address] [id number] [place] [address]- 1498 Aug, [facility] [place] [facility] [address] [id number] [place] [address]- 7601 Jul, [facility] [place] [facility] [address] [id number] [address]- 3124 Jul, [facility] [place] [facility] [address] [id number] [place] [address]- 9550 May, [facility] [place] [facility] [address] [id number] [place] [address]- 9916 May, [facility] [place] [facility] [address] [id number] [place] [address]- 1139 May, [facility] [place] [facility] [address] [id number] [place] [address]- 9650 Apr, [facility] [place] [facility] [address] [id number] [place] [address]- 8546 Apr, [facility] [place] [facility] [address] [id number] [place] [address]- 4966 Apr, [facility] [place] [facility] [address] [id number] [place] [address]- 9248 Apr, [facility] [place] [facility] [address] [id number] [place] [address]- 7693 Mar, [facility] [place] [facility] [address] [id number] [place] [address]- 3121 Feb, [facility] [place] [facility] [address] [id number] [place] [address]- 3976 Nov, [facility] [place] [facility] [address] [id number] [place] [address]- 0924 Nov, [facility] [place] [facility] [address] [id number] [place] [address]- 6630 Nov, [facility] [place] [facility] [address] [id number] [place] 3527 Nov, [facility] [place] [facility] [address] [id number] [place] [address]- 9062 10 Oct, 2011 [facility] [place] [facility] [address] [id number] [place] [address]909 Sep, [facility] [place] [facility] [address] [facility] [id number] [place] [address]- 3245 Sep, IMMUNIZATIONS No Known Immunizations SOCIAL HISTORY Never Assessed REASON FOR VISIT REFERRAL PLAN OF CARE VITAL SIGNS MEDICATIONS Unknown Medications RESULTS No Results PROCEDURES No Known procedures INSTRUCTIONS MEDICATIONS ADMINISTERED No Known Medications MEDICAL (GENERAL) HISTORY Type Description Date Medical History chronic obstructive pulmonary disease (COPD) Medical History hyperlipidemia Medical History coronary artery disease Medical History cardiomyopathy Medical History congestive heart failure Medical History degenerative joint disease Medical History hypertension Medical History Paroxysmal Atrial Fibrillation Medical History asthma Surgical History Cardiac Stent placed 03/2012 Surgical History Afib-Cardioversion 11/2012 Surgical History arthroscopy of right knee Surgical History orthopedic surgery-Left elbow Surgical History coronary angiography 03/2012 Surgical History Broken nose repair 1969 Hospitalization History surgeries
--- OUTSIDE RECORDS SUMMARY | 2018-03-30 14:15 | XMS REPORT ---
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 Name Role Phone SAGE AYALA Unavailable PROBLEMS Type Condition ICD9-CM Code HCD65-PO Code Onset Dates Condition Status SNOMED Code Problem Environmental allergies Z91.09 Active 988973908 Problem Atrial fibrillation I48.91 Active 22824283 Problem CAD (coronary artery disease) of artery bypass graft I25.810 Active 004353125 Problem Lumbar radiculopathy M54.16 Active 986794817 Problem Cigarette nicotine dependence without complication F17.210 Active 30065969 Problem COPD (chronic obstructive pulmonary disease) J44.9 Active 20980448 Problem Shoulder pain M25.519 Active 52174630 Problem Arthritis, lumbar spine M46.96 Active 747167395 Problem Nasal congestion R09.81 Active 79142615 ALLERGIES No Information ENCOUNTERS Encounter Location Date Diagnosis [place] [id number] [place] [address] Jan, [facility] [place] [id number] [place] [address]3547- 9271 Jan, [facility] [place] [id number] [place] [address]7318- 5496 Aug, Lumbar radiculopathy M54.16 ; COPD (chronic obstructive pulmonary disease) J44.9 ; Cigarette nicotine dependence without complication F17.210 ; Atrial fibrillation I48.91 and CAD (coronary artery disease) of artery bypass graft I25.810 [facility] [place] [id number] [place] [address]290- 5955 Apr, Encounter for immunization Z23 ; COPD (chronic obstructive pulmonary disease) J44.9 ; Atrial fibrillation I48.91 and Arthritis, lumbar spine M46.96 [place] [address] [address] Feb, COPD (chronic obstructive pulmonary disease) J44.9 [facility] [place] [address] [address] Feb, [facility] [place] [address] [address] Feb, COPD (chronic obstructive pulmonary disease) J44.9 [facility] [place] [address] [address] Aug, COPD (chronic obstructive pulmonary disease) J44.9 ; Atrial fibrillation I48.91 and Environmental allergies Z91.09 [place] [address] [address] Jul, COPD (chronic obstructive pulmonary disease) J44.9 [place] [address] [address] June, [facility] [place] [address] [address] Feb, COPD (chronic obstructive pulmonary disease) J44.9 ; CAD ( coronary artery disease) of artery bypass graft I25.810 ; Environmental allergies Z91.09 ; Nasal congestion R09.81 and Atrial fibrillation I48.91 [facility] [place] [id number] [address] Nov, COPD (chronic obstructive pulmonary disease) J44.9 ; CAD ( coronary artery disease) of artery bypass graft I25.810 ; Atrial fibrillation I48.91 and Environmental allergies Z91.09 [facility] [place] [address] [address] Oct, [facility] [place] [address] [address] Oct, [facility] [place] [address] [address] Sep, [facility] [place] [id number] [place] [address] 37196- 5667 Sep, [facility] [place] [id number] [place] [address] 16643- 3935 May, Nasal congestion R09.81 ; Environmental allergies Z91.09 ; COPD (chronic obstructive pulmonary disease) J44.9 ; Atrial fibrillation I48.91 ; CAD (coronary artery disease) of artery bypass graft I25.810 and HTN ( hypertension) I10 [place] [address] [address] May, [place] [address] [address]- 1498 May, [place] [address] [address]- [address]14 Nov, COPD (chronic obstructive pulmonary disease) J44.9 ; Encounter for immunization Z23 ; Shoulder pain M25.519 ; Atrial fibrillation I48.91 ; CAD (coronary artery disease) of artery bypass graft I25.810 and Hypercholesterolemia E78.0 [place] [id number] [place] [address] 27328- 0391 Aug, COPD (chronic obstructive pulmonary disease) 496 ; Other nonspecific abnormal finding of lung field 793.19 ; Chronic airway obstruction, not elsewhere classified 496 ; Unspecified systolic heart failure 428.20 ; Atrial fibrillation 427.31 ; Coronary atherosclerosis of unspecified type of vessel, [place] or graft 414.00 and Essential hypertension, benign 401.1 [place] [address] [place] [address] 83641- 6493 Jul, [place] [id number] [place] [address]28- 2631 June, [address] [address]- [address]20 May, [place] [id number] [place] [address]88- 2830 May, [place] [address] [place] [address] 16 Apr, 2014 [facility] [place] [facility] [address] [id number] [place] [address]- 7192 16 Apr, 2014 [facility] [place] [facility] [address] [id number] [place] [address]- 0482 Apr, [facility] [place] [facility] [address] [id number] [place] [address]- 3785 Apr, [facility] [place] [facility] [address] [id number] [place] [address]- 7689 Apr, [facility] [place] [facility] [address] [id number] [place] [address]- 5113 Apr, [facility] [place] [facility] [address] [id number] [place] [address]- 0281 Mar, [facility] [place] [facility] [address] [id number] [place] [address]- 3359 Mar, [facility] [place] [facility] [address] [id number] [place] [address]- 3037 Mar, [facility] [place] [facility] [address] [id number] [place] [address]- 9248 Mar, [facility] [place] [facility] [address] [facility] [id number] [place] [address]- 3889 Feb, [facility] [place] [facility] [address] [id number] [place] [address]- 5997 Feb, [facility] [place] [facility] [address] [id number] [place] [address]- 0786 Feb, [facility] [place] [facility] [address] [id number] [place] [address]- 9540 Feb, [facility] [place] [facility] [address] [id number] [place] [address] Jan, [facility] [place] [facility] [address] [id number] [place] [address]- 9234 Jan, [facility] [place] [facility] [address] [id number] [place] [address]- 9002 Dec, [facility] [place] [facility] [address] [id number] [place] [address]- 7243 Dec, [facility] [place] [facility] [address] [id number] [place] [address]- 4041 Dec, [facility] [place] [facility] [address] [id number] [place] [address]- 5384 Dec, [facility] [place] [facility] [address] [id number] [place] [address]- 1823 Nov, [facility] [place] [facility] [address] [id number] [place] [address]- 1680 Nov, [facility] [place] [facility] [address] [id number] [place] [address]- 9874 Nov, [facility] [place] [facility] [address] [id number] [place] [address]- 2557 Nov, [facility] [place] [facility] [address] [id number] [place] [address]- 7272 Oct, [facility] [place] [facility] [address] [id number] [place] [address]- 5607 Oct, [facility] [place] [facility] [address] [id number] [place] [address]- 7025 Sep, [facility] [place] [facility] [address] [id number] [place] [address]- 4655 Sep, [facility] [place] [facility] [address] [id number] [place] [address]- 5053 Aug, [facility] [place] [facility] [address] [id number] [place] [address]- 1815 Aug, [facility] [place] [facility] [address] [id number] [place] [address]- 6755 Aug, [facility] [place] [facility] [address] [id number] [place] [address]- 5315 Aug, [facility] [place] [facility] [address] [id number] [place] [address]- 4350 Aug, [facility] [place] [facility] [address] [id number] [place] [address]- 5083 Aug, [facility] [place] [facility] [address] [id number] [place] [address]- 4159 June, [facility] [place] [facility] [address] [id number] [place] [address]- 6348 June, [facility] [place] [facility] [address] [id number] [place] [address]- 8626 May, [facility] [place] [facility] [address] [id number] [place] [address]- 4821 May, [facility] [place] [facility] [address] [id number] [place] [address]- 3114 May, [facility] [place] [facility] [address] [id number] [place] [address]- 5966 May, [facility] [place] [facility] [address] [id number] [place] [address]- 1710 May, [facility] [place] [facility] [address] [id number] [place] [address]- 6335 Apr, [facility] [place] [facility] [address] [id number] [place] [address]- 4126 Apr, [facility] [place] [facility] [address] [id number] [place] [address]- 7274 Apr, [facility] [place] [facility] [address] [id number] [place] [address]- 5014 Apr, [facility] [place] [facility] [address] [id number] [place] [address]- 2767 Apr, [facility] [place] [facility] [address] [id number] [place] [address]- 4887 Apr, [facility] [place] [facility] [address] [id number] [place] [address]- 7356 Mar, [facility] [place] [facility] [address] [id number] [place] [address]- 3946 Mar, [facility] [place] [facility] [address] [id number] [place] [address]- 0576 Mar, [facility] [place] [facility] [address] [id number] [place] [address]- 9287 Mar, [facility] [place] [facility] [address] [id number] [place] [address]- 1061 Dec, [facility] [place] [facility] [address] [id number] [place] [address]- 6256 Dec, [facility] [place] [facility] [address] [id number] [place] [address]- 9053 Nov, [facility] [place] [facility] [address] [id number] [place] [address]- 6265 Oct, [facility] [place] [facility] [address] [id number] [place] [address]- 1975 Sep, [facility] [place] [facility] [address] [id number] [place] [address]- 5656 Sep, [facility] [place] [facility] [address] [id number] [place] [address]- 3110 Aug, [facility] [place] [facility] [address] [id number] [place] [address]- 7105 Aug, [facility] [place] [facility] [address] [id number] [place] [address]- 4112 Aug, [facility] [place] [facility] [address] [id number] [place] [address]- 1669 Aug, [facility] [place] [facility] [address] [id number] [place] [address]- 4267 Jul, [facility] [place] [facility] [address] [id number] [address]- 0700 Jul, [facility] [place] [facility] [address] [id number] [place] [address]- 9665 May, [facility] [place] [facility] [address] [id number] [place] [address]- 0080 May, [facility] [place] [facility] [address] [id number] [place] [address]- 7193 May, [facility] [place] [facility] [address] [id number] [place] [address]- 3160 Apr, [facility] [place] [facility] [address] [id number] [place] [address]- 0998 Apr, [facility] [place] [facility] [address] [id number] [place] [address]- 0850 Apr, [facility] [place] [facility] [address] [id number] [place] [address]- 4405 Apr, [facility] [place] [facility] [address] [id number] [place] [address]- 3286 Mar, [facility] [place] [facility] [address] [id number] [place] [address]- 5497 Feb, [facility] [place] [facility] [address] [id number] [place] [address]- 9275 Nov, [facility] [place] [facility] [address] [id number] [place] [address]- 8563 Nov, [facility] [place] [facility] [address] [id number] [place] [address]- 8431 Nov, [facility] [place] [facility] [address] [id number] [place] [address] Nov, [facility] [place] [facility] [address] [id number] [place] [address]- 0640 10 Oct, 2011 [facility] [place] [facility] [address] [id number] [place] [address] Sep, [facility] [place] [facility] [address] [facility] [id number] [place] [address]- 2738 Sep, IMMUNIZATIONS No Known Immunizations SOCIAL HISTORY Never Assessed REASON FOR VISIT referral PLAN OF CARE VITAL SIGNS MEDICATIONS Unknown [...]
[2018-03-30 14:19] LABS: BASOPHILS % (AUTO) 0 % (0-10); EOSINOPHILS # (AUTO) 0.1 10^3/uL (0.0-0.3); EOSINOPHILS % (AUTO) 1 % (0-10); HEMATOCRIT 34 % (40-54); HEMOGLOBIN 10.6 G/DL (13.3-17.7); LYMPHOCYTES # (AUTO) 1.5 X 10^3 (1.0-4.0); LYMPHOCYTES % (AUTO) 11 % (12-44); MEAN CORPUSCULAR HEMOGLOBIN 32 PG (25-34); MEAN CORPUSCULAR HGB CONC 31 G/DL (32-36); MEAN CORPUSCULAR VOLUME 104 FL (80-99); MEAN PLATELET VOLUME 9.6 FL (7.4-10.4); MONOCYTES % (AUTO) 8 % (0-12); NEUTROPHILS # (AUTO) 10.9 X 10^3 (1.8-7.8); NEUTROPHILS % (AUTO) 80 % (42-75); PLATELET COUNT 411 10^3/uL (130-400); RED CELL DISTRIBUTION WIDTH 18.2 % (10.0-14.5); WHITE BLOOD COUNT 13.5 10^3/uL (4.3-11.0)
[2018-03-30 14:33] LABS: ALANINE AMINOTRANSFERASE 7 U/L (0-55); ALBUMIN 1.9 GM/DL (3.2-4.5); ALKALINE PHOSPHATASE 77 U/L (40-136); BILIRUBIN,TOTAL 0.2 MG/DL (0.1-1.0); BUN/CREATININE RATIO 12; CARBON DIOXIDE 15 MMOL/L (21-32); CHLORIDE 119 MMOL/L (98-107); CREATININE SERUM 0.49 MG/DL (0.60-1.30); GFR ESTIMATED > 60; GLUCOSE 64 MG/DL (70-105); POTASSIUM 2.7 MMOL/L (3.6-5.0); SODIUM 142 MMOL/L (135-145); TOTAL PROTEIN 4.5 GM/DL (6.4-8.2)
[2018-03-30 14:38] LABS: CALCIUM 5.9 MG/DL (8.5-10.1)
--- NOTE | 2018-03-30 14:43 | Diagnostic Imaging Report ---
INDICATION: Coughing up blood. TIME OF EXAM: 2:23 PM CORRELATION is made with prior chest radiograph from 11/13/2017. FINDINGS: There continues to be some parenchymal airspace consolidation in the right upper lobe. The degree of involvement in the right upper lobe appears to be improved however when compared with prior exam. Lungs are hyperinflated consistent with COPD. No effusion is identified. There is no pneumothorax. There is minimal density in the left upper lobe indeterminate and followup would be recommended. IMPRESSION: Right upper lobe airspace consolidation shows mild improvement when compared with prior chest radiograph from 11/13/2017. Dictated by: Dictated on workstation # [id number]
[2018-03-30] MEDS ORDERED: KCL 10 MEQ TAB (MICRO K) PO ONE (15:00)
[2018-03-30] MEDS ORDERED: CALCIUM GLUCONATE 10% INJ 4.65 MEQ in NS (IVPB) 50 ML IV ONE ×2 (15:00→16:00)
[2018-03-30] MEDS ORDERED: CALCIUM GLUC. 10% 4.65 MEQ/10 ML VIAL IV ONE (15:45)
[2018-03-30 16:47] VITALS: BP 123/83
== END 2018-03-30 16:47 | disposition home or self-care (01) ==
LOC: EDUNIT# 12:54 → ER 12:56
DX: J18.9 Pneumonia, unspecified organism (principal); E83.51 Hypocalcemia; E87.6 Hypokalemia; R04.2 Hemoptysis; I25.2 Old myocardial infarction; J44.9 Chronic obstructive pulmonary disease, unspecified; I48.91 Unspecified atrial fibrillation; E78.00 Pure hypercholesterolemia, unspecified; I10 Essential (primary) hypertension; I25.10 Atherosclerotic heart disease of native coronary artery without angina pectoris; Z90.2 Acquired absence of lung [part of]; Z95.5 Presence of coronary angioplasty implant and graft; Z95.810 Presence of automatic (implantable) cardiac defibrillator; Z87.01 Personal history of pneumonia (recurrent); Z79.51 Long term (current) use of inhaled steroids; Z79.01 Long term (current) use of anticoagulants; Z87.891 Personal history of nicotine dependence
CPT/HCPCS: 36415; 71046; 80053; 80162; 82330; 83970; 85025; 85610; 85730; 86141; 93005; 93041

== ENCOUNTER → 2018-03-31 | Outpatient (CLI) | payer MEDICARE ==
[2018-03-31 12:10] LABS: BASOPHILS % (AUTO) 0 % (0-10); EOSINOPHILS # (AUTO) 0.2 10^3/uL (0.0-0.3); EOSINOPHILS % (AUTO) 2 % (0-10); HEMATOCRIT 37 % (40-54); HEMOGLOBIN 11.4 G/DL (13.3-17.7); LYMPHOCYTES # (AUTO) 1.9 X 10^3 (1.0-4.0); LYMPHOCYTES % (AUTO) 18 % (12-44); MEAN CORPUSCULAR HEMOGLOBIN 32 PG (25-34); MEAN CORPUSCULAR HGB CONC 31 G/DL (32-36); MEAN CORPUSCULAR VOLUME 104 FL (80-99); MEAN PLATELET VOLUME 9.2 FL (7.4-10.4); MONOCYTES # (AUTO) 0.9 X 10^3 (0.0-1.0); MONOCYTES % (AUTO) 9 % (0-12); NEUTROPHILS # (AUTO) 7.2 X 10^3 (1.8-7.8); NEUTROPHILS % (AUTO) 70 % (42-75); PLATELET COUNT 412 10^3/uL (130-400); RED CELL DISTRIBUTION WIDTH 18.1 % (10.0-14.5); WHITE BLOOD COUNT 10.3 10^3/uL (4.3-11.0)
[2018-03-31 12:18] LABS: ALANINE AMINOTRANSFERASE 13 U/L (0-55); ALBUMIN 3.3 GM/DL (3.2-4.5); ALKALINE PHOSPHATASE 115 U/L (40-136); BILIRUBIN,TOTAL 0.4 MG/DL (0.1-1.0); BUN/CREATININE RATIO 13; CALCIUM 9.7 MG/DL (8.5-10.1); CARBON DIOXIDE 24 MMOL/L (21-32); CHLORIDE 103 MMOL/L (98-107); CREATININE SERUM 0.84 MG/DL (0.60-1.30); GFR ESTIMATED > 60; GLUCOSE 97 MG/DL (70-105); MAGNESIUM 1.6 MG/DL (1.8-2.4); POTASSIUM 4.4 MMOL/L (3.6-5.0); SODIUM 137 MMOL/L (135-145); TOTAL PROTEIN 8.1 GM/DL (6.4-8.2)
== END ==
LOC: RT 11:06
PROVIDERS: ATTEND Nurse Practitioner Family
DX: J44.9 Chronic obstructive pulmonary disease, unspecified (principal); E87.6 Hypokalemia
CPT/HCPCS: 36415; 80053; 83735; 85025

== ENCOUNTER → 2018-03-31 | Outpatient (CLI) | payer MEDICARE ==
[2018-03-31 12:00] LABS: BASOPHILS % (AUTO) 0 % (0-10); EOSINOPHILS # (AUTO) 0.2 10^3/uL (0.0-0.3); EOSINOPHILS % (AUTO) 2 % (0-10); HEMATOCRIT 37 % (40-54); HEMOGLOBIN 11.4 G/DL (13.3-17.7); LYMPHOCYTES # (AUTO) 1.9 X 10^3 (1.0-4.0); LYMPHOCYTES % (AUTO) 18 % (12-44); MEAN CORPUSCULAR HEMOGLOBIN 32 PG (25-34); MEAN CORPUSCULAR HGB CONC 31 G/DL (32-36); MEAN CORPUSCULAR VOLUME 104 FL (80-99); MEAN PLATELET VOLUME 9.2 FL (7.4-10.4); MONOCYTES # (AUTO) 0.9 X 10^3 (0.0-1.0); MONOCYTES % (AUTO) 9 % (0-12); NEUTROPHILS # (AUTO) 7.2 X 10^3 (1.8-7.8); NEUTROPHILS % (AUTO) 70 % (42-75); PLATELET COUNT 412 10^3/uL (130-400); RED CELL DISTRIBUTION WIDTH 18.1 % (10.0-14.5); WHITE BLOOD COUNT 10.3 10^3/uL (4.3-11.0)
[2018-03-31 12:20] LABS: ABG OXYGEN SATURATION 96 % (94-100); ABG PCO2 36 MMHG (35-45); ABG PH 7.43 (7.37-7.43); ABG PO2 69 MMHG (79-93); ALLENS TEST YES-POS; INSPIRED O2 ROOM AIR; PATIENT TEMP 97.2; VENTILATOR NO
[2018-03-31 12:22] LABS: BUN/CREATININE RATIO 13; CALCIUM 9.7 MG/DL (8.5-10.1); CARBON DIOXIDE 24 MMOL/L (21-32); CHLORIDE 103 MMOL/L (98-107); CREATININE SERUM 0.84 MG/DL (0.60-1.30); GFR ESTIMATED > 60; GLUCOSE 97 MG/DL (70-105); POTASSIUM 4.4 MMOL/L (3.6-5.0); SODIUM 137 MMOL/L (135-145)
[2018-03-31 12:23] LABS: ALANINE AMINOTRANSFERASE 13 U/L (0-55); ALBUMIN 3.3 GM/DL (3.2-4.5); ALKALINE PHOSPHATASE 115 U/L (40-136); BILIRUBIN,TOTAL 0.4 MG/DL (0.1-1.0); TOTAL PROTEIN 8.1 GM/DL (6.4-8.2)
== END ==
LOC: LAB 11:16
PROVIDERS: ATTEND Internal Medicine Infectious Disease
DX: J44.9 Chronic obstructive pulmonary disease, unspecified (principal); E87.6 Hypokalemia; B44.0 Invasive pulmonary aspergillosis; Z79.2 Long term (current) use of antibiotics
CPT/HCPCS: 36415; 80053; 82805; 85025

== ENCOUNTER 2018-04-11 09:19 | Outpatient (RCR) | payer MEDICARE, OTHER ==
[~2018-04-11 09:19] MED LIST changes: -RIVA20TA PO; +RIVA20TA2 PO
== END 2018-07-10 | disposition home or self-care (01) ==
LOC: PULM 09:19
PROVIDERS: ATTEND Internal Medicine
DX: J44.9 Chronic obstructive pulmonary disease, unspecified (principal)
CPT/HCPCS: 99211

== ENCOUNTER → 2018-06-24 | Outpatient (CLI) | payer MEDICARE, OTHER ==
[2018-06-24 15:31] LABS: ALANINE AMINOTRANSFERASE 14 U/L (0-55); ALKALINE PHOSPHATASE 100 U/L (40-136); BILIRUBIN,TOTAL 0.3 MG/DL (0.1-1.0); BUN/CREATININE RATIO 9; CARBON DIOXIDE 24 MMOL/L (21-32); CHLORIDE 104 MMOL/L (98-107); CREATININE SERUM 0.88 MG/DL (0.60-1.30); GFR ESTIMATED > 60; GLUCOSE 89 MG/DL (70-105); POTASSIUM 4.2 MMOL/L (3.6-5.0); SODIUM 138 MMOL/L (135-145)
[2018-06-24 15:42] LABS: BASOPHILS % (AUTO) 0 % (0-10); EOSINOPHILS # (AUTO) 0.2 10^3/uL (0.0-0.3); EOSINOPHILS % (AUTO) 2 % (0-10); HEMATOCRIT 43 % (40-54); HEMOGLOBIN 14.8 G/DL (13.3-17.7); LYMPHOCYTES % (AUTO) 21 % (12-44); MEAN CORPUSCULAR HEMOGLOBIN 35 PG (25-34); MEAN CORPUSCULAR HGB CONC 35 G/DL (32-36); MEAN CORPUSCULAR VOLUME 100 FL (80-99); MONOCYTES # (AUTO) 0.9 X 10^3 (0.0-1.0); MONOCYTES % (AUTO) 9 % (0-12); NEUTROPHILS # (AUTO) 6.3 X 10^3 (1.8-7.8); NEUTROPHILS % (AUTO) 67 % (42-75); PLATELET COUNT 223 10^3/uL (130-400); RED CELL DISTRIBUTION WIDTH 14.3 % (10.0-14.5); WHITE BLOOD COUNT 9.4 10^3/uL (4.3-11.0)
== END ==
LOC: LAB 14:53
PROVIDERS: ATTEND Internal Medicine Infectious Disease
DX: B44.0 Invasive pulmonary aspergillosis (principal)
CPT/HCPCS: 36415; 80053; 85025

== ENCOUNTER → 2018-07-21 | Outpatient (CLI) | payer MEDICARE, OTHER ==
--- NOTE | 2018-07-21 16:28 | Diagnostic Imaging Report ---
PROCEDURE: CT chest without contrast. TECHNIQUE: Multiple contiguous axial images were obtained through the chest without the use of intravenous contrast. Auto Exposure Controls were utilized during the CT exam to meet ALARA standards for radiation dose reduction. INDICATION: Pulmonary infection, followup. CORRELATION STUDY: CT chest of 11/13/2017, chest radiograph of 03/30/2018. FINDINGS: There is rather advanced emphysematous lung disease with scattered areas of bullous and fibrotic-type change. There is an irregular elongated area of consolidation about the right upper lobe. This extends from the suprahilar region towards the lateral and posterior pleural surface. While somewhat difficult to quantify, maximum dimensions in the axial plane are approximately 5.2 x 4.1 cm with a craniocaudal extent of approximately 4.5 cm. There is suggestion of some cavitation and air bronchograms within this area. Overlying pleural thickening is noted, most pronounced along the lateral posterior aspect that measures 5.8 x 2.6 cm. There are a few micronodules suggested about the subpleural region of the right lower lobe, nonspecific. Superior centrally in the left lower lobe is a spiculated mass measuring 14 x 6 x 14 mm. More centrally in the posteromedial left lower lobe is a questionable additional parenchymal density measuring approximately 9 mm. Somewhat more focal scar-like parenchymal density in the posterior left upper lobe also present. There are a few micronodules about the left lower lobe, nonspecific. No appreciable pleural effusion. Heart size is within normal limits. Scattered coronary artery calcification. A few mild prominent but non pathologically enlarged mediastinal lymph nodes are present. Right suprahilar lymphadenopathy is not excluded. There is asymmetric contour deformity about the mid inferior body of the sternum with some sclerosis present. This appears change from prior study. IMPRESSION: 1. Large area of abnormal consolidation about the right upper lobe. While conceivably could be reflective of some pneumonia, is highly worrisome for potential primary lung neoplasm. This area would likely be amenable to bronchoscopy before tissue sampling. 2. Additional concerning mass about the left lower lobe, also worrisome for potential primary neoplasm with a questionable second lesion in the left lower lobe. 3. Additional small micronodules are suggested about both lower lobes, currently nonspecific. They could be inflammatory and/or infectious in etiology with the possibility of additional malignant pulmonary nodules not excluded. 4. Change in the appearance about the sternum. Given the overall findings, underlying neoplasm was not excluded. This could also be owing to prior traumatic change. Clinical correlation is recommended. 5. Given multiplicity of findings, PET/CT imaging would likely be of additional diagnostic utility. Dictated by: Dictated on workstation # [id number]
== END ==
LOC: RAD 09:02
PROVIDERS: ATTEND Internal Medicine Infectious Disease
DX: B44.1 Other pulmonary aspergillosis (principal); J18.1 Lobar pneumonia, unspecified organism; R91.8 Other nonspecific abnormal finding of lung field
CPT/HCPCS: 71250

== ENCOUNTER → 2018-09-12 | Outpatient (CLI) | payer MEDICARE ==
[2018-09-12 14:26] LABS: ABG BASE EXCESS 1.5 MMOL/L (-2.5-2.5); ABG OXYGEN SATURATION 96 % (94-100); ABG PCO2 39 MMHG (35-45); ABG PH 7.43 (7.37-7.43); ABG PO2 70 MMHG (79-93); ABG TCO2 26.7 MMOL/L (21.0-31.0)
[2018-09-12 14:29] LABS: ALLENS TEST YES-POS; INSPIRED O2 ROOM AIR; PATIENT TEMP 97.7; VENTILATOR NO
== END ==
LOC: RT 13:49
DX: J43.2 Centrilobular emphysema (principal); B44.0 Invasive pulmonary aspergillosis
CPT/HCPCS: 36600; 82805

== ENCOUNTER → 2018-11-14 | Outpatient (CLI) | payer MEDICARE ==
--- NOTE | 2018-11-14 14:24 | Diagnostic Imaging Report ---
EXAMINATION: PA and lateral Chest at 1:29 p.m. INDICATION: Pulmonary aspergillosis. FINDINGS: The heart size is within normal limits and stable when compared to 03/30/2018. The prior exam did note an area of consolidation involving the right upper lobe. The subsequent CT chest exam of 07/21/2018 noted a 4.1 x 5.2 cm spiculated area of mixed density in this region. On this study, the area of increased density in the right upper lung is less conspicuous. The rind of increased density along the periphery of the right upper lung seen previously is somewhat smaller as well. This may represent an area of pneumonia/atelectasis which is slowly resolving. 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 If further evaluation is desired, then repeat CT chest exam should be obtained. The overall appearance of the chest is otherwise stable. No new area of pneumonia has developed, and there is still no sign of a pleural effusion. The heart is stable in size. The mediastinum is not widened. The osseous structures are intact. IMPRESSION: 1. The appearance of the chest has improved since the prior exam as the right upper lung does seem better aerated. There is still some residual density in this area and along the periphery of the right upper lobe. This finding may be related to slowly clearing pneumonia/atelectasis. Recommendations as above. 2. There is no acute cardiopulmonary abnormality noted. Dictated by: Dictated on workstation # [id number]
== END ==
LOC: RAD 13:17
PROVIDERS: ATTEND Internal Medicine Critical Care Medicine
DX: J44.9 Chronic obstructive pulmonary disease, unspecified (principal); B44.0 Invasive pulmonary aspergillosis; J98.4 Other disorders of lung
CPT/HCPCS: 71046

== ENCOUNTER → 2019-03-03 | Outpatient (CLI) | payer MEDICARE ==
[~2019-03-03] MED LIST changes: +DILT240C91 PO
--- NOTE | 2019-03-03 13:38 | Diagnostic Imaging Report ---
EXAMINATION: Chest 2 view HISTORY: COPD WITHOUT EXACERBATION INVASIVE PULMONARY ASPERGILLOSIS COMPARISON: 11/14/2018 FINDINGS: The lung volumes are hyperexpanded. Stable opacities are seen in the right upper lobe. No new focal opacities are seen. No large pleural effusion or pneumothorax. Stable cardiac silhouette. No acute osseous abnormalities. IMPRESSION: 1. Continued opacities in the right upper lobe, consistent with the patient history of aspergillosis. No new focal opacities are seen. Recommend continued followup to exclude underlying malignancy. 2. Hyperexpanded lungs, consistent with a history of COPD. Dictated by: Dictated on workstation # [id number]
== END ==
LOC: RAD 12:59
PROVIDERS: ATTEND Internal Medicine Critical Care Medicine
DX: J44.9 Chronic obstructive pulmonary disease, unspecified (principal); B44.0 Invasive pulmonary aspergillosis
CPT/HCPCS: 71046

== ENCOUNTER 2019-03-13 17:13 | Emergency (ER) | payer MEDICARE ==
[~2019-03-13] VITALS: Ht 188 cm; Wt 72.6 kg
--- NOTE | 2019-03-13 19:12 | ED Upper Extremity ---
General Chief Complaint: Upper Extremity Stated Complaint: L SHOULDER SWELLING Nursing Triage Note: PT PRESENTS TO THE ED WITH C/O HIS LEFT SHOULDER DEVELOPING SWELLING AND BRUISING WITH NO KNOW ORGANIC CAUSE. OBVIOUS SWELLING AND ECCYMOSIS NOTED ON EXAM. PT STATES HE IS TAKING BLOOD THINNERS. Nursing Sepsis Screen: No Definite Risk Source: patient, spouse Exam Limitations: no limitations History of Present Illness Date Seen by Provider: Mar 13, 2019 Time Seen by Provider: 18:55 Initial Comments The patient presents to ER by private conveyance with spouse and chief complaint of about 3 or 4:00 this [place] and noticed some swelling on his left upper ribs laterally. He denies any traumatic issues. He does take Xarelto for history of atrial fibrillation. He has a history of very bad shoulders and has been followed by Dr. Yanez but they have no plans to do any surgeries. He's been told because of his COPD he is not a good candidate for surgery. He has never had surgery on his shoulder before. His last steroid injection was about 2 months ago. He's having no numbness or tingling in his distal left upper extremity. He has some decreased range of motion but no swelling about the glenohumeral joint or acromioclavicular joint. He takes Aleve daily but no aspirin. He rates the pain as fairly severe and says that the main reason he came to the ER. His spouse concern is that he may bleed too much. Allergies and Home Medications Allergies Coded Allergies: No Known Drug Allergies (Unverified , 03/17/12) Home Medications Albuterol Sulfate 1 Puff Puff, 2 PUFF INH Q4H PRN for SHORTNESS OF BREATH, (Reported) Atorvastatin Calcium 10 Mg Tablet, 10 MG PO HS, (Reported) Budesonide/Formoterol Fumarate 10.2 Gm Hfa.aer.ad, 2 PUFF INH BID, (Reported) Carvedilol 12.5 Mg Tablet, 12.5 MG PO BID, (Reported) Diltiazem HCl 240 Mg Cap.er.24h, 240 MG PO DAILY, (Reported) Enalapril Maleate 20 Mg Tablet, 20 MG PO DAILY, (Reported) Fluticasone Propionate 9.9 Ml Vest.susp, 2 SPRAY NS DAILY PRN for ALLERGIES, (Reported) Loratadine 10 Mg Tablet, 10 MG PO DAILY PRN for ALLERGIES, (Reported) Naproxen Sodium 220 Mg Tablet, 220 MG PO Q8H PRN for PAIN-MILD, (Reported) Rivaroxaban 20 Mg Tablet, 20 MG PO HS, (Reported) Tiotropium Carriere 1 Inh Aerp, 1 CAP INH DAILY, (Reported) Patient Home Medication List Home Medication List Reviewed: Yes Review of Systems Constitutional: No chills, No diaphoresis EENTM: No ear discharge, No hearing loss Respiratory: No cough, No dyspnea on exertion Cardiovascular: No chest pain, No palpitations Gastrointestinal: No abdominal pain, No nausea, No vomiting Genitourinary: No discharge, No dysuria Musculoskeletal: see HPI; No back pain; joint pain (acute on chronic left shoulder pain) Skin: see HPI, change in color; No pruritus, No rash All Other Systems Reviewed Negative Unless Noted: Yes Past Jsiozrq-Krfakq-Qshnnd Hx Patient Social History Alcohol Use: Denies Use Recreational Drug Use: No Smoking Status: Former Smoker Type Used: Cigarettes Former Smoker, Quit: Nov 17, 2017 Recent Foreign Travel: No Contact w/Someone Who Travel: No Recent Infectious Disease Expo: No Recent Hopitalizations: Yes (D/Ellis from on 02/21/18) Immunizations Up To Date Tetanus Booster (TDap): Unknown PED Vaccines UTD: Yes Date of Pneumonia Vaccine: Oct 20, 2011 Date of Influenza Vaccine: Mar 20, 2012 Seasonal Allergies Seasonal Allergies: No Past Medical History Surgeries: Yes Lobectomy Respiratory: Yes (Tobaccoism) Pneumonia, COPD Cardiac: Yes (cardiac mass versus thrombus. STENTS, ABLATION) Atrial Fibrillation, Coronary Artery Disease, High Cholesterol, Hypertension Neurological: No Reproductive Disorders: No Genitourinary: No Gastrointestinal: No Musculoskeletal: Yes Arthritis Endocrine: No HEENT: No Cancer: No Psychosocial: No Integumentary: No Blood Disorders: No Family Medical History Asthma 19 MOTHER Cancer of extrahepatic bile ducts 19 FATHER Diabetes mellitus G8 SISTER FH: COPD (chronic obstructive pulmonary disease) 19 MOTHER Heart Disease, Cancer Physical Exam Vital Signs Vital Signs - First Documented 03/13/19 18:12 Temp 36.7 Pulse 87 Resp 20 B/P (MAP) 153/96 (115) Pulse Ox 98 O2 Delivery Room Air Capillary Refill : Less Than 3 Seconds Height, Weight, BMI Height: 6'4.00" Weight: 154lbs. 2.0oz. [id number]; 20.00 BMI Method:Stated General Appearance: WD/WN, mild distress HEENT: PERRL/EOMI, pharynx normal Neck: non-tender, full range of motion Cardiovascular: normal peripheral pulses, regular rate, rhythm Respiratory: no respiratory distress, no accessory muscle use Shoulder: ecchymosis, limited ROM (unable to abduct the left shoulder more than about 15.), pain (left proximal humerus. No pain to direct palpation over the glenohumeral joint or the acromioclavicular joint.), soft tissue tenderness (lateral proximal head and shaft of the humerus has about a 10 x 4 cm hematoma that is firm, nonfluctuant and ecchymotic appearing. Left), swelling Elbow/Forearm: normal inspection, non-tender, normal ROM, Bilateral Neurologic/Tendon: normal sensation, normal motor functions, normal tendon fun ctions, responds to pain Neurologic/Psychiatric: alert, normal mood/affect, oriented x 3 Skin: normal color, warm/dry Procedures/Interventions Date of ETT Placement: Nov 13, 2017 Time of ETT Placement: 0810 Progress/Results/Core Measures Results/Orders Lab Results Laboratory Tests Test 03/13/19 19:36 Range/Units White Blood Count 12.5 H 4.3-11.0 10^3/uL Red Blood Count 4.45 4.35-5.85 10^6/uL Hemoglobin 15.3 13.3-17.7 G/DL Hematocrit 44 40-54 % Mean Corpuscular Volume 100 H 80-99 FL Mean Corpuscular Hemoglobin 34 25-34 PG Mean Corpuscular Hemoglobin Concent 35 32-36 G/DL Red Cell Distribution Width 13.2 10.0-14.5 % Platelet Count 178 130-400 10^3/uL Mean Platelet Volume 9.8 7.4-10.4 FL Neutrophils (%) (Auto) 70 42-75 % Lymphocytes (%) (Auto) 18 12-44 % Monocytes (%) (Auto) 9 0-12 % Eosinophils (%) (Auto) 2 0-10 % Basophils (%) (Auto) 0 0-10 % Neutrophils # (Auto) 8.7 H 1.8-7.8 X 10^3 Lymphocytes # (Auto) 2.3 1.0-4.0 X 10^3 Monocytes # (Auto) 1.1 H 0.0-1.0 X 10^3 Eosinophils # (Auto) 0.3 0.0-0.3 10^3/uL Basophils # (Auto) 0.1 0.0-0.1 10^3/uL Prothrombin Time 21.4 H 12.2-14.7 SEC INR Comment 1.8 H 0.8-1.4 Activated Partial Thromboplast Time 40 H 24-35 SEC Sodium Level 137 135-145 MMOL/L Potassium Level 4.6 3.6-5.0 MMOL/L Chloride Level 104 98-107 MMOL/L Carbon Dioxide Level 20 L 21-32 MMOL/L Anion Gap 13 5-14 MMOL/L Blood Urea Nitrogen 11 7-18 MG/DL Creatinine 0.81 0.60-1.30 MG/DL Estimat Glomerular Filtration Rate > 60 BUN/Creatinine Ratio 14 Glucose Level 77 70-105 MG/DL Calcium Level 9.5 8.5-10.1 MG/DL Corrected Calcium 9.7 8.5-10.1 MG/DL Total Bilirubin 0.4 0.1-1.0 MG/DL Aspartate Amino Transf (AST/SGOT) 23 5-34 U/L Alanine Aminotransferase (ALT/SGPT) 20 0-55 U/L Alkaline Phosphatase 75 40-136 U/L Total Protein 7.0 6.4-8.2 GM/DL Albumin 3.7 3.2-4.5 GM/DL My Orders Orders - GITA CODY Cbc With Automated Diff (03/13/19 18:24) Comprehensive Metabolic Panel (03/13/19 18:24) Protime With Inr (03/13/19 18:24) Partial Thromboplastin Time (03/13/19 18:24) Humerus, Left, 2 Views (03/13/19 19:03) Rx-Hydrocodone/Apap 5-325 Mg (Rx-Vicodin (03/13/19 19:15) Fentanyl Injection (Sublimaze Injection (03/13/19 19:15) Hydrocodone/Apap 10/325 Tablet (Lortab 1 (03/13/19 20:30) Medications Given in ED Current Medications Medications Dose Ordered Sig/Lorna Route Start Time Stop Time Status Last Admin Dose Admin Acetaminophen/ Hydrocodone Bitart 1 ea ONCE ONCE PO 03/13/19 20:30 03/13/19 20:31 DC 1/27/20 20:45 1 EA Fentanyl Citrate 75 mcg ONCE ONCE IM 03/13/19 19:15 03/13/19 19:16 DC 03/13/19 19:41 75 MCG Vital Signs/I&O 03/13/19 18:12 Temp 36.7 Pulse 87 Resp 20 B/P (MAP) 153/96 (115) Pulse Ox 98 O2 Delivery Room Air Blood Pressure Mean: 115 Progress Progress Note : Time: 19:12 Progress Note Modest size spontaneous hematoma over the lateral proximal left humerus. We'll check some labs to look for significant anemia, platelet disorders, and inappropriate anticoagulation. We have discussed holding NSAIDs for the next 3 days as well as the risks and benefits of pulling Xarelto for the next 3 days and he would prefer to hold. Plan to get a plain film looking for tumors, pathologic, occult etc. fractures. We have provided him with an ice pack and will do some compression wrapping with an Kenyon bandage. We'll have him follow-up with Dr. Yanez. We have given him expectations for when the should get better. We've also provided him with a shot of fentanyl 75 g IM and will set him up with some hydrocodone for pain control for the next few days. There does not seem to be anything in the joint to be aspirated. Diagnostic Imaging Diagonstic Imaging: Xray Plain Films/CT/US/NM/MRI: other (left humerus) Comments NAME: NANCY TRUJILLO [facility] REC#: [id number] PT STATUS: REG ER : 1955 PHYSICIAN: GITA CODY MD ADMIT DATE: 03/13/19/ER Draft Date of Exam:03/13/19 HUMERUS, LEFT, 2 VIEWS INDICATION: Upper arm swelling and bruising. No known trauma. EXAMINATION: Left humerus 03/13/2019 FINDINGS: Two views of the humerus Chronic findings at the elbow. Degenerative findings at the acromioclavicular joint. There is irregularity at the greater tuberosity likely due to a chronic finding as well. However, the osteopenia does limit evaluation. There is soft tissue prominence overlying the proximal and mid left humerus which could be due to hematoma. Other soft tissue abnormality is not excluded. IMPRESSION: 1. Nonspecific soft tissue prominence as above. Clinical follow-up recommended and if this does not resolve, MRI could better characterize. 2. Chronic findings within the underlying osseous structures. Dictated on workstation # [id number] Dict: 03/13/192054 Trans: 03/13/192102 EDIE [id number] Interpreted by: LEONARD SIMS MD Electronically signed by: Reviewed: Reviewed by Me Departure Impression Primary Impression: Hematoma Disposition: HOME, SELF-CARE Condition: Stable Departure-Patient Inst. Decision time for Depature: 21:12 [facility]: [facility] [place] Primary Care Physician SAGE AYALA MD (Family) Primary Care Physician Patient Instructions: HEMATOMA Add. Discharge Instructions: Apply ice for 20 minutes every 4 hours for the first 2 days. Otherwise keep the arm compressed with an [place] bandage for the first 3-4 days and then as necessary for comfort. Keep the arm in a sling to reduce movement for the first week. If you're still having significant pain you may follow-up with your surgeon or primary care doctor. Expect resolution of the hematoma over the next 2-3 weeks. Hold any NSAIDs such as ibuprofen, Aleve, naproxen for the next 3 days. You may hold the Xarelto for the next 3 days. There may be a tiny, less than 1% increased risk for stroke while off of the blood thinner. For the pain you may use one or 2 tablets of hydrocodone every 6 hours as needed. Muscle rubs/creams may also be beneficial. All discharge instructions reviewed with patient and/or family. Voiced understanding. Scripts Hydrocodone Bit/Acetaminophen (Hydrocodone/Acetaminophen 5/325mg Tablet) 1 Tab Tab 1-2 EACH PO Q6H PRN for PAIN-MODERATE MDD 10 for 3 Days, #16 TAB 0 Refills Prov: GITA CODY 03/13/19 Work/School Note: Work Release Form Date Seen in the Emergency Department: Mar 13, 2019 Return to Work: Mar 14, 2019 Restrictions: Need Release from Doctor Other Restrictions Listed Below: Left arm in sling and no lifting until 03/20/19. GITA CODY Mar 13, 2019 19:12
[2019-03-13] MEDS ORDERED: RX-HYDROCODONE/APAP 5/325 MG #4 TAB PK PO PRN (19:15)
[2019-03-13] MEDS ORDERED: fentaNYL INJECTION 100 MCG/2 ML AMP IM ONE (19:15)
[2019-03-13 19:44] LABS: BASOPHILS # (AUTO) 0.1 10^3/uL (0.0-0.1); BASOPHILS % (AUTO) 0 % (0-10); EOSINOPHILS # (AUTO) 0.3 10^3/uL (0.0-0.3); EOSINOPHILS % (AUTO) 2 % (0-10); HEMATOCRIT 44 % (40-54); HEMOGLOBIN 15.3 G/DL (13.3-17.7); LYMPHOCYTES # (AUTO) 2.3 X 10^3 (1.0-4.0); LYMPHOCYTES % (AUTO) 18 % (12-44); MEAN CORPUSCULAR HEMOGLOBIN 34 PG (25-34); MEAN CORPUSCULAR HGB CONC 35 G/DL (32-36); MEAN CORPUSCULAR VOLUME 100 FL (80-99); MEAN PLATELET VOLUME 9.8 FL (7.4-10.4); MONOCYTES # (AUTO) 1.1 X 10^3 (0.0-1.0); MONOCYTES % (AUTO) 9 % (0-12); NEUTROPHILS # (AUTO) 8.7 X 10^3 (1.8-7.8); NEUTROPHILS % (AUTO) 70 % (42-75); PLATELET COUNT 178 10^3/uL (130-400); RED CELL DISTRIBUTION WIDTH 13.2 % (10.0-14.5); WHITE BLOOD COUNT 12.5 10^3/uL (4.3-11.0)
[2019-03-13 19:54] LABS: INR 1.8 (0.8-1.4); PROTHROMBIN TIME PATIENT 21.4 SEC (12.2-14.7)
[2019-03-13 20:04] LABS: ALANINE AMINOTRANSFERASE 20 U/L (0-55); ALBUMIN 3.7 GM/DL (3.2-4.5); ALKALINE PHOSPHATASE 75 U/L (40-136); BILIRUBIN,TOTAL 0.4 MG/DL (0.1-1.0); BUN/CREATININE RATIO 14; CALCIUM 9.5 MG/DL (8.5-10.1); CARBON DIOXIDE 20 MMOL/L (21-32); CHLORIDE 104 MMOL/L (98-107); CREATININE SERUM 0.81 MG/DL (0.60-1.30); GFR ESTIMATED > 60; GLUCOSE 77 MG/DL (70-105); POTASSIUM 4.6 MMOL/L (3.6-5.0); SODIUM 137 MMOL/L (135-145)
[2019-03-13] MEDS ORDERED: HYDROcodone/APAP 10 MG/325 MG (LORTAB) TAB PO ONE (20:30)
--- NOTE | 2019-03-13 21:03 | Diagnostic Imaging Report ---
INDICATION: Upper arm swelling and bruising. No known trauma. EXAMINATION: Left humerus 03/13/2019 FINDINGS: Two views of the humerus Chronic findings at the elbow. Degenerative findings at the acromioclavicular joint. There is irregularity at the greater tuberosity likely due to a chronic finding as well. However, the osteopenia does limit evaluation. There is soft tissue prominence overlying the proximal and mid left humerus which could be due to hematoma. Other soft tissue abnormality is not excluded. IMPRESSION: 1. Nonspecific soft tissue prominence as above. Clinical follow-up recommended and if this does not resolve, MRI could better characterize. 2. Chronic findings within the underlying osseous structures. Dictated by: Dictated on workstation # [id number]
[2019-03-13] MEDS ORDERED: ACHD5005 PO (21:15)
[2019-03-13 21:22] VITALS: BP 127/96
== END 2019-03-13 21:28 | disposition home or self-care (01) ==
LOC: EDUNIT# 17:13 → ER 17:14
DX: S40.012A Contusion of left shoulder, initial encounter (principal); I48.91 Unspecified atrial fibrillation; J44.9 Chronic obstructive pulmonary disease, unspecified; I25.10 Atherosclerotic heart disease of native coronary artery without angina pectoris; I10 Essential (primary) hypertension; E78.00 Pure hypercholesterolemia, unspecified; Z79.01 Long term (current) use of anticoagulants; Z79.51 Long term (current) use of inhaled steroids; Z87.891 Personal history of nicotine dependence; X58.XXXA Exposure to other specified factors, initial encounter
CPT/HCPCS: 36415; 73060; 80053; 85025; 85610; 85730

== ENCOUNTER → 2019-11-01 | Outpatient (CLI) | payer MEDICARE ==
[~2019-11-01] VITALS: Ht 183 cm; Wt 74.0 kg
[~2019-11-01] MED LIST changes: +ACHD5005 PO; -ENAL20TA PO; +ENAL20TA16 PO; +REGADENOSON 0.4 MG/5 ML SYR (LEXISCAN) IV ONE; +meTOprolol 5 MG/5 ML (LOPRESSOR) VIAL IV ONE; +meTOprolol 5 MG/5 ML (LOPRESSOR) VIAL ONE
[2019-11-01] MEDS: CATHETER FLUSH 10 ML SYR IV PRN ×2 (11:08→12:23)
[2019-11-01 12:19] VITALS: BP 143/96
--- NOTE | 2019-11-01 13:43 | Cardiology Stress Test Report ---
Stress Test Report Date of Procedure/Referring: Date of Procedure: Nov 01, 2019 PCP Aidan Douglass MD Admitting Physician [place] [place] Indications: Hypertension, atrial fibrillation Baseline Heart Rate: 120 Baseline Blood Pressure: Blood Pressure Systolic: 143 Blood Pressure Diastolic: 96 Baseline Vitals Vital Signs Date Time Temp Pulse Resp B/P (MAP) Pulse Ox O2 Delivery O2 Flow Rate FiO2 11/01/19 12:19 121 16 143/96 (112) 98 Room Air Baseline EKG: Baseline EKG: atrial fibrillation with rapid ventricular response Summary After explaining the procedure to the patient, he signed a consent and then brought to the stress nuclear laboratory. Patient received 0.4 mg Lexiscan for stress test, ECG, heart rate and blood pressure were monitored continuously. Resting and stress dose of radio tracer were injected, imaging was acquired and reviewed in short axis, horizontal long axis and vertical long axis views. TID: 1.11 SSS: 6 SDS: 0 EF: 40 1. Patient tolerated Lexiscan well 2. Baseline atrial fibrillation with rapid ventricular response persisted during test 3. Decrease uptake involving the mid to apical inferior wall with no reversibility probably due to diaphragmatic attenuation 4. Diffuse left ventricular hypokinesia, EF 40 percent, gated images are unreliable due to underlying atrial fibrillation AIDAN DOUGLASS MD Nov 01, 2019 1:43 pm
== END ==
LOC: CARD 10:46
PROVIDERS: ATTEND Internal Medicine Cardiovascular Disease
DX: I11.9 Hypertensive heart disease without heart failure (principal); I48.0 Paroxysmal atrial fibrillation; I51.3 Intracardiac thrombosis, not elsewhere classified; E78.2 Mixed hyperlipidemia
CPT/HCPCS: 78452; 93017; 93306; A9502

== ENCOUNTER 2020-08-16 14:10 | Emergency (ER) | payer MEDICARE ==
[~2020-08-16 14:10] MED LIST changes: +AMLO-251 PO; -AMLO10TA7 PO; -REGADENOSON 0.4 MG/5 ML SYR (LEXISCAN) IV ONE; -meTOprolol 5 MG/5 ML (LOPRESSOR) VIAL IV ONE; -meTOprolol 5 MG/5 ML (LOPRESSOR) VIAL ONE
== END 2020-08-16 14:30 | disposition left against medical advice (07) ==
LOC: EDUNIT# 14:10 → ER 14:11
DX: R06.02 Shortness of breath (principal)

== ENCOUNTER 2020-12-07 14:14 | Inpatient (IN) | payer MEDICARE ==
[~2020-12-07] VITALS: Ht 182.9 cm; Wt 74.2 kg
[2020-12-07 14:42] LABS: ABG BASE EXCESS 17.5 MMOL/L (-2.5-2.5); ABG OXYGEN SATURATION 98 % (94-100); ABG PO2 116 MMHG (79-93)
--- NOTE | 2020-12-07 14:42 | ED General ---
General Chief Complaint: Neuro-Stroke Like Symptoms Stated Complaint: CONFUSION LEFT SIDE WEAKNESS Nursing Triage Note: night before bed was last known well time. patient woke on morning of the and was unable to hold his coffee and control his left arm. Patient feels as though he has had a change in speech. patient ambulated to room 8 with assist of his walker. Source of Information: Patient, Family Exam Limitations: No Limitations (JANN KAN APRN) History of Present Illness Date Seen by Provider: Dec 07, 2020 Time Seen by Provider: 14:38 Initial Comments to ER by private vehicle accompanied by with reports of altered mental status. According to he seemed to be generally weak beginning yesterday. She noticed that he turned off his oxygen supply during the night which he is chronically on at 6 L/min for COPD. She had to help him get dressed this morning which is unusual for him. During the middle of the night he got his pillow and moved his head to the foot of the bed also unusual behavior for him. No fevers. She states that his breathing seems a bit more labored than usual. 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 He has atrial fibrillation managed on diltiazem and Xarelto. He does have a BiPAP at home but does not wear it because he does not like the way it feels. Timing/Duration: 1-2 Days Severity: Moderate Associated Systoms: Cough (Chronic and unchanged), Weakness (Global weakness) (JANN KAN APRN) Allergies and Home Medications Allergies Coded Allergies: No Known Drug Allergies (Unverified , 03/17/12) Patient Home Medication List Home Medication List Reviewed: Yes (JANN KAN APRN) Albuterol Sulfate (Ventolin Hfa) 18 Gm Hfa.aer.ad, 2 PUFF INH Q6H PRN for SHORTNESS OF BREATH, (Reported) Entered as Reported by: IVELISSE BALLARD on 12/09/20 1158 Last Action: Reviewed Atorvastatin Calcium (Atorvastatin Calcium) 10 Mg Tablet, 10 MG PO HS, (Reported) Entered as Reported by: NIRAV GAFFNEY on 11/01/17 1057 Last Action: Reviewed Budesonide/Glycopyr/Formoterol (Breztri Aerosphere Inhaler) 10.7 Gm Hfa.aer.ad, 2 PUFF INH BID, (Reported) Entered as Reported by: IVELISSE BALLARD on 12/09/201157 Last Action: Reviewed Cetirizine HCl (Cetirizine HCl) 10 Mg Tablet, 10 MG PO DAILY, (Reported) Entered as Reported by: IVELISSE BALLARD on 12/09/201157 Last Action: Reviewed Diltiazem HCl (Diltiazem ER) 240 Mg Capsule.er, 240 MG PO DAILY, (Reported) Entered as Reported by: IVELISSE BALLARD on 12/09/201157 Last Action: Reviewed Losartan Potassium (Losartan Potassium) 100 Mg Tablet, 100 MG PO DAILY, (Reported) Entered as Reported by: IVELISSE BALLARD on 12/09/201157 Last Action: Reviewed Metoprolol Succinate (Metoprolol Succinate) 100 Mg Tab.er.24h, 100 MG PO DAILY, (Reported) Entered as Reported by: IVELISSE BALLARD on 12/09/201157 Last Action: Reviewed Naproxen Sodium (Aleve) 220 Mg Tablet, 220-440 MG PO BID PRN for PAIN-MILD (1- 4), (Reported) Entered as Reported by: IVELISSE BALLARD on 12/09/201157 Last Action: Reviewed Potassium Chloride (Potassium Chloride) 20 Meq Tab.er.prt, 20 MEQ PO DAILY, (Reported) Entered as Reported by: IVELISSE BALLARD on 12/09/201157 Last Action: Reviewed Rivaroxaban (Xarelto) 20 Mg Tablet, 20 MG PO DAILY, (Reported) Entered as Reported by: IVELISSE BALLARD on 12/09/201157 Last Action: Reviewed Discontinued Medications Albuterol Sulfate (Proair Hfa) 1 Puff Puff, 2 PUFF INH Q4H PRN for SHORTNESS OF BREATH, (Reported) Discontinued Reason: No Longer Taking Entered as Reported by: NIRAV GAFFNEY on 11/01/171056 Last Action: Discontinued Budesonide/Formoterol Fumarate (Symbicort 160-4.5 Mcg Inhaler) 10.2 Gm Hfa.aer.ad, 2 PUFF INH BID, (Reported) Discontinued Reason: No Longer Taking Entered as Reported by: NIRAV GAFFNEY on 11/01/171056 Last Action: Discontinued Carvedilol (Carvedilol) 12.5 Mg Tablet, 12.5 MG PO BID, (Reported) Discontinued Reason: No Longer Taking Entered as Reported by: NIRAV GAFFNEY on 11/01/171056 Last Action: Discontinued Diltiazem HCl (Diltiazem 24Hr ER) 240 Mg Cap.er.24h, 240 MG PO DAILY, (Reported) Discontinued Reason: No Longer Taking Entered as Reported by: NIRAV GAFFNEY on 11/01/171056 Last Action: Discontinued Enalapril Maleate (Enalapril Maleate) 20 Mg Tablet, 20 MG PO DAILY, (Reported) Discontinued Reason: No Longer Taking Entered as Reported by: NIRAV GAFFNEY on 11/01/171056 Last Action: Discontinued Fluticasone Propionate (Flonase Allergy Relief) 9.9 Ml [place].susp, 2 SPRAY NS DAILY PRN for ALLERGIES, (Reported) Discontinued Reason: No Longer Taking Entered as Reported by: NIRAV GAFFNEY on 11/01/171107 Last Action: Discontinued Hydrocodone Bit/Acetaminophen (Lortab 5 Mg Tablet) 1 Tab Tab, 1-2 EACH PO Q6H PRN for PAIN-MODERATE Discontinued Reason: No Longer Taking Prescribed by: GITA CODY on 03/13/192114 Last Action: Discontinued Loratadine (Claritin) 10 Mg Tablet, 10 MG PO DAILY PRN for ALLERGIES, (Reported) Discontinued Reason: No Longer Taking Entered as Reported by: NIRAV GAFFNEY on 11/01/171107 Last Action: Discontinued Naproxen Sodium (Aleve) 220 Mg Tablet, 220 MG PO Q8H PRN for PAIN-MILD, (Reported) Discontinued Reason: No Longer Taking Entered as Reported by: NIRAV GAFFNEY on 11/01/171107 Last Action: Discontinued Rivaroxaban (Xarelto Tablet) 20 Mg Tablet, 20 MG PO HS, (Reported) Discontinued Reason: No Longer Taking Entered as Reported by: NIRAV GAFFNEY on 11/01/171056 Last Action: Discontinued Tiotropium [place] (Spiriva) 1 Inh Aerp, 1 CAP INH DAILY, (Reported) Discontinued Reason: No Longer Taking Entered as Reported by: NIRAV GAFFNEY on 11/01/171056 Last Action: Discontinued Review of Systems Review of Systems Constitutional: see HPI, malaise, weakness EENTM: see HPI Respiratory: see HPI, cough Cardiovascular: no symptoms reported Genitourinary: no symptoms reported Musculoskeletal: no symptoms reported Skin: no symptoms reported Psychiatric/Neurological: No Symptoms Reported Hematologic/Lymphatic: No Symptoms Reported Immunological/Allergic: no symptoms reported (JANN KAN APRN) Past Uktriqm-Bvyjfr-Kvqvsi Hx Immunizations Up To Date Tetanus Booster (TDap): Unknown PED Vaccines UTD: Yes (JANN KAN APRN) Seasonal Allergies Seasonal Allergies: No (JANN KAN APRN) Past Medical History Surgeries: Yes Lobectomy Respiratory: Yes (Tobaccoism) Pneumonia, COPD Cardiac: Yes (cardiac mass versus thrombus. STENTS, ABLATION) Atrial Fibrillation, Coronary Artery Disease, High Cholesterol, Hypertension Neurological: No Reproductive Disorders: No Genitourinary: No Gastrointestinal: No Musculoskeletal: Yes Arthritis Endocrine: No HEENT: No Cancer: No Psychosocial: No Integumentary: No Blood Disorders: No (JANN KAN APRN) Family Medical History Asthma 19 MOTHER Cancer of extrahepatic bile ducts 19 FATHER Diabetes mellitus G8 SISTER FH: COPD (chronic obstructive pulmonary disease) 19 MOTHER Heart Disease, Cancer (JANN KAN APRN) Physical Exam Vital Signs Vital Signs - First Documented (INGA BURGER MD) Vital Signs Capillary Refill : Less Than 3 Seconds (JANN KAN APRN) Height, Weight, BMI Height: 6'4.00" Weight: 154lbs. 2.0oz. [id number]; 22.00 BMI Method:Stated General Appearance: No Apparent Distress, WD/WN, Chronically ill, Thin, Other (SPO2 is 100% on his baseline 6 L. Lungs are diminished and without wheezing. Heart rate is controlled at ninety-nine atrial fibrillation with a blood pressure of 130 over 90s.) Eyes: Bilateral Eye Normal Inspection, Bilateral Eye PERRL, Bilateral Eye EOMI HEENT: PERRL/EOMI Neck: Full Range of Motion, Normal Inspection Respiratory: No Accessory Muscle Use, No Respiratory Distress Cardiovascular: Normal Peripheral Pulses, Irregularly Irregular Gastrointestinal: Normal Bowel Sounds, Non Tender, Soft Extremity: Normal Capillary Refill, Normal Inspection Neurologic/Psychiatric: Alert, Other Skin: Normal Color, Warm/Dry (JANN KAN APRN) Procedures/Interventions Date of ETT Placement: Nov 13, 2017 Time of ETT Placement: 0810 (JANN KAN APRN) Progress/Results/Core Measures Suspected Sepsis SIRS Temperature: Pulse: 98 Respiratory Rate: 20 Laboratory Tests 12/07/20 15:06: White Blood Count 7.9 Blood Pressure 129 /96 Mean: 107 Laboratory Tests 12/07/20 15:06: Creatinine 0.71, Platelet Count 87L, Total Bilirubin 0.9 (JANN KAN APRN) Results/Orders Lab Results Laboratory Tests Test 12/07/20 14:28 12/07/20 14:32 12/07/20 15:00 12/07/20 15:06 Range/Units Glucometer 107 70-110 MG/DL Blood Gas Puncture Site RT RAD Blood Gas Patient Temperature 36.4 Arterial Blood pH 7.29 *L 7.37-7.43 Arterial Blood Partial Pressure CO2 96 *H 35-45 MMHG Arterial Blood Partial Pressure O2 116 H 79-93 MMHG Arterial Blood HCO3 45 *H 23-27 MMOL/L Arterial Blood Total CO2 47.9 *H 21.0-31.0 MMOL/L Arterial Blood Oxygen Saturation 98 94-100 % Arterial Blood Base Excess 17.5 H -2.5-2.5 MMOL/L Harris Test YES-POS Blood Gas Ventilator Setting NO Blood Gas Inspired Oxygen 6 L SARS-CoV-2 RNA (RT-PCR) Not Detected Not Detecte White Blood Count 7.9 4.3-11.0 10^3/uL Red Blood Count 4.21 L 4.30-5.52 10^6/uL Hemoglobin 14.8 13.3-17.7 g/dL Hematocrit 47 40-54 % Mean Corpuscular Volume 112 H 80-99 fL Mean Corpuscular Hemoglobin 35 H 25-34 pg Mean Corpuscular Hemoglobin Concent 31 L 32-36 g/dL Red Cell Distribution Width 12.3 10.0-14.5 % Platelet Count 87 L 130-400 10^3/uL Mean Platelet Volume 11.7 9.0-12.2 fL Immature Granulocyte % (Auto) 1 % Neutrophils (%) (Auto) 74 42-75 % Lymphocytes (%) (Auto) 15 12-44 % Monocytes (%) (Auto) 8 0-12 % Eosinophils (%) (Auto) 2 0-10 % Basophils (%) (Auto) 1 0-10 % Neutrophils # (Auto) 5.9 1.8-7.8 10^3/uL Lymphocytes # (Auto) 1.2 1.0-4.0 10^3/uL Monocytes # (Auto) 0.7 0.0-1.0 10^3/uL Eosinophils # (Auto) 0.1 0.0-0.3 10^3/uL Basophils # (Auto) 0.0 0.0-0.1 10^3/uL Immature Granulocyte # (Auto) 0.1 0.0-0.1 10^3/uL Percent Immature Platelet Fraction 13.7 H 0.0-7.6 % Sodium Level 142 135-145 MMOL/L Potassium Level 4.6 3.6-5.0 MMOL/L Chloride Level 88 L 98-107 MMOL/L Carbon Dioxide Level 43 H 21-32 MMOL/L Anion Gap 11 5-14 MMOL/L Blood Urea Nitrogen 9 7-18 MG/DL Creatinine 0.71 0.60-1.30 MG/DL Estimat Glomerular Filtration Rate 111 BUN/Creatinine Ratio 13 Glucose Level 121 H 70-105 MG/DL Calcium Level 10.2 H 8.5-10.1 MG/DL Corrected Calcium 10.4 H 8.5-10.1 MG/DL Total Bilirubin 0.9 0.1-1.0 MG/DL Aspartate Amino Transf (AST/SGOT) 16 5-34 U/L Alanine Aminotransferase (ALT/SGPT) 16 0-55 U/L Alkaline Phosphatase 85 40-136 U/L Total Protein 7.2 6.4-8.2 GM/DL Albumin 3.7 3.2-4.5 GM/DL Serum Alcohol < 10 <10 MG/DL (INGA BURGER MD) Micro Results Microbiology 12/07/20 Blood Culture - Preliminary, Resulted No growth (INGA BURGER MD) Vital Signs/I&O 12/07/20 12/07/20 12/07/20 12/07/20 14:23 14:23 14:23 15:08 Temp 36.5 Pulse 98 21 Resp 20 71 B/P (MAP) 129/96 (107) Pulse Ox 100 97 O2 Delivery Nasal Cannula Room Air Nasal Cannula O2 Flow Rate 6.00 6.00 6.00 50.00 12/07/20 15:30 Pulse 31 Resp 71 Pulse Ox 97 O2 Flow Rate 30.00 (INGA BURGER MD) Vital Signs/I&O Capillary Refill : Less Than 3 Seconds (JANN KAN APRN) Blood Pressure Mean: 107 Point of Care Testing Finger Stick Blood Glucose: 107 (JANN KAN APRN) Departure Communication (Admissions) NAME: NANCY TRUJILLO [facility] REC#: [id number] PT STATUS: REG ER : 1955 PHYSICIAN: JANN KAN APRN ADMIT DATE: 12/07/20/ER Draft Date of Exam:12/07/20 CT HEAD WO-R/O STROKE EXAMINATION: CT head without contrast. TECHNIQUE: Multiple contiguous axial images were obtained through the brain without the use of intravenous contrast. All CT scans use one or more of the following dose optimizing techniques: automated exposure control, MA and/or KvP adjustment based on patient size and exam type or iterative reconstruction. HISTORY: Neuro deficit. COMPARISON: None available. FINDINGS: The ventricles and sulci are normal. No abnormal attenuation of brain parenchyma is present. No acute intracranial hemorrhage or abnormal extra-axial fluid collections are present. Calcification of the intracranial ICAs. No hyperdense vessel. The calvarium is intact. There is a moderate right mastoid effusion. The visualized paranasal sinuses are clear. The orbits are normal. IMPRESSION: 1. No acute intracranial abnormality. 2. Moderate right mastoid effusion. Dictated on workstation # [id number] Dict: 12/07/20 1529 Trans: 12/07/20 1533 [facility] [id number] Interpreted by: PEYTON TOVAR DO Electronically signed by: Family Conversation NAME: NANCY TRUJILLO [facility] REC#: [id number] PT STATUS: REG ER : 1955 PHYSICIAN: JANN KAN APRN ADMIT DATE: 12/07/20/ER Draft Date of Exam:12/07/20 CHEST 1 VIEW, AP/PA ONLY EXAMINATION: Chest 1 view. HISTORY: COPD. COMPARISON: 11/13/2017. FINDINGS: Heart size and pulmonary vasculature are normal. There are patchy interstitial opacities seen throughout both lungs. Trace right pleural effusion or pleural thickening. No pneumothorax. The osseous structures are intact. IMPRESSION: Coarse interstitial opacities throughout both lungs which may represent a combination of background lung disease and superimposed edema or infection in the appropriate clinical setting. Dictated on workstation # [id number] Dict: 12/07/20 1532 Trans: 12/07/20 1534 [facility] [id number] Interpreted by: PEYTON TOVAR DO Electronically signed by: 1515-started on BiPAP at this time settings are 18/8 50% FiO2. 1545-Bipap still down to 18/8 but FiO2 down to 30% (JANN KAN APRN) Impression Primary Impression: Respiratory acidosis Additional Impressions: Hypercapnia COPD exacerbation AMS (altered mental status) Disposition: ADMITTED INPATIENT Condition: Stable Admissions Decision to Admit Reason: Admit from ER (General) Decision to Admit/Date: Dec 07, 2020 Time/Decision to Admit Time: 14:56 (JANN KAN APRN) Departure-Patient Inst. Referrals: SAGE AYALA MD (PCP/Family) Primary Care Physician ATTENDING PHYSICIAN NOTE: I was physically present as attending physician in the emergency department during the care of this patient, but I was not directly involved in the decision making or delivery of care for this patient. (INGA BURGER MD) JANN KAN APRN Dec 07, 2020 14:42 INGA BURGER MD Dec 12, 2020 12:21
[2020-12-07 14:43] LABS: ABG PH 7.29 (7.37-7.43)
[2020-12-07 14:44] LABS: ABG PCO2 96 MMHG (35-45); ABG TCO2 47.9 MMOL/L (21.0-31.0); ALLENS TEST YES-POS; INSPIRED O2 6 L; PATIENT TEMP 36.4; VENTILATOR NO
[2020-12-07] MEDS ORDERED: methylPREDNISolone 125 MG (Solu-MEDROL) VIAL ONE (14:53)
[2020-12-07] MEDS ORDERED: RT-ALBUTEROL/IPRATROPIUM 3 ML (DUONEB) VIAL INH ONE (15:00)
[2020-12-07] MEDS ORDERED: methylPREDNISolone 125 MG (Solu-MEDROL) VIAL IVP ONE (15:00)
[2020-12-07] MEDS ORDERED: RT-ALBUTEROL SULF 2.5 MG/3 ML PRE-MIX VIAL INH ONE ×2 (15:00→15:30)
[2020-12-07] MEDS ORDERED: RT-ALBUTEROL SULF 2.5 MG/3 ML PRE-MIX VIAL ONE ×2 (15:05→15:29)
[2020-12-07 15:08] VITALS: BP 114/88
[2020-12-07 15:18] LABS: ALBUMIN 3.7 GM/DL (3.2-4.5); CHLORIDE 88 MMOL/L (98-107); POTASSIUM 4.6 MMOL/L (3.6-5.0); SODIUM 142 MMOL/L (135-145)
[2020-12-07 15:19] LABS: BASOPHILS % (AUTO) 1 % (0-10); EOSINOPHILS # (AUTO) 0.1 10^3/uL (0.0-0.3); EOSINOPHILS % (AUTO) 2 % (0-10); HEMATOCRIT 47 % (40-54); HEMOGLOBIN 14.8 g/dL (13.3-17.7); LYMPHOCYTES # (AUTO) 1.2 10^3/uL (1.0-4.0); LYMPHOCYTES % (AUTO) 15 % (12-44); MEAN CORPUSCULAR HEMOGLOBIN 35 pg (25-34); MEAN CORPUSCULAR HGB CONC 31 g/dL (32-36); MEAN CORPUSCULAR VOLUME 112 fL (80-99); MEAN PLATELET VOLUME 11.7 fL (9.0-12.2); MONOCYTES # (AUTO) 0.7 10^3/uL (0.0-1.0); MONOCYTES % (AUTO) 8 % (0-12); NEUTROPHILS # (AUTO) 5.9 10^3/uL (1.8-7.8); NEUTROPHILS % (AUTO) 74 % (42-75); PLATELET COUNT 87 10^3/uL (130-400); WHITE BLOOD COUNT 7.9 10^3/uL (4.3-11.0)
[2020-12-07 15:20] LABS: CALCIUM 10.2 MG/DL (8.5-10.1)
[2020-12-07 15:21] LABS: GLUCOSE 121 MG/DL (70-105); TOTAL PROTEIN 7.2 GM/DL (6.4-8.2)
[2020-12-07 15:22] LABS: CARBON DIOXIDE 43 MMOL/L (21-32)
[2020-12-07 15:23] LABS: BILIRUBIN,TOTAL 0.9 MG/DL (0.1-1.0)
[2020-12-07 15:24] LABS: ALKALINE PHOSPHATASE 85 U/L (40-136)
[2020-12-07 15:25] LABS: CREATININE SERUM 0.71 MG/DL (0.60-1.30); GFR ESTIMATED 111
[2020-12-07 15:26] LABS: BUN/CREATININE RATIO 13
[2020-12-07 15:27] LABS: ALANINE AMINOTRANSFERASE 16 U/L (0-55)
--- NOTE | 2020-12-07 15:34 | Diagnostic Imaging Report ---
EXAMINATION: CT head without contrast. TECHNIQUE: Multiple contiguous axial images were obtained through the brain without the use of intravenous contrast. All CT scans use one or more of the following dose optimizing techniques: automated exposure control, MA and/or KvP adjustment based on patient size and exam type or iterative reconstruction. HISTORY: Neuro deficit. COMPARISON: None available. FINDINGS: The ventricles and sulci are normal. No abnormal attenuation of brain parenchyma is present. No acute intracranial hemorrhage or abnormal extra-axial fluid collections are present. Calcification of the intracranial ICAs. No hyperdense vessel. The calvarium is intact. There is a moderate right mastoid effusion. The visualized paranasal sinuses are clear. The orbits are normal. IMPRESSION: 1. No acute intracranial abnormality. 2. Moderate right mastoid effusion. Dictated by: Dictated on workstation # [id number]
--- NOTE | 2020-12-07 15:35 | Diagnostic Imaging Report ---
EXAMINATION: Chest 1 view. HISTORY: COPD. COMPARISON: 11/13/2017. FINDINGS: Heart size and pulmonary vasculature are normal. There are patchy interstitial opacities seen throughout both lungs. Trace right pleural effusion or pleural thickening. No pneumothorax. The osseous structures are intact. IMPRESSION: Coarse interstitial opacities throughout both lungs which may represent a combination of background lung disease and superimposed edema or infection in the appropriate clinical setting. Dictated by: Dictated on workstation # [id number]
[2020-12-07 16:14] LABS: BILIRUBIN,URINE NEGATIVE (NEGATIVE); CLARITY,URINE CLEAR; COLOR,URINE YELLOW; GLUCOSE, URINE (UA) NEGATIVE (NEGATIVE); KETONES,URINE NEGATIVE (NEGATIVE); LEUKOCYTE ESTERASE ,URINE NEGATIVE (NEGATIVE); NITRITE,URINE NEGATIVE (NEGATIVE); PROTEIN,URINE 1+ (NEGATIVE)
[2020-12-07 16:21] LABS: BACTERIA,URINE TRACE /HPF; RBC,URINE RARE /HPF; WBC,URINE RARE /HPF
--- NOTE | 2020-12-07 16:52 | Tele-ICU Consult ---
History of Present Illness History of Present Illness Date Seen by Provider: Dec 07, 2020 Time Seen by Provider: 16:30 Date of Admission This virtual visit was conducted using real time audio/video. Thank you for asking us to see this patient for respiratory insufficiency, hypercapnia, acidosis and distress. PMH: CAD, COPD/6 LPM home O2, HL, Afib, HTN. SH: smoking history Y FH: Non-contributory ROS: limited by patient's clinical condition, but as in HPI PE: VSS HR irreg., BP RR O2 sat 98% on BiPAP 18/8 30%. HEENT: No obvious masses, adenopathy or JVD. Chest: clear to auscultation. CV: Irreg. S1 S2 No murmur or added sounds. Abd: Non-tender. Bowel sounds Y. : Unremarkable. Meier N. NURSE ADVISOR/psychiatric: Alert and oriented, grossly intact. No obvious focal findings. Extremities: No edema. Capillary refill < 3 seconds. Skin: unremarkable. Results: Elevated PCO2 96. CXR hyperinflated. A/P: Respiratory insufficiency/distress: Cont Medrol, Duonebs, BiPAP. Available chart/ vitals / labs / images reviewed. Video assessment done using teleICU camera, rest of exam as per RN. Monitor for increasing oxygenation needs and/or need for intubation.. Critical Care: critically ill patient. Discussed with CONSTANTIN Claudio. Asked RN to reach out to eICU if any questions or concerns later. Time spent with patient/coordination of care with other health professionals (mins): 22 Allergies and Home Medications Allergies Coded Allergies: No Known Drug Allergies (Unverified , 03/17/12) Home Medications Albuterol Sulfate 1 Puff Puff, 2 PUFF INH Q4H PRN for SHORTNESS OF BREATH, (Reported) Atorvastatin Calcium 10 Mg Tablet, 10 MG PO HS, (Reported) Budesonide/Formoterol Fumarate 10.2 Gm Hfa.aer.ad, 2 PUFF INH BID, (Reported) Carvedilol 12.5 Mg Tablet, 12.5 MG PO BID, (Reported) Diltiazem HCl 240 Mg Cap.er.24h, 240 MG PO DAILY, (Reported) Enalapril Maleate 20 Mg Tablet, 20 MG PO DAILY, (Reported) Fluticasone Propionate 9.9 Ml [place].susp, 2 SPRAY NS DAILY PRN for ALLERGIES, (Reported) Hydrocodone Bit/Acetaminophen 1 Tab Tab, 1-2 EACH PO Q6H PRN for PAIN-MODERATE Prescribed by: GITA CODY on 03/13/192114 Loratadine 10 Mg Tablet, 10 MG PO DAILY PRN for ALLERGIES, (Reported) Naproxen Sodium 220 Mg Tablet, 220 MG PO Q8H PRN for PAIN-MILD, (Reported) Rivaroxaban 20 Mg Tablet, 20 MG PO HS, (Reported) Tiotropium [place] 1 Inh Aerp, 1 CAP INH DAILY, (Reported) Past Medical/Social/Family Hx Patient Social History Tobacco Use?: Yes Tobacco type used: Cigarettes Smoking Status: Current Everyday Smoker Substance use?: No Alcohol Use?: Yes Alcohol type: Beer Alcohol Frequency: Couple times a week Immunizations Up To Date Influenza Vaccine Up-to-Date: No; Not Current First/Initial COVID19 Vaccinat: Mar 2020 Second COVID19 Vaccination Raphael: April 2020 Tetanus Booster (TDap): Unknown Hepatitis A: No Hepatitis B: No TB Skin Test: None Date of Pneumonia Vaccine: Oct 20, 2011 Current Status Advance Directives: No Communicates: Verbally Primary Language: [place] Preferred Spoken Language: [place] Is interpretation needed?: No Implanted or Applied Medical D: Stents Review of Systems Constitutional: see HPI EENTM: see HPI, no symptoms reported Respiratory: see HPI Cardiovascular: see HPI Genitourinary: see HPI Musculoskeletal: see HPI Skin: see HPI Psychiatric/Neurological: See HPI Sepsis Event Evaluation Height, Weight, BMI Height: 6'4.00" Weight: 154lbs. 2.0oz. 69.665751ex; 22.00 BMI Method:Stated Exam Exam Patient acknowledged, consented, and participated in this virtual visit which was conducted using real time audio/video Vital Signs Date Time Temp Pulse Resp B/P (MAP) Pulse Ox O2 Delivery O2 Flow Rate FiO2 12/07/20 15:30 31 71 97 30.00 12/07/20 15:08 21 71 97 50.00 12/07/20 14:23 Nasal Cannula 6.00 12/07/20 14:23 100 Room Air 6.00 12/07/20 14:23 36.5 98 20 129/96 (107) Nasal Cannula 6.00 Height & Weight Height: 6'4.00" Weight: 154lbs. 2.0oz. 69.282747ei; 22.00 BMI Method:Stated General Appearance: No Apparent Distress, WD/WN, Chronically ill, Thin, Other (SPO2 is 100% on his baseline 6 L. Lungs are diminished and without wheezing. Heart rate is controlled at ninety-nine atrial fibrillation with a blood pressure of 130 over 90s.) HEENT: PERRL/EOMI Neck: Full Range of Motion, Normal Inspection Respiratory: No Accessory Muscle Use, No Respiratory Distress Cardiovascular: Normal Peripheral Pulses, Irregularly Irregular Capillary Refill: Less Than 3 Seconds Peripheral Pulses: 1+ Dorsalis Pedis (R), 1+ Left Dors-Pedis (L) Extremity: Normal Capillary Refill, Normal Inspection Neurologic/Psychiatric: Alert, Other Skin: Normal Color, Warm/Dry Results Lab Laboratory Tests 12/07/20 15:06 Assessment/Plan Assessment/Plan See free text. Critical Care: Critically Ill Patient ANTON DILL MD Dec 07, 2020 16:52
[2020-12-07 17:00] VITALS: BP 146/96
[2020-12-07] MEDS ORDERED: CATHETER FLUSH 10 ML SYR IV PRN (17:00)
[2020-12-07] MEDS ORDERED: RT-ALBUTEROL/IPRATROPIUM 3 ML (DUONEB) VIAL INH PRN (17:30)
[2020-12-07 17:44] LABS: ABG BASE EXCESS 17.8 MMOL/L (-2.5-2.5); ABG OXYGEN SATURATION 94 % (94-100); ABG PCO2 66 MMHG (35-45); ABG PH 7.43 (7.37-7.43); ABG PO2 57 MMHG (79-93)
[2020-12-07 17:48] LABS: ABG TCO2 45.7 MMOL/L (21.0-31.0); INSPIRED O2 30%; PATIENT TEMP 35.6; VENTILATOR NO
[2020-12-07 18:02] LABS: FIBRIN DEGRADATION PRODUCTS 0.98 UG/ML (0.00-0.49); INR 2.7 (0.8-1.4)
[2020-12-07] MEDS: RT-ALBUTEROL/IPRATROPIUM 3 ML (DUONEB) VIAL INH SCH (22:46)
[2020-12-08] MEDS: CATHETER FLUSH 10 ML SYR IV SCH ×4 (00:22→20:21)
[2020-12-08] MEDS: methylPREDNISolone 40 MG/ML (Solu-MEDROL) VIAL IV SCH ×2 (00:23→08:06)
[2020-12-08] MEDS: CEFEPIME 1,000 MG/SWFI 10 ML IV PUSH IV SCH ×10 (01:00→23:13)
[2020-12-08] MEDS: RT-ALBUTEROL/IPRATROPIUM 3 ML (DUONEB) VIAL INH SCH ×6 (02:47→22:06)
[2020-12-08 05:39] LABS: TRIGLYCERIDES 88 MG/DL (<150); VLDL CHOLESTEROL 18 MG/DL (5-40)
[2020-12-08 05:44] LABS: CHOLESTEROL 157 MG/DL (< 200)
[2020-12-08 05:45] LABS: HDL CHOLESTEROL 40 MG/DL (40-60)
[2020-12-08] MEDS ORDERED: ONDANSETRON 4 MG/2 ML (SDV) Z0FRAN IV PRN (07:00)
[2020-12-08] MEDS ORDERED: SENNA W/DOCUSATE (SENOKOT S) TABLET PO PRN (07:00)
[2020-12-08] MEDS ORDERED: 1/2 NS IV SOLUTION 1,000 ML IV PRN (07:00)
[2020-12-08] MEDS ORDERED: D5 1/2 NS 1000 ML IV SOLUTION 1,000 ML IV PRN (07:00)
[2020-12-08] MEDS ORDERED: LORazepam INJ 2 MG/ML (ATIVAN) VIAL IVP ONE (07:00)
[2020-12-08] MEDS ORDERED: THIAMINE 100 MG (VITAMIN B-1) TAB PO SCH (07:00)
[2020-12-08] MEDS ORDERED: ONDANSETRON 4 MG (ZOFRAN) ORAL DISSOLVE TAB SL PRN (07:00)
[2020-12-08] MEDS ORDERED: LORazepam 1 MG (ATIVAN) TAB PO PRN (07:00)
[2020-12-08] MEDS ORDERED: ANTACID SUSP 30 ML UDC (MYLANTA) PO PRN (07:00)
[2020-12-08] MEDS ORDERED: LORazepam INJ 2 MG/ML (ATIVAN) VIAL ONE ×2 (07:01→07:04)
[2020-12-08] MEDS: LORazepam INJ 2 MG/ML (ATIVAN) VIAL IM/IV PRN (07:10)
[2020-12-08 07:13] LABS: INR 2.1 (0.8-1.4); PROTHROMBIN TIME PATIENT 24.3 SEC (12.2-14.7)
[2020-12-08] MEDS ORDERED: FLU QUAD HIGH DOSE 240 MCG/0.7 ML 2021-22 (FLUZONE) IM ONE (07:15)
[2020-12-08 07:19] LABS: ALANINE AMINOTRANSFERASE 16 U/L (0-55); ALBUMIN 3.7 GM/DL (3.2-4.5); ALKALINE PHOSPHATASE 86 U/L (40-136); BILIRUBIN,TOTAL 0.8 MG/DL (0.1-1.0); BUN/CREATININE RATIO 18; CALCIUM 10.6 MG/DL (8.5-10.1); CARBON DIOXIDE 30 MMOL/L (21-32); CHLORIDE 91 MMOL/L (98-107); CREATININE SERUM 0.85 MG/DL (0.60-1.30); GFR ESTIMATED 90; GLUCOSE 135 MG/DL (70-105); POTASSIUM 4.8 MMOL/L (3.6-5.0); SODIUM 140 MMOL/L (135-145); TOTAL PROTEIN 7.3 GM/DL (6.4-8.2)
[2020-12-08 07:47] LABS: ABG BASE EXCESS 14.4 MMOL/L (-2.5-2.5); ABG OXYGEN SATURATION 97 % (94-100); ABG PCO2 52 MMHG (35-45); ABG PH 7.48 (7.37-7.43); ABG PO2 83 MMHG (79-93)
[2020-12-08 07:51] LABS: ABG TCO2 40.7 MMOL/L (21.0-31.0)
[2020-12-08 07:52] LABS: INSPIRED O2 30%; PATIENT TEMP 36.7; VENTILATOR NO
[2020-12-08] MEDS ORDERED: NS IV 1000 ML 1,000 ML ONE (07:58)
--- NOTE | 2020-12-08 08:11 | Tele-ICU Progress Note ---
Subjective Date Seen by a Provider: Dec 08, 2020 Time Seen by a Provider: 07:00 Subjective/Events-last exam This virtual visit was conducted using real time audio/video. Thank you for asking us to see this patient for respiratory insufficiency, hypercapnia, acidosis and distress. Overnight developed agitation possibly due to EtOH withdrawal. PE: Mild agitation, has received IV Ativan. HR irreg.118/ min, SBP 105. O2 sat 98% on BiPAP 18/8 30%. HEENT: No obvious masses, adenopathy or JVD. Chest: clear to auscultation. Diminished. CV: Irreg. S1 S2 No murmur or added sounds. Abd: Non-tender. Bowel sounds Y. : Unremarkable. Meier: will order. 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 No obvious focal findings. Extremities: No edema. Capillary refill < 3 seconds. Skin: unremarkable. Results: CXR hyperinflated, B int opacxcities. AB.48/52/83: improved. D- Dimer 0.98. A/P: Respiratory insufficiency/distress: Cont Medrol, Duonebs, BiPAP. Start IV metoprolol, lovenox, bolus 1 L NS, place Meier. Continue Ativan. Available chart/ vitals / labs / images reviewed. Video assessment done using teleICU camera, rest of exam as per RN. Monitor for increasing sedation, oxygenation needs and/or need for intubation. Critical Care: critically ill patient. Discussed with CONSTANTIN Claudio. Asked RN to reach out to eICU if any questions or concerns later. Time spent with patient/coordination of care with other health professionals (mins): 25 Sepsis Event Evaluation Height, Weight, BMI Height: 6'4.00" Weight: 154lbs. 2.0oz. 69.191537hj; 22.00 BMI Method:Stated Focused Exam Lactate Level 12/07/20 16:18: Lactic Acid Level 1.67 Exam Exam Patient acknowledged, consented, and participated in this virtual visit which was conducted using real time audio/video Vital Signs Date Time Temp Pulse Resp B/P (MAP) Pulse Ox O2 Delivery O2 Flow Rate FiO2 12/08/20 07:45 36.7 12/08/20 07:16 112 19 96 40.00 12/08/20 07:00 137 18 105/82 97 NIV Bilevel 40.00 12/08/20 07:00 128 12/08/20 05:02 37.0 12/08/20 04:02 36.2 113 12/08/20 04:00 94 NIV Bilevel 30 12/08/20 04:00 113 20 114/81 93 NIV Bilevel 30.00 12/08/20 02:50 88 26 93 30.00 12/08/20 02:47 93 NIV Bilevel 30 12/08/20 01:02 36.1 95 30.00 12/08/20 01:00 100 12/08/20 00:00 96 17 111/77 91 NIV Bilevel 30.00 12/07/20 23:59 94 NIV Bilevel 30 12/07/20 22:53 87 25 94 30.00 12/07/20 22:47 94 NIV Bilevel 30 12/07/20 20:02 36.4 86 26 114/ 94 NIV Bilevel 30.00 12/07/20 20:00 94 NIV Bilevel 30 12/07/20 20:00 84 23 101/70 93 NIV Bilevel 30.00 12/07/20 19:00 84 12/07/20 18:49 73 26 94 30.00 12/07/20 17:05 80 26 119/84 NIV Bilevel 30.00 12/07/20 17:00 36.5 81 93 12/07/20 16:59 82 12/07/20 16:49 35.6 12/07/20 16:49 94 NIV Bilevel 30 12/07/20 16:45 75 13 146/96 96 NIV Bilevel 30.00 12/07/20 15:30 31 71 97 30.00 12/07/20 15:08 21 71 97 50.00 12/07/20 14:23 Nasal Cannula 6.00 12/07/20 14:23 100 Room Air 6.00 12/07/20 14:23 36.5 98 20 129/96 (107) Nasal Cannula 6.00 I & O 12/08/20 07:00 Intake Total 0 ml Output Total 150 ml Balance -150 ml Height & Weight Height: 6'4.00" Weight: 154lbs. 2.0oz. 69.614047ln; 22.00 BMI Method:Stated General Appearance: No Apparent Distress, WD/WN, Chronically ill, Thin, Other (SPO2 is 100% on his baseline 6 L. Lungs are diminished and without wheezing. Heart rate is controlled at ninety-nine atrial fibrillation with a blood pressure of 130 over 90s.) HEENT: PERRL/EOMI Neck: Full Range of Motion, Normal Inspection Respiratory: No Accessory Muscle Use, No Respiratory Distress Cardiovascular: Normal Peripheral Pulses, Irregularly Irregular Capillary Refill: Less Than 3 Seconds Peripheral Pulses: 1+ Dorsalis Pedis (R), 1+ Left Dors-Pedis (L) Extremity: Normal Capillary Refill, Normal Inspection Neurologic/Psychiatric: Alert, Other Skin: Normal Color, Warm/Dry Results Lab Laboratory Tests 12/07/20 15:06 12/08/20 04:09 Assessment/Plan Assessment/Plan See free text Critical Care: Critically Ill Patient ANTON DILL MD Dec 08, 2020 08:11
[2020-12-08] MEDS: NS IV 1000 ML 1,000 ML IV SCH ×3 (08:25→19:12)
[2020-12-08] MEDS ORDERED: NS IV 500 ML 500 ML IV SCH ×2 (08:30→11:30)
[2020-12-08] MEDS ORDERED: THIAMINE INJECTION 100 MG, FOLIC ACID INJECTION 1 MG, MAGNESIUM SULFATE 2 GM, VITAMIN M... IV SCH ×5 (09:00)
[2020-12-08] MEDS ORDERED: meTOprolol TARTRATE 50 MG (LOPRESSOR) TAB PO SCH (09:00)
[2020-12-08] MEDS ORDERED: APIXABAN 5 MG (ELIQUIS) TABLET PO SCH (09:00)
[2020-12-08] MEDS: LORazepam INJ 2 MG/ML (ATIVAN) VIAL IV PRN ×4 (09:48→20:22)
--- NOTE | 2020-12-08 09:48 | History & Physical-Hospitalist ---
History of Present Illness HPI/Chief Complaint to ER by private vehicle accompanied by with reports of altered mental status. According to he seemed to be generally weak beginning yesterday. She noticed that he turned off his oxygen supply during the night which he is chronically on at 6 L/min for COPD. She had to help him get dressed this morning which is unusual for him. During the middle of the night he got his pillow and moved his head to the foot of the bed also unusual behavior for him. No fevers. She states that his breathing seems a bit more labored than usual. 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 He has atrial fibrillation managed on diltiazem and Xarelto. He does have a BiPAP at home but does not wear it because he does not like the way it feels. Upon my arrival the morning of the the patient had received 2 mg of Ativan for significant agitation posing a threat to his health as he was trying to take his BiPAP off and pulling at lines. He was sedated appear to be in no acute distress with no evidence for respiratory distress on BiPAP. For this reason he was unable to give any additional history. In review of his records he has no past admissions and there are no comments about any issues with alcohol use disorder. Date Seen 12/08/20 Time Seen by a Provider: 07:30 Attending Physician Greg Day MD PCP Flavio Jackson MD Referring Physician Date of Admission Dec 07, 2020 at 16:00 Home Medications & Allergies Home Medications Reviewed patient Home Medication Reconciliation performed by pharmacy medication reconciliations blood bank laboratory technician and/or nursing. Patients Allergies have been reviewed. Allergies Allergies Coded Allergies No Known Drug Allergies (Unverified03/17/12) Past Nltgutm-Ooerga-Sdodoe Hx Patient Social History Tobacco Use?: Yes Tobacco type used: Cigarettes Smoking Status: Current Everyday Smoker Substance use?: No Alcohol Use?: Yes Alcohol type: Beer Alcohol Frequency: Daily Immunizations Up To Date Date of Influenza Vaccine: Mar 20, 2012 First/Initial COVID19 Vaccinat: UNKNOWN Second COVID19 Vaccination Raphael: UNKNOWN Tetanus Booster (TDap): Unknown Hepatitis A: No Hepatitis B: No PED Vaccines UTD: Yes Date of Pneumonia Vaccine: Oct 20, 2011 Seasonal Allergies Seasonal Allergies: No Current Status Advance Directives: No Communicates: Verbally Primary Language: Cymraes Preferred Spoken Language: Cymraes Is interpretation needed?: No Implanted or Applied Medical D: Stents Past Medical History Surgeries: Lobectomy Pneumonia, COPD Atrial Fibrillation, Coronary Artery Disease, High Cholesterol, Hypertension Arthritis Blood Disorders: No Family Medical History Asthma 19 MOTHER Cancer of extrahepatic bile ducts 19 FATHER Diabetes mellitus G8 SISTER FH: COPD (chronic obstructive pulmonary disease) 19 MOTHER Heart Disease, Cancer Review of Systems Constitutional: see HPI Physical Exam Physical Exam Vital Signs Vital Signs - First Documented 12/07/20 16:49 FiO2 30 Capillary Refill : Less Than 3 Seconds Height, Weight, BMI Height: 6'4.00" Weight: 154lbs. 2.0oz. 69.970640sn; 22.00 BMI Method:Stated General Appearance: Other (Sedated on BiPAP with no apparent distress appearing significantly older than his stated age.) Respiratory: Lungs Clear, No Accessory Muscle Use, No Respiratory Distress, Decreased Breath Sounds (Posteriorly but equal bilaterally. Anterior chest clear) Cardiovascular: Regular Rate, Rhythm, No Edema, No Gallop, No Murmur Extremity: Other (Without cyanosis or clubbing significant senile purpura noted predominantly on upper extremities no hematomas. No ulceration.) Results Results/Procedures Labs Laboratory Tests 12/07/20 15:06 12/08/20 04:09 Patient resulted labs reviewed. Assessment/Plan Admission Diagnosis 1. Acute on chronic hypercapnic respiratory failure due to tobacco related COPD and aggravated by noncompliance with CPAP very poor prognosis. Continue BiPAP. 2. Delirium I question alcohol withdrawal. The nurse is going to get more information from the about last alcohol intake in her estimation of his true intake for which he states is usually a beer or 2/day to the night nurse and emergency room physician. As the patient is not wheezing and Solu-Medrol may be contributing in the form of steroid related psychosis will discontinue Solu-Medrol and continue IV Ativan eICU help appreciated. Admission Status: Inpatient Order (span 2 midnights) Reason for Inpatient Admission: See admission diagnosis Critical Care Critically Ill Patient GREG DAY MD Dec 08, 2020 09:48
[2020-12-08] MEDS: ENOXAPARIN 40 MG/0.4 ML (LOVENOX) SYR SC SCH (10:31)
[2020-12-08] MEDS: meTOprolol 5 MG/5 ML (LOPRESSOR) VIAL IV SCH ×3 (10:33→20:20)
--- NOTE | 2020-12-08 12:08 | Consultation-Cardiology ---
HPI-Cardiology Cardiology Consultation Date of Consultation 12/08/20 Date of Admission Time Seen by Provider: 12:02 Indication: Atrial fibrillation HPI 65-year-old gentleman was admitted due to hypoxemia and acute respiratory failure. Has been sedated on Ativan, unable to provide any history, history was obtained by reviewing his records. Patient is maintained on oxygen at home he was noted to have increasing dyspnea, he does have a BiPAP but does not wear it. Currently he is on CPAP and sedated. Noted to be in atrial fibrillation. Home Medications & Allergies Allergies: Coded Allergies: No Known Drug Allergies (Unverified , 03/17/12) Home Medication List Reviewed: Yes [id number]-[id number]-Hulptu Hx Patient Social History Marital Status: Employed/Student: retired Smoking Status: Current Everyday Smoker Type Used: Cigarettes 2nd Hand Smoke Exposure: Yes Recent Hopitalizations: No Have you traveled recently?: No Alcohol Use?: Yes Immunizations Up To Date Tetanus Booster (TDap): Unknown Date of Pneumonia Vaccine: Oct 20, 2011 Date of Influenza Vaccine: Mar 20, 2012 Past Medical History Discussed below Family Medical History Significant Family History: Heart Disease, Cancer Family History: Asthma 19 MOTHER Cancer of extrahepatic bile ducts 19 FATHER Diabetes mellitus G8 SISTER FH: COPD (chronic obstructive pulmonary disease) 19 MOTHER Review of Systems-General Review of Systems Constitutional: see HPI, other (Unable to provide review of systems due to his current condition) EENTM: see HPI Respiratory: see HPI Cardiovascular: see HPI Genitourinary: see HPI Musculoskeletal: see HPI Skin: see HPI Psychiatric/Neurological: See HPI Reviewed Test Results Reviewed Test Results Lab Laboratory Tests Test 12/07/20 14:28 12/07/20 14:32 12/07/20 15:00 12/07/20 15:06 Range/Units Glucometer 107 70-110 MG/DL Blood Gas Puncture Site RT RAD Blood Gas Patient Temperature 36.4 Arterial Blood pH 7.29 *L 7.37-7.43 Arterial Blood Partial Pressure CO2 96 *H 35-45 MMHG Arterial Blood Partial Pressure O2 116 H 79-93 MMHG Arterial Blood HCO3 45 *H 23-27 MMOL/L Arterial Blood Total CO2 47.9 *H 21.0-31.0 MMOL/L Arterial Blood Oxygen Saturation 98 94-100 % Arterial Blood Base Excess 17.5 H -2.5-2.5 MMOL/L Harris Test YES-POS Blood Gas Ventilator Setting NO Blood Gas Inspired Oxygen 6 L SARS-CoV-2 RNA (RT-PCR) Not Detected Not Detecte White Blood Count 7.9 4.3-11.0 10^3/uL Red Blood Count 4.21 L 4.30-5.52 10^6/uL Hemoglobin 14.8 13.3-17.7 g/dL Hematocrit 47 40-54 % Mean Corpuscular Volume 112 H 80-99 fL Mean Corpuscular Hemoglobin 35 H 25-34 pg Mean Corpuscular Hemoglobin Concent 31 L 32-36 g/dL Red Cell Distribution Width 12.3 10.0-14.5 % Platelet Count 87 L 130-400 10^3/uL Mean Platelet Volume 11.7 9.0-12.2 fL Immature Granulocyte % (Auto) 1 % Neutrophils (%) (Auto) 74 42-75 % Lymphocytes (%) (Auto) 15 12-44 % Monocytes (%) (Auto) 8 0-12 % Eosinophils (%) (Auto) 2 0-10 % Basophils (%) (Auto) 1 0-10 % Neutrophils # (Auto) 5.9 1.8-7.8 10^3/uL Lymphocytes # (Auto) 1.2 1.0-4.0 10^3/uL Monocytes # (Auto) 0.7 0.0-1.0 10^3/uL Eosinophils # (Auto) 0.1 0.0-0.3 10^3/uL Basophils # (Auto) 0.0 0.0-0.1 10^3/uL Immature Granulocyte # (Auto) 0.1 0.0-0.1 10^3/uL Percent Immature Platelet Fraction 13.7 H 0.0-7.6 % Sodium Level 142 135-145 MMOL/L Potassium Level 4.6 3.6-5.0 MMOL/L Chloride Level 88 L 98-107 MMOL/L Carbon Dioxide Level 43 H 21-32 MMOL/L Anion Gap 11 5-14 MMOL/L Blood Urea Nitrogen 9 7-18 MG/DL Creatinine 0.71 0.60-1.30 MG/DL Estimat Glomerular Filtration Rate 111 BUN/Creatinine Ratio 13 Glucose Level 121 H 70-105 MG/DL Calcium Level 10.2 H 8.5-10.1 MG/DL Corrected Calcium 10.4 H 8.5-10.1 MG/DL Total Bilirubin 0.9 0.1-1.0 MG/DL Aspartate Amino Transf (AST/SGOT) 16 5-34 U/L Alanine Aminotransferase (ALT/SGPT) 16 0-55 U/L Alkaline Phosphatase 85 40-136 U/L Total Protein 7.2 6.4-8.2 GM/DL Albumin 3.7 3.2-4.5 GM/DL Serum Alcohol < 10 <10 MG/DL Test 12/07/20 16:11 12/07/20 16:18 12/07/20 17:25 12/07/20 17:40 Range/Units Urine Color YELLOW Urine Clarity CLEAR Urine pH 7.0 5-9 Urine Specific [place] 1.015 L 1.016-1.022 Urine Protein 1+ H NEGATIVE Urine Glucose (UA) NEGATIVE NEGATIVE Urine Ketones NEGATIVE NEGATIVE Urine Nitrite NEGATIVE NEGATIVE Urine Bilirubin NEGATIVE NEGATIVE Urine Urobilinogen 1.0 < = 1.0 MG/DL Urine Leukocyte Esterase NEGATIVE NEGATIVE Urine RBC (Auto) NEGATIVE NEGATIVE Urine RBC RARE /HPF Urine WBC RARE /HPF Urine Crystals NONE /LPF Urine Bacteria TRACE /HPF Urine Casts NONE /LPF Urine Mucus NEGATIVE /LPF Urine Culture Indicated NO Lactic Acid Level 1.67 0.50-2.00 MMOL/L Troponin I < 0.028 <0.028 NG/ML B-Type Natriuretic Peptide 230.3 H <100.0 PG/ML Procalcitonin 0.02 <0.10 NG/ML Prothrombin Time 29.0 H 12.2-14.7 SEC INR Comment 2.7 H 0.8-1.4 Activated Partial Thromboplast Time 42 H 24-35 SEC D-Dimer 0.98 H 0.00-0.49 UG/ML Blood Gas Puncture Site NA Blood Gas Patient Temperature 35.6 Arterial Blood pH 7.43 7.37-7.43 Arterial Blood Partial Pressure CO2 66 H 35-45 MMHG Arterial Blood Partial Pressure O2 57 L 79-93 MMHG Arterial Blood HCO3 44 *H 23-27 MMOL/L Arterial Blood Total CO2 45.7 *H 21.0-31.0 MMOL/L Arterial Blood Oxygen Saturation 94 94-100 % Arterial Blood Base Excess 17.8 H -2.5-2.5 MMOL/L Harris Test NA Blood Gas Ventilator Setting NO Blood Gas Inspired Oxygen 30% Test 12/08/20 04:09 12/08/20 06:01 12/08/20 07:29 12/08/20 11:55 Range/Units Prothrombin Time 24.3 H 12.2-14.7 SEC INR Comment 2.1 H 0.8-1.4 Activated Partial Thromboplast Time 39 H 24-35 SEC Sodium Level 140 135-145 MMOL/L Potassium Level 4.8 3.6-5.0 MMOL/L Chloride Level 91 L 98-107 MMOL/L Carbon Dioxide Level 30 21-32 MMOL/L Anion Gap 19 H 5-14 MMOL/L Blood Urea Nitrogen 15 7-18 MG/DL Creatinine 0.85 0.60-1.30 MG/DL Estimat Glomerular Filtration Rate 90 BUN/Creatinine Ratio 18 Glucose Level 135 H 70-105 MG/DL Calcium Level 10.6 H 8.5-10.1 MG/DL Corrected Calcium 10.8 H 8.5-10.1 MG/DL Total Bilirubin 0.8 0.1-1.0 MG/DL Aspartate Amino Transf (AST/SGOT) 24 5-34 U/L Alanine Aminotransferase (ALT/SGPT) 16 0-55 U/L Alkaline Phosphatase 86 40-136 U/L Total Protein 7.3 6.4-8.2 GM/DL Albumin 3.7 3.2-4.5 GM/DL Triglycerides Level 88 <150 MG/DL Cholesterol Level 157 < 200 MG/DL LDL Cholesterol Direct 106 1-129 MG/DL VLDL Cholesterol 18 5-40 MG/DL HDL Cholesterol 40 40-60 MG/DL Serum Alcohol < 10 <10 MG/DL Glucometer 164 H 131 H 70-110 MG/DL Blood Gas Puncture Site NA Blood Gas Patient Temperature 36.7 Arterial Blood pH 7.48 H 7.37-7.43 Arterial Blood Partial Pressure CO2 52 H 35-45 MMHG Arterial Blood Partial Pressure O2 83 79-93 MMHG Arterial Blood HCO3 39 H 23-27 MMOL/L Arterial Blood Total CO2 40.7 *H 21.0-31.0 MMOL/L Arterial Blood Oxygen Saturation 97 94-100 % Arterial Blood Base Excess 14.4 H -2.5-2.5 MMOL/L Harris Test NA Blood Gas Ventilator Setting NO Blood Gas Inspired Oxygen 30% Physical Exam Physical Exam Vital Signs Vital Signs - First Documented 12/07/20 16:49 FiO2 30 Capillary Refill : Less Than 3 Seconds Height, Weight, BMI Height: 6'4.00" Weight: 154lbs. 2.0oz. 69.748579ja; 22.00 BMI Method:Stated General Appearance: Moderate Distress, Other (Sedated on BiPAP with no apparent distress appearing significantly older than his stated age.) Eyes: Bilateral Eye Normal Inspection, Bilateral Eye PERRL, Bilateral Eye EOMI HEENT: Normal ENT Inspection Neck: Normal Inspection Respiratory: Lungs Clear, No Accessory Muscle Use, No Respiratory Distress, Decreased Breath Sounds (Posteriorly but equal bilaterally. Anterior chest clear) Cardiovascular: No Edema, No Gallop, No Murmur, Irregularly Irregular, Tachycardia Gastrointestinal: Normal Bowel Sounds, Non Tender, Soft Extremity: Other (Without cyanosis or clubbing significant senile purpura noted predominantly on upper extremities no hematomas. No ulceration.) Neurologic/Psychiatric: Alert, Other Skin: Normal Color, Warm/Dry A/P-Cardiology Admission Diagnosis Acute respiratory failure Atrial fibrillation Coronary artery disease Congestive heart failure Assessment/Plan Acute respiratory failure, maintained on CPAP, Acute exacerbation of COPD, history of oxygen dependent at home, managed by primary care team Acute change in mental status, could be alcohol withdrawal, recommend initiating withdrawal protocol, managed by primary care team Persistent atrial fibrillation, history of ablation done by Dr. Mccabe in April 2013, had multiple cardiac arrest during complex hospitalization in November 04 18 and he was hospitalized for 4 months. Continue on Cardizem drip and monitor tolerance and response Coronary artery disease, history of stenting to the right coronary artery using Promus 3 x 20 in March 2012, stress test done in October 2019 showing baseline atrial fibrillation with decreased uptake involving the mid to apical inferior wall with no reversibility, ejection fraction 40% Echocardiogram done in October 2019 showing normal LV size, EF 40 to 45%, left atrium 4.61 cm, PA pressure 40 to 45 mmHg History of multiple prolonged hospitalization at between October 2017 and February 2018, had history of aspergillus and he was intubated in the past. Hypertension, currently borderline hypotensive. We will give him a bolus of IV fluid and monitor tolerance and response Hyperlipidemia, monitor lipids COPD, oxygen dependent, history of hospitalization with Legionella pneumonia and CMV, respiratory failure, multiple cardiac arrest in October 2017. Loculated pneumonia, had right lung decortication in January 2018 resulted in hydropneumothorax and marked emphysema, had chest tube for a prolonged period of time. Tobaccoism, patient reported in the past that he has stopped. History of alcoholism, patient reported that he has stopped drinking in the past. Peptic ulcer disease, esophagitis Mild carotid stenosis nonobstructive disease, ultrasound done in 2019. AIDAN PASTOR MD Dec 08, 2020 12:08
[2020-12-08] MEDS ORDERED: AtorvaSTATin TABLET 10 MG TABLET PO SCH (21:00)
--- NOTE | 2020-12-08 21:25 | Tele-ICU Progress Note ---
Subjective Date Seen by a Provider: Dec 08, 2020 Time Seen by a Provider: 21:23 Subjective/Events-last exam Due to possible etoh withdrawal patient is receiving ativan- that causes hypotension; approach: switch to precedex/ LR bolus; may need further investigation and therapy fo rthe Afib with rvr if the fluid bolus and the usage of precedex will not stabilize the clinical status. Sepsis Event Evaluation Height, Weight, BMI Height: 6'4.00" Weight: 154lbs. 2.0oz. 69.144627cm; 22.00 BMI Method:Stated Focused Exam Lactate Level 12/07/20 16:18: Lactic Acid Level 1.67 Exam Exam Patient acknowledged, consented, and participated in this virtual visit which was conducted using real time audio/video Vital Signs Date Time Temp Pulse Resp B/P (MAP) Pulse Ox O2 Delivery O2 Flow Rate FiO2 12/08/20 20:00 NIV Bilevel 40 12/08/20 18:34 142 28 97 40.00 12/08/20 18:25 97 NIV Bilevel 40 12/08/20 18:00 117 18 96/63 98 NIV Bilevel 40.00 12/08/20 17:00 117 21 110/73 99 NIV Bilevel 40.00 12/08/20 16:44 36.2 12/08/20 16:00 128 20 125/75 93 NIV Bilevel 40.00 12/08/20 16:00 NIV Bilevel 30 12/08/20 15:00 114 19 128/86 95 NIV Bilevel 40.00 12/08/20 14:48 103 24 96 40.00 12/08/20 14:00 114 8 118/44 96 NIV Bilevel 40.00 12/08/20 13:00 116 12 120/90 96 NIV Bilevel 40.00 12/08/20 12:30 129 12/08/20 12:09 36.3 12/08/20 12:00 112 17 121/71 96 NIV Bilevel 40.00 12/08/20 12:00 NIV Bilevel 30 12/08/20 11:00 118 17 95/50 96 NIV Bilevel 40.00 12/08/20 10:19 116 19 98 40.00 12/08/20 10:00 129 10 85/61 98 NIV Bilevel 40.00 12/08/20 09:00 114 11 89/73 97 NIV Bilevel 40.00 12/08/20 08:04 36.7 12/08/20 08:00 124 13 92/69 98 NIV Bilevel 40.00 12/08/20 08:00 NIV Bilevel 30 12/08/20 07:45 36.7 12/08/20 07:16 112 19 96 40.00 12/08/20 07:00 137 18 105/82 97 NIV Bilevel 40.00 12/08/20 07:00 128 12/08/20 05:02 37.0 12/08/20 04:02 36.2 113 12/08/20 04:00 94 NIV Bilevel 30 12/08/20 04:00 113 20 114/81 93 NIV Bilevel 30.00 12/08/20 02:50 88 26 93 30.00 12/08/20 02:47 93 NIV Bilevel 30 12/08/20 01:02 36.1 95 30.00 12/08/20 01:00 100 12/08/20 00:00 96 17 111/77 91 NIV Bilevel 30.00 12/07/20 23:59 94 NIV Bilevel 30 12/07/20 22:53 87 25 94 30.00 12/07/20 22:47 94 NIV Bilevel 30 I & O 12/08/20 07:00 Intake Total 0 ml Output Total 150 ml Balance -150 ml Height & Weight Height: 6'4.00" Weight: 154lbs. 2.0oz. 69.122601cg; 22.00 BMI Method:Stated General Appearance: Moderate Distress, Other (Sedated on BiPAP with no apparent distress appearing significantly older than his stated age.) HEENT: Normal ENT Inspection Neck: Normal Inspection Respiratory: Lungs Clear, No Accessory Muscle Use, No Respiratory Distress, Decreased Breath Sounds (Posteriorly but equal bilaterally. Anterior chest clear) Cardiovascular: No Edema, No Gallop, No Murmur, Irregularly Irregular, Tachycar lori Capillary Refill: Less Than 3 Seconds Peripheral Pulses: 1+ Dorsalis Pedis (R), 1+ Left Dors-Pedis (L) Extremity: Other (Without cyanosis or clubbing significant senile purpura noted predominantly on upper extremities no hematomas. No ulceration.) Neurologic/Psychiatric: Alert, Other Skin: Normal Color, Warm/Dry Results Lab Laboratory Tests 12/07/20 15:06 12/08/20 04:09 Assessment/Plan Assessment/Plan pt with low bp high hr post MARIANGEL Breen MD Dec 08, 2020 21:25
[2020-12-08] MEDS ORDERED: LACTATED RINGERS 1,000 ML IV SCH (21:30)
[2020-12-08] MEDS: DexMEDEtomidine 250 ML DRIP 250 ML IV SCH (21:32)
[2020-12-09] MEDS: RT-ALBUTEROL/IPRATROPIUM 3 ML (DUONEB) VIAL INH SCH ×3 (03:01→11:24)
[2020-12-09] MEDS: meTOprolol 5 MG/5 ML (LOPRESSOR) VIAL IV SCH ×2 (03:43→08:45)
[2020-12-09] MEDS: NS IV 1000 ML 1,000 ML IV SCH (03:43)
[2020-12-09 04:36] LABS: ABG BASE EXCESS 12.2 MMOL/L (-2.5-2.5); ABG OXYGEN SATURATION 79 % (94-100); ABG PCO2 50 MMHG (35-45); ABG PH 7.47 (7.37-7.43); ABG PO2 43 MMHG (79-93); ABG TCO2 38.4 MMOL/L (21.0-31.0)
[2020-12-09] MEDS: CEFEPIME 1,000 MG/SWFI 10 ML IV PUSH IV SCH ×4 (05:32→11:12)
[2020-12-09] MEDS: CATHETER FLUSH 10 ML SYR IV SCH (05:32)
[2020-12-09] MEDS ORDERED: MAGNESIUM 1 GM/100 ML IVPB 100 ML IV SCH (06:00)
[2020-12-09] MEDS ORDERED: POTASSIUM CL 10MEQ/50ML IVPB 50 ML IV SCH (06:00)
[2020-12-09] MEDS ORDERED: KCL 20 MEQ TAB (K-DUR) PO SCH (06:00)
[2020-12-09 06:04] LABS: BASOPHILS % (AUTO) 0 % (0-10)
[2020-12-09 06:05] LABS: INSPIRED O2 30% BIPAP; PATIENT TEMP 36.1; VENTILATOR NO
[2020-12-09 06:07] LABS: EOSINOPHILS % (AUTO) 0 % (0-10); HEMATOCRIT 42 % (40-54); HEMOGLOBIN 13.6 g/dL (13.3-17.7); LYMPHOCYTES # (AUTO) 0.5 10^3/uL (1.0-4.0); LYMPHOCYTES % (AUTO) 6 % (12-44); MEAN CORPUSCULAR HEMOGLOBIN 35 pg (25-34); MEAN CORPUSCULAR HGB CONC 33 g/dL (32-36); MEAN CORPUSCULAR VOLUME 106 fL (80-99); MEAN PLATELET VOLUME 12.9 fL (9.0-12.2); MONOCYTES # (AUTO) 0.4 10^3/uL (0.0-1.0); MONOCYTES % (AUTO) 4 % (0-12); NEUTROPHILS # (AUTO) 8.2 10^3/uL (1.8-7.8); NEUTROPHILS % (AUTO) 90 % (42-75); PLATELET COUNT 95 10^3/uL (130-400); WHITE BLOOD COUNT 9.1 10^3/uL (4.3-11.0)
[2020-12-09 06:29] LABS: POTASSIUM 4.3 MMOL/L (3.6-5.0)
[2020-12-09 06:30] LABS: CALCIUM 9.6 MG/DL (8.5-10.1)
[2020-12-09 06:34] LABS: PHOSPHORUS 2.9 MG/DL (2.3-4.7)
[2020-12-09 06:35] LABS: CREATININE SERUM 0.74 MG/DL (0.60-1.30)
[2020-12-09 06:37] LABS: MAGNESIUM 1.5 MG/DL (1.6-2.4)
[2020-12-09 06:58] LABS: LYMPHOCYTES % (MANUAL) 7 %; MONOCYTES % (MANUAL) 2 %; NEUTROPHILS % (MANUAL) 91 %
--- NOTE | 2020-12-09 07:14 | Diagnostic Imaging Report ---
EXAMINATION: Chest 1 view HISTORY: Pneumonia COMPARISON: 12/07/2020 FINDINGS: Lungs are hyperinflated. There is scarring or atelectasis in the bases. There are increased interstitial markings in the upper zones. No pleural effusion. No pneumothorax. Heart size is normal. IMPRESSION: 1. Hyperinflated lungs with increased interstitial markings in the apices is favored to be related to emphysematous disease. Dictated by: Dictated on workstation # [id number]
[2020-12-09 07:20] VITALS: BP 134/106
[2020-12-09] MEDS ORDERED: THIAMINE 100 MG/ML 2 ML (VITAMIN B-1) VIAL ONE (07:38)
--- NOTE | 2020-12-09 07:54 | Tele-ICU Progress Note ---
Subjective Date Seen by a Provider: Dec 09, 2020 Time Seen by a Provider: 07:49 Subjective/Events-last exam Called for a fib with RVR up to 170, on IV metoprolol for rate control, BP ok, not wheezing, next dose is in 2 hours 5 mg IVP will give another 2.5 mg right now On IV precedex for agitation, pulling at tubes, does no think he abuses EtOH CXR today shows hyperinflation, RN says there are crackles but does not look like CHF BNP and troponin are normal, Procalcitonin 0.02 On IV Cefepime, blood cultures neg so far INR and PT up, pt may have been on coumadin remains on BiPAP 18/8 FiO2 30%, SpO2 97% Sepsis Event Evaluation Height, Weight, BMI Height: 6'4.00" Weight: 154lbs. 2.0oz. 69.467247nz; 22.00 BMI Method:Stated Focused Exam Lactate Level 12/07/20 16:18: Lactic Acid Level 1.67 Exam Exam Patient acknowledged, consented, and participated in this virtual visit which was conducted using real time audio/video Vital Signs Date Time Temp Pulse Resp B/P (MAP) Pulse Ox O2 Delivery O2 Flow Rate FiO2 12/09/20 07:25 NIV Bilevel 30 12/09/20 07:20 122 19 97 30.00 30.00 12/09/20 06:15 109 26 132/103 99 NIV Bilevel 30.00 12/09/20 05:00 118 18 134/109 98 NIV Bilevel 30.00 12/09/20 04:00 36.0 118 96 NIV Bilevel 30.00 12/09/20 04:00 NIV Bilevel 30 12/09/20 04:00 125 131/105 91 NIV Bilevel 30.00 12/09/20 03:03 115 21 97 30.00 12/09/20 03:01 96 NIV Bilevel 30 12/09/20 03:00 114 32 135/92 96 NIV Bilevel 30.00 12/09/20 02:00 116 23 136/105 96 NIV Bilevel 30.00 12/09/20 01:00 115 24 123/89 95 NIV Bilevel 30.00 12/09/20 01:00 115 12/09/20 00:00 120 14 113/57 96 NIV Bilevel 30.00 12/09/20 00:00 36.0 96 NIV Bilevel 30.00 12/08/20 23:59 NIV Bilevel 35 12/08/20 23:00 158 23 115/76 93 NIV Bilevel 35.00 12/08/20 22:10 124 25 95 30.00 12/08/20 22:06 97 NIV Bilevel 35 12/08/20 22:00 121 20 117/88 97 NIV Bilevel 35.00 12/08/20 21:32 133 12/08/20 21:00 110 17 100/66 99 NIV Bilevel 35.00 12/08/20 20:00 128 18 124/78 98 NIV Bilevel 35.00 12/08/20 20:00 NIV Bilevel 40 12/08/20 19:30 NIV Bilevel 35.00 12/08/20 19:00 133 12/08/20 19:00 133 17 86/63 99 NIV Bilevel 40.00 12/08/20 18:34 142 28 97 40.00 12/08/20 18:25 97 NIV Bilevel 40 12/08/20 18:00 117 18 96/63 98 NIV Bilevel 40.00 12/08/20 17:00 117 21 110/73 99 NIV Bilevel 40.00 12/08/20 16:44 36.2 12/08/20 16:00 128 20 125/75 93 NIV Bilevel 40.00 12/08/20 16:00 NIV Bilevel 30 12/08/20 15:00 114 19 128/86 95 NIV Bilevel 40.00 12/08/20 14:48 103 24 96 40.00 12/08/20 14:00 114 8 118/44 96 NIV Bilevel 40.00 12/08/20 13:00 116 12 120/90 96 NIV Bilevel 40.00 12/08/20 12:30 129 12/08/20 12:09 36.3 12/08/20 12:00 112 17 121/71 96 NIV Bilevel 40.00 12/08/20 12:00 NIV Bilevel 30 12/08/20 11:00 118 17 95/50 96 NIV Bilevel 40.00 12/08/20 10:19 116 19 98 40.00 12/08/20 10:00 129 10 85/61 98 NIV Bilevel 40.00 12/08/20 09:00 114 11 89/73 97 NIV Bilevel 40.00 12/08/20 08:04 36.7 12/08/20 08:00 124 13 92/69 98 NIV Bilevel 40.00 12/08/20 08:00 NIV Bilevel 30 I & O 12/09/20 07:00 Intake Total 2510 ml Balance 2510 ml Height & Weight Height: 6'4.00" Weight: 154lbs. 2.0oz. 69.019375an; 22.00 BMI Method:Stated General Appearance: Moderate Distress, Other (Sedated on BiPAP with no apparent distress appearing significantly older than his stated age.) HEENT: Normal ENT Inspection Neck: Normal Inspection Respiratory: Lungs Clear, No Accessory Muscle Use, No Respiratory Distress, Decreased Breath Sounds (Posteriorly but equal bilaterally. Anterior chest clear) Cardiovascular: No Edema, No Gallop, No Murmur, Irregularly Irregular, Tachycardia Capillary Refill: Less Than 3 Seconds Peripheral Pulses: 1+ Dorsalis Pedis (R), 1+ Left Dors-Pedis (L) Extremity: Other (Without cyanosis or clubbing significant senile purpura noted predominantly on upper extremities no hematomas. No ulceration.) Neurologic/Psychiatric: Alert, Other Skin: Normal Color, Warm/Dry Results Lab Laboratory Tests 12/07/20 15:06 12/08/20 04:09 12/09/20 05:17 Assessment/Plan Assessment/Plan COPD continue on BiPAP, continue same bronchodilators, Had been on Medrol, stopped for possible steroid psychosis, to get PICC line, Hx of pulmonary aspergillous A fib, will give an extra dose of IV Lopressor 2.5 mg, to be started on IV Cardizem per attending, HR now 120-130, BP 130-100/60-80 continue apixiban Agitation, will continue precedex-now @ 0.8, give PRN IV ativan, last Ativan was about 8 am Critical Care: Critically Ill Patient VIGNESH SPEAR MD Dec 09, 2020 07:54
[2020-12-09] MEDS: LORazepam INJ 2 MG/ML (ATIVAN) VIAL IM/IV PRN (07:57)
[2020-12-09] MEDS: ENOXAPARIN 40 MG/0.4 ML (LOVENOX) SYR SC SCH (08:43)
[2020-12-09] MEDS: MAGNESIUM 1 GM/100 ML IVPB 100 ML IV SCH ×2 (08:53→11:11)
[2020-12-09] MEDS ORDERED: THIAMINE INJECTION 100 MG in NS (IVPB) 50 ML IV SCH (09:00)
[2020-12-09] MEDS ORDERED: dilTIAZem DRIP PRE-MIX 125 ML IV SCH (09:30)
--- NOTE | 2020-12-09 10:28 | Cardiology Progress Note ---
Subjective Date Seen by Provider: Dec 09, 2020 Time Seen by Provider: 10:25 Subjective/Events-last exam Patient was seen at bedside, still sedated on BiPAP. Still tachycardic. Review of Systems General: Other (Unable to provide review of system) Focused Exam Lactate Level 12/07/20 16:18: Lactic Acid Level 1.67 Objective-Cardiology Exam Last Set of Vital Signs Vital Signs 12/09/20 12/09/20 12/09/20 07:25 07:45 09:00 Temp 36.0 Pulse 146 Resp 35 B/P (MAP) 132/87 Pulse Ox 95 O2 Delivery NIV Bilevel O2 Flow Rate 30.00 FiO2 30 I&O Intake and Output 12/09/20 00:00 Intake Total 2510 ml Output Total 0 ml Balance 2510 ml Intake Oral 0 ml IV Total 2510 ml Tube Feeding 0 ml Other 0 ml Output Urine Total 0 ml Bladder Scan Volume Amount 261 ml 300 ml 320 ml # Voids 6 General: Severe Distress, Other (Sedated) HEENT: Atraumatic Neck: Supple Lungs: Other (Bilateral rhonchi) Heart: Other (Atrial fibrillation with rapid ventricular response) Abdomen: Normal Bowel Sounds Extremities: No Clubbing, No Edema Skin: No Rashes Psych/Mental Status: Other (Sedated) Results Lab Laboratory Tests 12/09/20 05:17 A/P-Cardiology Admission Diagnosis Acute respiratory failure Atrial fibrillation Coronary artery disease Congestive heart failure Assessment/Plan Acute respiratory failure, maintained on CPAP, Acute exacerbation of COPD, history of oxygen dependent at home, managed by primary care team, had a long discussion with the , patient had extensive lung disease, followed with house carpenter at , he poses significantly complex management dilemma with his underlying extensive disease as described above. Requested to be transferred to and I agree with her current plan, I discussed it with Dr. Felton. Acute change in mental status, could be alcohol withdrawal, recommend initiating withdrawal protocol, managed by primary care team Persistent atrial fibrillation, history of ablation done by Dr. Mccabe in April 2013, had multiple cardiac arrest during complex hospitalization in October 2017 and he was hospitalized for 4 months. Starting Cardizem drip, evaluate to lerance and response Coronary artery disease, history of stenting to the right coronary artery using Promus 3 x 20 in March 2012, stress test done in October 2019 showing baseline atrial fibrillation with decreased uptake involving the mid to apical inferior wall with no reversibility, ejection fraction 40% Echocardiogram done in October 2019 showing normal LV size, EF 40 to 45%, left atrium 4.61 cm, PA pressure 40 to 45 mmHg History of multiple prolonged hospitalization at between October 2017 and February 2018, had history of aspergillus and he was intubated in the past. Hypertension, currently borderline hypotensive. We will give him a bolus of IV fluid and monitor tolerance and response Hyperlipidemia, monitor lipids COPD, oxygen dependent, history of hospitalization with Legionella pneumonia and CMV, respiratory failure, multiple cardiac arrest in October 2017. Loculated pneumonia, had right lung decortication in January 2018 resulted in hydropneumothorax and marked emphysema, had chest tube for a prolonged period of time. Tobaccoism, patient reported in the past that he has stopped. History of alcoholism, patient reported that he has stopped drinking in the past. Peptic ulcer disease, esophagitis Mild carotid stenosis nonobstructive disease, ultrasound done in 2018. AIDAN PASTOR MD Dec 09, 2020 10:28
[2020-12-09] MEDS ORDERED: MTP100TCR PO (11:58)
[2020-12-09] MEDS ORDERED: POTA20TA15 PO (11:58)
[2020-12-09] MEDS ORDERED: DILT240C87 PO (11:58)
[2020-12-09] MEDS ORDERED: CETI10TA17 PO (11:58)
[2020-12-09] MEDS ORDERED: BUDE10.7 INH (11:58)
[2020-12-09] MEDS ORDERED: ALBU18HF2 INH (11:58)
[2020-12-09] MEDS ORDERED: LOSA100T57 PO (11:58)
[2020-12-09] MEDS ORDERED: NAPR220T66 PO (11:58)
[2020-12-09] MEDS ORDERED: RIVA20TA PO (11:58)
[2020-12-09 12:38] VITALS: BP 145/102
[2020-12-09] MEDS: DexMEDEtomidine 250 ML DRIP 250 ML IV SCH (12:38)
--- NOTE | 2020-12-09 16:53 | Discharge Summary ---
Diagnosis/Chief Complaint Date of Admission Dec 07, 2020 at 16:00 Date of Discharge Dec 09, 2020 at 15:17 Discharge Summary-Simple/Stand Consultations Discharge Physical Examination Allergies: Coded Allergies: No Known Drug Allergies (Unverified , 03/17/12) Vitals & I&Os Vital Sign - Last 12Hours Date Time Temp Pulse Resp B/P (MAP) Pulse Ox O2 Delivery O2 Flow Rate FiO2 12/09/20 13:00 131 16 133/101 96 NIV Bilevel 30.00 12/09/20 12:00 30 12/09/20 11:25 36.3 Intake and Output 12/09/20 00:00 Intake Total 2000 ml Balance 2000 ml Hospital Course See final discharge diagnosis. Discharge Instructions to patient/family Please see electronic discharge instructions given to patient. Discharge Medications Reviewed and agree with Discharge Medication list on patient's Discharge Instruction sheet DESTINY HANNAH MD Dec 09, 2020 16:53
== END 2020-12-09 15:17 | disposition short-term general hospital (02) | DRG 189 ==
LOC: EDUNIT# 14:14 → ER 14:18 → ICU 16:00
PROVIDERS: ADMIT Internal Medicine; ATTEND Internal Medicine
PROC: 5A09457 Assistance with Respiratory Ventilation, 24-96 Consecutive Hours, Continuous Positive Airway Pressure (ICD-10-PCS; principal; 2020-12-07)
DX: J96.22 Acute and chronic respiratory failure with hypercapnia (principal); E87.2 Acidosis; J44.1 Chronic obstructive pulmonary disease with (acute) exacerbation; I48.19 Other persistent atrial fibrillation; F10.239 Alcohol dependence with withdrawal, unspecified; J96.21 Acute and chronic respiratory failure with hypoxia; Z79.01 Long term (current) use of anticoagulants; Z79.899 Other long term (current) drug therapy; Z90.2 Acquired absence of lung [part of]; Z95.5 Presence of coronary angioplasty implant and graft; I25.10 Atherosclerotic heart disease of native coronary artery without angina pectoris; E78.00 Pure hypercholesterolemia, unspecified; M19.90 Unspecified osteoarthritis, unspecified site; F17.210 Nicotine dependence, cigarettes, uncomplicated; Z91.14 Patient's other noncompliance with medication regimen; R41.0 Disorientation, unspecified; R45.1 Restlessness and agitation; I50.9 Heart failure, unspecified; I11.0 Hypertensive heart disease with heart failure; I95.9 Hypotension, unspecified; K27.9 Peptic ulcer, site unspecified, unspecified as acute or chronic, without hemorrhage or perforation; K20.90 Esophagitis, unspecified without bleeding; Z20.822 Contact with and (suspected) exposure to COVID-19
CPT/HCPCS: 36415; 70450; 71045; 80048; 80053; 80061; 80320; 81000; 82805; 82947; 83605; 83735; 83880; 84100; 84145; 84484; 85007; 85025; 85027; 85379; 85610; 85730; 87040; 87636; 93005; 93041; 94640; 94660

== ENCOUNTER → 2021-06-18 | Outpatient (CLI) | payer OTHER, MEDICARE ==
[~2021-06-18] MED LIST changes: +ALBU18HF2 INH; +BUDE10.7 INH; +CETI10TA17 PO; +DILT240C87 PO; +LOSA100T57 PO; +MTP100TCR PO; +POTA-179 PO; +RIVA20TA PO
== END ==
LOC: LABNPT 08:28
PROVIDERS: ATTEND Thoracic Surgery (Cardiothoracic Vascular Surgery)
DX: Z01.810 Encounter for preprocedural cardiovascular examination (principal); Z01.818 Encounter for other preprocedural examination; I71.4 Abdominal aortic aneurysm, without rupture; Z20.822 Contact with and (suspected) exposure to COVID-19
CPT/HCPCS: 87636

== ENCOUNTER → 2021-12-03 | Outpatient (CLI) | payer MEDICARE ==
--- NOTE | 2021-12-03 17:34 | Diagnostic Imaging Report ---
PROCEDURE: US left lower extremity venous. TECHNIQUE: Multiple real-time grayscale images were obtained over the left lower extremity in various projections. Additional duplex Doppler and color Doppler images were also obtained. INDICATION: Left leg swelling. There is no evidence of left lower extremity DVT. Left lower extremity DVT venous system shows normal compressibility with normal response to augmentation and Valsalva. No mass or fluid collection is seen. Incidental note is made of a partial occlusion of the mid left SFA. Flow below the knees in the arterial system was not visualized. IMPRESSION: 1. No evidence of left lower extremity DVT. 2. Lower extremity arterial disease, as described. Dedicated lower extremity arterial Doppler may be useful for further evaluation. Dictated by: Dictated on workstation # [id number]
== END ==
LOC: RAD 12:36
PROVIDERS: ATTEND Internal Medicine Critical Care Medicine
DX: J44.9 Chronic obstructive pulmonary disease, unspecified (principal); J96.11 Chronic respiratory failure with hypoxia; B44.0 Invasive pulmonary aspergillosis
CPT/HCPCS: 93971; C8929; 93306

== ENCOUNTER 2022-01-02 16:16 | Emergency (ER) | payer MEDICARE ==
[~2022-01-02] VITALS: Ht 182 cm; Wt 73.0 kg
[~2022-01-02 16:16] MED LIST changes: +ALBU8.5H6 INH; -RT-ALBUINH INH
[2022-01-02] MEDS ORDERED: methylPREDNISolone 125 MG (Solu-MEDROL) VIAL IV STA (16:29)
[2022-01-02] MEDS ORDERED: RT-ALBUTEROL/IPRATROPIUM 3 ML (DUONEB) VIAL INH ONE (16:30)
[2022-01-02 16:43] LABS: BASOPHILS % (AUTO) 0 % (0-10); MONOCYTES % (AUTO) 3 % (0-12)
[2022-01-02 16:45] LABS: EOSINOPHILS % (AUTO) 0 % (0-10); HEMATOCRIT 45 % (40-54); HEMOGLOBIN 15.2 g/dL (13.3-17.7); LYMPHOCYTES # (AUTO) 1.3 10^3/uL (1.0-4.0); LYMPHOCYTES % (AUTO) 10 % (12-44); MEAN CORPUSCULAR HEMOGLOBIN 35 pg (25-34); MEAN CORPUSCULAR HGB CONC 34 g/dL (32-36); MEAN CORPUSCULAR VOLUME 105 fL (80-99); MEAN PLATELET VOLUME 11.4 fL (9.0-12.2); MONOCYTES # (AUTO) 0.4 10^3/uL (0.0-1.0); NEUTROPHILS # (AUTO) 11.8 10^3/uL (1.8-7.8); NEUTROPHILS % (AUTO) 85 % (42-75); PLATELET COUNT 90 10^3/uL (130-400); WHITE BLOOD COUNT 13.8 10^3/uL (4.3-11.0)
[2022-01-02] MEDS ORDERED: ONDANSETRON 4 MG/2 ML (SDV) Z0FRAN IVP ONE (16:45)
--- NOTE | 2022-01-02 17:10 | Diagnostic Imaging Report ---
INDICATION: Shortness of breath. Frontal chest obtained at 04:53 p.m. and compared to 12/09/2020 There is cardiomegaly. There is COPD change. There is new infiltrate in the right mid to lower lung huang compatible with pneumonia. IMPRESSION: COPD changes. New right midlung and basilar infiltrate compatible with pneumonia. Dictated by: Dictated on workstation # [id number]
[2022-01-02 17:21] LABS: ALKALINE PHOSPHATASE 91 U/L (40-136); CREATININE SERUM 0.96 MG/DL (0.60-1.30); GFR ESTIMATED 87
[2022-01-02 17:22] LABS: BUN/CREATININE RATIO 11
[2022-01-02 17:24] LABS: ALANINE AMINOTRANSFERASE 38 U/L (0-55)
[2022-01-02] MEDS ORDERED: cefTRIAXone 1 GM PRE-MIX 50 ML IV ONE (17:30)
[2022-01-02 17:47] LABS: CHLORIDE 100 MMOL/L (98-107); POTASSIUM 4.1 MMOL/L (3.6-5.0); SODIUM 135 MMOL/L (135-145)
[2022-01-02 17:48] LABS: CALCIUM 9.2 MG/DL (8.5-10.1)
[2022-01-02 17:52] LABS: BILIRUBIN,TOTAL 1.4 MG/DL (0.1-1.0)
[2022-01-02 17:57] LABS: CARBON DIOXIDE QNS MMOL/L (21-32); GLUCOSE QNS MG/DL (70-105); TOTAL PROTEIN QNS GM/DL (6.4-8.2)
[2022-01-02 17:58] LABS: ALBUMIN QNS GM/DL (3.2-4.5)
--- NOTE | 2022-01-02 17:58 | ED Respiratory ---
General Chief Complaint: Respiratory Problems Stated Complaint: SOA Nursing Triage Note: ARRIVED VIA EMS FROM HOME WITH COMPLAINTS OF SOA THIS AM THEN WORSE AFTER WAKING UP FROM HIS NAP. PT ALSO COMPLAINS OF A COUGH AND DIARRHEA. Source: patient, EMS Exam Limitations: no limitations History of Present Illness Date Seen by Provider: Jan 02, 2022 Time Seen by Provider: 16:20 Initial Comments Patient is a 66-year-old male who presents to the emergency department via EMS with shortness of breath that began earlier today after he woke up from a nap. Patient states the shortness of breath is worse with exertion. He has a history of COPD and typically wears 3 L of oxygen via nasal cannula at all times. He states he had to increase the oxygen to 5 L at home due to his shortness of air. Denies any chest pain. States he also has had a productive cough, diarrhea, and nausea. No fever. Allergies and Home Medications Allergies Coded Allergies: No Known Drug Allergies (Unverified , 03/17/12) Patient Home Medication List Home Medication List Reviewed: Yes Albuterol Sulfate (Ventolin Hfa) 18 Gm Hfa.aer.ad, 2 PUFF INH Q6H PRN for SHORTNESS OF BREATH, (Reported) Entered as Reported by: IVELISSE BALLARD on 12/09/20 1158 Amoxicillin/Potassium Clav (Amox Tr-K Clv 875-125 mg Tab) 875 Mg-125 Mg Tablet, 1 EACH PO BID Prescribed by: Tim Lozada on 01/02/22 1813 Atorvastatin Calcium (Atorvastatin Calcium) 10 Mg Tablet, 10 MG PO HS, (Reported) Entered as Reported by: NIRAV GAFFNEY on 11/01/17 1057 Budesonide/Glycopyr/Formoterol (Breztri Aerosphere Inhaler) 10.7 Gm Hfa.aer.ad, 2 PUFF INH BID, (Reported) Entered as Reported by: IVELISSE BALLARD on 12/09/20 1158 Cetirizine HCl (Cetirizine HCl) 10 Mg Tablet, 10 MG PO DAILY, (Reported) Entered as Reported by: IVELISSE BALLARD on 12/09/20 1158 Diltiazem HCl (Diltiazem ER) 240 Mg Capsule.er, 240 MG PO DAILY, (Reported) Entered as Reported by: IVELISSE BALLARD on 12/09/20 1158 Losartan Potassium (Losartan Potassium) 100 Mg Tablet, 100 MG PO DAILY, (Reported) Entered as Reported by: IVELISSE BALLARD on 12/09/20 1158 Metoprolol Succinate (Metoprolol Succinate) 100 Mg Tab.er.24h, 100 MG PO DAILY, (Reported) Entered as Reported by: IVELISSE BALLARD on 12/09/20 1158 Naproxen Sodium (Aleve) 220 Mg Tablet, 220-440 MG PO BID PRN for PAIN-MILD (1- 4), (Reported) Entered as Reported by: IVELISSE BALLARD on 12/09/20 1158 Potassium Chloride (Potassium Chloride) 20 Meq Tab.er.prt, 20 MEQ PO DAILY, (Reported) Entered as Reported by: IVELISSE BALLARD on 12/09/20 115 Prednisone (Prednisone) 20 Mg Tab, 40 MG PO DAILY Prescribed by: Tim Lozada on 01/02/22 181 Rivaroxaban (Xarelto) 20 Mg Tablet, 20 MG PO DAILY, (Reported) Entered as Reported by: IVELISSE BALLARD on 12/09/20 1158 Review of Systems Review of Systems Constitutional: no symptoms reported EENTM: no symptoms reported Respiratory: see HPI, cough, dyspnea on exertion, short of breath Cardiovascular: no symptoms reported Gastrointestinal: diarrhea, nausea Past Aaddryg-Qosmbu-Ynrmwi Hx Patient Social History Tobacco Use?: Yes Smoking Status: Current Everyday Smoker Substance use?: No Substance frequency: Couple times a week Immunizations Up To Date Tetanus Booster (TDap): Unknown PED Vaccines UTD: Yes First/Initial COVID19 Vaccinat: UNKNOWN Second COVID19 Vaccination Raphael: UNKNOWN COVID19 Vaccine Clinical Social Work Aide: UNKNOWN Seasonal Allergies Seasonal Allergies: No Past Medical History Surgery/Hospitalization HX: ABLASION, HEART STENT, BRONCHOSCOPY, NOSE SURGERY, KNEE SCOPE Surgeries: Yes Lobectomy Respiratory: Yes (Tobaccoism) Pneumonia, COPD Cardiac: Yes (cardiac mass versus thrombus. STENTS, ABLATION) Atrial Fibrillation, Coronary Artery Disease, High Cholesterol, Hypertension Neurological: No Reproductive Disorders: No Genitourinary: No Gastrointestinal: No Musculoskeletal: Yes Arthritis Endocrine: No HEENT: No Cancer: No Psychosocial: No Integumentary: No Blood Disorders: No Family Medical History Asthma 19 MOTHER Cancer of extrahepatic bile ducts 19 FATHER Diabetes mellitus G8 SISTER FH: COPD (chronic obstructive pulmonary disease) 19 MOTHER Heart Disease, Cancer Physical Exam Vital Signs - First Documented 01/02/22 01/02/22 16:18 16:28 Temp 37.7 Pulse 55 Resp 16 B/P (MAP) 104/91 (95) Pulse Ox 94 O2 Delivery Nasal Cannula O2 Flow Rate 5.00 Capillary Refill : Height: 6'4.00" Weight: 154lbs. 2.0oz. 69.860936wd; 22.00 BMI Method:Stated General Appearance: WD/WN, no apparent distress HEENT: PERRL/EOMI, normal ENT inspection, TMs normal, pharynx normal Neck: non-tender, full range of motion, supple, normal inspection Respiratory: chest non-tender, normal breath sounds, no respiratory distress, no accessory muscle use, decreased breath sounds, wheezing, expiration Cardiovascular: regular rate, rhythm Gastrointestinal: normal bowel sounds, non tender, soft, no organomegaly, no pulsatile mass Extremities: normal range of motion, non-tender, normal inspection, no pedal edema Neurologic/Psychiatric: no motor/sensory deficits, alert, normal mood/affect, oriented x 3 Skin: normal color, warm/dry Procedures/Interventions Date of ETT Placement: Nov 13, 2017 Time of ETT Placement: 0810 Progress/Results/Core Measures Suspected Sepsis SIRS Temperature: Pulse: 55 Respiratory Rate: 16 Laboratory Tests 01/02/22 16:26: White Blood Count 13.8H Blood Pressure 104 /91 Mean: 95 Laboratory Tests 01/02/22 16:26: Platelet Count 90L 01/02/22 17:28: Creatinine 0.96, Total Bilirubin 1.4H Results/Orders Lab Results Laboratory Tests Test 01/02/22 16:26 01/02/22 16:45 01/02/22 17:28 Range/Units White Blood Count 13.8 H 4.3-11.0 10^3/uL Red Blood Count 4.29 L 4.30-5.52 10^6/uL Hemoglobin 15.2 13.3-17.7 g/dL Hematocrit 45 40-54 % Mean Corpuscular Volume 105 H 80-99 fL Mean Corpuscular Hemoglobin 35 H 25-34 pg Mean Corpuscular Hemoglobin Concent 34 32-36 g/dL Red Cell Distribution Width 13.6 10.0-14.5 % Platelet Count 90 L 130-400 10^3/uL Mean Platelet Volume 11.4 9.0-12.2 fL Immature Granulocyte % (Auto) 1 % Neutrophils (%) (Auto) 85 H 42-75 % Lymphocytes (%) (Auto) 10 L 12-44 % Monocytes (%) (Auto) 3 0-12 % Eosinophils (%) (Auto) 0 0-10 % Basophils (%) (Auto) 0 0-10 % Neutrophils # (Auto) 11.8 H 1.8-7.8 10^3/uL Lymphocytes # (Auto) 1.3 1.0-4.0 10^3/uL Monocytes # (Auto) 0.4 0.0-1.0 10^3/uL Eosinophils # (Auto) 0.0 0.0-0.3 10^3/uL Basophils # (Auto) 0.0 0.0-0.1 10^3/uL Immature Granulocyte # (Auto) 0.2 H 0.0-0.1 10^3/uL Percent Immature Platelet Fraction 13.6 H 0.0-7.6 % Influenza Type A (RT-PCR) Not Detected Not Detecte Influenza Type B (RT-PCR) Not Detected Not Detecte SARS-CoV-2 RNA (RT-PCR) Not Detected Not Detecte Sodium Level 135 135-145 MMOL/L Potassium Level 4.1 3.6-5.0 MMOL/L Chloride Level 100 98-107 MMOL/L Carbon Dioxide Level 21-32 MMOL/L Anion Gap 30 H 5-14 MMOL/L Blood Urea Nitrogen 11 7-18 MG/DL Creatinine 0.96 0.60-1.30 MG/DL Estimat Glomerular Filtration Rate 87 BUN/Creatinine Ratio 11 Glucose Level 70-105 MG/DL Calcium Level 9.2 8.5-10.1 MG/DL Corrected Calcium 8.5-10.1 MG/DL Total Bilirubin 1.4 H 0.1-1.0 MG/DL Aspartate Amino Transf (AST/SGOT) 16 5-34 U/L Alanine Aminotransferase (ALT/SGPT) 38 0-55 U/L Alkaline Phosphatase 91 40-136 U/L Troponin I < 0.028 <0.028 NG/ML Total Protein 6.4-8.2 GM/DL Albumin 3.2-4.5 GM/DL My Orders Orders - TIM LOZADA AGENT Cbc With Automated Diff (01/02/22 16:29) Comprehensive Metabolic Panel (01/02/22 16:29) Ekg Tracing (01/02/22 16:29) Chest 1 View, Ap/Pa Only (01/02/22 16:29) Covid 19 Inhouse Test (01/02/22 16:29) O2 (01/02/22 16:29) Ed Iv/Invasive Line Start (01/02/22 16:29) Monitor-Rhythm Ecg Trace Only (01/02/22 16:29) Albuterol/Ipra Inhalation Soln (Duoneb I (01/02/22 16:30) Methylprednisolone Sod Succ (Solu-Medrol (01/02/22 16:29) Influenza A And B By Pcr (01/02/22 16:29) Isolation Central Supply Req (01/02/22:) Svn Small Volume Nebulizer (01/02/22 16:29) Troponin I Kane (01/02/22 16:29) Ondansetron Injection (Zofran Injectio (01/02/22 16:45) Ceftriaxone 1 Gm Pre-Mix (Rocephin 1 Gm (01/02/22 17:30) Medications Given in ED Vital Signs/I&O 01/02/22 01/02/22 01/02/22 01/02/22 16:18 16:28 16:31 18:22 Temp 37.7 36.5 Pulse 55 74 Resp 16 16 B/P (MAP) 104/91 (95) 137/98 Pulse Ox 94 95 O2 Delivery Nasal Cannula Nasal Cannula Nasal Cannula O2 Flow Rate 5.00 5.00 5.00 3.00 01/03/22 00:00 Intake Total 50 ml Balance 50 ml Capillary Refill : Blood Pressure Mean: 95 Progress Note : Progress Note Patient is nontoxic and well-hydrated on exam. He does have diffuse expiratory wheezes as well as decreased breath sounds. He is tachypneic and has increased work of breathing. He is requiring an increased oxygen requirement of 5 L via oxymask. He states that he did have some improvement in work of breathing after the DuoNeb given to him by EMS. He was given another with marked improvement in work of breathing and breath sounds. He does have persistent diminished breath sounds in the right lung compared to the left. Patient also had some vomiting shortly after arrival. He was given Zofran with resolution of the nausea and vomiting. Laboratory evaluation notable for mild leukocytosis. Patient does have a markedly increased anion gap but there were issues with the CMP and not having enough quantity to obtain all pertinent lab values and I suspect this is erroneous. Patient endorses significant improvement in symptoms and he is stable on his normal 3 L of oxygen. Chest x-ray reveals right middle and lower lobe pneumonia. Patient was given a dose of Rocephin in the emergency department. Patient is requesting to be discharged home to attempt outpatient management. This seems reasonable. He will be sent home on Augmentin to in crease coverage of possible pathogens given he has increased risk factors of age and chronic oxygen requirement. Discussed supportive care and anticipatory guidance. Follow-up with PCP. Strict return precautions for urgent symptomology discussed. Patient verbalized understanding. Shortly after patient is discharged his pharmacy called stating that they do not have Augmentin at this time. Thus Levaquin was substituted. ECG EKG : EKG Time: 16:45 Rate: 55 Rhythm: A Fib/Flutter ECG Impression: Nonspecific Changes, Atrial Fibrillation Departure Impression Primary Impression: COPD exacerbation Additional Impression: Pneumonia involving right lung Qualified Codes: J18.9 - Pneumonia, unspecified organism Disposition: HOME, SELF-CARE Condition: Stable Departure-Patient Inst. Decision time for Depature: 18:05 Referrals: SAGE AYALA MD (PCP/Family) Primary Care Physician Patient Instructions: COPD Exacerbation, Adult ED, Pneumonia, Adult (DC) Scripts Prednisone (Prednisone) 20 Mg Tab 40 MG PO DAILY for 4 Days, #8 TAB 0 Refills Prov: TIM LOZADA APRN 01/02/22 Amoxicillin/Potassium Clav (Amox Tr-K Clv 875-125 mg Tab) 875 Mg-125 Mg Tablet 1 EACH PO BID for 5 Days, #10 TAB 0 Refills Prov: TIM LOZADA APRN 01/02/22 TIM LOZADA APRN Jan 02, 2022 17:58
[2022-01-02] MEDS ORDERED: PRD20T PO (18:13)
[2022-01-02] MEDS ORDERED: AMOX1TAB12 PO (18:13)
[2022-01-02 18:22] VITALS: BP 137/98
== END 2022-01-02 18:22 | disposition home or self-care (01) ==
LOC: EDUNIT# 16:16 → ER 16:17
DX: J44.1 Chronic obstructive pulmonary disease with (acute) exacerbation (principal); J18.9 Pneumonia, unspecified organism; F17.200 Nicotine dependence, unspecified, uncomplicated; Z20.822 Contact with and (suspected) exposure to COVID-19
CPT/HCPCS: 36415; 71045; 80053; 84484; 85025; 87636; 93005; 93041

== ENCOUNTER 2022-02-18 17:18 | Inpatient (IN) | payer MEDICARE, MEDICAID ==
[~2022-02-18] VITALS: Ht 182 cm; Wt 68.1 kg
[~2022-02-18 17:18] MED LIST changes: +AMOX1TAB12 PO; +PRD20T PO
--- NOTE | 2022-02-18 17:43 | ED Respiratory ---
General Chief Complaint: Respiratory Problems Stated Complaint: SOA Nursing Triage Note: PT PRESENTS TO ED VIA EMS FROM HOME WITH COMPLAINTS OF INCREASED SOA X 2 DAYS. PT HAS HX OF COPD. EMS REPORTS GIVING DUONEB TX IN ROUTE. INITIAL ETCO2 FOR EMS ON SCENE IS 21. PT DENIES RECENT FEVER. Source: patient Exam Limitations: no limitations History of Present Illness Date Seen by Provider: Feb 18, 2022 Time Seen by Provider: 17:42 Initial Comments This is a 66-year-old male who presented to the ER via [facility]. EMS reports patient was extremity short of breath on arrival with significant increased work of breathing. Reports history of COPD, was given DuoNeb treatment in route to hospital. End-tidal CO2 was placed on scene and was 21mmHg. EMS reports end-tidal CO2 increased to 32mmHg after administration of DuoNeb. 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 COPD managed with continuous home oxygen and BiPAP at bedtime. Spouse is at bedside and states he has had i ncreasing shortness of breath over the past couple days and significantly worsened this evening. Additionally, reports very small amount of urine output today and was tea colored. No fever, chills, sore throat, chest pain, nausea, vomiting, diarrhea, abdominal pain, dysuria. Allergies and Home Medications Allergies Coded Allergies: No Known Drug Allergies (Unverified , 03/17/12) Patient Home Medication List Home Medication List Reviewed: Yes Albuterol Sulfate (Ventolin Hfa) 18 Gm Hfa.aer.ad, 2 PUFF INH Q6H PRN for SHORTNESS OF BREATH, (Reported) Entered as Reported by: IVELISSE BALLARD on 12/09/20 1158 Amoxicillin/Potassium Clav (Amox Tr-K Clv 875-125 mg Tab) 875 Mg-125 Mg Tablet, 1 EACH PO BID Prescribed by: Tim Lozada on 01/02/22 1813 Atorvastatin Calcium (Atorvastatin Calcium) 10 Mg Tablet, 10 MG PO HS, (Reported) Entered as Reported by: NIRAV GAFFNEY on 11/01/17 1057 Budesonide/Glycopyr/Formoterol (Breztri Aerosphere Inhaler) 10.7 Gm Hfa.aer.ad, 2 PUFF INH BID, (Reported) Entered as Reported by: IVELISSE BALLARD on 12/09/20 115 Cetirizine HCl (Cetirizine HCl) 10 Mg Tablet, 10 MG PO DAILY, (Reported) Entered as Reported by: IVELISSE BALLARD on 12/09/201157 Diltiazem HCl (Diltiazem ER) 240 Mg Capsule.er, 240 MG PO DAILY, (Reported) Entered as Reported by: IVELISSE BALLARD on 12/09/20 115 Losartan Potassium (Losartan Potassium) 100 Mg Tablet, 100 MG PO DAILY, (Reported) Entered as Reported by: IVELISSE BALLARD on 12/09/201157 Metoprolol Succinate (Metoprolol Succinate) 100 Mg Tab.er.24h, 100 MG PO DAILY, (Reported) Entered as Reported by: IVELISSE BALLARD on 12/09/201157 Naproxen Sodium (Aleve) 220 Mg Tablet, 220-440 MG PO BID PRN for PAIN-MILD (1- 4), (Reported) Entered as Reported by: IVELISSE BALLARD on 12/09/201157 Potassium Chloride (Potassium Chloride) 20 Meq Tab.er.prt, 20 MEQ PO DAILY, (Reported) Entered as Reported by: IVELISSE BALLARD on 12/09/20 115 Prednisone (Prednisone) 20 Mg Tab, 40 MG PO DAILY Prescribed by: Tim Lozada on 01/02/22 181 Rivaroxaban (Xarelto) 20 Mg Tablet, 20 MG PO DAILY, (Reported) Entered as Reported by: IVELISSE BALLARD on 12/09/20 115 Review of Systems Review of Systems Constitutional: see HPI Past Lepqpym-Qogwkt-Djujfe Hx Patient Social History Tobacco Use?: Yes Tobacco type used: Cigarettes Smokeless Tobacco Frequency: Never a User Use of E-Cig and/or Vaping dev: No Use of E-Cig and/or Vaping Lonny: Never a User Substance use?: No Alcohol Use?: Yes Alcohol Frequency: Couple times a week Pt feels they are or have been: No Immunizations Up To Date Tetanus Booster (TDap): Unknown PED Vaccines UTD: Yes First/Initial COVID19 Vaccinat: YES Second COVID19 Vaccination Raphael: YES Seasonal Allergies Seasonal Allergies: No Past Medical History Surgery/Hospitalization HX: ABLASION, HEART STENT, BRONCHOSCOPY, NOSE SURGERY, KNEE SCOPE, COPD, HTN, HIGH CHOL, AFIB, TAKES XERALTO Surgeries: Yes Lobectomy Respiratory: Yes (Tobaccoism) Pneumonia, COPD Cardiac: Yes (cardiac mass versus thrombus. STENTS, ABLATION) Atrial Fibrillation, Coronary Artery Disease, High Cholesterol, Hypertension Neurological: No Reproductive Disorders: No Genitourinary: No Gastrointestinal: No Musculoskeletal: Yes Arthritis Endocrine: No HEENT: No Cancer: No Psychosocial: No Integumentary: No Blood Disorders: No Family Medical History Asthma 19 MOTHER Cancer of extrahepatic bile ducts 19 FATHER Diabetes mellitus G8 SISTER FH: COPD (chronic obstructive pulmonary disease) 19 MOTHER Heart Disease, Cancer Physical Exam Vital Signs - First Documented 02/18/22 17:21 Temp 36.6 Pulse 94 Resp 18 B/P (MAP) 150/80 (103) Capillary Refill : Less Than 3 Seconds Height: 6'4.00" Weight: 154lbs. 2.0oz. 69.107137rs; 21.00 BMI Method:Stated General Appearance: WD/WN, no apparent distress, moderate distress Eyes: Bilateral Eye Normal Inspection, Bilateral Eye PERRL, Bilateral Eye EOMI HEENT: PERRL/EOMI, normal ENT inspection, TMs normal, pharynx normal Neck: full range of motion, supple, normal inspection Respiratory: chest non-tender, respiratory distress, decreased breath sounds (bilateral bases ), accessory muscle use, wheezing (upper lobes), other (paradoxical breathing ) Cardiovascular: no edema; No gallop/S3; irregularly irregular Gastrointestinal: normal bowel sounds, non tender, soft Extremities: normal range of motion, normal inspection, no pedal edema, normal capillary refill Neurologic/Psychiatric: no motor/sensory deficits, alert, normal mood/affect, oriented x 3 Skin: normal color, warm/dry; No cyanosis Procedures/Interventions Date of ETT Placement: Nov 13, 2017 Time of ETT Placement: 0810 Progress/Results/Core Measures Suspected Sepsis SIRS Temperature: Pulse: 94 Respiratory Rate: 18 Laboratory Tests 02/18/22 17:30: White Blood Count 11.6H Blood Pressure 150 /80 Mean: 103 Laboratory Tests 02/18/22 17:30: Creatinine 0.81, INR Comment 2.4H, Platelet Count 146, Total Bilirubin 1.2H Results/Orders Lab Results Laboratory Tests Test 02/18/22 17:30 02/18/22 17:45 02/18/22 17:58 Range/Units White Blood Count 11.6 H 4.3-11.0 10^3/uL Red Blood Count 4.23 L 4.30-5.52 10^6/uL Hemoglobin 15.2 13.3-17.7 g/dL Hematocrit 45 40-54 % Mean Corpuscular Volume 107 H 80-99 fL Mean Corpuscular Hemoglobin 36 H 25-34 pg Mean Corpuscular Hemoglobin Concent 34 32-36 g/dL Red Cell Distribution Width 13.6 10.0-14.5 % Platelet Count 146 130-400 10^3/uL Mean Platelet Volume 10.8 9.0-12.2 fL Immature Granulocyte % (Auto) 0 % Neutrophils (%) (Auto) 81 H 42-75 % Lymphocytes (%) (Auto) 8 L 12-44 % Monocytes (%) (Auto) 10 0-12 % Eosinophils (%) (Auto) 0 0-10 % Basophils (%) (Auto) 0 0-10 % Neutrophils # (Auto) 9.3 H 1.8-7.8 10^3/uL Lymphocytes # (Auto) 1.0 1.0-4.0 10^3/uL Monocytes # (Auto) 1.2 H 0.0-1.0 10^3/uL Eosinophils # (Auto) 0.0 0.0-0.3 10^3/uL Basophils # (Auto) 0.0 0.0-0.1 10^3/uL Immature Granulocyte # (Auto) 0.0 0.0-0.1 10^3/uL Prothrombin Time 26.4 H 12.2-14.7 SEC INR Comment 2.4 H 0.8-1.4 Activated Partial Thromboplast Time 46 H 24-35 SEC D-Dimer 2.04 H 0.00-0.49 UG/ML Sodium Level 138 135-145 MMOL/L Potassium Level 4.0 3.6-5.0 MMOL/L Chloride Level 98 98-107 MMOL/L Carbon Dioxide Level 26 21-32 MMOL/L Anion Gap 14 5-14 MMOL/L Blood Urea Nitrogen 10 7-18 MG/DL Creatinine 0.81 0.60-1.30 MG/DL Estimat Glomerular Filtration Rate 97 BUN/Creatinine Ratio 12 Glucose Level 89 70-105 MG/DL Calcium Level 10.1 8.5-10.1 MG/DL Corrected Calcium 10.1 8.5-10.1 MG/DL Magnesium Level 1.7 1.6-2.4 MG/DL Total Bilirubin 1.2 H 0.1-1.0 MG/DL Aspartate Amino Transf (AST/SGOT) 31 5-34 U/L Alanine Aminotransferase (ALT/SGPT) 31 0-55 U/L Alkaline Phosphatase 120 40-136 U/L Total Creatine Kinase 40 30-200 U/L Creatine Kinase MB 2.7 <6.6 NG/ML Myoglobin 63.4 10.0-92.0 NG/ML Troponin I < 0.028 <0.028 NG/ML B-Type Natriuretic Peptide 172.0 H <100.0 PG/ML Total Protein 8.1 6.4-8.2 GM/DL Albumin 4.0 3.2-4.5 GM/DL Blood Gas Puncture Site L RADIAL Blood Gas Patient Temperature 36.2 Arterial Blood pH 7.32 *L 7.37-7.43 Arterial Blood Partial Pressure CO2 59 H 35-45 MMHG Arterial Blood Partial Pressure O2 36 *L 79-93 MMHG Arterial Blood HCO3 30 H 23-27 MMOL/L Arterial Blood Total CO2 32.0 H 21.0-31.0 MMOL/L Arterial Blood Oxygen Saturation 65 L 94-100 % Arterial Blood Base Excess 4.3 H -2.5-2.5 MMOL/L Harris Test NA Blood Gas Ventilator Setting NO Blood Gas Inspired Oxygen 3L Influenza Type A (RT-PCR) Not Detected Not Detecte Influenza Type B (RT-PCR) Not Detected Not Detecte SARS-CoV-2 RNA (RT-PCR) Not Detected Not Detecte My Orders Orders - LEEROY PATINO [employer] FO[employer] ASSISTANT [employer]ANT MANAGER Cbc With Automated Diff (02/18/22 17:37) Magnesium (02/18/22 17:37) Chest 1 View, Ap/Pa Only (02/18/22 17:37) Ekg Tracing (02/18/22 17:37) Comprehensive Metabolic Panel (02/18/22 17:37) Myoglobin Serum (02/18/22 17:37) Protime With Inr (02/18/22 17:37) Partial Thromboplastin Time (02/18/22 17:37) O2 (02/18/22 17:37) Monitor-Rhythm Ecg Trace Only (02/18/22 17:37) Ed Iv/Invasive Line Start (02/18/22 17:37) Creatine Kinase (02/18/22 17:37) Creatine Kinase Mb (02/18/22 17:37) Bnp Horacio (02/18/22 17:37) Fibrin Degradation Products (02/18/22 17:37) Troponin I Horacio (02/18/22 17:37) Covid 19 Inhouse Test (02/18/22 17:37) Influenza A And B By Pcr (02/18/22 17:37) Arterial Blood Gas (02/18/22 17:37) Methylprednisolone Sod Succ (Solu-Medrol (02/18/22 17:45) Bipap (Bilevel) Set Up (02/18/22 18:30) Medications Given in ED Current Medications Medications Dose Ordered Sig/Lorna Route Start Time Stop Time Status Last Admin Dose Admin Methylprednisolone Sodium Succinate 125 mg ONCE ONCE IVP 02/18/22 17:45 02/18/22 17:46 DC 02/18/22 18:01 125 MG Vital Signs/I&O 02/18/22 02/18/22 02/18/22 02/18/22 17:21 17:21 17:21 18:37 Temp 36.6 Pulse 94 77 Resp 18 34 B/P (MAP) 150/80 (103) Pulse Ox 93 96 99 O2 Delivery Nasal Cannula Nasal Cannula O2 Flow Rate 3.00 3.00 30.00 Capillary Refill : Less Than 3 Seconds Blood Pressure Mean: 103 Progress Note : Progress Note Upon EMS arrival patient is in moderate distress, he had just received DuoNeb treatment and was starting to feel somewhat better. He was placed on oxygen at 3 L via nasal cannula. He was still tachypneic after Duoneb with paradoxical breathing. Has history of COPD and initial concern is for severe exacerbation of his COPD. Orders placed for basic labs, cardiac workup, CXR, and ABG. Will likely require BiPAP. He does have a history of atrial fibrillation, no chest pain at this time. Currently rate controlled at 82bpm. Differential includes CHF, Pnuemonia, COVID/FLU, severe exacerbation of COPD. Review of his last echocardiogram on 11/02/2019 shows EF 40-45%. ECG Initial ECG Impression Date: Feb 18, 2022 Initial ECG Impression Time: 18:11 Initial ECG Rate: 82 Initial ECG Rhythm: A Fib/Flutter Initial ECG Impression: Atrial Fibrillation Diagnostic Imaging Diagonstic Imaging: Xray Plain Films/CT/US/NM/MRI: chest Comments [facility] [place] NAME: NANCY TRUJILLO [facility] REC#: [id number] PT STATUS: REG ER : 1955 PHYSICIAN: LEEROY PATINO FA[employer] FOOD ASSISTANT [employer]ANT MANAGER ADMIT DATE: 02/18/22/ER Signed Date of Exam:02/18/22 CHEST 1 VIEW, AP/PA ONLY INDICATION: Shortness of breath, chest pain. COMPARISON: 01/02/2022. TECHNIQUE: Single radiograph of the chest dated February 18, 2022. FINDINGS: The cardiac silhouette remains mildly enlarged. No significant pulmonary vascular congestion. Background pulmonary hyperinflation is again noted with associated right greater than left interstitial opacities. Opacities appear improved since the prior examination, particularly within the right upper and lower lung. No definite new focal pulmonary opacity when compared to the prior examination. No pleural effusion. No pneumothorax. No acute osseous abnormality. IMPRESSION: Background chronic obstructive pulmonary disease with associated chronic interstitial lung changes. Improved opacities within the right upper and lower lung when compared to the prior examination from December 2021. Findings likely relate to improving pneumonia. No new focal infiltrate. Mild cardiomegaly without pulmonary vascular congestion. Dictated by: Dictated on workstation # [id number] Dict: 02/18/227 Trans: 02/18/222013 PJE [id number] Interpreted by: CASSIUS WATTS MD Electronically signed by: CASSIUS WATTS MD 02/18/222013 Departure Communication (Admissions) Time/Spoke to Admitting Phy: 18:[address] Smith, [facility] insurance verification clerk for [facility] at this time. Will admit inpatient ICU. Impression Primary Impression: Acute and chronic respiratory failure with hypoxia Additional Impression: BiPAP (biphasic positive airway pressure) dependence Disposition: ADMITTED INPATIENT Condition: Stable Admissions Decision to Admit Reason: Admit from ER (General) Decision to Admit/Date: Feb 18, 2022 Time/Decision to Admit Time: 18:30 Departure-Patient Inst. Referrals: SAGE AYALA MD (PCP/Family) Primary Care Physician Copy Copies To 1: [facility]/LEEROY SNEED FA[employer] FOOD ASSISTANT [employer]AURANT MANAGER Feb 18, 2022 17:43
[2022-02-18] MEDS ORDERED: methylPREDNISolone 125 MG (Solu-MEDROL) VIAL IVP ONE (17:45)
[2022-02-18 17:48] LABS: BASOPHILS % (AUTO) 0 % (0-10); EOSINOPHILS % (AUTO) 0 % (0-10); HEMATOCRIT 45 % (40-54); HEMOGLOBIN 15.2 g/dL (13.3-17.7); LYMPHOCYTES % (AUTO) 8 % (12-44); MEAN CORPUSCULAR HEMOGLOBIN 36 pg (25-34); MEAN CORPUSCULAR HGB CONC 34 g/dL (32-36); MEAN CORPUSCULAR VOLUME 107 fL (80-99); MEAN PLATELET VOLUME 10.8 fL (9.0-12.2); MONOCYTES # (AUTO) 1.2 10^3/uL (0.0-1.0); MONOCYTES % (AUTO) 10 % (0-12); NEUTROPHILS # (AUTO) 9.3 10^3/uL (1.8-7.8); NEUTROPHILS % (AUTO) 81 % (42-75); PLATELET COUNT 146 10^3/uL (130-400); WHITE BLOOD COUNT 11.6 10^3/uL (4.3-11.0)
[2022-02-18 18:01] LABS: ABG BASE EXCESS 4.3 MMOL/L (-2.5-2.5); ABG OXYGEN SATURATION 65 % (94-100); ABG PCO2 59 MMHG (35-45)
[2022-02-18 18:05] LABS: ABG PH 7.32 (7.37-7.43); ABG PO2 36 MMHG (79-93); INSPIRED O2 3L; PATIENT TEMP 36.2; VENTILATOR NO
[2022-02-18 18:07] LABS: INR 2.4 (0.8-1.4); PROTHROMBIN TIME PATIENT 26.4 SEC (12.2-14.7)
[2022-02-18 18:19] LABS: CREATINE KINASE MB 2.7 NG/ML (<6.6)
--- NOTE | 2022-02-18 18:21 | Diagnostic Imaging Report ---
INDICATION: Shortness of breath, chest pain. COMPARISON: 01/02/2022. TECHNIQUE: Single radiograph of the chest dated February 18, 2022. FINDINGS: The cardiac silhouette remains mildly enlarged. No significant pulmonary vascular congestion. Background pulmonary hyperinflation is again noted with associated right greater than left interstitial opacities. Opacities appear improved since the prior examination, particularly within the right upper and lower lung. No definite new focal pulmonary opacity when compared to the prior examination. No pleural effusion. No pneumothorax. No acute osseous abnormality. IMPRESSION: Background chronic obstructive pulmonary disease with associated chronic interstitial lung changes. Improved opacities within the right upper and lower lung when compared to the prior examination from December 2021. Findings likely relate to improving pneumonia. No new focal infiltrate. Mild cardiomegaly without pulmonary vascular congestion. Dictated by: Dictated on workstation # [id number]
[2022-02-18 18:23] LABS: BILIRUBIN,TOTAL 1.2 MG/DL (0.1-1.0); CALCIUM 10.1 MG/DL (8.5-10.1); CREATININE SERUM 0.81 MG/DL (0.60-1.30); MAGNESIUM 1.7 MG/DL (1.6-2.4); TOTAL PROTEIN 8.1 GM/DL (6.4-8.2)
[2022-02-18 18:37] VITALS: BP 128/86
[2022-02-18] MEDS ORDERED: cefTRIAXone 1 GM PRE-MIX 50 ML IV ONE (20:00)
[2022-02-18 20:14] LABS: BILIRUBIN,URINE NEGATIVE (NEGATIVE); CLARITY,URINE CLEAR; COLOR,URINE YELLOW; GLUCOSE, URINE (UA) NEGATIVE (NEGATIVE); KETONES,URINE NEGATIVE (NEGATIVE); LEUKOCYTE ESTERASE ,URINE NEGATIVE (NEGATIVE); NITRITE,URINE NEGATIVE (NEGATIVE); PROTEIN,URINE 2+ (NEGATIVE)
[2022-02-18 20:34] LABS: BACTERIA,URINE TRACE /HPF
--- NOTE | 2022-02-18 20:53 | Tele-ICU Progress Note ---
Subjective Date Seen by a Provider: Feb 18, 2022 Subjective/Events-last exam This virtual visit was conducted using real time audio/video. Thank you for asking us to see this patient for respiratory insufficiency due to AECOPD Recent events: PMH: COPd HTN HL CAD/stent, afib/ablation on xarelto. SH: smoking history: current. FH: Non-contributory ROS: as in HPI PE: Cachectic,VSS. O2 sat 99% on BiPAP 16/8, 30%. HEENT: No obvious masses, adenopathy or JVD. Chest:diminished w wheezing on auscultation. CV: S1 S2 No murmur or added sounds. Abd: Non-tender. Bowel sounds Y. : Unremarkable. Meier N. CHEF DE FROID/psychiatric: Grossly intact. No obvious focal findings. Extremities:No edema. Capillary refill < 3 seconds. Skin: unremarkable. Results: Elevated 11.6. AB.32/59/36 on 3 LPM. CXR: Hyperinflated, R field improved compared to 12/2021. Available chart/ vitals / labs / images reviewed. Video assessment done using teleICU camera, rest of exam as per RN, ER CHASSIS MECHANIC. A/P: Respiratory insufficiency: Continue present management with medrol, duonebs, BiPAP Monitor for increasing oxygenation needs and/or need for intubation. Discussed with RN, ED CHASSIS MECHANIC . Asked RN to reach out to eICU if any questions or concerns later. Time spent with patient/coordination of care with other health professionals (mins): 24 Sepsis Event Evaluation Height, Weight, BMI Height: 6'4.00" Weight: 154lbs. 2.0oz. 69.546169xa; 21.00 BMI Method:Stated Exam Exam Patient acknowledged, consented, and participated in this virtual visit which was conducted using real time audio/video Vital Signs Date Time Temp Pulse Resp B/P (MAP) Pulse Ox O2 Delivery O2 Flow Rate FiO2 02/18/22 19:16 70 26 97 30.00 02/18/22 18:37 77 34 99 30.00 02/18/22 17:21 36.6 94 18 150/80 (103) 96 02/18/22 17:21 Nasal Cannula 3.00 02/18/22 17:21 93 Nasal Cannula 3.00 Height & Weight Height: 6'4.00" Weight: 154lbs. 2.0oz. 69.733479ya; 21.00 BMI Method:Stated General Appearance: Cachetic, Mild Distress Capillary Refill: Less Than 3 Seconds Peripheral Pulses: 1+ Dorsalis Pedis (R), 1+ Left Dors-Pedis (L) (See free text) Results Lab Laboratory Tests 02/18/22 17:30 Assessment/Plan Assessment/Plan See free text. Critical Care: Critically Ill Patient ANTON DILL MD Feb 18, 2022 20:53
[2022-02-18 21:29] VITALS: BP 150/80
[2022-02-18] MEDS ORDERED: ONDANSETRON 4 MG/2 ML (SDV) Z0FRAN IV PRN (21:45)
[2022-02-18] MEDS ORDERED: RT-ALBUTEROL/IPRATROPIUM 3 ML (DUONEB) VIAL INH PRN (21:45)
[2022-02-18] MEDS ORDERED: ACETAMINOPHEN 325 MG TABLET PO PRN (21:45)
[2022-02-18] MEDS: NS IV 1000 ML 1,000 ML IV SCH (22:40)
[2022-02-18] MEDS: FAMOTIDINE 20 MG (PEPCID) TABLET PO SCH (22:40)
[2022-02-18] MEDS: methylPREDNISolone 125 MG (Solu-MEDROL) VIAL IVP SCH (23:11)
[2022-02-18] MEDS: RT-ALBUTEROL/IPRATROPIUM 3 ML (DUONEB) VIAL INH SCH (23:47)
[2022-02-19 02:27] VITALS: BP 121/71
[2022-02-19] MEDS: RT-ALBUTEROL/IPRATROPIUM 3 ML (DUONEB) VIAL INH SCH ×5 (02:27→19:25)
[2022-02-19 05:13] LABS: BASOPHILS % (AUTO) 0 % (0-10); EOSINOPHILS % (AUTO) 0 % (0-10); HEMATOCRIT 39 % (40-54); HEMOGLOBIN 13.2 g/dL (13.3-17.7); LYMPHOCYTES # (AUTO) 0.4 10^3/uL (1.0-4.0); LYMPHOCYTES % (AUTO) 5 % (12-44); MEAN CORPUSCULAR HEMOGLOBIN 36 pg (25-34); MEAN CORPUSCULAR HGB CONC 34 g/dL (32-36); MEAN CORPUSCULAR VOLUME 105 fL (80-99); MEAN PLATELET VOLUME 10.7 fL (9.0-12.2); MONOCYTES # (AUTO) 0.1 10^3/uL (0.0-1.0); MONOCYTES % (AUTO) 2 % (0-12); NEUTROPHILS # (AUTO) 7.2 10^3/uL (1.8-7.8); NEUTROPHILS % (AUTO) 93 % (42-75); PLATELET COUNT 131 10^3/uL (130-400); WHITE BLOOD COUNT 7.8 10^3/uL (4.3-11.0)
[2022-02-19] MEDS: methylPREDNISolone 125 MG (Solu-MEDROL) VIAL IVP SCH ×3 (05:20→17:02)
[2022-02-19 05:32] LABS: ALBUMIN 3.2 GM/DL (3.2-4.5); BILIRUBIN,TOTAL 0.6 MG/DL (0.1-1.0); CALCIUM 9.4 MG/DL (8.5-10.1); CREATININE SERUM 0.83 MG/DL (0.60-1.30); MAGNESIUM 1.6 MG/DL (1.6-2.4); PHOSPHORUS 2.4 MG/DL (2.3-4.7); POTASSIUM 4.7 MMOL/L (3.6-5.0); TOTAL PROTEIN 6.5 GM/DL (6.4-8.2)
[2022-02-19 05:39] LABS: BAND NEUTROPHILS 3 %; LYMPHOCYTES % (MANUAL) 6 %; MONOCYTES % (MANUAL) 0 %; NEUTROPHILS % (MANUAL) 91 %
[2022-02-19 06:27] VITALS: BP 113/77
[2022-02-19 06:50] LABS: ABG BASE EXCESS 3.7 MMOL/L (-2.5-2.5); ABG OXYGEN SATURATION 99 % (94-100); ABG PCO2 48 MMHG (35-45); ABG PH 7.39 (7.37-7.43); ABG PO2 104 MMHG (79-93); ABG TCO2 29.8 MMOL/L (21.0-31.0); ALLENS TEST YES-POS; INSPIRED O2 30%
[2022-02-19 06:51] LABS: VENTILATOR NO
[2022-02-19] MEDS ORDERED: FLU QUAD HIGH DOSE 240 MCG/0.7 ML 2022-23 (FLUZONE) IM ONE (07:00)
--- NOTE | 2022-02-19 08:10 | Tele-ICU Progress Note ---
Subjective Date Seen by a Provider: Feb 19, 2022 Time Seen by a Provider: 11:53 Subjective/Events-last exam (Tele-ICU Physician , consultation) Available chart/ vitals / labs / Images reviewed H&P is from ER notes Patient's information available about PMH, allergy reviewed in EMR. ROS as per chart and RN report Video assessment done using teleICU camera, rest of exam as per RN Discussed with RN. This gentleman is a 66-year-old male with past medical history of for coronary artery disease/atrial fibrillation persistent and a failed ablation in 2013, COPD on home oxygen 3-1/2 L, previous history of multiple cardiac arrest with complex hospitalization in October 2017 presented to the emergency room with a complaint of fall cough chest congestion and shortness of breath. He is found to be hypoxic requiring BiPAP ventilation in the emergency room. Also found to have atrial fibrillation with rapid ventricular rate. Subsequently admitted to the intensive care unit. When I first saw the patient he has a heart rate of 120/min and I have ordered Lopressor 2.5 mg IV push x1 to be followed by card iology consultation. Lateral in the hospital course patient is able to come off the BiPAP and currently using 4 L of nasal cannula. He is wheezing. Impression 1. Acute upper respiratory tract infection with acute exacerbation of COPD 2. Acute and chronic hypoxic respiratory failure 3. Atrial fibrillation with rapid ventricular rate 4. History of coronary artery disease status post multiple cardiac arrest. Recommendations 1. We will give him IV antibiotics and bronchodilator therapy 2. IV Solu-Medrol 3. Atrial fibrillation with rapid ventricular rate. I have ordered 1 dose of Lopressor and the further evaluation will be done by cardiology service. 4. Wean oxygen as tolerated 5. Reportedly had a abdominal aortic aneurysm for which she underwent stent placement. 6. Hypertension management per cardiology. care coordination with bedside consultants and primary care physician. Sepsis Event Evaluation Height, Weight, BMI Height: 6'4.00" Weight: 154lbs. 2.0oz. 69.382783dz; 21.88 BMI Method:Stated Exam Exam Patient acknowledged, consented, and participated in this virtual visit which was conducted using real time audio/video Vital Signs Date Time Temp Pulse Resp B/P (MAP) Pulse Ox O2 Delivery O2 Flow Rate FiO2 02/19/22 06:27 106 29 99 30.00 02/19/22 06:00 97 25 113/77 (89) 97 NIV Bilevel 30.00 02/19/22 05:00 107 20 125/78 (94) 97 NIV Bilevel 30.00 02/19/22 04:00 36.5 02/19/22 04:00 91 21 129/79 (96) 97 NIV Bilevel 30.00 02/19/22 04:00 98 NIV Bilevel 30 02/19/22 03:00 109 26 127/74 (91) 96 NIV Bilevel 30.00 02/19/22 02:27 106 26 97 30.00 02/19/22 02:00 92 29 121/71 (88) 96 NIV Bilevel 30.00 02/19/22 01:00 111 17 117/68 (84) 97 NIV Bilevel 30.00 02/19/22 01:00 92 02/19/22 00:00 37.4 02/19/22 00:00 93 37 107/79 (88) 99 NIV Bilevel 30.00 02/18/22 23:59 97 NIV Bilevel 30 02/18/22 23:48 85 24 100 30.00 02/18/22 23:00 89 29 148/99 (115) 93 NIV Bilevel 30.00 02/18/22 22:45 92 33 126/89 (101) 97 NIV Bilevel 30.00 02/18/22 22:30 79 31 144/87 (106) 96 NIV Bilevel 30.00 02/18/22 22:15 97 29 137/89 (105) 95 NIV Bilevel 30.00 02/18/22 22:00 78 29 139/83 (101) 96 NIV Bilevel 30.00 02/18/22 21:45 80 33 125/82 (96) 95 NIV Bilevel 30.00 02/18/22 21:30 98 NIV Bilevel 30 02/18/22 21:30 85 23 133/83 (100) 96 NIV Bilevel 30.00 02/18/22 21:29 36.6 94 97 30 02/18/22 21:16 36.7 83 38 170/96 (120) 96 NIV Bilevel 30.00 02/18/22 21:15 75 33 145/76 (99) 96 NIV Bilevel 30.00 02/18/22 21:02 86 02/18/22 21:01 97 26 96 30.00 02/18/22 20:55 90 40 126/93 98 NIV Bilevel 30.00 02/18/22 19:16 70 26 97 30.00 02/18/22 18:37 77 34 99 30.00 02/18/22 17:21 36.6 94 18 150/80 (103) 96 02/18/22 17:21 Nasal Cannula 3.00 02/18/22 17:21 93 Nasal Cannula 3.00 I & O 02/19/22 06:59 Intake Total 300 ml Output Total 0 ml Balance 300 ml Height & Weight Height: 6'4.00" Weight: 154lbs. 2.0oz. 69.238916dn; 21.88 BMI Method:Stated General Appearance: Cachetic, Mild Distress Capillary Refill: Less Than 3 Seconds Peripheral Pulses: 1+ Dorsalis Pedis (R), 1+ Left Dors-Pedis (L) (See free text) Gastrointestinal: normal bowel sounds, non tender, soft Other comments PE PER RN Results Lab Laboratory Tests 02/18/22 17:30 02/19/22 04:36 Assessment/Plan Assessment/Plan ABOVE Critical Care: Critically Ill Patient Time spent with patient (mins): 25 ALIX BENTLEY MD Feb 19, 2022 08:10
[2022-02-19] MEDS ORDERED: meTOprolol 5 MG/5 ML (LOPRESSOR) VIAL IV ONE (08:15)
[2022-02-19] MEDS: FAMOTIDINE 20 MG (PEPCID) TABLET PO SCH ×2 (08:34→20:01)
--- NOTE | 2022-02-19 08:39 | History & Physical ---
HPI History of Present Illness: 66 yo male with COPD went to ER yesterday due to severe shortness of breath, could hardly speak. Was in ER in December with shortness of breath and diagnosed with pneumonia, able to be sent home at that time with antibiotics and steroids. He states he didn't get a whole lot better, but didn't get worse, then started c oming on again this week. Wednesday he had a fever, felt like he had a cold, fever and chills and next day felt a little better. Wednesday after he took off his mask in the morning and put on his supplemental oxygen, by the time he got to the living room, he was extremely short of breath, didn't even get his coffee. Turned his oxygen up as much as he could and after about 5 minutes calmed down, but all day if he did anything he got extremely winded. He went ahead and used his home machine, believes it is vent to mask, definitely bipap, he would go on and off of that through the day due to this. Usually uses 3 lpm supplemental oxygen. His was going to bring him by private vehicle, but he wasn't even able to make it into the car, so they ended up having to call the ambulance. He is not feeling too bad right now, but hasn't been out of bed yet. In the ER influenza A/B and COVID were negative. Source: patient, family Exam Limitations: no limitations Date seen by provider: Feb 19, 2022 Time Seen by Provider: 08:49 Attending Physician Flavio Jackson MD PCP Admitting Physician: Janiya Smith MD Attending Physician: Janiya Smith MD Consult Date of Admission Feb 18, 2022 at 18:52 Home Medications Home Medications Reviewed patient Home Medication Reconciliation performed by pharmacy medication reconciliations radiological technician and/or nursing. Patients Allergies have been reviewed. Allergies Coded Allergies: No Known Drug Allergies (Unverified , 03/17/12) [id number] Hx Patient Social History Smoking Status: Current Everyday Smoker 2nd Hand Smoke Exposure: Yes Recent Hopitalizations: No Alcohol Use?: Yes (12 pack per week at most) Substance type: Marijuana (history of smoking, uses gummies recently) Tobacco type used: Cigarettes Have you traveled recently?: No Immunizations Up To Date Tetanus Booster (TDap): Unknown Influenza Vaccine Up-to-Date: No; Not Current First/Initial COVID19 Vaccinat: 2020 Second COVID19 Vaccination Raphael: 2020 Third COVID19 Vaccination Date: 04/18/2021 Past Medical History PMHx: A fib 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, prolonged ventilator, rescucitated x 2 course Hypertension Hyperlipidemia SurgHx: Aortic aneurysm stenting A fib ablation Coronary artery stenting Pleurodesis x 2 Left elbow surgery Right knee arthroscopy Family Medical History Significant Family History: Heart Disease (sister from [place] at age 62), Cancer (father with bile duct cancer; sister dx with breast cancer in late 70s), Lung Disease (mother , emphysema) Review of Systems ([facility]) Constitutional: see HPI Respiratory: see HPI, cough (chronic productive every morning, no change) Cardiovascular: No chest pain Gastrointestinal: No abdominal pain, No constipation, No diarrhea Genitourinary: No dysuria Psychiatric/Neurological: Denies Headache Reviewed Test Results Reviewed Test Results Lab Laboratory Tests Test 02/18/22 17:30 02/18/22 17:45 02/18/22 17:58 02/18/22 20:08 Range/Units White Blood Count 11.6 H 4.3-11.0 10^3/uL Red Blood Count 4.23 L 4.30-5.52 10^6/uL Hemoglobin 15.2 13.3-17.7 g/dL Hematocrit 45 40-54 % Mean Corpuscular Volume 107 H 80-99 fL Mean Corpuscular Hemoglobin 36 H 25-34 pg Mean Corpuscular Hemoglobin Concent 34 32-36 g/dL Red Cell Distribution Width 13.6 10.0-14.5 % Platelet Count 146 130-400 10^3/uL Mean Platelet Volume 10.8 9.0-12.2 fL Immature Granulocyte % (Auto) 0 % Neutrophils (%) (Auto) 81 H 42-75 % Lymphocytes (%) (Auto) 8 L 12-44 % Monocytes (%) (Auto) 10 0-12 % Eosinophils (%) (Auto) 0 0-10 % Basophils (%) (Auto) 0 0-10 % Neutrophils # (Auto) 9.3 H 1.8-7.8 10^3/uL Lymphocytes # (Auto) 1.0 1.0-4.0 10^3/uL Monocytes # (Auto) 1.2 H 0.0-1.0 10^3/uL Eosinophils # (Auto) 0.0 0.0-0.3 10^3/uL Basophils # (Auto) 0.0 0.0-0.1 10^3/uL Immature Granulocyte # (Auto) 0.0 0.0-0.1 10^3/uL Prothrombin Time 26.4 H 12.2-14.7 SEC INR Comment 2.4 H 0.8-1.4 Activated Partial Thromboplast Time 46 H 24-35 SEC D-Dimer 2.04 H 0.00-0.49 UG/ML Sodium Level 138 135-145 MMOL/L Potassium Level 4.0 3.6-5.0 MMOL/L Chloride Level 98 98-107 MMOL/L Carbon Dioxide Level 26 21-32 MMOL/L Anion Gap 14 5-14 MMOL/L Blood Urea Nitrogen 10 7-18 MG/DL Creatinine 0.81 0.60-1.30 MG/DL Estimat Glomerular Filtration Rate 97 BUN/Creatinine Ratio 12 Glucose Level 89 70-105 MG/DL Calcium Level 10.1 8.5-10.1 MG/DL Corrected Calcium 10.1 8.5-10.1 MG/DL Magnesium Level 1.7 1.6-2.4 MG/DL Total Bilirubin 1.2 H 0.1-1.0 MG/DL Aspartate Amino Transf (AST/SGOT) 31 5-34 U/L Alanine Aminotransferase (ALT/SGPT) 31 0-55 U/L Alkaline Phosphatase 120 40-136 U/L Total Creatine Kinase 40 30-200 U/L Creatine Kinase MB 2.7 <6.6 NG/ML Myoglobin 63.4 10.0-92.0 NG/ML Troponin I < 0.028 <0.028 NG/ML B-Type Natriuretic Peptide 172.0 H <100.0 PG/ML Total Protein 8.1 6.4-8.2 GM/DL Albumin 4.0 3.2-4.5 GM/DL Blood Gas Puncture Site L RADIAL Blood Gas Patient Temperature 36.2 Arterial Blood pH 7.32 *L 7.37-7.43 Arterial Blood Partial Pressure CO2 59 H 35-45 MMHG Arterial Blood Partial Pressure O2 36 *L 79-93 MMHG Arterial Blood HCO3 30 H 23-27 MMOL/L Arterial Blood Total CO2 32.0 H 21.0-31.0 MMOL/L Arterial Blood Oxygen Saturation 65 L 94-100 % Arterial Blood Base Excess 4.3 H -2.5-2.5 MMOL/L Harris Test NA Blood Gas Ventilator Setting NO Blood Gas Inspired Oxygen 3L Influenza Type A (RT-PCR) Not Detected Not Detecte Influenza Type B (RT-PCR) Not Detected Not Detecte SARS-CoV-2 RNA (RT-PCR) Not Detected Not Detecte Urine Color YELLOW Urine Clarity CLEAR Urine pH 6.0 5-9 Urine Specific [place] 1.025 H 1.016-1.022 Urine Protein 2+ H NEGATIVE Urine Glucose (UA) NEGATIVE NEGATIVE Urine Ketones NEGATIVE NEGATIVE Urine Nitrite NEGATIVE NEGATIVE Urine Bilirubin NEGATIVE NEGATIVE Urine Urobilinogen 1.0 < = 1.0 MG/DL Urine Leukocyte Esterase NEGATIVE NEGATIVE Urine RBC (Auto) NEGATIVE NEGATIVE Urine RBC NONE /HPF Urine WBC 2-5 /HPF Urine Squamous Epithelial Cells NONE /HPF Urine Crystals NONE /LPF Urine Bacteria TRACE /HPF Urine Casts NONE /LPF Urine Mucus NEGATIVE /LPF Urine Culture Indicated NO Test 02/19/22 04:36 02/19/22 06:30 Range/Units White Blood Count 7.8 4.3-11.0 10^3/uL Red Blood Count 3.70 L 4.30-5.52 10^6/uL Hemoglobin 13.2 L 13.3-17.7 g/dL Hematocrit 39 L 40-54 % Mean Corpuscular Volume 105 H 80-99 fL Mean Corpuscular Hemoglobin 36 H 25-34 pg Mean Corpuscular Hemoglobin Concent 34 32-36 g/dL Red Cell Distribution Width 13.5 10.0-14.5 % Platelet Count 131 130-400 10^3/uL Mean Platelet Volume 10.7 9.0-12.2 fL Immature Granulocyte % (Auto) 0 % Neutrophils (%) (Auto) 93 H 42-75 % Lymphocytes (%) (Auto) 5 L 12-44 % Monocytes (%) (Auto) 2 0-12 % Eosinophils (%) (Auto) 0 0-10 % Basophils (%) (Auto) 0 0-10 % Neutrophils # (Auto) 7.2 1.8-7.8 10^3/uL Lymphocytes # (Auto) 0.4 L 1.0-4.0 10^3/uL Monocytes # (Auto) 0.1 0.0-1.0 10^3/uL Eosinophils # (Auto) 0.0 0.0-0.3 10^3/uL Basophils # (Auto) 0.0 0.0-0.1 10^3/uL Immature Granulocyte # (Auto) 0.0 0.0-0.1 10^3/uL Neutrophils % (Manual) 91 % Lymphocytes % (Manual) 6 % Monocytes % (Manual) 0 % Band Neutrophils 3 % Percent Immature Platelet Fraction 9.3 H 0.0-7.6 % Macrocytosis SLIGHT Sodium Level 137 135-145 MMOL/L Potassium Level 4.7 3.6-5.0 MMOL/L Chloride Level 101 98-107 MMOL/L Carbon Dioxide Level 26 21-32 MMOL/L Anion Gap 10 5-14 MMOL/L Blood Urea Nitrogen 13 7-18 MG/DL Creatinine 0.83 0.60-1.30 MG/DL Estimat Glomerular Filtration Rate 97 BUN/Creatinine Ratio 16 Glucose Level 197 H 70-105 MG/DL Calcium Level 9.4 8.5-10.1 MG/DL Corrected Calcium 10.0 8.5-10.1 MG/DL Phosphorus Level 2.4 2.3-4.7 MG/DL Magnesium Level 1.6 1.6-2.4 MG/DL Total Bilirubin 0.6 0.1-1.0 MG/DL Aspartate Amino Transf (AST/SGOT) 29 5-34 U/L Alanine Aminotransferase (ALT/SGPT) 30 0-55 U/L Alkaline Phosphatase 97 40-136 U/L Total Protein 6.5 6.4-8.2 GM/DL Albumin 3.2 3.2-4.5 GM/DL Blood Gas Puncture Site RRAD Blood Gas Patient Temperature 37.0 Arterial Blood pH 7.39 7.37-7.43 Arterial Blood Partial Pressure CO2 48 H 35-45 MMHG Arterial Blood Partial Pressure O2 104 H 79-93 MMHG Arterial Blood HCO3 28 H 23-27 MMOL/L Arterial Blood Total CO2 29.8 21.0-31.0 MMOL/L Arterial Blood Oxygen Saturation 99 94-100 % Arterial Blood Base Excess 3.7 H -2.5-2.5 MMOL/L Harris Test YES-POS Blood Gas Ventilator Setting NO Blood Gas Inspired Oxygen 30% Radiology CXR 02/18/22: IMPRESSION: Background chronic obstructive pulmonary disease with associated chronic interstitial lung changes. Improved opacities within the right upper and lower lung when compared to the prior examination from December 2021. Findings likely relate to improving pneumonia. No new focal infiltrate. Mild cardiomegaly without pulmonary vascular congestion. Physical Exam-([facility]) Physical Exam Vital Signs VS - Last 72 Hours, by Label 02/18/22 02/18/22 02/18/22 02/18/22 17:21 17:21 17:21 18:37 Temp 36.6 Pulse 94 77 Resp 18 34 B/P (MAP) 150/80 (103) Pulse Ox 93 96 99 O2 Delivery Nasal Cannula Nasal Cannula O2 Flow Rate 3.00 3.00 30.00 02/18/22 02/18/22 02/18/22 02/18/22 19:16 20:55 21:01 21:02 Pulse 70 90 97 86 Resp 26 40 26 B/P (MAP) 126/93 Pulse Ox 97 98 96 O2 Delivery NIV Bilevel O2 Flow Rate 30.00 30.00 30.00 02/18/22 02/18/22 02/18/22 02/18/22 21:15 21:16 21:29 21:30 Temp 36.7 36.6 Pulse 75 83 94 85 Resp 33 38 23 B/P (MAP) 145/76 (99) 170/96 (120) 133/83 (100) Pulse Ox 96 96 97 96 O2 Delivery NIV Bilevel NIV Bilevel NIV Bilevel O2 Flow Rate 30.00 30.00 30.00 FiO2 30 02/18/22 02/18/22 02/18/22 02/18/22 21:30 21:45 22:00 22:15 Pulse 80 78 97 Resp 33 29 29 B/P (MAP) 125/82 (96) 139/83 (101) 137/89 (105) Pulse Ox 98 95 96 95 O2 Delivery NIV Bilevel NIV Bilevel NIV Bilevel NIV Bilevel O2 Flow Rate 30.00 30.00 30.00 FiO2 30 02/18/22 02/18/22 02/18/22 02/18/22 22:30 22:45 23:00 23:48 Pulse 79 92 89 85 Resp 31 33 29 24 B/P (MAP) 144/87 (106) 126/89 (101) 148/99 (115) Pulse Ox 96 97 93 100 O2 Delivery NIV Bilevel NIV Bilevel NIV Bilevel O2 Flow Rate 30.00 30.00 30.00 30.00 02/18/22 02/19/22 02/19/22 02/19/22 23:59 00:00 00:00 01:00 Temp 37.4 Pulse 93 92 Resp 37 B/P (MAP) 107/79 (88) Pulse Ox 97 99 O2 Delivery NIV Bilevel NIV Bilevel O2 Flow Rate 30.00 FiO2 30 02/19/22 02/19/22 02/19/22 02/19/22 01:00 02:00 02:27 03:00 Pulse 111 92 106 109 Resp 17 29 26 26 B/P (MAP) 117/68 (84) 121/71 (88) 127/74 (91) Pulse Ox 97 96 97 96 O2 Delivery NIV Bilevel NIV Bilevel NIV Bilevel O2 Flow Rate 30.00 30.00 30.00 30.00 02/19/22 02/19/22 02/19/22 02/19/22 04:00 04:00 04:00 05:00 Temp 36.5 Pulse 91 107 Resp 21 20 B/P (MAP) 129/79 (96) 125/78 (94) Pulse Ox 98 97 97 O2 Delivery NIV Bilevel NIV Bilevel NIV Bilevel O2 Flow Rate 30.00 30.00 FiO2 30 02/19/22 02/19/22 02/19/22 02/19/22 06:00 06:27 07:00 07:00 Pulse 97 106 119 114 Resp 25 29 24 B/P (MAP) 113/77 (89) 123/89 (100) Pulse Ox 97 99 98 O2 Delivery NIV Bilevel NIV Bilevel O2 Flow Rate 30.00 30.00 30.00 02/19/22 02/19/22 02/19/22 02/19/22 08:00 08:00 08:00 08:34 Temp 36.4 Pulse 112 Resp 30 B/P (MAP) 142/87 (105) Pulse Ox 99 95 O2 Delivery NIV Bilevel Nasal Cannula Nasal Cannula O2 Flow Rate 30.00 4.00 4.00 02/19/22 02/19/22 02/19/22 02/19/22 09:00 10:00 10:25 11:00 Pulse 135 133 141 Resp 14 44 33 B/P (MAP) 156/105 (122) 137/84 (101) 116/80 (92) Pulse Ox 97 94 96 96 O2 Delivery Nasal Cannula Nasal Cannula Nasal Cannula Nasal Cannula O2 Flow Rate 4.00 4.00 4.00 4.00 02/19/22 02/19/22 02/19/22 02/19/22 11:29 11:29 11:54 11:58 Temp 36.4 Pulse 133 133 B/P (MAP) 137/84 137/84 O2 Delivery NIV Bilevel O2 Flow Rate 30.00 02/19/22 12:00 Pulse 133 Resp 25 B/P (MAP) 94/74 (81) Pulse Ox 98 O2 Delivery NIV Bilevel O2 Flow Rate 30.00 Capillary Refill : Less Than 3 Seconds General Appearance: no apparent distress Respiratory: no respiratory distress, rales, rhonchi, wheezing Cardiovascular: tachycardia Gastrointestinal: normal bowel sounds, non tender, soft Neurologic/Psychiatric: alert, normal mood/affect Skin: warm/dry Assessment/Plan Assessment/Plan Admission Status: Inpatient Order (span 2 midnights) Reason for Inpatient Admission: Severe COPD exacerbation requiring bipap (1) Respiratory failure Status: Acute Assessment & Plan: Secondary to COPD exacerbation, possible persistent pneumonia. Qualifiers: Qualified Codes: J96.21 - Acute and chronic respiratory failure with hypoxia; J96.22 - Acute and chronic respiratory failure with hypercapnia (2) COPD exacerbation Status: Acute Assessment & Plan: IV solumedrol started. Duonebs. Bipap as needed. Ceftriaxone. (3) Atrial fibrillation Status: Chronic Assessment & Plan: Resumed home cardizem, but heart rate still rapid and increasing, Cardiology consulted. (4) Atrial fibrillation with RVR Status: Resolved (5) Respiratory acidosis Status: Acute (6) Hyperlipidemia Status: Chronic (7) Hypertension Status: Chronic (8) DVT prophylaxis Status: Acute Assessment & Plan: Home anticoagulant resumed JANIYA SMITH MD Feb 19, 2022 08:39
[2022-02-19] MEDS: RIVAROXABAN 20 MG TABLET (XARELTO) PO SCH (09:38)
--- NOTE | 2022-02-19 11:04 | Consultation-Cardiology ---
HPI-Cardiology Cardiology Consultation Date of Consultation 02/19/22 Date of Admission Time Seen by Provider: 10:58 Indication: Atrial fibrillation with rapid ventricular response HPI 66 years old gentleman with a history of atrial fibrillation, COPD. Has been having upper respiratory tract infection and then started to have worsening shortness of breath, cough. Came into the emergency room for evaluation, was in respiratory failure and he was started on BiPAP. He denied any chest pain. He was noted to be in atrial fibrillation with rapid ventricular response. On my evaluation was laying down in bed on oxygen nasal cannula, still having cough and shortness of breath. Home Medications & Allergies Allergies: Coded Allergies: No Known Drug Allergies (Unverified , 03/17/12) Home Medication List Reviewed: Yes [id number] Hx Patient Social History Marital Status: Employed/Student: employed Smoking Status: Current Everyday Smoker Type Used: Cigarettes 2nd Hand Smoke Exposure: Yes Recent Hopitalizations: No Have you traveled recently?: No Alcohol Use?: Yes (12 pack per week at most) Substance type: Marijuana (history of smoking, uses gummies recently) Immunizations Up To Date Tetanus Booster (TDap): Unknown Date of Pneumonia Vaccine: Oct 20, 2011 Date of Influenza Vaccine: Nov 15, 2020 Past Medical History Discussed below Family Medical History Significant Family History: Heart Disease (sister from [place] at age 62), Cancer (father with bile duct cancer; sister dx with breast cancer in late 70s), Lung Disease (mother , emphysema) Family History: Asthma 19 MOTHER Cancer of extrahepatic bile ducts 19 FATHER Diabetes mellitus G8 SISTER FH: COPD (chronic obstructive pulmonary disease) 19 MOTHER Review of Systems-General Review of Systems Constitutional: see HPI, malaise, weakness EENTM: see HPI, no symptoms reported Respiratory: see HPI, cough (chronic productive every morning, no change), dyspnea on exertion, short of breath Cardiovascular: see HPI; No chest pain, No edema, No Hx of Intervention; p alpitations; No syncope, No vascular heart diseas, No other Gastrointestinal: see HPI; No abdominal pain, No constipation, No diarrhea Genitourinary: see HPI; No dysuria Musculoskeletal: no symptoms reported, see HPI Skin: no symptoms reported, see HPI Psychiatric/Neurological: See HPI; Denies Headache Reviewed Test Results Reviewed Test Results Lab Laboratory Tests Test 02/18/22 17:30 02/18/22 17:45 02/18/22 17:58 02/18/22 20:08 Range/Units White Blood Count 11.6 H 4.3-11.0 10^3/uL Red Blood Count 4.23 L 4.30-5.52 10^6/uL Hemoglobin 15.2 13.3-17.7 g/dL Hematocrit 45 40-54 % Mean Corpuscular Volume 107 H 80-99 fL Mean Corpuscular Hemoglobin 36 H 25-34 pg Mean Corpuscular Hemoglobin Concent 34 32-36 g/dL Red Cell Distribution Width 13.6 10.0-14.5 % Platelet Count 146 130-400 10^3/uL Mean Platelet Volume 10.8 9.0-12.2 fL Immature Granulocyte % (Auto) 0 % Neutrophils (%) (Auto) 81 H 42-75 % Lymphocytes (%) (Auto) 8 L 12-44 % Monocytes (%) (Auto) 10 0-12 % Eosinophils (%) (Auto) 0 0-10 % Basophils (%) (Auto) 0 0-10 % Neutrophils # (Auto) 9.3 H 1.8-7.8 10^3/uL Lymphocytes # (Auto) 1.0 1.0-4.0 10^3/uL Monocytes # (Auto) 1.2 H 0.0-1.0 10^3/uL Eosinophils # (Auto) 0.0 0.0-0.3 10^3/uL Basophils # (Auto) 0.0 0.0-0.1 10^3/uL Immature Granulocyte # (Auto) 0.0 0.0-0.1 10^3/uL Prothrombin Time 26.4 H 12.2-14.7 SEC INR Comment 2.4 H 0.8-1.4 Activated Partial Thromboplast Time 46 H 24-35 SEC D-Dimer 2.04 H 0.00-0.49 UG/ML Sodium Level 138 135-145 MMOL/L Potassium Level 4.0 3.6-5.0 MMOL/L Chloride Level 98 98-107 MMOL/L Carbon Dioxide Level 26 21-32 MMOL/L Anion Gap 14 5-14 MMOL/L Blood Urea Nitrogen 10 7-18 MG/DL Creatinine 0.81 0.60-1.30 MG/DL Estimat Glomerular Filtration Rate 97 BUN/Creatinine Ratio 12 Glucose Level 89 70-105 MG/DL Calcium Level 10.1 8.5-10.1 MG/DL Corrected Calcium 10.1 8.5-10.1 MG/DL Magnesium Level 1.7 1.6-2.4 MG/DL Total Bilirubin 1.2 H 0.1-1.0 MG/DL Aspartate Amino Transf (AST/SGOT) 31 5-34 U/L Alanine Aminotransferase (ALT/SGPT) 31 0-55 U/L Alkaline Phosphatase 120 40-136 U/L Total Creatine Kinase 40 30-200 U/L Creatine Kinase MB 2.7 <6.6 NG/ML Myoglobin 63.4 10.0-92.0 NG/ML Troponin I < 0.028 <0.028 NG/ML B-Type Natriuretic Peptide 172.0 H <100.0 PG/ML Total Protein 8.1 6.4-8.2 GM/DL Albumin 4.0 3.2-4.5 GM/DL Blood Gas Puncture Site L RADIAL Blood Gas Patient Temperature 36.2 Arterial Blood pH 7.32 *L 7.37-7.43 Arterial Blood Partial Pressure CO2 59 H 35-45 MMHG Arterial Blood Partial Pressure O2 36 *L 79-93 MMHG Arterial Blood HCO3 30 H 23-27 MMOL/L Arterial Blood Total CO2 32.0 H 21.0-31.0 MMOL/L Arterial Blood Oxygen Saturation 65 L 94-100 % Arterial Blood Base Excess 4.3 H -2.5-2.5 MMOL/L Harris Test NA Blood Gas Ventilator Setting NO Blood Gas Inspired Oxygen 3L Influenza Type A (RT-PCR) Not Detected Not Detecte Influenza Type B (RT-PCR) Not Detected Not Detecte SARS-CoV-2 RNA (RT-PCR) Not Detected Not Detecte Urine Color YELLOW Urine Clarity CLEAR Urine pH 6.0 5-9 Urine Specific [employer] 1.025 H 1.016-1.022 Urine Protein 2+ H NEGATIVE Urine Glucose (UA) NEGATIVE NEGATIVE Urine Ketones NEGATIVE NEGATIVE Urine Nitrite NEGATIVE NEGATIVE Urine Bilirubin NEGATIVE NEGATIVE Urine Urobilinogen 1.0 < = 1.0 MG/DL Urine Leukocyte Esterase NEGATIVE NEGATIVE Urine RBC (Auto) NEGATIVE NEGATIVE Urine RBC NONE /HPF Urine WBC 2-5 /HPF Urine Squamous Epithelial Cells NONE /HPF Urine Crystals NONE /LPF Urine Bacteria TRACE /HPF Urine Casts NONE /LPF Urine Mucus NEGATIVE /LPF Urine Culture Indicated NO Test 02/19/22 04:36 02/19/22 06:30 Range/Units White Blood Count 7.8 4.3-11.0 10^3/uL Red Blood Count 3.70 L 4.30-5.52 10^6/uL Hemoglobin 13.2 L 13.3-17.7 g/dL Hematocrit 39 L 40-54 % Mean Corpuscular Volume 105 H 80-99 fL Mean Corpuscular Hemoglobin 36 H 25-34 pg Mean Corpuscular Hemoglobin Concent 34 32-36 g/dL Red Cell Distribution Width 13.5 10.0-14.5 % Platelet Count 131 130-400 10^3/uL Mean Platelet Volume 10.7 9.0-12.2 fL Immature Granulocyte % (Auto) 0 % Neutrophils (%) (Auto) 93 H 42-75 % Lymphocytes (%) (Auto) 5 L 12-44 % Monocytes (%) (Auto) 2 0-12 % Eosinophils (%) (Auto) 0 0-10 % Basophils (%) (Auto) 0 0-10 % Neutrophils # (Auto) 7.2 1.8-7.8 10^3/uL Lymphocytes # (Auto) 0.4 L 1.0-4.0 10^3/uL Monocytes # (Auto) 0.1 0.0-1.0 10^3/uL Eosinophils # (Auto) 0.0 0.0-0.3 10^3/uL Basophils # (Auto) 0.0 0.0-0.1 10^3/uL Immature Granulocyte # (Auto) 0.0 0.0-0.1 10^3/uL Neutrophils % (Manual) 91 % Lymphocytes % (Manual) 6 % Monocytes % (Manual) 0 % Band Neutrophils 3 % Percent Immature Platelet Fraction 9.3 H 0.0-7.6 % Macrocytosis SLIGHT Sodium Level 137 135-145 MMOL/L Potassium Level 4.7 3.6-5.0 MMOL/L Chloride Level 101 98-107 MMOL/L Carbon Dioxide Level 26 21-32 MMOL/L Anion Gap 10 5-14 MMOL/L Blood Urea Nitrogen 13 7-18 MG/DL Creatinine 0.83 0.60-1.30 MG/DL Estimat Glomerular Filtration Rate 97 BUN/Creatinine Ratio 16 Glucose Level 197 H 70-105 MG/DL Calcium Level 9.4 8.5-10.1 MG/DL Corrected Calcium 10.0 8.5-10.1 MG/DL Phosphorus Level 2.4 2.3-4.7 MG/DL Magnesium Level 1.6 1.6-2.4 MG/DL Total Bilirubin 0.6 0.1-1.0 MG/DL Aspartate Amino Transf (AST/SGOT) 29 5-34 U/L Alanine Aminotransferase (ALT/SGPT) 30 0-55 U/L Alkaline Phosphatase 97 40-136 U/L Total Protein 6.5 6.4-8.2 GM/DL Albumin 3.2 3.2-4.5 GM/DL Blood Gas Puncture Site RRAD Blood Gas Patient Temperature 37.0 Arterial Blood pH 7.39 7.37-7.43 Arterial Blood Partial Pressure CO2 48 H 35-45 MMHG Arterial Blood Partial Pressure O2 104 H 79-93 MMHG Arterial Blood HCO3 28 H 23-27 MMOL/L Arterial Blood Total CO2 29.8 21.0-31.0 MMOL/L Arterial Blood Oxygen Saturation 99 94-100 % Arterial Blood Base Excess 3.7 H -2.5-2.5 MMOL/L Harris Test YES-POS Blood Gas Ventilator Setting NO Blood Gas Inspired Oxygen 30% Radiology CXR 02/18/22: IMPRESSION: Background chronic obstructive pulmonary disease with associated chronic interstitial lung changes. Improved opacities within the right upper and lower lung when compared to the prior examination from December 2021. Findings likely relate to improving pneumonia. No new focal infiltrate. Mild cardiomegaly without pulmonary vascular congestion. Physical Exam Physical Exam Vital Signs Vital Signs - First Documented 02/18/22 02/18/22 17:21 21:29 Temp 36.6 Pulse 94 Resp 18 B/P (MAP) 150/80 (103) FiO2 30 Capillary Refill : Less Than 3 Seconds Height, Weight, BMI Height: 6'4.00" Weight: 154lbs. 2.0oz. [id number]; 21.88 BMI Method:Stated General Appearance: Cachetic, Mild Distress Eyes: Bilateral Eye Normal Inspection, Bilateral Eye PERRL, Bilateral Eye EOMI HEENT: PERRL/EOMI, TMs Normal, Normal ENT Inspection, Pharynx Normal, Moist Mucous Membranes Neck: Full Range of Motion, Normal Inspection, Non Tender, Supple, Carotid Bruit Respiratory: Chest Non Tender, No Accessory Muscle Use, No Respiratory Distress, Crackles, Decreased Breath Sounds Cardiovascular: No Edema, No JVD, Normal Peripheral Pulses, Systolic Murmur, Irregularly Irregular, Tachycardia Gastrointestinal: Normal Bowel Sounds, No Organomegaly, No Pulsatile Mass, Non Tender, Soft Back: Normal Inspection, No CVA Tenderness, No Vertebral Tenderness Extremity: Normal Capillary Refill, Normal Inspection, Normal Range of Motion, Non Tender, No Calf Tenderness, No Pedal Edema Neurologic/Psychiatric: Alert, Oriented x3, No Motor/Sensory Deficits, Normal Mood/Affect Skin: Normal Color, Warm/Dry Lymphatic: No Adenopathy A/P-Cardiology Admission Diagnosis Acute respiratory failure Atrial fibrillation with rapid ventricular response COPD Hypertension Assessment/Plan Acute respiratory failure, acute exacerbation of COPD. Patient has been maintained on oxygen at home. Was on BiPAP earlier, currently back on oxygen nasal cannula Improving at this time and maintained on oxygen. Atrial fibrillation with rapid ventricular response, known to have persistent atrial fibrillation, History of ablation in April [address] Mccabe. Had multiple cardiac arrests, complex hospitalization in October 2017. Maintained on Cardizem and Toprol and Xarelto for rate control. Currently tachycardic, I will start Cardizem drip and titrate to achieve adequate heart rate control. Coronary artery disease, history of stenting using 3.020 mm Promus stent to the right coronary artery done in March 2012. Stress test done on November 01, 2019 showing Baseline atrial fibrillation, decreased uptake involving the mid to apical inferior wall with no reversibility, ejection fraction 40 percent probably due to tachycardia. COPD, using oxygen at night, had a complex hospitalization with Legionella pneumonia and CMV, respiratory failure, multiple cardiac arrest in October 2017. loculated pneumonia underwent right lung decortication on January 28, 2018 resulted in hydropneumothorax and marked emphysema and had prolonged chest tube placement. Continue to monitor, follows with Dr. Calderon Congestive heart failure, chronic left ventricular systolic dysfunction. 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 Continue to monitor Abdominal aortic aneurysm, had a stent placed by Dr. Hogue done in June 2021. I will try to obtain copy of the results Chest pain nonspecific etiology, resolved, stress test from April 24, 2015 revealed diaphragmatic attenuation with typical male pattern. No significant ischemia or infarct. Hypertension, reporting good blood pressure control, he has been monitored during the cardiac rehab phase. I instructed him to continue to monitor his blood pressure closely and report to me if he started having elevated blood pressure Hyperlipidemia, continue to monitor lipids Tobaccoism, has stopped smoking. Encouraged to continue with smoking cessation Alcoholism, has stopped drinking, encouraged to avoid any alcohol Peptic ulcer disease, esophagitis, managed by primary care physician Nonobstructive carotid artery stenosis-most recent carotid duplex done in [facility] 2020, continue to monitor AIDAN PASTOR MD Feb 19, 2022 11:04
[2022-02-19] MEDS: dilTIAZem DRIP PRE-MIX 125 ML IV SCH ×2 (11:29→18:06)
[2022-02-19] MEDS: NS IV 1000 ML 1,000 ML IV SCH (11:36)
[2022-02-19] MEDS ORDERED: DILT300C52 PO (11:38)
[2022-02-19] MEDS ORDERED: ROFL500T9 PO (11:38)
[2022-02-19] MEDS ORDERED: [UNRECOGNIZED DRUG - OTHER] PO (11:38)
[2022-02-19] MEDS ORDERED: [UNRECOGNIZED DRUG - OTHER] (11:38)
[2022-02-19] MEDS ORDERED: BALANCE OF NATURE PO (11:38)
[2022-02-19] MEDS ORDERED: meTOproloL SUCCINATE 50 MG (TOPROL XL) TAB PO NR (18:00)
[2022-02-19 19:25] VITALS: BP 123/93
[2022-02-19] MEDS ORDERED: cefTRIAXone 1,000 MG VIAL IM SCH (20:00)
[2022-02-19] MEDS: cefTRIAXone 1 GM/50 ML (PRE-MIX) IV SCH (20:01)
[2022-02-19] MEDS: LORazepam INJ 2 MG/ML (ATIVAN) VIAL IV PRN (20:01)
[2022-02-19] MEDS ORDERED: NON-FORMULARY MEDICATION 1 EA EA (Budesonide/Glycopyr/Formoterol (Breztri Aerosphere Inhal INH SCH (21:00)
[2022-02-19] MEDS ORDERED: AMIODARONE FOR BOLUS 150 MG in NS (IVPB) 100 ML IV ONE (21:00)
[2022-02-19] MEDS ORDERED: AMIODARONE (Pyxis Kit Only) DRIP 450 MG/9 ML VIAL IV ONE (21:05)
[2022-02-19] MEDS ORDERED: NORMAL SALINE 250 ML ONE (21:06)
--- NOTE | 2022-02-19 21:14 | Diagnostic Imaging Report ---
INDICATION: Shortness of breath. COMPARISON: 02/18/2022. TECHNIQUE: Single radiograph of the chest dated February 19, 2022. FINDINGS: The cardiac silhouette is stable. No significant pulmonary vascular congestion. Significant background chronic obstructive pulmonary disease is again noted with associated pulmonary hyperinflation. Chronic interstitial opacities are present. However, new opacities are identified within the right lung base with associated trace right pleural fluid. No significant left pleural effusion. No pneumothorax. Osseous structures appear stable. IMPRESSION: Advanced background chronic obstructive pulmonary disease and emphysematous changes with associated background chronic interstitial lung disease. New right basilar opacities with associated trace right pleural effusion are suspect for developing atelectasis versus infiltrate. Dictated by: Dictated on workstation # [id number]
[2022-02-19] MEDS: AMIODARONE INJECTION 450 MG in NORMAL SALINE 250 ML IV SCH (21:18)
[2022-02-20] MEDS: methylPREDNISolone 125 MG (Solu-MEDROL) VIAL IVP SCH ×3 (01:08→11:11)
[2022-02-20] MEDS: dilTIAZem DRIP PRE-MIX 125 ML IV SCH ×4 (01:09→17:34)
[2022-02-20 04:02] VITALS: BP 115/64
[2022-02-20] MEDS ORDERED: AMIODARONE (Pyxis Kit Only) DRIP 450 MG/9 ML VIAL IV ONE (04:31)
[2022-02-20] MEDS ORDERED: NORMAL SALINE 250 ML ONE (04:31)
[2022-02-20] MEDS: AMIODARONE INJECTION 450 MG in NORMAL SALINE 250 ML IV SCH ×2 (04:42→04:44)
[2022-02-20 04:46] LABS: BASOPHILS % (AUTO) 0 % (0-10); EOSINOPHILS % (AUTO) 0 % (0-10); HEMATOCRIT 38 % (40-54); HEMOGLOBIN 12.5 g/dL (13.3-17.7); LYMPHOCYTES # (AUTO) 0.4 10^3/uL (1.0-4.0); LYMPHOCYTES % (AUTO) 4 % (12-44); MEAN CORPUSCULAR HEMOGLOBIN 35 pg (25-34); MEAN CORPUSCULAR HGB CONC 33 g/dL (32-36); MEAN CORPUSCULAR VOLUME 106 fL (80-99); MONOCYTES # (AUTO) 0.5 10^3/uL (0.0-1.0); MONOCYTES % (AUTO) 6 % (0-12); NEUTROPHILS # (AUTO) 8.6 10^3/uL (1.8-7.8); NEUTROPHILS % (AUTO) 90 % (42-75); PLATELET COUNT 146 10^3/uL (130-400); WHITE BLOOD COUNT 9.6 10^3/uL (4.3-11.0)
[2022-02-20] MEDS ORDERED: FUROSEMIDE 40 MG/4 ML INJ (LASIX) IVP ONE (05:00)
[2022-02-20 05:08] LABS: ALANINE AMINOTRANSFERASE 49 U/L (0-55); ALBUMIN 3.1 GM/DL (3.2-4.5); ALKALINE PHOSPHATASE 86 U/L (40-136); BILIRUBIN,TOTAL 0.4 MG/DL (0.1-1.0); BUN/CREATININE RATIO 21; CALCIUM 9.1 MG/DL (8.5-10.1); CARBON DIOXIDE 23 MMOL/L (21-32); CHLORIDE 106 MMOL/L (98-107); CREATININE SERUM 0.77 MG/DL (0.60-1.30); GFR ESTIMATED 99; GLUCOSE 197 MG/DL (70-105); MAGNESIUM 1.6 MG/DL (1.6-2.4); PHOSPHORUS 1.9 MG/DL (2.3-4.7); POTASSIUM 3.6 MMOL/L (3.6-5.0); SODIUM 138 MMOL/L (135-145); TOTAL PROTEIN 6.3 GM/DL (6.4-8.2)
[2022-02-20] MEDS: RT--FLUTICASONE/SALMETEROL 232-14 (AIRDUO RespiCLICK) IH SCH ×2 (06:50→20:00)
[2022-02-20] MEDS: UMECLIDINIUM BROMIDE (INCRUSE ELLIPTA) 7'S IH SCH (06:51)
[2022-02-20] MEDS ORDERED: NS IV 500 ML 500 ML IV PRN (07:00)
[2022-02-20] MEDS: POTASSIUM CL 10MEQ/50ML IVPB 50 ML IV SCH ×2 (08:06→08:09)
[2022-02-20] MEDS: MAGNESIUM 1 GM/100 ML IVPB 100 ML IV SCH ×2 (08:07→08:09)
[2022-02-20] MEDS: meTOprolol SUCCINATE 100 MG (TOPROL XL) TAB PO SCH (08:09)
[2022-02-20] MEDS: RIVAROXABAN 20 MG TABLET (XARELTO) PO SCH (08:10)
[2022-02-20] MEDS: FAMOTIDINE 20 MG (PEPCID) TABLET PO SCH ×2 (08:10→21:13)
[2022-02-20] MEDS: ROFLUMILAST 500 MCG TAB (DALIRESP) PO SCH (08:10)
[2022-02-20] MEDS: LORATADINE (CLARITIN) 10 MG TAB PO SCH (08:10)
[2022-02-20] MEDS: AtorvaSTATin TABLET 10 MG TABLET PO SCH (08:10)
[2022-02-20] MEDS ORDERED: NON-FORMULARY MEDICATION 1 EA EA (Cetirizine HCl 10 MG) PO SCH (09:00)
--- NOTE | 2022-02-20 09:43 | Tele-ICU Progress Note ---
Subjective Date Seen by a Provider: Feb 20, 2022 Subjective/Events-last exam This virtual visit was conducted using real time audio/video. Thank you for asking us to see this patient for respiratory insufficiency due to AECOPD. Also afib/RVR. PMH: COPD/home O2 3.5 LPM, HTN, HL, CAD/stent, afib/ablation on xarelto. PE: Cachectic,VSS. aFIB 80-85 bpm. O2 sat 95% on 4 lpm. HEENT: No obvious masses, adenopathy or JVD. Chest:diminished, coarse w wheezing on auscultation. CV: S1 S2 No murmur or added sounds. Abd: Non-tender. Bowel sounds Y. : Unremarkable. Meier Y. MALE IMPERSONATOR/psychiatric: Grossly intact. No obvious focal findings. Extremities:No edema. Capillary refill < 3 seconds. Skin: unremarkable. Results: Elevated BG 197. AB.39/48/104 on 30%. CXR: Hyperinflated, R infilt. Available chart/ vitals / labs / images reviewed. Video assessment done using teleICU camera, rest of exam as per RN, ER LOOM STARTER. A/P: Respiratory insufficiency: Continue present management with medrol, duonebs, NC, airduo, incruse, daliresp. Monitor for increasing oxygenation needs and/or need for intubation. Cont dilt., amiod., abx, pepcid, metop., statin. Discussed with RN Karen . Asked RN to reach out to eICU if any questions or concerns later. Time spent with patient/coordination of care with other health professionals (ne ns): 22. Sepsis Event Evaluation Height, Weight, BMI Height: 6'4.00" Weight: 154lbs. 2.0oz. [id number]; 21.88 BMI Method:Stated Exam Exam Patient acknowledged, consented, and participated in this virtual visit which was conducted using real time audio/video Vital Signs Date Time Temp Pulse Resp B/P (MAP) Pulse Ox O2 Delivery O2 Flow Rate FiO2 02/20/22 08:00 113 117/97 (104) 96 OxyMask 4.00 02/20/22 07:49 36.1 02/20/22 07:39 OxyMask 4.00 02/20/22 07:31 105 131/78 02/20/22 07:00 120 02/20/22 07:00 86 128/79 (95) 97 NIV Bilevel 30.00 02/20/22 06:51 95 Nasal Cannula 4.00 02/20/22 06:00 89 24 131/78 (95) 99 NIV Bilevel 30.00 02/20/22 05:00 115 24 117/69 (85) 97 NIV Bilevel 30.00 02/20/22 04:02 86 24 96 30.00 02/20/22 04:00 96 NIV Bilevel 30 02/20/22 04:00 102 25 120/71 (87) 98 NIV Bilevel 30.00 02/20/22 03:00 90 27 115/69 (84) 98 NIV Bilevel 30.00 02/20/22 02:00 122 24 115/64 (81) 98 NIV Bilevel 30.00 02/20/22 01:15 35.9 02/20/22 01:09 114 123/93 02/20/22 01:00 123 02/20/22 01:00 121 23 120/77 (91) 95 NIV Bilevel 30.00 02/20/22 00:00 126 26 109/57 (74) 97 NIV Bilevel 30.00 02/19/22 23:59 94 NIV Bilevel 30 02/19/22 23:00 135 28 113/91 (98) 98 NIV Bilevel 30.00 02/19/22 22:00 158 21 134/114 (121) 98 NIV Bilevel 30.00 02/19/22 21:00 122 23 137/83 (101) 97 NIV Bilevel 30.00 02/19/22 20:00 93 NIV Bilevel 30 02/19/22 20:00 140 28 139/79 (99) 97 NIV Bilevel 30.00 02/19/22 19:44 36.1 NIV Bilevel 30.00 02/19/22 19:25 114 35 95 30.00 02/19/22 19:00 124 40 123/93 (103) 97 Nasal Cannula 4.00 02/19/22 19:00 116 02/19/22 18:20 Nasal Cannula 4.00 02/19/22 18:06 134 148/77 02/19/22 18:00 113 29 146/88 (107) 96 NIV Bilevel 30.00 02/19/22 17:00 160 22 148/77 (100) 94 NIV Bilevel 30.00 02/19/22 16:35 131 129/79 02/19/22 16:25 36.4 02/19/22 16:00 93 Nasal Cannula 4.00 02/19/22 16:00 112 31 149/136 (140) 90 NIV Bilevel 30.00 02/19/22 15:00 121 18 127/114 (118) 95 NIV Bilevel 30.00 02/19/22 14:49 95 Nasal Cannula 4.00 02/19/22 14:00 98 17 143/108 (120) 96 NIV Bilevel 30.00 02/19/22 13:00 107 02/19/22 13:00 115 30 123/88 (100) 97 NIV Bilevel 30.00 02/19/22 12:00 133 25 94/74 (81) 98 NIV Bilevel 30.00 02/19/22 12:00 96 NIV Bilevel 30 02/19/22 11:58 NIV Bilevel 30.00 02/19/22 11:54 36.4 02/19/22 11:29 133 137/84 02/19/22 11:29 133 137/84 02/19/22 11:00 141 33 116/80 (92) 96 Nasal Cannula 4.00 02/19/22 10:25 96 Nasal Cannula 4.00 02/19/22 10:00 133 44 137/84 (101) 94 Nasal Cannula 4.00 I & O 02/20/22 07:00 Intake Total 3875 ml Output Total 1100 ml Balance 2775 ml Height & Weight Height: 6'4.00" Weight: 154lbs. 2.0oz. 69.186179pq; 21.88 BMI Method:Stated General Appearance: Cachetic, Mild Distress HEENT: PERRL/EOMI, TMs Normal, Normal ENT Inspection, Pharynx Normal, Moist Mucous Membranes Neck: Full Range of Motion, Normal Inspection, Non Tender, Supple, Carotid Bruit Respiratory: Chest Non Tender, No Accessory Muscle Use, No Respiratory Distress, Crackles, Decreased Breath Sounds Cardiovascular: No Edema, No JVD, Normal Peripheral Pulses, Systolic Murmur, Irregularly Irregular, Tachycardia Capillary Refill: Less Than 3 Seconds Peripheral Pulses: 1+ Dorsalis Pedis (R), 1+ Left Dors-Pedis (L) (See free text) Gastrointestinal: normal bowel sounds, non tender, soft Extremity: Normal Capillary Refill, Normal Inspection, Normal Range of Motion, Non Tender, No Calf Tenderness, No Pedal Edema Neurologic/Psychiatric: Alert, Oriented x3, No Motor/Sensory Deficits, Normal Mood/Affect Skin: Normal Color, Warm/Dry Lymphatic: No Adenopathy Results Lab Laboratory Tests 02/18/22 17:30 02/19/22 04:36 02/20/22 04:13 Assessment/Plan Assessment/Plan see free text. Critical Care: Critically Ill Patient ANTON DILL MD Feb 20, 2022 09:43
--- NOTE | 2022-02-20 10:10 | Cardiology Progress Note ---
Progress Note-Cardiology Events since last exam Date Seen by Provider: Feb 20, 2022 Time Seen by Provider: 10:06 Events since last exam We are following him due to permanent atrial fibrillation. His breathing is improved but not quite back to baseline. He denies chest discomfort, palpitations, syncope, or ankle edema. Yesterday he was more short of breath and became more tachycardic. I ended up placing him on IV amiodarone infusion late last evening. Certain portions of this document may have been dictated utilizing voice recognition technology. Inherent to this technology, typographical and grammati liam errors may exist. As much as I am diligent to identify and correct these mistakes, some errors may remain in the document. Vitals Last set of Vitals Signs Vital Signs 02/20/22 02/20/22 02/20/22 02/20/22 02/20/22 04:00 14:00 16:00 16:03 16:16 Temp 36.5 Pulse 85 Resp 30 B/P (MAP) 112/75 (87) Pulse Ox 95 O2 Delivery OxyMask O2 Flow Rate 4.00 FiO2 30 Labs Labs Laboratory Tests 02/20/22 04:13 Exam Vital Signs Vital Signs Date Time Temp Pulse Resp B/P (MAP) Pulse Ox O2 Delivery O2 Flow Rate FiO2 02/20/22 16:16 36.5 02/20/22 16:03 95 OxyMask 4.00 02/20/22 16:00 85 112/75 (87) 02/20/22 14:00 30 02/20/22 04:00 30 Physical Exam General: Alert. No acute distress. He appears chronically ill and older than his stated age. Eye: No xanthelasma. HENT: Normocephalic. Neck: Jugular venous pressure does not appear elevated. Respiratory: Lungs have diffuse wheezes bilaterally. Respirations are non- labored. Breath sounds are equal. Symmetrical chest wall expansion. Cardiovascular: Tachycardia with irregular rhythm. Distant S1/S2. No murmur. No gallop. No edema. Gastrointestinal: Soft. Normal bowel sounds. Skin: Warm. Dry. Neurologic: Alert and oriented to person, place, time. Cranial nerves 3-11 grossly intact. Psychiatric: Cooperative. Appropriate mood & affect. Labs Laboratory Tests Test 02/19/22 21:50 02/20/22 04:13 02/20/22 15:00 Range/Units Troponin I < 0.028 < 0.028 < 0.028 <0.028 NG/ML White Blood Count 9.6 4.3-11.0 10^3/uL Red Blood Count 3.59 L 4.30-5.52 10^6/uL Hemoglobin 12.5 L 13.3-17.7 g/dL Hematocrit 38 L 40-54 % Mean Corpuscular Volume 106 H 80-99 fL Mean Corpuscular Hemoglobin 35 H 25-34 pg Mean Corpuscular Hemoglobin Concent 33 32-36 g/dL Red Cell Distribution Width 13.5 10.0-14.5 % Platelet Count 146 130-400 10^3/uL Mean Platelet Volume 11.0 9.0-12.2 fL Immature Granulocyte % (Auto) 0 % Neutrophils (%) (Auto) 90 H 42-75 % Lymphocytes (%) (Auto) 4 L 12-44 % Monocytes (%) (Auto) 6 0-12 % Eosinophils (%) (Auto) 0 0-10 % Basophils (%) (Auto) 0 0-10 % Neutrophils # (Auto) 8.6 H 1.8-7.8 10^3/uL Lymphocytes # (Auto) 0.4 L 1.0-4.0 10^3/uL Monocytes # (Auto) 0.5 0.0-1.0 10^3/uL Eosinophils # (Auto) 0.0 0.0-0.3 10^3/uL Basophils # (Auto) 0.0 0.0-0.1 10^3/uL Immature Granulocyte # (Auto) 0.0 0.0-0.1 10^3/uL Sodium Level 138 135-145 MMOL/L Potassium Level 3.6 3.6-5.0 MMOL/L Chloride Level 106 98-107 MMOL/L Carbon Dioxide Level 23 21-32 MMOL/L Anion Gap 9 5-14 MMOL/L Blood Urea Nitrogen 16 7-18 MG/DL Creatinine 0.77 0.60-1.30 MG/DL Estimat Glomerular Filtration Rate 99 BUN/Creatinine Ratio 21 Glucose Level 197 H 70-105 MG/DL Calcium Level 9.1 8.5-10.1 MG/DL Corrected Calcium 9.8 8.5-10.1 MG/DL Phosphorus Level 1.9 L 2.3-4.7 MG/DL Magnesium Level 1.6 1.6-2.4 MG/DL Total Bilirubin 0.4 0.1-1.0 MG/DL Aspartate Amino Transf (AST/SGOT) 52 H 5-34 U/L Alanine Aminotransferase (ALT/SGPT) 49 0-55 U/L Alkaline Phosphatase 86 40-136 U/L Total Protein 6.3 L 6.4-8.2 GM/DL Albumin 3.1 L 3.2-4.5 GM/DL Diagnosis/Problems Diagnosis/Problems (1) Permanent atrial fibrillation Assessment & Plan: He has had atrial fibrillation going back at least several years. He developed significant tachycardia last night which improved with IV amiodarone. He is back on his oral doses of metoprolol and diltiazem CD. I will discontinue the IV amiodarone when the current bag is completed. Tomorrow we will attempt to wean off the intravenous Cardizem. He should continue rivaroxaban for stroke prophylaxis. (2) Acute on chronic heart failure with preserved ejection fraction (HFpEF) Assessment & Plan: He may have had some slight decompensation of his heart failure from the previous IV fluids he had received. He received 1 dose of IV furosemide earlier this morning. We will reassess in the morning and consider whether or not to start oral furosemide. (3) Coronary artery disease without angina pectoris Assessment & Plan: He has not been having any angina. He is on beta-manjit and statin medication. He is not on aspirin because he is on rivaroxaban for the atrial fibrillation. (4) Pulmonary hypertension Assessment & Plan: Most likely due to his chronic obstructive pulmonary disease. He would benefit from home oxygen if not already using this. This will condition will need to be followed longitudinally. (5) Acute and chronic respiratory failure with hypoxia Status: Acute Assessment & Plan: Most likely due to an exacerbation of his chronic obstructive pulmonary disease. There may be some superimposed component due to heart failure. We will proceed as above. (6) Primary hypertension Assessment & Plan: He has been reasonably normotensive on the current medication. (7) Mixed hyperlipidemia Assessment & Plan: Continue statin medication. (8) Chronic obstructive pulmonary disease Assessment & Plan: This is being managed by the primary team. (9) Cigarette smoker Assessment & Plan: He needs to quit smoking. He states that after this hospitalization, he plans to quit. SAGE DIETZ JR, MD Feb 20, 2022 10:10
--- NOTE | 2022-02-20 13:13 | Progress Note ---
Subjective Subjective/Events-last exam He states his breathing isn't too bad, a little better than yesterday. Continuing to require amiodarone and diltiazem drip. Objective Exam Last Set of Vital Signs Vital Signs Date Time Temp Pulse Resp B/P (MAP) Pulse Ox O2 Delivery O2 Flow Rate FiO2 02/20/22 13:00 104 02/20/22 12:00 94 OxyMask 4.00 02/20/22 12:00 26 119/83 (95) 02/20/22 11:43 36.1 02/20/22 04:00 30 Capillary Refill : Less Than 3 Seconds I&O Intake and Output 02/20/22 00:00 Intake Total 2775 ml Output Total 900 ml Balance 1875 ml Intake Oral 1600 ml IV Total 1175 ml Output Urine Total 900 ml General: Alert HEENT: Atraumatic Lungs: Normal Air Movement, Other (expiratory wheezing) Heart: Other (irregular, tachycardic) Neuro: Normal Speech Psych/Mental Status: Mood NL Results/Procedures Lab Laboratory Tests 02/19/22 21:50: Troponin I < 0.028 02/20/22 04:13: Troponin I < 0.028, White Blood Count 9.6, Red Blood Count 3.59L, Hemoglobin 12.5L, Hematocrit 38L, Mean Corpuscular Volume 106H, Mean Corpuscular Hemoglobin 35H, Mean Corpuscular Hemoglobin Concent 33, Red Cell Distribution Width 13.5, Platelet Count 146, Mean Platelet Volume 11.0, Immature Granulocyte % (Auto) 0, Neutrophils (%) (Auto) 90H, Lymphocytes (%) (Auto) 4L, Monocytes (%) (Auto) 6, Eosinophils (%) (Auto) 0, Basophils (%) (Auto) 0, Neutrophils # (Auto) 8.6H, Lymphocytes # (Auto) 0.4L, Monocytes # (Auto) 0.5, Eosinophils # (Auto) 0.0, Basophils # (Auto) 0.0, Immature Granulocyte # (Auto) 0.0, Sodium Level 138, Potassium Level 3.6, Chloride Level 106, Carbon Dioxide Level 23, Anion Gap 9, Blood Urea Nitrogen 16, Creatinine 0.77, Estimat Glomerular Filtration Rate 99, BUN/Creatinine Ratio 21, Glucose Level 197H, Calcium Level 9.1, Corrected Calcium 9.8, Phosphorus Level 1.9L, Magnesium Level 1.6, Total Bilirubin 0.4, Aspartate Amino Transf (AST/SGOT) 52H, Alanine Aminotransferase (ALT/SGPT) 49, Alkaline Phosphatase 86, Total Protein 6.3L, Albumin 3.1L Microbiology 02/18/22 MRSA Screen - Final, Complete MRSA not isolated Radiology CXR 02/18/22: IMPRESSION: Background chronic obstructive pulmonary disease with associated chronic interstitial lung changes. Improved opacities within the right upper and lower lung when compared to the prior examination from December 2021. Findings likely relate to improving pneumonia. No new focal infiltrate. Mild cardiomegaly without pulmonary vascular congestion. Assessment/Plan Assessment/Plan (1) Respiratory failure Status: Acute Assessment & Plan: Secondary to COPD exacerbation, possible persistent pneumonia. Qualifiers: Qualified Codes: J96.21 - Acute and chronic respiratory failure with hypoxia; J96.22 - Acute and chronic respiratory failure with hypercapnia (2) COPD exacerbation Status: Acute Assessment & Plan: IV solumedrol started. Duonebs. Bipap as needed. Ceftriaxon e. 02/20 change to PO prednisone (3) Atrial fibrillation Status: Chronic Assessment & Plan: Resumed home cardizem, but heart rate still rapid and increasing, Cardiology consulted. Amiodarone drip added as well. (4) Atrial fibrillation with RVR Status: Resolved (5) Respiratory acidosis Status: Acute (6) Hyperlipidemia Status: Chronic (7) Hypertension Status: Chronic (8) DVT prophylaxis Status: Acute Assessment & Plan: Home anticoagulant resumed SANTOS LUDWIG MD Feb 20, 2022 13:13
[2022-02-20] MEDS ORDERED: predniSONE 20 MG TAB PO NR (13:15)
[2022-02-20] MEDS: LORazepam INJ 2 MG/ML (ATIVAN) VIAL IV PRN ×2 (13:57→21:13)
[2022-02-20] MEDS: cefTRIAXone 1 GM/50 ML (PRE-MIX) IV SCH (21:13)
[2022-02-20 22:52] VITALS: BP 111/61
[2022-02-21] MEDS: dilTIAZem DRIP PRE-MIX 125 ML IV SCH ×3 (02:32→21:40)
[2022-02-21 02:33] VITALS: BP 122/86
[2022-02-21] MEDS: LORazepam INJ 2 MG/ML (ATIVAN) VIAL IV PRN ×2 (03:31→21:39)
[2022-02-21 04:49] LABS: BASOPHILS % (AUTO) 0 % (0-10); EOSINOPHILS % (AUTO) 0 % (0-10); HEMATOCRIT 43 % (40-54); LYMPHOCYTES # (AUTO) 0.5 10^3/uL (1.0-4.0); LYMPHOCYTES % (AUTO) 5 % (12-44); MEAN CORPUSCULAR HEMOGLOBIN 35 pg (25-34); MEAN CORPUSCULAR HGB CONC 33 g/dL (32-36); MEAN CORPUSCULAR VOLUME 107 fL (80-99); MEAN PLATELET VOLUME 11.1 fL (9.0-12.2); MONOCYTES # (AUTO) 0.4 10^3/uL (0.0-1.0); MONOCYTES % (AUTO) 4 % (0-12); NEUTROPHILS # (AUTO) 10.9 10^3/uL (1.8-7.8); NEUTROPHILS % (AUTO) 91 % (42-75); PLATELET COUNT 179 10^3/uL (130-400)
[2022-02-21] MEDS: KCL 20 MEQ TAB (K-DUR) PO SCH (05:04)
[2022-02-21] MEDS: MAGNESIUM 1 GM/100 ML IVPB 100 ML IV SCH (05:04)
[2022-02-21] MEDS: POTASSIUM CL 10MEQ/50ML IVPB 50 ML IV SCH (05:04)
[2022-02-21 05:22] LABS: ALBUMIN 3.5 GM/DL (3.2-4.5); BILIRUBIN,TOTAL 0.5 MG/DL (0.1-1.0); CALCIUM 9.5 MG/DL (8.5-10.1); CREATININE SERUM 0.79 MG/DL (0.60-1.30); PHOSPHORUS 2.9 MG/DL (2.3-4.7); POTASSIUM 4.3 MMOL/L (3.6-5.0); TOTAL PROTEIN 7.1 GM/DL (6.4-8.2)
[2022-02-21 07:23] VITALS: BP 131/73
[2022-02-21] MEDS: UMECLIDINIUM BROMIDE (INCRUSE ELLIPTA) 7'S IH SCH (07:23)
[2022-02-21] MEDS: RT--FLUTICASONE/SALMETEROL 232-14 (AIRDUO RespiCLICK) IH SCH ×2 (07:23→19:37)
--- NOTE | 2022-02-21 08:31 | Tele-ICU Progress Note ---
Subjective Date Seen by a Provider: Feb 21, 2022 Time Seen by a Provider: 08:30 Subjective/Events-last exam (Tele-ICU Physician , consultation) Available chart/ vitals / labs / Images reviewed H&P is from ER notes Patient's information available about PMH, allergy reviewed in EMR. ROS as per chart and RN report Video assessment done using teleICU camera, rest of exam as per RN Discussed with RN. This gentleman is a 66-year-old male with past medical history of for coronary artery disease/atrial fibrillation persistent and a failed ablation in 2013, COPD on home oxygen 3-1/2 L, previous history of multiple cardiac arrest with complex hospitalization in October 2017 presented to the emergency room with a complaint of fall cough chest congestion and shortness of breath. He is found to be hypoxic requiring BiPAP ventilation in the emergency room. Also found to have atrial fibrillation with rapid ventricular rate. Subsequently admitted to the intensive care unit. When I first saw the patient he has a heart rate of 120/min and I have ordered Lopressor 2.5 mg IV push x1 to be followed by card iology consultation. Lateral in the hospital course patient is able to come off the BiPAP and currently using 4 L of nasal cannula. He is wheezing. 02/21/2022 ON BIPAP. Apparently has been hallucinating. hx of drinking beer every day . now probably has alcohol withdrawel. started on ciwa scale Impression 1. Acute upper respiratory tract infection with acute exacerbation of COPD 2. Acute and chronic hypoxic respiratory failure 3. Atrial fibrillation with rapid ventricular rate on cardizem drip 4. History of coronary artery disease status post multiple cardiac arrest. Recommendations 1. We will give him IV antibiotics and bronchodilator therapy 2. po prednisone 3. Atrial fibrillation with rapid ventricular rate. cardiology following.currently on cardizem drip at 15 and po lopressor and xarelto 4. Wean oxygen as tolerated 5. Reportedly had a abdominal aortic aneurysm for which she underwent stent placement. 6. Hypertension management per cardiology. care coordination with bedside consultants and primary care physician. Sepsis Event Evaluation Height, Weight, BMI Height: 6'4.00" Weight: 154lbs. 2.0oz. [id number]; 21.88 BMI Method:Stated Exam Exam Patient acknowledged, consented, and participated in this virtual visit which was conducted using real time audio/video Vital Signs Date Time Temp Pulse Resp B/P (MAP) Pulse Ox O2 Delivery O2 Flow Rate FiO2 02/21/22 08:00 114 24 122/77 (92) 95 OxyMask 4.00 02/21/22 07:49 36.6 02/21/22 07:30 NIV Bilevel 30 02/21/22 07:30 NIV Bilevel 30 02/21/22 07:23 104 34 94 30.00 02/21/22 07:00 102 02/21/22 07:00 109 26 128/84 (99) 94 OxyMask 4.00 02/21/22 06:00 92 10 123/74 (90) 94 OxyMask 4.00 02/21/22 05:00 98 22 121/75 (90) 95 OxyMask 4.00 02/21/22 04:00 95 NIV Bilevel 30 02/21/22 04:00 90 15 112/78 (89) 93 OxyMask 4.00 02/21/22 03:39 36.7 02/21/22 03:00 92 28 126/76 (93) 93 OxyMask 4.00 02/21/22 02:33 103 32 91 30.00 02/21/22 02:32 102 111/61 02/21/22 02:00 96 27 132/90 (104) 94 OxyMask 4.00 02/21/22 01:00 93 27 125/92 (103) 93 OxyMask 4.00 02/21/22 01:00 102 02/21/22 00:00 36.5 02/21/22 00:00 83 25 127/77 (94) 95 OxyMask 4.00 02/20/22 23:59 95 NIV Bilevel 30 02/20/22 23:00 83 27 118/81 (93) 96 OxyMask 4.00 02/20/22 22:52 77 24 95 30.00 02/20/22 22:00 76 28 126/72 (90) 96 OxyMask 4.00 02/20/22 21:00 74 26 117/85 (96) 96 OxyMask 4.00 02/20/22 20:00 74 32 120/75 (90) 96 OxyMask 4.00 02/20/22 20:00 96 NIV Bilevel 30 02/20/22 20:00 93 OxyMask 4.00 02/20/22 19:52 36.0 02/20/22 19:00 75 19 116/68 (84) 94 OxyMask 4.00 02/20/22 19:00 75 02/20/22 18:00 92 119/77 (91) 94 OxyMask 4.00 02/20/22 17:34 85 112/75 02/20/22 17:00 90 113/70 (84) 95 OxyMask 4.00 02/20/22 16:16 36.5 02/20/22 16:03 95 OxyMask 4.00 02/20/22 16:00 85 112/75 (87) 95 OxyMask 4.00 02/20/22 15:00 83 107/68 (81) 97 OxyMask 4.00 02/20/22 14:00 89 30 135/73 (93) 93 OxyMask 4.00 02/20/22 13:00 114 21 120/78 (92) 95 OxyMask 4.00 02/20/22 13:00 104 02/20/22 12:00 94 OxyMask 4.00 02/20/22 12:00 87 26 119/83 (95) 97 OxyMask 4.00 02/20/22 11:43 36.1 02/20/22 11:39 112 121/78 02/20/22 11:00 112 121/78 (92) 97 OxyMask 4.00 02/20/22 10:00 121 127/96 (106) 96 OxyMask 4.00 02/20/22 09:00 118 150/86 (107) 93 OxyMask 4.00 I & O 02/21/22 07:00 Intake Total 2200 ml Output Total 2600 ml Balance -400 ml Height & Weight Height: 6'4.00" Weight: 154lbs. 2.0oz. 69.018671vw; 21.88 BMI Method:Stated General Appearance: Cachetic, Mild Distress HEENT: PERRL/EOMI, TMs Normal, Normal ENT Inspection, Pharynx Normal, Moist Mucous Membranes Neck: Full Range of Motion, Normal Inspection, Non Tender, Supple, Carotid Bruit Respiratory: Chest Non Tender, No Accessory Muscle Use, No Respiratory Distress, Crackles, Decreased Breath Sounds Cardiovascular: No Edema, No JVD, Normal Peripheral Pulses, Systolic Murmur, Irregularly Irregular, Tachycardia Capillary Refill: Less Than 3 Seconds Peripheral Pulses: 1+ Dorsalis Pedis (R), 1+ Left Dors-Pedis (L) (See free text) Gastrointestinal: normal bowel sounds, non tender, soft Extremity: Normal Capillary Refill, Normal Inspection, Normal Range of Motion, Non Tender, No Calf Tenderness, No Pedal Edema Neurologic/Psychiatric: Alert, Oriented x3, No Motor/Sensory Deficits, Normal Mood/Affect Skin: Normal Color, Warm/Dry Lymphatic: No Adenopathy Results Lab Laboratory Tests 02/20/22 04:13 02/21/22 04:19 Assessment/Plan Assessment/Plan as above Critical Care: Critically Ill Patient Time spent with patient (mins): 25 ALIX BENTLEY MD Feb 21, 2022 08:31
--- NOTE | 2022-02-21 08:32 | Diagnostic Imaging Report ---
EXAM: CHEST 1 VIEW, AP/PA ONLY. INDICATION: Shortness of air. COMPARISON: 02/19/2022. FINDINGS: Hyperinflation. Normal heart size and central pulmonary vascularity. No focal pulmonary opacity. No pleural effusion or pneumothorax. IMPRESSION: 1. COPD. 2. No acute cardiopulmonary findings. Dictated by: Dictated on workstation # [id number]
[2022-02-21] MEDS: meTOprolol SUCCINATE 100 MG (TOPROL XL) TAB PO SCH (08:46)
[2022-02-21] MEDS: FAMOTIDINE 20 MG (PEPCID) TABLET PO SCH ×2 (08:46→20:14)
[2022-02-21] MEDS: AtorvaSTATin TABLET 10 MG TABLET PO SCH (08:46)
[2022-02-21] MEDS: ROFLUMILAST 500 MCG TAB (DALIRESP) PO SCH (08:46)
[2022-02-21] MEDS: LORATADINE (CLARITIN) 10 MG TAB PO SCH (08:46)
[2022-02-21] MEDS: RIVAROXABAN 20 MG TABLET (XARELTO) PO SCH (08:47)
[2022-02-21] MEDS: predniSONE 20 MG TAB PO SCH (08:50)
--- NOTE | 2022-02-21 09:26 | Progress Note - Hospitalist ---
Subjective HPI/CC On Admission Date Seen by Provider: Feb 21, 2022 Time Seen by Provider: 09:21 Subjective/Events-last exam Patient appears to be confused he is not agitated and pleasant talking with his BiPAP on O2 saturations are in the low 90s and he does not appear to be in respiratory distress but is difficult to understand. He is moving all extremities and able to follow simple commands and does not appear to be in any type of distress. Objective Exam Vital Signs Vital Signs Date Time Temp Pulse Resp B/P (MAP) Pulse Ox O2 Delivery O2 Flow Rate FiO2 02/21/22 09:00 105 134/85 (101) 92 OxyMask 4.00 02/21/22 08:52 30 02/21/22 08:00 24 02/21/22 07:49 36.6 Capillary Refill : Less Than 3 Seconds General Appearance: No Apparent Distress, Chronically ill Respiratory: Other (Diminished breath sounds throughout without wheezes rales or rhonchi) Cardiovascular: No Murmur ( Difficult to hear over BiPAP and what appears to be increased AP diameter from likely severe COPD.), Irregularly Irregular, Tachycardia ( rate during conversation in the 1 20-1 30 range has been trending lower.) Gastrointestinal: Normal Bowel Sounds, Non Tender, Soft Extremity: No Pedal Edema Results/Procedures Lab Laboratory Tests 02/21/22 04:19 Patient resulted labs reviewed. Assessment/Plan Assessment and Plan Assess & Plan/Chief Complaint (1) Respiratory failure Status: Acute Assessment & Plan: Secondary to COPD exacerbation, possible persistent pneumonia. 02/21: Respiratory status with acute COPD exacerbation appears to be at least stable and well A. fib with RVR persists rate control overall is improving defer to cardiology. Patient has been little bit confused appears to have nonagitated delirium exhibiting inattention and not making a lot of sense during our interview. According to nursing staff while the patient only indicated that he has 1-2 beers per day thinks it is more like a sixpack will treat accordingly with detox protocol and continue to monitor. Qualifiers: Qualified Codes: J96.21 - Acute and chronic respiratory failure with hypoxia; J96.22 - Acute and chronic respiratory failure with hypercapnia (2) COPD exacerbation Status: Acute Assessment & Plan: IV solumedrol started. Duonebs. Bipap as needed. Ceftriaxone. 02/20 change to PO prednisone (3) Atrial fibrillation Status: Chronic Assessment & Plan: Resumed home cardizem, but heart rate still rapid and increasing, Cardiology consulted. Amiodarone drip added as well. (4) Atrial fibrillation with RVR Status: Resolved (5) Respiratory acidosis Status: Acute (6) Hyperlipidemia Status: Chronic (7) Hypertension Status: Chronic (8) DVT prophylaxis Status: Acute Assessment & Plan: Home anticoagulant resumed Critical Care Critically Ill Patient SHAR DAY MD Feb 21, 2022 09:26
[2022-02-21] MEDS ORDERED: LORazepam INJ 2 MG/ML (ATIVAN) VIAL IM/IV PRN (10:15)
[2022-02-21] MEDS ORDERED: D5 1/2 NS 1000 ML IV SOLUTION 1,000 ML IV PRN (10:15)
[2022-02-21] MEDS ORDERED: LORazepam 1 MG (ATIVAN) TAB PO PRN (10:15)
[2022-02-21] MEDS ORDERED: LORazepam INJ 2 MG/ML (ATIVAN) VIAL IV PRN (10:15)
[2022-02-21] MEDS ORDERED: 1/2 NS IV SOLUTION 1,000 ML IV PRN (10:15)
--- NOTE | 2022-02-21 10:21 | Cardiology Progress Note ---
Progress Note-Cardiology Events since last exam Date Seen by Provider: Feb 21, 2022 Time Seen by Provider: 10:15 Events since last exam I am following him due to permanent atrial fibrillation. His breathing yanira nues to improve but is not quite back to baseline. He denies chest discomfort, palpitations, syncope, or ankle edema. Certain portions of this document may have been dictated utilizing voice recogni tion technology. Inherent to this technology, typographical and grammatical errors may exist. As much as I am diligent to identify and correct these mistakes, some errors may remain in the document. Vitals Last set of Vitals Signs Vital Signs 02/21/22 02/21/22 02/21/22 02/21/22 07:49 08:00 08:52 09:00 Temp 36.6 Pulse 105 Resp 24 B/P (MAP) 134/85 (101) Pulse Ox 92 O2 Delivery OxyMask O2 Flow Rate 4.00 FiO2 30 Labs Labs Laboratory Tests 02/21/22 04:19 Exam Vital Signs Vital Signs Date Time Temp Pulse Resp B/P (MAP) Pulse Ox O2 Delivery O2 Flow Rate FiO2 02/21/22 09:00 105 134/85 (101) 92 OxyMask 4.00 02/21/22 08:52 30 02/21/22 08:00 24 02/21/22 07:49 36.6 Physical Exam General: Alert. No acute distress. He is wearing oxygen by nasal cannula. He appears older than his stated age. Eye: No xanthelasma. HENT: Normocephalic. Neck: Jugular venous pressure does not appear elevated. Respiratory: Lungs have scattered wheezes bilaterally but improving from prior days. Respirations are non-labored. Breath sounds are equal. Symmetrical chest wall expansion. Cardiovascular: Tachycardia with irregular rhythm. Distant S1/S2. No murmur. No gallop. No edema. Gastrointestinal: Soft. Normal bowel sounds. Skin: Warm. Dry. Neurologic: Alert and oriented to person, place, time. Cranial nerves 3-11 grossly intact. Psychiatric: Cooperative. Appropriate mood & affect. Labs Laboratory Tests Test 02/20/22 15:00 02/21/22 04:19 Range/Units Troponin I < 0.028 <0.028 NG/ML White Blood Count 12.0 H 4.3-11.0 10^3/uL Red Blood Count 4.02 L 4.30-5.52 10^6/uL Hemoglobin 14.0 13.3-17.7 g/dL Hematocrit 43 40-54 % Mean Corpuscular Volume 107 H 80-99 fL Mean Corpuscular Hemoglobin 35 H 25-34 pg Mean Corpuscular Hemoglobin Concent 33 32-36 g/dL Red Cell Distribution Width 13.7 10.0-14.5 % Platelet Count 179 130-400 10^3/uL Mean Platelet Volume 11.1 9.0-12.2 fL Immature Granulocyte % (Auto) 1 % Neutrophils (%) (Auto) 91 H 42-75 % Lymphocytes (%) (Auto) 5 L 12-44 % Monocytes (%) (Auto) 4 0-12 % Eosinophils (%) (Auto) 0 0-10 % Basophils (%) (Auto) 0 0-10 % Neutrophils # (Auto) 10.9 H 1.8-7.8 10^3/uL Lymphocytes # (Auto) 0.5 L 1.0-4.0 10^3/uL Monocytes # (Auto) 0.4 0.0-1.0 10^3/uL Eosinophils # (Auto) 0.0 0.0-0.3 10^3/uL Basophils # (Auto) 0.0 0.0-0.1 10^3/uL Immature Granulocyte # (Auto) 0.1 0.0-0.1 10^3/uL Sodium Level 138 135-145 MMOL/L Potassium Level 4.3 3.6-5.0 MMOL/L Chloride Level 100 98-107 MMOL/L Carbon Dioxide Level 28 21-32 MMOL/L Anion Gap 10 5-14 MMOL/L Blood Urea Nitrogen 16 7-18 MG/DL Creatinine 0.79 0.60-1.30 MG/DL Estimat Glomerular Filtration Rate 98 BUN/Creatinine Ratio 20 Glucose Level 115 H 70-105 MG/DL Calcium Level 9.5 8.5-10.1 MG/DL Corrected Calcium 9.9 8.5-10.1 MG/DL Phosphorus Level 2.9 2.3-4.7 MG/DL Magnesium Level 2.0 1.6-2.4 MG/DL Total Bilirubin 0.5 0.1-1.0 MG/DL Aspartate Amino Transf (AST/SGOT) 64 H 5-34 U/L Alanine Aminotransferase (ALT/SGPT) 77 H 0-55 U/L Alkaline Phosphatase 93 40-136 U/L Total Protein 7.1 6.4-8.2 GM/DL Albumin 3.5 3.2-4.5 GM/DL Diagnosis/Problems Diagnosis/Problems (1) Permanent atrial fibrillation Assessment & Plan: He has had atrial fibrillation going back at least several years. He developed significant tachycardia on 02/19 which improved with IV amiodarone. I discontinued the IV amiodarone on 02/20 when the bag was completed. He still has persistent tachycardia. I will give him an extra dose of diltiazem today and increase the dose tomorrow. We will continue beta-manjit. He should continue rivaroxaban for stroke prophylaxis. (2) Acute on chronic heart failure with preserved ejection fraction (HFpEF) Assessment & Plan: He may have had some slight decompensation of his heart failure from the previous IV fluids he had received. He received 1 dose of IV furosemide on 02/20. His chest x-ray on 02/21 does not show any significant pulmonary congestion. I do not believe he needs any additional diuretic at this point in time. (3) Primary hypertension Assessment & Plan: He has been reasonably normotensive on the current medication. We will need to watch his blood pressure closely if we need to make any other additional adjustments to the beta-manjit or calcium manjit to control the tachycardia from the atrial fibrillation. (4) Coronary artery disease without angina pectoris Assessment & Plan: He has not been having any angina. He is on beta-manjit and statin medication. He is not on aspirin because he is on rivaroxaban for the atrial fibrillation. (5) Pulmonary hypertension Assessment & Plan: Most likely due to his chronic obstructive pulmonary disease. He may benefit from home oxygen if not already using this. This will condition will need to be followed longitudinally. (6) Acute and chronic respiratory failure with hypoxia Status: Acute Assessment & Plan: Most likely due to an exacerbation of his chronic obstructive pulmonary disease. There may have been some superimposed component due to heart failure. We will proceed as above. (7) Mixed hyperlipidemia Assessment & Plan: Continue statin medication. (8) Chronic obstructive pulmonary disease Assessment & Plan: This is being managed by the primary team. (9) Cigarette smoker Assessment & Plan: He needs to quit smoking. He states that after this hospitalization, he plans to quit. SAGE DIETZ JR, MD Feb 21, 2022 10:21
[2022-02-21 12:07] VITALS: BP 112/85
[2022-02-21 19:49] VITALS: BP 154/94
[2022-02-21] MEDS: cefTRIAXone 1 GM/50 ML (PRE-MIX) IV SCH (20:14)
[2022-02-22 05:24] LABS: BASOPHILS % (AUTO) 0 % (0-10); EOSINOPHILS % (AUTO) 0 % (0-10); HEMATOCRIT 40 % (40-54); HEMOGLOBIN 13.5 g/dL (13.3-17.7); LYMPHOCYTES # (AUTO) 0.7 10^3/uL (1.0-4.0); LYMPHOCYTES % (AUTO) 7 % (12-44); MEAN CORPUSCULAR HEMOGLOBIN 36 pg (25-34); MEAN CORPUSCULAR HGB CONC 34 g/dL (32-36); MEAN CORPUSCULAR VOLUME 104 fL (80-99); MEAN PLATELET VOLUME 10.5 fL (9.0-12.2); MONOCYTES # (AUTO) 0.6 10^3/uL (0.0-1.0); MONOCYTES % (AUTO) 6 % (0-12); NEUTROPHILS # (AUTO) 8.3 10^3/uL (1.8-7.8); NEUTROPHILS % (AUTO) 86 % (42-75); PLATELET COUNT 152 10^3/uL (130-400); WHITE BLOOD COUNT 9.6 10^3/uL (4.3-11.0)
[2022-02-22 05:44] LABS: ALBUMIN 2.9 GM/DL (3.2-4.5); BILIRUBIN,TOTAL 0.5 MG/DL (0.1-1.0); CALCIUM 8.8 MG/DL (8.5-10.1); CREATININE SERUM 0.71 MG/DL (0.60-1.30); MAGNESIUM 1.8 MG/DL (1.6-2.4); PHOSPHORUS 2.5 MG/DL (2.3-4.7); POTASSIUM 3.3 MMOL/L (3.6-5.0); TOTAL PROTEIN 5.9 GM/DL (6.4-8.2)
[2022-02-22] MEDS: POTASSIUM CL 10MEQ/50ML IVPB 50 ML IV SCH (05:57)
[2022-02-22] MEDS: MAGNESIUM 1 GM/100 ML IVPB 100 ML IV SCH (05:58)
[2022-02-22] MEDS: KCL 20 MEQ TAB (K-DUR) PO SCH (05:58)
[2022-02-22] MEDS ORDERED: KCL 20 MEQ TAB (K-DUR) PO ONE ×2 (06:00→08:00)
[2022-02-22] MEDS: predniSONE 20 MG TAB PO SCH (06:03)
[2022-02-22] MEDS: dilTIAZem DRIP PRE-MIX 125 ML IV SCH ×2 (06:58→18:15)
[2022-02-22] MEDS: RT--FLUTICASONE/SALMETEROL 232-14 (AIRDUO RespiCLICK) IH SCH ×2 (07:03→19:09)
[2022-02-22] MEDS: UMECLIDINIUM BROMIDE (INCRUSE ELLIPTA) 7'S IH SCH (07:03)
[2022-02-22] MEDS: RIVAROXABAN 20 MG TABLET (XARELTO) PO SCH (09:09)
[2022-02-22] MEDS: LORATADINE (CLARITIN) 10 MG TAB PO SCH (09:09)
[2022-02-22] MEDS: AtorvaSTATin TABLET 10 MG TABLET PO SCH (09:09)
[2022-02-22] MEDS: FAMOTIDINE 20 MG (PEPCID) TABLET PO SCH ×2 (09:09→19:53)
[2022-02-22] MEDS: ROFLUMILAST 500 MCG TAB (DALIRESP) PO SCH (09:09)
--- NOTE | 2022-02-22 09:09 | Cardiology Progress Note ---
Progress Note-Cardiology Events since last exam Date Seen by Provider: Feb 22, 2022 Time Seen by Provider: 09:04 Events since last exam We are following him due to permanent atrial fibrillation. He remains in the ICU on intravenous diltiazem infusion. He has not yet received his morning medication. His breathing continues to improve but is not quite back to his baseline. He denies chest discomfort, palpitations, syncope, or ankle edema. Certain portions of this document may have been dictated utilizing voice recognition technology. Inherent to this technology, typographical and grammatical errors may exist. As much as I am diligent to identify and correct these mistakes, some errors may remain in the document. Vitals Last set of Vitals Signs Vital Signs 02/22/22 02/22/22 02/22/22 02/22/22 07:07 07:58 08:00 09:00 Temp 36.2 Pulse 124 Resp 20 B/P (MAP) 115/82 (93) Pulse Ox 90 O2 Delivery NIV Bilevel O2 Flow Rate 35.00 FiO2 30 Labs Labs Laboratory Tests 02/22/22 05:14 Exam Vital Signs Vital Signs Date Time Temp Pulse Resp B/P (MAP) Pulse Ox O2 Delivery O2 Flow Rate FiO2 02/22/22 09:00 124 115/82 (93) 90 NIV Bilevel 35.00 02/22/22 08:00 20 02/22/22 07:58 36.2 02/22/22 07:07 30 Physical Exam General: Alert. No acute distress. He appears older than his stated age. Eye: No xanthelasma. HENT: Normocephalic. Neck: Jugular venous pressure does not appear elevated. Respiratory: Lungs have diffusely decreased breath sounds with some mild scattered wheezes, improved. Respirations are non-labored. Breath sounds are equal. Symmetrical chest wall expansion. Cardiovascular: Tachycardia with irregular rhythm. Distant S1/S2. No murmur. No gallop. No edema. Gastrointestinal: Soft. Normal bowel sounds. Skin: Warm. Dry. Neurologic: Alert and oriented to person, place, time. Cranial nerves 3-11 grossly intact. Psychiatric: Cooperative. Appropriate mood & affect. Labs Laboratory Tests Test 02/22/22 05:14 Range/Units White Blood Count 9.6 4.3-11.0 10^3/uL Red Blood Count 3.80 L 4.30-5.52 10^6/uL Hemoglobin 13.5 13.3-17.7 g/dL Hematocrit 40 40-54 % Mean Corpuscular Volume 104 H 80-99 fL Mean Corpuscular Hemoglobin 36 H 25-34 pg Mean Corpuscular Hemoglobin Concent 34 32-36 g/dL Red Cell Distribution Width 13.2 10.0-14.5 % Platelet Count 152 130-400 10^3/uL Mean Platelet Volume 10.5 9.0-12.2 fL Immature Granulocyte % (Auto) 1 % Neutrophils (%) (Auto) 86 H 42-75 % Lymphocytes (%) (Auto) 7 L 12-44 % Monocytes (%) (Auto) 6 0-12 % Eosinophils (%) (Auto) 0 0-10 % Basophils (%) (Auto) 0 0-10 % Neutrophils # (Auto) 8.3 H 1.8-7.8 10^3/uL Lymphocytes # (Auto) 0.7 L 1.0-4.0 10^3/uL Monocytes # (Auto) 0.6 0.0-1.0 10^3/uL Eosinophils # (Auto) 0.0 0.0-0.3 10^3/uL Basophils # (Auto) 0.0 0.0-0.1 10^3/uL Immature Granulocyte # (Auto) 0.1 0.0-0.1 10^3/uL Sodium Level 139 135-145 MMOL/L Potassium Level 3.3 L 3.6-5.0 MMOL/L Chloride Level 103 98-107 MMOL/L Carbon Dioxide Level 29 21-32 MMOL/L Anion Gap 7 5-14 MMOL/L Blood Urea Nitrogen 20 H 7-18 MG/DL Creatinine 0.71 0.60-1.30 MG/DL Estimat Glomerular Filtration Rate 101 BUN/Creatinine Ratio 28 Glucose Level 122 H 70-105 MG/DL Calcium Level 8.8 8.5-10.1 MG/DL Corrected Calcium 9.7 8.5-10.1 MG/DL Phosphorus Level 2.5 2.3-4.7 MG/DL Magnesium Level 1.8 1.6-2.4 MG/DL Total Bilirubin 0.5 0.1-1.0 MG/DL Aspartate Amino Transf (AST/SGOT) 36 H 5-34 U/L Alanine Aminotransferase (ALT/SGPT) 65 H 0-55 U/L Alkaline Phosphatase 76 40-136 U/L Total Protein 5.9 L 6.4-8.2 GM/DL Albumin 2.9 L 3.2-4.5 GM/DL Diagnosis/Problems Diagnosis/Problems (1) Permanent atrial fibrillation Assessment & Plan: He has had atrial fibrillation going back at least several years. He developed significant tachycardia on 02/19 which improved with IV amiodarone. I discontinued the IV amiodarone on 02/20 when the bag was completed. He still has persistent tachycardia. I gave him an extra dose of diltiazem on 02/21 and increased the dose to 360 mg daily as of 02/22.. We will continue beta- manjit. I have asked the nurse to attempt to wean off the IV diltiazem later t his morning after he receives his morning oral medication. If the tachycardia persists, we may need to increase the metoprolol succinate to 200 mg daily. He should continue rivaroxaban for stroke prophylaxis. (2) Acute on chronic heart failure with preserved ejection fraction (HFpEF) Assessment & Plan: He may have had some slight decompensation of his heart failure from the previous IV fluids he had received. He received 1 dose of IV furosemide on 02/20. His chest x-ray on 02/21 did not show any significant pulmonary congestion. I do not believe he needs any additional diuretic at this point in time. He does not routinely take furosemide at home. (3) Primary hypertension Assessment & Plan: He has been reasonably normotensive on the current medication. We will need to watch his blood pressure closely if we need to make any other additional adjustments to the beta-manjit to control the tachycardia from the atrial fibrillation. (4) Coronary artery disease without angina pectoris Assessment & Plan: He has not been having any angina. He is on beta-manjit and statin medication. He is not on aspirin because he is on rivaroxaban for the atrial fibrillation. (5) Pulmonary hypertension Assessment & Plan: Most likely due to his chronic obstructive pulmonary disease. He may benefit from home oxygen if not already using this. This will condition will need to be followed longitudinally. (6) Mixed hyperlipidemia Assessment & Plan: Continue statin medication. (7) Acute on chronic respiratory failure with hypoxemia Assessment & Plan: Most likely due to an exacerbation of his chronic obstructive pulmonary disease. There may have been some superimposed component due to heart failure. We will proceed as above. (8) Chronic obstructive pulmonary disease Assessment & Plan: This is being managed by the primary team. (9) Cigarette smoker Assessment & Plan: He needs to quit smoking. He states that after this hospitalization, he plans to quit. SAGE DIETZ JR, MD Feb 22, 2022 09:09
[2022-02-22] MEDS: meTOprolol SUCCINATE 100 MG (TOPROL XL) TAB PO SCH (09:10)
--- NOTE | 2022-02-22 09:32 | Tele-ICU Progress Note ---
Subjective Date Seen by a Provider: Feb 22, 2022 Time Seen by a Provider: 13:25 Subjective/Events-last exam Tele-ICU Physician , consultation) Available chart/ vitals / labs / Images reviewed H&P is from ER notes Patient's information available about PMH, allergy reviewed in EMR. ROS as per chart and RN report Video assessment done using teleICU camera, rest of exam as per RN Discussed with RN. This gentleman is a 66-year-old male with past medical history of for coronary artery disease/atrial fibrillation persistent and a failed ablation in 2013, COPD on home oxygen 3-1/2 L, previous history of multiple cardiac arrest with complex hospitalization in October 2017 presented to the emergency room with a complaint of fall cough chest congestion and shortness of breath. He is found to be hypoxic requiring BiPAP ventilation in the emergency room. Also found to have atrial fibrillation with rapid ventricular rate. Subsequently admitted to the intensive care unit. When I first saw the patient he has a heart rate of 120/min and I have ordered Lopressor 2.5 mg IV push x1 to be followed by cardi ology consultation. Lateral in the hospital course patient is able to come off the BiPAP and currently using 4 L of nasal cannula. He is wheezing. 02/21/2022 ON BIPAP. Apparently has been hallucinating. hx of drinking beer every day . now probably has alcohol withdrawel. started on ciwa scale 02/22/2022 patient looks more lucid talking on the phone with family. hr afib 114- 124/mt Impression 1. Acute upper respiratory tract infection with acute exacerbation of COPD improving 2. Acute and chronic hypoxic respiratory failure 3. Atrial fibrillation with rapid ventricular rate on cardizem drip 4. History of coronary artery disease status post multiple cardiac arrest. 5. Alcohol withdrawal syndrome Recommendations 1. We will continue IV antibiotics and bronchodilator therapy 2. po prednisone but will decrease dose 3. Atrial fibrillation with rapid ventricular rate. cardiology follo wing.currently on cardizem drip at 10 and po lopressor and xarelto 4. Wean oxygen as tolerated 5. Reportedly had a abdominal aortic aneurysm for which she underwent stent placement. 6. Hypertension management per cardiology. 7. Continue monitor mental status, if necessary will add ciwa protocol care coordination with bedside consultants and primary care physician. Sepsis Event Evaluation Height, Weight, BMI Height: 6'4.00" Weight: 154lbs. 2.0oz. [id number]; 23.06 BMI Method:Stated Exam Exam Patient acknowledged, consented, and participated in this virtual visit which was conducted using real time audio/video Vital Signs Date Time Temp Pulse Resp B/P (MAP) Pulse Ox O2 Delivery O2 Flow Rate FiO2 02/22/22 09:00 124 115/82 (93) 90 NIV Bilevel 35.00 02/22/22 08:00 105 20 131/93 (106) 95 NIV Bilevel 35.00 02/22/22 07:58 36.2 02/22/22 07:07 NIV Bilevel 30 02/22/22 07:07 NIV Bilevel 30 02/22/22 07:05 97 27 95 35.00 02/22/22 07:00 133 02/22/22 07:00 113 23 112/92 (99) 96 NIV Bilevel 35.00 02/22/22 06:58 104 124/89 02/22/22 06:00 89 17 130/98 (109) 95 NIV Bilevel 35.00 02/22/22 05:00 104 24 128/83 (98) 95 NIV Bilevel 35.00 02/22/22 04:16 93 NIV Bilevel 35 02/22/22 04:00 114 16 131/84 (100) 93 NIV Bilevel 35.00 02/22/22 04:00 36.5 02/22/22 03:21 NIV Bilevel 35.00 02/22/22 03:00 107 18 126/88 (101) 93 NIV Bilevel 30.00 02/22/22 02:47 93 26 93 35.00 02/22/22 02:00 88 27 123/88 (100) 93 NIV Bilevel 30.00 02/22/22 01:00 103 12 126/77 (93) 93 NIV Bilevel 30.00 02/22/22 01:00 131 02/22/22 00:00 98 15 121/87 (98) 91 NIV Bilevel 30.00 02/22/22 00:00 36.8 02/21/22 23:59 92 NIV Bilevel 30 02/21/22 23:00 106 123/90 (101) NIV Bilevel 30.00 02/21/22 22:38 165 31 96 30.00 02/21/22 22:07 NIV Bilevel 30.00 02/21/22 22:00 89 129/85 (100) Nasal Cannula 4.00 02/21/22 21:40 105 134/97 02/21/22 21:00 87 130/89 (103) 94 Nasal Cannula 4.00 02/21/22 20:14 36.6 96 Nasal Cannula 4.00 02/21/22 20:14 36.6 02/21/22 20:00 95 Nasal Cannula 4.00 02/21/22 20:00 87 35 128/77 (94) 95 OxyMask 4.00 02/21/22 19:49 02/21/22 19:42 96 Nasal Cannula 4.00 02/21/22 19:00 126 02/21/22 19:00 98 26 143/89 (107) 94 OxyMask 4.00 02/21/22 18:00 128 26 132/88 (103) 90 OxyMask 4.00 02/21/22 17:00 131 23 140/97 (111) 91 OxyMask 4.00 02/21/22 16:00 95 NIV Bilevel 30 02/21/22 16:00 135 29 110/88 (95) 94 OxyMask 4.00 02/21/22 15:00 128 30 112/76 (88) 95 OxyMask 4.00 02/21/22 14:54 93 OxyMask 4.00 02/21/22 14:51 133 120/81 02/21/22 14:00 117 29 115/88 (97) 93 OxyMask 4.00 02/21/22 13:00 126 02/21/22 13:00 113 27 117/74 (88) 91 OxyMask 4.00 02/21/22 12:07 165 31 94 30.00 02/21/22 12:00 116 30 112/85 (94) 91 OxyMask 4.00 02/21/22 12:00 94 Nasal Cannula 5.00 02/21/22 11:48 36.5 02/21/22 11:32 93 Nasal Cannula 4.00 02/21/22 11:00 149 18 129/80 (96) 92 OxyMask 4.00 02/21/22 10:00 118 25 126/88 (101) 93 OxyMask 4.00 I & O 02/22/22 07:00 Intake Total 1750 ml Output Total 1775 ml Balance -25 ml Height & Weight Height: 6'4.00" Weight: 154lbs. 2.0oz. 69.457731ow; 23.06 BMI Method:Stated General Appearance: Cachetic, Mild Distress HEENT: PERRL/EOMI, TMs Normal, Normal ENT Inspection, Pharynx Normal, Moist Mucous Membranes Neck: Full Range of Motion, Normal Inspection, Non Tender, Supple, Carotid Bruit Respiratory: Chest Non Tender, No Accessory Muscle Use, No Respiratory Distress, Crackles, Decreased Breath Sounds Cardiovascular: No Edema, No JVD, Normal Peripheral Pulses, Systolic Murmur, Irregularly Irregular, Tachycardia Capillary Refill: Less Than 3 Seconds Peripheral Pulses: 1+ Dorsalis Pedis (R), 1+ Left Dors-Pedis (L) (See free text) Gastrointestinal: normal bowel sounds, non tender, soft Extremity: Normal Capillary Refill, Normal Inspection, Normal Range of Motion, Non Tender, No Calf Tenderness, No Pedal Edema Neurologic/Psychiatric: Alert, Oriented x3, No Motor/Sensory Deficits, Normal Mood/Affect Skin: Normal Color, Warm/Dry Lymphatic: No Adenopathy Results Lab Laboratory Tests 02/21/22 04:19 02/22/22 05:14 Assessment/Plan Assessment/Plan as above Time spent with patient (mins): 20 ALIX BENTLEY MD Feb 22, 2022 09:32
--- NOTE | 2022-02-22 09:32 | Progress Note - Hospitalist ---
Subjective HPI/CC On Admission Date Seen by Provider: Feb 22, 2022 Time Seen by Provider: 09:28 Subjective/Events-last exam Patient awake and alert pleasant with no evidence for agitation. He reports coughing up a little bit of sputum he does not think is purulent. He denies chills or fever and reports that his appetite is improving with no nausea or abdominal pain. He denies chest pain denies shortness of breath at rest but has not been out of bed. Objective Exam Vital Signs Vital Signs Date Time Temp Pulse Resp B/P (MAP) Pulse Ox O2 Delivery O2 Flow Rate FiO2 02/22/22 09:00 124 115/82 (93) 90 NIV Bilevel 35.00 02/22/22 08:00 20 02/22/22 07:58 36.2 02/22/22 07:07 30 Capillary Refill : Less Than 3 Seconds General Appearance: No Apparent Distress, Chronically ill Respiratory: Other (Coarse breath sounds throughout there is a bit of wheezing when the patient coughs which occurs when he is taking deep breaths air movement appears to be equal bilaterally on auscultation.) Cardiovascular: No Murmur, Irregularly Irregular, Other ( Heart tones di stant.) Results/Procedures Lab Laboratory Tests 02/22/22 05:14 Patient resulted labs reviewed. Assessment/Plan Assessment and Plan Assess & Plan/Chief Complaint (1) Respiratory failure Status: Acute Assessment & Plan: Secondary to COPD exacerbation, possible persistent pneumonia. 02/21: Respiratory status with acute COPD exacerbation appears to be at least stable and well A. fib with RVR persists rate control overall is improving defer to cardiology. Patient has been little bit confused appears to have nonagitated delirium exhibiting inattention and not making a lot of sense during our interview. According to nursing staff while the patient only indicated that he has 1-2 beers per day thinks it is more like a sixpack will treat accordingly with detox protocol and continue to monitor. 02/22: Slow improvement in acute respiratory failure due to COPD exacerbation. A. fib with RVR is improving as well with better rate control. Could be transferred to the floor when IV diltiazem is converted but will defer to cardiology. Qualifiers: Qualified Codes: J96.21 - Acute and chronic respiratory failure with hypoxia; J96.22 - Acute and chronic respiratory failure with hypercapnia (2) COPD exacerbation Status: Acute Assessment & Plan: IV solumedrol started. Duonebs. Bipap as needed. Ceftri axone. 02/20 change to PO prednisone (3) Atrial fibrillation Status: Chronic Assessment & Plan: Resumed home cardizem, but heart rate still rapid and increasing, Cardiology consulted. Amiodarone drip added as well. (4) Atrial fibrillation with RVR Status: Resolved (5) Respiratory acidosis Status: Acute (6) Hyperlipidemia Status: Chronic (7) Hypertension Status: Chronic (8) DVT prophylaxis Status: Acute Assessment & Plan: Home anticoagulant resumed Critical Care Critically Ill Patient SHAR DAY MD Feb 22, 2022 09:32
[2022-02-22] MEDS: cefTRIAXone 1 GM/50 ML (PRE-MIX) IV SCH (19:53)
[2022-02-23] MEDS: dilTIAZem DRIP PRE-MIX 125 ML IV SCH ×2 (01:09→11:54)
[2022-02-23 05:00] LABS: BASOPHILS % (AUTO) 0 % (0-10); EOSINOPHILS % (AUTO) 0 % (0-10); HEMATOCRIT 45 % (40-54); HEMOGLOBIN 15.2 g/dL (13.3-17.7); LYMPHOCYTES # (AUTO) 0.8 10^3/uL (1.0-4.0); LYMPHOCYTES % (AUTO) 5 % (12-44); MEAN CORPUSCULAR HEMOGLOBIN 35 pg (25-34); MEAN CORPUSCULAR HGB CONC 34 g/dL (32-36); MEAN CORPUSCULAR VOLUME 104 fL (80-99); MEAN PLATELET VOLUME 10.4 fL (9.0-12.2); MONOCYTES # (AUTO) 0.9 10^3/uL (0.0-1.0); MONOCYTES % (AUTO) 6 % (0-12); NEUTROPHILS # (AUTO) 13.8 10^3/uL (1.8-7.8); NEUTROPHILS % (AUTO) 87 % (42-75); PLATELET COUNT 166 10^3/uL (130-400); WHITE BLOOD COUNT 15.8 10^3/uL (4.3-11.0)
[2022-02-23 05:19] LABS: ATYPICAL LYMPHOCYTES 1 %; LYMPHOCYTES % (MANUAL) 5 %; MONOCYTES % (MANUAL) 6 %; NEUTROPHILS % (MANUAL) 88 %; PLATELET CLUMPS OCCASIONAL
[2022-02-23 05:24] LABS: ALBUMIN 3.1 GM/DL (3.2-4.5); BILIRUBIN,TOTAL 0.5 MG/DL (0.1-1.0); CALCIUM 8.9 MG/DL (8.5-10.1); CREATININE SERUM 0.83 MG/DL (0.60-1.30); MAGNESIUM 1.8 MG/DL (1.6-2.4); PHOSPHORUS 2.4 MG/DL (2.3-4.7); POTASSIUM 3.5 MMOL/L (3.6-5.0); TOTAL PROTEIN 6.1 GM/DL (6.4-8.2)
[2022-02-23] MEDS: POTASSIUM CL 10MEQ/50ML IVPB 50 ML IV SCH (05:32)
[2022-02-23] MEDS: KCL 20 MEQ TAB (K-DUR) PO SCH ×2 (05:33→06:40)
[2022-02-23] MEDS: MAGNESIUM 1 GM/100 ML IVPB 100 ML IV SCH (05:33)
[2022-02-23] MEDS: predniSONE 20 MG TAB PO SCH (06:40)
[2022-02-23] MEDS: RT--FLUTICASONE/SALMETEROL 232-14 (AIRDUO RespiCLICK) IH SCH ×2 (07:55→21:46)
[2022-02-23] MEDS: UMECLIDINIUM BROMIDE (INCRUSE ELLIPTA) 7'S IH SCH (07:55)
[2022-02-23 07:57] VITALS: BP 134/91
[2022-02-23] MEDS: meTOprolol SUCCINATE 100 MG (TOPROL XL) TAB PO SCH ×2 (08:14→20:08)
[2022-02-23] MEDS: FAMOTIDINE 20 MG (PEPCID) TABLET PO SCH ×2 (08:14→20:08)
[2022-02-23] MEDS: LORATADINE (CLARITIN) 10 MG TAB PO SCH (08:14)
[2022-02-23] MEDS: RIVAROXABAN 20 MG TABLET (XARELTO) PO SCH (08:14)
[2022-02-23] MEDS: AtorvaSTATin TABLET 10 MG TABLET PO SCH (08:14)
[2022-02-23] MEDS: ROFLUMILAST 500 MCG TAB (DALIRESP) PO SCH (08:14)
--- NOTE | 2022-02-23 11:21 | Cardiology Progress Note ---
Subjective Date Seen by Provider: Feb 23, 2022 Time Seen by Provider: 11:17 Subjective/Events-last exam Patient was seen at bedside, laying down comfortably, complaining of fatigue, still in atrial fibrillation with rapid ventricular response Review of Systems General: No Chills, No Night Sweats, No Fatigue, No Malaise, No Appetite, No Other HEENT: No Head Aches, No Visual Changes, No Eye Pain, No Ear Pain, No Dysphasia, No Sinus Congestion, No Post Nasal Drip, No Sore Throat, No Other Pulmonary: No Dyspnea, No Cough, No Pleuritic Chest Pain, No Other Cardiovascular: No: Chest Pain, Palpitations, Orthopnea, Paroxysmal Noc. Dyspnea, Edema, Lt Headedness, Other Objective-Cardiology Exam Last Set of Vital Signs Vital Signs 02/23/22 02/23/22 07:57 10:00 Temp 36.1 Pulse 113 Resp 27 B/P (MAP) 124/82 (96) Pulse Ox 93 O2 Delivery Nasal Cannula O2 Flow Rate 4.00 FiO2 36 I&O Intake and Output 02/23/22 00:00 Intake Total 2100 ml Output Total 2225 ml Balance -125 ml Intake Oral 1800 ml IV Total 300 ml Output Urine Total 2225 ml General: Alert, Oriented X3, Cooperative HEENT: Atraumatic Lungs: Normal Air Movement, Other (expiratory wheezing) Heart: Other (irregular, tachycardic) Extremities: No Clubbing, No Cyanosis Skin: No Rashes, No Breakdown Neuro: Normal Speech Psych/Mental Status: Mood NL Results Lab Laboratory Tests 02/23/22 04:35 A/P-Cardiology Admission Diagnosis Acute respiratory failure Atrial fibrillation with rapid ventricular response COPD Hypertension Assessment/Plan Status post acute respiratory failure, acute exacerbation of COPD. Patient has been maintained on oxygen at home. Was on BiPAP earlier, currently back on oxygen nasal cannula Improving at this time and maintained on oxygen. Atrial fibrillation with rapid ventricular response, known to have persistent atrial fibrillation, History of ablation in April [address] Mccabe. Had multiple cardiac arrests, complex hospitalization in October 2017. Still tachycardic, maintained on Cardizem CD 360 daily, Toprol-XL 100 mg daily for rate control. I will increase Toprol-XL to 100 mg twice daily and evaluate tolerance and response Continue on Xarelto Coronary artery disease, history of stenting using 3.020 mm Promus stent to the right coronary artery done in March 2012. Stress test done on November 01, 2019 showing Baseline atrial fibrillation, decreased uptake involving the mid to apical inferior wall with no reversibility, ejection fraction 40 percent probably due to tachycardia. COPD, using oxygen at night, had a complex hospitalization with Legionella pneumonia and CMV, respiratory failure, multiple cardiac arrest in October 2017. loculated pneumonia underwent right lung decortication on January 28, 2018 resulted in hydropneumothorax and marked emphysema and had prolonged chest tube placement. Currently breathing is slightly better. Continue to monitor Congestive heart failure, chronic left ventricular systolic dysfunction. 2D echo was done in November 2021 with ejection fraction 55 to 60%, left atrial dilatation, PA pressure 45 to 50 mmHg. 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 Continue to monitor Abdominal aortic aneurysm, had a stent placed by Dr. Hogue done in June 2021. I will try to obtain copy of the results Chest pain nonspecific etiology, resolved, Stress test from April 24, 2015 revealed diaphragmatic attenuation with typical male pattern. No significant ischemia or infarct. Hypertension, currently blood pressure is stable. Continue to monitor re Hyperlipidemia, continue to monitor lipids Tobaccoism, has stopped smoking. Encouraged to continue with smoking cessation Alcoholism, has stopped drinking, encouraged to avoid any alcohol Peptic ulcer disease, esophagitis, managed by primary care physician Nonobstructive carotid artery stenosis-most recent carotid duplex done in January 2021, continue to monitor AIDAN PASTOR MD Feb 23, 2022 11:21
[2022-02-23 11:54] VITALS: BP 138/111
--- NOTE | 2022-02-23 12:56 | Tele-ICU Progress Note ---
Subjective Date Seen by a Provider: Feb 23, 2022 Time Seen by a Provider: 12:55 Subjective/Events-last exam (Tele-ICU Physician , Progress Note ) Service provided via interactive audio and video telecommunications E-CARE system to a patient admitted to ICU bed in [facility]. Available chart/ vitals / labs / Images reviewed Video assessment done using teleICU camera, rest of exam as per RN Discussed with RN Events overnight : Afebrile hemodynamically stable Respiratory - I/O = Drips: Pressors- no Consultants: Hospital course: Patient is seen today due to persistent need of ICU care A/P Impression 1. Acute upper respiratory tract infection with acute exacerbation of COPD - improving - cont br-dilators and po steroids - finished ABX course 2. Acute and chronic hypoxic respiratory failure 3. Atrial fibrillation with rapid ventricular rate -on cardizem drip- as per cards - ac with xarelto 4. History of coronary artery disease status post multiple cardiac arrest. 5. Alcohol withdrawal syndrome Lines : , (Central Line Necessity Reviewed) Meier: OG: Nutrition: Analgesia: Anxiety/ delirium VTE Prophylaxis: xarelto Stress Ulcer Prophylaxis: na Plans in collaboration with bedside consultants and IM MDs. Discussed with RN to reach out if any questions or concerns A total of 15 minutes of critical care time was devoted to this patient today, required to treat and/or prevent further deterioration of critical care condition ( as above ) . I am remotely monitoring this patient from another state. I am unable to do the bedside exam, and history/physical and pertinent information is taken from other notes in the computer and bedside staff. Sepsis Event Evaluation Height, Weight, BMI Height: 6'4.00" Weight: 154lbs. 2.0oz. 69.400821rh; 21.19 BMI Method:Stated Exam Exam Patient acknowledged, consented, and participated in this virtual visit which was conducted using real time audio/video Vital Signs Date Time Temp Pulse Resp B/P (MAP) Pulse Ox O2 Delivery O2 Flow Rate FiO2 02/23/22 12:00 36.5 02/23/22 11:54 94 138/111 02/23/22 11:00 98 29 139/91 (107) 93 Nasal Cannula 4.00 02/23/22 10:00 113 27 124/82 (96) 93 Nasal Cannula 4.00 1/9/23 09:00 118 25 99/68 (78) 94 Nasal Cannula 4.00 02/23/22 08:18 92 Nasal Cannula 4.00 02/23/22 08:00 100 29 134/94 (107) 93 Nasal Cannula 4.00 02/23/22 07:57 36.1 111 94 36 02/23/22 07:57 36.1 02/23/22 07:56 94 Nasal Cannula 4.00 02/23/22 07:10 104 02/23/22 07:00 99 27 135/85 (102) 89 Nasal Cannula 4.00 02/23/22 06:15 117 18 134/91 (105) 93 Nasal Cannula 4.00 02/23/22 05:00 93 25 128/86 (100) 91 Nasal Cannula 4.00 02/23/22 04:00 117 130/83 (99) 96 Nasal Cannula 4.00 02/23/22 04:00 94 Nasal Cannula 4.00 02/23/22 03:00 105 25 123/71 (88) 95 Nasal Cannula 4.00 02/23/22 02:58 36.2 Nasal Cannula 4.00 02/23/22 02:00 135 19 110/78 (89) 92 Nasal Cannula 4.00 02/23/22 01:10 Nasal Cannula 4.00 02/23/22 01:09 98 134/91 02/23/22 01:00 103 02/23/22 01:00 103 23 134/91 (105) 96 NIV Bilevel 35.00 02/23/22 00:00 116 24 123/87 (99) 97 NIV Bilevel 35.00 02/22/22 23:23 36.1 NIV Bilevel 35.00 02/22/22 23:00 111 23 127/90 (102) 97 NIV Bilevel 35.00 02/22/22 23:00 96 NIV Bilevel 35 02/22/22 22:14 86 25 96 35.00 02/22/22 22:03 113 24 138/87 (104) 95 NIV Bilevel 35.00 02/22/22 21:23 105 38 142/112 (122) 95 NIV Bilevel 35.00 02/22/22 20:00 123 128/90 (103) 96 NIV Bilevel 35.00 02/22/22 20:00 36.2 02/22/22 19:50 97 NIV Bilevel 35 02/22/22 19:09 124 17 95 35.00 02/22/22 19:00 110 18 122/67 (85) NIV Bilevel 35.00 02/22/22 19:00 116 02/22/22 18:15 97 125/80 02/22/22 18:00 94 125/80 (95) 95 NIV Bilevel 35.00 02/22/22 17:00 137 145/84 (104) 95 NIV Bilevel 35.00 02/22/22 16:01 36.4 02/22/22 16:00 96 Nasal Cannula 4.00 02/22/22 16:00 129 138/101 (113) 93 NIV Bilevel 35.00 02/22/22 15:00 131 28 135/81 (99) 94 NIV Bilevel 35.00 02/22/22 14:00 140 25 131/92 (105) 93 NIV Bilevel 35.00 02/22/22 13:00 121 24 122/70 (87) 94 NIV Bilevel 35.00 02/22/22 13:00 119 I & O 02/23/22 07:00 Intake Total 2775 ml Output Total 2500 ml Balance 275 ml Height & Weight Height: 6'4.00" Weight: 154lbs. 2.0oz. 69.990320cx; 21.19 BMI Method:Stated General Appearance: Cachetic, Mild Distress HEENT: PERRL/EOMI, TMs Normal, Normal ENT Inspection, Pharynx Normal, Moist Mucous Membranes Neck: Full Range of Motion, Normal Inspection, Non Tender, Supple, Carotid Bruit Respiratory: Chest Non Tender, No Accessory Muscle Use, No Respiratory Distress, Crackles, Decreased Breath Sounds Cardiovascular: No Edema, No JVD, Normal Peripheral Pulses, Systolic Murmur, Irregularly Irregular, Tachycardia Capillary Refill: Less Than 3 Seconds Peripheral Pulses: 1+ Dorsalis Pedis (R), 1+ Left Dors-Pedis (L) (See free text) Gastrointestinal: normal bowel sounds, non tender, soft Extremity: Normal Capillary Refill, Normal Inspection, Normal Range of Motion, Non Tender, No Calf Tenderness, No Pedal Edema Neurologic/Psychiatric: Alert, Oriented x3, No Motor/Sensory Deficits, Normal Mood/Affect Skin: Normal Color, Warm/Dry Lymphatic: No Adenopathy Results Lab Laboratory Tests 02/22/22 05:14 02/23/22 04:35 Assessment/Plan Assessment/Plan 1 ALEXIS MARSH MD Feb 23, 2022 12:56
--- NOTE | 2022-02-23 17:05 | Progress Note - Hospitalist ---
MADY RODRIGUEZ 02/23/22 1705: Subjective HPI/CC On Admission Date Seen by Provider: Feb 23, 2022 Subjective/Events-last exam 60 yo M with a history of atrial fibrillation, COPD requiring 3L of supplemental oxygen, CAD and multiple cardiac arrests admitted on 01/18 from the ER for after a same day worsening SOB of several days duration. He had been previously hospitalized in December and stated he never truly felt better since that stay. At the time of admission, he was found to have acute respiratory failure likely related to COPD exacerbation and acute upper respiratory tract infection, respiratory acidosis, and atrial fibrillation. He is currently on 4L of supplemental oxygen by nasal canula and using BiPAP (16/8/30%) at night. Today he denies chest pain, palpitations, SOB, dizziness or headache. Objective Exam Vital Signs Vital Signs Date Time Temp Pulse Resp B/P (MAP) Pulse Ox O2 Delivery O2 Flow Rate FiO2 02/23/22 17:00 102 31 137/97 (110) 92 Nasal Cannula 4.00 02/23/22 12:00 36.5 02/23/22 07:57 36 Capillary Refill : Less Than 3 Seconds General Appearance: No Apparent Distress Respiratory: Lungs Clear Cardiovascular: Tachycardia Gastrointestinal: Normal Bowel Sounds Neurologic/Psychiatric: Alert, Oriented x3 Results/Procedures Lab Laboratory Tests 02/23/22 04:35 Patient resulted labs reviewed. Assessment/Plan Assessment and Plan Assess & Plan/Chief Complaint S/p acute respiratory failure with hypoxia / acute URI / COPD exacerbation - improving; maintained on 4.00L nasal canula and BiPAP on home settings at night - oral prednisone - fluticasone-salmeterol - cetriaxone Respiratory acidosis - resolved as of 02/19 Atrial fibrillation with RVR - rate remains uncontrolled - Cardizem 360 PO - Toprol XL 100 bid - Xarelto Alcohol withdrawal syndrome CAD with a history of multiple cardiac arrests Hypertension Plan: Increase ambulation. PT. JAIMEE KUMARI DO 02/23/222139: Assessment/Plan Assessment and Plan Assess & Plan/Chief Complaint Assessment: Acute on chronic respiratory failure Afib with RVR BiPAP dependent Exacerbation of COPD Plan: Maintain Cardizem drip Appreciate cardiology Supportive care Supervisory-Addendum Brief Verification & Attestation Participated in pt care: history, MDM, physical Personally performed: exam, history, MDM, supervision of care Care discussed with: Medical Student Procedures: n/a Results interpretation: Verified all documentation Verification and Attestation of Medical Student E/M Service A medical student performed and documented this service in my presence. I reviewed and verified all information documented by the medical student and made modifications to such information, when appropriate. I personally performed the physical exam and medical decision making. Jaimee Kumari, Feb 23, 2022,21:40 MADY RODRIGUEZ Feb 23, 2022 17:05 JAIMEE KUMARI DO Feb 23, 2022 21:40
[2022-02-23] MEDS: cefTRIAXone 1 GM/50 ML (PRE-MIX) IV SCH (19:20)
[2022-02-24 05:32] LABS: BASOPHILS % (AUTO) 0 % (0-10); EOSINOPHILS % (AUTO) 0 % (0-10); HEMATOCRIT 45 % (40-54); HEMOGLOBIN 14.9 g/dL (13.3-17.7); LYMPHOCYTES # (AUTO) 1.6 10^3/uL (1.0-4.0); LYMPHOCYTES % (AUTO) 11 % (12-44); MEAN CORPUSCULAR HEMOGLOBIN 34 pg (25-34); MEAN CORPUSCULAR HGB CONC 33 g/dL (32-36); MEAN CORPUSCULAR VOLUME 104 fL (80-99); MEAN PLATELET VOLUME 10.8 fL (9.0-12.2); MONOCYTES # (AUTO) 0.9 10^3/uL (0.0-1.0); MONOCYTES % (AUTO) 6 % (0-12); NEUTROPHILS % (AUTO) 81 % (42-75); PLATELET COUNT 150 10^3/uL (130-400); WHITE BLOOD COUNT 14.9 10^3/uL (4.3-11.0)
[2022-02-24 05:57] LABS: BILIRUBIN,TOTAL 0.7 MG/DL (0.1-1.0); CALCIUM 8.9 MG/DL (8.5-10.1); CREATININE SERUM 0.77 MG/DL (0.60-1.30); MAGNESIUM 1.8 MG/DL (1.6-2.4); PHOSPHORUS 2.9 MG/DL (2.3-4.7); POTASSIUM 3.7 MMOL/L (3.6-5.0); TOTAL PROTEIN 5.8 GM/DL (6.4-8.2)
[2022-02-24] MEDS: POTASSIUM CL 10MEQ/50ML IVPB 50 ML IV SCH (05:59)
[2022-02-24] MEDS: MAGNESIUM 1 GM/100 ML IVPB 100 ML IV SCH (05:59)
[2022-02-24] MEDS: KCL 20 MEQ TAB (K-DUR) PO SCH ×2 (06:00→06:28)
[2022-02-24] MEDS: predniSONE 20 MG TAB PO SCH (06:28)
[2022-02-24] MEDS: FAMOTIDINE 20 MG (PEPCID) TABLET PO SCH ×2 (08:09→20:55)
[2022-02-24] MEDS: ROFLUMILAST 500 MCG TAB (DALIRESP) PO SCH (08:09)
[2022-02-24] MEDS: RIVAROXABAN 20 MG TABLET (XARELTO) PO SCH (08:09)
[2022-02-24] MEDS: AtorvaSTATin TABLET 10 MG TABLET PO SCH (08:09)
[2022-02-24] MEDS: meTOprolol SUCCINATE 100 MG (TOPROL XL) TAB PO SCH ×2 (08:09→20:55)
[2022-02-24] MEDS: LORATADINE (CLARITIN) 10 MG TAB PO SCH (08:09)
--- NOTE | 2022-02-24 08:41 | Cardiology Progress Note ---
Subjective Date Seen by Provider: Feb 24, 2022 Time Seen by Provider: 08:39 Subjective/Events-last exam Patient is laying down in bed, feeling better. Still having cough productive of whitish phlegm Review of Systems General: No Chills, No Night Sweats, No Fatigue, No Malaise, No Appetite, No Other HEENT: No Head Aches, No Visual Changes, No Eye Pain, No Ear Pain, No Dysphasia, No Sinus Congestion, No Post Nasal Drip, No Sore Throat, No Other Pulmonary: Dyspnea; No Cough, No Pleuritic Chest Pain, No Other Cardiovascular: No: Chest Pain, Palpitations, Orthopnea, Paroxysmal Noc. Dyspnea, Edema, Lt Headedness, Other Objective-Cardiology Exam Last Set of Vital Signs Vital Signs 02/23/22 02/24/22 02/24/22 02/24/22 07:57 06:00 07:20 08:00 Temp 36.0 Pulse 135 Resp 7 B/P (MAP) 111/76 (88) Pulse Ox 98 O2 Delivery NIV Bilevel O2 Flow Rate 5.00 FiO2 36 I&O Intake and Output 02/24/22 00:00 Intake Total 2655 ml Output Total 3100 ml Balance -445 ml Intake Oral 2355 ml IV Total 300 ml Output Urine Total 3100 ml # Bowel Movements 1 General: Alert, Oriented X3, Cooperative HEENT: Atraumatic Neck: Supple, No JVD Lungs: Normal Air Movement, Other (expiratory wheezing) Heart: Normal S1, Normal S2, Other (irregular, tachycardic) Abdomen: Normal Bowel Sounds Extremities: No Clubbing, No Cyanosis Skin: No Rashes, No Breakdown Neuro: Normal Speech Psych/Mental Status: Mental Status NL, Mood NL Results Lab Laboratory Tests 02/24/22 04:45 A/P-Cardiology Admission Diagnosis Acute respiratory failure Atrial fibrillation with rapid ventricular response COPD Hypertension Assessment/Plan Status post acute respiratory failure, acute exacerbation of COPD. Patient has been maintained on oxygen at home. Was on BiPAP earlier, currently back on oxygen nasal cannula Improving at this time and maintained on oxygen. Atrial fibrillation with rapid ventricular response, known to have persistent atrial fibrillation, History of ablation in April [address] Mccabe. Had multiple cardiac arrests, complex hospitalization in October 2017. Still tachycardic, Cardizem was increased to 480 mg daily and Toprol-XL 100 mg twice daily. Renée ating medication well. Continue to monitor, stop the Cardizem drip Coronary artery disease, history of stenting using 3.020 mm Promus stent to the right coronary artery done in March 2012. Stress test done on November 01, 2019 showing Baseline atrial fibrillation, decreased uptake involving the mid to apical inferior wall with no reversibility, ejection fraction 40 percent probably due to tachycardia. COPD, using oxygen at night, had a complex hospitalization with Legionella pneumonia and CMV, respiratory failure, multiple cardiac arrest in October 2017. loculated pneumonia underwent right lung decortication on January 28, 2018 resulted in hydropneumothorax and marked emphysema and had prolonged chest tube placement. Currently breathing is slightly better. Continue to monitor Congestive heart failure, chronic left ventricular systolic dysfunction. 2D echo was done in November 2021 with ejection fraction 55 to 60%, left atrial dilatation, PA pressure 45 to 50 mmHg. 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 Continue to monitor Abdominal aortic aneurysm, had a stent placed by Dr. Hogue done in June 2021. I will try to obtain copy of the results Chest pain nonspecific etiology, resolved, Stress test from April 24, 2015 revealed diaphragmatic attenuation with typical male pattern. No significant ischemia or infarct. Hypertension, currently blood pressure is stable. Continue to monitor re Hyperlipidemia, continue to monitor lipids Tobaccoism, has stopped smoking. Encouraged to continue with smoking cessation Alcoholism, has stopped drinking, encouraged to avoid any alcohol Peptic ulcer disease, esophagitis, managed by primary care physician Nonobstructive carotid artery stenosis-most recent carotid duplex done in January 2021, continue to monitor AIDAN PASTOR MD Feb 24, 2022 08:40
--- NOTE | 2022-02-24 09:11 | Tele-ICU Progress Note ---
Subjective Date Seen by a Provider: Feb 24, 2022 Time Seen by a Provider: 09:10 Subjective/Events-last exam (Tele-ICU Physician , Progress Note ) Service provided via interactive audio and video telecommunications E-CARE system to a patient admitted to ICU bed in [facility]. Available chart/ vitals / labs / Images reviewed Video assessment done using teleICU camera, rest of exam as per RN Discussed with RN Events overnight : Afebrile hemodynamically stable Respiratory - 5L I/O = nwf 400 Drips: cardozem gtt Pressors- no Consultants: card Hospital course: Patient is seen today due to persistent need of ICU care A/P Impression 1. Acute upper respiratory tract infection with acute exacerbation of COPD - improving - cont br-dilators and po steroids - decrease to 30 taday - finished ABX course 2. Acute and chronic hypoxic respiratory failure 3. Atrial fibrillation with rapid ventricular rate -on cardizem drip- as per cards - ac with xarelto 4. History of coronary artery disease status post multiple cardiac arrest. 5. Alcohol withdrawal syndrome - non issue Lines : , (Central Line Necessity Reviewed) Meier: OG: Nutrition: Analgesia: Anxiety/ delirium VTE Prophylaxis: xarelto Stress Ulcer Prophylaxis: na Plans in collaboration with bedside consultants and IM MDs. Discussed with RN to reach out if any questions or concerns A total of 15 minutes of critical care time was devoted to this patient today, required to treat and/or prevent further deterioration of critical care condition ( as above ) . Sepsis Event Evaluation Height, Weight, BMI Height: 6'4.00" Weight: 154lbs. 2.0oz. [id number]; 21.07 BMI Method:Stated Exam Exam Patient acknowledged, consented, and participated in this virtual visit which was conducted using real time audio/video Vital Signs Date Time Temp Pulse Resp B/P (MAP) Pulse Ox O2 Delivery O2 Flow Rate FiO2 02/24/22 09:06 Nasal Cannula 5.00 02/24/22 08:46 131 02/24/22 08:00 36.0 02/24/22 07:20 135 02/24/22 06:00 122 7 111/76 (88) 98 NIV Bilevel 5.00 02/24/22 05:00 111 18 122/86 (98) 95 NIV Bilevel 5.00 02/24/22 04:00 96 NIV Bilevel 5.00 02/24/22 04:00 133 24 124/88 (100) 95 NIV Bilevel 5.00 02/24/22 03:53 36.3 02/24/22 03:15 95 18 123/92 (102) 96 NIV Bilevel 5.00 02/24/22 02:00 101 109/76 (87) 95 NIV Bilevel 5.00 02/24/22 01:00 103 22 133/92 (106) 96 NIV Bilevel 5.00 02/24/22 01:00 105 02/24/22 00:30 36.6 02/24/22 00:00 102 21 145/100 (115) 96 NIV Bilevel 5.00 02/23/22 23:59 96 NIV Bilevel 5.00 02/23/22 23:00 118 24 105/90 (95) 96 NIV Bilevel 5.00 02/23/22 22:00 84 18 119/89 (99) 96 NIV Bilevel 5.00 02/23/22 22:00 NIV Bilevel 5.00 02/23/22 21:46 94 NIV Bilevel 4.00 02/23/22 21:00 98 24 132/83 (99) 94 Nasal Cannula 4.00 02/23/22 20:16 93 Nasal Cannula 4.00 02/23/22 20:15 36.4 Nasal Cannula 4.00 02/23/22 20:00 121 31 130/79 (96) 92 Nasal Cannula 4.00 02/23/22 19:03 96 02/23/22 19:00 112 20 107/93 (98) 92 Nasal Cannula 4.00 02/23/22 18:55 92 Nasal Cannula 4.00 02/23/22 18:00 113 36 141/116 (124) 93 Nasal Cannula 4.00 02/23/22 17:00 102 31 137/97 (110) 92 Nasal Cannula 4.00 02/23/22 16:00 106 22 140/103 (115) 86 Nasal Cannula 4.00 02/23/22 16:00 92 Nasal Cannula 4.00 02/23/22 15:00 101 28 130/85 (100) 94 Nasal Cannula 4.00 02/23/22 14:00 112 31 132/102 (112) 92 Nasal Cannula 4.00 02/23/22 13:02 120 02/23/22 13:00 112 20 122/90 (101) 93 Nasal Cannula 4.00 02/23/22 12:00 94 Nasal Cannula 4.00 02/23/22 12:00 99 27 145/96 (112) 92 Nasal Cannula 4.00 02/23/22 12:00 36.5 02/23/22 11:54 94 138/111 02/23/22 11:00 98 29 139/91 (107) 93 Nasal Cannula 4.00 02/23/22 10:00 113 27 124/82 (96) 93 Nasal Cannula 4.00 I & O 02/24/22 06:59 Intake Total 1855 ml Output Total 2775 ml Balance -920 ml Height & Weight Height: 6'4.00" Weight: 154lbs. 2.0oz. 69.545349xe; 21.07 BMI Method:Stated General Appearance: No Apparent Distress HEENT: PERRL/EOMI, TMs Normal, Normal ENT Inspection, Pharynx Normal, Moist Mucous Membranes Neck: Full Range of Motion, Normal Inspection, Non Tender, Supple, Carotid Bruit Respiratory: Lungs Clear Cardiovascular: Tachycardia Capillary Refill: Less Than 3 Seconds Peripheral Pulses: 1+ Dorsalis Pedis (R), 1+ Left Dors-Pedis (L) (See free text) Gastrointestinal: normal bowel sounds, non tender, soft Extremity: Normal Capillary Refill, Normal Inspection, Normal Range of Motion, Non Tender, No Calf Tenderness, No Pedal Edema Neurologic/Psychiatric: Alert, Oriented x3 Skin: Normal Color, Warm/Dry Lymphatic: No Adenopathy Results Lab Laboratory Tests 02/23/22 04:35 02/24/22 04:45 Assessment/Plan Assessment/Plan 1 ALEXIS MARSH MD Feb 24, 2022 09:11
[2022-02-24] MEDS: UMECLIDINIUM BROMIDE (INCRUSE ELLIPTA) 7'S IH SCH (09:47)
[2022-02-24] MEDS: RT--FLUTICASONE/SALMETEROL 232-14 (AIRDUO RespiCLICK) IH SCH ×2 (09:47→21:16)
--- NOTE | 2022-02-24 10:48 | Occupational Therapy Eval ---
OT Evaluation-General/PLF Medical Diagnosis Admission Date Feb 18, 2022 at 18:52 Medical Diagnosis: Acute resp failure/cardiac arrest Onset Date: Feb 18, 2022 Therapy Diagnosis Therapy Diagnosis: Weakness, decreased ADL skills Height/Weight Height (Feet): 6 Height (Inches): 4.00 Weight (Pounds): 154 Weight (Ounces): 2.0 Precautions Precautions/Isolations: Standard Precautions Weight Bear Status Weight Bearing Restriction: Weight Bearing/Tolerated Referral Physician: Dr. Garcia Referral Reason: Activity Tolerance, Self Care, Evaluation/Treatment, Strengthening/ROM Medical History Pertinent Medical History: Arthritis, COPD, Smoking Additional Medical History CHF, CAD Current History Pt. presented to ED with COPD exacerbation and multiple cardiac arrests. Reviewed History: Yes Social History Home: Single Level Entry Into Home: Stairs With Railing Steps Into Home: 5 ADL-Prior Level of Function SCALE: Activities may be completed with or without assistive devices. 4-Fbpypkvlrr-riprbnj completes the activity by him/herself with no assistance from a helper. 5-Set-up or Clean-up Assistance-helper sets up or cleans up; patient completes activity. Banks assists only prior to or following the activity. 4-Supervision or Touching Assistance-helper provides verbal cues and/or touching/steadying and/or contact guard assistance as patient completes acti vity. Assistance may be provided throughout the activity or intermittently. 3-Partial/Moderate Assistance-helper does LESS THAN HALF the effort. Banks lifts, holds or supports trunk or limbs, but provides less than half the effort. 2-Substantial/Maximal Assistance-helper does MORE THAN HALF the effort. Banks lifts or holds trunk or limbs and provides more than half the effort. 1-Juplmobcc-tlmvqw does ALL the effort. Patient does none of the effort to complete the activity. Or, the assistance of 2 or more helpers is required for the patient to complete the activity. If activity was not attempted, code reason: 7-Patient Refused. 9-Not Applicable-not attempted and the patient did not perform the activity before the current illness, exacerbation or injury. 10-Not Attempted due to Environmental Limitations-(lack of equipment, weather restraints, etc.). 88-Not Attempted due to Medical Conditions or Safety Concerns. ADL PLOF Comments Pt. states that he is independent, but has had a complicated medical history. He currently lives with spouse and has a walker but doesn't use it. Pt. drives. Self Care: Unknown Functional Cognition: Independent DME/Equipment: Bath Chair, Tub/Shower DME/Equipment Comments Pt. has a walker and shower chair. Drive Self: Yes OT Current Status Subjective No pain reported. Appearance Pt. up in chair. Agrees to work with OT. Mental Status/Objective Patient Orientation: Person, Place, Time, Situation Attachments: Meier Catheter, IV, Oxygen Current Upper Extremity ROM WFL ADL-Treatment Eating (QC): 6 (per pt.) Oral Hygiene (QC): 5 (Set up. OT gave pt. water and toothbrush with toothpaste. He was able to brush his teeth at chairside.) Shower/Bathe Self (QC): 3 (Min assist for balance in stance. Pt. agrees to simple spongebath while up in chair. He is able to stand with CGA for balance and due to multiple lines/cords. Pt. able to wash all parts but does not attempt to wash feet.) Toileting Hygiene (QC): 3 (Min assist for balance in stance to wash rear and front suzie area, therefore can cleanse self after BM. However, pt. does have catheter.) Other Treatments Pt. up in chair. He has 4L 02 on and becomes SOA with movement and talking. His oxygen levels drop from 90%-82% and back up. Pt. encouraged to take deep breaths during treatment. Education OT Patient Education: Correct positioning, Modified ADL techniques, Progress toward Goal/Update tx plan, Purpose of tx/functional activities, Reviewed precautions, Rehab process, Transfer techniques Teaching Recipient: Patient Teaching Methods: Demonstration, Discussion Response to Teaching: Verbalize Understanding, Return Demonstration OT Emergency Medical Dispatcher Goals Emergency Medical Dispatcher Goals Time Frame: Mar 10, 2022 Eating (QC): 6 Oral Hygiene (QC): 6 Toileting Hygiene (QC): 6 Shower/Bathe Self (QC): 5 Upper Body Dressing (QC): 6 Lower Body Dressing (QC): 6 On/Off Footwear (QC): 6 Additional Goals: 1-Demonstrate ADL Tasks, 2-Verbalize Understanding, 3- ImproveStrength/Renée 1=Demonstrate adherence to instructed precautions during ADL tasks. 2=Patient will verbalize/demonstrate understanding of assistive devic es/modifications for ADL. 3=Patient will improve strength/tolerance for activity to enable patient to perform ADL's. OT Education/Plan Problem List/Assessment Assessment: Decreased Activ Tolerance, Dependent Transfers, Impaired Funct Balance, Impaired I ADL's, Impaired Self-Care Skills Discharge Recommendations Plan/Recommendations: Continue POC Therapy Discharge Recommendati: Post Acute OT Treatment Plan/Plan of Care Treatment,Training & Education: Yes Patient would benefit from OT for education, treatment and training to promote independence in ADL's, mobility, safety and/or upper extremity function for ADL's. Plan of Care: ADL Retraining, Functional Mobility, UE Funct Exercise/Act Treatment Duration: Mar 10, 2022 Frequency: 3 times per week (3-5x/week) Estimated Hrs Per Day: .25 hour per day Agreement: Yes Rehab Potential: Fair Time Start Time: 10:20 Stop Time: 10:45 DATE: Feb 24, 2022 Total Time Billed (hr/min): 25 Billed Treatment Time 1, EVM x 10minutes, ADL x 15minutes ZAKI HARRELL OT Feb 24, 2022 10:48
--- NOTE | 2022-02-24 11:20 | Progress Note - Hospitalist ---
MADY RODRIGUEZ 02/24/22 1120: Subjective Subjective/Events-last exam 60 yo M with a history of atrial fibrillation, COPD requiring 3L of supplemental oxygen, CAD and multiple cardiac arrests admitted on 01/18 from the ER for after a same day worsening SOB of several days duration. He had been previously hospitalized in December and stated he never truly felt better since that stay. At the time of admission, he was found to have acute respiratory failure likely related to COPD exacerbation and acute upper respiratory tract infection, respiratory acidosis, and atrial fibrillation. He continues to have mild SOB with movement and a productive cough producing white phlegm. He also notes difficultly sleeping last night. He is otherwise comfortable and denies chest pain, fluttering sensation, pleuritic pain or dizziness. Objective Exam Vital Signs Vital Signs Date Time Temp Pulse Resp B/P (MAP) Pulse Ox O2 Delivery O2 Flow Rate FiO2 02/24/22 10:24 Nasal Cannula 4.00 02/24/22 09:47 98 02/24/22 09:00 123 140/89 (106) 02/24/22 08:00 26 02/24/22 08:00 36.0 02/23/22 07:57 36 Capillary Refill : Less Than 3 Seconds General Appearance: No Apparent Distress Respiratory: Normal Breath Sounds, No Accessory Muscle Use, No Respiratory Distress Cardiovascular: Tachycardia Gastrointestinal: Normal Bowel Sounds Neurologic/Psychiatric: Alert, Oriented x3 Results/Procedures Lab Laboratory Tests 02/24/22 04:45 Patient resulted labs reviewed. Assessment/Plan Assessment and Plan Assess & Plan/Chief Complaint S/p acute respiratory failure with hypoxia / acute URI / COPD exacerbation - improving; maintained on 3L by nasal canula as of 02/24. Previously on BiPAP. - oral prednisone - fluticasone-salmeterol - cetriaxone Respiratory acidosis - resolved as of 02/19 Atrial fibrillation with RVR - rate remains uncontrolled - Cardizem increased to 480 (360 yesterday) - Toprol XL 100 bid maintained - Xarelto maintained Alcohol withdrawal syndrome CAD with a history of multiple cardiac arrests Hypertension Plan: Remove indwelling cather and begin ambulation/strength building. PTO and AKIRA placed today. JAIMEE KUMARI DO 02/25/22 0518: Subjective HPI/CC On Admission Date Seen by Provider: Feb 24, 2022 Time Seen by Provider: 09:00 Subjective/Events-last exam Pt transition from Cardizem IV to PO CPAP home use is working well Will discontinue catheter Initiate PT and OT Supervisory-Addendum Brief Verification & Attestation Participated in pt care: history, MDM, physical Personally performed: exam, history, MDM, supervision of care Care discussed with: Medical Student Procedures: n/a Results interpretation: Verified all documentation Verification and Attestation of Medical Student E/M Service A medical student performed and documented this service in my presence. I reviewed and verified all information documented by the medical student and made modifications to such information, when appropriate. I personally performed the physical exam and medical decision making. Jaimee Kumari, Feb 25, 2022,05:18 MADY RODRIGUEZ Feb 24, 2022 11:20 JAIMEE KUMARI DO Feb 25, 2022 05:18
--- NOTE | 2022-02-24 11:58 | Physical Therapy Evaluation ---
PT Evaluation-General Medical Diagnosis Admission Date Feb 18, 2022 at 18:52 Medical Diagnosis: Acute resp failure/cardiac arrest Onset Date: Feb 18, 2022 Therapy Diagnosis Therapy Diagnosis: debility Height/Weight Height (Feet): 6 Height (Inches): 4.00 Weight (Pounds): 154 Weight (Ounces): 2.0 Precautions Precautions/Isolations: Standard Precautions Referral Physician: Dr. Garcia Reason for Referral: Evaluation/Treatment Medical History Pertinent Medical History: Arthritis, COPD, Smoking Current History EMS from home due to increase SOA Reviewed History: Yes Social History Home: Single Level Current Living Status: Spouse Entry Into Home: Stairs With Railing PT Steps Into Home: 5 Prior Prior Level of Function SCALE: Activities may be completed with or without assistive devices. 3-Clpoxccney-wzfpjdo completes the activity by him/herself with no assistance from a helper. 5-Set-up or Clean-up Assistance-helper sets up or cleans up; patient completes activity. [place] assists only prior to or following the activity. 4-Supervision or Touching Assistance-helper provides verbal cues and/or touching/steadying and/or contact guard assistance as patient completes activity. Assistance may be provided throughout the activity or intermittently. 3-Partial/Moderate Assistance-helper does LESS THAN HALF the effort. [place] lifts, holds or supports trunk or limbs, but provides less than half the effort. 2-Substantial/Maximal Assistance-helper does MORE THAN HALF the effort. [place] lifts or holds trunk or limbs and provides more than half the effort. 2-Ipxxjsdwa-auagju does ALL the effort. Patient does none of the effort to complete the activity. Or, the assistance of 2 or more helpers is required for the patient to complete the activity. If activity was not attempted, code reason: 7-Patient Refused. 9-Not Applicable-not attempted and the patient did not perform the activity before the current illness, exacerbation or injury. 10-Not Attempted due to Environmental Limitations-(lack of equipment, weather restraints, etc.). 88-Not Attempted due to Medical Conditions or Safety Concerns. Bed Mobility: 6 Transfers (B,C,W/C): 6 Gait: 6 Stairs: 6 Indoor Mobility (Ambulation): Independent Stairs: Independent Prior Devices Use: None PT Evaluation-Current Subjective Patient agrees to PT. Objective Patient Orientation: Normal For Age Attachments: Oxygen (3-4L ) ROM/Strength ROM Lower Extremities bilateral LE WFL Strength Lower Extremities 4/5 grossly bilateral LE all planes Integumentary/Posture Bowel Incontinence: No Bladder Incontinence: No Posture WFL Neuromuscular (Tone, Coordination, Reflexes) grossly intact Sensory Vision: Functional Hearing: Functional Transfers Lying to Sitting/Side of Bed(Q: 6 Sit to Stand (QC): 4 Chair/Myi-tk-Ibhcj Xfer(QC): 4 Gait Mode of Locomotion: Walk Anticipated Mode of Locomotion: Walk Walk 10 feet (QC): 4 Walk 50 ft with 2 Turns(QC): 4 Walk 150 ft (QC): 4 Distance: 275' Gait Assistive Device: FWW Comments/Gait Description safe and functional with no deviation (SBA for initial assessment) Balance Sitting Static: Normal Sitting Dynamic: Normal Standing Static: Normal Standing Dynamic: Normal Assessment/Needs Patient will be seen short term by skilled PT to address functional mobility to ensure safe return to home at maximum LOF. Rehab Potential: Fair PT Fdc Goals Charge Auditor Goals PT Fdc Goals Time Frame: Feb 28, 2022 Roll Left & Right (QC): 6 Sit to Lying (QC): 6 Lying-Sitting on Side/Bed(QC): 6 Sit to Stand (QC): 6 Chair/Yru-ao-Zstat Xfer(QC): 6 Walk 10 feet (QC): 6 Walk 50ft with 2 Turns (QC): 6 Walk 150 ft (QC): 6 PT Plan Problem List Problem List: Activity Tolerance Treatment/Plan Treatment Plan: Continue Plan of Care Treatment Plan: Education, Functional Activity Renée, Functional Strength, Gait, Safety, Therapeutic Exercise Treatment Duration: Feb 28, 2022 Frequency: 5 times per week Estimated Hrs Per Day: .25 hour per day Patient and/or Family Agrees t: Yes Discharge Recommendations Therapy Discharge Recommendati: Home & Family Time Time In: 1117 Time Out: 1134 DATE: Feb 24, 2022 Total Billed Treatment Time: 17 Total Billed Treatment 1 visit EVMod 17 min TOMMY WHITT PT Feb 24, 2022 11:58
[2022-02-25 05:24] LABS: BASOPHILS % (AUTO) 0 % (0-10); EOSINOPHILS % (AUTO) 0 % (0-10)
[2022-02-25 05:26] LABS: HEMATOCRIT 47 % (40-54); HEMOGLOBIN 16.1 g/dL (13.3-17.7); LYMPHOCYTES # (AUTO) 1.9 10^3/uL (1.0-4.0); LYMPHOCYTES % (AUTO) 14 % (12-44); MEAN CORPUSCULAR HEMOGLOBIN 35 pg (25-34); MEAN CORPUSCULAR HGB CONC 34 g/dL (32-36); MEAN CORPUSCULAR VOLUME 104 fL (80-99); MONOCYTES # (AUTO) 0.9 10^3/uL (0.0-1.0); MONOCYTES % (AUTO) 6 % (0-12); NEUTROPHILS # (AUTO) 10.2 10^3/uL (1.8-7.8); NEUTROPHILS % (AUTO) 77 % (42-75); PLATELET COUNT 144 10^3/uL (130-400); WHITE BLOOD COUNT 13.2 10^3/uL (4.3-11.0)
[2022-02-25 06:08] LABS: ALBUMIN 3.3 GM/DL (3.2-4.5); BILIRUBIN,TOTAL 0.8 MG/DL (0.1-1.0); CALCIUM 9.2 MG/DL (8.5-10.1); CREATININE SERUM 0.85 MG/DL (0.60-1.30); MAGNESIUM 1.8 MG/DL (1.6-2.4); PHOSPHORUS 2.9 MG/DL (2.3-4.7); POTASSIUM 4.1 MMOL/L (3.6-5.0); TOTAL PROTEIN 6.4 GM/DL (6.4-8.2)
[2022-02-25] MEDS: KCL 20 MEQ TAB (K-DUR) PO SCH ×2 (06:14→09:04)
[2022-02-25] MEDS: MAGNESIUM 1 GM/100 ML IVPB 100 ML IV SCH (06:14)
[2022-02-25] MEDS: POTASSIUM CL 10MEQ/50ML IVPB 50 ML IV SCH (06:14)
[2022-02-25] MEDS ORDERED: predniSONE 10 MG TAB PO SCH (07:00)
[2022-02-25] MEDS: RT--FLUTICASONE/SALMETEROL 232-14 (AIRDUO RespiCLICK) IH SCH (07:09)
[2022-02-25] MEDS: UMECLIDINIUM BROMIDE (INCRUSE ELLIPTA) 7'S IH SCH (07:10)
[2022-02-25] MEDS: ROFLUMILAST 500 MCG TAB (DALIRESP) PO SCH (09:04)
[2022-02-25] MEDS: FAMOTIDINE 20 MG (PEPCID) TABLET PO SCH (09:04)
[2022-02-25] MEDS: RIVAROXABAN 20 MG TABLET (XARELTO) PO SCH (09:04)
[2022-02-25] MEDS: LORATADINE (CLARITIN) 10 MG TAB PO SCH (09:04)
[2022-02-25] MEDS: meTOprolol SUCCINATE 100 MG (TOPROL XL) TAB PO SCH (09:04)
[2022-02-25] MEDS: AtorvaSTATin TABLET 10 MG TABLET PO SCH (09:04)
--- NOTE | 2022-02-25 10:33 | Cardiology Progress Note ---
Subjective Date Seen by Provider: Feb 25, 2022 Time Seen by Provider: 10:32 Subjective/Events-last exam Patient sitting up in bed, still tachycardic, but reports improvement of his dyspnea. Objective-Cardiology Exam Last Set of Vital Signs Vital Signs 02/23/22 02/25/22 02/25/22 02/25/22 02/25/22 07:57 11:00 12:00 12:52 12:59 Temp 36.5 Pulse 107 Resp 23 B/P (MAP) 136/100 (112) Pulse Ox 100 O2 Delivery Nasal Cannula O2 Flow Rate 4.00 FiO2 36 I&O Intake and Output 02/25/22 00:00 Intake Total 2055 ml Output Total 2625 ml Balance -570 ml Intake Oral 1930 ml IV Total 125 ml Output Urine Total 2625 ml # Bowel Movements 1 General: Alert, Oriented X3, Cooperative HEENT: Atraumatic Neck: Supple, No JVD Lungs: Normal Air Movement, Other (expiratory wheezing) Heart: Normal S1, Normal S2, Other (irregular, tachycardic) Abdomen: Normal Bowel Sounds Extremities: No Clubbing, No Cyanosis Skin: No Rashes, No Breakdown Neuro: Normal Speech Psych/Mental Status: Mental Status NL, Mood NL Results Lab Laboratory Tests 02/25/22 04:43 A/P-Cardiology Admission Diagnosis Acute respiratory failure Atrial fibrillation with rapid ventricular response COPD Hypertension Assessment/Plan Status post acute respiratory failure, acute exacerbation of COPD. Patient has been maintained on oxygen at home. Was on BiPAP earlier, currently back on oxygen nasal cannula Improving at this time and maintained on oxygen. Atrial fibrillation with rapid ventricular response, known to have persistent atrial fibrillation, History of ablation in April [address] Mccabe. Had multiple cardiac arrests, complex hospitalization in October 2017. Still tachycardic, Cardizem was increased to 480 mg daily and Toprol-XL 100 mg twice daily. Tolerating medication well. Continue to monitor Coronary artery disease, history of stenting using 3.020 mm Promus stent to the right coronary artery done in March 2012. Stress test done on November 01, 2019 showing Baseline atrial fibrillation, decreased uptake involving the mid to apical inferior wall with no reversibility, ejection fraction 40 percent probably due to tachycardia. COPD, using oxygen at night, had a complex hospitalization with Legionella pneumonia and CMV, respiratory failure, multiple cardiac arrest in October 2017. loculated pneumonia underwent right lung decortication on January 28, 2018 resulted in hydropneumothorax and marked emphysema and had prolonged chest tube placement. Currently breathing is slightly better. Continue to monitor Congestive heart failure, chronic left ventricular systolic dysfunction. 2D echo was done in November 2021 with ejection fraction 55 to 60%, left atrial dilatation, PA pressure 45 to 50 mmHg. 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 Continue to monitor Abdominal aortic aneurysm, had a stent placed by Dr. Hogue done in June 2021. I will try to obtain copy of the results Chest pain nonspecific etiology, resolved, Stress test from April 24, 2015 revealed diaphragmatic attenuation with typical male pattern. No significant ischemia or infarct. Hypertension, continue to monitor. Hyperlipidemia, continue to monitor lipids Tobaccoism, has stopped smoking. Encouraged to continue with smoking cessation Alcoholism, has stopped drinking, encouraged to avoid any alcohol Peptic ulcer disease, esophagitis, managed by primary care physician Nonobstructive carotid artery stenosis-most recent carotid duplex done in January 2021, continue to monitor Supervisory-Addendum Brief Supervisory Addendum Participated in pt care: history, MDM, physical Personally performed: exam, history, MDM Care discussed with: SILAS Results interpretation: Verified all documentation Notes: Patient was seen and evaluated with Aniceto, examination performed, management plan was discussed, agree with the current scribed note, I made few changes to the note using Italic font Patient was seen at bedside laying down comfortably Still borderline tachycardic, reporting improvement in his dyspnea and requesting to go home Has been tolerating escalating dose of Cardizem and metoprolol well I will add digoxin Discussed the management plan with Dr. Garcia and I can see him as an outpatient tomorrow in the office if he is discharged today and try to titrate his medication. ANICETO BOOTHE Feb 25, 2022 10:33 AIDAN PASTOR MD Feb 25, 2022 13:20
[2022-02-25] MEDS ORDERED: DIGOXIN 0.25 MG/ML (LANOXIN) 2 ML AMP IV ONE (10:45)
--- NOTE | 2022-02-25 11:39 | Physical Therapy Daily Note ---
PT Daily Note-Current Subjective Patient in bed pre tx, agrees to PT, has no complaints of pain. Pain Section J - Health Conditions 1. Rarely or not at all 2. Occasionally 3. Frequently 4. Almost constantly 8. Unable to answer Pain Effect on Sleep: 1 Pain Interference with Therapy: 1 Pain Interference w/Day-to-Day: 1 Appearance Patient sitting in chair in front of sink, will continue with OT. Mental Status Patient Orientation: Person, Place, Situation Attachments: Oxygen Transfers SCALE: Activities may be completed with or without assistive devices. 1-Jqielhhius-ztrrbje completes the activity by him/herself with no assistance from a helper. 5-Set-up or Clean-up Assistance-helper sets up or cleans up; patient completes activity. Hoyt assists only prior to or following the activity. 4-Supervision or Touching Assistance-helper provides verbal cues and/or touching/steadying and/or contact guard assistance as patient completes activity. Assistance may be provided throughout the activity or intermittently. 3-Partial/Moderate Assistance-helper does LESS THAN HALF the effort. Hoyt lifts, holds or supports trunk or limbs, but provides less than half the effort. 2-Substantial/Maximal Assistance-helper does MORE THAN HALF the effort. Hoyt lifts or holds trunk or limbs and provides more than half the effort. 1-Xjobxsufm-mpcftz does ALL the effort. Patient does none of the effort to complete the activity. Or, the assistance of 2 or more helpers is required for the patient to complete the activity. If activity was not attempted, code reason: 7-Patient Refused. 9-Not Applicable-not attempted and the patient did not perform the activity before the current illness, exacerbation or injury. 10-Not Attempted due to Environmental Limitations-(lack of equipment, weather restraints, etc.). 88-Not Attempted due to Medical Conditions or Safety Concerns. Roll Left & Right (QC): 6 Lying to Sitting/Side of Bed(Q: 6 Sit to Stand (QC): 6 Chair/Xji-qg-Hqrcl Xfer(QC): 6 Gait Training Distance: 300' Walk 10 feet (QC): 6 Walk 50 ft with 2 Turns(QC): 6 Walk 150 ft (QC): 6 Gait Assistive Device: FWW slow but steady ambulation, patient was fairly SOB before sitting down when done. Treatments bed mobility and transfers, ambulation Assessment Current Status: Fair Progress SOB with extended activity PT Retirement Goals High Man Goals PT Retirement Goals Time Frame: Feb 28, 2022 Roll Left & Right (QC): 6 Sit to Lying (QC): 6 Lying-Sitting on Side/Bed(QC): 6 Sit to Stand (QC): 6 Chair/Lxg-dj-Jdyeg Xfer(QC): 6 Walk 10 feet (QC): 6 Walk 50ft with 2 Turns (QC): 6 Walk 150 ft (QC): 6 PT Plan Problem List Problem List: Activity Tolerance, Functional Strength, Safety, Balance, Gait, Transfer, ROM Treatment/Plan Treatment Plan: Continue Plan of Care Treatment Plan: Education, Functional Activity Renée, Functional Strength, Gait, Safety, Therapeutic Exercise Treatment Duration: Feb 28, 2022 Frequency: 5 times per week Estimated Hrs Per Day: .25 hour per day Patient and/or Family Agrees t: Yes Safety Risks/Education Patient Education: Gait Training, Transfer Techniques, Correct Positioning, Safety Issues Teaching Recipient: Patient Teaching Methods: Demonstration, Discussion Response to Teaching: Reinforcement Needed Time Time In: 1115 Time Out: 1124 DATE: Feb 25, 2022 Total Billed Treatment Time: 9 Total Billed Treatment 1 visit GT 9' NEGRO BRIDGES PT Feb 25, 2022 11:39
--- NOTE | 2022-02-25 11:44 | Occupational Ther Daily Note ---
OT Current Status-Daily Note Subjective Pt alert, lying in bed. Pt agrees to therapy. No c/o pain. Mental Status/Objective Patient Orientation: Person, Place, Time, Situation Attachments: IV, Oxygen (4L), Telemetry ADL-Treatment Independent sitting at sink for oral care. Pt then requested to sit in room chair beside bed. After session, pt sitting in chair with call light/phone in reach. All needs met in room. Therapy Code Descriptions/Definitions Functional [place] Measure: 0=Not Assessed/NA 4=Minimal Assistance 1=Total Assistance 5=Supervision or Setup 2=Maximal Assistance 6=Modified [place] 3=Moderate Assistance 7=Complete IndependenceSCALE: Activities may be completed with or without assistive devices. 7-Joudfpugct-gbijypd completes the activity by him/herself with no assistance from a helper. 5-Set-up or Clean-up Assistance-helper sets up or cleans up; patient completes activity. Kiana assists only prior to or following the activity. 4-Supervision or Touching Assistance-helper provides verbal cues and/or touching/steadying and/or contact guard assistance as patient completes activity. Assistance may be provided throughout the activity or intermittently. 3-Partial/Moderate Assistance-helper does LESS THAN HALF the effort. Kiana lifts, holds or supports trunk or limbs, but provides less than half the effort. 2-Substantial/Maximal Assistance-helper does MORE THAN HALF the effort. Kiana lifts or holds trunk or limbs and provides more than half the effort. 3-Maijlddeq-tvxrmc does ALL the effort. Patient does none of the effort to complete the activity. Or, the assistance of 2 or more helpers is required for the patient to complete the activity. If activity was not attempted, code reason: 7-Patient Refused. 9-Not Applicable-not attempted and the patient did not perform the activity before the current illness, exacerbation or injury. 10-Not Attempted due to Environmental Limitations-(lack of equipment, weather restraints, etc.). 88-Not Attempted due to Medical Conditions or Safety Concerns. Other Treatment Pt ambulated around ICU floor with CGA/SBA using FWW. OT Halfway Goals Lead Network Engineer Goals Time Frame: Mar 10, 2022 Eating (QC): 6 Oral Hygiene (QC): 6 Toileting Hygiene (QC): 6 Shower/Bathe Self (QC): 5 Upper Body Dressing (QC): 6 Lower Body Dressing (QC): 6 On/Off Footwear (QC): 6 Additional Goals: 1-Demonstrate ADL Tasks, 2-Verbalize Understanding, 3- ImproveStrength/Renée 1=Demonstrate adherence to instructed precautions during ADL tasks. 2=Patient will verbalize/demonstrate understanding of assistive devices/modifications for ADL. 3=Patient will improve strength/tolerance for activity to enable patient to perform ADL's. OT Education/Plan Problem List/Assessment Assessment: Decreased Activ Tolerance Discharge Recommendations Plan/Recommendations: Continue POC Treatment Plan/Plan of Care Patient would benefit from OT for education, treatment and training to promote independence in ADL's, mobility, safety and/or upper extremity function for ADL's. Plan of Care: ADL Retraining, Functional Mobility, UE Funct Exercise/Act Treatment Duration: Mar 10, 2022 Frequency: 3 times per week (3-5x/week) Estimated Hrs Per Day: .25 hour per day Agreement: Yes Rehab Potential: Fair Time Start Time: 11:20 Stop Time: 11:35 DATE: Feb 25, 2022 Total Time Billed (hr/min): 15 Billed Treatment Time 1 visit-ADL 1 (15 min) BLAINE JERONIMO Feb 25, 2022 11:44
[2022-02-25] MEDS ORDERED: FAMO20TA5 PO (11:56)
[2022-02-25] MEDS ORDERED: MTP100TCR PO (11:56)
[2022-02-25] MEDS ORDERED: DILT240C91 PO (11:56)
[2022-02-25] MEDS ORDERED: DIGO125T18 PO (11:56)
[2022-02-25] MEDS ORDERED: PRED10TA22 PO (11:56)
--- NOTE | 2022-02-25 11:57 | Discharge Summary ---
Discharge Summary Hospital Course Was the Problem List Reviewed?: Yes Problems/Dx: (1) Permanent atrial fibrillation (2) Acute on chronic heart failure with preserved ejection fraction (HFpEF) (3) Primary hypertension (4) Coronary artery disease without angina pectoris (5) Pulmonary hypertension (6) Mixed hyperlipidemia (7) Acute on chronic respiratory failure with hypoxemia (8) Chronic obstructive pulmonary disease (9) Cigarette smoker Hospital Course Date of Admission: Feb 18, 2022 at 18:52 Admission Diagnosis : Family Physician/Provider: Flavio Jackson MD Date of Discharge: 02/25/22 Discharge Diagnosis: [ ] Hospital Course: CAD and multiple cardiac arrests admitted on 02/18 from the ER after same day visit for worsening SOB of several days duration (despite using BiPAP he had at home from a previous COPD exacerbation). He had been previously hospitalized in December for pneumonia, and stated he felt he never returned to his normal state since that stay. At the time of admission, he was found to have acute respiratory failure likely related to COPD exacerbation and acute upper respiratory tract infection (per CXR showing COPD and opacities in the right upper and lower lung improved relative to imaging done in December), respiratory acidosis, and atrial fibrillation. He was placed in ICU and started on BiPAP (/, 30%) IV solumedrol, cetriaxone and duonebs. Cardiology was consulted on 02/19 and initiated Cardizem drip and rivoraxaban. His acidosis resolved on 02/19 and he no longer showed signs of respiratory distress by 02/21; his breathing continued to improve and he denied SOB with rest thereafter. The patient was tachycardic thoughout his stay; there was some improvement on 02/25 after many adjustments in rate control (amiodarone once on 02/19, and escalations in Cardizem and metoprolol to 480 mg and 100 mg bid by 02/25, respectively). He was otherwise improving and requesting to go home and was discharged on 02/25 with cardiology medications and a next-day cardiology appointment. Labs and Pending Lab Test: Laboratory Tests 02/25/22 04:43: White Blood Count 13.2H, Red Blood Count 4.58, Hemoglobin 16.1, Hematocrit 47, Mean Corpuscular Volume 104H, Mean Corpuscular Hemoglobin 35H, Mean Corpuscular Hemoglobin Concent 34, Red Cell Distribution Width 13.0, Platelet Count 144, M feder[place] Platelet Volume 11.0, Immature Granulocyte % (Auto) 2, Neutrophils (%) (Auto) 77H, Lymphocytes (%) (Auto) 14, Monocytes (%) (Auto) 6, Eosinophils (%) (Auto) 0, Basophils (%) (Auto) 0, Neutrophils # (Auto) 10.2H, Lymphocytes # (Auto) 1.9, Monocytes # (Auto) 0.9, Eosinophils # (Auto) 0.0, Basophils # (Auto) 0.0, Immature Granulocyte # (Auto) 0.3H, Percent Immature Platelet Fraction 7.8H , Sodium Level 139, Potassium Level 4.1, Chloride Level 101, Carbon Dioxide Level 30, Anion Gap 8, Blood Urea Nitrogen 19H, Creatinine 0.85, Estimat Glomerular Filtration Rate 96, BUN/Creatinine Ratio 22, Glucose Level 78, Calcium Level 9.2, Corrected Calcium 9.8, Phosphorus Level 2.9, Magnesium Level 1.8, Total Bilirubin 0.8, Aspartate Amino Transf (AST/SGOT) 44H, Alanine Aminotransferase (ALT/SGPT) 106H, Alkaline Phosphatase 86, Total Protein 6.4, Albumin 3.3 Microbiology 02/18/22 MRSA Screen - Final, Complete MRSA not isolated Home Meds Active Reported [Liquid Iv Otc] 1 Packet PO DAILY [Balance Of Nature] 2 Ea PO TID Diltiazem 24Hr ER (Diltiazem HCl) 300 Mg Cap.er.24h 300 Mg PO DAILY Roflumilast 500 Mcg Tablet 500 Mcg PO DAILY Cetirizine HCl 10 Mg Tablet 10 Mg PO DAILY Potassium Chloride 20 Meq Tab.er.prt 20 Meq PO DAILY Ventolin Hfa (Albuterol Sulfate) 18 Gm Hfa.aer.ad 2 Puff INH Q6H PRN Breztri Aerosphere Inhaler (Budesonide/Glycopyr/Formoterol) 10.7 Gm Hfa.aer.ad 2 Puff INH BID Xarelto (Rivaroxaban) 20 Mg Tablet 20 Mg PO DAILY Metoprolol Succinate 100 Mg Tab.er.24h 100 Mg PO DAILY Atorvastatin Calcium 10 Mg Tablet 10 Mg PO DAILY Assessment/Pt Instructions pcp 1 week Discharge Planning: <30 minutes discharge planning Discharge Instructions Discharge Diet: No Restrictions Discharge Physical Examination Vital Signs Vital Signs Date Time Temp Pulse Resp B/P (MAP) Pulse Ox O2 Delivery O2 Flow Rate FiO2 1/11/23 11:00 101 27 119/73 (88) 100 Nasal Cannula 4.00 02/25/22 08:12 36.6 02/23/22 07:57 36 General Appearance: No Apparent Distress, WD/WN, Chronically ill Respiratory: Lungs Clear, Normal Breath Sounds Cardiovascular: Irregularly Irregular Allergies: Coded Allergies: No Known Drug Allergies (Unverified , 03/17/12) Discharge Summary Date of Admission Feb 18, 2022 at 18:52 Date of Discharge Discharge Date: Feb 25, 2022 Discharge Diagnosis Assessment: Acute on chronic respiratory failure Afib with RVR BiPAP dependent Exacerbation of COPD Plan: Maintain Cardizem drip Appreciate cardiology Supportive care (1) Permanent atrial fibrillation Assessment & Plan: He has had atrial fibrillation going back at least several years. He developed significant tachycardia on 02/19 which improved with IV amiodarone. I discontinued the IV amiodarone on 02/20 when the bag was completed. He still has persistent tachycardia. I gave him an extra dose of diltiazem on 02/21 and increased the dose to 360 mg daily as of 02/22.. We will continue beta- manjit. I have asked the nurse to attempt to wean off the IV diltiazem later this morning after he receives his morning oral medication. If the tachycardia persists, we may need to increase the metoprolol succinate to 200 mg daily. He should continue rivaroxaban for stroke prophylaxis. (2) Acute on chronic heart failure with preserved ejection fraction (HFpEF) Assessment & Plan: He may have had some slight decompensation of his heart failure from the previous IV fluids he had received. He received 1 dose of IV furosemide on 02/20. His chest x-ray on 02/21 did not show any significant pulmonary congestion. I do not believe he needs any additional diuretic at this point in time. He does not routinely take furosemide at home. (3) Primary hypertension Assessment & Plan: He has been reasonably normotensive on the current medication. We will need to watch his blood pressure closely if we need to make any other additional adjustments to the beta-manjit to control the tachycardia from the atrial fibrillation. (4) Coronary artery disease without angina pectoris Assessment & Plan: He has not been having any angina. He is on beta-manjit and statin medication. He is not on aspirin because he is on rivaroxaban for the atrial fibrillation. (5) Pulmonary hypertension Assessment & Plan: Most likely due to his chronic obstructive pulmonary disease. He may benefit from home oxygen if not already using this. This will condition will need to be followed longitudinally. (6) Mixed hyperlipidemia Assessment & Plan: Continue statin medication. (7) Acute on chronic respiratory failure with hypoxemia Assessment & Plan: Most likely due to an exacerbation of his chronic obstructive pulmonary disease. There may have been some superimposed component due to heart failure. We will proceed as above. (8) Chronic obstructive pulmonary disease Assessment & Plan: This is being managed by the primary team. (9) Cigarette smoker Assessment & Plan: He needs to quit smoking. He states that after this hospitalization, he plans to quit. STAR KUMARI DO Feb 25, 2022 11:57
--- NOTE | 2022-02-25 18:41 | Progress Note ---
MADY RODRIGUEZ 02/25/22 1841: Progress Note CAD and multiple cardiac arrests admitted on 02/18 from the ER after same day visit for worsening SOB of several days duration (despite using BiPAP he had at home from a previous COPD exacerbation). He had been previously hospitalized in December for pneumonia, and stated he felt he never returned to his normal state since that stay. At the time of admission, he was found to have acute respiratory failure likely related to COPD exacerbation and acute upper respiratory tract infection (per CXR showing COPD and opacities in the right upper and lower lung improved relative to imaging done in December), respiratory acidosis, and atrial fibrillation. He was placed in ICU and started on BiPAP ( /, 30%) IV solumedrol, cetriaxone and duonebs. Cardiology was consulted on 02/19 and initiated Cardizem drip and rivoraxaban. His acidosis resolved on 02/19 and he no longer showed signs of respiratory distress by 02/21; his breathing continued to improve and he denied SOB with rest thereafter. The patient was tachycardic thoughout his stay; there was some improvement on 02/25 after many adjustments in rate control (amiodarone once on 02/19, and escalations in Cardizem and metoprolol to 480 mg and 100 mg bid by 02/25, respectively). He was otherwise improving and requesting to go home and was discharged on 02/25 with cardiology medications and a next-day cardiology appointment. JAIMEE KUMARI DO 02/25/22 2019: Supervisory-Addendum Brief Verification & Attestation Participated in pt care: history, MDM, physical Personally performed: exam, history, MDM, supervision of care Care discussed with: Medical Student Procedures: n/a Results interpretation: Verified all documentation Verification and Attestation of Medical Student E/M Service A medical student performed and documented this service in my presence. I reviewed and verified all information documented by the medical student and made modifications to such information, when appropriate. I personally performed the physical exam and medical decision making. Jaimee Kumari, Feb 25, 2022,20:19 JENNIFERMADY Feb 25, 2022 18:41 JAIMEE KUMARI DO Feb 25, 2022 20:19
[2022-02-26] MEDS ORDERED: DIGOXIN 0.125 MG (LANOXIN) TAB PO SCH (09:00)
== END 2022-02-25 14:30 | disposition home or self-care (01) | DRG 189 ==
LOC: EDUNIT# 17:18 → ER 17:19 → ICU 18:52
PROVIDERS: ADMIT Family Medicine; ATTEND Internal Medicine
PROC: 5A09357 Assistance with Respiratory Ventilation, Less than 24 Consecutive Hours, Continuous Positive Airway Pressure (ICD-10-PCS; principal; 2022-02-18)
DX: J96.21 Acute and chronic respiratory failure with hypoxia (principal); I50.33 Acute on chronic diastolic (congestive) heart failure; E87.29 Other acidosis; I48.21 Permanent atrial fibrillation; F10.239 Alcohol dependence with withdrawal, unspecified; J43.9 Emphysema, unspecified; J06.9 Acute upper respiratory infection, unspecified; I11.0 Hypertensive heart disease with heart failure; F17.210 Nicotine dependence, cigarettes, uncomplicated; Z20.822 Contact with and (suspected) exposure to COVID-19; E78.2 Mixed hyperlipidemia; I25.10 Atherosclerotic heart disease of native coronary artery without angina pectoris; M19.91 Primary osteoarthritis, unspecified site; I27.20 Pulmonary hypertension, unspecified; K27.9 Peptic ulcer, site unspecified, unspecified as acute or chronic, without hemorrhage or perforation; K20.90 Esophagitis, unspecified without bleeding; Z79.01 Long term (current) use of anticoagulants; Z79.52 Long term (current) use of systemic steroids; Z95.5 Presence of coronary angioplasty implant and graft
CPT/HCPCS: 36415; 71045; 80053; 81000; 82550; 82553; 82805; 83735; 83874; 83880; 84100; 84484; 85007; 85025; 85027; 85379; 85610; 85730; 87081; 87636; 93005; 93041; 93306; 94640; 94660; 96365; 96375

== ENCOUNTER 2022-07-13 11:27 | Inpatient (IN) | payer MEDICARE, MEDICAID ==
[~2022-07-13] VITALS: Ht 182.9 cm; Wt 70.0 kg
[~2022-07-13 11:27] MED LIST changes: +BALANCE OF NATURE PO; +DIGO125T18 PO; +DILT300C52 PO; +ENAL-70 PO; -ENAL20TA16 PO; +FAMO20TA5 PO; +PRED10TA22 PO; +ROFL500T9 PO; +[UNRECOGNIZED DRUG - OTHER]; +[UNRECOGNIZED DRUG - OTHER] PO
--- NOTE | 2022-07-13 11:38 | ED Respiratory ---
General Chief Complaint: Respiratory Problems Stated Complaint: SOA Source: patient, EMS History of Present Illness Date Seen by Provider: July 13, 2022 Time Seen by Provider: 11:27 Initial Comments Patient is a 66-year-old male who presents to the emergency department with a chief complaint of shortness of breath. Patient states that he normally wears CPAP at night to sleep. He woke up this morning to get up and around, felt very short of breath and put his CPAP back on. When he checked his oxygen after he had gotten up and around it was 82%. He has a little bit more coughing currently than usual. Normally he states his cough clears after morning coffee. He denies fevers or chills. He denies chest pain. No sore throat runny nose. No swelling in his legs. He does have a history of congestive heart failure. 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 He states he had pneumonia about 5 or 6 weeks ago and spent a week in the hospital. He does still smoke, today was supposed to be his quit date. Known history of atrial fibrillation. Chronically anticoagulated on Xarelto. States that he is compliant with his daily medications. Timing/Duration: this morning Severity: severe Prior Episodes/Possible Cause: occasional episodes Associated Symptoms: cough, shortness of breath Allergies and Home Medications Allergies Coded Allergies: No Known Drug Allergies (Unverified , 03/17/12) Patient Home Medication List Home Medication List Reviewed: Yes Albuterol Sulfate (Ventolin Hfa) 18 Gm Hfa.aer.ad, 2 PUFF INH Q6H PRN for SHORTNESS OF BREATH, (Reported) Entered as Reported by: IVELISSE BALLARD on 12/09/20 1158 Last Action: Reviewed Aspirin (Aspirin EC) 81 Mg Tablet.dr, 81 MG PO DAILY Prescribed by: STAR KUMARI on 07/18/22 1144 Atorvastatin Calcium (Atorvastatin Calcium) 10 Mg Tablet, 10 MG PO DAILY, (Reported) Entered as Reported by: NIRAV GAFFNEY on 11/01/17 1057 Last Action: Reviewed Budesonide/Glycopyr/Formoterol (Breztri Aerosphere Inhaler) 10.7 Gm Hfa.aer.ad, 2 PUFF INH BID, (Reported) Entered as Reported by: IVELISSE BALLARD on 12/09/20 1158 Last Action: Reviewed Cefdinir (Cefdinir) 300 Mg Capsule, 300 MG PO BID Prescribed by: STAR KUMARI on 07/18/22 1144 Digoxin (Digoxin) 125 Mcg (0.125 Mg) Tablet, 125 MCG PO DAILY, (Reported) Entered as Reported by: IVELISSE BALLARD on 07/14/22 1336 Last Action: Reviewed Diltiazem HCl (Diltiazem ER) 240 Mg Tab.er.24h, 240 MG PO BID, (Reported) Entered as Reported by: IVELISSE BALLARD on 07/14/22 1338 Last Action: Reviewed Folic Acid (Folic Acid) 1 Mg Tablet, 1 MG PO DAILY Prescribed by: STAR KUMARI on 07/18/22 1144 Hydroxyzine HCl (Hydroxyzine HCl) 10 Mg Tablet, 10 MG PO Q6H PRN for ANXIETY Prescribed by: STAR KUMARI on 07/18/22 1144 Ipratropium/Albuterol Sulfate (Iprat-Albut 0.5-3(2.5) mg/3 ml) 0.5 Mg-3 Mg (2.5 Mg Base)/3 Ml Ampul.neb, 3 ML INH RTQ4HR Prescribed by: STAR KUMARI on 07/18/22 1144 Lorazepam (Ativan) 0.5 Mg Tablet, 0.5 MG PO Q12H PRN for ANXIETY Prescribed by: STAR KUMARI on 07/18/22 1145 Magnesium Oxide (Magnesium Oxide) 400 Mg (241.3 Mg Magnesium) Tablet, 400 MG PO BID Prescribed by: STAR KUMARI on 07/18/22 1144 Metoprolol Tartrate (Metoprolol Tartrate) 25 Mg Tablet, 25 MG PO BID Prescribed by: STAR KUMARI on 07/18/22 1144 Multivitamin/Iron/Folic Acid (Tab-A-Siabel Multivit with Iron) 18 Mg Iron-400 Mcg Tablet, 1 EA PO DAILY@0700 Prescribed by: STAR KUMARI on 07/18/22 1144 Nicotine (Nicotine Patch) 21 Mg/24 Hour Patch.td24, 21 MG TD DAILY Prescribed by: STAR KUMARI on 07/18/22 1211 Oxycodone Hcl (Oxyir Tablet) 5 Mg Tab, 5 MG PO Q4HR PRN for PAIN-SEE DOSE INSTRUCTIONS Prescribed by: STAR KUMARI on 07/18/22 1145 Pantoprazole Sodium (Protonix) 40 Mg Tablet.dr, 40 MG PO DAILY, (Reported) Entered as Reported by: SREEDHAR RAGLAND on 07/13/22 1337 Last Action: Reviewed Rivaroxaban (Xarelto) 20 Mg Tablet, 20 MG PO DAILY, (Reported) Entered as Reported by: IVELISSE BALLARD on 12/09/201157 Last Action: Reviewed Roflumilast (Roflumilast) 500 Mcg Tablet, 500 MCG PO DAILY, (Reported) Entered as Reported by: IVELISSE BALLARD on 02/19/221137 Last Action: Reviewed [Balance Of Nature] , 3 EA PO DAILY, (Reported) Entered as Reported by: IVELISSE BALLARD on 02/19/221137 Last Action: Reviewed [Liquid Iv Otc] , 1 PACKET PO DAILY, (Reported) Entered as Reported by: IVELISSE BALLARD on 02/19/221137 Last Action: Reviewed Discontinued Medications Cetirizine HCl (Cetirizine HCl) 10 Mg Tablet, 10 MG PO DAILY, (Reported) Discontinued Reason: No Longer Taking Entered as Reported by: IVELISSE BALLARD on 12/09/201157 Last Action: Discontinued Digoxin (Digox) 125 Mcg (0.125 Mg) Tablet, 0.125 MG PO DAILY Discontinued Reason: Duplicate Order Prescribed by: STAR KUMARI on 02/25/221155 Last Action: Discontinued Diltiazem HCl (Diltiazem 24Hr ER) 240 Mg Cap.er.24h, 480 MG PO DAILY Discontinued Reason: Duplicate Order Prescribed by: STAR KUMARI on 02/25/221155 Last Action: Discontinued Famotidine (Famotidine) 20 Mg Tablet, 20 MG PO BID Discontinued Reason: No Longer Taking Prescribed by: STAR KUMARI on 02/25/221155 Last Action: Discontinued Metoprolol Succinate (Metoprolol Succinate) 100 Mg Tab.er.24h, 100 MG PO BID Prescribed by: STAR KUMARI on 02/25/221155 Last Action: Reviewed Potassium Chloride (Potassium Chloride) 20 Meq Tab.er.prt, 20 MEQ PO DAILY, (Reported) Entered as Reported by: IVELISSE BALLARD on 12/09/201157 Last Action: Reviewed Review of Systems Review of Systems Constitutional: see HPI EENTM: no symptoms reported Respiratory: cough, short of breath Cardiovascular: no symptoms reported Gastrointestinal: no symptoms reported Genitourinary: no symptoms reported Musculoskeletal: no symptoms reported Skin: no symptoms reported Psychiatric/Neurological: Anxiety Past Wuynujp-Brzcla-Qlfwql Hx Immunizations Up To Date Tetanus Booster (TDap): Unknown PED Vaccines UTD: Yes First/Initial COVID19 Vaccinat: 2020 Second COVID19 Vaccination Rapheal: 2020 Third COVID19 Vaccination Date: 04/18/2021 Seasonal Allergies Seasonal Allergies: No Past Medical History Surgery/Hospitalization HX: ABLASION, HEART STENT, BRONCHOSCOPY, NOSE SURGERY, KNEE SCOPE, COPD, HTN, HIGH CHOL, AFIB, TAKES XERALTO Surgeries: Yes Lobectomy Respiratory: Yes (Tobaccoism) Pneumonia, COPD Cardiac: Yes (cardiac mass versus thrombus. STENTS, ABLATION) Atrial Fibrillation, Coronary Artery Disease, High Cholesterol, Hypertension Neurological: No Reproductive Disorders: No Genitourinary: No Gastrointestinal: No Musculoskeletal: Yes Arthritis Endocrine: No HEENT: No Cancer: No Psychosocial: No Integumentary: No Blood Disorders: No Family Medical History Asthma 19 MOTHER Cancer of extrahepatic bile ducts 19 FATHER Diabetes mellitus G8 SISTER FH: COPD (chronic obstructive pulmonary disease) 19 MOTHER Heart Disease, Cancer, Lung Disease Physical Exam Capillary Refill : Height: 6'4.00" Weight: 154lbs. 2.0oz. [id number]; 21.07 BMI Method:Stated General Appearance: moderate distress, thin Eyes: Bilateral Eye Normal Inspection, Bilateral Eye PERRL, Bilateral Eye EOMI HEENT: other (Dry oral mucosa) Neck: normal inspection Respiratory: respiratory distress (Conversational dyspnea, 3-4 words at a time), accessory muscle use, crackles (Coarse crackles throughout both lungs) Cardiovascular: irregularly irregular Gastrointestinal: normal bowel sounds, non tender, soft Extremities: normal range of motion, non-tender, normal inspection, no pedal edema Neurologic/Psychiatric: no motor/sensory deficits, alert, normal mood/affect, oriented x 3 Skin: normal color, other (Mildly diaphoretic) Focused Exam Lactate Level 07/13/22 12:02: Lactic Acid Level 1.84 Lactic Acid Level Laboratory Tests Test 07/13/22 12:02 Lactic Acid Level 1.84 MMOL/L (0.50-2.00) Procedures/Interventions Date of ETT Placement: Nov 13, 2017 Time of ETT Placement: 0810 Progress/Results/Core Measures Suspected Sepsis Recent Fever Within 48 Hours: No Infection Criteria Present: Suspected New Infection New/Unexplained Altered Menta: No Within 3hrs of presentation: Admin fluids, Blood cultures prior to ABX's, Lactate level SIRS Temperature: Pulse: Respiratory Rate: Blood Pressure / Mean: 07/13/22 12:02: Lactic Acid Level 1.84 Laboratory Tests 07/13/22 11:42: INR Comment 1.7H Results/Orders Lab Results Laboratory Tests Test 07/13/22 11:42 07/13/22 12:02 07/13/22 12:23 Range/Units White Blood Count 15.3 H 4.3-11.0 10^3/uL Red Blood Count 4.19 L 4.30-5.52 10^6/uL Hemoglobin 14.5 13.3-17.7 g/dL Hematocrit 41 40-54 % Mean Corpuscular Volume 99 80-99 fL Mean Corpuscular Hemoglobin 35 H 25-34 pg Mean Corpuscular Hemoglobin Concent 35 32-36 g/dL Red Cell Distribution Width 13.0 10.0-14.5 % Platelet Count 145 130-400 10^3/uL Mean Platelet Volume 10.2 9.0-12.2 fL Immature Granulocyte % (Auto) 1 % Neutrophils (%) (Auto) 89 H 42-75 % Lymphocytes (%) (Auto) 5 L 12-44 % Monocytes (%) (Auto) 4 0-12 % Eosinophils (%) (Auto) 0 0-10 % Basophils (%) (Auto) 0 0-10 % Neutrophils # (Auto) 13.6 H 1.8-7.8 10^3/uL Lymphocytes # (Auto) 0.8 L 1.0-4.0 10^3/uL Monocytes # (Auto) 0.7 0.0-1.0 10^3/uL Eosinophils # (Auto) 0.0 0.0-0.3 10^3/uL Basophils # (Auto) 0.0 0.0-0.1 10^3/uL Immature Granulocyte # (Auto) 0.1 0.0-0.1 10^3/uL Neutrophils % (Manual) 91 % Lymphocytes % (Manual) 4 % Monocytes % (Manual) 1 % Eosinophils % (Manual) 0 % Basophils % (Manual) 0 % Band Neutrophils 4 % Percent Immature Platelet Fraction 7.4 0.0-7.6 % Blood Morphology Comment NORMAL Prothrombin Time 20.1 H 12.2-14.7 SEC INR Comment 1.7 H 0.8-1.4 Activated Partial Thromboplast Time 31 24-35 SEC Sodium Level 129 L 135-145 MMOL/L Potassium Level 4.8 3.6-5.0 MMOL/L Chloride Level 95 L 98-107 MMOL/L Carbon Dioxide Level 22 21-32 MMOL/L Anion Gap 12 5-14 MMOL/L Blood Urea Nitrogen 12 7-18 MG/DL Creatinine 1.02 0.60-1.30 MG/DL Estimat Glomerular Filtration Rate 81 BUN/Creatinine Ratio 12 Glucose Level 96 70-105 MG/DL Calcium Level 9.0 8.5-10.1 MG/DL Corrected Calcium 9.3 8.5-10.1 MG/DL Magnesium Level 1.4 L 1.6-2.4 MG/DL Total Bilirubin 1.1 H 0.1-1.0 MG/DL Aspartate Amino Transf (AST/SGOT) 24 5-34 U/L Alanine Aminotransferase (ALT/SGPT) 24 0-55 U/L Alkaline Phosphatase 84 40-136 U/L Troponin I 0.039 H <0.028 NG/ML B-Type Natriuretic Peptide 153.5 H <100.0 PG/ML Total Protein 6.4 6.4-8.2 GM/DL Albumin 3.6 3.2-4.5 GM/DL Lactic Acid Level 1.84 0.50-2.00 MMOL/L Blood Gas Puncture Site R Rad Blood Gas Patient Temperature 37.5 Arterial Blood pH 7.34 *L 7.37-7.43 Arterial Blood Partial Pressure CO2 51 H 35-45 MMHG Arterial Blood Partial Pressure O2 125 H 79-93 MMHG Arterial Blood HCO3 26 23-27 MMOL/L Arterial Blood Total CO2 27.9 21.0-31.0 MMOL/L Arterial Blood Oxygen Saturation 99 94-100 % Arterial Blood Base Excess 1.3 -2.5-2.5 MMOL/L Harris Test YES-POS Blood Gas Ventilator Setting NO Blood Gas Inspired Oxygen 80% Micro Results Microbiology 07/13/22 Blood Culture - Final, Complete No growth My Orders Orders - LAN RAMOS MD Cbc With Automated Diff (07/13/22 11:38) Magnesium (07/13/22 11:38) Chest 1 View, Ap/Pa Only (07/13/22 11:38) Ekg Tracing (07/13/22 11:38) Comprehensive Metabolic Panel (07/13/22 11:38) Protime With Inr (07/13/22 11:38) Partial Thromboplastin Time (07/13/22 11:38) O2 (07/13/22 11:38) Monitor-Rhythm Ecg Trace Only (07/13/22 11:38) Lipid Panel (07/14/22 06:00) Ed Iv/Invasive Line Start (07/13/22 11:38) Troponin I [place] (07/13/22 11:38) Bnp [place] (07/13/22 11:38) Blood Culture (07/13/22 11:38) Lactic Acid Analyzer (07/13/22 11:38) Manual Differential (07/13/22 11:42) Arterial Blood Gas (07/13/22 12:20) Meropenem (Merrem 1000 Mg) (07/13/22 12:30) Vancomycin Injection (Vancomycin Injecti (07/13/22 12:30) Ed Admission (Communication) (07/13/22 12:29) Medications Given in ED Vital Signs/I&O Capillary Refill : Progress Note : Progress Note Patient seen and examined by me. Evaluation today includes physical exam, "sepsis" work-up to include CBC, Chem-12, troponin, bnp, coags, ABG, chest x- ray, blood cultures and lactic acid. Pertinent physical exam findings thin appearing male who also appears older than stated age in moderate respiratory distress. Diffuse crackles, expiratory wheezes. Increased work of breathing noted. Heart is regular, abdomen is soft, no lower extremity edema is noted. He is awake, alert, oriented with no focal neurologic deficits. Differential diagnosis based on history and physical exam, acute exacerbation of COPD, pneumonia, sepsis, heart failure/acute coronary syndrome. Labs and imaging reviewed and independently interpreted by me. Chest x-ray read by radiologist. CBC shows a white count of 15.3 with hemoglobin of 14.5 hematocrit of 41, platelets of 145. Patient has 89% segmented neutrophils. Chem-12 is remarkable for sodium of 129, magnesium of 1.4, otherwise chemistry is unremarkable. His troponin is detectable at 0.039. PT is 20.1, INR 1.7, PTT of 31. BNP of 153.5, lactic acid 1.84. ABG shows a pH of 7.34, PCO2 of 51 PO2 of 125, bicarb of 26, sat of 99% on 80% FiO2 on BiPAP. Chest x-ray shows Evidence of consolidative pneumonia in the right lung. EKG unremarkable for any acute ST segment change. Patient is treated aggressively with IV fluids and antibiotics, cefepime and vancomycin. Suspect due to pneumonia the patient has had an NSTEMI. Case is discussed with Dr. Yanci patel for cardiology as well with Dr. Kumari for admission. Patient admitted to the ICU. Dr. Kumari did see the patient here in the emergency department. ECG Initial ECG Impression Date: July 13, 2022 Initial ECG Impression Time: 11:51 Initial ECG Rate: 79 Initial ECG Rhythm: A Fib/Flutter Initial ECG Impression: Atrial Fibrillation Diagnostic Imaging Diagonstic Imaging: Xray Plain Films/CT/US/NM/MRI: chest Comments [facility]. [place], [place] NAME: NANCY TRUJILLO [facility] REC#: [id number] PT STATUS: ADM IN : 1955 PHYSICIAN: LAN RAMOS MD ADMIT DATE: 07/13/22/ICU Signed Date of Exam:07/13/22 CHEST 1 VIEW, AP/PA ONLY INDICATION: Chest pain. COMPARISON: 02/21/2022. DISCUSSION: Single portable upright view of the chest was obtained. Extensive consolidation noted throughout the right lung particularly within the right lung base, likely pneumonia. Normal heart size. The lungs remain hyperinflated. No pleural fluid or pneumothorax. No osseous abnormality. IMPRESSION: 1. Severe consolidation throughout the right lung, likely pneumonia. Dictated by: Dictated on workstation # [id number] Dict: 07/13/22 1215 Trans: 07/13/22 1547 [facility] [place] [id number] Interpreted by: SAGE LEONARDO MD Electronically signed by: SAGE LEONARDO MD 07/13/22 1547 Critical Care Note Critical Care Start Time: 11:27 Departure Communication (Admissions) Time/Spoke to Admitting Phy: 12:[address] Kumari (hospitalist) who accepts patient for admission Impression Primary Impression: Acute respiratory failure Qualified Codes: J96.00 - Acute respiratory failure, unspecified whether with hypoxia or hypercapnia Disposition: ADMITTED INPATIENT Condition: Critical Admissions Decision to Admit Reason: Admit from ER (General) Decision to Admit/Date: July 13, 2022 Time/Decision to Admit Time: 11:38 Departure-Patient Inst. Referrals: SAGE AYALA MD (PCP/Family) Primary Care Physician Scripts Nicotine (Nicotine Patch) 21 Mg/24 Hour Patch.td24 21 MG TD DAILY, #30 PATCH 4 Refills Prov: STAR KUMARI DO 07/18/22 Lorazepam (Ativan) 0.5 Mg Tablet 0.5 MG PO Q12H PRN for ANXIETY, #10 TAB Prov: STAR KUMARI DO 07/18/22 Hydroxyzine HCl (Hydroxyzine HCl) 10 Mg Tablet 10 MG PO Q6H PRN for ANXIETY, #20 TAB Prov: STAR KUMARI DO 07/18/22 Cefdinir (Cefdinir) 300 Mg Capsule 300 MG PO BID, #10 CAP Prov: STAR KUMARI DO 07/18/22 Multivitamin/Iron/Folic Acid (Tab-A-Isabel Multivit with Iron) 18 Mg Iron-400 Mcg Tablet 1 EA PO DAILY@0700, #30 TAB Prov: STAR KUMARI DO 07/18/22 Folic Acid (Folic Acid) 1 Mg Tablet 1 MG PO DAILY, #30 TAB Prov: STAR KUMARI DO 07/18/22 Magnesium Oxide (Magnesium Oxide) 400 Mg (241.3 Mg Magnesium) Tablet 400 MG PO BID, #60 TAB Prov: STAR KUMARI DO 07/18/22 Oxycodone Hcl (OXYIR TABLET) 5 Mg Tab 5 MG PO Q4HR PRN for PAIN-SEE DOSE INSTRUCTIONS, #10 TAB Prov: STAR KUMARI DO 07/18/22 Aspirin (Aspirin EC) 81 Mg Tablet.dr 81 MG PO DAILY, #30 TAB Prov: STAR KUMARI DO 07/18/22 Metoprolol Tartrate (Metoprolol Tartrate) 25 Mg Tablet 25 MG PO BID, #60 TAB Prov: STAR KUMARI DO 07/18/22 Ipratropium/Albuterol Sulfate (Iprat-Albut 0.5-3(2.5) mg/3 ml) 0.5 Mg-3 Mg (2.5 Mg Base)/3 Ml Ampul.neb 3 ML INH RTQ4HR, #90 INHALER Prov: STAR KUMARI DO 07/18/22 LAN RAMOS MD July 13, 2022 11:38
[2022-07-13 11:46] LABS: BASOPHILS % (AUTO) 0 % (0-10); EOSINOPHILS % (AUTO) 0 % (0-10); MEAN CORPUSCULAR VOLUME 99 fL (80-99); MEAN PLATELET VOLUME 10.2 fL (9.0-12.2); NEUTROPHILS % (AUTO) 89 % (42-75)
[2022-07-13 11:48] LABS: HEMATOCRIT 41 % (40-54); HEMOGLOBIN 14.5 g/dL (13.3-17.7); LYMPHOCYTES # (AUTO) 0.8 10^3/uL (1.0-4.0); LYMPHOCYTES % (AUTO) 5 % (12-44); MEAN CORPUSCULAR HEMOGLOBIN 35 pg (25-34); MEAN CORPUSCULAR HGB CONC 35 g/dL (32-36); MONOCYTES # (AUTO) 0.7 10^3/uL (0.0-1.0); MONOCYTES % (AUTO) 4 % (0-12); NEUTROPHILS # (AUTO) 13.6 10^3/uL (1.8-7.8); PLATELET COUNT 145 10^3/uL (130-400); WHITE BLOOD COUNT 15.3 10^3/uL (4.3-11.0)
[2022-07-13 11:49] LABS: ALBUMIN 3.6 GM/DL (3.2-4.5)
[2022-07-13 11:50] LABS: INR 1.7 (0.8-1.4); POTASSIUM 4.8 MMOL/L (3.6-5.0); PROTHROMBIN TIME PATIENT 20.1 SEC (12.2-14.7)
[2022-07-13 11:52] VITALS: BP 148/85
[2022-07-13 11:52] LABS: TOTAL PROTEIN 6.4 GM/DL (6.4-8.2)
[2022-07-13 11:54] LABS: BILIRUBIN,TOTAL 1.1 MG/DL (0.1-1.0)
[2022-07-13 11:56] LABS: CREATININE SERUM 1.02 MG/DL (0.60-1.30)
[2022-07-13 11:58] LABS: MAGNESIUM 1.4 MG/DL (1.6-2.4)
[2022-07-13 12:12] LABS: BAND NEUTROPHILS 4 %; BASOPHILS % (MANUAL) 0 %; EOSINOPHILS % (MANUAL) 0 %; LYMPHOCYTES % (MANUAL) 4 %; MONOCYTES % (MANUAL) 1 %; NEUTROPHILS % (MANUAL) 91 %; RBC MORPH NORMAL
--- NOTE | 2022-07-13 12:20 | Diagnostic Imaging Report ---
INDICATION: Chest pain. COMPARISON: 02/21/2022. DISCUSSION: Single portable upright view of the chest was obtained. Extensive consolidation noted throughout the right lung particularly within the right lung base, likely pneumonia. Normal heart size. The lungs remain hyperinflated. No pleural fluid or pneumothorax. No osseous abnormality. IMPRESSION: 1. Severe consolidation throughout the right lung, likely pneumonia. Dictated by: Dictated on workstation # [id number]
[2022-07-13 12:26] LABS: ABG BASE EXCESS 1.3 MMOL/L (-2.5-2.5); ABG OXYGEN SATURATION 99 % (94-100); ABG PCO2 51 MMHG (35-45); ABG PO2 125 MMHG (79-93); ABG TCO2 27.9 MMOL/L (21.0-31.0)
[2022-07-13] MEDS ORDERED: VANCOMYCIN INJECTION 1,000 MG in NS (IVPB) 250 ML IV ONE (12:30)
[2022-07-13] MEDS ORDERED: MEROPENEM 1,000 MG in NS (IVPB) 100 ML IV ONE (12:30)
[2022-07-13 12:31] LABS: ALLENS TEST YES-POS; INSPIRED O2 80%; PATIENT TEMP 37.5; VENTILATOR NO
[2022-07-13 12:32] LABS: ABG PH 7.34 (7.37-7.43)
--- NOTE | 2022-07-13 12:32 | History & Physical ---
History of Present Illness HPI/Chief Complaint Chief complaint: Acute on chronic hypoxic hypercapneic respiratory failure with sepsis HPI: This is a 66-year-old male who was recently here for pneumonia and has a history of aspergillosis of the lung who continued to smoke although remains on oxygen at home who presented to the ER with shortness of breath found to have bacterial pneumonia and sepsis with acute on chronic hypoxic hypercapnic respiratory failure requiring BiPAP. Details are limited due to the BiPAP. His partner is at the bedside. IV antibiotics of meropenem and vancomycin required due to hospital-acquired pneumonia diagnosis. High risk for resistant organisms. Cardiology will be consulted due to slightly elevated troponin and patient will be monitored closely. Previous admit DC summary: (1) Permanent atrial fibrillation (2) Acute on chronic heart failure with preserved ejection fraction (HFpEF) (3) Primary hypertension (4) Coronary artery disease without angina pectoris (5) Pulmonary hypertension (6) Mixed hyperlipidemia (7) Acute on chronic respiratory failure with hypoxemia (8) Chronic obstructive pulmonary disease (9) Cigarette smoker Hospital Course Date of Admission: Feb 18, 2022 at 18:52 Admission Diagnosis : Family Physician/Provider: Flavio Jackson MD Date of Discharge: 02/25/22 Discharge Diagnosis: [ ] Hospital Course: CAD and multiple cardiac arrests admitted on 02/18 from the ER after same day visit for worsening SOB of several days duration (despite using BiPAP he had at home from a previous COPD exacerbation). He had been previously hospitalized in December for pneumonia, and stated he felt he never returned to his normal state since that stay. At the time of admission, he was found to have acute respi ratory failure likely related to COPD exacerbation and acute upper respiratory tract infection (per CXR showing COPD and opacities in the right upper and lower lung improved relative to imaging done in December), respiratory acidosis, and atrial fibrillation. He was placed in ICU and started on BiPAP (/, 30%) IV solumedrol, cetriaxone and duonebs. Cardiology was consulted on 02/19 and initiated Cardizem drip and rivoraxaban. His acidosis resolved on 02/19 and he no longer showed signs of respiratory distress by 02/21; his breathing continued to improve and he denied SOB with rest thereafter. The patient was tachycardic thoughout his stay; there was some improvement on 02/25 after many adjustments in rate control (amiodarone once on 02/19, and escalations in Cardizem and metoprolol to 480 mg and 100 mg bid by 02/25, respectively). He was otherwise improving and requesting to go home and was discharged on 02/25 with cardiology medications and a next-day cardiology appointment. Source: patient Exam Limitations: clinical condition (biPAP) Date Seen 07/13/22 Time Seen by a Provider: 13:00 Attending Physician Flavio Jackson MD PCP Admitting Physician: Attending Physician: Referring Physician Date of Admission Home Medications & Allergies Home Medications Reviewed patient Home Medication Reconciliation performed by pharmacy medication reconciliations oil bay technician and/or nursing. Patients Allergies have been reviewed. Allergies Allergies Coded Allergies No Known Drug Allergies (Unverified03/17/12) Past Avejfqe-Lymnnk-Wlntuc Hx Past Med/Social Hx: Reviewed Nursing Past Med/Soc Hx, Reviewed and Corrections made Patient Social History Marrital Status: cohabiting Employed/Student: unemployed Smoking Status: Current Everyday Smoker Former Smoker, Quit: Nov 17, 2017 Type Used: Cigarettes 2nd Hand Smoke Exposure: Yes Recent Hopitalizations: No Recent Infectious Disease Expo: No Immunizations Up To Date Tetanus Booster (TDap): Unknown Pediatric: Yes Date of Pneumonia Vaccine: Oct 20, 2011 Date of Influenza Vaccine: Nov 15, 2020 Seasonal Allergies Seasonal Allergies: No Past Medical History Surgeries: Lobectomy Respiratory: COPD, Pneumonia Cardiac: Atrial Fibrillation, Coronary Artery Disease, High Cholesterol, Hypertension Reproductive: No Musculoskeletal: Arthritis History of Blood Disorders: No Family History Asthma 19 MOTHER Cancer of extrahepatic bile ducts 19 FATHER Diabetes mellitus G8 SISTER FH: COPD (chronic obstructive pulmonary disease) 19 MOTHER Heart Disease, Cancer, Lung Disease Review of Systems Constitutional: see HPI EENTM: no symptoms reported Respiratory: cough, dyspnea on exertion, short of breath Gastrointestinal: no symptoms reported Genitourinary: no symptoms reported Musculoskeletal: no symptoms reported Skin: no symptoms reported Psychiatric/Neurological: No Symptoms Reported All Other Systems Reviewed Negative Unless Noted: Yes Physical Exam Physical Exam Vital Signs Vital Signs - First Documented 07/13/22 13:10 FiO2 50 Capillary Refill : Less Than 3 Seconds Height, Weight, BMI Height: 6'4.00" Weight: 154lbs. 2.0oz. 69.505609ok; 21.00 BMI Method:Stated General Appearance: No Apparent Distress, WD/WN, Chronically ill Eyes: Bilateral Eye Normal Inspection, Bilateral Eye PERRL, Bilateral Eye EOMI HEENT: PERRL/EOMI, Normal ENT Inspection, Pharynx Normal Neck: Full Range of Motion, Normal Inspection, Non Tender, Supple, Carotid Bruit Respiratory: Chest Non Tender, No Respiratory Distress, Accessory Muscle Use, Crackles, Decreased Breath Sounds Cardiovascular: No Edema, No Gallop, No JVD, No Murmur, Normal Peripheral Pulses, Irregularly Irregular Gastrointestinal: Normal Bowel Sounds, No Organomegaly, No Pulsatile Mass, Non Tender, Soft Back: Normal Inspection, No CVA Tenderness, No Vertebral Tenderness Extremity: Normal Capillary Refill, Normal Inspection, Normal Range of Motion, Non Tender, No Calf Tenderness, No Pedal Edema Neurologic/Psychiatric: Alert, Oriented x3, No Motor/Sensory Deficits, Normal Mood/Affect Skin: Normal Color, Warm/Dry Lymphatic: No Adenopathy Results Results/Procedures Labs Laboratory Tests 07/13/22 11:42 Patient resulted labs reviewed. Assessment/Plan Admission Diagnosis Assessment: Acute on chronic respiratory failure with hypoxemia and hypercapnia Sepsis PNA HAP type h/o Aspergillus infection of the lung Permanent atrial fibrillation Acute on chronic heart failure with preserved ejection fraction (HFpEF) Primary hypertension Coronary artery disease without angina pectoris Pulmonary hypertension Mixed hyperlipidemia Chronic obstructive pulmonary disease with exacerbation Cigarette smoker Plan: ICU BiPAP IV abx IV steroids Monitor closely OAC Admission Status: Inpatient Order (span 2 midnights) Reason for Inpatient Admission: resp failure STAR KUMARI DO July 13, 2022 12:32
[2022-07-13] MEDS ORDERED: diphenhydrAMINE 25 MG TAB (BENADRYL) PO PRN (13:15)
[2022-07-13] MEDS ORDERED: MELATONIN 3 MG TABLET PO PRN (13:15)
[2022-07-13] MEDS ORDERED: BISACODYL 10 MG SUPP (DULCOLAX) PR PRN (13:15)
[2022-07-13] MEDS ORDERED: polyethylene glycoL POWDER 17 GM (MIRALAX) PACK PO PRN (13:15)
[2022-07-13] MEDS ORDERED: LACTULOSE SYRUP 10GM/15ML (ENULOSE) 30ML UDC PO PRN (13:15)
[2022-07-13] MEDS ORDERED: ONDANSETRON 4 MG/2 ML (SDV) Z0FRAN IV PRN (13:15)
[2022-07-13] MEDS ORDERED: NS IV 500 ML 500 ML IV PRN (13:15)
[2022-07-13] MEDS ORDERED: ANTACID SUSP 30 ML UDC (MYLANTA) PO PRN (13:15)
[2022-07-13] MEDS ORDERED: PHARMACY TO DOSE IV SCH (13:15)
[2022-07-13] MEDS ORDERED: HYDROmorphone 2 MG/ML VIAL (DILAUDID) IV PRN (13:15)
[2022-07-13] MEDS ORDERED: diphenhydrAMINE 50 MG/ML INJ (BENADRYL) IVP PRN (13:15)
[2022-07-13] MEDS ORDERED: DexMEDEtomidine 250 ML DRIP 250 ML IV SCH (13:15)
[2022-07-13] MEDS ORDERED: LORazepam INJ 2 MG/ML (ATIVAN) VIAL IVP PRN (13:15)
[2022-07-13] MEDS ORDERED: ONDANSETRON 4 MG (ZOFRAN) ORAL DISSOLVE TAB PO PRN (13:15)
[2022-07-13] MEDS ORDERED: CALCIUM CARBONATE 500 MG (TUMS) TAB.CHEW PO PRN (13:15)
[2022-07-13] MEDS ORDERED: MILK OF MAGNESIA 400 MG/5 ML 30 ML UDC PO PRN (13:15)
[2022-07-13] MEDS: NS IV 1000 ML 1,000 ML IV SCH (13:25)
[2022-07-13] MEDS ORDERED: PANT40TA2 PO (13:37)
--- NOTE | 2022-07-13 13:41 | Tele-ICU Consult ---
History of Present Illness History of Present Illness Date Seen by Provider: July 13, 2022 Time Seen by Provider: 13:33 History of Present Illness eICU admit note 66 yo M admitted to ICU with cc of SOB, COuld not speak full sentances, active smoker renal and liver function ok, LA 1.84, WBC 15.3, Hb 14.5 On home oxygen @ 4 lpm, Heart rate has been ok PMH, COPD, CHF, CAD s/p stent, HTN, HLD, a fib on Xarelto, had ablation, On Cardizem, digoxin and metoprolol Hx of recent admission for PNA, hx of admission for aspergillosis, diagnosed at [facility] bronch CXR shows patchy infiltrate on right side infiltrate. Started on IV Vanoco and IV meropenem, cultures pending Allergies and Home Medications Allergies Coded Allergies: No Known Drug Allergies (Unverified , 03/17/12) Home Medications Albuterol Sulfate 18 Gm Hfa.aer.ad, 2 PUFF INH Q6H PRN for SHORTNESS OF BREATH, (Reported) Atorvastatin Calcium 10 Mg Tablet, 10 MG PO DAILY, (Reported) LAST FILLED 01-15-2022 #90/90 DAY SUPPLY Budesonide/Glycopyr/Formoterol 10.7 Gm Hfa.aer.ad, 2 PUFF INH BID, (Reported) Digoxin 125 Mcg (0.125 Mg) Tablet, 125 MCG PO DAILY, (Reported) Diltiazem HCl 240 Mg Tab.er.24h, 240 MG PO BID, (Reported) Metoprolol Succinate 100 Mg Tab.er.24h, 100 MG PO BID Prescribed by: STAR KUMARI on 02/25/22 1156 Pantoprazole Sodium 40 Mg Tablet.dr, 40 MG PO DAILY, (Reported) Potassium Chloride 20 Meq Tab.er.prt, 20 MEQ PO DAILY, (Reported) Rivaroxaban 20 Mg Tablet, 20 MG PO DAILY, (Reported) Roflumilast 500 Mcg Tablet, 500 MCG PO DAILY, (Reported) [Balance Of Nature] , 3 EA PO DAILY, (Reported) [Liquid Iv Otc] , 1 PACKET PO DAILY, (Reported) Past Medical/Social/Family Hx Patient Social History Tobacco Use?: Yes Tobacco type used: Cigarettes Smoking Status: Current Everyday Smoker Smokeless Tobacco Frequency: Never a User Use of E-Cig and/or Vaping dev: No E-Cig and/or Vaping Freq: Never a User Substance use?: No Alcohol Use?: Yes Alcohol type: Beer Pt stated abuse/neglect: No Immunizations Up To Date First/Initial COVID19 Vaccinat: 2020 Second COVID19 Vaccination Raphael: 2020 Tetanus Booster (TDap): Unknown Hepatitis A: No Hepatitis B: No TB Skin Test: None Date of Pneumonia Vaccine: Oct 20, 2011 Current Status Advance Directives: No Communicates: Verbally Primary Language: Cambodian Is interpretation needed?: No Sensory deficits: Vision impairment, Hearing impairment Implanted or Applied Medical D: Stents Past Medical History PMHx: A fib 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, prolonged ventilator, rescucitated x 2 course Hypertension Hyperlipidemia SurgHx: Aortic aneurysm stenting A fib ablation Coronary artery stenting Pleurodesis x 2 Left elbow surgery Right knee arthroscopy Review of Systems Constitutional: see HPI EENTM: see HPI Respiratory: see HPI Cardiovascular: see HPI Gastrointestinal: see HPI Genitourinary: see HPI Musculoskeletal: see HPI Skin: see HPI Psychiatric/Neurological: See HPI Focused Exam Lactate Level 07/13/22 12:02: Lactic Acid Level 1.84 Height, Weight, BMI Height: 6'4.00" Weight: 154lbs. 2.0oz. 69.704157sl; 21.00 BMI Method:Stated Lactic Acid Level Laboratory Tests Test 07/13/22 12:02 Lactic Acid Level 1.84 MMOL/L (0.50-2.00) Exam Exam Patient acknowledged, consented, and participated in this virtual visit which was conducted using real time audio/video Vital Signs Date Time Temp Pulse Resp B/P (MAP) Pulse Ox O2 Delivery O2 Flow Rate FiO2 07/13/22 13:11 36.7 07/13/22 11:52 68 36 96 80.00 07/13/22 11:27 93 OxyMask 15.00 07/13/22 11:27 37.5 81 20 146/88 (107) 93 OxyMask 15.00 07/13/22 11:27 OxyMask 15.00 Height & Weight Height: 6'4.00" Weight: 154lbs. 2.0oz. 69.256796yp; 21.00 BMI Method:Stated General Appearance: Moderate Distress Respiratory: Accessory Muscle Use, Crackles, Decreased Breath Sounds, Rhonci Cardiovascular: Irregularly Irregular Capillary Refill: Less Than 3 Seconds Gastrointestinal: normal bowel sounds, non tender, soft Neurologic/Psychiatric: Alert, Oriented x3 Results Lab Laboratory Tests 07/13/22 11:42 Assessment/Plan Assessment/Plan COPD, PNA, will continue on BiPAP, watch for need for intubation spoke to brickmason: Critically Ill Patient Time spent with patient (mins): 30 VIGNESH SPEAR MD July 13, 2022 13:41
[2022-07-13] MEDS ORDERED: VANCOMYCIN 1500MG/300ML PREMIX IV NR (14:00)
[2022-07-13 14:18] VITALS: BP 148/85
[2022-07-13] MEDS ORDERED: RT-ALBUTEROL/IPRATROPIUM 3 ML (DUONEB) VIAL INH PRN (14:30)
[2022-07-13 14:58] VITALS: BP 113/58
--- NOTE | 2022-07-13 15:49 | Consultation-Cardiology ---
HPI-Cardiology Cardiology Consultation: Date of Consultation 07/13/22 Date of Admission Attending Physician [facility] Admitting Physician Admitting Physician: Jaimee Kumari DO Attending Physician: Jaimee Kumari DO Consulting Physician Winston MOODY MD HPI: Time Seen by a Provider: 15:43 Chief Complaint: Shortness of breath. This is a 66-year-old gentleman with complex cardiac and medical history. He has history of persistent atrial fibrillation. Previous atrial fibrillation ablation. On chronic oral anticoagulation. History of CAD, PCI. Active smoker with history of COPD. Obstructive sleep apnea on CPAP therapy at night. Presented with hypoxia and shortness of breath. Active smoker. Pertinent family history is unremarkable. Review of Systems-Cardiology Review of Systems Constitutional: no symptoms reported Eyes: no symptoms reported Ears/Nose/Throat: no symptoms reported Respiratory: orthopnea, shortness of breath, SOB with excertion, SOB at rest Cardiovascular: irregular heart rate Gastrointestinal: no symptoms reported Genitourinary: no symptoms reported Musculoskeletal: no symptoms reported Skin: no symptoms reported Psychiatric/Neurological: no symptoms reported Hematologic: no symptoms reported URV-Emszrs-Xrecjh Hx Patient Social History Smoking Status: Current Everyday Smoker 2nd Hand Smoke Exposure: Yes Have you traveled recently?: No Alcohol Use?: No Pt feels they are or have been: No Tobacco type used: Cigarettes Immunizations Up To Date Tetanus Booster (TDap): Unknown Date of Pneumonia Vaccine: Oct 20, 2011 Date of Influenza Vaccine: Nov 15, 2020 Past Medical History PMH As described under Assessment. Family Medical History Family History: Asthma 19 MOTHER Cancer of extrahepatic bile ducts 19 FATHER Diabetes mellitus G8 SISTER FH: COPD (chronic obstructive pulmonary disease) 19 MOTHER Allergies and Home Medications Allergies Coded Allergies: No Known Drug Allergies (Unverified , 03/17/12) Patient Home Medication List Home Medication List Reviewed: Yes Albuterol Sulfate (Ventolin Hfa) 18 Gm Hfa.aer.ad, 2 PUFF INH Q6H PRN for SHORTNESS OF BREATH, (Reported) Entered as Reported by: IVELISSE BALLARD on 12/09/20 1158 Last Action: Reviewed Atorvastatin Calcium (Atorvastatin Calcium) 10 Mg Tablet, 10 MG PO DAILY, (Reported) Entered as Reported by: NIRAV GAFFNEY on 11/01/17 1057 Last Action: Reviewed Budesonide/Glycopyr/Formoterol (Breztri Aerosphere Inhaler) 10.7 Gm Hfa.aer.ad, 2 PUFF INH BID, (Reported) Entered as Reported by: IVELISSE BALLARD on 12/09/201157 Last Action: Reviewed Cetirizine HCl (Cetirizine HCl) 10 Mg Tablet, 10 MG PO DAILY, (Reported) Entered as Reported by: IVELISSE BALLARD on 12/09/201157 Last Action: Reviewed Digoxin (Digox) 125 Mcg (0.125 Mg) Tablet, 0.125 MG PO DAILY Prescribed by: JAIMEE KUMARI on 02/25/221155 Last Action: Reviewed Diltiazem HCl (Diltiazem 24Hr ER) 240 Mg Cap.er.24h, 480 MG PO DAILY Prescribed by: JAIMEE KUMARI on 02/25/221155 Last Action: Reviewed Famotidine (Famotidine) 20 Mg Tablet, 20 MG PO BID Prescribed by: JAIMEE KUMARI on 02/25/221155 Last Action: Reviewed Metoprolol Succinate (Metoprolol Succinate) 100 Mg Tab.er.24h, 100 MG PO BID Prescribed by: JAIMEE KUMARI on 02/25/221155 Last Action: Reviewed Pantoprazole Sodium (Protonix) 40 Mg Tablet.dr, 40 MG PO DAILY, (Reported) Entered as Reported by: SREEDHAR RAGLAND on 07/13/221336 Last Action: New Order Potassium Chloride (Potassium Chloride) 20 Meq Tab.er.prt, 20 MEQ PO DAILY, (Reported) Entered as Reported by: IVELISSE BALLARD on 12/09/201157 Last Action: Reviewed Rivaroxaban (Xarelto) 20 Mg Tablet, 20 MG PO DAILY, (Reported) Entered as Reported by: IVELISSE BALLARD on 12/09/201157 Last Action: Reviewed Roflumilast (Roflumilast) 500 Mcg Tablet, 500 MCG PO DAILY, (Reported) Entered as Reported by: IVELISSE BALLARD on 02/19/221137 [Balance Of Nature] , 2 EA PO TID, (Reported) Entered as Reported by: IVELISSE BALLARD on 02/19/221137 Last Action: Reviewed [Liquid Iv Otc] , 1 PACKET PO DAILY, (Reported) Entered as Reported by: IVELISSE BALLARD on 1/5/23 1138 Last Action: Reviewed Discontinued Medications Prednisone (Prednisone) 10 Mg Tab.ds.pk, 10 MG PO DAILY Discontinued Reason: No Longer Taking Prescribed by: JAIMEE KUMARI on 02/25/22 1156 Last Action: Discontinued Exam Vital Signs Vital Signs Date Time Temp Pulse Resp B/P (MAP) Pulse Ox O2 Delivery O2 Flow Rate FiO2 07/13/22 14:58 72 28 98 50.00 07/13/22 14:18 36.7 07/13/22 13:10 NIV Bilevel 50 07/13/22 13:00 133/67 Physical Exam Mild respiratory distress. Decrease breath sounds bilaterally. Irregular rhythm with controlled ventricular rate. Labs Laboratory Tests Test 07/13/22 11:42 07/13/22 12:02 07/13/22 12:23 07/13/22 15:33 Range/Units White Blood Count 15.3 H 4.3-11.0 10^3/uL Red Blood Count 4.19 L 4.30-5.52 10^6/uL Hemoglobin 14.5 13.3-17.7 g/dL Hematocrit 41 40-54 % Mean Corpuscular Volume 99 80-99 fL Mean Corpuscular Hemoglobin 35 H 25-34 pg Mean Corpuscular Hemoglobin Concent 35 32-36 g/dL Red Cell Distribution Width 13.0 10.0-14.5 % Platelet Count 145 130-400 10^3/uL Mean Platelet Volume 10.2 9.0-12.2 fL Immature Granulocyte % (Auto) 1 % Neutrophils (%) (Auto) 89 H 42-75 % Lymphocytes (%) (Auto) 5 L 12-44 % Monocytes (%) (Auto) 4 0-12 % Eosinophils (%) (Auto) 0 0-10 % Basophils (%) (Auto) 0 0-10 % Neutrophils # (Auto) 13.6 H 1.8-7.8 10^3/uL Lymphocytes # (Auto) 0.8 L 1.0-4.0 10^3/uL Monocytes # (Auto) 0.7 0.0-1.0 10^3/uL Eosinophils # (Auto) 0.0 0.0-0.3 10^3/uL Basophils # (Auto) 0.0 0.0-0.1 10^3/uL Immature Granulocyte # (Auto) 0.1 0.0-0.1 10^3/uL Neutrophils % (Manual) 91 % Lymphocytes % (Manual) 4 % Monocytes % (Manual) 1 % Eosinophils % (Manual) 0 % Basophils % (Manual) 0 % Band Neutrophils 4 % Percent Immature Platelet Fraction 7.4 0.0-7.6 % Blood Morphology Comment NORMAL Prothrombin Time 20.1 H 12.2-14.7 SEC INR Comment 1.7 H 0.8-1.4 Activated Partial Thromboplast Time 31 24-35 SEC Sodium Level 129 L 135-145 MMOL/L Potassium Level 4.8 3.6-5.0 MMOL/L Chloride Level 95 L 98-107 MMOL/L Carbon Dioxide Level 22 21-32 MMOL/L Anion Gap 12 5-14 MMOL/L Blood Urea Nitrogen 12 7-18 MG/DL Creatinine 1.02 0.60-1.30 MG/DL Estimat Glomerular Filtration Rate 81 BUN/Creatinine Ratio 12 Glucose Level 96 70-105 MG/DL Calcium Level 9.0 8.5-10.1 MG/DL Corrected Calcium 9.3 8.5-10.1 MG/DL Magnesium Level 1.4 L 1.6-2.4 MG/DL Total Bilirubin 1.1 H 0.1-1.0 MG/DL Aspartate Amino Transf (AST/SGOT) 24 5-34 U/L Alanine Aminotransferase (ALT/SGPT) 24 0-55 U/L Alkaline Phosphatase 84 40-136 U/L Troponin I 0.039 H <0.028 NG/ML B-Type Natriuretic Peptide 153.5 H <100.0 PG/ML Total Protein 6.4 6.4-8.2 GM/DL Albumin 3.6 3.2-4.5 GM/DL Lactic Acid Level 1.84 0.50-2.00 MMOL/L Blood Gas Puncture Site R Rad Blood Gas Patient Temperature 37.5 Arterial Blood pH 7.34 *L 7.37-7.43 Arterial Blood Partial Pressure CO2 51 H 35-45 MMHG Arterial Blood Partial Pressure O2 125 H 79-93 MMHG Arterial Blood HCO3 26 23-27 MMOL/L Arterial Blood Total CO2 27.9 21.0-31.0 MMOL/L Arterial Blood Oxygen Saturation 99 94-100 % Arterial Blood Base Excess 1.3 -2.5-2.5 MMOL/L Harris Test YES-POS Blood Gas Ventilator Setting NO Blood Gas Inspired Oxygen 80% Glucometer 69 L 70-110 MG/DL ECG Impression ECG Initial ECG Rhythm: A Fib/Flutter A/P-Cardiology Assessment/Admission Diagnosis Acute respiratory failure Persistent atrial fibrillation with controlled ventricular rate. CAD/PCI COPD Hypertension Active smoker Plan Status post acute respiratory failure, acute exacerbation of COPD. On BiPAP therapy. Persistent atrial fibrillation with controlled ventricular rate. Continue oral anticoagulation History of ablation in April [address] Mccabe. Had multiple cardiac arrests, complex hospitalization in October 2017. Coronary artery disease, history of stenting using 3.020 mm Promus stent to the right coronary artery done in March 2012. Stress test done on November 01, 2019 showing Baseline atrial fibrillation, decreased uptake involving the mid to apical inferior wall with no reversibility, ejection fraction 40 percent probably due to tachycardia. COPD, using oxygen at night, had a complex hospitalization with Legionella pneumonia and CMV, respiratory failure, multiple cardiac arrest in October 2017. loculated pneumonia underwent right lung decortication on January 28, 2018 resulted in hydropneumothorax and marked emphysema and had prolonged chest tube placement. History of congestive heart failure, chronic left ventricular systolic dysfunction. 2D echo was done in November 2021 with ejection fraction 55 to 60%, left atrial dilatation, PA pressure 45 to 50 mmHg. Prolonged hospitalization at between October 2017 and February 2018, had aspergillosis and was intubated. Abdominal aortic aneurysm, had a stent placed by Dr. Hogue done in June 2021. Hypertension, continue to monitor. Hyperlipidemia, continue to monitor lipids Tobaccoism, Winston MOODY MD July 13, 2022 15:49
[2022-07-13] MEDS: inSUlin ASPART (NovoLOG) 1 UNIT/0.01 ML (CHARGE PER UNIT) SC SCH ×2 (17:10→20:05)
[2022-07-13] MEDS: MEROPENEM 500 MG in NS (IVPB) 100 ML IV SCH ×2 (17:23→23:16)
[2022-07-13] MEDS: RIVAROXABAN 20 MG TABLET (XARELTO) PO SCH (17:23)
[2022-07-13 18:19] VITALS: BP 130/64
[2022-07-13] MEDS: RT-ALBUTEROL/IPRATROPIUM 3 ML (DUONEB) VIAL INH SCH ×2 (18:19→22:39)
[2022-07-13] MEDS: DOCUSATE SODIUM 100 MG (COLACE) CAP PO SCH (20:05)
[2022-07-13] MEDS: SENNOSIDES 8.6 MG (SENOKOT) TAB PO SCH (20:05)
[2022-07-14] MEDS ORDERED: VANCOMYCIN 1 GM/NS 250 ML IVPB IV SCH ×2 (02:00)
[2022-07-14] MEDS: RT-ALBUTEROL/IPRATROPIUM 3 ML (DUONEB) VIAL INH SCH ×6 (02:31→22:12)
[2022-07-14] MEDS: NS IV 1000 ML 1,000 ML IV SCH ×2 (02:36→05:43)
[2022-07-14 04:29] LABS: ABG BASE EXCESS 1.6 MMOL/L (-2.5-2.5); ABG OXYGEN SATURATION 100 % (94-100); ABG PCO2 38 MMHG (35-45); ABG PH 7.44 (7.37-7.43); ABG PO2 77 MMHG (79-93); ABG TCO2 26.8 MMOL/L (21.0-31.0); ALLENS TEST YES-POS; INSPIRED O2 30%; PATIENT TEMP 36.1; VENTILATOR NO
[2022-07-14] MEDS: MEROPENEM 500 MG in NS (IVPB) 100 ML IV SCH ×3 (05:42→18:45)
[2022-07-14 05:46] LABS: BASOPHILS % (AUTO) 0 % (0-10); LYMPHOCYTES % (AUTO) 5 % (12-44); MEAN CORPUSCULAR VOLUME 103 fL (80-99)
[2022-07-14 05:48] LABS: EOSINOPHILS % (AUTO) 0 % (0-10); HEMATOCRIT 37 % (40-54); HEMOGLOBIN 12.4 g/dL (13.3-17.7); LYMPHOCYTES # (AUTO) 0.9 10^3/uL (1.0-4.0); MEAN CORPUSCULAR HEMOGLOBIN 35 pg (25-34); MEAN CORPUSCULAR HGB CONC 34 g/dL (32-36); MEAN PLATELET VOLUME 10.3 fL (9.0-12.2); MONOCYTES # (AUTO) 0.8 10^3/uL (0.0-1.0); MONOCYTES % (AUTO) 5 % (0-12); NEUTROPHILS # (AUTO) 15.1 10^3/uL (1.8-7.8); NEUTROPHILS % (AUTO) 90 % (42-75); PLATELET COUNT 111 10^3/uL (130-400); WHITE BLOOD COUNT 16.9 10^3/uL (4.3-11.0)
[2022-07-14] MEDS ORDERED: POTASSIUM CL 10MEQ/50ML IVPB 50 ML IV SCH (06:00)
[2022-07-14] MEDS ORDERED: MAGNESIUM 1 GM/100 ML IVPB 100 ML IV SCH (06:00)
[2022-07-14] MEDS ORDERED: KCL 20 MEQ TAB (K-DUR) PO SCH (06:00)
[2022-07-14 06:15] LABS: ALBUMIN 3.2 GM/DL (3.2-4.5); BILIRUBIN,TOTAL 0.8 MG/DL (0.1-1.0); CREATININE SERUM 0.93 MG/DL (0.60-1.30); MAGNESIUM 1.7 MG/DL (1.6-2.4); PHOSPHORUS 2.4 MG/DL (2.3-4.7); POTASSIUM 3.9 MMOL/L (3.6-5.0); TOTAL PROTEIN 5.8 GM/DL (6.4-8.2)
--- NOTE | 2022-07-14 06:15 | Progress Note - Hospitalist ---
Subjective HPI/CC On Admission Date Seen by Provider: July 14, 2022 Time Seen by Provider: 09:00 Chief complaint: Acute on chronic hypoxic hypercapneic respiratory failure with sepsis HPI: This is a 66-year-old male who was recently here for pneumonia and has a history of aspergillosis of the lung who continued to smoke although remains on oxygen at home who presented to the ER with shortness of breath found to have bacterial pneumonia and sepsis with acute on chronic hypoxic hypercapnic respiratory failure requiring BiPAP. Details are limited due to the BiPAP. His partner is at the bedside. IV antibiotics of meropenem and vancomycin required due to hospital-acquired pneumonia diagnosis. High risk for resistant organisms. Cardiology will be consulted due to slightly elevated troponin and patient will be monitored closely. Previous admit DC summary: (1) Permanent atrial fibrillation (2) Acute on chronic heart failure with preserved ejection fraction (HFpEF) (3) Primary hypertension (4) Coronary artery disease without angina pectoris (5) Pulmonary hypertension (6) Mixed hyperlipidemia (7) Acute on chronic respiratory failure with hypoxemia (8) Chronic obstructive pulmonary disease (9) Cigarette smoker Hospital Course Date of Admission: Feb 18, 2022 at 18:52 Admission Diagnosis : Family Physician/Provider: Flavio Jackson MD Date of Discharge: 02/25/22 Discharge Diagnosis: [ ] Hospital Course: CAD and multiple cardiac arrests admitted on 02/18 from the ER after same day visit for worsening SOB of several days duration (despite using BiPAP he had at home from a previous COPD exacerbation). He had been previously hospitalized in December for pneumonia, and stated he felt he never returned to his normal state since that stay. At the time of admission, he was found to have acute respiratory failure likely related to COPD exacerbation and acute upper respiratory tract infection (per CXR showing COPD and opacities in the right upper and lower lung improved relative to imaging done in December), respiratory acidosis, and atrial fibrillation. He was placed in ICU and started on BiPAP (/, 30%) IV solumedrol, cetriaxone and duonebs. Cardiology was consulted on 02/19 and initiated Cardizem drip and rivoraxaban. His acidosis resolved on 02/19 and he no longer showed signs of respiratory distress by 02/21; his breathing continued to improve and he denied SOB with rest thereafter. The patient was tachycardic thoughout his stay; there was some improvement on 02/25 after many adjustments in rate control (amiodarone once on 02/19, and escalations in Cardizem and metoprolol to 480 mg and 100 mg bid by 02/25, respectively). He was otherwise improving and requesting to go home and was discharged on 02/25 with cardiology medications and a next-day cardiology appointment. Subjective/Events-last exam Patient doing better Lungs are improved Tachycardia with A-fib requiring medication changes Dr. Douglass appreciated No pain reported Home meds restarted No longer on BiPAP Review of Systems General: Fatigue, Malaise Pulmonary: Dyspnea, Cough Focused Exam Lactate Level 07/13/22 12:02: Lactic Acid Level 1.84 Objective Exam Vital Signs Vital Signs Date Time Temp Pulse Resp B/P (MAP) Pulse Ox O2 Delivery O2 Flow Rate FiO2 07/15/22 04:30 124 115/73 (80) 95 NIV Bilevel 35.00 07/15/22 04:00 37.2 07/15/22 02:41 25 07/14/22 04:00 30 Capillary Refill : Less Than 3 Seconds General Appearance: No Apparent Distress, WD/WN, Chronically ill Respiratory: No Accessory Muscle Use, No Respiratory Distress, Crackles, Decreased Breath Sounds Cardiovascular: Regular Rate, Rhythm, Irregularly Irregular, Tachycardia Neurologic/Psychiatric: Alert, Oriented x3, No Motor/Sensory Deficits, Normal Mood/Affect Results/Procedures Lab Laboratory Tests 07/14/22 05:28 Patient resulted labs reviewed. Assessment/Plan Assessment and Plan Assess & Plan/Chief Complaint Assessment: Acute on chronic respiratory failure with hypoxemia and hypercapnia requiring BiPAP now resolved Sepsis PNA HAP type h/o Aspergillus infection of the lung Permanent atrial fibrillation now with RVR Acute on chronic heart failure with preserved ejection fraction (HFpEF) Primary hypertension Coronary artery disease without angina pectoris Pulmonary hypertension Mixed hyperlipidemia Chronic obstructive pulmonary disease with exacerbation Cigarette smoker Plan: ICU RVR management IV abx IV steroids Monitor closely OAC Critical Care Critically Ill Patient STAR KUMARI DO July 14, 2022 06:15
[2022-07-14] MEDS ORDERED: DIGOXIN 0.125 MG (LANOXIN) TAB ONE (06:17)
[2022-07-14] MEDS: DIGOXIN 0.125 MG (LANOXIN) TAB PO SCH ×2 (06:39→09:26)
[2022-07-14] MEDS: inSUlin ASPART (NovoLOG) 1 UNIT/0.01 ML (CHARGE PER UNIT) SC SCH (06:42)
[2022-07-14] MEDS: MAGNESIUM 1 GM/100 ML IVPB 100 ML IV SCH ×4 (06:45→15:29)
[2022-07-14] MEDS ORDERED: KCL 20 MEQ TAB (K-DUR) PO ONE (06:45)
--- NOTE | 2022-07-14 08:24 | Diagnostic Imaging Report ---
EXAMINATION: Chest 1 view HISTORY: Pneumonia COMPARISON: 07/13/2022 FINDINGS: Right-sided air opacities have improved but remain moderate in severity. There is a small right effusion. No pneumothorax. Lungs are hyperinflated. Heart size is normal. IMPRESSION: 1. Improving moderate airspace opacities predominantly in the right in keeping with pneumonia. Dictated by: Dictated on workstation # [id number]
--- NOTE | 2022-07-14 08:29 | Cardiology Progress Note ---
Subjective Date Seen by Provider: July 14, 2022 Time Seen by Provider: 08:25 Subjective/Events-last exam Patient is laying down in bed, feeling better, still tachycardic. Requiring oxygen. Review of Systems General: No Chills, No Night Sweats; Fatigue; No Malaise, No Appetite, No Other HEENT: No Head Aches, No Visual Changes, No Eye Pain, No Ear Pain, No Dysphasia, No Sinus Congestion, No Post Nasal Drip, No Sore Throat, No Other Pulmonary: Dyspnea; No Cough, No Pleuritic Chest Pain, No Other Cardiovascular: No: Chest Pain, Palpitations, Orthopnea, Paroxysmal Noc. Dyspnea, Edema, Lt Headedness, Other Focused Exam Lactate Level 07/13/22 12:02: Lactic Acid Level 1.84 Objective-Cardiology Exam Last Set of Vital Signs Vital Signs 07/14/22 07/14/22 07/14/22 07/14/22 07/14/22 02:32 04:00 07:00 07:24 07:40 Temp 37.0 Pulse 127 Resp 24 B/P (MAP) 117/68 (84) Pulse Ox 96 O2 Delivery Nasal Cannula O2 Flow Rate 5.00 FiO2 30 I&O Intake and Output 07/14/22 00:00 Intake Total 860 ml Output Total 1050 ml Balance -190 ml Intake Oral 360 ml IV Total 500 ml Output Urine Total 1050 ml Daily Weight Change No General: Alert, Oriented X3, Cooperative HEENT: Atraumatic, PERRLA Neck: Supple, No JVD, No Thyromegaly Lungs: Normal Air Movement, Other (Bilateral rhonchi) Heart: Normal S1, Normal S2, No Murmurs, Other (Atrial fibrillation) Abdomen: Normal Bowel Sounds, Soft, No Tenderness, No Hepatosplenomegaly, No Masses Extremities: No Clubbing, No Cyanosis, No Edema, Normal Pulses, No Tenderness/Swelling Skin: No Rashes, No Breakdown, No Significant Lesion Neuro: Normal Gait, Normal Speech, Strength at 5/5 X4 Ext, Normal Tone, Sensation Intact Psych/Mental Status: Mental Status NL, Mood NL Results Lab Laboratory Tests 07/13/22 11:42 07/14/22 05:28 A/P-Cardiology Admission Diagnosis Acute respiratory failure Acute exacerbation of COPD Chronic atrial fibrillation Tachycardia Coronary artery disease Assessment/Plan Recurrent acute respiratory failure with acute exacerbation of COPD Had similar hospitalization February 2022. Maintained on oxygen at home. Continue to monitor Chronic permanent atrial fibrillation, currently borderline tachycardic, Maintained on Cardizem History of ablation in April [address] Godfrye, had multiple cardiac arrest and complex hospitalization in October 2017 I will restart oral Cardizem CD 240 mg daily and monitor tolerance and response Coronary artery disease, history of stenting using 3.020 mm Promus stent to the right coronary artery done in March 2012. Stress test done on November 01, 2019 showing Baseline atrial fibrillation, decreased uptake involving the mid to apical inferior wall with no reversibility, ejection fraction 40 percent probably due to tachycardia. COPD, using oxygen at night, had a complex hospitalization with Legionella pneumonia and CMV, respiratory failure, multiple cardiac arrest in October 2017. loculated pneumonia underwent right lung decortication on January 28, 2018 resulted in hydropneumothorax and marked emphysema and had prolonged chest tube placement. History of congestive heart failure, chronic left ventricular systolic dysfunction. 2D echo was done in November 2021 with ejection fraction 55 to 60%, left atrial dilatation, PA pressure 45 to 50 mmHg. Prolonged hospitalization at between October 2017 and February 2018, had aspergillosis and was intubated. Abdominal aortic aneurysm, had a stent placed by Dr. Hogue done in June 2021. Hypertension, continue to monitor. Hyperlipidemia, continue to monitor lipids Tobaccoyessenia, AIDAN PASTOR MD July 14, 2022 08:29
[2022-07-14] MEDS: ASPIRIN E.C. 81 MG (ECOTRIN) TAB PO SCH (09:26)
[2022-07-14] MEDS: SENNOSIDES 8.6 MG (SENOKOT) TAB PO SCH ×2 (09:27→20:53)
[2022-07-14] MEDS: DOCUSATE SODIUM 100 MG (COLACE) CAP PO SCH ×2 (09:27→20:53)
[2022-07-14] MEDS: UMECLIDINIUM BROMIDE (INCRUSE ELLIPTA) 7'S IH SCH (10:44)
[2022-07-14] MEDS ORDERED: TROUGH ORDER-PHARMACY XX ONE (13:00)
[2022-07-14] MEDS ORDERED: DIGO125T3 PO (13:36)
[2022-07-14] MEDS ORDERED: DILT240T10 PO (13:38)
--- NOTE | 2022-07-14 13:39 | Tele-ICU Progress Note ---
Subjective Date Seen by a Provider: July 14, 2022 Time Seen by a Provider: 13:39 Subjective/Events-last exam (Tele-ICU Physician , Progress Note) Service provided via interactive audio and video telecommunications E-CARE sy stem to a patient admitted to ICU bed in [facility]. Patient is seen today due to persistent need of ICU care Available chart/ vitals / labs / Images reviewed Video assessment done using teleICU camera, rest of exam as per RN Discussed with RN Events overnight : , Remains on 5L NC, currently on Cardizem gtt for a fib. A/P: 66 y/o M hx of aspergillosis pneumonia, COPD on home O2, CHF who presented to ED with acute on chronic hypoxic/hypercapnic respiratory failure now r equiring cont BiPAP. On Vanc and Meropenm for possible pneuomoia. Awaiting cultures. Neuro: A&OX3m On precedex CV: Chronic afib. Will transition to Cardizem PO. -CAD s/p stent -History of congestive heart failure, chronic left ventricular systolic dysfunction. 2D echo was done in November 2021 with ejection fraction 55 to 60%, left atrial dilatation, PA pressure 45 to 50 mmHg. Resp: HCAP: patchy infiltrate on right side. Cont vanc and meropenem. Cont on home 2. Cont neb tx, antibiotics, steroids GI: General diet ID: Leukocytosis remainds elevated. On broad spectrum antibiotics Plans in collaboration with bedside consultants and IM MDs. Discussed with RN to reach out if any questions or concerns A total of 25 minutes of critical care time was devoted to this patient today, required to treat and/or prevent further deterioration of critical care condition ( as above ) Sepsis Event Evaluation Height, Weight, BMI Height: 6'4.00" Weight: 154lbs. 2.0oz. [id number]; 20.95 BMI Method:Stated Focused Exam Lactate Level 07/13/22 12:02: Lactic Acid Level 1.84 Exam Exam Patient acknowledged, consented, and participated in this virtual visit which was conducted using real time audio/video Vital Signs Date Time Temp Pulse Resp B/P (MAP) Pulse Ox O2 Delivery O2 Flow Rate FiO2 07/14/22 12:58 147 07/14/22 12:00 142 116/60 (78) 95 Nasal Cannula 5.00 07/14/22 12:00 95 Nasal Cannula 4.00 07/14/22 12:00 36.8 Nasal Cannula 5.00 07/14/22 11:00 147 126/66 (86) 96 Nasal Cannula 4.00 07/14/22 10:45 94 Nasal Cannula 4.00 07/14/22 10:00 128 122/74 (90) 95 Nasal Cannula 4.00 07/14/22 09:00 134 124/78 (93) 94 Nasal Cannula 4.00 07/14/22 08:00 152 129/77 (94) 96 Nasal Cannula 4.00 07/14/22 08:00 95 Nasal Cannula 4.00 07/14/22 07:40 37.0 Nasal Cannula 5.00 07/14/22 07:24 127 07/14/22 07:00 122 117/68 (84) 96 Nasal Cannula 4.00 07/14/22 06:50 Nasal Cannula 4.00 07/14/22 06:46 96 Nasal Cannula 4.00 07/14/22 06:00 125 107/67 (80) 96 NIV Bilevel 30.00 07/14/22 05:14 121 119/69 (86) 93 NIV Bilevel 30.00 07/14/22 04:19 116 108/82 (91) NIV Bilevel 30.00 07/14/22 04:00 95 NIV Bilevel 30 07/14/22 03:52 36.1 07/14/22 03:00 103 103/59 (74) 94 NIV Bilevel 30.00 07/14/22 02:32 86 24 96 30.00 07/14/22 02:00 104 91/69 (76) 91 NIV Bilevel 30.00 07/14/22 01:00 90 07/14/22 01:00 85 97/59 (72) 95 NIV Bilevel 30.00 07/14/22 00:00 89 112/65 (81) 95 NIV Bilevel 30.00 07/13/22 23:59 96 NIV Bilevel 35 07/13/22 23:44 36.2 07/13/22 23:00 71 127/79 (101) 99 NIV Bilevel 30.00 07/13/22 22:39 76 22 95 30.00 07/13/22 22:00 77 96/60 (71) 97 NIV Bilevel 30.00 07/13/22 21:00 78 104/64 (88) 94 NIV Bilevel 30.00 07/13/22 20:30 76 99/57 (72) 95 NIV Bilevel 30.00 07/13/22 20:21 96 NIV Bilevel 30 07/13/22 20:00 85 122/91 (113) NIV Bilevel 30.00 07/13/22 19:53 36.2 07/13/22 19:45 82 99/71 (79) 98 NIV Bilevel 30.00 07/13/22 19:30 82 97/70 (84) 96 NIV Bilevel 30.00 07/13/22 19:15 82 123/82 (107) 96 NIV Bilevel 30.00 07/13/22 19:00 70 07/13/22 19:00 70 95/76 (83) 96 NIV Bilevel 30.00 07/13/22 18:19 81 31 96 30.00 07/13/22 18:00 81 18 107/67 (80) 93 NIV Bilevel 30.00 07/13/22 17:00 64 18 138/76 (96) 98 NIV Bilevel 40.00 07/13/22 16:00 97 NIV Bilevel 40 07/13/22 16:00 72 16 108/70 (83) 97 NIV Bilevel 50.00 07/13/22 15:57 36.0 07/13/22 15:00 74 16 117/98 (104) 99 NIV Bilevel 50.00 07/13/22 14:58 72 28 98 50.00 07/13/22 14:18 36.7 71 96 07/13/22 14:00 77 12 113/58 (76) 99 NIV Bilevel 50.00 I & O 07/14/22 07:00 Intake Total 2460 ml Output Total 2100 ml Balance 360 ml Height & Weight Height: 6'4.00" Weight: 154lbs. 2.0oz. 69.958831wa; 20.95 BMI Method:Stated General Appearance: No Apparent Distress, WD/WN, Chronically ill HEENT: PERRL/EOMI, Normal ENT Inspection, Pharynx Normal Neck: Full Range of Motion, Normal Inspection, Non Tender, Supple, Carotid Bruit Respiratory: Chest Non Tender, No Respiratory Distress, Accessory Muscle Use, Crackles, Decreased Breath Sounds Cardiovascular: No Edema, No Gallop, No JVD, No Murmur, Normal Peripheral Pulses, Irregularly Irregular Capillary Refill: Less Than 3 Seconds Gastrointestinal: normal bowel sounds, non tender, soft Extremity: Normal Capillary Refill, Normal Inspection, Normal Range of Motion, Non Tender, No Calf Tenderness, No Pedal Edema Neurologic/Psychiatric: Alert, Oriented x3, No Motor/Sensory Deficits, Normal Mood/Affect Skin: Normal Color, Warm/Dry Lymphatic: No Adenopathy Results Lab Laboratory Tests 07/13/22 11:42 07/14/22 05:28 Assessment/Plan Assessment/Plan . NABILA BENZ MD July 14, 2022 13:39
[2022-07-14] MEDS: RIVAROXABAN 20 MG TABLET (XARELTO) PO SCH (18:45)
[2022-07-14] MEDS: FLUTICASONE/VILANTEROL 200 MCG 14'S (BREO) IH SCH (18:50)
[2022-07-14] MEDS ORDERED: PANTOPRAZOLE 40 MG (PROTONIX) TAB PO NR (19:30)
[2022-07-14] MEDS: LORazepam 0.5 MG (ATIVAN) TABLET PO PRN (20:51)
[2022-07-14] MEDS: ACETAMINOPHEN 325 MG TABLET PO PRN (20:51)
[2022-07-14] MEDS ORDERED: RT--FLUTICASONE/SALMETEROL 232-14 (AIRDUO RespiCLICK) IH SCH (21:00)
[2022-07-14] MEDS ORDERED: FAMOTIDINE 20 MG (PEPCID) TABLET PO SCH (21:00)
[2022-07-14 22:12] VITALS: BP 117/63
[2022-07-15] MEDS: MEROPENEM 500 MG in NS (IVPB) 100 ML IV SCH ×5 (00:04→23:38)
[2022-07-15] MEDS: RT-ALBUTEROL/IPRATROPIUM 3 ML (DUONEB) VIAL INH SCH ×6 (02:40→22:16)
[2022-07-15 02:41] VITALS: BP 121/81
[2022-07-15 05:01] LABS: EOSINOPHILS % (AUTO) 0 % (0-10)
[2022-07-15 05:03] LABS: BASOPHILS % (AUTO) 0 % (0-10); HEMATOCRIT 33 % (40-54); HEMOGLOBIN 11.4 g/dL (13.3-17.7); LYMPHOCYTES # (AUTO) 0.9 10^3/uL (1.0-4.0); LYMPHOCYTES % (AUTO) 7 % (12-44); MEAN CORPUSCULAR HEMOGLOBIN 35 pg (25-34); MEAN CORPUSCULAR HGB CONC 34 g/dL (32-36); MEAN CORPUSCULAR VOLUME 102 fL (80-99); MEAN PLATELET VOLUME 10.7 fL (9.0-12.2); MONOCYTES # (AUTO) 0.7 10^3/uL (0.0-1.0); MONOCYTES % (AUTO) 5 % (0-12); NEUTROPHILS # (AUTO) 11.5 10^3/uL (1.8-7.8); NEUTROPHILS % (AUTO) 87 % (42-75); PLATELET COUNT 103 10^3/uL (130-400); WHITE BLOOD COUNT 13.2 10^3/uL (4.3-11.0)
[2022-07-15 05:21] LABS: POTASSIUM 3.7 MMOL/L (3.6-5.0)
[2022-07-15 05:24] LABS: TOTAL PROTEIN 5.6 GM/DL (6.4-8.2)
[2022-07-15 05:26] LABS: BILIRUBIN,TOTAL 0.9 MG/DL (0.1-1.0)
[2022-07-15 05:27] LABS: CREATININE SERUM 0.72 MG/DL (0.60-1.30)
[2022-07-15 05:30] LABS: MAGNESIUM 1.8 MG/DL (1.6-2.4)
--- NOTE | 2022-07-15 06:03 | Progress Note ---
Subjective Date Seen by a Provider: July 15, 2022 Time Seen by a Provider: 11:00 Subjective/Events-last exam Patient doing better AF RVR still a challenge Lungs are improved No falls No pain No BM yet Review of Systems General: Fatigue, Malaise Focused Exam Lactate Level 07/13/22 12:02: Lactic Acid Level 1.84 Objective Exam Last Set of Vital Signs Vital Signs Date Time Temp Pulse Resp B/P (MAP) Pulse Ox O2 Delivery O2 Flow Rate FiO2 07/15/22 04:30 124 115/73 (80) 95 NIV Bilevel 35.00 07/15/22 04:00 37.2 07/15/22 04:00 30 07/15/22 02:41 25 Capillary Refill : Less Than 3 Seconds I&O Intake and Output 07/15/22 00:00 Intake Total 2900 ml Output Total 1250 ml Balance 1650 ml Intake Oral 350 ml IV Total 2550 ml Output Urine Total 1250 ml General: Alert, Oriented X3, Cooperative, No Acute Distress Lungs: Clear to Auscultation, Normal Air Movement Heart: Other (tachy) Psych/Mental Status: Mental Status NL, Mood NL Results Lab Laboratory Tests 07/14/22 10:38: Glucometer 136H 07/15/22 04:46: White Blood Count 13.2H, Red Blood Count 3.25L, Hemoglobin 11.4L, Hematocrit 33L , Mean Corpuscular Volume 102H, Mean Corpuscular Hemoglobin 35H, Mean Corpuscular Hemoglobin Concent 34, Red Cell Distribution Width 13.4, Platelet Count 103L, Mean Platelet Volume 10.7, Immature Granulocyte % (Auto) 1, Neutrophils (%) (Auto) 87H, Lymphocytes (%) (Auto) 7L, Monocytes (%) (Auto) 5, Eosinophils (%) (Auto) 0, Basophils (%) (Auto) 0, Neutrophils # (Auto) 11.5H, Lymphocytes # (Auto) 0.9L, Monocytes # (Auto) 0.7, Eosinophils # (Auto) 0.0, Basophils # (Auto) 0.0, Immature Granulocyte # (Auto) 0.1, Percent Immature Platelet Fraction 6.8, Sodium Level 135, Potassium Level 3.7, Chloride Level 100, Carbon Dioxide Level 25, Anion Gap 10, Blood Urea Nitrogen 8, Creatinine 0.72, Estimat Glomerular Filtration Rate 101, BUN/Creatinine Ratio 11, Glucose Level 123H, Calcium Level 9.0, Corrected Calcium 9.8, Magnesium Level 1.8, Total Bilirubin 0.9, Aspartate Amino Transf (AST/SGOT) 16, Alanine Aminotransferase (ALT/SGPT) 16, Alkaline Phosphatase 60, Total Protein 5.6L, Albumin 3.0L Microbiology 07/13/22 MRSA Screen - Final, Complete MRSA not isolated 07/13/22 Blood Culture - Preliminary, Resulted No growth Assessment/Plan Assessment/Plan Assess & Plan/Chief Complaint Assessment: Acute on chronic respiratory failure with hypoxemia and hypercapnia requiring BiPAP now resolved Sepsis PNA HAP type h/o Aspergillus infection of the lung Permanent atrial fibrillation now with RVR Acute on chronic heart failure with preserved ejection fraction (HFpEF) Primary hypertension Coronary artery disease without angina pectoris Pulmonary hypertension Mixed hyperlipidemia Chronic obstructive pulmonary disease with exacerbation Cigarette smoker Plan: ICU RVR management IV abx IV steroids Monitor closely OAC STAR KUMARI DO July 15, 2022 06:03
[2022-07-15 07:06] VITALS: BP 129/80
[2022-07-15] MEDS: UMECLIDINIUM BROMIDE (INCRUSE ELLIPTA) 7'S IH SCH (07:26)
[2022-07-15] MEDS: FLUTICASONE/VILANTEROL 200 MCG 14'S (BREO) IH SCH (07:26)
[2022-07-15] MEDS ORDERED: KCL 20 MEQ TAB (K-DUR) PO ONE (08:15)
[2022-07-15] MEDS ORDERED: MAGNESIUM 1 GM/100 ML IVPB 200 ML IV ONE (08:18)
[2022-07-15] MEDS: MAGNESIUM 1 GM/100 ML IVPB 100 ML IV SCH ×2 (08:21→09:58)
[2022-07-15] MEDS: AtorvaSTATin TABLET 10 MG TABLET PO SCH (08:24)
[2022-07-15] MEDS: PANTOPRAZOLE 40 MG (PROTONIX) TAB PO SCH (08:24)
[2022-07-15] MEDS: ASPIRIN E.C. 81 MG (ECOTRIN) TAB PO SCH (08:24)
[2022-07-15] MEDS: DOCUSATE SODIUM 100 MG (COLACE) CAP PO SCH ×2 (08:25→20:08)
[2022-07-15] MEDS: SENNOSIDES 8.6 MG (SENOKOT) TAB PO SCH ×2 (08:25→20:08)
[2022-07-15] MEDS: DIGOXIN 0.125 MG (LANOXIN) TAB PO SCH (08:25)
[2022-07-15] MEDS: LORazepam 0.5 MG (ATIVAN) TABLET PO PRN ×2 (08:28→20:20)
[2022-07-15] MEDS ORDERED: LORATADINE (CLARITIN) 10 MG TAB PO SCH (09:00)
--- NOTE | 2022-07-15 09:45 | Cardiology Progress Note ---
Subjective Date Seen by Provider: July 15, 2022 Time Seen by Provider: 09:43 Subjective/Events-last exam Patient was seen at bedside, laying down comfortably, still having shortness of breath, tachycardic Review of Systems General: No Chills, No Night Sweats; Fatigue; No Malaise, No Appetite, No Other HEENT: No Head Aches, No Visual Changes, No Eye Pain, No Ear Pain, No Dysphasia, No Sinus Congestion, No Post Nasal Drip, No Sore Throat, No Other Pulmonary: Dyspnea; No Cough, No Pleuritic Chest Pain, No Other Cardiovascular: No: Chest Pain, Palpitations, Orthopnea, Paroxysmal Noc. Dyspnea, Edema, Lt Headedness, Other Focused Exam Lactate Level 07/13/22 12:02: Lactic Acid Level 1.84 Objective-Cardiology Exam Last Set of Vital Signs Vital Signs 07/15/22 07/15/22 07/15/22 04:00 07:06 08:00 Temp 36.2 Pulse 122 Resp 24 B/P (MAP) 117/71 (86) Pulse Ox 97 O2 Delivery NIV Bilevel O2 Flow Rate 35.00 FiO2 30 I&O Intake and Output 07/15/22 00:00 Intake Total 2900 ml Output Total 1250 ml Balance 1650 ml Intake Oral 350 ml IV Total 2550 ml Output Urine Total 1250 ml General: Alert, Oriented X3, Cooperative HEENT: Atraumatic, PERRLA Neck: Supple, No JVD, No Thyromegaly Lungs: Normal Air Movement, Other (Bilateral rhonchi) Heart: Normal S1, Normal S2, No Murmurs, Other (Atrial fibrillation) Abdomen: Normal Bowel Sounds, Soft, No Tenderness, No Hepatosplenomegaly, No Masses Extremities: No Clubbing, No Cyanosis, No Edema, Normal Pulses, No Tenderness/Swelling Skin: No Rashes, No Breakdown, No Significant Lesion Neuro: Normal Gait, Normal Speech, Strength at 5/5 X4 Ext, Normal Tone, Sensation Intact Psych/Mental Status: Mental Status NL, Mood NL Results Lab Laboratory Tests 07/15/22 04:46 A/P-Cardiology Admission Diagnosis Acute respiratory failure Acute exacerbation of COPD Chronic atrial fibrillation Tachycardia Coronary artery disease Assessment/Plan Recurrent acute respiratory failure with acute exacerbation of COPD Had similar hospitalization February 2022. Maintained on oxygen at home. Continue to monitor Chronic permanent atrial fibrillation, currently tachycardic Maintained on Cardizem History of ablation in April [address] Godfrey, had multiple cardiac arrest and complex hospitalization in October 2017 Will increase Cardizem CD to 240 twice daily in addition patient is receiving 60 mg every 6 hours and digoxin 0.125 mg daily Add Lopressor 25 mg twice daily Monitor heart rate response Coronary artery disease, history of stenting using 3.020 mm Promus stent to the right coronary artery done in March 2012. Stress test done on November 01, 2019 showing Baseline atrial fibrillation, decreased uptake involving the mid to apical inferior wall with no reversibility, ejection fraction 40 percent probably due to tachycardia. COPD, using oxygen at night, had a complex hospitalization with Legionella pneumonia and CMV, respiratory failure, multiple cardiac arrest in October 2017. loculated pneumonia underwent right lung decortication on January 28, 2018 resulted in hydropneumothorax and marked emphysema and had prolonged chest tube placement. History of congestive heart failure, chronic left ventricular systolic dysfunction. 2D echo was done in November 2021 with ejection fraction 55 to 60%, left atrial dilatation, PA pressure 45 to 50 mmHg. 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 Abdominal aortic aneurysm, had a stent placed by Dr. Hogue done in June 2021. Hypertension, continue to monitor. Hyperlipidemia, continue to monitor lipids DARBY Healy BASHAR J MD July 15, 2022 09:45
[2022-07-15] MEDS ORDERED: ONDANSETRON 4 MG (ZOFRAN) ORAL DISSOLVE TAB SL PRN (11:15)
[2022-07-15] MEDS ORDERED: LORazepam INJ 2 MG/ML (ATIVAN) VIAL IM/IV PRN (11:15)
[2022-07-15] MEDS ORDERED: LORazepam INJ 2 MG/ML (ATIVAN) VIAL IV PRN (11:15)
[2022-07-15] MEDS ORDERED: 1/2 NS IV SOLUTION 1,000 ML IV PRN (11:15)
[2022-07-15] MEDS ORDERED: D5 1/2 NS 1000 ML IV SOLUTION 1,000 ML IV PRN (11:15)
[2022-07-15] MEDS ORDERED: SENNA W/DOCUSATE (SENOKOT S) TABLET PO PRN (11:15)
[2022-07-15] MEDS ORDERED: ANTACID SUSP 30 ML UDC (MYLANTA) PO PRN (11:15)
[2022-07-15] MEDS ORDERED: ONDANSETRON 4 MG/2 ML (SDV) Z0FRAN IV PRN (11:15)
[2022-07-15] MEDS: meTOprolol TARTRATE 25 MG (LOPRESSOR) TABLET PO SCH ×2 (12:18→20:12)
--- NOTE | 2022-07-15 12:23 | Tele-ICU Progress Note ---
Subjective Date Seen by a Provider: July 15, 2022 Time Seen by a Provider: 12:22 Subjective/Events-last exam (Tele-ICU Physician , Progress Note ) Service provided via interactive audio and video telecommunications E-CARE system to a patient admitted to ICU bed in [facility]. Patient is seen today due to persistent need of ICU care Available chart/ vitals / labs / Images reviewed Video assessment done using teleICU camera, rest of exam as per RN Discussed with RN Events overnight : Afebrile hemodynamically stable Respiratory - I/O = Pressors- no A/P Acute respiratory failure - improved o n 6 L ( chronic hypoxix resp failure - 4 l baseline - CPM -cont BIPAP at night A fib , chronic , RVR - as per cards , beta blockers , Ca blockers , dig - xarelto AECOPD - CPM CAD - as per cards ETON abuse - CIVA started , vitamind Pulm HTN - multoifactorial , all above - RVSP 55 mmHg Abdominal aortic aneurysm, had a stent placed by Dr. Hogue done in June 2021. -H/o complex hospitalization 2018 -with Legionella pneumonia and CMV, respiratory failure, multiple cardiac arrest in October 2017. loculated pneumonia underwent right lung decortication on January 28, 2018 resulted in hydropneumothorax and marked emphysema and had prolonged chest tube placement. -Prolonged hospitalization at between October 2017 and February 2018, had aspergillosis and was intubated. Lines : periph , (Central Line Necessity Reviewed) Meier: OG: Nutrition: Analgesia: Anxiety/ delirium VTE Prophylaxis: xarelto Stress Ulcer Prophylaxis: Plans in collaboration with bedside consultants and IM MDs. Discussed with RN to reach out if any questions or concerns Case and care daily discussed on multidisciplinary rounds ( RN, PharmD, Privacy Compliance Manager , Respiratory Therapy, child daycare worker ) A total of 15 minutes of critical care time was devoted to this patient today, required to treat and/or prevent further deterioration of critical care condition ( as above ) . I am remotely monitoring this patient from another state. I am unable to do the bedside exam, and history/physical and pertinent information is taken from other notes in the computer and bedside staff. Sepsis Event Evaluation Height, Weight, BMI Height: 6'4.00" Weight: 154lbs. 2.0oz. 69.825710fh; 21.28 BMI Method:Stated Focused Exam Lactate Level 07/13/22 12:02: Lactic Acid Level 1.84 Exam Exam Patient acknowledged, consented, and participated in this virtual visit which wa s conducted using real time audio/video Vital Signs Date Time Temp Pulse Resp B/P (MAP) Pulse Ox O2 Delivery O2 Flow Rate FiO2 07/15/22 10:42 95 High Flow N/C 7.00 07/15/22 10:00 152 112/76 (88) 94 NIV Bilevel 35.00 07/15/22 09:00 138 130/91 (104) 95 NIV Bilevel 35.00 07/15/22 08:00 36.2 NIV Bilevel 35.00 07/15/22 08:00 96 High Flow N/C 5.00 07/15/22 08:00 122 117/71 (86) 97 NIV Bilevel 35.00 07/15/22 07:06 109 24 95 35.00 07/15/22 07:04 128 07/15/22 07:00 108 129/80 (96) 98 NIV Bilevel 35.00 07/15/22 06:00 104 112/81 (91) 95 NIV Bilevel 35.00 07/15/22 05:30 108 120/72 (79) 92 NIV Bilevel 35.00 07/15/22 05:00 112 129/77 (82) 96 NIV Bilevel 35.00 07/15/22 04:30 124 115/73 (80) 95 NIV Bilevel 35.00 07/15/22 04:00 37.2 07/15/22 04:00 109 131/79 (94) 97 NIV Bilevel 35.00 07/15/22 04:00 96 NIV Bilevel 30 07/15/22 03:30 112 118/69 (93) 95 NIV Bilevel 35.00 07/15/22 03:00 94 129/77 (87) 96 NIV Bilevel 35.00 07/15/22 02:41 101 25 96 35.00 07/15/22 02:30 96 121/81 (91) 96 NIV Bilevel 35.00 07/15/22 02:11 113 138/83 (109) 94 NIV Bilevel 35.00 07/15/22 01:30 107 129/69 (79) 97 NIV Bilevel 35.00 07/15/22 01:00 98 07/15/22 01:00 98 119/68 (77) 96 NIV Bilevel 35.00 07/15/22 00:00 107 112/67 (80) 94 NIV Bilevel 35.00 07/14/22 23:59 96 NIV Bilevel 30 07/14/22 23:49 37.4 07/14/22 23:00 116 106/55 (78) 95 NIV Bilevel 35.00 07/14/22 22:15 107 95 NIV Bilevel 35.00 07/14/22 22:12 117 25 95 35.00 07/14/22 22:00 128 117/63 (80) 93 Nasal Cannula 5.00 07/14/22 21:30 115 157/75 (107) 91 Nasal Cannula 5.00 07/14/22 21:00 117 154/86 (111) 93 Nasal Cannula 5.00 07/14/22 20:30 113 118/71 (80) 94 Nasal Cannula 5.00 07/14/22 20:00 96 Nasal Cannula 5.00 07/14/22 20:00 108 112/62 (86) 91 Nasal Cannula 5.00 07/14/22 19:30 111 126/97 (108) 93 Nasal Cannula 5.00 07/14/22 19:00 117 135/71 (86) 91 Nasal Cannula 5.00 07/14/22 19:00 109 07/14/22 18:50 89 Nasal Cannula 5.00 07/14/22 18:00 109 164/74 (104) 90 Nasal Cannula 5.00 07/14/22 17:00 72 132/67 (88) 96 Nasal Cannula 5.00 07/14/22 16:00 93 124/60 (81) 95 Nasal Cannula 5.00 07/14/22 15:50 95 Nasal Cannula 4.00 07/14/22 15:00 93 124/62 (82) 91 Nasal Cannula 5.00 07/14/22 14:56 91 Nasal Cannula 4.00 07/14/22 14:00 102 116/77 (90) 95 Nasal Cannula 5.00 07/14/22 13:00 126 114/66 (82) 95 Nasal Cannula 5.00 07/14/22 12:58 147 I & O 07/15/22 07:00 Intake Total 1300 ml Output Total 500 ml Balance 800 ml Height & Weight Height: 6'4.00" Weight: 154lbs. 2.0oz. 69.136502iq; 21.28 BMI Method:Stated General Appearance: No Apparent Distress, WD/WN, Chronically ill HEENT: PERRL/EOMI, Normal ENT Inspection, Pharynx Normal Neck: Full Range of Motion, Normal Inspection, Non Tender, Supple, Carotid Bruit Respiratory: No Accessory Muscle Use, No Respiratory Distress, Crackles, Decreased Breath Sounds Cardiovascular: Regular Rate, Rhythm, Irregularly Irregular, Tachycardia Capillary Refill: Less Than 3 Seconds Gastrointestinal: normal bowel sounds, non tender, soft Extremity: Normal Capillary Refill, Normal Inspection, Normal Range of Motion, Non Tender, No Calf Tenderness, No Pedal Edema Neurologic/Psychiatric: Alert, Oriented x3, No Motor/Sensory Deficits, Normal Mood/Affect Skin: Normal Color, Warm/Dry Lymphatic: No Adenopathy Results Lab Laboratory Tests 07/14/22 05:28 07/15/22 04:46 Assessment/Plan Assessment/Plan 1 ALEXIS MARSH MD July 15, 2022 12:23
[2022-07-15] MEDS: LORazepam 1 MG (ATIVAN) TAB PO PRN ×2 (13:13→16:41)
[2022-07-15] MEDS: RIVAROXABAN 20 MG TABLET (XARELTO) PO SCH (16:41)
[2022-07-15] MEDS: MAGNESIUM OXIDE (MAG-OX)400 MG TAB PO SCH (20:12)
[2022-07-15 22:16] VITALS: BP 119/79
[2022-07-16] MEDS: RT-ALBUTEROL/IPRATROPIUM 3 ML (DUONEB) VIAL INH SCH ×6 (02:02→21:47)
[2022-07-16 02:03] VITALS: BP 131/78
[2022-07-16] MEDS: LORazepam 1 MG (ATIVAN) TAB PO PRN ×2 (03:31→08:48)
[2022-07-16 04:35] LABS: BASOPHILS % (AUTO) 0 % (0-10); HEMOGLOBIN 10.7 g/dL (13.3-17.7)
[2022-07-16 04:37] LABS: EOSINOPHILS # (AUTO) 0.1 10^3/uL (0.0-0.3); EOSINOPHILS % (AUTO) 1 % (0-10); HEMATOCRIT 32 % (40-54); LYMPHOCYTES # (AUTO) 0.9 10^3/uL (1.0-4.0); LYMPHOCYTES % (AUTO) 8 % (12-44); MEAN CORPUSCULAR HEMOGLOBIN 35 pg (25-34); MEAN CORPUSCULAR HGB CONC 34 g/dL (32-36); MEAN CORPUSCULAR VOLUME 104 fL (80-99); MEAN PLATELET VOLUME 10.7 fL (9.0-12.2); MONOCYTES # (AUTO) 0.6 10^3/uL (0.0-1.0); MONOCYTES % (AUTO) 5 % (0-12); NEUTROPHILS # (AUTO) 9.6 10^3/uL (1.8-7.8); NEUTROPHILS % (AUTO) 86 % (42-75); PLATELET COUNT 108 10^3/uL (130-400); WHITE BLOOD COUNT 11.2 10^3/uL (4.3-11.0)
[2022-07-16 04:45] LABS: ALBUMIN 2.9 GM/DL (3.2-4.5)
[2022-07-16 04:46] LABS: CALCIUM 8.6 MG/DL (8.5-10.1)
[2022-07-16 04:47] LABS: TOTAL PROTEIN 5.5 GM/DL (6.4-8.2)
[2022-07-16 04:49] LABS: BILIRUBIN,TOTAL 0.9 MG/DL (0.1-1.0)
[2022-07-16 04:51] LABS: CREATININE SERUM 0.72 MG/DL (0.60-1.30)
[2022-07-16 04:54] LABS: MAGNESIUM 1.7 MG/DL (1.6-2.4)
[2022-07-16] MEDS: MEROPENEM 500 MG in NS (IVPB) 100 ML IV SCH ×3 (05:21→18:10)
[2022-07-16] MEDS: MULTIVIT W/MINERALS TAB (THERAGRAN M) PO SCH (05:21)
[2022-07-16] MEDS: THIAMINE 100 MG (VITAMIN B-1) TAB PO SCH (05:21)
--- NOTE | 2022-07-16 05:22 | Progress Note ---
Subjective Date Seen by a Provider: Jul 16, 2022 Time Seen by a Provider: 11:00 Subjective/Events-last exam Patient doing much better Breathing is better Rate is controlled of A-fib Moving to fourth floor Review of Systems General: Fatigue, Malaise Pulmonary: Dyspnea Focused Exam Lactate Level 07/13/22 12:02: Lactic Acid Level 1.84 Objective Exam Last Set of Vital Signs Vital Signs Date Time Temp Pulse Resp B/P (MAP) Pulse Ox O2 Delivery O2 Flow Rate FiO2 07/16/22 03:35 100 NIV Bilevel 35 07/16/22 03:25 37.1 68 26 124/67 (86) 35.00 Capillary Refill : Less Than 3 Seconds I&O Intake and Output 07/16/22 00:00 Intake Total 1700 ml Output Total 1975 ml Balance -275 ml Intake Oral 1400 ml IV Total 300 ml Output Urine Total 1975 ml General: Alert, Oriented X3, Cooperative, No Acute Distress Lungs: Other (coarse) Heart: Regular Rate Psych/Mental Status: Mental Status NL Results Lab Laboratory Tests 07/16/22 04:29: White Blood Count 11.2H, Red Blood Count 3.06L, Hemoglobin 10.7L, Hematocrit 32L , Mean Corpuscular Volume 104H, Mean Corpuscular Hemoglobin 35H, Mean Corpuscular Hemoglobin Concent 34, Red Cell Distribution Width 13.5, Platelet Count 108L, Mean Platelet Volume 10.7, Immature Granulocyte % (Auto) 1, Neutroph ils (%) (Auto) 86H, Lymphocytes (%) (Auto) 8L, Monocytes (%) (Auto) 5, Eosinophils (%) (Auto) 1, Basophils (%) (Auto) 0, Neutrophils # (Auto) 9.6H, Lymphocytes # (Auto) 0.9L, Monocytes # (Auto) 0.6, Eosinophils # (Auto) 0.1, Basophils # (Auto) 0.0, Immature Granulocyte # (Auto) 0.1, Percent Immature Platelet Fraction 7.2, Sodium Level 132L, Potassium Level 4.0, Chloride Level 100, Carbon Dioxide Level 24, Anion Gap 8, Blood Urea Nitrogen 9, Creatinine 0.72, Estimat Glomerular Filtration Rate 101, BUN/Creatinine Ratio 13, Glucose Level 106H, Calcium Level 8.6, Corrected Calcium 9.5, Magnesium Level 1.7, Total Bilirubin 0.9, Aspartate Amino Transf (AST/SGOT) 25, Alanine Aminotransferase (ALT/SGPT) 22, Alkaline Phosphatase 62, Total Protein 5.5L, Albumin 2.9L, Digoxin Level 0.68L Microbiology 07/13/22 MRSA Screen - Final, Complete MRSA not isolated 07/13/22 Blood Culture - Preliminary, Resulted No growth Assessment/Plan Assessment/Plan Assess & Plan/Chief Complaint Assessment: Acute on chronic respiratory failure with hypoxemia and hypercapnia requiring BiPAP now resolved Sepsis PNA HAP type h/o Aspergillus infection of the lung Permanent atrial fibrillation now with RVR Acute on chronic heart failure with preserved ejection fraction (HFpEF) Primary hypertension Coronary artery disease without angina pectoris Pulmonary hypertension Mixed hyperlipidemia Chronic obstructive pulmonary disease with exacerbation Cigarette smoker Plan: Move to 4th floor RVR management appreciated IV abx IV steroids Monitor closely OAC STAR KUMARI DO Jul 16, 2022 05:22
[2022-07-16] MEDS ORDERED: POTASSIUM CL 10MEQ/50ML IVPB 50 ML IV SCH (06:00)
[2022-07-16] MEDS ORDERED: KCL 20 MEQ TAB (K-DUR) PO SCH (06:00)
[2022-07-16] MEDS ORDERED: MAGNESIUM 1 GM/100 ML IVPB 100 ML IV SCH (06:00)
[2022-07-16] MEDS: MAGNESIUM 1 GM/100 ML IVPB 100 ML IV SCH ×3 (06:01→08:55)
[2022-07-16] MEDS: FLUTICASONE/VILANTEROL 200 MCG 14'S (BREO) IH SCH (06:46)
[2022-07-16] MEDS: UMECLIDINIUM BROMIDE (INCRUSE ELLIPTA) 7'S IH SCH (06:46)
--- NOTE | 2022-07-16 08:28 | Cardiology Progress Note ---
Subjective Date Seen by Provider: Jul 16, 2022 Time Seen by Provider: 08:26 Subjective/Events-last exam Patient was seen at bedside, maintained on BiPAP, feeling better. Review of Systems General: No Chills, No Night Sweats, No Fatigue, No Malaise, No Appetite, No Other HEENT: No Head Aches, No Visual Changes, No Eye Pain, No Ear Pain, No Dysphasia, No Sinus Congestion, No Post Nasal Drip, No Sore Throat, No Other Pulmonary: No Dyspnea, No Cough, No Pleuritic Chest Pain, No Other Cardiovascular: No: Chest Pain, Palpitations, Orthopnea, Paroxysmal Noc. Dyspnea, Edema, Lt Headedness, Other Focused Exam Lactate Level 07/13/22 12:02: Lactic Acid Level 1.84 Objective-Cardiology Exam Last Set of Vital Signs Vital Signs 07/16/22 07/16/22 07/16/22 03:25 03:35 08:00 Temp 37.1 Pulse 81 Resp 26 B/P (MAP) 133/72 (92) Pulse Ox 95 O2 Delivery High Flow N/C O2 Flow Rate 4.00 FiO2 35 I&O Intake and Output 07/15/22 23:59 Intake Total 1700 ml Output Total 1975 ml Balance -275 ml Intake Oral 1400 ml IV Total 300 ml Output Urine Total 1975 ml General: Alert, Oriented X3, Cooperative, No Acute Distress HEENT: Atraumatic, PERRLA Neck: Supple, No JVD, No Thyromegaly Lungs: Clear to Auscultation, Normal Air Movement Heart: Other (tachy) Abdomen: Normal Bowel Sounds, Soft, No Tenderness, No Hepatosplenomegaly, No Masses Extremities: No Clubbing, No Cyanosis, No Edema, Normal Pulses, No Tenderness/Swelling Skin: No Rashes, No Breakdown, No Significant Lesion Neuro: Normal Gait, Normal Speech, Strength at 5/5 X4 Ext, Normal Tone, Sensation Intact Psych/Mental Status: Mental Status NL, Mood NL Results Lab Laboratory Tests 07/16/22 04:29 A/P-Cardiology Admission Diagnosis Acute respiratory failure Acute exacerbation of COPD Chronic atrial fibrillation Tachycardia Coronary artery disease Assessment/Plan Recurrent acute respiratory failure with acute exacerbation of COPD Had similar hospitalization February 2022. Maintained on oxygen at home. Continue to monitor Chronic permanent atrial fibrillation, heart rate better controlled since he started on BiPAP Maintained on Cardizem History of ablation in April [address] Godfrey, had multiple cardiac arrest and complex hospitalization in October 2017 Will increase Cardizem CD to 240 twice daily in addition patient is receiving 60 mg every 6 hours and digoxin 0.125 mg daily and Lopressor 25 mg twice daily Tolerating current medication well. Continue to monitor Coronary artery disease, history of stenting using 3.020 mm Promus stent to the right coronary artery done in March 2012. Stress test done on November 01, 2019 showing Baseline atrial fibrillation, decreased uptake involving the mid to apical inferior wall with no reversibility, ejection fraction 40 percent probably due to tachycardia. COPD, using oxygen at night, had a complex hospitalization with Legionella pneumonia and CMV, respiratory failure, multiple cardiac arrest in October 2017. loculated pneumonia underwent right lung decortication on January 28, 2018 resulted in hydropneumothorax and marked emphysema and had prolonged chest tube placement. History of congestive heart failure, chronic left ventricular systolic dysfunction. 2D echo was done in November 2021 with ejection fraction 55 to 60%, left atrial dilatation, PA pressure 45 to 50 mmHg. 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 Abdominal aortic aneurysm, had a stent placed by Dr. Hogue done in June 2021. Hypertension, continue to monitor. Hyperlipidemia, continue to monitor lipids Tobaccoyessenia, AIDAN PASTOR MD Jul 16, 2022 08:28
[2022-07-16] MEDS: PANTOPRAZOLE 40 MG (PROTONIX) TAB PO SCH (08:48)
[2022-07-16] MEDS: ASPIRIN E.C. 81 MG (ECOTRIN) TAB PO SCH (08:48)
[2022-07-16] MEDS: DIGOXIN 0.125 MG (LANOXIN) TAB PO SCH (08:48)
[2022-07-16] MEDS: MAGNESIUM OXIDE (MAG-OX)400 MG TAB PO SCH ×2 (08:48→20:27)
[2022-07-16] MEDS: DOCUSATE SODIUM 100 MG (COLACE) CAP PO SCH ×2 (08:49→20:27)
[2022-07-16] MEDS: meTOprolol TARTRATE 25 MG (LOPRESSOR) TABLET PO SCH ×2 (08:49→20:26)
[2022-07-16] MEDS: FOLIC ACID 1 MG TAB PO SCH (08:49)
[2022-07-16] MEDS: SENNOSIDES 8.6 MG (SENOKOT) TAB PO SCH ×2 (08:49→20:27)
[2022-07-16] MEDS: AtorvaSTATin TABLET 10 MG TABLET PO SCH (08:49)
--- NOTE | 2022-07-16 10:12 | Tele-ICU Progress Note ---
Subjective Date Seen by a Provider: Jul 16, 2022 Subjective/Events-last exam This virtual visit was conducted using real time audio/video. Thank you for asking us to see this patient for respiratory insufficiency due to AECOPD, pna. Also chronic afib. PE: Appears comfortable. VSS. 93% on 3 LPM. HEENT: No obvious masses, adenopathy or JVD. Chest: clear to auscultation. CV: Irreg. S1 S2 No murmur or added sounds. Abd: Non-tender. Bowel sounds Y. : Unremarkable. 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 No obvious focal findings. Extremities: No edema. Capillary refill < 3 seconds. Skin: unremarkable. Results: Elevated WCC 11.2, improved, BG 106. Decreased Hb 10.7, Na 132. CXR: hyperinflated, Extensive R infilt, smaller infilt L. Available chart/ vitals / labs / images reviewed. Video assessment done using teleICU camera, rest of exam as per RN. A/P: Respiratory insufficiency: Continue present management with O2, PRN BiPAP, Incruse, duonebs. Monitor for increasing oxygenation needs and/or need for intubation. Critical Care: critically ill patient. Cont.Xarelto, CIWA, ASA, Dilt., PPI, metop. Consider lower level of care soon. Discussed with CONSTANTIN Claudio. Asked RN to reach out to eICU if any questions or concerns later. Time spent with patient/coordination of care with other health professionals (mins): 20 Sepsis Event Evaluation Height, Weight, BMI Height: 6'4.00" Weight: 154lbs. 2.0oz. [id number]; 21.04 BMI Method:Stated Focused Exam Lactate Level 07/13/22 12:02: Lactic Acid Level 1.84 Exam Exam Patient acknowledged, consented, and participated in this virtual visit which was conducted using real time audio/video Vital Signs Date Time Temp Pulse Resp B/P (MAP) Pulse Ox O2 Delivery O2 Flow Rate FiO2 07/16/22 08:00 36.1 07/16/22 08:00 81 133/72 (92) 95 High Flow N/C 4.00 07/16/22 07:00 71 132/68 (89) 91 High Flow N/C 4.00 07/16/22 06:46 88 High Flow N/C 3.00 07/16/22 06:42 84 07/16/22 06:02 High Flow N/C 4.00 07/16/22 06:00 79 137/76 (96) 95 High Flow N/C 6.00 07/16/22 05:30 High Flow N/C 6.00 07/16/22 05:00 75 115/71 (86) 98 NIV Bilevel 35.00 07/16/22 04:00 80 123/79 (94) 97 NIV Bilevel 35.00 07/16/22 03:35 100 NIV Bilevel 35 07/16/22 03:25 37.1 68 26 124/67 (86) 100 NIV Bilevel 35.00 07/16/22 03:00 75 124/67 (86) 100 NIV Bilevel 35.00 07/16/22 02:03 75 26 97 07/16/22 02:00 67 126/85 (99) 97 NIV Bilevel 35.00 07/16/22 01:00 73 133/80 (97) 97 NIV Bilevel 35.00 07/16/22 01:00 76 07/16/22 00:00 93 NIV Bilevel 35 07/16/22 00:00 67 118/67 (84) 96 NIV Bilevel 35.00 07/15/22 23:35 37.2 57 114/64 (81) NIV Bilevel 35.00 07/15/22 23:00 66 101/63 (76) 94 NIV Bilevel 35.00 07/15/22 22:16 90 23 93 07/15/22 22:00 92 119/79 (92) 96 NIV Bilevel 35.00 07/15/22 21:00 92 126/81 (96) 95 NIV Bilevel 35.00 07/15/22 20:52 NIV Bilevel 35.00 07/15/22 20:00 91 119/79 (92) 92 High Flow N/C 6.00 07/15/22 19:50 37.0 07/15/22 19:10 91 High Flow N/C 6.00 07/15/22 19:02 91 High Flow N/C 6.00 07/15/22 19:00 124 07/15/22 19:00 126 24 142/73 (96) 91 High Flow N/C 6.00 07/15/22 18:00 130 149/85 (106) 93 NIV Bilevel 35.00 07/15/22 17:00 102 135/71 (92) 94 NIV Bilevel 35.00 07/15/22 16:00 130 134/77 (96) 94 NIV Bilevel 35.00 07/15/22 15:50 37.0 07/15/22 15:03 High Flow N/C 7.00 07/15/22 15:00 112 138/91 (107) 90 NIV Bilevel 35.00 07/15/22 14:50 95 High Flow N/C 7.00 07/15/22 14:00 123 154/107 (123) 96 NIV Bilevel 35.00 07/15/22 13:02 135 07/15/22 13:00 135 123/81 (95) 96 NIV Bilevel 35.00 07/15/22 12:00 96 High Flow N/C 5.00 07/15/22 12:00 170 140/96 (111) 92 NIV Bilevel 35.00 07/15/22 11:00 156 125/82 (96) 93 NIV Bilevel 35.00 07/15/22 10:42 95 High Flow N/C 7.00 I & O 07/16/22 07:00 Intake Total 2175 ml Output Total 2300 ml Balance -125 ml Height & Weight Height: 6'4.00" Weight: 154lbs. 2.0oz. [id number]; 21.04 BMI Method:Stated General Appearance: No Apparent Distress, WD/WN, Chronically ill HEENT: PERRL/EOMI, Normal ENT Inspection, Pharynx Normal Neck: Full Range of Motion, Normal Inspection, Non Tender, Supple, Carotid Bruit Respiratory: No Accessory Muscle Use, No Respiratory Distress, Crackles, Decreased Breath Sounds Cardiovascular: Regular Rate, Rhythm, Irregularly Irregular, Tachycardia Capillary Refill: Less Than 3 Seconds Gastrointestinal: normal bowel sounds, non tender, soft Extremity: Normal Capillary Refill, Normal Inspection, Normal Range of Motion, Non Tender, No Calf Tenderness, No Pedal Edema Neurologic/Psychiatric: Alert, Oriented x3, No Motor/Sensory Deficits, Normal Mood/Affect Skin: Normal Color, Warm/Dry Lymphatic: No Adenopathy Results Lab Laboratory Tests 07/15/22 04:46 07/16/22 04:29 Assessment/Plan Assessment/Plan See free text. Critical Care: Critically Ill Patient ANTON DILL MD Jul 16, 2022 10:12
--- NOTE | 2022-07-16 14:00 | Physical Therapy Evaluation ---
PT Evaluation-General Medical Diagnosis Admission Date July 13, 2022 at 12:51 Medical Diagnosis: respiratory failure Onset Date: July 13, 2022 Therapy Diagnosis Therapy Diagnosis: debility/weakness Height/Weight Height (Feet): 6 Height (Inches): 4.00 Weight (Pounds): 154 Weight (Ounces): 2.0 Precautions Precautions/Isolations: Fall Prevention, Standard Precautions Referral Physician: Radha Reason for Referral: Evaluation/Treatment Medical History Pertinent Medical History: Atrial Fib, Arthritis, CAD, COPD, HTN, Smoking Current History ER secondary to SOA and decreased SAO2 Reviewed History: Yes Social History Home: Single Level Current Living Status: Spouse Prior Prior Level of Function SCALE: Activities may be completed with or without assistive devices. 1-Wgdqhchcej-zecmesq completes the activity by him/herself with no assistance from a helper. 5-Set-up or Clean-up Assistance-helper sets up or cleans up; patient completes activity. [place] assists only prior to or following the activity. 4-Supervision or Touching Assistance-helper provides verbal cues and/or touching/steadying and/or contact guard assistance as patient completes activity. Assistance may be provided throughout the activity or intermittently. 3-Partial/Moderate Assistance-helper does LESS THAN HALF the effort. [place] lifts, holds or supports trunk or limbs, but provides less than half the effort. 2-Substantial/Maximal Assistance-helper does MORE THAN HALF the effort. [place] lifts or holds trunk or limbs and provides more than half the effort. 1-Hwcabzhyc-dksjlv does ALL the effort. Patient does none of the effort to complete the activity. Or, the assistance of 2 or more helpers is required for the patient to complete the activity. If activity was not attempted, code reason: 7-Patient Refused. 9-Not Applicable-not attempted and the patient did not perform the activity before the current illness, exacerbation or injury. 10-Not Attempted due to Environmental Limitations-(lack of equipment, weather restraints, etc.). 88-Not Attempted due to Medical Conditions or Safety Concerns. Bed Mobility: 6 Transfers (B,C,W/C): 6 Gait: 6 Indoor Mobility (Ambulation): Independent Prior Devices Use: None PT Evaluation-Current Subjective Patient agrees to therapy Objective Patient Orientation: Person, Time, Situation Attachments: Oxygen, IV ROM/Strength ROM Lower Extremities bilateral LE WFL Strength Lower Extremities 3+/5 grossly bilateral LE all planes Integumentary/Posture Integumentary refer to nursing notes Bowel Incontinence: No Bladder Incontinence: No Posture WFL Neuromuscular (Tone, Coordination, Reflexes) grossly intact Sensory Vision: Functional Hearing: Functional Transfers Lying to Sitting/Side of Bed(Q: 6 Sit to Stand (QC): 4 Chair/Jto-sy-Znhkw Xfer(QC): 4 Gait Mode of Locomotion: Walk Anticipated Mode of Locomotion: Walk Walk 10 feet (QC): 4 Walk 50 ft with 2 Turns(QC): 4 Distance: 100' Gait Assistive Device: FWW Comments/Gait Description CGA for safety/increase SOA with minimal activity Balance Sitting Static: Normal Sitting Dynamic: Normal Standing Static: Fair Standing Dynamic: Fair Assessment/Needs Patient will benefit from short term skilled PT to address functional strength and mobility to improve current LOF to safely return to home at maximum LOF. 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 Professor Goals Half-Way Goals PT Half-Way Goals Time Frame: Aug 01, 2022 Roll Left & Right (QC): 6 Sit to Lying (QC): 6 Lying-Sitting on Side/Bed(QC): 6 Sit to Stand (QC): 6 Chair/Kot-qx-Osaok Xfer(QC): 6 Toilet Transfer (QC): 6 Walk 10 feet (QC): 5 Walk 50ft with 2 Turns (QC): 5 Walk 150 ft (QC): 5 PT Plan Problem List Problem List: Activity Tolerance, Functional Strength, Safety, Balance, Gait, Transfer Treatment/Plan Treatment Plan: Continue Plan of Care Treatment Plan: Education, Functional Activity Renée, Functional Strength, Gait, Safety, Therapeutic Exercise, Transfers Treatment Duration: Aug 01, 2022 Frequency: 6 times per week Estimated Hrs Per Day: .25 hour per day Patient and/or Family Agrees t: Yes Time Time In: 1316 Time Out: 1330 DATE: Jul 16, 2022 Total Billed Treatment Time: 14 [facility] T[facility] WHITT PT Jul 16, 2022 14:00
--- NOTE | 2022-07-16 15:18 | Occupational Therapy Eval ---
OT Evaluation-General/PLF Medical Diagnosis Admission Date July 13, 2022 at 12:51 Medical Diagnosis: respiratory failure Onset Date: July 13, 2022 Therapy Diagnosis Therapy Diagnosis: weakness Height/Weight Height (Feet): 6 Height (Inches): 4.00 Weight (Pounds): 154 Weight (Ounces): 2.0 Precautions Precautions/Isolations: Fall Prevention, Standard Precautions Weight Bear Status Weight Bearing Restriction: Full Weight Bearing Referral Physician: Radha Referral Reason: Activity Tolerance, Evaluation/Treatment Medical History Pertinent Medical History: Atrial Fib, Arthritis, CAD, COPD, HTN, Smoking Reviewed History: Yes Social History Home: Single Level Current Living Status: Spouse ADL-Prior Level of Function SCALE: Activities may be completed with or without assistive devices. 0-Pvpkmwarbi-bieurzb completes the activity by him/herself with no assistance from a helper. 5-Set-up or Clean-up Assistance-helper sets up or cleans up; patient completes activity. [place] assists only prior to or following the activity. 4-Supervision or Touching Assistance-helper provides verbal cues and/or touching/steadying and/or contact guard assistance as patient completes activity. Assistance may be provided throughout the activity or intermittently. 3-Partial/Moderate Assistance-helper does LESS THAN HALF the effort. [place] lifts, holds or supports trunk or limbs, but provides less than half the effort. 2-Substantial/Maximal Assistance-helper does MORE THAN HALF the effort. [place] lifts or holds trunk or limbs and provides more than half the effort. 7-Unjjwwjmo-iaxcmd does ALL the effort. Patient does none of the effort to complete the activity. Or, the assistance of 2 or more helpers is required for the patient to complete the activity. If activity was not attempted, code reason: 7-Patient Refused. 9-Not Applicable-not attempted and the patient did not perform the activity before the current illness, exacerbation or injury. 10-Not Attempted due to Environmental Limitations-(lack of equipment, weather restraints, etc.). 88-Not Attempted due to Medical Conditions or Safety Concerns. Self Care: Independent Functional Cognition: Independent Drive Self: Yes OT Current Status Subjective Requires motivation for participation, eased by need for linen and gown change. Mental Status/Objective Patient Orientation: Person, Place, Time, Situation Attachments: IV, Oxygen, Telemetry Current Upper Extremity ROM BUE ROM WFLS Upper Extremity Strength +3/5, low endurance level does not sustain strength w/ activity ADL-Treatment Eating (QC): 6 Oral Hygiene (QC): 5 Shower/Bathe Self (QC): 7 Upper Body Dressing (QC): 4 Lower Body Dressing (QC): 4 On/Off Footwear (QC): 4 Toileting Hygiene (QC): 4 Education OT Patient Education: Modified ADL techniques, Progress toward Goal/Update tx p manasa, Purpose of tx/functional activities, Reviewed precautions, Rehab process, Safety issues, Transfer techniques, Use of adapted equipment Teaching Recipient: Patient Teaching Methods: Demonstration, Discussion Response to Teaching: Reinforcement 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 2=Patient will verbalize/demonstrate understanding of assistive devices/modifications for ADL. 3=Patient will improve strength/tolerance for activity to enable patient to perform ADL's. OT Education/Plan Problem List/Assessment Assessment: Decreased Activ Tolerance, Impaired Coordination, Impaired Funct Balance, Impaired Self-Care Skills Discharge Recommendations Plan/Recommendations: Continue POC Treatment Plan/Plan of Care Treatment,Training & Education: Yes Patient would benefit from OT for education, treatment and training to promote independence in ADL's, mobility, safety and/or upper extremity function for ADL's. Plan of Care: ADL Retraining, Functional Mobility, Group Exercise/Act as Ind, UE Funct Exercise/Act Treatment Duration: Jul 25, 2022 Frequency: 3 times per week (3-5 times per week) Estimated Hrs Per Day: .25 hour per day Agreement: Yes Rehab Potential: Guarded Time Start Time: 14:16 Stop Time: 14:31 DATE: Jul 16, 2022 Total Time Billed (hr/min): 15 Billed Treatment Time EVM 15 min SARAH CARTAGENA OT Jul 16, 2022 15:18
[2022-07-16 15:20] VITALS: BP 138/63
[2022-07-16] MEDS: HYPOCHLOROUS ACID/NaCl (VASHE) 250 ML IR SCH ×2 (15:37→20:26)
--- NOTE | 2022-07-16 15:50 | Wound Care Assessment ---
Wound Care Assessment Date Seen by Provider: Jul 16, 2022 Time Seen by Provider: 15:43 Chief Complaint R. calf ulcer HPI This pleasant 66 year old gentleman was admitted to hospital with COPD and acute respiratory failure. We are consulted today for a small, shallow ulcer to lateral calf present for 1 month. Patient notes this started with trauma from bumping area (he is on a blood thinner) and the "scab keeps coming off'. He does on labs had moderate PEM, mild anemia and a h/o CAD/CHF, tobaccoism, ETOH overuse/abuse. These will all delay his wound healing. No signs of wound infection today. If this fails to heal as outpatient, I would be happy to see him in follow up. Past Medical History: Admits Heart Disease PEM, anemia, COPD on continuous O2 as outpatient, ETOH daily (2-3 beers), history of CHF and atrial fibrillation, and tobaccoism Smoking Status: Current Everyday Smoker Recreational Drug Use: No Alcohol Use: Regular Use (2-3 beers/d) Exam Vital Signs Date Time Temp Pulse Resp B/P (MAP) Pulse Ox O2 Delivery O2 Flow Rate FiO2 07/16/22 14:30 36.8 84 18 146/80 (102) Nasal Cannula 4.00 07/16/22 14:27 97 07/16/22 08:00 35 Capillary Refill : Less Than 3 Seconds General Appearance: WD/WN, no apparent distress HEENT: other (normal hearing) Neck: full range of motion Cardiovascular: no edema Respiratory: no respiratory distress, no accessory muscle use, other (continuous O2) Extremities: no pedal edema Neurologic/Psychiatric: alert, normal mood/affect, oriented x 3 Skin: other (numerous bruises to UE and LE) Wound assessment: 1.5x1x0.1cm. The epitheliazation is medium. There is no tunneling or undermining. Drainage is large and serosanguinous. Granulation is medium and pink, necrotic is small and slough. Margins are flat Results Laboratory Tests 07/16/22 04:29: White Blood Count 11.2H, Red Blood Count 3.06L, Hemoglobin 10.7L, Hematocrit 32L , Mean Corpuscular Volume 104H, Mean Corpuscular Hemoglobin 35H, Mean Corpuscular Hemoglobin Concent 34, Red Cell Distribution Width 13.5, Platelet Count 108L, Mean Platelet Volume 10.7, Immature Granulocyte % (Auto) 1, Neutrophils (%) (Auto) 86H, Lymphocytes (%) (Auto) 8L, Monocytes (%) (Auto) 5, Eosinophils (%) (Auto) 1, Basophils (%) (Auto) 0, Neutrophils # (Auto) 9.6H, Lymphocytes # (Auto) 0.9L, Monocytes # (Auto) 0.6, Eosinophils # (Auto) 0.1, Basophils # (Auto) 0.0, Immature Granulocyte # (Auto) 0.1, Percent Immature Platelet Fraction 7.2, Sodium Level 132L, Potassium Level 4.0, Chloride Level 100, Carbon Dioxide Level 24, Anion Gap 8, Blood Urea Nitrogen 9, Creatinine 0.72, Estimat Glomerular Filtration Rate 101, BUN/Creatinine Ratio 13, Glucose Level 106H, Calcium Level 8.6, Corrected Calcium 9.5, Magnesium Level 1.7, Total Bilirubin 0.9, Aspartate Amino Transf (AST/SGOT) 25, Alanine Aminotransferase (ALT/SGPT) 22, Alkaline Phosphatase 62, Total Protein 5.5L, Albumin 2.9L, Digoxin Level 0.68L Microbiology 07/15/22 Gram Stain - Final, Resulted 07/15/22 Sputum Culture, Resulted Pending 07/13/22 Blood Culture - Preliminary, Resulted No growth Microbiology 07/15/22 Gram Stain - Final, Resulted 07/15/22 Sputum Culture, Resulted Pending Assessment/Plan/Dx Assessment: 1. Non-pressure ulcer right calf (full thickness) 2. COPD exacerbation 3. PEM moderate 4. Anemia 5. ETOH overuse 6. Tobaccoism 7. h/o CHF/atrial fibrillation Plan: 1. Cleanse daily with Vashe. Apply silver alginate hydrofiber to wound bed. Secure with Allevyn bordered foam dressing and change daily 2. Defer to primary team 3. Defer to primary team 4. Defer to primary team 5. Cessation advised 6. Cessation advised 7. If he fails to heal, outpatient PAD workup would be indicated RENE WILSON MD Jul 16, 2022 15:50
[2022-07-16] MEDS: RIVAROXABAN 20 MG TABLET (XARELTO) PO SCH (18:10)
[2022-07-16 19:20] VITALS: BP 140/81
[2022-07-16] MEDS: ACETAMINOPHEN 325 MG TABLET PO PRN (20:27)
[2022-07-16 23:54] VITALS: BP 132/65
[2022-07-17] MEDS: MEROPENEM 500 MG in NS (IVPB) 100 ML IV SCH ×5 (00:25→23:34)
[2022-07-17] MEDS: RT-ALBUTEROL/IPRATROPIUM 3 ML (DUONEB) VIAL INH SCH ×6 (02:36→21:19)
[2022-07-17 03:21] VITALS: BP 149/67
[2022-07-17] MEDS: MULTIVIT W/MINERALS TAB (THERAGRAN M) PO SCH (05:52)
[2022-07-17] MEDS: THIAMINE 100 MG (VITAMIN B-1) TAB PO SCH (05:52)
[2022-07-17 06:19] LABS: BASOPHILS % (AUTO) 0 % (0-10); EOSINOPHILS # (AUTO) 0.1 10^3/uL (0.0-0.3); EOSINOPHILS % (AUTO) 2 % (0-10); HEMATOCRIT 35 % (40-54); LYMPHOCYTES # (AUTO) 0.8 10^3/uL (1.0-4.0); LYMPHOCYTES % (AUTO) 11 % (12-44); MEAN CORPUSCULAR HEMOGLOBIN 35 pg (25-34); MEAN CORPUSCULAR HGB CONC 34 g/dL (32-36); MEAN CORPUSCULAR VOLUME 103 fL (80-99); MEAN PLATELET VOLUME 10.8 fL (9.0-12.2); MONOCYTES # (AUTO) 0.8 10^3/uL (0.0-1.0); MONOCYTES % (AUTO) 9 % (0-12); NEUTROPHILS # (AUTO) 6.2 10^3/uL (1.8-7.8); NEUTROPHILS % (AUTO) 78 % (42-75); PLATELET COUNT 116 10^3/uL (130-400)
[2022-07-17 06:33] LABS: ALBUMIN 3.1 GM/DL (3.2-4.5); BILIRUBIN,TOTAL 1.1 MG/DL (0.1-1.0); CALCIUM 8.9 MG/DL (8.5-10.1); CREATININE SERUM 0.67 MG/DL (0.60-1.30); MAGNESIUM 2.1 MG/DL (1.6-2.4); POTASSIUM 3.8 MMOL/L (3.6-5.0)
[2022-07-17 08:02] VITALS: BP 152/66
--- NOTE | 2022-07-17 08:14 | Physical Therapy Daily Note ---
PT Daily Note-Current Subjective Patient agrees to PT. Currently on BiPap and switched to 6L O2 NC/HF Pain Section J - Health Conditions 1. Rarely or not at all 2. Occasionally 3. Frequently 4. Almost constantly 8. Unable to answer Pain Effect on Sleep: 1 Pain Interference with Therapy: 1 Pain Interference w/Day-to-Day: 1 Mental Status Attachments: Oxygen Transfers SCALE: Activities may be completed with or without assistive devices. 7-Ubtaaipvpt-thgsvtz completes the activity by him/herself with no assistance from a helper. 5-Set-up or Clean-up Assistance-helper sets up or cleans up; patient completes activity. [place] assists only prior to or following the activity. 4-Supervision or Touching Assistance-helper provides verbal cues and/or touching/steadying and/or contact guard assistance as patient completes activity . Assistance may be provided throughout the activity or intermittently. 3-Partial/Moderate Assistance-helper does LESS THAN HALF the effort. [place] lifts, holds or supports trunk or limbs, but provides less than half the effort. 2-Substantial/Maximal Assistance-helper does MORE THAN HALF the effort. [place] lifts or holds trunk or limbs and provides more than half the effort. 6-Jaqurfsgc-onueii does ALL the effort. Patient does none of the effort to complete the activity. Or, the assistance of 2 or more helpers is required for the patient to complete the activity. If activity was not attempted, code reason: 7-Patient Refused. 9-Not Applicable-not attempted and the patient did not perform the activity before the current illness, exacerbation or injury. 10-Not Attempted due to Environmental Limitations-(lack of equipment, weather restraints, etc.). 88-Not Attempted due to Medical Conditions or Safety Concerns. Lying to Sitting/Side of Bed(Q: 6 Sit to Stand (QC): 4 Gait Training Distance: 250' Walk 10 feet (QC): 4 Walk 50 ft with 2 Turns(QC): 4 Walk 150 ft (QC): 4 Gait Assistive Device: FWW 2 standing recovery periods due to SOA Assessment Patient has increase SOA with minimal activity and utilize FWW for energy conservation. PT to increase ambulation distance to address pulmonary function. Patient requires 6L NH HF. PT Jewelry Racker Goals Jewelry Racker Goals PT Group Home Goals Time Frame: Aug 01, 2022 Roll Left & Right (QC): 6 Sit to Lying (QC): 6 Lying-Sitting on Side/Bed(QC): 6 Sit to Stand (QC): 6 Chair/Fcq-ap-Pdnpj Xfer(QC): 6 Toilet Transfer (QC): 6 Walk 10 feet (QC): 5 Walk 50ft with 2 Turns (QC): 5 Walk 150 ft (QC): 5 PT Plan Treatment/Plan Treatment Plan: Continue Plan of Care Treatment Plan: Education, Functional Activity Renée, Functional Strength, Gait, Safety, Therapeutic Exercise, Transfers Treatment Duration: Aug 01, 2022 Frequency: 6 times per week Estimated Hrs Per Day: .25 hour per day Patient and/or Family Agrees t: Yes Time Time In: 754 Time Out: 804 DATE: Jul 17, 2022 Total Billed Treatment Time: 10 Total Billed Treatment 1 visit FA 10 min TOMMY WHITT PT Jul 17, 2022 08:14
--- NOTE | 2022-07-17 08:32 | Progress Note ---
Subjective Date Seen by a Provider: Jul 17, 2022 Time Seen by a Provider: 11:00 Subjective/Events-last exam No major changes Still weak O2 maintained Sputum culture noted No falls BM+ Placed NC in mouth since he is a mouth breather and that is what he does at home Review of Systems General: Fatigue, Malaise Pulmonary: Dyspnea, Cough Objective Exam Last Set of Vital Signs Vital Signs Date Time Temp Pulse Resp B/P (MAP) Pulse Ox O2 Delivery O2 Flow Rate FiO2 07/17/22 08:02 37.1 88 20 152/66 (94) 92 Nasal Cannula 6.00 07/16/22 08:00 35 Capillary Refill : Less Than 3 Seconds I&O Intake and Output 07/17/22 00:00 Intake Total 1660 ml Output Total 2955 ml Balance -1295 ml Intake Oral 1460 ml IV Total 200 ml Output Urine Total 2955 ml # Voids 1 General: Alert, Oriented X3, Cooperative, No Acute Distress Lungs: Other (diminished) Heart: Regular Rate Psych/Mental Status: Mental Status NL, Mood NL Results Lab Laboratory Tests 07/17/22 05:36: White Blood Count 8.0, Red Blood Count 3.42L, Hemoglobin 12.0L, Hematocrit 35L, Mean Corpuscular Volume 103H, Mean Corpuscular Hemoglobin 35H, Mean Corpuscular Hemoglobin Concent 34, Red Cell Distribution Width 13.2, Platelet Count 116L, Mean Platelet Volume 10.8, Immature Granulocyte % (Auto) 0, Neutrophils (%) (Auto) 78H, Lymphocytes (%) (Auto) 11L, Monocytes (%) (Auto) 9, Eosinophils (%) (Auto) 2, Basophils (%) (Auto) 0, Neutrophils # (Auto) 6.2, Lymphocytes # (Auto) 0.8L, Monocytes # (Auto) 0.8, Eosinophils # (Auto) 0.1, Basophils # (Auto) 0.0, Immature Granulocyte # (Auto) 0.0, Sodium Level 138, Potassium Level 3.8, Chloride Level 102, Carbon Dioxide Level 27, Anion Gap 9, Blood Urea Nitrogen 8, Creatinine 0.67, Estimat Glomerular Filtration Rate 103, BUN/Creatinine Ratio 12, Glucose Level 109H, Calcium Level 8.9, Corrected Calcium 9.6, Magnesium Level 2.1, Total Bilirubin 1.1H, Aspartate Amino Transf (AST/SGOT) 32, Alanine Aminotransferase (ALT/SGPT) 26, Alkaline Phosphatase 74, Total Protein 6.0L, Albumin 3.1L Microbiology 07/15/22 Gram Stain - Final, Resulted 07/15/22 Sputum Culture, Resulted Pending 07/13/22 Blood Culture - Preliminary, Resulted No growth Assessment/Plan Assessment/Plan Assess & Plan/Chief Complaint Assessment: Acute on chronic respiratory failure with hypoxemia and hypercapnia requiring BiPAP now resolved Sepsis PNA 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 Plan: PT OT RVR management appreciated IV abx Monitor closely OAC STAR KUMARI DO Jul 17, 2022 08:31
[2022-07-17] MEDS: HYPOCHLOROUS ACID/NaCl (VASHE) 250 ML IR SCH ×2 (10:02→21:18)
[2022-07-17] MEDS: FOLIC ACID 1 MG TAB PO SCH (10:03)
[2022-07-17] MEDS: DOCUSATE SODIUM 100 MG (COLACE) CAP PO SCH ×2 (10:03→21:17)
[2022-07-17] MEDS: DIGOXIN 0.125 MG (LANOXIN) TAB PO SCH (10:03)
[2022-07-17] MEDS: AtorvaSTATin TABLET 10 MG TABLET PO SCH (10:03)
[2022-07-17] MEDS: ASPIRIN E.C. 81 MG (ECOTRIN) TAB PO SCH (10:03)
[2022-07-17] MEDS: MAGNESIUM OXIDE (MAG-OX)400 MG TAB PO SCH ×2 (10:11→21:17)
[2022-07-17] MEDS: PANTOPRAZOLE 40 MG (PROTONIX) TAB PO SCH (10:11)
[2022-07-17] MEDS: SENNOSIDES 8.6 MG (SENOKOT) TAB PO SCH ×2 (10:11→21:17)
[2022-07-17] MEDS: meTOprolol TARTRATE 25 MG (LOPRESSOR) TABLET PO SCH ×2 (10:11→21:17)
[2022-07-17] MEDS: UMECLIDINIUM BROMIDE (INCRUSE ELLIPTA) 7'S IH SCH (11:09)
[2022-07-17] MEDS: FLUTICASONE/VILANTEROL 200 MCG 14'S (BREO) IH SCH (11:09)
[2022-07-17 12:33] VITALS: BP 128/72
--- NOTE | 2022-07-17 13:07 | Occupational Ther Daily Note ---
OT Current Status-Daily Note Subjective Resting in bed, agreeable to OT Mental Status/Objective Patient Orientation: Person, Place, Time, Situation ADL-Treatment Therapy Code Descriptions/Definitions Functional [place] Measure: 0=Not Assessed/NA 4=Minimal Assistance 1=Total Assistance 5=Supervision or Setup 2=Maximal Assistance 6=Modified [place] 3=Moderate Assistance 7=Complete IndependenceSCALE: Activities may be completed with or without assistive devices. 7-Cwkizwciti-uwilaeo completes the activity by him/herself with no assistance from a helper. 5-Set-up or Clean-up Assistance-helper sets up or cleans up; patient completes activity. [place] assists only prior to or following the activity. 4-Supervision or Touching Assistance-helper provides verbal cues and/or touching/steadying and/or contact guard assistance as patient completes activity. Assistance may be provided throughout the activity or intermittently. 3-Partial/Moderate Assistance-helper does LESS THAN HALF the effort. [place] lifts, holds or supports trunk or limbs, but provides less than half the effort. 2-Substantial/Maximal Assistance-helper does MORE THAN HALF the effort. [place] lifts or holds trunk or limbs and provides more than half the effort. 6-Hthgvtkqe-wbvxwx does ALL the effort. Patient does none of the effort to complete the activity. Or, the assistance of 2 or more helpers is required for the patient to complete the activity. If activity was not attempted, code reason: 7-Patient Refused. 9-Not Applicable-not attempted and the patient did not perform the activity before the current illness, exacerbation or injury. 10-Not Attempted due to Environmental Limitations-(lack of equipment, weather restraints, etc.). 88-Not Attempted due to Medical Conditions or Safety Concerns. Eating (QC): 6 Oral Hygiene (QC): 5 Shower/Bathe Self (QC): 7 Upper Body Dressing (QC): 5 Lower Body Dressing (QC): 4 On/Off Footwear: 5 Toileting Hygiene (QC): 4 Toilet Transfer (QC): 4 Gait speed improved and safe route planning improved, improved safe use of FWW Education OT Patient Education: Correct positioning, Modified ADL techniques, Progress toward Goal/Update tx plan, Purpose of tx/functional activities, Reviewed precautions, Rehab process, Safety issues, Transfer techniques Teaching Recipient: Patient Teaching Methods: Demonstration Response to Teaching: Verbalize Understanding, Reinforcement Needed OT Floral Artist Goals Floral Artist Goals Eating (QC): 6 Oral Hygiene (QC): 6 Toileting Hygiene (QC): 6 Shower/Bathe Self (QC): 6 Upper Body Dressing (QC): 6 Lower Body Dressing (QC): 6 On/Off Footwear (QC): 6 1=Demonstrate adherence to instructed precautions during ADL tasks. 2=Patient will verbalize/demonstrate understanding of assistive devices/modifications for ADL. 3=Patient will improve strength/tolerance for activity to enable patient to perform ADL's. OT Education/Plan Problem List/Assessment Assessment: Decreased Activ Tolerance, Impaired Coordination, Impaired Self- Care Skills Discharge Recommendations Plan/Recommendations: Continue POC Treatment Plan/Plan of Care Patient would benefit from OT for education, treatment and training to promote independence in ADL's, mobility, safety and/or upper extremity function for ADL's. Plan of Care: ADL Retraining, Functional Mobility, Group Exercise/Act as Ind, U E Funct Exercise/Act Treatment Duration: Jul 25, 2022 Frequency: 3 times per week (3-5 times per week) Estimated Hrs Per Day: .25 hour per day Agreement: Yes Rehab Potential: Guarded Time Start Time: 10:05 Stop Time: 10:15 DATE: Jul 17, 2022 Total Time Billed (hr/min): 10 Billed Treatment Time ADL 15 min SARAH CARTAGENA OT Jul 17, 2022 13:07
[2022-07-17 16:00] VITALS: BP 136/70
[2022-07-17] MEDS: RIVAROXABAN 20 MG TABLET (XARELTO) PO SCH (17:48)
[2022-07-17 19:10] VITALS: BP 152/78
[2022-07-17] MEDS: LORazepam 0.5 MG (ATIVAN) TABLET PO PRN (21:34)
[2022-07-17 23:32] VITALS: BP 147/76
[2022-07-18] MEDS: RT-ALBUTEROL/IPRATROPIUM 3 ML (DUONEB) VIAL INH SCH ×4 (02:21→14:22)
[2022-07-18 04:16] VITALS: BP 115/59
[2022-07-18] MEDS ORDERED: cefTRIAXone IV/IM 1,000 MG in NS (IVPB) 50 ML IV SCH (06:00)
[2022-07-18 06:25] VITALS: BP 122/72
[2022-07-18 06:25] LABS: BASOPHILS % (AUTO) 1 % (0-10); EOSINOPHILS # (AUTO) 0.2 10^3/uL (0.0-0.3); EOSINOPHILS % (AUTO) 2 % (0-10); HEMATOCRIT 35 % (40-54); HEMOGLOBIN 11.8 g/dL (13.3-17.7); LYMPHOCYTES # (AUTO) 1.1 10^3/uL (1.0-4.0); LYMPHOCYTES % (AUTO) 12 % (12-44); MEAN CORPUSCULAR HEMOGLOBIN 35 pg (25-34); MEAN CORPUSCULAR HGB CONC 33 g/dL (32-36); MEAN CORPUSCULAR VOLUME 104 fL (80-99); MEAN PLATELET VOLUME 10.7 fL (9.0-12.2); MONOCYTES # (AUTO) 0.9 10^3/uL (0.0-1.0); MONOCYTES % (AUTO) 10 % (0-12); NEUTROPHILS # (AUTO) 6.4 10^3/uL (1.8-7.8); NEUTROPHILS % (AUTO) 74 % (42-75); PLATELET COUNT 162 10^3/uL (130-400); WHITE BLOOD COUNT 8.7 10^3/uL (4.3-11.0)
[2022-07-18] MEDS: MULTIVIT W/MINERALS TAB (THERAGRAN M) PO SCH (06:27)
[2022-07-18] MEDS: THIAMINE 100 MG (VITAMIN B-1) TAB PO SCH (06:27)
--- NOTE | 2022-07-18 06:27 | Progress Note ---
Subjective Date Seen by a Provider: Jul 18, 2022 Time Seen by a Provider: 11:00 Objective Exam Last Set of Vital Signs Vital Signs Date Time Temp Pulse Resp B/P (MAP) Pulse Ox O2 Delivery O2 Flow Rate FiO2 07/18/22 06:00 80 26 96 50.00 07/18/22 04:16 36.5 115/59 (77) NIV Bilevel 07/16/22 08:00 35 Capillary Refill : Less Than 3 Seconds I&O Intake and Output 07/18/22 00:00 Intake Total 2040 ml Output Total 2200 ml Balance -160 ml Intake Oral 1940 ml IV Total 100 ml Output Urine Total 2200 ml Results Lab Laboratory Tests 07/18/22 05:42: Microbiology 07/15/22 Gram Stain - Final, Complete 07/15/22 Sputum Culture - Final, Complete Klebsiella pneumoniae Proteus mirabilis 07/13/22 Blood Culture - Preliminary, Resulted No growth Assessment/Plan Assessment/Plan Assess & Plan/Chief Complaint Assessment: Acute on chronic respiratory failure with hypoxemia and hypercapnia requiring BiPAP now resolved Sepsis PNA 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 Plan: PT OT RVR management appreciated IV abx Monitor closely OAC STAR KUMARI DO Jul 18, 2022 06:27
[2022-07-18 06:35] LABS: ALBUMIN 3.1 GM/DL (3.2-4.5)
[2022-07-18 06:36] LABS: CALCIUM 9.5 MG/DL (8.5-10.1)
[2022-07-18 06:38] LABS: TOTAL PROTEIN 6.2 GM/DL (6.4-8.2)
[2022-07-18 06:39] LABS: BILIRUBIN,TOTAL 0.8 MG/DL (0.1-1.0)
[2022-07-18 06:41] LABS: CREATININE SERUM 0.69 MG/DL (0.60-1.30)
[2022-07-18 06:44] LABS: MAGNESIUM 1.7 MG/DL (1.6-2.4)
[2022-07-18 08:19] VITALS: BP 112/67
[2022-07-18] MEDS: PANTOPRAZOLE 40 MG (PROTONIX) TAB PO SCH (09:06)
[2022-07-18] MEDS: FOLIC ACID 1 MG TAB PO SCH (09:06)
[2022-07-18] MEDS: ASPIRIN E.C. 81 MG (ECOTRIN) TAB PO SCH (09:06)
[2022-07-18] MEDS: meTOprolol TARTRATE 25 MG (LOPRESSOR) TABLET PO SCH (09:06)
[2022-07-18] MEDS: MAGNESIUM OXIDE (MAG-OX)400 MG TAB PO SCH (09:06)
[2022-07-18] MEDS: AtorvaSTATin TABLET 10 MG TABLET PO SCH (09:06)
[2022-07-18] MEDS: DIGOXIN 0.125 MG (LANOXIN) TAB PO SCH (09:06)
[2022-07-18] MEDS: SENNOSIDES 8.6 MG (SENOKOT) TAB PO SCH (09:07)
[2022-07-18] MEDS: DOCUSATE SODIUM 100 MG (COLACE) CAP PO SCH (09:07)
[2022-07-18] MEDS: HYPOCHLOROUS ACID/NaCl (VASHE) 250 ML IR SCH (09:07)
[2022-07-18] MEDS: UMECLIDINIUM BROMIDE (INCRUSE ELLIPTA) 7'S IH SCH (09:28)
[2022-07-18] MEDS: FLUTICASONE/VILANTEROL 200 MCG 14'S (BREO) IH SCH (09:28)
--- NOTE | 2022-07-18 11:27 | Physical Therapy Daily Note ---
PT Daily Note-Current Subjective Pt in bed, agreeable. Denies pain. Pain Section J - Health Conditions 1. Rarely or not at all 2. Occasionally 3. Frequently 4. Almost constantly 8. Unable to answer Pain Effect on Sleep: 1 Pain Interference with Therapy: 1 Pain Interference w/Day-to-Day: 1 Mental Status Patient Orientation: Person, Place, Time, Situation Attachments: Oxygen Transfers SCALE: Activities may be completed with or without assistive devices. 5-Vfwyybetet-pkimnxy completes the activity by him/herself with no assistance from a helper. 5-Set-up or Clean-up Assistance-helper sets up or cleans up; patient completes activity. [place] assists only prior to or following the activity. 4-Supervision or Touching Assistance-helper provides verbal cues and/or touching/steadying and/or contact guard assistance as patient completes activity. Assistance may be provided throughout the activity or intermittently. 3-Partial/Moderate Assistance-helper does LESS THAN HALF the effort. [place] lifts, holds or supports trunk or limbs, but provides less than half the effort. 2-Substantial/Maximal Assistance-helper does MORE THAN HALF the effort. [place] lifts or holds trunk or limbs and provides more than half the effort. 6-Cbnflyvln-kuuelt does ALL the effort. Patient does none of the effort to complete the activity. Or, the assistance of 2 or more helpers is required for the patient to complete the activity. If activity was not attempted, code reason: 7-Patient Refused. 9-Not Applicable-not attempted and the patient did not perform the activity before the current illness, exacerbation or injury. 10-Not Attempted due to Environmental Limitations-(lack of equipment, weather restraints, etc.). 88-Not Attempted due to Medical Conditions or Safety Concerns. Roll Left & Right (QC): 6 Sit to Lying (QC): 6 Lying to Sitting/Side of Bed(Q: 6 Sit to Stand (QC): 5 CGA x 1 with FWW Weight Bearing Right Lower Extremity: Right Full Weight Bearing Left Lower Extremity: Left Full Weight Bearing Gait Training Does the Patient Walk?: Yes Distance: 125 Walk 10 feet (QC): 5 Walk 50 ft with 2 Turns(QC): 5 Walk 150 ft (QC): 5 Gait Persons Needed: 1 Gait Assistive Device: FWW Pt ambulated 125' x 1, 50' x 1 with FWW with SBA x1. O2 sats on 6L at 85%, Pt requested seated rest. O2 sats recovered to >90% with extended seated rest (~2 minutes) and cues for pursed lip breathing. Wheelchair Training Does the Pt Use a Wheelchair?: No Type of Wheelchair: N/A Treatments Gait with FWW. Returned to bed with O2 in situ, all needs met. Assessment Current Status: Fair Progress Pt tolerated fair-poor. Desats with limited activity and requires extended time to recover. PT Mechanical Intern Goals Mechanical Intern Goals PT Mechanical Intern Goals Time Frame: Aug 01, 2022 Roll Left & Right (QC): 6 Sit to Lying (QC): 6 Lying-Sitting on Side/Bed(QC): 6 Sit to Stand (QC): 6 Chair/Zzn-sf-Swhfb Xfer(QC): 6 Toilet Transfer (QC): 6 Walk 10 feet (QC): 5 Walk 50ft with 2 Turns (QC): 5 Walk 150 ft (QC): 5 PT Plan Problem List Problem List: Activity Tolerance, Functional Strength, Safety, Balance, Gait, Transfer Treatment/Plan Treatment Plan: Continue Plan of Care Treatment Plan: Education, Functional Activity Renée, Functional Strength, Gait, Safety, Therapeutic Exercise, Transfers Treatment Duration: Aug 01, 2022 Frequency: 6 times per week Estimated Hrs Per Day: .25 hour per day Patient and/or Family Agrees t: Yes Time Time In: 1040 Time Out: 1104 DATE: Jul 18, 2022 Total Billed Treatment Time: 24 Total Billed Treatment 1, FA x 24' JOSH ALMARAZ DPT Jul 18, 2022 11:27
[2022-07-18] MEDS ORDERED: IPRA3AMP31 INH (11:44)
[2022-07-18] MEDS ORDERED: HYDR-3584 PO (11:44)
[2022-07-18] MEDS ORDERED: OXC5T PO (11:44)
[2022-07-18] MEDS ORDERED: LORA-404 PO (11:44)
[2022-07-18] MEDS ORDERED: MULT-1137 PO (11:44)
[2022-07-18] MEDS ORDERED: METO-333 PO (11:44)
[2022-07-18] MEDS ORDERED: FOLI1TAB33 PO (11:44)
[2022-07-18] MEDS ORDERED: MGX400T PO (11:44)
[2022-07-18] MEDS ORDERED: ASPI-1238 PO (11:44)
[2022-07-18] MEDS ORDERED: CEFD300C3 PO (11:44)
--- NOTE | 2022-07-18 11:47 | D/C HH Face to Face Order ---
D/C Face to Face Orders Reconcile Patient Problems Problems Reviewed?: Yes Instructions for Patient Via [employer], Patient Instructions/FollowUp: PCP 1 week Physician to follow Patient: [facility] Discharge Diet for Home: No Restrictions Patient Problems: CHF AF COPD PNA Patient Data-Allergies,Ht & Wt Patient Allergies: Coded Allergies: No Known Drug Allergies (Unverified , 03/17/12) Height (Feet): 6 Height (Inches): 4.00 Weight (Pounds): 154 Weight (Ounces): 2.0 Home Health Need/Face to Face Date of Face to Face: Jul 18, 2022 Clinical Findings: Generalized weakness and fatigue, Instability, Muscle weakness, Shortness of breath I have seen Pt eyan-ax-wsmi: Yes Discharged To: Home Diagnosis/Conditions: COPD Patient is Homebound due to: Muscle weakness, Shortness of breath/distress Homebound Status Due to the above stated illness, injury or surgical procedure (medical condition or diagnosis) and associated clinical findings, the patient is homebound because of his/her inability to leave home except with aid of a supportive device and/or person AND leaving the home requires a considerable and taxing effort or is medically contraindicated. Pt req the following assistanc: Walker Home Health Nursing Orders Home Health Services Order: Nursing Services, Log Cutter-Evaluate & Treat, Physical Therapy-Evaluate & Treat Home Health Infusion Therapy Line Start Date: July 13, 2022 Certify Stmt I certify that this patient is under my care and that I, a nurse practitioner or a physician; a executive marketing assistant working with me, had a face to face encounter that -me ets the physician face to face encounter requirements with this patient as dated. STAR KUMARI DO Jul 18, 2022 11:47
--- NOTE | 2022-07-18 11:47 | Discharge Summary ---
Diagnosis/Chief Complaint Date of Admission July 13, 2022 at 12:51 Date of Discharge Discharge Date: Jul 18, 2022 Discharge Diagnosis Assessment: Acute on chronic respiratory failure with hypoxemia and hypercapnia requiring BiPAP now resolved Sepsis PNA HAP type h/o Aspergillus infection of the lung Permanent atrial fibrillation now with RVR Acute on chronic heart failure with preserved ejection fraction (HFpEF) Primary hypertension Coronary artery disease without angina pectoris Pulmonary hypertension Mixed hyperlipidemia Chronic obstructive pulmonary disease with exacerbation Cigarette smoker Plan: Move to 4th floor RVR management appreciated IV abx IV steroids Monitor closely OAC Discharge Summary Discharge Physical Examination Allergies: Coded Allergies: No Known Drug Allergies (Unverified , 03/17/12) Vitals & I&Os Vital Signs Date Time Temp Pulse Resp B/P (MAP) Pulse Ox O2 Delivery O2 Flow Rate FiO2 07/18/22 14:22 95 High Flow N/C 6.00 07/18/22 13:00 60 07/18/22 12:37 37.2 19 141/83 (102) 07/16/22 08:00 35 General Appearance: Alert, Oriented X3, Cooperative Respiratory: Clear to Auscultation Cardiovascular: Regular Rate Psych/Mental Status: Mental Status NL Hospital Course Was the Problem List Reviewed?: Yes Hospital course: Patient had a lengthy hospital course which started with acute on chronic respiratory failure requiring BiPAP and ICU admission for IV antibiotics empirically with IV steroids. Alcohol withdrawal was treated with protocol. A-fib with RVR required multiple medication changes from cardiology. Baseline oxygen was maintained in the of his hospital course he was deemed stable for discharge and sputum culture returned with good coverage from Rocephin and that was transitioned to Omnicef to finish without therapy. Overall poor prognosis given his severe COPD and continued smoking and alcohol use. Labs (last 24 hrs) Laboratory Tests 07/13/22 11:42: White Blood Count 15.3H, Red Blood Count 4.19L, Hemoglobin 14.5, Hematocrit 41, Mean Corpuscular Volume 99, Mean Corpuscular Hemoglobin 35H, Mean Corpuscular Hemoglobin Concent 35, Red Cell Distribution Width 13.0, Platelet Count 145, Mean Platelet Volume 10.2, Immature Granulocyte % (Auto) 1, Neutrophils (%) (Auto) 89H, Lymphocytes (%) (Auto) 5L, Monocytes (%) (Auto) 4, Eosinophils (%) (Auto) 0, Basophils (%) (Auto) 0, Neutrophils # (Auto) 13.6H, Lymphocytes # (Auto) 0.8L, Monocytes # (Auto) 0.7, Eosinophils # (Auto) 0.0, Basophils # (Auto) 0.0, Immature Granulocyte # (Auto) 0.1, Neutrophils % (Manual) 91, Lymphocytes % (Manual) 4, Monocytes % (Manual) 1, Eosinophils % (Manual) 0, Basophils % (Manual) 0, Band Neutrophils 4, Percent Immature Platelet Fraction 7.4, Blood Morphology Comment NORMAL, Prothrombin Time 20.1H, INR Comment 1.7H, Activated Partial Thromboplast Time 31, Sodium Level 129L, Potassium Level 4.8, Chloride Level 95L, Carbon Dioxide Level 22, Anion Gap 12, Blood Urea Nitrogen 12, Creatinine 1.02, Estimat Glomerular Filtration Rate 81, BUN/Creatinine Ratio 12, Glucose Level 96, Calcium Level 9.0, Corrected Calcium 9.3, Magnesium Level 1.4L, Total Bilirubin 1.1H, Aspartate Amino Transf (AST/SGOT) 24, Alanine Aminotransferase (ALT/SGPT) 24, Alkaline Phosphatase 84, Troponin I 0.039H, B- Type Natriuretic Peptide 153.5H, Total Protein 6.4, Albumin 3.6 07/13/22 12:02: Lactic Acid Level 1.84 07/13/22 12:23: Blood Gas Puncture Site R Rad, Blood Gas Patient Temperature 37.5, Arterial Blood pH 7.34*L, Arterial Blood Partial Pressure CO2 51H, Arterial Blood Partial Pressure O2 125H, Arterial Blood HCO3 26, Arterial Blood Total CO2 27.9, Arterial Blood Oxygen Saturation 99, Arterial Blood Base Excess 1.3, Harris Test YES-POS, Blood Gas Ventilator Setting NO, Blood Gas Inspired Oxygen 80% 07/13/22 15:33: Glucometer 69L 07/13/22 19:51: Glucometer 126H 07/14/22 04:20: Blood Gas Puncture Site L RAD, Blood Gas Patient Temperature 36.1, Arterial Blood pH 7.44H, Arterial Blood Partial Pressure CO2 38, Arterial Blood Partial Pressure O2 77L, Arterial Blood HCO3 26, Arterial Blood Total CO2 26.8, Arterial Blood Oxygen Saturation 100, Arterial Blood Base Excess 1.6, Harris Test YES-POS, Blood Gas Ventilator Setting NO, Blood Gas Inspired Oxygen 30% 07/14/22 05:28: White Blood Count 16.9H, Red Blood Count 3.58L, Hemoglobin 12.4L, Hematocrit 37L , Mean Corpuscular Volume 103H, Mean Corpuscular Hemoglobin 35H, Mean Corpuscular Hemoglobin Concent 34, Red Cell Distribution Width 13.2, Platelet Count 111L, Mean Platelet Volume 10.3, Immature Granulocyte % (Auto) 1, Neutrophils (%) (Auto) 90H, Lymphocytes (%) (Auto) 5L, Monocytes (%) (Auto) 5, Eosinophils (%) (Auto) 0, Basophils (%) (Auto) 0, Neutrophils # (Auto) 15.1H, Lymphocytes # (Auto) 0.9L, Monocytes # (Auto) 0.8, Eosinophils # (Auto) 0.0, Basophils # (Auto) 0.0, Immature Granulocyte # (Auto) 0.1, Percent Immature Platelet Fraction 6.9, Sodium Level 138, Potassium Level 3.9, Chloride Level 102, Carbon Dioxide Level 25, Anion Gap 11, Blood Urea Nitrogen 12, Creatinine 0.93, Estimat Glomerular Filtration Rate 91, BUN/Creatinine Ratio 13, Glucose Level 121H, Calcium Level 9.0, Corrected Calcium 9.6, Phosphorus Level 2.4, Magnesium Level 1.7, Total Bilirubin 0.8, Aspartate Amino Transf (AST/SGOT) 17, Alanine Aminotransferase (ALT/SGPT) 16, Alkaline Phosphatase 63, Total Protein 5.8L, Albumin 3.2, Triglycerides Level 59, Cholesterol Level 110, LDL Cholesterol Direct 37, VLDL Cholesterol 12, HDL Cholesterol 57 07/14/22 10:38: Glucometer 136H 07/15/22 04:46: White Blood Count 13.2H, Red Blood Count 3.25L, Hemoglobin 11.4L, Hematocrit 33L , Mean Corpuscular Volume 102H, Mean Corpuscular Hemoglobin 35H, Mean Corpuscular Hemoglobin Concent 34, Red Cell Distribution Width 13.4, Platelet Count 103L, Mean Platelet Volume 10.7, Immature Granulocyte % (Auto) 1, Neutrophils (%) (Auto) 87H, Lymphocytes (%) (Auto) 7L, Monocytes (%) (Auto) 5, Eosinophils (%) (Auto) 0, Basophils (%) (Auto) 0, Neutrophils # (Auto) 11.5H, Lymphocytes # (Auto) 0.9L, Monocytes # (Auto) 0.7, Eosinophils # (Auto) 0.0, Basophils # (Auto) 0.0, Immature Granulocyte # (Auto) 0.1, Percent Immature Platelet Fraction 6.8, Sodium Level 135, Potassium Level 3.7, Chloride Level 100, Carbon Dioxide Level 25, Anion Gap 10, Blood Urea Nitrogen 8, Creatinine 0.72, Estimat Glomerular Filtration Rate 101, BUN/Creatinine Ratio 11, Glucose Level 123H, Calcium Level 9.0, Corrected Calcium 9.8, Magnesium Level 1.8, Total Bilirubin 0.9, Aspartate Amino Transf (AST/SGOT) 16, Alanine Aminotransferase (ALT/SGPT) 16, Alkaline Phosphatase 60, Total Protein 5.6L, Albumin 3.0L 07/16/22 04:29: White Blood Count 11.2H, Red Blood Count 3.06L, Hemoglobin 10.7L, Hematocrit 32L , Mean Corpuscular Volume 104H, Mean Corpuscular Hemoglobin 35H, Mean Cor puscular Hemoglobin Concent 34, Red Cell Distribution Width 13.5, Platelet Count 108L, Mean Platelet Volume 10.7, Immature Granulocyte % (Auto) 1, Neutrophils (%) (Auto) 86H, Lymphocytes (%) (Auto) 8L, Monocytes (%) (Auto) 5, Eosinophils (%) (Auto) 1, Basophils (%) (Auto) 0, Neutrophils # (Auto) 9.6H, Lymphocytes # (Auto) 0.9L, Monocytes # (Auto) 0.6, Eosinophils # (Auto) 0.1, Basophils # (Auto) 0.0, Immature Granulocyte # (Auto) 0.1, Percent Immature Platelet Fraction 7.2, Sodium Level 132L, Potassium Level 4.0, Chloride Level 100, Carbon Dioxide Level 24, Anion Gap 8, Blood Urea Nitrogen 9, Creatinine 0.72, Estimat Glomerular Filtration Rate 101, BUN/Creatinine Ratio 13, Glucose Level 106H, Calcium Level 8.6, Corrected Calcium 9.5, Magnesium Level 1.7, Total Bilirubin 0.9, Aspartate Amino Transf (AST/SGOT) 25, Alanine Aminotransferase (ALT/SGPT) 22, Alkaline Phosphatase 62, Total Protein 5.5L, Albumin 2.9L, Digoxin Level 0.68L 07/17/22 05:36: White Blood Count 8.0, Red Blood Count 3.42L, Hemoglobin 12.0L, Hematocrit 35L, Mean Corpuscular Volume 103H, Mean Corpuscular Hemoglobin 35H, Mean Corpuscular Hemoglobin Concent 34, Red Cell Distribution Width 13.2, Platelet Count 116L, Mean Platelet Volume 10.8, Immature Granulocyte % (Auto) 0, Neutrophils (%) (Auto) 78H, Lymphocytes (%) (Auto) 11L, Monocytes (%) (Auto) 9, Eosinophils (%) (Auto) 2, Basophils (%) (Auto) 0, Neutrophils # (Auto) 6.2, Lymphocytes # (Auto) 0.8L, Monocytes # (Auto) 0.8, Eosinophils # (Auto) 0.1, Basophils # (Auto) 0.0, Immature Granulocyte # (Auto) 0.0, Sodium Level 138, Potassium Level 3.8, Chloride Level 102, Carbon Dioxide Level 27, Anion Gap 9, Blood Urea Nitrogen 8, Creatinine 0.67, Estimat Glomerular Filtration Rate 103, BUN/Creatinine Ratio 12, Glucose Level 109H, Calcium Level 8.9, Corrected Calcium 9.6, Magnesium Level 2.1, Total Bilirubin 1.1H, Aspartate Amino Transf (AST/SGOT) 32, Alanine Aminotransferase (ALT/SGPT) 26, Alkaline Phosphatase 74, Total Protein 6.0L, Albumin 3.1L 07/18/22 05:42: White Blood Count 8.7, Red Blood Count 3.41L, Hemoglobin 11.8L, Hematocrit 35L, Mean Corpuscular Volume 104H, Mean Corpuscular Hemoglobin 35H, Mean Corpuscular Hemoglobin Concent 33, Red Cell Distribution Width 13.2, Platelet Count 162, Mean Platelet Volume 10.7, Immature Granulocyte % (Auto) 1, Neutrophils (%) (Auto) 74, Lymphocytes (%) (Auto) 12, Monocytes (%) (Auto) 10, Eosinophils (%) (Auto) 2, Basophils (%) (Auto) 1, Neutrophils # (Auto) 6.4, Lymphocytes # (Auto) 1.1, Monocytes # (Auto) 0.9, Eosinophils # (Auto) 0.2, Basophils # (Auto) 0.0, Immature Granulocyte # (Auto) 0.1, Sodium Level 137, Potassium Level 4.0, Chloride Level 102, Carbon Dioxide Level 27, Anion Gap 8, Blood Urea Nitrogen 10, Creatinine 0.69, Estimat Glomerular Filtration Rate 102, BUN/Creatinine Ratio 14, Glucose Level 101, Calcium Level 9.5, Corrected Calcium 10.2H, Magnesium Level 1.7, Total Bilirubin 0.8, Aspartate Amino Transf (AST/SGOT) 33, Alanine Aminotransferase (ALT/SGPT) 32, Alkaline Phosphatase 73, Total Protein 6.2L, Albumin 3.1L Microbiology 07/15/22 Gram Stain - Final, Complete 07/15/22 Sputum Culture - Final, Complete Klebsiella pneumoniae Proteus mirabilis 07/13/22 Blood Culture - Preliminary, Resulted No growth Pending Labs Microbiology Date/Time Source Procedure Growth Status 07/15/22 10:04 Sputum Expectorated Gram Stain - Final Complete 07/15/22 10:04 Sputum Culture - Final Klebsiella pneumoniae Proteus mirabilis Complete 07/13/22 17:30 Nasal MRSA Screen - Final MRSA not isolated Complete 07/13/22 13:53 Peripheral Lt Hand Blood Culture - Preliminary No growth Resulted 07/13/22 11:50 Peripheral Rt Ac Blood Culture - Preliminary No growth Resulted Laboratory Tests 07/13/22 11:42: White Blood Count 15.3, Red Blood Count 4.19, Hemoglobin 14.5, Hematocrit 41, Mean Corpuscular Volume 99, Mean Corpuscular Hemoglobin 35, Mean Corpuscular Hemoglobin Concent 35, Red Cell Distribution Width 13.0, Platelet Count 145, Mean Platelet Volume 10.2, Immature Granulocyte % (Auto) 1, Neutrophils (%) (Auto) 89, Lymphocytes (%) (Auto) 5, Monocytes (%) (Auto) 4, Eosinophils (%) (Auto) 0, Basophils (%) (Auto) 0, Neutrophils # (Auto) 13.6, Lymphocytes # (Auto) 0.8, Monocytes # (Auto) 0.7, Eosinophils # (Auto) 0.0, Basophils # (Auto) 0.0, Immature Granulocyte # (Auto) 0.1, Neutrophils % (Manual) 91, Lymphocytes % (Manual) 4, Monocytes % (Manual) 1, Eosinophils % (Manual) 0, Basophils % (Manual) 0, Band Neutrophils 4, Percent Immature Platelet Fraction 7.4, Blood Morphology Comment NORMAL, Prothrombin Time 20.1, INR Comment 1.7, Activated Partial Thromboplast Time 31, Sodium Level 129, Potassium Level 4.8, Chloride Level 95, Carbon Dioxide Level 22, Anion Gap 12, Blood Urea Nitrogen 12, Creati nine 1.02, Estimat Glomerular Filtration Rate 81, BUN/Creatinine Ratio 12, Glucose Level 96, Calcium Level 9.0, Corrected Calcium 9.3, Magnesium Level 1.4, Total Bilirubin 1.1, Aspartate Amino Transf (AST/SGOT) 24, Alanine Aminotransferase (ALT/SGPT) 24, Alkaline Phosphatase 84, Troponin I 0.039, B- Type Natriuretic Peptide 153.5, Total Protein 6.4, Albumin 3.6 07/13/22 12:02: Lactic Acid Level 1.84 07/13/22 12:23: Blood Gas Puncture Site R Rad, Blood Gas Patient Temperature 37.5, Arterial Blood pH 7.34, Arterial Blood Partial Pressure CO2 51, Arterial Blood Partial Pressure O2 125, Arterial Blood HCO3 26, Arterial Blood Total CO2 27.9, Arterial Blood Oxygen Saturation 99, Arterial Blood Base Excess 1.3, Harris Test YES-POS, Blood Gas Ventilator Setting NO, Blood Gas Inspired Oxygen 80% 07/13/22 15:33: Glucometer 69 07/13/22 19:51: Glucometer 126 07/14/22 04:20: Blood Gas Puncture Site L RAD, Blood Gas Patient Temperature 36.1, Arterial Blood pH 7.44, Arterial Blood Partial Pressure CO2 38, Arterial Blood Partial Pressure O2 77, Arterial Blood HCO3 26, Arterial Blood Total CO2 26.8, Arterial Blood Oxygen Saturation 100, Arterial Blood Base Excess 1.6, Harris Test YES-POS, Blood Gas Ventilator Setting NO, Blood Gas Inspired Oxygen 30% 07/14/22 05:28: White Blood Count 16.9, Red Blood Count 3.58, Hemoglobin 12.4, Hematocrit 37, Mean Corpuscular Volume 103, Mean Corpuscular Hemoglobin 35, Mean Corpuscular Hemoglobin Concent 34, Red Cell Distribution Width 13.2, Platelet Count 111, Mean Platelet Volume 10.3, Immature Granulocyte % (Auto) 1, Neutrophils (%) (Auto) 90, Lymphocytes (%) (Auto) 5, Monocytes (%) (Auto) 5, Eosinophils (%) (Auto) 0, Basophils (%) (Auto) 0, Neutrophils # (Auto) 15.1, Lymphocytes # (Auto) 0.9, Monocytes # (Auto) 0.8, Eosinophils # (Auto) 0.0, Basophils # (Auto) 0.0, Immature Granulocyte # (Auto) 0.1, Percent Immature Platelet Fraction 6.9, Sodium Level 138, Potassium Level 3.9, Chloride Level 102, Carbon Dioxide Level 25, Anion Gap 11, Blood Urea Nitrogen 12, Creatinine 0.93, Estimat Glomerular Filtration Rate 91, BUN/Creatinine Ratio 13, Glucose Level 121, Calcium Level 9.0, Corrected Calcium 9.6, Phosphorus Level 2.4, Magnesium Level 1.7, Total Bilirubin 0.8, Aspartate Amino Transf (AST/SGOT) 17, Alanine Aminotransferase (ALT/SGPT) 16, Alkaline Phosphatase 63, Total Protein 5.8, Albumin 3.2, Triglycerides Level 59, Cholesterol Level 110, LDL Cholesterol Direct 37, VLDL Cholesterol 12, HDL Cholesterol 57 07/14/22 10:38: Glucometer 136 07/15/22 04:46: White Blood Count 13.2, Red Blood Count 3.25, Hemoglobin 11.4, Hematocrit 33, Mean Corpuscular Volume 102, Mean Corpuscular Hemoglobin 35, Mean Corpuscular Hemoglobin Concent 34, Red Cell Distribution Width 13.4, Platelet Count 103, Mean Platelet Volume 10.7, Immature Granulocyte % (Auto) 1, Neutrophils (%) (Auto) 87, Lymphocytes (%) (Auto) 7, Monocytes (%) (Auto) 5, Eosinophils (%) (Auto) 0, Basophils (%) (Auto) 0, Neutrophils # (Auto) 11.5, Lymphocytes # (Auto) 0.9, Monocytes # (Auto) 0.7, Eosinophils # (Auto) 0.0, Basophils # (Auto) 0.0, Immature Granulocyte # (Auto) 0.1, Percent Immature Platelet Fraction 6.8, Sodium Level 135, Potassium Level 3.7, Chloride Level 100, Carbon Dioxide Level 25, Anion Gap 10, Blood Urea Nitrogen 8, Creatinine 0.72, Estimat Glomerular Filtration Rate 101, BUN/Creatinine Ratio 11, Glucose Level 123, Calcium Level 9.0, Corrected Calcium 9.8, Magnesium Level 1.8, Total Bilirubin 0.9, Aspartate Amino Transf (AST/SGOT) 16, Alanine Aminotransferase (ALT/SGPT) 16, Alkaline Phosphatase 60, Total Protein 5.6, Albumin 3.0 07/16/22 04:29: White Blood Count 11.2, Red Blood Count 3.06, Hemoglobin 10.7, Hematocrit 32, Mean Corpuscular Volume 104, Mean Corpuscular Hemoglobin 35, Mean Corpuscular Hemoglobin Concent 34, Red Cell Distribution Width 13.5, Platelet Count 108, Mean Platelet Volume 10.7, Immature Granulocyte % (Auto) 1, Neutrophils (%) (Auto) 86, Lymphocytes (%) (Auto) 8, Monocytes (%) (Auto) 5, Eosinophils (%) (Auto) 1, Basophils (%) (Auto) 0, Neutrophils # (Auto) 9.6, Lymphocytes # (Auto) 0.9, Monocytes # (Auto) 0.6, Eosinophils # (Auto) 0.1, Basophils # (Auto) 0.0, Immature Granulocyte # (Auto) 0.1, Percent Immature Platelet Fraction 7.2, Sodium Level 132, Potassium Level 4.0, Chloride Level 100, Carbon Dioxide Level 24, Anion Gap 8, Blood Urea Nitrogen 9, Creatinine 0.72, Estimat Glomerular Filtration Rate 101, BUN/Creatinine Ratio 13, Glucose Level 106, Calcium Level 8.6, Corrected Calcium 9.5, Magnesium Level 1.7, Total Bilirubin 0.9, Aspartate Amino Transf (AST/SGOT) 25, Alanine Aminotransferase (ALT/SGPT) 22, Alkaline Phosphatase 62, Total Protein 5.5, Albumin 2.9, Digoxin Level 0.68 07/17/22 05:36: White Blood Count 8.0, Red Blood Count 3.42, Hemoglobin 12.0, Hematocrit 35, Mean Corpuscular Volume 103, Mean Corpuscular Hemoglobin 35, Mean Corpuscular Hemoglobin Concent 34, Red Cell Distribution Width 13.2, Platelet Count 116, Mean Platelet Volume 10.8, Immature Granulocyte % (Auto) 0, Neutrophils (%) (Auto) 78, Lymphocytes (%) (Auto) 11, Monocytes (%) (Auto) 9, Eosinophils (%) (Auto) 2, Basophils (%) (Auto) 0, Neutrophils # (Auto) 6.2, Lymphocytes # (Auto) 0.8, Monocytes # (Auto) 0.8, Eosinophils # (Auto) 0.1, Basophils # (Auto) 0.0, Immature Granulocyte # (Auto) 0.0, Sodium Level 138, Potassium Level 3.8, Chloride Level 102, Carbon Dioxide Level 27, Anion Gap 9, Blood Urea Nitrogen 8, Creatinine 0.67, Estimat Glomerular Filtration Rate 103, BUN/Creatinine Ratio 12, Glucose Level 109, Calcium Level 8.9, Corrected Calcium 9.6, Magnesium Level 2.1, Total Bilirubin 1.1, Aspartate Amino Transf (AST/SGOT) 32, Alanine Aminotransferase (ALT/SGPT) 26, Alkaline Phosphatase 74, Total Protein 6.0, Albumin 3.1 07/18/22 05:42: White Blood Count 8.7, Red Blood Count 3.41, Hemoglobin 11.8, Hematocrit 35, Mean Corpuscular Volume 104, Mean Corpuscular Hemoglobin 35, Mean Corpuscular Hemoglobin Concent 33, Red Cell Distribution Width 13.2, Platelet Count 162, Mean Platelet Volume 10.7, Immature Granulocyte % (Auto) 1, Neutrophils (%) (Auto) 74, Lymphocytes (%) (Auto) 12, Monocytes (%) (Auto) 10, Eosinophils (%) (Auto) 2, Basophils (%) (Auto) 1, Neutrophils # (Auto) 6.4, Lymphocytes # (Auto) 1.1, Monocytes # (Auto) 0.9, Eosinophils # (Auto) 0.2, Basophils # (Auto) 0.0, Immature Granulocyte # (Auto) 0.1, Sodium Level 137, Potassium Level 4.0, Chloride Level 102, Carbon Dioxide Level 27, Anion Gap 8, Blood Urea Nitrogen 10, Creatinine 0.69, Estimat Glomerular Filtration Rate 102, BUN/Creatinine Ratio 14, Glucose Level 101, Calcium Level 9.5, Corrected Calcium 10.2, Magnesium Level 1.7, Total Bilirubin 0.8, Aspartate Amino Transf (AST/SGOT) 33, Alanine Aminotransferase (ALT/SGPT) 32, Alkaline Phosphatase 73, Total Protein 6.2, Albumin 3.1 Discharge Home Medications: Active Scripts Active Nicotine Patch (Nicotine) 21 Mg/24 Hour Patch.td24 21 Mg TD DAILY Ativan (Lorazepam) 0.5 Mg Tablet 0.5 Mg PO Q12H PRN Hydroxyzine HCl 10 Mg Tablet 10 Mg PO Q6H PRN Cefdinir 300 Mg Capsule 300 Mg PO BID Tab-A-Isabel Multivit with Iron (Multivitamin/Iron/Folic Acid) 18 Mg Iron-400 Mcg Tablet 1 Ea PO DAILY@0700 Folic Acid 1 Mg Tablet 1 Mg PO DAILY Magnesium Oxide 400 Mg (241.3 Mg Magnesium) Tablet 400 Mg PO BID Oxyir Tablet (Oxycodone HCl) 5 Mg Tab 5 Mg PO Q4HR PRN Aspirin EC (Aspirin) 81 Mg Tablet.dr 81 Mg PO DAILY Metoprolol Tartrate 25 Mg Tablet 25 Mg PO BID Iprat-Albut 0.5-3(2.5) mg/3 ml (Ipratropium/Albuterol Sulfate) 0.5 Mg-3 Mg (2.5 Mg Base)/3 Ml Ampul.neb 3 Ml INH RTQ4HR Reported Diltiazem ER (Diltiazem HCl) 240 Mg Tab.er.24h 240 Mg PO BID Digoxin 125 Mcg (0.125 Mg) Tablet 125 Mcg PO DAILY Protonix (Pantoprazole Sodium) 40 Mg Tablet.dr 40 Mg PO DAILY [Liquid Iv Otc] 1 Packet PO DAILY [Balance Of Nature] 3 Ea PO DAILY Roflumilast 500 Mcg Tablet 500 Mcg PO DAILY Ventolin Hfa (Albuterol Sulfate) 18 Gm Hfa.aer.ad 2 Puff INH Q6H PRN Breztri Aerosphere Inhaler (Budesonide/Glycopyr/Formoterol) 10.7 Gm Hfa.aer.ad 2 Puff INH BID Xarelto (Rivaroxaban) 20 Mg Tablet 20 Mg PO DAILY Atorvastatin Calcium 10 Mg Tablet 10 Mg PO DAILY LAST FILLED 01-15-2022 #90/90 DAY SUPPLY Instructions to patient/family Please see electronic discharge instructions given to patient. STAR KUMARI DO Jul 18, 2022 11:47
[2022-07-18] MEDS ORDERED: NICO-685 TD (12:11)
[2022-07-18 12:37] VITALS: BP 141/83
== END 2022-07-18 14:41 | disposition home health service (06) | DRG 871 ==
LOC: EDUNIT# 11:27 → ER 11:28 → ICU 12:51 → 4TH 07-16 13:56
PROVIDERS: ADMIT Internal Medicine; ATTEND Internal Medicine
PROC: 5A09357 Assistance with Respiratory Ventilation, Less than 24 Consecutive Hours, Continuous Positive Airway Pressure (ICD-10-PCS; principal; 2022-07-14)
PROC: 5A0935A Assistance with Respiratory Ventilation, Less than 24 Consecutive Hours, High Flow/Velocity Cannula (ICD-10-PCS; 2022-07-15)
DX: A41.89 Other specified sepsis (principal); I50.33 Acute on chronic diastolic (congestive) heart failure; J15.9 Unspecified bacterial pneumonia; J96.22 Acute and chronic respiratory failure with hypercapnia; J96.21 Acute and chronic respiratory failure with hypoxia; I48.19 Other persistent atrial fibrillation; L97.219 Non-pressure chronic ulcer of right calf with unspecified severity; E44.0 Moderate protein-calorie malnutrition; I11.0 Hypertensive heart disease with heart failure; Z79.01 Long term (current) use of anticoagulants; I25.10 Atherosclerotic heart disease of native coronary artery without angina pectoris; J43.9 Emphysema, unspecified; D64.9 Anemia, unspecified; I27.20 Pulmonary hypertension, unspecified; E78.2 Mixed hyperlipidemia; M19.90 Unspecified osteoarthritis, unspecified site; F17.210 Nicotine dependence, cigarettes, uncomplicated; G47.33 Obstructive sleep apnea (adult) (pediatric); F10.20 Alcohol dependence, uncomplicated; I71.40 Abdominal aortic aneurysm, without rupture, unspecified; Z68.20 Body mass index [BMI] 20.0-20.9, adult; Z95.5 Presence of coronary angioplasty implant and graft; Z79.899 Other long term (current) drug therapy; Z79.82 Long term (current) use of aspirin
CPT/HCPCS: 36415; 71045; 80053; 80061; 80162; 82805; 82947; 83605; 83735; 83880; 84100; 84484; 85007; 85025; 85027; 85610; 85730; 87040; 87070; 87077; 87081; 87186; 87205; 93005; 93041; 93306; 94640; 94660; 94664; 96374

== ENCOUNTER 2022-12-17 05:31 | Outpatient (CLI) | payer MEDICARE ==
[~2022-12-17] VITALS: Ht 182.9 cm; Wt 68.0 kg
[~2022-12-17 05:31] MED LIST changes: +ASPI-1238 PO; +CEFD300C3 PO; +DIGO125T3 PO; +DILT240C74 PO; -DILT240C87 PO; +DILT240T10 PO; +FOLI1TAB33 PO; +HYDR-3584 PO; +IPRA3AMP31 INH; +LORA-404 PO; -LOSA100T57 PO; +LOSA100T58 PO; +METO-333 PO; +MGX400T PO; +MULT-1137 PO; +NICO-685 TD; +OXC5T PO; +PANT40TA2 PO
== END 2022-12-17 14:14 | disposition home or self-care (01) ==
LOC: PREOP 05:31
PROVIDERS: ATTEND Surgery
DX: Z01.818 Encounter for other preprocedural examination (principal)

== ENCOUNTER 2022-12-21 17:42 | Inpatient (IN) | payer MEDICARE ==
[~2022-12-21] VITALS: Ht 177 cm; Wt 67.5 kg
[~2022-12-21 17:42] MED LIST changes: -HYDR-700 PO; -IPRA3AMP31 IH; -LOSA-417 PO; -MAGN400T39 PO; -MTP25TSR PO; -PANT40TA52 PO; -POTA-169 PO; -SERT-412 PO
[2022-12-21] MEDS ORDERED: IOHEXOL 350 MG/ML 100 ML (OMNIPAQUE 350) VIAL IV ONE (18:15)
[2022-12-21] MEDS ORDERED: HOLD METFORMIN - RECEIVED CONTRAST 20 ML VIAL IV SCH (18:15)
[2022-12-21] MEDS ORDERED: NS 100 ML (IVPB) BAG IV ONE (18:15)
--- NOTE | 2022-12-21 18:21 | ED Abdominal Pain ---
General Chief Complaint: Chest Pain Stated Complaint: CHEST PAIN Source of Information: Patient Exam Limitations: No Limitations History of Present Illness Date Seen by Provider: Dec 21, 2022 Time Seen by Provider: 18:16 Initial Comments Patient is a 67-year-old male with a history of coronary artery disease, CHF, COPD, AAA who presents to the ED [place] [facility] [place] angio chest and abdomen. Patient was seen today as he has been experiencing abdominal pain for the past 3 days. Pain started in his mid abdomen and has radiated to the sides bilateral. Seems to be worse with rotational movement. Gets relief when he lies down. Denies of any nausea vomiting or diarrhea. Urgent care did obtain x-rays and states patient appears constipated but states he is having regular bowel movements. He is scheduled for a caudal anoscopy tomorrow by Dr. Davis for a checkup. He has no rectal bleeding, weight loss, current chest pain or shortness of breath. Did have a AAA repair in [address] Hogue. There was concern for mediastinum widening concerning for dissection. He has no current chest pain or shortness of breath. There was issues of obtaining a CT scan of the chest and abdomen. Patient checked in for further evaluation. He is scheduled for a cardiac cath on Wednesday by Dr. Douglass. He has been experiencing some chest pressure and some shortness of breath but none at this time. Pain does not radiate to the back. He is currently on Xarelto. History of A-fib. Patient is chronically on 4 L. Allergies and Home Medications Allergies Coded Allergies: No Known Drug Allergies (Unverified , 03/17/12) Patient Home Medication List Home Medication List Reviewed: Yes Albuterol Sulfate (Ventolin Hfa) 18 Gm Hfa.aer.ad, 2 PUFF INH Q6H PRN for SHORTNESS OF BREATH, (Reported) Entered as Reported by: IVELISSE BALLARD on 12/09/20 1158 Aspirin (Aspirin EC) 81 Mg Tablet.dr, 81 MG PO DAILY Prescribed by: STAR KUMARI on 07/18/22 1144 Atorvastatin Calcium (Atorvastatin Calcium) 10 Mg Tablet, 10 MG PO DAILY, (Reported) Entered as Reported by: NIRAV GAFFNEY on 11/01/17 1057 Budesonide/Glycopyr/Formoterol (Breztri Aerosphere Inhaler) 10.7 Gm Hfa.aer.ad, 2 PUFF INH BID, (Reported) Entered as Reported by: IVELISSE BALLARD on 12/09/20 1158 Digoxin (Digoxin) 125 Mcg (0.125 Mg) Tablet, 125 MCG PO DAILY, (Reported) Entered as Reported by: IVELISSE BALLARD on 07/14/22 1336 Diltiazem HCl (Diltiazem ER) 240 Mg Tab.er.24h, 240 MG PO BID, (Reported) Entered as Reported by: IVELISSE BALLARD on 07/14/22 1338 Folic Acid (Folic Acid) 1 Mg Tablet, 1 MG PO DAILY Prescribed by: STAR KUMARI on 07/18/22 1144 Hydroxyzine HCl (Hydroxyzine HCl) 10 Mg Tablet, 10 MG PO Q6H PRN for ANXIETY Prescribed by: STAR KUMARI on 07/18/22 1144 Ipratropium/Albuterol Sulfate (Iprat-Albut 0.5-3(2.5) mg/3 ml) 0.5 Mg-3 Mg (2.5 Mg Base)/3 Ml Ampul.neb, 3 ML INH RTQ4HR Prescribed by: STAR KUMARI on 07/18/22 1144 Magnesium Oxide (Magnesium Oxide) 400 Mg (241.3 Mg Magnesium) Tablet, 400 MG PO BID Prescribed by: STAR KUMARI on 07/18/22 1144 Metoprolol Tartrate (Metoprolol Tartrate) 25 Mg Tablet, 25 MG PO BID Prescribed by: STAR KUMARI on 07/18/22 1144 Multivitamin/Iron/Folic Acid (Tab-A-Isabel Multivit with Iron) 18 Mg Iron-400 Mcg Tablet, 1 EA PO DAILY@0700 Prescribed by: STAR KUMARI on 07/18/22 1144 Pantoprazole Sodium (Protonix) 40 Mg Tablet.dr, 40 MG PO DAILY, (Reported) Entered as Reported by: SREEDHAR RAGLAND on 07/13/22 1337 Rivaroxaban (Xarelto) 20 Mg Tablet, 20 MG PO DAILY, (Reported) Entered as Reported by: IVELISSE BALLARD on 12/09/20 1158 Roflumilast (Roflumilast) 500 Mcg Tablet, 500 MCG PO DAILY, (Reported) Entered as Reported by: IVELISSE BALLARD on 02/19/22 1138 Discontinued Medications Cefdinir (Cefdinir) 300 Mg Capsule, 300 MG PO BID Discontinued Reason: No Longer Taking Prescribed by: STAR KUMARI on 07/18/22 1144 Lorazepam (Ativan) 0.5 Mg Tablet, 0.5 MG PO Q12H PRN for ANXIETY Discontinued Reason: No Longer Taking Prescribed by: STAR KUMARI on 07/18/22 1145 Nicotine (Nicotine Patch) 21 Mg/24 Hour Patch.td24, 21 MG TD DAILY Discontinued Reason: No Longer Taking Prescribed by: STAR KUMARI on 07/18/22 1211 Oxycodone Hcl (Oxyir Tablet) 5 Mg Tab, 5 MG PO Q4HR PRN for PAIN-SEE DOSE INST RUCTIONS Discontinued Reason: No Longer Taking Prescribed by: STAR KUMARI on 07/18/22 1145 [Balance Of Nature] , 3 EA PO DAILY, (Reported) Discontinued Reason: No Longer Taking Entered as Reported by: IVELISSE BALLARD on 02/19/22 1138 [Liquid Iv Otc] , 1 PACKET PO DAILY, (Reported) Discontinued Reason: No Longer Taking Entered as Reported by: IVELISSE BALLARD on 02/19/22 1138 Review of Systems Review of Systems Constitutional: No chills, No diaphoresis EENTM: No Double Vision, No Eye Pain Respiratory: Denies Cough, Denies Orthopnea Cardiovascular: Denies Chest Pain Gastrointestinal: Abdominal Pain; Denies Diarrhea, Denies Nausea, Denies Vomiting Genitourinary: Denies Burning, Denies Discharge, Denies Drainage, Denies Frequency Musculoskeletal: No back pain, No joint pain Skin: No change in color, No change in hair/nails Psychiatric/Neurological: Denies Anxiety, Denies Depressed All Other Systems Reviewed Negative Unless Noted: Yes Past Zxgpkof-Oypwco-Kduixb Hx Immunizations Up To Date Tetanus Booster (TDap): Unknown PED Vaccines UTD: Yes First/Initial COVID19 Vaccinat: 2020 Second COVID19 Vaccination Raphael: 2020 Third COVID19 Vaccination Date: 04/18/2021 Seasonal Allergies Seasonal Allergies: No Past Medical History Surgery/Hospitalization HX: ABLASION, HEART STENT, BRONCHOSCOPY, NOSE SURGERY, KNEE SCOPE, COPD, HTN, HIGH CHOL, AFIB, TAKES XERALTO Surgeries: Yes Lobectomy Respiratory: Yes (Tobaccoism) Pneumonia, COPD Cardiac: Yes (cardiac mass versus thrombus. STENTS, ABLATION) Atrial Fibrillation, Coronary Artery Disease, High Cholesterol, Hypertension Neurological: No Reproductive Disorders: No Genitourinary: No Gastrointestinal: No Musculoskeletal: Yes Arthritis Endocrine: No HEENT: No Cancer: No Psychosocial: No Integumentary: No Blood Disorders: No Family Medical History Asthma 19 MOTHER Cancer of extrahepatic bile ducts 19 FATHER Diabetes mellitus G8 SISTER FH: COPD (chronic obstructive pulmonary disease) 19 MOTHER Heart Disease, Cancer, Lung Disease Physical Exam Vital Signs Vital Signs - First Documented 12/21/22 17:45 Temp 37.0 Pulse 54 Resp 18 B/P (MAP) 132/80 (97) Pulse Ox 92 O2 Delivery Room Air Capillary Refill : Height/Weight/BMI Height: 6'4.00" Weight: 154lbs. 2.0oz. [id number]; 20.32 BMI Method:Stated General Appearance: WD/WN, no apparent distress HEENT: PERRL/EOMI, normal ENT inspection, TMs normal, pharynx normal Neck: non-tender, full range of motion, supple Respiratory: chest non-tender, lungs clear, normal breath sounds, no respiratory distress, no accessory muscle use Cardiovascular: regular rate, rhythm, no edema, no gallop, no JVD Gastrointestinal: normal bowel sounds, non tender, soft, no organomegaly Extremities: normal range of motion, non-tender, normal inspection Back: normal inspection, no CVA tenderness Neurologic/Psychiatric: skein winder II-XII nml as tested, no motor/sensory deficits, alert, normal mood/affect, oriented x 3 Skin: normal color, warm/dry Procedures/Interventions Date of ETT Placement: Nov 13, 2017 Time of ETT Placement: 08 Progress/Results/Core Measures Results/Orders Lab Results Laboratory Tests Test 12/21/22 18:50 Range/Units White Blood Count 9.4 4.3-11.0 10^3/uL Red Blood Count 4.17 L 4.30-5.52 10^6/uL Hemoglobin 14.3 13.3-17.7 g/dL Hematocrit 44 40-54 % Mean Corpuscular Volume 105 H 80-99 fL Mean Corpuscular Hemoglobin 34 25-34 pg Mean Corpuscular Hemoglobin Concent 33 32-36 g/dL Red Cell Distribution Width 14.6 H 10.0-14.5 % Platelet Count 177 130-400 10^3/uL Mean Platelet Volume 9.9 9.0-12.2 fL Immature Granulocyte % (Auto) 0 % Neutrophils (%) (Auto) 75 42-75 % Lymphocytes (%) (Auto) 14 12-44 % Monocytes (%) (Auto) 9 0-12 % Eosinophils (%) (Auto) 1 0-10 % Basophils (%) (Auto) 0 0-10 % Neutrophils # (Auto) 7.1 1.8-7.8 10^3/uL Lymphocytes # (Auto) 1.4 1.0-4.0 10^3/uL Monocytes # (Auto) 0.8 0.0-1.0 10^3/uL Eosinophils # (Auto) 0.1 0.0-0.3 10^3/uL Basophils # (Auto) 0.0 0.0-0.1 10^3/uL Immature Granulocyte # (Auto) 0.0 0.0-0.1 10^3/uL Prothrombin Time 13.8 12.2-14.7 SEC INR Comment 1.0 0.8-1.4 Activated Partial Thromboplast Time 29 24-35 SEC Sodium Level 136 135-145 MMOL/L Potassium Level 4.5 3.6-5.0 MMOL/L Chloride Level 99 98-107 MMOL/L Carbon Dioxide Level 25 21-32 MMOL/L Anion Gap 12 5-14 MMOL/L Blood Urea Nitrogen 9 7-18 MG/DL Creatinine 0.85 0.60-1.30 MG/DL Estimat Glomerular Filtration Rate 95 BUN/Creatinine Ratio 11 Glucose Level 104 70-105 MG/DL Calcium Level 9.7 8.5-10.1 MG/DL Corrected Calcium 9.7 8.5-10.1 MG/DL Magnesium Level 1.8 1.6-2.4 MG/DL Total Bilirubin 1.1 H 0.1-1.0 MG/DL Aspartate Amino Transf (AST/SGOT) 29 5-34 U/L Alanine Aminotransferase (ALT/SGPT) 25 0-55 U/L Alkaline Phosphatase 103 40-136 U/L Myoglobin 40.5 10.0-92.0 NG/ML Troponin I < 0.028 <0.028 NG/ML Total Protein 7.4 6.4-8.2 GM/DL Albumin 4.0 3.2-4.5 GM/DL Lipase 23 8-78 U/L My Orders Orders - DANIKA SAMS Cbc And Automated Diff (12/21/22 18:06) Magnesium (12/21/22 18:06) Comprehensive Metabolic Panel (12/21/22 18:06) Myoglobin Serum (12/21/22 18:06) Protime With Inr (12/21/22 18:06) Partial Thromboplastin Time (12/21/22 18:06) O2 (12/21/22 18:06) Monitor-Rhythm Ecg Trace Only (12/21/22 18:06) Ed Iv/Invasive Line Start (12/21/22 18:06) Lipase (12/21/22 18:06) Troponin I [place] (12/21/22 18:06) Ct Angio Chest/Abd W(R/O Ad) (12/21/22 18:06) Ed Admission (Communication) (12/21/22 20:03) Medications Given in ED Current Medications Medications Dose Ordered Sig/Lorna Route Start Time Stop Time Status Last Admin Dose Admin Iohexol 100 ml ONCE ONCE IV 12/21/22 18:15 12/21/22 18:16 DC 12/21/22 19:03 63 ML Sodium Chloride 100 ml ONCE ONCE IV 12/21/22 18:15 12/21/22 18:16 DC 12/21/22 19:04 80 ML Vital Signs/I&O 12/21/22 17:45 Temp 37.0 Pulse 54 Resp 18 B/P (MAP) 132/80 (97) Pulse Ox 92 O2 Delivery Room Air Departure Communication (PCP) History of COPD, CHF, intra-abdominal aneurysm [place] [address] Hogue presents ED for abdominal pain for the past 3 days. No vomiting or diarrhea. Differential diagnoses obstruction, constipation, perforated bowel, aneurysm, musculoskeletal pain, aortic dissection felt unlikely. Pain is worse with movement. On exam no specific tenderness with some mild distention. Patient was seen at [facility] [place] sent to the ED for CT angio chest abdomen pelvis concern for aortic dissection secondary to abnormal chest x-ray which was concern for mediastinal widening. Patient has no specific chest pain or shortness of breath at this time. Chronically wears 4 L of oxygen for his COPD and CHF. Does follow Dr. Douglass scheduled for cardiac cath on Wednesday. S cheduled for colonoscopy by Dr. Davis tomorrow. Generalized lab work was ordered CT angio chest and abdomen. Did obtain EKG which showed atrial fibrillation chronic. Not currently taking his Xarelto secondary to the colonoscopy. Patient has not prepped for the colonoscopy yet secondary to the pain. Pain is not exacerbated with eating. No history of peptic ulcers. No bloody mucousy stools. CBC was grossly unremarkable. Chemistry was grossly unremarkable. Normal troponin. CT of the chest and abdomen shows large amount of intra abdominal free air. Concern for hollow viscus perforation. Patient was discussed with Dr. Davis who evaluated patient here in the ED. At this time patient will be admitted to the ICU and will be going to the OR for explor atory laparotomy. Patient agrees with plan of action. Discussed patient with Dr. Smith who will consult. Impression Primary Impression: Intra-abdominal free air of unknown etiology Disposition: ADMITTED INPATIENT Condition: Stable Departure-Patient Inst. Referrals: [facility] (PCP/Family) Primary Care Physician DANIKA SAMS Dec 21, 2022 18:21
[2022-12-21 19:05] LABS: BASOPHILS % (AUTO) 0 % (0-10); EOSINOPHILS # (AUTO) 0.1 10^3/uL (0.0-0.3); EOSINOPHILS % (AUTO) 1 % (0-10); HEMATOCRIT 44 % (40-54); HEMOGLOBIN 14.3 g/dL (13.3-17.7); LYMPHOCYTES # (AUTO) 1.4 10^3/uL (1.0-4.0); LYMPHOCYTES % (AUTO) 14 % (12-44); MEAN CORPUSCULAR HEMOGLOBIN 34 pg (25-34); MEAN CORPUSCULAR HGB CONC 33 g/dL (32-36); MEAN CORPUSCULAR VOLUME 105 fL (80-99); MEAN PLATELET VOLUME 9.9 fL (9.0-12.2); MONOCYTES # (AUTO) 0.8 10^3/uL (0.0-1.0); MONOCYTES % (AUTO) 9 % (0-12); NEUTROPHILS # (AUTO) 7.1 10^3/uL (1.8-7.8); NEUTROPHILS % (AUTO) 75 % (42-75); PLATELET COUNT 177 10^3/uL (130-400); WHITE BLOOD COUNT 9.4 10^3/uL (4.3-11.0)
[2022-12-21 19:14] LABS: PROTHROMBIN TIME PATIENT 13.8 SEC (12.2-14.7)
[2022-12-21 19:18] LABS: CHLORIDE 99 MMOL/L (98-107); POTASSIUM 4.5 MMOL/L (3.6-5.0); SODIUM 136 MMOL/L (135-145)
[2022-12-21 19:19] LABS: CALCIUM 9.7 MG/DL (8.5-10.1)
[2022-12-21 19:20] LABS: GLUCOSE 104 MG/DL (70-105)
[2022-12-21 19:21] LABS: TOTAL PROTEIN 7.4 GM/DL (6.4-8.2)
[2022-12-21 19:22] LABS: BILIRUBIN,TOTAL 1.1 MG/DL (0.1-1.0); CARBON DIOXIDE 25 MMOL/L (21-32)
[2022-12-21 19:24] LABS: ALKALINE PHOSPHATASE 103 U/L (40-136)
[2022-12-21 19:27] LABS: ALANINE AMINOTRANSFERASE 25 U/L (0-55); MAGNESIUM 1.8 MG/DL (1.6-2.4)
[2022-12-21 19:28] LABS: LIPASE 23 U/L (8-78)
--- NOTE | 2022-12-21 19:28 | Diagnostic Imaging Report ---
EXAMINATION: CT angiography of the chest and abdomen. TECHNIQUE: After intravenous administration of contrast, thin section axial CT angiography of the abdomen and chest were obtained. 3D MIP reformats were provided. All CT scans use one or more of the following dose optimizing techniques: automated exposure control, MA and/or KvP adjustment based on a patient size and exam type, or iterative reconstruction. HISTORY: Chest pain, SOB, history of aneurysm COMPARISON: None available. FINDINGS: Vascular: There are vascular calcifications of the thoracic and abdominal aorta. No thoracic aortic aneurysm is present. 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 No dissection. Mild stenosis of the right internal iliac artery. Thyroid: The thyroid is normal. Mediastinum: Heart size is normal without significant pericardial effusion. No suspicious lymphadenopathy. Lungs and airways: There are background emphysematous changes of the lungs without consolidation, pleural effusion, or pneumothorax. Scattered areas of linear atelectasis or scarring. There is mucous plugging within the lower airways. Solid organs: The liver is normal without focal lesion. The gallbladder is normal. There is no biliary ductal dilation. Pancreas is normal. Spleen is normal. Adrenal glands are normal. The kidneys are normal without hydronephrosis. Bowel: No bowel obstruction. Peritoneum: There is no significant free fluid present. There is a large volume of free air within the abdomen. Scattered foci of free air is seen within the left upper quadrant along the stomach. No suspicious lymphadenopathy. Musculoskeletal: Degenerative changes of the spine without suspicious osseous lesion or compression fracture. IMPRESSION: 1. Large volume of intra-abdominal free air of uncertain etiology but concerning for hollow viscus perforation. There are a few foci along the left upper quadrant near the stomach which could suggest perforated ulceration. 2. 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 No dissection or significant stenosis. 3. COPD without other acute abnormality in the chest. Critical finding. Results communicated to Sonny Christy by Dr. Reilly Carrasco at 7:20 PM on 12/21/2022 Dictated by: Dictated on workstation # [id number]
[2022-12-21 19:54] LABS: BUN/CREATININE RATIO 11; CREATININE SERUM 0.85 MG/DL (0.60-1.30); GFR ESTIMATED 95
--- NOTE | 2022-12-21 20:11 | Consultation - Surgery ---
History of Present Illness History of Present Illness Patient Consulted On(kevan/time) 12/21/22 20:06 Date Seen by Provider: Dec 21, 2022 Time Seen by Provider: 20:06 History of Present Illness Consult requested by Dominic Christy for hollow viscus perforation. Patient is a 67 year old male who has been having epigastric abdominal pain for 2 days. Now severe pain in the LUQ of abdomen when in certain position. Was supposed to have colonoscopy by me tomorrow, but didn't start the prep due to pain. Laying still would make better. Aspirin and Xarelto on hold, due to him having planned colonoscopy tomorrow. Went to Urgent care who order CTA chest/abdomen which demonstrated:1. Large volume of intra-abdominal free air of uncertain etiology but concerning for hollow viscus perforation. There are a few foci along the left upper quadrant near the stomach which could suggest perforated ulceration. 2. 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 No dissection or significant stenosis. 3. COPD without other acute abnormality in the chest. Allergies and Home Medications Allergies Coded Allergies: No Known Drug Allergies (Unverified , 03/17/12) Patient Home Medication List Home Medication List Reviewed: Yes Albuterol Sulfate (Ventolin Hfa) 18 Gm Hfa.aer.ad, 2 PUFF INH Q6H PRN for SHORTNESS OF BREATH, (Reported) Entered as Reported by: IVELISSE BALLARD on 12/09/20 1158 Aspirin (Aspirin EC) 81 Mg Tablet.dr, 81 MG PO DAILY Prescribed by: STAR KUMARI on 07/18/22 1144 Atorvastatin Calcium (Atorvastatin Calcium) 10 Mg Tablet, 10 MG PO DAILY, (Reported) Entered as Reported by: NIRAV GAFFNEY on 11/01/17 1057 Budesonide/Glycopyr/Formoterol (Breztri Aerosphere Inhaler) 10.7 Gm Hfa.aer.ad, 2 PUFF INH BID, (Reported) Entered as Reported by: IVELISSE BALLARD on 12/09/20 1158 Digoxin (Digoxin) 125 Mcg (0.125 Mg) Tablet, 125 MCG PO DAILY, (Reported) Entered as Reported by: IVELISSE BALLARD on 07/14/22 1336 Diltiazem HCl (Diltiazem ER) 240 Mg Tab.er.24h, 240 MG PO BID, (Reported) Entered as Reported by: IVELISSE BALLARD on 07/14/22 1338 Folic Acid (Folic Acid) 1 Mg Tablet, 1 MG PO DAILY Prescribed by: STAR KUMARI on 07/18/22 1144 Hydroxyzine HCl (Hydroxyzine HCl) 10 Mg Tablet, 10 MG PO Q6H PRN for ANXIETY Prescribed by: STAR KUMARI on 07/18/22 1144 Ipratropium/Albuterol Sulfate (Iprat-Albut 0.5-3(2.5) mg/3 ml) 0.5 Mg-3 Mg (2.5 Mg Base)/3 Ml Ampul.neb, 3 ML INH RTQ4HR Prescribed by: STAR KUMARI on 07/18/22 1144 Magnesium Oxide (Magnesium Oxide) 400 Mg (241.3 Mg Magnesium) Tablet, 400 MG PO BID Prescribed by: STAR KUMARI on 07/18/22 1144 Metoprolol Tartrate (Metoprolol Tartrate) 25 Mg Tablet, 25 MG PO BID Prescribed by: STAR KUMARI on 07/18/22 1144 Multivitamin/Iron/Folic Acid (Tab-A-Isabel Multivit with Iron) 18 Mg Iron-400 Mcg Tablet, 1 EA PO DAILY@0700 Prescribed by: STAR KUMAIR on 07/18/22 1144 Pantoprazole Sodium (Protonix) 40 Mg Tablet.dr, 40 MG PO DAILY, (Reported) Entered as Reported by: SREEDHAR RAGLAND on 07/13/22 1337 Rivaroxaban (Xarelto) 20 Mg Tablet, 20 MG PO DAILY, (Reported) Entered as Reported by: IVELISSE BALLARD on 12/09/20 1158 Roflumilast (Roflumilast) 500 Mcg Tablet, 500 MCG PO DAILY, (Reported) Entered as Reported by: IVELISSE BALLARD on 02/19/22 1138 Discontinued Medications Cefdinir (Cefdinir) 300 Mg Capsule, 300 MG PO BID Discontinued Reason: No Longer Taking Prescribed by: STAR KUMARI on 07/18/22 1144 Lorazepam (Ativan) 0.5 Mg Tablet, 0.5 MG PO Q12H PRN for ANXIETY Discontinued Reason: No Longer Taking Prescribed by: STAR KUMARI on 07/18/22 1145 Nicotine (Nicotine Patch) 21 Mg/24 Hour Patch.td24, 21 MG TD DAILY Discontinued Reason: No Longer Taking Prescribed by: STAR KUMARI on 07/18/22 1211 Oxycodone Hcl (Oxyir Tablet) 5 Mg Tab, 5 MG PO Q4HR PRN for PAIN-SEE DOSE INSTRUCTIONS Discontinued Reason: No Longer Taking Prescribed by: STAR KUMARI on 07/18/22 1145 [Balance Of Nature] , 3 EA PO DAILY, (Reported) Discontinued Reason: No Longer Taking Entered as Reported by: IVELISSE BALLARD on 02/19/22 1138 [Liquid Iv Otc] , 1 PACKET PO DAILY, (Reported) Discontinued Reason: No Longer Taking Entered as Reported by: IVELISSE BALLARD on 02/19/22 1138 Past Aqitqhh-Lwttry-Abhxtv Hx Patient Social History Smoking Status: Current Everyday Smoker Former Smoker, Quit: Nov 17, 2017 Type Used: Cigarettes 2nd Hand Smoke Exposure: Yes Recent Hopitalizations: No Alcohol Use?: Yes (daily) Immunizations Up To Date Tetanus Booster (TDap): Unknown PED Vaccines UTD: Yes Date of Pneumonia Vaccine: Oct 20, 2011 Date of Influenza Vaccine: Nov 15, 2020 Seasonal Allergies Seasonal Allergies: No Surgeries History of Surgeries: Yes (feeding tube) Surgeries: Lobectomy Respiratory History of Respiratory Disorde: Yes (Tobaccoism) Respiratory Disorders: Pneumonia, COPD Cardiovascular History of Cardiac Disorders: Yes (cardiac mass versus thrombus. STENTS, ABLATION) Cardiac Disorders: Atrial Fibrillation, Coronary Artery Disease, High Cholesterol, Hypertension Neurological History of Neurological Disord: No Reproductive System Hx Reproductive Disorders: No Genitourinary History of Genitourinary Disor: No Gastrointestinal History of Gastrointestinal Di: No Musculoskeletal History of Musculoskeletal Dis: Yes Musculoskeletal Disorders: Arthritis Endocrine History of Endocrine Disorders: No HEENT History of HEENT Disorders: No Cancer History of Cancer: No Psychosocial History of Psychiatric Problem: No Integumentary History of Skin or Integumenta: No Blood Transfusions History of Blood Disorders: No Reviewed Nursing Assessment Reviewed/Agree w Nursing PMH: Yes Family Medical History Significant Family History: Heart Disease, Cancer, Lung Disease Family Medial History: Asthma 19 MOTHER Cancer of extrahepatic bile ducts 19 FATHER Diabetes mellitus G8 SISTER FH: COPD (chronic obstructive pulmonary disease) 19 MOTHER Review of Systems-General Constitutional: No chills, No diaphoresis EENTM: No blurred vision, No double vision Respiratory: No cough, No dyspnea on exertion Cardiovascular: No chest pain, No palpitations Gastrointestinal: abdominal pain (LUQ); No nausea, No vomiting Genitourinary: No decreased output, No discharge Musculoskeletal: No back pain, No joint pain Skin: No change in color, No change in hair/nails Psychiatric/Neurological: Denies Anxiety, Denies Depressed, Denies Emotional Problems All Other Systems Reviewed Negative Unless Noted: Yes (Negative excepted noted.) Physical Exam-General Problems Physical Exam Vital Signs Capillary Refill : General Appearance: WD/WN, mild distress HEENT: PERRL/EOMI, normal ENT inspection Neck: non-tender, supple Respiratory: chest non-tender, no respiratory distress, no accessory muscle use Cardiovascular: regular rate, rhythm, no JVD Gastrointestinal: distended, tenderness (luq) Rectal: deferred Back: normal inspection, no CVA tenderness Extremities: non-tender, normal inspection Neurologic/Psychiatric: alert, normal mood/affect, oriented x 3 Skin: normal color, warm/dry Lymphatic: no adenopathy Data Review Labs Laboratory Tests 12/21/22 18:50: White Blood Count 9.4, Red Blood Count 4.17L, Hemoglobin 14.3, Hematocrit 44, Mean Corpuscular Volume 105H, Mean Corpuscular Hemoglobin 34, Mean Corpuscular Hemoglobin Concent 33, Red Cell Distribution Width 14.6H, Platelet Count 177, Mean Platelet Volume 9.9, Immature Granulocyte % (Auto) 0, Neutrophils (%) (Auto) 75, Lymphocytes (%) (Auto) 14, Monocytes (%) (Auto) 9, Eosinophils (%) (Auto) 1, Basophils (%) (Auto) 0, Neutrophils # (Auto) 7.1, Lymphocytes # (Auto) 1.4, Monocytes # (Auto) 0.8, Eosinophils # (Auto) 0.1, Basophils # (Auto) 0.0, Immature Granulocyte # (Auto) 0.0, Prothrombin Time 13.8, INR Comment 1.0, Activated Partial Thromboplast Time 29, Sodium Level 136, Potassium Level 4.5, Chloride Level 99, Carbon Dioxide Level 25, Anion Gap 12, Blood Urea Nitrogen 9, Creatinine 0.85, Estimat Glomerular Filtration Rate 95, BUN/Creatinine Ratio 11, Glucose Level 104, Calcium Level 9.7, Corrected Calcium 9.7, Magnesium Level 1.8, Total Bilirubin 1.1H, Aspartate Amino Transf (AST/SGOT) 29, Alanine Aminotransferase (ALT/SGPT) 25, Alkaline Phosphatase 103, Myoglobin 40.5, Troponin I < 0.028, Total Protein 7.4, Albumin 4.0, Lipase 23 Assessment/Plan Assessment/Plan Assessment/Plan luq abdominal pain hollow viscus perforation [facility]iary anticoagulation/antiplatelet Chronic EtOH use Patient with free air on CT scan. Likely hollow viscus perforation suspect gastric perforation. Discussed risks and benefits of exploratory laparotomy all other indicated procedures He understands and wishes to proceed. NPO Will take to OR. Place in ICU, CIWA He see's cardiology will consult Dr. Douglass. Consult medicine. Ancef/Flagyl Anticoagulation/antiplatelet on hold already for he was supposed to have colonoscopy tomorrow, but didn't start prep. BRYON KHALIL DO Dec 21, 2022 20:11
[2022-12-21] MEDS ORDERED: LIDOCAINE PF 2% 5 ML VIAL ONE (20:45)
[2022-12-21] MEDS ORDERED: MIDAZOLAM INJ 2 MG/2 ML VIAL ONE (20:45)
[2022-12-21] MEDS ORDERED: SUCCINYLCHOLINE INJ 20 MG/1 ML 10 ML VIAL ONE (20:45)
[2022-12-21] MEDS ORDERED: proPOfol INJECTION 200 MG/20 ML VIAL IV ONE (20:45)
[2022-12-21] MEDS ORDERED: ROCURONIUM 50 MG/5 ML VIAL IV ONE ×2 (20:45→22:00)
[2022-12-21] MEDS ORDERED: ONDANSETRON INJECTION 4 MG/2 ML (SDV) ONE (20:45)
[2022-12-21] MEDS ORDERED: fentaNYL INJECTION 100 MCG/2 ML VIAL ONE (20:45)
[2022-12-21] MEDS ORDERED: metroNIDAZOLE 500MG/100ML IVPB 100 ML ONE (20:52)
[2022-12-21] MEDS ORDERED: ceFAZolin INJECTION 2,000 MG ONE (20:52)
[2022-12-21] MEDS: ceFAZolin INJECTION 2,000 MG in NS (IVPB) 50 ML 50 ML IV SCH (21:02)
[2022-12-21] MEDS ORDERED: PHENYLEPHRINE 100 MCG/ML 10 ML (ANESTHESIA) SYR ONE (21:13)
[2022-12-21] MEDS ORDERED: BUPIVACAINE 0.5% 30 ML VIAL ONE (21:51)
[2022-12-21] MEDS ORDERED: SEVOFLURANE (ULTANE) 15 ML INHAL SOLN ONE (22:01)
[2022-12-21 22:20] VITALS: BP 166/102
--- NOTE | 2022-12-21 22:29 | Progress Note-Post Operative ---
Post-Operative Progess Note Surgeon (s)/Mounter Smoking Pipe (s) Surgeon BRYON KHALIL DO Mounter Smoking Pipe: NA Pre-Operative Diagnosis HOLLOW VISCUS PERFORATION Post-Operative Diagnosis GASTRIC PERFORATION Procedure & Operative Findings Date of Procedure 12/21/22 Procedure Performed/Findings EXPLORATORY LAPAROTOMY WITH PARTIAL GASTRIC RESECTION Anesthesia Type GENERAL Estimated Blood Loss Estimated blood loss (mL): MINIMAL Specimens/Packing Specimens Removed PORTION STOMACH BRYON KHALIL DO Dec 21, 2022 22:29
[2022-12-21 22:30] VITALS: BP 164/96
[2022-12-21 22:40] VITALS: BP 166/89
[2022-12-21 22:50] VITALS: BP 136/109
[2022-12-21] MEDS ORDERED: fentaNYL DRIP PRE-MIX 250 ML IV ONE (22:58)
[2022-12-21 23:00] VITALS: BP 157/89
[2022-12-21] MEDS ORDERED: ONDANSETRON INJECTION 4 MG/2 ML (SDV) IVP PRN (23:00)
[2022-12-21] MEDS ORDERED: PROMETHAZINE INJ 25 MG/ML VIAL IVP ONE (23:00)
[2022-12-21] MEDS ORDERED: HYDROmorphone INJECTION 2 MG/ML VIAL IV ONE (23:00)
[2022-12-21] MEDS ORDERED: morphine INJ 10 MG/ML 1ML (SYR OR VIAL) IVP ONE (23:00)
[2022-12-21 23:01] LABS: ABG BASE EXCESS 1.7 MMOL/L (-2.5-2.5); ABG OXYGEN SATURATION 100 % (94-100); ABG PCO2 42 MMHG (35-45); ABG PH 7.41 (7.37-7.43); ABG PO2 296 MMHG (79-93); ABG TCO2 27.9 MMOL/L (21.0-31.0)
[2022-12-21 23:02] LABS: INSPIRED O2 100%; VENTILATOR YES
[2022-12-21] MEDS: fentaNYL DRIP PRE-MIX 250 ML IV SCH (23:09)
[2022-12-21 23:11] LABS: BASOPHILS % (AUTO) 0 % (0-10); EOSINOPHILS # (AUTO) 0.2 10^3/uL (0.0-0.3); EOSINOPHILS % (AUTO) 2 % (0-10); HEMATOCRIT 44 % (40-54); HEMOGLOBIN 14.7 g/dL (13.3-17.7); LYMPHOCYTES # (AUTO) 1.3 10^3/uL (1.0-4.0); LYMPHOCYTES % (AUTO) 13 % (12-44); MEAN CORPUSCULAR HEMOGLOBIN 35 pg (25-34); MEAN CORPUSCULAR HGB CONC 34 g/dL (32-36); MEAN CORPUSCULAR VOLUME 102 fL (80-99); MEAN PLATELET VOLUME 9.7 fL (9.0-12.2); MONOCYTES # (AUTO) 0.6 10^3/uL (0.0-1.0); MONOCYTES % (AUTO) 6 % (0-12); NEUTROPHILS # (AUTO) 7.8 10^3/uL (1.8-7.8); NEUTROPHILS % (AUTO) 78 % (42-75); PLATELET COUNT 145 10^3/uL (130-400)
[2022-12-21] MEDS: LACTATED RINGERS 1,000 ML 1,000 ML IV SCH (23:18)
[2022-12-21 23:25] LABS: ALBUMIN 3.8 GM/DL (3.2-4.5); CHLORIDE 100 MMOL/L (98-107); POTASSIUM 3.9 MMOL/L (3.6-5.0); SODIUM 136 MMOL/L (135-145)
[2022-12-21 23:27] LABS: CALCIUM 9.3 MG/DL (8.5-10.1); TRIGLYCERIDES 98 MG/DL (<150)
[2022-12-21 23:28] LABS: GLUCOSE 99 MG/DL (70-105)
[2022-12-21 23:29] LABS: CARBON DIOXIDE 23 MMOL/L (21-32)
[2022-12-21 23:30] LABS: BILIRUBIN,TOTAL 0.8 MG/DL (0.1-1.0)
[2022-12-21 23:31] LABS: ALKALINE PHOSPHATASE 101 U/L (40-136); PHOSPHORUS 2.7 MG/DL (2.3-4.7)
[2022-12-21 23:32] LABS: CREATININE SERUM 0.93 MG/DL (0.60-1.30); GFR ESTIMATED 90
[2022-12-21 23:33] LABS: BUN/CREATININE RATIO 9
[2022-12-21 23:34] LABS: ALANINE AMINOTRANSFERASE 23 U/L (0-55); MAGNESIUM 1.6 MG/DL (1.6-2.4)
[2022-12-22] MEDS: metroNIDAZOLE 500MG/100ML IVPB 100 ML IV SCH ×4 (00:08→21:30)
[2022-12-22] MEDS ORDERED: NS IV 500 ML 500 ML IV PRN (02:30)
[2022-12-22 02:43] VITALS: BP 101/77
[2022-12-22] MEDS: ceFAZolin INJECTION 2,000 MG in NS (IVPB) 50 ML 50 ML IV SCH ×3 (03:33→20:01)
--- NOTE | 2022-12-22 05:04 | Diagnostic Imaging Report ---
EXAMINATION: Chest radiograph TECHNIQUE: Portable upright view of the chest obtained. HISTORY: Intubation COMPARISON: Chest radiograph on 07/14/2022. FINDINGS: Endotracheal tube tip projects over the proximal trachea. Enteric tube tip projects beyond the [id number] within the stomach. Emphysema. Bibasilar and biapical scarring. Cardiac silhouette and pulmonary vascularity are within normal limits. No pleural effusion or pneumothorax. No acute osseous findings. IMPRESSION: Emphysema. No focal consolidation or swathi pulmonary edema. Endotracheal tube tip projects over the proximal trachea. Dictated by: Dictated on workstation # [id number]
[2022-12-22 05:10] LABS: HEMATOCRIT 40 % (40-54); HEMOGLOBIN 13.2 g/dL (13.3-17.7); MEAN CORPUSCULAR HEMOGLOBIN 34 pg (25-34); MEAN CORPUSCULAR HGB CONC 33 g/dL (32-36); MEAN CORPUSCULAR VOLUME 105 fL (80-99); MEAN PLATELET VOLUME 10.3 fL (9.0-12.2); PLATELET COUNT 147 10^3/uL (130-400); WHITE BLOOD COUNT 10.2 10^3/uL (4.3-11.0)
[2022-12-22 05:16] LABS: POTASSIUM 4.1 MMOL/L (3.6-5.0)
[2022-12-22 05:17] LABS: CALCIUM 8.8 MG/DL (8.5-10.1)
[2022-12-22 05:22] LABS: CREATININE SERUM 0.87 MG/DL (0.60-1.30)
[2022-12-22 05:24] LABS: MAGNESIUM 1.6 MG/DL (1.6-2.4)
[2022-12-22] MEDS: MAGNESIUM 1 GM/100 ML IVPB 100 ML IV SCH ×5 (05:38→09:52)
[2022-12-22] MEDS: POTASSIUM CL 10MEQ/50ML IVPB 50 ML IV SCH (05:38)
[2022-12-22] MEDS: POTASSIUM CHLORIDE 20 MEQ TABLET PO SCH (05:38)
[2022-12-22] MEDS ORDERED: MAGNESIUM 1 GM/100 ML IVPB 400 ML IV ONE (05:43)
[2022-12-22 06:01] LABS: ABG BASE EXCESS -0.6 MMOL/L (-2.5-2.5); ABG OXYGEN SATURATION 98 % (94-100); ABG PCO2 43 MMHG (35-45); ABG PH 7.37 (7.37-7.43); ABG PO2 89 MMHG (79-93); ABG TCO2 26.2 MMOL/L (21.0-31.0); INSPIRED O2 30%; VENTILATOR YES
[2022-12-22 06:36] VITALS: BP 104/69
--- NOTE | 2022-12-22 07:55 | Consultation-Cardiology ---
HPI-Cardiology Cardiology Consultation Date of Consultation 12/22/22 Date of Admission Time Seen by Provider: 07:49 Indication: Abdominal pain HPI 67-year-old gentleman with a history of coronary artery disease, admitted with severe abdominal pain, patient was scheduled for colonoscopy on aspirin and Xarelto were on hold in preparation for the procedure, did not do the prep, came into the emergency room and had a CT scan showed free air. Underwent exploratory laparotomy with Dr. Davis which showed gastric perforation. Patient is currently sedated and intubated. Unable to provide any history, history was obtained by reviewing his records Home Medications & Allergies Allergies: Coded Allergies: No Known Drug Allergies (Unverified , 03/17/12) Home Medication List Reviewed: Yes QLW-Obipht-Mmumoe Hx Patient Social History Marital Status: Employed/Student: employed Smoking Status: Current Everyday Smoker Type Used: Cigarettes 2nd Hand Smoke Exposure: Yes Recent Hopitalizations: No Alcohol Use?: Yes (daily) Immunizations Up To Date Tetanus Booster (TDap): Unknown Date of Pneumonia Vaccine: Oct 20, 2011 Date of Influenza Vaccine: Nov 15, 2020 Past Medical History Discussed below Family Medical History Significant Family History: Heart Disease, Cancer, Lung Disease Family History: Asthma 19 MOTHER Cancer of extrahepatic bile ducts 19 FATHER Diabetes mellitus G8 SISTER FH: COPD (chronic obstructive pulmonary disease) 19 MOTHER Review of Systems-General Review of Systems Constitutional: No chills, No diaphoresis EENTM: No blurred vision, No double vision Respiratory: No cough, No dyspnea on exertion Cardiovascular: No chest pain, No palpitations Gastrointestinal: abdominal pain (LUQ); No nausea, No vomiting Genitourinary: No decreased output, No discharge Musculoskeletal: No back pain, No joint pain Skin: No change in color, No change in hair/nails Psychiatric/Neurological: Denies Anxiety, Denies Depressed All Other Systems Reviewed Negative Unless Noted: Yes (Negative excepted noted.) Reviewed Test Results Reviewed Test Results Lab Laboratory Tests Test 12/21/22 18:50 12/21/22 22:58 12/21/22 23:05 12/22/22 04:57 Range/Units White Blood Count 9.4 10.0 10.2 4.3-11.0 10^3/uL Red Blood Count 4.17 L 4.26 L 3.84 L 4.30-5.52 10^6/uL Hemoglobin 14.3 14.7 13.2 L 13.3-17.7 g/dL Hematocrit 44 44 40 40-54 % Mean Corpuscular Volume 105 H 102 H 105 H 80-99 fL Mean Corpuscular Hemoglobin 34 35 H 34 25-34 pg Mean Corpuscular Hemoglobin Concent 33 34 33 32-36 g/dL Red Cell Distribution Width 14.6 H 14.6 H 14.4 10.0-14.5 % Platelet Count 177 145 147 130-400 10^3/uL Mean Platelet Volume 9.9 9.7 10.3 9.0-12.2 fL Immature Granulocyte % (Auto) 0 0 % Neutrophils (%) (Auto) 75 78 H 42-75 % Lymphocytes (%) (Auto) 14 13 12-44 % Monocytes (%) (Auto) 9 6 0-12 % Eosinophils (%) (Auto) 1 2 0-10 % Basophils (%) (Auto) 0 0 0-10 % Neutrophils # (Auto) 7.1 7.8 1.8-7.8 10^3/uL Lymphocytes # (Auto) 1.4 1.3 1.0-4.0 10^3/uL Monocytes # (Auto) 0.8 0.6 0.0-1.0 10^3/uL Eosinophils # (Auto) 0.1 0.2 0.0-0.3 10^3/uL Basophils # (Auto) 0.0 0.0 0.0-0.1 10^3/uL Immature Granulocyte # (Auto) 0.0 0.0 0.0-0.1 10^3/uL Prothrombin Time 13.8 12.2-14.7 SEC INR Comment 1.0 0.8-1.4 Activated Partial Thromboplast Time 29 24-35 SEC Sodium Level 136 136 136 135-145 MMOL/L Potassium Level 4.5 3.9 4.1 3.6-5.0 MMOL/L Chloride Level 99 100 102 98-107 MMOL/L Carbon Dioxide Level 25 23 21 21-32 MMOL/L Anion Gap 12 13 13 5-14 MMOL/L Blood Urea Nitrogen 9 8 9 7-18 MG/DL Creatinine 0.85 0.93 0.87 0.60-1.30 MG/DL Estimat Glomerular Filtration Rate 95 90 95 BUN/Creatinine Ratio 11 9 10 Glucose Level 104 99 118 H 70-105 MG/DL Calcium Level 9.7 9.3 8.8 8.5-10.1 MG/DL Corrected Calcium 9.7 9.5 8.5-10.1 MG/DL Magnesium Level 1.8 1.6 1.6 1.6-2.4 MG/DL Total Bilirubin 1.1 H 0.8 0.1-1.0 MG/DL Aspartate Amino Transf (AST/SGOT) 29 27 5-34 U/L Alanine Aminotransferase (ALT/SGPT) 25 23 0-55 U/L Alkaline Phosphatase 103 101 40-136 U/L Myoglobin 40.5 10.0-92.0 NG/ML Troponin I < 0.028 < 0.028 <0.028 NG/ML Total Protein 7.4 7.0 6.4-8.2 GM/DL Albumin 4.0 3.8 3.2-4.5 GM/DL Lipase 23 8-78 U/L Arterial Blood pH 7.41 7.37-7.43 Arterial Blood Partial Pressure CO2 42 35-45 MMHG Arterial Blood Partial Pressure O2 296 H 79-93 MMHG Arterial Blood HCO3 27 23-27 MMOL/L Arterial Blood Total CO2 27.9 21.0-31.0 MMOL/L Arterial Blood Oxygen Saturation 100 94-100 % Arterial Blood Base Excess 1.7 -2.5-2.5 MMOL/L Blood Gas Ventilator Setting YES Blood Gas Inspired Oxygen 100% Phosphorus Level 2.7 2.3-4.7 MG/DL Triglycerides Level 98 <150 MG/DL Test 12/22/22 05:22 Range/Units Arterial Blood pH 7.37 7.37-7.43 Arterial Blood Partial Pressure CO2 43 35-45 MMHG Arterial Blood Partial Pressure O2 89 79-93 MMHG Arterial Blood HCO3 25 23-27 MMOL/L Arterial Blood Total CO2 26.2 21.0-31.0 MMOL/L Arterial Blood Oxygen Saturation 98 94-100 % Arterial Blood Base Excess -0.6 -2.5-2.5 MMOL/L Blood Gas Ventilator Setting YES Blood Gas Inspired Oxygen 30% Physical Exam Physical Exam Vital Signs Vital Signs - First Documented 12/21/22 12/21/22 17:45 22:50 Temp 37.0 Pulse 54 Resp 18 B/P (MAP) 132/80 (97) Pulse Ox 92 O2 Delivery Room Air O2 Flow Rate 2.00 FiO2 100 Capillary Refill : Less Than 3 Seconds Height, Weight, BMI Height: 6'4.00" Weight: 154lbs. 2.0oz. [id number]; 23.17 BMI Method:Stated General Appearance: No Apparent Distress, Other (Sedated and intubated) Eyes: Bilateral Eye Normal Inspection, Bilateral Eye PERRL, Bilateral Eye EOMI HEENT: Normal ENT Inspection, Pharynx Normal Neck: Normal Inspection Respiratory: Chest Non Tender, Normal Breath Sounds, No Accessory Muscle Use, No Respiratory Distress Cardiovascular: No Edema, No Gallop, No JVD, No Murmur, Normal Peripheral Pulses, Irregularly Irregular Gastrointestinal: Abnormal Bowel Sounds Back: Normal Inspection Extremity: Normal Capillary Refill, Normal Inspection, No Pedal Edema Neurologic/Psychiatric: Other (Sedated and intubated) Skin: Normal Color, Warm/Dry Lymphatic: No Adenopathy A/P-Cardiology Admission Diagnosis Acute abdomen Acute respiratory failure Coronary artery disease Permanent atrial fibrillation Assessment/Plan Acute abdomen, gastric perforation, status post exploratory laparotomy done on December 21, 2022 Currently sedated and intubated Acute respiratory failure, ventilator dependent History of COPD with recurrent respiratory failure. Had multiple hospitalization in February and July 2022 Managed by primary care team Chronic permanent atrial fibrillation, heart rate better controlled since he started on BiPAP Maintained on Cardizem History of ablation in April [address] Godfrey, had multiple cardiac arrest and complex hospitalization in October 2017 Currently heart rate is controlled. Continue to monitor Coronary artery disease, history of stenting using 3.020 mm Promus stent to the right coronary artery done in March 2012. Stress test done on November 01, 2019 showing Baseline atrial fibrillation, decreased uptake involving the mid to apical inferior wall with no reversibility, ejection fraction 40 percent probably due to tachycardia. COPD, using oxygen at night, had a complex hospitalization with Legionella pneum onia and CMV, respiratory failure, multiple cardiac arrest in October 2017. loculated pneumonia underwent right lung decortication on January 28, 2018 resulted in hydropneumothorax and marked emphysema and had prolonged chest tube placement. History of congestive heart failure, chronic left ventricular systolic dysfunction. 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 Abdominal aortic aneurysm, had a stent placed by Dr. Hogue done in June 2021. Hypertension, continue to monitor. Hyperlipidemia, continue to monitor lipids Niraj, AIDAN PASTOR MD Dec 22, 2022 07:55
--- NOTE | 2022-12-22 08:04 | Tele-ICU Consult ---
History of Present Illness History of Present Illness Date Seen by Provider: Dec 22, 2022 Time Seen by Provider: 08:01 Date of Admission (Tele-ICU Physician , Progress Note ) Service provided via interactive audio and video telecommunications E-CARE system to a patient admitted to ICU bed in [facility]. Patient is seen today due to persistent need of ICU care Reason for Visit: Abdominal pain History of Present Illness Available chart/ vitals / labs / Images reviewed Video assessment done using teleICU camera, rest of exam as per RN 67 yo M came to ED with severe abd pain, found to have perforated gastric ulcer, went to OR yesterday, with partial gastric resection. Now intubated on AC16, Vt 470, FIO2 30% with SpO2 100%, On IV Propofol @ 10 and Fentanyl @ 30, able to follow commands. ABG 7.37/43/89, not much secretions, good cough On IV Flagyl, IV Cefazolin, IV fluconazole Lab about same WBC 10k, Hb 13, coagulation ok, Cr 0.87/BUN9 PMH AAA repair COPD CHF a fib, Allergies and Home Medications Allergies Coded Allergies: No Known Drug Allergies (Unverified , 03/17/12) Home Medications Albuterol Sulfate 18 Gm Hfa.aer.ad, 2 PUFF INH Q6H PRN for SHORTNESS OF BREATH, (Reported) Aspirin 81 Mg Tablet.dr, 81 MG PO DAILY Prescribed by: STAR KUMARI on 07/18/22 1144 Atorvastatin Calcium 10 Mg Tablet, 10 MG PO DAILY, (Reported) LAST FILLED 01-15-2022 #90/90 DAY SUPPLY Budesonide/Glycopyr/Formoterol 10.7 Gm Hfa.aer.ad, 2 PUFF INH BID, (Reported) Digoxin 125 Mcg (0.125 Mg) Tablet, 125 MCG PO DAILY, (Reported) Diltiazem HCl 240 Mg Tab.er.24h, 240 MG PO BID, (Reported) Folic Acid 1 Mg Tablet, 1 MG PO DAILY Prescribed by: STAR KUMARI on 07/18/22 1144 Hydroxyzine HCl 10 Mg Tablet, 10 MG PO Q6H PRN for ANXIETY Prescribed by: STAR KUMARI on 07/18/22 1144 Ipratropium/Albuterol Sulfate 0.5 Mg-3 Mg (2.5 Mg Base)/3 Ml Ampul.neb, 3 ML INH RTQ4HR Prescribed by: STAR KUMARI on 07/18/22 1144 Magnesium Oxide 400 Mg (241.3 Mg Magnesium) Tablet, 400 MG PO BID Prescribed by: STAR KUMARI on 07/18/22 1144 Metoprolol Tartrate 25 Mg Tablet, 25 MG PO BID Prescribed by: STAR KUMARI on 07/18/22 1144 Multivitamin/Iron/Folic Acid 18 Mg Iron-400 Mcg Tablet, 1 EA PO DAILY@0700 Prescribed by: STAR KUMARI on 07/18/22 1144 Pantoprazole Sodium 40 Mg Tablet.dr, 40 MG PO DAILY, (Reported) Rivaroxaban 20 Mg Tablet, 20 MG PO DAILY, (Reported) Roflumilast 500 Mcg Tablet, 500 MCG PO DAILY, (Reported) Past Medical/Social/Family Hx Patient Social History Marrital Status: Employed/Student: employed Smoking Status: Current Everyday Smoker Alcohol Use?: Yes (daily) Immunizations Up To Date Influenza Vaccine Up-to-Date: No; Not Current First/Initial COVID19 Vaccinat: 2020 Second COVID19 Vaccination Raphael: 2020 Tetanus Booster (TDap): Unknown Hepatitis A: No Hepatitis B: No TB Skin Test: None Date of Pneumonia Vaccine: Oct 20, 2011 Current Status Communicates: Verbally Primary Language: Salvadorean Preferred Spoken Language: Salvadorean Past Medical History PMHx: A fib 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, prolonged ventilator, rescucitated x 2 course Hypertension Hyperlipidemia SurgHx: Aortic aneurysm stenting A fib ablation Coronary artery stenting Pleurodesis x 2 Left elbow surgery Right knee arthroscopy Review of Systems Constitutional: see HPI EENTM: see HPI Respiratory: see HPI Cardiovascular: see HPI Gastrointestinal: see HPI Genitourinary: see HPI Musculoskeletal: see HPI Skin: see HPI Psychiatric/Neurological: See HPI Focused Exam Height, Weight, BMI Height: 6'4.00" Weight: 154lbs. 2.0oz. 69.212073vr; 23.17 BMI Method:Stated Exam Exam Patient acknowledged, consented, and participated in this virtual visit which was conducted using real time audio/video Vital Signs Date Time Temp Pulse Resp B/P (MAP) Pulse Ox O2 Delivery O2 Flow Rate FiO2 12/22/22 07:15 93 12/22/22 07:00 90 16 108/72 (84) 100 Mechanical Ventilator 40.00 12/22/22 06:50 95 16 106/74 (83) 100 Mechanical Ventilator 40.00 12/22/22 06:40 100 16 116/70 (79) 100 Mechanical Ventilator 40.00 12/22/22 06:36 87 16 100 30 12/22/22 06:30 97 16 104/69 (77) 100 Mechanical Ventilator 40.00 12/22/22 06:20 90 16 94/69 (73) 100 Mechanical Ventilator 40.00 12/22/22 06:10 98 16 96/62 (80) 100 Mechanical Ventilator 40.00 12/22/22 06:00 96 16 108/62 (80) 100 Mechanical Ventilator 40.00 12/22/22 05:50 105 16 111/76 (86) 100 Mechanical Ventilator 40.00 12/22/22 05:40 87 16 118/77 (86) 100 Mechanical Ventilator 40.00 12/22/22 05:30 98 16 127/79 (99) 100 Mechanical Ventilator 40.00 12/22/22 05:20 95 16 121/80 (109) 100 Mechanical Ventilator 40.00 12/22/22 05:10 81 16 115/80 (91) 100 Mechanical Ventilator 40.00 12/22/22 05:00 84 16 124/85 (98) 100 Mechanical Ventilator 40.00 12/22/22 04:50 93 16 102/77 (86) 100 Mechanical Ventilator 40.00 12/22/22 04:40 90 16 116/76 (89) 100 Mechanical Ventilator 40.00 12/22/22 04:30 93 16 114/69 (85) 100 Mechanical Ventilator 40.00 12/22/22 04:20 81 16 112/76 (93) Mechanical Ventilator 40.00 12/22/22 04:18 35.3 12/22/22 04:17 99 Mechanical Ventilator 30 12/22/22 04:10 97 16 108/74 (90) 100 Mechanical Ventilator 40.00 12/22/22 04:00 84 16 117/83 (96) 100 Mechanical Ventilator 40.00 12/22/22 03:40 84 16 108/69 (82) 100 Mechanical Ventilator 40.00 12/22/22 03:36 68 112/68 12/22/22 03:35 86 112/68 12/22/22 03:30 84 16 112/68 (82) 100 Mechanical Ventilator 40.00 12/22/22 03:20 78 16 111/72 (89) 100 Mechanical Ventilator 40.00 12/22/22 03:10 77 16 112/70 (85) 100 Mechanical Ventilator 40.00 12/22/22 03:00 81 16 106/77 (85) 100 Mechanical Ventilator 40.00 12/22/22 02:50 76 16 123/79 (93) 98 Mechanical Ventilator 40.00 12/22/22 02:43 77 16 100 40 12/22/22 02:40 84 16 101/78 (86) 100 Mechanical Ventilator 40.00 12/22/22 02:30 82 16 91/56 (74) 100 Mechanical Ventilator 40.00 12/22/22 02:20 85 17 93/63 (70) 100 Mechanical Ventilator 40.00 12/22/22 02:10 87 17 90/64 (72) 100 Mechanical Ventilator 40.00 12/22/22 02:00 86 17 86/63 (71) 100 Mechanical Ventilator 40.00 12/22/22 01:50 89 16 85/61 (70) 100 Mechanical Ventilator 40.00 12/22/22 01:40 90/55 (67) 12/22/22 01:30 92 16 87/66 (73) 100 Mechanical Ventilator 40.00 12/22/22 01:20 90 16 101/64 (73) 100 Mechanical Ventilator 40.00 12/22/22 01:10 90 16 103/71 (82) 100 Mechanical Ventilator 40.00 12/22/22 01:00 112/67 (77) 12/22/22 01:00 101 12/22/22 00:50 90 16 77/62 (68) 95 Mechanical Ventilator 40.00 12/22/22 00:40 90 16 95/78 (83) 94 Mechanical Ventilator 40.00 12/22/22 00:30 88 16 102/69 (77) 94 Mechanical Ventilator 40.00 12/22/22 00:20 101 16 111/77 (84) 94 Mechanical Ventilator 40.00 12/22/22 00:10 114 16 136/102 (107) 94 Mechanical Ventilator 40.00 12/22/22 00:05 35.6 12/22/22 00:00 114 16 133/94 (102) 94 Mechanical Ventilator 40.00 12/21/22 23:59 99 Mechanical Ventilator 40 12/21/22 23:50 112 16 146/104 (118) 100 Mechanical Ventilator 40.00 12/21/22 23:40 103 16 155/91 (109) 100 Mechanical Ventilator 40.00 12/21/22 23:30 94 15 156/104 (123) 100 Mechanical Ventilator 46.00 12/21/22 23:20 36.2 76 16 154/84 (111) 100 Mechanical Ventilator 46.00 12/21/22 23:20 68 12/21/22 23:17 79 16 100 Mechanical Ventilator 40.00 12/21/22 23:16 40 12/21/22 23:15 75 16 100 Mechanical Ventilator 100.00 12/21/22 23:09 62 157/89 12/21/22 23:08 62 157/89 12/21/22 23:00 36.6 16 157/89 (111) 100 Mechanical Ventilator 12/21/22 23:00 Mechanical Ventilator 12/21/22 22:55 Mechanical Ventilator 12/21/22 22:50 16 136/109 (118) 100 Mechanical Ventilator 12/21/22 22:50 87 100 100 12/21/22 22:46 Mechanical Ventilator 12/21/22 22:40 16 166/89 (114) 100 Mechanical Ventilator 12/21/22 22:35 Mechanical Ventilator 12/21/22 22:30 16 164/96 (118) 98 Mechanical Ventilator 12/21/22 22:25 Mechanical Ventilator 12/21/22 22:20 36.5 16 166/102 (123) 100 Mechanical Ventilator 12/21/22 22:20 Mechanical Ventilator 12/21/22 20:37 68 18 131/69 96 Nasal Cannula 2.00 12/21/22 17:45 92 Nasal Cannula 2.00 12/21/22 17:45 37.0 54 18 132/80 (97) 92 Room Air I & O 12/22/22 07:00 Intake Total 300 ml Output Total 480 ml Balance -180 ml Height & Weight Height: 6'4.00" Weight: 154lbs. 2.0oz. 69.499826eo; 23.17 BMI Method:Stated General Appearance: No Apparent Distress, Other (Sedated and intubated) HEENT: Normal ENT Inspection, Pharynx Normal Neck: Normal Inspection Respiratory: Chest Non Tender, Lungs Clear, Normal Breath Sounds, No Accessory Muscle Use, No Respiratory Distress Cardiovascular: No Edema, No Gallop, No JVD, No Murmur, Normal Peripheral Pulses, Irregularly Irregular Capillary Refill: Less Than 3 Seconds Gastrointestinal: normal bowel sounds, non tender, soft, no organomegaly, other (hypoactive BS, slight amount of weeping at surg site, no drains in) Extremity: Normal Capillary Refill, Normal Inspection, No Pedal Edema Neurologic/Psychiatric: Other (Sedated and intubated) Skin: Normal Color, Warm/Dry Lymphatic: No Adenopathy Results Lab Laboratory Tests 12/21/22 18:50 12/21/22 23:05 12/22/22 04:57 Assessment/Plan Assessment/Plan s/p repair of gastric perforation, on vent Dimitri lower sedation and try to wean, extubate has cough and is awake, can lower sedation will try SBT Critical Care: Ventilator Management Time spent with patient (mins): 25 VIGNESH SPEAR MD Dec 22, 2022 08:03
--- NOTE | 2022-12-22 08:36 | Progress Note - Surgery ---
NEMESIO HODGSON 12/22/22 0836: Subjective Date Seen by a Provider: Dec 22, 2022 Time Seen by a Provider: 07:05 Subjective/Events-last exam Pt is intubated and conscious. Pt is having pain at surgical incision sites. Incisions have no erythema, swelling, or pus. Review of Systems General: No Chills, No Night Sweats HEENT: No Head Aches, No Visual Changes Pulmonary: No Dyspnea, No Cough Cardiovascular: No: Chest Pain, Palpitations Gastrointestinal: Abdominal Pain; No: Nausea, Vomiting Genitourinary: No Dysuria, No Frequency Musculoskeletal: No: neck pain, shoulder pain Neurological: No: Weakness, Numbness Objective Exam Vital Signs Date Time Temp Pulse Resp B/P (MAP) Pulse Ox O2 Delivery O2 Flow Rate FiO2 12/22/22 08:00 89 16 117/70 (86) 100 Mechanical Ventilator 40.00 12/22/22 07:15 93 12/22/22 07:00 90 16 108/72 (84) 100 Mechanical Ventilator 40.00 12/22/22 06:50 95 16 106/74 (83) 100 Mechanical Ventilator 40.00 12/22/22 06:40 100 16 116/70 (79) 100 Mechanical Ventilator 40.00 12/22/22 06:36 87 16 100 30 12/22/22 06:30 97 16 104/69 (77) 100 Mechanical Ventilator 40.00 12/22/22 06:20 90 16 94/69 (73) 100 Mechanical Ventilator 40.00 12/22/22 06:10 98 16 96/62 (80) 100 Mechanical Ventilator 40.00 12/22/22 06:00 96 16 108/62 (80) 100 Mechanical Ventilator 40.00 12/22/22 05:50 105 16 111/76 (86) 100 Mechanical Ventilator 40.00 12/22/22 05:40 87 16 118/77 (86) 100 Mechanical Ventilator 40.00 12/22/22 05:30 98 16 127/79 (99) 100 Mechanical Ventilator 40.00 12/22/22 05:20 95 16 121/80 (109) 100 Mechanical Ventilator 40.00 12/22/22 05:10 81 16 115/80 (91) 100 Mechanical Ventilator 40.00 12/22/22 05:00 84 16 124/85 (98) 100 Mechanical Ventilator 40.00 12/22/22 04:50 93 16 102/77 (86) 100 Mechanical Ventilator 40.00 12/22/22 04:40 90 16 116/76 (89) 100 Mechanical Ventilator 40.00 12/22/22 04:30 93 16 114/69 (85) 100 Mechanical Ventilator 40.00 12/22/22 04:20 81 16 112/76 (93) Mechanical Ventilator 40.00 12/22/22 04:18 35.3 12/22/22 04:17 99 Mechanical Ventilator 30 12/22/22 04:10 97 16 108/74 (90) 100 Mechanical Ventilator 40.00 12/22/22 04:00 84 16 117/83 (96) 100 Mechanical Ventilator 40.00 12/22/22 03:40 84 16 108/69 (82) 100 Mechanical Ventilator 40.00 12/22/22 03:36 68 112/68 12/22/22 03:35 86 112/68 12/22/22 03:30 84 16 112/68 (82) 100 Mechanical Ventilator 40.00 12/22/22 03:20 78 16 111/72 (89) 100 Mechanical Ventilator 40.00 12/22/22 03:10 77 16 112/70 (85) 100 Mechanical Ventilator 40.00 12/22/22 03:00 81 16 106/77 (85) 100 Mechanical Ventilator 40.00 12/22/22 02:50 76 16 123/79 (93) 98 Mechanical Ventilator 40.00 12/22/22 02:43 77 16 100 40 12/22/22 02:40 84 16 101/78 (86) 100 Mechanical Ventilator 40.00 12/22/22 02:30 82 16 91/56 (74) 100 Mechanical Ventilator 40.00 12/22/22 02:20 85 17 93/63 (70) 100 Mechanical Ventilator 40.00 12/22/22 02:10 87 17 90/64 (72) 100 Mechanical Ventilator 40.00 12/22/22 02:00 86 17 86/63 (71) 100 Mechanical Ventilator 40.00 12/22/22 01:50 89 16 85/61 (70) 100 Mechanical Ventilator 40.00 12/22/22 01:40 90/55 (67) 12/22/22 01:30 92 16 87/66 (73) 100 Mechanical Ventilator 40.00 12/22/22 01:20 90 16 101/64 (73) 100 Mechanical Ventilator 40.00 12/22/22 01:10 90 16 103/71 (82) 100 Mechanical Ventilator 40.00 12/22/22 01:00 112/67 (77) 12/22/22 01:00 101 12/22/22 00:50 90 16 77/62 (68) 95 Mechanical Ventilator 40.00 12/22/22 00:40 90 16 95/78 (83) 94 Mechanical Ventilator 40.00 12/22/22 00:30 88 16 102/69 (77) 94 Mechanical Ventilator 40.00 12/22/22 00:20 101 16 111/77 (84) 94 Mechanical Ventilator 40.00 12/22/22 00:10 114 16 136/102 (107) 94 Mechanical Ventilator 40.00 12/22/22 00:05 35.6 12/22/22 00:00 114 16 133/94 (102) 94 Mechanical Ventilator 40.00 12/21/22 23:59 99 Mechanical Ventilator 40 12/21/22 23:50 112 16 146/104 (118) 100 Mechanical Ventilator 40.00 12/21/22 23:40 103 16 155/91 (109) 100 Mechanical Ventilator 40.00 12/21/22 23:30 94 15 156/104 (123) 100 Mechanical Ventilator 46.00 12/21/22 23:20 36.2 76 16 154/84 (111) 100 Mechanical Ventilator 46.00 12/21/22 23:20 68 12/21/22 23:17 79 16 100 Mechanical Ventilator 40.00 12/21/22 23:16 40 12/21/22 23:15 75 16 100 Mechanical Ventilator 100.00 12/21/22 23:09 62 157/89 12/21/22 23:08 62 157/89 12/21/22 23:00 36.6 16 157/89 (111) 100 Mechanical Ventilator 12/21/22 23:00 Mechanical Ventilator 12/21/22 22:55 Mechanical Ventilator 12/21/22 22:50 16 136/109 (118) 100 Mechanical Ventilator 12/21/22 22:50 87 100 100 12/21/22 22:46 Mechanical Ventilator 12/21/22 22:40 16 166/89 (114) 100 Mechanical Ventilator 12/21/22 22:35 Mechanical Ventilator 12/21/22 22:30 16 164/96 (118) 98 Mechanical Ventilator 12/21/22 22:25 Mechanical Ventilator 12/21/22 22:20 36.5 16 166/102 (123) 100 Mechanical Ventilator 12/21/22 22:20 Mechanical Ventilator 12/21/22 20:37 68 18 131/69 96 Nasal Cannula 2.00 12/21/22 17:45 92 Nasal Cannula 2.00 12/21/22 17:45 37.0 54 18 132/80 (97) 92 Room Air I & O 12/22/22 07:00 Intake Total 300 ml Output Total 480 ml Balance -180 ml Capillary Refill : Less Than 3 Seconds General Appearance: No Apparent Distress, Other (Sedated and intubated) HEENT: Normal ENT Inspection, Pharynx Normal Neck: Normal Inspection Respiratory: Chest Non Tender, Normal Breath Sounds, No Accessory Muscle Use, No Respiratory Distress Cardiovascular: No Edema, No Gallop, No JVD, No Murmur, Normal Peripheral Pulses, Irregularly Irregular Gastrointestinal: soft, no organomegaly, abnormal bowel sounds (hypoactive), tenderness (at surgical incision sites) Extremity: Normal Capillary Refill, Normal Inspection, No Pedal Edema Neurologic/Psychiatric: Other (Intubated and conscious ) Skin: Normal Color, Warm/Dry Lymphatic: No Adenopathy Results Lab Laboratory Tests 12/21/22 18:50: White Blood Count 9.4, Red Blood Count 4.17L, Hemoglobin 14.3, Hematocrit 44, Mean Corpuscular Volume 105H, Mean Corpuscular Hemoglobin 34, Mean Corpuscular Hemoglobin Concent 33, Red Cell Distribution Width 14.6H, Platelet Count 177, Mean Platelet Volume 9.9, Immature Granulocyte % (Auto) 0, Neutrophils (%) (Auto) 75, Lymphocytes (%) (Auto) 14, Monocytes (%) (Auto) 9, Eosinophils (%) (Auto) 1, Basophils (%) (Auto) 0, Neutrophils # (Auto) 7.1, Lymphocytes # (Auto) 1.4, Monocytes # (Auto) 0.8, Eosinophils # (Auto) 0.1, Basophils # (Auto) 0.0, Immature Granulocyte # (Auto) 0.0, Prothrombin Time 13.8, INR Comment 1.0, Activated Partial Thromboplast Time 29, Sodium Level 136, Potassium Level 4.5, Chloride Level 99, Carbon Dioxide Level 25, Anion Gap 12, Blood Urea Nitrogen 9, Creatinine 0.85, Estimat Glomerular Filtration Rate 95, BUN/Creatinine Ratio 11, Glucose Level 104, Calcium Level 9.7, Corrected Calcium 9.7, Magnesium Level 1.8, Total Bilirubin 1.1H, Aspartate Amino Transf (AST/SGOT) 29, Alanine Aminotransferase (ALT/SGPT) 25, Alkaline Phosphatase 103, Myoglobin 40.5, Troponin I < 0.028, Total Protein 7.4, Albumin 4.0, Lipase 23 12/21/22 22:58: Arterial Blood pH 7.41, Arterial Blood Partial Pressure CO2 42, Arterial Blood Partial Pressure O2 296H, Arterial Blood HCO3 27, Arterial Blood Total CO2 27.9, Arterial Blood Oxygen Saturation 100, Arterial Blood Base Excess 1.7, Blood Gas Ventilator Setting YES, Blood Gas Inspired Oxygen 100% 12/21/22 23:05: White Blood Count 10.0, Red Blood Count 4.26L, Hemoglobin 14.7, Hematocrit 44, Mean Corpuscular Volume 102H, Mean Corpuscular Hemoglobin 35H, Mean Corpuscular Hemoglobin Concent 34, Red Cell Distribution Width 14.6H, Platelet Count 145, Mean Platelet Volume 9.7, Immature Granulocyte % (Auto) 0, Neutrophils (%) (Auto) 78H, Lymphocytes (%) (Auto) 13, Monocytes (%) (Auto) 6, Eosinophils (%) (Auto) 2, Basophils (%) (Auto) 0, Neutrophils # (Auto) 7.8, Lymphocytes # (Auto) 1.3, Monocytes # (Auto) 0.6, Eosinophils # (Auto) 0.2, Basophils # (Auto) 0.0, Immature Granulocyte # (Auto) 0.0, Sodium Level 136, Potassium Level 3.9, Chloride Level 100, Carbon Dioxide Level 23, Anion Gap 13, Blood Urea Nitrogen 8, Creatinine 0.93, Estimat Glomerular Filtration Rate 90, BUN/Creatinine Ratio 9, Glucose Level 99, Calcium Level 9.3, Corrected Calcium 9.5, Magnesium Level 1.6, Total Bilirubin 0.8, Aspartate Amino Transf (AST/SGOT) 27, Alanine Aminotransferase (ALT/SGPT) 23, Alkaline Phosphatase 101, Troponin I < 0.028, Total Protein 7.0, Albumin 3.8, Phosphorus Level 2.7, Triglycerides Level 98 12/22/22 04:57: White Blood Count 10.2, Red Blood Count 3.84L, Hemoglobin 13.2L, Hematocrit 40, Mean Corpuscular Volume 105H, Mean Corpuscular Hemoglobin 34, Mean Corpuscular Hemoglobin Concent 33, Red Cell Distribution Width 14.4, Platelet Count 147, Mean Platelet Volume 10.3, Sodium Level 136, Potassium Level 4.1, Chloride Level 102, Carbon Dioxide Level 21, Anion Gap 13, Blood Urea Nitrogen 9, Creatinine 0.87, Estimat Glomerular Filtration Rate 95, BUN/Creatinine Ratio 10, Glucose Level 118H, Calcium Level 8.8, Magnesium Level 1.6 12/22/22 05:22: Arterial Blood pH 7.37, Arterial Blood Partial Pressure CO2 43, Arterial Blood Partial Pressure O2 89, Arterial Blood HCO3 25, Arterial Blood Total CO2 26.2, Arterial Blood Oxygen Saturation 98, Arterial Blood Base Excess -0.6, Blood Gas Ventilator Setting YES, Blood Gas Inspired Oxygen 30% Assessment/Plan Assessment/Plan Assessment/Plan luq abdominal pain hollow viscus perforation halfway anticoagulation/antiplatelet Chronic EtOH use NPO Fluids Pain medication Observe in ICU [facility] Cardiology will consult Dr. Douglass. Consult medicine. Hold Anticoagulation/antiplatelet BRYON KHALIL DO 12/22/222141: Subjective Subjective/Events-last exam Patient extubated this morning. Pain tolerable but not episode where not controlled yet. NG tube in place. Woods with adequate urine output. Denies n/v fever sweats chills shortness of breath or chest pain. Objective Exam General Appearance: No Apparent Distress, Other (ng tube in place.) HEENT: PERRL/EOMI, Normal ENT Inspection Neck: Normal Inspection, Non Tender, Supple Respiratory: Chest Non Tender, No Accessory Muscle Use, No Respiratory Distress Cardiovascular: No JVD, Irregularly Irregular Gastrointestinal: soft, tenderness (no signs of infection , some subcutaneous emphysema around incision.) Neurologic/Psychiatric: Alert, Oriented x3, Other Skin: Normal Color, Warm/Dry Lymphatic: No Adenopathy Assessment/Plan Assessment/Plan Assessment/Plan luq abdominal pain hollow viscus perforation s/p ex lap with partial gastrectomy halfway anticoagulation/antiplatelet Chronic EtOH use NPO Fluids Pain medication Observe in ICU [facility] Cardiology will consult Dr. Douglass. Consult medicine. Hold Anticoagulation/antiplatelet Will yisel woods Supervisory-Addendum Brief Verification & Attestation Participated in pt care: history, MDM, physical Personally performed: exam, history, MDM, supervision of care Care discussed with: Medical Student Procedures: n/a Results interpretation: Verified all documentation Verification and Attestation of Medical Student E/M Service A medical student performed and documented this service in my presence. I reviewed and verified all information documented by the medical student and made modifications to such information, when appropriate. I personally performed the physical exam and medical decision making. Bryon Khalil, Dec 22, 2022,21:41 NEMESIO HODGSON Dec 22, 2022 08:36 BRYON KHALIL DO Dec 22, 2022 21:42
[2022-12-22] MEDS: LACTATED RINGERS 1,000 ML 1,000 ML IV SCH ×4 (08:59→23:41)
[2022-12-22 09:41] VITALS: BP 112/75
[2022-12-22] MEDS: PANTOPRAZOLE INJECTION 40 MG VIAL IV SCH ×2 (09:52→20:01)
--- NOTE | 2022-12-22 10:56 | History & Physical ---
HPI History of Present Illness: 67 yo male admitted after coming to ER with abdominal pain and having CT that showed large free air in abdomen. He underwent exploratory laparoscopy and found to have gastric perforation and partial gastrectomy was done last night. This morning he is still intubated, is alert but unable to give history due to ventilator status. Source: old records Exam Limitations: clinical condition Date seen by provider: Dec 22, 2022 Time Seen by Provider: 09:00 Attending Physician [facility] PCP Admitting Physician: Crow Davis DO Attending Physician: Crow Davis DO Consult Date of Admission Dec 21, 2022 at 22:20 Home Medications Home Medications Reviewed patient Home Medication Reconciliation performed by pharmacy medication reconciliations milking machine technician and/or nursing. Patients Allergies have been reviewed. 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84 L 4.30-5.52 10^6/uL Hemoglobin 14.3 14.7 13.2 L 13.3-17.7 g/dL Hematocrit 44 44 40 40-54 % Mean Corpuscular Volume 105 H 102 H 105 H 80-99 fL Mean Corpuscular Hemoglobin 34 35 H 34 25-34 pg Mean Corpuscular Hemoglobin Concent 33 34 33 32-36 g/dL Red Cell Distribution Width 14.6 H 14.6 H 14.4 10.0-14.5 % Platelet Count 177 145 147 130-400 10^3/uL Mean Platelet Volume 9.9 9.7 10.3 9.0-12.2 fL Immature Granulocyte % (Auto) 0 0 % Neutrophils (%) (Auto) 75 78 H 42-75 % Lymphocytes (%) (Auto) 14 13 12-44 % Monocytes (%) (Auto) 9 6 0-12 % Eosinophils (%) (Auto) 1 2 0-10 % Basophils (%) (Auto) 0 0 0-10 % Neutrophils # (Auto) 7.1 7.8 1.8-7.8 10^3/uL Lymphocytes # (Auto) 1.4 1.3 1.0-4.0 10^3/uL Monocytes # (Auto) 0.8 0.6 0.0-1.0 10^3/uL Eosinophils # (Auto) 0.1 0.2 0.0-0.3 10^3/uL Basophils # (Auto) 0.0 0.0 0.0-0.1 10^3/uL Immature Granulocyte # (Auto) 0.0 0.0 0.0-0.1 10^3/uL Prothrombin Time 13.8 12.2-14.7 SEC INR Comment 1.0 0.8-1.4 Activated Partial Thromboplast Time 29 24-35 SEC Sodium Level 136 136 136 135-145 MMOL/L Potassium Level 4.5 3.9 4.1 3.6-5.0 MMOL/L Chloride Level 99 100 102 98-107 MMOL/L Carbon Dioxide Level 25 23 21 21-32 MMOL/L Anion Gap 12 13 13 5-14 MMOL/L Blood Urea Nitrogen 9 8 9 7-18 MG/DL Creatinine 0.85 0.93 0.87 0.60-1.30 MG/DL Estimat Glomerular Filtration Rate 95 90 95 BUN/Creatinine Ratio 11 9 10 Glucose Level 104 99 118 H 70-105 MG/DL Calcium Level 9.7 9.3 8.8 8.5-10.1 MG/DL Corrected Calcium 9.7 9.5 8.5-10.1 MG/DL Magnesium Level 1.8 1.6 1.6 1.6-2.4 MG/DL Total Bilirubin 1.1 H 0.8 0.1-1.0 MG/DL Aspartate Amino Transf (AST/SGOT) 29 27 5-34 U/L Alanine Aminotransferase (ALT/SGPT) 25 23 0-55 U/L Alkaline Phosphatase 103 101 40-136 U/L Myoglobin 40.5 10.0-92.0 NG/ML Troponin I < 0.028 < 0.028 <0.028 NG/ML Total Protein 7.4 7.0 6.4-8.2 GM/DL Albumin 4.0 3.8 3.2-4.5 GM/DL Lipase 23 8-78 U/L Arterial Blood pH 7.41 7.37-7.43 Arterial Blood Partial Pressure CO2 42 35-45 MMHG Arterial Blood Partial Pressure O2 296 H 79-93 MMHG Arterial Blood HCO3 27 23-27 MMOL/L Arterial Blood Total CO2 27.9 21.0-31.0 MMOL/L Arterial Blood Oxygen Saturation 100 94-100 % Arterial Blood Base Excess 1.7 -2.5-2.5 MMOL/L Blood Gas Ventilator Setting YES Blood Gas Inspired Oxygen 100% Phosphorus Level 2.7 2.3-4.7 MG/DL Triglycerides Level 98 <150 MG/DL Test 12/22/22 05:22 Range/Units Arterial Blood pH 7.37 7.37-7.43 Arterial Blood Partial Pressure CO2 43 35-45 MMHG Arterial Blood Partial Pressure O2 89 79-93 MMHG Arterial Blood HCO3 25 23-27 MMOL/L Arterial Blood Total CO2 26.2 21.0-31.0 MMOL/L Arterial Blood Oxygen Saturation 98 94-100 % Arterial Blood Base Excess -0.6 -2.5-2.5 MMOL/L Blood Gas Ventilator Setting YES Blood Gas Inspired Oxygen 30% Radiology CT abd/pelvis: IMPRESSION: 1. Large volume of intra-abdominal free air of uncertain etiology but concerning for hollow viscus perforation. There are a few foci along the left upper quadrant near the stomach which could suggest perforated ulceration. 2. 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 No dissection or significant stenosis. 3. COPD without other acute abnormality in the chest. CXR: IMPRESSION: Emphysema. No focal consolidation or swathi pulmonary edema. Endotracheal tube tip projects over the proximal trachea. Physical Exam-([facility]) Physical Exam Vital Signs VS - Last 72 Hours, by Label 12/21/22 12/21/22 12/21/22 12/21/22 17:45 17:45 20:37 22:20 Temp 37.0 Pulse 54 68 Resp 18 18 B/P (MAP) 132/80 (97) 131/69 Pulse Ox 92 92 96 O2 Delivery Room Air Nasal Cannula Nasal Cannula Mechanical Ventilator O2 Flow Rate 2.00 2.00 12/21/22 12/21/22 12/21/22 12/21/22 22:20 22:25 22:30 22:35 Temp 36.5 Resp 16 16 B/P (MAP) 166/102 (123) 164/96 (118) Pulse Ox 100 98 O2 Delivery Mechanical Ventilator Mechanical Ventilator Mechanical Ventilator Mechanical Ventilator 12/21/22 12/21/22 12/21/22 12/21/22 22:40 22:46 22:50 22:50 Pulse 87 Resp 16 16 B/P (MAP) 166/89 (114) 136/109 (118) Pulse Ox 100 100 100 O2 Delivery Mechanical Ventilator Mechanical Ventilator Mechanical Ventilator FiO2 100 12/21/22 12/21/22 12/21/22 12/21/22 22:55 23:00 23:00 23:08 Temp 36.6 Pulse 62 Resp 16 B/P (MAP) 157/89 (111) 157/89 Pulse Ox 100 O2 Delivery Mechanical Ventilator Mechanical Ventilator Mechanical Ventilator 12/21/22 12/21/22 12/21/22 12/21/22 23:09 23:15 23:16 23:17 Pulse 62 75 79 Resp 16 16 B/P (MAP) 157/89 Pulse Ox 100 100 O2 Delivery Mechanical Ventilator Mechanical Ventilator O2 Flow Rate 100.00 40.00 FiO2 40 12/21/22 12/21/22 12/21/22 12/21/22 23:20 23:20 23:30 23:40 Temp 36.2 Pulse 68 76 94 103 Resp 16 15 16 B/P (MAP) 154/84 (111) 156/104 (123) 155/91 (109) Pulse Ox 100 100 100 O2 Delivery Mechanical Ventilator Mechanical Ventilator Mechanical Ventilator O2 Flow Rate 46.00 46.00 40.00 11/08/0712/21/22 12/22/22 12/22/22 23:50 23:59 00:00 00:05 Temp 35.6 Pulse 112 114 Resp 16 16 B/P (MAP) 146/104 (118) 133/94 (102) Pulse Ox 100 99 94 O2 Delivery Mechanical Ventilator Mechanical Ventilator Mechanical Ventilator O2 Flow Rate 40.00 40.00 FiO2 40 12/22/22 12/22/22 12/22/22 12/22/22 00:10 00:20 00:30 00:40 Pulse 114 101 88 90 Resp 16 16 16 16 B/P (MAP) 136/102 (107) 111/77 (84) 102/69 (77) 95/78 (83) Pulse Ox 94 94 94 94 O2 Delivery Mechanical Ventilator Mechanical Ventilator Mechanical Ventilator Mechanical Ventilator O2 Flow Rate 40.00 40.00 40.00 40.00 12/22/22 12/22/22 12/22/22 12/22/22 00:50 01:00 01:00 01:10 Pulse 90 101 90 Resp 16 16 B/P (MAP) 77/62 (68) 112/67 (77) 103/71 (82) Pulse Ox 95 100 O2 Delivery Mechanical Ventilator Mechanical Ventilator O2 Flow Rate 40.00 40.00 12/22/22 12/22/22 12/22/22 12/22/22 01:20 01:30 01:40 01:50 Pulse 90 92 89 Resp 16 16 16 B/P (MAP) 101/64 (73) 87/66 (73) 90/55 (67) 85/61 (70) Pulse Ox 100 100 100 O2 Delivery Mechanical Ventilator Mechanical Ventilator Mechanical Ventilator O2 Flow Rate 40.00 40.00 40.00 12/22/22 12/22/22 12/22/22 12/22/22 02:00 02:10 02:20 02:30 Pulse 86 87 85 82 Resp 17 17 17 16 B/P (MAP) 86/63 (71) 90/64 (72) 93/63 (70) 91/56 (74) Pulse Ox 100 100 100 100 O2 Delivery Mechanical Ventilator Mechanical Ventilator Mechanical Ventilator Mechanical Ventilator O2 Flow Rate 40.00 40.00 40.00 40.00 12/22/22 12/22/22 12/22/22 12/22/22 02:40 02:43 02:50 03:00 Pulse 84 77 76 81 Resp 16 16 16 16 B/P (MAP) 101/78 (86) 123/79 (93) 106/77 (85) Pulse Ox 100 100 98 100 O2 Delivery Mechanical Ventilator Mechanical Ventilator Mechanical Ventilator O2 Flow Rate 40.00 40.00 40.00 FiO2 40 12/22/22 12/22/22 12/22/22 12/22/22 03:10 03:20 03:30 03:35 Pulse 77 78 84 86 Resp 16 16 16 B/P (MAP) 112/70 (85) 111/72 (89) 112/68 (82) 112/68 Pulse Ox 100 100 100 O2 Delivery Mechanical Ventilator Mechanical Ventilator Mechanical Ventilator O2 Flow Rate 40.00 40.00 40.00 12/22/22 12/22/22 12/22/22 12/22/22 03:36 03:40 04:00 04:10 Pulse 68 84 84 97 Resp 16 16 16 B/P (MAP) 112/68 108/69 (82) 117/83 (96) 108/74 (90) Pulse Ox 100 100 100 O2 Delivery Mechanical Ventilator Mechanical Ventilator Mechanical Ventilator O2 Flow Rate 40.00 40.00 40.00 12/22/22 12/22/22 12/22/22 12/22/22 04:17 04:18 04:20 04:30 Temp 35.3 Pulse 81 93 Resp 16 16 B/P (MAP) 112/76 (93) 114/69 (85) Pulse Ox 99 100 O2 Delivery Mechanical Ventilator Mechanical Ventilator Mechanical Ventilator O2 Flow Rate 40.00 40.00 FiO2 30 12/22/22 12/22/22 12/22/22 12/22/22 04:40 04:50 05:00 05:10 Pulse 90 93 84 81 Resp 16 16 16 16 B/P (MAP) 116/76 (89) 102/77 (86) 124/85 (98) 115/80 (91) Pulse Ox 100 100 100 100 O2 Delivery Mechanical Ventilator Mechanical Ventilator Mechanical Ventilator Mechanical Ventilator O2 Flow Rate 40.00 40.00 40.00 40.00 12/22/22 12/22/22 12/22/22 12/22/22 05:20 05:30 05:40 05:50 Pulse 95 98 87 105 Resp 16 16 16 16 B/P (MAP) 121/80 (109) 127/79 (99) 118/77 (86) 111/76 (86) Pulse Ox 100 100 100 100 O2 Delivery Mechanical Ventilator Mechanical Ventilator Mechanical Ventilator Mechanical Ventilator O2 Flow Rate 40.00 40.00 40.00 40.00 12/22/22 12/22/22 12/22/22 12/22/22 06:00 06:10 06:20 06:30 Pulse 96 98 90 97 Resp 16 16 16 16 B/P (MAP) 108/62 (80) 96/62 (80) 94/69 (73) 104/69 (77) Pulse Ox 100 100 100 100 O2 Delivery Mechanical Ventilator Mechanical Ventilator Mechanical Ventilator Mechanical Ventilator O2 Flow Rate 40.00 40.00 40.00 40.00 12/22/22 12/22/22 12/22/22 12/22/22 06:36 06:40 06:50 07:00 Pulse 87 100 95 90 Resp 16 16 16 16 B/P (MAP) 116/70 (79) 106/74 (83) 108/72 (84) Pulse Ox 100 100 100 100 O2 Delivery Mechanical Ventilator Mechanical Ventilator Mechanical Ventilator O2 Flow Rate 40.00 40.00 40.00 FiO2 30 12/22/22 12/22/22 12/22/22 12/22/22 07:15 08:00 08:00 09:00 Pulse 93 89 86 Resp 16 16 B/P (MAP) 117/70 (86) 106/69 (81) Pulse Ox 100 100 98 O2 Delivery Mechanical Ventilator Mechanical Ventilator Mechanical Ventilator O2 Flow Rate 40.00 40.00 FiO2 30 12/22/22 12/22/22 12/22/22 09:41 10:00 10:25 Pulse 87 83 Resp 10 11 B/P (MAP) 123/77 (92) Pulse Ox 100 100 O2 Delivery Mechanical Ventilator Nasal Cannula O2 Flow Rate 40.00 6.00 FiO2 30 Capillary Refill : Less Than 3 Seconds General Appearance: no apparent distress Eyes: Bilateral Eye EOMI Respiratory: lungs clear, normal breath sounds Cardiovascular: regular rate, rhythm, no murmur Gastrointestinal: normal bowel sounds, other (dressing in place with no drainage) Extremities: no pedal edema Neurologic/Psychiatric: alert Skin: warm/dry Assessment/Plan Assessment/Plan Admission Status: Inpatient Order (span 2 midnights) Reason for Inpatient Admission: Perforated abdominal viscus (1) Gastric perforation Status: Acute Assessment & Plan: Management per Surgery (2) Atrial fibrillation Status: Chronic Assessment & Plan: Rate normal currently. Xarelto held prior to admit related to upcoming colonoscopy. Appreciate Cardiology recommendations. (3) Hypertension Status: Chronic Assessment & Plan: Resume home meds as needed. Qualifiers: Qualified Codes: I10 - Essential (primary) hypertension (4) Hyperlipidemia Status: Chronic (5) Coronary artery disease without angina pectoris Status: Chronic (6) Chronic systolic (congestive) heart failure Status: Chronic Assessment & Plan: Clinically stable, but not yet extubated post surgery, appreciate Cardiology recommendations. (7) Chronic obstructive pulmonary disease Status: Chronic (8) DVT prophylaxis Status: Acute Assessment & Plan: Anticoagulation per Cardiology and Surgery recommendations SANTOS LUDWIG MD Dec 22, 2022 10:56
--- NOTE | 2022-12-22 11:02 | Anesthesia-General Post-Op ---
General Patient Condition Mental Status/LOC: Same as Preop Cardiovascular: Satisfactory Nausea/Vomiting: Absent Respiratory: Satisfactory Pain: Controlled Complications: Absent Post Op Complications Complications None Follow Up Care/Instructions Patient Instructions None needed. Anesthesia/Patient Condition Patient Condition Patient is doing well, no complaints, stable vital signs, no apparent adverse anesthesia problems. No complications reported per nursing. TUCKER GRIFFIN CRNA Dec 22, 2022 11:02
--- NOTE | 2022-12-22 11:05 | Tele-ICU Progress Note ---
Subjective Date Seen by a Provider: Dec 22, 2022 Time Seen by a Provider: 11:03 Subjective/Events-last exam called to evaluate for extubation, good cough, not much secretions, minuted ventilation on PSV is low, will extubate Sepsis Event Evaluation Height, Weight, BMI Height: 6'4.00" Weight: 154lbs. 2.0oz. 69.053368tb; 23.17 BMI Method:Stated Exam Exam Patient acknowledged, consented, and participated in this virtual visit which was conducted using real time audio/video Vital Signs Date Time Temp Pulse Resp B/P (MAP) Pulse Ox O2 Delivery O2 Flow Rate FiO2 12/22/22 10:25 Nasal Cannula 6.00 12/22/22 10:00 83 11 123/77 (92) 100 Mechanical Ventilator 40.00 12/22/22 09:41 87 10 100 30 12/22/22 09:00 86 16 106/69 (81) 98 Mechanical Ventilator 40.00 12/22/22 08:00 89 16 117/70 (86) 100 Mechanical Ventilator 40.00 12/22/22 08:00 100 Mechanical Ventilator 30 12/22/22 07:15 93 12/22/22 07:00 90 16 108/72 (84) 100 Mechanical Ventilator 40.00 12/22/22 06:50 95 16 106/74 (83) 100 Mechanical Ventilator 40.00 12/22/22 06:40 100 16 116/70 (79) 100 Mechanical Ventilator 40.00 12/22/22 06:36 87 16 100 30 12/22/22 06:30 97 16 104/69 (77) 100 Mechanical Ventilator 40.00 12/22/22 06:20 90 16 94/69 (73) 100 Mechanical Ventilator 40.00 12/22/22 06:10 98 16 96/62 (80) 100 Mechanical Ventilator 40.00 12/22/22 06:00 96 16 108/62 (80) 100 Mechanical Ventilator 40.00 12/22/22 05:50 105 16 111/76 (86) 100 Mechanical Ventilator 40.00 12/22/22 05:40 87 16 118/77 (86) 100 Mechanical Ventilator 40.00 12/22/22 05:30 98 16 127/79 (99) 100 Mechanical Ventilator 40.00 12/22/22 05:20 95 16 121/80 (109) 100 Mechanical Ventilator 40.00 12/22/22 05:10 81 16 115/80 (91) 100 Mechanical Ventilator 40.00 12/22/22 05:00 84 16 124/85 (98) 100 Mechanical Ventilator 40.00 12/22/22 04:50 93 16 102/77 (86) 100 Mechanical Ventilator 40.00 12/22/22 04:40 90 16 116/76 (89) 100 Mechanical Ventilator 40.00 12/22/22 04:30 93 16 114/69 (85) 100 Mechanical Ventilator 40.00 12/22/22 04:20 81 16 112/76 (93) Mechanical Ventilator 40.00 12/22/22 04:18 35.3 12/22/22 04:17 99 Mechanical Ventilator 30 12/22/22 04:10 97 16 108/74 (90) 100 Mechanical Ventilator 40.00 12/22/22 04:00 84 16 117/83 (96) 100 Mechanical Ventilator 40.00 12/22/22 03:40 84 16 108/69 (82) 100 Mechanical Ventilator 40.00 12/22/22 03:36 68 112/68 12/22/22 03:35 86 112/68 12/22/22 03:30 84 16 112/68 (82) 100 Mechanical Ventilator 40.00 12/22/22 03:20 78 16 111/72 (89) 100 Mechanical Ventilator 40.00 12/22/22 03:10 77 16 112/70 (85) 100 Mechanical Ventilator 40.00 12/22/22 03:00 81 16 106/77 (85) 100 Mechanical Ventilator 40.00 12/22/22 02:50 76 16 123/79 (93) 98 Mechanical Ventilator 40.00 12/22/22 02:43 77 16 100 40 12/22/22 02:40 84 16 101/78 (86) 100 Mechanical Ventilator 40.00 12/22/22 02:30 82 16 91/56 (74) 100 Mechanical Ventilator 40.00 12/22/22 02:20 85 17 93/63 (70) 100 Mechanical Ventilator 40.00 12/22/22 02:10 87 17 90/64 (72) 100 Mechanical Ventilator 40.00 12/22/22 02:00 86 17 86/63 (71) 100 Mechanical Ventilator 40.00 12/22/22 01:50 89 16 85/61 (70) 100 Mechanical Ventilator 40.00 12/22/22 01:40 90/55 (67) 12/22/22 01:30 92 16 87/66 (73) 100 Mechanical Ventilator 40.00 12/22/22 01:20 90 16 101/64 (73) 100 Mechanical Ventilator 40.00 12/22/22 01:10 90 16 103/71 (82) 100 Mechanical Ventilator 40.00 12/22/22 01:00 112/67 (77) 12/22/22 01:00 101 12/22/22 00:50 90 16 77/62 (68) 95 Mechanical Ventilator 40.00 12/22/22 00:40 90 16 95/78 (83) 94 Mechanical Ventilator 40.00 12/22/22 00:30 88 16 102/69 (77) 94 Mechanical Ventilator 40.00 12/22/22 00:20 101 16 111/77 (84) 94 Mechanical Ventilator 40.00 12/22/22 00:10 114 16 136/102 (107) 94 Mechanical Ventilator 40.00 12/22/22 00:05 35.6 12/22/22 00:00 114 16 133/94 (102) 94 Mechanical Ventilator 40.00 12/21/22 23:59 99 Mechanical Ventilator 40 12/21/22 23:50 112 16 146/104 (118) 100 Mechanical Ventilator 40.00 12/21/22 23:40 103 16 155/91 (109) 100 Mechanical Ventilator 40.00 12/21/22 23:30 94 15 156/104 (123) 100 Mechanical Ventilator 46.00 12/21/22 23:20 36.2 76 16 154/84 (111) 100 Mechanical Ventilator 46.00 12/21/22 23:20 68 12/21/22 23:17 79 16 100 Mechanical Ventilator 40.00 12/21/22 23:16 40 12/21/22 23:15 75 16 100 Mechanical Ventilator 100.00 12/21/22 23:09 62 157/89 12/21/22 23:08 62 157/89 12/21/22 23:00 36.6 16 157/89 (111) 100 Mechanical Ventilator 12/21/22 23:00 Mechanical Ventilator 12/21/22 22:55 Mechanical Ventilator 12/21/22 22:50 16 136/109 (118) 100 Mechanical Ventilator 12/21/22 22:50 87 100 100 12/21/22 22:46 Mechanical Ventilator 12/21/22 22:40 16 166/89 (114) 100 Mechanical Ventilator 12/21/22 22:35 Mechanical Ventilator 12/21/22 22:30 16 164/96 (118) 98 Mechanical Ventilator 12/21/22 22:25 Mechanical Ventilator 12/21/22 22:20 36.5 16 166/102 (123) 100 Mechanical Ventilator 12/21/22 22:20 Mechanical Ventilator 12/21/22 20:37 68 18 131/69 96 Nasal Cannula 2.00 12/21/22 17:45 92 Nasal Cannula 2.00 12/21/22 17:45 37.0 54 18 132/80 (97) 92 Room Air I & O 12/22/22 07:00 Intake Total 300 ml Output Total 480 ml Balance -180 ml Height & Weight Height: 6'4.00" Weight: 154lbs. 2.0oz. 69.168675hb; 23.17 BMI Method:Stated General Appearance: No Apparent Distress, Other (Sedated and intubated) HEENT: Normal ENT Inspection, Pharynx Normal Neck: Normal Inspection Respiratory: Chest Non Tender, Lungs Clear, Normal Breath Sounds, No Accessory Muscle Use, No Respiratory Distress Cardiovascular: No Edema, No Gallop, No JVD, No Murmur, Normal Peripheral Pulses, Irregularly Irregular Capillary Refill: Less Than 3 Seconds Gastrointestinal: normal bowel sounds, other (dressing in place with no drainage) Extremity: Normal Capillary Refill, Normal Inspection, No Pedal Edema Neurologic/Psychiatric: Other (Sedated and intubated) Skin: Normal Color, Warm/Dry Lymphatic: No Adenopathy Results Lab Laboratory Tests 12/21/22 18:50 12/21/22 23:05 12/22/22 04:57 Assessment/Plan Assessment/Plan called to evaluate for extubation, good cough, not much secretions, minuted ventilation on PSV is low, will extubate Critical Care: Ventilator Management Time spent with patient (mins): 10 VIGNESH SPEAR MD Dec 22, 2022 11:04
[2022-12-22] MEDS ORDERED: HYDR-700 PO (11:14)
[2022-12-22] MEDS ORDERED: PANT40TA52 PO (11:14)
[2022-12-22] MEDS ORDERED: MTP25TSR PO (11:14)
[2022-12-22] MEDS ORDERED: MAGN400T39 PO (13:16)
[2022-12-22] MEDS ORDERED: METO-333 PO (13:16)
[2022-12-22] MEDS ORDERED: IPRA3AMP31 IH (13:16)
[2022-12-22] MEDS ORDERED: POTA-169 PO (13:16)
[2022-12-22] MEDS ORDERED: LOSA-417 PO (13:16)
[2022-12-22] MEDS ORDERED: SERT-412 PO (13:16)
[2022-12-22] MEDS ORDERED: RT-Ipratropium/Albuterol NEB 3 ML VIAL INH SCH (14:00)
[2022-12-22] MEDS: FLUTICASONE/VILANTEROL 100/25 MCG (14 DOSES) IH SCH (14:51)
[2022-12-22] MEDS: TIOTROPIUM INH 4 GM (SPIRIVA Respimat) IH SCH (14:51)
[2022-12-22] MEDS: morphine INJ 4 MG/ML 1 ML (VIAL/SYRINGE) IVP PRN ×4 (15:33→22:27)
[2022-12-22] MEDS: dilTIAZem DRIP PRE-MIX 125 ML IV SCH ×2 (16:08→23:41)
[2022-12-22] MEDS: fentaNYL DRIP PRE-MIX 250 ML IV SCH (19:47)
[2022-12-22 20:56] VITALS: BP 144/77
[2022-12-22] MEDS: RT-Ipratropium/Albuterol NEB 3 ML VIAL INH SCH (20:56)
[2022-12-22] MEDS ORDERED: NON-FORMULARY MEDICATION 1 EA EA (Budesonide/Glycopyr/Formoterol (Breztri Aerosphere Inhal INH SCH (21:00)
[2022-12-23] MEDS: morphine INJ 4 MG/ML 1 ML (VIAL/SYRINGE) IVP PRN ×5 (02:30→21:26)
[2022-12-23] MEDS: ceFAZolin INJECTION 2,000 MG in NS (IVPB) 50 ML 50 ML IV SCH ×3 (04:10→20:04)
--- NOTE | 2022-12-23 04:57 | OPERATIVE REPORT ---
DATE OF SERVICE: 12/21/2022 PREOPERATIVE DIAGNOSIS: Hollow viscus perforation. POSTOPERATIVE DIAGNOSIS: Gastric perforation. PROCEDURE: Exploratory laparotomy, partial gastric resection. SURGEON: Crow Davis DO ANESTHESIA: General. ESTIMATED BLOOD LOSS: Minimal. COMPLICATIONS: None. SPECIMENS: Portion of stomach. INDICATIONS: The patient is a 67-year-old male who presented to emergency department with a left upper quadrant abdominal pain. He had CT scan, which demonstrated significant free air. He was discussed risks and benefits of procedure and wished to proceed. Consent was signed in chart. DESCRIPTION OF PROCEDURE: The patient was taken to the operating suite, prepped and draped in sterile fashion. Timeout was performed, #15 blade scalpel was used to make a midline incision on the upper abdomen. The subcutaneous tissue was then divided down to the fascia with cautery and the fascia was then opened and a moscoso of air escaped. Upon entering the abdomen, there were no gross contamination, large aortic aneurysm palpable. The small bowel was lifted and inspected no visualized abnormality. Stomach was then inspected. Previous gastrostomy feeding tube site was up to the abdominal wall and the anterior surface of the stomach was inspected without any abnormalities visualized. The LigaSure was used to free the greater curvature and inspected posteriorly, did not see any abnormality. Inspected the duodenum, had no abnormality visualized. Then inspected the colon, which had normal appearance and decompressed. The spleen was visualized, no abnormality. The portion of the stomach where the gastrostomy was, went up to the anterior abdominal wall was inspected. There was bruised area on this area and slightly thickened as well. Through this area, when the stomach was squeezed, air was escaping from this area; therefore, cautery was taken down from the anterior abdominal wall. This was then grasped with an Allis and elevated. A partial gastrectomy was performed removing this portion of the stomach. The abdomen was then inspected noting no other pathology. The abdomen was irrigated with copious amounts of irrigation and the fascia was then closed using 1-0 looped PDS in a running fashion. Prior to closing the fascia, NG tube was placed in the stomach appropriately. The fascia was then closed with 1-0 looped PDS. The wound was then irrigated and skin was then closed with delbert. The patient tolerated the procedure well without any complications, taken to recovery room in stable condition. He was left intubated. Job ID: [id number] DocumentID: [id number] Dictated Date: 12/22/2022 21:51:10 Wet Cotton Feeder Date: 12/23/2022 04:55:00 Dictated By: DO LACEY GIBSON
[2022-12-23] MEDS: metroNIDAZOLE 500MG/100ML IVPB 100 ML IV SCH ×3 (05:36→21:19)
[2022-12-23] MEDS: POTASSIUM CHLORIDE 20 MEQ TABLET PO SCH (05:42)
[2022-12-23] MEDS: MAGNESIUM 1 GM/100 ML IVPB 100 ML IV SCH ×5 (05:42→11:46)
[2022-12-23] MEDS: POTASSIUM CL 10MEQ/50ML IVPB 50 ML IV SCH ×3 (05:42→08:01)
[2022-12-23 06:23] LABS: HEMATOCRIT 33 % (40-54); HEMOGLOBIN 11.6 g/dL (13.3-17.7); MEAN CORPUSCULAR HEMOGLOBIN 36 pg (25-34); MEAN CORPUSCULAR HGB CONC 35 g/dL (32-36); MEAN CORPUSCULAR VOLUME 103 fL (80-99); MEAN PLATELET VOLUME 10.1 fL (9.0-12.2); PLATELET COUNT 165 10^3/uL (130-400); WHITE BLOOD COUNT 13.6 10^3/uL (4.3-11.0)
[2022-12-23 06:35] LABS: POTASSIUM 3.8 MMOL/L (3.6-5.0)
[2022-12-23 06:36] LABS: CALCIUM 8.6 MG/DL (8.5-10.1)
[2022-12-23 06:40] LABS: CREATININE SERUM 0.76 MG/DL (0.60-1.30)
[2022-12-23 06:43] LABS: MAGNESIUM 1.6 MG/DL (1.6-2.4)
[2022-12-23] MEDS: RT-Ipratropium/Albuterol NEB 3 ML VIAL INH SCH ×2 (07:12→22:21)
--- NOTE | 2022-12-23 07:26 | Progress Note - Surgery ---
NEMESIO HODGSON 12/23/22 0726: Subjective Date Seen by a Provider: Dec 23, 2022 Time Seen by a Provider: 06:25 Subjective/Events-last exam Pt is resting in bed and having mild discomfort. States that he is having trouble sleeping. Pt has chronic sleeping issues and takes hydroxyzine at home. Having abdominal pain mainly around incision that is well controlled with pain medication. No flatus or BM. Denies nausea, vomiting, chest pain, dysuria, SOA. Review of Systems General: No Chills, No Night Sweats HEENT: No Head Aches, No Visual Changes Pulmonary: No Dyspnea, No Cough Cardiovascular: No: Chest Pain, Palpitations Gastrointestinal: Abdominal Pain; No: Nausea, Vomiting Genitourinary: No Dysuria, No Frequency Musculoskeletal: No: neck pain, shoulder pain Neurological: No: Weakness, Numbness Objective Exam Vital Signs Date Time Temp Pulse Resp B/P (MAP) Pulse Ox O2 Delivery O2 Flow Rate FiO2 12/23/22 07:14 94 High Flow N/C 4.00 12/23/22 06:45 92 16 125/74 (87) 90 High Flow N/C 4.00 12/23/22 06:30 84 17 115/81 (87) 94 High Flow N/C 4.00 12/23/22 06:15 78 15 116/68 (85) 94 High Flow N/C 4.00 12/23/22 06:00 75 17 124/74 (93) 90 High Flow N/C 4.00 12/23/22 05:00 89 17 111/75 (88) 95 High Flow N/C 4.00 12/23/22 04:00 82 15 123/91 (101) 94 High Flow N/C 4.00 12/23/22 03:11 36.8 12/23/22 03:10 94 High Flow N/C 4.00 12/23/22 03:00 84 15 111/66 (89) 94 High Flow N/C 4.00 12/23/22 02:00 84 18 120/63 (88) 94 High Flow N/C 4.00 12/23/22 01:55 High Flow N/C 4.00 12/23/22 01:00 70 12/23/22 01:00 70 18 124/65 (80) 94 NIV Bilevel 30.00 12/23/22 00:00 89 19 93/63 (76) 92 NIV Bilevel 30.00 12/22/22 23:41 87 116/68 12/22/22 23:25 37.1 NIV Bilevel 30.00 12/22/22 23:25 95 NIV Bilevel 30 12/22/22 23:00 106 18 111/58 (72) 92 NIV Bilevel 30.00 12/22/22 22:09 100 15 104/92 (97) 95 NIV Bilevel 30.00 12/22/22 21:00 105 27 126/69 (82) 97 NIV Bilevel 30.00 12/22/22 20:56 93 99 30.00 12/22/22 20:55 NIV Bilevel 30.00 12/22/22 20:15 Nasal Cannula 3.00 12/22/22 20:00 108 22 135/77 (94) 93 Nasal Cannula 2.00 12/22/22 19:15 92 Nasal Cannula 2.00 12/22/22 19:00 107 12/22/22 19:00 37.3 111 17 133/68 (89) 92 Nasal Cannula 2.00 12/22/22 18:00 126 16 116/87 (97) 91 Nasal Cannula 6.00 12/22/22 17:00 100 20 123/83 (96) 95 Nasal Cannula 6.00 12/22/22 16:08 111 130/72 12/22/22 16:00 98 Nasal Cannula 4.00 12/22/22 16:00 118 23 130/72 (91) 93 Nasal Cannula 6.00 12/22/22 15:00 109 25 138/91 (107) 95 Nasal Cannula 6.00 12/22/22 14:51 100 High Flow N/C 4.00 12/22/22 14:00 116 25 142/92 (109) 100 Nasal Cannula 6.00 12/22/22 13:00 80 23 141/91 (108) 100 Nasal Cannula 6.00 12/22/22 12:50 102 12/22/22 12:21 36.8 12/22/22 12:00 100 Mechanical Ventilator 30 12/22/22 12:00 102 18 134/83 (100) 100 Nasal Cannula 6.00 12/22/22 11:00 91 21 134/107 (116) 100 Nasal Cannula 6.00 12/22/22 10:25 Nasal Cannula 6.00 12/22/22 10:00 83 11 123/77 (92) 100 Mechanical Ventilator 40.00 12/22/22 09:41 87 10 100 30 12/22/22 09:00 86 16 106/69 (81) 98 Mechanical Ventilator 40.00 12/22/22 08:00 89 16 117/70 (86) 100 Mechanical Ventilator 40.00 12/22/22 08:00 100 Mechanical Ventilator 30 I & O 12/23/22 07:00 Intake Total 1525 ml Output Total 1675 ml Balance -150 ml Capillary Refill : Less Than 3 Seconds General Appearance: No Apparent Distress, Chronically ill, Other (ng tube in place.) HEENT: PERRL/EOMI, Normal ENT Inspection Neck: Normal Inspection, Non Tender, Supple Respiratory: Chest Non Tender, No Accessory Muscle Use, No Respiratory Distress Cardiovascular: No JVD, Irregularly Irregular Gastrointestinal: soft, abnormal bowel sounds (hypoactive), tenderness (no signs of infection , some subcutaneous emphysema around incision.) Extremity: Normal Capillary Refill, Normal Inspection, No Pedal Edema Neurologic/Psychiatric: Alert, Oriented x3, Other Skin: Normal Color, Warm/Dry Lymphatic: No Adenopathy Results Lab Laboratory Tests 12/23/22 05:55: White Blood Count 13.6H, Red Blood Count 3.25L, Hemoglobin 11.6L, Hematocrit 33L , Mean Corpuscular Volume 103H, Mean Corpuscular Hemoglobin 36H, Mean Corpuscular Hemoglobin Concent 35, Red Cell Distribution Width 14.6H, Platelet Count 165, Mean Platelet Volume 10.1, Sodium Level 137, Potassium Level 3.8, Chloride Level 102, Carbon Dioxide Level 26, Anion Gap 9, Blood Urea Nitrogen 11, Creatinine 0.76, Estimat Glomerular Filtration Rate 99, BUN/Creatinine Ratio 14, Glucose Level 121H, Calcium Level 8.6, Magnesium Level 1.6, Triglycerides Level 52 Microbiology 12/21/22 MRSA Screen - Final, Complete MRSA not isolated Assessment/Plan Assessment/Plan Assessment/Plan luq abdominal pain hollow viscus perforation s/p ex lap with partial gastrectomy residential anticoagulation/antiplatelet Chronic EtOH use NPO Fluids Pain medication Observe in ICU [facility] Cardiology will consult Dr. Douglass. Consult medicine. Hold Anticoagulation/antiplatelet Add sleep medication- melatonin or hydroxyzine at BRYON DAVIS DO 12/23/22 1422: Subjective Subjective/Events-last exam Pain controlled with pain medication. No bowel function yet. NG tube in place. Denies n/v fever sweats chills shortness of breath or chest pain at this time. Objective Exam General Appearance: No Apparent Distress, Chronically ill HEENT: PERRL/EOMI Neck: Normal Inspection, Non Tender, Supple Respiratory: Chest Non Tender, No Accessory Muscle Use, No Respiratory Distress Cardiovascular: No JVD, Irregularly Irregular Gastrointestinal: soft, tenderness (no signs of infection , some minimal subcutaneous emphysema around incision.) Extremity: Normal Capillary Refill, Normal Inspection Neurologic/Psychiatric: Alert, Oriented x3 Skin: Normal Color, Warm/Dry Lymphatic: No Adenopathy Assessment/Plan Assessment/Plan Assessment/Plan luq abdominal pain hollow viscus perforation s/p ex lap with partial gastrectomy terminal gauger anticoagulation/antiplatelet Chronic EtOH use NPO Fluids Pain medication Observe in ICU [facility] Cardiology will consult Dr. Douglass. Consult medicine. Hold Anticoagulation/antiplatelet Awaiting bowel function Incentive spirometry Supervisory-Addendum Brief Verification & Attestation Participated in pt care: history, MDM, physical Personally performed: exam, history, MDM, supervision of care Care discussed with: Medical Student Procedures: n/a Results interpretation: Verified all documentation Verification and Attestation of Medical Student E/M Service A medical student performed and documented this service in my presence. I reviewed and verified all information documented by the medical student and made modifications to such information, when appropriate. I personally performed the physical exam and medical decision making. Bryon Davis, Dec 23, 2022,14:22 NEMESIO HODGSON Dec 23, 2022 07:26 BRYON DAVIS DO Dec 23, 2022 14:22
[2022-12-23] MEDS: dilTIAZem DRIP PRE-MIX 125 ML IV SCH ×3 (08:00→23:45)
[2022-12-23] MEDS: LACTATED RINGERS 1,000 ML 1,000 ML IV SCH ×3 (08:00→23:45)
[2022-12-23] MEDS: PANTOPRAZOLE INJECTION 40 MG VIAL IV SCH ×2 (08:01→20:04)
--- NOTE | 2022-12-23 09:15 | Progress Note ---
Subjective Subjective/Events-last exam States he is feeling okay today, has some moderate abdominal pain. Objective Exam Last Set of Vital Signs Vital Signs Date Time Temp Pulse Resp B/P (MAP) Pulse Ox O2 Delivery O2 Flow Rate FiO2 12/23/22 09:00 84 13 117/69 (85) 91 High Flow N/C 4.00 12/23/22 03:11 36.8 12/22/22 23:25 30 Capillary Refill : Less Than 3 Seconds I&O Intake and Output 12/23/22 00:00 Intake Total 1525 ml Output Total 1425 ml Balance 100 ml Intake Oral 0 ml IV Total 1525 ml Output Urine Total 1425 ml General: Alert, No Acute Distress Lungs: Other (ronchi) Heart: Other (irregularly irregular) Abdomen: Normal Bowel Sounds Extremities: No Edema Psych/Mental Status: Mood NL Results/Procedures Lab Laboratory Tests 12/23/22 05:55: White Blood Count 13.6H, Red Blood Count 3.25L, Hemoglobin 11.6L, Hematocrit 33L , Mean Corpuscular Volume 103H, Mean Corpuscular Hemoglobin 36H, Mean Corpuscular Hemoglobin Concent 35, Red Cell Distribution Width 14.6H, Platelet Count 165, Mean Platelet Volume 10.1, Sodium Level 137, Potassium Level 3.8, Chl oride Level 102, Carbon Dioxide Level 26, Anion Gap 9, Blood Urea Nitrogen 11, Creatinine 0.76, Estimat Glomerular Filtration Rate 99, BUN/Creatinine Ratio 14, Glucose Level 121H, Calcium Level 8.6, Magnesium Level 1.6, Triglycerides Level 52 Microbiology 12/21/22 MRSA Screen - Final, Complete MRSA not isolated Radiology CT abd/pelvis: IMPRESSION: 1. Large volume of intra-abdominal free air of uncertain etiology but concerning for hollow viscus perforation. There are a few foci along the left upper quadrant near the stomach which could suggest perforated ulceration. 2. 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 No dissection or significant stenosis. 3. COPD without other acute abnormality in the chest. CXR: IMPRESSION: Emphysema. No focal consolidation or swathi pulmonary edema. Endotracheal tube tip projects over the proximal trachea. Assessment/Plan Assessment/Plan (1) Gastric perforation Status: Acute Assessment & Plan: Management per Surgery (2) Atrial fibrillation Status: Chronic Assessment & Plan: Rate normal currently. Xarelto held prior to admit related to upcoming colonoscopy. Appreciate Cardiology recommendations. 12/23 on diltiazem drip (3) Hypertension Status: Chronic Assessment & Plan: Resume home meds as needed. Qualifiers: Qualified Codes: I10 - Essential (primary) hypertension (4) Hyperlipidemia Status: Chronic (5) Coronary artery disease without angina pectoris Status: Chronic (6) Chronic systolic (congestive) heart failure Status: Chronic Assessment & Plan: Clinically stable, but not yet extubated post surgery, appreciate Cardiology recommendations. (7) Chronic obstructive pulmonary disease Status: Chronic Assessment & Plan: Resume home inhalers (8) DVT prophylaxis Status: Acute Assessment & Plan: Anticoagulation per Cardiology and Surgery recommendations SANTOS LUDWIG MD Dec 23, 2022 09:15
--- NOTE | 2022-12-23 09:17 | Cardiology Progress Note ---
Subjective Date Seen by Provider: Dec 23, 2022 Time Seen by Provider: 08:40 Subjective/Events-last exam Patient extubated,NG tube in place. c/o some abdominal pain. Denies any chest pain Objective-Cardiology Exam Last Set of Vital Signs Vital Signs 12/22/22 12/23/22 12/23/22 23:25 03:11 10:00 Temp 36.8 Pulse 82 Resp 13 B/P (MAP) 118/68 (85) Pulse Ox 95 O2 Delivery High Flow N/C O2 Flow Rate 4.00 FiO2 30 I&O Intake and Output 12/23/22 00:00 Intake Total 1525 ml Output Total 1425 ml Balance 100 ml Intake Oral 0 ml IV Total 1525 ml Output Urine Total 1425 ml General: Alert, Oriented X3, Cooperative Lungs: Clear to Auscultation, Normal Air Movement Heart: Regular Rate Extremities: No Edema Skin: No Rashes, No Significant Lesion Psych/Mental Status: Mood NL Results Lab Laboratory Tests 12/23/22 05:55 A/P-Cardiology Admission Diagnosis Acute abdomen Acute respiratory failure Coronary artery disease Permanent atrial fibrillation Assessment/Plan Acute abdomen, gastric perforation, status post exploratory laparotomy done on December 21, 2022 Patient extubated, NG tube in place. Acute respiratory failure, ventilator dependent History of COPD with recurrent respiratory failure. Had multiple hospitalization in February and July 2022 Managed by primary care team Chronic permanent atrial fibrillation, heart rate better controlled since he started on BiPAP Maintained on Cardizem History of ablation in April [address] Godfrey, had multiple cardiac arrest and complex hospitalization in October 2017 Currently heart rate is controlled. Continue to monitor Coronary artery disease, history of stenting using 3.020 mm Promus stent to the right coronary artery done in March 2012. Stress test done on November 01, 2019 showing Baseline atrial fibrillation, decreased uptake involving the mid to apical inferior wall with no reversibility, ejection fraction 40 percent probably due to tachycardia. Patient had been having more chest pain recently, was scheduled for [facility] on December 23, 2022 as outpatient. Will postpone at this time. COPD, using oxygen at night, had a complex hospitalization with Legionella pneumonia and CMV, respiratory failure, multiple cardiac arrest in October. loculated pneumonia underwent right lung decortication on January 28, 2018 resulted in hydropneumothorax and marked emphysema and had prolonged chest tube placement. History of congestive heart failure, chronic left ventricular systolic dysfunction. 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 Abdominal aortic aneurysm, had a stent placed by Dr. Hogue done in June 2021. Hypertension, continue to monitor. Hyperlipidemia, continue to monitor lipids Tobaccoism, Supervisory-Addendum Brief Supervisory Addendum Participated in pt care: history, MDM, physical Personally performed: exam, history, MDM Care discussed with: SILAS Results interpretation: Verified all documentation Notes: Patient was seen and evaluated with Aniceto, examination performed, management plan was discussed, agree with the current scribed note, I made few changes to the note using Italic font Patient was seen at bedside, laying down comfortably, no new complain, no chest pain. Continue to monitor, will consider rescheduling cardiac catheterization once clinically more stable or it can be done as an outpatient Started on Cardizem drip and we will continue on a drip to control heart rate. Cannot take oral medication at this time ANICETO WEST PA-C Dec 23, 2022 09:17 AIDAN PASTOR MD Dec 23, 2022 11:03
--- NOTE | 2022-12-23 10:08 | Diagnostic Imaging Report ---
INDICATION: Pneumoperitoneum again noted. Some mild basilar atelectasis and partial atelectasis suprahilar right upper lobe present. OG in the stomach. Air trapping and COPD chronic. IMPRESSION: Scattered zones of partial atelectasis and background COPD. Decreased pneumoperitoneum. No failure or pneumothorax. Dictated by: Dictated on workstation # [id number]
--- NOTE | 2022-12-23 12:54 | Tele-ICU Progress Note ---
Subjective Date Seen by a Provider: Dec 23, 2022 Time Seen by a Provider: 10:15 Subjective/Events-last exam (Tele-ICU Physician , Progress Note ) Service provided via interactive audio and video telecommunications [facility] y[facility] to a patient admitted to ICU bed in [facility]. Patient is seen today due to persistent need of ICU care Available chart/ vitals / labs / Images reviewed Video assessment done using teleICU camera, rest of exam as per RN 67 yr old male admitted with abdominal pain and found to free air in abdomen. underwent exploratory lap and found to have gastric perforation. had partial gastrectomy done. Extubated on 12/22/22. on n/c. RN reports chest congestion. CXR ordered still awating dewayne done impression. 1. gastric perforation s/p ex lap and partial gastrectomy. 2. Afib with RVR on cardizem drip. 3. previous hx of aspergillosis s/p prolonged hospitalisation at . 4. Alcohol abuse history. 5. hx of copd Recomemdations. 1. continue iv hydration and monitor urine out put. 2. Cardizem per cardiology. 3. IV antibiotics 4. DVT prophylaxis 5. Bronchiolar therapy Coordination of care with primary care physician and bedside consultants. I am remotely monitoring this patient from Tele icu station in [place]. I am unable to do the bedside exam, and history/physical and pertinent information is taken from other notes in the computer and bedside staff. Certain portions of this document may have been dictated utilizing voice recognition technology such as [employer]. Inherent to this technology, typographical and grammatical errors may exist. As much as I am diligent to identify and correct to these mistakes, some errors may remain in the document. Critical care time devoted to this patient today is approximately is--25 minutes. Sepsis Event Evaluation Height, Weight, BMI Height: 6'4.00" Weight: 154lbs. 2.0oz. 69.461773mg; 21.96 BMI Method:Stated Exam Exam Patient acknowledged, consented, and participated in this virtual visit which was conducted using real time audio/video Vital Signs Date Time Temp Pulse Resp B/P (MAP) Pulse Ox O2 Delivery O2 Flow Rate FiO2 12/23/22 12:06 85 12/23/22 12:00 73 129/65 (86) 90 High Flow N/C 4.00 12/23/22 11:41 36.7 12/23/22 11:00 80 13 123/63 (83) 94 High Flow N/C 4.00 12/23/22 10:00 82 13 118/68 (85) 95 High Flow N/C 4.00 12/23/22 09:00 84 13 117/69 (85) 91 High Flow N/C 4.00 12/23/22 08:00 94 Nasal Cannula 4.00 12/23/22 08:00 87 117/69 12/23/22 08:00 76 19 117/64 (81) 94 High Flow N/C 4.00 12/23/22 07:25 72 12/23/22 07:14 94 High Flow N/C 4.00 12/23/22 07:00 79 18 107/68 (81) 93 High Flow N/C 4.00 12/23/22 06:45 92 16 125/74 (87) 90 High Flow N/C 4.00 12/23/22 06:30 84 17 115/81 (87) 94 High Flow N/C 4.00 12/23/22 06:15 78 15 116/68 (85) 94 High Flow N/C 4.00 12/23/22 06:00 75 17 124/74 (93) 90 High Flow N/C 4.00 12/23/22 05:00 89 17 111/75 (88) 95 High Flow N/C 4.00 12/23/22 04:00 82 15 123/91 (101) 94 High Flow N/C 4.00 12/23/22 03:11 36.8 12/23/22 03:10 94 High Flow N/C 4.00 12/23/22 03:00 84 15 111/66 (89) 94 High Flow N/C 4.00 12/23/22 02:00 84 18 120/63 (88) 94 High Flow N/C 4.00 12/23/22 01:55 High Flow N/C 4.00 12/23/22 01:00 70 12/23/22 01:00 70 18 124/65 (80) 94 NIV Bilevel 30.00 12/23/22 00:00 89 19 93/63 (76) 92 NIV Bilevel 30.00 12/22/22 23:41 87 116/68 12/22/22 23:25 37.1 NIV Bilevel 30.00 12/22/22 23:25 95 NIV Bilevel 30 12/22/22 23:00 106 18 111/58 (72) 92 NIV Bilevel 30.00 12/22/22 22:09 100 15 104/92 (97) 95 NIV Bilevel 30.00 12/22/22 21:00 105 27 126/69 (82) 97 NIV Bilevel 30.00 12/22/22 20:56 93 99 30.00 12/22/22 20:55 NIV Bilevel 30.00 12/22/22 20:15 Nasal Cannula 3.00 12/22/22 20:00 108 22 135/77 (94) 93 Nasal Cannula 2.00 12/22/22 19:15 92 Nasal Cannula 2.00 12/22/22 19:00 107 12/22/22 19:00 37.3 111 17 133/68 (89) 92 Nasal Cannula 2.00 12/22/22 18:00 126 16 116/87 (97) 91 Nasal Cannula 6.00 12/22/22 17:00 100 20 123/83 (96) 95 Nasal Cannula 6.00 12/22/22 16:08 111 130/72 12/22/22 16:00 98 Nasal Cannula 4.00 12/22/22 16:00 118 23 130/72 (91) 93 Nasal Cannula 6.00 12/22/22 15:00 109 25 138/91 (107) 95 Nasal Cannula 6.00 12/22/22 14:51 100 High Flow N/C 4.00 12/22/22 14:00 116 25 142/92 (109) 100 Nasal Cannula 6.00 12/22/22 13:00 80 23 141/91 (108) 100 Nasal Cannula 6.00 12/22/22 12:50 102 I & O 12/23/22 07:00 Intake Total 1525 ml Output Total 1675 ml Balance -150 ml Height & Weight Height: 6'4.00" Weight: 154lbs. 2.0oz. 69.911593yv; 21.96 BMI Method:Stated General Appearance: No Apparent Distress, Chronically ill, Other (ng tube in place.) HEENT: PERRL/EOMI, Normal ENT Inspection Neck: Normal Inspection, Non Tender, Supple Respiratory: Chest Non Tender, No Accessory Muscle Use, No Respiratory Distress Cardiovascular: No JVD, Irregularly Irregular Capillary Refill: Less Than 3 Seconds Gastrointestinal: soft, abnormal bowel sounds (hypoactive), tenderness (no signs of infection , some subcutaneous emphysema around incision.) Extremity: Normal Capillary Refill, Normal Inspection, No Pedal Edema Neurologic/Psychiatric: Alert, Oriented x3, Other Skin: Normal Color, Warm/Dry Lymphatic: No Adenopathy Results Lab Laboratory Tests 12/21/22 18:50 12/21/22 23:05 12/22/22 04:57 12/23/22 05:55 Assessment/Plan Assessment/Plan as above Critical Care: Critically Ill Patient Time spent with patient (mins): 25 ALIX BENTLEY MD Dec 23, 2022 12:54
[2022-12-23] MEDS: ENOXAPARIN 40 MG/0.4 ML SYRINGE SC SCH (14:20)
[2022-12-23] MEDS: TIOTROPIUM INH 4 GM (SPIRIVA Respimat) IH SCH (18:34)
[2022-12-23] MEDS: FLUTICASONE/VILANTEROL 100/25 MCG (14 DOSES) IH SCH (18:35)
[2022-12-23 22:21] VITALS: BP 142/102
[2022-12-24 01:59] VITALS: BP 137/73
[2022-12-24] MEDS: ceFAZolin INJECTION 2,000 MG in NS (IVPB) 50 ML 50 ML IV SCH ×3 (03:40→20:02)
[2022-12-24 03:57] LABS: HEMATOCRIT 39 % (40-54); HEMOGLOBIN 13.3 g/dL (13.3-17.7); MEAN CORPUSCULAR HEMOGLOBIN 36 pg (25-34); MEAN CORPUSCULAR HGB CONC 35 g/dL (32-36); MEAN CORPUSCULAR VOLUME 103 fL (80-99); MEAN PLATELET VOLUME 11.9 fL (9.0-12.2); PLATELET COUNT 136 10^3/uL (130-400); WHITE BLOOD COUNT 9.7 10^3/uL (4.3-11.0)
[2022-12-24 04:18] LABS: POTASSIUM 3.9 MMOL/L (3.6-5.0)
[2022-12-24 04:19] LABS: CALCIUM 8.5 MG/DL (8.5-10.1)
[2022-12-24 04:23] LABS: CREATININE SERUM 0.74 MG/DL (0.60-1.30)
[2022-12-24 04:26] LABS: MAGNESIUM 1.6 MG/DL (1.6-2.4)
[2022-12-24] MEDS: MAGNESIUM 1 GM/100 ML IVPB 100 ML IV SCH ×6 (04:35→08:47)
[2022-12-24] MEDS: POTASSIUM CL 10MEQ/50ML IVPB 50 ML IV SCH ×2 (04:35→04:55)
[2022-12-24] MEDS: POTASSIUM CHLORIDE 20 MEQ TABLET PO SCH (04:35)
[2022-12-24] MEDS ORDERED: POTASSIUM CL 10MEQ/50ML IVPB 100 ML IV ONE (04:44)
[2022-12-24] MEDS ORDERED: MAGNESIUM 1 GM/100 ML IVPB 400 ML IV ONE (04:44)
[2022-12-24] MEDS: metroNIDAZOLE 500MG/100ML IVPB 100 ML IV SCH ×3 (06:01→21:16)
[2022-12-24] MEDS: morphine INJ 4 MG/ML 1 ML (VIAL/SYRINGE) IVP PRN ×2 (06:50→17:58)
--- NOTE | 2022-12-24 07:01 | Progress Note - Surgery ---
NEMESIO HODGSON 12/24/22 0701: Subjective Date Seen by a Provider: Dec 24, 2022 Time Seen by a Provider: 06:30 Subjective/Events-last exam Pt is feeling sore and tired with pain localized to incision sites. Per RN, pt has developed coarse lung sounds and has required an increase of FIO2 from 30% to 40% last night. Denies nausea, vomiting, chest pain, dysuria, fever. Review of Systems General: No Chills, No Night Sweats HEENT: No Head Aches, No Visual Changes Pulmonary: Dyspnea; No Cough Cardiovascular: No: Chest Pain, Palpitations Gastrointestinal: Abdominal Pain; No: Nausea, Vomiting Genitourinary: No Dysuria, No Frequency Musculoskeletal: No: neck pain, shoulder pain Neurological: No: Weakness, Numbness Objective Exam Vital Signs Date Time Temp Pulse Resp B/P (MAP) Pulse Ox O2 Delivery O2 Flow Rate FiO2 12/24/22 06:00 101 21 137/90 (106) 93 NIV Bilevel 40.00 12/24/22 04:00 89 16 134/84 (101) 92 NIV Bilevel 40.00 12/24/22 03:40 36.8 NIV Bilevel 40.00 12/24/22 03:25 94 NIV Bilevel 40 12/24/22 03:00 108 20 142/76 (98) 93 NIV Bilevel 40.00 12/24/22 02:00 98 19 119/67 (84) 93 NIV Bilevel 40.00 12/24/22 01:59 98 20 93 40.00 12/24/22 01:00 96 18 132/73 (92) 99 NIV Bilevel 40.00 12/24/22 01:00 89 12/24/22 00:57 NIV Bilevel 40.00 12/24/22 00:00 101 26 121/77 (92) 95 NIV Bilevel 30.00 12/23/22 23:45 90 129/86 12/23/22 23:40 96 NIV Bilevel 30 12/23/22 23:39 37.0 90 16 129/86 (100) 91 NIV Bilevel 30.00 12/23/22 23:00 144 15 135/76 (95) 92 NIV Bilevel 30.00 12/23/22 22:21 108 22 92 30.00 12/23/22 22:00 128 21 133/75 (94) 89 NIV Bilevel 30.00 12/23/22 21:20 NIV Bilevel 30.00 12/23/22 21:00 112 21 149/81 (103) 90 NIV Bilevel 50.00 12/23/22 20:02 NIV Bilevel 50.00 12/23/22 20:00 134 21 147/93 (111) 90 NIV Bilevel 30.00 12/23/22 19:37 NIV Bilevel 30.00 12/23/22 19:30 93 High Flow N/C 4.00 12/23/22 19:00 36.5 87 24 19/72 (55) 93 High Flow N/C 4.00 12/23/22 19:00 104 12/23/22 18:38 92 High Flow N/C 5.00 12/23/22 18:37 92 High Flow N/C 5.00 12/23/22 18:00 104 132/71 (91) 92 High Flow N/C 4.00 12/23/22 17:00 96 138/71 (93) 90 High Flow N/C 4.00 12/23/22 16:49 37.0 12/23/22 16:00 92 Nasal Cannula 4.00 12/23/22 16:00 84 121/65 12/23/22 16:00 80 124/68 (86) 95 High Flow N/C 4.00 12/23/22 15:00 83 127/72 (90) 93 High Flow N/C 4.00 12/23/22 14:00 84 108/89 (95) 94 High Flow N/C 4.00 12/23/22 13:00 78 117/67 (84) 94 High Flow N/C 4.00 12/23/22 12:06 85 12/23/22 12:00 94 Nasal Cannula 4.00 12/23/22 12:00 73 129/65 (86) 90 High Flow N/C 4.00 12/23/22 11:41 36.7 12/23/22 11:00 80 13 123/63 (83) 94 High Flow N/C 4.00 12/23/22 10:00 82 13 118/68 (85) 95 High Flow N/C 4.00 12/23/22 09:00 84 13 117/69 (85) 91 High Flow N/C 4.00 12/23/22 08:00 94 Nasal Cannula 4.00 12/23/22 08:00 87 117/69 12/23/22 08:00 76 19 117/64 (81) 94 High Flow N/C 4.00 12/23/22 07:25 72 12/23/22 07:14 94 High Flow N/C 4.00 12/23/22 07:00 79 18 107/68 (81) 93 High Flow N/C 4.00 I & O 12/24/22 07:00 Intake Total 3300 ml Output Total 3300 ml Balance 0 ml Capillary Refill : Less Than 3 Seconds General Appearance: No Apparent Distress, Chronically ill HEENT: PERRL/EOMI Neck: Normal Inspection, Non Tender, Supple Respiratory: Chest Non Tender, No Accessory Muscle Use, Rales (b/l), Respiratory Distress (requiring 40% ); No Stridor; Wheezing (inspiratory Left upper lobe) Cardiovascular: No Edema (no pitting edema b/l), No JVD, Irregularly Irregular Peripheral Pulses: 2+ Dorsalis Pedis (R), 2+ Left Dors-Pedis (L), 2+ Radial Pulses (R), 2+ Radial Pulses (L) Gastrointestinal: soft, tenderness (no signs of infection , some minimal subcutaneous emphysema around incision.) Extremity: Normal Capillary Refill, Normal Inspection, No Pedal Edema Neurologic/Psychiatric: Alert, Oriented x3 Skin: Normal Color, Warm/Dry Lymphatic: No Adenopathy Results Lab Laboratory Tests 12/23/22 11:08: Glucometer 125H 12/23/22 23:37: Glucometer 76 12/24/22 03:49: White Blood Count 9.7, Red Blood Count 3.75L, Hemoglobin 13.3, Hematocrit 39L, Mean Corpuscular Volume 103H, Mean Corpuscular Hemoglobin 36H, Mean Corpuscular Hemoglobin Concent 35, Red Cell Distribution Width 14.6H, Platelet Count 136, Mean Platelet Volume 11.9, Sodium Level 136, Potassium Level 3.9, Chloride Level 102, Carbon Dioxide Level 18L, Anion Gap 16H, Blood Urea Nitrogen 7, Creatinine 0.74, Estimat Glomerular Filtration Rate 99, BUN/Creatinine Ratio 9, Glucose Level 80, Calcium Level 8.5, Magnesium Level 1.6 Microbiology 12/21/22 Gram Stain - Final, Resulted 12/21/22 Sputum Culture - Preliminary, Resulted Assessment/Plan Assessment/Plan Assessment/Plan luq abdominal pain hollow viscus perforation s/p ex lap with partial gastrectomy intermediate anticoagulation/antiplatelet Lung Crackles b/l- possible pulmonary edema or acute pneumonia developing Chronic EtOH use NPO Fluids Pain medication Observe in ICU [facility] Cardiology will consult Dr. Douglass. Consult medicine. Hold Anticoagulation/antiplatelet Awaiting bowel function Incentive spirometry Repeat CXR due to respiratory distress Consider reducing IV fluids and starting lasix if pulmonary edema BRYON DAVIS DO 12/24/227: Subjective Subjective/Events-last exam Having more difficulty breathing. Baseline 4 L NC. Easily fatigued. Has gotten a little better since Lasix. Abdomen feeling better. NG tube bothering him. NPO Denies n/v fever sweats chills shortness of breath or chest pain. Objective Exam General Appearance: No Apparent Distress, Chronically ill HEENT: PERRL/EOMI, Normal ENT Inspection Neck: Non Tender, Supple Respiratory: Chest Non Tender, No Accessory Muscle Use; No Respiratory Distress (requiring 40% ); Wheezing (inspiratory Left upper lobe) Cardiovascular: No Edema (no pitting edema b/l), No JVD, Irregularly Irregular, Tachycardia Gastrointestinal: soft, tenderness (no signs of infection , c/d/i) Neurologic/Psychiatric: Alert, Oriented x3 Skin: Normal Color, Warm/Dry Lymphatic: No Adenopathy Assessment/Plan Assessment/Plan Assessment/Plan luq abdominal pain hollow viscus perforation s/p ex lap 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 Douglass. Consult medicine. Hold Anticoagulation/antiplatelet Awaiting bowel function Incentive spirometry WIll get CT abd/pelvis c gastrograffin to evaluate staple line, possibly remove ng tomorrow and start on clears depending on CT. Encouraged incentive spirometer use Supervisory-Addendum Brief Verification & Attestation Participated in pt care: history, MDM, physical Personally performed: exam, history, MDM, supervision of care Care discussed with: Medical Student Procedures: n/a Results interpretation: Verified all documentation Verification and Attestation of Medical Student E/M Service A medical student performed and documented this service in my presence. I reviewed and verified all information documented by the medical student and made modifications to such information, when appropriate. I personally performed the physical exam and medical decision making. Bryon Davis, Dec 24, 2022,22:47 NEMESIO HODGSON Dec 24, 2022 07:01 BRYON DAVIS DO Dec 24, 2022 22:47
[2022-12-24] MEDS: dilTIAZem DRIP PRE-MIX 125 ML IV SCH ×3 (07:26→23:14)
[2022-12-24] MEDS: FLUTICASONE/VILANTEROL 100/25 MCG (14 DOSES) IH SCH (07:45)
[2022-12-24] MEDS: RT-Ipratropium/Albuterol NEB 3 ML VIAL INH SCH ×2 (07:45→21:05)
[2022-12-24] MEDS: TIOTROPIUM INH 4 GM (SPIRIVA Respimat) IH SCH (07:45)
[2022-12-24] MEDS ORDERED: FUROSEMIDE INJECTION 40 MG/4 ML VIAL IVP NR ×2 (08:00→15:45)
--- NOTE | 2022-12-24 08:18 | Progress Note ---
Subjective Subjective/Events-last exam States he is feeling okay, he gets short of breath with movement and has persistent mild to moderate abdominal pain. Has not passed gas yet, but thinks he will soon. Objective Exam Last Set of Vital Signs Vital Signs Date Time Temp Pulse Resp B/P (MAP) Pulse Ox O2 Delivery O2 Flow Rate FiO2 12/24/22 08:00 108 21 145/86 (105) 90 High Flow N/C 8.00 12/24/22 03:40 36.8 12/24/22 03:25 40 Capillary Refill : Less Than 3 Seconds I&O Intake and Output0 12/23/22 23:59 Intake Total 3200 ml Output Total 1950 ml Balance 1250 ml Intake Oral 0 ml IV Total 3200 ml Output Urine Total 1750 ml Post Void Residual 100 ml Gastric Drainage Total 100 ml General: Alert Lungs: Clear to Auscultation Heart: Other (irregularly irregular) Abdomen: Other (hypoactive bowel sounds, incision c/d/i) Extremities: No Edema Psych/Mental Status: Mood NL Results/Procedures Lab Laboratory Tests 12/23/22 11:08: Glucometer 125H 12/23/22 23:37: Glucometer 76 12/24/22 03:49: White Blood Count 9.7, Red Blood Count 3.75L, Hemoglobin 13.3, Hematocrit 39L, Mean Corpuscular Volume 103H, Mean Corpuscular Hemoglobin 36H, Mean Corpuscular Hemoglobin Concent 35, Red Cell Distribution Width 14.6H, Platelet Count 136, Mean Platelet Volume 11.9, Sodium Level 136, Potassium Level 3.9, Chloride Level 102, Carbon Dioxide Level 18L, Anion Gap 16H, Blood Urea Nitrogen 7, Creatinine 0.74, Estimat Glomerular Filtration Rate 99, BUN/Creatinine Ratio 9, Glucose Level 80, Calcium Level 8.5, Magnesium Level 1.6 Microbiology 12/22/22 MRSA Screen - Final, Complete MRSA not isolated Radiology CT abd/pelvis: IMPRESSION: 1. Large volume of intra-abdominal free air of uncertain etiology but concerning for hollow viscus perforation. There are a few foci along the left upper quadrant near the stomach which could suggest perforated ulceration. 2. 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 No dissection or significant stenosis. 3. COPD without other acute abnormality in the chest. CXR: IMPRESSION: Emphysema. No focal consolidation or swathi pulmonary edema. Endotracheal tube tip projects over the proximal trachea. Assessment/Plan Assessment/Plan (1) Acute on chronic respiratory failure Status: Acute Assessment & Plan: Worsening hypoxia overnight, now on 8 lpm supplemental oxygen (on 4 lpm at baseline). Repeat CXR, hold IVF, consider lasix pending xray. Qualifiers: Qualified Codes: J96.21 - Acute and chronic respiratory failure with hypoxia (2) Gastric perforation Status: Acute Assessment & Plan: Management per Surgery (3) Atrial fibrillation Status: Chronic Assessment & Plan: Rate normal currently. Xarelto held prior to admit related to upcoming colonoscopy. Appreciate Cardiology recommendations. 12/23 on diltiazem drip (4) Hypertension Status: Chronic Assessment & Plan: Resume home meds as needed. Qualifiers: Qualified Codes: I10 - Essential (primary) hypertension (5) Hyperlipidemia Status: Chronic (6) Coronary artery disease without angina pectoris Status: Chronic (7) Chronic systolic (congestive) heart failure Status: Chronic Assessment & Plan: Clinically stable, but not yet extubated post surgery, appreciate Cardiology recommendations. (8) Chronic obstructive pulmonary disease Status: Chronic Assessment & Plan: Oxygen dependent (4 lpm) at baseline. Resume home inhalers (9) DVT prophylaxis Status: Acute Assessment & Plan: Anticoagulation per Cardiology and Surgery recommendations SANTOS LUDWIG MD Dec 24, 2022 08:18
--- NOTE | 2022-12-24 08:34 | Cardiology Progress Note ---
Subjective Date Seen by Provider: Dec 24, 2022 Time Seen by Provider: 08:33 Subjective/Events-last exam Patient was seen at bedside, feeling better, borderline tachycardic Objective-Cardiology Exam Last Set of Vital Signs Vital Signs 12/24/22 12/24/22 12/24/22 03:25 03:40 08:00 Temp 36.8 Pulse 108 Resp 21 B/P (MAP) 145/86 (105) Pulse Ox 90 O2 Delivery High Flow N/C O2 Flow Rate 8.00 FiO2 40 I&O Intake and Output 12/24/22 00:00 Intake Total 3200 ml Output Total 1950 ml Balance 1250 ml Intake Oral 0 ml IV Total 3200 ml Output Urine Total 1750 ml Post Void Residual 100 ml Gastric Drainage Total 100 ml General: Alert, Oriented X3, Cooperative HEENT: Atraumatic Neck: Supple, No JVD Lungs: Clear to Auscultation, Normal Air Movement Heart: Normal S1, Normal S2, Other (Atrial fibrillation) Abdomen: Normal Bowel Sounds Extremities: No Edema Skin: No Rashes, No Significant Lesion Neuro: Normal Speech Psych/Mental Status: Mental Status NL, Mood NL Results Lab Laboratory Tests 12/24/22 03:49 A/P-Cardiology Admission Diagnosis Acute abdomen Acute respiratory failure Coronary artery disease Permanent atrial fibrillation Assessment/Plan Status post acute abdomen, gastric perforation, status post exploratory laparotomy done on December 21, 2022 Patient extubated, NG tube in place. Acute respiratory failure, ventilator dependent History of COPD with recurrent respiratory failure. Had multiple hospitalization in February and July 2022 Managed by primary care team Chronic permanent atrial fibrillation, borderline tachycardic, maintained on Cardizem drip Maintained on Cardizem History of ablation in April [address] Godfrey, had multiple cardiac arrest and complex hospitalization in October 2017 Continue to titrate Cardizem drip Coronary artery disease, history of stenting using 3.020 mm Promus stent to the right coronary artery done in March 2012. Stress test done on November 01, 2019 showing Baseline atrial fibrillation, decreased uptake involving the mid to apical inferior wall with no reversibility, ejection fraction 40 percent probably due to tachycardia. Patient had been having more chest pain recently, was scheduled for [facility] on December 23, 2022 as outpatient. Will postpone at this time. COPD, using oxygen at night, had a complex hospitalization with Legionella pneumonia and CMV, respiratory failure, multiple cardiac arrest in October 2017. loculated pneumonia underwent right lung decortication on January 28, 2018 resulted in hydropneumothorax and marked emphysema and had prolonged chest tube placement. History of congestive heart failure, chronic left ventricular systolic dysfunction. 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 Abdominal aortic aneurysm, had a stent placed by Dr. Hogue done in June 2021. Hypertension, continue to monitor. Hyperlipidemia, continue to monitor lipids Tobaccoyessenia, AIDAN PASTOR MD Dec 24, 2022 08:34
[2022-12-24] MEDS: PANTOPRAZOLE INJECTION 40 MG VIAL IV SCH ×2 (08:38→21:15)
--- NOTE | 2022-12-24 09:37 | Diagnostic Imaging Report ---
CHEST 1 VIEW, AP/PA ONLY Indication: Hypoxia Comparison: 12/23/2022 Findings: Worsening left basilar heterogeneous consolidations. Right upper lung zone architectural distortion: Loss is similar. Potential small left pleural effusion. Stable cardiac silhouette. Stable enteric tube. Pneumoperitoneum persists. Impression: 1. Worsening left basilar opacities could be due to edema, pneumonia or aspiration. Dictated by: Dictated on workstation # [id number]
--- NOTE | 2022-12-24 10:43 | Tele-ICU Progress Note ---
Subjective Date Seen by a Provider: Dec 24, 2022 Time Seen by a Provider: 09:35 Subjective/Events-last exam (Tele-ICU Physician , Progress Note ) Service provided via interactive audio and video telecommunications E-CARE s ystem to a patient admitted to ICU bed in [facility]. Patient is seen today due to persistent need of ICU care Available chart/ vitals / labs / Images reviewed Video assessment done using teleICU camera, rest of exam as per RN 67 yr old male admitted with abdominal pain and found to free air in abdomen. underwent exploratory lap and found to have gastric perforation. had partial gastrectomy done. Extubated on 12/22/22. on n/c. RN reports chest congestion. CXR ordered still awating dewayne done 12/24/22. sice yesterday pt had more chest congestion and increased WOB. Now requiring 10-12l o2 via n/c. he has underlying copd with hx of complex pneumonias complicated requiring decortication and prolonged chest tube insertion. impression. 1. gastric perforation s/p ex lap and partial gastrectomy. 2. Afib with RVR on cardizem drip. 3. previous hx of aspergillosis s/p prolonged hospitalisation at . 4. Alcohol abuse history. 5. hx of copd Recomemdations. 1. continue iv hydration and monitor urine out put. 2. Cardizem per cardiology. 3. IV antibiotics 4. DVT prophylaxis 5. Bronchiolar therapy 6. iv lasix X1 now 7. Decrease ivf to 75cc/hr 8. will give iv dig 0.5mg ivp x1 to control HR Coordination of care with primary care physician and bedside consultants. I am remotely monitoring this patient from Tele icu station in [place]. I am unable to do the bedside exam, and history/physical and pertinent information is taken from other notes in the computer and bedside staff. Certain portions of this document may have been dictated utilizing voice recognition technology such as [employer]. Inherent to this technology, typographical and grammatical errors may exist. As much as I am diligent to identify and correct to these mistakes, some errors may remain in the document. Critical care time devoted to this patient today is approximately is--25 minutes. Sepsis Event Evaluation Height, Weight, BMI Height: 6'4.00" Weight: 154lbs. 2.0oz. [id number]; 21.57 BMI Method:Stated Exam Exam Patient acknowledged, consented, and participated in this virtual visit which was conducted using real time audio/video Vital Signs Date Time Temp Pulse Resp B/P (MAP) Pulse Ox O2 Delivery O2 Flow Rate FiO2 12/24/22 09:00 125 24 114/78 (90) 93 High Flow N/C 10.00 12/24/22 08:00 108 21 145/86 (105) 90 High Flow N/C 8.00 12/24/22 08:00 92 Nasal Cannula 8.00 12/24/22 07:58 High Flow N/C 8.00 12/24/22 07:28 94 12/24/22 07:26 98 151/106 12/24/22 07:00 104 22 140/80 (100) 93 NIV Bilevel 40.00 12/24/22 06:00 101 21 137/90 (106) 93 NIV Bilevel 40.00 12/24/22 04:00 89 16 134/84 (101) 92 NIV Bilevel 40.00 12/24/22 03:40 36.8 NIV Bilevel 40.00 12/24/22 03:25 94 NIV Bilevel 40 12/24/22 03:00 108 20 142/76 (98) 93 NIV Bilevel 40.00 12/24/22 02:00 98 19 119/67 (84) 93 NIV Bilevel 40.00 12/24/22 01:59 98 20 93 40.00 12/24/22 01:00 96 18 132/73 (92) 99 NIV Bilevel 40.00 12/24/22 01:00 89 12/24/22 00:57 NIV Bilevel 40.00 12/24/22 00:00 101 26 121/77 (92) 95 NIV Bilevel 30.00 12/23/22 23:45 90 129/86 12/23/22 23:40 96 NIV Bilevel 30 12/23/22 23:39 37.0 90 16 129/86 (100) 91 NIV Bilevel 30.00 12/23/22 23:00 144 15 135/76 (95) 92 NIV Bilevel 30.00 12/23/22 22:21 108 22 92 30.00 12/23/22 22:00 128 21 133/75 (94) 89 NIV Bilevel 30.00 12/23/22 21:20 NIV Bilevel 30.00 11/8/23 21:00 112 21 149/81 (103) 90 NIV Bilevel 50.00 12/23/22 20:02 NIV Bilevel 50.00 12/23/22 20:00 134 21 147/93 (111) 90 NIV Bilevel 30.00 12/23/22 19:37 NIV Bilevel 30.00 12/23/22 19:30 93 High Flow N/C 4.00 12/23/22 19:00 36.5 87 24 19/72 (55) 93 High Flow N/C 4.00 12/23/22 19:00 104 12/23/22 18:38 92 High Flow N/C 5.00 12/23/22 18:37 92 High Flow N/C 5.00 12/23/22 18:00 104 132/71 (91) 92 High Flow N/C 4.00 12/23/22 17:00 96 138/71 (93) 90 High Flow N/C 4.00 12/23/22 16:49 37.0 12/23/22 16:00 92 Nasal Cannula 4.00 12/23/22 16:00 84 121/65 12/23/22 16:00 80 124/68 (86) 95 High Flow N/C 4.00 12/23/22 15:00 83 127/72 (90) 93 High Flow N/C 4.00 12/23/22 14:00 84 108/89 (95) 94 High Flow N/C 4.00 12/23/22 13:00 78 117/67 (84) 94 High Flow N/C 4.00 12/23/22 12:06 85 12/23/22 12:00 94 Nasal Cannula 4.00 12/23/22 12:00 73 129/65 (86) 90 High Flow N/C 4.00 12/23/22 11:41 36.7 12/23/22 11:00 80 13 123/63 (83) 94 High Flow N/C 4.00 I & O 12/24/22 07:00 Intake Total 3700 ml Output Total 3300 ml Balance 400 ml Height & Weight Height: 6'4.00" Weight: 154lbs. 2.0oz. [id number]; 21.57 BMI Method:Stated General Appearance: No Apparent Distress, Chronically ill HEENT: PERRL/EOMI Neck: Normal Inspection, Non Tender, Supple Respiratory: Chest Non Tender, No Accessory Muscle Use, Rales (b/l), Respiratory Distress (requiring 40% ); No Stridor; Wheezing (inspiratory Left upper lobe) Cardiovascular: No Edema (no pitting edema b/l), No JVD, Irregularly Irregular Capillary Refill: Less Than 3 Seconds Peripheral Pulses: 2+ Dorsalis Pedis (R), 2+ Left Dors-Pedis (L), 2+ Radial Pulses (R), 2+ Radial Pulses (L) Gastrointestinal: soft, tenderness (no signs of infection , some minimal subcutaneous emphysema around incision.) Extremity: Normal Capillary Refill, Normal Inspection, No Pedal Edema Neurologic/Psychiatric: Alert, Oriented x3 Skin: Normal Color, Warm/Dry Lymphatic: No Adenopathy Results Lab Laboratory Tests 12/23/22 05:55 12/24/22 03:49 Assessment/Plan Assessment/Plan as above Critical Care: Critically Ill Patient Time spent with patient (mins): 25 ALIX BENTLEY MD Dec 24, 2022 10:43
[2022-12-24] MEDS ORDERED: DIGOXIN INJECTION 0.25 MG/ML 2 ML AMPULE IV NR (11:00)
[2022-12-24] MEDS: ENOXAPARIN 40 MG/0.4 ML SYRINGE SC SCH (12:59)
[2022-12-24] MEDS: LACTATED RINGERS 1,000 ML 1,000 ML IV SCH (15:58)
[2022-12-24 21:07] VITALS: BP 134/82
[2022-12-25 03:05] VITALS: BP 136/85
[2022-12-25] MEDS: ceFAZolin INJECTION 2,000 MG in NS (IVPB) 50 ML 50 ML IV SCH (03:48)
[2022-12-25] MEDS: morphine INJ 4 MG/ML 1 ML (VIAL/SYRINGE) IVP PRN ×3 (04:29→18:25)
[2022-12-25 05:00] LABS: HEMATOCRIT 42 % (40-54); HEMOGLOBIN 14.3 g/dL (13.3-17.7); MEAN CORPUSCULAR HEMOGLOBIN 35 pg (25-34); MEAN CORPUSCULAR HGB CONC 34 g/dL (32-36); MEAN CORPUSCULAR VOLUME 100 fL (80-99); MEAN PLATELET VOLUME 10.2 fL (9.0-12.2); PLATELET COUNT 159 10^3/uL (130-400); WHITE BLOOD COUNT 13.1 10^3/uL (4.3-11.0)
[2022-12-25 05:10] LABS: POTASSIUM 2.8 MMOL/L (3.6-5.0)
[2022-12-25 05:12] LABS: CALCIUM 9.1 MG/DL (8.5-10.1)
[2022-12-25 05:16] LABS: CREATININE SERUM 0.82 MG/DL (0.60-1.30); PHOSPHORUS 2.5 MG/DL (2.3-4.7)
[2022-12-25 05:18] LABS: MAGNESIUM 1.6 MG/DL (1.6-2.4)
[2022-12-25] MEDS: MAGNESIUM 1 GM/100 ML IVPB 100 ML IV SCH ×4 (05:27→07:44)
[2022-12-25] MEDS: POTASSIUM CL 10MEQ/50ML IVPB 50 ML IV SCH ×6 (05:27→13:24)
[2022-12-25] MEDS: POTASSIUM CHLORIDE 20 MEQ TABLET PO SCH (05:28)
[2022-12-25] MEDS: metroNIDAZOLE 500MG/100ML IVPB 100 ML IV SCH (05:56)
[2022-12-25] MEDS: dilTIAZem DRIP PRE-MIX 125 ML IV SCH ×2 (07:31→16:02)
[2022-12-25] MEDS: FLUTICASONE/VILANTEROL 100/25 MCG (14 DOSES) IH SCH (08:00)
[2022-12-25] MEDS: RT-Ipratropium/Albuterol NEB 3 ML VIAL INH SCH ×2 (08:00→20:55)
[2022-12-25] MEDS: TIOTROPIUM INH 4 GM (SPIRIVA Respimat) IH SCH (08:00)
[2022-12-25 08:07] VITALS: BP 137/86
[2022-12-25] MEDS: PANTOPRAZOLE INJECTION 40 MG VIAL IV SCH ×2 (08:38→20:46)
--- NOTE | 2022-12-25 08:46 | Diagnostic Imaging Report ---
CHEST 1 VIEW, AP/PA ONLY Indication: Respiratory failure Comparison: 12/24/2022 Findings: Stable hyperinflated lungs. Left basilar heterogeneous consolidations are unchanged. No pleural effusion or pneumothorax. Normal heart size. Stable enteric tube. Surgical delbert are noted in the upper abdomen. Pneumoperitoneum is similar. Impression: 1. Persistent left basilar opacities that could be due to atelectasis, edema or aspiration. Dictated by: Dictated on workstation # [id number]
--- NOTE | 2022-12-25 09:36 | Progress Note ---
Subjective Subjective/Events-last exam Pt states he is feeling okay, his breathing feels okay when he is using bipap. No flatus yet. Objective Exam Last Set of Vital Signs Vital Signs Date Time Temp Pulse Resp B/P (MAP) Pulse Ox O2 Delivery O2 Flow Rate FiO2 12/25/22 09:00 144 27 147/76 (96) 94 NIV Bilevel 45.00 12/25/22 08:00 45 12/25/22 07:59 36.5 Capillary Refill : Less Than 3 Seconds I&O Intake and Output 12/25/22 00:00 Intake Total 2525 ml Output Total 4500 ml Balance -1975 ml Intake Oral 0 ml IV Total 2525 ml Output Urine Total 4000 ml Gastric Drainage Total 500 ml General: Alert, No Acute Distress Lungs: Other (decreased air movement) Heart: Other (tachcyardic, irregular) Extremities: No Edema Neuro: Normal Speech Psych/Mental Status: Mood NL Results/Procedures Lab Laboratory Tests 12/24/22 17:04: Glucometer 110 12/24/22 23:30: Glucometer 88 12/25/22 04:48: White Blood Count 13.1H, Red Blood Count 4.15L, Hemoglobin 14.3, Hematocrit 42, Mean Corpuscular Volume 100H, Mean Corpuscular Hemoglobin 35H, Mean Corpuscular Hemoglobin Concent 34, Red Cell Distribution Width 14.2, Platelet Count 159, Mean Platelet Volume 10.2, Sodium Level 139, Potassium Level 2.8L, Chloride Level 96L, Carbon Dioxide Level 26, Anion Gap 17H, Blood Urea Nitrogen 8, Cr eatinine 0.82, Estimat Glomerular Filtration Rate 96, BUN/Creatinine Ratio 10, Glucose Level 98, Calcium Level 9.1, Phosphorus Level 2.5, Magnesium Level 1.6 Microbiology 12/22/22 MRSA Screen - Final, Complete MRSA not isolated Radiology CT abd/pelvis: IMPRESSION: 1. Large volume of intra-abdominal free air of uncertain etiology but concerning for hollow viscus perforation. There are a few foci along the left upper quadrant near the stomach which could suggest perforated ulceration. 2. 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 No dissection or significant stenosis. 3. COPD without other acute abnormality in the chest. CXR: IMPRESSION: Emphysema. No focal consolidation or swathi pulmonary edema. Endotracheal tube tip projects over the proximal trachea. Assessment/Plan Assessment/Plan (1) Acute on chronic respiratory failure Status: Acute Assessment & Plan: 12/24 Worsening hypoxia overnight, now on 8 lpm supplemental oxygen (on 4 lpm at baseline). Repeat CXR, hold IVF, consider lasix pending xray. 12/25- had 20 mg lasix yesterday, will try 40 mg today given persistent worsenin g. Will broaden abx to Zosyn as well given possible pneumonia on xray Qualifiers: Qualified Codes: J96.21 - Acute and chronic respiratory failure with hypoxia (2) Gastric perforation Status: Acute Assessment & Plan: Management per Surgery (3) Atrial fibrillation Status: Chronic Assessment & Plan: Rate normal currently. Xarelto held prior to admit related to upcoming colonoscopy. Appreciate Cardiology recommendations. 12/23 on diltiazem drip (4) Hypertension Status: Chronic Assessment & Plan: Resume home meds as needed. Qualifiers: Qualified Codes: I10 - Essential (primary) hypertension (5) Hyperlipidemia Status: Chronic (6) Coronary artery disease without angina pectoris Status: Chronic (7) Chronic systolic (congestive) heart failure Status: Chronic Assessment & Plan: Clinically stable, but not yet extubated post surgery, appreciate Cardiology recommendations. (8) Chronic obstructive pulmonary disease Status: Chronic Assessment & Plan: Oxygen dependent (4 lpm) at baseline. Resume home inhalers (9) DVT prophylaxis Status: Acute Assessment & Plan: Anticoagulation per Cardiology and Surgery recommendations SANTOS LUDWIG MD Dec 25, 2022 09:36
--- NOTE | 2022-12-25 10:07 | Tele-ICU Progress Note ---
Subjective Date Seen by a Provider: Dec 25, 2022 Time Seen by a Provider: 09:59 Subjective/Events-last exam (Tele-ICU Physician , Progress Note ) Service provided via interactive audio and video telecommunications E-CARE system to a patient admitted to ICU bed in [facility]. Patient is seen today due to persistent need of ICU care Available chart/ vitals / labs / Images reviewed Video assessment done using teleICU camera, rest of exam as per RN 67 yr old male admitted with abdominal pain and found to free air in abdomen. underwent exploratory lap and found to have gastric perforation. had partial gastrectomy done. Extubated on 12/22/22. on n/c. RN reports chest congestion. CXR ordered still awating dewayne done 12/24/22. sice yesterday pt had more chest congestion and increased WOB. Now requiring 10-12l o2 via n/c. he has underlying copd with hx of complex pneumonias complicated requiring decortication and prolonged chest tube insertion. 12/25/22 He remained on bipap but fio2 devreased to 45%. Hr fluctuating between 105-130's CXR showing left basilar infiltrate. Rt side infiltrate improved. no fever. impression. 1. gastric perforation s/p ex lap and partial gastrectomy. 2. Afib with RVR on cardizem drip. 3. previous hx of aspergillosis s/p prolonged hospitalisation at . 4. Alcohol abuse history. 5. Acute Hypoxic respiratory failure due to pneumonia and copd Recomemdations. 1. Continue bipap and wean as tolerated. 2. Cardizem per cardiology. 3. IV antibiotics 4. DVT prophylaxis 5. Bronchiolar therapy 6. iv lasix prn 7. Decrease ivf to 75cc/hr Coordination of care with primary care physician and bedside consultants. I am remotely monitoring this patient from Tele icu station in [place]. I am unable to do the bedside exam, and history/physical and pertinent information is taken from other notes in the computer and bedside staff. Certain portions of this document may have been dictated utilizing voice recognition technology such as [employer]. Inherent to this technology, typographical and grammatical errors may exist. As much as I am diligent to identify and correct to these mistakes, some errors may remain in the document. Critical care time devoted to this patient today is approximately is--25 minutes. Sepsis Event Evaluation Height, Weight, BMI Height: 6'4.00" Weight: 154lbs. 2.0oz. 69.896198ag; 20.71 BMI Method:Stated Exam Exam Patient acknowledged, consented, and participated in this virtual visit which was conducted using real time audio/video Vital Signs Date Time Temp Pulse Resp B/P (MAP) Pulse Ox O2 Delivery O2 Flow Rate FiO2 12/25/22 09:00 144 27 147/76 (96) 94 NIV Bilevel 45.00 12/25/22 08:10 45.00 12/25/22 08:07 124 24 95 55.00 12/25/22 08:00 115 24 137/86 (104) 95 12/25/22 08:00 96 NIV Bilevel 45.00 12/25/22 08:00 96 NIV Bilevel 45 12/25/22 07:59 36.5 12/25/22 07:31 108 144/84 12/25/22 07:00 99 12/25/22 07:00 105 22 142/78 (102) 94 NIV Bilevel 55.00 12/25/22 06:00 113 28 148/78 (101) 94 NIV Bilevel 55.00 12/25/22 05:00 110 22 142/83 (102) 96 NIV Bilevel 55.00 12/25/22 04:00 104 25 144/109 (121) 96 NIV Bilevel 55.00 12/25/22 03:51 36.8 12/25/22 03:51 94 NIV Bilevel 55 12/25/22 03:05 100 26 94 55.00 12/25/22 03:00 112 23 147/91 (109) 94 NIV Bilevel 55.00 12/25/22 02:00 110 24 141/84 (103) 93 NIV Bilevel 55.00 12/25/22 01:00 125 23 141/79 (99) 95 NIV Bilevel 55.00 12/25/22 01:00 113 12/25/22 00:00 137 26 142/75 (97) 96 NIV Bilevel 55.00 12/24/22 23:35 36.8 12/24/22 23:34 95 NIV Bilevel 55 12/24/22 23:14 122 104/78 12/24/22 23:00 122 24 104/78 (87) 95 NIV Bilevel 55.00 12/24/22 22:00 115 27 136/86 (103) 95 NIV Bilevel 55.00 12/24/22 21:10 NIV Bilevel 55.00 12/24/22 21:07 128 25 96 65.00 12/24/22 21:00 96 24 136/82 (100) 97 NIV Bilevel 65.00 12/24/22 20:15 111 23 143/80 (101) 96 NIV Bilevel 65.00 12/24/22 20:00 107 24 143/78 (99) 93 NIV Bilevel 65.00 12/24/22 19:52 91 NIV Bilevel 65 12/24/22 19:45 113 24 141/72 (95) 94 NIV Bilevel 65.00 12/24/22 19:45 36.4 NIV Bilevel 65.00 12/24/22 19:30 133 22 144/84 (104) 84 High Flow N/C 8.00 12/24/22 19:15 104 22 135/78 (97) 91 High Flow N/C 8.00 12/24/22 19:00 122 21 147/78 (101) 90 High Flow N/C 8.00 12/24/22 19:00 105 12/24/22 18:00 112 26 139/79 (99) 91 High Flow N/C 8.00 12/24/22 17:41 High Flow N/C 8.00 12/24/22 17:00 107 26 144/84 (104) 95 High Flow N/C 12.00 12/24/22 16:11 37.6 12/24/22 16:00 95 Nasal Cannula 12.00 12/24/22 16:00 99 26 141/70 (93) 95 High Flow N/C 12.00 12/24/22 15:25 97 146/81 12/24/22 15:00 112 22 146/81 (102) 90 High Flow N/C 12.00 12/24/22 14:09 High Flow N/C 12.00 12/24/22 14:00 113 16 148/87 (107) 90 NIV Bilevel 60.00 12/24/22 13:00 110 25 161/79 (106) 95 NIV Bilevel 60.00 12/24/22 12:30 118 12/24/22 12:00 96 21 150/92 (111) 95 NIV Bilevel 60.00 12/24/22 12:00 94 NIV Bilevel 8.00 60 12/24/22 11:52 37.0 12/24/22 11:24 NIV Bilevel 60.00 12/24/22 11:00 126 25 137/76 (96) 91 High Flow N/C 10.00 12/24/22 10:00 128 24 129/73 (91) 92 High Flow N/C 10.00 I & O 12/25/22 06:59 Intake Total 1875 ml Output Total 3100 ml Balance -1225 ml Height & Weight Height: 6'4.00" Weight: 154lbs. 2.0oz. 69.011496af; 20.71 BMI Method:Stated General Appearance: No Apparent Distress, Chronically ill HEENT: PERRL/EOMI, Normal ENT Inspection Neck: Non Tender, Supple Respiratory: Chest Non Tender, No Accessory Muscle Use; No Respiratory Distress (requiring 40% ); Wheezing (inspiratory Left upper lobe) Cardiovascular: No Edema (no pitting edema b/l), No JVD, Irregularly Irregular, Tachycardia Capillary Refill: Less Than 3 Seconds Peripheral Pulses: 2+ Dorsalis Pedis (R), 2+ Left Dors-Pedis (L), 2+ Radial Pulses (R), 2+ Radial Pulses (L) Gastrointestinal: soft, tenderness (no signs of infection , c/d/i) Extremity: Normal Capillary Refill, Normal Inspection, No Pedal Edema Neurologic/Psychiatric: Alert, Oriented x3 Skin: Normal Color, Warm/Dry Lymphatic: No Adenopathy Results Lab Laboratory Tests 12/24/22 03:49 12/25/22 04:48 Assessment/Plan Assessment/Plan as above Critical Care: Critically Ill Patient Time spent with patient (mins): 25 ALIX BENTLEY MD Dec 25, 2022 10:07
[2022-12-25] MEDS ORDERED: FUROSEMIDE INJECTION 40 MG/4 ML VIAL IVP ONE (10:30)
[2022-12-25] MEDS ORDERED: DIATRIZOATE MEGLUM/SODIUM 37% 120 ML (GASTROGRAFIN) PO ONE (10:30)
[2022-12-25] MEDS ORDERED: PIPERACILLIN/Tazobactam 4.5 GM in NS (IVPB) 100 ML 100 ML IV NR (12:00)
--- NOTE | 2022-12-25 12:00 | Progress Note - Surgery ---
Subjective Date Seen by a Provider: Dec 25, 2022 Time Seen by a Provider: 09:14 Subjective/Events-last exam Feeling okay. Breathing he states a little better. On bipap at this time. Abdomen, pain controlled. NPO Going for ct with oral contrast in a little while. Denies n/v fever sweats chills or chest pain. Objective Exam Vital Signs Date Time Temp Pulse Resp B/P (MAP) Pulse Ox O2 Delivery O2 Flow Rate FiO2 12/25/22 10:00 103 110/77 (87) 94 NIV Bilevel 45.00 12/25/22 09:00 144 27 147/76 (96) 94 NIV Bilevel 45.00 12/25/22 08:10 45.00 12/25/22 08:07 124 24 95 55.00 12/25/22 08:00 115 24 137/86 (104) 95 12/25/22 08:00 96 NIV Bilevel 45.00 12/25/22 08:00 96 NIV Bilevel 45 12/25/22 07:59 36.5 12/25/22 07:31 108 144/84 12/25/22 07:00 99 12/25/22 07:00 105 22 142/78 (102) 94 NIV Bilevel 55.00 12/25/22 06:00 113 28 148/78 (101) 94 NIV Bilevel 55.00 12/25/22 05:00 110 22 142/83 (102) 96 NIV Bilevel 55.00 12/25/22 04:00 104 25 144/109 (121) 96 NIV Bilevel 55.00 12/25/22 03:51 36.8 12/25/22 03:51 94 NIV Bilevel 55 12/25/22 03:05 100 26 94 55.00 12/25/22 03:00 112 23 147/91 (109) 94 NIV Bilevel 55.00 12/25/22 02:00 110 24 141/84 (103) 93 NIV Bilevel 55.00 12/25/22 01:00 125 23 141/79 (99) 95 NIV Bilevel 55.00 12/25/22 01:00 113 12/25/22 00:00 137 26 142/75 (97) 96 NIV Bilevel 55.00 12/24/22 23:35 36.8 12/24/22 23:34 95 NIV Bilevel 55 12/24/22 23:14 122 104/78 12/24/22 23:00 122 24 104/78 (87) 95 NIV Bilevel 55.00 12/24/22 22:00 115 27 136/86 (103) 95 NIV Bilevel 55.00 12/24/22 21:10 NIV Bilevel 55.00 12/24/22 21:07 128 25 96 65.00 12/24/22 21:00 96 24 136/82 (100) 97 NIV Bilevel 65.00 12/24/22 20:15 111 23 143/80 (101) 96 NIV Bilevel 65.00 12/24/22 20:00 107 24 143/78 (99) 93 NIV Bilevel 65.00 12/24/22 19:52 91 NIV Bilevel 65 12/24/22 19:45 113 24 141/72 (95) 94 NIV Bilevel 65.00 12/24/22 19:45 36.4 NIV Bilevel 65.00 12/24/22 19:30 133 22 144/84 (104) 84 High Flow N/C 8.00 12/24/22 19:15 104 22 135/78 (97) 91 High Flow N/C 8.00 12/24/22 19:00 122 21 147/78 (101) 90 High Flow N/C 8.00 12/24/22 19:00 105 12/24/22 18:00 112 26 139/79 (99) 91 High Flow N/C 8.00 12/24/22 17:41 High Flow N/C 8.00 12/24/22 17:00 107 26 144/84 (104) 95 High Flow N/C 12.00 12/24/22 16:11 37.6 12/24/22 16:00 95 Nasal Cannula 12.00 12/24/22 16:00 99 26 141/70 (93) 95 High Flow N/C 12.00 12/24/22 15:25 97 146/81 12/24/22 15:00 112 22 146/81 (102) 90 High Flow N/C 12.00 12/24/22 14:09 High Flow N/C 12.00 12/24/22 14:00 113 16 148/87 (107) 90 NIV Bilevel 60.00 12/24/22 13:00 110 25 161/79 (106) 95 NIV Bilevel 60.00 12/24/22 12:30 118 12/24/22 12:00 96 21 150/92 (111) 95 NIV Bilevel 60.00 12/24/22 12:00 94 NIV Bilevel 8.00 60 I & O 12/25/22 07:00 Intake Total 1875 ml Output Total 3100 ml Balance -1225 ml Capillary Refill : Less Than 3 Seconds General Appearance: No Apparent Distress, Chronically ill HEENT: PERRL/EOMI, Normal ENT Inspection Neck: Non Tender, Supple Respiratory: Chest Non Tender, No Accessory Muscle Use; No Respiratory Distress (requiring 40% ); Wheezing (inspiratory Left upper lobe) Cardiovascular: No Edema (no pitting edema b/l), No JVD, Irregularly Irregular, Tachycardia Peripheral Pulses: 2+ Dorsalis Pedis (R), 2+ Left Dors-Pedis (L), 2+ Radial Pulses (R), 2+ Radial Pulses (L) Gastrointestinal: soft, tenderness (no signs of infection , c/d/i minimal tenderness) Extremity: Normal Capillary Refill, Normal Inspection, No Pedal Edema Neurologic/Psychiatric: Alert, Oriented x3 Skin: Normal Color, Warm/Dry Lymphatic: No Adenopathy Results Lab Laboratory Tests 12/24/22 17:04: Glucometer 110 12/24/22 23:30: Glucometer 88 12/25/22 04:48: White Blood Count 13.1H, Red Blood Count 4.15L, Hemoglobin 14.3, Hematocrit 42, Mean Corpuscular Volume 100H, Mean Corpuscular Hemoglobin 35H, Mean Corpuscular Hemoglobin Concent 34, Red Cell Distribution Width 14.2, Platelet Count 159, Mean Platelet Volume 10.2, Sodium Level 139, Potassium Level 2.8L, Chloride Level 96L, Carbon Dioxide Level 26, Anion Gap 17H, Blood Urea Nitrogen 8, Creatinine 0.82, Estimat Glomerular Filtration Rate 96, BUN/Creatinine Ratio 10, Glucose Level 98, Calcium Level 9.1, Phosphorus Level 2.5, Magnesium Level 1.6 12/25/22 11:46: Glucometer 125H Microbiology 12/22/22 MRSA Screen - Final, Complete MRSA not isolated Assessment/Plan Assessment/Plan Assessment/Plan luq abdominal pain hollow viscus perforation s/p ex lap 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 Douglass. Consult medicine. Hold Anticoagulation/antiplatelet Awaiting bowel function Incentive spirometry WIll get CT abd/pelvis c gastrograffin to evaluate staple line, possibly remove ng today and start on clears depending on CT. Encouraged incentive spirometer use BRYON KHALIL DO Dec 25, 2022 12:00
[2022-12-25] MEDS: ENOXAPARIN 40 MG/0.4 ML SYRINGE SC SCH (12:07)
[2022-12-25] MEDS ORDERED: FUROSEMIDE INJECTION 40 MG/4 ML VIAL IVP NR (13:00)
[2022-12-25] MEDS: LACTATED RINGERS 1,000 ML 1,000 ML IV SCH (13:59)
--- NOTE | 2022-12-25 16:48 | Diagnostic Imaging Report ---
PROCEDURE: CT abdomen and pelvis without contrast. TECHNIQUE: Multiple contiguous axial images were obtained through the abdomen and pelvis without the use of intravenous contrast. Auto Exposure Controls were utilized during the CT exam to meet ALARA standards for radiation dose reduction. INDICATION: Gastric surgery, assess stable integrity. FINDINGS: OG catheter along the greater curvature of the distal stomach. There is postop subcutaneous gas along the abdominal wall. There is a small amount of pneumoperitoneum, presumed postsurgical. Images were obtained prior to and following the instillation of contrast through the indwelling NG catheter. The post-contrasted film showed no extravasation. There is patency of the gastric outlet. Contrast reaches the proximal small bowel and traverses the duodenum into the left upper quadrant. No leak. No fluid collection. No hemorrhage. Aortobiiliac stent graft device is present with unruptured fusiform infrarenal abdominal aortic aneurysmal sac measuring 6 cm. Kidneys are unobstructed. Small-volume free fluid and small left greater than right dependent basilar nonloculated pleural effusions are present. IMPRESSION: 1. No contrast extravasation or gastric outlet obstruction. Contrast administered through the OG opacifies the stomach, duodenum, and proximal left upper quadrant small bowel with no leak. 2. Small amounts of presumed residual postoperative pneumoperitoneum and subcutaneous emphysema. No bowel obstruction. 3. Small pleural effusions, nonloculated. No abdominopelvic abscess or hematoma. Dictated by: Dictated on workstation # [id number]
[2022-12-25] MEDS: PIPERACILLIN/Tazobactam 4.5 GM in NS (IVPB) 100 ML 100 ML IV SCH (17:52)
[2022-12-26] VITALS (9 sets, daily range): BP systolic 116–137; BP diastolic 76–119
[2022-12-26] MEDS: dilTIAZem DRIP PRE-MIX 125 ML IV SCH ×2 (00:02→18:57)
[2022-12-26] MEDS: morphine INJ 4 MG/ML 1 ML (VIAL/SYRINGE) IVP PRN (01:10)
[2022-12-26] MEDS ORDERED: meTOprolol INJECTION 5 MG/5 ML VIAL ONE (01:21)
[2022-12-26] MEDS ORDERED: meTOprolol INJECTION 5 MG/5 ML VIAL IV ONE (01:30)
[2022-12-26 01:42] LABS: BASOPHILS % (AUTO) 0 % (0-10); EOSINOPHILS % (AUTO) 0 % (0-10); HEMATOCRIT 43 % (40-54); HEMOGLOBIN 14.8 g/dL (13.3-17.7); LYMPHOCYTES # (AUTO) 0.7 10^3/uL (1.0-4.0); LYMPHOCYTES % (AUTO) 6 % (12-44); MEAN CORPUSCULAR HEMOGLOBIN 35 pg (25-34); MEAN CORPUSCULAR HGB CONC 35 g/dL (32-36); MEAN CORPUSCULAR VOLUME 100 fL (80-99); MEAN PLATELET VOLUME 10.4 fL (9.0-12.2); MONOCYTES # (AUTO) 0.9 10^3/uL (0.0-1.0); MONOCYTES % (AUTO) 8 % (0-12); NEUTROPHILS # (AUTO) 10.1 10^3/uL (1.8-7.8); NEUTROPHILS % (AUTO) 86 % (42-75); PLATELET COUNT 182 10^3/uL (130-400); WHITE BLOOD COUNT 11.8 10^3/uL (4.3-11.0)
[2022-12-26 01:49] LABS: POTASSIUM 3.2 MMOL/L (3.6-5.0)
[2022-12-26 01:50] LABS: CALCIUM 9.2 MG/DL (8.5-10.1)
[2022-12-26 01:55] LABS: CREATININE SERUM 0.86 MG/DL (0.60-1.30)
[2022-12-26 01:58] LABS: MAGNESIUM 1.8 MG/DL (1.6-2.4)
[2022-12-26] MEDS: PIPERACILLIN/Tazobactam 4.5 GM in NS (IVPB) 100 ML 100 ML IV SCH ×3 (02:04→19:43)
[2022-12-26 02:15] LABS: LYMPHOCYTES % (MANUAL) 10 %; MONOCYTES % (MANUAL) 3 %; NEUTROPHILS % (MANUAL) 87 %; RBC MORPH NORMAL
[2022-12-26] MEDS: POTASSIUM CL 10MEQ/50ML IVPB 50 ML IV SCH (04:36)
[2022-12-26] MEDS: POTASSIUM CHLORIDE 20 MEQ TABLET PO SCH ×3 (04:47→09:45)
[2022-12-26] MEDS: MAGNESIUM 1 GM/100 ML IVPB 100 ML IV SCH ×3 (04:47→08:02)
[2022-12-26] MEDS: RT-Ipratropium/Albuterol NEB 3 ML VIAL INH SCH ×2 (08:06→21:50)
[2022-12-26] MEDS: FLUTICASONE/VILANTEROL 100/25 MCG (14 DOSES) IH SCH (08:06)
[2022-12-26] MEDS: TIOTROPIUM INH 4 GM (SPIRIVA Respimat) IH SCH (08:07)
--- NOTE | 2022-12-26 09:02 | Tele-ICU Progress Note ---
Progress Note video rounds completed. 67 y/o male presented with abdominal pain and free air. Taken to OR on 12/21 and found to have gastric perforation. Underwent partial gastric resection. Has a fib/rvr on cardizem drip and followed by cardiology On zosyn for gastric perforation PE: resting comfortably HR: 120-140 a fib BP: 147/75 IMP: gastric perf PLAN: continuing antibiotics and cardizem drip Focused Exam Height, Weight, BMI Height: 6'4.00" Weight: 154lbs. 2.0oz. 69.455908gd; 20.58 BMI Method:Stated Labs Laboratory Tests 12/26/22 01:31 Labs Laboratory Tests 12/26/22 01:31 Results Results/Procedures Labs Laboratory Tests 12/25/22 04:48 12/26/22 01:31 Patient resulted labs reviewed. Results Labs Labs Laboratory Tests 12/25/22 11:46: Glucometer 125H 12/25/22 18:36: Glucometer 99 12/26/22 01:31: White Blood Count 11.8H, Red Blood Count 4.29L, Hemoglobin 14.8, Hematocrit 43, Mean Corpuscular Volume 100H, Mean Corpuscular Hemoglobin 35H, Mean Corpuscular Hemoglobin Concent 35, Red Cell Distribution Width 14.2, Platelet Count 182, Mean Platelet Volume 10.4, Immature Granulocyte % (Auto) 1, Neutrophils (%) (Auto) 86H, Lymphocytes (%) (Auto) 6L, Monocytes (%) (Auto) 8, Eosinophils (%) (Auto) 0, Basophils (%) (Auto) 0, Neutrophils # (Auto) 10.1H, Lymphocytes # ( Auto) 0.7L, Monocytes # (Auto) 0.9, Eosinophils # (Auto) 0.0, Basophils # (Auto) 0.0, Immature Granulocyte # (Auto) 0.1, Neutrophils % (Manual) 87, Lymphocytes % (Manual) 10, Monocytes % (Manual) 3, Blood Morphology Comment NORMAL, Sodium Level 137, Potassium Level 3.2L, Chloride Level 96L, Carbon Dioxide Level 27, Anion Gap 14, Blood Urea Nitrogen 12, Creatinine 0.86, Estimat Glomerular Filtration Rate 95, BUN/Creatinine Ratio 14, Glucose Level 127H, Calcium Level 9.2, Magnesium Level 1.8 Microbiology 12/22/22 MRSA Screen - Final, Complete MRSA not isolated VIGNESH TOTH MD Dec 26, 2022 09:02
[2022-12-26] MEDS: PANTOPRAZOLE INJECTION 40 MG VIAL IV SCH ×2 (09:42→21:00)
[2022-12-26] MEDS: meTOprolol INJECTION 5 MG/5 ML VIAL IV PRN ×2 (09:54→14:04)
--- NOTE | 2022-12-26 09:57 | Physical Therapy Progress Note ---
Therapy Progress Note Nursing present, requests hold for patient at this time due to n/v. Nurse states she help patient to chair this PM as he is able. We will return for eval 12/28. MALU TANG PT Dec 26, 2022 09:57
[2022-12-26] MEDS: ONDANSETRON INJECTION 4 MG/2 ML (SDV) IVP PRN (10:59)
--- NOTE | 2022-12-26 11:54 | Progress Note - Surgery ---
Subjective Time Seen by a Provider: 10:32 Subjective/Events-last exam Pt seen and examined, he states he tried to take some of the liquids and he vomited. He showed me what came up and it was more of spit up saliva. He states he still has not had BM or flatus; "but I feel it coming". He states his abdomen is worse than yesterday, but yesterday it was the best it has been. He is not walking and said he sent PT away this morning, wanted them to come b ack later to walk him. Review of Systems Pulmonary: Dyspnea, Cough Cardiovascular: Palpitations; No: Chest Pain Gastrointestinal: Nausea, Vomiting, Abdominal Pain Objective Exam Vital Signs Date Time Temp Pulse Resp B/P (MAP) Pulse Ox O2 Delivery O2 Flow Rate FiO2 12/26/22 11:00 104 19 148/99 (115) 97 High Flow N/C 6.00 12/26/22 10:00 89 25 134/86 (102) 97 High Flow N/C 6.00 12/26/22 09:00 113 23 141/94 (110) 97 High Flow N/C 6.00 12/26/22 08:59 36.3 12/26/22 08:08 93 High Flow N/C 6.00 12/26/22 08:00 92 NIV Bilevel 45 12/26/22 08:00 126 33 122/71 (88) 96 High Flow N/C 6.00 12/26/22 07:00 124 12/26/22 07:00 104 25 130/84 (99) 96 High Flow N/C 6.00 12/26/22 06:15 138/92 (98) 12/26/22 06:00 112 17 148/61 (99) 92 High Flow N/C 6.00 12/26/22 05:45 113 24 134/108 (116) 93 NIV Bilevel 12/26/22 05:30 137 19 130/103 (109) 99 NIV Bilevel 12/26/22 05:15 124 21 119/90 (97) 100 NIV Bilevel 12/26/22 05:00 144 23 137/95 (106) 100 NIV Bilevel 12/26/22 04:45 118/77 (83) 12/26/22 04:30 124/76 (84) NIV Bilevel 45.00 12/26/22 04:15 36.0 135/98 (110) NIV Bilevel 45.00 12/26/22 04:00 136/84 (100) NIV Bilevel 45.00 12/26/22 03:59 92 NIV Bilevel 45 12/26/22 03:45 111 22 135/91 (106) 97 NIV Bilevel 45.00 12/26/22 03:30 122 23 142/84 (94) 97 NIV Bilevel 45.00 12/26/22 03:15 113 26 129/86 (100) 94 NIV Bilevel 45.00 12/26/22 03:00 120 25 135/88 (106) 96 12/26/22 02:45 133/83 (97) NIV Bilevel 45.00 12/26/22 02:30 102 26 134/89 (112) 96 NIV Bilevel 45.00 12/26/22 02:27 96 25 98 45.00 12/26/22 02:15 100 21 137/86 (110) 98 NIV Bilevel 45.00 12/26/22 02:00 103 24 134/77 (96) 98 NIV Bilevel 45.00 12/26/22 01:45 134/91 (100) NIV Bilevel 45.00 12/26/22 01:30 109 24 138/81 (105) 97 NIV Bilevel 45.00 12/26/22 01:15 135/76 (97) NIV Bilevel 45.00 12/26/22 01:00 141 12/26/22 01:00 125 29 126/76 (90) 97 NIV Bilevel 45.00 12/26/22 00:45 142 25 154/109 (117) 98 NIV Bilevel 45.00 12/26/22 00:30 122 27 159/79 (99) 97 NIV Bilevel 45.00 12/26/22 00:15 124 25 140/72 (85) 97 NIV Bilevel 45.00 12/26/22 00:02 128 152/74 12/26/22 00:00 36.2 152/74 (87) 12/25/22 23:59 92 NIV Bilevel 45 12/25/22 23:45 141 26 146/71 (94) 96 NIV Bilevel 45.00 12/25/22 23:30 134 25 126/101 (114) 97 NIV Bilevel 45.00 12/25/22 23:15 144 25 129/83 (90) 98 NIV Bilevel 45.00 12/25/22 23:03 120 31 150/91 (108) 91 NIV Bilevel 45.00 12/25/22 23:00 135 26 95 NIV Bilevel 45.00 12/25/22 22:45 121 21 135/90 (102) 97 NIV Bilevel 45.00 12/25/22 22:30 113 23 118/81 (101) 98 NIV Bilevel 45.00 12/25/22 22:15 134 24 115/73 (82) 97 NIV Bilevel 45.00 12/25/22 22:00 118 23 121/69 (83) 97 NIV Bilevel 45.00 12/25/22 21:45 124 24 122/64 (81) 97 NIV Bilevel 45.00 12/25/22 21:30 129/67 (100) NIV Bilevel 45.00 12/25/22 21:27 126 26 92 45.00 12/25/22 21:15 126 24 131/82 (93) 97 NIV Bilevel 45.00 12/25/22 21:00 137 24 136/81 (101) 93 NIV Bilevel 45.00 12/25/22 20:45 146 26 146/124 (132) 90 High Flow N/C 6.00 12/25/22 20:30 147 23 134/94 (106) 94 High Flow N/C 6.00 12/25/22 20:15 156 27 140/92 (110) 95 High Flow N/C 6.00 12/25/22 20:10 91 High Flow N/C 6.00 12/25/22 20:00 36.4 131 28 150/97 (112) 93 High Flow N/C 6.00 12/25/22 19:45 128 29 140/78 (99) 91 High Flow N/C 6.00 12/25/22 19:30 124 22 137/85 (111) 91 High Flow N/C 6.00 12/25/22 19:15 117 20 129/79 (94) 92 High Flow N/C 6.00 12/25/22 19:00 126 12/25/22 19:00 118 19 126/104 (106) 91 High Flow N/C 6.00 12/25/22 18:29 High Flow N/C 6.00 12/25/22 18:00 115 27 139/101 (111) 92 High Flow N/C 4.00 12/25/22 17:00 116 17 140/80 (112) 92 High Flow N/C 4.00 12/25/22 16:02 104 142/72 12/25/22 16:00 107 23 142/72 (95) 91 High Flow N/C 4.00 12/25/22 16:00 92 High Flow N/C 4.00 12/25/22 15:00 96 23 136/78 (108) 94 High Flow N/C 6.00 12/25/22 14:36 95 High Flow N/C 6.00 12/25/22 14:00 101 22 140/88 (107) 94 High Flow N/C 6.00 12/25/22 13:56 High Flow N/C 6.00 12/25/22 13:00 101 24 137/72 (91) 94 NIV Bilevel 45.00 12/25/22 12:31 119 12/25/22 12:00 115 18 147/89 (96) 90 NIV Bilevel 45.00 12/25/22 12:00 95 High Flow N/C 8.00 I & O 12/26/22 07:00 Intake Total 2075 ml Output Total 2210 ml Balance -135 ml Capillary Refill : Less Than 3 Seconds General Appearance: Chronically ill, Mild Distress HEENT: PERRL/EOMI Respiratory: Chest Non Tender, No Accessory Muscle Use, No Respiratory Distress, Decreased Breath Sounds (left base); No Respiratory Distress (requiring 40% ); Wheezing (inspiratory Left upper lobe) Cardiovascular: No Edema (no pitting edema b/l), Irregularly Irregular, Tachycardia Peripheral Pulses: 2+ Dorsalis Pedis (R), 2+ Left Dors-Pedis (L), 2+ Radial Pulses (R), 2+ Radial Pulses (L) Gastrointestinal: distended, tenderness (incision is c/d/i ) Extremity: Normal Capillary Refill, No Pedal Edema Neurologic/Psychiatric: Alert, Oriented x3 Skin: Normal Color, Warm/Dry Results Lab Laboratory Tests 12/25/22 18:36: Glucometer 99 12/26/22 01:31: White Blood Count 11.8H, Red Blood Count 4.29L, Hemoglobin 14.8, Hematocrit 43, Mean Corpuscular Volume 100H, Mean Corpuscular Hemoglobin 35H, Mean Corpuscular Hemoglobin Concent 35, Red Cell Distribution Width 14.2, Platelet Count 182, Mean Platelet Volume 10.4, Immature Granulocyte % (Auto) 1, Neutrophils (%) (Auto) 86H, Lymphocytes (%) (Auto) 6L, Monocytes (%) (Auto) 8, Eosinophils (%) (Auto) 0, Basophils (%) (Auto) 0, Neutrophils # (Auto) 10.1H, Lymphocytes # (Auto) 0.7L, Monocytes # (Auto) 0.9, Eosinophils # (Auto) 0.0, Basophils # (Auto) 0.0, Immature Granulocyte # (Auto) 0.1, Neutrophils % (Manual) 87, Lymphocytes % (Manual) 10, Monocytes % (Manual) 3, Blood Morphology Comment NORMAL, Sodium Level 137, Potassium Level 3.2L, Chloride Level 96L, Carbon Dioxide Level 27, Anion Gap 14, Blood Urea Nitrogen 12, Creatinine 0.86, Estimat Glomerular Filtration Rate 95, BUN/Creatinine Ratio 14, Glucose Level 127H, Calcium Level 9.2, Magnesium Level 1.8 Microbiology 12/22/22 MRSA Screen - Final, Complete MRSA not isolated Assessment/Plan Assessment/Plan Assessment/Plan Abdominal Distention S/P ex lap with partial gastrectomy -for perforation at previous PEG tube site FPC anticoagulation/antiplatelet Pneumonia vs Atelectasis in left lung base - CT confirmed Chronic EtOH use Sips of clears, IV Fluids, Pain medication as needed CIWA Hold Anticoagulation/antiplatelet -because of recent surgery Encourage ambulation (work with PT and nurse stated she would get him up to walk) and Incentive spirometry use I reviewed the CT myself and he still appeared to have a lot of free air yesterday and a lot of air in the intestine. I suspect he has some ileus and will improve once bowel function returns. I told him to take it easy on the liquids and that moving around will help him to pass some gas and hopefully have a BM. KANNAN FREY DO Dec 26, 2022 11:53
[2022-12-26] MEDS ORDERED: FUROSEMIDE INJECTION 40 MG/4 ML VIAL IVP ONE (12:00)
[2022-12-26] MEDS ORDERED: DIGOXIN INJECTION 0.25 MG/ML 2 ML AMPULE IV ONE (12:00)
--- NOTE | 2022-12-26 12:28 | Cardiology Progress Note ---
Cardiology SOAP Progress Note Subjective: No cardiac complaints. Objective: I&O/Vital Signs 12/26/22 12/26/22 12/26/22 12/26/22 02:15 02:27 02:30 02:45 Pulse 100 96 102 Resp B/P (MAP) 137/86 (110) 134/89 (112) 133/83 (97) Pulse Ox 98 98 96 O2 Delivery NIV Bilevel NIV Bilevel NIV Bilevel O2 Flow Rate 45.00 45.00 45.00 45.00 12/26/22 12/26/22 12/26/22 12/26/22 03:00 03:15 03:30 03:45 Pulse 120 113 122 111 Resp B/P (MAP) 135/88 (106) 129/86 (100) 142/84 (94) 135/91 (106) Pulse Ox 96 94 97 97 O2 Delivery NIV Bilevel NIV Bilevel NIV Bilevel O2 Flow Rate 45.00 45.00 45.00 12/26/22 12/26/22 12/26/22 12/26/22 03:59 04:00 04:15 04:30 Temp 36.0 B/P (MAP) 136/84 (100) 135/98 (110) 124/76 (84) Pulse Ox 92 O2 Delivery NIV Bilevel NIV Bilevel NIV Bilevel NIV Bilevel O2 Flow Rate 45.00 45.00 45.00 FiO2 45 12/26/22 12/26/22 12/26/22 12/26/22 04:45 05:00 05:15 05:30 Pulse 144 124 137 Resp 19 B/P (MAP) 118/77 (83) 137/95 (106) 119/90 (97) 130/103 (109) Pulse Ox 100 100 99 O2 Delivery NIV Bilevel NIV Bilevel NIV Bilevel 12/26/22 12/26/22 12/26/22 12/26/22 05:45 06:00 06:15 07:00 Pulse 113 112 104 Resp 25 B/P (MAP) 134/108 (116) 148/61 (99) 138/92 (98) 130/84 (99) Pulse Ox 93 92 96 O2 Delivery NIV Bilevel High Flow N/C High Flow N/C O2 Flow Rate 6.00 6.00 12/26/22 12/26/22 12/26/2212/26/23 07:00 08:00 08:00 08:08 Pulse 124 126 Resp 33 B/P (MAP) 122/71 (88) Pulse Ox 96 92 93 O2 Delivery High Flow N/C NIV Bilevel High Flow N/C O2 Flow Rate 6.00 6.00 FiO2 45 12/26/22 12/26/22 12/26/22 12/26/22 08:59 09:00 10:00 11:00 Temp 36.3 Pulse 113 89 104 Resp 23 25 19 B/P (MAP) 141/94 (110) 134/86 (102) 148/99 (115) Pulse Ox 97 97 97 O2 Delivery High Flow N/C High Flow N/C High Flow N/C O2 Flow Rate 6.00 6.00 6.00 12/26/22 12/26/22 12/26/22 12:00 13:00 13:57 Pulse 96 149 149 Resp 25 B/P (MAP) 140/92 (108) 140/92 Pulse Ox 97 O2 Delivery High Flow N/C O2 Flow Rate 6.00 12/26/22 00:00 Intake Total 1425 ml Output Total 1890 ml Balance -465 ml Weight (Pounds): 154 Weight (Ounces): 2.0 Weight (Calculated Kilograms): 69.325981 Constitutional: AAO x 3 Respiratory: lungs clear to auscultation Cardiovascular: irregularly irregular, tachycardia Gastrointestional: tenderness Extremities: No pedal edema Neurologic/Psychiatric: no motor/sensory deficits, alert, normal mood/affect, oriented x 3 Results/Procedures: Labs Laboratory Tests 12/25/22 18:36: Glucometer 99 12/26/22 01:31: White Blood Count 11.8H, Red Blood Count 4.29L, Hemoglobin 14.8, Hematocrit 43, Mean Corpuscular Volume 100H, Mean Corpuscular Hemoglobin 35H, Mean Corpuscular Hemoglobin Concent 35, Red Cell Distribution Width 14.2, Platelet Count 182, Mean Platelet Volume 10.4, Immature Granulocyte % (Auto) 1, Neutrophils (%) (Auto) 86H, Lymphocytes (%) (Auto) 6L, Monocytes (%) (Auto) 8, Eosinophils (%) ( Auto) 0, Basophils (%) (Auto) 0, Neutrophils # (Auto) 10.1H, Lymphocytes # (Auto) 0.7L, Monocytes # (Auto) 0.9, Eosinophils # (Auto) 0.0, Basophils # (Auto) 0.0, Immature Granulocyte # (Auto) 0.1, Neutrophils % (Manual) 87, Lymphocytes % (Manual) 10, Monocytes % (Manual) 3, Blood Morphology Comment NORMAL, Sodium Level 137, Potassium Level 3.2L, Chloride Level 96L, Carbon Dioxide Level 27, Anion Gap 14, Blood Urea Nitrogen 12, Creatinine 0.86, Estimat Glomerular Filtration Rate 95, BUN/Creatinine Ratio 14, Glucose Level 127H, Delta cium Level 9.2, Magnesium Level 1.8 Microbiology 12/22/22 MRSA Screen - Final, Complete MRSA not isolated A/P: Assessment/Dx: Acute abdomen Acute respiratory failure Coronary artery disease Permanent atrial fibrillation Plan: Status post acute abdomen, gastric perforation, status post exploratory laparotomy done on December 21, 2022 Patient extubated, NG tube in place. Acute respiratory failure, ventilator dependent History of COPD with recurrent respiratory failure. Had multiple hospitalization in February and July 2022 Managed by primary care team permanent atrial fibrillation, borderline tachycardic, maintained on Cardizem drip Maintained on Cardizem History of ablation in April [address] Godfrey, had multiple cardiac arrest and complex hospitalization in October 2017 Continue to titrate Cardizem drip. add digoxin 0.5mg daily. metoprolol iv bolus PRN. Discussed with Dr Villatoro Coronary artery disease, history of stenting using 3.020 mm Promus stent to the right coronary artery done in March 2012. Stress test done on November 01, 2019 showing Baseline atrial fibrillation, decreased uptake involving the mid to apical inferior wall with no reversibility, ejection fraction 40 percent probably due to tachycardia. Patient had been having more chest pain recently, was scheduled for [facility] on December 23, 2022 as outpatient. Will postpone at this time. Repeat troponin x2, 3 hours apart. COPD, using oxygen at night, had a complex hospitalization with Legionella pneumonia and CMV, respiratory failure, multiple cardiac arrest in October 2017. loculated pneumonia underwent right lung decortication on January 28 18 resulted in hydropneumothorax and marked emphysema and had prolonged chest tube placement. History of congestive heart failure, chronic left ventricular systolic dysfunction. 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 Abdominal aortic aneurysm, had a stent placed by Dr. Hogue done in June 2021. Hypertension, continue to monitor. Hyperlipidemia, continue to monitor lipids Niraj, Winston MOODY MD Dec 26, 2022 12:27
[2022-12-26] MEDS ORDERED: LORazepam 1 MG TABLET PO PRN (12:30)
[2022-12-26] MEDS ORDERED: D5 1/2 NS 1,000 ML IV 1,000 ML IV PRN (12:30)
[2022-12-26] MEDS ORDERED: ONDANSETRON 4 MG ORAL DISSOLVE TABLET SL PRN (12:30)
[2022-12-26] MEDS ORDERED: ANTACID SUSPENSION 30 ML UDC PO PRN (12:30)
[2022-12-26] MEDS ORDERED: SENNA W/DOCUSATE TABLET PO PRN (12:30)
[2022-12-26] MEDS ORDERED: 1/2 NS IV SOLUTION 1000 ML 1,000 ML IV PRN (12:30)
--- NOTE | 2022-12-26 12:30 | Progress Note - Hospitalist ---
LEONIE DAVIS 12/26/22 1230: Subjective HPI/CC On Admission Date Seen by Provider: Dec 26, 2022 Time Seen by Provider: 12:23 Subjective/Events-last exam Pt states that he is tired today. Reports that he has been able to pass some gas but is still having some bloating. Denies any bowel movement but feels he will have one soon. He reports abd pain around his incision site. Reports that he has been using Bipap only at night and is on O2 during the day. Objective Exam Vital Signs Vital Signs Date Time Temp Pulse Resp B/P (MAP) Pulse Ox O2 Delivery O2 Flow Rate FiO2 12/26/22 12:00 96 25 140/92 (108) 97 High Flow N/C 6.00 12/26/22 08:59 36.3 12/26/22 08:00 45 Capillary Refill : Less Than 3 Seconds General Appearance: No Apparent Distress, Chronically ill HEENT: PERRL/EOMI, Pharynx Normal Neck: Normal Inspection, Non Tender Respiratory: Chest Non Tender, No Accessory Muscle Use, No Respiratory Distress, Crackles, Wheezing Cardiovascular: Normal Peripheral Pulses, Tachycardia Gastrointestinal: Distended; No Guarding; Tenderness (surgical site tenderness ) Extremity: Normal Inspection, Non Tender, No Calf Tenderness Neurologic/Psychiatric: Alert, Oriented x3, No Motor/Sensory Deficits, Normal Mood/Affect Skin: Normal Color, Warm/Dry Results/Procedures Lab Laboratory Tests 12/26/22 01:31 Patient resulted labs reviewed. Assessment/Plan Assessment and Plan Assess & Plan/Chief Complaint Chronic resp failure - On 6 lpm supplemental oxygen (on 4 lpm at baseline). - Add Lasix 40 mg IV - Continue dueonab - Continue Zosyn 4.5 gm IV q8hrs Gastric perforation s/p partial gastrectomy on 12/21 - Followed by surgery - Continue enoxaparin 40 mg/d IV for DVT prophyalxis Atrial fibrillation - Continue diltiazem drip - Continue metoprolol 5 mg q 4hrs prn - Add digoxin 0.5 mg IV - Followed by cardiology CHF - Followed by cardiology - Add Lasix 40 mg IV Alcoholism - [facility] protocol - Continue lorezepam 1-4 mg PRN KAI VILLATORO MD 12/26/22 1313: Assessment/Plan Assessment and Plan Assess & Plan/Chief Complaint Patient reports passing some flatus and also vomiting and feeling a little bit better since both of those 6 happened. He also reports that he feels like he will have to have a bowel movement today. Is quite bloated. He is still on 6 L of oxygen so we will repeat Lasix dose. He reported to the nurse after I left the room that he was hearing music that was not playing so we will place CIWA protocol given history of alcohol abuse. He has also been quite tachycardic as well and cardiology was rounding when I was in the room and they recommended 0.5 mg digoxin due to uncontrolled heart rate. Remains on Cardizem drip as well. Maintain in the ICU. Supervisory-Addendum Brief Verification & Attestation Participated in pt care: history, MDM, physical Personally performed: exam, history, MDM, supervision of care Care discussed with: Medical Student Procedures: n/a Results interpretation: Verified all documentation Verification and Attestation of Medical Student E/M Service A medical student performed and documented this service in my presence. I reviewed and verified all information documented by the medical student and made modifications to such information, when appropriate. I personally performed the physical exam and medical decision making. Kai Villatoro, Dec 26, 2022,13:12 LEONIE DAVIS Dec 26, 2022 12:30 KAI VILLATORO MD Dec 26, 2022 13:13
[2022-12-26] MEDS: ENOXAPARIN 40 MG/0.4 ML SYRINGE SC SCH (12:38)
[2022-12-26] MEDS: LACTATED RINGERS 1,000 ML 1,000 ML IV SCH ×3 (12:43→20:55)
[2022-12-26] MEDS ORDERED: DexMEDEtomidine 1,000mcg/250ml 250 ML IV ONE (13:49)
[2022-12-26] MEDS ORDERED: DexMEDEtomidine 1,000mcg/250ml 250 ML IV SCH ×2 (14:00)
[2022-12-26 15:03] LABS: ABG BASE EXCESS 10.1 MMOL/L (-2.5-2.5); ABG OXYGEN SATURATION 77 % (94-100); ABG PCO2 70 MMHG (35-45); ABG PH 7.35 (7.37-7.43); ABG PO2 53 MMHG (79-93)
[2022-12-26 15:06] LABS: ABG TCO2 40.7 MMOL/L (21.0-31.0); INSPIRED O2 45%; VENTILATOR YES
[2022-12-26] MEDS ORDERED: NOREPINEPHRINE 8 MG/250 ML 250 ML IV ONE (15:19)
--- NOTE | 2022-12-26 15:23 | Tele-ICU Progress Note ---
Progress Note called for hypoxemia while on BIPAP Aske dto have patient intubated. After intubation, patient arrested Focused Exam Height, Weight, BMI Height: 6'4.00" Weight: 154lbs. 2.0oz. 69.812587vh; 20.58 BMI Method:Stated VIGNESH TOTH MD Dec 26, 2022 15:23
[2022-12-26] MEDS ORDERED: NS IV 1000 ML 1,000 ML ONE (15:51)
[2022-12-26] MEDS ORDERED: SUCCINYLCHOLINE INJ 20 MG/1 ML 10 ML VIAL INJ ONE (16:06)
[2022-12-26] MEDS ORDERED: ETOMIDATE INJ SOLN 20 MG/10 ML VIAL IV ONE (16:06)
[2022-12-26] MEDS ORDERED: NOREPINEPHRINE INJECTION 16 MG in NS (IVPB) 250 ML 234 ML IV SCH (16:15)
--- NOTE | 2022-12-26 16:20 | Procedure/Intervention Note ---
Procedure Note Vital Signs Vital Signs Date Time Temp Pulse Resp B/P (MAP) Pulse Ox O2 Delivery O2 Flow Rate FiO2 12/26/22 17:30 151 12 160/100 (120) 100 Mechanical Ventilator 100.00 12/26/22 16:13 100 12/26/22 08:59 36.3 Procedure Note Indication for the procedure was declining oxygen saturations despite being on maximum bipap settings. Patient showing signs of respiratory distress and thus required intubation. The patient was preoxygenated with 100% oxygen by bipap. The patient was given the following IV medictions: etomindate, succinylcholine. The patient was orally endotracheally intubated under direct visulation with a 8.0 ETT. In line stabilization was performed during the procedure. There was good misting on the tube; breath sounds were ausculated equally bilaterally; noted color change with end tidal CO2 detector. Chest x-ray shows ETT in good position. The procedure was preformed by Dr. Bradshaw, observed by Dr. Gottlieb. I was personally present and agree with above note. Patient with respiratory failure and decreasing O2 saturations despite BiPAP at 100% with findings of A- fib with RVR. Intubated under emergent conditions with 20 mg of etomidate and 100 mg of succinylcholine for RSI. Tube placed via glide scope under direct visualization x1 attempt with no complications. Postintubation chest x-ray shows tube in good position. Patient placed on vent after with marked improvement in O2 saturations. RUDDY GOTTLIEB MD, RESIDENT Dec 26, 2022 16:20 NANCY BRADSHAW MD Dec 26, 2022 18:20
--- NOTE | 2022-12-26 16:22 | Procedure/Intervention Note ---
Procedure Note Vital Signs Vital Signs Date Time Temp Pulse Resp B/P (MAP) Pulse Ox O2 Delivery O2 Flow Rate FiO2 12/26/22 17:30 151 12 160/100 (120) 100 Mechanical Ventilator 100.00 12/26/22 16:13 100 12/26/22 08:59 36.3 Procedure Note Central line was placed due to rapid blood pressure decline and decline in respiratory status under an emergent situation. Maximal sterile barrier technique was used including cap, gown, sterile gloves, large sheet, handwashing, and chlorexidine prep. The area anesthetized with 1% lidocaine. The right subclavian vein was punctured with a 19 gauge finder needle, then a wire introducer was placed. Incision was made at the end of the needle and then dilator was introduced over the wire. Dilater was then withdrawn and triple lumen catheter was threaded over the wire until 18cm. Each lumen was flushed with saline. Lumen was then sutured into place with 2 sutures. Sterile dressing was placed on top. No complications. Blood return low pressure, dark blood. Patient tolerated procedure well. CXR results: good line placement, no pneumothorax. As interpreted by myself. Radiologist interpretation prending. The procedure was performed by Dr. Gottlieb with Dr. Oliva at bedside. I was personally present throughout entire procedure and agree with above. Post insertion chest x-ray reviewed and shows line in good position without pneumothorax. RUDDY GOTTLIEB MD, RESIDENT Dec 26, 2022 16:22 NANCY OLIVA MD Dec 26, 2022 18:22
--- NOTE | 2022-12-26 16:22 | Progress Note-Post Operative ---
Post-Operative Progess Note Surgeon (s)/Maintenance Shop Clerk (s) Surgeon BRYON KHALIL DO Maintenance Shop Clerk: NA Pre-Operative Diagnosis respiratory failure Post-Operative Diagnosis same Procedure & Operative Findings Date of Procedure 12/26/22 Procedure Performed/Findings U/s guided left radial arterial line. Left wrist prepped in sterile fashion u/s used to find left radial artery. Needle and catheter advanced and arterial flash of blood. Wire inserted and catheter advanced over wire. Secured to tubing and sterile bandage applied. Anesthesia Type none Estimated Blood Loss Estimated blood loss (mL): scant Specimens/Packing Specimens Removed BRYON Moura DO Dec 26, 2022 16:22
--- NOTE | 2022-12-26 16:29 | Diagnostic Imaging Report ---
INDICATION: Dyspnea, follow-up intubation. COMPARISON: 12/25/2022. DISCUSSION: Single portable supine view of the chest was obtained. New endotracheal tube with tip in good position within the mid trachea. Enteric tube is stable. Defibrillator patches are now present. Stable heart size. Infiltrate again noted within the left lung base. New right IJ central line with tip in the SVC. No pneumothorax. No osseous abnormality. IMPRESSION: 1. Support lines and catheter as described. No pneumothorax. 2. Persistent consolidation within the left lung base. Dictated by: Dictated on workstation # [id number]
[2022-12-26] MEDS ORDERED: HOLD METFORMIN - RECEIVED CONTRAST 20 ML VIAL IV SCH (16:30)
[2022-12-26] MEDS ORDERED: NS 100 ML (IVPB) BAG IV ONE (16:30)
[2022-12-26] MEDS ORDERED: IOHEXOL 350 MG/ML 100 ML (OMNIPAQUE 350) VIAL IV ONE (16:30)
[2022-12-26] MEDS: fentaNYL DRIP PRE-MIX 250 ML IV SCH (16:43)
--- NOTE | 2022-12-26 16:43 | Progress Note ---
RUDDY COPE MD, RESIDENT 12/26/22 1643: Progress Note Assessment/Plan Date Seen by Provider: Dec 26, 2022 Time Seen by Provider: 15:30 Events since last exam Was informed by nurse around 2:40 PM that patient may need intubated as he was on exiting the BiPAP and was unable to get saturations over 85% on 100% FiO2. I presented to bedside with Dr. Oliva already at bedside noting that patient was showing signs of respiratory distress with using abdominal and neck muscles for breathing despite being on BiPAP. Saturations were noted to be in the low 70s. Dr. Oliva was getting ready to intubate patient due to this decline. Intubation procedure note is present in the chart. Intubation went successfully. However after intubation, patient was noted to have soft blood pressures measuring 40/50. We attempted to palpate a pulse but a pulse was not palpable and thus chest compressions were started and a rapid response was called. 1 mg of epinephrine was given and patient's Cardizem drip was decreased and attempted to assist with pulse palpation. A couple rounds of chest compressions were done. AED pads were applied. During application, we tempted to palpate peripheral femoral pulses. Femoral pulses were palpable by both Dr. Oliva and I and thus we stopped the code. At this time we placed a central line for access as patient was noted to require some sedation and Levophed for blood pressure support. At this time, Dr. Villatoro and Dr. Davis were present who assisted with informing family and evaluating the situation to see if any fur ther medications were required. Dr. Davis also placed an art line during this time. Pressure improved to 130s systolic and lines appear to be functioning properly. We will continue to monitor. Assessment/Plan We will be ordering CT head without contrast and then CT chest/abdomen/pelvis to evaluate patient further. Plan to continue sedation due to intubation needs. Continue Levophed for blood pressure support. Vitals Last set of Vitals Signs Vital Signs Date Time Temp Pulse Resp B/P (MAP) Pulse Ox O2 Delivery O2 Flow Rate FiO2 12/26/22 16:15 147 24 123/78 (93) 100 Mechanical Ventilator 100.00 12/26/22 16:13 100 12/26/22 08:59 36.3 I&O I&O Intake and Output 12/26/22 00:00 Intake Total 1550 ml Output Total 2590 ml Balance -1040 ml Intake Oral 200 ml IV Total 1350 ml Output Urine Total 1765 ml Gastric Drainage Total 825 ml Labs Laboratory Tests 12/25/22 18:36: Glucometer 99 12/26/22 01:31: White Blood Count 11.8H, Red Blood Count 4.29L, Hemoglobin 14.8, Hematocrit 43, Mean Corpuscular Volume 100H, Mean Corpuscular Hemoglobin 35H, Mean Corpuscular Hemoglobin Concent 35, Red Cell Distribution Width 14.2, Platelet Count 182, Mean Platelet Volume 10.4, Immature Granulocyte % (Auto) 1, Neutrophils (%) (Auto) 86H, Lymphocytes (%) (Auto) 6L, Monocytes (%) (Auto) 8, Eosinophils (%) (Auto) 0, Basophils (%) (Auto) 0, Neutrophils # (Auto) 10.1H, Lymphocytes # (Auto) 0.7L, Monocytes # (Auto) 0.9, Eosinophils # (Auto) 0.0, Basophils # (Auto) 0.0, Immature Granulocyte # (Auto) 0.1, Neutrophils % (Manual) 87, Lymphocytes % (Manual) 10, Monocytes % (Manual) 3, Blood Morphology Comment NORMAL, Sodium Level 137, Potassium Level 3.2L, Chloride Level 96L, Carbon Dioxide Level 27, Anion Gap 14, Blood Urea Nitrogen 12, Creatinine 0.86, Estimat Glomerular Filtration Rate 95, BUN/Creatinine Ratio 14, Glucose Level 127H, Calcium Level 9.2, Magnesium Level 1.8, Troponin I < 0.028 12/26/22 14:10: Troponin I < 0.028 12/26/22 14:55: Arterial Blood pH 7.35L, Arterial Blood Partial Pressure CO2 70H, Arterial Blood Partial Pressure O2 53L, Arterial Blood HCO3 39H, Arterial Blood Total CO2 40.7*H, Arterial Blood Oxygen Saturation 77L, Arterial Blood Base Excess 10.1H, Blood Gas Ventilator Setting YES, Blood Gas Inspired Oxygen 45% 12/26/22 16:00: Troponin I < 0.028 [facility] 12/22/22 MRSA Screen - Final, Complete MRSA not isolated Focused Exam Respiratory: Accessory Muscle Use, Respiratory Distress, Rhonci Cardiovascular: No Edema, No Murmur Skin: cool, mottled STOCKBRIDGENANCY VICKERS MD 12/26/22 1827: Progress Note Assessment/Plan Events since last exam I was personally present, directed plan of care and agree with the above. I was called emergently to patient bedside due to respiratory failure needing intubation. After intubation, patient blood pressure declined and code initiated. Epinephrine 1 mg IV given and CPR initiated. After 2 minutes of circulating with high-quality CPR, return of circulation noted. Patient was initiated on norepinephrine to keep blood pressure greater than 90 systolic pe nding placement of central line. Intubation and central line completed. See separate procedure notes for details. RUDDY COPE MD, RESIDENT Dec 26, 2022 16:43 NANCY OLIVA MD Dec 26, 2022 18:27
--- NOTE | 2022-12-26 18:00 | Diagnostic Imaging Report ---
PROCEDURE: CT head without contrast. TECHNIQUE: Multiple contiguous axial images were obtained through the brain without the use of intravenous contrast. Auto Exposure Controls were utilized during the CT exam to meet ALARA standards for radiation dose reduction. INDICATION: Altered mental status, rapid respiratory decline. COMPARISON: 12/07/2020. FINDINGS: Ventricles and cortical sulci are mildly prominent, likely from generalized parenchymal volume loss. There is no midline shift or mass effect. No acute intracranial hemorrhage is seen. There is no CT evidence of acute territorial ischemia. The calvarium appears intact. There is a small fluid level in the left maxillary sinus. There is deformity of the nasal bones from remote injury. There is chronic fluid in the right mastoid air cells. IMPRESSION: 1. No acute intracranial hemorrhage or CT evidence of acute territorial ischemia. 2. Left maxillary sinusitis. Chronic fluid in the right mastoid air cells. Dictated by: Dictated on workstation # [id number]
--- NOTE | 2022-12-26 18:10 | Diagnostic Imaging Report ---
PROCEDURE: CT chest, abdomen, and pelvis with contrast. TECHNIQUE: Multiple contiguous axial images were obtained through the chest, abdomen, and pelvis after the administration of intravenous contrast. Auto Exposure Controls were utilized during the CT exam to meet ALARA standards for radiation dose reduction. INDICATION: Altered mental status, rapid respiratory decline, postcode. COMPARISON: 12/25/2022, 07/21/2018. FINDINGS: CT CHEST: The heart is mildly large. There is no pericardial effusion. An endotracheal tube is in the trachea and above the saleem. An enteric tube terminates at the distal esophagus. The aorta has atherosclerosis. No lymphadenopathy is seen. There are small bilateral pleural effusions, left greater than right. There are patchy airspace opacities in the lungs with severe emphysematous and bullous disease. Bone density appears diffusely low. There is mild deformity of the sternum, from age indeterminate fracture. There are fractures of the left 2nd through 5th ribs. CT ABDOMEN AND PELVIS: The liver demonstrates no focal lesion. The spleen appears normal. The pancreas is normal. The adrenal glands appear normal. The kidneys demonstrate a heterogeneous enhancement. No focal lesion is seen and there is no hydronephrosis. There is marked distention of the stomach with distended loops of small bowel. There are nondistended loops of small bowel distally. Transition point is suspected to be in the midabdomen. There is an abdominal aortic aneurysm status post stent placement. The aneurysm measures 6.3 x 6.1 cm in size, appears similar to the prior exam. No endoleak is seen on this non-angiographic exam. No lymphadenopathy is seen. There is a small amount of free fluid in the pelvis. There is a Meier catheter with air in the urinary bladder. There is marked atherosclerosis. There is diverticulosis of the colon without diverticulitis. There does appear to be complete occlusion at the left common femoral artery. There is a small amount of free air in the abdomen. There are degenerative changes in the spine. IMPRESSION: 1. Marked distention of the stomach and proximal small bowel, with decompressed bowel distally, concerning for high-grade small bowel obstruction. There is pneumoperitoneum concerning for perforation, similar to the prior exam. 2. The tip of the enteric tube is at the lower esophagus and 10 to 15 cm of advancement are recommended. 3. Severe emphysematous change and bullous disease in the lungs with patchy airspace opacity which may be due to pneumonia or edema. There are small bilateral pleural effusions. 4. Multiple right rib fractures. 5. Heterogeneous enhancement of the kidneys, may be due to suboptimal perfusion or less likely pyelonephritis, bilaterally. 6. Abdominal aortic aneurysm with stent in place. No definite endoleak is seen on this non-angiographic exam. 7. Marked atherosclerosis with occlusion of the left common femoral artery. The ordering provider was not in the hospital railway track [employer] operator system, and report was given to ICU nurse Oralia, at 5:48 PM on 12/26/2022. Dictated by: Dictated on workstation # [id number]
[2022-12-26] MEDS: NOREPINEPHRINE 8 MG/250 ML 250 ML IV SCH ×4 (18:32→23:22)
--- NOTE | 2022-12-26 20:27 | Tele-ICU Progress Note ---
Subjective Date Seen by a Provider: Dec 26, 2022 Time Seen by a Provider: 20:20 Subjective/Events-last exam called for HR 150, pt has chronic a fib with RVR. went to OR 12/21 with gastric perforation, had parital gastrectomy, extubated next day but had to be re- intubated on 12/26/ followed by CP arrest during intubation with ROSC, has Fx ribs, 5 min. Is now on IV Cardizem for rate control @ 15 mg/h, BP has been falling, first on IV levophed now BP has dropped into SBP 70's. on Vent, IV Propofol/Fentanyl, not agitated, This am stomach showed gastric distension with possible SBO. Hb has gone from 11 to 14. Has multiple medical problems, CAD, severe COPD with bullous disease, pulm htn with PSAP in 50's. EtOH abuse, Hx of pulmonary aspergillous 2019 On IV Zosyn I suspect is dry, also will add IV vasopressin for BP to keep SBP > 90 will call surgeon to talk about CT abd today which showed marked gastic distension and possible SBO Sepsis Event Evaluation Height, Weight, BMI Height: 6'4.00" Weight: 154lbs. 2.0oz. [id number]; 20.58 BMI Method:Stated Exam Exam Patient acknowledged, consented, and participated in this virtual visit which was conducted using real time audio/video Vital Signs Date Time Temp Pulse Resp B/P (MAP) Pulse Ox O2 Delivery O2 Flow Rate FiO2 12/26/22 19:50 133 120/93 (102) 12/26/22 19:50 133 24 120/93 (102) 97 Mechanical Ventilator 80.00 12/26/22 19:45 151 12/26/22 19:45 151 24 93 Mechanical Ventilator 80.00 12/26/22 19:40 138 32 130/90 (103) 97 Mechanical Ventilator 80.00 12/26/22 19:40 138 130/90 (103) 12/26/22 19:30 152 25 125/89 (103) 98 Mechanical Ventilator 80.00 12/26/22 19:30 152 125/89 (103) 12/26/22 19:20 152 27 117/97 (102) 98 Mechanical Ventilator 80.00 12/26/22 19:20 152 117/97 (102) 12/26/22 19:15 140 12/26/22 19:15 140 27 100 Mechanical Ventilator 80.00 12/26/22 19:10 154 120/79 (83) 12/26/22 19:10 154 23 120/79 (83) 100 Mechanical Ventilator 80.00 12/26/22 19:00 141 26 116/96 (101) 99 Mechanical Ventilator 80.00 12/26/22 19:00 141 116/96 (101) 12/26/22 18:57 144 114/77 12/26/22 18:56 149 111/73 12/26/22 18:50 152 25 104/89 (93) 88 12/26/22 18:45 144 26 95 12/26/22 18:32 151 129/77 12/26/22 18:25 151 18 95 80 12/26/22 18:00 152 18 135/96 (109) 97 Mechanical Ventilator 100.00 12/26/22 17:30 151 12 160/100 (120) 100 Mechanical Ventilator 100.00 12/26/22 17:15 81/51 (61) 12/26/22 16:43 90 12/26/22 16:15 147 24 123/78 (93) 100 Mechanical Ventilator 100.00 12/26/22 16:13 140 18 100 100 12/26/22 16:00 Mechanical Ventilator 16.00 80 12/26/22 16:00 92 NIV Bilevel 45 12/26/22 16:00 142 27 106/85 (92) 100 Mechanical Ventilator 100.00 12/26/22 15:24 119 43/23 12/26/22 15:00 79 26 85/67 (73) 69 NIV Bilevel 100.00 12/26/22 14:30 26 85 NIV Bilevel 100.00 12/26/22 14:00 128 34 138/67 (90) 88 High Flow N/C 8.00 12/26/22 13:57 149 140/92 12/26/22 13:00 101 26 139/94 (109) 92 High Flow N/C 8.00 12/26/22 13:00 149 12/26/22 12:00 92 NIV Bilevel 45 12/26/22 12:00 96 25 140/92 (108) 97 High Flow N/C 6.00 12/26/22 11:00 104 19 148/99 (115) 97 High Flow N/C 6.00 12/26/22 10:00 89 25 134/86 (102) 97 High Flow N/C 6.00 12/26/22 09:00 113 23 141/94 (110) 97 High Flow N/C 6.00 12/26/22 08:59 36.3 12/26/22 08:08 93 High Flow N/C 6.00 12/26/22 08:00 92 NIV Bilevel 45 12/26/22 08:00 126 33 122/71 (88) 96 High Flow N/C 6.00 12/26/22 07:00 124 12/26/22 07:00 104 25 130/84 (99) 96 High Flow N/C 6.00 12/26/22 06:15 138/92 (98) 12/26/22 06:00 112 17 148/61 (99) 92 High Flow N/C 6.00 12/26/22 05:45 113 24 134/108 (116) 93 NIV Bilevel 12/26/22 05:30 137 19 130/103 (109) 99 NIV Bilevel 12/26/22 05:15 124 21 119/90 (97) 100 NIV Bilevel 12/26/22 05:00 144 23 137/95 (106) 100 NIV Bilevel 12/26/22 04:45 118/77 (83) 12/26/22 04:30 124/76 (84) NIV Bilevel 45.00 12/26/22 04:15 36.0 135/98 (110) NIV Bilevel 45.00 12/26/22 04:00 136/84 (100) NIV Bilevel 45.00 12/26/22 03:59 92 NIV Bilevel 45 12/26/22 03:45 111 22 135/91 (106) 97 NIV Bilevel 45.00 12/26/22 03:30 122 23 142/84 (94) 97 NIV Bilevel 45.00 12/26/22 03:15 113 26 129/86 (100) 94 NIV Bilevel 45.00 12/26/22 03:00 120 25 135/88 (106) 96 12/26/22 02:45 133/83 (97) NIV Bilevel 45.00 12/26/22 02:30 102 26 134/89 (112) 96 NIV Bilevel 45.00 12/26/22 02:27 96 25 98 45.00 12/26/22 02:15 100 21 137/86 (110) 98 NIV Bilevel 45.00 12/26/22 02:00 103 24 134/77 (96) 98 NIV Bilevel 45.00 12/26/22 01:45 134/91 (100) NIV Bilevel 45.00 12/26/22 01:30 109 24 138/81 (105) 97 NIV Bilevel 45.00 12/26/22 01:15 135/76 (97) NIV Bilevel 45.00 12/26/22 01:00 141 12/26/22 01:00 125 29 126/76 (90) 97 NIV Bilevel 45.00 12/26/22 00:45 142 25 154/109 (117) 98 NIV Bilevel 45.00 12/26/22 00:30 122 27 159/79 (99) 97 NIV Bilevel 45.00 12/26/22 00:15 124 25 140/72 (85) 97 NIV Bilevel 45.00 12/26/22 00:02 128 152/74 12/26/22 00:00 36.2 152/74 (87) 12/25/22 23:59 92 NIV Bilevel 45 12/25/22 23:45 141 26 146/71 (94) 96 NIV Bilevel 45.00 12/25/22 23:30 134 25 126/101 (114) 97 NIV Bilevel 45.00 12/25/22 23:15 144 25 129/83 (90) 98 NIV Bilevel 45.00 12/25/22 23:03 120 31 150/91 (108) 91 NIV Bilevel 45.00 12/25/22 23:00 135 26 95 NIV Bilevel 45.00 12/25/22 22:45 121 21 135/90 (102) 97 NIV Bilevel 45.00 12/25/22 22:30 113 23 118/81 (101) 98 NIV Bilevel 45.00 12/25/22 22:15 134 24 115/73 (82) 97 NIV Bilevel 45.00 12/25/22 22:00 118 23 121/69 (83) 97 NIV Bilevel 45.00 12/25/22 21:45 124 24 122/64 (81) 97 NIV Bilevel 45.00 12/25/22 21:30 129/67 (100) NIV Bilevel 45.00 12/25/22 21:27 126 26 92 45.00 12/25/22 21:15 126 24 131/82 (93) 97 NIV Bilevel 45.00 12/25/22 21:00 137 24 136/81 (101) 93 NIV Bilevel 45.00 12/25/22 20:45 146 26 146/124 (132) 90 High Flow N/C 6.00 12/25/22 20:30 147 23 134/94 (106) 94 High Flow N/C 6.00 I & O 12/26/22 07:00 Intake Total 2075 ml Output Total 2210 ml Balance -135 ml Height & Weight Height: 6'4.00" Weight: 154lbs. 2.0oz. [id number]; 20.58 BMI Method:Stated General Appearance: No Apparent Distress, Chronically ill HEENT: PERRL/EOMI, Pharynx Normal Neck: Normal Inspection, Non Tender Respiratory: Accessory Muscle Use, Respiratory Distress, Rhonci Cardiovascular: No Edema, No Murmur Capillary Refill: Less Than 3 Seconds Peripheral Pulses: 2+ Dorsalis Pedis (R), 2+ Left Dors-Pedis (L), 2+ Radial Pulses (R), 2+ Radial Pulses (L) Gastrointestinal: distended, tenderness (incision is c/d/i ), other (according to RN, abd is a little less distended than yesterday) Extremity: Normal Inspection, Non Tender, No Calf Tenderness Neurologic/Psychiatric: Alert, Oriented x3, No Motor/Sensory Deficits, Normal Mood/Affect Skin: Normal Color, Warm/Dry Results Lab Laboratory Tests 12/25/22 04:48 12/26/22 01:31 Assessment/Plan Assessment/Plan Dropping BP, will need 2nd pressor-vasopressin. Will speak with Dr Davis about gastric and small bowel distension seen on CT abd will give LR bolus and repeat if needed Pt very ill Critical Care: Ventilator Management VIGNESH SPEAR MD Dec 26, 2022 20:27
[2022-12-26] MEDS ORDERED: VASOPRESSIN (PYXIS DRIP KIT) 20 UNIT/1 ML VIAL ONE (20:39)
[2022-12-26] MEDS ORDERED: NS (IVPB) 100 ML 100 ML ONE (20:40)
[2022-12-26] MEDS ORDERED: VASOPRESSIN INJECTION 20 UNIT in NS (IVPB) 100 ML 100 ML IV SCH (20:45)
[2022-12-26] MEDS: VASOPRESSIN (PYXIS DRIP KIT) 20 UNIT/1 ML VIAL IV SCH (20:49)
[2022-12-27] MEDS: PIPERACILLIN/Tazobactam 4.5 GM in NS (IVPB) 100 ML 100 ML IV SCH ×3 (01:52→18:06)
[2022-12-27 02:23] VITALS: BP 110/62
[2022-12-27] MEDS: NOREPINEPHRINE 8 MG/250 ML 250 ML IV SCH ×4 (02:42→20:03)
[2022-12-27] MEDS: LACTATED RINGERS 1,000 ML 1,000 ML IV SCH ×2 (03:14→17:12)
[2022-12-27] MEDS: dilTIAZem DRIP PRE-MIX 125 ML IV SCH (03:50)
[2022-12-27 04:09] LABS: HEMATOCRIT 37 % (40-54); HEMOGLOBIN 12.6 g/dL (13.3-17.7); MEAN CORPUSCULAR HEMOGLOBIN 35 pg (25-34); MEAN CORPUSCULAR HGB CONC 34 g/dL (32-36); MEAN CORPUSCULAR VOLUME 101 fL (80-99); MEAN PLATELET VOLUME 10.4 fL (9.0-12.2); PLATELET COUNT 194 10^3/uL (130-400); WHITE BLOOD COUNT 24.5 10^3/uL (4.3-11.0)
[2022-12-27 04:16] LABS: POTASSIUM 3.3 MMOL/L (3.6-5.0)
[2022-12-27 04:18] LABS: CALCIUM 8.2 MG/DL (8.5-10.1)
[2022-12-27 04:22] LABS: CREATININE SERUM 1.12 MG/DL (0.60-1.30)
[2022-12-27 04:24] LABS: MAGNESIUM 1.5 MG/DL (1.6-2.4)
[2022-12-27] MEDS: POTASSIUM CHLORIDE 20 MEQ TABLET PO SCH (04:40)
[2022-12-27] MEDS: POTASSIUM CL 10MEQ/50ML IVPB 50 ML IV SCH ×9 (04:40→10:25)
[2022-12-27] MEDS: MAGNESIUM 1 GM/100 ML IVPB 100 ML IV SCH ×5 (04:40→08:00)
[2022-12-27] MEDS ORDERED: MAGNESIUM 1 GM/100 ML IVPB 400 ML IV ONE (04:48)
[2022-12-27] MEDS ORDERED: POTASSIUM CL 10MEQ/50ML IVPB 400 ML IV ONE (04:48)
[2022-12-27] MEDS ORDERED: VASOPRESSIN (PYXIS DRIP KIT) 20 UNIT/1 ML VIAL ONE ×2 (06:23→17:57)
[2022-12-27] MEDS ORDERED: NS (IVPB) 100 ML 100 ML ONE ×2 (06:23→17:56)
[2022-12-27 07:00] VITALS: BP 110/58
[2022-12-27] MEDS: RT-Ipratropium/Albuterol NEB 3 ML VIAL INH PRN (07:00)
[2022-12-27] MEDS: VASOPRESSIN (PYXIS DRIP KIT) 20 UNIT/1 ML VIAL IV SCH (07:56)
[2022-12-27] MEDS ORDERED: EPINEPHrine 0.1 MG/ML 10 ML EMERGENCY SYR IJ ONE (08:21)
[2022-12-27] MEDS ORDERED: CATHETER FLUSH 10 ML SYR IVP ONE (08:21)
--- NOTE | 2022-12-27 10:22 | Tele-ICU Progress Note ---
Subjective Date Seen by a Provider: Dec 27, 2022 Time Seen by a Provider: 10:21 Subjective/Events-last exam (Tele-ICU Physician , Progress Note ) Service provided via interactive audio and video telecommunications E-CARE system to a patient admitted to ICU bed in [facility]. Patient is seen today due to persistent need of ICU care Available chart/ vitals / labs / Images reviewed Video assessment done using teleICU camera, rest of exam as per RN Discussed with RN Events overnight : Afebrile hemodynamically stable Respiratory - 50% I/O = pos Drips: LR 100 cardizem 5 Pressors- - on levo 0.04 and vaso 0.03 VENT SETTINGS and ABG reviewed NOT CANDIDATE for SBTreviewed possible contraindications including Cardiovascular Stability /Sedation Score / FI02/PEEP / ABG / CXR/ secretions Sedation, discussed with RN, RASS -2 on propofol 30 fentanyl 50 Hospital course: (12/21) 67yr old male admitted s/p Ex. Lap partial gastric resection(gastric perf). Intubated (12/22) Extubated. (12/26) pt hypoxic on bipap-Intubated, arrested after intubation w/ ROSC, CTH - WNL , CT abd- high-grade small bowel obstruction. 12/27- on levo 0.04 and vaso 0.03, Fio2 50 % , RASS -2 on propofol 30 fentanyl 50 , cardizem 5 A/P Acute resp failure , hypoxic ( extubated post op 12/22 --> re-intubated on 12/26 -AC 16 500 50% +5 - + secretions , on nebs - follow ABG Card arrest 12/25 with ROSC 5 min ( secondary to resp failure? ) =CTH - WNL = RASS -2 on propofol 30 fentanyl 50 - try to wean off and reassess Shock - multifactorial - on levo and vaso Gastric perforation, had parital [id number] --CT 12/25 - high-grade small bowel obstruction. - NG in place - LIS - as per sx Possivle PNA with patchy airspace opacity on CT ch - on zosyn Chronic a fib with RVR ( s/p dig, metoprolol prn -cardizem gtt -xarelro on hold - as pr Sx and cards - cards follow Multiple right rib fractures. - post arrest 's CPR , no PTX CAD -EF 490 % Pulm htn with PSAP in 50's - monitor for VO COPD -using oxygen at night, - CT with Severe emphysematous change and bullous disease Multiple Lung infection -Hx of pulmonary aspergillous 2019 S/p right lung decortication on January 28, 2018 resulted in hydropneumothorax and marked emphysema and had prolonged chest tube placement. ETON abuse - notr recent AAA< s/p with stent in place Nutrition - NPO with SBO - follow Electrolites replacement Accuchecks Lines : R IJ 12/26 , art line , (Central Line Necessity Reviewed) Meier: + OG: Nutrition: Analgesia: Anxiety/ delirium VTE Prophylaxis: blake 40 Stress Ulcer Prophylaxis: ppi Plans in collaboration with bedside consultants and IM MDs. Discussed with RN to reach out if any questions or concerns Case and care daily discussed on multidisciplinary rounds ( RN, PharmD, Vice President Research , Respiratory Therapy, electrical worker ) 31 minutes of critical care time was devoted to this patient today, required to treat and/or prevent further deterioration of critical care condition ( as above ) . I am remotely monitoring this patient from another state. I am unable to do the bedside exam, and history/physical and pertinent information is taken from other notes in the computer and bedside staff. Sepsis Event Evaluation Height, Weight, BMI Height: 6'4.00" Weight: 154lbs. 2.0oz. 69.696596bs; 22.05 BMI Method:Stated Exam Exam Patient acknowledged, consented, and participated in this virtual visit which was conducted using real time audio/video Vital Signs Date Time Temp Pulse Resp B/P (MAP) Pulse Ox O2 Delivery O2 Flow Rate FiO2 12/27/22 09:00 78 21 104/64 (77) 100 Mechanical Ventilator 55.00 12/27/22 08:00 73 21 137/82 (100) 100 Mechanical Ventilator 55.00 12/27/22 07:56 36.55643 77 22 112/57 100 Mechanical Ventilator 55.00 12/27/22 07:29 99 Mechanical Ventilator 70 12/27/22 07:21 36.7 96/63 (74) 12/27/22 07:00 83 12/27/22 07:00 94 18 113/63 (80) 100 Mechanical Ventilator 70.00 12/27/22 06:30 82 126/63 12/27/22 06:00 121/74 (89) Mechanical Ventilator 70.00 12/27/22 05:50 122/88 (101) 12/27/22 05:45 88 17 100 Mechanical Ventilator 70.00 12/27/22 05:40 81 19 111/76 (87) 100 Mechanical Ventilator 70.00 12/27/22 05:30 85 18 117/79 (89) 100 Mechanical Ventilator 70.00 12/27/22 05:20 84 20 119/90 (97) 100 Mechanical Ventilator 70.00 12/27/22 05:15 87 20 100 Mechanical Ventilator 70.00 12/27/22 05:10 84 19 123/77 (99) 100 Mechanical Ventilator 70.00 12/27/22 05:00 112/85 (98) 70.00 12/27/22 04:50 111/75 (82) Mechanical Ventilator 70.00 12/27/22 04:45 86 21 100 Mechanical Ventilator 70.00 12/27/22 04:40 96 20 112/75 (86) 100 Mechanical Ventilator 70.00 12/27/22 04:34 99 Mechanical Ventilator 70 12/27/22 04:33 37.1 12/27/22 04:30 85 21 111/70 (87) 100 Mechanical Ventilator 70.00 12/27/22 04:20 88 21 119/95 (106) 100 Mechanical Ventilator 70.00 12/27/22 04:15 91 20 100 Mechanical Ventilator 70.00 12/27/22 04:10 86 18 124/85 (104) 100 Mechanical Ventilator 70.00 12/27/22 04:00 107/74 (81) Mechanical Ventilator 70.00 12/27/22 03:50 113/70 (87) 70.00 12/27/22 03:50 89 115/69 12/27/22 03:45 88 19 100 Mechanical Ventilator 70.00 12/27/22 03:40 85 19 114/77 (88) 100 Mechanical Ventilator 70.00 12/27/22 03:30 82 17 112/76 (92) 100 Mechanical Ventilator 70.00 12/27/22 03:20 86 20 112/78 (89) 100 Mechanical Ventilator 70.00 12/27/22 03:15 90 20 100 Mechanical Ventilator 70.00 12/27/22 03:10 110/81 (91) 12/27/22 03:00 115/82 (88) 12/27/22 02:50 112/77 (89) 12/27/22 02:45 81 20 100 70.00 12/27/22 02:42 84 111/59 12/27/22 02:42 84 111/59 12/27/22 02:40 89 18 120/75 (87) 100 75.00 12/27/22 02:30 86 21 113/82 (91) 100 75.00 12/27/22 02:23 82 21 100 70 12/27/22 02:20 82 20 103/74 (83) 100 75.00 12/27/22 02:15 85 18 100 75.00 12/27/22 02:10 87 21 105/74 (85) 100 Mechanical Ventilator 75.00 12/27/22 02:00 87 22 113/70 (85) 100 Mechanical Ventilator 75.00 12/27/22 01:50 92 20 123/80 (98) 100 Mechanical Ventilator 75.00 12/27/22 01:30 129/80 (102) 12/27/22 01:20 91 19 124/86 (95) 100 Mechanical Ventilator 75.00 12/27/22 01:15 88 19 100 Mechanical Ventilator 75.00 12/27/22 01:10 89 21 118/58 (102) 100 Mechanical Ventilator 75.00 12/27/22 01:00 87 20 117/87 (93) 100 Mechanical Ventilator 75.00 12/27/22 01:00 105 12/27/22 00:50 120/84 (99) 12/27/22 00:45 95 20 100 Mechanical Ventilator 75.00 12/27/22 00:40 96 21 112/92 (97) 100 Mechanical Ventilator 75.00 12/27/22 00:30 89 21 111/91 (96) 100 Mechanical Ventilator 75.00 12/27/22 00:20 89 19 136/77 (108) 100 12/27/22 00:15 98 20 100 Mechanical Ventilator 75.00 12/27/22 00:10 96 20 128/88 (101) 100 Mechanical Ventilator 75.00 12/27/22 00:00 36.5 133/89 (116) 12/27/22 00:00 99 Mechanical Ventilator 75 12/26/22 23:50 95 21 120/89 (96) 100 Mechanical Ventilator 75.00 12/26/22 23:45 98 22 100 Mechanical Ventilator 75.00 12/26/22 23:40 97 21 137/89 (117) 100 Mechanical Ventilator 75.00 12/26/22 23:30 104 21 123/97 (110) 100 Mechanical Ventilator 75.00 12/26/22 23:22 91 105/58 12/26/22 23:20 108 21 128/87 (97) 100 Mechanical Ventilator 75.00 12/26/22 23:15 107 22 100 Mechanical Ventilator 75.00 12/26/22 23:00 114 24 132/84 (99) 98 Mechanical Ventilator 75.00 12/26/22 22:50 110 21 130/96 (105) 100 Mechanical Ventilator 75.00 12/26/22 22:45 110 23 100 Mechanical Ventilator 75.00 12/26/22 22:40 113 21 126/92 (107) 100 Mechanical Ventilator 75.00 12/26/22 22:32 101 25 134/92 (108) 98 Mechanical Ventilator 75.00 12/26/22 22:30 121 130/74 12/26/22 22:30 105 22 100 Mechanical Ventilator 75.00 12/26/22 22:15 116 21 98 Mechanical Ventilator 75.00 12/26/22 22:00 Mechanical Ventilator 75.00 12/26/22 21:51 124 21 99 75 12/26/22 21:40 120 22 126/102 (118) 100 Mechanical Ventilator 80.00 12/26/22 21:30 142 31 107/86 (93) 100 Mechanical Ventilator 80.00 12/26/22 21:20 140 23 121/97 (103) 100 Mechanical Ventilator 80.00 12/26/22 21:15 122 21 100 Mechanical Ventilator 80.00 12/26/22 21:15 134 124/74 12/26/22 21:14 134 124/74 12/26/22 21:10 149 22 124/78 (102) 100 Mechanical Ventilator 80.00 12/26/22 21:00 152 25 117/101 (112) 100 Mechanical Ventilator 80.00 12/26/22 20:51 154 70/54 12/26/22 20:50 154 24 79/65 (70) 94 Mechanical Ventilator 80.00 12/26/22 20:49 154 25 63/47 99 Mechanical Ventilator 12/26/22 20:45 149 23 99 Mechanical Ventilator 80.00 12/26/22 20:40 141 24 84/63 (71) 100 Mechanical Ventilator 80.00 12/26/22 20:30 151 23 121/89 (95) 100 Mechanical Ventilator 80.00 12/26/22 20:20 36.2 140 34 104/63 (74) 96 Mechanical Ventilator 80.00 12/26/22 20:20 99 Mechanical Ventilator 80 12/26/22 20:15 146 26 95 Mechanical Ventilator 80.00 12/26/22 20:10 137 35 122/58 (84) 100 Mechanical Ventilator 80.00 12/26/22 20:00 142 25 134/113 (121) 100 Mechanical Ventilator 80.00 12/26/22 19:50 133 120/93 (102) 12/26/22 19:50 133 24 120/93 (102) 97 Mechanical Ventilator 80.00 12/26/22 19:45 151 12/26/22 19:45 151 24 93 Mechanical Ventilator 80.00 12/26/22 19:40 138 32 130/90 (103) 97 Mechanical Ventilator 80.00 12/26/22 19:40 138 130/90 (103) 12/26/22 19:30 152 25 125/89 (103) 98 Mechanical Ventilator 80.00 12/26/22 19:30 152 125/89 (103) 12/26/22 19:20 152 27 117/97 (102) 98 Mechanical Ventilator 80.00 12/26/22 19:20 152 117/97 (102) 12/26/22 19:15 140 12/26/22 19:15 140 27 100 Mechanical Ventilator 80.00 12/26/22 19:10 154 120/79 (83) 12/26/22 19:10 154 23 120/79 (83) 100 Mechanical Ventilator 80.00 12/26/22 19:00 141 26 116/96 (101) 99 Mechanical Ventilator 80.00 12/26/22 19:00 145 12/26/22 19:00 141 116/96 (101) 12/26/22 18:57 144 114/77 12/26/22 18:56 149 111/73 12/26/22 18:50 152 25 104/89 (93) 88 12/26/22 18:45 144 26 95 12/26/22 18:32 151 129/77 12/26/22 18:25 151 18 95 80 12/26/22 18:00 152 18 135/96 (109) 97 Mechanical Ventilator 100.00 12/26/22 17:30 151 12 160/100 (120) 100 Mechanical Ventilator 100.00 12/26/22 17:15 81/51 (61) 12/26/22 16:43 90 12/26/22 16:15 147 24 123/78 (93) 100 Mechanical Ventilator 100.00 12/26/22 16:13 140 18 100 100 12/26/22 16:00 Mechanical Ventilator 16.00 80 12/26/22 16:00 92 NIV Bilevel 45 12/26/22 16:00 142 27 106/85 (92) 100 Mechanical Ventilator 100.00 12/26/22 15:24 119 43/23 12/26/22 15:00 79 26 85/67 (73) 69 NIV Bilevel 100.00 12/26/22 14:30 26 85 NIV Bilevel 100.00 12/26/22 14:00 128 34 138/67 (90) 88 High Flow N/C 8.00 12/26/22 13:57 149 140/92 12/26/22 13:00 101 26 139/94 (109) 92 High Flow N/C 8.00 12/26/22 13:00 149 12/26/22 12:00 92 NIV Bilevel 45 12/26/22 12:00 96 25 140/92 (108) 97 High Flow N/C 6.00 12/26/22 11:00 104 19 148/99 (115) 97 High Flow N/C 6.00 I & O 12/27/22 06:59 Intake Total 2975 ml Output Total 800 ml Balance 2175 ml Height & Weight Height: 6'4.00" Weight: 154lbs. 2.0oz. 69.736249dp; 22.05 BMI Method:Stated General Appearance: No Apparent Distress, Chronically ill HEENT: PERRL/EOMI, Pharynx Normal Neck: Normal Inspection, Non Tender Respiratory: Accessory Muscle Use, Respiratory Distress, Rhonci Cardiovascular: No Edema, No Murmur Capillary Refill: Less Than 3 Seconds Peripheral Pulses: 2+ Dorsalis Pedis (R), 2+ Left Dors-Pedis (L), 2+ Radial Pulses (R), 2+ Radial Pulses (L) Gastrointestinal: distended, tenderness (incision is c/d/i ), other (according to RN, abd is a little less distended than yesterday) Extremity: Normal Inspection, Non Tender, No Calf Tenderness Neurologic/Psychiatric: Alert, Oriented x3, No Motor/Sensory Deficits, Normal Mood/Affect Skin: Normal Color, Warm/Dry Results Lab Laboratory Tests 12/26/22 01:31 12/27/22 03:55 Assessment/Plan Assessment/Plan 1 ALEXIS MARSH MD Dec 27, 2022 10:22
[2022-12-27] MEDS: TIOTROPIUM INH 4 GM (SPIRIVA Respimat) IH SCH (10:25)
[2022-12-27] MEDS: FLUTICASONE/VILANTEROL 100/25 MCG (14 DOSES) IH SCH (10:25)
[2022-12-27 10:52] LABS: ABG BASE EXCESS 5.5 MMOL/L (-2.5-2.5); ABG OXYGEN SATURATION 99 % (94-100); ABG PCO2 48 MMHG (35-45); ABG PH 7.42 (7.37-7.43); ABG PO2 104 MMHG (79-93); ABG TCO2 32.6 MMOL/L (21.0-31.0)
[2022-12-27 10:55] LABS: VENTILATOR NO
--- NOTE | 2022-12-27 11:04 | Cardiology Progress Note ---
Cardiology SOAP Progress Note Subjective: Intubated/ventilated Objective: I&O/Vital Signs 12/26/22 12/26/22 12/26/22 12/26/22 23:15 23:20 23:22 23:30 Pulse 107 108 91 104 Resp B/P (MAP) 128/87 (97) 105/58 123/97 (110) Pulse Ox 100 100 100 O2 Delivery Mechanical Ventilator Mechanical Ventilator Mechanical Ventilator O2 Flow Rate 75.00 75.00 75.00 12/26/22 12/26/22 12/26/22 12/27/22 23:40 23:45 23:50 00:00 Pulse 97 98 95 Resp B/P (MAP) 137/89 (117) 120/89 (96) Pulse Ox 100 100 100 99 O2 Delivery Mechanical Ventilator Mechanical Ventilator Mechanical Ventilator Mechanical Ventilator O2 Flow Rate 75.00 75.00 75.00 FiO2 75 12/27/22 12/27/22 12/27/22 12/27/22 00:00 00:10 00:15 00:20 Temp 36.5 Pulse 96 98 89 Resp B/P (MAP) 133/89 (116) 128/88 (101) 136/77 (108) Pulse Ox 100 100 100 O2 Delivery Mechanical Ventilator Mechanical Ventilator O2 Flow Rate 75.00 75.00 12/27/22 12/27/22 12/27/22 12/27/22 00:30 00:40 00:45 00:50 Pulse 89 96 95 Resp B/P (MAP) 111/91 (96) 112/92 (97) 120/84 (99) Pulse Ox 100 100 100 O2 Delivery Mechanical Ventilator Mechanical Ventilator Mechanical Ventilator O2 Flow Rate 75.00 75.00 75.00 12/27/22 12/27/22 12/27/22 12/27/22 01:00 01:00 01:10 01:15 Pulse 105 87 89 88 Resp B/P (MAP) 117/87 (93) 118/58 (102) Pulse Ox 100 100 100 O2 Delivery Mechanical Ventilator Mechanical Ventilator Mechanical Ventilator O2 Flow Rate 75.00 75.00 75.00 12/27/22 12/27/22 12/27/22 12/27/22 01:20 01:30 01:50 02:00 Pulse 91 92 87 Resp B/P (MAP) 124/86 (95) 129/80 (102) 123/80 (98) 113/70 (85) Pulse Ox 100 100 100 O2 Delivery Mechanical Ventilator Mechanical Ventilator Mechanical Ventilator O2 Flow Rate 75.00 75.00 75.00 12/27/22 12/27/22 12/27/22 12/27/22 02:10 02:15 02:20 02:23 Pulse 87 85 82 82 Resp 21 18 20 21 B/P (MAP) 105/74 (85) 103/74 (83) Pulse Ox 100 100 100 100 O2 Delivery Mechanical Ventilator O2 Flow Rate 75.00 75.00 75.00 FiO2 70 12/27/22 12/27/22 12/27/22 12/27/22 02:30 02:40 02:42 02:42 Pulse 86 89 84 84 Resp 21 18 B/P (MAP) 113/82 (91) 120/75 (87) 111/59 111/59 Pulse Ox 100 100 O2 Flow Rate 75.00 75.00 12/27/22 12/27/22 12/27/22 12/27/22 02:45 02:50 03:00 03:10 Pulse 81 Resp 20 B/P (MAP) 112/77 (89) 115/82 (88) 110/81 (91) Pulse Ox 100 O2 Flow Rate 70.00 12/27/22 12/27/22 12/27/22 12/27/22 03:15 03:20 03:30 03:40 Pulse 90 86 82 85 Resp 20 20 17 19 B/P (MAP) 112/78 (89) 112/76 (92) 114/77 (88) Pulse Ox 100 100 100 100 O2 Delivery Mechanical Ventilator Mechanical Ventilator Mechanical Ventilator Mechanical Ventilator O2 Flow Rate 70.00 70.00 70.00 70.00 12/27/22 12/27/22 12/27/22 12/27/22 03:45 03:50 03:50 04:00 Pulse 88 89 Resp 19 B/P (MAP) 115/69 113/70 (87) 107/74 (81) Pulse Ox 100 O2 Delivery Mechanical Ventilator Mechanical Ventilator O2 Flow Rate 70.00 70.00 70.00 12/27/22 12/27/22 12/27/22 12/27/22 04:10 04:15 04:20 04:30 Pulse 86 91 88 85 Resp 18 20 21 21 B/P (MAP) 124/85 (104) 119/95 (106) 111/70 (87) Pulse Ox 100 100 100 100 O2 Delivery Mechanical Ventilator Mechanical Ventilator Mechanical Ventilator Mechanical Ventilator O2 Flow Rate 70.00 70.00 70.00 70.00 12/27/22 12/27/22 12/27/22 12/27/22 04:33 04:34 04:40 04:45 Temp 37.1 Pulse 96 86 Resp 20 21 B/P (MAP) 112/75 (86) Pulse Ox 99 100 100 O2 Delivery Mechanical Ventilator Mechanical Ventilator Mechanical Ventilator O2 Flow Rate 70.00 70.00 FiO2 70 12/27/22 12/27/22 12/27/22 12/27/22 04:50 05:00 05:10 05:15 Pulse 84 87 Resp 19 20 B/P (MAP) 111/75 (82) 112/85 (98) 123/77 (99) Pulse Ox 100 100 O2 Delivery Mechanical Ventilator Mechanical Ventilator Mechanical Ventilator O2 Flow Rate 70.00 70.00 70.00 70.00 12/27/22 12/27/22 12/27/22 12/27/22 05:20 05:30 05:40 05:45 Pulse 84 85 81 88 Resp 20 18 19 17 B/P (MAP) 119/90 (97) 117/79 (89) 111/76 (87) Pulse Ox 100 100 100 100 O2 Delivery Mechanical Ventilator Mechanical Ventilator Mechanical Ventilator Mechanical Ventilator O2 Flow Rate 70.00 70.00 70.00 70.00 12/27/22 12/27/22 12/27/22 12/27/22 05:50 06:00 06:30 07:00 Pulse 82 94 Resp 18 B/P (MAP) 122/88 (101) 121/74 (89) 126/63 113/63 (80) Pulse Ox 100 O2 Delivery Mechanical Ventilator Mechanical Ventilator O2 Flow Rate 70.00 70.00 12/27/22 12/27/22 12/27/22 12/27/22 07:00 07:21 07:29 07:56 Temp 36.7 36.84708 Pulse 83 77 Resp 22 B/P (MAP) 96/63 (74) 112/57 Pulse Ox 99 100 O2 Delivery Mechanical Ventilator Mechanical Ventilator O2 Flow Rate 55.00 FiO2 70 12/27/22 12/27/22 12/27/22 08:00 09:00 10:00 Pulse 73 78 84 Resp 21 21 25 B/P (MAP) 137/82 (100) 104/64 (77) 105/79 (88) Pulse Ox 100 100 100 O2 Delivery Mechanical Ventilator Mechanical Ventilator Mechanical Ventilator O2 Flow Rate 55.00 55.00 55.00 12/26/22 23:59 Intake Total 700 ml Output Total 50 ml Balance 650 ml Weight (Pounds): 154 Weight (Ounces): 2.0 Weight (Calculated Kilograms): 69.838252 Constitutional: other (Intubated/ventilated) Respiratory: lungs clear to auscultation, other (Intubated/ventilated) Cardiovascular: irregularly irregular Gastrointestional: tenderness Extremities: No pedal edema Neurologic/Psychiatric: other (Intubated/ventilated) Skin: cool, mottled Results/Procedures: Labs Laboratory Tests 12/26/22 14:10: Troponin I < 0.028 12/26/22 14:55: Arterial Blood pH 7.35L, Arterial Blood Partial Pressure CO2 70H, Arterial Blood Partial Pressure O2 53L, Arterial Blood HCO3 39H, Arterial Blood Total CO2 40.7*H, Arterial Blood Oxygen Saturation 77L, Arterial Blood Base Excess 10.1H, Blood Gas Ventilator Setting YES, Blood Gas Inspired Oxygen 45% 12/26/22 16:00: Troponin I < 0.028 12/26/22 18:11: Troponin I < 0.028 12/26/22 23:47: Glucometer 222H 12/27/22 03:55: White Blood Count 24.5H, Red Blood Count 3.63L, Hemoglobin 12.6L, Hematocrit 37L , Mean Corpuscular Volume 101H, Mean Corpuscular Hemoglobin 35H, Mean Corpuscular Hemoglobin Concent 34, Red Cell Distribution Width 13.9, Platelet Count 194, Mean Platelet Volume 10.4, Sodium Level 131L, Potassium Level 3.3L, Chloride Level 94L, Carbon Dioxide Level 29, Anion Gap 8, Blood Urea Nitrogen 18, Creatinine 1.12, Estimat Glomerular Filtration Rate 72, BUN/Creatinine Ratio 16, Glucose Level 168H, Calcium Level 8.2L, Magnesium Level 1.5L 12/27/22 10:29: Arterial Blood pH 7.42, Arterial Blood Partial Pressure CO2 48H, Arterial Blood Partial Pressure O2 104H, Arterial Blood HCO3 31H, Arterial Blood Total CO2 32.6H, Arterial Blood Oxygen Saturation 99, Arterial Blood Base Excess 5.5H, Blood Gas Ventilator Setting NO, Blood Gas Inspired Oxygen 55% Microbiology 12/22/22 MRSA Screen - Final, Complete MRSA not isolated A/P: Assessment/Dx: Acute abdomen Acute respiratory failure Coronary artery disease Permanent atrial fibrillation Plan: S/p respiratory arrest followed by PEA and hypotension. Brief CPR yesterday. Serial troponin negative. CA has been ruled out. Continue electrolyte repletion. Status post acute abdomen, gastric perforation, status post exploratory laparotomy done on December 21, 2022 Patient extubated, NG tube in place. Acute respiratory failure, ventilator dependent History of COPD with recurrent respiratory failure. Had multiple hospi talization in February and July 2022 Managed by primary care team permanent atrial fibrillation, maintained on Cardizem drip Maintained on Cardizem History of ablation in April [address] Godfrey, had multiple cardiac arrest and complex hospitalization in October 2017 Atrial fibrillation heart rate is much better controlled. Coronary artery disease, history of stenting using 3.020 mm Promus stent to the right coronary artery done in March 2012. Stress test done on November 01, 2019 showing Baseline atrial fibrillation, decreased uptake involving the mid to apical inferior wall with no reversibility, ejection fraction 40 percent probably due to tachycardia. Patient had been having more chest pain recently, was scheduled for [facility] on December 23, 2022 as outpatient. Will postpone at this time. Repeat troponin were all negative. Acute CA ruled out COPD, using oxygen at night, had a complex hospitalization with Legionella pneumonia and CMV, respiratory failure, multiple cardiac arrest in October 2017. loculated pneumonia underwent right lung decortication on January 28, 2018 resulted in hydropneumothorax and marked emphysema and had prolonged chest tube placement. History of congestive heart failure, chronic left ventricular systolic dysfunction. 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 Abdominal aortic aneurysm, had a stent placed by Dr. Hogue done in June 2021. Hypertension, continue to monitor. Hyperlipidemia, continue to monitor lipids Tobaccoyessenia, Winston MOODY MD Dec 27, 2022 11:04
--- NOTE | 2022-12-27 11:27 | Progress Note - Hospitalist ---
LEONIE DAVIS 12/27/22 1127: Subjective HPI/CC On Admission Date Seen by Provider: Dec 27, 2022 Time Seen by Provider: 11:20 Subjective/Events-last exam Pt is intubated. Yesterday afternoon, pt had a declining O2 sat (in 60s) and was placed on Bipap at max settings. Sats did not increase past 85%. Pt was intubated successfully. Pt then experienced drop in BP and there was a loss of pulses. A code was called and CPR was performed for 2 min. 1 dose of epi was given. QUANG was achieved. Patient remains intubated and had a central line placed. Pts and two sons are present at bedside. Review of Systems intubated Objective Exam Vital Signs Vital Signs Date Time Temp Pulse Resp B/P (MAP) Pulse Ox O2 Delivery O2 Flow Rate FiO2 12/27/22 11:13 70 103/58 12/27/22 10:00 25 100 Mechanical Ventilator 55.00 12/27/22 07:56 36.20009 12/27/22 07:29 70 Capillary Refill : Less Than 3 Seconds General Appearance: Chronically ill, Other (intubated) Respiratory: No Accessory Muscle Use, Crackles, Other (intubated) Cardiovascular: No Gallop, Normal Peripheral Pulses Gastrointestinal: Abnormal Bowel Sounds (hypoactive), Distended Extremity: Normal Capillary Refill, Normal Inspection Neurologic/Psychiatric: Other (intubated) Skin: Normal Color, Warm/Dry Results/Procedures Lab Laboratory Tests 12/27/22 03:55 Patient resulted labs reviewed. Assessment/Plan Assessment and Plan Assess & Plan/Chief Complaint Chronic resp failure, post-code - Intubated post code. 55%, PEEP 5, 100% O2 - MAT protocol - Continue Zosyn 4.5 gm IV q8hrs - Continue fluconazole Shock, mixed - Continue pressors- vasopression and levophed. Begin to wean off one of them - Keep MAP 60-65 Atrial fibrillation - Good rate control. Continue diltiazem drip 5 mg/hr and begin to wean - Followed by cardiology SBO - OG tube placed - NPO - Followed by surgery Gastric perforation s/p partial gastrectomy - Followed by surgery Alcoholism - CIWA protocol Critical Care: Ventilator Management KAI VILLATORO MD 12/27/22 1511: Assessment/Plan Assessment and Plan Assess & Plan/Chief Complaint Patient suffered respiratory arrest yesterday and subsequent post intubcation cardiac arrest. CPR was done briefly before ROSC and seems to be associated with post intubation hypotension though he has still remained hypotensive. Troponins were trended and negative. CT Head/Chest/Abd/Pelvis were ordered after patient stabilized which revealed no acute intracranial abnormalties, high grade bowel obstruction with free air (similar to previous study), emphysema with edema,rib fracture consistent with CPR, and known aortic aneursym with stent and no evidence of endoleak. This morning he is on Vasopressin and Levophed though they are being weaned. He has already weaned down on needed cardizem to control heart rate. Spoke with Dr Mclaughlin last night regarding bowel obstruction and he rec ommended OGT as was already in place. This morning he request repear CXR to evaluate for free air which was ordered. Updated family ( and his two sons) regarding his status, imaging, and lab findings. Answered all questions. Pt is laying in bed and sedated and appears comfortable. He did attempt to open eyes when I spoke to him and grasped my hand during exam. Will continue vent support per eICU, wean pressors as able, continue IV abx. Defer to primary for further management of his postoperative issues. Supervisory-Addendum Brief Verification & Attestation Participated in pt care: history, MDM, physical Personally performed: exam, history, MDM, supervision of care Care discussed with: Medical Student Procedures: n/a Results interpretation: Verified all documentation Verification and Attestation of Medical Student E/M Service A medical student performed and documented this service in my presence. I reviewed and verified all information documented by the medical student and made modifications to such information, when appropriate. I personally performed the physical exam and medical decision making. Kai Villatoro, Dec 27, 2022,15:03 LEONIE DAVIS Dec 27, 2022 11:27 KAI VILLATORO MD Dec 27, 2022 15:11
[2022-12-27] MEDS: RT-Ipratropium/Albuterol NEB 3 ML VIAL INH SCH ×2 (11:28→22:03)
[2022-12-27] MEDS: PANTOPRAZOLE INJECTION 40 MG VIAL IV SCH ×2 (11:33→20:03)
--- NOTE | 2022-12-27 12:33 | Diagnostic Imaging Report ---
EXAMINATION: Chest 1 view HISTORY: Tube placement COMPARISON: 12/27/2019 FINDINGS: Endotracheal tube tip terminates 4 cm above the saleem. Gastric tube tip is at the gastroesophageal junction. Right internal jugular central venous catheter tip terminates in the superior vena cava. There is mild edema. No pneumothorax. Heart size is normal. IMPRESSION: 1. Mild pulmonary edema. 2. Gastric tube is at the gastroesophageal junction and could be advanced 5 cm. Dictated by: Dictated on workstation # [id number]
[2022-12-27 14:30] VITALS: BP 114/50
--- NOTE | 2022-12-27 15:03 | Progress Note - Surgery ---
Subjective Time Seen by a Provider: 12:01 Subjective/Events-last exam Pt seen and examined, he is intubated and sedated. He apparently was able to squeeze hospitalists hand when asked earlier. Review of Systems pt intubated and unable to answer Objective Exam Vital Signs Date Time Temp Pulse Resp B/P (MAP) Pulse Ox O2 Delivery O2 Flow Rate FiO2 12/27/22 13:00 70 18 105/65 (78) 100 Mechanical Ventilator 55.00 12/27/22 13:00 69 12/27/22 12:47 36.8 12/27/22 12:45 70 103/61 12/27/22 12:00 70 22 101/63 (76) 100 Mechanical Ventilator 55.00 12/27/22 11:46 69 22 91/62 (72) 100 Mechanical Ventilator 55.00 12/27/22 11:13 70 103/58 12/27/22 11:00 69 22 91/62 (72) 100 Mechanical Ventilator 55.00 12/27/22 10:00 84 25 105/79 (88) 100 Mechanical Ventilator 55.00 12/27/22 09:00 78 21 104/64 (77) 100 Mechanical Ventilator 55.00 12/27/22 08:00 73 21 137/82 (100) 100 Mechanical Ventilator 55.00 12/27/22 07:56 36.03945 77 22 112/57 100 Mechanical Ventilator 55.00 12/27/22 07:29 99 Mechanical Ventilator 70 12/27/22 07:21 36.7 96/63 (74) 12/27/22 07:00 83 12/27/22 07:00 94 18 113/63 (80) 100 Mechanical Ventilator 70.00 12/27/22 06:30 82 126/63 12/27/22 06:00 121/74 (89) Mechanical Ventilator 70.00 12/27/22 05:50 122/88 (101) 12/27/22 05:45 88 17 100 Mechanical Ventilator 70.00 12/27/22 05:40 81 19 111/76 (87) 100 Mechanical Ventilator 70.00 12/27/22 05:30 85 18 117/79 (89) 100 Mechanical Ventilator 70.00 12/27/22 05:20 84 20 119/90 (97) 100 Mechanical Ventilator 70.00 12/27/22 05:15 87 20 100 Mechanical Ventilator 70.00 12/27/22 05:10 84 19 123/77 (99) 100 Mechanical Ventilator 70.00 12/27/22 05:00 112/85 (98) 70.00 12/27/22 04:50 111/75 (82) Mechanical Ventilator 70.00 12/27/22 04:45 86 21 100 Mechanical Ventilator 70.00 12/27/22 04:40 96 20 112/75 (86) 100 Mechanical Ventilator 70.00 12/27/22 04:34 99 Mechanical Ventilator 70 12/27/22 04:33 37.1 12/27/22 04:30 85 21 111/70 (87) 100 Mechanical Ventilator 70.00 12/27/22 04:20 88 21 119/95 (106) 100 Mechanical Ventilator 70.00 12/27/22 04:15 91 20 100 Mechanical Ventilator 70.00 12/27/22 04:10 86 18 124/85 (104) 100 Mechanical Ventilator 70.00 12/27/22 04:00 107/74 (81) Mechanical Ventilator 70.00 12/27/22 03:50 113/70 (87) 70.00 12/27/22 03:50 89 115/69 12/27/22 03:45 88 19 100 Mechanical Ventilator 70.00 12/27/22 03:40 85 19 114/77 (88) 100 Mechanical Ventilator 70.00 12/27/22 03:30 82 17 112/76 (92) 100 Mechanical Ventilator 70.00 12/27/22 03:20 86 20 112/78 (89) 100 Mechanical Ventilator 70.00 12/27/22 03:15 90 20 100 Mechanical Ventilator 70.00 12/27/22 03:10 110/81 (91) 12/27/22 03:00 115/82 (88) 12/27/22 02:50 112/77 (89) 12/27/22 02:45 81 20 100 70.00 12/27/22 02:42 84 111/59 12/27/22 02:42 84 111/59 12/27/22 02:40 89 18 120/75 (87) 100 75.00 12/27/22 02:30 86 21 113/82 (91) 100 75.00 12/27/22 02:23 82 21 100 70 12/27/22 02:20 82 20 103/74 (83) 100 75.00 12/27/22 02:15 85 18 100 75.00 12/27/22 02:10 87 21 105/74 (85) 100 Mechanical Ventilator 75.00 12/27/22 02:00 87 22 113/70 (85) 100 Mechanical Ventilator 75.00 12/27/22 01:50 92 20 123/80 (98) 100 Mechanical Ventilator 75.00 12/27/22 01:30 129/80 (102) 12/27/22 01:20 91 19 124/86 (95) 100 Mechanical Ventilator 75.00 12/27/22 01:15 88 19 100 Mechanical Ventilator 75.00 12/27/22 01:10 89 21 118/58 (102) 100 Mechanical Ventilator 75.00 12/27/22 01:00 87 20 117/87 (93) 100 Mechanical Ventilator 75.00 12/27/22 01:00 105 12/27/22 00:50 120/84 (99) 12/27/22 00:45 95 20 100 Mechanical Ventilator 75.00 12/27/22 00:40 96 21 112/92 (97) 100 Mechanical Ventilator 75.00 12/27/22 00:30 89 21 111/91 (96) 100 Mechanical Ventilator 75.00 12/27/22 00:20 89 19 136/77 (108) 100 12/27/22 00:15 98 20 100 Mechanical Ventilator 75.00 12/27/22 00:10 96 20 128/88 (101) 100 Mechanical Ventilator 75.00 12/27/22 00:00 36.5 133/89 (116) 12/27/22 00:00 99 Mechanical Ventilator 75 12/26/22 23:50 95 21 120/89 (96) 100 Mechanical Ventilator 75.00 12/26/22 23:45 98 22 100 Mechanical Ventilator 75.00 12/26/22 23:40 97 21 137/89 (117) 100 Mechanical Ventilator 75.00 12/26/22 23:30 104 21 123/97 (110) 100 Mechanical Ventilator 75.00 12/26/22 23:22 91 105/58 12/26/22 23:20 108 21 128/87 (97) 100 Mechanical Ventilator 75.00 12/26/22 23:15 107 22 100 Mechanical Ventilator 75.00 12/26/22 23:00 114 24 132/84 (99) 98 Mechanical Ventilator 75.00 12/26/22 22:50 110 21 130/96 (105) 100 Mechanical Ventilator 75.00 12/26/22 22:45 110 23 100 Mechanical Ventilator 75.00 12/26/22 22:40 113 21 126/92 (107) 100 Mechanical Ventilator 75.00 12/26/22 22:32 101 25 134/92 (108) 98 Mechanical Ventilator 75.00 12/26/22 22:30 121 130/74 12/26/22 22:30 105 22 100 Mechanical Ventilator 75.00 12/26/22 22:15 116 21 98 Mechanical Ventilator 75.00 12/26/22 22:00 Mechanical Ventilator 75.00 12/26/22 21:51 124 21 99 75 12/26/22 21:40 120 22 126/102 (118) 100 Mechanical Ventilator 80.00 12/26/22 21:30 142 31 107/86 (93) 100 Mechanical Ventilator 80.00 12/26/22 21:20 140 23 121/97 (103) 100 Mechanical Ventilator 80.00 12/26/22 21:15 122 21 100 Mechanical Ventilator 80.00 12/26/22 21:15 134 124/74 12/26/22 21:14 134 124/74 12/26/22 21:10 149 22 124/78 (102) 100 Mechanical Ventilator 80.00 12/26/22 21:00 152 25 117/101 (112) 100 Mechanical Ventilator 80.00 12/26/22 20:51 154 70/54 12/26/22 20:50 154 24 79/65 (70) 94 Mechanical Ventilator 80.00 12/26/22 20:49 154 25 63/47 99 Mechanical Ventilator 12/26/22 20:45 149 23 99 Mechanical Ventilator 80.00 12/26/22 20:40 141 24 84/63 (71) 100 Mechanical Ventilator 80.00 12/26/22 20:30 151 23 121/89 (95) 100 Mechanical Ventilator 80.00 12/26/22 20:20 36.2 140 34 104/63 (74) 96 Mechanical Ventilator 80.00 12/26/22 20:20 99 Mechanical Ventilator 80 12/26/22 20:15 146 26 95 Mechanical Ventilator 80.00 12/26/22 20:10 137 35 122/58 (84) 100 Mechanical Ventilator 80.00 12/26/22 20:00 142 25 134/113 (121) 100 Mechanical Ventilator 80.00 12/26/22 19:50 133 120/93 (102) 12/26/22 19:50 133 24 120/93 (102) 97 Mechanical Ventilator 80.00 12/26/22 19:45 151 12/26/22 19:45 151 24 93 Mechanical Ventilator 80.00 12/26/22 19:40 138 32 130/90 (103) 97 Mechanical Ventilator 80.00 12/26/22 19:40 138 130/90 (103) 12/26/22 19:30 152 25 125/89 (103) 98 Mechanical Ventilator 80.00 12/26/22 19:30 152 125/89 (103) 12/26/22 19:20 152 27 117/97 (102) 98 Mechanical Ventilator 80.00 12/26/22 19:20 152 117/97 (102) 12/26/22 19:15 140 12/26/22 19:15 140 27 100 Mechanical Ventilator 80.00 12/26/22 19:10 154 120/79 (83) 12/26/22 19:10 154 23 120/79 (83) 100 Mechanical Ventilator 80.00 12/26/22 19:00 141 26 116/96 (101) 99 Mechanical Ventilator 80.00 12/26/22 19:00 145 12/26/22 19:00 141 116/96 (101) 12/26/22 18:57 144 114/77 12/26/22 18:56 149 111/73 12/26/22 18:50 152 25 104/89 (93) 88 12/26/22 18:45 144 26 95 12/26/22 18:32 151 129/77 12/26/22 18:25 151 18 95 80 12/26/22 18:00 152 18 135/96 (109) 97 Mechanical Ventilator 100.00 12/26/22 17:30 151 12 160/100 (120) 100 Mechanical Ventilator 100.00 12/26/22 17:15 81/51 (61) 12/26/22 16:43 90 12/26/22 16:15 147 24 123/78 (93) 100 Mechanical Ventilator 100.00 12/26/22 16:13 140 18 100 100 12/26/22 16:00 Mechanical Ventilator 16.00 80 12/26/22 16:00 92 NIV Bilevel 45 12/26/22 16:00 142 27 106/85 (92) 100 Mechanical Ventilator 100.00 12/26/22 15:24 119 43/23 12/26/22 15:00 79 26 85/67 (73) 69 NIV Bilevel 100.00 I & O 12/27/22 06:59 Intake Total 2975 ml Output Total 800 ml Balance 2175 ml Capillary Refill : Less Than 3 Seconds General Appearance: Chronically ill, Other (intubated) HEENT: PERRL/EOMI Respiratory: No Accessory Muscle Use, Crackles, Decreased Breath Sounds (left base), Other (intubated) Cardiovascular: No Murmur, Irregularly Irregular Peripheral Pulses: 2+ Dorsalis Pedis (R), 2+ Left Dors-Pedis (L), 2+ Radial Pulses (R), 2+ Radial Pulses (L) Gastrointestinal: distended (possibly more than yesterday, but soft), other (incision is c/d/i ) Neurologic/Psychiatric: Other (intubated) Skin: Normal Color, Warm/Dry Results Lab Laboratory Tests 12/26/22 14:55: Arterial Blood pH 7.35L, Arterial Blood Partial Pressure CO2 70H, Arterial Blood Partial Pressure O2 53L, Arterial Blood HCO3 39H, Arterial Blood Total CO2 40.7*H, Arterial Blood Oxygen Saturation 77L, Arterial Blood Base Excess 10.1H, Blood Gas Ventilator Setting YES, Blood Gas Inspired Oxygen 45% 12/26/22 16:00: Troponin I < 0.028 12/26/22 18:11: Troponin I < 0.028 12/26/22 23:47: Glucometer 222H 12/27/22 03:55: White Blood Count 24.5H, Red Blood Count 3.63L, Hemoglobin 12.6L, Hematocrit 37L , Mean Corpuscular Volume 101H, Mean Corpuscular Hemoglobin 35H, Mean Corpuscular Hemoglobin Concent 34, Red Cell Distribution Width 13.9, Platelet Count 194, Mean Platelet Volume 10.4, Sodium Level 131L, Potassium Level 3.3L, Chloride Level 94L, Carbon Dioxide Level 29, Anion Gap 8, Blood Urea Nitrogen 18, Creatinine 1.12, Estimat Glomerular Filtration Rate 72, BUN/Creatinine Ratio 16, Glucose Level 168H, Calcium Level 8.2L, Magnesium Level 1.5L 12/27/22 10:29: Arterial Blood pH 7.42, Arterial Blood Partial Pressure CO2 48H, Arterial Blood Partial Pressure O2 104H, Arterial Blood HCO3 31H, Arterial Blood Total CO2 32.6H, Arterial Blood Oxygen Saturation 99, Arterial Blood Base Excess 5.5H, Blood Gas Ventilator Setting NO, Blood Gas Inspired Oxygen 55% Microbiology 12/22/22 MRSA Screen - Final, Complete MRSA not isolated Assessment/Plan Assessment/Plan Assessment/Plan S/P Respiratory Arrest Severe Gastric Distention Ileus I reviewed the CT chest/abdomen/pelvis I don't see any free air, but severe distention of the stomach and Oral GT does not appear to be in stomach. I asked nurse to remove it and place and NGT, pt will need one even after extubation. Continue sedation due to intubation needs and Levophed for blood pressure support (as needed). KANNAN FREY DO Dec 27, 2022 15:03
--- NOTE | 2022-12-27 15:03 | Diagnostic Imaging Report ---
EXAM: Chest 1 view, AP/PA only INDICATION: NG tube adjustment. COMPARISON: Chest radiograph at 12:12 PM today. FINDINGS/ IMPRESSION: Chest radiograph acquired at 2:39 PM demonstrates NG tube tip in the distal esophagus. This should be advanced. ETT tip approximately 1 cm from the saleem. Right IJ CVC tip upper SVC. Normal heart size. No new focal pulmonary opacity. Dictated by: Dictated on workstation # [id number]
[2022-12-27] MEDS: fentaNYL DRIP PRE-MIX 250 ML IV SCH (15:58)
[2022-12-27] MEDS: ENOXAPARIN 40 MG/0.4 ML SYRINGE SC SCH (15:59)
[2022-12-27] MEDS: VASOPRESSIN 20 UNITS/NS 100 ML DRIP IV SCH ×2 (18:03)
[2022-12-27 18:30] VITALS: BP 114/51
[2022-12-27 22:03] VITALS: BP 109/53
[2022-12-28] MEDS: PIPERACILLIN/Tazobactam 4.5 GM in NS (IVPB) 100 ML 100 ML IV SCH ×3 (01:36→18:17)
[2022-12-28] MEDS: dilTIAZem DRIP PRE-MIX 125 ML IV SCH (02:16)
[2022-12-28] MEDS: LACTATED RINGERS 1,000 ML 1,000 ML IV SCH ×4 (02:16→20:21)
[2022-12-28 02:46] VITALS: BP 104/54
[2022-12-28 03:39] LABS: ABG BASE EXCESS 5.1 MMOL/L (-2.5-2.5); ABG OXYGEN SATURATION 89 % (94-100); ABG PCO2 47 MMHG (35-45); ABG PH 7.42 (7.37-7.43); ABG PO2 57 MMHG (79-93); ABG TCO2 31.9 MMOL/L (21.0-31.0)
[2022-12-28 03:42] LABS: HEMOGLOBIN 10.2 g/dL (13.3-17.7); MEAN PLATELET VOLUME 10.4 fL (9.0-12.2); WHITE BLOOD COUNT 16.9 10^3/uL (4.3-11.0)
[2022-12-28 03:51] LABS: CALCIUM 7.8 MG/DL (8.5-10.1)
[2022-12-28 03:55] LABS: CREATININE SERUM 0.87 MG/DL (0.60-1.30)
[2022-12-28 03:57] LABS: INSPIRED O2 40%; MAGNESIUM 1.9 MG/DL (1.6-2.4); VENTILATOR YES
[2022-12-28] MEDS: MAGNESIUM 1 GM/100 ML IVPB 100 ML IV SCH ×3 (04:12→04:22)
[2022-12-28] MEDS: POTASSIUM CHLORIDE 20 MEQ TABLET PO SCH (04:12)
[2022-12-28] MEDS: POTASSIUM CL 10MEQ/50ML IVPB 50 ML IV SCH (04:12)
[2022-12-28] MEDS: VASOPRESSIN 20 UNITS/NS 100 ML DRIP IV SCH ×4 (05:34→16:25)
[2022-12-28] MEDS: RT-Ipratropium/Albuterol NEB 3 ML VIAL INH SCH ×2 (06:14→21:21)
[2022-12-28 06:16] VITALS: BP 100/52
--- NOTE | 2022-12-28 06:44 | Progress Note - Surgery ---
NEMESIO HODGSON 12/28/22 0644: Subjective Date Seen by a Provider: Dec 28, 2022 Time Seen by a Provider: 06:20 Subjective/Events-last exam Pt is intubated and sedated day 2. Objective Exam Vital Signs Date Time Temp Pulse Resp B/P (MAP) Pulse Ox O2 Delivery O2 Flow Rate FiO2 12/28/22 06:16 93 17 94 40 12/28/22 06:00 93 17 100/61 (73) 94 Mechanical Ventilator 40.00 12/28/22 05:34 92 105/54 12/28/22 05:08 96 107/54 12/28/22 05:00 103 16 110/68 (86) 94 Mechanical Ventilator 40.00 12/28/22 04:09 40 12/28/22 04:00 99 12 105/66 (81) 93 12/28/22 03:55 93 Mechanical Ventilator 40 12/28/22 03:50 37.0 98 18 99/63 (75) 93 Mechanical Ventilator 40.00 12/28/22 03:00 98 18 99/63 (76) 94 12/28/22 02:46 85 16 94 40 12/28/22 02:16 97 116/55 12/28/22 02:00 97 17 101/62 (75) 95 Mechanical Ventilator 40.00 116/55 (75) 12/28/22 01:00 96 12/28/22 01:00 86 17 101/60 (73) 93 Mechanical Ventilator 40.00 12/28/22 00:54 81 104/51 12/28/22 00:00 90 18 98/64 (81) 93 Mechanical Ventilator 40.00 12/28/22 00:00 40 12/27/22 23:00 36.8 84 18 105/60 (75) 93 Mechanical Ventilator 40.00 112/54 (73) 12/27/22 23:00 94 Mechanical Ventilator 40 12/27/22 22:03 86 19 93 40 12/27/22 22:00 89 18 96/55 (71) 92 Mechanical Ventilator 40.00 12/27/22 21:44 85 132/55 12/27/22 21:00 89 19 109/63 (79) 94 Mechanical Ventilator 40.00 12/27/22 20:54 78 129/54 12/27/22 20:03 76 110/54 11/12/23 20:00 40 12/27/22 20:00 76 18 90/57 (72) 95 Mechanical Ventilator 40.00 12/27/22 19:57 79 109/52 12/27/22 19:47 36.2 12/27/22 19:30 93 Mechanical Ventilator 40 12/27/22 19:00 79 18 95/66 (76) 93 Mechanical Ventilator 40.00 109/52 (71) 12/27/22 19:00 73 12/27/22 18:30 80 18 93 40 12/27/22 18:03 36.83539 73 19 112/50 93 Mechanical Ventilator 16.00 12/27/22 18:03 73 112/50 12/27/22 17:00 80 19 104/65 (78) 93 Mechanical Ventilator 40.00 12/27/22 16:00 99 Mechanical Ventilator 70 12/27/22 16:00 76 17 110/62 (78) 93 Mechanical Ventilator 40.00 12/27/22 15:58 36.1 12/27/22 15:58 76 123/51 12/27/22 15:35 Mechanical Ventilator 40.00 12/27/22 15:00 71 22 112/66 (81) 100 Mechanical Ventilator 35.00 12/27/22 14:30 69 20 99 35 12/27/22 14:00 69 19 101/64 (76) 100 Mechanical Ventilator 35.00 12/27/22 13:00 70 18 105/65 (78) 100 Mechanical Ventilator 55.00 12/27/22 13:00 70 12/27/22 12:47 36.8 12/27/22 12:45 70 103/61 12/27/22 12:00 99 Mechanical Ventilator 70 12/27/22 12:00 70 22 101/63 (76) 100 Mechanical Ventilator 55.00 12/27/22 11:46 69 22 91/62 (72) 100 Mechanical Ventilator 55.00 12/27/22 11:13 70 103/58 12/27/22 11:00 69 22 91/62 (72) 100 Mechanical Ventilator 55.00 12/27/22 10:00 84 25 105/79 (88) 100 Mechanical Ventilator 55.00 12/27/22 09:00 78 21 104/64 (77) 100 Mechanical Ventilator 55.00 12/27/22 08:00 73 21 137/82 (100) 100 Mechanical Ventilator 55.00 12/27/22 07:56 36.71628 77 22 112/57 100 Mechanical Ventilator 55.00 12/27/22 07:29 99 Mechanical Ventilator 70 12/27/22 07:21 36.7 96/63 (74) 12/27/22 07:00 78 19 100 55 12/27/22 07:00 83 12/27/22 07:00 94 18 113/63 (80) 100 Mechanical Ventilator 70.00 I & O 12/28/22 07:00 Intake Total 3061 ml Output Total 955 ml Balance 2106 ml Capillary Refill : Less Than 3 Seconds General Appearance: Chronically ill, Other (intubated) HEENT: PERRL/EOMI Respiratory: No Accessory Muscle Use, Crackles, Decreased Breath Sounds (left base), Other (intubated) Cardiovascular: No Murmur, Irregularly Irregular Peripheral Pulses: 2+ Dorsalis Pedis (R), 2+ Left Dors-Pedis (L), 2+ Radial Pulses (R), 2+ Radial Pulses (L) Gastrointestinal: soft, distended, other (incision is not erythematous, swollen, or exuding pus) Neurologic/Psychiatric: Other (intubated and sedated) Skin: Normal Color, Warm/Dry Results Lab Laboratory Tests 12/27/22 10:29: Arterial Blood pH 7.42, Arterial Blood Partial Pressure CO2 48H, Arterial Blood Partial Pressure O2 104H, Arterial Blood HCO3 31H, Arterial Blood Total CO2 32.6H, Arterial Blood Oxygen Saturation 99, Arterial Blood Base Excess 5.5H, Blood Gas Ventilator Setting NO, Blood Gas Inspired Oxygen 55% 12/27/22 17:49: Glucometer 110 12/27/22 23:03: Glucometer 94 12/28/22 03:28: Arterial Blood pH 7.42, Arterial Blood Partial Pressure CO2 47H, Arterial Blood Partial Pressure O2 57L, Arterial Blood HCO3 31H, Arterial Blood Total CO2 31.9H , Arterial Blood Oxygen Saturation 89L, Arterial Blood Base Excess 5.1H, Blood Gas Ventilator Setting YES, Blood Gas Inspired Oxygen 40%, White Blood Count 16.9H, Red Blood Count 2.97L, Hemoglobin 10.2L, Hematocrit 30L, Mean Corpuscular Volume 101H, Mean Corpuscular Hemoglobin 34, Mean Corpuscular Hemoglobin Concent 34, Red Cell Distribution Width 14.6H, Platelet Count 145, Mean Platelet Volume 10.4, Percent Immature Platelet Fraction 7.6, Sodium Level 132L, Potassium Level 4.0, Chloride Level 98, Carbon Dioxide Level 27, Anion Gap 7, Blood Urea Nitrogen 13, Creatinine 0.87, Estimat Glomerular Filtration Rate 95, BUN/Creatinine Ratio 15, Glucose Level 113H, Calcium Level 7.8L, Magnesium Level 1.9 Microbiology 12/26/22 Gram Stain, Resulted Pending 12/26/22 Sputum Culture - Preliminary, Resulted Gram Negative Tony Assessment/Plan Assessment/Plan Assessment/Plan Assessment: S/P Respiratory Arrest Severe Gastric Distention Ileus Plan: Maintain blood pressure- vasopressin Monitor abdominal distension NPO NG decompression CROW DAVIS DO 12/28/221832: Subjective Subjective/Events-last exam Intubated and sedated. Trial weaning for extubation. Still on pressors. Objective Exam General Appearance: Chronically ill, Other (intubated) HEENT: PERRL/EOMI, Moist Mucous Membranes Neck: Normal Inspection Respiratory: No Accessory Muscle Use, Crackles, Decreased Breath Sounds (left base), Other (intubated) Cardiovascular: No JVD, Irregularly Irregular Gastrointestinal: soft, distended Neurologic/Psychiatric: No Alert; Other (intubated and sedated) Skin: Normal Color, Warm/Dry Lymphatic: No Adenopathy Assessment/Plan Assessment/Plan Assessment/Plan S/P Ex lap with partial gastric resection S/P Respiratory Arrest Severe Gastric Distention Ileus Maintain blood pressure- on pressors abdomen is distended but feel this is due to ileus NPO Possible extubation today NG decompression not in place advance and may need egd to be placed if not able to get in stomach. Supervisory-Addendum Brief Verification & Attestation Participated in pt care: history, MDM, physical Personally performed: exam, history, MDM, supervision of care Care discussed with: Medical Student Procedures: n/a Results interpretation: Verified all documentation Verification and Attestation of Medical Student E/M Service A medical student performed and documented this service in my presence. I reviewed and verified all information documented by the medical student and made modifications to such information, when appropriate. I personally performed the physical exam and medical decision making. Crow Davis, Dec 28, 2022,18:39 NEMESIO HODGSON Dec 28, 2022 06:44 CROW DAVIS DO Dec 28, 2022 18:33
--- NOTE | 2022-12-28 07:50 | Physical Therapy Progress Note ---
Therapy Progress Note Patient currently sedated and intubated. PT will initiate evaluation when patient is able to actively participate with skilled therapy. TOMMY WHITT PT Dec 28, 2022 07:50
--- NOTE | 2022-12-28 09:28 | Tele-ICU Progress Note ---
Subjective Date Seen by a Provider: Dec 28, 2022 Time Seen by a Provider: 09:27 Subjective/Events-last exam (Tele-ICU Physician , Progress Note ) Service provided via interactive audio and video telecommunications E-CARE system to a patient admitted to ICU bed in [facility]. Patient is seen today due to persistent need of ICU care Available chart/ vitals / labs / Images reviewed Video assessment done using teleICU camera, rest of exam as per RN Discussed with RN Events overnight : Afebrile hemodynamically stable Respiratory - 50% I/O = pos Drips: LR 10 cardizem 5 Pressors- - on levo 0.04 and vaso 0.03 VENT SETTINGS and ABG reviewed CANDIDATE for SBTreviewed possible contraindications including Cardiovascular Stability /Sedation Score / FI02/PEEP / ABG / CXR/ secretions Sedation, discussed with RN, RASS -2 on propofol 30 fentanyl 50 Hospital course: (12/21) 67yr old male admitted s/p Ex. Lap partial gastric resection(gastric perf). Intubated (12/22) Extubated. (12/26) pt hypoxic on bipap-Intubated, arrested after intubation w/ ROSC, CTH - WNL , CT abd- high-grade small bowel obstruction. 12/27- on levo 0.04 and vaso 0.03, Fio2 50 % , RASS -2 on propofol 30 fentanyl 50 , cardizem 5 12/28- fio2 40 % , on levo 0.04 and vaso 0.03, Fio2 50 % , RASS -2 on propofol 30 fentanyl 50 , cardizem 5 A/P Acute resp failure , hypoxic ( extubated post op 12/22 --> re-intubated on 12/26 -AC 16 500 40% +5 - + secretions , on nebs -CANDIDATE for SBT if follows commands off sedation Card arrest 12/25 with ROSC 5 min ( secondary to resp failure? ) =CTH - WNL = RASS -2 on propofol 30 fentanyl 50 - try to wean off and reassess Shock - multifactorial - on levo and vaso Gastric perforation, had parital [id number] --CT 12/25 - high-grade small bowel obstruction. - NG in place - LIS - as per sx Possivle PNA with patchy airspace opacity on CT ch - sputum 12/26-rare GNR - on zosyn Chronic a fib with RVR ( s/p dig, metoprolol prn -cardizem gtt -xarelro on hold - as pr Sx and cards to resume ( Lovenox full dose - npo with LIS NG ) - cards follow Multiple right rib fractures. - post arrest 's CPR , no PTX CAD -EF 490 % Pulm htn with PSAP in 50's - monitor for VO COPD -using oxygen at night, - CT with Severe emphysematous change and bullous disease Multiple Lung infection in past -Hx of pulmonary aspergillous 2018 S/p right lung decortication on January 28, 2018 resulted in hydropneumothorax and marked emphysema and had prolonged chest tube placement. ETON abuse - not recently as per report AAA< s/p with stent in place Nutrition - NPO with SBO - follow Electrolites replacement Accuchecks Lines : R IJ 12/26 , art line , (Central Line Necessity Reviewed) Meier: + OG: Nutrition: npo Analgesia: Anxiety/ delirium VTE Prophylaxis: blake 40 Stress Ulcer Prophylaxis: ppi Plans in collaboration with bedside consultants and IM MDs. Discussed with RN to reach out if any questions or concerns Case and care daily discussed on multidisciplinary rounds ( RN, PharmD, Cloth Pattern Maker , Respiratory Therapy, police worker ) 31 minutes of critical care time was devoted to this patient today, required to treat and/or prevent further deterioration of critical care condition ( as above ) . I am remotely monitoring this patient from another state. I am unable to do the bedside exam, and history/physical and pertinent information is taken from other notes in the computer and bedside staff. Sepsis Event Evaluation Height, Weight, BMI Height: 6'4.00" Weight: 154lbs. 2.0oz. 69.871406ow; 22.98 BMI Method:Stated Exam Exam Patient acknowledged, consented, and participated in this virtual visit which was conducted using real time audio/video Vital Signs Date Time Temp Pulse Resp B/P (MAP) Pulse Ox O2 Delivery O2 Flow Rate FiO2 12/28/22 08:06 36.8 12/28/22 07:30 108 12/28/22 07:00 106 17 102/57 (72) 93 Mechanical Ventilator 40.00 12/28/22 06:16 93 17 94 40 12/28/22 06:00 93 17 100/61 (73) 94 Mechanical Ventilator 40.00 12/28/22 05:34 92 105/54 12/28/22 05:08 96 107/54 12/28/22 05:00 103 16 110/68 (86) 94 Mechanical Ventilator 40.00 12/28/22 04:09 40 12/28/22 04:00 99 12 105/66 (81) 93 12/28/22 03:55 93 Mechanical Ventilator 40 12/28/22 03:50 37.0 98 18 99/63 (75) 93 Mechanical Ventilator 40.00 12/28/22 03:00 98 18 99/63 (76) 94 12/28/22 02:46 85 16 94 40 12/28/22 02:16 97 116/55 12/28/22 02:00 97 17 101/62 (75) 95 Mechanical Ventilator 40.00 116/55 (75) 12/28/22 01:00 96 12/28/22 01:00 86 17 101/60 (73) 93 Mechanical Ventilator 40.00 12/28/22 00:54 81 104/51 12/28/22 00:00 90 18 98/64 (81) 93 Mechanical Ventilator 40.00 12/28/22 00:00 40 12/27/22 23:00 36.8 84 18 105/60 (75) 93 Mechanical Ventilator 40.00 112/54 (73) 12/27/22 23:00 94 Mechanical Ventilator 40 12/27/22 22:03 86 19 93 40 12/27/22 22:00 89 18 96/55 (71) 92 Mechanical Ventilator 40.00 12/27/22 21:44 85 132/55 12/27/22 21:00 89 19 109/63 (79) 94 Mechanical Ventilator 40.00 12/27/22 20:54 78 129/54 12/27/22 20:03 76 110/54 12/27/22 20:00 40 12/27/22 20:00 76 18 90/57 (72) 95 Mechanical Ventilator 40.00 12/27/22 19:57 79 109/52 12/27/22 19:47 36.2 12/27/22 19:30 93 Mechanical Ventilator 40 12/27/22 19:00 79 18 95/66 (76) 93 Mechanical Ventilator 40.00 109/52 (71) 12/27/22 19:00 73 12/27/22 18:30 80 18 93 40 12/27/22 18:03 36.59635 73 19 112/50 93 Mechanical Ventilator 16.00 12/27/22 18:03 73 112/50 12/27/22 17:00 80 19 104/65 (78) 93 Mechanical Ventilator 40.00 12/27/22 16:00 99 Mechanical Ventilator 70 12/27/22 16:00 76 17 110/62 (78) 93 Mechanical Ventilator 40.00 12/27/22 15:58 36.1 12/27/22 15:58 76 123/51 12/27/22 15:35 Mechanical Ventilator 40.00 12/27/22 15:00 71 22 112/66 (81) 100 Mechanical Ventilator 35.00 12/27/22 14:30 69 20 99 35 12/27/22 14:00 69 19 101/64 (76) 100 Mechanical Ventilator 35.00 12/27/22 13:00 70 18 105/65 (78) 100 Mechanical Ventilator 55.00 12/27/22 13:00 70 12/27/22 12:47 36.8 12/27/22 12:45 70 103/61 12/27/22 12:00 99 Mechanical Ventilator 70 12/27/22 12:00 70 22 101/63 (76) 100 Mechanical Ventilator 55.00 12/27/22 11:46 69 22 91/62 (72) 100 Mechanical Ventilator 55.00 12/27/22 11:13 70 103/58 12/27/22 11:00 69 22 91/62 (72) 100 Mechanical Ventilator 55.00 12/27/22 10:00 84 25 105/79 (88) 100 Mechanical Ventilator 55.00 I & O 12/28/22 07:00 Intake Total 3061 ml Output Total 955 ml Balance 2106 ml Height & Weight Height: 6'4.00" Weight: 154lbs. 2.0oz. 69.198511gh; 22.98 BMI Method:Stated General Appearance: Chronically ill, Other (intubated) HEENT: PERRL/EOMI Respiratory: No Accessory Muscle Use, Crackles, Decreased Breath Sounds (left base), Other (intubated) Cardiovascular: No Murmur, Irregularly Irregular Capillary Refill: Less Than 3 Seconds Peripheral Pulses: 2+ Dorsalis Pedis (R), 2+ Left Dors-Pedis (L), 2+ Radial Pulses (R), 2+ Radial Pulses (L) Gastrointestinal: distended (possibly more than yesterday, but soft), other (incision is not erythematous, swollen, or exuding pus) Neurologic/Psychiatric: Other (intubated and sedated) Skin: Normal Color, Warm/Dry Results Lab Laboratory Tests 12/27/22 03:55 12/28/22 03:28 Assessment/Plan Assessment/Plan 1 ALEXIS MARSH MD Dec 28, 2022 09:28
[2022-12-28] MEDS: PANTOPRAZOLE INJECTION 40 MG VIAL IV SCH ×2 (09:35→20:54)
[2022-12-28 10:05] VITALS: BP 105/57
--- NOTE | 2022-12-28 10:15 | Cardiology Progress Note ---
Subjective Date Seen by Provider: Dec 28, 2022 Time Seen by Provider: 10:13 Subjective/Events-last exam Patient was seen at bedside, sedated and intubated. Events from the weekend reviewed Objective-Cardiology Exam Last Set of Vital Signs Vital Signs 12/28/22 12/28/22 12/28/22 12/28/22 07:00 08:06 09:08 10:05 Temp 36.8 Pulse 97 Resp 16 B/P (MAP) 110/67 Pulse Ox 94 O2 Delivery Mechanical Ventilator O2 Flow Rate 40.00 FiO2 40 I&O Intake and Output 12/27/22 23:59 Intake Total 3310 ml Output Total 1430 ml Balance 1880 ml Intake Oral 0 ml IV Total 3310 ml Output Urine Total 930 ml Gastric Drainage Total 500 ml General: Other (Sedated and intubated) HEENT: Atraumatic Neck: Supple, No JVD Lungs: Other (decreased air movement) Heart: Normal S1, Normal S2, Other (tachcyardic, irregular) Abdomen: Other (hypoactive bowel sounds, incision c/d/i) Extremities: No Edema Skin: No Rashes, No Significant Lesion Neuro: Other (Sedated and intubated) Psych/Mental Status: Other (Sedated and intubated) Results Lab Laboratory Tests 12/28/22 03:28 A/P-Cardiology Admission Diagnosis Acute abdomen Acute respiratory failure Coronary artery disease Permanent atrial fibrillation Assessment/Plan Acute respiratory failure, ventilator dependent Patient had extensive pulmonary history with severe COPD and recurrent respiratory failure Had multiple hospitalization in February and July 2022 Managed by critical care team Status post cardiac arrest, PEA after intubation probably secondary to intubation and sedation and respiratory failure Has been stable. Continue to monitor Status post acute abdomen, gastric perforation, status post exploratory laparotomy done on December 21, 2022 Chronic permanent atrial fibrillation, borderline tachycardic, maintained on Cardizem drip Maintained on Cardizem History of ablation in April [address] Godfrey, had multiple cardiac arrest and complex hospitalization in October 2017 Continue to titrate Cardizem drip Coronary artery disease, history of stenting using 3.020 mm Promus stent to the right coronary artery done in March 2012. Stress test done on November 01, 2019 showing Baseline atrial fibrillation, decreased uptake involving the mid to apical inferior wall with no revers ibility, ejection fraction 40 percent probably due to tachycardia. Patient had been having more chest pain recently, was scheduled for [facility] on December 23, 2022 as outpatient. Will postpone at this time. COPD, using oxygen at night, had a complex hospitalization with Legionella pneumonia and CMV, respiratory failure, multiple cardiac arrest in October 2017. loculated pneumonia underwent right lung decortication on January 28, 2018 resulted in hydropneumothorax and marked emphysema and had prolonged chest tube placement. History of congestive heart failure, chronic left ventricular systolic dysfunction. 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 Abdominal aortic aneurysm, had a stent placed by Dr. Hogue done in June 2021. Hypertension, continue to monitor. Hyperlipidemia, continue to monitor lipids DARBY Healy BASHAR J MD Dec 28, 2022 10:15
--- NOTE | 2022-12-28 10:49 | Diagnostic Imaging Report ---
INDICATION: Respiratory failure. COMPARISON: 12/27/2022. FINDINGS: Single frontal radiographic view of the chest was obtained and demonstrates indwelling endotracheal tube with tip below the clavicular heads and above the saleem. Gastric tube is again identified. Tip terminates at the GE junction. Right internal jugular central venous catheter is also seen with tip within the [id number] SVC. Cardiac silhouette and pulmonary vasculature are within normal limits. Lungs show background probable COPD changes, but are otherwise clear. There is no large effusion or pneumothorax. IMPRESSION: 1. Lines and tubes as above. 2. No new acute cardiopulmonary process. Dictated by: Dictated on workstation # [id number]
--- NOTE | 2022-12-28 10:57 | Progress Note ---
RUDDY COPE MD, RESIDENT 12/28/22 1057: Subjective HPI/CC On Admission Date Seen by Provider: Dec 28, 2022 Time Seen by Provider: 07:45 Subjective/Events-last exam Patient intubated and sedated. Does appear to be comfortable at bedside. No concerns per nurse overnight. Objective Exam Vital Signs Vital Signs Date Time Temp Pulse Resp B/P (MAP) Pulse Ox O2 Delivery O2 Flow Rate FiO2 12/28/22 10:05 97 16 94 40 12/28/22 10:00 112/75 (87) Mechanical Ventilator 40.00 12/28/22 08:06 36.8 Capillary Refill : Less Than 3 Seconds General Appearance: No Apparent Distress HEENT: Normal ENT Inspection, Other (Endotracheal tube and NG tube in place) Neck: Full Range of Motion, Non Tender, Supple Respiratory: Chest Non Tender, No Accessory Muscle Use, No Respiratory Distress, Rhonci Cardiovascular: Regular Rate, Rhythm, No Edema, No Murmur Gastrointestinal: Non Tender, Soft, Abnormal Bowel Sounds (Hypoactive), Distended (Less distended than prior evaluation), Other (Midline scar and delbert from prior surgery) Extremity: No Pedal Edema Skin: Normal Color, Warm/Dry Results/Procedures Lab Laboratory Tests 12/28/22 03:28 Patient resulted labs reviewed. Assessment/Plan Assessment and Plan Assess & Plan/Chief Complaint 67-year-old male presenting with abdominal pain status post exploratory laparotomy. Did require intubation due to worsening respiratory status on 12/26. Did have to perform CPR prior to achieving ROSC. Was also noted to be hypotensive requiring initiation of pressors. Hypotension thought to be secondary to intubation. Patient otherwise looking stable this morning. Chronic resp failure, post-code - Intubated post code. Continue ventilator - MAT protocol - CT chest from 12/26 notable for severe emphysematous change and bullous disease with patchy airspace opacity which may be due to pneumonia or edema. - Continue Zosyn 4.5 gm IV q8hrs for now however leukocytosis is improving this morning. Shock, mixed - Continue pressors- vasopression and levophed. Wean as tolerated Atrial fibrillation - Good rate control. Continue diltiazem drip 5 mg/hr -Cardiology following, appreciate recommendations SBO -OG tube switched to NG yesterday. Will get repeat x-ray to evaluate if needs to be advanced -NPO -Surgery following, appreciate recommendations Gastric perforation s/p partial gastrectomy -CT abdomen from 12/26 notable for marked distention of the stomach and proximal small bowel concerning for high-grade small bowel obstruction. Similar prior pneumoperitoneum -Surgery following, appreciate recommendations Alcoholism - WA protocol Hypertension -Holding home medications due to hypotensive episodes COPD -On 4 L oxygen at baseline -Currently intubated, will restart inhalers once extubated STAR KUMARI DO 12/29/22 0450: Subjective Subjective/Events-last exam Patient remains intubated 500/16//40 Remains sedated SBT later today Objective Exam General Appearance: No Apparent Distress, WD/WN, Chronically ill Respiratory: Lungs Clear, Normal Breath Sounds Cardiovascular: Regular Rate, Rhythm Assessment/Plan Assessment and Plan Assess & Plan/Chief Complaint Vent management appreciated Monitor closely I personally performed the gaytan portions of the visit, discussed case with resident and concur with resident documentation of history, physical exam, assessment and treatment plan unless otherwise noted. RUDDY COPE MD, RESIDENT Dec 28, 2022 10:57 STAR KUMARI DO Dec 29, 2022 04:50
--- NOTE | 2022-12-28 11:27 | Diagnostic Imaging Report ---
ABDOMEN, FLAT UPRIGHT/DECUB. INDICATION: NG tube placement. COMPARISON: Chest radiograph performed concurrently. TECHNIQUE: AP view of the abdomen. FINDINGS: Enteric tube has tip terminating in the lower chest, likely in the distal esophagus at the GE junction. Multiple air-filled and dilated loops of small bowel are again noted. The colon is also air filled but not significantly dilated. Status post endovascular repair of infrarenal abdominal aortic aneurysm. Visible lungs are clear. IMPRESSION: 1. The enteric tube remains in the distal esophagus with tip near the GE junction. 2. Air-filled and dilated loops of bowel suggest an ileus versus partial small bowel obstruction. Dictated by: Dictated on workstation # [id number]
[2022-12-28 12:25] VITALS: BP 142/64
[2022-12-28] MEDS: ENOXAPARIN 40 MG/0.4 ML SYRINGE SC SCH (13:12)
[2022-12-28 14:04] LABS: ABG BASE EXCESS 8.6 MMOL/L (-2.5-2.5); ABG OXYGEN SATURATION 99 % (94-100); ABG PCO2 46 MMHG (35-45); ABG PH 7.47 (7.37-7.43); ABG PO2 95 MMHG (79-93); ABG TCO2 34.9 MMOL/L (21.0-31.0)
[2022-12-28 14:08] LABS: INSPIRED O2 40%; VENTILATOR YES
[2022-12-28 15:04] VITALS: BP 94/62
[2022-12-28] MEDS ORDERED: RT-Ipratropium/Albuterol NEB 3 ML VIAL INH ONE (15:15)
[2022-12-28] MEDS: fentaNYL DRIP PRE-MIX 250 ML IV SCH (15:15)
[2022-12-28] MEDS: morphine INJ 4 MG/ML 1 ML (VIAL/SYRINGE) IVP PRN ×3 (15:22→23:24)
--- NOTE | 2022-12-28 16:33 | Diagnostic Imaging Report ---
INDICATION: NG tube placement. EXAMINATION: KUB, 4:11 p.m. FINDINGS: There is an NG tube that appears to enter the stomach. Postoperative changes from endograft repair of the abdominal aorta. There is gaseous distention of the GI tract that most likely represents an ileus. IMPRESSION: Distended bowel loops most likely representing an ileus, but distal small bowel obstruction cannot be excluded. Dictated by: Dictated on workstation # [id number]
[2022-12-28 21:21] VITALS: BP 106/65
[2022-12-29] MEDS: PIPERACILLIN/Tazobactam 4.5 GM in NS (IVPB) 100 ML 100 ML IV SCH ×3 (01:48→18:19)
[2022-12-29 02:12] VITALS: BP 105/65
[2022-12-29] MEDS: meTOprolol INJECTION 5 MG/5 ML VIAL IV PRN ×2 (02:48→19:49)
[2022-12-29] MEDS: dilTIAZem DRIP PRE-MIX 125 ML IV SCH (02:48)
[2022-12-29 02:51] LABS: ABG BASE EXCESS 6.6 MMOL/L (-2.5-2.5); ABG OXYGEN SATURATION 92 % (94-100); ABG PCO2 47 MMHG (35-45); ABG PH 7.44 (7.37-7.43); ABG PO2 60 MMHG (79-93); ABG TCO2 33.3 MMOL/L (21.0-31.0)
[2022-12-29 02:52] LABS: INSPIRED O2 45%; VENTILATOR NO
[2022-12-29 02:54] LABS: HEMOGLOBIN 10.2 g/dL (13.3-17.7)
[2022-12-29 02:56] LABS: MEAN PLATELET VOLUME 10.6 fL (9.0-12.2); WHITE BLOOD COUNT 12.8 10^3/uL (4.3-11.0)
[2022-12-29 03:03] LABS: POTASSIUM 3.6 MMOL/L (3.6-5.0)
[2022-12-29 03:04] LABS: CALCIUM 7.9 MG/DL (8.5-10.1)
[2022-12-29] MEDS: POTASSIUM CHLORIDE 20 MEQ TABLET PO SCH (03:06)
[2022-12-29] MEDS: NOREPINEPHRINE 8 MG/250 ML 250 ML IV SCH (03:06)
[2022-12-29] MEDS: POTASSIUM CL 10MEQ/50ML IVPB 50 ML IV SCH ×4 (03:06→05:36)
[2022-12-29 03:08] LABS: CREATININE SERUM 0.76 MG/DL (0.60-1.30)
[2022-12-29 03:11] LABS: MAGNESIUM 1.8 MG/DL (1.6-2.4)
[2022-12-29] MEDS: MAGNESIUM 1 GM/100 ML IVPB 100 ML IV SCH ×3 (03:13→03:25)
[2022-12-29] MEDS ORDERED: POTASSIUM CL 10MEQ/50ML IVPB 200 ML IV ONE (03:16)
[2022-12-29] MEDS ORDERED: MAGNESIUM 1 GM/100 ML IVPB 200 ML IV ONE (03:16)
[2022-12-29] MEDS: morphine INJ 4 MG/ML 1 ML (VIAL/SYRINGE) IVP PRN ×6 (03:29→19:49)
--- NOTE | 2022-12-29 07:06 | Progress Note - Surgery ---
NEMESIO HODGSON 12/29/22 0705: Subjective Date Seen by a Provider: Dec 29, 2022 Time Seen by a Provider: 06:45 Subjective/Events-last exam Pt is extubated and on 8L high flow NC and saturating at 95%. NG tube is in stomach. Pt is weak and laying comfortably. 12hr urine output is 1.6mL/kg/hr Review of Systems General: No Chills, No Night Sweats HEENT: No Head Aches, No Visual Changes Pulmonary: Cough; No Pleuritic Chest Pain Cardiovascular: No: Chest Pain, Palpitations Gastrointestinal: Abdominal Pain (RUQ); No: Nausea, Vomiting Genitourinary: No Dysuria, No Hematuria Musculoskeletal: No: neck pain, shoulder pain Neurological: No: Weakness, Numbness Objective Exam Vital Signs Date Time Temp Pulse Resp B/P (MAP) Pulse Ox O2 Delivery O2 Flow Rate FiO2 12/29/22 06:00 81 25 95 High Flow N/C 8.00 12/29/22 05:54 High Flow N/C 8.00 12/29/22 05:00 92 16 93 NIV Bilevel 45.00 12/29/22 04:00 89 16 92 NIV Bilevel 45.00 12/29/22 03:00 92 NIV Bilevel 45 12/29/22 03:00 93 15 92 NIV Bilevel 45.00 12/29/22 02:52 37.0 112 12/29/22 02:48 112 144/62 12/29/22 02:12 105 18 95 65.00 12/29/22 02:00 98 24 93 NIV Bilevel 45.00 12/29/22 01:00 99 12/29/22 01:00 91 17 92 NIV Bilevel 45.00 12/29/22 00:00 100 18 94 NIV Bilevel 45.00 12/28/22 23:20 36.9 NIV Bilevel 45.00 12/28/22 23:20 92 124/60 12/28/22 23:10 97 NIV Bilevel 55 12/28/22 23:00 102 19 98 NIV Bilevel 55.00 12/28/22 22:04 NIV Bilevel 55.00 12/28/22 22:00 96 17 129/58 (81) 100 NIV Bilevel 65.00 12/28/22 21:23 NIV Bilevel 65.00 12/28/22 21:21 105 18 93 65.00 12/28/22 21:00 109 20 93 High Flow N/C 8.00 12/28/22 20:00 105 18 106/65 (79) 99 High Flow N/C 8.00 12/28/22 19:38 99 129/59 12/28/22 19:25 98 High Flow N/C 8.00 12/28/22 19:00 115 12/28/22 19:00 37.4 98 20 110/75 (87) 97 High Flow N/C 8.00 141/61 (87) 12/28/22 18:00 130 23 108/62 (77) 92 High Flow N/C 8.00 12/28/22 18:00 37.0 12/28/22 17:00 113 25 104/65 (78) 89 High Flow N/C 8.00 12/28/22 16:45 118 145/57 12/28/22 16:36 High Flow N/C 6.00 12/28/22 16:25 118 139/56 12/28/22 16:00 92 High Flow N/C 6.00 12/28/22 16:00 116 22 114/69 (84) 92 NIV Bilevel 65.00 12/28/22 15:04 112 23 97 65.00 12/28/22 15:01 130 12/28/22 15:00 24 127/75 (92) 98 NIV Bilevel 100.00 12/28/22 14:50 NIV Bilevel 100.00 12/28/22 14:00 109 23 116/104 (108) 91 Mechanical Ventilator 40.00 12/28/22 13:00 100 22 121/73 (89) 92 Mechanical Ventilator 40.00 12/28/22 12:25 105 22 94 40 12/28/22 12:25 99 127/59 12/28/22 12:16 103 12/28/22 12:12 40 12/28/22 12:00 94 Mechanical Ventilator 40 12/28/22 12:00 104 16 108/71 (83) 94 Mechanical Ventilator 40.00 12/28/22 11:51 98 103/50 12/28/22 11:51 101 97/68 12/28/22 11:00 93 14 97/68 (78) 92 Mechanical Ventilator 40.00 12/28/22 10:05 97 16 94 40 11/13/23 10:00 95 18 112/75 (87) 95 Mechanical Ventilator 40.00 12/28/22 09:08 96 110/67 12/28/22 09:00 96 15 110/67 (81) 94 Mechanical Ventilator 40.00 12/28/22 08:12 40 12/28/22 08:06 36.8 12/28/22 08:00 93 Mechanical Ventilator 40 12/28/22 08:00 105 16 98/69 (79) 93 Mechanical Ventilator 40.00 12/28/22 07:30 108 I & O 12/29/22 06:59 Intake Total 926 ml Output Total 2075 ml Balance -1149 ml Capillary Refill : Less Than 3 Seconds General Appearance: No Apparent Distress, WD/WN, Chronically ill, Thin HEENT: PERRL/EOMI, Moist Mucous Membranes Neck: Normal Inspection Respiratory: Lungs Clear, Normal Breath Sounds Cardiovascular: No Edema, Irregularly Irregular Peripheral Pulses: 2+ Dorsalis Pedis (R), 2+ Left Dors-Pedis (L), 2+ Radial Pulses (R), 2+ Radial Pulses (L) Gastrointestinal: soft, distended (decreasing) Extremity: No Pedal Edema Neurologic/Psychiatric: Alert Skin: Normal Color, Warm/Dry Lymphatic: No Adenopathy Results Lab Laboratory Tests 12/28/22 13:50: Arterial Blood pH 7.47H, Arterial Blood Partial Pressure CO2 46H, Arterial Blood Partial Pressure O2 95H, Arterial Blood HCO3 34H, Arterial Blood Total CO2 34.9H , Arterial Blood Oxygen Saturation 99, Arterial Blood Base Excess 8.6H, Blood Gas Ventilator Setting YES, Blood Gas Inspired Oxygen 40% 12/28/22 14:32: Glucometer 89 12/28/22 18:30: Glucometer 98 12/28/22 23:19: Glucometer 82 12/29/22 02:45: White Blood Count 12.8H, Red Blood Count 2.95L, Hemoglobin 10.2L, Hematocrit 30L , Mean Corpuscular Volume 102H, Mean Corpuscular Hemoglobin 35H, Mean Corpuscular Hemoglobin Concent 34, Red Cell Distribution Width 14.0, Platelet Count 129L, Mean Platelet Volume 10.6, Percent Immature Platelet Fraction 7.2, Arterial Blood pH 7.44H, Arterial Blood Partial Pressure CO2 47H, Arterial Blood Partial Pressure O2 60L, Arterial Blood HCO3 32H, Arterial Blood Total CO2 33.3H , Arterial Blood Oxygen Saturation 92L, Arterial Blood Base Excess 6.6H, Blood Gas Ventilator Setting NO, Blood Gas Inspired Oxygen 45%, Sodium Level 134L, Potassium Level 3.6, Chloride Level 98, Carbon Dioxide Level 28, Anion Gap 8, Blood Urea Nitrogen 10, Creatinine 0.76, Estimat Glomerular Filtration Rate 99, BUN/Creatinine Ratio 13, Glucose Level 75, Calcium Level 7.9L, Magnesium Level 1.8 Microbiology 12/26/22 Gram Stain - Final, Resulted 12/26/22 Sputum Culture - Preliminary, Resulted Gram Negative Tony Assessment/Plan Assessment/Plan Assessment/Plan S/P Ex lap with partial gastric resection S/P Respiratory Arrest Gastric Distention Ileus Monitor blood pressure- finished pressors at 0300 abdomen is distended but feel this is due to ileus, less distended than yesterday NPO NG decompression in place in the stomach Incentive spirometer CROW DAVIS DO 12/29/221814: Subjective Subjective/Events-last exam Off pressors. Ng tube in place. NPO. Had small amount of flatus. Pain controlled. Breathing still difficult but working on it. Denies n/v fever sweats chills chest pain. Objective Exam General Appearance: No Apparent Distress, Chronically ill HEENT: PERRL/EOMI, Moist Mucous Membranes Neck: Normal Inspection, Non Tender Respiratory: Chest Non Tender, No Accessory Muscle Use, No Respiratory Distress Cardiovascular: No JVD, Irregularly Irregular Gastrointestinal: soft, distended (decreasing) Extremity: Non Tender, No Calf Tenderness Neurologic/Psychiatric: Alert, Oriented x3 Skin: Normal Color, Warm/Dry Lymphatic: No Adenopathy Assessment/Plan Assessment/Plan Assessment/Plan S/P Ex lap with partial gastric resection S/P Respiratory Arrest Gastric Distention Ileus Monitor blood pressure- finished pressors at 0300 abdomen is distended but feel this is due to ileus, less distended than yesterday NPO NG decompression in place in the stomach Incentive spirometer On Zosyn wbc decreasing Supervisory-Addendum Brief Verification & Attestation Participated in pt care: history, MDM, physical Personally performed: exam, history, MDM, supervision of care Care discussed with: Medical Student Procedures: n/a Results interpretation: Verified all documentation Verification and Attestation of Medical Student E/M Service A medical student performed and documented this service in my presence. I reviewed and verified all information documented by the medical student and made modifications to such information, when appropriate. I personally performed the physical exam and medical decision making. Crow Davis, Dec 29, 2022,18:15 NEMESIO HODGSON Dec 29, 2022 07:05 CROW DAVIS DO Dec 29, 2022 18:15
--- NOTE | 2022-12-29 08:24 | Cardiology Progress Note ---
Subjective Date Seen by Provider: Dec 29, 2022 Time Seen by Provider: 08:22 Subjective/Events-last exam Patient is extubated, laying down in bed, lethargic. No new complain Objective-Cardiology Exam Last Set of Vital Signs Vital Signs 12/29/22 12/29/22 12/29/22 12/29/22 12/29/22 02:48 06:00 07:00 08:00 08:02 Temp 37.1 Pulse 90 Resp 25 B/P (MAP) 144/62 Pulse Ox 94 O2 Delivery NIV Bilevel O2 Flow Rate 8.00 I&O Intake and Output 12/28/22 23:59 Intake Total 1927 ml Output Total 1090 ml Balance 837 ml Intake Oral 0 ml IV Total 1927 ml Output Urine Total 1090 ml Gastric Drainage Total 0 ml General: Alert, Cooperative HEENT: Atraumatic Neck: Supple, No JVD Lungs: Other (decreased air movement) Heart: Normal S1, Normal S2, Other (tachcyardic, irregular) Abdomen: Soft, Other (Diminished bowel sounds and distended abdomen) Extremities: No Edema Skin: No Rashes, No Significant Lesion Neuro: Normal Speech Psych/Mental Status: Mood NL Results Lab Laboratory Tests 12/29/22 02:45 A/P-Cardiology Admission Diagnosis Acute abdomen Acute respiratory failure Coronary artery disease Permanent atrial fibrillation Assessment/Plan Status post acute respiratory failure, ventilator dependent Patient had extensive pulmonary history with severe COPD and recurrent respiratory failure Had multiple hospitalization in February and July 2022 Managed by critical care team Status post cardiac arrest, PEA after intubation probably secondary to intubation and sedation and respiratory failure Has been stable. Continue to monitor Status post acute abdomen, gastric perforation, status post exploratory laparotomy done on December 21, 2022 Distended abdomen with questionable obstruction versus ileus. Managed by surgical team. Continue to monitor Chronic permanent atrial fibrillation, borderline tachycardic, maintained on Cardizem drip Maintained on Cardizem History of ablation in April [address] Godfrey, had multiple cardiac arrest and complex hospitalization in October 2017 Continue to titrate Cardizem drip Coronary artery disease, history of stenting using 3.020 mm Promus stent to the right coronary artery done in March 2012. Stress test done on November 01, 2019 showing Baseline atrial fibrillation, decreased uptake involving the mid to apical inferior wall with no reversibility, ejection fraction 40 percent probably due to tachycardia. Patient had been having more chest pain recently, was scheduled for [facility] on December 23, 2022 as outpatient. Will postpone at this time. COPD, using oxygen at night, had a complex hospitalization with Legionella pneumonia and CMV, respiratory failure, multiple cardiac arrest in October 2017. loculated pneumonia underwent right lung decortication on January 28, 2018 resulted in hydropneumothorax and marked emphysema and had prolonged chest tube placement. History of congestive heart failure, chronic left ventricular systolic dysfunction. 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 Abdominal aortic aneurysm, had a stent placed by Dr. Hogue done in June 2021. Hypertension, continue to monitor. Hyperlipidemia, continue to monitor lipids DARBY Healy BASHAR J MD Dec 29, 2022 08:24
[2022-12-29] MEDS: LACTATED RINGERS 1,000 ML 1,000 ML IV SCH ×3 (08:45→18:47)
[2022-12-29] MEDS: PANTOPRAZOLE INJECTION 40 MG VIAL IV SCH ×2 (09:51→19:49)
--- NOTE | 2022-12-29 09:58 | Progress Note ---
RUDDY COPE MD, RESIDENT 12/29/22 0958: Subjective HPI/CC On Admission Date Seen by Provider: Dec 29, 2022 Time Seen by Provider: 07:45 67 yo male admitted after coming to ER with abdominal pain and having CT that showed large free air in abdomen. He underwent exploratory laparoscopy and found to have gastric perforation and partial gastrectomy was done last night. This morning he is still intubated, is alert but unable to give history due to ventilator status. Subjective/Events-last exam Patient is doing a little bit better today. He was successfully extubated yesterday and they are currently working on weaning down his oxygen. He is noting quite significant amounts of mucus that he is coughing up and is having some rib pain due to the CPR that needed to be performed over the weekend. Difficult to converse with patient given mucus buildup but he otherwise denied any concerns today. Review of Systems Pulmonary: Cough Cardiovascular: No: Chest Pain, Palpitations, Edema Gastrointestinal: No: Nausea, Vomiting, Diarrhea, Constipation Genitourinary: No Dysuria Objective Exam Vital Signs Vital Signs Date Time Temp Pulse Resp B/P (MAP) Pulse Ox O2 Delivery O2 Flow Rate FiO2 12/29/22 09:00 93 19 95 High Flow N/C 8.00 12/29/22 08:02 37.1 12/29/22 03:00 45 Capillary Refill : Less Than 3 Seconds General Appearance: No Apparent Distress HEENT: Normal ENT Inspection Neck: Full Range of Motion, Non Tender, Supple Respiratory: Chest Non Tender, No Accessory Muscle Use, No Respiratory Distress, Rhonci Cardiovascular: No Edema, No Murmur, Tachycardia Gastrointestinal: Non Tender, Soft, Other (Tympanitic bowel sounds) Extremity: No Pedal Edema Neurologic/Psychiatric: Alert, Oriented x3 Skin: Normal Color, Warm/Dry Results/Procedures Lab Laboratory Tests 12/29/22 02:45 Patient resulted labs reviewed. Assessment/Plan Assessment and Plan Assess & Plan/Chief Complaint 67-year-old male presenting with abdominal pain status post exploratory laparotomy. Did require intubation due to worsening respiratory status on 12/26. Did have to perform CPR prior to achieving ROSC. Was also noted to be hypotensive requiring initiation of pressors. Hypotension thought to be secondary to intubation. Patient otherwise looking stable this morning. Chronic resp failure, post-code -Successfully extubated on 12/28 - MAT protocol - CT chest from 12/26 notable for severe emphysematous change and bullous disease with patchy airspace opacity which may be due to pneumonia or edema. - Sputum culture growing rare gram-negative rods - Continue Zosyn 4.5 gm IV q8hrs Shock, mixed -Patient off of pressors this morning. Continue to monitor Rib pain -Secondary to chest compressions -Has morphine 2 mg as needed on board and has been using routinely -Encourage limiting use as able due to patient's bowel status Atrial fibrillation - Good rate control. Continue diltiazem drip 5 mg/hr - Cardiology following, appreciate recommendations SBO -NG tube still in place. Will defer to surgery -NPO -Surgery following, appreciate recommendations Gastric perforation s/p partial gastrectomy -CT abdomen from 12/26 notable for marked distention of the stomach and proximal small bowel concerning for high-grade small bowel obstruction. Similar prior pneumoperitoneum -Abdominal exam reassuring this morning, however noting tympanitic bowel sounds -Surgery following, appreciate recommendations Alcoholism - CIWA protocol Hypertension -Holding home medications due to hypotensive episodes COPD -On 4 L oxygen at baseline STAR KUMARI DO 12/29/221950: Subjective Subjective/Events-last exam Extubated Doing better Has laryngitis from ET PT OT ordered Objective Exam General Appearance: No Apparent Distress, WD/WN, Chronically ill Respiratory: Decreased Breath Sounds, Rhonci Cardiovascular: Tachycardia Assessment/Plan Assessment and Plan Assess & Plan/Chief Complaint PT OT IS Monitor closely RUDDY COPE MD, RESIDENT Dec 29, 2022 09:58 STAR KUMARI DO Dec 29, 2022 19:51
--- NOTE | 2022-12-29 10:07 | Physical Therapy Evaluation ---
PT Evaluation-General Medical Diagnosis Admission Date Dec 21, 2022 at 22:20 Medical Diagnosis: gastric perforation Onset Date: Dec 21, 2022 Therapy Diagnosis Therapy Diagnosis: generalized weakness/impaired mobility Height/Weight Height (Feet): 6 Height (Inches): 4.00 Weight (Pounds): 154 Weight (Ounces): 2.0 Precautions Precautions/Isolations: Fall Prevention, Standard Precautions, Pressure Ulcer Referral Physician: Susan Reason for Referral: Evaluation/Treatment Medical History Pertinent Medical History: Atrial Fib, Arthritis, CAD, COPD, HTN, Smoking Current History s/p exploratory lap. Reviewed History: Yes Prior Prior Level of Function SCALE: Activities may be completed with or without assistive devices. 5-Pabtxqepnn-vuutywc completes the activity by him/herself with no assistance from a helper. 5-Set-up or Clean-up Assistance-helper sets up or cleans up; patient completes activity. [place] assists only prior to or following the activity. 4-Supervision or Touching Assistance-helper provides verbal cues and/or touching/steadying and/or contact guard assistance as patient completes activity. Assistance may be provided throughout the activity or intermittently. 3-Partial/Moderate Assistance-helper does LESS THAN HALF the effort. [place] lifts, holds or supports trunk or limbs, but provides less than half the effort. 2-Substantial/Maximal Assistance-helper does MORE THAN HALF the effort. [place] lifts or holds trunk or limbs and provides more than half the effort. 8-Pdnnyydho-klhuza does ALL the effort. Patient does none of the effort to complete the activity. Or, the assistance of 2 or more helpers is required for the patient to complete the activity. If activity was not attempted, code reason: 7-Patient Refused. 9-Not Applicable-not attempted and the patient did not perform the activity before the current illness, exacerbation or injury. 10-Not Attempted due to Environmental Limitations-(lack of equipment, weather restraints, etc.). 88-Not Attempted due to Medical Conditions or Safety Concerns. Bed Mobility: 6 Transfers (B,C,W/C): 6 Gait: 6 Stairs: 6 Indoor Mobility (Ambulation): Independent Stairs: Independent Prior Devices Use: None PT Evaluation-Current Subjective Patient agrees to PT. Objective Patient Orientation: Normal For Age Attachments: NG Tube, Oxygen, Meier Catheter, IV ROM/Strength ROM Lower Extremities bilateral LE WFL Strength Lower Extremities 3/5 grossly bilateral LE all planes Integumentary/Posture Integumentary refer to nursing notes Bladder Incontinence: Meier Cath Posture WFL Neuromuscular (Tone, Coordination, Reflexes) grossly intact Sensory Vision: Functional Hearing: Functional Transfers Roll Left to Right (QC): 2 Sit to Lying (QC): 1 Lying to Sitting/Side of Bed(Q: 1 Sit to Stand (QC): 88 Gait Does the Patient Walk?: No and Walking Goal IS indicated Balance Sitting Static: Fair Sitting Dynamic: Fair Assessment/Needs Patient sat EOB SBA to maintain. Patient will benefit from skilled PT to a ddress functional strength and mobility to improve current LOF. Patient very debilitated and would benefit from ARU when deemed medically stable. Rehab Potential: Fair PT [employer]ural [employer] Goals [employer] Goals PT [employer] Goals Time Frame: Jan 30, 2023 Roll Left & Right (QC): 6 Sit to Lying (QC): 6 Lying-Sitting on Side/Bed(QC): 6 Sit to Stand (QC): 6 Chair/Pto-ss-Ljbvs Xfer(QC): 6 Toilet Transfer (QC): 6 Walk 10 feet (QC): 6 Walk 50ft with 2 Turns (QC): 6 Walk 150 ft (QC): 6 PT Plan Problem List Problem List: Activity Tolerance, Functional Strength, Safety, Balance, Gait, Transfer, Bed Mobility Treatment/Plan Treatment Plan: Continue Plan of Care Treatment Plan: Bed Mobility, Education, Functional Activity Renée, Functional Strength, Gait, Safety, Therapeutic Exercise, Transfers Treatment Duration: Jan 30, 2023 Frequency: 5 times per week Estimated Hrs Per Day: .25 hour per day Patient and/or Family Agrees t: Yes Time Time In: 936 Time Out: 948 DATE: Dec 29, 2022 Total Billed Treatment Time: 12 Total Billed Treatment 1 visit [facility] 12 min TOMMY WHITT PT Dec 29, 2022 10:07
[2022-12-29] MEDS: RT-Ipratropium/Albuterol NEB 3 ML VIAL INH SCH ×2 (10:15→21:01)
--- NOTE | 2022-12-29 11:25 | Tele-ICU Progress Note ---
Subjective Date Seen by a Provider: Dec 29, 2022 Time Seen by a Provider: 08:45 Subjective/Events-last exam (Tele-ICU Physician , Progress Note ) Service provided via interactive audio and video telecommunications E-CARE system to a patient admitted to ICU bed in [facility]. Patient is seen today due to persistent need of ICU care Available chart/ vitals / labs / Images reviewed Video assessment done using teleICU camera, rest of exam as per RN 67 yr old male admitted with abdominal pain and found to free air in abdomen. underwent exploratory lap and found to have gastric perforation. had partial gastrectomy done. Extubated on 12/22/22. on n/c. RN reports chest congestion. CXR ordered still awating dewayne done 12/24/22. sice yesterday pt had more chest congestion and increased WOB. Now requiring 10-12l o2 via n/c. he has underlying copd with hx of complex pneumonias complicated requiring decortication and prolonged chest tube insertion. 12/25/22 He remained on bipap but fio2 devreased to 45%. Hr fluctuating between 105-130's CXR showing left basilar infiltrate. Rt side infiltrate improved. no fever. 12/29/22.He was reintubated on 10/16/2022 because of respiratory distress and hypoxia. He had a massive intestinal ileus for which an NG tube was inserted and put on a suction. He is a subsequently extubated on 12/28/2022. Currently he is on 8 L of nasal cannula and oxygenating well without any distress. As per [employer] his abdomen is distention is somewhat improved and less tense. He had a CT of the abdomen and pelvis which did not show any evidence of recurrent perforation but does have a intestinal ileus. NG tube currently on a low intermittent suction. impression. 1. gastric perforation s/p ex lap and partial gastrectomy. 2. Afib with RVR on cardizem drip. 3. previous hx of aspergillosis s/p prolonged hospitalisation at . 4. Alcohol abuse history. 5. Acute Hypoxic respiratory failure due to pneumonia and copd 6. s/p cardio respiratory arrest requring cpr with ROSC. 7. Rib fractures with pain due to cpr Recomemdations. 1. Continue oxygen with N/C 2. Cardizem per cardiology. 3. IV antibiotics 4. DVT prophylaxis 5. Bronchiolar therapy 6. iv lasix prn 7.NGT to LIS 8. WILL REPEAT KUB AND CXR ON 12/30/22 Coordination of care with primary care physician and bedside consultants. I am remotely monitoring this patient from Tele icu station in [place]. I am unable to do the bedside exam, and history/physical and pertinent information is taken from other notes in the computer and bedside staff. Certain portions of this document may have been dictated utilizing voice recognition technology such as [employer]. Inherent to this technology, typographi liam and grammatical errors may exist. As much as I am diligent to identify and correct to these mistakes, some errors may remain in the document. Critical care time devoted to this patient today is approximately is--25 minutes. Sepsis Event Evaluation Height, Weight, BMI Height: 6'4.00" Weight: 154lbs. 2.0oz. [id number]; 22.37 BMI Method:Stated Exam Exam Patient acknowledged, consented, and participated in this virtual visit which was conducted using real time audio/video Vital Signs Date Time Temp Pulse Resp B/P (MAP) Pulse Ox O2 Delivery O2 Flow Rate FiO2 12/29/22 10:21 98 High Flow N/C 6.00 12/29/22 10:15 96 High Flow N/C 8.00 12/29/22 09:00 93 19 95 High Flow N/C 8.00 12/29/22 08:02 37.1 12/29/22 08:00 112 90 High Flow N/C 8.00 12/29/22 08:00 94 NIV Bilevel 8.00 12/29/22 07:00 90 15 95 High Flow N/C 8.00 12/29/22 07:00 90 12/29/22 06:00 81 25 95 High Flow N/C 8.00 12/29/22 05:54 High Flow N/C 8.00 12/29/22 05:00 92 16 93 NIV Bilevel 45.00 12/29/22 04:00 89 16 92 NIV Bilevel 45.00 12/29/22 03:00 92 NIV Bilevel 45 12/29/22 03:00 93 15 92 NIV Bilevel 45.00 12/29/22 02:52 37.0 112 12/29/22 02:48 112 144/62 12/29/22 02:12 105 18 95 65.00 12/29/22 02:00 98 24 93 NIV Bilevel 45.00 12/29/22 01:00 99 12/29/22 01:00 91 17 92 NIV Bilevel 45.00 12/29/22 00:00 100 18 94 NIV Bilevel 45.00 12/28/22 23:20 36.9 NIV Bilevel 45.00 12/28/22 23:20 92 124/60 12/28/22 23:10 97 NIV Bilevel 55 12/28/22 23:00 102 19 98 NIV Bilevel 55.00 12/28/22 22:04 NIV Bilevel 55.00 12/28/22 22:00 96 17 129/58 (81) 100 NIV Bilevel 65.00 12/28/22 21:23 NIV Bilevel 65.00 12/28/22 21:21 105 18 93 65.00 12/28/22 21:00 109 20 93 High Flow N/C 8.00 12/28/22 20:00 105 18 106/65 (79) 99 High Flow N/C 8.00 12/28/22 19:38 99 129/59 12/28/22 19:25 98 High Flow N/C 8.00 12/28/22 19:00 115 12/28/22 19:00 37.4 98 20 110/75 (87) 97 High Flow N/C 8.00 141/61 (87) 12/28/22 18:00 130 23 108/62 (77) 92 High Flow N/C 8.00 12/28/22 18:00 37.0 12/28/22 17:00 113 25 104/65 (78) 89 High Flow N/C 8.00 12/28/22 16:45 118 145/57 12/28/22 16:36 High Flow N/C 6.00 12/28/22 16:25 118 139/56 12/28/22 16:00 92 High Flow N/C 6.00 12/28/22 16:00 116 22 114/69 (84) 92 NIV Bilevel 65.00 12/28/22 15:04 112 23 97 65.00 12/28/22 15:01 130 12/28/22 15:00 24 127/75 (92) 98 NIV Bilevel 100.00 12/28/22 14:50 NIV Bilevel 100.00 12/28/22 14:00 109 23 116/104 (108) 91 Mechanical Ventilator 40.00 12/28/22 13:00 100 22 121/73 (89) 92 Mechanical Ventilator 40.00 12/28/22 12:25 105 22 94 40 12/28/22 12:25 99 127/59 12/28/22 12:16 103 12/28/22 12:12 40 12/28/22 12:00 94 Mechanical Ventilator 40 12/28/22 12:00 104 16 108/71 (83) 94 Mechanical Ventilator 40.00 12/28/22 11:51 98 103/50 12/28/22 11:51 101 97/68 I & O 12/29/22 06:59 Intake Total 926 ml Output Total 2075 ml Balance -1149 ml Height & Weight Height: 6'4.00" Weight: 154lbs. 2.0oz. 69.707965mi; 22.37 BMI Method:Stated General Appearance: No Apparent Distress HEENT: Normal ENT Inspection Neck: Full Range of Motion, Non Tender, Supple Respiratory: Chest Non Tender, No Accessory Muscle Use, No Respiratory Distress, Rhonci Cardiovascular: No Edema, No Murmur, Tachycardia Capillary Refill: Less Than 3 Seconds Peripheral Pulses: 2+ Dorsalis Pedis (R), 2+ Left Dors-Pedis (L), 2+ Radial Pulses (R), 2+ Radial Pulses (L) Gastrointestinal: soft, distended (decreasing) Extremity: No Pedal Edema Neurologic/Psychiatric: Alert, Oriented x3 Skin: Normal Color, Warm/Dry Lymphatic: No Adenopathy Results Lab Laboratory Tests 12/28/22 03:28 12/29/22 02:45 Assessment/Plan Assessment/Plan ABOVE Critical Care: Critically Ill Patient Time spent with patient (mins): 25 ALIX BENTLEY MD Dec 29, 2022 11:25
--- NOTE | 2022-12-29 11:41 | Occupational Therapy Eval ---
OT Evaluation-General/PLF Medical Diagnosis Admission Date Dec 21, 2022 at 22:20 Medical Diagnosis: gastric perforation Onset Date: Dec 21, 2022 Therapy Diagnosis Therapy Diagnosis: weakness Height/Weight Height (Feet): 6 Height (Inches): 4.00 Weight (Pounds): 154 Weight (Ounces): 2.0 Precautions Precautions/Isolations: Fall Prevention, Standard Precautions, Pressure Ulcer Referral Physician: Susan Referral Reason: Activity Tolerance, Self Care, Evaluation/Treatment, Strengthening/ROM Medical History Pertinent Medical History: Atrial Fib, Arthritis, CAD, COPD, HTN, Smoking Additional Medical History 67 yo male admitted after coming to ER with abdominal pain and having CT that showed large free air in abdomen. He underwent exploratory laparoscopy and found to have gastric perforation and partial gastrectomy was done Current History Recently extubated, whisper voice Reviewed History: Yes Social History Home: Single Level ADL-Prior Level of Function SCALE: Activities may be completed with or without assistive devices. 6-Fkamxgoecx-cklotuq completes the activity by him/herself with no assistance from a helper. 5-Set-up or Clean-up Assistance-helper sets up or cleans up; patient completes activity. [place] assists only prior to or following the activity. 4-Supervision or Touching Assistance-helper provides verbal cues and/or touching/steadying and/or contact guard assistance as patient completes activity. Assistance may be provided throughout the activity or intermittently. 3-Partial/Moderate Assistance-helper does LESS THAN HALF the effort. [place] lifts, holds or supports trunk or limbs, but provides less than half the effort. 2-Substantial/Maximal Assistance-helper does MORE THAN HALF the effort. [place] lifts or holds trunk or limbs and provides more than half the effort. 7-Rjmsxmfgf-sdsujm does ALL the effort. Patient does none of the effort to complete the activity. Or, the assistance of 2 or more helpers is required for the patient to complete the activity. If activity was not attempted, code reason: 7-Patient Refused. 9-Not Applicable-not attempted and the patient did not perform the activity before the current illness, exacerbation or injury. 10-Not Attempted due to Environmental Limitations-(lack of equipment, weather restraints, etc.). 88-Not Attempted due to Medical Conditions or Safety Concerns. Self Care: Independent Functional Cognition: Independent Drive Self: Yes OT Current Status Subjective Uses gestures, mouths and hand signals d/t low voice volume. Mental Status/Objective Patient Orientation: Person, Place, Situation Attachments: Meier Catheter, IV, NG Tube, Oxygen, SCD's, Telemetry Current Upper Extremity ROM BUE ROM WFLS Upper Extremity Coordination Delayed Upper Extremity Strength +3/5 Fair sitting balance required [id number] assist to sit EOB w/ feet on floor and use of bedrail ADL-Treatment Eating (QC): 88 Oral Hygiene (QC): 88 Shower/Bathe Self (QC): 88 Upper Body Dressing (QC): 2 Lower Body Dressing (QC): 1 On/Off Footwear (QC): 1 Toileting Hygiene (QC): 1 Education OT Patient Education: Correct positioning, Modified ADL techniques, Progress toward Goal/Update tx plan, Purpose of tx/functional activities, Reviewed precautions, Rehab process, Safety issues Teaching Recipient: Patient Teaching Methods: Demonstration, Discussion Response to Teaching: Verbalize Understanding, Reinforcement Needed OT Interactive Media Project Manager Goals Interactive Media Project Manager Goals Eating (QC): 6 Oral Hygiene (QC): 5 Toileting Hygiene (QC): 4 Shower/Bathe Self (QC): 4 Upper Body Dressing (QC): 4 Lower Body Dressing (QC): 4 On/Off Footwear (QC): 4 1=Demonstrate adherence to instructed precautions during ADL tasks. 2=Patient will verbalize/demonstrate understanding of assistive devices/modifications for ADL. 3=Patient will improve strength/tolerance for activity to enable patient to per form ADL's. OT Education/Plan Problem List/Assessment Assessment: Decreased Activ Tolerance, Decreased UE Strength, Dependent Transfers, Impaired Bed Mobility, Impaired Cognition, Impaired Coordination, Impaired Funct Balance, Impaired Self-Care Skills Discharge Recommendations Plan/Recommendations: Continue POC Therapy Discharge Recommendati: Post Acute OT Treatment Plan/Plan of Care Treatment,Training & Education: Yes Patient would benefit from OT for education, treatment and training to promote i ndependence in ADL's, mobility, safety and/or upper extremity function for ADL's. Plan of Care: ADL Retraining, Functional Mobility, Group Exercise/Act as Ind, UE Funct Exercise/Act Treatment Duration: Jan 08, 2023 Frequency: 3 times per week (3-5 times per week) Estimated Hrs Per Day: .25 hour per day Agreement: Yes Rehab Potential: Fair Time Start Time: 09:50 Stop Time: 10:05 DATE: Dec 29, 2022 Total Time Billed (hr/min): 15 Billed Treatment Time [facility] SARAH CARTAGENA OT Dec 29, 2022 11:41
[2022-12-29] MEDS: ENOXAPARIN 40 MG/0.4 ML SYRINGE SC SCH (12:53)
[2022-12-29] MEDS ORDERED: DEXTROSE 50% 50 ML (IMS) SYR IV NR ×2 (14:30)
[2022-12-29 21:06] VITALS: BP 133/104
[2022-12-29] MEDS ORDERED: DEXTROSE 50% 50 ML (IMS) SYR ONE (23:11)
[2022-12-29] MEDS ORDERED: DEXTROSE 50% 50 ML (IMS) SYR IV ONE (23:15)
[2022-12-29] MEDS: D5 LR 1,000 ML IV SOLN 1,000 ML IV SCH (23:23)
[2022-12-30] MEDS ORDERED: NS (IVPB) 100 ML 0 ML ONE (01:46)
[2022-12-30] MEDS: meTOprolol INJECTION 5 MG/5 ML VIAL IV PRN ×3 (01:47→16:30)
[2022-12-30] MEDS: PIPERACILLIN/Tazobactam 4.5 GM in NS (IVPB) 100 ML 100 ML IV SCH (01:47)
[2022-12-30] MEDS: NOREPINEPHRINE 8 MG/250 ML 250 ML IV SCH ×2 (02:02→23:42)
[2022-12-30] MEDS: dilTIAZem DRIP PRE-MIX 125 ML IV SCH (03:13)
[2022-12-30 04:24] LABS: HEMATOCRIT 34 % (40-54); HEMOGLOBIN 11.1 g/dL (13.3-17.7); MEAN CORPUSCULAR HEMOGLOBIN 34 pg (25-34); MEAN CORPUSCULAR HGB CONC 33 g/dL (32-36); MEAN CORPUSCULAR VOLUME 104 fL (80-99); MEAN PLATELET VOLUME 10.7 fL (9.0-12.2); PLATELET COUNT 153 10^3/uL (130-400); WHITE BLOOD COUNT 15.7 10^3/uL (4.3-11.0)
[2022-12-30 04:42] LABS: CALCIUM 8.6 MG/DL (8.5-10.1); CREATININE SERUM 0.71 MG/DL (0.60-1.30); MAGNESIUM 1.8 MG/DL (1.6-2.4); POTASSIUM 3.4 MMOL/L (3.6-5.0)
[2022-12-30] MEDS: MAGNESIUM 1 GM/100 ML IVPB 100 ML IV SCH ×2 (04:50→05:05)
[2022-12-30] MEDS: POTASSIUM CHLORIDE 20 MEQ TABLET PO SCH (04:50)
[2022-12-30] MEDS: POTASSIUM CL 10MEQ/50ML IVPB 50 ML IV SCH ×4 (04:50→07:33)
[2022-12-30] MEDS ORDERED: POTASSIUM CL 10MEQ/50ML IVPB 200 ML IV ONE (04:56)
[2022-12-30] MEDS ORDERED: MAGNESIUM 1 GM/100 ML IVPB 200 ML IV ONE (04:56)
--- NOTE | 2022-12-30 08:01 | Progress Note - Surgery ---
NEMESIO HODGSON 12/30/22 0801: Subjective Date Seen by a Provider: Dec 30, 2022 Time Seen by a Provider: 07:10 Subjective/Events-last exam Pt seen laying down and c/o right sided rib pain. Blood pressure maintained without use of pressors. O2 is being titrated down as tolerated with high flow nasal canula at 6L today. Surgical incisions are clean, dry, and some erythema around the borders. Still having abdominal distension, but is about the same as yesterday. Pt is having flatus, but no BM. Pt is nauseous and has not tried water yet. He is coughing of mucus that is green in color. Urine output is 0.95ml/kg/hr in last 12 hrs Review of Systems General: No Chills, No Night Sweats HEENT: No Head Aches, No Visual Changes Pulmonary: No Dyspnea, No Cough Cardiovascular: Chest Pain (right sided rib pain (due to CPR)); No: Palpitations, Edema Gastrointestinal: Nausea; No: Vomiting, Abdominal Pain Genitourinary: No Dysuria, No Hematuria Musculoskeletal: No: neck pain, shoulder pain Neurological: No: Weakness, Numbness Objective Exam Vital Signs Date Time Temp Pulse Resp B/P (MAP) Pulse Ox O2 Delivery O2 Flow Rate FiO2 12/30/22 07:45 37.6 12/30/22 07:00 37.0 12/30/22 06:00 105 27 128/69 (79) 97 High Flow N/C 6.00 12/30/22 05:00 94 26 137/85 (109) 97 High Flow N/C 6.00 12/30/22 04:00 37.3 105 21 130/79 (96) 96 High Flow N/C 6.00 12/30/22 03:30 97 High Flow N/C 6.00 12/30/22 03:13 98 120/77 12/30/22 03:00 101 20 120/77 (91) 90 High Flow N/C 6.00 Arterial Line 12/30/22 02:55 93 32 94 12/30/22 02:00 87 14 133/78 (101) 93 High Flow N/C 6.00 12/30/22 01:45 125 12/30/22 01:43 High Flow N/C 6.00 12/30/22 01:00 99 18 134/85 (101) 98 NIV Bilevel 50.00 Arterial Line 12/30/22 01:00 105 12/30/22 00:00 114 16 118/74 (89) 99 NIV Bilevel 50.00 Arterial Line 12/29/22 23:19 36.9 99 19 118/67 (84) 98 NIV Bilevel 50.00 12/29/22 23:00 95 NIV Bilevel 50 12/29/22 22:20 93 16 124/82 (93) 98 NIV Bilevel 50.00 12/29/22 22:00 99 25 132/78 (93) 96 NIV Bilevel 50.00 12/29/22 21:40 92 17 122/92 (106) 97 NIV Bilevel 50.00 12/29/22 21:30 NIV Bilevel 50.00 12/29/22 21:20 99 17 119/75 (88) 96 NIV Bilevel 45.00 12/29/22 21:12 NIV Bilevel 45.00 12/29/22 21:06 105 24 91 50.00 12/29/22 21:04 95 High Flow N/C 6.00 12/29/22 21:00 104 20 133/104 (126) 95 High Flow N/C 6.00 12/29/22 20:00 88 28 124/108 (113) 92 High Flow N/C 6.00 12/29/22 19:35 95 High Flow N/C 6.00 12/29/22 19:30 37.1 112 25 131/72 (91) 94 High Flow N/C 6.00 12/29/22 19:00 101 12/29/22 18:00 135 21 111/81 (91) 93 High Flow N/C 6.00 12/29/22 17:00 99 28 118/63 (81) 91 High Flow N/C 6.00 12/29/22 16:00 94 11 108/67 (81) 95 High Flow N/C 6.00 12/29/22 16:00 95 NIV Bilevel 6.00 12/29/22 15:00 102 18 112/69 (83) 94 High Flow N/C 6.00 12/29/22 13:00 106 124/80 (95) 92 High Flow N/C 6.00 12/29/22 13:00 97 12/29/22 12:00 90 17 94 High Flow N/C 6.00 12/29/22 12:00 93 NIV Bilevel 6.00 12/29/22 11:00 112 19 94 High Flow N/C 6.00 12/29/22 10:21 98 High Flow N/C 6.00 12/29/22 10:15 96 High Flow N/C 8.00 12/29/22 10:00 98 24 96 High Flow N/C 8.00 12/29/22 09:00 93 19 95 High Flow N/C 8.00 12/29/22 08:02 37.1 12/29/22 08:00 112 90 High Flow N/C 8.00 12/29/22 08:00 94 NIV Bilevel 8.00 I & O 12/30/22 07:00 Intake Total 625 ml Output Total 3100 ml Balance -2475 ml Capillary Refill : Less Than 3 Seconds General Appearance: No Apparent Distress, WD/WN, Chronically ill HEENT: PERRL/EOMI, Moist Mucous Membranes Neck: Normal Inspection, Non Tender Respiratory: Decreased Breath Sounds, Rhonci Cardiovascular: No Edema, No Murmur, Irregularly Irregular, Tachycardia Peripheral Pulses: 2+ Dorsalis Pedis (R), 2+ Left Dors-Pedis (L), 2+ Radial Pulses (R), 2+ Radial Pulses (L) Gastrointestinal: non tender, soft, distended (decreasing) Extremity: Non Tender, No Calf Tenderness Neurologic/Psychiatric: Alert, Oriented x3 Skin: Normal Color, Warm/Dry Lymphatic: No Adenopathy Results Lab Laboratory Tests 12/29/22 14:00: Glucometer 54*L 12/29/22 15:26: Glucometer 113H 12/29/22 18:12: Glucometer 66L 12/29/22 23:10: Glucometer 52*L 12/29/22 23:54: Glucometer 89 12/30/22 04:05: White Blood Count 15.7H, Red Blood Count 3.26L, Hemoglobin 11.1L, Hematocrit 34L , Mean Corpuscular Volume 104H, Mean Corpuscular Hemoglobin 34, Mean Corpuscular Hemoglobin Concent 33, Red Cell Distribution Width 14.3, Platelet Count 153, Mean Platelet Volume 10.7, Sodium Level 141, Potassium Level 3.4L, Chloride Level 103, Carbon Dioxide Level 29, Anion Gap 9, Blood Urea Nitrogen 7, Creatinine 0.71, Estimat Glomerular Filtration Rate 101, BUN/Creatinine Ratio 10, Glucose Level 80, Calcium Level 8.6, Magnesium Level 1.8 12/30/22 04:08: Glucometer 81 Microbiology 12/26/22 Gram Stain - Final, Resulted 12/26/22 Sputum Culture - Preliminary, Resulted Klebsiella pneumoniae Assessment/Plan Assessment/Plan Assessment/Plan S/P Ex lap with partial gastric resection S/P Respiratory Arrest Gastric Distention Ileus Monitor blood pressure- stable today, no pressors used abdomen is distended but feel this is due to ileus, less distended than yesterday Titrate O2 down as tolerated- Currently at 6L High flow nasal canula NG decompression in place in the stomach Incentive spirometer On Zosyn wbc increased today to 15.7 BRYON DAVIS DO 12/30/22 2001: Subjective Subjective/Events-last exam Patient with some right sided rib pain. Abdomen feeling better. Has some flatus. Still with shortness of air. ABdomen less distended. Denies using is working on breathing some. Denies fever sweats chills sor chest pain at this time. Family at bedside. Objective Exam General Appearance: No Apparent Distress, Chronically ill HEENT: PERRL/EOMI Neck: Normal Inspection, Non Tender Respiratory: Chest Non Tender, No Accessory Muscle Use, Rhonci (b/l) Cardiovascular: Irregularly Irregular, Tachycardia Gastrointestinal: non tender, soft, distended (less) Extremity: Non Tender, No Calf Tenderness Neurologic/Psychiatric: Alert, Oriented x3 Skin: Normal Color, Warm/Dry Lymphatic: No Adenopathy Assessment/Plan Assessment/Plan Assessment/Plan S/P Ex lap with partial gastric resection S/P Respiratory Arrest Gastric Distention Leukocytosis ? respiratory Ileus Monitor blood pressure- stable today, no pressors abdomen is distended but feel this is due to ileus, less distended than yesterday Titrate O2 down as tolerated- Currently at 6L High flow nasal canula NG decompression in place in the stomach will clamp and trial ice chips, may need to be back on LIWS Incentive spirometer On Zosyn wbc increased today to 15.7, chest x ray in am and changed to meropenem. Supervisory-Addendum Brief Verification & Attestation Participated in pt care: history, MDM, physical Personally performed: exam, history, MDM, supervision of care Care discussed with: Medical Student Procedures: n/a Results interpretation: Verified all documentation Verification and Attestation of Medical Student E/M Service A medical student performed and documented this service in my presence. I reviewed and verified all information documented by the medical student and made modifications to such information, when appropriate. I personally performed the physical exam and medical decision making. Bryon Davis, Dec 30, 2022,20:01 NEMESIO HODGSON Dec 30, 2022 08:01 BRYON DAVIS DO Dec 30, 2022 20:01
[2022-12-30] MEDS: RT-Ipratropium/Albuterol NEB 3 ML VIAL INH SCH ×2 (08:14→20:11)
[2022-12-30] MEDS: PANTOPRAZOLE INJECTION 40 MG VIAL IV SCH ×2 (08:36→20:44)
--- NOTE | 2022-12-30 09:55 | Tele-ICU Progress Note ---
Subjective Date Seen by a Provider: Dec 30, 2022 Time Seen by a Provider: 09:55 Subjective/Events-last exam (Tele-ICU Physician , Progress Note ) Service provided via interactive audio and video telecommunications E-CARE system to a patient admitted to ICU bed in [facility]. Patient is seen today due to persistent need of ICU care Available chart/ vitals / labs / Images reviewed Video assessment done using teleICU camera, rest of exam as per RN Discussed with RN Events overnight : Afebrile hemodynamically stable Respiratory - 50% I/O = pos Drips: LR 10 cardizem 5 Pressors- - OFF Hospital course: (12/21) 67yr old male admitted s/p Ex. Lap partial gastric resection(gastric p erf). Intubated (12/22) Extubated. (12/26) pt hypoxic on bipap-Intubated, arrested after intubation w/ ROSC, CTH - WNL , CT abd- high-grade small bowel obstruction. 12/27- on levo 0.04 and vaso 0.03, Fio2 50 % , RASS -2 on propofol 30 fentanyl 50 , cardizem 5 12/28- fio2 40 % , on levo 0.04 and vaso 0.03, Fio2 50 % , RASS -2 on propofol 30 fentanyl 50 , cardizem 5 12/28- EXTUBATED - to BIPAP 12/29- NC , bipap night , OFF pressors 12/30- BIPAP til 4 am - NC 4 L , AAO, cardizem 5 , NG OFF suction A/P Acute resp failure , hypoxic ( extubated post op 12/22 --> re-intubated on 12/26--->12/28- EXTUBATED - to BIPAP -on NC 4 l now , bipap at night - + secretions , on nebs - IS : doing his best with rib Fr pain Card arrest 12/25 with ROSC 5 min ( secondary to resp failure? ) =recovered well Gastric perforation, had parital [id number] --CT 12/25 - high-grade small bowel obstruction. - NG in place - off suction 12/30 - as per sx Possivle PNA with patchy airspace opacity on CT ch - sputum 12/26-Klebsiella - on zosyn till 12/30 - repeat cxr 12/31 Chronic a fib with RVR ( s/p dig, metoprolol prn -cardizem gtt 5 -xarelro on hold - as pr Sx and cards to resume (? Lovenox full dose - npo ) - cards follow Multiple right rib fractures. - post arrest 's CPR , no PTX - cont pain control , IS CAD -EF 490 % Pulm htn with PSAP in 50's - monitor for VO COPD -using oxygen at night, - CT with Severe emphysematous change and bullous disease - + wheezing - increase nebs frequency - add LABA/ICS - avoid systemic steroids Multiple Lung infection in past -Hx of pulmonary aspergillous 2018 S/p right lung decortication on January 28, 2018 resulted in hydropneumothorax and marked emphysema and had prolonged chest tube placement. ETON abuse - not recently as per report AAA< s/p with stent in place Nutrition - NPO with SBO - follow Electrolites replacement Accuchecks Shock - multifactorial RESOLVED - OFF PRESSORS Lines : R IJ 12/26 , art line - removed 12/29 , (Central Line Necessity Reviewed) Meier: + OG: Nutrition: npo Analgesia: Anxiety/ delirium VTE Prophylaxis: blake 40 Stress Ulcer Prophylaxis: ppi Plans in collaboration with bedside consultants and IM MDs. Discussed with RN to reach out if any questions or concerns Case and care daily discussed on multidisciplinary rounds ( RN, PharmD, Resident Care Supervisor , Respiratory Therapy, pet crematory worker ) 31 minutes of critical care time was devoted to this patient today, required to treat and/or prevent further deterioration of critical care condition ( as above ) . I am remotely monitoring this patient from another state. I am unable to do the bedside exam, and history/physical and pertinent information is taken from other notes in the computer and bedside staff. Sepsis Event Evaluation Height, Weight, BMI Height: 6'4.00" Weight: 154lbs. 2.0oz. 69.198633rm; 22.31 BMI Method:Stated Exam Exam Patient acknowledged, consented, and participated in this virtual visit which was conducted using real time audio/video Vital Signs Date Time Temp Pulse Resp B/P (MAP) Pulse Ox O2 Delivery O2 Flow Rate FiO2 12/30/22 08:14 92 High Flow N/C 4.00 12/30/22 08:00 96 High Flow N/C 4.00 12/30/22 07:45 37.6 12/30/22 07:00 111 12/30/22 07:00 37.0 12/30/22 06:00 105 27 128/69 (79) 97 High Flow N/C 6.00 12/30/22 05:00 94 26 137/85 (109) 97 High Flow N/C 6.00 12/30/22 04:00 37.3 105 21 130/79 (96) 96 High Flow N/C 6.00 12/30/22 03:30 97 High Flow N/C 6.00 12/30/22 03:13 98 120/77 12/30/22 03:00 101 20 120/77 (91) 90 High Flow N/C 6.00 Arterial Line 12/30/22 02:55 93 32 94 12/30/22 02:00 87 14 133/78 (101) 93 High Flow N/C 6.00 12/30/22 01:45 125 12/30/22 01:43 High Flow N/C 6.00 12/30/22 01:00 99 18 134/85 (101) 98 NIV Bilevel 50.00 Arterial Line 12/30/22 01:00 105 12/30/22 00:00 114 16 118/74 (89) 99 NIV Bilevel 50.00 Arterial Line 12/29/22 23:19 36.9 99 19 118/67 (84) 98 NIV Bilevel 50.00 12/29/22 23:00 95 NIV Bilevel 50 12/29/22 22:20 93 16 124/82 (93) 98 NIV Bilevel 50.00 12/29/22 22:00 99 25 132/78 (93) 96 NIV Bilevel 50.00 12/29/22 21:40 92 17 122/92 (106) 97 NIV Bilevel 50.00 12/29/22 21:30 NIV Bilevel 50.00 12/29/22 21:20 99 17 119/75 (88) 96 NIV Bilevel 45.00 12/29/22 21:12 NIV Bilevel 45.00 12/29/22 21:06 105 24 91 50.00 12/29/22 21:04 95 High Flow N/C 6.00 12/29/22 21:00 104 20 133/104 (126) 95 High Flow N/C 6.00 12/29/22 20:00 88 28 124/108 (113) 92 High Flow N/C 6.00 12/29/22 19:35 95 High Flow N/C 6.00 12/29/22 19:30 37.1 112 25 131/72 (91) 94 High Flow N/C 6.00 12/29/22 19:00 101 12/29/22 18:00 135 21 111/81 (91) 93 High Flow N/C 6.00 12/29/22 17:00 99 28 118/63 (81) 91 High Flow N/C 6.00 12/29/22 16:00 94 11 108/67 (81) 95 High Flow N/C 6.00 12/29/22 16:00 95 NIV Bilevel 6.00 12/29/22 15:00 102 18 112/69 (83) 94 High Flow N/C 6.00 12/29/22 13:00 106 124/80 (95) 92 High Flow N/C 6.00 12/29/22 13:00 97 12/29/22 12:00 90 17 94 High Flow N/C 6.00 12/29/22 12:00 93 NIV Bilevel 6.00 12/29/22 11:00 112 19 94 High Flow N/C 6.00 12/29/22 10:21 98 High Flow N/C 6.00 12/29/22 10:15 96 High Flow N/C 8.00 12/29/22 10:00 98 24 96 High Flow N/C 8.00 I & O 12/30/22 07:00 Intake Total 625 ml Output Total 3100 ml Balance -2475 ml Height & Weight Height: 6'4.00" Weight: 154lbs. 2.0oz. 69.855733uq; 22.31 BMI Method:Stated General Appearance: No Apparent Distress, WD/WN, Chronically ill HEENT: PERRL/EOMI, Moist Mucous Membranes Neck: Normal Inspection, Non Tender Respiratory: Decreased Breath Sounds, Rhonci Cardiovascular: No Edema, No Murmur, Irregularly Irregular, Tachycardia Capillary Refill: Less Than 3 Seconds Peripheral Pulses: 2+ Dorsalis Pedis (R), 2+ Left Dors-Pedis (L), 2+ Radial Pulses (R), 2+ Radial Pulses (L) Gastrointestinal: non tender, soft, distended (decreasing) Extremity: Non Tender, No Calf Tenderness Neurologic/Psychiatric: Alert, Oriented x3 Skin: Normal Color, Warm/Dry Lymphatic: No Adenopathy Results Lab Laboratory Tests 12/29/22 02:45 12/30/22 04:05 Assessment/Plan Assessment/Plan 1 ALEXIS MARSH MD Dec 30, 2022 09:55
--- NOTE | 2022-12-30 09:58 | Progress Note ---
RUDDY COPE MD, RESIDENT 12/30/22 0957: Subjective HPI/CC On Admission Date Seen by Provider: Dec 30, 2022 Time Seen by Provider: 07:20 67 yo male admitted after coming to ER with abdominal pain and having CT that showed large free air in abdomen. He underwent exploratory laparoscopy and found to have gastric perforation and partial gastrectomy was done last night. This morning he is still intubated, is alert but unable to give history due to ventilator status. Subjective/Events-last exam Patient doing well at today, is able to converse as the congestion in his chest has cleared up some more. Patient states that he has been working on coughing it up and has been doing incentive spirometry. He is continuing to note right- sided chest and right upper quadrant pain but notes that this is because of pain in his ribs from the chest compressions. He is hoping to get the NG tube out today as he is feeling hungry. Denying any pain in his belly otherwise today. He is hoping to have a bowel movement but has not had one yet, is passing a little bit of gas. Objective Exam Vital Signs Vital Signs Date Time Temp Pulse Resp B/P (MAP) Pulse Ox O2 Delivery O2 Flow Rate FiO2 12/30/22 08:14 92 High Flow N/C 4.00 12/30/22 07:45 37.6 12/30/22 07:00 111 12/30/22 06:00 27 12/29/22 23:00 50 Capillary Refill : Less Than 3 Seconds General Appearance: No Apparent Distress HEENT: PERRL/EOMI, Normal ENT Inspection, Other (NG tube in place, nasal c annula in place) Neck: Full Range of Motion, Normal Inspection Respiratory: Chest Non Tender, Lungs Clear, Normal Breath Sounds, No Accessory Muscle Use, No Respiratory Distress Cardiovascular: Regular Rate, Rhythm, No Edema, No Murmur Gastrointestinal: Normal Bowel Sounds, Non Tender, Soft, Other (Occasional t ympanitic bowel sounds, midline scar and staple from surgery) Extremity: No Pedal Edema Neurologic/Psychiatric: Alert, Oriented x3 Skin: Normal Color, Warm/Dry Results/Procedures Lab Laboratory Tests 12/30/22 04:05 Patient resulted labs reviewed. Assessment/Plan Assessment and Plan Assess & Plan/Chief Complaint 67-year-old male presenting with abdominal pain status post exploratory laparotomy. Did require intubation due to worsening respiratory status on 12/26. Did have to perform CPR prior to achieving ROSC. Was also noted to be hypotensive requiring initiation of pressors. Hypotension thought to be secondary to intubation. Patient otherwise looking stable this morning. Chronic resp failure, post-code - Successfully extubated on 12/28 - MAT protocol - CT chest from 12/26 notable for severe emphysematous change and bullous disease with patchy airspace opacity which may be due to pneumonia or edema. - Sputum culture growing rare gram-negative rods - Discontinued Zosyn as completed 5-day course. Increased leukocytosis this morning however may be reactive. Consider restarting if patient spikes a fever or has other clinical signs of infection Shock, mixed -Continues to do well off of pressors Rib pain - Secondary to chest compressions -Has morphine 2 mg as needed on board and has been using less frequently than yesterday -Encourage limiting use as able due to patient's bowel status Atrial fibrillation - Good rate control. Continue diltiazem drip 5 mg/hr - Cardiology following, appreciate recommendations SBO -NG tube still in place. Will defer to surgery -NPO -PT/OT following, patient will likely need SNF placement after discharge Gastric perforation s/p partial gastrectomy -CT abdomen from 12/26 notable for marked distention of the stomach and proximal small bowel concerning for high-grade small bowel obstruction. Similar prior pneumoperitoneum -Abdominal exam continues to be reassuring this morning, however noting tympanitic bowel sounds -Surgery following, appreciate recommendations Alcoholism - CIWA protocol Hypertension -Holding home medications due to hypotensive episodes COPD -On 4 L oxygen at baseline -Wean oxygen as tolerated is currently on 6 L high flow nasal cannula STAR KUMARI DO 12/30/221948: Subjective Subjective/Events-last exam Patient doing a little bit better PT and OT ordered Less laryngitis Pain is controlled Objective Exam General Appearance: No Apparent Distress, WD/WN, Chronically ill Respiratory: Crackles, Decreased Breath Sounds Cardiovascular: Regular Rate, Rhythm Assessment/Plan Assessment and Plan Assess & Plan/Chief Complaint Supportive care Monitor heart rate Monitor lung function I personally performed the gaytan portions of the visit, discussed case with resident and concur with resident documentation of history, physical exam, assessment and treatment plan unless otherwise noted. RUDDY COPE MD, RESIDENT Dec 30, 2022 09:57 STAR KUMARI DO Dec 30, 2022 19:49
--- NOTE | 2022-12-30 11:42 | Physical Therapy Daily Note ---
PT Daily Note-Current Subjective Patient lying supine in bed upon PT arrival, agreeable to treatment. Pain Section J - Health Conditions 1. Rarely or not at all 2. Occasionally 3. Frequently 4. Almost constantly 8. Unable to answer Pain Effect on Sleep: 2 Pain Interference with Therapy: 3 Pain Interference w/Day-to-Day: 2 Transfers SCALE: Activities may be completed with or without assistive devices. 3-Jrmouzwaaw-bcyaair completes the activity by him/herself with no assistance from a helper. 5-Set-up or Clean-up Assistance-helper sets up or cleans up; patient completes activity. [place] assists only prior to or following the activity. 4-Supervision or Touching Assistance-helper provides verbal cues and/or touching/steadying and/or contact guard assistance as patient completes activity. Assistance may be provided throughout the activity or intermittently. 3-Partial/Moderate Assistance-helper does LESS THAN HALF the effort. [place] lifts, holds or supports trunk or limbs, but provides less than half the effort. 2-Substantial/Maximal Assistance-helper does MORE THAN HALF the effort. [place] lifts or holds trunk or limbs and provides more than half the effort. 8-Infvkswjv-uulefj does ALL the effort. Patient does none of the effort to complete the activity. Or, the assistance of 2 or more helpers is required for the patient to complete the activity. If activity was not attempted, code reason: 7-Patient Refused. 9-Not Applicable-not attempted and the patient did not perform the activity before the current illness, exacerbation or injury. 10-Not Attempted due to Environmental Limitations-(lack of equipment, weather restraints, etc.). 88-Not Attempted due to Medical Conditions or Safety Concerns. Roll Left & Right (QC): 3 Sit to Lying (QC): 3 Lying to Sitting/Side of Bed(Q: 3 Sit to Stand (QC): 3 Chair/Fmw-jf-Leoji Xfer(QC): 3 Gait Training Does the Patient Walk?: Yes Distance: 2' Gait Assistive Device: FWW Assessment Current Status: Fair Progress Patient tolerated treatment much better this date and was able to perform more mobility with safer movement and increased core control. Patient performs all bed mobility and transfers with min/mod A. Patient ambulates 2feet with FWW, with min/mod A and verbal cues for safety, posture and control of FWW. Patient in chair post treatment with all needs met, nursing notified, in the room. PT Front Attendant Goals Nursing Home Goals PT Nursing Home Goals Time Frame: Jan 30, 2023 Roll Left & Right (QC): 6 Sit to Lying (QC): 6 Lying-Sitting on Side/Bed(QC): 6 Sit to Stand (QC): 6 Chair/Cid-vc-Jqogb Xfer(QC): 6 Toilet Transfer (QC): 6 Walk 10 feet (QC): 6 Walk 50ft with 2 Turns (QC): 6 Walk 150 ft (QC): 6 PT Plan Treatment/Plan Treatment Plan: Continue Plan of Care Treatment Plan: Bed Mobility, Education, Functional Activity Renée, Functional Strength, Gait, Safety, Therapeutic Exercise, Transfers Treatment Duration: Jan 30, 2023 Frequency: 5 times per week Estimated Hrs Per Day: .25 hour per day Patient and/or Family Agrees t: Yes Safety Risks/Education Patient Education: Gait Training, Transfer Techniques Teaching Recipient: Patient Teaching Methods: Demonstration, Discussion Response to Teaching: Verbalize Understanding, Return Demonstration Time Time In: 1055 Time Out: 1114 DATE: Dec 30, 2022 Total Billed Treatment Time: 19 Total Billed Treatment Visit, ED GARCIA PT Dec 30, 2022 11:42
--- NOTE | 2022-12-30 11:48 | Occupational Ther Daily Note ---
OT Current Status-Daily Note Subjective Alert and agreeable to participate Pain Numeric Pain Scale: 5-Moderate Pain (ribs) Mental Status/Objective Patient Orientation: Person, Place, Time, Situation Attachments: Meier Catheter, IV, NG Tube, Oxygen, SCD's, Telemetry ADL-Treatment Supine in bed dons right sock from arch to ankle, no attempt for right socks d/t pain and discomfort, lifts BUE on command to wrap gown around arms. Difficulty holding against gravity. Therapy Code Descriptions/Definitions Functional [place] Measure: 0=Not Assessed/NA 4=Minimal Assistance 1=Total Assistance 5=Supervision or Setup 2=Maximal Assistance 6=Modified [place] 3=Moderate Assistance 7=Complete IndependenceSCALE: Activities may be completed with or without assistive devices. 3-Gvtyujbour-lnvsuts completes the activity by him/herself with no assistance from a helper. 5-Set-up or Clean-up Assistance-helper sets up or cleans up; patient completes activity. [place] assists only prior to or following the activity. 4-Supervision or Touching Assistance-helper provides verbal cues and/or touching/steadying and/or contact guard assistance as patient completes activity. Assistance may be provided throughout the activity or intermittently. 3-Partial/Moderate Assistance-helper does LESS THAN HALF the effort. [place] lifts, holds or supports trunk or limbs, but provides less than half the effort. 2-Substantial/Maximal Assistance-helper does MORE THAN HALF the effort. [place] lifts or holds trunk or limbs and provides more than half the effort. 7-Lviltvxhx-dbxrzh does ALL the effort. Patient does none of the effort to complete the activity. Or, the assistance of 2 or more helpers is required for the patient to complete the activity. If activity was not attempted, code reason: 7-Patient Refused. 9-Not Applicable-not attempted and the patient did not perform the activity before the current illness, exacerbation or injury. 10-Not Attempted due to Environmental Limitations-(lack of equipment, weather restraints, etc.). 88-Not Attempted due to Medical Conditions or Safety Concerns. Eating (QC): 88 (NPO, NG ) Oral Hygiene (QC): 5 (sponge swabs only w/ water to cleanse) Upper Body Dressing (QC): 2 Lower Body Dressing (QC): 2 On/Off Footwear: 2 Toileting Hygiene (QC): 3 Toilet Transfer (QC): 3 Other Treatment Unsupported sitting EOB 3 minutes w/o LOB Education OT Patient Education: Correct positioning, Exercise program, Instructions to caregiver, Modified ADL techniques, Progress toward Goal/Update tx plan, Purpose of tx/functional activities, Reviewed precautions, Rehab process, Safety issues, Transfer techniques Teaching Recipient: Patient Teaching Methods: Demonstration, Discussion Response to Teaching: Verbalize Understanding, Reinforcement Needed OT Occupational Therapy Specialist Goals Occupational Therapy Specialist Goals Eating (QC): 6 Oral Hygiene (QC): 5 Toileting Hygiene (QC): 4 Shower/Bathe Self (QC): 4 Upper Body Dressing (QC): 4 Lower Body Dressing (QC): 4 On/Off Footwear (QC): 4 1=Demonstrate adherence to instructed precautions during ADL tasks. 2=Patient will verbalize/demonstrate understanding of assistive devic es/modifications for ADL. 3=Patient will improve strength/tolerance for activity to enable patient to perform ADL's. OT Education/Plan Problem List/Assessment Assessment: Decreased Activ Tolerance, Decreased UE Strength, Impaired Bed Mobility, Impaired Coordination, Impaired Funct Balance Discharge Recommendations Plan/Recommendations: Continue POC Treatment Plan/Plan of Care Treatment,Training & Education: Yes Patient would benefit from OT for education, treatment and training to promote independence in ADL's, mobility, safety and/or upper extremity function for ADL's. Plan of Care: ADL Retraining, Functional Mobility, Group Exercise/Act as Ind, UE Funct Exercise/Act Treatment Duration: Jan 08, 2023 Frequency: 3 times per week (3-5 times per week) Estimated Hrs Per Day: .25 hour per day Agreement: Yes Rehab Potential: Fair Time Start Time: 11:00 Stop Time: 11:15 DATE: Dec 30, 2022 Total Time Billed (hr/min): 15 Billed Treatment Time FA 15 min SARAH CARTAGENA OT Dec 30, 2022 11:47
[2022-12-30] MEDS ORDERED: KETOROLAC INJ 30 MG/ML VIAL IVP NR (12:15)
[2022-12-30] MEDS: RT-Ipratropium/Albuterol NEB 3 ML VIAL INH PRN (12:20)
[2022-12-30 12:21] LABS: ABG OXYGEN SATURATION 95 % (94-100); ABG PCO2 45 MMHG (35-45); ABG PH 7.47 (7.37-7.43); ABG PO2 66 MMHG (79-93); ABG TCO2 34.2 MMOL/L (21.0-31.0); INSPIRED O2 4; VENTILATOR NO
--- NOTE | 2022-12-30 12:58 | Cardiology Progress Note ---
Subjective Date Seen by Provider: Dec 30, 2022 Time Seen by Provider: 08:00 Subjective/Events-last exam Patient was seen at bedside, laying down comfortably Still having generalized weakness Objective-Cardiology Exam Last Set of Vital Signs Vital Signs 12/29/22 23:00 FiO2 50 I&O Intake and Output 12/29/22 23:59 Intake Total 825 ml Output Total 3710 ml Balance -2885 ml Intake Oral 0 ml IV Total 825 ml Output Urine Total 3110 ml Gastric Drainage Total 600 ml General: Alert, Cooperative HEENT: Atraumatic Neck: Supple, No JVD Lungs: Other (decreased air movement) Heart: Normal S1, Normal S2, Other (tachcyardic, irregular) Abdomen: Soft, Other (Diminished bowel sounds and distended abdomen) Extremities: No Edema Skin: No Rashes, No Significant Lesion Neuro: Normal Speech Psych/Mental Status: Mood NL Results Lab Laboratory Tests 12/30/22 04:05 A/P-Cardiology Admission Diagnosis Acute abdomen Acute respiratory failure Coronary artery disease Permanent atrial fibrillation Assessment/Plan Status post acute respiratory failure, ventilator dependent Patient had extensive pulmonary history with severe COPD and recurrent respiratory failure Had multiple hospitalization in February and July 2022 Managed by critical care team Status post cardiac arrest, PEA after intubation probably secondary to intubation and sedation and respiratory failure Has been stable. Continue to monitor Status post acute abdomen, gastric perforation, status post exploratory laparotomy done on December 21, 2022 Distended abdomen with questionable obstruction versus ileus. Managed by surgical team. Continue to monitor Chronic permanent atrial fibrillation, borderline tachycardic, maintained on Cardizem drip Maintained on Cardizem History of ablation in April [address] Godfrey, had multiple cardiac arrest and complex hospitalization in October 2017 Continue to titrate Cardizem drip Coronary artery disease, history of stenting using 3.020 mm Promus stent to the right coronary artery done in March 2012. Stress test done on November 01, 2019 showing Baseline atrial fibrillation, decreased uptake involving the mid to apical inferior wall with no reversibility , ejection fraction 40 percent probably due to tachycardia. Patient had been having more chest pain recently, was scheduled for [facility] on December 23, 2022 as outpatient. Will postpone at this time. COPD, using oxygen at night, had a complex hospitalization with Legionella pneumonia and CMV, respiratory failure, multiple cardiac arrest in October 2017. loculated pneumonia underwent right lung decortication on January 28, 2018 resulted in hydropneumothorax and marked emphysema and had prolonged chest tube placement. History of congestive heart failure, chronic left ventricular systolic dysfunction. 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 Abdominal aortic aneurysm, had a stent placed by Dr. Hogue done in June 2021. Hypertension, continue to monitor. Hyperlipidemia, continue to monitor lipids Niraj, AIDAN PASTOR MD Dec 30, 2022 12:57
[2022-12-30] MEDS: ENOXAPARIN 40 MG/0.4 ML SYRINGE SC SCH (13:15)
[2022-12-30] MEDS: LACTATED RINGERS 1,000 ML 1,000 ML IV SCH (13:59)
[2022-12-30] MEDS: D5 LR 1,000 ML IV SOLN 1,000 ML IV SCH (17:53)
[2022-12-30] MEDS ORDERED: MEROPENEM INJECTION 1,000 MG in NS (IVPB) 100 ML 100 ML IV SCH (20:00)
[2022-12-30] MEDS ORDERED: MEROPENEM 1000 MG IV ONE (20:08)
[2022-12-30] MEDS ORDERED: NS (IVPB) 100 ML 100 ML ONE (20:08)
[2022-12-30 22:17] VITALS: BP 133/104
[2022-12-31] MEDS: MEROPENEM 500 MG/NS 100 ML IVPB IV SCH ×8 (01:32→20:12)
[2022-12-31] MEDS: dilTIAZem DRIP PRE-MIX 125 ML IV SCH ×2 (01:57→13:07)
[2022-12-31 03:52] LABS: HEMATOCRIT 37 % (40-54); HEMOGLOBIN 12.4 g/dL (13.3-17.7); MEAN CORPUSCULAR HEMOGLOBIN 34 pg (25-34); MEAN CORPUSCULAR HGB CONC 33 g/dL (32-36); MEAN CORPUSCULAR VOLUME 103 fL (80-99); MEAN PLATELET VOLUME 10.5 fL (9.0-12.2); PLATELET COUNT 179 10^3/uL (130-400); WHITE BLOOD COUNT 14.1 10^3/uL (4.3-11.0)
[2022-12-31 04:36] LABS: POTASSIUM 3.1 MMOL/L (3.6-5.0)
[2022-12-31 04:37] LABS: CALCIUM 8.7 MG/DL (8.5-10.1)
[2022-12-31 04:41] LABS: CREATININE SERUM 0.73 MG/DL (0.60-1.30)
[2022-12-31 04:44] LABS: MAGNESIUM 1.9 MG/DL (1.6-2.4)
[2022-12-31] MEDS: meTOprolol INJECTION 5 MG/5 ML VIAL IV PRN (04:49)
[2022-12-31] MEDS: POTASSIUM CHLORIDE 20 MEQ TABLET PO SCH (05:08)
[2022-12-31] MEDS: POTASSIUM CL 10MEQ/50ML IVPB 50 ML IV SCH ×7 (05:08→11:54)
[2022-12-31] MEDS: MAGNESIUM 1 GM/100 ML IVPB 100 ML IV SCH ×3 (05:08→06:33)
[2022-12-31] MEDS: RT-Ipratropium/Albuterol NEB 3 ML VIAL INH PRN (07:14)
[2022-12-31 07:15] VITALS: BP 135/85
--- NOTE | 2022-12-31 07:17 | Progress Note - Surgery ---
NEMESIO HODGSON 12/31/22 0717: Subjective Date Seen by a Provider: Dec 31, 2022 Time Seen by a Provider: 07:06 Subjective/Events-last exam Pt is laying in bed and was having a hard time arousing. Per RN, pt woke up at 0430 with hallucinations and was given ativan which helped. HR spiked to 150s in the middle of the night and cardizem was increased which lowered HR. Pt was not having nausea or vomiting last night. RN noticed coccygeal bed ulcer yesterday. Pt is still having flatus. Abdominal distension increased this morning. 12hr Urine output is 0.12ml/kg/hr. Review of Systems General: No Chills, No Night Sweats HEENT: No Head Aches, No Sore Throat Pulmonary: No Dyspnea, No Cough Cardiovascular: No: Chest Pain, Palpitations, Edema Gastrointestinal: Abdominal Pain; No: Nausea, Vomiting Genitourinary: No Dysuria, No Hematuria Musculoskeletal: No: neck pain, shoulder pain Neurological: No: Weakness, Numbness Objective Exam Vital Signs Date Time Temp Pulse Resp B/P (MAP) Pulse Ox O2 Delivery O2 Flow Rate FiO2 12/31/22 06:00 94 35 137/87 (106) 100 NIV Bilevel 50.00 12/31/22 06:00 97 30 137/87 (104) 100 NIV Bilevel 50.00 12/31/22 05:40 92 51 143/96 (100) 92 NIV Bilevel 50.00 12/31/22 05:20 93 30 135/89 (104) 97 NIV Bilevel 50.00 12/31/22 05:00 107 26 143/81 (101) 93 NIV Bilevel 50.00 12/31/22 04:20 125 19 164/82 (104) 96 NIV Bilevel 50.00 12/31/22 04:00 35.7 109 24 140/86 (93) 97 NIV Bilevel 50.00 12/31/22 04:00 108 24 140/86 (104) 99 NIV Bilevel 50.00 12/31/22 04:00 95 High Flow N/C 4.00 12/31/22 03:40 131 23 146/109 (113) 94 NIV Bilevel 50.00 12/31/22 03:30 142 18 95 NIV Bilevel 50.00 12/31/22 03:00 138 20 113/77 (89) 96 NIV Bilevel 50.00 12/31/22 02:07 109 23 97 50.00 12/31/22 02:00 138 27 142/82 (99) 97 NIV Bilevel 50.00 12/31/22 02:00 140 26 142/82 (102) 97 NIV Bilevel 50.00 12/31/22 01:57 120 154/88 12/31/22 01:41 147 35 154/88 (92) 89 NIV Bilevel 50.00 12/31/22 01:40 46/33 (39) 12/31/22 01:20 130 27 151/102 (115) 98 NIV Bilevel 50.00 12/31/22 01:00 35.9 141/90 (97) 12/31/22 01:00 125 24 141/90 (107) 97 NIV Bilevel 50.00 12/31/22 00:05 133 12/31/22 00:00 134 27 152/101 (118) 97 NIV Bilevel 50.00 12/30/22 23:59 96 High Flow N/C 4.00 12/30/22 23:00 108 22 122/86 (98) 100 NIV Bilevel 50.00 12/30/22 22:17 111 27 97 50.00 12/30/22 22:00 126 24 161/96 (122) 94 High Flow N/C 4.00 12/30/22 21:00 110 25 140/86 (104) 95 High Flow N/C 4.00 12/30/22 20:25 96 High Flow N/C 4.00 12/30/22 20:11 97 High Flow N/C 4.00 12/30/22 20:01 36.9 High Flow N/C 4.00 12/30/22 20:00 113 13 147/80 (102) 96 High Flow N/C 4.00 12/30/22 19:40 116 23 141/88 (101) 96 High Flow N/C 4.00 12/30/22 19:30 114 30 97 High Flow N/C 4.00 12/30/22 19:20 129 17 132/96 (105) 97 High Flow N/C 4.00 12/30/22 19:17 98 12/30/22 19:00 102 25 132/80 (89) 98 High Flow N/C 4.00 12/30/22 18:00 111 23 135/81 (99) 96 High Flow N/C 4.00 12/30/22 17:00 96 26 122/92 (102) 95 High Flow N/C 4.00 12/30/22 16:00 36.7 High Flow N/C 6.00 12/30/22 16:00 128 25 121/78 (92) 96 High Flow N/C 4.00 12/30/22 16:00 96 High Flow N/C 4.00 12/30/22 15:00 116 34 100/83 (89) 94 High Flow N/C 6.00 12/30/22 14:27 95 High Flow N/C 4.00 12/30/22 14:00 112 26 124/73 (90) 94 High Flow N/C 4.00 12/30/22 13:00 145 12/30/22 13:00 131 36 119/79 (92) 87 High Flow N/C 4.00 12/30/22 12:32 93 High Flow N/C 4.00 12/30/22 12:00 95 High Flow N/C 4.00 12/30/22 12:00 98 34 127/79 (95) 95 High Flow N/C 4.00 12/30/22 11:00 118 20 114/87 (96) 95 High Flow N/C 4.00 12/30/22 10:00 107 33 133/76 (95) 92 High Flow N/C 4.00 12/30/22 09:00 114 26 137/83 (101) 94 High Flow N/C 4.00 12/30/22 08:14 92 High Flow N/C 4.00 12/30/22 08:00 96 High Flow N/C 4.00 12/30/22 08:00 109 32 117/71 (86) 92 High Flow N/C 4.00 12/30/22 07:45 37.6 I & O 12/31/22 07:00 Intake Total 875 ml Output Total 600 ml Balance 275 ml Capillary Refill : Less Than 3 Seconds General Appearance: No Apparent Distress, Chronically ill HEENT: PERRL/EOMI Neck: Normal Inspection, Non Tender Respiratory: Chest Non Tender, No Accessory Muscle Use, Rhonci (b/l) Cardiovascular: No Edema, Irregularly Irregular, Tachycardia Peripheral Pulses: 2+ Dorsalis Pedis (R), 2+ Left Dors-Pedis (L), 2+ Radial Pulses (R), 2+ Radial Pulses (L) Gastrointestinal: normal bowel sounds, distended (less), guarding (voluntary), tenderness Extremity: Non Tender, No Calf Tenderness Neurologic/Psychiatric: Alert, Oriented x3 Skin: Normal Color, Warm/Dry Lymphatic: No Adenopathy Results Lab Laboratory Tests 12/30/22 12:18: Arterial Blood pH 7.47H, Arterial Blood Partial Pressure CO2 45, Arterial Blood Partial Pressure O2 66L, Arterial Blood HCO3 33H, Arterial Blood Total CO2 34.2H , Arterial Blood Oxygen Saturation 95, Arterial Blood Base Excess 8.0H, Blood Gas Ventilator Setting NO, Blood Gas Inspired Oxygen 4 12/30/22 13:23: Glucometer 100 12/30/22 17:48: Glucometer 98 12/31/22 00:08: Glucometer 99 12/31/22 03:45: White Blood Count 14.1H, Red Blood Count 3.60L, Hemoglobin 12.4L, Hematocrit 37L , Mean Corpuscular Volume 103H, Mean Corpuscular Hemoglobin 34, Mean Corpuscular Hemoglobin Concent 33, Red Cell Distribution Width 14.4, Platelet Count 179, Mean Platelet Volume 10.5, Sodium Level 142, Potassium Level 3.1L, Chloride Level 104, Carbon Dioxide Level 29, Anion Gap 9, Blood Urea Nitrogen 9, Creatinine 0.73, Estimat Glomerular Filtration Rate 100, BUN/Creatinine Ratio 12, Glucose Level 107H, Calcium Level 8.7, Magnesium Level 1.9 Microbiology 12/26/22 Gram Stain - Final, Complete 12/26/22 Sputum Culture - Final, Complete Klebsiella pneumoniae Assessment/Plan Assessment/Plan Assessment/Plan S/P Ex lap with partial gastric resection S/P Respiratory Arrest Gastric Distention Leukocytosis ? respiratory Ileus Monitor blood pressure- stable today, no pressors abdomen is distended but feel this is due to ileus, increasing distension with voluntary guarding Titrate O2 down as tolerated- Currently at 6L High flow nasal canula NG decompression in place in the stomach will clamp and trial ice chips, Ice c hips tolerated advance to liquids, may need to be back on LIWS Incentive spirometer On Zosyn wbc increased today to 15.7, chest x ray in am and changed to meropenem. BRYON DAVIS DO 12/31/22 1900: Subjective Subjective/Events-last exam Patient more lethargic today. Had to placed on bipap. Abdomen more distended today. Urine output lower. Ng tube to LIWS. Having some stools. HR better controlled today was tachycardic 150's. Son at bedside. WBC slightly down after changing to Meropenem yesterday. Objective Exam General Appearance: No Apparent Distress (on bipap), Chronically ill HEENT: PERRL/EOMI Neck: Normal Inspection, Non Tender Respiratory: Chest Non Tender, No Accessory Muscle Use Cardiovascular: Irregularly Irregular, Tachycardia Gastrointestinal: distended; No guarding (voluntary); tenderness (minimal midline) Extremity: Non Tender, No Calf Tenderness Neurologic/Psychiatric: Alert ( on bipap and follows direction) Skin: Normal Color, Warm/Dry Lymphatic: No Adenopathy Assessment/Plan Assessment/Plan Assessment/Plan S/P Ex lap with partial gastric resection S/P Respiratory Arrest Gastric Distention Leukocytosis ? respiratory EtOH use Ileus Monitor blood pressure- stable today, no pressors abdomen is distended but feel this is due to ileus, increasing distention and on bipap NG decompression in place in the stomach will clamp and trial ice chips if not on bipap, Incentive spirometer Meropenem Will start TPN for nutrition. Supervisory-Addendum Brief Verification & Attestation Participated in pt care: history, MDM, physical Personally performed: exam, history, MDM, supervision of care Care discussed with: Medical Student Procedures: n/a Results interpretation: Verified all documentation Verification and Attestation of Medical Student E/M Service A medical student performed and documented this service in my presence. I reviewed and verified all information documented by the medical student and made modifications to such information, when appropriate. I personally performed the physical exam and medical decision making. Bryon Davis, Dec 31, 2022,19:00 NEMESIO HODGSON Dec 31, 2022 07:17 BRYON DAVIS DO Dec 31, 2022 19:00
[2022-12-31] MEDS: PANTOPRAZOLE INJECTION 40 MG VIAL IV SCH ×2 (07:39→20:12)
--- NOTE | 2022-12-31 08:04 | Cardiology Progress Note ---
Subjective Date Seen by Provider: Dec 31, 2022 Time Seen by Provider: 08:02 Subjective/Events-last exam Patient became confused last night, he is sedated, maintained on BiPAP Objective-Cardiology Exam Last Set of Vital Signs Vital Signs 12/29/22 12/31/22 12/31/22 23:00 07:15 07:35 Temp 35.9 Pulse 105 Resp 25 Pulse Ox 98 O2 Flow Rate 50.00 FiO2 50 I&O Intake and Output 12/30/22 23:59 Intake Total 1025 ml Output Total 1150 ml Balance -125 ml Intake Oral 300 ml IV Total 725 ml Output Urine Total 1100 ml Gastric Drainage Total 50 ml General: Moderate Distress, Other (Sedated) HEENT: Atraumatic Neck: Supple, No JVD Lungs: Other (decreased air movement) Heart: Normal S1, Normal S2, Other (tachcyardic, irregular) Abdomen: Soft, Other (Diminished bowel sounds and distended abdomen) Extremities: No Clubbing, No Cyanosis, No Edema Skin: No Rashes, No Significant Lesion Neuro: Other (Sedated) Psych/Mental Status: Other (Sedated) Results Lab Laboratory Tests 12/31/22 03:45 A/P-Cardiology Admission Diagnosis Acute abdomen Acute respiratory failure Coronary artery disease Permanent atrial fibrillation Assessment/Plan Status post acute respiratory failure, ventilator dependent Patient had extensive pulmonary history with severe COPD and recurrent respiratory failure Had multiple hospitalization in February and July 2022 Managed by critical care team Status post cardiac arrest, PEA after intubation probably secondary to intubation and sedation and respiratory failure Has been stable. Continue to monitor Status post acute abdomen, gastric perforation, status post exploratory laparotomy done on December 21, 2022 Distended abdomen with questionable obstruction versus ileus. Managed by surgical team. Continue to monitor Chronic permanent atrial fibrillation, borderline tachycardic, maintained on Cardizem drip Maintained on Cardizem History of ablation in April [address] Godfrey, had multiple cardiac arrest and complex hospitalization in October 2017 Continue to titrate Cardizem drip Coronary artery disease, history of stenting using 3.020 mm Promus stent to the right coronary artery done in March 2012. Stress test done on November 01, 2019 showing Baseline atrial fibrillation, decreased uptake involving the mid to apical inferior wall with no reversibility, ejection fraction 40 percent probably due to tachycardia. Patient had been having more chest pain recently, was scheduled for [facility] on 2022 as outpatient. Will postpone at this time. COPD, using oxygen at night, had a complex hospitalization with Legionella pneumonia and CMV, respiratory failure, multiple cardiac arrest in October 2017. loculated pneumonia underwent right lung decortication on January 28, 2018 resulted in hydropneumothorax and marked emphysema and had prolonged chest tube placement. History of congestive heart failure, chronic left ventricular systolic dysfunction. 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 Abdominal aortic aneurysm, had a stent placed by Dr. Hogue done in June 2021. Hypertension, continue to monitor. Hyperlipidemia, continue to monitor lipids DARBY Healy BASHAR J MD Dec 31, 2022 08:03
--- NOTE | 2022-12-31 08:41 | Diagnostic Imaging Report ---
EXAMINATION: Chest 1 view HISTORY: Pneumonia. COMPARISON: 12/28/2022 FINDINGS: Right internal jugular central venous catheter tip terminates in the superior vena cava. Gastric tube is in the stomach. There is a small left effusion and overlying atelectasis. No edema removed. No pneumothorax. Heart size is normal. IMPRESSION: 1. Small left effusion and overlying atelectasis. Dictated by: Dictated on workstation # [id number]
[2022-12-31 09:40] VITALS: BP 126/83
[2022-12-31] MEDS: RT-Ipratropium/Albuterol NEB 3 ML VIAL INH SCH ×3 (09:40→19:10)
[2022-12-31] MEDS: FLUTICASONE/VILANTEROL 200/25 MCG (14 DOSES) IH SCH (09:40)
--- NOTE | 2022-12-31 09:42 | Tele-ICU Progress Note ---
Subjective Date Seen by a Provider: Dec 31, 2022 Time Seen by a Provider: 09:41 Subjective/Events-last exam (Tele-ICU Physician , Progress Note ) Service provided via interactive audio and video telecommunications E-CARE system to a patient admitted to ICU bed in [facility]. Patient is seen today due to persistent need of ICU care Available chart/ vitals / labs / Images reviewed Video assessment done using teleICU camera, rest of exam as per RN Discussed with RN Events overnight : Afebrile hemodynamically stable Respiratory - 50% I/O = pos Drips: d5 LR 50 cardizem 10 Pressors- - OFF Hospital course: (12/21) 67yr old male admitted s/p Ex. Lap partial gastric resection(gastric perf). Intubated (12/22) Extubated. (12/26) pt hypoxic on bipap-Intubated, arrested after intubation w/ ROSC, CTH - WNL , CT abd- high-grade small bowel obstruction. 12/27- on levo 0.04 and vaso 0.03, Fio2 50 % , RASS -2 on propofol 30 fentanyl 50 , cardizem 5 12/28- fio2 40 % , on levo 0.04 and vaso 0.03, Fio2 50 % , RASS -2 on propofol 30 fentanyl 50 , cardizem 5 12/28- EXTUBATED - to BIPAP 12/29- NC , bipap night , OFF pressors 12/30- BIPAP til 4 am - NC 4 L , AAO, cardizem 5 , NG OFF suction --> Increased abd distention --> back on LIS 12/31- confused , BIPAP 16/8 50% 30 tv 600 MV 17 L , steroid x1 IV , started MERREM . low UO - woods repplaced A/P Acute resp failure , hypoxic ( extubated post op 12/22 --> re-intubated on 12/26--->12/28- EXTUBATED - to BIPAP - today on bipap rr 16/8 50% 30 tv 600 MV 17 L - DID NOT TOLERATED OFF BIPAP - + secretions , on nebs /ICS -12/31 one dose IV steroids given - IS : doing his best with rib Fr pain and confusion Card arrest 12/25 with ROSC 5 min ( secondary to resp failure? ) =recovered well Gastric perforation, had parital /6 --CT 12/25 - high-grade small bowel obstruction. - NG in place - off suction 12/30 --> Increased abd distention --> back on LIS - as per sx started MERREM 12/31 Possivle PNA with patchy airspace opacity on CT ch - sputum 12/26-Klebsiella - on zosyn till 12/30 --started MERREM 12/31 Chronic a fib with RVR ( s/p dig, metoprolol prn -cardizem gtt 10 -xarelro on hold - as pr Sx and cards to resume (? Lovenox full dose - npo ) - cards follow Multiple right rib fractures. - post arrest 's CPR , no PTX - cont pain control , IS CAD -EF 40 % Pulm htn with PSAP in 50's - monitor for VO COPD -using oxygen at night, - CT with Severe emphysematous change and bullous disease - + wheezing - increase nebs frequency - add LABA/ICS - try to avoid systemic steroids , one dose 12/30 Multiple Lung infection in past -Hx of pulmonary aspergillous 2019 S/p right lung decortication on January 28, 2018 resulted in hydropneumothorax and marked emphysema and had prolonged chest tube placement. ETON abuse - not recently as per report AAA< s/p with stent in place Nutrition - NPO with SBO - follow Urinary retntion /low UP 12/31 - woods replaced Electrolites replacement Accuchecks Shock - multifactorial RESOLVED - OFF PRESSORS Lines : R IJ 12/26 , art line - removed 12/29 , (Central Line Necessity Reviewed) Woods: 12/31 Urinary retntion /low UP 12/31- woods replaced OG: Nutrition: npo Analgesia: Anxiety/ delirium VTE Prophylaxis: blake 40 Stress Ulcer Prophylaxis: ppi Plans in collaboration with bedside consultants and IM MDs. Discussed with RN to reach out if any questions or concerns Case and care daily discussed on multidisciplinary rounds ( RN, PharmD, Continuous Dryout Operator Helper , Respiratory Therapy, iron worker ) 31 minutes of critical care time was devoted to this patient today, required to treat and/or prevent further deterioration of critical care condition ( as above ) . I am remotely monitoring this patient from another state. I am unable to do the bedside exam, and history/physical and pertinent information is taken from other notes in the computer and bedside staff. Sepsis Event Evaluation Height, Weight, BMI Height: 6'4.00" Weight: 154lbs. 2.0oz. 69.010061ox; 22.31 BMI Method:Stated Exam Exam Patient acknowledged, consented, and participated in this virtual visit which was conducted using real time audio/video Vital Signs Date Time Temp Pulse Resp B/P (MAP) Pulse Ox O2 Delivery O2 Flow Rate FiO2 12/31/22 08:00 99 NIV Bilevel 50 12/31/22 07:35 35.9 12/31/22 07:15 105 25 98 50.00 12/31/22 07:00 98 12/31/22 06:00 94 35 137/87 (106) 100 NIV Bilevel 50.00 12/31/22 06:00 97 30 137/87 (104) 100 NIV Bilevel 50.00 12/31/22 05:40 92 51 143/96 (100) 92 NIV Bilevel 50.00 12/31/22 05:20 93 30 135/89 (104) 97 NIV Bilevel 50.00 12/31/22 05:00 107 26 143/81 (101) 93 NIV Bilevel 50.00 12/31/22 04:20 125 19 164/82 (104) 96 NIV Bilevel 50.00 12/31/22 04:00 35.7 109 24 140/86 (93) 97 NIV Bilevel 50.00 12/31/22 04:00 108 24 140/86 (104) 99 NIV Bilevel 50.00 12/31/22 04:00 95 High Flow N/C 4.00 12/31/22 03:40 131 23 146/109 (113) 94 NIV Bilevel 50.00 12/31/22 03:30 142 18 95 NIV Bilevel 50.00 12/31/22 03:00 138 20 113/77 (89) 96 NIV Bilevel 50.00 12/31/22 02:07 109 23 97 50.00 12/31/22 02:00 138 27 142/82 (99) 97 NIV Bilevel 50.00 12/31/22 02:00 140 26 142/82 (102) 97 NIV Bilevel 50.00 12/31/22 01:57 120 154/88 12/31/22 01:41 147 35 154/88 (92) 89 NIV Bilevel 50.00 12/31/22 01:40 46/33 (39) 12/31/22 01:20 130 27 151/102 (115) 98 NIV Bilevel 50.00 12/31/22 01:00 35.9 141/90 (97) 12/31/22 01:00 125 24 141/90 (107) 97 NIV Bilevel 50.00 12/31/22 00:05 133 12/31/22 00:00 134 27 152/101 (118) 97 NIV Bilevel 50.00 12/30/22 23:59 96 High Flow N/C 4.00 12/30/22 23:00 108 22 122/86 (98) 100 NIV Bilevel 50.00 12/30/22 22:17 111 27 97 50.00 12/30/22 22:00 126 24 161/96 (122) 94 High Flow N/C 4.00 12/30/22 21:00 110 25 140/86 (104) 95 High Flow N/C 4.00 12/30/22 20:25 96 High Flow N/C 4.00 12/30/22 20:11 97 High Flow N/C 4.00 12/30/22 20:01 36.9 High Flow N/C 4.00 12/30/22 20:00 113 13 147/80 (102) 96 High Flow N/C 4.00 12/30/22 19:40 116 23 141/88 (101) 96 High Flow N/C 4.00 12/30/22 19:30 114 30 97 High Flow N/C 4.00 12/30/22 19:20 129 17 132/96 (105) 97 High Flow N/C 4.00 12/30/22 19:17 98 12/30/22 19:00 102 25 132/80 (89) 98 High Flow N/C 4.00 12/30/22 18:00 111 23 135/81 (99) 96 High Flow N/C 4.00 12/30/22 17:00 96 26 122/92 (102) 95 High Flow N/C 4.00 12/30/22 16:00 36.7 High Flow N/C 6.00 12/30/22 16:00 128 25 121/78 (92) 96 High Flow N/C 4.00 12/30/22 16:00 96 High Flow N/C 4.00 12/30/22 15:00 116 34 100/83 (89) 94 High Flow N/C 6.00 12/30/22 14:27 95 High Flow N/C 4.00 12/30/22 14:00 112 26 124/73 (90) 94 High Flow N/C 4.00 12/30/22 13:00 145 12/30/22 13:00 131 36 119/79 (92) 87 High Flow N/C 4.00 12/30/22 12:32 93 High Flow N/C 4.00 12/30/22 12:00 95 High Flow N/C 4.00 12/30/22 12:00 98 34 127/79 (95) 95 High Flow N/C 4.00 12/30/22 11:00 118 20 114/87 (96) 95 High Flow N/C 4.00 12/30/22 10:00 107 33 133/76 (95) 92 High Flow N/C 4.00 I & O 12/31/22 06:59 Intake Total 875 ml Output Total 600 ml Balance 275 ml Height & Weight Height: 6'4.00" Weight: 154lbs. 2.0oz. 69.012671im; 22.31 BMI Method:Stated General Appearance: No Apparent Distress, Chronically ill HEENT: PERRL/EOMI Neck: Normal Inspection, Non Tender Respiratory: Chest Non Tender, No Accessory Muscle Use, Rhonci (b/l) Cardiovascular: No Edema, Irregularly Irregular, Tachycardia Capillary Refill: Less Than 3 Seconds Peripheral Pulses: 2+ Dorsalis Pedis (R), 2+ Left Dors-Pedis (L), 2+ Radial Pulses (R), 2+ Radial Pulses (L) Gastrointestinal: normal bowel sounds, distended (less), guarding (voluntary), tenderness Extremity: Non Tender, No Calf Tenderness Neurologic/Psychiatric: Alert, Oriented x3 Skin: Normal Color, Warm/Dry Lymphatic: No Adenopathy Results Lab Laboratory Tests 12/30/22 04:05 12/31/22 03:45 Assessment/Plan Assessment/Plan 1 ALEXIS MARSH MD Dec 31, 2022 09:42
--- NOTE | 2022-12-31 09:44 | Progress Note ---
RUDDY COPE MD, RESIDENT 12/31/22 0944: Subjective HPI/CC On Admission Date Seen by Provider: Dec 31, 2022 Time Seen by Provider: 07:50 67 yo male admitted after coming to ER with abdominal pain and having CT that showed large free air in abdomen. He underwent exploratory laparoscopy and found to have gastric perforation and partial gastrectomy was done last night. This morning he is still intubated, is alert but unable to give history due to ventilator status. Subjective/Events-last exam Patient mildly agitated overnight. Did require dose of Ativan and was placed on BiPAP. He is resting comfortably in bed this morning. Objective Exam Vital Signs Vital Signs Date Time Temp Pulse Resp B/P (MAP) Pulse Ox O2 Delivery O2 Flow Rate FiO2 12/31/22 08:00 99 NIV Bilevel 50 12/31/22 07:35 35.9 12/31/22 07:15 105 25 50.00 Capillary Refill : Less Than 3 Seconds General Appearance: No Apparent Distress HEENT: Normal ENT Inspection Neck: Normal Inspection Respiratory: Chest Non Tender, Lungs Clear, Normal Breath Sounds, No Accessory Muscle Use, No Respiratory Distress Cardiovascular: Regular Rate, Rhythm, No Edema, No Murmur Gastrointestinal: Normal Bowel Sounds, Non Tender, Soft, Other (Abdomen does appear more distended today, may be secondary to pressure from BiPAP) Extremity: No Pedal Edema Skin: Normal Color, Warm/Dry Results/Procedures Lab Laboratory Tests 12/31/22 03:45 Patient resulted labs reviewed. Assessment/Plan Assessment and Plan Assess & Plan/Chief Complaint 67-year-old male presenting with abdominal pain status post exploratory laparotomy. Did require intubation due to worsening respiratory status on 12/26. Did have to perform CPR prior to achieving ROSC. Was also noted to be hypotensive requiring initiation of pressors. Hypotension thought to be secondary to intubation. Patient otherwise looking stable this morning. Chronic resp failure, post-code - Successfully extubated on 12/28 - MAT protocol - CT chest from 12/26 notable for severe emphysematous change and bullous diseas e with patchy airspace opacity which may be due to pneumonia or edema. - Sputum culture growing rare gram-negative rods - Meropenem started by primary team yesterday due to leukocytosis. Does appear to be improving this morning to 14.1 -On BiPAP this morning due to agitation and some respiratory distress Shock, mixed - Resolved -Continues to do well off of pressors Rib pain - Secondary to chest compressions -Has morphine 2 mg as needed on board and has been using less frequently than yesterday -Encourage limiting use as able due to patient's bowel status Atrial fibrillation - Good rate control. Continue diltiazem drip 5 mg/hr - Cardiology following, appreciate recommendations SBO -NG tube still in place. Will defer to surgery -NPO -PT/OT following, patient will likely need SNF placement after discharge Gastric perforation s/p partial gastrectomy -CT abdomen from 12/26 notable for marked distention of the stomach and proximal small bowel concerning for high-grade small bowel obstruction. Similar prior pneumoperitoneum -Abdomen more extended this morning, may be due to BiPAP. Will defer to surgery call team for evaluation on this -Surgery following, appreciate recommendations Alcoholism - CIWA protocol -Recommend discontinuing CIWA protocol Hypertension -Holding home medications due to hypotensive episodes COPD -On 4 L oxygen at baseline -Wean oxygen as tolerated STAR KUMARI DO 01/01/23 0451: Subjective Subjective/Events-last exam Patient requiring BiPAP again High risk for reintubation Patient is very complicated at bedside Objective Exam General Appearance: Chronically ill, Other (Sedated on BiPAP) Respiratory: No Accessory Muscle Use, No Respiratory Distress, Decreased Breath Sounds Assessment/Plan Assessment and Plan Assess & Plan/Chief Complaint Continue BiPAP Treat agitation High risk for reintubation Prognosis poor RUDDY COPE MD, RESIDENT Dec 31, 2022 09:44 STAR KUMARI DO Jan 01, 2023 04:51
[2022-12-31] MEDS ORDERED: dexAMETHasone INJ 4 MG/ML SDV IV ONE (09:45)
[2022-12-31] MEDS ORDERED: LIDOCAINE UROJET 2% GEL 10 ML PKG TOP ONE (09:45)
--- NOTE | 2022-12-31 11:17 | Occ Therapy Progress Note ---
Therapy Progress Note PATIENT ON MEDICAL HOLD PER RN, OT TO CONTINUE TO MONITOR SARAH CARTAGENA OT Dec 31, 2022 11:17
--- NOTE | 2022-12-31 11:19 | Physical Therapy Progress Note ---
Therapy Progress Note Patient on Hold per RN due to decline in status. Will attempt tomorrow if deemed medically stable and able to actively participate with therapy. TOMMY WHITT PT Dec 31, 2022 11:19
[2022-12-31] MEDS: LACTATED RINGERS 1,000 ML 1,000 ML IV SCH (12:59)
[2022-12-31] MEDS: ENOXAPARIN 40 MG/0.4 ML SYRINGE SC SCH (12:59)
[2022-12-31] MEDS: D5 LR 1,000 ML IV SOLN 1,000 ML IV SCH (13:02)
[2022-12-31] MEDS ORDERED: TPN IV SCH (14:45)
[2022-12-31] MEDS ORDERED: ACETAMINOPHEN 650 MG SUPPOSITORY PR NR (17:45)
[2022-12-31] MEDS: NOREPINEPHRINE 8 MG/250 ML 250 ML IV SCH (20:25)
[2023-01-01] MEDS: dilTIAZem DRIP PRE-MIX 125 ML IV SCH ×4 (00:47→21:33)
[2023-01-01] MEDS: MEROPENEM 500 MG/NS 100 ML IVPB IV SCH ×8 (02:05→20:32)
[2023-01-01 02:32] VITALS: BP 119/81
[2023-01-01 04:04] LABS: BASOPHILS % (AUTO) 0 % (0-10); EOSINOPHILS % (AUTO) 0 % (0-10); HEMATOCRIT 33 % (40-54); HEMOGLOBIN 11.2 g/dL (13.3-17.7); LYMPHOCYTES # (AUTO) 0.8 10^3/uL (1.0-4.0); LYMPHOCYTES % (AUTO) 9 % (12-44); MEAN CORPUSCULAR HEMOGLOBIN 35 pg (25-34); MEAN CORPUSCULAR HGB CONC 34 g/dL (32-36); MEAN CORPUSCULAR VOLUME 104 fL (80-99); MEAN PLATELET VOLUME 10.8 fL (9.0-12.2); MONOCYTES # (AUTO) 0.3 10^3/uL (0.0-1.0); MONOCYTES % (AUTO) 4 % (0-12); NEUTROPHILS # (AUTO) 8.1 10^3/uL (1.8-7.8); NEUTROPHILS % (AUTO) 86 % (42-75); PLATELET COUNT 184 10^3/uL (130-400); WHITE BLOOD COUNT 9.4 10^3/uL (4.3-11.0)
[2023-01-01 04:13] LABS: ALBUMIN 2.6 GM/DL (3.2-4.5); POTASSIUM 3.7 MMOL/L (3.6-5.0)
[2023-01-01 04:14] LABS: INR 1.1 (0.8-1.4); PROTHROMBIN TIME PATIENT 14.8 SEC (12.2-14.7)
[2023-01-01 04:15] LABS: CALCIUM 8.2 MG/DL (8.5-10.1)
[2023-01-01 04:16] LABS: TOTAL PROTEIN 5.7 GM/DL (6.4-8.2)
[2023-01-01 04:18] LABS: BAND NEUTROPHILS 3 %; BILIRUBIN,TOTAL 1.5 MG/DL (0.1-1.0); LYMPHOCYTES % (MANUAL) 7 %; MONOCYTES % (MANUAL) 5 %; MYELOCYTES % 1 %; NEUTROPHILS % (MANUAL) 84 %; RBC MORPH NORMAL
[2023-01-01 04:19] LABS: PHOSPHORUS 2.6 MG/DL (2.3-4.7)
[2023-01-01 04:20] LABS: CREATININE SERUM 0.74 MG/DL (0.60-1.30)
[2023-01-01 04:22] LABS: MAGNESIUM 1.9 MG/DL (1.6-2.4)
[2023-01-01] MEDS: POTASSIUM CL 10MEQ/50ML IVPB 50 ML IV SCH ×3 (05:39→05:40)
[2023-01-01] MEDS: POTASSIUM CHLORIDE 20 MEQ TABLET PO SCH (05:40)
[2023-01-01] MEDS: MAGNESIUM 1 GM/100 ML IVPB 100 ML IV SCH ×2 (05:40)
[2023-01-01] MEDS: RT-Ipratropium/Albuterol NEB 3 ML VIAL INH PRN (07:05)
[2023-01-01 07:07] VITALS: BP 117/87
[2023-01-01] MEDS: PANTOPRAZOLE INJECTION 40 MG VIAL IV SCH ×2 (08:33→20:32)
--- NOTE | 2023-01-01 09:40 | Progress Note ---
RUDDY COPE MD, RESIDENT 01/01/23 0940: Subjective HPI/CC On Admission Date Seen by Provider: Jan 01, 2023 Time Seen by Provider: 08:00 67 yo male admitted after coming to ER with abdominal pain and having CT that showed large free air in abdomen. He underwent exploratory laparoscopy and found to have gastric perforation and partial gastrectomy was done last night. This morning he is still intubated, is alert but unable to give history due to ventilator status. Subjective/Events-last exam Patient is doing well today. He wears a BiPAP at night for sleep apnea. However did have a period where he was on his home 4 L nasal cannula yesterday. His NG tube was clamped yesterday as patient was having some nausea. Had significant bowel movements yesterday as well. He had no other overnight events and appears to be doing well this morning. He states that his right chest pain is still present but is slowly improving. He otherwise has no concerns this morning. Review of Systems General: No Fatigue Pulmonary: No Dyspnea, No Cough Cardiovascular: No: Chest Pain, Palpitations, Edema Gastrointestinal: Nausea, Diarrhea; No: Vomiting, Abdominal Pain, Constipation Genitourinary: No Dysuria Objective Exam Vital Signs Vital Signs Date Time Temp Pulse Resp B/P (MAP) Pulse Ox O2 Delivery O2 Flow Rate FiO2 01/01/23 09:00 135 30 121/94 (103) 96 Nasal Cannula 6.00 01/01/23 04:02 40 01/01/23 04:00 36.6 Capillary Refill : Less Than 3 Seconds General Appearance: No Apparent Distress HEENT: Normal ENT Inspection, Other (NG tube still in place) Neck: Full Range of Motion, Normal Inspection Respiratory: Chest Non Tender, No Accessory Muscle Use, No Respiratory Distress, Rhonci Cardiovascular: Regular Rate, Rhythm, No Edema, No Murmur Gastrointestinal: Normal Bowel Sounds, Non Tender, Soft, Other (Mildly distended abdomen likely secondary to positive pressure from BiPAP, midline scar with delbert, no drainage or erythema noted.) Extremity: No Pedal Edema Neurologic/Psychiatric: Alert Skin: Normal Color, Warm/Dry Results/Procedures Lab Laboratory Tests 01/01/23 03:48 Patient resulted labs reviewed. Assessment/Plan Assessment and Plan Assess & Plan/Chief Complaint 67-year-old male presenting with abdominal pain status post exploratory laparotomy. Required intubation on 12/26 with CPR performed shortly afterwards prior to achieving ROSC. Patient successfully extubated on 12/28. Continues to remain stable this morning. Chronic resp failure, post-code - Successfully extubated on 12/28 - MAT protocol - CT chest from 12/26 notable for severe emphysematous change and bullous disease with patchy airspace opacity which may be due to pneumonia or edema. - Sputum culture growing rare gram-negative rods - IV meropenem. Leukocytosis resolved as of this morning. -Continue BiPAP as needed overnight however goal is to keep patient on 4 L nasal cannula Shock, mixed - Resolved -Continues to do well off of pressors Rib pain, improving - Secondary to chest compressions -Continues to improve Atrial fibrillation - Continue diltiazem drip 5 mg/hr - Cardiology following, appreciate recommendations SBO -NG tube still in place. Clamped yesterday -Will start TPN today -NG tube removal per surgery -PT/OT following, patient will likely need SNF placement after discharge Gastric perforation s/p partial gastrectomy -CT abdomen from 12/26 notable for marked distention of the stomach and proximal small bowel concerning for high-grade small bowel obstruction. Similar prior pneumoperitoneum -Surgery following, appreciate recommendations Alcoholism - CIWA protocol - Recommend discontinuing CIWA protocol Hypertension -Holding home medications due to hypotensive episodes COPD -On 4 L oxygen at baseline -Wean oxygen as tolerated STAR KUMARI DO 01/02/23 0558: Subjective Subjective/Events-last exam Patient doing a little bit better Wore BiPAP last night Nasal cannula currently Working on Acapella and incentive spirometer Review of Systems General: Fatigue, Malaise Objective Exam General Appearance: No Apparent Distress, WD/WN, Chronically ill Respiratory: No Accessory Muscle Use, No Respiratory Distress, Rales, Rhonci Cardiovascular: Regular Rate, Rhythm, Tachycardia Assessment/Plan Assessment and Plan Assess & Plan/Chief Complaint Continue aggressive care A-fib management BiPAP at night I personally performed the gaytan portions of the visit, discussed case with resident and concur with resident documentation of history, physical exam, assessment and treatment plan unless otherwise noted. RUDDY COPE MD, RESIDENT Jan 01, 2023 09:40 STAR KUMARI DO Jan 02, 2023 05:58
[2023-01-01] MEDS: morphine INJ 4 MG/ML 1 ML (VIAL/SYRINGE) IVP PRN (10:11)
[2023-01-01] MEDS: RT-Ipratropium/Albuterol NEB 3 ML VIAL INH SCH ×3 (10:37→22:30)
[2023-01-01] MEDS: FLUTICASONE/VILANTEROL 200/25 MCG (14 DOSES) IH SCH (10:37)
--- NOTE | 2023-01-01 10:48 | Cardiology Progress Note ---
Subjective Date Seen by Provider: Jan 01, 2023 Time Seen by Provider: 10:46 Subjective/Events-last exam Patient was seen at bedside, feeling better, passing gas today. Objective-Cardiology Exam Last Set of Vital Signs Vital Signs 01/01/23 01/01/23 01/01/23 01/01/23 04:02 08:30 10:00 10:37 Temp 36.5 Pulse 129 Resp 19 B/P (MAP) 125/90 (115) Pulse Ox 94 O2 Delivery High Flow N/C O2 Flow Rate 4.00 FiO2 40 I&O Intake and Output 12/31/22 23:59 Intake Total 395 ml Output Total 1140 ml Balance -745 ml Intake Oral 20 ml IV Total 375 ml Output Urine Total 840 ml Gastric Drainage Total 300 ml Bladder Scan Volume Amount 294 ml # Bowel Movements 6 General: Alert, Oriented X3, Cooperative, Moderate Distress HEENT: Atraumatic Neck: Supple, No JVD Lungs: Other (decreased air movement) Heart: Normal S1, Normal S2, Other (tachcyardic, irregular) Abdomen: Soft, Other (Diminished bowel sounds and distended abdomen) Extremities: No Clubbing, No Cyanosis, No Edema Skin: No Rashes, No Significant Lesion Neuro: Normal Speech Psych/Mental Status: Mental Status NL, Mood NL Results Lab Laboratory Tests 01/01/23 03:48 A/P-Cardiology Admission Diagnosis Acute abdomen Acute respiratory failure Coronary artery disease Permanent atrial fibrillation Assessment/Plan Status post acute respiratory failure, ventilator dependent Patient had extensive pulmonary history with severe COPD and recurrent respiratory failure Had multiple hospitalization in February and July 2022 Managed by critical care team Status post cardiac arrest, PEA after intubation probably secondary to intubation and sedation and respiratory failure Has been stable. Continue to monitor Status post acute abdomen, gastric perforation, status post exploratory laparotomy done on December 21, 2022 Distended abdomen with questionable obstruction versus ileus, improving, passing gas. Managed by surgical team. Continue to monitor Chronic permanent atrial fibrillation, borderline tachycardic, maintained on Cardizem drip Maintained on Cardizem History of ablation in April [address] Godfrey, had multiple cardiac arrest and complex hospitalization in October 2017 Continue to titrate Cardizem drip Coronary artery disease, history of stenting using 3.020 mm Promus stent to the right coronary artery done in March 2012. Stress test done on November 01, 2019 showing Baseline atrial fibrillation, decreased uptake involving the mid to apical inferior wall with no reversibility, ejection fraction 40 percent probably due to tachycardia. Patient had been having more chest pain recently, was scheduled for [facility] on December 23, 2022 as outpatient. Will postpone at this time. COPD, using oxygen at night, had a complex hospitalization with Legionella pneumonia and CMV, respiratory failure, multiple cardiac arrest in October 2017. loculated pneumonia underwent right lung decortication on January 28, 2018 resulted in hydropneumothorax and marked emphysema and had prolonged chest tube placement. History of congestive heart failure, chronic left ventricular systolic dysfunction. 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 Abdominal aortic aneurysm, had a stent placed by Dr. Hogue done in June 2021. Hypertension, continue to monitor. Hyperlipidemia, continue to monitor lipids Niraj, AIDAN PASTOR MD Jan 01, 2023 10:48
--- NOTE | 2023-01-01 10:51 | Progress Note - Surgery ---
NEMESIO HODGSON 01/01/23 1050: Subjective Date Seen by a Provider: Jan 01, 2023 Time Seen by a Provider: 10:15 Subjective/Events-last exam Pt is laying comfortably in bed. Still having pain in right ribs thats worse with breathing and coughing. Pt had a BM yesterday and is having flatus and feels like he is going "to have another BM". Pt has intermittent nausea, no vomiting. Abdomen is less distended. Pt is currently on 6L O2 NC and using bipap overnight. WBC is 9.4 Review of Systems General: No Chills, No Night Sweats HEENT: No Head Aches, No Visual Changes Pulmonary: No Dyspnea; Cough, Pleuritic Chest Pain (due to broken ribs on right side) Cardiovascular: No: Chest Pain, Palpitations, Edema Gastrointestinal: Nausea; No: Vomiting, Abdominal Pain Genitourinary: No Dysuria, No Hematuria Musculoskeletal: No: neck pain, shoulder pain Neurological: No: Numbness, Confusion Objective Exam Vital Signs Date Time Temp Pulse Resp B/P (MAP) Pulse Ox O2 Delivery O2 Flow Rate FiO2 01/01/23 10:37 94 High Flow N/C 4.00 01/01/23 10:23 Nasal Cannula 4.00 01/01/23 10:00 129 19 125/90 (115) 94 Nasal Cannula 6.00 01/01/23 09:00 135 30 121/94 (103) 96 Nasal Cannula 6.00 01/01/23 08:30 36.5 01/01/23 08:00 110 21 91/73 (80) 96 NIV Bilevel 40.00 01/01/23 07:07 107 20 99 30.00 01/01/23 07:00 96 23 117/87 (93) 100 NIV Bilevel 30.00 01/01/23 07:00 99 01/01/23 07:00 96 23 117/87 (93) 100 NIV Bilevel 40.00 01/01/23 06:00 121 21 120/68 (85) 100 NIV Bilevel 40.00 01/01/23 05:00 126 23 126/73 (90) 100 NIV Bilevel 40.00 01/01/23 04:02 100 NIV Bilevel 40 01/01/23 04:00 36.6 01/01/23 04:00 106 24 127/94 (105) 98 NIV Bilevel 40.00 01/01/23 03:00 87 20 121/77 (92) 100 NIV Bilevel 40.00 01/01/23 02:32 93 23 100 40.00 01/01/23 02:00 101 21 126/71 (89) 99 NIV Bilevel 40.00 01/01/23 01:00 91 24 117/80 (92) 100 NIV Bilevel 40.00 01/01/23 00:56 98 137/77 01/01/23 00:47 98 137/77 01/01/23 00:04 93 01/01/23 00:00 93 20 116/68 (84) 100 NIV Bilevel 40.00 12/31/22 23:55 36.7 12/31/22 23:51 97 NIV Bilevel 40 12/31/22 23:00 99 28 126/75 (92) 98 NIV Bilevel 40.00 12/31/22 22:32 NIV Bilevel 40.00 12/31/22 22:19 102 25 96 40.00 12/31/22 22:00 108 24 131/75 (93) 96 High Flow N/C 4.00 12/31/22 21:00 98 25 126/77 (93) 97 High Flow N/C 4.00 12/31/22 20:25 112 134/87 12/31/22 20:24 36.2 High Flow N/C 4.00 12/31/22 20:00 97 High Flow N/C 3.00 12/31/22 20:00 112 28 137/78 (97) 96 High Flow N/C 4.00 12/31/22 19:14 112 12/31/22 19:11 97 High Flow N/C 4.00 12/31/22 19:00 109 23 134/87 (103) 95 High Flow N/C 3.00 12/31/22 18:00 107 29 132/77 (106) 97 High Flow N/C 4.00 12/31/22 17:00 115 32 115/87 (96) 97 12/31/22 16:55 96 NIV Bilevel 40 12/31/22 16:00 142/97 (111) 12/31/22 15:33 98 High Flow N/C 4.00 12/31/22 15:13 96 NIV Bilevel 40 12/31/22 15:00 98 8 145/83 (102) 98 12/31/22 14:00 90 24 145/94 (117) 93 12/31/22 13:07 92 146/88 12/31/22 13:00 86 12/31/22 13:00 89 29 146/88 (120) 98 12/31/22 12:00 90 22 148/89 (108) 98 12/31/22 11:30 98 NIV Bilevel 50 12/31/22 11:13 36.7 I & O 01/01/23 06:59 Intake Total 120 ml Output Total 1340 ml Balance -1220 ml Capillary Refill : Less Than 3 Seconds General Appearance: No Apparent Distress HEENT: Normal ENT Inspection, Other (NG tube still in place) Neck: Full Range of Motion, Normal Inspection Respiratory: Chest Non Tender, No Accessory Muscle Use, No Respiratory Distress, Rhonci Cardiovascular: Regular Rate, Rhythm, No Edema, No Murmur Peripheral Pulses: 2+ Dorsalis Pedis (R), 2+ Left Dors-Pedis (L), 2+ Radial Pulses (R), 2+ Radial Pulses (L) Gastrointestinal: distended (less than yesterday, possible due to being of bipap this morning); No guarding (voluntary); tenderness (minimal midline) Extremity: No Pedal Edema Neurologic/Psychiatric: Alert, Normal Mood/Affect Skin: Normal Color, Warm/Dry Lymphatic: No Adenopathy Results Lab Laboratory Tests 12/31/22 11:56: Glucometer 116H 12/31/22 18:09: Glucometer 126H 12/31/22 23:45: Glucometer 127H 01/01/23 03:48: White Blood Count 9.4, Red Blood Count 3.20L, Hemoglobin 11.2L, Hematocrit 33L, Mean Corpuscular Volume 104H, Mean Corpuscular Hemoglobin 35H, Mean Corpuscular Hemoglobin Concent 34, Red Cell Distribution Width 14.5, Platelet Count 184, Mean Platelet Volume 10.8, Immature Granulocyte % (Auto) 2, Neutrophils (%) (Auto) 86H, Lymphocytes (%) (Auto) 9L, Monocytes (%) (Auto) 4, Eosinophils (%) (Auto) 0, Basophils (%) (Auto) 0, Neutrophils # (Auto) 8.1H, Lymphocytes # (Auto) 0.8L, Monocytes # (Auto) 0.3, Eosinophils # (Auto) 0.0, Basophils # (Auto) 0.0, Immature Granulocyte # (Auto) 0.1, Neutrophils % (Manual) 84, Lymphocytes % (Manual) 7, Monocytes % (Manual) 5, Myelocytes % 1, Band Neutrophils 3, Blood Morphology Comment NORMAL, Prothrombin Time 14.8H, INR Comment 1.1, Sodium Level 143, Potassium Level 3.7, Chloride Level 107, Carbon Dioxide Level 28, Anion Gap 8, Blood Urea Nitrogen 12, Creatinine 0.74, Estimat Glomerular Filtration Rate 99, BUN/Creatinine Ratio 16, Glucose Level 125H, Calcium Level 8.2L, Corrected Calcium 9.3, Phosphorus Level 2.6, Magnesium Level 1.9, Total Bilirubin 1.5H, Aspartate Amino Transf (AST/SGOT) 44H, Alanine Aminotransferase (ALT/SGPT) 18, Alkaline Phosphatase 95, Total Protein 5.7L, Albumin 2.6L, Triglycerides Level 130 Microbiology 12/26/22 Gram Stain - Final, Complete 12/26/22 Sputum Culture - Final, Complete Klebsiella pneumoniae Assessment/Plan Assessment/Plan Assessment/Plan S/P Ex lap with partial gastric resection S/P Respiratory Arrest Gastric Distention Ileus Monitor blood pressure- stable abdomen is distended less today, most likely due to being off bipap NG decompression tube clamped. Incentive spirometer Meropenem Start TPN for nutrition. BRYON DAVIS DO 01/01/23 1523: Subjective Subjective/Events-last exam Looking better today. Breathing easier on NC. Passing flatus. BM yesterday. Abdomen still with distention. Urine output improved. Family at bedside. Objective Exam General Appearance: No Apparent Distress, Anxious, Chronically ill HEENT: PERRL/EOMI, Normal ENT Inspection, Other (NG tube still in place) Neck: Full Range of Motion, Normal Inspection Respiratory: Chest Non Tender, No Accessory Muscle Use, No Respiratory Distress, Rhonci Cardiovascular: No Edema, No JVD, Irregularly Irregular Gastrointestinal: distended (less than yesterday, possible due to being on bipap), tenderness (minimal midline) Extremity: Non Tender Neurologic/Psychiatric: Alert, Normal Mood/Affect Skin: Normal Color, Warm/Dry Lymphatic: No Adenopathy Assessment/Plan Assessment/Plan Assessment/Plan S/P Ex lap with partial gastric resection S/P Respiratory Arrest Gastric Distention Ileus Monitor blood pressure- stable abdomen is distended less today, most likely due to being off bipap continue to monitor. NG tube clampe NG decompression tube clamped. Incentive spirometer Meropenem TPN for nutrition. wbc improving urine output jifaferjw-pfrshww-ecemq in Supervisory-Addendum Brief Verification & Attestation Participated in pt care: history, MDM, physical Personally performed: exam, history, MDM, supervision of care Care discussed with: Medical Student Procedures: n/a Results interpretation: Verified all documentation Verification and Attestation of Medical Student E/M Service A medical student performed and documented this service in my presence. I reviewed and verified all information documented by the medical student and made modifications to such information, when appropriate. I personally performed the physical exam and medical decision making. Bryon Davis, Jan 01, 2023,15:28 NEMESIO HODGSON Jan 01, 2023 10:50 BRYON DAVIS DO Jan 01, 2023 15:23
[2023-01-01] MEDS: ENOXAPARIN 40 MG/0.4 ML SYRINGE SC SCH (13:05)
[2023-01-01] MEDS: D5 LR 1,000 ML IV SOLN 1,000 ML IV SCH (13:05)
[2023-01-01] MEDS: fentaNYL INJECTION 100 MCG/2 ML VIAL IVP PRN ×2 (13:29→18:36)
[2023-01-01] MEDS: LACTATED RINGERS 1,000 ML 1,000 ML IV SCH ×2 (14:00→17:00)
--- NOTE | 2023-01-01 14:07 | Physical Therapy Daily Note ---
PT Daily Note-Current Subjective Patient lying supine in bed upon PT arrival, agreeable to treatment. Patient rates pain at 0/10. Pain Section J - Health Conditions 1. Rarely or not at all 2. Occasionally 3. Frequently 4. Almost constantly 8. Unable to answer Pain Effect on Sleep: 2 Pain Interference with Therapy: 3 Pain Interference w/Day-to-Day: 2 Mental Status Attachments: Oxygen, Meier Catheter, IV Transfers SCALE: Activities may be completed with or without assistive devices. 1-Lxbhmmzsoc-ptbgmjd completes the activity by him/herself with no assistance from a helper. 5-Set-up or Clean-up Assistance-helper sets up or cleans up; patient completes activity. [employer] assists only prior to or following the activity. 4-Supervision or Touching Assistance-helper provides verbal cues and/or touching/steadying and/or contact guard assistance as patient completes activity. Assistance may be provided throughout the activity or intermittently. 3-Partial/Moderate Assistance-helper does LESS THAN HALF the effort. [employer] lifts, holds or supports trunk or limbs, but provides less than half the effort. 2-Substantial/Maximal Assistance-helper does MORE THAN HALF the effort. [employer] lifts or holds trunk or limbs and provides more than half the effort. 7-Opojwlvmj-qxyxkr does ALL the effort. Patient does none of the effort to comp lete the activity. Or, the assistance of 2 or more helpers is required for the patient to complete the activity. If activity was not attempted, code reason: 7-Patient Refused. 9-Not Applicable-not attempted and the patient did not perform the activity before the current illness, exacerbation or injury. 10-Not Attempted due to Environmental Limitations-(lack of equipment, weather restraints, etc.). 88-Not Attempted due to Medical Conditions or Safety Concerns. Roll Left & Right (QC): 3 Sit to Lying (QC): 3 Lying to Sitting/Side of Bed(Q: 3 Gait Training Does the Patient Walk?: No and Walking Goal IS indicated Assessment Current Status: Poor Progress Patient requires mod A for all observed bed mobility. Patient initially on 5 L O2 upon sitting at EOB and sats declined from 93% to 83%. Patient O2 increased to 10 L and sats increased to 87/88%. Patient was able to sit at EOB ~ 5 minutes, however treatment discontinued due to decline in O2 saturation. Patient in bed post treatment with all needs met, nursing notified, call light in hand. PT Long-Term Goals Long-Term Goals PT Education Assistant Goals Time Frame: Jan 30, 2023 Roll Left & Right (QC): 6 Sit to Lying (QC): 6 Lying-Sitting on Side/Bed(QC): 6 Sit to Stand (QC): 6 Chair/Hnx-rx-Gggle Xfer(QC): 6 Toilet Transfer (QC): 6 Walk 10 feet (QC): 6 Walk 50ft with 2 Turns (QC): 6 Walk 150 ft (QC): 6 PT Plan Treatment/Plan Treatment Plan: Continue Plan of Care Treatment Plan: Bed Mobility, Education, Functional Activity Renée, Functional Strength, Gait, Safety, Therapeutic Exercise, Transfers Treatment Duration: Jan 30, 2023 Frequency: 5 times per week Estimated Hrs Per Day: .25 hour per day Patient and/or Family Agrees t: Yes Safety Risks/Education Patient Education: Transfer Techniques Teaching Recipient: Patient Teaching Methods: Demonstration, Discussion Response to Teaching: Reinforcement Needed Time Time In: 1342 Time Out: 1400 DATE: Jan 01, 2023 Total Billed Treatment Time: 18 Total Billed Treatment Visit, FA ED BENDER PT Jan 01, 2023 14:07
--- NOTE | 2023-01-01 14:37 | Occupational Ther Daily Note ---
OT Current Status-Daily Note Subjective Agreeable to OT, medication change and OT begins session 15 minutes after pain medication Mental Status/Objective Patient Orientation: Person, Place, Time, [place] Attachments: Meier Catheter, IV, NG Tube, Oxygen, Telemetry ADL-Treatment ADLs not performed in session. Therapy Code Descriptions/Definitions Functional [place] Measure: 0=Not Assessed/NA 4=Minimal Assistance 1=Total Assistance 5=Supervision or Setup 2=Maximal Assistance 6=Modified [place] 3=Moderate Assistance 7=Complete IndependenceSCALE: Activities may be completed with or without assistive devices. 0-Gxrbbygqvj-nepcpaz completes the activity by him/herself with no assistance from a helper. 5-Set-up or Clean-up Assistance-helper sets up or cleans up; patient completes activity. [place] assists only prior to or following the activity. 4-Supervision or Touching Assistance-helper provides verbal cues and/or touc torey/steadying and/or contact guard assistance as patient completes activity. Assistance may be provided throughout the activity or intermittently. 3-Partial/Moderate Assistance-helper does LESS THAN HALF the effort. [place] lifts, holds or supports trunk or limbs, but provides less than half the effort. 2-Substantial/Maximal Assistance-helper does MORE THAN HALF the effort. [employer] lifts or holds trunk or limbs and provides more than half the effort. 9-Kjjzowdgz-ewhrre does ALL the effort. Patient does none of the effort to complete the activity. Or, the assistance of 2 or more helpers is required for the patient to complete the activity. If activity was not attempted, code reason: 7-Patient Refused. 9-Not Applicable-not attempted and the patient did not perform the activity before the current illness, exacerbation or injury. 10-Not Attempted due to Environmental Limitations-(lack of equipment, weather restraints, etc.). 88-Not Attempted due to Medical Conditions or Safety Concerns. Other Treatment Increasing tolerance to activity w/ EOB sitting, breathing strategies for breath support and sustaining 02 above 905 Education OT Patient Education: Correct positioning, Instructions to caregiver, Modified ADL techniques, Progress toward Goal/Update tx plan, Purpose of tx/functional activities, Reviewed precautions, Rehab process, Safety issues, Transfer techniques Teaching Recipient: Patient, Family Teaching Methods: Demonstration, Discussion Response to Teaching: Verbalize Understanding, Reinforcement Needed OT Disaster Recovery Analyst Goals Halfway Goals Eating (QC): 6 Oral Hygiene (QC): 5 Toileting Hygiene (QC): 4 Shower/Bathe Self (QC): 4 Upper Body Dressing (QC): 4 Lower Body Dressing (QC): 4 On/Off Footwear (QC): 4 1=Demonstrate adherence to instructed precautions during ADL tasks. 2=Patient will verbalize/demonstrate understanding of assistive devices/modifications for ADL. 3=Patient will improve strength/tolerance for activity to enable patient to perform ADL's. OT Education/Plan Problem List/Assessment Assessment: Decreased Activ Tolerance, Decreased UE Strength, Impaired Coordination, Impaired Funct Balance, Impaired Self-Care Skills, Restricted Funct UE ROM Discharge Recommendations Plan/Recommendations: Continue POC Treatment Plan/Plan of Care Treatment,Training & Education: Yes Patient would benefit from OT for education, treatment and training to promote independence in ADL's, mobility, safety and/or upper extremity function for ADL's. Plan of Care: ADL Retraining, Functional Mobility, Group Exercise/Act as Ind, UE Funct Exercise/Act Treatment Duration: Jan 08, 2023 Frequency: 3 times per week (3-5 times per week) Estimated Hrs Per Day: .25 hour per day Agreement: Yes Rehab Potential: Fair Time Start Time: 13:40 Stop Time: 13:50 DATE: Jan 01, 2023 Total Time Billed (hr/min): 10 Billed Treatment Time FA 10 min SARAH CARATGENA OT Jan 01, 2023 14:37
[2023-01-01] MEDS ORDERED: SODIUM PHOSPHATE IV SCH ×9 (17:00)
[2023-01-01] MEDS ORDERED: SODIUM ACETATE IV SCH ×9 (17:00)
[2023-01-01] MEDS ORDERED: [UNRECOGNIZED DRUG - OTHER] IV SCH ×9 (17:00)
[2023-01-01] MEDS ORDERED: POTASSIUM CHLORIDE IV SCH ×9 (17:00)
[2023-01-01] MEDS: NOREPINEPHRINE 8 MG/250 ML 250 ML IV SCH (17:05)
--- NOTE | 2023-01-01 18:24 | Tele-ICU Progress Note ---
Subjective Date Seen by a Provider: Jan 01, 2023 Time Seen by a Provider: 09:28 Subjective/Events-last exam (Tele-ICU Physician , Progress Note ) Service provided via interactive audio and video telecommunications E-CARE system to a patient admitted to ICU bed in [facility]. Patient is seen today due to persistent need of ICU care Available chart/ vitals / labs / Images reviewed Video assessment done using teleICU camera, rest of exam as per RN Discussed with RN Events overnight : Afebrile hemodynamically stable Respiratory - 50% I/O = pos Drips: d5 LR 50 cardizem 10 Pressors- - OFF Hospital course: (12/21) 67yr old male admitted s/p Ex. Lap partial gastric resection(gastric perf). Intubated (12/22) Extubated. (12/26) pt hypoxic on bipap-Intubated, arrested after intubation w/ ROSC, CTH - WNL , CT abd- high-grade small bowel obstruction. 12/27- on levo 0.04 and vaso 0.03, Fio2 50 % , RASS -2 on propofol 30 fentanyl 50 , cardizem 5 12/28- fio2 40 % , on levo 0.04 and vaso 0.03, Fio2 50 % , RASS -2 on propofol 30 fentanyl 50 , cardizem 5 12/28- EXTUBATED - to BIPAP 12/29- NC , bipap night , OFF pressors 12/30- BIPAP til 4 am - NC 4 L , AAO, cardizem 5 , NG OFF suction --> Increased abd distention --> back on LIS 12/31- confused , BIPAP 30/09 50% 30 tv 600 MV 17 L , steroid x1 IV , started MERREM . low UO - woods replaced , DID NOT TOLERATED OFF BIPAP 01/01 - 6L o2 , TPN started A/P Acute resp failure , hypoxic ( extubated post op 12/22 --> re-intubated on 12/26--->12/28- EXTUBATED - to BIPAP - + secretions , on nebs /ICS -12/31 one dose IV steroids given - today on 6 L NC - IS : doing his best with rib Fr pain and confusion Card arrest 12/25 with ROSC 5 min ( secondary to resp failure? ) =recovered well Gastric perforation, had parital [id number] --CT 12/25 - high-grade small bowel obstruction. - NG in place - off suction 12/30 --> Increased abd distention --> back on LIS - as per sx started MERREM 12/31 Possivle PNA with patchy airspace opacity on CT ch - sputum 12/26-Klebsiella - on zosyn till 12/30 --started MERREM 12/31 Chronic a fib with RVR ( s/p dig, metoprolol prn -cardizem gtt 10 -xarelro on hold - as pr Sx and cards to resume (? Lovenox full dose - npo ) - cards follow Multiple right rib fractures. - post arrest 's CPR , no PTX - cont pain control , IS CAD -EF 40 % Pulm htn with PSAP in 50's - monitor for VO COPD -using oxygen at night, - CT with Severe emphysematous change and bullous disease - + wheezing - increase nebs frequency - add LABA/ICS - try to avoid systemic steroids , one dose 12/30 Multiple Lung infection in past -Hx of pulmonary aspergillous 2019 S/p right lung decortication on January 28, 2018 resulted in hydropneumothorax and marked emphysema and had prolonged chest tube placement. ETON abuse - not recently as per report AAA< s/p with stent in place Nutrition - NPO with SBO - follow Urinary retntion /low UP 12/31 - woods replaced Electrolites replacement Accuchecks Shock - multifactorial RESOLVED - OFF PRESSORS Lines : R IJ 12/26 , art line - removed 12/29 , (Central Line Necessity Reviewed) Woods: 12/31 Urinary retntion /low UP 12/31- woods replaced OG: Nutrition: npo Analgesia: Anxiety/ delirium VTE Prophylaxis: blake 40 Stress Ulcer Prophylaxis: ppi Plans in collaboration with bedside consultants and IM MDs. Discussed with RN to reach out if any questions or concerns Case and care daily discussed on multidisciplinary rounds ( RN, PharmD, Microcomputer Support Specialist , Respiratory Therapy, maintenance worker swimming pool ) 31 minutes of critical care time was devoted to this patient today, required to treat and/or prevent further deterioration of critical care condition ( as above ) . I am remotely monitoring this patient from another state. I am unable to do the bedside exam, and history/physical and pertinent information is taken from other notes in the computer and bedside staff. Sepsis Event Evaluation Height, Weight, BMI Height: 6'4.00" Weight: 154lbs. 2.0oz. [id number]; 22.31 BMI Method:Stated Exam Exam Patient acknowledged, consented, and participated in this virtual visit which was conducted using real time audio/video Vital Signs Date Time Temp Pulse Resp B/P (MAP) Pulse Ox O2 Delivery O2 Flow Rate FiO2 01/01/23 18:00 96 26 135/102 (113) 93 Nasal Cannula 4.00 01/01/23 17:00 120 23 126/82 (97) 90 Nasal Cannula 4.00 01/01/23 16:00 128 129/99 (109) 90 Nasal Cannula 4.00 01/01/23 15:28 92 High Flow N/C 4.00 01/01/23 15:22 36.0 01/01/23 15:00 110 24 136/74 (103) 90 Nasal Cannula 4.00 01/01/23 14:00 138 14 130/81 (97) 92 Nasal Cannula 4.00 01/01/23 13:05 113 118/70 01/01/23 13:00 100 28 118/70 (85) 97 Nasal Cannula 4.00 01/01/23 12:53 108 01/01/23 12:00 103 29 128/90 (106) 93 Nasal Cannula 4.00 01/01/23 11:51 36.1 01/01/23 11:00 124 28 130/77 (107) 94 Nasal Cannula 4.00 01/01/23 10:37 94 High Flow N/C 4.00 01/01/23 10:23 Nasal Cannula 4.00 01/01/23 10:00 129 19 125/90 (115) 94 Nasal Cannula 6.00 01/01/23 09:00 135 30 121/94 (103) 96 Nasal Cannula 6.00 01/01/23 08:30 36.5 01/01/23 08:00 110 21 91/73 (80) 96 NIV Bilevel 40.00 01/01/23 08:00 100 NIV Bilevel 40 01/01/23 07:07 107 20 99 30.00 01/01/23 07:00 96 23 117/87 (93) 100 NIV Bilevel 30.00 01/01/23 07:00 99 01/01/23 07:00 96 23 117/87 (93) 100 NIV Bilevel 40.00 01/01/23 06:00 121 21 120/68 (85) 100 NIV Bilevel 40.00 01/01/23 05:00 126 23 126/73 (90) 100 NIV Bilevel 40.00 01/01/23 04:02 100 NIV Bilevel 40 01/01/23 04:00 36.6 01/01/23 04:00 106 24 127/94 (105) 98 NIV Bilevel 40.00 01/01/23 03:00 87 20 121/77 (92) 100 NIV Bilevel 40.00 01/01/23 02:32 93 23 100 40.00 01/01/23 02:00 101 21 126/71 (89) 99 NIV Bilevel 40.00 01/01/23 01:00 91 24 117/80 (92) 100 NIV Bilevel 40.00 01/01/23 00:56 98 137/77 01/01/23 00:47 98 137/77 01/01/23 00:04 93 01/01/23 00:00 93 20 116/68 (84) 100 NIV Bilevel 40.00 12/31/22 23:55 36.7 12/31/22 23:51 97 NIV Bilevel 40 12/31/22 23:00 99 28 126/75 (92) 98 NIV Bilevel 40.00 12/31/22 22:32 NIV Bilevel 40.00 12/31/22 22:19 102 25 96 40.00 12/31/22 22:00 108 24 131/75 (93) 96 High Flow N/C 4.00 12/31/22 21:00 98 25 126/77 (93) 97 High Flow N/C 4.00 12/31/22 20:25 112 134/87 12/31/22 20:24 36.2 High Flow N/C 4.00 12/31/22 20:00 97 High Flow N/C 3.00 12/31/22 20:00 112 28 137/78 (97) 96 High Flow N/C 4.00 12/31/22 19:14 112 12/31/22 19:11 97 High Flow N/C 4.00 12/31/22 19:00 109 23 134/87 (103) 95 High Flow N/C 3.00 I & O 01/01/23 06:59 Intake Total 120 ml Output Total 1340 ml Balance -1220 ml Height & Weight Height: 6'4.00" Weight: 154lbs. 2.0oz. [id number]; 22.31 BMI Method:Stated General Appearance: No Apparent Distress, Anxious, Chronically ill HEENT: PERRL/EOMI, Normal ENT Inspection, Other (NG tube still in place) Neck: Full Range of Motion, Normal Inspection Respiratory: Chest Non Tender, No Accessory Muscle Use, No Respiratory Distress, Rhonci Cardiovascular: No Edema, No JVD, Irregularly Irregular Capillary Refill: Less Than 3 Seconds Peripheral Pulses: 2+ Dorsalis Pedis (R), 2+ Left Dors-Pedis (L), 2+ Radial Pulses (R), 2+ Radial Pulses (L) Gastrointestinal: distended (less than yesterday, possible due to being on bipap), tenderness (minimal midline) Extremity: Non Tender Neurologic/Psychiatric: Alert, Normal Mood/Affect Skin: Normal Color, Warm/Dry Lymphatic: No Adenopathy Results Lab Laboratory Tests 12/31/22 03:45 01/01/23 03:48 Assessment/Plan Assessment/Plan 1 ALEXIS MARSH MD Jan 01, 2023 18:24
[2023-01-01 22:30] VITALS: BP 147/93
[2023-01-02] MEDS: MEROPENEM 500 MG/NS 100 ML IVPB IV SCH ×8 (01:29→20:59)
[2023-01-02 04:46] LABS: BASOPHILS % (AUTO) 0 % (0-10); EOSINOPHILS % (AUTO) 0 % (0-10); HEMATOCRIT 33 % (40-54); HEMOGLOBIN 10.9 g/dL (13.3-17.7); LYMPHOCYTES # (AUTO) 1.5 10^3/uL (1.0-4.0); LYMPHOCYTES % (AUTO) 13 % (12-44); MEAN CORPUSCULAR HEMOGLOBIN 34 pg (25-34); MEAN CORPUSCULAR HGB CONC 33 g/dL (32-36); MEAN CORPUSCULAR VOLUME 104 fL (80-99); MEAN PLATELET VOLUME 10.5 fL (9.0-12.2); MONOCYTES # (AUTO) 0.8 10^3/uL (0.0-1.0); MONOCYTES % (AUTO) 7 % (0-12); NEUTROPHILS # (AUTO) 9.1 10^3/uL (1.8-7.8); NEUTROPHILS % (AUTO) 78 % (42-75); PLATELET COUNT 210 10^3/uL (130-400); WHITE BLOOD COUNT 11.7 10^3/uL (4.3-11.0)
[2023-01-02 05:09] LABS: BAND NEUTROPHILS 5 %; LYMPHOCYTES % (MANUAL) 3 %; MONOCYTES % (MANUAL) 6 %; MYELOCYTES % 4 %; NEUTROPHILS % (MANUAL) 81 %; REACTIVE LYMPHOCYTES 4 %
[2023-01-02] MEDS: MAGNESIUM 1 GM/100 ML IVPB 100 ML IV SCH (05:50)
[2023-01-02 05:55] LABS: POTASSIUM 3.6 MMOL/L (3.6-5.0)
[2023-01-02 05:56] LABS: CALCIUM 8.1 MG/DL (8.5-10.1)
[2023-01-02 06:01] LABS: CREATININE SERUM 0.74 MG/DL (0.60-1.30)
[2023-01-02 06:10] VITALS: BP 133/85
[2023-01-02] MEDS: RT-Ipratropium/Albuterol NEB 3 ML VIAL INH SCH ×3 (06:10→21:19)
[2023-01-02] MEDS: POTASSIUM CL 10MEQ/50ML IVPB 50 ML IV SCH ×5 (06:21→09:32)
[2023-01-02] MEDS: POTASSIUM CHLORIDE 20 MEQ TABLET PO SCH (06:21)
[2023-01-02] MEDS: dilTIAZem DRIP PRE-MIX 125 ML IV SCH ×2 (07:03→19:52)
--- NOTE | 2023-01-02 09:19 | Progress Note - Surgery ---
NEMESIO HODGSON 01/02/23 0919: Subjective Date Seen by a Provider: Jan 02, 2023 Time Seen by a Provider: 08:15 Subjective/Events-last exam Pt is no distress. He is still passing gas and tolerating ice chips without nausea and vomiting. Uses NC O2 during the day and BIPAP at night. WBC stable at 11.9. Review of Systems General: No Chills, No Night Sweats HEENT: No Head Aches, No Visual Changes Pulmonary: No Dyspnea, No Cough Cardiovascular: No: Chest Pain, Palpitations Gastrointestinal: No: Nausea, Vomiting, Abdominal Pain Genitourinary: No Dysuria, No Hematuria Musculoskeletal: No: neck pain, shoulder pain Neurological: No: Weakness, Numbness Objective Exam Vital Signs Date Time Temp Pulse Resp B/P (MAP) Pulse Ox O2 Delivery O2 Flow Rate FiO2 01/02/23 09:00 87 25 135/82 (97) 95 NIV Bilevel 35.00 01/02/23 08:00 112 21 140/63 (88) 93 NIV Bilevel 35.00 01/02/23 07:32 36.4 01/02/23 07:03 116 148/84 01/02/23 07:00 98 01/02/23 07:00 109 26 148/84 (110) 94 NIV Bilevel 35.00 01/02/23 06:10 105 20 95 35.00 01/02/23 06:00 98 26 133/85 (101) 94 NIV Bilevel 35.00 01/02/23 05:00 108 20 140/84 (102) 94 NIV Bilevel 35.00 01/02/23 04:00 92 NIV Bilevel 35 01/02/23 04:00 96 22 128/77 (94) 94 NIV Bilevel 35.00 01/02/23 03:00 112 8 131/83 (99) 94 NIV Bilevel 35.00 01/02/23 02:45 NIV Bilevel 35.00 01/02/23 02:00 107 9 91/79 (83) 89 NIV Bilevel 30.00 01/02/23 01:00 98 32 141/92 (108) 90 NIV Bilevel 30.00 01/02/23 00:05 35.5 01/02/23 00:04 104 01/02/23 00:00 94 25 135/85 (102) 91 NIV Bilevel 30.00 01/01/23 23:58 92 NIV Bilevel 6.00 30 01/01/23 23:29 NIV Bilevel 30.00 01/01/23 23:00 108 24 154/81 (105) 91 Nasal Cannula 6.00 01/01/23 22:30 98 23 90 30.00 01/01/23 22:00 86 26 131/77 (95) 94 Nasal Cannula 6.00 01/01/23 21:33 107 132/82 01/01/23 21:00 101 28 135/76 (95) 91 Nasal Cannula 6.00 01/01/23 20:20 92 High Flow N/C 6.00 01/01/23 20:00 102 26 140/91 (107) 91 Nasal Cannula 6.00 01/01/23 19:48 36.3 01/01/23 19:00 104 26 130/67 (88) 94 Nasal Cannula 6.00 01/01/23 18:55 97 01/01/23 18:00 96 26 135/102 (113) 93 Nasal Cannula 4.00 01/01/23 17:00 120 23 126/82 (97) 90 Nasal Cannula 4.00 01/01/23 16:00 92 High Flow N/C 6.00 01/01/23 16:00 128 129/99 (109) 90 Nasal Cannula 4.00 01/01/23 15:28 92 High Flow N/C 4.00 01/01/23 15:22 36.0 01/01/23 15:00 110 24 136/74 (103) 90 Nasal Cannula 4.00 01/01/23 14:00 138 14 130/81 (97) 92 Nasal Cannula 4.00 01/01/23 13:05 113 118/70 01/01/23 13:00 100 28 118/70 (85) 97 Nasal Cannula 4.00 01/01/23 12:53 108 01/01/23 12:00 103 29 128/90 (106) 93 Nasal Cannula 4.00 01/01/23 12:00 96 High Flow N/C 4.00 01/01/23 11:51 36.1 01/01/23 11:00 124 28 130/77 (107) 94 Nasal Cannula 4.00 01/01/23 10:37 94 High Flow N/C 4.00 01/01/23 10:23 Nasal Cannula 4.00 01/01/23 10:00 129 19 125/90 (115) 94 Nasal Cannula 6.00 I & O 01/02/23 06:59 Intake Total 2350 ml Output Total 2000 ml Balance 350 ml Capillary Refill : Less Than 3 Seconds General Appearance: No Apparent Distress, WD/WN, Chronically ill HEENT: PERRL/EOMI, Normal ENT Inspection, Other (NG tube still in place) Neck: Full Range of Motion, Normal Inspection Respiratory: Lungs Clear, No Accessory Muscle Use, No Respiratory Distress Cardiovascular: No Edema, Irregularly Irregular Peripheral Pulses: 2+ Dorsalis Pedis (R), 2+ Left Dors-Pedis (L), 2+ Radial Pulses (R), 2+ Radial Pulses (L) Gastrointestinal: soft, distended (improving), tenderness (minimal midline) Extremity: Non Tender, No Calf Tenderness, No Pedal Edema Neurologic/Psychiatric: Alert, Normal Mood/Affect Skin: Normal Color, Warm/Dry Lymphatic: No Adenopathy Results Lab Laboratory Tests 01/01/23 11:30: Glucometer 114H 01/01/23 17:27: Glucometer 96 01/02/23 00:06: Glucometer 122H 01/02/23 04:35: White Blood Count 11.7H, Red Blood Count 3.18L, Hemoglobin 10.9L, Hematocrit 33L , Mean Corpuscular Volume 104H, Mean Corpuscular Hemoglobin 34, Mean Corpuscular Hemoglobin Concent 33, Red Cell Distribution Width 14.6H, Platelet Count 210, Mean Platelet Volume 10.5, Immature Granulocyte % (Auto) 2, Neutrophils (%) (Auto) 78H, Lymphocytes (%) (Auto) 13, Monocytes (%) (Auto) 7, Eosinophils (%) (Auto) 0, Basophils (%) (Auto) 0, Neutrophils # (Auto) 9.1H, Lymphocytes # (Auto) 1.5, Monocytes # (Auto) 0.8, Eosinophils # (Auto) 0.0, Basophils # (Auto) 0.0, Immature Granulocyte # (Auto) 0.3H, Neutrophils % (Manual) 81, Lymphocytes % (Manual) 3, Monocytes % (Manual) 6, Myelocytes % 4, Band Neutrophils 5, Reactive Lymphocytes 4, Macrocytosis SLIGHT, Sodium Level 142, Potassium Level 3.6, Chloride Level 108H, Carbon Dioxide Level 28, Anion Gap 6, Blood Urea Nitrogen 15, Creatinine 0.74, Estimat Glomerular Filtration Rate 99, BUN/Cr eatinine Ratio 20, Glucose Level 103, Calcium Level 8.1L, Magnesium Level 2.1 Microbiology 12/26/22 Gram Stain - Final, Complete 12/26/22 Sputum Culture - Final, Complete Klebsiella pneumoniae Assessment/Plan Assessment/Plan Assessment/Plan S/P Ex lap with partial gastric resection S/P Respiratory Arrest Gastric Distention Ileus Monitor blood pressure- stable abdomen is distended less today, most likely due to being off bipap continue to monitor. NG decompression tube clamped. Tolerating ice chips w/o nausea or vomiting. Advance to clear liquids Incentive spirometer Meropenem TPN for nutrition. wbc improving urine output [id number] in BRYON DAVIS DO 01/02/23 1709: Subjective Subjective/Events-last exam Passing flatus. Tolerating ice chips. Breathing still an issue. Fatigued. WBC 11.9 TPN. Denies n/v fever sweats chills or chest pain. Objective Exam General Appearance: No Apparent Distress, Chronically ill HEENT: PERRL/EOMI, Normal ENT Inspection, Other (NG tube still in place) Neck: Full Range of Motion, Normal Inspection Respiratory: Chest Non Tender, No Accessory Muscle Use Cardiovascular: No Edema, Irregularly Irregular Gastrointestinal: soft, distended (slightly more this evening), tenderness (minimal midline) Extremity: Non Tender, No Calf Tenderness Neurologic/Psychiatric: Alert, Oriented x3 Skin: Normal Color, Warm/Dry Lymphatic: No Adenopathy Assessment/Plan Assessment/Plan Assessment/Plan S/P Ex lap with partial gastric resection S/P Respiratory Arrest Gastric Distention Ileus Monitor blood pressure- stable abdomen is distended more after liquids today, will get KUB In AM NG decompression tube clamped. advance diet when he tolerates without distention. Incentive spirometer Meropenem TPN for nutrition. urine output [id number] in Supervisory-Addendum Brief Verification & Attestation Participated in pt care: history, MDM, physical Personally performed: exam, history, MDM, supervision of care Care discussed with: Medical Student Procedures: n/a Results interpretation: Verified all documentation Verification and Attestation of Medical Student E/M Service A medical student performed and documented this service in my presence. I reviewed and verified all information documented by the medical student and made modifications to such information, when appropriate. I personally performed the physical exam and medical decision making. Bryon Davis, Jan 02, 2023,17:09 NEMESIO HODGSON Jan 02, 2023 09:19 BRYON DAVIS DO Jan 02, 2023 17:09
[2023-01-02] MEDS: PANTOPRAZOLE INJECTION 40 MG VIAL IV SCH ×2 (09:24→20:59)
--- NOTE | 2023-01-02 09:38 | Progress Note ---
RUDDY COPE MD, RESIDENT 01/02/23 0938: Subjective HPI/CC On Admission Date Seen by Provider: Jan 02, 2023 Time Seen by Provider: 07:15 67 yo male admitted after coming to ER with abdominal pain and having CT that showed large free air in abdomen. He underwent exploratory laparoscopy and found to have gastric perforation and partial gastrectomy was done last night. This morning he is still intubated, is alert but unable to give history due to ventilator status. Subjective/Events-last exam Patient is doing well this morning. Was on BiPAP when I was speaking to him but wanted the BiPAP taken off. He states that the pain is overall continuing to get better. He is hopeful that he will get the NG tube out at some point today but states that his belly appears less distended compared to yesterday. He otherwise has no concerns today. Review of Systems General: No Fatigue HEENT: No Head Aches Pulmonary: No Dyspnea, No Cough Cardiovascular: No: Chest Pain, Palpitations, Edema Gastrointestinal: No: Nausea, Vomiting, Diarrhea, Constipation Genitourinary: No Dysuria Objective Exam Vital Signs Vital Signs Date Time Temp Pulse Resp B/P (MAP) Pulse Ox O2 Delivery O2 Flow Rate FiO2 01/02/23 09:00 87 25 135/82 (97) 95 NIV Bilevel 35.00 01/02/23 07:32 36.4 01/02/23 04:00 35 Capillary Refill : Less Than 3 Seconds General Appearance: No Apparent Distress HEENT: Normal ENT Inspection Neck: Full Range of Motion, Normal Inspection Respiratory: Chest Non Tender, No Accessory Muscle Use, No Respiratory Distress, Rhonci Cardiovascular: No Edema, No Murmur, Irregularly Irregular, Tachycardia Gastrointestinal: Normal Bowel Sounds, Non Tender, Soft, Distended (Mild), Other (Midline incision with delbert) Extremity: No Pedal Edema Neurologic/Psychiatric: Alert, Oriented x3 Skin: Normal Color, Warm/Dry Results/Procedures Lab Laboratory Tests 01/02/23 04:35 Patient resulted labs reviewed. Assessment/Plan Assessment and Plan Assess & Plan/Chief Complaint 67-year-old male presenting with abdominal pain status post exploratory laparotomy. Required intubation on 12/26 with CPR performed shortly afterwards prior to achieving ROSC. Patient successfully extubated on 12/28. Continues to remain stable this morning. Chronic resp failure, post-code - Successfully extubated on 12/28 - CT chest from 12/26 notable for severe emphysematous change and bullous disease with patchy airspace opacity which may be due to pneumonia or edema. - Sputum culture growing rare gram-negative rods -Continue IV meropenem. Mild leukocytosis bumped this morning, recommend monitoring at this time -Continue BiPAP as needed overnight however goal is to keep patient on 4 L nasal cannula - MAT protocol Shock, mixed - Resolved -Continues to do well off of pressors Rib pain, improving - Secondary to chest compressions -Continues to improve Atrial fibrillation - Continue diltiazem drip 5 mg/hr - Cardiology following, appreciate recommendations SBO -NG tube still in place. NG tube unclamped yesterday due to abdominal distention. Abdominal distention appears much improved this morning with some output from the NG. -TPN started yesterday -Recommend clears if tolerated per surgery -NG tube removal per surgery -PT/OT following, patient will likely need SNF placement after discharge Gastric perforation s/p partial gastrectomy -CT abdomen from 12/26 notable for marked distention of the stomach and proximal small bowel concerning for high-grade small bowel obstruction. Similar prior pneumoperitoneum -Surgery following, appreciate recommendations Alcoholism - CIWA protocol - Recommend discontinuing CIWA protocol Hypertension -Holding home medications due to hypotensive episodes COPD -On 4 L oxygen at baseline -Wean oxygen as tolerated STAR KUMARI DO 01/02/234: Subjective Subjective/Events-last exam Doing about the same BiPAP at night Cardizem drip Review of Systems General: Fatigue, Malaise Objective Exam General Appearance: No Apparent Distress, WD/WN, Chronically ill Respiratory: Lungs Clear, Normal Breath Sounds Cardiovascular: Irregularly Irregular, Tachycardia Assessment/Plan Assessment and Plan Assess & Plan/Chief Complaint BIPAP HTN RUDDY COPE MD, RESIDENT Jan 02, 2023 09:38 STAR KUMARI DO Jan 02, 2023 19:14
[2023-01-02] MEDS: FLUTICASONE/VILANTEROL 200/25 MCG (14 DOSES) IH SCH (10:20)
[2023-01-02] MEDS ORDERED: DIGOXIN INJECTION 0.25 MG/ML 2 ML AMPULE IV ONE (10:45)
--- NOTE | 2023-01-02 12:01 | Tele-ICU Progress Note ---
Subjective Date Seen by a Provider: Jan 02, 2023 Time Seen by a Provider: 08:15 Subjective/Events-last exam (Tele-ICU Physician , Progress Note ) Service provided via interactive audio and video telecommunications E-CARE system to a patient admitted to ICU bed in [facility]. Patient is seen today due to persistent need of ICU care Available chart/ vitals / labs / Images reviewed Video assessment done using teleICU camera, rest of exam as per RN 67 yr old male admitted with abdominal pain and found to free air in abdomen. underwent exploratory lap and found to have gastric perforation. had partial gastrectomy done. Extubated on 12/22/22. on n/c. RN reports chest congestion. CXR ordered still awating dewayne done 12/24/22. sice yesterday pt had more chest congestion and increased WOB. Now requiring 10-12l o2 via n/c. he has underlying copd with hx of complex pneumonias complicated requiring decortication and prolonged chest tube insertion. 12/25/22 He remained on bipap but fio2 devreased to 45%. Hr fluctuating between 105-130's CXR showing left basilar infiltrate. Rt side infiltrate improved. no fever. 12/29/22.He was reintubated on 10/16/2022 because of respiratory distress and hypoxia. He had a massive intestinal ileus for which an NG tube was inserted and put on a suction. He is a subsequently extubated on 12/28/2022. Currently he is on 8 L of nasal cannula and oxygenating well without any distress. As per [employer] his abdomen is distention is somewhat improved and less tense. He had a CT of the abdomen and pelvis which did not show any evidence of recurrent perforation but does have a intestinal ileus. NG tube currently on a low intermittent suction. 01/02/23. Today earlier he was on a BiPAP ventilation but subsequently weaned down to 6 L of nasal cannula. NG tube is clamped. He is currently on TPN. Urine output last night is 1300 cc.'s sputum grew Klebsiella pneumonia. Abdomen is still distended per [employer]. impression. 1. gastric perforation s/p ex lap and partial gastrectomy. 2. Afib with RVR on cardizem drip. 3. previous hx of aspergillosis s/p prolonged hospitalisation at . 4. Alcohol abuse history. 5. Acute Hypoxic respiratory failure due to pneumonia and copd 6. s/p cardio respiratory arrest requring cpr with ROSC. 7. Rib fractures with pain due to cpr Recomemdations. 1. Continue oxygen with N/C 2. Cardizem per cardiology. 3. IV antibiotics 4. DVT prophylaxis 5. Bronchiolar therapy 6. iv lasix prn 7.NGT management per Gen. Surg Coordination of care with primary care physician and bedside consultants. I am remotely monitoring this patient from Tele icu station in [place]. I am unable to do the bedside exam, and history/physical and pertinent information is taken from other notes in the computer and bedside staff. Certain portions of this document may have been dictated utilizing voice recognition technology such as [employer]. Inherent to this technology, typographical and grammatical errors may exist. As much as I am diligent to identify and correct to these mistakes, some errors may remain in the document. Critical care time devoted to this patient today is approximately is-20 minutes. Sepsis Event Evaluation Height, Weight, BMI Height: 6'4.00" Weight: 154lbs. 2.0oz. 69.058822qt; 22.31 BMI Method:Stated Exam Exam Patient acknowledged, consented, and participated in this virtual visit which was conducted using real time audio/video Vital Signs Date Time Temp Pulse Resp B/P (MAP) Pulse Ox O2 Delivery O2 Flow Rate FiO2 01/02/23 11:26 36.7 01/02/23 11:00 94 27 136/81 (105) 93 NIV Bilevel 35.00 01/02/23 10:00 93 23 142/96 (109) 95 NIV Bilevel 35.00 01/02/23 09:00 87 25 135/82 (97) 95 NIV Bilevel 35.00 01/02/23 08:00 96 NIV Bilevel 35 01/02/23 08:00 112 21 140/63 (88) 93 NIV Bilevel 35.00 01/02/23 07:32 36.4 01/02/23 07:03 116 148/84 01/02/23 07:00 98 01/02/23 07:00 109 26 148/84 (110) 94 NIV Bilevel 35.00 01/02/23 06:10 105 20 95 35.00 01/02/23 06:00 98 26 133/85 (101) 94 NIV Bilevel 35.00 01/02/23 05:00 108 20 140/84 (102) 94 NIV Bilevel 35.00 01/02/23 04:00 92 NIV Bilevel 35 01/02/23 04:00 96 22 128/77 (94) 94 NIV Bilevel 35.00 01/02/23 03:00 112 8 131/83 (99) 94 NIV Bilevel 35.00 01/02/23 02:45 NIV Bilevel 35.00 01/02/23 02:00 107 9 91/79 (83) 89 NIV Bilevel 30.00 01/02/23 01:00 98 32 141/92 (108) 90 NIV Bilevel 30.00 01/02/23 00:05 35.5 01/02/23 00:04 104 01/02/23 00:00 94 25 135/85 (102) 91 NIV Bilevel 30.00 01/01/23 23:58 92 NIV Bilevel 6.00 30 01/01/23 23:29 NIV Bilevel 30.00 01/01/23 23:00 108 24 154/81 (105) 91 Nasal Cannula 6.00 01/01/23 22:30 98 23 90 30.00 01/01/23 22:00 86 26 131/77 (95) 94 Nasal Cannula 6.00 01/01/23 21:33 107 132/82 01/01/23 21:00 101 28 135/76 (95) 91 Nasal Cannula 6.00 01/01/23 20:20 92 High Flow N/C 6.00 01/01/23 20:00 102 26 140/91 (107) 91 Nasal Cannula 6.00 01/01/23 19:48 36.3 01/01/23 19:00 104 26 130/67 (88) 94 Nasal Cannula 6.00 01/01/23 18:55 97 01/01/23 18:00 96 26 135/102 (113) 93 Nasal Cannula 4.00 01/01/23 17:00 120 23 126/82 (97) 90 Nasal Cannula 4.00 01/01/23 16:00 92 High Flow N/C 6.00 01/01/23 16:00 128 129/99 (109) 90 Nasal Cannula 4.00 01/01/23 15:28 92 High Flow N/C 4.00 01/01/23 15:22 36.0 01/01/23 15:00 110 24 136/74 (103) 90 Nasal Cannula 4.00 01/01/23 14:00 138 14 130/81 (97) 92 Nasal Cannula 4.00 01/01/23 13:05 113 118/70 01/01/23 13:00 100 28 118/70 (85) 97 Nasal Cannula 4.00 01/01/23 12:53 108 01/01/23 12:00 103 29 128/90 (106) 93 Nasal Cannula 4.00 01/01/23 12:00 96 High Flow N/C 4.00 I & O 01/02/23 06:59 Intake Total 2350 ml Output Total 2000 ml Balance 350 ml Height & Weight Height: 6'4.00" Weight: 154lbs. 2.0oz. [id number]; 22.31 BMI Method:Stated General Appearance: No Apparent Distress HEENT: Normal ENT Inspection Neck: Full Range of Motion, Normal Inspection Respiratory: Chest Non Tender, No Accessory Muscle Use, No Respiratory Distress, Rhonci Cardiovascular: No Edema, No Murmur, Irregularly Irregular, Tachycardia Capillary Refill: Less Than 3 Seconds Peripheral Pulses: 2+ Dorsalis Pedis (R), 2+ Left Dors-Pedis (L), 2+ Radial Pulses (R), 2+ Radial Pulses (L) Gastrointestinal: soft, distended (improving), tenderness (minimal midline) Extremity: No Pedal Edema Neurologic/Psychiatric: Alert, Oriented x3 Skin: Normal Color, Warm/Dry Lymphatic: No Adenopathy Results Lab Laboratory Tests 01/01/23 03:48 01/02/23 04:35 Assessment/Plan Assessment/Plan as above Critical Care: Critically Ill Patient Time spent with patient (mins): 20 ALIX BENTLEY MD Jan 02, 2023 12:01
[2023-01-02] MEDS: ENOXAPARIN 40 MG/0.4 ML SYRINGE SC SCH (12:32)
--- NOTE | 2023-01-02 13:20 | Cardiology Progress Note ---
Subjective Date Seen by Provider: Jan 02, 2023 Time Seen by Provider: 13:15 Subjective/Events-last exam Patient was extubated. Feels better. Still has NG tube. Hemodynamically stable. In atrial fibrillation the rate controlled Review of Systems General: No Chills, No Night Sweats, No Fatigue, No Malaise, No Appetite, No Other HEENT: No Head Aches, No Visual Changes, No Eye Pain, No Ear Pain, No Dysphasia, No Sinus Congestion, No Post Nasal Drip, No Sore Throat, No Other Pulmonary: No Dyspnea, No Cough, No Pleuritic Chest Pain, No Other Cardiovascular: No: Chest Pain, Palpitations, Orthopnea, Paroxysmal Noc. Dyspnea, Edema, Lt Headedness, Other Gastrointestinal: Abdominal Pain Genitourinary: No Dysuria, No Frequency, No Incontinence, No Hematuria, No Retention, No Other Musculoskeletal: No: other, neck pain, shoulder pain, arm pain, back pain, hand pain, leg pain, foot pain Exam Vital Signs Vital Signs Date Time Temp Pulse Resp B/P (MAP) Pulse Ox O2 Delivery O2 Flow Rate FiO2 01/02/23 13:00 86 24 144/80 (105) 94 NIV Bilevel 35.00 01/02/23 11:26 36.7 01/02/23 08:00 35 Physical Exam Alert oriented. Neck supple, no JVD. NG tube in place. Lungs: Clear anteriorly. Heart: S1-S2, distant sound, irregular rhythm, no murmurs. Abdomen: Soft, mildly distended, appropriate tenderness. Extremities no edema Labs Laboratory Tests Test 01/01/23 17:27 01/02/23 00:06 01/02/23 04:35 01/02/23 11:32 Range/Units Glucometer 96 122 H 101 70-110 MG/DL White Blood Count 11.7 H 4.3-11.0 10^3/uL Red Blood Count 3.18 L 4.30-5.52 10^6/uL Hemoglobin 10.9 L 13.3-17.7 g/dL Hematocrit 33 L 40-54 % Mean Corpuscular Volume 104 H 80-99 fL Mean Corpuscular Hemoglobin 34 25-34 pg Mean Corpuscular Hemoglobin Concent 33 32-36 g/dL Red Cell Distribution Width 14.6 H 10.0-14.5 % Platelet Count 210 130-400 10^3/uL Mean Platelet Volume 10.5 9.0-12.2 fL Immature Granulocyte % (Auto) 2 % Neutrophils (%) (Auto) 78 H 42-75 % Lymphocytes (%) (Auto) 13 12-44 % Monocytes (%) (Auto) 7 0-12 % Eosinophils (%) (Auto) 0 0-10 % Basophils (%) (Auto) 0 0-10 % Neutrophils # (Auto) 9.1 H 1.8-7.8 10^3/uL Lymphocytes # (Auto) 1.5 1.0-4.0 10^3/uL Monocytes # (Auto) 0.8 0.0-1.0 10^3/uL Eosinophils # (Auto) 0.0 0.0-0.3 10^3/uL Basophils # (Auto) 0.0 0.0-0.1 10^3/uL Immature Granulocyte # (Auto) 0.3 H 0.0-0.1 10^3/uL Neutrophils % (Manual) 81 % Lymphocytes % (Manual) 3 % Monocytes % (Manual) 6 % Myelocytes % 4 % Band Neutrophils 5 % Reactive Lymphocytes 4 % Macrocytosis SLIGHT Sodium Level 142 135-145 MMOL/L Potassium Level 3.6 3.6-5.0 MMOL/L Chloride Level 108 H 98-107 MMOL/L Carbon Dioxide Level 28 21-32 MMOL/L Anion Gap 6 5-14 MMOL/L Blood Urea Nitrogen 15 7-18 MG/DL Creatinine 0.74 0.60-1.30 MG/DL Estimat Glomerular Filtration Rate 99 BUN/Creatinine Ratio 20 Glucose Level 103 70-105 MG/DL Calcium Level 8.1 L 8.5-10.1 MG/DL Phosphorus Level 2.7 2.3-4.7 MG/DL Magnesium Level 2.1 1.6-2.4 MG/DL A/P-Cardiology Admission Diagnosis Acute abdomen Acute respiratory failure Coronary artery disease Permanent atrial fibrillation Assessment/Plan Status post acute respiratory failure, extubated Managed by critical care team Status post cardiac arrest: Has been stable. Continue to monitor Status post acute abdomen, gastric perforation, status post exploratory laparotomy done on December 21, 2022 Improving Managed by surgical team. Continue to monitor Chronic permanent atrial fibrillation, Heart rate is better controlled, maintained on Cardizem drip Coronary artery disease, history of stenting using 3.020 mm Promus stent to the right coronary artery done in March 2012. Patient was scheduled for [facility] on December 23, 2022 as outpatient. Will postpone at this time. COPD, using oxygen at night, had a complex hospitalization with Legionella pneumonia and CMV, respiratory failure, multiple cardiac arrest in October 2017. loculated pneumonia underwent right lung decortication on January 28, 2018 resulted in hydropneumothorax and marked emphysema and had prolonged chest tube placement. History of congestive heart failure, chronic left ventricular systolic dysfunction. Last echocardiogram done in June 2022 with ejection fraction 50 to 55%, pulmonary hypertension with PA pressure 50 to 55 mmHg Continue present therapy Heavy alcoholism, managed by primary care physician Abdominal aortic aneurysm, had a stent placed by Dr. Hogue done in June 2021. Hypertension: Blood pressure controlled, continue to monitor. Hyperlipidemia, continue to monitor lipids LOLA Healy DMITRY MD Jan 02, 2023 13:20
[2023-01-02] MEDS: NOREPINEPHRINE 8 MG/250 ML 250 ML IV SCH (13:45)
[2023-01-02] MEDS ORDERED: POTASSIUM CHLORIDE IV SCH ×9 (17:00)
[2023-01-02] MEDS ORDERED: SODIUM ACETATE IV SCH ×9 (17:00)
[2023-01-02] MEDS ORDERED: [UNRECOGNIZED DRUG - OTHER] IV SCH ×9 (17:00)
[2023-01-02] MEDS: LACTATED RINGERS 1,000 ML 1,000 ML IV SCH (17:00)
[2023-01-02] MEDS ORDERED: SODIUM PHOSPHATE IV SCH ×9 (17:00)
--- NOTE | 2023-01-02 20:51 | Tele-ICU Progress Note ---
Subjective Date Seen by a Provider: Jan 02, 2023 Time Seen by a Provider: 20:48 Subjective/Events-last exam pt requests meds for sleep Will give melatonin 3 mg Sepsis Event Evaluation Height, Weight, BMI Height: 6'4.00" Weight: 154lbs. 2.0oz. [id number]; 22.31 BMI Method:Stated Exam Exam Patient acknowledged, consented, and participated in this virtual visit which was conducted using real time audio/video Vital Signs Date Time Temp Pulse Resp B/P (MAP) Pulse Ox O2 Delivery O2 Flow Rate FiO2 01/02/23 20:00 102 10 139/84 (102) 93 High Flow N/C 6.00 01/02/23 19:52 104 138/87 01/02/23 19:30 104 01/02/23 19:00 104 33 138/87 (104) 95 High Flow N/C 6.00 01/02/23 18:00 105 28 146/91 (124) 95 High Flow N/C 6.00 01/02/23 17:00 100 29 154/94 (107) 93 High Flow N/C 6.00 01/02/23 16:00 91 High Flow N/C 6.00 01/02/23 16:00 95 32 144/94 (119) 93 High Flow N/C 6.00 01/02/23 15:04 93 High Flow N/C 6.00 01/02/23 15:00 95 29 143/84 (109) 94 NIV Bilevel 35.00 01/02/23 14:00 91 22 142/82 (99) 93 NIV Bilevel 35.00 01/02/23 13:00 86 24 144/80 (105) 94 NIV Bilevel 35.00 01/02/23 12:27 105 01/02/23 12:00 94 High Flow N/C 6.00 01/02/23 12:00 105 32 145/84 (95) 94 NIV Bilevel 35.00 01/02/23 11:26 36.7 01/02/23 11:00 94 27 136/81 (105) 93 NIV Bilevel 35.00 01/02/23 10:00 93 23 142/96 (109) 95 NIV Bilevel 35.00 01/02/23 09:00 87 25 135/82 (97) 95 NIV Bilevel 35.00 01/02/23 08:00 96 NIV Bilevel 35 01/02/23 08:00 112 21 140/63 (88) 93 NIV Bilevel 35.00 01/02/23 07:32 36.4 01/02/23 07:03 116 148/84 01/02/23 07:00 98 01/02/23 07:00 109 26 148/84 (110) 94 NIV Bilevel 35.00 01/02/23 06:10 105 20 95 35.00 01/02/23 06:00 98 26 133/85 (101) 94 NIV Bilevel 35.00 01/02/23 05:00 108 20 140/84 (102) 94 NIV Bilevel 35.00 01/02/23 04:00 92 NIV Bilevel 35 01/02/23 04:00 96 22 128/77 (94) 94 NIV Bilevel 35.00 01/02/23 03:00 112 8 131/83 (99) 94 NIV Bilevel 35.00 01/02/23 02:45 NIV Bilevel 35.00 01/02/23 02:00 107 9 91/79 (83) 89 NIV Bilevel 30.00 01/02/23 01:00 98 32 141/92 (108) 90 NIV Bilevel 30.00 01/02/23 00:05 35.5 01/02/23 00:04 104 01/02/23 00:00 94 25 135/85 (102) 91 NIV Bilevel 30.00 01/01/23 23:58 92 NIV Bilevel 6.00 30 01/01/23 23:29 NIV Bilevel 30.00 01/01/23 23:00 108 24 154/81 (105) 91 Nasal Cannula 6.00 01/01/23 22:30 98 23 90 30.00 01/01/23 22:00 86 26 131/77 (95) 94 Nasal Cannula 6.00 01/01/23 21:33 107 132/82 01/01/23 21:00 101 28 135/76 (95) 91 Nasal Cannula 6.00 I & O 01/02/23 06:59 Intake Total 2350 ml Output Total 2100 ml Balance 250 ml Height & Weight Height: 6'4.00" Weight: 154lbs. 2.0oz. 69.059121pd; 22.31 BMI Method:Stated General Appearance: No Apparent Distress, WD/WN, Chronically ill HEENT: PERRL/EOMI, Normal ENT Inspection, Other (NG tube still in place) Neck: Full Range of Motion, Normal Inspection Respiratory: Lungs Clear, Normal Breath Sounds Cardiovascular: Irregularly Irregular, Tachycardia Capillary Refill: Less Than 3 Seconds Peripheral Pulses: 2+ Dorsalis Pedis (R), 2+ Left Dors-Pedis (L), 2+ Radial Pulses (R), 2+ Radial Pulses (L) Gastrointestinal: soft, distended (slightly more this evening), tenderness (minimal midline) Extremity: Non Tender, No Calf Tenderness Neurologic/Psychiatric: Alert, Oriented x3 Skin: Normal Color, Warm/Dry Lymphatic: No Adenopathy Results Lab Laboratory Tests 01/01/23 03:48 01/02/23 04:35 Assessment/Plan Assessment/Plan pt requests meds for sleep Will give melatonin 3 mg Critical Care: Critically Ill Patient Time spent with patient (mins): VIGNESH GILL MD Jan 02, 2023 20:50
[2023-01-02] MEDS: MELATONIN 3 MG TABLET PO SCH (20:59)
[2023-01-02 21:17] VITALS: BP 153/84
[2023-01-03] MEDS: MEROPENEM 500 MG/NS 100 ML IVPB IV SCH ×8 (01:50→20:40)
[2023-01-03 05:23] LABS: BASOPHILS % (AUTO) 0 % (0-10); EOSINOPHILS # (AUTO) 0.1 10^3/uL (0.0-0.3); EOSINOPHILS % (AUTO) 1 % (0-10); HEMATOCRIT 34 % (40-54); HEMOGLOBIN 11.1 g/dL (13.3-17.7); LYMPHOCYTES % (AUTO) 12 % (12-44); MEAN CORPUSCULAR HEMOGLOBIN 34 pg (25-34); MEAN CORPUSCULAR HGB CONC 33 g/dL (32-36); MEAN CORPUSCULAR VOLUME 105 fL (80-99); MEAN PLATELET VOLUME 10.5 fL (9.0-12.2); MONOCYTES # (AUTO) 0.6 10^3/uL (0.0-1.0); MONOCYTES % (AUTO) 7 % (0-12); NEUTROPHILS # (AUTO) 6.4 10^3/uL (1.8-7.8); NEUTROPHILS % (AUTO) 78 % (42-75); PLATELET COUNT 183 10^3/uL (130-400); WHITE BLOOD COUNT 8.3 10^3/uL (4.3-11.0)
[2023-01-03 05:37] LABS: POTASSIUM 4.4 MMOL/L (3.6-5.0)
[2023-01-03 05:39] LABS: CALCIUM 7.9 MG/DL (8.5-10.1)
[2023-01-03 05:43] LABS: CREATININE SERUM 0.69 MG/DL (0.60-1.30); PHOSPHORUS 3.3 MG/DL (2.3-4.7)
[2023-01-03 05:46] LABS: MAGNESIUM 1.9 MG/DL (1.6-2.4)
[2023-01-03 06:00] LABS: BAND NEUTROPHILS 3 %; EOSINOPHILS % (MANUAL) 2 %; LYMPHOCYTES % (MANUAL) 10 %; MONOCYTES % (MANUAL) 5 %; MYELOCYTES % 2 %; NEUTROPHILS % (MANUAL) 76 %; REACTIVE LYMPHOCYTES 2 %
[2023-01-03] MEDS: MAGNESIUM 1 GM/100 ML IVPB 100 ML IV SCH (06:00)
[2023-01-03] MEDS: dilTIAZem DRIP PRE-MIX 125 ML IV SCH ×2 (06:06→17:55)
[2023-01-03] MEDS: POTASSIUM CL 10MEQ/50ML IVPB 50 ML IV SCH (06:19)
[2023-01-03] MEDS: POTASSIUM CHLORIDE 20 MEQ TABLET PO SCH (06:20)
[2023-01-03] MEDS: RT-Ipratropium/Albuterol NEB 3 ML VIAL INH SCH ×3 (06:37→22:48)
[2023-01-03] MEDS: FLUTICASONE/VILANTEROL 200/25 MCG (14 DOSES) IH SCH (06:37)
[2023-01-03] MEDS: TIOTROPIUM INH 4 GM (SPIRIVA Respimat) IH SCH (06:38)
--- NOTE | 2023-01-03 08:32 | Diagnostic Imaging Report ---
INDICATION: Respiratory failure. Study compared 12/31/2022 FINDINGS: There is chronic emphysematous lung disease present. The more acute basilar infiltrates greater left, however, have improved. No pneumothorax. No significant residual pleural fluid. IMPRESSION: 1. Resolving infiltrates and pleural fluid with background COPD and no adverse interval change. 2. OG extends into the stomach. There is a loop within the cervical esophageal segment. Dictated by: Dictated on workstation # [id number]
--- NOTE | 2023-01-03 08:35 | Diagnostic Imaging Report ---
Indication: Bowel distention, evaluate for retained contrast. Findings: There is no residual large or small bowel contrast media. There is an aortobiiliac stent graft device present and an OG in the stomach. There is some gaseous dilatation of the bowel unchanged in maximal magnitude but appears less diffuse and extensive than on prior favored to be a generalized ileus showing slight improvement. No abnormal fecal loading. Impression: Slight improvements in gaseous bowel dilatation, evacuation of prior contrast media. No adverse development. Dictated by: Dictated on workstation # [id number]
[2023-01-03] MEDS: PANTOPRAZOLE INJECTION 40 MG VIAL IV SCH ×2 (08:59→20:40)
--- NOTE | 2023-01-03 09:22 | Progress Note - Surgery ---
NEMESIO HODGSON 01/03/23 0922: Subjective Date Seen by a Provider: Jan 03, 2023 Time Seen by a Provider: 08:15 Subjective/Events-last exam Pt is laying comfortable in bed with minimal right sided rib pain. Abdomen is mildly distended, but soft. Pt is tolerating clear liquids w/o nausea or vomiting. Pt had BM yesterday and feels the urge to go this morning. WBC is 9.0 today down from 11.9 yesterday. Urine output is 2.05ml/kg/hr Review of Systems General: No Chills, No Night Sweats HEENT: No Head Aches, No Visual Changes Pulmonary: No Dyspnea; Cough Cardiovascular: Chest Pain (right sided rib pain); No: Palpitations Gastrointestinal: No: Nausea, Vomiting Genitourinary: No Dysuria, No Hematuria Musculoskeletal: No: neck pain, shoulder pain Neurological: No: Weakness, Numbness Objective Exam Vital Signs Date Time Temp Pulse Resp B/P (MAP) Pulse Ox O2 Delivery O2 Flow Rate FiO2 01/03/23 09:00 90 27 146/98 (116) 94 High Flow N/C 6.00 01/03/23 08:04 36.3 01/03/23 08:00 75 30 137/81 (107) 95 High Flow N/C 6.00 01/03/23 07:00 87 01/03/23 07:00 86 28 140/83 (102) 94 High Flow N/C 6.00 01/03/23 06:38 96 High Flow N/C 6.00 01/03/23 06:06 80 119/78 01/03/23 06:00 High Flow N/C 6.00 01/03/23 06:00 84 26 143/85 (104) 96 NIV Bilevel 40.00 01/03/23 05:00 80 21 119/78 (92) 95 NIV Bilevel 40.00 01/03/23 04:00 88 24 148/83 (104) 95 NIV Bilevel 40.00 01/03/23 04:00 91 NIV Bilevel 35 01/03/23 03:21 82 18 95 35.00 01/03/23 03:00 100 29 130/83 (99) 95 NIV Bilevel 40.00 01/03/23 02:00 80 7 125/81 (96) 90 NIV Bilevel 40.00 01/03/23 01:00 76 17 142/86 (104) 90 NIV Bilevel 40.00 01/03/23 00:14 36.2 01/03/23 00:01 98 01/03/23 00:00 93 30 146/87 (106) 90 NIV Bilevel 40.00 01/02/23 23:59 91 NIV Bilevel 35 01/02/23 23:00 93 7 138/82 (100) 90 NIV Bilevel 40.00 01/02/23 22:00 87 28 148/88 (108) 94 NIV Bilevel 40.00 01/02/23 21:20 NIV Bilevel 40.00 01/02/23 21:17 86 22 94 35.00 01/02/23 21:00 101 28 144/87 (106) 95 High Flow N/C 6.00 01/02/23 20:00 36.5 01/02/23 20:00 102 10 139/84 (102) 93 High Flow N/C 6.00 01/02/23 20:00 91 High Flow N/C 6.00 01/02/23 19:52 104 138/87 01/02/23 19:30 104 01/02/23 19:00 104 33 138/87 (104) 95 High Flow N/C 6.00 01/02/23 18:00 105 28 146/91 (124) 95 High Flow N/C 6.00 01/02/23 17:00 100 29 154/94 (107) 93 High Flow N/C 6.00 01/02/23 16:00 91 High Flow N/C 6.00 01/02/23 16:00 95 32 144/94 (119) 93 High Flow N/C 6.00 01/02/23 15:04 93 High Flow N/C 6.00 01/02/23 15:00 95 29 143/84 (109) 94 NIV Bilevel 35.00 01/02/23 14:00 91 22 142/82 (99) 93 NIV Bilevel 35.00 01/02/23 13:00 86 24 144/80 (105) 94 NIV Bilevel 35.00 01/02/23 12:27 105 01/02/23 12:00 94 High Flow N/C 6.00 01/02/23 12:00 105 32 145/84 (95) 94 NIV Bilevel 35.00 11/18/23 11:26 36.7 01/02/23 11:00 94 27 136/81 (105) 93 NIV Bilevel 35.00 01/02/23 10:00 93 23 142/96 (109) 95 NIV Bilevel 35.00 I & O 01/03/23 06:59 Intake Total 2775 ml Output Total 3925 ml Balance -1150 ml Capillary Refill : Less Than 3 Seconds General Appearance: No Apparent Distress, WD/WN, Chronically ill HEENT: PERRL/EOMI, Normal ENT Inspection, Other (NG tube still in place) Neck: Full Range of Motion, Normal Inspection Respiratory: Lungs Clear, Normal Breath Sounds, No Respiratory Distress Cardiovascular: No Edema, Irregularly Irregular, Tachycardia Peripheral Pulses: 2+ Dorsalis Pedis (R), 2+ Left Dors-Pedis (L), 2+ Radial Pulses (R), 2+ Radial Pulses (L) Gastrointestinal: soft, distended, tenderness (minimal midline) Extremity: Non Tender, No Calf Tenderness Neurologic/Psychiatric: Alert, Oriented x3 Skin: Normal Color, Warm/Dry Lymphatic: No Adenopathy Results Lab Laboratory Tests 01/02/23 11:32: Glucometer 101 01/03/23 05:10: White Blood Count 8.3, Red Blood Count 3.25L, Hemoglobin 11.1L, Hematocrit 34L, Mean Corpuscular Volume 105H, Mean Corpuscular Hemoglobin 34, Mean Corpuscular Hemoglobin Concent 33, Red Cell Distribution Width 14.7H, Platelet Count 183, Mean Platelet Volume 10.5, Immature Granulocyte % (Auto) 3, Neutrophils (%) (Auto) 78H, Lymphocytes (%) (Auto) 12, Monocytes (%) (Auto) 7, Eosinophils (%) (Auto) 1, Basophils (%) (Auto) 0, Neutrophils # (Auto) 6.4, Lymphocytes # (Auto) 1.0, Monocytes # (Auto) 0.6, Eosinophils # (Auto) 0.1, Basophils # (Auto) 0.0, Immature Granulocyte # (Auto) 0.2H, Neutrophils % (Manual) 76, Lymphocytes % (Manual) 10, Monocytes % (Manual) 5, Eosinophils % (Manual) 2, Myelocytes % 2, Band Neutrophils 3, Reactive Lymphocytes 2, Macrocytosis SLIGHT, Sodium Level 139, Potassium Level 4.4, Chloride Level 109H, Carbon Dioxide Level 25, Anion Gap 5, Blood Urea Nitrogen 17, Creatinine 0.69, Estimat Glomerular Filtration Rate 101, BUN/Creatinine Ratio 25, Glucose Level 111H, Calcium Level 7.9L, Phosphorus Level 3.3, Magnesium Level 1.9 Microbiology 12/26/22 Gram Stain - Final, Complete 12/26/22 Sputum Culture - Final, Complete Klebsiella pneumoniae Assessment/Plan Assessment/Plan Assessment/Plan S/P Ex lap with partial gastric resection S/P Respiratory Arrest Gastric Distention Ileus Monitor blood pressure- stable abdomen is distended- review KUB NG decompression tube clamped. advance diet when he tolerates without distention. Incentive spirometer Meropenem TPN for nutrition. urine output [id number] in BRYON DAVIS DO 01/04/23 0721: Subjective Subjective/Events-last exam Breathing seem a little better. Abdomen mild distention. Passing flatus and bm. WBC down. Denies fever sweats chills or chest pain. Objective Exam General Appearance: No Apparent Distress, Chronically ill HEENT: PERRL/EOMI, Normal ENT Inspection Neck: Normal Inspection, Supple Respiratory: No Accessory Muscle Use, No Respiratory Distress Cardiovascular: Regular Rate, Rhythm, No JVD Gastrointestinal: distended, tenderness (minimal midline) Extremity: Non Tender, No Calf Tenderness Neurologic/Psychiatric: Alert, Oriented x3 Skin: Normal Color, Warm/Dry Lymphatic: No Adenopathy Assessment/Plan Assessment/Plan Assessment/Plan S/P Ex lap with partial gastric resection S/P Respiratory Arrest Gastric Distention Ileus Monitor blood pressure- stable abdomen is distended- review KUB NG decompression tube clamped. advance diet when he tolerates without distention. Incentive spirometer Meropenem TPN for nutrition. urine output [id number] in likely repeat ct abd pelivs tomorrow Supervisory-Addendum Brief Verification & Attestation Participated in pt care: history, MDM, physical Personally performed: exam, history, MDM, supervision of care Care discussed with: Medical Student Procedures: n/a Results interpretation: Verified all documentation Verification and Attestation of Medical Student E/M Service A medical student performed and documented this service in my presence. I reviewed and verified all information documented by the medical student and made modifications to such information, when appropriate. I personally performed the physical exam and medical decision making. Bryon Davis, Jan 03, 2023,19:21 NEMESIO HODGSON Jan 03, 2023 09:22 BRYON DAVIS DO Jan 04, 2023 07:21
[2023-01-03] MEDS: fentaNYL INJECTION 100 MCG/2 ML VIAL IVP PRN ×3 (10:08→20:40)
[2023-01-03] MEDS: NOREPINEPHRINE 8 MG/250 ML 250 ML IV SCH (10:30)
--- NOTE | 2023-01-03 11:21 | Progress Note ---
KRISTOFER JAMES MD,RESIDENT 01/03/23 1121: Subjective HPI/CC On Admission 67 yo male admitted after coming to ER with abdominal pain and having CT that showed large free air in abdomen. He underwent exploratory laparoscopy and found to have gastric perforation and partial gastrectomy was done last night. This morning he is still intubated, is alert but unable to give history due to ventilator status. Subjective/Events-last exam Pt resting comfortably in bed this morning. Abdominal pain slightly improved. Decreased PO intake. Objective Exam Vital Signs Vital Signs Date Time Temp Pulse Resp B/P (MAP) Pulse Ox O2 Delivery O2 Flow Rate FiO2 01/03/23 11:27 36.8 01/03/23 11:00 101 95 High Flow N/C 6.00 01/03/23 10:00 27 01/03/23 04:00 35 Capillary Refill : Less Than 3 Seconds General Appearance: No Apparent Distress Respiratory: Normal Breath Sounds, No Accessory Muscle Use, No Respiratory Distress Cardiovascular: Regular Rate, Rhythm Gastrointestinal: Distended, Other (Midline incision with delbert) Neurologic/Psychiatric: Alert, Oriented x3, Normal Mood/Affect Skin: Warm/Dry Results/Procedures Lab Laboratory Tests 01/03/23 05:10 Patient resulted labs reviewed. Assessment/Plan Assessment and Plan Assess & Plan/Chief Complaint 67-year-old male presenting with abdominal pain status post exploratory laparotomy. Required intubation on 12/26 with CPR performed shortly afterwards prior to achieving ROSC. Patient successfully extubated on 12/28. Continues to remain stable this morning. Chronic resp failure, post-code - Successfully extubated on 12/28 - Endotracheal tube culture grew Klebsiella pneumoniae - CT chest from 12/26 notable for severe emphysematous change and bullous disease with patchy airspace opacity which may be due to pneumonia or edema. - Sputum culture growing rare gram-negative rods -Continue IV meropenem. -Continue BiPAP as needed overnight however goal is to keep patient on 4 L nasal cannula - MAT protocol Shock, mixed - Resolved -Continues to do well off of pressors Rib pain, improving - Secondary to chest compressions -Continues to improve Atrial fibrillation - Continue diltiazem drip 5 mg/hr - Cardiology following, appreciate recommendations SBO -NG tube still in place, remians clamped. -TPN started 01/01 -Clear liquid diet -PT/OT following, patient will likely need SNF placement after discharge Gastric perforation s/p partial gastrectomy -CT abdomen from 12/26 notable for marked distention of the stomach and proximal small bowel concerning for high-grade small bowel obstruction. Similar prior pneumoperitoneum -Surgery following, appreciate recommendations Alcoholism - CIWA protocol - Recommend discontinuing CIWA protocol Hypertension -Holding home medications due to hypotensive episodes COPD -On 4 L oxygen at baseline -Wean oxygen as tolerated STAR KUMARI DO 01/03/23 1518: Subjective HPI/CC On Admission Date Seen by Provider: Jan 03, 2023 Time Seen by Provider: 09:00 Subjective/Events-last exam Patient doing a lot better Denies any new problems No falls No pain Objective Exam General Appearance: No Apparent Distress, WD/WN, Chronically ill Respiratory: No Accessory Muscle Use, No Respiratory Distress, Decreased Breath Sounds Cardiovascular: Regular Rate, Rhythm Assessment/Plan Assessment and Plan Assess & Plan/Chief Complaint IV antibiotics Diltiazem KRISTOFER Lee MD,RESIDENT Jan 03, 2023 11:21 STAR KUMARI DO Jan 03, 2023 15:18
--- NOTE | 2023-01-03 11:46 | Cardiology Progress Note ---
Subjective Date Seen by Provider: Jan 03, 2023 Time Seen by Provider: 11:42 Subjective/Events-last exam Patient feels better. Heart rate is better controlled, remains in the low 100. Blood pressure is stable. On clear liquid diet Review of Systems General: No Chills, No Night Sweats, No Fatigue, No Malaise, No Appetite, No Other HEENT: No Head Aches, No Visual Changes, No Eye Pain, No Ear Pain, No Dysphasia, No Sinus Congestion, No Post Nasal Drip, No Sore Throat, No Other Pulmonary: No Dyspnea, No Cough, No Pleuritic Chest Pain, No Other Cardiovascular: No: Chest Pain, Palpitations, Orthopnea, Paroxysmal Noc. Dyspnea, Edema, Lt Headedness, Other Gastrointestinal: Abdominal Pain Genitourinary: No Dysuria, No Frequency, No Incontinence, No Hematuria, No Retention, No Other Musculoskeletal: No: other, neck pain, shoulder pain, arm pain, back pain, hand pain, leg pain, foot pain Neurological: No: Weakness, Numbness, Incoordination, Change in speech, Confusion, Seizures, Other Exam Vital Signs Vital Signs Date Time Temp Pulse Resp B/P (MAP) Pulse Ox O2 Delivery O2 Flow Rate FiO2 01/03/23 11:27 36.8 01/03/23 11:00 101 95 High Flow N/C 6.00 01/03/23 10:00 27 01/03/23 04:00 35 Physical Exam Alert oriented, still with NG tube. Neck supple. No JVD. Lungs decreased breath sounds, scattered rhonchi. Heart: S1-S2, regular rhythm, no murmurs. Abdomen: Mildly distended. Mildly tender. Extremities no edema Labs Laboratory Tests Test 01/03/23 05:10 Range/Units White Blood Count 8.3 4.3-11.0 10^3/uL Red Blood Count 3.25 L 4.30-5.52 10^6/uL Hemoglobin 11.1 L 13.3-17.7 g/dL Hematocrit 34 L 40-54 % Mean Corpuscular Volume 105 H 80-99 fL Mean Corpuscular Hemoglobin 34 25-34 pg Mean Corpuscular Hemoglobin Concent 33 32-36 g/dL Red Cell Distribution Width 14.7 H 10.0-14.5 % Platelet Count 183 130-400 10^3/uL Mean Platelet Volume 10.5 9.0-12.2 fL Immature Granulocyte % (Auto) 3 % Neutrophils (%) (Auto) 78 H 42-75 % Lymphocytes (%) (Auto) 12 12-44 % Monocytes (%) (Auto) 7 0-12 % Eosinophils (%) (Auto) 1 0-10 % Basophils (%) (Auto) 0 0-10 % Neutrophils # (Auto) 6.4 1.8-7.8 10^3/uL Lymphocytes # (Auto) 1.0 1.0-4.0 10^3/uL Monocytes # (Auto) 0.6 0.0-1.0 10^3/uL Eosinophils # (Auto) 0.1 0.0-0.3 10^3/uL Basophils # (Auto) 0.0 0.0-0.1 10^3/uL Immature Granulocyte # (Auto) 0.2 H 0.0-0.1 10^3/uL Neutrophils % (Manual) 76 % Lymphocytes % (Manual) 10 % Monocytes % (Manual) 5 % Eosinophils % (Manual) 2 % Myelocytes % 2 % Band Neutrophils 3 % Reactive Lymphocytes 2 % Macrocytosis SLIGHT Sodium Level 139 135-145 MMOL/L Potassium Level 4.4 3.6-5.0 MMOL/L Chloride Level 109 H 98-107 MMOL/L Carbon Dioxide Level 25 21-32 MMOL/L Anion Gap 5 5-14 MMOL/L Blood Urea Nitrogen 17 7-18 MG/DL Creatinine 0.69 0.60-1.30 MG/DL Estimat Glomerular Filtration Rate 101 BUN/Creatinine Ratio 25 Glucose Level 111 H 70-105 MG/DL Calcium Level 7.9 L 8.5-10.1 MG/DL Phosphorus Level 3.3 2.3-4.7 MG/DL Magnesium Level 1.9 1.6-2.4 MG/DL A/P-Cardiology Admission Diagnosis Acute abdomen Acute respiratory failure Coronary artery disease Permanent atrial fibrillation Assessment/Plan Status post acute respiratory failure, extubated Managed by critical care team Atrial fibrillation: Heart rate is controlled. Continue present therapy. Will consider to start anticoagulation if is okay with surgical service. Status post cardiac arrest: Has been stable. Continue to monitor Status post acute abdomen, gastric perforation, status post exploratory laparotomy done on December 21, 2022 Improving Managed by surgical team. Continue to monitor Coronary artery disease, history of stenting using 3.020 mm Promus stent to the right coronary artery done in March 2012. Patient was scheduled for [facility] on December 23, 2022 as outpatient. Will postpone at this time. COPD, using oxygen at night, had a complex hospitalization with Legionella pneumonia and CMV, respiratory failure, multiple cardiac arrest in October 2017. loculated pneumonia underwent right lung decortication on January 28, 2018 resulted in hydropneumothorax and marked emphysema and had prolonged chest tube placement. History of congestive heart failure, chronic left ventricular systolic dysfunction. Last echocardiogram done in June 2022 with ejection fraction 50 to 55%, pulmonary hypertension with PA pressure 50 to 55 mmHg Continue present therapy Heavy alcoholism, managed by primary care physician Abdominal aortic aneurysm, had a stent placed by Dr. Hogue done in June 2021. Hypertension: Blood pressure controlled, continue to monitor. Hyperlipidemia, continue to monitor lipids LOLA Healy DMITRY MD Jan 03, 2023 11:46
[2023-01-03] MEDS: ENOXAPARIN 40 MG/0.4 ML SYRINGE SC SCH (13:00)
[2023-01-03] MEDS: ENOXAPARIN 80 MG/0.8 ML SYRINGE SC SCH (14:35)
[2023-01-03] MEDS: LACTATED RINGERS 1,000 ML 1,000 ML IV SCH (17:50)
[2023-01-03] MEDS: SODIUM PHOSPHATE IV SCH ×9 (17:55)
[2023-01-03] MEDS: [UNRECOGNIZED DRUG - OTHER] IV SCH ×9 (17:55)
[2023-01-03] MEDS: SODIUM ACETATE IV SCH ×9 (17:55)
[2023-01-03] MEDS: POTASSIUM CHLORIDE IV SCH ×9 (17:55)
[2023-01-03] MEDS: MELATONIN 3 MG TABLET PO SCH (20:40)
[2023-01-04] MEDS: ENOXAPARIN 80 MG/0.8 ML SYRINGE SC SCH ×2 (02:03→13:54)
[2023-01-04] MEDS: MEROPENEM 500 MG/NS 100 ML IVPB IV SCH ×8 (02:03→20:16)
[2023-01-04] MEDS: RT-Ipratropium/Albuterol NEB 3 ML VIAL INH SCH ×4 (02:29→21:31)
[2023-01-04 04:56] LABS: BASOPHILS % (AUTO) 0 % (0-10); EOSINOPHILS # (AUTO) 0.1 10^3/uL (0.0-0.3); EOSINOPHILS % (AUTO) 1 % (0-10); HEMATOCRIT 34 % (40-54); HEMOGLOBIN 11.5 g/dL (13.3-17.7); LYMPHOCYTES % (AUTO) 11 % (12-44); MEAN CORPUSCULAR HEMOGLOBIN 35 pg (25-34); MEAN CORPUSCULAR HGB CONC 33 g/dL (32-36); MEAN CORPUSCULAR VOLUME 103 fL (80-99); MEAN PLATELET VOLUME 10.5 fL (9.0-12.2); MONOCYTES # (AUTO) 0.6 10^3/uL (0.0-1.0); MONOCYTES % (AUTO) 7 % (0-12); NEUTROPHILS # (AUTO) 7.5 10^3/uL (1.8-7.8); NEUTROPHILS % (AUTO) 79 % (42-75); PLATELET COUNT 165 10^3/uL (130-400); WHITE BLOOD COUNT 9.6 10^3/uL (4.3-11.0)
[2023-01-04] MEDS: dilTIAZem DRIP PRE-MIX 125 ML IV SCH ×2 (05:00→15:22)
[2023-01-04 05:06] LABS: POTASSIUM 4.3 MMOL/L (3.6-5.0)
[2023-01-04 05:11] LABS: BAND NEUTROPHILS 7 %; CREATININE SERUM 0.69 MG/DL (0.60-1.30); LYMPHOCYTES % (MANUAL) 10 %; NEUTROPHILS % (MANUAL) 72 %; PHOSPHORUS 2.8 MG/DL (2.3-4.7)
[2023-01-04 05:12] LABS: METAMYELOCYTES % 1 %; MONOCYTES % (MANUAL) 9 %; MYELOCYTES % 1 %; POLYCHROMASIA SLIGHT
[2023-01-04 05:13] LABS: MAGNESIUM 1.8 MG/DL (1.6-2.4)
[2023-01-04] MEDS: POTASSIUM CL 10MEQ/50ML IVPB 50 ML IV SCH (05:25)
[2023-01-04] MEDS: POTASSIUM CHLORIDE 20 MEQ TABLET PO SCH (05:26)
[2023-01-04] MEDS: MAGNESIUM 1 GM/100 ML IVPB 100 ML IV SCH (05:26)
[2023-01-04] MEDS: NOREPINEPHRINE 8 MG/250 ML 250 ML IV SCH (06:53)
[2023-01-04 07:09] VITALS: BP 148/85
[2023-01-04] MEDS: fentaNYL INJECTION 100 MCG/2 ML VIAL IVP PRN ×4 (07:10→22:13)
--- NOTE | 2023-01-04 07:20 | Progress Note - Surgery ---
NEMESIO HODGSON 01/04/23 0720: Subjective Date Seen by a Provider: Jan 04, 2023 Time Seen by a Provider: 06:35 Subjective/Events-last exam Pt c/o right sided rib pain today and asking for pain medicine. Abdomen is distended and soft. Pt had BM yesterday and is still passing gas. He has tolerated the clears diet w/o nausea or vomiting. Urine output is 1.80mL/kg/hr overnight. WBC is 9.6 Review of Systems General: No Chills, No Night Sweats HEENT: No Head Aches, No Visual Changes Pulmonary: No Dyspnea; Cough Cardiovascular: No: Chest Pain, Palpitations Gastrointestinal: No: Nausea, Vomiting Genitourinary: No Dysuria, No Hematuria Musculoskeletal: No: neck pain, shoulder pain Neurological: No: Weakness, Numbness Objective Exam Vital Signs Date Time Temp Pulse Resp B/P (MAP) Pulse Ox O2 Delivery O2 Flow Rate FiO2 01/04/23 07:09 87 25 95 35.00 01/04/23 06:15 98 22 144/79 (97) 96 NIV Bilevel 35.00 01/04/23 06:00 97 21 91/61 (68) 96 NIV Bilevel 35.00 01/04/23 05:00 93 130/78 01/04/23 05:00 94 19 142/76 (105) 96 NIV Bilevel 35.00 01/04/23 04:00 93 26 130/78 (90) 94 NIV Bilevel 35.00 01/04/23 04:00 94 NIV Bilevel 35 01/04/23 03:00 89 20 117/83 (104) 96 NIV Bilevel 35.00 01/04/23 02:27 68 23 35.00 01/04/23 02:00 92 23 128/87 (99) 95 NIV Bilevel 35.00 01/04/23 01:00 90 01/04/23 01:00 90 25 145/85 (108) 95 NIV Bilevel 35.00 01/04/23 00:00 92 26 142/82 (108) 95 NIV Bilevel 35.00 01/03/23 23:57 94 NIV Bilevel 35 01/03/23 23:00 96 26 135/89 (98) 95 NIV Bilevel 35.00 01/03/23 22:49 91 20 95 35.00 01/03/23 22:44 NIV Bilevel 35.00 01/03/23 22:00 88 27 124/80 (89) 96 High Flow N/C 6.00 01/03/23 21:00 92 29 138/80 (110) 92 High Flow N/C 6.00 01/03/23 20:00 99 29 143/80 (113) 95 High Flow N/C 6.00 01/03/23 20:00 36.2 High Flow N/C 6.00 01/03/23 20:00 93 High Flow N/C 6.00 01/03/23 19:00 95 29 147/88 (107) 96 High Flow N/C 6.00 01/03/23 19:00 95 01/03/23 18:00 99 127/98 (105) 90 High Flow N/C 6.00 01/03/23 17:55 101 151/82 01/03/23 17:00 93 28 145/80 (103) 100 High Flow N/C 6.00 01/03/23 16:00 36.4 01/03/23 16:00 92 28 144/90 (110) 100 High Flow N/C 6.00 01/03/23 16:00 93 High Flow N/C 6.00 01/03/23 15:00 98 24 155/109 (113) 93 High Flow N/C 6.00 01/03/23 14:16 92 High Flow N/C 6.00 01/03/23 14:00 104 29 141/87 (104) 95 High Flow N/C 6.00 01/03/23 13:00 81 28 131/88 (110) 95 High Flow N/C 6.00 01/03/23 12:33 99 01/03/23 12:00 93 28 135/83 (94) 93 High Flow N/C 6.00 01/03/23 12:00 92 High Flow N/C 6.00 01/03/23 11:27 36.8 01/03/23 11:00 101 148/84 (107) 95 High Flow N/C 6.00 01/03/23 10:00 90 27 148/94 (106) 95 High Flow N/C 6.00 01/03/23 09:00 90 27 146/98 (116) 94 High Flow N/C 6.00 01/03/23 08:04 36.3 01/03/23 08:00 75 30 137/81 (107) 95 High Flow N/C 6.00 01/03/23 08:00 94 High Flow N/C 6.00 I & O 01/04/23 07:00 Intake Total 3295 ml Output Total 3125 ml Balance 170 ml Capillary Refill : Less Than 3 Seconds General Appearance: No Apparent Distress, WD/WN, Chronically ill HEENT: PERRL/EOMI, Normal ENT Inspection, Other (NG tube still in place) Neck: Full Range of Motion, Normal Inspection Respiratory: No Accessory Muscle Use, No Respiratory Distress, Decreased Breath Sounds Cardiovascular: Irregularly Irregular Peripheral Pulses: 2+ Dorsalis Pedis (R), 2+ Left Dors-Pedis (L), 2+ Radial Pulses (R), 2+ Radial Pulses (L) Gastrointestinal: soft, distended, tenderness (minimal midline) Extremity: Non Tender, No Calf Tenderness Neurologic/Psychiatric: Alert, Oriented x3, Normal Mood/Affect Skin: Normal Color, Warm/Dry Lymphatic: No Adenopathy Results Lab Laboratory Tests 01/03/23 12:09: Glucometer 108 01/03/23 19:17: Glucometer 117H 01/04/23 04:45: White Blood Count 9.6, Red Blood Count 3.33L, Hemoglobin 11.5L, Hematocrit 34L, Mean Corpuscular Volume 103H, Mean Corpuscular Hemoglobin 35H, Mean Corpuscular Hemoglobin Concent 33, Red Cell Distribution Width 14.6H, Platelet Count 165, Mean Platelet Volume 10.5, Immature Granulocyte % (Auto) 3, Neutrophils (%) (Auto) 79H, Lymphocytes (%) (Auto) 11L, Monocytes (%) (Auto) 7, Eosinophils (%) (Auto) 1, Basophils (%) (Auto) 0, Neutrophils # (Auto) 7.5, Lymphocytes # (Auto) 1.0, Monocytes # (Auto) 0.6, Eosinophils # (Auto) 0.1, Basophils # (Auto) 0.0, Immature Granulocyte # (Auto) 0.3H, Neutrophils % (Manual) 72, Lymphocytes % (Manual) 10, Monocytes % (Manual) 9, Metamyelocytes % 1, Myelocytes % 1, Band Neutrophils 7, Polychromasia SLIGHT, Sodium Level 135, Potassium Level 4.3, Chloride Level 105, Carbon Dioxide Level 26, Anion Gap 4L, Blood Urea Nitrogen 18, Creatinine 0.69, Estimat Glomerular Filtration Rate 101, BUN/Creatinine Ratio 26, Glucose Level 115H, Calcium Level 8.0L, Phosphorus Level 2.8, Magnesium Level 1.8 Microbiology 12/26/22 Gram Stain - Final, Complete 12/26/22 Sputum Culture - Final, Complete Klebsiella pneumoniae Assessment/Plan Assessment/Plan Assessment/Plan S/P Ex lap with partial gastric resection S/P Respiratory Arrest Gastric Distention Ileus Monitor blood pressure- stable abdomen is distended- CT w/contrast today NG decompression tube clamped. Tolerating clears- Continue clears Incentive spirometer Meropenem TPN for nutrition. urine output [id number]-vmxshqv-detce in BRYON DAVIS DO 01/04/23 0854: Subjective Subjective/Events-last exam Having bowel function. Abdomen still distended. Breathing okay currently on bipap. Ng in place. TPN and taking some clears. Urine output okay. Denies n/v fever sweats chills or chest pain at this time. Objective Exam General Appearance: No Apparent Distress, Chronically ill HEENT: PERRL/EOMI, Normal ENT Inspection, Other (NG tube still in place) Neck: Full Range of Motion, Normal Inspection Respiratory: Chest Non Tender, No Accessory Muscle Use, No Respiratory Distress Cardiovascular: No JVD, Irregularly Irregular Gastrointestinal: distended, tenderness (minimal midline no signs of infectino) Extremity: Non Tender, No Calf Tenderness Neurologic/Psychiatric: Alert, Oriented x3 Skin: Normal Color, Warm/Dry Lymphatic: No Adenopathy Assessment/Plan Assessment/Plan Assessment/Plan S/P Ex lap with partial gastric resection S/P Respiratory Arrest Gastric Distention Ileus Afib Monitor blood pressure- stable abdomen is distended- CT w/oral contrast today NG decompression tube clamped. Currently on clears Incentive spirometer Meropenem TPN for nutrition. Lovenox urine output [id number]-rykutdo-gi foley Supervisory-Addendum Brief Verification & Attestation Participated in pt care: history, MDM, physical Personally performed: exam, history, MDM, supervision of care Care discussed with: Medical Student Procedures: n/a Results interpretation: Verified all documentation Verification and Attestation of Medical Student E/M Service A medical student performed and documented this service in my presence. I reviewed and verified all information documented by the medical student and made modifications to such information, when appropriate. I personally performed the physical exam and medical decision making. Bryon Davis, Jan 04, 2023,08:53 NEMESIO HODGSON Jan 04, 2023 07:20 BRYON DAVIS DO Jan 04, 2023 08:54
[2023-01-04] MEDS: PANTOPRAZOLE INJECTION 40 MG VIAL IV SCH ×2 (08:08→22:12)
--- NOTE | 2023-01-04 08:34 | Tele-ICU Progress Note ---
Subjective Date Seen by a Provider: Jan 04, 2023 Time Seen by a Provider: 08:29 Subjective/Events-last exam (Tele-ICU Physician , Progress Note ) Service provided via interactive audio and video telecommunications E-CARE system to a patient admitted to ICU bed in [facility]. Patient is seen today due to persistent need of ICU care I am remotely monitoring this patient from another state. I am unable to do the bedside exam, and history/physical and pertinent information is taken from other notes in the computer and bedside staff. Available chart/ vitals / labs / Images reviewed Video assessment done using teleICU camera, rest of exam as per RN Discussed with RN Events overnight : s/p repair of gastric perforation 12/21 Pt on TPN, NG is clamped, on clear liquids since last week, tolerating ok CBC, CMP ok, CXR from yesterday reviewed, shows resolving pleural effusion and infiltrate on left Still on IV Cardizem @ 10for a fib with RVR, V rate stays around 80's On Breo, Spiriva for COPD To have CT abd today to evaluate small bowel, stomach Sepsis Event Evaluation Height, Weight, BMI Height: 6'4.00" Weight: 154lbs. 2.0oz. [id number]; 22.31 BMI Method:Stated Exam Exam Patient acknowledged, consented, and participated in this virtual visit which was conducted using real time audio/video Vital Signs Date Time Temp Pulse Resp B/P (MAP) Pulse Ox O2 Delivery O2 Flow Rate FiO2 01/04/23 08:00 101 19 148/69 (95) 92 Nasal Cannula 5.00 01/04/23 07:53 36.1 01/04/23 07:22 96 01/04/23 07:15 Nasal Cannula 5.00 01/04/23 07:09 87 25 95 35.00 01/04/23 07:00 86 25 148/85 (106) 96 NIV Bilevel 35.00 01/04/23 06:15 98 22 144/79 (97) 96 NIV Bilevel 35.00 01/04/23 06:00 97 21 91/61 (68) 96 NIV Bilevel 35.00 01/04/23 05:00 93 130/78 01/04/23 05:00 94 19 142/76 (105) 96 NIV Bilevel 35.00 11/20/23 04:00 93 26 130/78 (90) 94 NIV Bilevel 35.00 01/04/23 04:00 94 NIV Bilevel 35 01/04/23 03:00 89 20 117/83 (104) 96 NIV Bilevel 35.00 01/04/23 02:27 68 23 35.00 01/04/23 02:00 92 23 128/87 (99) 95 NIV Bilevel 35.00 01/04/23 01:00 90 01/04/23 01:00 90 25 145/85 (108) 95 NIV Bilevel 35.00 01/04/23 00:00 92 26 142/82 (108) 95 NIV Bilevel 35.00 01/03/23 23:57 94 NIV Bilevel 35 01/03/23 23:00 96 26 135/89 (98) 95 NIV Bilevel 35.00 01/03/23 22:49 91 20 95 35.00 01/03/23 22:44 NIV Bilevel 35.00 01/03/23 22:00 88 27 124/80 (89) 96 High Flow N/C 6.00 01/03/23 21:00 92 29 138/80 (110) 92 High Flow N/C 6.00 01/03/23 20:00 99 29 143/80 (113) 95 High Flow N/C 6.00 01/03/23 20:00 36.2 High Flow N/C 6.00 01/03/23 20:00 93 High Flow N/C 6.00 01/03/23 19:00 95 29 147/88 (107) 96 High Flow N/C 6.00 01/03/23 19:00 95 01/03/23 18:00 99 127/98 (105) 90 High Flow N/C 6.00 01/03/23 17:55 101 151/82 01/03/23 17:00 93 28 145/80 (103) 100 High Flow N/C 6.00 01/03/23 16:00 36.4 01/03/23 16:00 92 28 144/90 (110) 100 High Flow N/C 6.00 01/03/23 16:00 93 High Flow N/C 6.00 01/03/23 15:00 98 24 155/109 (113) 93 High Flow N/C 6.00 01/03/23 14:16 92 High Flow N/C 6.00 01/03/23 14:00 104 29 141/87 (104) 95 High Flow N/C 6.00 01/03/23 13:00 81 28 131/88 (110) 95 High Flow N/C 6.00 01/03/23 12:33 99 01/03/23 12:00 93 28 135/83 (94) 93 High Flow N/C 6.00 01/03/23 12:00 92 High Flow N/C 6.00 01/03/23 11:27 36.8 01/03/23 11:00 101 148/84 (107) 95 High Flow N/C 6.00 01/03/23 10:00 90 27 148/94 (106) 95 High Flow N/C 6.00 01/03/23 09:00 90 27 146/98 (116) 94 High Flow N/C 6.00 I & O 01/04/23 06:59 Intake Total 3295 ml Output Total 3125 ml Balance 170 ml Height & Weight Height: 6'4.00" Weight: 154lbs. 2.0oz. [id number]; 22.31 BMI Method:Stated General Appearance: No Apparent Distress, WD/WN, Chronically ill HEENT: PERRL/EOMI, Normal ENT Inspection, Other (NG tube still in place) Neck: Full Range of Motion, Normal Inspection Respiratory: Lungs Clear, No Accessory Muscle Use, No Respiratory Distress, Decreased Breath Sounds Cardiovascular: Irregularly Irregular Capillary Refill: Less Than 3 Seconds Peripheral Pulses: 2+ Dorsalis Pedis (R), 2+ Left Dors-Pedis (L), 2+ Radial Pulses (R), 2+ Radial Pulses (L) Gastrointestinal: soft, tenderness (minimal midline before, would looks ok, delbert ok), other (has BS, normal) Extremity: Non Tender, No Calf Tenderness, No Pedal Edema Neurologic/Psychiatric: Alert, Oriented x3, Normal Mood/Affect Skin: Normal Color, Warm/Dry Lymphatic: No Adenopathy Results Lab Laboratory Tests 01/03/23 05:10 01/04/23 04:45 Assessment/Plan Assessment/Plan s/p repair of gastic perforation, continues to improve Had CT abd today, await report but I do not see any gross abnormalities, some small loops of bowel dilated, stomach looks ok continue COPD meds Critical Care: Critically Ill Patient Time spent with patient (mins): 20 VIGNESH SPEAR MD Jan 04, 2023 08:34
--- NOTE | 2023-01-04 08:59 | Physical Therapy Daily Note ---
PT Daily Note-Current Subjective Patient agrees to therapy. He reports he is feeling better today. Pain Section J - Health Conditions 1. Rarely or not at all 2. Occasionally 3. Frequently 4. Almost constantly 8. Unable to answer Pain Effect on Sleep: 1 Pain Interference with Therapy: 1 Pain Interference w/Day-to-Day: 1 Mental Status Attachments: NG Tube, Oxygen, Meier Catheter, IV Transfers SCALE: Activities may be completed with or without assistive devices. 2-Hpkytfmtnm-bipipsi completes the activity by him/herself with no assistance from a helper. 5-Set-up or Clean-up Assistance-helper sets up or cleans up; patient completes activity. [place] assists only prior to or following the activity. 4-Supervision or Touching Assistance-helper provides verbal cues and/or touching/steadying and/or contact guard assistance as patient completes activity. Assistance may be provided throughout the activity or intermittently. 3-Partial/Moderate Assistance-helper does LESS THAN HALF the effort. [place] lifts, holds or supports trunk or limbs, but provides less than half the effort. 2-Substantial/Maximal Assistance-helper does MORE THAN HALF the effort. [place] lifts or holds trunk or limbs and provides more than half the effort. 2-Pycuswimf-krrbpe does ALL the effort. Patient does none of the effort to complete the activity. Or, the assistance of 2 or more helpers is required for the patient to complete the activity. If activity was not attempted, code reason: 7-Patient Refused. 9-Not Applicable-not attempted and the patient did not perform the activity before the current illness, exacerbation or injury. 10-Not Attempted due to Environmental Limitations-(lack of equipment, weather restraints, etc.). 88-Not Attempted due to Medical Conditions or Safety Concerns. Sit to Lying (QC): 4 Lying to Sitting/Side of Bed(Q: 4 Sit to Stand (QC): 4 Gait Training Distance: 5 side steps Gait Assistive Device: FWW Assessment Patient improved with strength on this date. Patient is SBA with all mobility. Patient to have a CT on this date. RN notified of patient's improvement and to be up to recliner upon return from CT. PT Group Home Goals Group Home Goals PT [place] Goals Time Frame: Jan 30, 2023 Roll Left & Right (QC): 6 Sit to Lying (QC): 6 Lying-Sitting on Side/Bed(QC): 6 Sit to Stand (QC): 6 Chair/Mrx-hz-Kipvs Xfer(QC): 6 Toilet Transfer (QC): 6 Walk 10 feet (QC): 6 Walk 50ft with 2 Turns (QC): 6 Walk 150 ft (QC): 6 PT Plan Treatment/Plan Treatment Plan: Continue Plan of Care Treatment Plan: Bed Mobility, Education, Functional Activity Renée, Functional Strength, Gait, Safety, Therapeutic Exercise, Transfers Treatment Duration: Jan 30, 2023 Frequency: 5 times per week Estimated Hrs Per Day: .25 hour per day Patient and/or Family Agrees t: Yes Time Time In: 830 Time Out: 840 DATE: Jan 04, 2023 Total Billed Treatment Time: 10 Total Billed Treatment 1 visit FA 10 min TOMMY WHITT PT Jan 04, 2023 08:59
--- NOTE | 2023-01-04 09:16 | Occupational Ther Daily Note ---
OT Current Status-Daily Note Subjective Agreeable to participate, reports that waiting for procedure Mental Status/Objective Patient Orientation: Person, Place Attachments: Meier Catheter, IV, NG Tube, Oxygen, SCD's, Telemetry ADL-Treatment Therapy Code Descriptions/Definitions Functional Power Measure: 0=Not Assessed/NA 4=Minimal Assistance 1=Total Assistance 5=Supervision or Setup 2=Maximal Assistance 6=Modified Power 3=Moderate Assistance 7=Complete IndependenceSCALE: Activities may be completed with or without assistive devices. 0-Kzptxtdyep-iatrwxp completes the activity by him/herself with no assistance from a helper. 5-Set-up or Clean-up Assistance-helper sets up or cleans up; patient completes activity. [place] assists only prior to or following the activity. 4-Supervision or Touching Assistance-helper provides verbal cues and/or touching/steadying and/or contact guard assistance as patient completes activity. Assistance may be provided throughout the activity or intermittently. 3-Partial/Moderate Assistance-helper does LESS THAN HALF the effort. [place] lifts, holds or supports trunk or limbs, but provides less than half the effort. 2-Substantial/Maximal Assistance-helper does MORE THAN HALF the effort. [place] lifts or holds trunk or limbs and provides more than half the effort. 9-Xyweahmgm-ymnksj does ALL the effort. Patient does none of the effort to complete the activity. Or, the assistance of 2 or more helpers is required for the patient to complete the activity. If activity was not attempted, code reason: 7-Patient Refused. 9-Not Applicable-not attempted and the patient did not perform the activity before the current illness, exacerbation or injury. 10-Not Attempted due to Environmental Limitations-(lack of equipment, weather restraints, etc.). 88-Not Attempted due to Medical Conditions or Safety Concerns. On/Off Footwear: 2 Toileting Hygiene (QC): 2 Toilet Transfer (QC): 3 Side stepping and standing balance tolerance improving Education OT Patient Education: Modified ADL techniques, Progress toward Goal/Update tx plan, Purpose of tx/functional activities, Reviewed precautions, Rehab process, Safety issues, Transfer techniques Teaching Recipient: Patient Teaching Methods: Demonstration Response to Teaching: Return Demonstration OT Jail Goals Jail Goals Eating (QC): 6 Oral Hygiene (QC): 5 Toileting Hygiene (QC): 4 Shower/Bathe Self (QC): 4 Upper Body Dressing (QC): 4 Lower Body Dressing (QC): 4 On/Off Footwear (QC): 4 1=Demonstrate adherence to instructed precautions during ADL tasks. 2=Patient will verbalize/demonstrate understanding of assistive devices /modifications for ADL. 3=Patient will improve strength/tolerance for activity to enable patient to perform ADL's. OT Education/Plan Problem List/Assessment Assessment: Decreased Activ Tolerance, Decreased UE Strength, Impaired Coordination, Impaired Funct Balance, Impaired Self-Care Skills Discharge Recommendations Plan/Recommendations: Continue POC Treatment Plan/Plan of Care Treatment,Training & Education: Yes Patient would benefit from OT for education, treatment and training to promote independence in ADL's, mobility, safety and/or upper extremity function for ADL's. Plan of Care: ADL Retraining, Functional Mobility, Group Exercise/Act as Ind, UE Funct Exercise/Act Treatment Duration: Jan 08, 2023 Frequency: 3 times per week (3-5 times per week) Estimated Hrs Per Day: .25 hour per day Agreement: Yes Rehab Potential: Fair Time Start Time: 08:30 Stop Time: 08:40 DATE: Jan 04, 2023 Total Time Billed (hr/min): 10 Billed Treatment Time ADL 10 min SARAH CARTAGENA OT Jan 04, 2023 09:16
[2023-01-04] MEDS: FLUTICASONE/VILANTEROL 200/25 MCG (14 DOSES) IH SCH (09:46)
[2023-01-04] MEDS ORDERED: DIATRIZOATE MEGLUM/SODIUM 37% 120 ML (GASTROGRAFIN) PO ONE (10:45)
[2023-01-04] MEDS: TIOTROPIUM INH 4 GM (SPIRIVA Respimat) IH SCH (11:02)
--- NOTE | 2023-01-04 11:42 | Progress Note ---
RUDDY COPE MD, RESIDENT 01/04/23 1142: Subjective Subjective/Events-last exam Patient is doing well this morning. Tolerating clear liquid diet well. He was concerned as his inhaler regimen here is different than what he is doing at home and would like to go back to his home regimen. He states he was able to stand up with physical therapy today however did have a little bit of shortness of breath with this. Otherwise has no concerns. Review of Systems General: No Fatigue HEENT: No Head Aches Pulmonary: No Dyspnea, No Cough Cardiovascular: No: Chest Pain, Palpitations, Edema Gastrointestinal: No: Nausea, Vomiting, Diarrhea, Constipation Genitourinary: No Dysuria Objective Exam Last Set of Vital Signs Vital Signs Date Time Temp Pulse Resp B/P (MAP) Pulse Ox O2 Delivery O2 Flow Rate FiO2 01/04/23 11:26 Nasal Cannula 3.00 01/04/23 11:00 94 26 91 01/04/23 07:53 36.1 01/04/23 04:00 35 Capillary Refill : Less Than 3 Seconds I&O Intake and Output 01/03/23 23:59 Intake Total 3495 ml Output Total 3425 ml Balance 70 ml Intake Oral 1650 ml IV Total 1845 ml Output Urine Total 3425 ml General: Alert, Oriented X3 HEENT: Atraumatic, EOMI Neck: Supple, Other (NG tube in place) Lungs: Clear to Auscultation, Normal Air Movement Heart: Regular Rate, No Murmurs Abdomen: Normal Bowel Sounds, Other (Midline incision with delbert, abdomen mildly distended however improving from prior exams) Extremities: No Edema Neuro: Normal Speech Psych/Mental Status: Mental Status NL Results/Procedures Lab Laboratory Tests 01/03/23 12:09: Glucometer 108 01/03/23 19:17: Glucometer 117H 01/04/23 04:45: White Blood Count 9.6, Red Blood Count 3.33L, Hemoglobin 11.5L, Hematocrit 34L, Mean Corpuscular Volume 103H, Mean Corpuscular Hemoglobin 35H, Mean Corpuscular Hemoglobin Concent 33, Red Cell Distribution Width 14.6H, Platelet Count 165, Mean Platelet Volume 10.5, Immature Granulocyte % (Auto) 3, Neutrophils (%) (Auto) 79H, Lymphocytes (%) (Auto) 11L, Monocytes (%) (Auto) 7, Eosinophils (%) (Auto) 1, Basophils (%) (Auto) 0, Neutrophils # (Auto) 7.5, Lymphocytes # (Auto) 1.0, Monocytes # (Auto) 0.6, Eosinophils # (Auto) 0.1, Basophils # (Auto) 0.0, Immature Granulocyte # (Auto) 0.3H, Neutrophils % (Manual) 72, Lymphocytes % (Manual) 10, Monocytes % (Manual) 9, Metamyelocytes % 1, Myelocytes % 1, Band Neutrophils 7, Polychromasia SLIGHT, Sodium Level 135, Potassium Level 4.3, Chloride Level 105, Carbon Dioxide Level 26, Anion Gap 4L, Blood Urea Nitrogen 18, Creatinine 0.69, Estimat Glomerular Filtration Rate 101, BUN/Creatinine Ratio 26, Glucose Level 115H, Calcium Level 8.0L, Phosphorus Level 2.8, Magnesium Level 1.8 Microbiology 12/26/22 Gram Stain - Final, Complete 12/26/22 Sputum Culture - Final, Complete Klebsiella pneumoniae Radiology CT abd/pelvis: IMPRESSION: 1. Large volume of intra-abdominal free air of uncertain etiology but concerning for hollow viscus perforation. There are a few foci along the left upper quadrant near the stomach which could suggest perforated ulceration. 2. 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 No dissection or significant stenosis. 3. COPD without other acute abnormality in the chest. CXR: IMPRESSION: Emphysema. No focal consolidation or swathi pulmonary edema. Endotracheal tube tip projects over the proximal trachea. Assessment/Plan Assessment/Plan Assessment & Plan 67-year-old male presenting with abdominal pain status post exploratory laparotomy. Required intubation on 12/26 with CPR performed shortly afterwards prior to achieving ROSC. Patient successfully extubated on 12/28. Continues to remain stable this morning. Chronic resp failure, post-code - Successfully extubated on 12/28 - Endotracheal tube culture grew Klebsiella pneumoniae - CT chest from 12/26 notable for severe emphysematous change and bullous disease with patchy airspace opacity which may be due to pneumonia or edema. - Sputum culture growing rare gram-negative rods - Continue IV meropenem. - Continue BiPAP as needed overnight however goal is to keep patient on 4 L nasal cannula - MAT protocol Shock, mixed - Resolved -Continues to do well off of pressors Rib pain, improving - Secondary to chest compressions -Continues to improve Atrial fibrillation - Continue diltiazem drip 10 mg/hr, anticipate transition to oral once able to tolerate diet - Cardiology following, appreciate recommendations SBO -NG tube still in place, remains clamped. -TPN started 01/01 -Clear liquid diet -PT/OT following, will see if patient is a candidate for inpatient rehab versus going home with home health Gastric perforation s/p partial gastrectomy -CT abdomen from 12/26 notable for marked distention of the stomach and proximal small bowel concerning for high-grade small bowel obstruction. Similar prior pneumoperitoneum -Surgery following, appreciate recommendations Alcoholism - CIWA protocol - Recommend discontinuing CIWA protocol Hypertension -Holding home medications due to hypotensive episodes COPD -On 4 L oxygen at baseline -Family to bring in home inhalers, will DC current inhalers and use home inhaler if brought in DESTINY HANNAH MD 01/04/23 1521: Supervisory-Addendum Brief Supervisory Addendum I personally performed the gaytan portions of the visit, discussed case with resident and concur with resident documentation of history, physical exam, assessment and treatment plan unless otherwise noted. RUDDY COPE MD, RESIDENT Jan 04, 2023 11:42 DESTINY HANNAH MD Jan 04, 2023 15:21
--- NOTE | 2023-01-04 12:23 | Diagnostic Imaging Report ---
EXAMINATION: CT abdomen and pelvis without contrast. TECHNIQUE: Multiple contiguous axial images were obtained through the abdomen and pelvis without the use of intravenous contrast. All CT scans use one or more of the following dose optimizing techniques: automated exposure control, MA and/or KvP adjustment based on patient size and exam type or iterative reconstruction. HISTORY: Abdominal distention COMPARISON: 12/26/2022 FINDINGS: Lung bases: There are emphysematous changes of the lung bases. Bilateral pleural effusions, left greater than right. There is atelectasis or consolidation within the lung bases. Solid organs: The liver is normal. There is layering sludge or stones within the gallbladder. There is no biliary ductal dilation. Pancreas is normal. Spleen is normal. Adrenal glands are normal. The kidneys are normal without visualized calculus or hydronephrosis. Bowel: Enteric catheter tip is present within the distal esophagus. Contrast seen within the stomach and small bowel. There are multiple dilated loops of small bowel present. Some contrast is also seen within the colon. There is no discrete transition point seen within the small bowel although the distal small bowel is decompressed. There is gradual decrease in bowel caliber seen within the left lower quadrant. There is gaseous distention of the colon. There is focal narrowing within an area of wall thickening seen within the descending colon (series 2 image 61). There is wall thickening seen throughout the decompressed distal colon involving the sigmoid colon. The appendix is normal. Peritoneum: There is mild free fluid within the abdomen and pelvis. No loculated fluid collection or free air. No suspicious lymphadenopathy. Vasculature: There are vascular calcifications of the aorta. There is aneurysmal dilatation of the aorta measuring up to 6.3 cm status post endograft placement. Musculoskeletal: Degenerative changes of the spine without suspicious osseous lesion or compression fracture. Surgical changes of the anterior abdominal wall. Pelvis: The prostate gland is normal. A Meier catheter and air are present within the urinary bladder. IMPRESSION: 1. Dilated loops of small bowel with gradual transition of bowel caliber at the left lower quadrant. Overall the findings are improved from 12/26/2022. 2. Wall thickening of the distal descending and sigmoid colon with mild gaseous distention of the more proximal colon. Oral contrast is seen within the distal colon. This finding could be seen with infectious process or alternatively neoplastic process given the stable appearance of the colon compared to 12/26/2022. Recommend continued CT surveillance or alternatively evaluation with colonoscopy. Dictated by: Dictated on workstation # [id number]
--- NOTE | 2023-01-04 12:28 | Cardiology Progress Note ---
Subjective Date Seen by Provider: Jan 04, 2023 Time Seen by Provider: 12:25 Subjective/Events-last exam Feels okay. Atrial fibrillation with a heart rate controlled. Hemodynamically stable. Still has NG tube Review of Systems General: No Chills, No Night Sweats, No Fatigue, No Malaise, No Appetite, No Other HEENT: No Head Aches, No Visual Changes, No Eye Pain, No Ear Pain, No D ysphasia, No Sinus Congestion, No Post Nasal Drip, No Sore Throat, No Other Pulmonary: No Dyspnea, No Cough, No Pleuritic Chest Pain, No Other Cardiovascular: No: Chest Pain, Palpitations, Orthopnea, Paroxysmal Noc. Dyspnea, Edema, Lt Headedness, Other Gastrointestinal: Abdominal Pain Genitourinary: No Dysuria, No Frequency, No Incontinence, No Hematuria, No Retention, No Other Musculoskeletal: No: other, neck pain, shoulder pain, arm pain, back pain, hand pain, leg pain, foot pain Neurological: No: Weakness, Numbness, Incoordination, Change in speech, Confusion, Seizures, Other Exam Vital Signs Vital Signs Date Time Temp Pulse Resp B/P (MAP) Pulse Ox O2 Delivery O2 Flow Rate FiO2 01/04/23 11:48 36.3 01/04/23 11:26 Nasal Cannula 3.00 01/04/23 11:00 94 26 91 01/04/23 04:00 35 Physical Exam Alert oriented, no distress. NG tube in place. Neck supple no JVD. Lungs decreased breath sounds at the bases. Heart: S1-S2, irregular rhythm, no murmurs. Abdomen: Mildly distended. Minimal tenderness. Extremities no edema Labs Laboratory Tests Test 01/03/23 19:17 01/04/23 04:45 01/04/23 11:38 Range/Units Glucometer 117 H 118 H 70-110 MG/DL White Blood Count 9.6 4.3-11.0 10^3/uL Red Blood Count 3.33 L 4.30-5.52 10^6/uL Hemoglobin 11.5 L 13.3-17.7 g/dL Hematocrit 34 L 40-54 % Mean Corpuscular Volume 103 H 80-99 fL Mean Corpuscular Hemoglobin 35 H 25-34 pg Mean Corpuscular Hemoglobin Concent 33 32-36 g/dL Red Cell Distribution Width 14.6 H 10.0-14.5 % Platelet Count 165 130-400 10^3/uL Mean Platelet Volume 10.5 9.0-12.2 fL Immature Granulocyte % (Auto) 3 % Neutrophils (%) (Auto) 79 H 42-75 % Lymphocytes (%) (Auto) 11 L 12-44 % Monocytes (%) (Auto) 7 0-12 % Eosinophils (%) (Auto) 1 0-10 % Basophils (%) (Auto) 0 0-10 % Neutrophils # (Auto) 7.5 1.8-7.8 10^3/uL Lymphocytes # (Auto) 1.0 1.0-4.0 10^3/uL Monocytes # (Auto) 0.6 0.0-1.0 10^3/uL Eosinophils # (Auto) 0.1 0.0-0.3 10^3/uL Basophils # (Auto) 0.0 0.0-0.1 10^3/uL Immature Granulocyte # (Auto) 0.3 H 0.0-0.1 10^3/uL Neutrophils % (Manual) 72 % Lymphocytes % (Manual) 10 % Monocytes % (Manual) 9 % Metamyelocytes % 1 % Myelocytes % 1 % Band Neutrophils 7 % Polychromasia SLIGHT Sodium Level 135 135-145 MMOL/L Potassium Level 4.3 3.6-5.0 MMOL/L Chloride Level 105 98-107 MMOL/L Carbon Dioxide Level 26 21-32 MMOL/L Anion Gap 4 L 5-14 MMOL/L Blood Urea Nitrogen 18 7-18 MG/DL Creatinine 0.69 0.60-1.30 MG/DL Estimat Glomerular Filtration Rate 101 BUN/Creatinine Ratio 26 Glucose Level 115 H 70-105 MG/DL Calcium Level 8.0 L 8.5-10.1 MG/DL Phosphorus Level 2.8 2.3-4.7 MG/DL Magnesium Level 1.8 1.6-2.4 MG/DL A/P-Cardiology Admission Diagnosis Acute abdomen Acute respiratory failure Coronary artery disease Permanent atrial fibrillation Assessment/Plan Status post acute respiratory failure, extubated Managed by critical care team Atrial fibrillation: Heart rate is controlled. Continue present therapy. Started on anticoagulation with the Lovenox. Status post cardiac arrest: Has been stable. Continue to monitor Status post acute abdomen, gastric perforation, status post exploratory laparotomy done on December 21, 2022 Improving Managed by surgical team. Continue to monitor Coronary artery disease, history of stenting using 3.020 mm Promus stent to the right coronary artery done in March 2012. Patient was scheduled for [facility] on December 23, 2022 as outpatient. Will postpone at this time. COPD, using oxygen at night, had a complex hospitalization with Legionella pneumonia and CMV, respiratory failure, multiple cardiac arrest in October 2017. loculated pneumonia underwent right lung decortication on January 28, 2018 resulted in hydropneumothorax and marked emphysema and had prolonged chest tube placement. History of congestive heart failure, chronic left ventricular systolic dysfunction. Last echocardiogram done in June 2022 with ejection fraction 50 to 55%, pulmonary hypertension with PA pressure 50 to 55 mmHg Continue present therapy Heavy alcoholism, managed by primary care physician Abdominal aortic aneurysm, had a stent placed by Dr. Hogue done in June 2021. Hypertension: Blood pressure controlled, continue to monitor. Hyperlipidemia, continue to monitor lipids LOLA Healy DMITRY MD Jan 04, 2023 12:28
[2023-01-04] MEDS: SODIUM PHOSPHATE IV SCH ×9 (17:08)
[2023-01-04] MEDS: [UNRECOGNIZED DRUG - OTHER] IV SCH ×9 (17:08)
[2023-01-04] MEDS: SODIUM ACETATE IV SCH ×9 (17:08)
[2023-01-04] MEDS: POTASSIUM CHLORIDE IV SCH ×9 (17:08)
[2023-01-04] MEDS: LACTATED RINGERS 1,000 ML 1,000 ML IV SCH (17:52)
[2023-01-04 22:12] VITALS: BP 146/84
[2023-01-04] MEDS: MELATONIN 3 MG TABLET PO SCH (22:12)
[2023-01-05] MEDS: ENOXAPARIN 80 MG/0.8 ML SYRINGE SC SCH ×2 (02:40→13:47)
[2023-01-05] MEDS: RT-Ipratropium/Albuterol NEB 3 ML VIAL INH SCH ×3 (03:11→14:39)
[2023-01-05] MEDS: NOREPINEPHRINE 8 MG/250 ML 250 ML IV SCH (03:52)
[2023-01-05 04:20] LABS: BASOPHILS % (AUTO) 0 % (0-10); EOSINOPHILS # (AUTO) 0.1 10^3/uL (0.0-0.3); EOSINOPHILS % (AUTO) 2 % (0-10); HEMATOCRIT 33 % (40-54); HEMOGLOBIN 11.2 g/dL (13.3-17.7); LYMPHOCYTES # (AUTO) 1.1 10^3/uL (1.0-4.0); LYMPHOCYTES % (AUTO) 14 % (12-44); MEAN CORPUSCULAR HEMOGLOBIN 35 pg (25-34); MEAN CORPUSCULAR HGB CONC 34 g/dL (32-36); MEAN CORPUSCULAR VOLUME 102 fL (80-99); MEAN PLATELET VOLUME 10.9 fL (9.0-12.2); MONOCYTES # (AUTO) 0.7 10^3/uL (0.0-1.0); MONOCYTES % (AUTO) 8 % (0-12); NEUTROPHILS % (AUTO) 73 % (42-75); PLATELET COUNT 188 10^3/uL (130-400); WHITE BLOOD COUNT 8.2 10^3/uL (4.3-11.0)
[2023-01-05 04:35] LABS: POTASSIUM 4.5 MMOL/L (3.6-5.0)
[2023-01-05 04:37] LABS: CALCIUM 7.9 MG/DL (8.5-10.1)
[2023-01-05 04:41] LABS: CREATININE SERUM 0.65 MG/DL (0.60-1.30); PHOSPHORUS 2.7 MG/DL (2.3-4.7)
[2023-01-05 04:44] LABS: MAGNESIUM 1.8 MG/DL (1.6-2.4)
[2023-01-05] MEDS: fentaNYL INJECTION 100 MCG/2 ML VIAL IVP PRN ×6 (04:55→22:12)
[2023-01-05 04:59] LABS: ATYPICAL LYMPHOCYTES 1 %; BAND NEUTROPHILS 9 %; EOSINOPHILS % (MANUAL) 2 %; LYMPHOCYTES % (MANUAL) 13 %; MONOCYTES % (MANUAL) 5 %; NEUTROPHILS % (MANUAL) 68 %; REACTIVE LYMPHOCYTES 1 %
[2023-01-05] MEDS: POTASSIUM CL 10MEQ/50ML IVPB 50 ML IV SCH (05:48)
[2023-01-05] MEDS: POTASSIUM CHLORIDE 20 MEQ TABLET PO SCH (05:49)
[2023-01-05] MEDS: MAGNESIUM 1 GM/100 ML IVPB 100 ML IV SCH ×3 (05:49→07:13)
[2023-01-05] MEDS ORDERED: MAGNESIUM 1 GM/100 ML IVPB 200 ML IV ONE (05:58)
[2023-01-05] MEDS: dilTIAZem DRIP PRE-MIX 125 ML IV SCH (06:51)
--- NOTE | 2023-01-05 07:28 | Progress Note - Surgery ---
NEMESIO HODGSON 01/05/23 0727: Subjective Date Seen by a Provider: Jan 05, 2023 Time Seen by a Provider: 06:45 Subjective/Events-last exam Pt is laying in bed in no acute distress. No BM yesterday or today, but is still passing flatus. Tolerating minimal clears and still on TPN. No reported pain. Pt was able to stand with PT yesterday. Urine output is 1.41mL/kg/hr overnight. CT scan frp, 01/04 showed dilated small bowel with transition point at LLQ that has improved mildly since last CT. There is also wall thicking of the distal descending colon and sigmoid colon with mild gaseous distension of the proximal colon. Denies nausea, vomiting, chest pain, or SOA Review of Systems General: No Chills, No Night Sweats HEENT: No Head Aches, No Visual Changes Pulmonary: No Dyspnea; Cough Cardiovascular: No: Chest Pain, Palpitations Gastrointestinal: No: Nausea, Vomiting Genitourinary: No Dysuria, No Hematuria Musculoskeletal: No: neck pain, shoulder pain Neurological: No: Weakness, Numbness Objective Exam Vital Signs Date Time Temp Pulse Resp B/P (MAP) Pulse Ox O2 Delivery O2 Flow Rate FiO2 01/05/23 06:51 93 134/86 01/05/23 06:30 90 20 134/73 (100) 96 NIV Bilevel 30.00 01/05/23 06:15 103 21 124/75 (95) 98 NIV Bilevel 30.00 01/05/23 06:00 86 24 128/81 (96) 98 NIV Bilevel 30.00 01/05/23 05:45 87 20 124/94 (104) 98 NIV Bilevel 30.00 01/05/23 05:30 98 22 130/83 (96) 96 NIV Bilevel 30.00 01/05/23 05:15 92 22 125/87 (101) 97 NIV Bilevel 30.00 01/05/23 05:00 91 21 144/87 (111) 88 NIV Bilevel 30.00 01/05/23 04:45 89 32 120/94 (110) 100 NIV Bilevel 30.00 01/05/23 04:30 97 25 142/85 (108) 99 NIV Bilevel 30.00 01/05/23 04:21 94 NIV Bilevel 30 01/05/23 04:15 98 28 141/88 (99) 98 NIV Bilevel 30.00 01/05/23 04:00 94 21 129/91 (100) 99 NIV Bilevel 30.00 01/05/23 03:45 82 25 132/83 (98) 99 NIV Bilevel 30.00 01/05/23 03:30 89 8 128/89 (95) 97 NIV Bilevel 30.00 01/05/23 03:27 36.0 01/05/23 03:15 79 19 135/84 (102) 99 NIV Bilevel 30.00 01/05/23 03:11 85 22 96 30.00 01/05/23 03:00 35.8 94 19 126/90 (100) 99 NIV Bilevel 30.00 01/05/23 02:45 77 18 138/95 (120) 99 NIV Bilevel 30.00 01/05/23 02:30 83 24 147/89 (107) 99 NIV Bilevel 30.00 01/05/23 02:15 137/81 (98) 01/05/23 02:00 87 20 126/84 (100) 98 NIV Bilevel 30.00 01/05/23 01:45 136/84 (100) 01/05/23 01:30 93 19 133/81 (112) 97 NIV Bilevel 30.00 01/05/23 01:15 124/86 (98) NIV Bilevel 01/05/23 01:00 128/83 (101) NIV Bilevel 01/05/23 01:00 87 01/05/23 00:45 129/79 (85) 01/05/23 00:30 88 20 143/92 (115) 97 NIV Bilevel 01/05/23 00:15 145/85 (124) 01/05/23 00:00 90 23 125/76 (90) 97 NIV Bilevel 30.00 01/04/23 23:59 95 NIV Bilevel 30 01/04/23 23:45 89 19 131/83 (95) 97 NIV Bilevel 30.00 01/04/23 23:30 86 25 104/78 (92) 97 NIV Bilevel 30.00 01/04/23 23:15 87 21 127/77 (92) 98 NIV Bilevel 30.00 01/04/23 23:00 95 23 126/79 (102) 96 NIV Bilevel 30.00 01/04/23 23:00 126/79 (102) NIV Bilevel 30.00 01/04/23 22:45 95 18 114/75 (86) 97 NIV Bilevel 30.00 01/04/23 22:45 94 19 114/75 (86) 97 NIV Bilevel 30.00 01/04/23 22:30 93 23 123/79 (97) 95 NIV Bilevel 30.00 01/04/23 22:30 97 21 123/79 (97) 96 NIV Bilevel 30.00 01/04/23 22:15 109 29 146/84 (105) 96 NIV Bilevel 30.00 01/04/23 22:15 99 28 146/84 (105) 97 NIV Bilevel 30.00 01/04/23 22:12 106 25 96 30.00 01/04/23 22:12 104 23 97 NIV Bilevel 30.00 01/04/23 22:00 110 26 141/79 (94) 97 Nasal Cannula 1.00 01/04/23 22:00 96 26 141/79 (94) 97 High Flow N/C 1.00 01/04/23 21:45 93 27 145/83 (100) 96 Nasal Cannula 1.00 01/04/23 21:45 145/83 (100) High Flow N/C 1.00 01/04/23 21:32 96 Nasal Cannula 1.00 01/04/23 21:30 80 21 133/85 (104) 96 Nasal Cannula 1.00 01/04/23 21:30 87 30 133/85 (104) 97 High Flow N/C 1.00 01/04/23 21:15 92 29 145/79 (114) 97 Nasal Cannula 1.00 01/04/23 21:15 89 27 145/79 (114) 98 High Flow N/C 1.00 01/04/23 21:00 92 29 135/85 (112) 98 Nasal Cannula 1.00 01/04/23 21:00 90 29 135/85 (112) 97 High Flow N/C 1.00 01/04/23 20:45 91 28 145/86 (123) 97 Nasal Cannula 1.00 01/04/23 20:45 92 26 145/86 (123) 93 High Flow N/C 1.00 01/04/23 20:30 96 13 151/90 (114) 98 High Flow N/C 1.00 01/04/23 20:30 105 22 151/90 (114) 96 Nasal Cannula 1.00 01/04/23 20:20 96 Nasal Cannula 1.00 01/04/23 20:15 98 30 152/78 (100) 94 Nasal Cannula 1.00 01/04/23 20:15 89 33 152/78 (100) 96 High Flow N/C 1.00 01/04/23 20:00 96 27 145/86 (107) 97 Nasal Cannula 1.00 01/04/23 20:00 96 28 145/86 (107) 97 High Flow N/C 1.00 01/04/23 19:45 93 29 158/92 (114) 98 Nasal Cannula 1.00 01/04/23 19:31 36.0 01/04/23 19:30 86 32 145/88 (114) 98 Nasal Cannula 1.00 01/04/23 19:15 96 17 147/86 (116) 96 Nasal Cannula 1.00 01/04/23 19:04 93 25 148/86 (112) 98 Nasal Cannula 1.00 01/04/23 19:00 91 01/04/23 19:00 91 22 79/68 (73) 94 Nasal Cannula 1.00 01/04/23 18:19 93 OxyMask 6.00 01/04/23 18:00 87 22 139/77 (97) 97 Nasal Cannula 1.00 01/04/23 17:00 89 21 149/81 (103) 100 Nasal Cannula 2.00 01/04/23 16:00 90 24 127/86 (100) 100 Nasal Cannula 2.00 01/04/23 16:00 98 NIV Bilevel 1.00 01/04/23 15:40 35.8 01/04/23 15:22 87 140/94 01/04/23 15:00 94 15 122/77 (92) 97 Nasal Cannula 2.00 01/04/23 14:50 100 High Flow N/C 2.00 01/04/23 14:24 Nasal Cannula 2.00 01/04/23 14:00 90 22 138/86 (103) 100 Nasal Cannula 3.00 01/04/23 13:00 96 22 138/76 (96) 98 Nasal Cannula 3.00 01/04/23 12:28 93 01/04/23 12:00 98 NIV Bilevel 3.00 01/04/23 11:48 36.3 01/04/23 11:26 Nasal Cannula 3.00 01/04/23 11:00 94 26 138/103 (115) 91 Nasal Cannula 5.00 01/04/23 10:00 89 26 114/88 (97) 91 Nasal Cannula 5.00 01/04/23 09:51 91 High Flow N/C 6.00 01/04/23 09:00 76 24 125/76 (92) 92 Nasal Cannula 5.00 01/04/23 08:00 92 NIV Bilevel 5.00 01/04/23 08:00 101 19 148/69 (95) 92 Nasal Cannula 5.00 01/04/23 07:53 36.1 I & O 01/05/23 07:00 Intake Total 1850 ml Output Total 2625 ml Balance -775 ml Capillary Refill : Less Than 3 Seconds General Appearance: No Apparent Distress, WD/WN, Chronically ill HEENT: PERRL/EOMI, Normal ENT Inspection, Other (NG tube still in place) Neck: Full Range of Motion, Normal Inspection Respiratory: Lungs Clear, No Accessory Muscle Use, No Respiratory Distress, Decreased Breath Sounds Cardiovascular: No Edema, Irregularly Irregular Peripheral Pulses: 2+ Dorsalis Pedis (R), 2+ Left Dors-Pedis (L), 2+ Radial Pulses (R), 2+ Radial Pulses (L) Gastrointestinal: soft, tenderness (minimal midline before, would looks ok, delbert ok), other (has BS, normal) Extremity: Non Tender, No Calf Tenderness, No Pedal Edema Neurologic/Psychiatric: Alert, Oriented x3, Normal Mood/Affect Skin: Normal Color, Warm/Dry Lymphatic: No Adenopathy Results Lab Laboratory Tests 01/04/23 11:38: Glucometer 118H 01/04/23 17:10: Glucometer 114H 01/04/23 23:24: Glucometer 134H 01/05/23 04:00: White Blood Count 8.2, Red Blood Count 3.25L, Hemoglobin 11.2L, Hematocrit 33L, Mean Corpuscular Volume 102H, Mean Corpuscular Hemoglobin 35H, Mean Corpuscular Hemoglobin Concent 34, Red Cell Distribution Width 14.6H, Platelet Count 188, Mean Platelet Volume 10.9, Immature Granulocyte % (Auto) 3, Neutrophils (%) (Aut o) 73, Lymphocytes (%) (Auto) 14, Monocytes (%) (Auto) 8, Eosinophils (%) (Auto) 2, Basophils (%) (Auto) 0, Neutrophils # (Auto) 6.0, Lymphocytes # (Auto) 1.1, Monocytes # (Auto) 0.7, Eosinophils # (Auto) 0.1, Basophils # (Auto) 0.0, Immature Granulocyte # (Auto) 0.3H, Neutrophils % (Manual) 68, Lymphocytes % (Manual) 13, Monocytes % (Manual) 5, Eosinophils % (Manual) 2, Band Neutrophils 9, Atypical Lymphocytes 1, Reactive Lymphocytes 1, Macrocytosis SLIGHT, Sodium Level 132L, Potassium Level 4.5, Chloride Level 102, Carbon Dioxide Level 26, Anion Gap 4L, Blood Urea Nitrogen 17, Creatinine 0.65, Estimat Glomerular Filtration Rate 103, BUN/Creatinine Ratio 26, Glucose Level 96, Calcium Level 7.9L, Phosphorus Level 2.7, Magnesium Level 1.8 Microbiology 12/26/22 Gram Stain - Final, Complete 12/26/22 Sputum Culture - Final, Complete Klebsiella pneumoniae Assessment/Plan Assessment/Plan Assessment/Plan S/P Ex lap with partial gastric resection S/P Respiratory Arrest Gastric Distention Ileus Afib Monitor blood pressure- stable abdomen is distended. NG decompression tube clamped. Currently on clears Incentive spirometer Meropenem TPN for nutrition. Lovenox urine output [id number] BRYON Sanchez DO 01/05/238: Subjective Subjective/Events-last exam Patient breathing a little better. Having flatus and bm this morning. Tolerating clears some. On TPN. Pain controlled. Trying to increase his ac tivity. Denies n/v fever sweats chills or chest pain at this time. Objective Exam General Appearance: Anxious, Chronically ill HEENT: PERRL/EOMI, Normal ENT Inspection Neck: Full Range of Motion, Normal Inspection Respiratory: Chest Non Tender, No Accessory Muscle Use, No Respiratory Distress Cardiovascular: No JVD, Irregularly Irregular Gastrointestinal: soft, distended (minimal), tenderness (minimal midline before, wound looks ok, delbert ok), other Extremity: Non Tender, No Calf Tenderness Neurologic/Psychiatric: Alert, Oriented x3, Normal Mood/Affect Skin: Normal Color, Warm/Dry Lymphatic: No Adenopathy Assessment/Plan Assessment/Plan Assessment/Plan S/P Ex lap with partial gastric resection S/P Respiratory Arrest Gastric Distention Ileus Afib Monitor blood pressure- stable abdomen is distended but improving having bowel function ng tube removed Currently on clears will see if tolerates and will advance if tolerates will continue tpn currently Incentive spirometer Meropenem- completed Lovenox dc woods breathing seems to be improving but still significant issue, continue to try and opitimize and get at baseline for him this may take time. I have talke to family about LTAC but was not interested in discussing further at that time. will continue to discuss with family options as he slowly continues to improve. Will still need colonoscopy due to thickening of the sigmoid, which he did have planned but due to condition will need to hold off at this time. Supervisory-Addendum Brief Verification & Attestation Participated in pt care: history, MDM, physical Personally performed: exam, history, MDM, supervision of care Care discussed with: Medical Student Procedures: n/a Results interpretation: Verified all documentation Verification and Attestation of Medical Student E/M Service A medical student performed and documented this service in my presence. I reviewed and verified all information documented by the medical student and made modifications to such information, when appropriate. I personally performed the physical exam and medical decision making. Bryon Khalil, Jan 05, 2023,21:43 NEMESIO HODGSON Jan 05, 2023 07:27 BRYON KHALIL DO Jan 05, 2023 21:38
[2023-01-05] MEDS: PANTOPRAZOLE INJECTION 40 MG VIAL IV SCH ×2 (08:40→20:36)
--- NOTE | 2023-01-05 09:16 | Physical Therapy Daily Note ---
PT Daily Note-Current Subjective Patient agrees to therapy. Pain Section J - Health Conditions 1. Rarely or not at all 2. Occasionally 3. Frequently 4. Almost constantly 8. Unable to answer Pain Effect on Sleep: 1 Pain Interference with Therapy: 1 Pain Interference w/Day-to-Day: 1 Mental Status Patient Orientation: Normal For Age Attachments: NG Tube, Oxygen, Meier Catheter, IV Transfers SCALE: Activities may be completed with or without assistive devices. 6-Jbjpxmvajc-wxxnrrc completes the activity by him/herself with no assistance from a helper. 5-Set-up or Clean-up Assistance-helper sets up or cleans up; patient completes activity. [place] assists only prior to or following the activity. 4-Supervision or Touching Assistance-helper provides verbal cues and/or touching/steadying and/or contact guard assistance as patient completes activity. Assistance may be provided throughout the activity or intermittently. 3-Partial/Moderate Assistance-helper does LESS THAN HALF the effort. [place] lifts, holds or supports trunk or limbs, but provides less than half the effort. 2-Substantial/Maximal Assistance-helper does MORE THAN HALF the effort. [place] lifts or holds trunk or limbs and provides more than half the effort. 4-Sbckgnquk-qtvubn does ALL the effort. Patient does none of the effort to complete the activity. Or, the assistance of 2 or more helpers is required for the patient to complete the activity. If activity was not attempted, code reason: 7-Patient Refused. 9-Not Applicable-not attempted and the patient did not perform the activity be fore the current illness, exacerbation or injury. 10-Not Attempted due to Environmental Limitations-(lack of equipment, weather restraints, etc.). 88-Not Attempted due to Medical Conditions or Safety Concerns. Lying to Sitting/Side of Bed(Q: 4 Sit to Stand (QC): 4 Chair/Toi-hq-Mxhnf Xfer(QC): 4 Gait Training Distance: 10' Walk 10 feet (QC): 4 Walk 50 ft with 2 Turns(QC): 88 Gait Assistive Device: FWW sit to stand SBA with ambulation to recliner Assessment Patient HR became highly elevated during session with minimal activity. SAO2 remain in the 90's with O2 in place. RN present. PT Furnace Liner Goals Furnace Liner Goals PT Furnace Liner Goals Time Frame: Jan 30, 2023 Roll Left & Right (QC): 6 Sit to Lying (QC): 6 Lying-Sitting on Side/Bed(QC): 6 Sit to Stand (QC): 6 Chair/Yts-ox-Dxous Xfer(QC): 6 Toilet Transfer (QC): 6 Walk 10 feet (QC): 6 Walk 50ft with 2 Turns (QC): 6 Walk 150 ft (QC): 6 PT Plan Treatment/Plan Treatment Plan: Continue Plan of Care Treatment Plan: Bed Mobility, Education, Functional Activity Renée, Functional Strength, Gait, Safety, Therapeutic Exercise, Transfers Treatment Duration: Jan 30, 2023 Frequency: 5 times per week Estimated Hrs Per Day: .25 hour per day Patient and/or Family Agrees t: Yes Time Time In: 832 Time Out: 848 DATE: Jan 05, 2023 Total Billed Treatment Time: 16 Total Billed Treatment 1 visit FA 16 min TOMMY WHITT PT Jan 05, 2023 09:15
[2023-01-05] MEDS: meTOprolol INJECTION 5 MG/5 ML VIAL IV PRN (09:27)
--- NOTE | 2023-01-05 09:30 | Occupational Ther Daily Note ---
OT Current Status-Daily Note Subjective Agreeable to OT Pain Numeric Pain Scale: 7 (RN aware and will administer pain meds) Mental Status/Objective Patient Orientation: Person, Place, Time, Situation Attachments: Meier Catheter, IV, NG Tube, Oxygen, SCD's, Telemetry ADL-Treatment BM hygiene, gown change, face hygiene Therapy Code Descriptions/Definitions Functional [place] Measure: 0=Not Assessed/NA 4=Minimal Assistance 1=Total Assistance 5=Supervision or Setup 2=Maximal Assistance 6=Modified [place] 3=Moderate Assistance 7=Complete IndependenceSCALE: Activities may be completed with or without assistive devices. 2-Qcnbtwmbzv-avfzsfc completes the activity by him/herself with no assistance from a helper. 5-Set-up or Clean-up Assistance-helper sets up or cleans up; patient completes activity. [place] assists only prior to or following the activity. 4-Supervision or Touching Assistance-helper provides verbal cues and/or touching/steadying and/or contact guard assistance as patient completes ac tivity. Assistance may be provided throughout the activity or intermittently. 3-Partial/Moderate Assistance-helper does LESS THAN HALF the effort. [place] lifts, holds or supports trunk or limbs, but provides less than half the effort. 2-Substantial/Maximal Assistance-helper does MORE THAN HALF the effort. [place] lifts or holds trunk or limbs and provides more than half the effort. 4-Irzehsflp-shxdho does ALL the effort. Patient does none of the effort to complete the activity. Or, the assistance of 2 or more helpers is required for the patient to complete the activity. If activity was not attempted, code reason: 7-Patient Refused. 9-Not Applicable-not attempted and the patient did not perform the activity before the current illness, exacerbation or injury. 10-Not Attempted due to Environmental Limitations-(lack of equipment, weather restraints, etc.). 88-Not Attempted due to Medical Conditions or Safety Concerns. Eating (QC): 7 (clears) Oral Hygiene (QC): 5 Upper Body Dressing (QC): 3 washing face and changing gown, HR 160+ Education OT Patient Education: Correct positioning, Exercise program, Modified ADL techniques, Progress toward Goal/Update tx plan, Purpose of tx/functional activities, Reviewed precautions, Rehab process, Safety issues, Transfer techniques Teaching Recipient: Patient Teaching Methods: Demonstration, Discussion Response to Teaching: Reinforcement Needed OT Group Home Goals Telegraph Messenger Goals Eating (QC): 6 Oral Hygiene (QC): 5 Toileting Hygiene (QC): 4 Shower/Bathe Self (QC): 4 Upper Body Dressing (QC): 4 Lower Body Dressing (QC): 4 On/Off Footwear (QC): 4 1=Demonstrate adherence to instructed precautions during ADL tasks. 2=Patient will verbalize/demonstrate understanding of assistive devices/modifications for ADL. 3=Patient will improve strength/tolerance for activity to enable patient to perform ADL's. OT Education/Plan Problem List/Assessment Assessment: Decreased Activ Tolerance, Decreased Safety Aware, Decreased UE Strength, Impaired Coordination, Impaired Funct Balance, Impaired Self-Care Skills Discharge Recommendations Plan/Recommendations: Continue POC Treatment Plan/Plan of Care Treatment,Training & Education: Yes Patient would benefit from OT for education, treatment and training to promote independence in ADL's, mobility, safety and/or upper extremity function for ADL's. Plan of Care: ADL Retraining, Functional Mobility, Group Exercise/Act as Ind, UE Funct Exercise/Act Treatment Duration: Jan 08, 2023 Frequency: 3 times per week (3-5 times per week) Estimated Hrs Per Day: .25 hour per day Agreement: Yes Rehab Potential: Fair Time Start Time: 08:26 Stop Time: 08:50 DATE: Jan 05, 2023 Total Time Billed (hr/min): 24 Billed Treatment Time ADL 24 min SARAH CARTAGENA OT Jan 05, 2023 09:30
[2023-01-05] MEDS: TIOTROPIUM INH 4 GM (SPIRIVA Respimat) IH SCH (09:49)
[2023-01-05] MEDS: FLUTICASONE/VILANTEROL 200/25 MCG (14 DOSES) IH SCH (09:50)
--- NOTE | 2023-01-05 10:04 | Tele-ICU Progress Note ---
Subjective Date Seen by a Provider: Jan 05, 2023 Time Seen by a Provider: 10:03 Subjective/Events-last exam (Tele-ICU Physician , Progress Note ) Service provided via interactive audio and video telecommunications E-CARE system to a patient admitted to ICU bed in [facility]. Patient is seen today due to persistent need of ICU care Available chart/ vitals / labs / Images reviewed Video assessment done using teleICU camera, rest of exam as per RN Discussed with RN Events overnight : Afebrile hemodynamically stable Respiratory - 50% I/O = pos Drips: d5 LR 50 cardizem 10 Pressors- - OFF Hospital course: (12/21) 67yr old male admitted s/p Ex. Lap partial gastric resection(gastric perf). Intubated (12/22) Extubated. (12/26) pt hypoxic on bipap-Intubated, arrested after intubation w/ ROSC, CTH - WNL , CT abd- high-grade small bowel obstruction. 12/27- on levo 0.04 and vaso 0.03, Fio2 50 % , RASS -2 on propofol 30 fentanyl 50 , cardizem 5 12/28- fio2 40 % , on levo 0.04 and vaso 0.03, Fio2 50 % , RASS -2 on propofol 30 fentanyl 50 , cardizem 5 12/28- EXTUBATED - to BIPAP 12/29- NC , bipap night , OFF pressors 12/30- BIPAP til 4 am - NC 4 L , AAO, cardizem 5 , NG OFF suction --> Increased abd distention --> back on LIS 12/31- confused , BIPAP 30/09 50% 30 tv 600 MV 17 L , steroid x1 IV , started MERREM . low UO - woods replaced , DID NOT TOLERATED OFF BIPAP 01/01 - 6L o2 , TPN started A/P Acute resp failure , hypoxic ( extubated post op 12/22 --> re-intubated on 12/26--->12/28- EXTUBATED - to BIPAP - + secretions , on nebs /ICS - today on 1 L NC , biap at [facility] - IS : doing his best with rib Fr pain and confusion Card arrest 12/25 with ROSC 5 min ( secondary to resp failure? ) =recovered well Gastric perforation, had parital [id number]/6 --CT 12/25 - high-grade small bowel obstruction. - NG in place -- clammped - ? remove - as per sx started MERREM 12/31- > 5 d - off 01/05 Possivle PNA with patchy airspace opacity on CT ch - sputum 12/26-Klebsiella - on zosyn till 12/30 --started MERREM 12/31 -- > 5 d - off 01/05 Chronic a fib with RVR ( s/p dig, metoprolol prn -cardizem gtt OFF - to PO today -xarelro on hold - Lovenox full dose - cards follow Multiple right rib fractures. - post arrest 's CPR , no PTX - cont pain control , IS CAD -EF 40 % Pulm htn with PSAP in 50's - monitor for VO - neg IV balance COPD -using oxygen at night, - CT with Severe emphysematous change and bullous disease - + wheezing - increase nebs frequency - add LABA/ICS - try to avoid systemic steroids , one dose 12/30 Multiple Lung infection in past -Hx of pulmonary aspergillous 2019 S/p right lung decortication on January 28, 2018 resulted in hydropneumothorax and marked emphysema and had prolonged chest tube placement. ETON abuse - not recently as per report AAA< s/p with stent in place Nutrition - NPO with SBO - on TPN Urinary retntion /low UP 12/31 - woods replaced Electrolites replacement Accuchecks Shock - multifactorial RESOLVED - OFF PRESSORS Lines : R IJ 12/26 , art line - removed 12/29 , (Central Line Necessity Reviewed) Woods: 12/31 Urinary retntion /low UP 12/31- woods replaced OG: Nutrition: npo Analgesia: Anxiety/ delirium VTE Prophylaxis: blake 40 Stress Ulcer Prophylaxis: ppi Plans in collaboration with bedside consultants and IM MDs. Discussed with RN to reach out if any questions or concerns Case and care daily discussed on multidisciplinary rounds ( RN, PharmD, Bottom Stainer , Respiratory Therapy, casing worker ) 21 minutes of critical care time was devoted to this patient today, required to treat and/or prevent further deterioration of critical care condition ( as above ) . I am remotely monitoring this patient from another state. I am unable to do the bedside exam, and history/physical and pertinent information is taken from other notes in the computer and bedside staff. Sepsis Event Evaluation Height, Weight, BMI Height: 6'4.00" Weight: 154lbs. 2.0oz. 69.463341um; 22.31 BMI Method:Stated Exam Exam Patient acknowledged, consented, and participated in this virtual visit which was conducted using real time audio/video Vital Signs Date Time Temp Pulse Resp B/P (MAP) Pulse Ox O2 Delivery O2 Flow Rate FiO2 01/05/23 09:50 93 Nasal Cannula 1.00 01/05/23 09:00 130 21 123/85 (98) 93 Nasal Cannula 1.00 01/05/23 08:03 36.1 01/05/23 08:00 96 NIV Bilevel 1.00 01/05/23 08:00 90 20 125/81 (96) 96 Nasal Cannula 1.00 01/05/23 07:00 90 01/05/23 07:00 86 19 140/103 (115) 97 NIV Bilevel 30.00 01/05/23 06:51 93 134/86 01/05/23 06:30 90 20 134/73 (100) 96 NIV Bilevel 30.00 01/05/23 06:15 103 21 124/75 (95) 98 NIV Bilevel 30.00 01/05/23 06:00 86 24 128/81 (96) 98 NIV Bilevel 30.00 01/05/23 05:45 87 20 124/94 (104) 98 NIV Bilevel 30.00 01/05/23 05:30 98 22 130/83 (96) 96 NIV Bilevel 30.00 01/05/23 05:15 92 22 125/87 (101) 97 NIV Bilevel 30.00 01/05/23 05:00 91 21 144/87 (111) 88 NIV Bilevel 30.00 01/05/23 04:45 89 32 120/94 (110) 100 NIV Bilevel 30.00 01/05/23 04:30 97 25 142/85 (108) 99 NIV Bilevel 30.00 01/05/23 04:21 94 NIV Bilevel 30 01/05/23 04:15 98 28 141/88 (99) 98 NIV Bilevel 30.00 01/05/23 04:00 94 21 129/91 (100) 99 NIV Bilevel 30.00 01/05/23 03:45 82 25 132/83 (98) 99 NIV Bilevel 30.00 01/05/23 03:30 89 8 128/89 (95) 97 NIV Bilevel 30.00 01/05/23 03:27 36.0 01/05/23 03:15 79 19 135/84 (102) 99 NIV Bilevel 30.00 01/05/23 03:11 85 22 96 30.00 01/05/23 03:00 35.8 94 19 126/90 (100) 99 NIV Bilevel 30.00 01/05/23 02:45 77 18 138/95 (120) 99 NIV Bilevel 30.00 01/05/23 02:30 83 24 147/89 (107) 99 NIV Bilevel 30.00 01/05/23 02:15 137/81 (98) 01/05/23 02:00 87 20 126/84 (100) 98 NIV Bilevel 30.00 01/05/23 01:45 136/84 (100) 01/05/23 01:30 93 19 133/81 (112) 97 NIV Bilevel 30.00 01/05/23 01:15 124/86 (98) NIV Bilevel 01/05/23 01:00 128/83 (101) NIV Bilevel 01/05/23 01:00 87 01/05/23 00:45 129/79 (85) 01/05/23 00:30 88 20 143/92 (115) 97 NIV Bilevel 01/05/23 00:15 145/85 (124) 01/05/23 00:00 90 23 125/76 (90) 97 NIV Bilevel 30.00 01/04/23 23:59 95 NIV Bilevel 30 01/04/23 23:45 89 19 131/83 (95) 97 NIV Bilevel 30.00 01/04/23 23:30 86 25 104/78 (92) 97 NIV Bilevel 30.00 01/04/23 23:15 87 21 127/77 (92) 98 NIV Bilevel 30.00 01/04/23 23:00 95 23 126/79 (102) 96 NIV Bilevel 30.00 01/04/23 23:00 126/79 (102) NIV Bilevel 30.00 01/04/23 22:45 95 18 114/75 (86) 97 NIV Bilevel 30.00 01/04/23 22:45 94 19 114/75 (86) 97 NIV Bilevel 30.00 01/04/23 22:30 93 23 123/79 (97) 95 NIV Bilevel 30.00 01/04/23 22:30 97 21 123/79 (97) 96 NIV Bilevel 30.00 01/04/23 22:15 109 29 146/84 (105) 96 NIV Bilevel 30.00 01/04/23 22:15 99 28 146/84 (105) 97 NIV Bilevel 30.00 01/04/23 22:12 106 25 96 30.00 01/04/23 22:12 104 23 97 NIV Bilevel 30.00 01/04/23 22:00 110 26 141/79 (94) 97 Nasal Cannula 1.00 01/04/23 22:00 96 26 141/79 (94) 97 High Flow N/C 1.00 01/04/23 21:45 93 27 145/83 (100) 96 Nasal Cannula 1.00 01/04/23 21:45 145/83 (100) High Flow N/C 1.00 01/04/23 21:32 96 Nasal Cannula 1.00 01/04/23 21:30 80 21 133/85 (104) 96 Nasal Cannula 1.00 01/04/23 21:30 87 30 133/85 (104) 97 High Flow N/C 1.00 01/04/23 21:15 92 29 145/79 (114) 97 Nasal Cannula 1.00 01/04/23 21:15 89 27 145/79 (114) 98 High Flow N/C 1.00 01/04/23 21:00 92 29 135/85 (112) 98 Nasal Cannula 1.00 01/04/23 21:00 90 29 135/85 (112) 97 High Flow N/C 1.00 01/04/23 20:45 91 28 145/86 (123) 97 Nasal Cannula 1.00 01/04/23 20:45 92 26 145/86 (123) 93 High Flow N/C 1.00 01/04/23 20:30 96 13 151/90 (114) 98 High Flow N/C 1.00 01/04/23 20:30 105 22 151/90 (114) 96 Nasal Cannula 1.00 01/04/23 20:20 96 Nasal Cannula 1.00 01/04/23 20:15 98 30 152/78 (100) 94 Nasal Cannula 1.00 01/04/23 20:15 89 33 152/78 (100) 96 High Flow N/C 1.00 01/04/23 20:00 96 27 145/86 (107) 97 Nasal Cannula 1.00 01/04/23 20:00 96 28 145/86 (107) 97 High Flow N/C 1.00 01/04/23 19:45 93 29 158/92 (114) 98 Nasal Cannula 1.00 01/04/23 19:31 36.0 01/04/23 19:30 86 32 145/88 (114) 98 Nasal Cannula 1.00 01/04/23 19:15 96 17 147/86 (116) 96 Nasal Cannula 1.00 01/04/23 19:04 93 25 148/86 (112) 98 Nasal Cannula 1.00 01/04/23 19:00 91 01/04/23 19:00 91 22 79/68 (73) 94 Nasal Cannula 1.00 01/04/23 18:19 93 OxyMask 6.00 01/04/23 18:00 87 22 139/77 (97) 97 Nasal Cannula 1.00 01/04/23 17:00 89 21 149/81 (103) 100 Nasal Cannula 2.00 01/04/23 16:00 90 24 127/86 (100) 100 Nasal Cannula 2.00 01/04/23 16:00 98 NIV Bilevel 1.00 01/04/23 15:40 35.8 01/04/23 15:22 87 140/94 01/04/23 15:00 94 15 122/77 (92) 97 Nasal Cannula 2.00 01/04/23 14:50 100 High Flow N/C 2.00 01/04/23 14:24 Nasal Cannula 2.00 01/04/23 14:00 90 22 138/86 (103) 100 Nasal Cannula 3.00 01/04/23 13:00 96 22 138/76 (96) 98 Nasal Cannula 3.00 01/04/23 12:28 93 01/04/23 12:00 98 NIV Bilevel 3.00 01/04/23 11:48 36.3 01/04/23 11:26 Nasal Cannula 3.00 01/04/23 11:00 94 26 138/103 (115) 91 Nasal Cannula 5.00 I & O 01/05/23 06:59 Intake Total 1850 ml Output Total 2625 ml Balance -775 ml Height & Weight Height: 6'4.00" Weight: 154lbs. 2.0oz. 69.219697ot; 22.31 BMI Method:Stated General Appearance: No Apparent Distress, WD/WN, Chronically ill HEENT: PERRL/EOMI, Normal ENT Inspection, Other (NG tube still in place) Neck: Full Range of Motion, Normal Inspection Respiratory: Lungs Clear, No Accessory Muscle Use, No Respiratory Distress, De creased Breath Sounds Cardiovascular: No Edema, Irregularly Irregular Capillary Refill: Less Than 3 Seconds Peripheral Pulses: 2+ Dorsalis Pedis (R), 2+ Left Dors-Pedis (L), 2+ Radial Pulses (R), 2+ Radial Pulses (L) Gastrointestinal: soft, tenderness (minimal midline before, would looks ok, delbert ok), other (has BS, normal) Extremity: Non Tender, No Calf Tenderness, No Pedal Edema Neurologic/Psychiatric: Alert, Oriented x3, Normal Mood/Affect Skin: Normal Color, Warm/Dry Lymphatic: No Adenopathy Results Lab Laboratory Tests 01/04/23 04:45 01/05/23 04:00 Assessment/Plan Assessment/Plan 1 ALEXIS MARSH MD Jan 05, 2023 10:04
--- NOTE | 2023-01-05 10:45 | Progress Note ---
RUDDY COPE MD, RESIDENT 01/05/23 1045: Subjective Subjective/Events-last exam Patient is doing well this morning. Is eager to have the NG tube taken out. He continues to have desaturations with movement or when talking however he is asymptomatic and denies any shortness of breath with this. States his pain is well controlled at this time. Did have a bowel movement this morning. He otherwise has no concerns today. Review of Systems General: No Chills, No Fatigue HEENT: No Head Aches, No Ear Pain Pulmonary: No Dyspnea, No Cough, No Pleuritic Chest Pain Cardiovascular: No: Chest Pain, Palpitations, Edema Gastrointestinal: No: Nausea, Vomiting, Abdominal Pain, Diarrhea, Constipation Genitourinary: No Dysuria Objective Exam Last Set of Vital Signs Vital Signs Date Time Temp Pulse Resp B/P (MAP) Pulse Ox O2 Delivery O2 Flow Rate FiO2 01/05/23 09:50 93 Nasal Cannula 1.00 01/05/23 09:00 130 21 123/85 (98) 01/05/23 08:03 36.1 01/05/23 04:21 30 Capillary Refill : Less Than 3 Seconds I&O Intake and Output 01/04/23 23:59 Intake Total 1800 ml Output Total 3000 ml Balance -1200 ml Intake Oral 750 ml IV Total 300 ml Tube Feeding 750 ml Output Urine Total 3000 ml General: Alert, Oriented X3 HEENT: Atraumatic, EOMI Neck: Supple, No Thyromegaly Lungs: Clear to Auscultation, Normal Air Movement Heart: Other (Tachycardic, irregularly irregular) Abdomen: Normal Bowel Sounds, Soft, No Tenderness, Other (Midline incision with delbert) Extremities: No Edema Neuro: Normal Speech Psych/Mental Status: Mental Status NL Results/Procedures Lab Laboratory Tests 01/04/23 11:38: Glucometer 118H 01/04/23 17:10: Glucometer 114H 01/04/23 23:24: Glucometer 134H 01/05/23 04:00: White Blood Count 8.2, Red Blood Count 3.25L, Hemoglobin 11.2L, Hematocrit 33L, Mean Corpuscular Volume 102H, Mean Corpuscular Hemoglobin 35H, Mean Corpuscular Hemoglobin Concent 34, Red Cell Distribution Width 14.6H, Platelet Count 188, Mean Platelet Volume 10.9, Immature Granulocyte % (Auto) 3, Neutrophils (%) (Auto) 73, Lymphocytes (%) (Auto) 14, Monocytes (%) (Auto) 8, Eosinophils (%) (Auto) 2, Basophils (%) (Auto) 0, Neutrophils # (Auto) 6.0, Lymphocytes # (Auto) 1.1, Monocytes # (Auto) 0.7, Eosinophils # (Auto) 0.1, Basophils # (Auto) 0.0, Immature Granulocyte # (Auto) 0.3H, Neutrophils % (Manual) 68, Lymphocytes % (Manual) 13, Monocytes % (Manual) 5, Eosinophils % (Manual) 2, Band Neutrophils 9, Atypical Lymphocytes 1, Reactive Lymphocytes 1, Macrocytosis SLIGHT, Sodium Level 132L, Potassium Level 4.5, Chloride Level 102, Carbon Dioxide Level 26, Anion Gap 4L, Blood Urea Nitrogen 17, Creatinine 0.65, Estimat Glomerular Filtration Rate 103, BUN/Creatinine Ratio 26, Glucose Level 96, Calcium Level 7.9L, Phosphorus Level 2.7, Magnesium Level 1.8 Microbiology 12/26/22 Gram Stain - Final, Complete 12/26/22 Sputum Culture - Final, Complete Klebsiella pneumoniae Radiology CT abd/pelvis: IMPRESSION: 1. Large volume of intra-abdominal free air of uncertain etiology but concerning for hollow viscus perforation. There are a few foci along the left upper quadrant near the stomach which could suggest perforated ulceration. 2. 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 No dissection or significant stenosis. 3. COPD without other acute abnormality in the chest. CXR: IMPRESSION: Emphysema. No focal consolidation or swathi pulmonary edema. Endotracheal tube tip projects over the proximal trachea. Assessment/Plan Assessment/Plan Assessment & Plan 67-year-old male presenting with abdominal pain status post exploratory lapar otomy. Required intubation on 12/26 with CPR performed shortly afterwards prior to achieving ROSC. Patient successfully extubated on 12/28. Continues to remain stable this morning. Chronic resp failure, post-code - Successfully extubated on 12/28 - Endotracheal tube culture grew Klebsiella pneumoniae - CT chest from 12/26 notable for severe emphysematous change and bullous disease with patchy airspace opacity which may be due to pneumonia or edema. - Sputum culture growing rare gram-negative rods -IV meropenem course completed today, 01/05/2023 - Continue BiPAP as needed overnight however goal is to keep patient on 4 L nasal cannula - MAT protocol Shock, mixed - Resolved -Continues to do well off of pressors Rib pain, improving - Secondary to chest compressions -Continues to improve Atrial fibrillation - We will transition patient to oral diltiazem 30 mg every 6 hours, will discontinue diltiazem drip after the second dose - Cardiology following, appreciate recommendations - If rates well controlled, will look at transferring patient out of the ICU SBO -TPN started 01/01 -Clear liquid diet, tolerating well -Will remove NG tube today, diet transition per surgery -Okay to take oral medications -PT/OT following, will see if patient is a candidate for inpatient rehab versus going home with home health Gastric perforation s/p partial gastrectomy -CT abdomen from 12/26 notable for marked distention of the stomach and proximal small bowel concerning for high-grade small bowel obstruction. Similar prior pneumoperitoneum -Surgery following, appreciate recommendations Alcoholism - CIWA protocol - Recommend discontinuing CIWA protocol Hypertension -Holding home medications due to hypotensive episodes COPD -On 4 L oxygen at baseline -Starting home inhalers DESTINY HANNAH MD 01/06/23 1317: Supervisory-Addendum Brief Supervisory Addendum I personally performed the gaytan portions of the visit, discussed case with resident and concur with resident documentation of history, physical exam, assessment and treatment plan unless otherwise noted. RUDDY COPE MD, RESIDENT Jan 05, 2023 10:45 DESTINY HANNAH MD Jan 06, 2023 13:17
[2023-01-05] MEDS ORDERED: PATIENT MAY USE OWN MED,SINGLE MED PO SCH (11:00)
[2023-01-05] MEDS: dilTIAZem 30 MG TABLET PO SCH ×3 (11:16→22:12)
--- NOTE | 2023-01-05 13:20 | Cardiology Progress Note ---
Subjective Date Seen by Provider: Jan 05, 2023 Time Seen by Provider: 10:12 Subjective/Events-last exam Feels better. NG tube was pulled out. Patient is still on liquid diet. In atrial fibrillation with controlled rate. Exam Vital Signs Vital Signs Date Time Temp Pulse Resp B/P (MAP) Pulse Ox O2 Delivery O2 Flow Rate FiO2 01/05/23 12:51 88 01/05/23 12:00 89 NIV Bilevel 1.00 01/05/23 11:46 35.9 01/05/23 11:00 24 01/05/23 04:21 30 Physical Exam Alert oriented, no distress. Neck supple no JVD. Lungs: Decreased breath sounds bilaterally. Heart: S1-S2, irregular rhythm. Abdomen soft, mildly distended, nontender. Extremities no edema Labs Laboratory Tests Test 01/04/23 17:10 01/04/23 23:24 01/05/23 04:00 01/05/23 11:54 Range/Units Glucometer 114 H 134 H 93 70-110 MG/DL White Blood Count 8.2 4.3-11.0 10^3/uL Red Blood Count 3.25 L 4.30-5.52 10^6/uL Hemoglobin 11.2 L 13.3-17.7 g/dL Hematocrit 33 L 40-54 % Mean Corpuscular Volume 102 H 80-99 fL Mean Corpuscular Hemoglobin 35 H 25-34 pg Mean Corpuscular Hemoglobin Concent 34 32-36 g/dL Red Cell Distribution Width 14.6 H 10.0-14.5 % Platelet Count 188 130-400 10^3/uL Mean Platelet Volume 10.9 9.0-12.2 fL Immature Granulocyte % (Auto) 3 % Neutrophils (%) (Auto) 73 42-75 % Lymphocytes (%) (Auto) 14 12-44 % Monocytes (%) (Auto) 8 0-12 % Eosinophils (%) (Auto) 2 0-10 % Basophils (%) (Auto) 0 0-10 % Neutrophils # (Auto) 6.0 1.8-7.8 10^3/uL Lymphocytes # (Auto) 1.1 1.0-4.0 10^3/uL Monocytes # (Auto) 0.7 0.0-1.0 10^3/uL Eosinophils # (Auto) 0.1 0.0-0.3 10^3/uL Basophils # (Auto) 0.0 0.0-0.1 10^3/uL Immature Granulocyte # (Auto) 0.3 H 0.0-0.1 10^3/uL Neutrophils % (Manual) 68 % Lymphocytes % (Manual) 13 % Monocytes % (Manual) 5 % Eosinophils % (Manual) 2 % Band Neutrophils 9 % Atypical Lymphocytes 1 % Reactive Lymphocytes 1 % Macrocytosis SLIGHT Sodium Level 132 L 135-145 MMOL/L Potassium Level 4.5 3.6-5.0 MMOL/L Chloride Level 102 98-107 MMOL/L Carbon Dioxide Level 26 21-32 MMOL/L Anion Gap 4 L 5-14 MMOL/L Blood Urea Nitrogen 17 7-18 MG/DL Creatinine 0.65 0.60-1.30 MG/DL Estimat Glomerular Filtration Rate 103 BUN/Creatinine Ratio 26 Glucose Level 96 70-105 MG/DL Calcium Level 7.9 L 8.5-10.1 MG/DL Phosphorus Level 2.7 2.3-4.7 MG/DL Magnesium Level 1.8 1.6-2.4 MG/DL A/P-Cardiology Admission Diagnosis Acute abdomen Acute respiratory failure Coronary artery disease Permanent atrial fibrillation Assessment/Plan Atrial fibrillation: Heart rate is controlled. Continue present therapy. Will restart Xarelto Status post cardiac arrest: Has been stable. Continue to monitor Status post acute abdomen, gastric perforation, status post exploratory laparotomy done on December 21, 2022 Improving Managed by surgical team. Continue to monitor Coronary artery disease, history of stenting using 3.020 mm Promus stent to the right coronary artery done in March 2012. Patient was scheduled for [facility] on December 23, 2022 as outpatient. Will postpone at this time. COPD, using oxygen at night, had a complex hospitalization with Legionella pneumonia and CMV, respiratory failure, multiple cardiac arrest in October 2017. loculated pneumonia underwent right lung decortication on January 28, 2018 resulted in hydropneumothorax and marked emphysema and had prolonged chest tube placement. History of congestive heart failure, chronic left ventricular systolic dysfunction. Continue present therapy Heavy alcoholism, managed by primary care physician Abdominal aortic aneurysm, had a stent placed by Dr. Hogue done in June 2021. Hypertension: Blood pressure controlled, continue to monitor. Hyperlipidemia, continue to monitor lipids LOLA Healy DMITRY MD Jan 05, 2023 13:20
[2023-01-05] MEDS: LACTATED RINGERS 1,000 ML 1,000 ML IV SCH (16:08)
[2023-01-05] MEDS: SODIUM CHLORIDE IV SCH ×11 (16:35)
[2023-01-05] MEDS: [UNRECOGNIZED DRUG - OTHER] IV SCH ×11 (16:35)
[2023-01-05] MEDS: SODIUM ACETATE IV SCH ×11 (16:35)
[2023-01-05] MEDS: MELATONIN 3 MG TABLET PO SCH (20:36)
[2023-01-05] MEDS ORDERED: BREZTRI INH SCH (21:00)
[2023-01-06] MEDS: NOREPINEPHRINE 8 MG/250 ML 250 ML IV SCH (00:28)
[2023-01-06] MEDS: meTOprolol INJECTION 5 MG/5 ML VIAL IV PRN ×3 (01:34→19:49)
[2023-01-06] MEDS: ENOXAPARIN 80 MG/0.8 ML SYRINGE SC SCH ×2 (01:34→14:55)
[2023-01-06] MEDS: LACTATED RINGERS 1,000 ML 1,000 ML IV SCH (02:29)
[2023-01-06 02:54] VITALS: BP 110/82
[2023-01-06] MEDS: RT-Ipratropium/Albuterol NEB 3 ML VIAL INH SCH ×4 (02:54→22:23)
[2023-01-06] MEDS: dilTIAZem 30 MG TABLET PO SCH ×4 (04:42→22:20)
[2023-01-06 05:10] LABS: POTASSIUM 4.3 MMOL/L (3.6-5.0)
[2023-01-06 05:15] LABS: PHOSPHORUS 3.3 MG/DL (2.3-4.7)
[2023-01-06 05:16] LABS: CREATININE SERUM 0.68 MG/DL (0.60-1.30)
[2023-01-06] MEDS: POTASSIUM CL 10MEQ/50ML IVPB 50 ML IV SCH (05:18)
[2023-01-06] MEDS: POTASSIUM CHLORIDE 20 MEQ TABLET PO SCH (05:18)
[2023-01-06] MEDS: MAGNESIUM 1 GM/100 ML IVPB 100 ML IV SCH (05:38)
[2023-01-06 06:36] LABS: BASOPHILS % (AUTO) 0 % (0-10); EOSINOPHILS # (AUTO) 0.1 10^3/uL (0.0-0.3); EOSINOPHILS % (AUTO) 2 % (0-10); HEMATOCRIT 32 % (40-54); HEMOGLOBIN 10.8 g/dL (13.3-17.7); LYMPHOCYTES # (AUTO) 1.1 10^3/uL (1.0-4.0); LYMPHOCYTES % (AUTO) 18 % (12-44); MEAN CORPUSCULAR HEMOGLOBIN 34 pg (25-34); MEAN CORPUSCULAR HGB CONC 34 g/dL (32-36); MEAN CORPUSCULAR VOLUME 102 fL (80-99); MEAN PLATELET VOLUME 11.3 fL (9.0-12.2); MONOCYTES # (AUTO) 0.6 10^3/uL (0.0-1.0); MONOCYTES % (AUTO) 10 % (0-12); NEUTROPHILS % (AUTO) 67 % (42-75); PLATELET COUNT 192 10^3/uL (130-400)
[2023-01-06 07:00] LABS: ANISOCYTOSIS SLIGHT; BAND NEUTROPHILS 1 %; EOSINOPHILS % (MANUAL) 2 %; LYMPHOCYTES % (MANUAL) 21 %; MONOCYTES % (MANUAL) 9 %; NEUTROPHILS % (MANUAL) 67 %
[2023-01-06] MEDS: PANTOPRAZOLE INJECTION 40 MG VIAL IV SCH ×2 (08:29→19:49)
--- NOTE | 2023-01-06 08:34 | Progress Note - Surgery ---
NEMESIO HODGSON 01/06/23 0834: Subjective Date Seen by a Provider: Jan 06, 2023 Time Seen by a Provider: 07:00 Subjective/Events-last exam Pt is laying comfortably in bed with minimal pain to right side ribs. Pt is still passing flatus and tolerating clear liquids diet without nausea, vomiting. Patient has started PT and OT and is able to transfer from bed to chair. When patient stands up, O2 saturation drops below 90s and patient experiences SOA. When laying, patient breathes well with O2 sats above 90s. Denies fever, chest pain, SOA, constipation. Review of Systems General: No Chills, No Night Sweats HEENT: No Head Aches, No Visual Changes Pulmonary: No Dyspnea, No Cough Cardiovascular: No: Chest Pain, Palpitations Gastrointestinal: Abdominal Pain (minimal midline. Incision is c/d/i); No: Nausea, Vomiting Genitourinary: No Dysuria, No Frequency Musculoskeletal: No: neck pain, shoulder pain Neurological: No: Change in speech, Confusion Objective Exam Vital Signs Date Time Temp Pulse Resp B/P (MAP) Pulse Ox O2 Delivery O2 Flow Rate FiO2 01/06/23 07:46 35.8 01/06/23 06:30 105 21 127/78 (94) 99 Nasal Cannula 1.00 01/06/23 06:00 124 21 127/78 (94) 87 Nasal Cannula 1.00 01/06/23 05:30 111 19 127/78 (94) 97 NIV Bilevel 30.00 01/06/23 05:00 112 20 127/78 (94) 100 NIV Bilevel 30.00 01/06/23 04:30 107 18 122/87 (99) 100 NIV Bilevel 30.00 01/06/23 04:15 99 NIV Bilevel 30 01/06/23 04:00 36.5 01/06/23 04:00 105 19 107/73 (84) 100 NIV Bilevel 30.00 01/06/23 03:30 107 36 132/74 (93) 100 NIV Bilevel 30.00 01/06/23 03:00 98 20 125/92 (103) 100 NIV Bilevel 30.00 01/06/23 02:54 101 21 95 30.00 01/06/23 02:30 93 25 110/82 (91) 99 NIV Bilevel 30.00 01/06/23 02:00 85 19 113/81 (89) 98 NIV Bilevel 30.00 01/06/23 01:30 117 15 136/94 (108) 100 NIV Bilevel 30.00 01/06/23 01:00 115 21 115/74 (88) 98 NIV Bilevel 30.00 01/06/23 01:00 122 01/05/23 23:59 98 NIV Bilevel 30 01/05/23 23:48 35.8 01/05/23 23:30 115 22 135/73 (84) 100 NIV Bilevel 30.00 01/05/23 23:00 115 14 125/82 (95) 100 Nasal Cannula 1.00 01/05/23 22:54 80 21 97 30.00 01/05/23 22:30 103 21 131/67 (86) 100 Nasal Cannula 1.00 01/05/23 22:00 133 20 165/106 (126) 97 Nasal Cannula 1.00 01/05/23 21:30 111 15 134/86 (91) 96 Nasal Cannula 1.00 01/05/23 21:00 100 19 123/81 (101) 97 Nasal Cannula 1.00 01/05/23 20:30 36.1 109 20 138/79 (103) 98 Nasal Cannula 1.00 01/05/23 20:00 108 11 149/91 (99) 95 Nasal Cannula 1.00 01/05/23 20:00 93 Nasal Cannula 1.00 01/05/23 19:15 109 21 134/85 (114) 97 Nasal Cannula 1.00 01/05/23 19:00 115 21 139/88 (96) 98 Nasal Cannula 1.00 01/05/23 19:00 103 01/05/23 18:00 103 23 146/75 (98) 98 Nasal Cannula 1.00 01/05/23 17:00 98 18 149/90 (109) 94 Nasal Cannula 1.00 01/05/23 16:00 102 11 138/95 (109) 89 Nasal Cannula 1.00 01/05/23 16:00 85 NIV Bilevel 1.00 01/05/23 15:44 36.1 01/05/23 15:00 125 136/73 (94) 100 Nasal Cannula 1.00 01/05/23 14:41 97 Nasal Cannula 2.00 01/05/23 14:00 108 160/83 (108) 95 Nasal Cannula 1.00 01/05/23 13:00 114 107/72 (84) 95 Nasal Cannula 1.00 01/05/23 12:51 88 01/05/23 12:00 89 NIV Bilevel 1.00 01/05/23 12:00 105 103/76 (85) 98 Nasal Cannula 1.00 01/05/23 11:46 35.9 01/05/23 11:00 97 24 127/79 (95) 98 Nasal Cannula 1.00 01/05/23 10:00 90 24 118/85 (96) 96 Nasal Cannula 1.00 01/05/23 09:50 93 Nasal Cannula 1.00 01/05/23 09:00 130 21 123/85 (98) 93 Nasal Cannula 1.00 I & O 01/06/23 07:00 Intake Total 3510.5 ml Output Total 2700 ml Balance 810.5 ml Capillary Refill : Less Than 3 Seconds General Appearance: No Apparent Distress, Chronically ill HEENT: PERRL/EOMI, Pharynx Normal, Moist Mucous Membranes Neck: Full Range of Motion, Normal Inspection Respiratory: Chest Non Tender, Lungs Clear, No Accessory Muscle Use, No Respiratory Distress Cardiovascular: No JVD, Irregularly Irregular Peripheral Pulses: 2+ Dorsalis Pedis (R), 2+ Left Dors-Pedis (L), 2+ Radial Pulses (R), 2+ Radial Pulses (L) Gastrointestinal: soft, distended (minimal), tenderness (minimal midline before, wound looks ok, delbert ok), other Extremity: Non Tender, No Calf Tenderness Neurologic/Psychiatric: Alert, Oriented x3, Normal Mood/Affect Skin: Normal Color, Warm/Dry Lymphatic: No Adenopathy Results Lab Laboratory Tests 01/05/23 11:54: Glucometer 93 01/05/23 17:45: Glucometer 80 01/05/23 23:25: Glucometer 134H 01/06/23 04:40: White Blood Count 6.0, Red Blood Count 3.14L, Hemoglobin 10.8L, Hematocrit 32L, Mean Corpuscular Volume 102H, Mean Corpuscular Hemoglobin 34, Mean Corpuscular Hemoglobin Concent 34, Red Cell Distribution Width 14.6H, Platelet Count 192, Mean Platelet Volume 11.3, Immature Granulocyte % (Auto) 3, Neutrophils (%) (Auto) 67, Lymphocytes (%) (Auto) 18, Monocytes (%) (Auto) 10, Eosinophils (%) (Auto) 2, Basophils (%) (Auto) 0, Neutrophils # (Auto) 4.0, Lymphocytes # (Auto) 1.1, Monocytes # (Auto) 0.6, Eosinophils # (Auto) 0.1, Basophils # (Auto) 0.0, Immature Granulocyte # (Auto) 0.2H, Neutrophils % (Manual) 67, Lymphocytes % (Manual) 21, Monocytes % (Manual) 9, Eosinophils % (Manual) 2, Band Neutrophils 1, Anisocytosis SLIGHT, Macrocytosis SLIGHT, Sodium Level 135, Potassium Level 4.3, Chloride Level 104, Carbon Dioxide Level 29, Anion Gap 2L, Blood Urea Nitrogen 17, Creatinine 0.68, Estimat Glomerular Filtration Rate 102, BUN/Creatinine Ratio 25, Glucose Level 86, Calcium Level 8.0L, Phosphorus Level 3.3, Magnesium Level 2.0 Microbiology 12/26/22 Gram Stain - Final, Complete 12/26/22 Sputum Culture - Final, Complete Klebsiella pneumoniae Assessment/Plan Assessment/Plan Assessment/Plan S/P Ex lap with partial gastric resection S/P Respiratory Arrest Gastric Distention Ileus Afib Monitor blood pressure- stable abdomen is distended Advance diet to full liquids, continue TPN Incentive spirometer Lovenox Continue discussions with family about long term acute care registered nurse care Will still need colonoscopy due to thickening of the sigmoid, which he did have planned but due to condition will need to hold off at this time. BRYON DAVIS DO 01/07/23 0919: Subjective Subjective/Events-last exam Patient tolerating clears some. Wanting food. Breathing still an issue. Having bowel function. Objective Exam General Appearance: No Apparent Distress, Chronically ill HEENT: PERRL/EOMI, Normal ENT Inspection Neck: Normal Inspection Respiratory: Chest Non Tender, No Accessory Muscle Use, No Respiratory Distress Cardiovascular: Regular Rate, Rhythm, No JVD, Irregularly Irregular Gastrointestinal: soft, distended (minimal), tenderness (minimal midline before, wound looks ok, delbert ok) Extremity: Non Tender, No Calf Tenderness Neurologic/Psychiatric: Alert, Oriented x3, Normal Mood/Affect Skin: Normal Color, Warm/Dry Lymphatic: No Adenopathy Assessment/Plan Assessment/Plan Assessment/Plan S/P Ex lap with partial gastric resection S/P Respiratory Arrest Gastric Distention Ileus Afib Monitor blood pressure- stable abdomen is distended Advance diet to full liquids, continue TPN due to poor intake Incentive spirometer Lovenox Continue discussions with family about long term acute care registered nurse care Will still need colonoscopy due to thickening of the sigmoid, which he did have planned but due to condition will need to hold off at this time. Supervisory-Addendum Brief Verification & Attestation Participated in pt care: history, MDM, physical Personally performed: exam, history, MDM, supervision of care Care discussed with: Medical Student Procedures: n/a Results interpretation: Verified all documentation Verification and Attestation of Medical Student E/M Service A medical student performed and documented this service in my presence. I reviewed and verified all information documented by the medical student and made modifications to such information, when appropriate. I personally performed the physical exam and medical decision making. Bryon Davis, Jan 06, 2023,09:19 NEMESIO HODGSON Jan 06, 2023 08:34 BRYON DAVIS DO Jan 07, 2023 09:19
[2023-01-06] MEDS: fentaNYL INJECTION 100 MCG/2 ML VIAL IVP PRN ×5 (08:58→22:20)
--- NOTE | 2023-01-06 10:00 | Occ Therapy Progress Note ---
Therapy Progress Note Patient request therapy time between [id number]. SARAH CARTAGENA OT Jan 06, 2023 10:00
--- NOTE | 2023-01-06 10:50 | Tele-ICU Progress Note ---
Subjective Date Seen by a Provider: Jan 06, 2023 Time Seen by a Provider: 10:49 Subjective/Events-last exam (Tele-ICU Physician , Progress Note ) Service provided via interactive audio and video telecommunications E-CARE system to a patient admitted to ICU bed in [facility]. Patient is seen today due to persistent need of ICU care Available chart/ vitals / labs / Images reviewed Video assessment done using teleICU camera, rest of exam as per RN Discussed with RN Events overnight : Afebrile hemodynamically stable Respiratory - 50% I/O = pos Drips cardizem OFF Pressors- - OFF Hospital course: (12/21) 67yr old male admitted s/p Ex. Lap partial gastric resection(gastric perf). Intubated (12/22) Extubated. (12/26) pt hypoxic on bipap-Intubated, arrested after intubation w/ ROSC, CTH - WNL , CT abd- high-grade small bowel obstruction. 12/27- on levo 0.04 and vaso 0.03, Fio2 50 % , RASS -2 on propofol 30 fentanyl 50 , cardizem 5 12/28- fio2 40 % , on levo 0.04 and vaso 0.03, Fio2 50 % , RASS -2 on propofol 30 fentanyl 50 , cardizem 5 12/28- EXTUBATED - to BIPAP 12/29- NC , bipap night , OFF pressors 12/30- BIPAP til 4 am - NC 4 L , AAO, cardizem 5 , NG OFF suction --> Increased abd distention --> back on LIS 12/31- confused , BIPAP 30/09 50% 30 tv 600 MV 17 L , steroid x1 IV , started MERREM . low UO - woods replaced , DID NOT TOLERATED OFF BIPAP 01/01 - 6L o2 , TPN started A/P Acute resp failure , hypoxic ( extubated post op 12/22 --> re-intubated on 12/26--->12/28- EXTUBATED - to BIPAP - + secretions , on nebs /ICS - today on 1 L NC , biap at [facility] - IS : doing his best with rib Fr pain and confusion Card arrest 12/25 with ROSC 5 min ( secondary to resp failure? ) =recovered well Gastric perforation, had parital [id number] --CT 12/25 - high-grade small bowel obstruction. - NG in place -- clammped - ? remove - as per sx started MERREM 12/31- > 5 d - off 01/05 Possivle PNA with patchy airspace opacity on CT ch - sputum 12/26-Klebsiella - on zosyn till 12/30 --started MERREM 12/31 -- > 5 d - off 01/05 Chronic a fib with RVR ( s/p dig, metoprolol prn -cardizem gtt OFF - to PO -xarelro on hold - Lovenox full dose - cards follow Multiple right rib fractures. - post arrest 's CPR , no PTX - cont pain control , IS CAD -EF 40 % Pulm htn with PSAP in 50's - monitor for VO - neg IV balance COPD -using oxygen at night, - CT with Severe emphysematous change and bullous disease - + wheezing - increase nebs frequency - add LABA/ICS - try to avoid systemic steroids , one dose 12/30 Multiple Lung infection in past -Hx of pulmonary aspergillous 2018 S/p right lung decortication on January 28, 2018 resulted in hydropneumothorax and marked emphysema and had prolonged chest tube placement. ETON abuse - not recently as per report AAA< s/p with stent in place Nutrition - NPO with SBO - on TPN Urinary retntion /low UP 12/31 - woods replaced Electrolites replacement Accuchecks Shock - multifactorial RESOLVED - OFF PRESSORS Lines : R IJ 12/26 , art line - removed 12/29 , (Central Line Necessity Reviewed) Woods: 12/31 Urinary retntion /low UP 12/31- woods replaced OG: Nutrition: npo Analgesia: Anxiety/ delirium VTE Prophylaxis: blake 40 Stress Ulcer Prophylaxis: ppi Plans in collaboration with bedside consultants and IM MDs. Discussed with RN to reach out if any questions or concerns Case and care daily discussed on multidisciplinary rounds ( RN, PharmD, Chief Of Safety And Protection , Respiratory Therapy, pastoral worker ) 10 minutes of critical care time was devoted to this patient today, required to treat and/or prevent further deterioration of critical care condition ( as above ) . I am remotely monitoring this patient from another state. I am unable to do the bedside exam, and history/physical and pertinent information is taken from other notes in the computer and bedside staff. Sepsis Event Evaluation Height, Weight, BMI Height: 6'4.00" Weight: 154lbs. 2.0oz. 69.793948pb; 22.31 BMI Method:Stated Exam Exam Patient acknowledged, consented, and participated in this virtual visit which was conducted using real time audio/video Vital Signs Date Time Temp Pulse Resp B/P (MAP) Pulse Ox O2 Delivery O2 Flow Rate FiO2 01/06/23 09:17 98 Nasal Cannula 2.00 01/06/23 07:46 35.8 01/06/23 06:30 105 21 127/78 (94) 99 Nasal Cannula 1.00 01/06/23 06:00 124 21 127/78 (94) 87 Nasal Cannula 1.00 01/06/23 05:30 111 19 127/78 (94) 97 NIV Bilevel 30.00 01/06/23 05:00 112 20 127/78 (94) 100 NIV Bilevel 30.00 01/06/23 04:30 107 18 122/87 (99) 100 NIV Bilevel 30.00 01/06/23 04:15 99 NIV Bilevel 30 01/06/23 04:00 36.5 01/06/23 04:00 105 19 107/73 (84) 100 NIV Bilevel 30.00 01/06/23 03:30 107 36 132/74 (93) 100 NIV Bilevel 30.00 01/06/23 03:00 98 20 125/92 (103) 100 NIV Bilevel 30.00 01/06/23 02:54 101 21 95 30.00 01/06/23 02:30 93 25 110/82 (91) 99 NIV Bilevel 30.00 01/06/23 02:00 85 19 113/81 (89) 98 NIV Bilevel 30.00 01/06/23 01:30 117 15 136/94 (108) 100 NIV Bilevel 30.00 01/06/23 01:00 115 21 115/74 (88) 98 NIV Bilevel 30.00 01/06/23 01:00 122 01/05/23 23:59 98 NIV Bilevel 30 01/05/23 23:48 35.8 01/05/23 23:30 115 22 135/73 (84) 100 NIV Bilevel 30.00 01/05/23 23:00 115 14 125/82 (95) 100 Nasal Cannula 1.00 01/05/23 22:54 80 21 97 30.00 01/05/23 22:30 103 21 131/67 (86) 100 Nasal Cannula 1.00 01/05/23 22:00 133 20 165/106 (126) 97 Nasal Cannula 1.00 01/05/23 21:30 111 15 134/86 (91) 96 Nasal Cannula 1.00 01/05/23 21:00 100 19 123/81 (101) 97 Nasal Cannula 1.00 01/05/23 20:30 36.1 109 20 138/79 (103) 98 Nasal Cannula 1.00 01/05/23 20:00 108 11 149/91 (99) 95 Nasal Cannula 1.00 01/05/23 20:00 93 Nasal Cannula 1.00 01/05/23 19:15 109 21 134/85 (114) 97 Nasal Cannula 1.00 01/05/23 19:00 115 21 139/88 (96) 98 Nasal Cannula 1.00 01/05/23 19:00 103 01/05/23 18:00 103 23 146/75 (98) 98 Nasal Cannula 1.00 01/05/23 17:00 98 18 149/90 (109) 94 Nasal Cannula 1.00 01/05/23 16:00 102 11 138/95 (109) 89 Nasal Cannula 1.00 01/05/23 16:00 85 NIV Bilevel 1.00 01/05/23 15:44 36.1 01/05/23 15:00 125 136/73 (94) 100 Nasal Cannula 1.00 01/05/23 14:41 97 Nasal Cannula 2.00 01/05/23 14:00 108 160/83 (108) 95 Nasal Cannula 1.00 01/05/23 13:00 114 107/72 (84) 95 Nasal Cannula 1.00 01/05/23 12:51 88 01/05/23 12:00 89 NIV Bilevel 1.00 01/05/23 12:00 105 103/76 (85) 98 Nasal Cannula 1.00 01/05/23 11:46 35.9 01/05/23 11:00 97 24 127/79 (95) 98 Nasal Cannula 1.00 I & O 01/06/23 06:59 Intake Total 3510.5 ml Output Total 2700 ml Balance 810.5 ml Height & Weight Height: 6'4.00" Weight: 154lbs. 2.0oz. 69.695223lo; 22.31 BMI Method:Stated General Appearance: No Apparent Distress, Chronically ill HEENT: PERRL/EOMI, Pharynx Normal, Moist Mucous Membranes Neck: Full Range of Motion, Normal Inspection Respiratory: Chest Non Tender, Lungs Clear, No Accessory Muscle Use, No Respiratory Distress Cardiovascular: No JVD, Irregularly Irregular Capillary Refill: Less Than 3 Seconds Peripheral Pulses: 2+ Dorsalis Pedis (R), 2+ Left Dors-Pedis (L), 2+ Radial Pulses (R), 2+ Radial Pulses (L) Gastrointestinal: soft, distended (minimal), tenderness (minimal midline before, wound looks ok, delbert ok), other Extremity: Non Tender, No Calf Tenderness Neurologic/Psychiatric: Alert, Oriented x3, Normal Mood/Affect Skin: Normal Color, Warm/Dry Lymphatic: No Adenopathy Results Lab Laboratory Tests 01/05/23 04:00 01/06/23 04:40 Assessment/Plan Assessment/Plan 1 ALEXIS MARSH MD Jan 06, 2023 10:50
--- NOTE | 2023-01-06 11:06 | Progress Note - Hospitalist ---
Subjective HPI/CC On Admission Date Seen by Provider: Jan 06, 2023 Time Seen by Provider: 11:00 67 yo male admitted after coming to ER with abdominal pain and having CT that showed large free air in abdomen. He underwent exploratory laparoscopy and found to have gastric perforation and partial gastrectomy was done last night. This morning he is still intubated, is alert but unable to give history due to ventilator status. Subjective/Events-last exam Patient doing a lot better Will moved to cardiac stepdown Tolerating clear liquids All meds will change management lead to p.o. Lovenox still remains therapeutic dose Review of Systems General: Fatigue, Malaise Objective Exam Vital Signs Vital Signs Date Time Temp Pulse Resp B/P (MAP) Pulse Ox O2 Delivery O2 Flow Rate FiO2 01/06/23 15:00 117 22 138/119 (125) 93 Nasal Cannula 1.00 01/06/23 11:38 36.8 01/06/23 04:15 30 Capillary Refill : Less Than 3 Seconds General Appearance: No Apparent Distress, WD/WN, Chronically ill Respiratory: Lungs Clear, Normal Breath Sounds Cardiovascular: Regular Rate, Rhythm Neurologic/Psychiatric: Alert, Oriented x3, No Motor/Sensory Deficits, Normal Mood/Affect Results/Procedures Lab Laboratory Tests 01/06/23 04:40 Patient resulted labs reviewed. Assessment/Plan Assessment and Plan Assess & Plan/Chief Complaint Assessment: Acute hypoxic respiratory failure GI bleed Exploratory laparotomy Postop ileus Ventilator associated pneumonia Alcohol withdrawal Atrial fibrillation with RVR Plan: Moved to cardiac stepdown unit Supportive care PT and OT [place] Critical Care Critically Ill Patient STAR KUMARI DO Jan 06, 2023 11:06
--- NOTE | 2023-01-06 11:22 | Diagnostic Imaging Report ---
Indication: PICC line placement. COMPARISON: 01/03/2023 FINDINGS: Single frontal radiograph view the chest was obtained and demonstrates interval removal of gastric tube. New left upper extremity PICC line is seen. Tip appears to terminate in the low SVC. Right internal jugular central venous catheter is also seen with tip in the upper SVC. Cardiac silhouette and pulmonary vasculature are within normal limits. Lungs continue to show diffuse coarse interstitial opacities. There may be trace bibasilar effusions. No pneumothorax is seen. IMPRESSION: 1. New left upper extremity PICC line with tip in the low SVC. 2. Redemonstration diffuse coarse interstitial opacities. This could be on the basis of chronic interstitial lung disease, although superimposed interstitial pneumonia or edema would be difficult to exclude. 3. Probable trace bibasilar effusions. Dictated by: Dictated on workstation # [id number]
--- NOTE | 2023-01-06 11:44 | Occ Therapy Progress Note ---
Therapy Progress Note OT returned for therapy session, patient getting PICCLINE OT will attempt later in afternoon for final attempt of the day SARAH CARTAGENA OT Jan 06, 2023 11:44
--- NOTE | 2023-01-06 13:39 | Occupational Ther Daily Note ---
OT Current Status-Daily Note Subjective Agreeable to participate w/ therapy, patient demonstrates time lapse with communication to OT Mental Status/Objective Attachments: Oxygen NEW PICC, DC woods, NG tube ADL-Treatment Supine in bed bridge to don elastic waist shorts and socks. Therapy Code Descriptions/Definitions Functional [place] Measure: 0=Not Assessed/NA 4=Minimal Assistance 1=Total Assistance 5=Supervision or Setup 2=Maximal Assistance 6=Modified [place] 3=Moderate Assistance 7=Complete IndependenceSCALE: Activities may be completed with or without assistive devices. 5-Bketqvbspx-daufpyq completes the activity by him/herself with no assistance from a helper. 5-Set-up or Clean-up Assistance-helper sets up or cleans up; patient completes activity. [place] assists only prior to or following the activity. 4-Supervision or Touching Assistance-helper provides verbal cues and/or touching/steadying and/or contact guard assistance as patient completes activity. Assistance may be provided throughout the activity or intermittently. 3-Partial/Moderate Assistance-helper does LESS THAN HALF the effort. [place] lifts, holds or supports trunk or limbs, but provides less than half the effort. 2-Substantial/Maximal Assistance-helper does MORE THAN HALF the effort. [place] lifts or holds trunk or limbs and provides more than half the effort. 7-Webmfsorz-vgsjet does ALL the effort. Patient does none of the effort to complete the activity. Or, the assistance of 2 or more helpers is required for the patient to complete the activity. If activity was not attempted, code reason: 7-Patient Refused. 9-Not Applicable-not attempted and the patient did not perform the activity before the current illness, exacerbation or injury. 10-Not Attempted due to Environmental Limitations-(lack of equipment, weather restraints, etc.). 88-Not Attempted due to Medical Conditions or Safety Concerns. 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 2=Patient will verbalize/demonstrate understanding of assistive devices/modifications for ADL. 3=Patient will improve strength/tolerance for activity to enable patient to perform ADL's. OT Education/Plan Problem List/Assessment Assessment: Decreased Activ Tolerance, Impaired Funct Balance, Impaired Self- Care Skills Discharge Recommendations Plan/Recommendations: Continue POC Treatment Plan/Plan of Care Treatment,Training & Education: Yes Patient would benefit from OT for education, treatment and training to promote independence in ADL's, mobility, safety and/or upper extremity function for ADL's. Plan of Care: ADL Retraining, Functional Mobility, Group Exercise/Act as Ind, UE Funct Exercise/Act Treatment Duration: Jan 08, 2023 Frequency: 3 times per week (3-5 times per week) Estimated Hrs Per Day: .25 hour per day Agreement: Yes Rehab Potential: Fair remains in recliner all needs met, call light in lap Time Start Time: 13:00 Stop Time: 13:13 DATE: Jan 06, 2023 Total Time Billed (hr/min): 13 Billed Treatment Time ADL 13 min SARAH CARTAGENA OT Jan 06, 2023 13:39
--- NOTE | 2023-01-06 15:21 | Physical Therapy Daily Note ---
PT Daily Note-Current Subjective Patient lying supine in bed upon PT arrival, agreeable to treatment. Patient rates pain at 0/10 currently. Pain Section J - Health Conditions 1. Rarely or not at all 2. Occasionally 3. Frequently 4. Almost constantly 8. Unable to answer Pain Effect on Sleep: 1 Pain Interference with Therapy: 1 Pain Interference w/Day-to-Day: 1 Transfers SCALE: Activities may be completed with or without assistive devices. 9-Enmefficke-mnfpkzg completes the activity by him/herself with no assistance from a helper. 5-Set-up or Clean-up Assistance-helper sets up or cleans up; patient completes activity. [place] assists only prior to or following the activity. 4-Supervision or Touching Assistance-helper provides verbal cues and/or touching/steadying and/or contact guard assistance as patient completes activity. Assistance may be provided throughout the activity or intermittently. 3-Partial/Moderate Assistance-helper does LESS THAN HALF the effort. [place] lif ts, holds or supports trunk or limbs, but provides less than half the effort. 2-Substantial/Maximal Assistance-helper does MORE THAN HALF the effort. [place] lifts or holds trunk or limbs and provides more than half the effort. 7-Xzxtfglel-fpbcfy does ALL the effort. Patient does none of the effort to complete the activity. Or, the assistance of 2 or more helpers is required for the patient to complete the activity. If activity was not attempted, code reason: 7-Patient Refused. 9-Not Applicable-not attempted and the patient did not perform the activity before the current illness, exacerbation or injury. 10-Not Attempted due to Environmental Limitations-(lack of equipment, weather restraints, etc.). 88-Not Attempted due to Medical Conditions or Safety Concerns. Roll Left & Right (QC): 3 Sit to Lying (QC): 3 Lying to Sitting/Side of Bed(Q: 3 Sit to Stand (QC): 3 Chair/Lka-vu-Ubmbd Xfer(QC): 3 Gait Training Does the Patient Walk?: No and Walking Goal IS indicated Assessment Current Status: Poor Progress Patient performs all bed mobility and transfers with SBA/CGA. Patient ambulates 3 feet to the chair with FWW, with mod A and verbal cues for safety, progression, posture. Patient in chair post treatment with all needs met, nursing notified, call light in hand and in the room. PT Snf Goals Service Shop Foreman Goals PT Service Shop Foreman Goals Time Frame: Jan 30, 2023 Roll Left & Right (QC): 6 Sit to Lying (QC): 6 Lying-Sitting on Side/Bed(QC): 6 Sit to Stand (QC): 6 Chair/Trr-yp-Pcpgj Xfer(QC): 6 Toilet Transfer (QC): 6 Walk 10 feet (QC): 6 Walk 50ft with 2 Turns (QC): 6 Walk 150 ft (QC): 6 PT Plan Treatment/Plan Treatment Plan: Continue Plan of Care Treatment Plan: Bed Mobility, Education, Functional Activity Renée, Functional Strength, Gait, Safety, Therapeutic Exercise, Transfers Treatment Duration: Jan 30, 2023 Frequency: 5 times per week Estimated Hrs Per Day: .25 hour per day Patient and/or Family Agrees t: Yes Safety Risks/Education Patient Education: Gait Training, Transfer Techniques Teaching Recipient: Patient Teaching Methods: Demonstration, Discussion Response to Teaching: Reinforcement Needed Time Time In: 1312 Time Out: 1332 DATE: Jan 06, 2023 Total Billed Treatment Time: 20 Total Billed Treatment Visit, ED GARCIA PT Jan 06, 2023 15:21
--- NOTE | 2023-01-06 16:11 | Cardiology Progress Note ---
Subjective Date Seen by Provider: Jan 06, 2023 Time Seen by Provider: 16:08 Subjective/Events-last exam No significant changes. In atrial fibrillation with controlled rate. Admits that he is short of breath on exertion but this is his usual condition Exam Vital Signs Vital Signs Date Time Temp Pulse Resp B/P (MAP) Pulse Ox O2 Delivery O2 Flow Rate FiO2 01/06/23 15:00 117 22 138/119 (125) 93 Nasal Cannula 1.00 01/06/23 11:38 36.8 01/06/23 04:15 30 Physical Exam Alert oriented, no acute distress. Neck supple, no JVD. Lungs decreased breath sounds bilaterally. Heart: S1-S2, regular rhythm. Abdomen soft, mildly distended, minimal tenderness. Extremities no edema Labs Laboratory Tests Test 01/05/23 17:45 01/05/23 23:25 01/06/23 04:40 Range/Units Glucometer 80 134 H 70-110 MG/DL White Blood Count 6.0 4.3-11.0 10^3/uL Red Blood Count 3.14 L 4.30-5.52 10^6/uL Hemoglobin 10.8 L 13.3-17.7 g/dL Hematocrit 32 L 40-54 % Mean Corpuscular Volume 102 H 80-99 fL Mean Corpuscular Hemoglobin 34 25-34 pg Mean Corpuscular Hemoglobin Concent 34 32-36 g/dL Red Cell Distribution Width 14.6 H 10.0-14.5 % Platelet Count 192 130-400 10^3/uL Mean Platelet Volume 11.3 9.0-12.2 fL Immature Granulocyte % (Auto) 3 % Neutrophils (%) (Auto) 67 42-75 % Lymphocytes (%) (Auto) 18 12-44 % Monocytes (%) (Auto) 10 0-12 % Eosinophils (%) (Auto) 2 0-10 % Basophils (%) (Auto) 0 0-10 % Neutrophils # (Auto) 4.0 1.8-7.8 10^3/uL Lymphocytes # (Auto) 1.1 1.0-4.0 10^3/uL Monocytes # (Auto) 0.6 0.0-1.0 10^3/uL Eosinophils # (Auto) 0.1 0.0-0.3 10^3/uL Basophils # (Auto) 0.0 0.0-0.1 10^3/uL Immature Granulocyte # (Auto) 0.2 H 0.0-0.1 10^3/uL Neutrophils % (Manual) 67 % Lymphocytes % (Manual) 21 % Monocytes % (Manual) 9 % Eosinophils % (Manual) 2 % Band Neutrophils 1 % Anisocytosis SLIGHT Macrocytosis SLIGHT Sodium Level 135 135-145 MMOL/L Potassium Level 4.3 3.6-5.0 MMOL/L Chloride Level 104 98-107 MMOL/L Carbon Dioxide Level 29 21-32 MMOL/L Anion Gap 2 L 5-14 MMOL/L Blood Urea Nitrogen 17 7-18 MG/DL Creatinine 0.68 0.60-1.30 MG/DL Estimat Glomerular Filtration Rate 102 BUN/Creatinine Ratio 25 Glucose Level 86 70-105 MG/DL Calcium Level 8.0 L 8.5-10.1 MG/DL Phosphorus Level 3.3 2.3-4.7 MG/DL Magnesium Level 2.0 1.6-2.4 MG/DL A/P-Cardiology Admission Diagnosis Acute abdomen Acute respiratory failure Coronary artery disease Permanent atrial fibrillation Assessment/Plan Atrial fibrillation: Heart rate is controlled. Continue present therapy. Status post cardiac arrest: Has been stable. Continue to monitor Status post acute abdomen, gastric perforation, status post exploratory laparotomy done on December 21, 2022 Improving Managed by surgical team. Continue to monitor Coronary artery disease, history of stenting Patient was scheduled for [facility] on December 23, 2022 as outpatient. Will postpone at this time. COPD, using oxygen at night, had a complex hospitalization with Legionella pneumonia and CMV, respiratory failure, multiple cardiac arrest in October 2017. loculated pneumonia underwent right lung decortication on January 28, 2018 resulted in hydropneumothorax and marked emphysema and had prolonged chest tube placement. History of congestive heart failure, chronic left ventricular systolic dysfunction. Continue present therapy Heavy alcoholism, managed by primary care physician Abdominal aortic aneurysm, had a stent placed by Dr. Hogue done in June 2021. Hypertension: Blood pressure controlled, continue to monitor. Hyperlipidemia, continue to monitor lipids LOLA Healy DMITRY MD Jan 06, 2023 16:11
[2023-01-06] MEDS: [UNRECOGNIZED DRUG - OTHER] IV SCH ×11 (17:12)
[2023-01-06] MEDS: SODIUM ACETATE IV SCH ×11 (17:12)
[2023-01-06] MEDS: SODIUM CHLORIDE IV SCH ×11 (17:12)
[2023-01-06] MEDS: MELATONIN 3 MG TABLET PO SCH (19:49)
[2023-01-07] MEDS: ENOXAPARIN 80 MG/0.8 ML SYRINGE SC SCH ×2 (02:24→14:03)
[2023-01-07] MEDS: fentaNYL INJECTION 100 MCG/2 ML VIAL IVP PRN ×4 (02:25→20:57)
[2023-01-07] MEDS: meTOprolol INJECTION 5 MG/5 ML VIAL IV PRN (02:25)
[2023-01-07] MEDS: RT-Ipratropium/Albuterol NEB 3 ML VIAL INH SCH ×4 (02:43→22:38)
[2023-01-07] MEDS: dilTIAZem 30 MG TABLET PO SCH ×2 (04:17→10:23)
[2023-01-07 04:39] LABS: BASOPHILS % (AUTO) 0 % (0-10); EOSINOPHILS # (AUTO) 0.1 10^3/uL (0.0-0.3); EOSINOPHILS % (AUTO) 1 % (0-10); HEMATOCRIT 32 % (40-54); HEMOGLOBIN 10.7 g/dL (13.3-17.7); LYMPHOCYTES # (AUTO) 1.3 10^3/uL (1.0-4.0); LYMPHOCYTES % (AUTO) 19 % (12-44); MEAN CORPUSCULAR HEMOGLOBIN 35 pg (25-34); MEAN CORPUSCULAR HGB CONC 34 g/dL (32-36); MEAN CORPUSCULAR VOLUME 103 fL (80-99); MONOCYTES # (AUTO) 0.8 10^3/uL (0.0-1.0); MONOCYTES % (AUTO) 11 % (0-12); NEUTROPHILS # (AUTO) 4.7 10^3/uL (1.8-7.8); NEUTROPHILS % (AUTO) 67 % (42-75); PLATELET COUNT 189 10^3/uL (130-400); WHITE BLOOD COUNT 7.1 10^3/uL (4.3-11.0)
[2023-01-07 04:59] LABS: ALBUMIN 2.5 GM/DL (3.2-4.5); BILIRUBIN,TOTAL 0.7 MG/DL (0.1-1.0); CALCIUM 8.3 MG/DL (8.5-10.1); CREATININE SERUM 0.68 MG/DL (0.60-1.30); POTASSIUM 4.1 MMOL/L (3.6-5.0); TOTAL PROTEIN 5.9 GM/DL (6.4-8.2)
--- NOTE | 2023-01-07 05:18 | Progress Note - Hospitalist ---
Subjective HPI/CC On Admission Date Seen by Provider: Jan 07, 2023 Time Seen by Provider: 10:00 67 yo male admitted after coming to ER with abdominal pain and having CT that showed large free air in abdomen. He underwent exploratory laparoscopy and found to have gastric perforation and partial gastrectomy was done last night. This morning he is still intubated, is alert but unable to give history due to ventilator status. Subjective/Events-last exam Patient doing well Remains on BIPAP HR 137 so that may be the source Awaiting Cardiology to see if ok with Lopressor 5mg IV [id number] Patient resting currently and asymptomatic Objective Exam Vital Signs Vital Signs Date Time Temp Pulse Resp B/P (MAP) Pulse Ox O2 Delivery O2 Flow Rate FiO2 01/07/23 11:10 115 25 95 30.00 01/07/23 08:00 NIV Bilevel 30 01/07/23 07:36 36.2 138/72 (94) Capillary Refill : Less Than 3 Seconds General Appearance: No Apparent Distress, WD/WN, Chronically ill Respiratory: Lungs Clear, Normal Breath Sounds Cardiovascular: Irregularly Irregular, Tachycardia Results/Procedures Lab Laboratory Tests 01/07/23 04:20 Patient resulted labs reviewed. Assessment/Plan Assessment and Plan Assess & Plan/Chief Complaint Assessment: Acute hypoxic respiratory failure Currently requiring BIPAP GI bleed Exploratory laparotomy Postop ileus Ventilator associated pneumonia Alcohol withdrawal Atrial fibrillation with RVR Plan: Moved to cardiac stepdown unit Supportive care PT and OT [facility] BiPAP Critical Care Critically Ill Patient QUOCSTAR SUGGS Jan 07, 2023 05:18
[2023-01-07] MEDS: POTASSIUM CL 10MEQ/50ML IVPB 50 ML IV SCH (05:30)
[2023-01-07] MEDS: POTASSIUM CHLORIDE 20 MEQ TABLET PO SCH (05:30)
[2023-01-07] MEDS: MAGNESIUM 1 GM/100 ML IVPB 100 ML IV SCH ×3 (05:37→07:32)
--- NOTE | 2023-01-07 08:01 | Progress Note - Surgery ---
NEMESIO HODGSON 01/07/23 0801: Subjective Date Seen by a Provider: Jan 07, 2023 Time Seen by a Provider: 07:15 Subjective/Events-last exam Pt is laying with bipap on. Per RN, pt was desaturating on 1L high flow NC last night and has been kept on bipap since. Abdomen is distended more than yesterda y. Tolerating full liquids w/o nausea or vomiting. Still passing gas. Review of Systems General: No Chills, No Night Sweats HEENT: No Head Aches, No Visual Changes Pulmonary: Dyspnea, Cough Cardiovascular: No: Chest Pain, Palpitations Gastrointestinal: No: Nausea, Vomiting Genitourinary: No Dysuria, No Hematuria Musculoskeletal: No: neck pain, shoulder pain Neurological: No: Numbness, Confusion Objective Exam Vital Signs Date Time Temp Pulse Resp B/P (MAP) Pulse Ox O2 Delivery O2 Flow Rate FiO2 01/07/23 07:36 36.2 129 19 138/72 (94) 94 NIV Bilevel 19.00 30.00 01/07/23 07:00 124 01/07/23 06:59 112 20 97 30.00 01/07/23 04:53 115 18 88 30.00 01/07/23 04:16 36.4 125 18 116/71 (86) 96 NIV Bilevel 30.00 01/07/23 02:43 104 19 96 30.00 01/07/23 02:25 123 24 137/87 (104) 91 NIV Bilevel 30.00 01/07/23 00:04 36.3 01/07/23 00:00 111 17 123/95 (104) 96 Nasal Cannula 1.00 01/07/23 00:00 111 01/06/23 22:23 118 29 94 30.00 01/06/23 22:21 121 20 144/80 (101) 92 High Flow N/C 1.00 01/06/23 19:55 High Flow N/C 1.00 01/06/23 19:47 36.5 123 155/91 (112) 95 High Flow N/C 1.00 01/06/23 19:43 37.0 115 19 117/91 (100) 94 High Flow N/C 1.00 01/06/23 19:15 112 01/06/23 15:00 117 22 138/119 (125) 93 Nasal Cannula 1.00 01/06/23 14:56 96 Nasal Cannula 1.00 01/06/23 14:00 112 28 120/91 (101) 97 Nasal Cannula 1.00 01/06/23 13:00 127 01/06/23 13:00 130 14 137/97 (110) 96 Nasal Cannula 1.00 01/06/23 12:00 120 25 137/88 (104) 97 Nasal Cannula 1.00 01/06/23 12:00 99 Nasal Cannula 1.00 01/06/23 11:38 36.8 01/06/23 11:00 111 22 123/94 (104) 98 Nasal Cannula 1.00 01/06/23 10:00 147 30 110/84 (93) 99 Nasal Cannula 1.00 01/06/23 09:17 98 Nasal Cannula 2.00 01/06/23 09:00 112 20 114/94 (101) 92 Nasal Cannula 1.00 01/06/23 08:00 97 Nasal Cannula 1.00 01/06/23 08:00 111 23 132/83 (99) 100 Nasal Cannula 1.00 I & O 01/07/23 07:00 Intake Total 1100 ml Output Total 2050 ml Balance -950 ml Capillary Refill : Less Than 3 Seconds General Appearance: No Apparent Distress, WD/WN, Chronically ill HEENT: PERRL/EOMI, Pharynx Normal, Moist Mucous Membranes Neck: Non Tender, Supple Respiratory: Lungs Clear, Normal Breath Sounds, No Respiratory Distress (on bipap) Cardiovascular: No Edema, Irregularly Irregular Peripheral Pulses: 2+ Dorsalis Pedis (R), 2+ Left Dors-Pedis (L), 2+ Radial Pulses (R), 2+ Radial Pulses (L) Gastrointestinal: soft, distended, tenderness (minimal midline, incision c/d/i), other Extremity: Non Tender, No Calf Tenderness, No Pedal Edema Neurologic/Psychiatric: Alert, Oriented x3, No Motor/Sensory Deficits, Normal Mood/Affect Skin: Normal Color, Warm/Dry Lymphatic: No Adenopathy Results Lab Laboratory Tests 01/06/23 11:15: Glucometer 105 01/07/23 04:20: White Blood Count 7.1, Red Blood Count 3.09L, Hemoglobin 10.7L, Hematocrit 32L, Mean Corpuscular Volume 103H, Mean Corpuscular Hemoglobin 35H, Mean Corpuscular Hemoglobin Concent 34, Red Cell Distribution Width 14.6H, Platelet Count 189, Mean Platelet Volume 11.0, Immature Granulocyte % (Auto) 2, Neutrophils (%) (Auto) 67, Lymphocytes (%) (Auto) 19, Monocytes (%) (Auto) 11, Eosinophils (%) (Auto) 1, Basophils (%) (Auto) 0, Neutrophils # (Auto) 4.7, Lymphocytes # (Auto) 1.3, Monocytes # (Auto) 0.8, Eosinophils # (Auto) 0.1, Basophils # (Auto) 0.0, Immature Granulocyte # (Auto) 0.1, Sodium Level 138, Potassium Level 4.1, Chloride Level 106, Carbon Dioxide Level 27, Anion Gap 5, Blood Urea Nitrogen 18, Creatinine 0.68, Estimat Glomerular Filtration Rate 102, BUN/Creatinine Ratio 26, Glucose Level 98, Calcium Level 8.3L, Corrected Calcium 9.5, Magnesium Level 1.8, Total Bilirubin 0.7, Aspartate Amino Transf (AST/SGOT) 41H, Alanine Aminotransferase (ALT/SGPT) 34, Alkaline Phosphatase 118, Total Protein 5.9L, Albumin 2.5L Microbiology 12/26/22 Gram Stain - Final, Complete 12/26/22 Sputum Culture - Final, Complete Klebsiella pneumoniae Assessment/Plan Assessment/Plan Assessment/Plan S/P Ex lap with partial gastric resection S/P Respiratory Arrest Gastric Distention Ileus Afib Monitor blood pressure- stable abdomen is distended Full liquids, continue TPN Incentive spirometer Lovenox Continue discussions with family about bed bug exterminator care Will still need colonoscopy due to thickening of the sigmoid, which he did have planned but due to condition will need to hold off at this time. BRYON DAVIS DO 01/07/23 0927: Subjective Subjective/Events-last exam Was on bipap over night. Taken off this morning. Oxygen saturation decreasing and drops when talking. Tolerating some diet, but not taking much. Still pass ing flatus. Denies n/v fever sweats chills or chest pain. Objective Exam General Appearance: No Apparent Distress, Chronically ill HEENT: PERRL/EOMI, Normal ENT Inspection Neck: Non Tender, Supple Respiratory: Chest Non Tender, Other (slightly labored breating.) Cardiovascular: No JVD, Irregularly Irregular Gastrointestinal: soft, distended (about same as yesterday), tenderness (minimal midline, incision c/d/i) Extremity: Non Tender, No Calf Tenderness Neurologic/Psychiatric: Alert, Oriented x3 Skin: Normal Color, Warm/Dry Lymphatic: No Adenopathy Assessment/Plan Assessment/Plan Assessment/Plan S/P Ex lap with partial gastric resection S/P Respiratory Arrest Gastric Distention Ileus Afib Breathing still an issue, consult pulmonary. Bipap as needed at this time. Monitor blood pressure- stable abdomen is distended Full liquids, continue TPN not taking much in. Incentive spirometer Lovenox Continue discussions with family about bed bug exterminator care, he is more acceptable of discussing this today, no other family present at this time. Will still need colonoscopy due to thickening of the sigmoid, which he did have planned but due to condition will need to hold off at this time. Supervisory-Addendum Brief Verification & Attestation Participated in pt care: history, MDM, physical Personally performed: exam, history, MDM, supervision of care Care discussed with: Medical Student Procedures: n/a Results interpretation: Verified all documentation Verification and Attestation of Medical Student E/M Service A medical student performed and documented this service in my presence. I reviewed and verified all information documented by the medical student and made modifications to such information, when appropriate. I personally performed the physical exam and medical decision making. Bryon Davis, Jan 07, 2023,09:33 NEMESIO HODGSON Jan 07, 2023 08:01 BRYON DAVIS DO Jan 07, 2023 09:27
[2023-01-07] MEDS: PANTOPRAZOLE INJECTION 40 MG VIAL IV SCH ×2 (08:27→21:08)
--- NOTE | 2023-01-07 10:15 | Physical Therapy Progress Note ---
Therapy Progress Note Attempted PT. Pt was on BiPaP. He asked to wait for therapy as he was having pain. Pt taken off of BiPap by nursing, O2 levels droppe 96% to 84%. Pt placed back on BiPap. Holding therapy session this date due to unstable Ox levels. LIZET KOENIG PT Jan 07, 2023 10:15
[2023-01-07] MEDS: meTOprolol INJECTION 5 MG/5 ML VIAL IV SCH ×3 (10:21→21:09)
[2023-01-07] MEDS ORDERED: FUROSEMIDE INJECTION 40 MG/4 ML VIAL IVP NR (11:45)
[2023-01-07] MEDS ORDERED: ALBUMIN 25% 25 GM/100 ML 100 ML IV NR (11:45)
--- NOTE | 2023-01-07 11:53 | Pulmonary Progress Note ---
Subjective Date Seen by a Provider: Jan 07, 2023 Time Seen by a Provider: 11:50 Subjective/Events-last exam (Tele-ICU / PULMONARY Physician , Progress Note ) follow as pulmonary as per request of PCP =- patient transferred out of ICU, hypoxic was on BIPAP last night , and in AM when trying to take off BIPAP noted to be hypoxic Service provided via interactive audio and video telecommunications E-CARE system to a patient admitted to ICU bed in [facility]. Afebrile hemodynamically stable Respiratory - 30% biapap I/O = pos Hospital course: (12/21) 67yr old male admitted s/p Ex. Lap partial gastric resection(gastric perf). Intubated (12/22) Extubated. (12/26) pt hypoxic on bipap-Intubated, arrested after intubation w/ ROSC, CTH - WNL , CT abd- high-grade small bowel obstruction. 12/27- on levo 0.04 and vaso 0.03, Fio2 50 % , RASS -2 on propofol 30 fentanyl 50 , cardizem 5 12/28- fio2 40 % , on levo 0.04 and vaso 0.03, Fio2 50 % , RASS -2 on propofol 30 fentanyl 50 , cardizem 5 12/28- EXTUBATED - to BIPAP 12/29- NC , bipap night , OFF pressors 12/30- BIPAP til 4 am - NC 4 L , AAO, cardizem 5 , NG OFF suction --> Increased abd distention --> back on LIS 12/31- confused , BIPAP 30/09 50% 30 tv 600 MV 17 L , steroid x1 IV , started MERREM . low UO - woods replaced , DID NOT TOLERATED OFF BIPAP 01/01 - 6L o2 , TPN started 01/06- transfer to step-down , 1 l NC 01/07 -on BIPAP last night , and in AM when trying to take off BIPAP noted to be hypoxic. Diuresis A/P Acute resp failure , hypoxic on BIPAP last night , and in AM when trying to take off BIPAP noted to be hypoxic as per RN - good air entruy, no wheezing ( not susp AECOPD) but will add breo suspected VO - will decrease TPN in have ( allowed clear liquids and does tolerate PO - diuresis -aiming for a better HR control - persistent in 110-120 overnight - cxr ordered - ? mucous plugs vs atelectasis, Gastric perforation, had parital [id number] --CT 12/25 - high-grade small bowel obstruction. - on clear liquids Chronic a fib with RVR -cardizem gtt OFF - to PO - need adjustment for a nertter HR control -Lovenox full dose - cards follow COPD -using oxygen at night,- CT with Severe emphysematous change and bullous disease -LABA/ICS - try to avoid systemic steroids , one dose 12/30 Multiple Lung infection in past -Hx of pulmonary aspergillous 2018 S/p right lung decortication on January 28, 2018 resulted in hydropneumothorax and marked emphysema and had prolonged chest tube placement. CAD-EF 40 % Pulm htn with PSAP in 50's- monitor for VO AAA< s/p with stent in place Card arrest 12/25 with ROSC 5 min ( secondary to resp failure? ) =recovered well Multiple right rib fractures.- post arrest 's CPR , no PTX Possivle PNA with patchy airspace opacity on CT ch- sputum 12/26-Klebsiella - finished abx Lines : R IJ 12/26 , art line - removed 12/29 , (Central Line Necessity Reviewed) Woods: 12/31 Urinary retntion /low UP 12/31- woods replaced - removed 01/05 VTE Prophylaxis: blake 70 Service provided via interactive audio and video telecommunications to a patient admitted Via [facility]. Plans in collaboration with bedside consultants and IM MDs. Discussed with RN to reach out if any questions or concerns 10 minutes of critical care time was devoted to this patient today, required to treat and/or prevent further deterioration of critical care condition ( as above ) . I am remotely monitoring this patient from another state. I am unable to do the bedside exam, and history/physical and pertinent information is taken from other notes in the computer and bedside staff. Sepsis Event Evaluation Height, Weight, BMI Height: 6'4.00" Weight: 154lbs. 2.0oz. 69.554833tv; 22.31 BMI Method:Stated Exam Exam Patient acknowledged, consented, and participated in this virtual visit which was conducted using real time audio/video Vital Signs Date Time Temp Pulse Resp B/P (MAP) Pulse Ox O2 Delivery O2 Flow Rate FiO2 01/07/23 11:10 115 25 95 30.00 01/07/23 08:00 NIV Bilevel 30 01/07/23 07:36 36.2 129 19 138/72 (94) 94 NIV Bilevel 19.00 30.00 01/07/23 07:00 124 01/07/23 06:59 112 20 97 30.00 01/07/23 04:53 115 18 88 30.00 01/07/23 04:16 36.4 125 18 116/71 (86) 96 NIV Bilevel 30.00 01/07/23 02:43 104 19 96 30.00 01/07/23 02:25 123 24 137/87 (104) 91 NIV Bilevel 30.00 01/07/23 00:04 36.3 01/07/23 00:00 111 17 123/95 (104) 96 Nasal Cannula 1.00 01/07/23 00:00 111 01/06/23 22:23 118 29 94 30.00 01/06/23 22:21 121 20 144/80 (101) 92 High Flow N/C 1.00 01/06/23 19:55 High Flow N/C 1.00 01/06/23 19:47 36.5 123 155/91 (112) 95 High Flow N/C 1.00 01/06/23 19:43 37.0 115 19 117/91 (100) 94 High Flow N/C 1.00 01/06/23 19:15 112 01/06/23 15:00 117 22 138/119 (125) 93 Nasal Cannula 1.00 01/06/23 14:56 96 Nasal Cannula 1.00 01/06/23 14:00 112 28 120/91 (101) 97 Nasal Cannula 1.00 01/06/23 13:00 127 01/06/23 13:00 130 14 137/97 (110) 96 Nasal Cannula 1.00 01/06/23 12:00 120 25 137/88 (104) 97 Nasal Cannula 1.00 01/06/23 12:00 99 Nasal Cannula 1.00 I & O 01/07/23 06:59 Intake Total 1100 ml Output Total 2050 ml Balance -950 ml Height & Weight Height: 6'4.00" Weight: 154lbs. 2.0oz. 69.421284je; 22.31 BMI Method:Stated General Appearance: No Apparent Distress, Chronically ill HEENT: PERRL/EOMI, Normal ENT Inspection Neck: Non Tender, Supple Respiratory: Chest Non Tender, Other (slightly labored breating.) Cardiovascular: No JVD, Irregularly Irregular Capillary Refill: Less Than 3 Seconds Peripheral Pulses: 2+ Dorsalis Pedis (R), 2+ Left Dors-Pedis (L), 2+ Radial Pulses (R), 2+ Radial Pulses (L) Gastrointestinal: soft, distended (about same as yesterday), tenderness (minimal midline, incision c/d/i) Extremity: Non Tender, No Calf Tenderness Neurologic/Psychiatric: Alert, Oriented x3 Skin: Normal Color, Warm/Dry Lymphatic: No Adenopathy Results Lab Laboratory Tests 01/06/23 04:40 01/07/23 04:20 Assessment/Plan Assessment/Plan 1 ALEXIS MARSH MD Jan 07, 2023 11:53
--- NOTE | 2023-01-07 12:55 | Diagnostic Imaging Report ---
CLINICAL INDICATIONS: Patient with hypoxia. Patient cannot keep oxygen saturations up. EXAM: Portable chest x-ray upright view. COMPARISON: Chest x-ray dated 01/06/2023. FINDINGS: There is slight improved aeration of both lungs. There is persistent increased lung markings and curvilinear opacities involving both lungs, most pronounced in the right upper lobe and left lower lung field region. There is no pleural effusion or pneumothorax. Pulmonary vasculature and cardiac silhouette are within normal limits. Air-filled loops of intestine overlying the upper abdomen is again seen. There are degenerative spurs involving the thoracic spine. IMPRESSION: 1: There is slight improved aeration involving both lungs. There is otherwise persistent curvilinear opacities and increased lung markings involving both lungs which may be related to chronic lung changes. Continued follow-up would help better evaluate for interval change or improvement. Dictated by: Dictated on workstation # [id number]
[2023-01-07] MEDS ORDERED: ENAL-70 PO (13:00)
[2023-01-07] MEDS ORDERED: SIMV80TA21 PO (13:00)
[2023-01-07] MEDS ORDERED: EMPA25TA PO (13:00)
[2023-01-07] MEDS ORDERED: METF-399 PO (13:00)
[2023-01-07] MEDS ORDERED: DIGOXIN INJECTION 0.25 MG/ML 2 ML AMPULE IV NR ×2 (13:30→18:30)
--- NOTE | 2023-01-07 13:36 | Cardiology Progress Note ---
Subjective Date Seen by Provider: Jan 07, 2023 Time Seen by Provider: 12:35 Subjective/Events-last exam He appears to be short of breath. On BiPAP. In atrial fibrillation with uncontrolled rate Exam Vital Signs Vital Signs Date Time Temp Pulse Resp B/P (MAP) Pulse Ox O2 Delivery O2 Flow Rate FiO2 01/07/23 13:17 36.5 20 110/86 (94) 94 NIV Bilevel 30.00 01/07/23 12:43 130 01/07/23 08:00 30 Physical Exam Alert, on BiPAP. Neck supple no JVD. Lungs decreased breath sounds bilaterally. Heart: S1-S2, irregular rhythm, tachycardia. Abdomen distended, decreased bowel sounds, no significant tenderness. Extremities no edema Labs Laboratory Tests Test 01/07/23 04:20 Range/Units White Blood Count 7.1 4.3-11.0 10^3/uL Red Blood Count 3.09 L 4.30-5.52 10^6/uL Hemoglobin 10.7 L 13.3-17.7 g/dL Hematocrit 32 L 40-54 % Mean Corpuscular Volume 103 H 80-99 fL Mean Corpuscular Hemoglobin 35 H 25-34 pg Mean Corpuscular Hemoglobin Concent 34 32-36 g/dL Red Cell Distribution Width 14.6 H 10.0-14.5 % Platelet Count 189 130-400 10^3/uL Mean Platelet Volume 11.0 9.0-12.2 fL Immature Granulocyte % (Auto) 2 % Neutrophils (%) (Auto) 67 42-75 % Lymphocytes (%) (Auto) 19 12-44 % Monocytes (%) (Auto) 11 0-12 % Eosinophils (%) (Auto) 1 0-10 % Basophils (%) (Auto) 0 0-10 % Neutrophils # (Auto) 4.7 1.8-7.8 10^3/uL Lymphocytes # (Auto) 1.3 1.0-4.0 10^3/uL Monocytes # (Auto) 0.8 0.0-1.0 10^3/uL Eosinophils # (Auto) 0.1 0.0-0.3 10^3/uL Basophils # (Auto) 0.0 0.0-0.1 10^3/uL Immature Granulocyte # (Auto) 0.1 0.0-0.1 10^3/uL Sodium Level 138 135-145 MMOL/L Potassium Level 4.1 3.6-5.0 MMOL/L Chloride Level 106 98-107 MMOL/L Carbon Dioxide Level 27 21-32 MMOL/L Anion Gap 5 5-14 MMOL/L Blood Urea Nitrogen 18 7-18 MG/DL Creatinine 0.68 0.60-1.30 MG/DL Estimat Glomerular Filtration Rate 102 BUN/Creatinine Ratio 26 Glucose Level 98 70-105 MG/DL Calcium Level 8.3 L 8.5-10.1 MG/DL Corrected Calcium 9.5 8.5-10.1 MG/DL Magnesium Level 1.8 1.6-2.4 MG/DL Total Bilirubin 0.7 0.1-1.0 MG/DL Aspartate Amino Transf (AST/SGOT) 41 H 5-34 U/L Alanine Aminotransferase (ALT/SGPT) 34 0-55 U/L Alkaline Phosphatase 118 40-136 U/L Total Protein 5.9 L 6.4-8.2 GM/DL Albumin 2.5 L 3.2-4.5 GM/DL Radiology Date of Exam:01/07/23 CHEST 1 VIEW, AP/PA ONLY CLINICAL INDICATIONS: Patient with hypoxia. Patient cannot keep oxygen saturations up. EXAM: Portable chest x-ray upright view. COMPARISON: Chest x-ray dated 01/06/2023. FINDINGS: There is slight improved aeration of both lungs. There is persistent increased lung markings and curvilinear opacities involving both lungs, most pronounced in the right upper lobe and left lower lung field region. There is no pleural effusion or pneumothorax. Pulmonary vasculature and cardiac silhouette are within normal limits. Air-filled loops of intestine overlying the upper abdomen is again seen. There are degenerative spurs involving the thoracic spine. IMPRESSION: 1: There is slight improved aeration involving both lungs. There is otherwise persistent curvilinear opacities and increased lung markings involving both lungs which may be related to chronic lung changes. Continued follow-up would help better evaluate for interval change or improvement. A/P-Cardiology Admission Diagnosis Acute abdomen Acute respiratory failure Coronary artery disease Permanent atrial fibrillation Dilated cardiomyopathy Assessment/Plan Atrial fibrillation: Heart rate is uncontrolled today. Will increase the dose of Cardizem, add digoxin. Could be related to respiratory distress Status post cardiac arrest: Has been stable. Continue to monitor Status post acute abdomen, gastric perforation, status post exploratory laparo tim done on December 21, 2022 Improving Managed by surgical team. Continue to monitor Coronary artery disease, history of stenting Patient was scheduled for [facility] on December 23, 2022 as outpatient. On hold for now. COPD, using oxygen at night, had a complex hospitalization with Legionella pneumonia and CMV, respiratory failure, multiple cardiac arrest in October 2017. loculated pneumonia underwent right lung decortication on January 28, 2018 resulted in hydropneumothorax and marked emphysema and had prolonged chest tube placement. History of congestive heart failure, chronic left ventricular systolic dysfunction: Will add Jardiance. Heavy alcoholism, managed by primary care physician Abdominal aortic aneurysm, had a stent placed by Dr. Hogue done in June 2021. Hypertension: Blood pressure controlled, continue to monitor. Hyperlipidemia, continue to monitor lipids LOLA Healy DMITRY MD Jan 07, 2023 13:36
[2023-01-07] MEDS: LACTATED RINGERS 1,000 ML 1,000 ML IV SCH (16:17)
[2023-01-07] MEDS: SODIUM ACETATE IV SCH ×11 (17:14)
[2023-01-07] MEDS: SODIUM CHLORIDE IV SCH ×11 (17:14)
[2023-01-07] MEDS: [UNRECOGNIZED DRUG - OTHER] IV SCH ×11 (17:14)
[2023-01-07 20:00] VITALS: BP 147/83
[2023-01-07] MEDS: MELATONIN 3 MG TABLET PO SCH (21:08)
[2023-01-08] VITALS: BP 114/66
[2023-01-08] MEDS: RT-Ipratropium/Albuterol NEB 3 ML VIAL INH SCH ×4 (02:57→23:04)
[2023-01-08] MEDS: ENOXAPARIN 80 MG/0.8 ML SYRINGE SC SCH ×2 (03:25→15:25)
[2023-01-08] MEDS: meTOprolol INJECTION 5 MG/5 ML VIAL IV SCH ×4 (03:25→21:36)
[2023-01-08 04:00] VITALS: BP 114/73
[2023-01-08] MEDS: fentaNYL INJECTION 100 MCG/2 ML VIAL IVP PRN ×5 (05:25→21:36)
[2023-01-08 05:36] LABS: BASOPHILS % (AUTO) 0 % (0-10); EOSINOPHILS # (AUTO) 0.1 10^3/uL (0.0-0.3); EOSINOPHILS % (AUTO) 1 % (0-10); HEMATOCRIT 35 % (40-54); HEMOGLOBIN 11.7 g/dL (13.3-17.7); LYMPHOCYTES # (AUTO) 1.5 10^3/uL (1.0-4.0); LYMPHOCYTES % (AUTO) 16 % (12-44); MEAN CORPUSCULAR HEMOGLOBIN 34 pg (25-34); MEAN CORPUSCULAR HGB CONC 33 g/dL (32-36); MEAN CORPUSCULAR VOLUME 103 fL (80-99); MEAN PLATELET VOLUME 11.3 fL (9.0-12.2); MONOCYTES # (AUTO) 0.8 10^3/uL (0.0-1.0); MONOCYTES % (AUTO) 9 % (0-12); NEUTROPHILS # (AUTO) 6.7 10^3/uL (1.8-7.8); NEUTROPHILS % (AUTO) 73 % (42-75); PLATELET COUNT 228 10^3/uL (130-400); WHITE BLOOD COUNT 9.2 10^3/uL (4.3-11.0)
[2023-01-08 06:01] LABS: ALBUMIN 3.2 GM/DL (3.2-4.5); BILIRUBIN,TOTAL 0.9 MG/DL (0.1-1.0); CALCIUM 9.2 MG/DL (8.5-10.1); CREATININE SERUM 0.81 MG/DL (0.60-1.30); POTASSIUM 3.9 MMOL/L (3.6-5.0); TOTAL PROTEIN 7.2 GM/DL (6.4-8.2)
[2023-01-08] MEDS: MAGNESIUM 1 GM/100 ML IVPB 100 ML IV SCH (06:26)
[2023-01-08] MEDS: POTASSIUM CL 10MEQ/50ML IVPB 50 ML IV SCH (06:26)
[2023-01-08] MEDS: POTASSIUM CHLORIDE 20 MEQ TABLET PO SCH (06:26)
--- NOTE | 2023-01-08 06:37 | Progress Note - Hospitalist ---
Subjective HPI/CC On Admission Date Seen by Provider: Jan 08, 2023 Time Seen by Provider: 11:00 67 yo male admitted after coming to ER with abdominal pain and having CT that showed large free air in abdomen. He underwent exploratory laparoscopy and found to have gastric perforation and partial gastrectomy was done last night. This morning he is still intubated, is alert but unable to give history due to ventilator status. Subjective/Events-last exam Patient doing a lot better No longer on BiPAP Still very weak TPN maintained No falls Pain meds will be transition to p.o. Review of Systems General: Fatigue, Malaise Pulmonary: Dyspnea Objective Exam Vital Signs Vital Signs Date Time Temp Pulse Resp B/P (MAP) Pulse Ox O2 Delivery O2 Flow Rate FiO2 01/08/23 13:00 83 01/08/23 12:04 37.3 12 123/81 (95) 97 High Flow N/C 1.00 01/07/23 08:00 30 Capillary Refill : Less Than 3 Seconds General Appearance: No Apparent Distress, WD/WN, Chronically ill Respiratory: Lungs Clear, Normal Breath Sounds, Decreased Breath Sounds Cardiovascular: Regular Rate, Rhythm Neurologic/Psychiatric: Alert, Oriented x3, No Motor/Sensory Deficits, Normal Mood/Affect Results/Procedures Lab Laboratory Tests 01/08/23 05:00 Patient resulted labs reviewed. Assessment/Plan Assessment and Plan Assess & Plan/Chief Complaint Assessment: Acute hypoxic respiratory failure Currently requiring BIPAP GI bleed Exploratory laparotomy Postop ileus Ventilator associated pneumonia Alcohol withdrawal Atrial fibrillation with RVR Plan: Moved to cardiac stepdown unit Supportive care PT and OT [facility] BiPAP Critical Care Critically Ill Patient STAR KUMARI DO Jan 08, 2023 06:37
--- NOTE | 2023-01-08 07:22 | Progress Note - Surgery ---
NEMESIO HODGSON 01/08/23 0722: Subjective Date Seen by a Provider: Jan 08, 2023 Time Seen by a Provider: 07:05 Subjective/Events-last exam Pt is laying comfortably in bed. Tolerating minimal amounts of full liquids without nausea or vomiting. Last BM was this morning. Abdomen is distended. Breathing is better today. Review of Systems General: No Chills, No Night Sweats HEENT: No Head Aches, No Visual Changes Pulmonary: No Dyspnea, No Cough Cardiovascular: No: Chest Pain, Palpitations Gastrointestinal: No: Nausea, Vomiting Genitourinary: No Dysuria, No Hematuria Musculoskeletal: No: neck pain, shoulder pain Neurological: No: Weakness, Numbness Objective Exam Vital Signs Date Time Temp Pulse Resp B/P (MAP) Pulse Ox O2 Delivery O2 Flow Rate FiO2 01/08/23 04:00 77 114/73 (87) 100 NIV Bilevel 30.00 01/08/23 02:57 90 20 100 30.00 01/08/23 00:20 86 01/08/23 00:00 36.5 101 114/66 (82) 99 NIV Bilevel 30.00 01/07/23 22:39 92 20 100 30.00 01/07/23 20:00 36.6 114 18 147/83 (104) 98 High Flow N/C 5.00 01/07/23 20:00 High Flow N/C 5.00 01/07/23 19:53 36.6 114 147/83 (104) 98 High Flow N/C 5.00 01/07/23 19:21 102 01/07/23 16:42 36.8 118 20 147/83 (104) 98 High Flow N/C 5.00 01/07/23 14:36 95 Nasal Cannula 5.00 01/07/23 12:43 130 01/07/23 11:51 36.5 01/07/23 11:10 115 25 95 30.00 01/07/23 08:00 NIV Bilevel 30 01/07/23 07:36 36.2 129 19 138/72 (94) 94 NIV Bilevel 19.00 30.00 I & O 01/08/23 06:59 Intake Total 3700 ml Output Total 3050 ml Balance 650 ml Capillary Refill : Less Than 3 Seconds General Appearance: No Apparent Distress, Chronically ill HEENT: PERRL/EOMI, Normal ENT Inspection Neck: Non Tender, Supple Respiratory: Chest Non Tender, Lungs Clear, No Accessory Muscle Use Cardiovascular: No Edema, No JVD, Irregularly Irregular Peripheral Pulses: 2+ Dorsalis Pedis (R), 2+ Left Dors-Pedis (L), 2+ Radial Pulses (R), 2+ Radial Pulses (L) Gastrointestinal: soft, distended, tenderness (minimal midline, incision c/d/i) Extremity: Non Tender, No Calf Tenderness Neurologic/Psychiatric: Alert, Oriented x3 Skin: Normal Color, Warm/Dry Lymphatic: No Adenopathy Results Lab Laboratory Tests 01/08/23 05:00: White Blood Count 9.2, Red Blood Count 3.43L, Hemoglobin 11.7L, Hematocrit 35L, Mean Corpuscular Volume 103H, Mean Corpuscular Hemoglobin 34, Mean Corpuscular Hemoglobin Concent 33, Red Cell Distribution Width 14.6H, Platelet Count 228, Mean Platelet Volume 11.3, Immature Granulocyte % (Auto) 1, Neutrophils (%) (Auto) 73, Lymphocytes (%) (Auto) 16, Monocytes (%) (Auto) 9, Eosinophils (%) (Auto) 1, Basophils (%) (Auto) 0, Neutrophils # (Auto) 6.7, Lymphocytes # (Auto) 1.5, Monocytes # (Auto) 0.8, Eosinophils # (Auto) 0.1, Basophils # (Auto) 0.0, Immature Granulocyte # (Auto) 0.1, Sodium Level 138, Potassium Level 3.9, Chloride Level 104, Carbon Dioxide Level 26, Anion Gap 8, Blood Urea Nitrogen 17, Creatinine 0.81, Estimat Glomerular Filtration Rate 97, BUN/Creatinine Ratio 21, Glucose Level 111H, Calcium Level 9.2, Corrected Calcium 9.8, Total Bilirubin 0.9, Aspartate Amino Transf (AST/SGOT) 51H, Alanine Aminotransferase (ALT/SGPT) 42, Alkaline Phosphatase 144H, Total Protein 7.2, Albumin 3.2 Microbiology 12/26/22 Gram Stain - Final, Complete 12/26/22 Sputum Culture - Final, Complete Klebsiella pneumoniae Assessment/Plan Assessment/Plan Assessment/Plan S/P Ex lap with partial gastric resection S/P Respiratory Arrest Gastric Distention Ileus Afib Breathing better today, currently using NC- Pulmonary consulted Monitor blood pressure- stable abdomen is distended Full liquids, continue TPN still not taking much in. Incentive spirometer Lovenox Continue discussions with family about nursing home care Will still need colonoscopy due to thickening of the sigmoid, which he did have planned but due to condition will need to hold off at this time. BRYON DAVIS DO 01/08/23 1121: Subjective Subjective/Events-last exam Feeling better today. Breathing better. Tolerating some diet. Having flatus and bm. Abdomen still with some distention. Denies n/v fever sweats chills or chest pain. Objective Exam General Appearance: No Apparent Distress, Chronically ill HEENT: PERRL/EOMI, Normal ENT Inspection Neck: Non Tender, Supple Respiratory: Chest Non Tender, No Accessory Muscle Use, No Respiratory Distress Cardiovascular: No JVD, Irregularly Irregular Gastrointestinal: soft, distended, tenderness (minimal midline, incision c/d/i) Extremity: Non Tender Neurologic/Psychiatric: Alert, Oriented x3 Skin: Normal Color, Warm/Dry Lymphatic: No Adenopathy Assessment/Plan Assessment/Plan Assessment/Plan S/P Ex lap with partial gastric resection S/P Respiratory Arrest Gastric Distention Ileus Afib Breathing better today, currently using NC- Pulmonary consulted Monitor blood pressure- stable abdomen is distended but same and has bowel function Full liquids, continue TPN still not taking much in. Calorie count-dietary Incentive spirometer Lovenox Continue discussions with family about nursing home care Will still need colonoscopy due to thickening of the sigmoid, which he did have planned but due to condition will need to hold off at this time. PT- ? rehab Supervisory-Addendum Brief Verification & Attestation Participated in pt care: history, MDM, physical Personally performed: exam, history, MDM, supervision of care Care discussed with: Medical Student Procedures: n/a Results interpretation: Verified all documentation Verification and Attestation of Medical Student E/M Service A medical student performed and documented this service in my presence. I reviewed and verified all information documented by the medical student and made modifications to such information, when appropriate. I personally performed the physical exam and medical decision making. Bryon Davis, Jan 08, 2023,11:21 NEMESIO HODGSON Jan 08, 2023 07:22 BRYON DAVIS DO Jan 08, 2023 11:21
[2023-01-08 07:51] VITALS: BP 127/74
[2023-01-08] MEDS ORDERED: POTASSIUM CHLORIDE 20 MEQ TABLET PO ONE (08:00)
[2023-01-08] MEDS: EMPAGLIFLOZIN 10 MG TABLET PO SCH (08:44)
[2023-01-08] MEDS: PANTOPRAZOLE INJECTION 40 MG VIAL IV SCH ×2 (08:44→21:36)
[2023-01-08 09:51] LABS: PHOSPHORUS 3.7 MG/DL (2.3-4.7)
[2023-01-08 09:53] LABS: MAGNESIUM 1.8 MG/DL (1.6-2.4)
--- NOTE | 2023-01-08 10:08 | Occupational Ther Daily Note ---
OT Current Status-Daily Note Subjective OT initiated therapy this morning and patient requested postpone following mcintyre meds and breakfast. OT no returns. Patient agrees to EOB UE ther ex. Mental Status/Objective Patient Orientation: Person, Place, Time, Situation Attachments: IV, Oxygen, Telemetry ADL-Treatment Therapy Code Descriptions/Definitions Functional [place] Measure: 0=Not Assessed/NA 4=Minimal Assistance 1=Total Assistance 5=Supervision or Setup 2=Maximal Assistance 6=Modified [place] 3=Moderate Assistance 7=Complete IndependenceSCALE: Activities may be completed with or without assistive devices. 3-Luzphdjcbe-auibmbx completes the activity by him/herself with no assistance from a helper. 5-Set-up or Clean-up Assistance-helper sets up or cleans up; patient completes activity. [place] assists only prior to or following the activity. 4-Supervision or Touching Assistance-helper provides verbal cues and/or touching/steadying and/or contact guard assistance as patient completes activity. Assistance may be provided throughout the activity or intermittently. 3-Partial/Moderate Assistance-helper does LESS THAN HALF the effort. [place] lifts, holds or supports trunk or limbs, but provides less than half the effort. 2-Substantial/Maximal Assistance-helper does MORE THAN HALF the effort. [place] lifts or holds trunk or limbs and provides more than half the effort. 1-Ozjqpqchl-arfmlq does ALL the effort. Patient does none of the effort to complete the activity. Or, the assistance of 2 or more helpers is required for the patient to complete the activity. If activity was not attempted, code reason: 7-Patient Refused. 9-Not Applicable-not attempted and the patient did not perform the activity before the current illness, exacerbation or injury. 10-Not Attempted due to Environmental Limitations-(lack of equipment, weather restraints, etc.). 88-Not Attempted due to Medical Conditions or Safety Concerns. Other Treatment Sitting unsupported EOB for multidirectional functional reach 10x3 w/ RB between sets and monitor HR, telemetry leads insecure and 2 CONSTANTIN savage aware Education OT Patient Education: Correct positioning, Exercise program, Progress toward Goal/Update tx plan, Purpose of tx/functional activities, Reviewed precautions, Rehab process, Safety issues Teaching Recipient: Patient Response to Teaching: Verbalize Understanding, Reinforcement Needed OT Fci Goals Fci Goals Eating (QC): 6 Oral Hygiene (QC): 5 Toileting Hygiene (QC): 4 Shower/Bathe Self (QC): 4 Upper Body Dressing (QC): 4 Lower Body Dressing (QC): 4 On/Off Footwear (QC): 4 1=Demonstrate adherence to instructed precautions during ADL tasks. 2=Patient will verbalize/demonstrate understanding of assistive devices/modifications for ADL. 3=Patient will improve strength/tolerance for activity to enable patient to perform ADL's. OT Education/Plan Problem List/Assessment Assessment: Decreased Activ Tolerance, Decreased UE Strength Discharge Recommendations Plan/Recommendations: Continue POC Treatment Plan/Plan of Care Treatment,Training & Education: Yes Patient would benefit from OT for education, treatment and training to promote independence in ADL's, mobility, safety and/or upper extremity function for ADL's. Plan of Care: ADL Retraining, Functional Mobility, Group Exercise/Act as Ind, UE Funct Exercise/Act Treatment Duration: Jan 08, 2023 Frequency: 3 times per week (3-5 times per week) Estimated Hrs Per Day: .25 hour per day Agreement: Yes Rehab Potential: Fair Time Start Time: 09:30 Stop Time: 09:45 DATE: Jan 08, 2023 Total Time Billed (hr/min): 15 Billed Treatment Time EX 15 SARAH CARTAGENA OT Jan 08, 2023 10:08
--- NOTE | 2023-01-08 10:31 | Physical Therapy Daily Note ---
PT Daily Note-Current Subjective Pt is in bed, just finished with OT. He is agreeable to treatment. Pain Section J - Health Conditions 1. Rarely or not at all 2. Occasionally 3. Frequently 4. Almost constantly 8. Unable to answer Pain Effect on Sleep: 1 Pain Interference with Therapy: 1 Pain Interference w/Day-to-Day: 1 Mental Status Patient Orientation: Person, Place, Time, Situation Attachments: Oxygen, IV Transfers SCALE: Activities may be completed with or without assistive devices. 4-Gfwqpvlcts-bdkinxl completes the activity by him/herself with no assistance from a helper. 5-Set-up or Clean-up Assistance-helper sets up or cleans up; patient completes activity. [place] assists only prior to or following the activity. 4-Supervision or Touching Assistance-helper provides verbal cues and/or touc torey/steadying and/or contact guard assistance as patient completes activity. Assistance may be provided throughout the activity or intermittently. 3-Partial/Moderate Assistance-helper does LESS THAN HALF the effort. [place] lifts, holds or supports trunk or limbs, but provides less than half the effort. 2-Substantial/Maximal Assistance-helper does MORE THAN HALF the effort. [place] lifts or holds trunk or limbs and provides more than half the effort. 9-Cnayjdkpl-figudw does ALL the effort. Patient does none of the effort to complete the activity. Or, the assistance of 2 or more helpers is required for the patient to complete the activity. If activity was not attempted, code reason: 7-Patient Refused. 9-Not Applicable-not attempted and the patient did not perform the activity before the current illness, exacerbation or injury. 10-Not Attempted due to Environmental Limitations-(lack of equipment, weather restraints, etc.). 88-Not Attempted due to Medical Conditions or Safety Concerns. Roll Left & Right (QC): 5 Sit to Lying (QC): 5 Lying to Sitting/Side of Bed(Q: 5 Sit to Stand (QC): 5 Gait Training Does the Patient Walk?: No and Walking Goal IS indicated Exercises Supine Ex: LE Protocol Supine Reps: 15 Pt was able to perform all supine exercises without assistance. He required a 30-60 second rest when switching legs. Oxygen remained at or above 95%. Assessment Current Status: Good Progress Pt was able to stand for 68 seconds and sat edge of bed for 4min. He was able to get back into bed without assist. PT Real Estate Assistant Goals Care Home Goals PT Real Estate Assistant Goals Time Frame: Jan 30, 2023 Roll Left & Right (QC): 6 Sit to Lying (QC): 6 Lying-Sitting on Side/Bed(QC): 6 Sit to Stand (QC): 6 Chair/Ofg-sm-Otodc Xfer(QC): 6 Toilet Transfer (QC): 6 Walk 10 feet (QC): 6 Walk 50ft with 2 Turns (QC): 6 Walk 150 ft (QC): 6 PT Plan Treatment/Plan Treatment Plan: Continue Plan of Care Treatment Plan: Bed Mobility, Education, Functional Activity Renée, Functional Strength, Gait, Safety, Therapeutic Exercise, Transfers Treatment Duration: Jan 30, 2023 Frequency: 5 times per week Estimated Hrs Per Day: .25 hour per day Patient and/or Family Agrees t: Yes Time Time In: 1000 Time Out: 1015 DATE: Jan 08, 2023 Total Billed Treatment Time: 15 Total Billed Treatment 1, ex 15 RADHA ARITA PT Jan 08, 2023 10:30
--- NOTE | 2023-01-08 10:34 | Pulmonary Progress Note ---
Subjective Date Seen by a Provider: Jan 08, 2023 Time Seen by a Provider: 10:33 Subjective/Events-last exam (Tele-ICU / PULMONARY Physician , Progress Note ) follow as pulmonary as per request of PCP =- patient transferred out of ICU, hypoxic was on BIPAP last night , and in AM when trying to take off BIPAP noted to be hypoxic Service provided via interactive audio and video telecommunications E-CARE system to a patient admitted to ICU bed in [facility]. Afebrile hemodynamically stable Respiratory -1 L I/O = neg Hospital course: (12/21) 67yr old male admitted s/p Ex. Lap partial gastric resection(gastric perf). Intubated (12/22) Extubated. (12/26) pt hypoxic on bipap-Intubated, arrested after intubation w/ ROSC, CTH - WNL , CT abd- high-grade small bowel obstruction. 12/27- on levo 0.04 and vaso 0.03, Fio2 50 % , RASS -2 on propofol 30 fentanyl 50 , cardizem 5 12/28- fio2 40 % , on levo 0.04 and vaso 0.03, Fio2 50 % , RASS -2 on propofol 30 fentanyl 50 , cardizem 5 12/28- EXTUBATED - to BIPAP 12/29- NC , bipap night , OFF pressors 12/30- BIPAP til 4 am - NC 4 L , AAO, cardizem 5 , NG OFF suction --> Increased abd distention --> back on LIS 12/31- confused , BIPAP 30/09 50% 30 tv 600 MV 17 L , steroid x1 IV , started MERREM . low UO - woods replaced , DID NOT TOLERATED OFF BIPAP 01/01 - 6L o2 , TPN started 01/06- transfer to step-down , 1 l NC 01/07 -on BIPAP last night , and in AM when trying to take off BIPAP noted to be hypoxic. Diuresis with lasix 01/08 - bipap at nig , 3L NC after diuresis- > 3L urine output A/P Acute resp failure , hypoxic on BIPAP last night , and in AM when trying to take off BIPAP noted to be hypoxic as per RN - good air entruy, no wheezing ( not susp AECOPD) but will add breo suspected VO - responded well to diuresis- > 3L output , and went off BIPAP to NC - HR is under control -did decrease TPN in have ( allowed clear liquids and does tolerate PO - will ask Sx if ok to do this ot increase rate to full - then will need to keep very close tap on i/O Gastric perforation, had parital [id number]/6 --CT 12/25 - high-grade small bowel obstruction. - on clear liquids Chronic a fib with RVR -cardizem gtt OFF - to PO - need adjustment for a nertter HR control -Lovenox full dose - cards follow COPD -using oxygen at night,- CT with Severe emphysematous change and bullous disease -LABA/ICS - try to avoid systemic steroids , one dose 12/30 Multiple Lung infection in past -Hx of pulmonary aspergillous 2018 S/p right lung decortication on January 28, 2018 resulted in hydropneumothorax and marked emphysema and had prolonged chest tube placement. CAD-EF 40 % Pulm htn with PSAP in 50's- monitor for VO AAA< s/p with stent in place Card arrest 12/25 with ROSC 5 min ( secondary to resp failure? ) =recovered well Multiple right rib fractures.- post arrest 's CPR , no PTX Possivle PNA with patchy airspace opacity on CT ch- sputum 12/26-Klebsiella - finished abx Lines : R IJ 12/26 , art line - removed 12/29 , (Central Line Necessity Reviewed) Woods: 12/31 Urinary retntion /low UP 12/31- woods replaced - removed 01/05 VTE Prophylaxis: blake 70 Service provided via interactive audio and video telecommunications to a patient admitted [facility]. Plans in collaboration with bedside consultants and IM MDs. Discussed with RN to reach out if any questions or concerns 10 minutes of critical care time was devoted to this patient today, required to treat and/or prevent further deterioration of critical care condition ( as above ) . I am remotely monitoring this patient from another state. I am unable to do the bedside exam, and history/physical and pertinent information is taken from other notes in the computer and bedside staff. Sepsis Event Evaluation Height, Weight, BMI Height: 6'4.00" Weight: 154lbs. 2.0oz. [id number]; 20.61 BMI Method:Stated Exam Exam Patient acknowledged, consented, and participated in this virtual visit which was conducted using real time audio/video Vital Signs Date Time Temp Pulse Resp B/P (MAP) Pulse Ox O2 Delivery O2 Flow Rate FiO2 01/08/23 09:20 High Flow N/C 5.00 01/08/23 09:20 95 High Flow N/C 1.00 01/08/23 07:55 95 Nasal Cannula 5.00 01/08/23 07:51 37.7 90 17 127/74 (91) 93 High Flow N/C 5.00 01/08/23 07:00 87 01/08/23 04:00 77 114/73 (87) 100 NIV Bilevel 30.00 01/08/23 02:57 90 20 100 30.00 01/08/23 00:20 86 01/08/23 00:00 36.5 101 114/66 (82) 99 NIV Bilevel 30.00 01/07/23 22:39 92 20 100 30.00 01/07/23 20:00 36.6 114 18 147/83 (104) 98 High Flow N/C 5.00 01/07/23 20:00 High Flow N/C 5.00 01/07/23 19:53 36.6 114 147/83 (104) 98 High Flow N/C 5.00 01/07/23 19:21 102 01/07/23 16:42 36.8 118 20 147/83 (104) 98 High Flow N/C 5.00 01/07/23 14:36 95 Nasal Cannula 5.00 01/07/23 12:43 130 01/07/23 11:51 36.5 01/07/23 11:10 115 25 95 30.00 I & O 01/08/23 06:59 Intake Total 3700 ml Output Total 3050 ml Balance 650 ml Height & Weight Height: 6'4.00" Weight: 154lbs. 2.0oz. [id number]; 20.61 BMI Method:Stated General Appearance: No Apparent Distress, Chronically ill HEENT: PERRL/EOMI, Normal ENT Inspection Neck: Non Tender, Supple Respiratory: Chest Non Tender, Lungs Clear, No Accessory Muscle Use Cardiovascular: No Edema, No JVD, Irregularly Irregular Capillary Refill: Less Than 3 Seconds Peripheral Pulses: 2+ Dorsalis Pedis (R), 2+ Left Dors-Pedis (L), 2+ Radial Pulses (R), 2+ Radial Pulses (L) Gastrointestinal: soft, distended, tenderness (minimal midline, incision c/d/i) Extremity: Non Tender, No Calf Tenderness Neurologic/Psychiatric: Alert, Oriented x3 Skin: Normal Color, Warm/Dry Lymphatic: No Adenopathy Results Lab Laboratory Tests 01/07/23 04:20 01/08/23 05:00 Assessment/Plan Assessment/Plan 1 ALEXIS MARSH MD Jan 08, 2023 10:34
[2023-01-08 12:04] VITALS: BP 123/81
[2023-01-08] MEDS: oxyCODONE IMMEDIATE RELEASE 5 MG TABLET PO PRN ×2 (15:42→23:05)
[2023-01-08] MEDS: FLUTICASONE/VILANTEROL 200/25 MCG (14 DOSES) IH SCH (15:56)
[2023-01-08 16:00] VITALS: BP 127/67
[2023-01-08] MEDS ORDERED: SODIUM CHLORIDE IV SCH ×11 (17:00)
[2023-01-08] MEDS ORDERED: SODIUM ACETATE IV SCH ×11 (17:00)
[2023-01-08] MEDS ORDERED: [UNRECOGNIZED DRUG - OTHER] IV SCH ×11 (17:00)
[2023-01-08] MEDS: LACTATED RINGERS 1,000 ML 1,000 ML IV SCH (17:30)
[2023-01-08 20:00] VITALS: BP 148/92
[2023-01-08] MEDS: MELATONIN 3 MG TABLET PO SCH (21:36)
[2023-01-09] VITALS (7 sets, daily range): BP systolic 104–140; BP diastolic 67–90
[2023-01-09] MEDS: LACTATED RINGERS 1,000 ML 1,000 ML IV SCH (01:16)
[2023-01-09] MEDS: ENOXAPARIN 80 MG/0.8 ML SYRINGE SC SCH ×2 (02:24→15:06)
[2023-01-09] MEDS: fentaNYL INJECTION 100 MCG/2 ML VIAL IVP PRN ×6 (02:32→23:42)
[2023-01-09] MEDS: RT-Ipratropium/Albuterol NEB 3 ML VIAL INH SCH ×4 (02:55→21:02)
[2023-01-09] MEDS: meTOprolol INJECTION 5 MG/5 ML VIAL IV SCH ×4 (03:28→20:34)
[2023-01-09 03:42] LABS: BASOPHILS % (AUTO) 0 % (0-10); EOSINOPHILS # (AUTO) 0.1 10^3/uL (0.0-0.3); EOSINOPHILS % (AUTO) 1 % (0-10); HEMATOCRIT 30 % (40-54); HEMOGLOBIN 9.9 g/dL (13.3-17.7); LYMPHOCYTES # (AUTO) 1.5 10^3/uL (1.0-4.0); LYMPHOCYTES % (AUTO) 18 % (12-44); MEAN CORPUSCULAR HEMOGLOBIN 35 pg (25-34); MEAN CORPUSCULAR HGB CONC 33 g/dL (32-36); MEAN CORPUSCULAR VOLUME 105 fL (80-99); MEAN PLATELET VOLUME 11.1 fL (9.0-12.2); MONOCYTES # (AUTO) 0.9 10^3/uL (0.0-1.0); MONOCYTES % (AUTO) 11 % (0-12); NEUTROPHILS # (AUTO) 5.8 10^3/uL (1.8-7.8); NEUTROPHILS % (AUTO) 69 % (42-75); PLATELET COUNT 231 10^3/uL (130-400); WHITE BLOOD COUNT 8.4 10^3/uL (4.3-11.0)
[2023-01-09 04:00] LABS: ALBUMIN 2.7 GM/DL (3.2-4.5); BILIRUBIN,TOTAL 0.7 MG/DL (0.1-1.0); CALCIUM 8.6 MG/DL (8.5-10.1); CREATININE SERUM 0.97 MG/DL (0.60-1.30); POTASSIUM 5.2 MMOL/L (3.6-5.0); TOTAL PROTEIN 6.2 GM/DL (6.4-8.2)
[2023-01-09] MEDS: POTASSIUM CHLORIDE 20 MEQ TABLET PO SCH (06:02)
[2023-01-09] MEDS: oxyCODONE IMMEDIATE RELEASE 5 MG TABLET PO PRN (06:02)
[2023-01-09] MEDS: POTASSIUM CL 10MEQ/50ML IVPB 50 ML IV SCH (06:02)
[2023-01-09] MEDS: MAGNESIUM 1 GM/100 ML IVPB 100 ML IV SCH (06:02)
--- NOTE | 2023-01-09 06:18 | Progress Note - Hospitalist ---
Subjective HPI/CC On Admission Date Seen by Provider: Jan 09, 2023 Time Seen by Provider: 11:00 67 yo male admitted after coming to ER with abdominal pain and having CT that showed large free air in abdomen. He underwent exploratory laparoscopy and found to have gastric perforation and partial gastrectomy was done last night. This morning he is still intubated, is alert but unable to give history due to ventilator status. Subjective/Events-last exam Patient has no complaints No BiPAP today No pain Reviewed meds and labs Review of Systems General: Fatigue, Malaise Objective Exam Vital Signs Vital Signs Date Time Temp Pulse Resp B/P (MAP) Pulse Ox O2 Delivery O2 Flow Rate FiO2 01/10/23 04:00 133/89 (102) Nasal Cannula 1.00 01/10/23 03:00 101 15 96 01/09/23 23:35 37.2 01/07/23 08:00 30 Capillary Refill : Less Than 3 Seconds General Appearance: No Apparent Distress, WD/WN, Chronically ill Respiratory: Lungs Clear, Normal Breath Sounds Cardiovascular: Regular Rate, Rhythm Neurologic/Psychiatric: Alert, Oriented x3 Results/Procedures Lab Laboratory Tests 01/10/23 03:45 Patient resulted labs reviewed. Assessment/Plan Assessment and Plan Assess & Plan/Chief Complaint Assessment: Acute hypoxic respiratory failure Currently requiring BIPAP GI bleed Exploratory laparotomy Postop ileus Ventilator associated pneumonia Alcohol withdrawal Atrial fibrillation with RVR Plan: Moved to cardiac stepdown unit Supportive care PT and OT [facility] BiPAP Critical Care Critically Ill Patient STAR KUMARI DO Jan 09, 2023 06:18
[2023-01-09] MEDS: PANTOPRAZOLE INJECTION 40 MG VIAL IV SCH ×2 (07:52→20:34)
[2023-01-09] MEDS: EMPAGLIFLOZIN 10 MG TABLET PO SCH (07:52)
--- NOTE | 2023-01-09 08:28 | Progress Note - Surgery ---
NEMESIO HODGSON 01/09/23 0828: Subjective Date Seen by a Provider: Jan 09, 2023 Time Seen by a Provider: 07:45 Subjective/Events-last exam Pt is resting in bed and having right sided rib pain. Pt stated that he took oral pain med this morning and it did not help pain. Pain was rated as 8/10. RN gave fentanyl to control pain. Pt states that he ate all of his breakfast and lunch and some of his dinner yesterday. Pt is passing flatus. No nausea or vomiting. No family at bedside. Denies chest pain, SOA, fever, constipation, diarrhea. Review of Systems General: No Chills, No Night Sweats HEENT: No Head Aches, No Visual Changes Pulmonary: No Dyspnea; Cough Cardiovascular: No: Chest Pain, Palpitations, Edema Gastrointestinal: No: Nausea, Vomiting Genitourinary: No Dysuria, No Hematuria Musculoskeletal: No: neck pain, shoulder pain Neurological: No: Change in speech, Confusion Objective Exam Vital Signs Date Time Temp Pulse Resp B/P (MAP) Pulse Ox O2 Delivery O2 Flow Rate FiO2 01/09/23 08:08 36.4 93 12 104/75 (85) 96 High Flow N/C 1.00 01/09/23 07:00 82 01/09/23 06:00 High Flow N/C 1.00 01/09/23 04:04 36.6 68 18 104/67 (79) 100 NIV Bilevel 30.00 01/09/23 02:55 97 21 100 30.00 01/09/23 00:24 98 01/08/23 23:15 36.6 NIV Bilevel 30.00 01/08/23 23:05 91 20 96 30.00 01/08/23 22:06 36.1 01/08/23 20:00 36.1 89 24 148/92 (110) 94 High Flow N/C 1.00 01/08/23 20:00 94 High Flow N/C 5.00 01/08/23 19:01 96 01/08/23 17:41 95 High Flow N/C 1.00 01/08/23 16:00 36.6 88 24 127/67 (87) 94 Nasal Cannula 01/08/23 15:38 Room Air 01/08/23 14:45 95 Nasal Cannula 5.00 01/08/23 13:00 83 01/08/23 12:04 37.3 92 12 123/81 (95) 97 High Flow N/C 1.00 01/08/23 09:20 High Flow N/C 5.00 01/08/23 09:20 95 High Flow N/C 1.00 I & O 01/09/23 07:00 Intake Total 2100 ml Output Total 1550 ml Balance 550 ml Capillary Refill : Less Than 3 Seconds General Appearance: No Apparent Distress, WD/WN, Chronically ill HEENT: PERRL/EOMI, Normal ENT Inspection Neck: Non Tender, Supple Respiratory: Lungs Clear, Normal Breath Sounds, No Accessory Muscle Use Cardiovascular: Irregularly Irregular Peripheral Pulses: 2+ Dorsalis Pedis (R), 2+ Left Dors-Pedis (L), 2+ Radial Pulses (R), 2+ Radial Pulses (L) Gastrointestinal: soft, distended, tenderness (minimal midline, incision c/d/i) Extremity: Non Tender, No Calf Tenderness, No Pedal Edema Neurologic/Psychiatric: Alert, Oriented x3, No Motor/Sensory Deficits, Normal Mood/Affect Skin: Normal Color, Warm/Dry Lymphatic: No Adenopathy Results Lab Laboratory Tests 01/09/23 03:30: White Blood Count 8.4, Red Blood Count 2.84L, Hemoglobin 9.9L, Hematocrit 30L, M [place] Corpuscular Volume 105H, Mean Corpuscular Hemoglobin 35H, Mean Corpuscular Hemoglobin Concent 33, Red Cell Distribution Width 14.7H, Platelet Count 231, Mean Platelet Volume 11.1, Immature Granulocyte % (Auto) 1, Neutrophils (%) (Auto) 69, Lymphocytes (%) (Auto) 18, Monocytes (%) (Auto) 11, Eosinophils (%) (Auto) 1, Basophils (%) (Auto) 0, Neutrophils # (Auto) 5.8, Lymphocytes # (Auto) 1.5, Monocytes # (Auto) 0.9, Eosinophils # (Auto) 0.1, Basophils # (Auto) 0.0, Immature Granulocyte # (Auto) 0.1, Sodium Level 141, Potassium Level 5.2H, Chloride Level 107, Carbon Dioxide Level 26, Anion Gap 8, Blood Urea Nitrogen 19H, Creatinine 0.97, Estimat Glomerular Filtration Rate 86, BUN/Creatinine Ratio 20, Glucose Level 263H, Calcium Level 8.6, Corrected Calcium 9.6, Total Bi lirubin 0.7, Aspartate Amino Transf (AST/SGOT) 36H, Alanine Aminotransferase (ALT/SGPT) 31, Alkaline Phosphatase 130, Total Protein 6.2L, Albumin 2.7L 01/09/23 05:51: Glucometer 113H Microbiology 12/26/22 Gram Stain - Final, Complete 12/26/22 Sputum Culture - Final, Complete Klebsiella pneumoniae Assessment/Plan Assessment/Plan Assessment/Plan S/P Ex lap with partial gastric resection S/P Respiratory Arrest Gastric Distention Ileus Afib Breathing better today, currently using NC- Pulmonary consulted Monitor blood pressure- stable abdomen is distended, has bowel function- KUB XR today Clear liquids today, small bowel follow through tomorrow Incentive spirometer Lovenox Continue discussions with family about nursing home care Will still need colonoscopy due to thickening of the sigmoid, which he did have planned but due to condition will need to hold off at this time. Inpatient rehab consult CROW DAVIS DO 01/09/23 1123: Subjective Subjective/Events-last exam Feeling good. Having some right rib pain. Overall feeling better he tells me. Tolerating diet. Passing flatus and bm. Abdomen this morning is more distended though. Breathing okay. Denies n/v fever sweats chills or chest pain. Objective Exam General Appearance: No Apparent Distress, Chronically ill HEENT: PERRL/EOMI, Normal ENT Inspection Neck: Non Tender, Supple Respiratory: Chest Non Tender, No Accessory Muscle Use, No Respiratory Distress Cardiovascular: Irregularly Irregular Gastrointestinal: distended, tenderness (minimal midline, incision c/d/i) Extremity: Non Tender, No Calf Tenderness Neurologic/Psychiatric: Alert, Oriented x3 Skin: Normal Color, Warm/Dry Lymphatic: No Adenopathy Assessment/Plan Assessment/Plan Assessment/Plan S/P Ex lap with partial gastric resection S/P Respiratory Arrest Gastric/abdominal Distention Ileus Afib Breathing better today, currently using NC- Pulmonary consulted Monitor blood pressure- stable abdomen is distended, has bowel function- KUB XR today showing distention, will get small bowel follow through tomorrow Clear liquids today, small bowel follow through tomorrow Incentive spirometer Lovenox Continue discussions with family about radiology resident care Will still need colonoscopy due to thickening of the sigmoid, which he did have planned but due to condition will need to hold off at this time. Inpatient rehab consult Supervisory-Addendum Brief Verification & Attestation Participated in pt care: history, MDM, physical Personally performed: exam, history, MDM, supervision of care Care discussed with: Medical Student Procedures: n/a Results interpretation: Verified all documentation Verification and Attestation of Medical Student E/M Service A medical student performed and documented this service in my presence. I reviewed and verified all information documented by the medical student and made modifications to such information, when appropriate. I personally performed the physical exam and medical decision making. Crow Davis, Jan 09, 2023,11:23 NEMESIO HODGSON Jan 09, 2023 08:28 CROW DAVIS DO Jan 09, 2023 11:23
[2023-01-09 09:36] LABS: PHOSPHORUS 4.3 MG/DL (2.3-4.7)
--- NOTE | 2023-01-09 09:37 | Diagnostic Imaging Report ---
ABDOMEN/KUB 1VIEW DATE: 01/09/2023 9:27 AM INDICATION: , Abdominal distention. COMPARISON: CT of the abdomen and pelvis on 01/04/2023. TECHNIQUE: Supine view of the abdomen was obtained. FINDINGS: Midline skin delbert. Diffuse gaseous distention of bowel loops throughout the abdomen. Redemonstration of aortobiiliac graft. Included lung bases are clear. Contrast seen within the rectal region. IMPRESSION: Similar diffuse gaseous distention of bowel loops throughout the abdomen. Dictated by: Dictated on workstation # [id number]
[2023-01-09 09:38] LABS: MAGNESIUM 1.9 MG/DL (1.6-2.4)
[2023-01-09] MEDS: HYDROcodone/ACETAMINOPHEN 7.5 MG/325 MG TABLET PO PRN ×2 (09:38→20:34)
[2023-01-09] MEDS: FLUTICASONE/VILANTEROL 200/25 MCG (14 DOSES) IH SCH (09:44)
[2023-01-09] MEDS: [UNRECOGNIZED DRUG - OTHER] IV SCH ×10 (17:30)
[2023-01-09] MEDS: SODIUM PHOSPHATE IV SCH ×10 (17:30)
[2023-01-09] MEDS: POTASSIUM CHLORIDE IV SCH ×10 (17:30)
[2023-01-09] MEDS: SODIUM ACETATE IV SCH ×10 (17:30)
[2023-01-09] MEDS: MELATONIN 3 MG TABLET PO SCH (20:34)
[2023-01-10] VITALS (7 sets, daily range): BP systolic 107–136; BP diastolic 68–89
[2023-01-10] MEDS: ENOXAPARIN 80 MG/0.8 ML SYRINGE SC SCH ×2 (02:16→16:01)
[2023-01-10] MEDS: fentaNYL INJECTION 100 MCG/2 ML VIAL IVP PRN ×6 (02:19→21:04)
[2023-01-10] MEDS: RT-Ipratropium/Albuterol NEB 3 ML VIAL INH SCH ×4 (03:15→21:00)
[2023-01-10 03:54] LABS: BASOPHILS % (AUTO) 0 % (0-10); EOSINOPHILS # (AUTO) 0.1 10^3/uL (0.0-0.3); EOSINOPHILS % (AUTO) 1 % (0-10); HEMATOCRIT 30 % (40-54); HEMOGLOBIN 9.7 g/dL (13.3-17.7); LYMPHOCYTES # (AUTO) 1.5 10^3/uL (1.0-4.0); LYMPHOCYTES % (AUTO) 17 % (12-44); MEAN CORPUSCULAR HEMOGLOBIN 34 pg (25-34); MEAN CORPUSCULAR HGB CONC 33 g/dL (32-36); MEAN CORPUSCULAR VOLUME 104 fL (80-99); MEAN PLATELET VOLUME 11.1 fL (9.0-12.2); MONOCYTES # (AUTO) 0.8 10^3/uL (0.0-1.0); MONOCYTES % (AUTO) 9 % (0-12); NEUTROPHILS # (AUTO) 6.1 10^3/uL (1.8-7.8); NEUTROPHILS % (AUTO) 71 % (42-75); PLATELET COUNT 229 10^3/uL (130-400); WHITE BLOOD COUNT 8.6 10^3/uL (4.3-11.0)
[2023-01-10 04:11] LABS: ALBUMIN 2.7 GM/DL (3.2-4.5); BILIRUBIN,TOTAL 0.7 MG/DL (0.1-1.0); CALCIUM 8.6 MG/DL (8.5-10.1); CREATININE SERUM 0.83 MG/DL (0.60-1.30); MAGNESIUM 1.9 MG/DL (1.6-2.4); PHOSPHORUS 4.1 MG/DL (2.3-4.7); TOTAL PROTEIN 6.4 GM/DL (6.4-8.2)
[2023-01-10] MEDS: MAGNESIUM 1 GM/100 ML IVPB 100 ML IV SCH ×3 (04:21→05:47)
[2023-01-10] MEDS: POTASSIUM CL 10MEQ/50ML IVPB 50 ML IV SCH (04:21)
[2023-01-10] MEDS: POTASSIUM CHLORIDE 20 MEQ TABLET PO SCH (04:21)
[2023-01-10] MEDS: meTOprolol INJECTION 5 MG/5 ML VIAL IV SCH ×4 (04:34→21:04)
--- NOTE | 2023-01-10 06:34 | Progress Note - Hospitalist ---
Subjective HPI/CC On Admission Date Seen by Provider: Jan 10, 2023 Time Seen by Provider: 11:00 67 yo male admitted after coming to ER with abdominal pain and having CT that showed large free air in abdomen. He underwent exploratory laparoscopy and found to have gastric perforation and partial gastrectomy was done last night. This morning he is still intubated, is alert but unable to give history due to ventilator status. Subjective/Events-last exam Patient doing a lot better Small bowel follow-through currently Labs reviewed No pain reported Objective Exam Vital Signs Vital Signs Date Time Temp Pulse Resp B/P (MAP) Pulse Ox O2 Delivery O2 Flow Rate FiO2 01/10/23 08:00 95 High Flow N/C 1.00 01/10/23 07:51 36.7 92 26 136/75 (95) 01/07/23 08:00 30 Capillary Refill : Less Than 3 Seconds General Appearance: No Apparent Distress, WD/WN, Chronically ill Respiratory: Lungs Clear Cardiovascular: Regular Rate, Rhythm Results/Procedures Lab Laboratory Tests 01/10/23 03:45 Patient resulted labs reviewed. Assessment/Plan Assessment and Plan Assess & Plan/Chief Complaint Assessment: Acute hypoxic respiratory failure Currently requiring BIPAP GI bleed Exploratory laparotomy Postop ileus Ventilator associated pneumonia Alcohol withdrawal Atrial fibrillation with RVR Plan: Cardiac stepdown unit Supportive care PT and OT [facility] BiPAP prn Critical Care Critically Ill Patient STAR KUMARI DO Jan 10, 2023 06:34
[2023-01-10] MEDS: PANTOPRAZOLE INJECTION 40 MG VIAL IV SCH ×2 (09:00→21:05)
[2023-01-10] MEDS: EMPAGLIFLOZIN 10 MG TABLET PO SCH (09:00)
[2023-01-10] MEDS ORDERED: DIATRIZOATE MEGLUM/SODIUM 37% 120 ML (GASTROGRAFIN) PO ONE (09:45)
--- NOTE | 2023-01-10 09:55 | Progress Note - Surgery ---
NEMESIO HODGSON 01/10/23 0955: Subjective Date Seen by a Provider: Jan 10, 2023 Time Seen by a Provider: 08:30 Subjective/Events-last exam Pt is laying in bed with right sided rib pain. Abdomen is distended more than yesterday morning. Has been NPO since yesterday and was taken for small bowel follow this morning around 0930. Pt is confused about what the treatment plan is and why he was put NPO. Pt states that pain is not controlled and is having a harder time breathing due to right sided rib pain. Review of Systems General: No Chills, No Night Sweats HEENT: No Head Aches, No Visual Changes Pulmonary: No Dyspnea; Cough Cardiovascular: No: Chest Pain, Palpitations Gastrointestinal: No: Nausea, Vomiting, Abdominal Pain Genitourinary: No Dysuria, No Hematuria Musculoskeletal: No: neck pain, shoulder pain Neurological: No: Numbness, Change in speech Objective Exam Vital Signs Date Time Temp Pulse Resp B/P (MAP) Pulse Ox O2 Delivery O2 Flow Rate FiO2 01/10/23 08:00 95 High Flow N/C 1.00 01/10/23 07:51 36.7 92 26 136/75 (95) 96 Nasal Cannula 1.00 01/10/23 07:00 88 01/10/23 04:00 133/89 (102) Nasal Cannula 1.00 01/10/23 03:00 101 15 96 Nasal Cannula 1.00 01/10/23 02:00 104 23 89 Nasal Cannula 1.00 01/10/23 01:03 95 01/10/23 01:00 105 22 85 Nasal Cannula 1.00 01/10/23 00:00 126/89 (103) Nasal Cannula 01/09/23 23:35 37.2 95 21 140/90 (103) 95 Nasal Cannula 01/09/23 23:00 87 20 97 Nasal Cannula 01/09/23 22:00 88 19 95 Nasal Cannula 01/09/23 21:04 95 Nasal Cannula 1.00 01/09/23 21:00 82 17 95 Nasal Cannula 01/09/23 20:35 95 High Flow N/C 1.00 01/09/23 20:26 89 23 134/84 (103) 94 Nasal Cannula 1.00 01/09/23 20:00 95 27 93 Nasal Cannula 1.00 01/09/23 19:45 36.6 86 20 111/86 (94) 90 1.00 01/09/23 19:00 80 01/09/23 16:31 36.7 95 20 108/75 (86) 98 Nasal Cannula 1.00 01/09/23 15:06 95 Nasal Cannula 1.00 01/09/23 12:24 78 01/09/23 12:15 36.4 80 15 130/86 (101) 94 High Flow N/C 1.00 I & O 01/10/23 06:59 Intake Total 1000 ml Output Total 2250 ml Balance -1250 ml Capillary Refill : Less Than 3 Seconds General Appearance: No Apparent Distress, WD/WN, Chronically ill HEENT: PERRL/EOMI, Normal ENT Inspection Neck: Non Tender, Supple Respiratory: Lungs Clear, Normal Breath Sounds Cardiovascular: No Edema, Irregularly Irregular Peripheral Pulses: 2+ Dorsalis Pedis (R), 2+ Left Dors-Pedis (L), 2+ Radial Pulses (R), 2+ Radial Pulses (L) Gastrointestinal: distended, tenderness (minimal midline, incision c/d/i) Extremity: Non Tender, No Calf Tenderness Neurologic/Psychiatric: Alert, Oriented x3 Skin: Normal Color, Warm/Dry Lymphatic: No Adenopathy Results Lab Laboratory Tests 01/09/23 23:27: Glucometer 136H 01/10/23 03:45: White Blood Count 8.6, Red Blood Count 2.87L, Hemoglobin 9.7L, Hematocrit 30L, Mean Corpuscular Volume 104H, Mean Corpuscular Hemoglobin 34, Mean Corpuscular Hemoglobin Concent 33, Red Cell Distribution Width 14.7H, Platelet Count 229, Mean Platelet Volume 11.1, Immature Granulocyte % (Auto) 1, Neutrophils (%) (Auto) 71, Lymphocytes (%) (Auto) 17, Monocytes (%) (Auto) 9, Eosinophils (%) (Auto) 1, Basophils (%) (Auto) 0, Neutrophils # (Auto) 6.1, Lymphocytes # (Auto) 1.5, Monocytes # (Auto) 0.8, Eosinophils # (Auto) 0.1, Basophils # (Auto) 0.0, Immature Granulocyte # (Auto) 0.0, Sodium Level 142, Potassium Level 4.0, Chloride Level 107, Carbon Dioxide Level 27, Anion Gap 8, Blood Urea Nitrogen 20H, Creatinine 0.83, Estimat Glomerular Filtration Rate 96, BUN/Creatinine Rati o 24, Glucose Level 98, Calcium Level 8.6, Corrected Calcium 9.6, Phosphorus Level 4.1, Magnesium Level 1.9, Total Bilirubin 0.7, Aspartate Amino Transf (AST/SGOT) 25, Alanine Aminotransferase (ALT/SGPT) 26, Alkaline Phosphatase 122, Total Protein 6.4, Albumin 2.7L Microbiology 12/26/22 Gram Stain - Final, Complete 12/26/22 Sputum Culture - Final, Complete Klebsiella pneumoniae Assessment/Plan Assessment/Plan Assessment/Plan S/P Ex lap with partial gastric resection S/P Respiratory Arrest Gastric/abdominal Distention Ileus Afib Currently using NC- O2 sats are above 90% Monitor blood pressure- stable abdomen is distended, has bowel function- Small bowel follow through today Clear liquids today after small bowel follow through Incentive spirometer Lovenox Continue discussions with family about jail care Will still need colonoscopy due to thickening of the sigmoid, which he did have planned but due to condition will need to hold off at this time. Inpatient rehab consult BRYON DAVIS DO 01/11/231822: Subjective Subjective/Events-last exam Abdomen distended. NPO currently. Having small bowel follow through done. Having pain in abdomen, but controlled. Denies n/v fever sweats chills shortness fo breath or chest pain, except some rib pain. Objective Exam General Appearance: No Apparent Distress, Chronically ill HEENT: PERRL/EOMI, Normal ENT Inspection Neck: Non Tender, Supple Respiratory: Chest Non Tender, No Accessory Muscle Use, No Respiratory Distress Cardiovascular: No JVD, Irregularly Irregular Gastrointestinal: soft, distended, tenderness (minimal midline, incision c/d/i) Extremity: Non Tender, No Calf Tenderness Neurologic/Psychiatric: Alert, Oriented x3 Skin: Normal Color, Warm/Dry Lymphatic: No Adenopathy Assessment/Plan Assessment/Plan Assessment/Plan S/P Ex lap with partial gastric resection S/P Respiratory Arrest Gastric/abdominal Distention Ileus Afib Left 2-5 rib fxs Ileus- postoperative Currently using NC- O2 sats are above 90% Monitor blood pressure- stable abdomen is distended, has bowel function- Small bowel follow through today Clear liquids today after small bowel follow through Incentive spirometer Lovenox Continue discussions with family about terminal makeup operator care Will still need colonoscopy due to thickening of the sigmoid, which he did have planned but due to condition will need to hold off at this time. Inpatient rehab consult Supervisory-Addendum Brief Verification & Attestation Participated in pt care: history, MDM, physical Personally performed: exam, history, MDM, supervision of care Care discussed with: Medical Student Procedures: n/a Results interpretation: Verified all documentation Verification and Attestation of Medical Student E/M Service A medical student performed and documented this service in my presence. I reviewed and verified all information documented by the medical student and made modifications to such information, when appropriate. I personally performed the physical exam and medical decision making. Bryon Davis, Jan 10, 2023,17:13 NEMESIO HODGSON Jan 10, 2023 09:55 BRYON DAVIS DO Jan 11, 2023 18:23
[2023-01-10] MEDS: ONDANSETRON INJECTION 4 MG/2 ML (SDV) IVP PRN (13:00)
[2023-01-10] MEDS: LACTATED RINGERS 1,000 ML 1,000 ML IV SCH (16:00)
--- NOTE | 2023-01-10 17:04 | Diagnostic Imaging Report ---
EXAM: Small bowel study only. INDICATION: Abdominal pain. COMPARISON: Abdominal radiograph 01/09/2023. FINDINGS: A series of 11 radiographs were acquired over the course of 7 hours. Normal caliber small bowel. Contrast traverses the small bowel, reaching the cecum at 7 hours. Gaseously distended colon. No evidence of obstruction. Anterior skin delbert. Aortobiiliac stent graft. IMPRESSION: Delayed transit of contrast through a normal caliber small bowel, reaching the gaseously distended colon within 7 hours. Dictated by: Dictated on workstation # [id number]
[2023-01-10] MEDS: SODIUM ACETATE IV SCH ×10 (17:39)
[2023-01-10] MEDS: [UNRECOGNIZED DRUG - OTHER] IV SCH ×10 (17:39)
[2023-01-10] MEDS: SODIUM PHOSPHATE IV SCH ×10 (17:39)
[2023-01-10] MEDS: POTASSIUM CHLORIDE IV SCH ×10 (17:39)
[2023-01-10] MEDS: MELATONIN 3 MG TABLET PO SCH (21:04)
[2023-01-11] VITALS (8 sets, daily range): BP systolic 103–145; BP diastolic 69–80
[2023-01-11] MEDS: ENOXAPARIN 80 MG/0.8 ML SYRINGE SC SCH ×2 (02:33→15:08)
[2023-01-11] MEDS: RT-Ipratropium/Albuterol NEB 3 ML VIAL INH SCH ×4 (03:09→21:56)
[2023-01-11] MEDS: meTOprolol INJECTION 5 MG/5 ML VIAL IV SCH ×4 (03:33→21:44)
[2023-01-11] MEDS: fentaNYL INJECTION 100 MCG/2 ML VIAL IVP PRN ×4 (03:45→20:11)
[2023-01-11 05:38] LABS: BASOPHILS % (AUTO) 0 % (0-10); EOSINOPHILS # (AUTO) 0.1 10^3/uL (0.0-0.3); EOSINOPHILS % (AUTO) 1 % (0-10); HEMATOCRIT 29 % (40-54); HEMOGLOBIN 9.5 g/dL (13.3-17.7); LYMPHOCYTES # (AUTO) 1.4 10^3/uL (1.0-4.0); LYMPHOCYTES % (AUTO) 15 % (12-44); MEAN CORPUSCULAR HEMOGLOBIN 34 pg (25-34); MEAN CORPUSCULAR HGB CONC 33 g/dL (32-36); MEAN CORPUSCULAR VOLUME 105 fL (80-99); MONOCYTES # (AUTO) 0.8 10^3/uL (0.0-1.0); MONOCYTES % (AUTO) 8 % (0-12); NEUTROPHILS # (AUTO) 7.1 10^3/uL (1.8-7.8); NEUTROPHILS % (AUTO) 75 % (42-75); PLATELET COUNT 241 10^3/uL (130-400); WHITE BLOOD COUNT 9.5 10^3/uL (4.3-11.0)
[2023-01-11 05:58] LABS: ALBUMIN 2.7 GM/DL (3.2-4.5); BILIRUBIN,TOTAL 0.6 MG/DL (0.1-1.0); CALCIUM 8.5 MG/DL (8.5-10.1); CREATININE SERUM 0.79 MG/DL (0.60-1.30); POTASSIUM 3.8 MMOL/L (3.6-5.0); TOTAL PROTEIN 6.4 GM/DL (6.4-8.2)
[2023-01-11] MEDS: POTASSIUM CHLORIDE 20 MEQ TABLET PO SCH (06:02)
[2023-01-11] MEDS: MAGNESIUM 1 GM/100 ML IVPB 100 ML IV SCH (06:02)
[2023-01-11] MEDS: POTASSIUM CL 10MEQ/50ML IVPB 50 ML IV SCH ×3 (06:02→08:22)
[2023-01-11] MEDS ORDERED: POTASSIUM CL 10MEQ/50ML IVPB 50 ML IV ONE (06:15)
--- NOTE | 2023-01-11 07:03 | Progress Note - Hospitalist ---
Subjective HPI/CC On Admission Date Seen by Provider: Jan 11, 2023 Time Seen by Provider: 09:00 67 yo male admitted after coming to ER with abdominal pain and having CT that showed large free air in abdomen. He underwent exploratory laparoscopy and found to have gastric perforation and partial gastrectomy was done last night. This morning he is still intubated, is alert but unable to give history due to ventilator status. Subjective/Events-last exam Patient doing well Moving around really well [facility] Will strive to get him home at me Review of Systems General: Fatigue, Malaise Objective Exam Vital Signs Vital Signs Date Time Temp Pulse Resp B/P (MAP) Pulse Ox O2 Delivery O2 Flow Rate FiO2 01/11/23 20:08 High Flow N/C 2.00 01/11/23 20:01 37.1 96 20 131/80 (97) 97 01/07/23 08:00 30 Capillary Refill : Less Than 3 Seconds General Appearance: No Apparent Distress, WD/WN, Chronically ill Respiratory: Lungs Clear, Normal Breath Sounds Cardiovascular: Regular Rate, Rhythm Neurologic/Psychiatric: Alert, Oriented x3 Results/Procedures Lab Laboratory Tests 01/11/23 05:22 Patient resulted labs reviewed. Assessment/Plan Assessment and Plan Assess & Plan/Chief Complaint Assessment: Acute hypoxic respiratory failure Currently requiring BIPAP GI bleed Exploratory laparotomy Postop ileus Ventilator associated pneumonia Alcohol withdrawal Atrial fibrillation with RVR Plan: Cardiac stepdown unit Supportive care PT and OT [facility] Declined BiPAP prn Critical Care Critically Ill Patient STAR KUMARI DO Jan 11, 2023 07:03
[2023-01-11] MEDS: EMPAGLIFLOZIN 10 MG TABLET PO SCH (08:21)
[2023-01-11] MEDS: PANTOPRAZOLE INJECTION 40 MG VIAL IV SCH ×2 (08:21→20:04)
--- NOTE | 2023-01-11 10:44 | Cardiology Progress Note ---
Subjective Date Seen by Provider: Jan 11, 2023 Time Seen by Provider: 08:55 Subjective/Events-last exam Patient sitting up in chair, denies any chest pain Objective-Cardiology Exam Last Set of Vital Signs Vital Signs 01/07/23 01/11/23 01/11/23 08:00 08:00 09:43 Temp 36.7 Pulse 77 Resp 20 B/P (MAP) 140/79 (99) Pulse Ox 98 O2 Delivery Nasal Cannula O2 Flow Rate 2.00 FiO2 30 I&O Intake and Output 01/10/23 23:59 Intake Total 150 ml Output Total 1775 ml Balance -1625 ml Intake Oral 50 ml IV Total 100 ml Output Urine Total 1775 ml # Bowel Movements 1 General: Alert, Oriented X3 HEENT: Atraumatic, EOMI Neck: Supple, No Thyromegaly Lungs: Clear to Auscultation, Normal Air Movement Heart: Other (Tachycardic, irregularly irregular) Abdomen: Normal Bowel Sounds, Soft, No Tenderness, Other (Midline incision with delbert) Extremities: No Edema Skin: No Rashes, No Significant Lesion Neuro: Normal Speech Psych/Mental Status: Mental Status NL Results Lab Laboratory Tests 01/11/23 05:22 A/P-Cardiology Admission Diagnosis Acute abdomen Acute respiratory failure Coronary artery disease Permanent atrial fibrillation Dilated cardiomyopathy Assessment/Plan Permanent atrial fibrillation, rate controlled. Continue to monitor. Status post cardiac arrest: Has been stable. Continue to monitor Status post acute abdomen, gastric perforation, status post exploratory laparotomy done on December 21, 2022 Improving Managed by surgical team. Continue to monitor Coronary artery disease, history of stenting Patient was scheduled for [facility] on December 23, 2022 as outpatient. On hold for now. COPD, using oxygen at night, had a complex hospitalization with Legionella pneumonia and CMV, respiratory failure, multiple cardiac arrest in October 2017. loculated pneumonia underwent right lung decortication on January 28, 2018 resulted in hydropneumothorax and marked emphysema and had prolonged chest tube placement. History of congestive heart failure, chronic left ventricular systolic dysfunction, maintained on Heavy alcoholism, managed by primary care physician Abdominal aortic aneurysm, had a stent placed by Dr. Hogue done in June 2021. Hypertension, blood pressure controlled, continue to monitor. Hyperlipidemia, continue to monitor lipids Tobaccoism Supervisory-Addendum Brief Supervisory Addendum Participated in pt care: history, MDM, physical Personally performed: exam, history, MDM Care discussed with: SILAS Results interpretation: Verified all documentation Notes: Patient was seen and evaluated with Ann, examination performed, management plan was discussed, agree with the current scribed note, I made few changes to the note using Italic font Patient was seen at bedside, sitting comfortably, still having mild abdominal di stention and discomfort, active bowel sounds Heart rate is better controlled Continue on current medication and monitor closely. ANN WEST PA-C Jan 11, 2023 10:44 AIDAN PASTOR MD Jan 11, 2023 11:51
--- NOTE | 2023-01-11 11:38 | Occupational Ther Daily Note ---
OT Current Status-Daily Note Subjective Patient agreed to participate w/ OT following medication and scheduled tme. Mental Status/Objective Patient Orientation: Person, Place, Time, Situation Attachments: IV, Oxygen, Telemetry ADL-Treatment Performs LB garment in bed w/ Bridging technique, spouse brought electric shaver and will assist when she returns, oral care set up for patient, Patient declined w/ OT Therapy Code Descriptions/Definitions Functional Garden Measure: 0=Not Assessed/NA 4=Minimal Assistance 1=Total Assistance 5=Supervision or Setup 2=Maximal Assistance 6=Modified Garden 3=Moderate Assistance 7=Complete IndependenceSCALE: Activities may be completed with or without assistive devices. 5-Wvvmykruho-iomsuku completes the activity by him/herself with no assistance from a helper. 5-Set-up or Clean-up Assistance-helper sets up or cleans up; patient completes activity. [place] assists only prior to or following the activity. 4-Supervision or Touching Assistance-helper provides verbal cues and/or touching/steadying and/or contact guard assistance as patient completes activity. Assistance may be provided throughout the activity or intermittently. 3-Partial/Moderate Assistance-helper does LESS THAN HALF the effort. [place] lifts, holds or supports trunk or limbs, but provides less than half the effort. 2-Substantial/Maximal Assistance-helper does MORE THAN HALF the effort. [place] lifts or holds trunk or limbs and provides more than half the effort. 2-Tqxubprjl-wxcvwm does ALL the effort. Patient does none of the effort to complete the activity. Or, the assistance of 2 or more helpers is required for the patient to complete the activity. If activity was not attempted, code reason: 7-Patient Refused. 9-Not Applicable-not attempted and the patient did not perform the activity before the current illness, exacerbation or injury. 10-Not Attempted due to Environmental Limitations-(lack of equipment, weather restraints, etc.). 88-Not Attempted due to Medical Conditions or Safety Concerns. Eating (QC): 88 (NPO) Oral Hygiene (QC): 7 Upper Body Dressing (QC): 4 (d/t lines) Lower Body Dressing (QC): 5 On/Off Footwear: 5 Toileting Hygiene (QC): 4 Toilet Transfer (QC): 4 Other Treatment BUE arm exercises, arm/chair push ups 10 x3, verbal, demo and written on board Education OT Patient Education: Correct positioning, Exercise program, Modified ADL techniques, Progress toward Goal/Update tx plan, Reviewed precautions, Rehab process, Safety issues, Transfer techniques Teaching Recipient: Patient Response to Teaching: Verbalize Understanding, Return Demonstration, Reinforcement Needed OT Residential Goals Residential Goals Eating (QC): 6 Oral Hygiene (QC): 5 Toileting Hygiene (QC): 4 Shower/Bathe Self (QC): 4 Upper Body Dressing (QC): 4 Lower Body Dressing (QC): 4 On/Off Footwear (QC): 4 1=Demonstrate adherence to instructed precautions during ADL tasks. 2=Patient will verbalize/demonstrate understanding of assistive devices/modifications for ADL. 3=Patient will improve strength/tolerance for activity to enable patient to perform ADL's. OT Education/Plan Problem List/Assessment Assessment: Decreased Activ Tolerance, Decreased UE Strength, Impaired Self- Care Skills Discharge Recommendations Plan/Recommendations: Continue POC Treatment Plan/Plan of Care Treatment,Training & Education: Yes Patient would benefit from OT for education, treatment and training to promote independence in ADL's, mobility, safety and/or upper extremity function for ADL's. Plan of Care: ADL Retraining, Functional Mobility, Group Exercise/Act as Ind, UE Funct Exercise/Act Treatment Duration: Jan 08, 2023 Frequency: 3 times per week (3-5 times per week) Estimated Hrs Per Day: .25 hour per day Agreement: Yes Rehab Potential: Fair Time Start Time: 10:40 Stop Time: 10:55 DATE: Jan 11, 2023 Total Time Billed (hr/min): 15 Billed Treatment Time ADL 15 min SARAH CARTAGENA OT Jan 11, 2023 11:38
--- NOTE | 2023-01-11 11:43 | Physical Therapy Daily Note ---
PT Daily Note-Current Subjective Patient agrees to PT. Voices frustration with not being able to eat. Pain Section J - Health Conditions 1. Rarely or not at all 2. Occasionally 3. Frequently 4. Almost constantly 8. Unable to answer Pain Effect on Sleep: 1 Pain Interference with Therapy: 1 Pain Interference w/Day-to-Day: 1 Transfers SCALE: Activities may be completed with or without assistive devices. 7-Fqawziacxf-cjudzpc completes the activity by him/herself with no assistance fr om a helper. 5-Set-up or Clean-up Assistance-helper sets up or cleans up; patient completes activity. [place] assists only prior to or following the activity. 4-Supervision or Touching Assistance-helper provides verbal cues and/or touching/steadying and/or contact guard assistance as patient completes activity. Assistance may be provided throughout the activity or intermittently. 3-Partial/Moderate Assistance-helper does LESS THAN HALF the effort. [place] lifts, holds or supports trunk or limbs, but provides less than half the effort. 2-Substantial/Maximal Assistance-helper does MORE THAN HALF the effort. [place] lifts or holds trunk or limbs and provides more than half the effort. 0-Obdgjwsle-scsppz does ALL the effort. Patient does none of the effort to complete the activity. Or, the assistance of 2 or more helpers is required for the patient to complete the activity. If activity was not attempted, code reason: 7-Patient Refused. 9-Not Applicable-not attempted and the patient did not perform the activity before the current illness, exacerbation or injury. 10-Not Attempted due to Environmental Limitations-(lack of equipment, weather restraints, etc.). 88-Not Attempted due to Medical Conditions or Safety Concerns. Lying to Sitting/Side of Bed(Q: 5 Sit to Stand (QC): 5 Chair/Pck-ki-Cuovd Xfer(QC): 5 Gait Training Distance: 10' Walk 10 feet (QC): 5 Gait Assistive Device: FWW Exercises Standing: Marching Standing Reps: 20 (3 sets) Assessment Patient is modified independent with all mobility and is up in recliner with needs met. Patient instructed to perform standing to FWW and marching PRN during day to improve pulmonary function and increase mobility. Patient voices understanding. RN notified. PT Hr Payroll Coordinator Goals Hr Payroll Coordinator Goals PT Hr Payroll Coordinator Goals Time Frame: Jan 30, 2023 Roll Left & Right (QC): 6 Sit to Lying (QC): 6 Lying-Sitting on Side/Bed(QC): 6 Sit to Stand (QC): 6 Chair/Lhj-of-Xkpaj Xfer(QC): 6 Toilet Transfer (QC): 6 Walk 10 feet (QC): 6 Walk 50ft with 2 Turns (QC): 6 Walk 150 ft (QC): 6 PT Plan Treatment/Plan Treatment Plan: Continue Plan of Care Treatment Plan: Bed Mobility, Education, Functional Activity Renée, Functional Strength, Gait, Safety, Therapeutic Exercise, Transfers Treatment Duration: Jan 30, 2023 Frequency: 5 times per week Estimated Hrs Per Day: .25 hour per day Patient and/or Family Agrees t: Yes Time Time In: 1055 Time Out: 1110 DATE: Jan 11, 2023 Total Billed Treatment Time: 15 Total Billed Treatment 1 visit FA 15 min TOMMY WHITT PT Jan 11, 2023 11:43
--- NOTE | 2023-01-11 15:00 | Progress Note - Surgery ---
NEMESIO HODGSON 01/11/23 1500: Subjective Date Seen by a Provider: Jan 11, 2023 Time Seen by a Provider: 11:35 Subjective/Events-last exam Pt is up in his chair. Stated that he didn't use bipap last night and was on NC all night. Breathing is better. Abdomen is distended. Patient had BM yesterday and today with lots of gas per RN. Still having right rib pain. Review of Systems General: No Chills, No Night Sweats HEENT: No Head Aches, No Visual Changes Pulmonary: No Dyspnea; Cough Cardiovascular: No: Chest Pain, Palpitations Gastrointestinal: No: Nausea, Vomiting Genitourinary: No Dysuria, No Frequency Musculoskeletal: No: neck pain, shoulder pain Neurological: No: Numbness, Confusion Objective Exam Vital Signs Date Time Temp Pulse Resp B/P (MAP) Pulse Ox O2 Delivery O2 Flow Rate FiO2 01/11/23 12:10 73 01/11/23 12:00 36.3 63 17 113/72 (86) 96 Nasal Cannula 3.00 01/11/23 09:43 98 Nasal Cannula 2.00 01/11/23 08:57 96 High Flow N/C 3.00 01/11/23 08:00 36.7 77 20 140/79 (99) 99 Nasal Cannula 3.00 01/11/23 07:15 89 01/11/23 04:00 89 14 103/69 (80) 97 High Flow N/C 3.00 01/11/23 03:09 100 Nasal Cannula 3.00 01/11/23 01:01 36.5 01/11/23 01:00 103 01/11/23 00:00 87 19 145/80 (101) 100 High Flow N/C 3.00 01/10/23 21:01 96 Nasal Cannula 3.00 01/10/23 20:12 36.8 78 16 120/71 (87) 99 High Flow N/C 3.00 01/10/23 20:00 95 High Flow N/C 1.00 01/10/23 19:00 99 01/10/23 16:03 37.1 73 20 107/68 (81) 98 High Flow N/C 3.00 I & O 01/11/23 06:59 Intake Total 0 ml Output Total 1625 ml Balance -1625 ml Capillary Refill : Less Than 3 Seconds General Appearance: No Apparent Distress, WD/WN, Chronically ill HEENT: PERRL/EOMI, Pharynx Normal Neck: Non Tender, Supple Respiratory: Lungs Clear, Normal Breath Sounds, No Accessory Muscle Use Cardiovascular: No Edema, Irregularly Irregular Peripheral Pulses: 2+ Dorsalis Pedis (R), 2+ Left Dors-Pedis (L), 2+ Radial Pulses (R), 2+ Radial Pulses (L) Gastrointestinal: non tender, soft, distended, tenderness (minimal midline, incision c/d/i) Extremity: Non Tender, No Calf Tenderness Neurologic/Psychiatric: Alert, Oriented x3, Normal Mood/Affect Skin: Normal Color, Warm/Dry Lymphatic: No Adenopathy Results Lab Laboratory Tests 01/10/23 17:25: Glucometer 115H 01/11/23 00:22: Glucometer 109 01/11/23 05:22: White Blood Count 9.5, Red Blood Count 2.77L, Hemoglobin 9.5L, Hematocrit 29L, Mean Corpuscular Volume 105H, Mean Corpuscular Hemoglobin 34, Mean Corpuscular Hemoglobin Concent 33, Red Cell Distribution Width 14.6H, Platelet Count 241, Mean Platelet Volume 11.0, Immature Granulocyte % (Auto) 0, Neutrophils (%) (Auto) 75, Lymphocytes (%) (Auto) 15, Monocytes (%) (Auto) 8, Eosinophils (%) (Auto) 1, Basophils (%) (Auto) 0, Neutrophils # (Auto) 7.1, Lymphocytes # (Auto) 1.4, Monocytes # (Auto) 0.8, Eosinophils # (Auto) 0.1, Basophils # (Auto) 0.0, Immature Granulocyte # (Auto) 0.0, Sodium Level 142, Potassium Level 3.8, Chloride Level 108H, Carbon Dioxide Level 28, Anion Gap 6, Blood Urea Nitrogen 20H, Creatinine 0.79, Estimat Glomerular Filtration Rate 97, BUN/Creatinine Rat io 25, Glucose Level 113H, Calcium Level 8.5, Corrected Calcium 9.5, Total Bilirubin 0.6, Aspartate Amino Transf (AST/SGOT) 24, Alanine Aminotransferase (ALT/SGPT) 23, Alkaline Phosphatase 126, Total Protein 6.4, Albumin 2.7L Microbiology 12/26/22 Gram Stain - Final, Complete 12/26/22 Sputum Culture - Final, Complete Klebsiella pneumoniae Assessment/Plan Assessment/Plan Assessment/Plan S/P Ex lap with partial gastric resection S/P Respiratory Arrest Gastric/abdominal Distention Ileus Afib No BIPAP use last night, NC only- O2 sats are above 90% Monitor blood pressure- stable abdomen is distended, has bowel function- Small bowel follow through today Start Clear liquids Small bowel follow through- Contrast Transit time of 7hrs with normal small bowel caliber and gaseous distension of colon Incentive spirometer Lovenox Continue discussions with family about roasterman care Will still need colonoscopy due to thickening of the sigmoid, which he did have planned but due to condition will need to hold off at this time. Inpatient rehab consult BRYON DAVIS DO 01/11/23 1830: Subjective Subjective/Events-last exam Having bowel function with passing stool and flatus. Abdomen still distended. Complains of rib pain still. Using pain medication which helps. Had small bowel follow through: Delayed transit of contrast through a normal caliber small bowel, reaching the gaseously distended colon within 7 hours. NPO currently and TPN. Objective Exam General Appearance: No Apparent Distress, Chronically ill HEENT: PERRL/EOMI, Normal ENT Inspection Neck: Non Tender, Supple Respiratory: Chest Non Tender, No Accessory Muscle Use, No Respiratory Distress Cardiovascular: No JVD, Irregularly Irregular Gastrointestinal: distended, tenderness (minimal midline, incision c/d/i) Extremity: Non Tender, No Calf Tenderness Neurologic/Psychiatric: Alert, Oriented x3, Normal Mood/Affect Skin: Normal Color, Warm/Dry Lymphatic: No Adenopathy Assessment/Plan Assessment/Plan Assessment/Plan S/P Ex lap with partial gastric resection S/P Respiratory Arrest Gastric/abdominal Distention Ileus Afib Left rib fxs 2-5 Postoperative ileus No BIPAP use last night, NC only- O2 sats are above 90% Monitor blood pressure- stable abdomen is distended, has bowel function feel related to ileus. Discussed increasing activity and limiting narcotics Start Clear liquids Small bowel follow through- Contrast Transit time of 7hrs with normal small bowel caliber and gaseous distension of colon Incentive spirometer Lovenox Will still need colonoscopy due to thickening of the sigmoid, which he did have planned but due to condition will need to hold off at this time. Supervisory-Addendum Brief Verification & Attestation Participated in pt care: history, MDM, physical Personally performed: exam, history, MDM, supervision of care Care discussed with: Medical Student Procedures: n/a Results interpretation: Verified all documentation Verification and Attestation of Medical Student E/M Service A medical student performed and documented this service in my presence. I reviewed and verified all information documented by the medical student and made modifications to such information, when appropriate. I personally performed the physical exam and medical decision making. Bryon Davis, Jan 11, 2023,18:30 NEMESIO HODGSON Jan 11, 2023 15:00 BRYON DAVIS DO Jan 11, 2023 18:30
[2023-01-11] MEDS: LACTATED RINGERS 1,000 ML 1,000 ML IV SCH ×2 (17:27→21:44)
[2023-01-11] MEDS: [UNRECOGNIZED DRUG - OTHER] IV SCH ×10 (17:28)
[2023-01-11] MEDS: SODIUM PHOSPHATE IV SCH ×10 (17:28)
[2023-01-11] MEDS: POTASSIUM CHLORIDE IV SCH ×10 (17:28)
[2023-01-11] MEDS: SODIUM ACETATE IV SCH ×10 (17:28)
[2023-01-11] MEDS: MELATONIN 3 MG TABLET PO SCH (20:04)
[2023-01-11] MEDS: HYDROcodone/ACETAMINOPHEN 7.5 MG/325 MG TABLET PO PRN (21:47)
[2023-01-12] VITALS (8 sets, daily range): BP systolic 109–135; BP diastolic 56–87
[2023-01-12] MEDS: meTOprolol INJECTION 5 MG/5 ML VIAL IV SCH ×4 (03:11→21:16)
[2023-01-12] MEDS: ENOXAPARIN 80 MG/0.8 ML SYRINGE SC SCH ×2 (03:11→14:12)
[2023-01-12 05:44] LABS: BASOPHILS % (AUTO) 0 % (0-10); EOSINOPHILS # (AUTO) 0.1 10^3/uL (0.0-0.3); EOSINOPHILS % (AUTO) 2 % (0-10); HEMATOCRIT 29 % (40-54); HEMOGLOBIN 9.5 g/dL (13.3-17.7); LYMPHOCYTES # (AUTO) 1.2 10^3/uL (1.0-4.0); LYMPHOCYTES % (AUTO) 16 % (12-44); MEAN CORPUSCULAR HEMOGLOBIN 34 pg (25-34); MEAN CORPUSCULAR HGB CONC 32 g/dL (32-36); MEAN CORPUSCULAR VOLUME 105 fL (80-99); MONOCYTES # (AUTO) 0.7 10^3/uL (0.0-1.0); MONOCYTES % (AUTO) 9 % (0-12); NEUTROPHILS # (AUTO) 5.4 10^3/uL (1.8-7.8); NEUTROPHILS % (AUTO) 72 % (42-75); PLATELET COUNT 227 10^3/uL (130-400); WHITE BLOOD COUNT 7.4 10^3/uL (4.3-11.0)
[2023-01-12 05:56] LABS: ALBUMIN 2.7 GM/DL (3.2-4.5); BILIRUBIN,TOTAL 0.8 MG/DL (0.1-1.0); CALCIUM 8.5 MG/DL (8.5-10.1); CREATININE SERUM 0.8 MG/DL (0.60-1.30); POTASSIUM 3.9 MMOL/L (3.6-5.0); TOTAL PROTEIN 6.5 GM/DL (6.4-8.2)
[2023-01-12] MEDS: POTASSIUM CL 10MEQ/50ML IVPB 50 ML IV SCH (06:11)
[2023-01-12] MEDS: POTASSIUM CHLORIDE 20 MEQ TABLET PO SCH (06:11)
[2023-01-12] MEDS: MAGNESIUM 1 GM/100 ML IVPB 100 ML IV SCH ×3 (06:42→07:45)
[2023-01-12] MEDS: RT-Ipratropium/Albuterol NEB 3 ML VIAL INH SCH ×3 (06:48→22:06)
--- NOTE | 2023-01-12 07:15 | Progress Note - Surgery ---
NEMESIO HODGSON 01/12/23 0715: Subjective Date Seen by a Provider: Jan 12, 2023 Time Seen by a Provider: 06:15 Subjective/Events-last exam Pt is resting comfortably in bed with no pain currently. Used bipap last night. Had a BM this morning. Tolerating liquids w/o nausea or vomiting. Motivated to continue PT and OT. Abdomen is distended and soft. Voices understanding that pain medication is contributing to abdominal distension. No family at bedside Review of Systems General: No Chills, No Night Sweats HEENT: No Head Aches, No Visual Changes Pulmonary: No Dyspnea; Cough Cardiovascular: No: Chest Pain, Palpitations Gastrointestinal: No: Nausea, Vomiting Genitourinary: No Dysuria, No Hematuria Musculoskeletal: No: neck pain, shoulder pain Neurological: No: Weakness, Numbness Objective Exam Vital Signs Date Time Temp Pulse Resp B/P (MAP) Pulse Ox O2 Delivery O2 Flow Rate FiO2 01/12/23 06:48 92 22 100 30.00 01/12/23 04:00 79 25 131/77 (95) 100 NIV Bilevel 30.00 01/12/23 03:09 37.0 89 20 128/77 (94) 98 NIV Bilevel 01/12/23 02:28 93 22 99 30.00 01/12/23 01:00 74 01/12/23 00:00 88 26 116/64 (75) 100 NIV Bilevel 30.00 01/11/23 23:10 36.7 86 22 118/79 (92) 98 NIV Bilevel 01/11/23 21:57 81 22 98 30.00 01/11/23 20:08 High Flow N/C 2.00 01/11/23 20:01 37.1 96 20 131/80 (97) 97 High Flow N/C 2.00 01/11/23 19:00 91 01/11/23 17:19 37.0 78 18 124/78 (93) 96 High Flow N/C 2.00 01/11/23 16:00 37.0 78 18 124/78 (93) 96 High Flow N/C 2.00 01/11/23 12:10 73 01/11/23 12:00 36.3 63 17 113/72 (86) 96 Nasal Cannula 3.00 01/11/23 09:43 98 Nasal Cannula 2.00 01/11/23 08:57 96 High Flow N/C 3.00 01/11/23 08:00 36.7 77 20 140/79 (99) 99 Nasal Cannula 3.00 01/11/23 07:15 89 I & O 01/12/23 07:00 Intake Total 2456.9 ml Output Total 1600 ml Balance 856.9 ml Capillary Refill : Less Than 3 Seconds General Appearance: No Apparent Distress, WD/WN, Chronically ill HEENT: PERRL/EOMI, Normal ENT Inspection Neck: Non Tender, Supple Respiratory: Lungs Clear, Normal Breath Sounds Cardiovascular: Irregularly Irregular Peripheral Pulses: 2+ Dorsalis Pedis (R), 2+ Left Dors-Pedis (L), 2+ Radial Pulses (R), 2+ Radial Pulses (L) Gastrointestinal: soft, distended, tenderness (minimal midline, incision c/d/i) Extremity: Non Tender, No Calf Tenderness, No Pedal Edema Neurologic/Psychiatric: Alert, Oriented x3, Normal Mood/Affect Skin: Normal Color, Warm/Dry Lymphatic: No Adenopathy Results Lab Laboratory Tests 01/11/23 12:28: Glucometer 113H 01/11/23 21:42: Glucometer 131H 01/12/23 05:30: White Blood Count 7.4, Red Blood Count 2.78L, Hemoglobin 9.5L, Hematocrit 29L, Mean Corpuscular Volume 105H, Mean Corpuscular Hemoglobin 34, Mean Corpuscular Hemoglobin Concent 32, Red Cell Distribution Width 14.6H, Platelet Count 227, Mean Platelet Volume 11.0, Immature Granulocyte % (Auto) 0, Neutrophils (%) (Auto) 72, Lymphocytes (%) (Auto) 16, Monocytes (%) (Auto) 9, Eosinophils (%) (Auto) 2, Basophils (%) (Auto) 0, Neutrophils # (Auto) 5.4, Lymphocytes # (Auto) 1.2, Monocytes # (Auto) 0.7, Eosinophils # (Auto) 0.1, Basophils # (Auto) 0.0, Immature Granulocyte # (Auto) 0.0, Sodium Level 140, Potassium Level 3.9, Chloride Level 107, Carbon Dioxide Level 27, Anion Gap 6, Blood Urea Nitrogen 18, Creatinine 0.80, Estimat Glomerular Filtration Rate 97, BUN/Creatinine Ratio 23, Glucose Level 100, Calcium Level 8.5, Corrected Calcium 9.5, Total Bilirubin 0.8, Aspartate Amino Transf (AST/SGOT) 27, Alanine Aminotransferase (ALT/SGPT) 25, Alkaline Phosphatase 164H, Total Protein 6.5, Albumin 2.7L 01/12/23 06:08: Magnesium Level 1.9 Microbiology 12/26/22 Gram Stain - Final, Complete 12/26/22 Sputum Culture - Final, Complete Klebsiella pneumoniae Assessment/Plan Assessment/Plan Assessment/Plan S/P Ex lap with partial gastric resection S/P Respiratory Arrest Gastric/abdominal Distention Ileus Afib Left rib fxs 2-5 Postoperative ileus BIPAP use last flatwork tier blood pressure- stable abdomen is distended, has bowel function feel related to ileus. Discussed increasing activity and limiting narcotics Tolerating Clear liquids- continue Small bowel follow through- Contrast Transit time of 7hrs with normal small bowel caliber and gaseous distension of colon Incentive spirometer Lovenox Will still need colonoscopy due to thickening of the sigmoid, which he did have planned but due to condition will need to hold off at this time. Continue PT and OT CROW DAVIS DO 01/12/232027: Subjective Subjective/Events-last exam Patient laying in bed. Having flatus and bm. Wanting to go home. Tolerating diet. ABdomen maybe less distended. Feels breathing close to baseline. Ambulated halls. Rib pain. Denies n/v fever sweats chills or chest pain. Objective Exam General Appearance: No Apparent Distress, Chronically ill HEENT: PERRL/EOMI, Normal ENT Inspection Neck: Non Tender Respiratory: Chest Non Tender, No Accessory Muscle Use, No Respiratory Distress Cardiovascular: No JVD, Irregularly Irregular Gastrointestinal: distended (less), tenderness (minimal midline, incision c/d/i) Extremity: Non Tender, No Calf Tenderness Neurologic/Psychiatric: Alert, Oriented x3, Normal Mood/Affect Skin: Normal Color, Warm/Dry Lymphatic: No Adenopathy Assessment/Plan Assessment/Plan Assessment/Plan S/P Ex lap with partial gastric resection S/P Respiratory Arrest Gastric/abdominal Distention Ileus Afib Left rib fxs 2-5 Postoperative ileus Sacral decub BIPAP use last flatwork tier blood pressure- stable abdomen is distended, has bowel function feel related to ileus. Discussed increasing activity and limiting narcotics Tolerating Clear liquids- will advance diet Recent Small bowel follow through- Contrast Transit time of 7hrs with normal small bowel caliber and gaseous distension of colon Incentive spirometer Uyen Will still need colonoscopy due to thickening of the sigmoid, which he did have planned but due to condition will need to hold off at this time. Continue PT and OT Wound care Discussed with family and wish to go home. Working with social work to get home health set up. Refuses facility. Supervisory-Addendum Brief Verification & Attestation Participated in pt care: history, MDM, physical Personally performed: exam, history, MDM, supervision of care Care discussed with: Medical Student Procedures: n/a Results interpretation: Verified all documentation Verification and Attestation of Medical Student E/M Service A medical student performed and documented this service in my presence. I reviewed and verified all information documented by the medical student and made modifications to such information, when appropriate. I personally performed the physical exam and medical decision making. Crow Davis, Jan 12, 2023,20:28 NEMESIO HODGSON Jan 12, 2023 07:15 CROW DAVIS DO Jan 12, 2023 20:28
--- NOTE | 2023-01-12 08:09 | Cardiology Progress Note ---
Subjective Date Seen by Provider: Jan 12, 2023 Time Seen by Provider: 08:08 Subjective/Events-last exam Patient was seen at bedside, laying down comfortably Had a bowel movement today Still having distended abdomen Objective-Cardiology Exam Last Set of Vital Signs Vital Signs 01/07/23 01/12/23 08:00 08:00 Temp 36.9 Pulse 95 Resp 21 B/P (MAP) 132/84 (100) Pulse Ox 100 O2 Delivery NIV Bilevel O2 Flow Rate 30.00 FiO2 30 I&O Intake and Output 01/11/23 23:59 Intake Total 2256.9 ml Output Total 1550 ml Balance 706.9 ml Intake Oral 860 ml IV Total 1396.9 ml Output Urine Total 1550 ml # Bowel Movements 1 General: Alert, Oriented X3 HEENT: Atraumatic, EOMI Neck: Supple, No Thyromegaly Lungs: Clear to Auscultation, Normal Air Movement Heart: Normal S1, Normal S2, Other (Tachycardic, irregularly irregular) Abdomen: Normal Bowel Sounds, Soft, No Tenderness, Other (Midline incision with delbert) Extremities: No Edema Skin: No Rashes, No Significant Lesion Neuro: Normal Speech Psych/Mental Status: Mental Status NL Results Lab Laboratory Tests 01/12/23 05:30 A/P-Cardiology Admission Diagnosis Acute abdomen Acute respiratory failure Coronary artery disease Permanent atrial fibrillation Dilated cardiomyopathy Assessment/Plan Permanent atrial fibrillation, rate controlled. Continue to monitor. Status post cardiac arrest, most probably secondary to hypoxemia and respiratory failure. Has been stable. Continue to monitor Status post acute abdomen, gastric perforation, status post exploratory laparotomy done on December 21, 2022 Improving Managed by surgical team. Continue to monitor Coronary artery disease, history of stenting Patient was scheduled for [facility] on December 23, 2022 as outpatient. On hold for now. COPD, using oxygen at night, had a complex hospitalization with Legionella pneumonia and CMV, respiratory failure, multiple cardiac arrest in October 2017. loculated pneumonia underwent right lung decortication on January 28, 2018 resulted in hydropneumothorax and marked emphysema and had prolonged chest tube placement. History of congestive heart failure, chronic left ventricular systolic dysfunction, maintained on Heavy alcoholism, managed by primary care physician Abdominal aortic aneurysm, had a stent placed by Dr. Hogue done in June 2021. Hypertension, blood pressure controlled, continue to monitor. Hyperlipidemia, continue to monitor lipids Tobaccoism AIDAN PASTOR J MD Jan 12, 2023 08:09
--- NOTE | 2023-01-12 08:37 | Progress Note - Hospitalist ---
Subjective HPI/CC On Admission Date Seen by Provider: Jan 12, 2023 Time Seen by Provider: 12:00 67 yo male admitted after coming to ER with abdominal pain and having CT that showed large free air in abdomen. He underwent exploratory laparoscopy and found to have gastric perforation and partial gastrectomy was done last night. This morning he is still intubated, is alert but unable to give history due to ventilator status. Subjective/Events-last exam Patient about the same Still on TPN Patient really needs to be in a long-term care hospital but he refuses Conferred with Dr. Davis No pain Long-term prognosis is guarded Review of Systems General: Fatigue, Malaise Objective Exam Vital Signs Vital Signs Date Time Temp Pulse Resp B/P (MAP) Pulse Ox O2 Delivery O2 Flow Rate FiO2 01/13/23 04:00 92 17 98/80 (90) 100 NIV Bilevel 30.00 01/12/23 20:00 36.7 01/07/23 08:00 30 Capillary Refill : Less Than 3 Seconds General Appearance: No Apparent Distress, WD/WN, Chronically ill Respiratory: Lungs Clear, Normal Breath Sounds Cardiovascular: Regular Rate, Rhythm Neurologic/Psychiatric: Alert, Oriented x3 Results/Procedures Lab Laboratory Tests 01/12/23 05:30 01/13/23 04:04 Patient resulted labs reviewed. Assessment/Plan Assessment and Plan Assess & Plan/Chief Complaint Assessment: Acute hypoxic respiratory failure Currently requiring BIPAP as needed GI bleed Exploratory laparotomy Postop ileus Ventilator associated pneumonia Alcohol withdrawal Atrial fibrillation with RVR Plan: Cardiac stepdown unit Supportive care PT and OT [facility] Declined BiPAP prn Critical Care Critically Ill Patient STAR KUMARI DO Jan 12, 2023 08:37
[2023-01-12] MEDS: EMPAGLIFLOZIN 10 MG TABLET PO SCH (08:41)
[2023-01-12] MEDS: PANTOPRAZOLE INJECTION 40 MG VIAL IV SCH ×2 (08:41→21:16)
[2023-01-12] MEDS ORDERED: POTASSIUM CHLORIDE 20 MEQ TABLET PO ONE (09:00)
--- NOTE | 2023-01-12 09:20 | Wound Care Assessment ---
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 He was initially admitted for abdominal pain. After CT showed evidence of free air he underwent ex lap with gastric resection for a gastric perforation by Dr Davis. From record review he was intubated from 12/21 to 12/22 then again from 12/26 to 12/28 after experiencing acute hypoxic respiratory failure requ iring resuscitation. He has gradually weaned down on oxygen requirements. Severe emphysematous changes with blebs noted on imaging. Long h/o tobaccoism. Cardiology has been consulted and is managing his afib with intermittent RVR. He was treated with IV abx for ventilator associated pna. He had an abnormal small bowel follow through with slowed transit to small bowel and gaseous distention. He is currently on pain medication for broken ribs suffered in resuscitation efforts, he has been informed these opioids are likely contributing to ileus and distention and is attempting to wean down. Moderate PEM on labs. He is on TPN with addition of CLD but has struggled with tolerating po due to ileus. He has developed a sacral pressure wound during the course of his stay in spite of frequent repositioning. He denies any pain to this area. Denies feeling or seeing any bloody or purulent drainage. He does not recall any open wound prior to this hospitalization. He does have a history of sacral pressure ulcer during prolonged hospital stay in 2018, patient reports this healed well as he recovered and was able to offload sacrum. He does report intermittent fecal incontinence which will also complicate his wound healing. Past Medical History: Admits Heart Disease; Denies Diabetes Type II, Denies Lupas, Denies Cancer, Treaments Smoking Status: Current Everyday Smoker Recreational Drug Use: No Alcohol Use: Regular Use Review of Systems General: No Chills, No Night Sweats HEENT: No Head Aches Pulmonary: Dyspnea (improving); No Cough Cardiovascular: No: Chest Pain Gastrointestinal: Other; No: Nausea, Vomiting Musculoskeletal: No: back pain Neurological: No: Change in speech, Confusion Exam Vital Signs Date Time Temp Pulse Resp B/P (MAP) Pulse Ox O2 Delivery O2 Flow Rate FiO2 01/12/23 08:00 36.9 95 21 132/84 (100) 100 NIV Bilevel 30.00 01/07/23 08:00 30 Capillary Refill : Less Than 3 Seconds General Appearance: no apparent distress, thin HEENT: PERRL/EOMI Neck: supple Cardiovascular: tachycardia Respiratory: no accessory muscle use, other (on nasal cannula at this time) Gastrointestinal: distended Neurologic/Psychiatric: alert, normal mood/affect, oriented x 3 Skin: other (coccygeal pressure ulcer without surrounding erythema) Skin Problem Location: torso Skin Character: drainage, lesion Sacral pressure ulcer Stage 3- full thickness to subcutaneous fat, no underlying bone, muscle, tendon No tunneling or undermining large serosanguinous drainage margins are flat granulation is small and pink necrotic is large and slough 3.1x 1.4x 0.1 cm Results Laboratory Tests 01/11/23 12:28: Glucometer 113H 01/11/23 21:42: Glucometer 131H 01/12/23 05:30: White Blood Count 7.4, Red Blood Count 2.78L, Hemoglobin 9.5L, Hematocrit 29L, Mean Corpuscular Volume 105H, Mean Corpuscular Hemoglobin 34, Mean Corpuscular Hemoglobin Concent 32, Red Cell Distribution Width 14.6H, Platelet Count 227, Mean Platelet Volume 11.0, Immature Granulocyte % (Auto) 0, Neutrophils (%) (Auto) 72, Lymphocytes (%) (Auto) 16, Monocytes (%) (Auto) 9, Eosinophils (%) (Auto) 2, Basophils (%) (Auto) 0, Neutrophils # (Auto) 5.4, Lymphocytes # (Auto) 1.2, Monocytes # (Auto) 0.7, Eosinophils # (Auto) 0.1, Basophils # (Auto) 0.0, Immature Granulocyte # (Auto) 0.0, Sodium Level 140, Potassium Level 3.9, Chloride Level 107, Carbon Dioxide Level 27, Anion Gap 6, Blood Urea Nitrogen 18, Creatinine 0.80, Estimat Glomerular Filtration Rate 97, BUN/Creatinine Ratio 23, Glucose Level 100, Calcium Level 8.5, Corrected Calcium 9.5, Total Bilirubin 0.8, Aspartate Amino Transf (AST/SGOT) 27, Alanine Aminotransferase (ALT/SGPT) 25, Alkaline Phosphatase 164H, Total Protein 6.5, Albumin 2.7L 01/12/23 06:08: Magnesium Level 1.9 Microbiology 12/26/22 Gram Stain - Final, Complete 12/26/22 Sputum Culture - Final, Complete Klebsiella pneumoniae Assessment/Plan/Dx 1. Stage 3 coccygeal pressure ulcer 2. Acute on chronic hypoxic respiratory failure, improving (underlying emphysema) 3. S/p ex lap with partial gastric resection for perforated viscus 4. afib with RVR 5. VAP 6. Anemia 7. Post op ileus 8. Alcohol use disorder and tobaccoism 9. Moderate PEM 10. Fecal incontinence Plan: 1. Cleanse wound with vashe, apply silver alginate dressing with barrier ointment to periwound, cover with foam dressing, change daily. Patient needs frequent repositioning to offload sacrum. Gradual improved nutrition intake with allow for better wound healing, currently on TPN just started clear liquid diet. Advance diet per surgery. 2. Per primary team, attempting to wean down O2 requirements, patient wishes to DC home, refuses facility 3. Per surgery 4. Per cardiology, on metoprolol and diltiazem for rate control 5. Finished abx course, improving. WBC normal 6. Hgb low but stable, per primary team 7. per surgery, attempting to wean narcotic pain medication 8. Was placed on CIWA protocol at time of admission, no current signs of withdrawal, per primary team 9. Encouraged nutrition. Protein shakes already ordered 10. Frequent toileting and changing of briefs/bedding with incontinence Supervisory-Addendum Brief Verification & Attestation Participated in pt care: history, MDM, physical Personally performed: exam, history, MDM, supervision of care Care discussed with: Medical Student Procedures: n/a Results interpretation: Verified all documentation AUDREY VELA Jan 12, 2023 09:20 RENE WILSON MD Jan 12, 2023 10:34
[2023-01-12] MEDS: fentaNYL INJECTION 100 MCG/2 ML VIAL IVP PRN (09:42)
[2023-01-12] MEDS ORDERED: HYPOCHLOROUS ACID/NaCl WOUND SOLN 250 ML IR SCH (10:30)
--- NOTE | 2023-01-12 10:38 | Physical Therapy Daily Note ---
PT Daily Note-Current Subjective Patient agrees to therapy. Pain Section J - Health Conditions 1. Rarely or not at all 2. Occasionally 3. Frequently 4. Almost constantly 8. Unable to answer Pain Effect on Sleep: 1 Pain Interference with Therapy: 1 Pain Interference w/Day-to-Day: 1 Transfers SCALE: Activities may be completed with or without assistive devices. 0-Sflgmnywyu-hbhkgoy completes the activity by him/herself with no assistance from a helper. 5-Set-up or Clean-up Assistance-helper sets up or cleans up; patient completes activity. [place] assists only prior to or following the activity. 4-Supervision or Touching Assistance-helper provides verbal cues and/or touching/steadying and/or contact guard assistance as patient completes activity. Assistance may be provided throughout the activity or intermittently. 3-Partial/Moderate Assistance-helper does LESS THAN HALF the effort. [place] lifts, holds or supports trunk or limbs, but provides less than half the effort. 2-Substantial/Maximal Assistance-helper does MORE THAN HALF the effort. [place] lifts or holds trunk or limbs and provides more than half the effort. 3-Cnnvygllx-yhmzre does ALL the effort. Patient does none of the effort to complete the activity. Or, the assistance of 2 or more helpers is required for the patient to complete the activity. If activity was not attempted, code reason: 7-Patient Refused. 9-Not Applicable-not attempted and the patient did not perform the activity before the current illness, exacerbation or injury. 10-Not Attempted due to Environmental Limitations-(lack of equipment, weather restraints, etc.). 88-Not Attempted due to Medical Conditions or Safety Concerns. Lying to Sitting/Side of Bed(Q: 6 Sit to Stand (QC): 5 Chair/Rsa-cp-Npuvc Xfer(QC): 5 Toilet Transfer (QC): 5 Gait Training Distance: 225' Walk 10 feet (QC): 4 Walk 50 ft with 2 Turns(QC): 4 Walk 150 ft (QC): 4 Gait Assistive Device: FWW O2 4L with activity/safe and functional gait sequence/2 standing recovery periods due to SOA Assessment Patient's SAO2 94% on 4L after ambulation 225' FWW. Patient does have noted SOA with activity. Breathing techniques reviewed and demonstrated with patient demonstrating appropriately. PT Long-Term Goals Round Kiln Drawer Goals PT Round Kiln Drawer Goals Time Frame: Jan 30, 2023 Roll Left & Right (QC): 6 Sit to Lying (QC): 6 Lying-Sitting on Side/Bed(QC): 6 Sit to Stand (QC): 6 Chair/Jpb-ei-Lkgfq Xfer(QC): 6 Toilet Transfer (QC): 6 Walk 10 feet (QC): 6 Walk 50ft with 2 Turns (QC): 6 Walk 150 ft (QC): 6 PT Plan Treatment/Plan Treatment Plan: Continue Plan of Care Treatment Plan: Bed Mobility, Education, Functional Activity Renée, Functional Strength, Gait, Safety, Therapeutic Exercise, Transfers Treatment Duration: Jan 30, 2023 Frequency: 5 times per week Estimated Hrs Per Day: .25 hour per day Patient and/or Family Agrees t: Yes Time Time In: 1015 Time Out: 1027 DATE: Jan 12, 2023 Total Billed Treatment Time: 12 Total Billed Treatment 1 visit FA 12 min TOMMY WIHTT PT Jan 12, 2023 10:38
--- NOTE | 2023-01-12 10:58 | Occupational Ther Daily Note ---
OT Current Status-Daily Note Subjective Moderate encouragement required for patient to shower Mental Status/Objective Patient Orientation: Person, Place, Time, Situation Attachments: Oxygen, Telemetry ADL-Treatment OT facilitated shower, nursing staff to attach telemetry and wound dressing. 02 on duration of shower 90% 6 liters, OT performed 75% of tasks while patient completed front of body shoulder to knees only Therapy Code Descriptions/Definitions Functional [place] Measure: 0=Not Assessed/NA 4=Minimal Assistance 1=Total Assistance 5=Supervision or Setup 2=Maximal Assistance 6=Modified [place] 3=Moderate Assistance 7=Complete IndependenceSCALE: Activities may be completed with or without assistive devices. 5-Jgwmeievkg-fwurnki completes the activity by him/herself with no assistance from a helper. 5-Set-up or Clean-up Assistance-helper sets up or cleans up; patient completes activity. [place] assists only prior to or following the activity. 4-Supervision or Touching Assistance-helper provides verbal cues and/or touching/steadying and/or contact guard assistance as patient completes activity. Assistance may be provided throughout the activity or intermittently. 3-Partial/Moderate Assistance-helper does LESS THAN HALF the effort. [place] lifts, holds or supports trunk or limbs, but provides less than half the effort. 2-Substantial/Maximal Assistance-helper does MORE THAN HALF the effort. [place] lifts or holds trunk or limbs and provides more than half the effort. 3-Yzouaqyvv-bnbvsa does ALL the effort. Patient does none of the effort to complete the activity. Or, the assistance of 2 or more helpers is required for the patient to complete the activity. If activity was not attempted, code reason: 7-Patient Refused. 9-Not Applicable-not attempted and the patient did not perform the activity before the current illness, exacerbation or injury. 10-Not Attempted due to Environmental Limitations-(lack of equipment, weather restraints, etc.). 88-Not Attempted due to Medical Conditions or Safety Concerns. Eating (QC): 5 (clear) Oral Hygiene (QC): 5 Bathing Location: L Arm, R Arm, L Upper Leg, R Upper Leg, Chest, Abdomen Shower/Bathe Self (QC): 2 Upper Body Dressing (QC): 4 Lower Body Dressing (QC): 5 On/Off Footwear: 3 (d/t moist skin and SOA) Toileting Hygiene (QC): 4 Toilet Transfer (QC): 5 Education OT Patient Education: Correct positioning, Disease process, Energy conservation, Modified ADL techniques, Progress toward Goal/Update tx plan, Purpose of tx/functional activities, Reviewed precautions, Rehab process, Safety issues, Transfer techniques, Use of adapted equipment Teaching Recipient: Patient Teaching Methods: Demonstration, Discussion Response to Teaching: Reinforcement Needed OT Retirement Goals Retirement Goals Eating (QC): 6 Oral Hygiene (QC): 5 Toileting Hygiene (QC): 4 Shower/Bathe Self (QC): 4 Upper Body Dressing (QC): 4 Lower Body Dressing (QC): 4 On/Off Footwear (QC): 4 1=Demonstrate adherence to instructed precautions during ADL tasks. 2=Patient will verbalize/demonstrate understanding of assistive devices/modifications for ADL. 3=Patient will improve strength/tolerance for activity to enable patient to perform ADL's. OT Education/Plan Problem List/Assessment Assessment: Decreased Activ Tolerance, Decreased Safety Aware, Impaired Self- Care Skills Discharge Recommendations Plan/Recommendations: Continue POC Treatment Plan/Plan of Care Treatment,Training & Education: Yes Patient would benefit from OT for education, treatment and training to promote independence in ADL's, mobility, safety and/or upper extremity function for ADL's. Plan of Care: ADL Retraining, Functional Mobility, Group Exercise/Act as Ind, UE Funct Exercise/Act Treatment Duration: Jan 08, 2023 Frequency: 3 times per week (3-5 times per week) Estimated Hrs Per Day: .25 hour per day Agreement: Yes Rehab Potential: Fair in recliner waiting for nursing to attach telemetry , make bed and change wound. 02 on Time Start Time: 10:00 Stop Time: 10:48 DATE: Jan 12, 2023 Total Time Billed (hr/min): 48 Billed Treatment Time ADL 48 min SARAH CARTAGENA OT Jan 12, 2023 10:58
[2023-01-12] MEDS: oxyCODONE IMMEDIATE RELEASE 5 MG TABLET PO PRN (14:13)
[2023-01-12] MEDS: HYDROcodone/ACETAMINOPHEN 7.5 MG/325 MG TABLET PO PRN (17:13)
[2023-01-12] MEDS: POTASSIUM CHLORIDE IV SCH ×10 (18:35)
[2023-01-12] MEDS: SODIUM PHOSPHATE IV SCH ×10 (18:35)
[2023-01-12] MEDS: [UNRECOGNIZED DRUG - OTHER] IV SCH ×10 (18:35)
[2023-01-12] MEDS: SODIUM ACETATE IV SCH ×10 (18:35)
[2023-01-12] MEDS: MELATONIN 3 MG TABLET PO SCH (21:16)
[2023-01-13] VITALS (7 sets, daily range): BP systolic 98–127; BP diastolic 63–83
[2023-01-13] MEDS: RT-Ipratropium/Albuterol NEB 3 ML VIAL INH SCH ×3 (02:53→15:05)
[2023-01-13] MEDS: ENOXAPARIN 80 MG/0.8 ML SYRINGE SC SCH (03:56)
[2023-01-13] MEDS: meTOprolol INJECTION 5 MG/5 ML VIAL IV SCH ×2 (03:56→09:30)
[2023-01-13 04:11] LABS: BASOPHILS % (AUTO) 1 % (0-10); EOSINOPHILS # (AUTO) 0.2 10^3/uL (0.0-0.3); EOSINOPHILS % (AUTO) 3 % (0-10); HEMATOCRIT 28 % (40-54); HEMOGLOBIN 9.1 g/dL (13.3-17.7); LYMPHOCYTES # (AUTO) 1.3 10^3/uL (1.0-4.0); LYMPHOCYTES % (AUTO) 24 % (12-44); MEAN CORPUSCULAR HEMOGLOBIN 35 pg (25-34); MEAN CORPUSCULAR HGB CONC 33 g/dL (32-36); MEAN CORPUSCULAR VOLUME 107 fL (80-99); MEAN PLATELET VOLUME 11.2 fL (9.0-12.2); MONOCYTES # (AUTO) 0.5 10^3/uL (0.0-1.0); MONOCYTES % (AUTO) 9 % (0-12); NEUTROPHILS # (AUTO) 3.4 10^3/uL (1.8-7.8); NEUTROPHILS % (AUTO) 63 % (42-75); PLATELET COUNT 210 10^3/uL (130-400); WHITE BLOOD COUNT 5.4 10^3/uL (4.3-11.0)
[2023-01-13 04:28] LABS: ALBUMIN 2.7 GM/DL (3.2-4.5); BILIRUBIN,TOTAL 0.7 MG/DL (0.1-1.0); CALCIUM 8.4 MG/DL (8.5-10.1); CREATININE SERUM 1.03 MG/DL (0.60-1.30); POTASSIUM 5.3 MMOL/L (3.6-5.0); TOTAL PROTEIN 6.7 GM/DL (6.4-8.2)
[2023-01-13] MEDS: POTASSIUM CHLORIDE 20 MEQ TABLET PO SCH (05:23)
[2023-01-13] MEDS: MAGNESIUM 1 GM/100 ML IVPB 100 ML IV SCH (05:23)
[2023-01-13] MEDS: POTASSIUM CL 10MEQ/50ML IVPB 50 ML IV SCH (05:23)
--- NOTE | 2023-01-13 07:35 | Progress Note - Surgery ---
NEMESIO HODGSON 01/13/23 0735: Subjective Date Seen by a Provider: Jan 13, 2023 Time Seen by a Provider: 07:25 Subjective/Events-last exam Pt is laying comfortably. Breathing well. Not c/o pain currently. Had 3 BMs yesterday and passing gas. Abdomens is distended. Pt walked 225ft with PT yesterday. Tolerated regular solid food diet yesterday w/o nausea and vomiting. Review of Systems General: No Chills, No Night Sweats HEENT: No Head Aches, No Visual Changes Pulmonary: No Dyspnea, No Cough Cardiovascular: No: Chest Pain, Palpitations Gastrointestinal: No: Nausea, Vomiting Genitourinary: No Dysuria, No Frequency Musculoskeletal: No: neck pain, shoulder pain Neurological: No: Weakness, Numbness Objective Exam Vital Signs Date Time Temp Pulse Resp B/P (MAP) Pulse Ox O2 Delivery O2 Flow Rate FiO2 01/13/23 06:00 100 16 120/72 (89) 100 NIV Bilevel 30.00 01/13/23 04:00 92 17 98/80 (90) 100 NIV Bilevel 30.00 01/13/23 02:53 94 17 99 30.00 01/13/23 02:45 86 13 99 NIV Bilevel 30.00 01/13/23 02:00 92 11 113/72 (86) 100 High Flow N/C 2.00 01/13/23 01:00 66 01/13/23 01:00 86 15 99 High Flow N/C 2.00 01/13/23 00:00 69 20 109/63 (78) 100 NIV Bilevel 30.00 01/12/23 22:08 84 16 96 NIV Bilevel 30.00 01/12/23 22:06 75 21 100 30.00 01/12/23 22:00 65 24 109/56 (67) 100 High Flow N/C 2.00 01/12/23 20:00 36.7 69 18 118/71 (87) 100 High Flow N/C 2.00 01/12/23 20:00 100 High Flow N/C 2.00 01/12/23 19:00 69 01/12/23 16:00 37.2 68 20 135/74 (94) High Flow N/C 2.00 01/12/23 15:05 High Flow N/C 2.00 01/12/23 14:29 96 Nasal Cannula 2.00 01/12/23 13:00 59 01/12/23 12:04 37.0 97 18 110/87 (95) 97 High Flow N/C 2.00 01/12/23 08:00 High Flow N/C 3.00 01/12/23 08:00 36.9 95 21 132/84 (100) 100 NIV Bilevel 30.00 I & O 01/13/23 07:00 Intake Total 370 ml Output Total 1450 ml Balance -1080 ml Capillary Refill : Less Than 3 Seconds General Appearance: No Apparent Distress, WD/WN, Chronically ill HEENT: PERRL/EOMI, Normal ENT Inspection Neck: Non Tender Respiratory: Lungs Clear, Normal Breath Sounds Cardiovascular: No Edema, Irregularly Irregular Peripheral Pulses: 2+ Dorsalis Pedis (R), 2+ Left Dors-Pedis (L), 2+ Radial Pulses (R), 2+ Radial Pulses (L) Gastrointestinal: distended (less), tenderness (minimal midline, incision c/d/i) Extremity: Non Tender, No Calf Tenderness Neurologic/Psychiatric: Alert, Oriented x3 Skin: Normal Color, Warm/Dry Lymphatic: No Adenopathy Results Lab Laboratory Tests 01/12/23 16:19: Glucometer 134H 01/12/23 21:23: Glucometer 119H 01/13/23 04:04: White Blood Count 5.4, Red Blood Count 2.63L, Hemoglobin 9.1L, Hematocrit 28L, Mean Corpuscular Volume 107H, Mean Corpuscular Hemoglobin 35H, Mean Corpuscular Hemoglobin Concent 33, Red Cell Distribution Width 14.8H, Platelet Count 210, Mean Platelet Volume 11.2, Immature Granulocyte % (Auto) 0, Neutrophils (%) (Auto) 63, Lymphocytes (%) (Auto) 24, Monocytes (%) (Auto) 9, Eosinophils (%) (Auto) 3, Basophils (%) (Auto) 1, Neutrophils # (Auto) 3.4, Lymphocytes # (Auto) 1.3, Monocytes # (Auto) 0.5, Eosinophils # (Auto) 0.2, Basophils # (Auto) 0.0, Immature Granulocyte # (Auto) 0.0, Sodium Level 137, Potassium Level 5.3H, Chloride Level 107, Carbon Dioxide Level 24, Anion Gap 6, Blood Urea Nitrogen 17, Creatinine 1.03, Estimat Glomerular Filtration Rate 80, BUN/Creatinine Ratio 17, Glucose Level 447*H, Calcium Level 8.4L, Corrected Calcium 9.4, Total Bilirubin 0.7, Aspartate Amino Transf (AST/SGOT) 45H, Alanine Aminotransferase (ALT/SGPT) 25, Alkaline Phosphatase 164H, Total Protein 6.7, Albumin 2.7L 01/13/23 05:07: Glucometer 118H Microbiology 12/26/22 Gram Stain - Final, Complete 12/26/22 Sputum Culture - Final, Complete Klebsiella pneumoniae Assessment/Plan Assessment/Plan Assessment/Plan S/P Ex lap with partial gastric resection S/P Respiratory Arrest Gastric/abdominal Distention Ileus Afib Left rib fxs 2-5 Postoperative ileus Sacral decub ulcer BIPAP use last manager night blood pressure- stable abdomen is distended, has bowel function feel related to ileus. Discussed increasing activity and limiting narcotics Regular diet tolerated- Recent Small bowel follow through- Contrast Transit time of 7hrs with normal s mall bowel caliber and gaseous distension of colon Incentive spirometer Lovenox Will still need colonoscopy due to thickening of the sigmoid, which he did have planned but due to condition will need to hold off at this time. Continue PT and OT Wound care Discharge home today with home health CROW DAVIS DO 01/13/231920: Subjective Subjective/Events-last exam Patient doing well today. Having bowel function. Tolerating diet. Increasing activity. Tolerating small amounts of regular diet. Patient wanting to go home, declines further facility care. Denies n/v fever sweats chills or chest pain. Objective Exam General Appearance: No Apparent Distress, Chronically ill HEENT: PERRL/EOMI, Normal ENT Inspection Neck: Full Range of Motion, Non Tender Respiratory: Chest Non Tender, No Accessory Muscle Use, No Respiratory Distress Cardiovascular: No JVD, Irregularly Irregular Gastrointestinal: distended, tenderness (minimal midline, incision c/d/i) Extremity: Non Tender, No Calf Tenderness Neurologic/Psychiatric: Alert, Oriented x3 Skin: Normal Color, Warm/Dry Lymphatic: No Adenopathy Assessment/Plan Assessment/Plan Assessment/Plan S/P Ex lap with partial gastric resection S/P Respiratory Arrest Gastric/abdominal Distention Ileus Afib Left rib fxs 2-5 Postoperative ileus Sacral decub ulcer BIPAP use last manager night blood pressure- stable abdomen is distended, has bowel function feel related to ileus. Discussed increasing activity and limiting narcotics Regular diet tolerated- Recent Small bowel follow through- Contrast Transit time of 7hrs with normal small bowel caliber and gaseous distension of colon Incentive spirometer Uyen Will still need colonoscopy due to thickening of the sigmoid, which he did have planned but due to condition will need to hold off at this time. Continue PT and OT Wound care Discharge home today with home health, he refuses other options of further facility care. Supervisory-Addendum Brief Verification & Attestation Participated in pt care: history, MDM, physical Personally performed: exam, history, MDM, supervision of care Care discussed with: Medical Student Procedures: n/a Results interpretation: Verified all documentation Verification and Attestation of Medical Student E/M Service A medical student performed and documented this service in my presence. I reviewed and verified all information documented by the medical student and made modifications to such information, when appropriate. I personally performed the physical exam and medical decision making. Crow Davis, Jan 13, 2023,19:21 NEMESIO HODGSON Jan 13, 2023 07:35 CROW DAVIS DO Jan 13, 2023 19:21
[2023-01-13] MEDS: PANTOPRAZOLE INJECTION 40 MG VIAL IV SCH (09:30)
[2023-01-13] MEDS: EMPAGLIFLOZIN 10 MG TABLET PO SCH (09:30)
[2023-01-13] MEDS: HYDROcodone/ACETAMINOPHEN 7.5 MG/325 MG TABLET PO PRN ×2 (09:40→16:38)
--- NOTE | 2023-01-13 09:49 | Cardiology Progress Note ---
Subjective Date Seen by Provider: Jan 13, 2023 Time Seen by Provider: 09:00 Subjective/Events-last exam Patient is sitting up in bed, denies any abdominal pain or chest pain. Objective-Cardiology Exam Last Set of Vital Signs Vital Signs 01/07/23 01/13/23 01/13/23 01/13/23 08:00 12:00 13:00 15:05 Temp 37.3 Pulse 110 Resp 18 B/P (MAP) 104/71 (82) Pulse Ox 100 O2 Delivery Nasal Cannula O2 Flow Rate 2.00 FiO2 30 I&O Intake and Output 01/12/23 23:59 Intake Total 510 ml Output Total 1100 ml Balance -590 ml Intake Oral 510 ml Output Urine Total 1100 ml # Bowel Movements 1 General: Alert, Oriented X3 HEENT: Atraumatic, EOMI Neck: Supple, No Thyromegaly Lungs: Clear to Auscultation, Normal Air Movement Heart: Normal S1, Normal S2, Other (Tachycardic, irregularly irregular) Abdomen: Normal Bowel Sounds, Soft, No Tenderness, Other (Midline incision with delbert) Extremities: No Edema Skin: No Rashes, No Significant Lesion Neuro: Normal Speech Psych/Mental Status: Mental Status NL Results Lab Laboratory Tests 01/13/23 04:04 A/P-Cardiology Admission Diagnosis Acute abdomen Acute respiratory failure Coronary artery disease Permanent atrial fibrillation Dilated cardiomyopathy Assessment/Plan Permanent atrial fibrillation, rate controlled. Continue to monitor. Status post cardiac arrest, most probably secondary to hypoxemia and respiratory failure. Has been stable. Continue to monitor Status post acute abdomen, gastric perforation, status post exploratory laparotomy done on December 21, 2022 Improving Managed by surgical team. Continue to monitor Coronary artery disease, history of stenting Patient was scheduled for [facility] on December 23, 2022 as outpatient. On hold for now. COPD, using oxygen at night, had a complex hospitalization with Legionella pneumonia and CMV, respiratory failure, multiple cardiac arrest in October 2017. loculated pneumonia underwent right lung decortication on January 28, 2018 resulted in hydropneumothorax and marked emphysema and had prolonged chest tube placement. History of congestive heart failure, chronic left ventricular systolic dysfunction, maintained on Heavy alcoholism, managed by primary care physician Abdominal aortic aneurysm, had a stent placed by Dr. Hogue done in June 2021. Hypertension, blood pressure controlled, continue to monitor. Hyperlipidemia, continue to monitor lipids Tobaccoism Supervisory-Addendum Brief Supervisory Addendum Participated in pt care: history, MDM, physical Personally performed: exam, history, MDM Care discussed with: SILAS Results interpretation: Verified all documentation Notes: Patient was seen and evaluated with Ann, examination performed, management plan was discussed, agree with the current scribed note, I made few changes to the note using Italic font Patient was seen at bedside, laying down comfortably, reported to me that he is going home Tolerating current medication well Tolerating diet and having bowel movement Still having distended abdomen I will arrange for follow-up in my office and we will continue monitoring ANN WEST PA-C Jan 13, 2023 09:49 AIDAN PASTOR MD Jan 13, 2023 15:48
[2023-01-13] MEDS ORDERED: SERT-412 PO ×2 (09:58→12:44)
[2023-01-13] MEDS ORDERED: POTA-330 PO ×2 (09:58→12:44)
[2023-01-13] MEDS ORDERED: LOSA-417 PO (09:58)
[2023-01-13] MEDS ORDERED: PANT40TA52 PO (09:58)
[2023-01-13] MEDS ORDERED: ATOR10TA66 PO ×2 (09:58→12:44)
[2023-01-13] MEDS ORDERED: HYDR25VI IM (09:58)
[2023-01-13] MEDS ORDERED: IPRA3AMP31 IH ×2 (09:58→12:44)
[2023-01-13] MEDS ORDERED: ALBU18HF2 INH (09:58)
[2023-01-13] MEDS ORDERED: BUDE10.7 IH ×2 (09:58→12:44)
[2023-01-13] MEDS ORDERED: DILT240C91 PO (09:58)
[2023-01-13] MEDS ORDERED: FOLI1TAB33 PO ×2 (09:58→12:44)
[2023-01-13] MEDS ORDERED: MAGN400T39 PO ×2 (09:58→12:44)
[2023-01-13] MEDS ORDERED: RIVA20TA PO ×2 (09:58→12:44)
[2023-01-13] MEDS ORDERED: DIGO125T3 PO (09:58)
[2023-01-13] MEDS ORDERED: METO-333 PO ×2 (09:58→12:44)
[2023-01-13] MEDS ORDERED: ROFL500T9 PO ×2 (09:58→12:44)
[2023-01-13] MEDS ORDERED: ASPI-1238 PO (10:00)
--- NOTE | 2023-01-13 11:41 | Physical Therapy Daily Note ---
PT Daily Note-Current Subjective Patient lying supine in bed upon PT arrival, agreeable to treatment. Patient rates pain at 8/10 in his chest and ribs. Pain Section J - Health Conditions 1. Rarely or not at all 2. Occasionally 3. Frequently 4. Almost constantly 8. Unable to answer Pain Effect on Sleep: 1 Pain Interference with Therapy: 1 Pain Interference w/Day-to-Day: 1 Transfers SCALE: Activities may be completed with or without assistive devices. 3-Egkthempuj-foyksco completes the activity by him/herself with no assistance from a helper. 5-Set-up or Clean-up Assistance-helper sets up or cleans up; patient completes activity. [place] assists only prior to or following the activity. 4-Supervision or Touching Assistance-helper provides verbal cues and/or touching/steadying and/or contact guard assistance as patient completes activity. Assistance may be provided throughout the activity or intermittently. 3-Partial/Moderate Assistance-helper does LESS THAN HALF the effort. [place] lifts, holds or supports trunk or limbs, but provides less than half the effort. 2-Substantial/Maximal Assistance-helper does MORE THAN HALF the effort. [place] lifts or holds trunk or limbs and provides more than half the effort. 1-Xsfitdjcz-aldnei does ALL the effort. Patient does none of the effort to complete the activity. Or, the assistance of 2 or more helpers is required for the patient to complete the activity. If activity was not attempted, code reason: 7-Patient Refused. 9-Not Applicable-not attempted and the patient did not perform the activity before the current illness, exacerbation or injury. 10-Not Attempted due to Environmental Limitations-(lack of equipment, weather restraints, etc.). 88-Not Attempted due to Medical Conditions or Safety Concerns. Roll Left & Right (QC): 4 Sit to Lying (QC): 4 Lying to Sitting/Side of Bed(Q: 4 Sit to Stand (QC): 4 Chair/Cwr-qs-Omift Xfer(QC): 4 Gait Training Does the Patient Walk?: Yes Distance: 250' Walk 10 feet (QC): 4 Walk 50 ft with 2 Turns(QC): 4 Walk 150 ft (QC): 4 Gait Assistive Device: FWW Assessment Current Status: Fair Progress Patient tolerated treatment fair, however noticeable short of breath post gait training. Patient performs all bed mobility and transfers with SBA/CGA. Patient ambulates 250' with FWW, with SBA and verbal cues for safety, progression, posture and conservation of energy. Patient in chair post treatment with all needs met, nursing notified, call light in hand. PT Skilled Nursing Goals Commercial Project Manager Goals PT Commercial Project Manager Goals Time Frame: Jan 30, 2023 Roll Left & Right (QC): 6 Sit to Lying (QC): 6 Lying-Sitting on Side/Bed(QC): 6 Sit to Stand (QC): 6 Chair/Kqx-tg-Wpkoh Xfer(QC): 6 Toilet Transfer (QC): 6 Walk 10 feet (QC): 6 Walk 50ft with 2 Turns (QC): 6 Walk 150 ft (QC): 6 PT Plan Treatment/Plan Treatment Plan: Continue Plan of Care Treatment Plan: Bed Mobility, Education, Functional Activity Renée, Functional Strength, Gait, Safety, Therapeutic Exercise, Transfers Treatment Duration: Jan 30, 2023 Frequency: 5 times per week Estimated Hrs Per Day: .25 hour per day Patient and/or Family Agrees t: Yes Safety Risks/Education Patient Education: Gait Training, Transfer Techniques Teaching Recipient: Patient Teaching Methods: Demonstration, Discussion Response to Teaching: Verbalize Understanding, Return Demonstration Time Time In: 1111 Time Out: 1130 DATE: Jan 13, 2023 Total Billed Treatment Time: 19 Total Billed Treatment Visit, ED NORMAN PT Jan 13, 2023 11:41
[2023-01-13] MEDS: fentaNYL INJECTION 100 MCG/2 ML VIAL IVP PRN (12:06)
[2023-01-13] MEDS ORDERED: ONDA4TAB11 SL (12:44)
[2023-01-13] MEDS ORDERED: EMPA10TA PO (12:44)
[2023-01-13] MEDS ORDERED: HYDR-34 PO (12:44)
[2023-01-13] MEDS ORDERED: PANT40TA2 PO (12:44)
[2023-01-13] MEDS ORDERED: DILT60TA PO (12:44)
--- NOTE | 2023-01-13 12:45 | Occupational Ther Daily Note ---
OT Current Status-Daily Note Subjective Patient reports he thinks he is leaving today. Does not c/o pain in ribs however c/o pain to B shoulders during UE thr ex w/ resistance band Pain Numeric Pain Scale: 5-Moderate Pain (Noris Reidbri, reports arthritis) Mental Status/Objective Patient Orientation: Person, Place, Time, Situation ADL-Treatment Therapy Code Descriptions/Definitions Functional [place] Measure: 0=Not Assessed/NA 4=Minimal Assistance 1=Total Assistance 5=Supervision or Setup 2=Maximal Assistance 6=Modified [place] 3=Moderate Assistance 7=Complete IndependenceSCALE: Activities may be completed with or without assistive devices. 5-Toujginymz-mkuvvxm completes the activity by him/herself with no assistance from a helper. 5-Set-up or Clean-up Assistance-helper sets up or cleans up; patient completes activity. [place] assists only prior to or following the activity. 4-Supervision or Touching Assistance-helper provides verbal cues and/or touching/steadying and/or contact guard assistance as patient completes activity. Assistance may be provided throughout the activity or intermittently. 3-Partial/Moderate Assistance-helper does LESS THAN HALF the effort. [place] lifts, holds or supports trunk or limbs, but provides less than half the effort. 2-Substantial/Maximal Assistance-helper does MORE THAN HALF the effort. [place] lifts or holds trunk or limbs and provides more than half the effort. 8-Jvrgipfoj-spvrgw does ALL the effort. Patient does none of the effort to complete the activity. Or, the assistance of 2 or more helpers is required for the patient to complete the activity. If activity was not attempted, code reason: 7-Patient Refused. 9-Not Applicable-not attempted and the patient did not perform the activity before the current illness, exacerbation or injury. 10-Not Attempted due to Environmental Limitations-(lack of equipment, weather restraints, etc.). 88-Not Attempted due to Medical Conditions or Safety Concerns. Patient complete ADLS in sitting position with set up d/t environmental restrictions and lines Other Treatment Resistance bands for BUE shoulder and elbow strength, flex/ext, abd/add 10 reps each with rest periods at 5 intervals Education OT Patient Education: Correct positioning, Exercise program, Progress toward Goal/Update tx plan, Purpose of tx/functional activities, Reviewed precautions, Rehab process Teaching Recipient: Patient Teaching Methods: Demonstration, Discussion Response to Teaching: Return Demonstration OT Teletypesetter Monitor Goals Teletypesetter Monitor Goals Eating (QC): 6 Oral Hygiene (QC): 5 Toileting Hygiene (QC): 4 Shower/Bathe Self (QC): 4 Upper Body Dressing (QC): 4 Lower Body Dressing (QC): 4 On/Off Footwear (QC): 4 1=Demonstrate adherence to instructed precautions during ADL tasks. 2=Patient will verbalize/demonstrate understanding of assistive devices/modifications for ADL. 3=Patient will improve strength/tolerance for activity to enable patient to perform ADL's. OT Education/Plan Problem List/Assessment Assessment: Decreased Activ Tolerance Discharge Recommendations Plan/Recommendations: Discontinue OT Treatment Plan/Plan of Care Patient would benefit from OT for education, treatment and training to promote independence in ADL's, mobility, safety and/or upper extremity function for ADL's. Plan of Care: ADL Retraining, Functional Mobility, Group Exercise/Act as Ind, UE Funct Exercise/Act Treatment Duration: Jan 08, 2023 Frequency: 3 times per week (3-5 times per week) Estimated Hrs Per Day: .25 hour per day Agreement: Yes Rehab Potential: Fair Time Start Time: 12:30 Stop Time: 12:45 DATE: Jan 13, 2023 Total Time Billed (hr/min): 15 Billed Treatment Time EX 15 min SARAH CARTAGENA OT Jan 13, 2023 12:45
--- NOTE | 2023-01-13 12:47 | Discharge Summary ---
Discharge Summary Hospital Course Was the Problem List Reviewed?: Yes Problems/Dx: (1) Gastric perforation Status: Acute (2) Alcoholism Status: Chronic (3) Atrial fibrillation Status: Chronic (4) Intra-abdominal free air of unknown etiology Status: Acute (5) Hx of colonic polyps Status: Chronic (6) Pulmonary hypertension Status: Chronic (7) Chronic obstructive pulmonary disease Status: Chronic (8) Mixed hyperlipidemia Status: Chronic (9) Smoker Status: Chronic Hospital Course Date of Admission: Dec 21, 2022 at 22:20 Admission Diagnosis : [facility] [place] Date of [facility]charge: 01/13/23 Discharge Diagnosis: [ ] Hospital Course: Lengthy hospital course after he suffered a gastrointestinal perforation requiring emergent surgery. Patient remains on ventilator. Severe alcohol withdrawal and severe COPD complicated extubation. Patient was ultimately extubated. Patient remains on TPN due to postop ileus. Labs remained stable. Vitamin supplementation initiated. PT and OT were ordered and ultimately patient regained enough function to go home. He felt and labs remained stable and he was tolerating p.o. diet and home health will see him and he will be monitored closely as an outpatient. Atrial fibrillation will remain on protocol medications. Labs and Pending Lab Test: Laboratory Tests 01/12/23 16:19: Glucometer 134H 01/12/23 21:23: Glucometer 119H 01/13/23 04:04: White Blood Count 5.4, Red Blood Count 2.63L, Hemoglobin 9.1L, Hematocrit 28L, Mean Corpuscular Volume 107H, Mean Corpuscular Hemoglobin 35H, Mean Corpuscular Hemoglobin Concent 33, Red Cell Distribution Width 14.8H, Platelet Count 210, Mean Platelet Volume 11.2, Immature Granulocyte % (Auto) 0, Neutrophils (%) (Auto) 63, Lymphocytes (%) (Auto) 24, Monocytes (%) (Auto) 9, Eosinophils (%) (Auto) 3, Basophils (%) (Auto) 1, Neutrophils # (Auto) 3.4, Lymphocytes # (Auto) 1.3, Monocytes # (Auto) 0.5, Eosinophils # (Auto) 0.2, Basophils # (Auto) 0.0, Immature Granulocyte # (Auto) 0.0, Sodium Level 137, Potassium Level 5.3H, Chloride Level 107, Carbon Dioxide Level 24, Anion Gap 6, Blood Urea Nitrogen 17, Creatinine 1.03, Estimat Glomerular Filtration Rate 80, BUN/Creatinine Ratio 17, Glucose Level 447*H, Calcium Level 8.4L, Corrected Calcium 9.4, Total Bilirubin 0.7, Aspartate Amino Transf (AST/SGOT) 45H, Alanine Aminotransferase (ALT/SGPT) 25, Alkaline Phosphatase 164H, Total Protein 6.7, Albumin 2.7L 01/13/23 05:07: Glucometer 118H Microbiology 12/26/22 Gram Stain - Final, Complete 12/26/22 Sputum Culture - Final, Complete Klebsiella pneumoniae Home Meds Active Protonix (Pantoprazole Sodium) 40 Mg Tablet. 40 Mg PO BID Jardiance (Empagliflozin) 10 Mg Tablet 10 Mg PO DAILY Ondansetron Odt (Ondansetron) 4 Mg Tab.rapdis 4 Mg SL Q4H PRN HYDROcodone/APAP 7.5/325 TAB (Acetaminophen/Hydrocodone Bitart) 1 Ea Tablet 1 Ea PO Q4H PRN Diltiazem HCl 60 Mg Tablet 60 Mg PO TID Roflumilast 500 Mcg Tablet 500 Mcg PO DAILY Xarelto (Rivaroxaban) 20 Mg Tablet 20 Mg PO DAILY Potassium Chloride 20 Meq Tablet.er 20 Meq PO DAILY Metoprolol Tartrate 25 Mg Tablet 25 Mg PO BID Magnesium (Magnesium Oxide) 400 Mg Magnesium Tablet 400 Mg PO BID Iprat-Albut 0.5-3(2.5) mg/3 ml (Ipratropium/Albuterol Sulfate) 0.5 Mg-3 Mg (2.5 Mg Base)/3 Ml Ampul.neb 3 Ml IH Q6H PRN Folic Acid 1 Mg Tablet 1 Mg PO DAILY Breztri Aerosphere Inhaler (Budesonide/Glycopyr/Formoterol) 160 Mcg-9 Mcg-4.8 Mcg/Actuation Hfa.aer.ad 2 Puff IH BID Atorvastatin Calcium 10 Mg Tablet 10 Mg PO DAILY Reported Aspirin EC (Aspirin) 81 Mg Tablet. 81 Mg PO DAILY Pantoprazole Sodium 40 Mg Tablet.dr 40 Mg PO HS Cozaar (Losartan Potassium) 100 Mg Tablet 100 Mg PO DAILY Hydroxyzine HCl 25 Mg/Ml Vial 25 Mg IM QID PRN Diltiazem 24Hr ER (Diltiazem HCl) 240 Mg Cap.er.24h 240 Mg PO BID Digoxin 125 Mcg (0.125 Mg) Tablet 125 Mcg PO DAILY Ventolin Hfa (Albuterol Sulfate) 90 Mcg Hfa.aer.ad 2 Puff INH Q6H PRN Assessment/Pt Instructions PCP in 1 week Discharge Planning: <30 minutes discharge planning Discharge Instructions Discharge Diet: No Restrictions Discharge Physical Examination Vital Signs Vital Signs Date Time Temp Pulse Resp B/P (MAP) Pulse Ox O2 Delivery O2 Flow Rate FiO2 01/13/23 09:27 100 Nasal Cannula 2.00 01/13/23 08:00 36.9 01/13/23 07:00 96 01/13/23 06:00 16 120/72 (89) 01/07/23 08:00 30 General Appearance: No Apparent Distress, WD/WN, Chronically ill Respiratory: Lungs Clear, Normal Breath Sounds Cardiovascular: Regular Rate, Rhythm Neurologic/Psychiatric: Alert, Oriented x3 Allergies: Coded Allergies: No Known Drug Allergies (Unverified , 03/17/12) Discharge Summary Date of Admission Dec 21, 2022 at 22:20 Date of Discharge Discharge Date: Jan 13, 2023 Discharge Diagnosis Assessment: Acute hypoxic respiratory failure Currently requiring BIPAP as needed GI bleed Exploratory laparotomy Postop ileus Ventilator associated pneumonia Alcohol withdrawal Atrial fibrillation with RVR Plan: Cardiac stepdown unit Supportive care PT and OT [facility] Declined BiPAP prn STAR KUMARI DO Jan 13, 2023 12:47
--- NOTE | 2023-01-13 12:47 | D/C HH Face to Face Order ---
D/C Face to Face Orders Reconcile Patient Problems Problems Reviewed?: Yes Instructions for Patient Via [facility], Patient Instructions/FollowUp: PCP [address] Davis as scheduled Physician to follow Patient: [facility] Discharge Diet for Home: Regular Diet Patient Problems: Ulcers COPD AF Patient Data-Allergies,Ht & Wt Patient Allergies: Coded Allergies: No Known Drug Allergies (Unverified , 03/17/12) Height (Feet): 6 Height (Inches): 4.00 Weight (Pounds): 154 Weight (Ounces): 2.0 Home Health Need/Face to Face Date of Face to Face: Jan 13, 2023 Clinical Findings: Generalized weakness and fatigue, Instability, Muscle weakness I have seen Pt [id number]: Yes Discharged To: Home Diagnosis/Conditions: ulcers Patient is Homebound due to: [place] fall risk due to instabilty, Muscle weakness Homebound Status Due to the above stated illness, injury or surgical procedure (medical condition or diagnosis) and associated clinical findings, the patient is homebound because of his/her inability to leave home except with aid of a supportive device and/or person AND leaving the home requires a considerable and taxing effort or is medically contraindicated. Pt req the following assistanc: [facility] Nursing Orders Home Health Services Order: Nursing Services, Translator Interpreter-Evaluate & Treat, Physical Therapy-Evaluate & Treat Home Health Infusion Therapy Line Start Date: Jan 06, 2023 Certify Stmt I certify that this patient is under my care and that I, a nurse practitioner or a physician; a child development assistant working with me, had a face to face encounter that - meets the physician face to face encounter requirements with this patient as dated. STAR KUMARI DO Jan 13, 2023 12:47
[2023-01-13] MEDS: oxyCODONE IMMEDIATE RELEASE 5 MG TABLET PO PRN (13:56)
== END 2023-01-13 17:35 | disposition home health service (06) | DRG 326 ==
LOC: EDUNIT# 17:42 → ER 17:44 → SDC 20:21 → ICU 22:20 → CSD 01-06 15:58
PROVIDERS: ADMIT Surgery; ATTEND Surgery
PROC: 0DB60ZZ Excision of Stomach, Open Approach (ICD-10-PCS; principal; 2022-12-21 21:02)
PROC: 5A09357 Assistance with Respiratory Ventilation, Less than 24 Consecutive Hours, Continuous Positive Airway Pressure (ICD-10-PCS; 2022-12-22)
PROC: 0D9670Z Drainage of Stomach with Drainage Device, Via Natural or Artificial Opening (ICD-10-PCS; 2022-12-23)
PROC: 5A0935A Assistance with Respiratory Ventilation, Less than 24 Consecutive Hours, High Flow/Velocity Cannula (ICD-10-PCS; 2022-12-23)
PROC: 5A1945Z Respiratory Ventilation, 24-96 Consecutive Hours (ICD-10-PCS; 2022-12-26)
PROC: 0BH17EZ Insertion of Endotracheal Airway into Trachea, Via Natural or Artificial Opening (ICD-10-PCS; 2022-12-26)
PROC: 5A12012 Performance of Cardiac Output, Single, Manual (ICD-10-PCS; 2022-12-26)
PROC: 02HV33Z Insertion of Infusion Device into Superior Vena Cava, Percutaneous Approach (ICD-10-PCS; 2022-12-26)
PROC: 3E0436Z Introduction of Nutritional Substance into Central Vein, Percutaneous Approach (ICD-10-PCS; 2023-01-09)
DX: K31.89 Other diseases of stomach and duodenum (principal); I46.9 Cardiac arrest, cause unspecified; J18.9 Pneumonia, unspecified organism; J96.21 Acute and chronic respiratory failure with hypoxia; F10.239 Alcohol dependence with withdrawal, unspecified; I50.22 Chronic systolic (congestive) heart failure; I42.0 Dilated cardiomyopathy; R44.3 Hallucinations, unspecified; K56.7 Ileus, unspecified; R57.9 Shock, unspecified; J95.851 Ventilator associated pneumonia; M96.A3 Multiple fractures of ribs associated with chest compression and cardiopulmonary resuscitation; K92.2 Gastrointestinal hemorrhage, unspecified; I48.21 Permanent atrial fibrillation; I11.0 Hypertensive heart disease with heart failure; J43.9 Emphysema, unspecified; R33.9 Retention of urine, unspecified; L89.159 Pressure ulcer of sacral region, unspecified stage; I25.10 Atherosclerotic heart disease of native coronary artery without angina pectoris; I27.20 Pulmonary hypertension, unspecified; E87.6 Hypokalemia; G47.30 Sleep apnea, unspecified; F17.210 Nicotine dependence, cigarettes, uncomplicated; E78.2 Mixed hyperlipidemia; Z99.81 Dependence on supplemental oxygen
CPT/HCPCS: 36415; 36569; 36600; 70450; 71045; 71260; 71275; 74018; 74019; 74175; 74176; 74177; 74250; 76937; 80048; 80053; 82565; 82805; 82947; 83690; 83735; 83874; 84100; 84134; 84478; 84484; 84520; 85007; 85025; 85027; 85610; 85730; 87070; 87077; 87081; 87186; 87205; 88307; 93005; 93041; 94002; 94003; 94640; 94660; 94760; 94799; 96374

== ENCOUNTER → 2022-12-21 | Outpatient (CLI) | payer MEDICARE ==
[~2022-12-21] MED LIST changes: +HYDR-700 PO; +IPRA3AMP31 IH; +LOSA-417 PO; +MAGN400T39 PO; +MTP25TSR PO; +PANT40TA52 PO; +POTA-169 PO; +SERT-412 PO
[2022-12-21 17:31] LABS: CREATININE SERUM 0.9 MG/DL (0.60-1.30)
== END ==
LOC: LAB 16:43
PROVIDERS: ATTEND Nurse Practitioner Family
DX: I71.40 Abdominal aortic aneurysm, without rupture, unspecified (principal); I50.9 Heart failure, unspecified; K59.09 Other constipation; L03.113 Cellulitis of right upper limb; J44.9 Chronic obstructive pulmonary disease, unspecified; L01.09 Other impetigo; B02.9 Zoster without complications
CPT/HCPCS: 36415; 82565; 84520